=== PATIENT | male | born 1965 | race Caucasian/White ===

== ENCOUNTER 2023-04-11 11:07 | Outpatient (OUT) | payer OTHER, SELFPAY ==
--- NOTE | 2023-04-11 11:24 | XR_ITS ---
The [place] [id number] Patient Name: VANDANA NASCIMENTO MRN: [id number] date: 1965 Sex: M Assigned Patient Location: [facility] Current Patient Location: [facility] Accession/Order Number: [id number] Exam Date: 04/11/2023 11:24 Report Date: 04/11/2023 13:48 At the request of: MELONIE RAZO Procedure: XR ankle GABE min 3V EXAMINATION: XR ankle GABE min 3V HISTORY: Bilateral ankle and foot pain M25.571, M25.572 COMPARISON: No relevant comparison available. FINDINGS: RIGHT FINDINGS: BONES: Prior plate and screw repair of the distal tibia involving the medial margin, lateral margin, and anterior margin of the tibial plafond. Fracture of one of the screws along the anterior tibial plafond. SOFT TISSUES: Prominent calcifications anterior to the tibial plafond; sequela of remote fractures versus heterotopic bone formation secondary to prior trauma. OTHER: Moderate soft tissue swelling surrounding the ankle and distal lower extremity. LEFT FINDINGS: BONES: No fracture, dislocation, bone lesion, or significant joint space narrowing. SOFT TISSUES: Soft tissue calcifications medial to the mid tibial diaphysis, likely sequela of remote injury. OTHER: Negative. IMPRESSION: RIGHT CONCLUSION: Prior surgical repair of the distal tibia with fracture of a single screw along the anterior margin of the tibial plafond. No appreciable acute bone abnormality. LEFT CONCLUSION: No acute bone abnormality or significant degenerative joint disease. Soft tissue calcifications are likely sequela of remote injury. Electronically authenticated by: ALVIN BELTRÁN Date: 04/11/2023 13:48
== END 2023-04-11 11:08 | disposition home or self-care (01) ==
LOC: RAD 11:11
PROVIDERS: PCP Family Medicine; Visit Provider Family Medicine
DX: M25.571 Pain in right ankle and joints of right foot (principal); M25.572 Pain in left ankle and joints of left foot; Z98.890 Other specified postprocedural states; Z96.7 Presence of other bone and tendon implants; T84.116A Breakdown (mechanical) of internal fixation device of bone of right lower leg, initial encounter; M79.89 Other specified soft tissue disorders
CPT/HCPCS: 73610

== ENCOUNTER 2023-05-21 16:54 | Inpatient (IN) | payer OTHER, SELFPAY ==
[2023-05-21 16:56] VITALS: BP 159/99; PULSE 76; RESP 18; TEMP 37.1; O2SAT 97; BMI 25.8
--- NOTE | 2023-05-21 17:45 | ED_ITS ---
HPI - Abdominal Pain General Chief Complaint: Abdominal Pain Stated Complaint: ABDOMINAL PAIN Time Seen by Provider: 05/21/23 17:10 Source: patient Mode of arrival: walk-in Limitations: no limitations History of Present Illness HPI narrative: lower abdominal pain started suddenly yesterday and was quickly associated with nausea without vomiting. Patient denied any diarrhea. He has abdominal bloating and only been passing small amounts of stool for the past 3 days. No flank pain or urinary symptoms. Related Data Home Medications Medication Instructions Recorded Confirmed apixaban 5 mg tablet (Eliquis) 5 mg PO Q12H 05/21/23 05/21/23 atorvastatin 10 mg tablet 10 mg PO DAILY 05/21/23 05/21/23 lacosamide 100 mg tablet 200 mg PO Q12H 05/21/23 05/21/23 lamotrigine 100 mg tablet 300 mg PO Q12H 05/21/23 05/21/23 levothyroxine 125 mcg tablet 125 mcg PO DAILY 05/21/23 05/21/23 (Synthroid) melatonin 5 mg capsule 5 mg PO BEDTIME 05/21/23 05/21/23 metoprolol tartrate 25 mg tablet 12.5 mg PO Q12H 05/21/23 05/21/23 mycophenolate mofetil 250 mg 750 mg PO DAILY 05/21/23 05/21/23 capsule paliperidone 1.5 mg 3 mg PO Q24H 05/21/23 05/21/23 tablet,extended release 24 hr prednisone 5 mg tablet 5 mg PO DAILY 05/21/23 05/21/23 tacrolimus 0.75 mg tablet,extended 3 mg PO DAILY 05/21/23 05/21/23 release 24 hr (Envarsus XR) Allergies Allergy/AdvReac Type Severity Reaction Status Date / Time phenytoin [From Dilantin] Allergy Severe Verified 05/21/23 17:00 Exam Narrative Exam Narrative: Nurses notes and vital signs reviewed and patient is not hypoxic. afebrile General: Well-appearing and in no apparent distress. Skin: Warm, dry, no pallor noted. Eye: Pupils are equal, round and EOMI. No scleral icterus. Ears, Nose, Mouth, and Throat: Oral mucosa is slightly dry Cardiovascular: Regular Rate and Rhythm without murmur, gallop or rub. Respiratory: No accessory muscle use or respiratory distress. Lungs are clear to auscultation, no wheezing, rales or rhonchi Back: No midline thoracic or lumbar vertebral tenderness. No CVA tenderness Musculoskeletal: normal ROM GI: Abdomen is soft, mildly distended. decreased bowel sounds. No masses appreciated. Diffuse lower abdominal tenderness to palpation. No rebound, guarding, or rigidity noted. Neurological: A&O x4. No cranial nerve dysfunction observed. No truncal ataxia. Moves all extremities. Sensation intact. Psychiatric: Cooperative and interactive. Normal mood and affect. Constitutional Vital Signs, click to edit/add: Last Vital Signs Temp 98.8 F 05/21/23 16:56 Pulse 76 05/21/23 16:56 Resp 18 05/21/23 16:56 BP 159/99 H 05/21/23 16:56 Pulse Ox 97 05/21/23 16:56 O2 Del Method Room Air 05/21/23 16:56 Course Vital Signs Vital signs: Vital Signs Temperature 98.8 F 05/21/23 16:56 Pulse Rate 76 05/21/23 16:56 Respiratory Rate 18 05/21/23 16:56 Blood Pressure 159/99 H 05/21/23 16:56 Pulse Oximetry 97 05/21/23 16:56 Oxygen Delivery Method Room Air 05/21/23 16:56 Temperature 98.8 F 05/21/23 16:56 Pulse Rate 76 05/21/23 16:56 Respiratory Rate 18 05/21/23 16:56 Blood Pressure 159/99 H 05/21/23 16:56 Pulse Oximetry 97 05/21/23 16:56 Oxygen Delivery Method Room Air 05/21/23 16:56 MDM - Abdominal Pain MDM Narrative Medical decision making narrative: peripheral IV established and blood drawn and sent for testing. Patient was ordered to undergo CT scanning of the abdomen and pelvis with both oral and IV contrast. He was ordered to receive Zofran and Toradol for his symptoms. the radiologist notified me the CT reveals a high-grade bowel obstruction. I spoke with Dr. Mcghee, the general surgeon on-call, regarding this patient's case. This patient previously underwent appendectomy, umbilical hernia repair and kidney transplantation, for which she continues to take medications for rejection. The patient's surgical and transplant care is through the [facility]. Case discussed with Dr Kerr and he agreed to admit on behalf of the hospitalist, Dr Beck - obs, med/surg. A consult was ordered for Dr Mcghee. Patient is agreeable to admission as results and diagnosis were discussed with the patient and his . Dr Lucero and I discussed the case and she will review the KUB once NG tube is placed Lab Data Attestation: I reviewed the patient's lab results. Labs: Lab Results 05/21/23 Range/Units 17:04 WBC 8.8 (4.0-11.0) 10^3/uL RBC 4.90 (4.70-6.10) 10^6/uL Hgb 14.8 (14.0-18.0) g/dL Hct 44.0 (42.0-54.0) % MCV 89.8 (80.0-94.0) fL MCH 30.2 (25.9-34.0) pg MCHC 33.6 (29.9-35.2) g/dL RDW 13.2 (11.0-15.0) % Plt Count 301 (150-450) 10^3/uL MPV 9.9 (9.5-13.5) fL Neut % (Auto) 68.0 (43.0-75.0) % Lymph % (Auto) 22.1 (20.5-60.0) % [place] % (Auto) 9.1 (1.7-12.0) % Eos % (Auto) 0.3 L (0.9-7.0) % Baso % (Auto) 0.2 (0.2-2.0) % Neut # (Auto) 6.0 (1.4-6.5) 10^3/uL Lymph # (Auto) 2.0 (1.2-3.8) 10^3/uL [place] # (Auto) 0.8 (0.3-0.8) 10^3/uL Eos # (Auto) 0.0 (0.0-0.7) 10^3/uL Baso # (Auto) 0.0 (0.0-0.1) 10^3/uL Abs Immat Gran (auto) 0.03 (0.00-0.03) 10^3/uL Imm/Tot Granulo (auto) 0.3 (0.0-0.5) % Sodium 139 (136-145) mmol/L Potassium 4.9 (3.5-5.1) mmol/L Chloride 102 (98-107) mmol/L Carbon Dioxide 29.4 (21.0-32.0) mmol/L Anion Gap 12.5 BUN 12.0 (7.0-18.0) mg/dL Creatinine 1.43 H (0.70-1.30) mg/dL Est GFR ( Amer) >60 (>=60) Est GFR (Non-Af Amer) 51 L (>=60) BUN/Creatinine Ratio 8.4 Glucose 125 H (74-106) mg/dL Calcium 9.9 (8.5-10.1) mg/dL Total Bilirubin 0.9 (0.2-1.0) mg/dL AST 39 H (15-37) U/L ALT 14 L (16-63) U/L Alkaline Phosphatase 98 (46-116) U/L Total Protein 7.5 (6.4-8.2) g/dL Albumin 3.8 (3.4-5.0) g/dL Globulin 3.7 g/dL Albumin/Globulin Ratio 1.0 Lipase 107.0 (73.0-393.0) U/L Imaging Data CT scan - abdomen: Radiologist's impression: Patient Name: VANDANA NASCIMENTO MRN: [id number] date: 1965 Sex: M Assigned Patient Location: Current Patient Location: Accession/Order Number: [id number] Exam Date: 05/21/2023 18:05 Report Date: 05/21/2023 18:51 At the request of: CARRIE BURT Procedure: CT abdomen pelvis w con EXAM: CT abdomen pelvis w con HISTORY: lower abdominal pain COMPARISON: None. TECHNIQUE: Axial CT imaging was performed through the abdomen and pelvis with intravenous contrast. Multiplanar reformats were performed. Dose reduction techniques were achieved by using automated exposure control and/or adjustment of mA and/or kV according to patient size and/or use of iterative reconstruction technique. FINDINGS: Lung bases: Trace bilateral pleural effusion with bibasilar atelectasis. Mild cardiomegaly. GI upper: Unremarkable. Liver: Normal size and contour. Gallbladder: No significant abnormality. No cholelithiasis. Biliary system: No intra or extrahepatic biliary ductal dilatation. Spleen: Normal size. Pancreas: Unremarkable. Adrenal glands: Normal adrenal glands. Kidneys/ureters: Atrophic kidneys, representing chronic renal failure. Transplant kidney seen in the right iliac fossa. No hydronephrosis. No nephrolithiasis or ureterolithiasis. Vessels: No aneurysm. Infrarenal IVC filter is in place. Status post left common iliac vein stent placement. Lymph Nodes: No lymphadenopathy. Small bowel: There is a transitional point in the mid abdomen (series 3, image 68) with upstream dilatation of the small bowel loops and twisting of the vessels especially superior mesenteric artery and vein (series 3, image [id number]), representing high-grade small bowel obstruction. Bowel wall enhancement is seen.. Colon: No wall thickening or dilatation. There are sigmoid diverticulosis without evidence of acute diverticulitis. Appendix: No findings of appendicitis. Peritoneal cavity: Small to moderate ascites. No pneumoperitoneum. Lower : Unremarkable. Bones: No acute bony abnormality. Soft tissues: No acute finding. Additional findings: None. IMPRESSION: CT evidence of high-grade small bowel obstruction with transitional point and twisted vessels in the mid abdomen. Small to moderate ascites Electronically authenticated by: J LUIS GUEVARA Date: 05/21/2023 18:51 Discharge Plan Discharge Chief Complaint: Abdominal Pain Clinical Impression: Small bowel obstruction Patient Disposition: Admitted as Observation Time of Disposition Decision: 17:00
[2023-05-21 17:59] LABS: Basophils Percent Auto 0.2 % (0.2-2.0); Eosinophils Percent Auto 0.3 % (0.9-7.0); Hemoglobin 14.8 g/dL (14.0-18.0); Immature Granulocytes Abs Auto 0.03 10^3/uL (0.00-0.03); Immature Granulocytes Pct Auto 0.3 % (0.0-0.5); Lymphocytes Percent Auto 22.1 % (20.5-60.0); Mean Corpuscular HGB Conc 33.6 g/dL (29.9-35.2); Mean Corpuscular Hemoglobin 30.2 pg (25.9-34.0); Mean Corpuscular Volume 89.8 fL (80.0-94.0); Mean Platelet Volume 9.9 fL (9.5-13.5); Monocytes Absolute Auto 0.8 10^3/uL (0.3-0.8); Monocytes Percent Auto 9.1 % (1.7-12.0); Platelet Count 301 10^3/uL (150-450); Red Cell Distribution Width 13.2 % (11.0-15.0); White Blood Count 8.8 10^3/uL (4.0-11.0)
[2023-05-21] MEDS: KETOROLAC TROMETHAMINE 30 MG/ML VIAL IVP (17:59)
[2023-05-21] MEDS: 0.9 % SODIUM CHLORIDE 1,000 ML 999 ML IV (17:59)
[2023-05-21] MEDS: ONDANSETRON PF 4 MG/2 ML VIAL IV (17:59)
[2023-05-21 18:10] LABS: Alanine Aminotransferase 14 U/L (16-63); Albumin Level 3.8 g/dL (3.4-5.0); Alkaline Phosphatase 98 U/L (46-116); Anion Gap 12.5; Aspartate Amino Transferase 39 U/L (15-37); BUN Creatinine Ratio 8.4; Bilirubin Total 0.9 mg/dL (0.2-1.0); Calcium 9.9 mg/dL (8.5-10.1); Carbon Dioxide 29.4 mmol/L (21.0-32.0); Chloride 102 mmol/L (98-107); Estimated GFR (African America >60 (>=60); Estimated GFR (Non-African Ame 51 (>=60); Globulin 3.7 g/dL; Glucose 125 mg/dL (74-106); Potassium 4.9 mmol/L (3.5-5.1); Sodium 139 mmol/L (136-145); Total Protein 7.5 g/dL (6.4-8.2)
--- NOTE | 2023-05-21 19:18 | XR_ITS ---
The [address] [address] Patient Name: VANDANA NASCIMENTO MRN: [id number] date: 1965 Sex: M Assigned Patient Location: ER Current Patient Location: ED.MAIN Accession/Order Number: [id number] Exam Date: 05/21/2023 19:30 Report Date: 05/21/2023 20:08 At the request of: CARRIE BURT Procedure: XR abdomen 1V EXAM: XR abdomen 1V HISTORY: ng tube placement COMPARISON: None. TECHNIQUE: AP portable study FINDINGS: The nasogastric tube tip is within the stomach. The sidehole is right at the diaphragmatic hiatus. XR/XR abdomen 1V IMPRESSION: The nasogastric tube tip is within the stomach. Advancing the tube approximately [address] the sidehole well into the stomach. Electronically authenticated by: Kiki MOY Date: 05/21/2023 20:08
[2023-05-21] MEDS: BENZOCAINE 20% SPRAY 57 GM SPRAY CAN MM (19:42)
[2023-05-21 19:56] VITALS: BP 133/83; PULSE 72; RESP 16; O2SAT 96
--- NOTE | 2023-05-21 20:38 | XR_ITS ---
The [address] [address] Patient Name: VANDANA NASCIMENTO MRN: [id number] date: 1965 Sex: M Assigned Patient Location: ER Current Patient Location: ER Accession/Order Number: [id number] Exam Date: 05/21/2023 20:40 Report Date: 05/21/2023 21:05 At the request of: LIA HUERTAS Procedure: XR abdomen 1V EXAM: XR abdomen 1V HISTORY: ng placement COMPARISON: None. TECHNIQUE: Single view FINDINGS: IMPRESSION: Enteric tube has been advanced further. The sidehole is now below the diaphragm. Distended air-filled loops of small bowel. Electronically authenticated by: AIXA HENRY Date: 05/21/2023 21:05
--- NOTE | 2023-05-21 20:43 | PC.NURSE ---
NG tube moved down 5cm at this time, NG tube now at 65 at right nare. Radiology at bedside for xray to check placement of NG since replacement.
[2023-05-21 21:57] VITALS: BP 142/82; PULSE 68; RESP 16; O2SAT 94; BMI 26.2
[2023-05-22] MEDS: ENOXAPARIN SODIUM 80 MG/0.8 ML SYRINGE SUBQ (01:29)
[2023-05-22] MEDS: LACTATED RINGER'S SOLUTION 1,000 ML 100 ML IV ×3 (01:30→23:40)
[2023-05-22 02:32] VITALS: BP 150/78; PULSE 80; RESP 16; TEMP 37.1; O2SAT 94
--- NOTE | 2023-05-22 03:22 | W.PM.TELEPN ---
Progress Note: Subjective Subjective Interval history: CC: Abdominal pain HPI: 58 year old male with history of Kidney transplant on immunosuppressants, appendectomy for ruptured appendix complicated by SBO NG tube decompression, Hernia repair, hypothyroidism, DVT s/p IVC filter L iliac stent on Pradaxa, Seizure disorder who presents with intractable mid abdominal pain, started yesterday 3 pm, severe, radiating throughout abdomen, worse with food intake, no alleviating factors associated with nausea and vomiting. felt feverish with chills this morning, denies aspiration, cough, dysuria had lose stool. denies chest pain, dyspnea. in the ER, temp 100.6 HR 68, BP 142/82, RR 16, Sp02 95% room air. labs near baseline, CT A/P suggest SBO. Patient was given Toradol, Zofran, IV fluids. Surgery consulted recommended NG tube decompression for now. ROS: all ROS negative except for HPI Allergies: Dilantin Home Meds: reviewed and reconciled in chart PMHx: Seizure, Hypothyroid, Kidney transplant, CKD, DVT PSHx: hernia repair, appendectomy, Kidney transplan, Collapsed lung R ear plate, R wrist and ankle fracture repair SHx: denies tobacco, etoh or drug use. Lives with Exam Narrative Exam Narrative: General: sitting up in bed, in mild distress, AO x3 HEENT: NC/AT, wearing eyeglasses, NG tube in place CVS: RRR, no edema Lungs: bilateral air entry, normal respiratory effort GI: abdomen distended, tender, no rebound Neuro: no focal deficits Psych: normal mood good affect Constitutional Vital Signs, click to edit/add: Last Vital Signs Temp 98.7 F 05/22/23 02:32 Pulse 80 05/22/23 02:32 Resp 16 05/22/23 02:32 BP 150/78 H 05/22/23 02:32 Pulse Ox 94 L 05/22/23 02:32 O2 Del Method Room Air 05/22/23 02:32 Progress Note: Objective Labs Labs: Short CBC 05/21/23 Range/Units 17:04 WBC 8.8 (4.0-11.0) 10^3/uL Hgb 14.8 (14.0-18.0) g/dL Hct 44.0 (42.0-54.0) % Plt Count 301 (150-450) 10^3/uL BMP 05/21/23 17:04 Sodium 139 Potassium 4.9 Chloride 102 Carbon Dioxide 29.4 BUN 12.0 Creatinine 1.43 H Glucose 125 H Calcium 9.9 Liver Function 05/21/23 Range/Units 17:04 Total Bilirubin 0.9 (0.2-1.0) mg/dL AST 39 H (15-37) U/L ALT 14 L (16-63) U/L Alkaline Phosphatase 98 (46-116) U/L Albumin 3.8 (3.4-5.0) g/dL Progress Note: A&P Assessment and Plan (1) Small bowel obstruction: Plan # Small bowel obstruction, suspect due to adhesions - Admit to med surg bed - NG tube decompression, encourage ambulation - 1,000 cc out in ED, and since midnight another 1L for total 2L output - IV fluid hydration - analgesics and antiemetics as needed - serial abdominal exams - KUB in am - Surgery notified by ED, on board #Renal transplant/CKD # Immunosuppressed status - fluid hydration, resume home antirejection medications, consider IV steroids if unable to give home antirejection's - reported subjective fevers. check blood cultures, low threshold for antibiotics for any fevers #Hx of DVT s/p iliac stent, IVC filter on Pradaxa - Lovenox for now as patient NPO # Seizure disorder - Transition Vimpat oral to IV route - Ativan prn - seizure precautions - avoid medications that lower seizure threshold # Hypothyroidism- resume home synthroid # hypercholesterolemia- home statin when on diet # hypertension- monitor vitals closely, holding lopressor 12.5 BID for now FULL CODE DVT PPX Lovenox Communications: Discussed with ER physician, bedside nurse. patient updated with plan of care, all questions answered to their satisfaction disposition: home when medically st ADDENDUM: Nurse reports gastric content now with green maroon color - Rule out GI bleed. hold lovenox, anticoagulants, check H/H start IV Protonix Telemedicine Attestation Telemedicine Attestation I conducted this encounter from [[place]] via secure live, [id number] video conference with the patient, located at [facility] with [Patient and treatment team]. Prior to the interview, the risks and benefits of telemedicine were discussed with the patient and verbal consent was obtained.
[2023-05-22] MEDS: PANTOPRAZOLE SODIUM 40 MG VIAL IV ×2 (04:18→14:35)
[2023-05-22 04:34] LABS: Basophils Percent Auto 0.4 % (0.2-2.0); Eosinophils Absolute Auto 0.1 10^3/uL (0.0-0.7); Eosinophils Percent Auto 1.8 % (0.9-7.0); Hematocrit 38.8 % (42.0-54.0); Immature Granulocytes Abs Auto 0.02 10^3/uL (0.00-0.03); Immature Granulocytes Pct Auto 0.3 % (0.0-0.5); Lymphocytes Absolute Auto 2.9 10^3/uL (1.2-3.8); Lymphocytes Percent Auto 36.5 % (20.5-60.0); Mean Corpuscular HGB Conc 33.5 g/dL (29.9-35.2); Mean Corpuscular Hemoglobin 30.2 pg (25.9-34.0); Mean Platelet Volume 9.4 fL (9.5-13.5); Monocytes Absolute Auto 0.9 10^3/uL (0.3-0.8); Monocytes Percent Auto 11.3 % (1.7-12.0); Neutrophils Absolute Auto 3.9 10^3/uL (1.4-6.5); Neutrophils Percent Auto 49.7 % (43.0-75.0); Platelet Count 248 10^3/uL (150-450); Red Blood Count 4.31 10^6/uL (4.70-6.10); Red Cell Distribution Width 13.1 % (11.0-15.0); White Blood Count 7.8 10^3/uL (4.0-11.0)
[2023-05-22 05:03] LABS: Albumin Globulin Ratio 1.1; Albumin Level 3.2 g/dL (3.4-5.0); Alkaline Phosphatase 86 U/L (46-116); Anion Gap 9.5; Aspartate Amino Transferase 12 U/L (15-37); BUN Creatinine Ratio 9.8; Bilirubin Total 0.8 mg/dL (0.2-1.0); Calcium 9.4 mg/dL (8.5-10.1); Chloride 105 mmol/L (98-107); Estimated GFR (African America 53 (>=60); Estimated GFR (Non-African Ame 44 (>=60); Glucose 91 mg/dL (74-106); Potassium 3.5 mmol/L (3.5-5.1); Sodium 142 mmol/L (136-145); Total Protein 6.2 g/dL (6.4-8.2)
[2023-05-22 05:17] LABS: Alanine Aminotransferase 15 U/L (16-63)
[2023-05-22] MEDS: NON-FORMULARY 1 EACH (Mycophenolate Mofetil 250 mg capsule) 750 EACH PO ×2 (10:14→22:19)
[2023-05-22] MEDS: PREDNISONE 5 MG TABLET PO (10:15)
[2023-05-22] MEDS: TACROLIMUS 1 MG PO (10:16)
[2023-05-22] MEDS: FAMOTIDINE/PF 20 MG/2 ML VIAL IV ×2 (10:25→22:19)
--- NOTE | 2023-05-22 11:54 | PM.HP ---
H&P: HPI History of Present Illness Chief complaint: Abdominal pain Narrative: 58 y/o male to ER with abdominal pain. History of kidney transplant and follows with specialists. Sudden onset of pain yesterday. Pain and cramping across lower abdomen. Severe nausea and later developed emesis. Abdomen felt bloated and distended. Reports only small BM past few days. Afebrile. Increased pain and to ER. Afebrile and normal WBC. CT showed SBO and NG placed. Admitted for treatment. Symptoms improved this am. Mild pain and no further nausea. Given PO medication this am and NG clamped for past 2 hours. Review of Systems ROS Constitutional Denies: fever, chills or night sweats Cardiovascular Denies: chest pain, palpitations or edema Respiratory Denies: shortness of breath, cough or wheezing Gastrointestinal Reports: abdominal pain, nausea and vomiting; Denies: diarrhea Genitourinary Denies: painful urination [facility] Medical History (Updated 05/22/23 @ 10:11 by Wenceslao Beck MD) Surgical History (Updated 05/22/23 @ 10:11 by Wenceslao Beck MD) Family History (Updated 05/21/23 @ 22:43 by Maryana King) Father Family history of cancer Family history of hypertension Mother Family history of COPD (chronic obstructive pulmonary disease) Social History (Updated 05/21/23 @ 22:45 by Maryana King) Within the past year, how often did you have a drink containing alcohol: never Within the past year, how often did you have six or more drinks on one occasion: never Score interpretation: A score less than 4 is consistent with normal alcohol consumption. 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 [employer] Known occupational exposures/hazards: No Highest level of school completed/degree received: Bachelor's degree Do you want help with school or training: No Are you now , , , , never or living with a partner: In a typical week, how many times do you talk on the telephone with family, friends, or neighbors: 3 or more times per week How often do you get together with friends or relatives: 3 or more times per week How often do you attend episcopalian or mormonism services: 4 or more times per year Do you belong to any clubs or organizations such as episcopalian groups unions, fraternal or athletic groups, or school groups: no Total score: 3 Score interpretation: A score of greater than or equal to 2 indicates the lowest level of social isolation. Little interest or pleasure in doing things: not at all Feeling down, depressed, or hopeless: not at all Feel stressed/tense/nervous/anxious/difficulty sleeping: not at all Due to disability, difficulty making decisions: No Do you think of yourself as: straight/heterosexual Gender Identity: male Meds Home Medications and Allergies Home Medications Medication Instructions Recorded Confirmed Type apixaban 5 mg tablet (Eliquis) 5 mg PO Q12H 05/21/23 05/21/23 History atorvastatin 10 mg tablet 10 mg PO DAILY 05/21/23 05/21/23 History lacosamide 100 mg tablet 200 mg PO Q12H 05/21/23 05/21/23 History lamotrigine 100 mg tablet 300 mg PO Q12H 05/21/23 05/21/23 History levothyroxine 125 mcg tablet 125 mcg PO DAILY 05/21/23 05/21/23 History (Synthroid) melatonin 5 mg capsule 5 mg PO BEDTIME 05/21/23 05/21/23 History metoprolol tartrate 25 mg tablet 12.5 mg PO Q12H 05/21/23 05/21/23 History mycophenolate mofetil 250 mg 750 mg PO Q12H 05/21/23 05/22/23 History capsule prednisone 5 mg tablet 5 mg PO DAILY 05/21/23 05/21/23 History tacrolimus 0.75 mg tablet,extended 1.5 mg PO DAILY 05/21/23 05/22/23 History release 24 hr (Envarsus XR) paliperidone 3 mg tablet,extended 3 mg PO DAILY 05/22/23 05/22/23 History release 24 hr tacrolimus 1 mg tablet,extended 1 mg PO DAILY 05/22/23 05/22/23 History release 24 hr (Envarsus XR) Allergies Allergy/AdvReac Type Severity Reaction Status Date / Time phenytoin [From Dilantin] Allergy Severe Verified 05/21/23 17:00 Exam Constitutional Vital Signs, click to edit/add: Last Vital Signs Temp 98.7 F 05/22/23 02:32 Pulse 80 05/22/23 02:32 Resp 16 05/22/23 02:32 BP 150/78 H 05/22/23 02:32 Pulse Ox 94 L 05/22/23 02:32 O2 Del Method Room Air 05/22/23 02:32 Documenting provider has reviewed patient's vital signs: yes Common normals: no apparent distress, oriented x3 and alert HENMT Common normals: normocephalic Eye Common normals: PERRL and EOMs intact bilaterally Respiratory Common normals: normal respiratory effort and clear to auscultation bilaterally Cardio Common normals: regular rate, regular rhythm, no gallops, no murmurs and no rub GI Auscultation: normoactive bowel sounds Palpation: soft and tender (Mild TTP across lower abdomen); no guarding Extremity Common normals: no pedal edema Results Labs Labs: Short CBC 05/21/23 05/22/23 Range/Units 17:04 03:30 WBC 8.8 7.8 (4.0-11.0) 10^3/uL Hgb 14.8 13.0 L (14.0-18.0) g/dL Hct 44.0 38.8 L (42.0-54.0) % Plt Count 301 248 (150-450) 10^3/uL BMP 05/21/23 05/22/23 17:04 03:30 Sodium 139 142 Potassium 4.9 3.5 Chloride 102 105 Carbon Dioxide 29.4 31.0 BUN 12.0 16.0 Creatinine 1.43 H 1.63 H Glucose 125 H 91 Calcium 9.9 9.4 Liver Function 05/21/23 05/22/23 Range/Units 17:04 03:30 Total Bilirubin 0.9 0.8 (0.2-1.0) mg/dL AST 39 H 12 L (15-37) U/L ALT 14 L 15 L (16-63) U/L Alkaline Phosphatase 98 86 (46-116) U/L Albumin 3.8 3.2 L (3.4-5.0) g/dL Imaging CT scan - abdomen: Attestation: I have reviewed the pertinent imaging results. Assessment and Plan Assessment and Plan (1) Small bowel obstruction: (2) HTN (hypertension): (3) Kidney transplanted: (4) Seizure disorder: (5) History of DVT (deep vein thrombosis): Plan Consult general surgery. Symptoms improved after NG placement and currently clamped. Check x-ray small bowel. Resumed some oral medication and if appears SBO resolved can resume all home medication. Further plan per surgery. May be able to try clear liquids if contrast goes to colon. Will need 2 midnights in the hospital.
--- NOTE | 2023-05-22 12:29 | PM.GSCN ---
History of Present Illness Consult details Consult date: 05/22/23 Narrative: Patient is a 58-year-old male who presented to the emergency department yesterday with complaints of abdominal pain nausea and vomiting. Past surgical history significant for kidney transplant as well as hernia repair and aortoiliac stenting. He denies any similar prior episodes. Through the Emergency Department CT of the abdomen and pelvis revealed findings consistent with a high-grade small bowel obstruction. NG tube was placed with initial significant output. This has diminished and currently the patient denies any pain. NG tube is currently clamped and small bowel follow-through has been ordered. Review of Systems ROS Status of ROS 10 or more systems reviewed and unremarkable except as noted in history and below [facility] Medical History (Updated 05/22/23 @ 10:11 by Wenceslao Beck MD) Surgical History (Updated 05/22/23 @ 10:11 by Wenceslao Beck MD) Family History (Updated 05/21/23 @ 22:43 by Maryana King) Father Family history of cancer Family history of hypertension Mother Family history of COPD (chronic obstructive pulmonary disease) Social History (Updated 05/21/23 @ 22:45 by Maryana King) Within the past year, how often did you have a drink containing alcohol: never Within the past year, how often did you have six or more drinks on one occasion: never Score interpretation: A score less than 4 is consistent with normal alcohol consumption. Smoking status: Never smoker Second hand tobacco smoke exposure: No Non-prescribed substance use: denies use Previous occupational history: [employer] Known occupational exposures/hazards: No Highest level of school completed/degree received: Bachelor's degree Do you want help with school or training: No Are you now , , , , never or living with a partner: In a typical week, how many times do you talk on the telephone with family, friends, or neighbors: 3 or more times per week How often do you get together with friends or relatives: 3 or more times per week How often do you attend advent or hoahaoism services: 4 or more times per year Do you belong to any clubs or organizations such as advent groups unions, fraternal or athletic groups, or school groups: no Total score: 3 Score interpretation: A score of greater than or equal to 2 indicates the lowest level of social isolation. Little interest or pleasure in doing things: not at all Feeling down, depressed, or hopeless: not at all Feel stressed/tense/nervous/anxious/difficulty sleeping: not at all Due to disability, difficulty making decisions: No Do you think of yourself as: straight/heterosexual Gender Identity: male Meds Home Medications and Allergies Home Medications Medication Instructions Recorded Confirmed Type apixaban 5 mg tablet (Eliquis) 5 mg PO Q12H 05/21/23 05/21/23 History atorvastatin 10 mg tablet 10 mg PO DAILY 05/21/23 05/21/23 History lacosamide 100 mg tablet 200 mg PO Q12H 05/21/23 05/21/23 History lamotrigine 100 mg tablet 300 mg PO Q12H 05/21/23 05/21/23 History levothyroxine 125 mcg tablet 125 mcg PO DAILY 05/21/23 05/21/23 History (Synthroid) melatonin 5 mg capsule 5 mg PO BEDTIME 05/21/23 05/21/23 History metoprolol tartrate 25 mg tablet 12.5 mg PO Q12H 05/21/23 05/21/23 History mycophenolate mofetil 250 mg 750 mg PO Q12H 05/21/23 05/22/23 History capsule prednisone 5 mg tablet 5 mg PO DAILY 05/21/23 05/21/23 History tacrolimus 0.75 mg tablet,extended 1.5 mg PO DAILY 05/21/23 05/22/23 History release 24 hr (Envarsus XR) paliperidone 3 mg tablet,extended 3 mg PO DAILY 05/22/23 05/22/23 History release 24 hr tacrolimus 1 mg tablet,extended 1 mg PO DAILY 05/22/23 05/22/23 History release 24 hr (Envarsus XR) Allergies Allergy/AdvReac Type Severity Reaction Status Date / Time phenytoin [From Dilantin] Allergy Severe Verified 05/21/23 17:00 Exam Constitutional Vital Signs, click to edit/add: Last Vital Signs Temp 98.7 F 05/22/23 02:32 Pulse 80 05/22/23 02:32 Resp 16 05/22/23 02:32 BP 150/78 H 05/22/23 02:32 Pulse Ox 94 L 05/22/23 02:32 O2 Del Method Room Air 05/22/23 02:32 Common normals: no apparent distress General appearance: cooperative [facility] Common normals: normocephalic Neck & C-Spine Common normals: supple Lymph Lymphatic: no lymphadenopathy noted GI Common normals: Normal to inspection, nondistended, normoactive bowel sounds present, soft to palpation and non-tender Extremity Common normals: normal to inspection Neuro Common normals: oriented x3 Psych Common normals: mental status grossly normal Results Labs Labs: Abnormal lab results 05/21/23 05/22/23 Range/Units 17:04 03:30 RBC 4.31 L (4.70-6.10) 10^6/uL Hgb 13.0 L (14.0-18.0) g/dL Hct 38.8 L (42.0-54.0) % MPV 9.4 L (9.5-13.5) fL Eos % (Auto) 0.3 L (0.9-7.0) % [place] # (Auto) 0.9 H (0.3-0.8) 10^3/uL Creatinine 1.43 H 1.63 H (0.70-1.30) mg/dL Est GFR ( Amer) 53 L (>=60) Est GFR (Non-Af Amer) 51 L 44 L (>=60) Glucose 125 H (74-106) mg/dL AST 39 H 12 L (15-37) U/L ALT 14 L 15 L (16-63) U/L Total Protein 6.2 L (6.4-8.2) g/dL Albumin 3.2 L (3.4-5.0) g/dL Diabetes panel 05/21/23 05/22/23 Range/Units 17:04 03:30 Sodium 139 142 (136-145) mmol/L Potassium 4.9 3.5 (3.5-5.1) mmol/L Chloride 102 105 (98-107) mmol/L Carbon Dioxide 29.4 31.0 (21.0-32.0) mmol/L BUN 12.0 16.0 (7.0-18.0) mg/dL Creatinine 1.43 H 1.63 H (0.70-1.30) mg/dL Glucose 125 H 91 (74-106) mg/dL Calcium 9.9 9.4 (8.5-10.1) mg/dL AST 39 H 12 L (15-37) U/L ALT 14 L 15 L (16-63) U/L Alkaline Phosphatase 98 86 (46-116) U/L Total Protein 7.5 6.2 L (6.4-8.2) g/dL Albumin 3.8 3.2 L (3.4-5.0) g/dL Calcium panel 05/21/23 05/22/23 Range/Units 17:04 03:30 Calcium 9.9 9.4 (8.5-10.1) mg/dL Albumin 3.8 3.2 L (3.4-5.0) g/dL Pituitary panel 05/21/23 05/22/23 Range/Units 17:04 03:30 Sodium 139 142 (136-145) mmol/L Potassium 4.9 3.5 (3.5-5.1) mmol/L Chloride 102 105 (98-107) mmol/L Carbon Dioxide 29.4 31.0 (21.0-32.0) mmol/L BUN 12.0 16.0 (7.0-18.0) mg/dL Creatinine 1.43 H 1.63 H (0.70-1.30) mg/dL Glucose 125 H 91 (74-106) mg/dL Calcium 9.9 9.4 (8.5-10.1) mg/dL Adrenal panel 05/21/23 05/22/23 Range/Units 17:04 03:30 Sodium 139 142 (136-145) mmol/L Potassium 4.9 3.5 (3.5-5.1) mmol/L Chloride 102 105 (98-107) mmol/L Carbon Dioxide 29.4 31.0 (21.0-32.0) mmol/L BUN 12.0 16.0 (7.0-18.0) mg/dL Creatinine 1.43 H 1.63 H (0.70-1.30) mg/dL Glucose 125 H 91 (74-106) mg/dL Calcium 9.9 9.4 (8.5-10.1) mg/dL Total Bilirubin 0.9 0.8 (0.2-1.0) mg/dL AST 39 H 12 L (15-37) U/L ALT 14 L 15 L (16-63) U/L Alkaline Phosphatase 98 86 (46-116) U/L Total Protein 7.5 6.2 L (6.4-8.2) g/dL Albumin 3.8 3.2 L (3.4-5.0) g/dL All other labs normal. Imaging Abdomen CT scan report/results: image reviewed Assessment and Plan Assessment and Plan (1) Small bowel obstruction: Assessment and Plan: With the above findings we will leave the NG tube clamped. We will await the results of the small bowel follow through although clinically the patient appears significantly improved and possibly resolved the small bowel obstruction. If imaging is unremarkable may discontinue NG tube and initiate clear liquids. (2) HTN (hypertension): (3) Kidney transplanted: (4) Seizure disorder: (5) History of DVT (deep vein thrombosis):
--- NOTE | 2023-05-22 12:45 | FL_ITS ---
The [address] [address] Patient Name: VANDANA NASCIMENTO MRN: [id number] date: 1965 Sex: M Assigned Patient Location: ICU Current Patient Location: ICU Accession/Order Number: [id number] Exam Date: 05/22/2023 13:00 Report Date: 05/22/2023 16:46 At the request of: GENIE WALDRON Procedure: FL small bowel EXAM: FL small bowel HISTORY: SBO COMPARISON: 05/21/2023 TECHNIQUE: Abdominal X-ray, 1 view FINDINGS: Support devices: IVC filter is seen at L2-L3 level. Status post left common iliac vein stent placement. Bowel: Oral contrast is seen throughout the small bowel loops. No significant interval change in the small bowel loop distention. Additional findings: None. FL/FL small bowel IMPRESSION: Oral contrast is seen throughout the small bowel loops. No significant interval change in the small bowel loop distention. Follow-up is recommended. Electronically authenticated by: J LUIS GUEVARA Date: 05/22/2023 16:46
[2023-05-22 14:40] VITALS: BP 129/83; PULSE 62; RESP 16; TEMP 36.4; O2SAT 97
[2023-05-22 22:00] VITALS: BP 148/85; PULSE 73; TEMP 36.9; O2SAT 95
[2023-05-22] MEDS: ENOXAPARIN SODIUM 40 MG/0.4 ML SYRINGE SUBQ (22:19)
[2023-05-23] MEDS: PANTOPRAZOLE SODIUM 40 MG VIAL IV (03:00)
--- NOTE | 2023-05-23 04:00 | XR_ITS ---
The [place] [id number] Patient Name: VANDANA NASCIMENTO MRN: [id number] date: 1965 Sex: M Assigned Patient Location: MS Current Patient Location: MS Accession/Order Number: [id number] Exam Date: 05/23/2023 05:40 Report Date: 05/23/2023 06:28 At the request of: GENIE WALDRON Procedure: XR abdomen min 2V EXAMINATION: XR abdomen min 2V HISTORY: SBO COMPARISON: Fluoroscopy small bowel series 05/22/2023 FINDINGS: BOWEL GAS PATTERN: Oral contrast is passed through the entire small bowel and is present within the colon extending to level of rectum. Several diverticula involving the sigmoid colon. No abnormal bowel dilation, obstruction, or extravasation. CALCIFICATIONS: None significant. OTHER: Nasogastric tube within fundus of stomach. Endovascular stent within the left common and external iliac vein. XR/XR abdomen min 2V IMPRESSION: 1. No bowel obstruction. 2. Mild diverticulosis. Electronically authenticated by: ALVIN BELTRÁN Date: 05/23/2023 06:28
[2023-05-23 04:57] LABS: Basophils Percent Auto 0.5 % (0.2-2.0); Eosinophils Absolute Auto 0.2 10^3/uL (0.0-0.7); Eosinophils Percent Auto 3.6 % (0.9-7.0); Hematocrit 38.7 % (42.0-54.0); Hemoglobin 12.5 g/dL (14.0-18.0); Immature Granulocytes Abs Auto 0.02 10^3/uL (0.00-0.03); Immature Granulocytes Pct Auto 0.3 % (0.0-0.5); Lymphocytes Absolute Auto 2.8 10^3/uL (1.2-3.8); Lymphocytes Percent Auto 41.3 % (20.5-60.0); Mean Corpuscular HGB Conc 32.3 g/dL (29.9-35.2); Mean Corpuscular Hemoglobin 30.1 pg (25.9-34.0); Mean Corpuscular Volume 93.3 fL (80.0-94.0); Mean Platelet Volume 10.7 fL (9.5-13.5); Monocytes Absolute Auto 0.7 10^3/uL (0.3-0.8); Monocytes Percent Auto 10.1 % (1.7-12.0); Neutrophils Percent Auto 44.2 % (43.0-75.0); Platelet Count 132 10^3/uL (150-450); Red Blood Count 4.15 10^6/uL (4.70-6.10); Red Cell Distribution Width 12.9 % (11.0-15.0); White Blood Count 6.7 10^3/uL (4.0-11.0)
[2023-05-23 05:13] LABS: Alanine Aminotransferase 12 U/L (16-63); Albumin Globulin Ratio 0.9; Albumin Level 2.8 g/dL (3.4-5.0); Alkaline Phosphatase 82 U/L (46-116); Anion Gap 11.1; Aspartate Amino Transferase 20 U/L (15-37); Calcium 8.8 mg/dL (8.5-10.1); Carbon Dioxide 26.8 mmol/L (21.0-32.0); Chloride 105 mmol/L (98-107); Estimated GFR (African America >60 (>=60); Estimated GFR (Non-African Ame 50 (>=60); Globulin 3.2 g/dL; Glucose 78 mg/dL (74-106); Potassium 3.9 mmol/L (3.5-5.1); Sodium 139 mmol/L (136-145)
[2023-05-23] MEDS: LEVOTHYROXINE SODIUM 125 MCG TABLET PO (05:32)
[2023-05-23 05:36] VITALS: BP 144/80; PULSE 64; TEMP 37.1; O2SAT 92
[2023-05-23 08:00] VITALS: RESP 16
[2023-05-23] MEDS: FAMOTIDINE/PF 20 MG/2 ML VIAL IV (08:30)
[2023-05-23] MEDS: APIXABAN 5 MG TABLET PO (09:30)
[2023-05-23] MEDS: METOPROLOL TARTRATE 25 MG TABLET 12.5 MG PO (09:31)
[2023-05-23] MEDS: LAMOTRIGINE 100 MG TABLET 300 MG PO (09:31)
[2023-05-23] MEDS: NON-FORMULARY 1 EACH (Mycophenolate Mofetil 250 mg capsule) 750 EACH PO (09:32)
[2023-05-23] MEDS: PREDNISONE 5 MG TABLET PO (09:33)
[2023-05-23] MEDS: TACROLIMUS 1 MG PO (09:34)
[2023-05-23] MEDS: LACOSAMIDE 50 MG TABLET 200 MG PO (10:33)
--- NOTE | 2023-05-23 10:49 | P.DS_ITS ---
DS: Providers Provider Date of admission: 05/21/23 21:37 Primary care physician: Saima Walsh MD Consults: 05/21/23 19:17 Consult to General Surgeon Routine Consulting Provider: Rogerio Mcghee Attending physician on discharge: Shaikh Magaly Discharging clinician: Shaikh Magaly DS: Diagnosis Discharge Diagnosis (1) Small bowel obstruction: Assessment and plan: Resolved with conservative measures. XR Small bowel showed resolution of SBO. Tolerating liquid diet. Denies nausea/vomiting. No BM yet but passing gas. Stable for discharge. (2) HTN (hypertension): Assessment and plan: At goal. C/w home medications (3) Kidney transplanted: Assessment and plan: s/p renal transplant. C/w immunosuppresion as before. (4) Seizure disorder: Assessment and plan: Poorly controlled. Being scheduled for outpatient Frontal lobectomy at [facility]. (5) History of DVT (deep vein thrombosis): Assessment and plan: On Eliquis for AC. c/w same (6) CKD (chronic kidney disease) stage 3, GFR 30-59 ml/min: Assessment and plan: CKD 3 after renal transplant. Cr at baseline. Monitor. (7) Hyperlipemia: Assessment and plan: C/w statin (8) Hypothyroid: Assessment and plan: C/w levothyroxine DS: Summary Hospital Course Hospital Course: Patient admitted for SBO. Started on NGT with intermittent suction. Symptoms managed conservatively. Received anti emetics, IV fluids. XR abdominal series from this morning - showed resolution of SBO. Passing gas and has no GI symptoms to offer today. Patient tolerated liquid diet and doing well. Remove NGT. Patient educated on signs and symptoms that should prompt him to seek medical care. Stable for discharge. Status at Discharge Functional status at discharge: independent ambulation Overall status at discharge: patient is back to baseline Time Spent with Patient Time attestation: Total time spent providing and/or coordinating discharge services: Time spent: greater than 30 minutes Exam Constitutional Vital Signs, click to edit/add: Last Vital Signs Temp 98.7 F 05/23/23 05:36 Pulse 64 05/23/23 05:36 Resp 16 05/23/23 08:00 BP 144/80 H 05/23/23 05:36 Pulse Ox 92 L 05/23/23 05:36 O2 Del Method Room Air 05/23/23 05:36 Documenting provider has reviewed patient's vital signs: yes Common normals: no apparent distress and oriented x3 HENMT Common normals: normocephalic and head/scalp atraumatic Head and scalp: normocephalic and atraumatic Eye Common normals: conjunctivae normal and no scleral icterus Conjunctiva: conjunctiva(e) normal Respiratory Common normals: normal respiratory effort and clear to auscultation bilaterally Auscultation: clear to auscultation bilaterally Cardio Common normals: regular rate, regular rhythm, S1 normal heart sound and S2 normal heart sound Rate: regular rate Rhythm: regular rhythm Heart sounds: S1 normal and S2 normal GI Common normals: Normal to inspection, nondistended, normoactive bowel sounds present, soft to palpation, non-tender and no hepatosplenomegaly Palpation: soft and no hepatosplenomegaly Extremity Common normals: no clubbing, cyanosis or edema Neuro Common normals: oriented x3, moves all extremities, no focal motor deficits and no sensory deficits noted Psych Psychiatry clinicians, please identify where your Mental Status Exam is documented: Mental Status Exam documented in the separate MSE Common normals: mental status grossly normal, thought process normal, denies hallucinations, denies homicidal ideation and denies suicidal ideation Thought process: normal thought process DS: Data Data Completed and Pending Labs on day of discharge: Labs from last 24 hours 05/23/23 04:29 WBC 6.7 RBC 4.15 L Hgb 12.5 L Hct 38.7 L MCV 93.3 MCH 30.1 MCHC 32.3 RDW 12.9 Plt Count 132 L MPV 10.7 Neut % (Auto) 44.2 Lymph % (Auto) 41.3 [place] % (Auto) 10.1 Eos % (Auto) 3.6 Baso % (Auto) 0.5 Neut # (Auto) 3.0 Lymph # (Auto) 2.8 [place] # (Auto) 0.7 Eos # (Auto) 0.2 Baso # (Auto) 0.0 Abs Immat Gran (auto) 0.02 Imm/Tot Granulo (auto) 0.3 Sodium 139 Potassium 3.9 Chloride 105 Carbon Dioxide 26.8 Anion Gap 11.1 BUN 19.0 H Creatinine 1.46 H Est GFR ( Amer) >60 Est GFR (Non-Af Amer) 50 L BUN/Creatinine Ratio 13.0 Glucose 78 Calcium 8.8 Total Bilirubin 1.0 AST 20 ALT 12 L Alkaline Phosphatase 82 Total Protein 6.0 L Albumin 2.8 L Globulin 3.2 Albumin/Globulin Ratio 0.9 Discharge Plan Discharge Disposition: Home, Self-Care Discharge Medications: Continued Eliquis 5 mg tablet 5 mg PO Q12H atorvastatin 10 mg tablet 10 mg PO DAILY lacosamide 100 mg tablet 200 mg PO Q12H lamotrigine 100 mg tablet 300 mg PO Q12H levothyroxine [Synthroid] 125 mcg tablet 125 mcg PO DAILY metoprolol tartrate 25 mg tablet 12.5 mg PO Q12H mycophenolate mofetil 250 mg capsule 750 mg PO Q12H Rx Instructions: Q12HRS PER RETAIL FILL HX - LAST FILLED 04/06/23 #180 FOR A 30 DAY SUPPLY prednisone 5 mg tablet 5 mg PO DAILY Envarsus XR 0.75 mg tablet extended release 24 hr 1.5 mg PO DAILY Patient Comments: BROUGHT IN PATIENTS MEDICATIONS - PER RX BOTTLE 2 TABS PO Q24HRS melatonin 5 mg capsule 5 mg PO BEDTIME Envarsus XR 1 mg tablet extended release 24 hr 1 mg PO DAILY Patient Comments: BROUGTH IN PATIENT MEDS - PER BOTTLE 1 TAB PO Q24HRS Rx Instructions: must be taken on empty stomach paliperidone 3 mg tablet extended release 24hr 3 mg PO DAILY Patient Comments: BROUGHT IN PATIENT MEDS - PER BOTTLE 3MG (1TAB) PO QD Forms: Portal Instructions
--- NOTE | 2023-05-23 11:32 | CM.NOTE ---
Rounds made with , pt ok for discharge to home today. Script written for walker and pt in agreement for HH. Pt also will go to daughter's house at discharge for more assistance.
--- NOTE | 2023-05-23 11:36 | CM.NOTE ---
Rounds made with Dr. Mckenzie, increase diet today and if pt tolerates diet may discharge to home. No discharge needs identified.
[2023-05-23 11:37] VITALS: BMI 26.1
--- NOTE | 2023-05-23 11:48 | DIETREC ---
Tolerated clear liquid diet today. Advance diet as tolerated.
--- NOTE | 2023-05-26 14:39 | CM.DCFOLLOWU ---
Pt having brain surgery for seizures.
== END 2023-05-23 14:18 | disposition home or self-care (01) | DRG 389 ==
LOC: ER 19:17 → MS 05-22 00:32 → ICU 05-22 20:51 → MS 05-23 10:56 → ICU 05-25 15:21 → MS 05-25 15:21
PROVIDERS: Internal Medicine; Admitting Provider Family Medicine; Emergency Provider Emergency Medicine; PCP Family Medicine; Visit Provider Internal Medicine
DX: K56.609 Unspecified intestinal obstruction, unspecified as to partial versus complete obstruction (principal); Z94.0 Kidney transplant status; G40.909 Epilepsy, unspecified, not intractable, without status epilepticus; I12.9 Hypertensive chronic kidney disease with stage 1 through stage 4 chronic kidney disease, or unspecified chronic kidney disease; N18.30 Chronic kidney disease, stage 3 unspecified; E03.9 Hypothyroidism, unspecified; E78.5 Hyperlipidemia, unspecified; Z86.718 Personal history of other venous thrombosis and embolism; Z79.01 Long term (current) use of anticoagulants; Z79.890 Hormone replacement therapy; Z79.899 Other long term (current) drug therapy
CPT/HCPCS: 36415; 74018; 74019; 74177; 74250; 80053; 83690; 83735; 85014; 85018; 85025; 96365; 96366; 96372; 96375; 96376; 99285; G0378; Q3014; Q9967

== ENCOUNTER 2023-09-16 07:19 | Outpatient (RCR) | payer OTHER, MEDICARE, SELFPAY ==
[2023-09-15] MEDS: REMDESIVIR 200 MG in 0.9 % SODIUM CHLORIDE 250 ML 250 MG IV (14:32)
[2023-09-15 14:38] VITALS: BP 132/74; PULSE 72; RESP 18; TEMP 36.6; O2SAT 98
[2023-09-15 15:33] VITALS: BP 116/72; PULSE 66; RESP 18; TEMP 36.3; O2SAT 95
--- NOTE | 2023-09-15 15:46 | PC.NURSE ---
1540 Remdesivir infused flushed tubing with 30 ml of ns. patient tolerated well without any s/s of reaction. IV saline locked, secured with coban.
--- NOTE | 2023-09-15 15:49 | PC.NURSE ---
patient released ambulatory to private auto.
--- NOTE | 2023-09-15 16:06 | PC.NURSE ---
Released ambulatory to private auto with spouse.
[2023-09-16 12:35] VITALS: BP 118/79; PULSE 98; RESP 18; TEMP 35.5; O2SAT 99
[2023-09-16] MEDS: REMDESIVIR 100 MG in 0.9 % SODIUM CHLORIDE 100 ML 200 MG IV (12:38)
--- NOTE | 2023-09-16 12:46 | PC.NURSE ---
1230 met patient at main entrance, escorted to room 206. patient wearing mask, patient states he feels much better today. IV site left inner forearm intact. flushes easily. site clear. IV remdesivir initiated. sitting in recliner.
[2023-09-17] MEDS: REMDESIVIR 100 MG in 0.9 % SODIUM CHLORIDE 100 ML 200 MG IV (12:55)
== END 2023-09-17 15:00 | disposition home or self-care (01) ==
LOC: INF 07:19
PROVIDERS: PCP Family Medicine; Visit Provider Family Medicine
DX: U07.1 COVID-19 (principal)
CPT/HCPCS: 51702; 96365; J0248

== ENCOUNTER 2024-03-17 19:54 | Inpatient (IN) | payer OTHER, MEDICARE, SELFPAY ==
[2024-03-17] VITALS (8 sets, daily range): BP systolic 147–164; BP diastolic 83–101; PULSE 71–84; TEMP 36.6; O2SAT 73–99; BMI 27.3
--- NOTE | 2024-03-17 22:14 | ECG_ITS ---
The [facility] Test Date: 2024-03-17 Pat Name: VANDANA NASCIMENTO Department: Room: - Gender: Male Punch Hand: : 1965 Requested By: MELONIE RAZO Order Number: [id number] Reading MD: OSCAR CHAMBERS Measurements Intervals [place] Rate: 69 P: 56 UT: 162 QRS: 19 QRSD: 84 T: 21 QT: 346 QTc: 365 Interpretive Statements 1100 Sinus rhythm 9110 normal ECG Compared to ECG 11/10/2022 09:15:07 No significant changes Electronically Signed On 03-18-2024 6:38:49 EDT by OSCAR CHAMBERS
--- NOTE | 2024-03-17 22:14 | CT_ITS ---
[address] [address] Patient Name: VANDANA NASCIMENTO MRN: [id number] date: 1965 Sex: M Assigned Patient Location: ER Current Patient Location: ER Accession/Order Number: [id number] Exam Date: 03/17/2024 23:12 Report Date: 03/18/2024 00:41 At the request of: YAW RENEE Procedure: CT abdomen pelvis wo con EXAM: CT abdomen pelvis wo con HISTORY: Vomiting, rule out sbo, hx renal transplant COMPARISON: CT abdomen and pelvis examination dated 05/21/2023. TECHNIQUE: Noncontrast axial CT images through the abdomen and pelvis were obtained with coronal and sagittal reformats. Dose reduction techniques were achieved by using automated exposure control and/or adjustment of mA and/or kV according to patient size and/or use of iterative reconstruction technique. FINDINGS: There is bibasilar atelectasis. Pleural calcifications are seen in the lung bases. There is coronary artery disease. There is mild cardiomegaly. There is a small hiatal hernia. Abdomen: Please note that the sensitivity for detection of focal lesions or vascular disease is markedly reduced without intravenous contrast. The liver and spleen are unremarkable. There is no intra or extrahepatic biliary duct dilatation. The gallbladder is unremarkable. There is marked atrophy of the [place] kidneys. The pancreas and adrenal glands are unremarkable. There is no mesenteric or retroperitoneal lymphadenopathy. There is colonic diverticulosis without evidence of diverticulitis. The appendix is not seen. There are multiple air and fluid-filled dilated loops of small bowel measuring up to 4.9 cm with a transition point in the mid abdomen where there is swirling of the mesentery and vessels. The stomach is distended with air and fluid. There is soft tissue edema about the umbilicus. Pelvis: The bladder and rectum are unremarkable. There is no iliac or inguinal lymphadenopathy. A right hemipelvis transplant kidney is in place. An IVC filter is noted. A stent is seen within the left common iliac and left external iliac veins. Atherosclerotic calcifications are noted. Bone windows show no aggressive osseous lesions. CT/CT abdomen pelvis wo con IMPRESSION: 1. Multiple air and fluid-filled dilated loops of small bowel with a transition point in the mid abdomen where there is swirling of the vessels and mesentery. This likely represents a high-grade bowel obstruction, due to an internal hernia. 2. Colonic diverticulosis without evidence of diverticulitis. 3. Mild cardiomegaly with coronary artery disease. 4. Marked atrophy of [place] kidneys with a right hemipelvis transplant kidney. 5. The appendix is not seen. 6. Nonspecific soft tissue edema about the umbilicus. Electronically authenticated by: Virginia WADSWORTH Date: 03/18/2024 00:41
--- NOTE | 2024-03-17 22:15 | ED.NAVMDI1 ---
HPI - Nausea/Vomiting/Diarrhea General Chief complaint: Nausea/Vomiting/Diarrhea Stated complaint: Nausea/Vomiting/Diarrhea Time Seen by Provider: 03/17/24 20:01 Source: patient Mode of arrival: walk-in Limitations: no limitations History of Present Illness HPI Narrative: 59-year-old male presents to the emergency department for nausea vomiting and diarrhea. The vomiting began yesterday and then he had some diarrhea today. No hematemesis or melena or hematochezia. He has not had a fever. He states his stomach feels hard and his is concerned about a bowel obstruction, he had 1 last year which did not require surgery. He has a history of kidney transplant. Related Data Home Medications ?Medication ?Instructions ?Recorded ?Confirmed apixaban 5 mg tablet (Eliquis) 5 mg PO Q12H 05/21/23 09/15/23 atorvastatin 10 mg tablet 10 mg PO DAILY 05/21/23 09/15/23 lacosamide 100 mg tablet 200 mg PO Q12H 05/21/23 09/15/23 lamotrigine 100 mg tablet 300 mg PO Q12H 05/21/23 09/15/23 levothyroxine 125 mcg tablet 125 mcg PO DAILY 05/21/23 09/15/23 (Synthroid) melatonin 5 mg capsule 5 mg PO BEDTIME 05/21/23 09/15/23 metoprolol tartrate 25 mg tablet 12.5 mg PO Q12H 05/21/23 09/15/23 mycophenolate mofetil 250 mg 750 mg PO Q12H 05/21/23 09/15/23 capsule prednisone 5 mg tablet 5 mg PO DAILY 05/21/23 09/15/23 tacrolimus 0.75 mg tablet,extended 1.5 mg PO DAILY 05/21/23 09/15/23 release 24 hr (Envarsus XR) paliperidone 3 mg tablet,extended 3 mg PO DAILY 05/22/23 09/15/23 release 24 hr tacrolimus 1 mg tablet,extended 1 mg PO DAILY 05/22/23 09/15/23 release 24 hr (Envarsus XR) Allergies Allergy/AdvReac Type Severity Reaction Status Date / Time phenytoin [From Dilantin] Allergy Severe Verified 03/17/24 20:43 kepra AdvReac Intermediate Agitated Uncoded 03/17/24 20:43 Review of Systems ROS Narrative A ten point review of systems is negative except as noted above. [facility] Medical History (Updated 03/18/24 @ 01:11 by Anibal Jacobs MD) CKD (chronic kidney disease) stage 3, GFR 30-59 ml/min ?N18.30 - Chronic kidney disease, stage 3 unspecified (ICD-10) Seizure disorder ?G40.909 - Epilepsy, unspecified, not intractable, without status epilepticus (ICD-10) History of DVT (deep vein thrombosis) ?Z86.718 - Personal history of other venous thrombosis and embolism (ICD-10) Collapse of left lung ?J98.11 - Atelectasis (ICD-10) Hyperlipemia ?E78.5 - Hyperlipidemia, unspecified (ICD-10) HTN (hypertension) ?I10 - Essential (primary) hypertension (ICD-10) Hypothyroid ?E03.9 - Hypothyroidism, unspecified (ICD-10) DVT (deep venous thrombosis) ?I82.409 - Acute embolism and thrombosis of unspecified deep veins of unspecified lower extremity (ICD-10) 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-10) Seizures ?R56.9 - Unspecified convulsions (ICD-10) Surgical History (Updated 05/27/23 @ 00:00 by ) H/O craniotomy ?Z98.890 - Other specified postprocedural states (ICD-10) History of appendectomy ?Z90.49 - Acquired absence of other specified parts of digestive tract (ICD-10) History of hernia repair ?Z98.890 - Other specified postprocedural states (ICD-10) ?Z87.19 - Personal history of other diseases of the digestive system (ICD-10) Kidney transplanted ?Z94.0 - Kidney transplant status (ICD-10) Family History (Updated 05/21/23 @ 22:43 by Maryana King) Father Family history of cancer Family history of hypertension Mother Family history of COPD (chronic obstructive pulmonary disease) Social History (Updated 05/21/23 @ 22:45 by Maryana King) Within the past year, how often did you have a drink containing alcohol: never Within the past year, how often did you have six or more drinks on one occasion: never Score interpretation: A score less than 4 is consistent with normal alcohol consumption. 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 Known occupational exposures/hazards: No Highest level of school completed/degree received: Bachelor's degree Do you want help with school or training: No Are you now , , , , never or living with a partner: In a typical week, how many times do you talk on the telephone with family, friends, or neighbors: 3 or more times per week How often do you get together with friends or relatives: 3 or more times per week How often do you attend muslim or jewish services: 4 or more times per year Do you belong to any clubs or organizations such as muslim groups unions, fraternal or athletic groups, or school groups: no Total score: 3 Score interpretation: A score of greater than or equal to 2 indicates the lowest level of social isolation. Little interest or pleasure in doing things: not at all Feeling down, depressed, or hopeless: not at all Feel stressed/tense/nervous/anxious/difficulty sleeping: not at all Due to disability, difficulty making decisions: No Do you think of yourself as: straight/heterosexual Gender Identity: male Exam Narrative Exam Narrative: Nurses note and vital signs reviewed and patient is not hypoxic. General: The patient appears well and in no apparent distress. Patient is resting comfortably on cart. Skin: Warm, dry, no pallor noted. There is no rash noted. Head: Normocephalic, atraumatic Eye: Normal conjunctiva, no drainage Ears, Nose, Mouth, and Throat: oral mucosa is moist. Nares patent. Cardiovascular: Regular Rate and Rhythm Respiratory: Patient is in no distress, no accessory muscle use, lungs are clear to auscultation, no wheezing, rales or rhonchi Back: non-tender GI: Hypoactive bowel sounds. Diffuse tenderness present Musculoskeletal: The patient has no evidence of calf tenderness, no pitting edema, symmetrical pulses noted bilaterally Neurological: A&O, normal speech Psychiatric: Cooperative Constitutional Vital Signs, click to edit/add: Last Vital Signs Temp 97.9 F 03/17/24 20:39 Pulse 72 03/17/24 23:30 Resp 12 03/17/24 23:30 BP 152/83 H 03/17/24 23:30 Pulse Ox 96 03/17/24 23:30 O2 Del Method Room Air 03/17/24 20:39 Course Vital Signs Vital signs: Vital Signs Temperature 97.9 F 03/17/24 20:39 Pulse Rate 74 03/17/24 20:39 Respiratory Rate 18 03/17/24 20:39 Blood Pressure 147/101 H 03/17/24 20:39 Pulse Oximetry 99 03/17/24 20:39 Oxygen Delivery Method Room Air 03/17/24 20:39 Temperature 97.9 F 03/17/24 20:39 Pulse Rate 72 03/17/24 23:30 Respiratory Rate 12 03/17/24 23:30 Blood Pressure 152/83 H 03/17/24 23:30 Pulse Oximetry 96 03/17/24 23:30 Oxygen Delivery Method Room Air 03/17/24 20:39 MDM - Nausea/Vomiting/Diarrhea MDM Narrative Medical decision making narrative: Small bowel obstruction is identified. The case was discussed with Dr. Roberts and an NG tube was ordered. The patient is being admitted to the hospitalist service. Treatment diagnosis and disposition were discussed with the patient and his . Differential Diagnosis Differential diagnosis: Likely food poisoning, gastroenteritis, dehydration and other (Small bowel obstruction) Lab Data Attestation: I reviewed the patient's lab results. Labs: Lab Results 03/17/24 03/18/24 Range/Units 22:23 00:00 WBC 9.8 (4.0-11.0) 10^3/uL RBC 4.88 (4.70-6.10) 10^6/uL Hgb 15.1 (14.0-18.0) g/dL Hct 45.0 (42.0-54.0) % MCV 92.2 (80.0-94.0) fL MCH 30.9 (25.9-34.0) pg MCHC 33.6 (29.9-35.2) g/dL RDW 12.3 (11.0-15.0) % Plt Count 224 (150-450) 10^3/uL MPV 9.3 L (9.5-13.5) fL Neut % (Auto) 64.7 (43.0-75.0) % Lymph % (Auto) 24.9 (20.5-60.0) % [place] % (Auto) 9.6 (1.7-12.0) % Eos % (Auto) 0.3 L (0.9-7.0) % Baso % (Auto) 0.3 (0.2-2.0) % Neut # (Auto) 6.3 (1.4-6.5) 10^3/uL Lymph # (Auto) 2.4 (1.2-3.8) 10^3/uL [place] # (Auto) 0.9 H (0.3-0.8) 10^3/uL Eos # (Auto) 0.0 (0.0-0.7) 10^3/uL Baso # (Auto) 0.0 (0.0-0.1) 10^3/uL Abs Immat Gran (auto) 0.02 (0.00-0.03) 10^3/uL Imm/Tot Granulo (auto) 0.2 (0.0-0.5) % Sodium 137 (136-145) mmol/L Potassium 4.2 (3.5-5.1) mmol/L Chloride 100 (98-107) mmol/L Carbon Dioxide 27.2 (21.0-32.0) mmol/L Anion Gap 14.0 BUN 23.0 H (7.0-18.0) mg/dL Creatinine 1.75 H (0.70-1.30) mg/dL Est GFR ( Amer) 49 L (>=60) Est GFR (Non-Af Amer) 40 L (>=60) BUN/Creatinine Ratio 13.1 Glucose 120 H (74-106) mg/dL Calcium 10.2 H (8.5-10.1) mg/dL Urine Color Yellow (YELLOW) Urine Clarity Clear (CLEAR) Urine pH 7.5 (5.0-9.0) Ur Specific [place] 1.020 (1.005-1.025) Urine Protein 30 A (NEG/TRACE) mg/dL Urine Glucose (UA) Negative (NEGATIVE) mg/dL Urine Ketones Negative (NEGATIVE) mg/dL Urine Occult Blood Negative (NEGATIVE) Urine Nitrite Negative (NEGATIVE) Urine Bilirubin Negative (NEGATIVE) Urine Urobilinogen 1.0 (0.2-1.0) EU/dL Ur Leukocyte Esterase Negative (NEGATIVE) Urine RBC None seen (0-2) #/HPF Urine WBC None seen (NONE SEEN) #/HPF Ur Squamous Epith Cells None seen (NONE/RARE) #/LPF Urine Crystals None seen (None Seen) #/HPF Amorphous Sediment Rare Urine Bacteria None seen (NONE SEEN) #/HPF Urine Casts None seen (NONE SEEN) #/LPF Urine Mucus Trace A (NONE SEEN) Ur Culture Indicated? No Imaging Data CT scan - abdomen: Radiologist's impression: ITS Impressions Abdomen/Pelvis CT 03/17/24 22:14 IMPRESSION: 1. Multiple air and fluid-filled dilated loops of small bowel with a transition point in the mid abdomen where there is swirling of the vessels and mesentery. This likely represents a high-grade bowel obstruction, due to an internal hernia. 2. Colonic diverticulosis without evidence of diverticulitis. 3. Mild cardiomegaly with coronary artery disease. 4. Marked atrophy of [place] kidneys with a right hemipelvis transplant kidney. 5. The appendix is not seen. 6. Nonspecific soft tissue edema about the umbilicus. Electronically authenticated by: Virginia WADSWORTH Date: 03/18/2024 00:41 ECG Data Attestation: I personally reviewed and interpreted this ECG as follows: (EKG on my interpretation shows sinus rhythm with a rate of 69.) Discharge Plan Discharge Chief Complaint: Nausea/Vomiting/Diarrhea Clinical Impression: Small bowel obstruction Patient Disposition: Admitted As Inpatient Time of Disposition Decision: 01:11 Condition: Fair
[2024-03-17 22:30] LABS: Basophils Percent Auto 0.3 % (0.2-2.0); Eosinophils Percent Auto 0.3 % (0.9-7.0); Hemoglobin 15.1 g/dL (14.0-18.0); Immature Granulocytes Abs Auto 0.02 10^3/uL (0.00-0.03); Immature Granulocytes Pct Auto 0.2 % (0.0-0.5); Lymphocytes Absolute Auto 2.4 10^3/uL (1.2-3.8); Lymphocytes Percent Auto 24.9 % (20.5-60.0); Mean Corpuscular HGB Conc 33.6 g/dL (29.9-35.2); Mean Corpuscular Hemoglobin 30.9 pg (25.9-34.0); Mean Corpuscular Volume 92.2 fL (80.0-94.0); Mean Platelet Volume 9.3 fL (9.5-13.5); Monocytes Absolute Auto 0.9 10^3/uL (0.3-0.8); Monocytes Percent Auto 9.6 % (1.7-12.0); Neutrophils Absolute Auto 6.3 10^3/uL (1.4-6.5); Neutrophils Percent Auto 64.7 % (43.0-75.0); Platelet Count 224 10^3/uL (150-450); Red Blood Count 4.88 10^6/uL (4.70-6.10); Red Cell Distribution Width 12.3 % (11.0-15.0); White Blood Count 9.8 10^3/uL (4.0-11.0)
[2024-03-17] MEDS: 0.9 % SODIUM CHLORIDE 500 ML IV (22:33)
[2024-03-17 22:38] LABS: BUN Creatinine Ratio 13.1; Calcium 10.2 mg/dL (8.5-10.1); Carbon Dioxide 27.2 mmol/L (21.0-32.0); Chloride 100 mmol/L (98-107); Estimated GFR (African America 49 (>=60); Estimated GFR (Non-African Ame 40 (>=60); Glucose 120 mg/dL (74-106); Potassium 4.2 mmol/L (3.5-5.1); Sodium 137 mmol/L (136-145)
[2024-03-17] MEDS: ONDANSETRON PF 4 MG/2 ML VIAL IV (22:38)
[2024-03-18] VITALS (29 sets, daily range): BP systolic 146–188; BP diastolic 92–101; PULSE 68–100; TEMP 36.8–36.9; O2SAT 91–95; BMI 26.9
[2024-03-18 00:08] LABS: Bilirubin Urine NEGATIVE (NEGATIVE); Blood Urine NEGATIVE (NEGATIVE); Clarity Urine CLEAR (CLEAR); Color Urine YELLOW (YELLOW); Glucose Urine UA NEGATIVE (NEGATIVE); Ketones Urine NEGATIVE (NEGATIVE); Leukocyte Esterase Urine NEGATIVE (NEGATIVE); Nitrite Urine NEGATIVE (NEGATIVE); Protein Urine 30 mg/dL (NEG/TRACE); pH Urine 7.5 (5.0-9.0)
[2024-03-18 00:14] LABS: Bacteria Urine NONE SEEN #/HPF (NONE SEEN); Crystals Seen? None Seen #/HPF (None Seen); Mucus Urine TRACE (NONE SEEN); RBC Urine NONE SEEN #/HPF (0-2); Squamous Epithelial Cell Urine NONE SEEN #/LPF (NONE/RARE); WBC Urine NONE SEEN #/HPF (NONE SEEN)
[2024-03-18 00:15] LABS: Amorphous Sediment Urine RARE; Cast Seen? NONE SEEN #/LPF (NONE SEEN); Urine Culture Indicated NO
--- NOTE | 2024-03-18 02:50 | XR_ITS ---
The [address] [address] Patient Name: VANDANA NASCIMENTO MRN: [id number] date: 1965 Sex: M Assigned Patient Location: ER Current Patient Location: ER Accession/Order Number: [id number] Exam Date: 03/18/2024 03:05 Report Date: 03/18/2024 04:06 At the request of: YAW RENEE Procedure: XR chest 1V EXAM: XR chest 1V HISTORY: NG tube placement COMPARISON: Chest x-ray 11/10/2022 TECHNIQUE: Single frontal view chest x-ray FINDINGS: Enteric tube distal tip and sidehole are at the left gastric fundus/upper body region. Mild streaky opacities at the bilateral lower lungs. Cardiomegaly. No large pleural effusion, pneumothorax, or acute bony abnormality. XR/XR chest 1V IMPRESSION: Enteric tube distal tip and sidehole are at the left gastric fundus/upper body region. Mild streaky opacities at the bilateral lower lungs reflect atelectasis, less likely lung infiltrates. Cardiomegaly. Electronically authenticated by: ABIMAEL RIOS Date: 03/18/2024 04:06
[2024-03-18] MEDS: LIDOCAINE 2% JELLY 10 ML UR (03:05)
--- OUTSIDE RECORDS SUMMARY | 2024-03-18 04:31 | XMS_ITS | CCD ---
Author Organization [facility] Care Team Providers Care Real Estate Director Name Role Phone MARCYLARON ALVIN Partida Unavailable Unavailable DAVID NEAL Unavailable Unavailable MARKO JONES Unavailable Unavailable David Neal Primary Care Provider Unavailramakrishna e David Neal Primary Care Provider NealDavid galarza Primary Care Provider [phone] David Neal Primary Care Provider David Neal Primary Care Provider JALEEL STEPHEN Admitting Unavail able JALEEL STEPHEN Attending Unavail able DAVID NEAL Primary Care Unavailable MARINA, AHYLEY T Consulting Unavailable NUPUR TABOR Consulting Unavailable SUGAR JOE Consulting Unavailable MAG SANCHEZH A Consulting Unavailable LISANDRO LAMB Consulting Unavailable PEDRO CALVILLO Consulting Unavailable David Neal MD Primary Care Provider JALEEL STEPHEN Admitting Unavail able JALEEL STEPHEN Attending Unavail able DAVID NEAL Primary Care Unavailable AOUAWatson, HAYLEY T Consulting Unavailable NUPUR TABOR Consulting Unavailable SUGAR JOE Consulting Unavailable LAURA CARLY A Consulting Unavailable LISANDRO LAMB Consulting Unavailable PEDRO CALVILLO Consulting Unavailable GAIL CHAHAL Referring Unavailable DAVID NEAL Primary Care Unavailable GAIL CHAHAL Referring Unavailable DAVID NEAL Primary Care Unavailable David Neal MD Primary Care Provider Melonie Walsh Unavailable Unavailable Unavailable Melonie Walsh MD Primary Care Provider Ángel PHILLIPS, David Staley Primary Care Provider Aixa Aly Unavailable Jillian PHILLIPS, Melonie Primary Care Provider Jillian PHILLIPS, Melonie Primary Care Provider Alvaro Tabor MD Referring Unavailable DAVID NEAL Primary Care Unavailable JILLIAN, MELONIE Primary Care Unavailable MD Melonie Walsh Primary Care Provider [phone] Boyd, PhD Dg Attending Provider MD Prem Tejada Admit Provider MD Prem Tejada Attending Provider [phone] Unavailable Unavailable Unavailable Primary Care Provider UnavailMelonie Mendez MD Primary Care Provider [phone] Melnoie Wlash Unavailable HELADIO, DR PABLO Cruz Attending Unavailabl e HELADIO, DR PABLO Cruz Admitting Unavailabl e HELADIO, DR PABLO Cruz Consulting Unavailramakrishna e JILLIAN, DR MELONIE Partida Primary Care Unavailable LEIGH ANN, DR ALVIN Win Consulting Unavailable JAVED Barney, DR BUTLER Consulting Unavailable ERICK, DR VICTOR HUGO Win Consulting Unavailable ERICK, DR VICTOR HUGO Win Attending Unavailable ERICK, DR VICTOR HUGO Win Admitting Unavailable JILLIAN, DR MELONIE Partida Primary Care Unavailable TOMÁS MACE Consulting Unavailable NIOBRARA, DR AIXA Krishna Consulting Unavailable DALIA QUEZADA Attending Unavailable DALIA QUEZADA Admitting Unavailable JILLIAN, DR MELONIE Partida Primary Care Unavailable DALIA QUEZADA Consulting Unavailable MISC, DR PASTOR Admitting Unavailable JILLIAN, DR MELONIE Partida Primary Care Unavailable MISC, DR PASTOR Consulting Unavailable KAT, DR PASTOR Attending Unavailable SACHI PRICE Attending Unavailable SACHI PRICE Admitting Unavailable JILLIAN, DR MELONIE Partida Primary Care Unavailable KAT, DR PASTOR Consulting Unavailable Melonie Walsh MD Primary Care Provider [phone] MD Melonie Walsh Primary Care Provider MD Gregory House Admit Provider MD Gregory House Attending Provider [phone] KRIS Blanco Other Provider Unavailable KRIS Henriquez Other Provider Unavailable John RN Hannah Other Provider Unavailable Monika RN Jami Other Provider Unavailable KRIS Messina Other Provider Unavailable KRIS Marcos Other Provider Unavailable MD Anisha Harrison Other Provider MD Bala Medrano Other Provider DAYSI Ortiza M Other Provider DO Roz Alex Other Provider MD Tez Faustin Other Provider DO Frederick Sequeira Other Provider MD Abel Sanchez Other Provider MD Teresita Terrell Other Provider Laura, ANP-BC Eli Other Provider MD Merline Cox Other Provider MD Den Lira Other Provider MD Kirk Gonzalez Other Provider MD Lara Rutherford Other Provider DO Danny Hector Other Provider MD Tre Mantilla Other Provider MD Carlos Brito Other Provider DERRICK Burgos-Carlos See Other Provider MD Ho Grover Other Provider MD Lucas Lucio Other Provider MD Cornelio Walker Other Provider DO Georgia Smith Other Provider DO Raffy Talavera Other Provider DO Nick Valiente Other Provider DAYSI Jaquez Other Provider DO Petey White Other Provider MD Lilibeth French Other Provider [phone] DAYSI Suarez Other Provider DAYSI Garnica Other Provider MD Yasmeen Olmstead Other Provider Janna, KRIS Pro Other Provider Unavailable MD Teresita Terrell Admit Provider [phone] MD Raheel Dolan Other Provider MD Prem Tejada Other Provider DAYSI Saeed Other Provider MD Kay Lau Other Provider MD Johann Cueva Other Provider MD Danika Escobar Other Provider [phone] DO Marcin Rosas Other Provider MD Trudi German M Other Provider [phone] MD David Combs Other Provider MD Gonzalo Sheikh Other Provider DO Dayron Knight Other Provider MD Cornelio Walker Attending Provider DO Oswaldo Andrea Attending Provider MD Melonie Walsh Primary Care Provider MD Buster Tejada Attending Provider Melonie Walsh MD Primary Care Provider HUBERT GRAF Referring UnavailMELONIE Mendez Primary Care Unavailable JABIER SHELLEY Admitting Unavailable JABIER SHELLEY Attending Unavailable MELONIE WALSH Primary Care Unavailable JABIER SHELLEY Admitting Unavailable JABIER SHELLEY Attending Unavailable MELONIE WALSH Primary Care Unavailable ANUJA OLIVA Referring Unavailable WALSH, MELONIE E Primary Care Unavailable MOUNIKA TOMAS Attending Unavailable WALSH, MELONIE E Primary Care Unavailable SADIQ MARTINEZ Referring Unavailable WALSH, MELONIE E Primary Care Unavailable SERA VILLANUEVA Referring Unavailable WALSH, MELONIE E Primary Care Unavailable FARRAH VICKERS Admitting Unavailable FARRAH VICKERS Attending Unavailable WALSH, MELONIE E Primary Care Unavailable EL ELIZABETH, WASISIAH A Consulting Unavailable HUBERT GRAF Referring Unavailabl e WALSH, MELONIE E Primary Care Unavailable ANUJA OLIVA Attending Unavailable HUBERT GRAF Referring Unavailabl e WALSH, MELONIE E Primary Care Unavailable JABIER SHELLEY Referring Unavailable WALSH, MELONIE E Primary Care Unavailable JABIER SHELLEY Attending Unavailable JABIER SHELLEY Referring Unavailable WALSH, MELONIE E Primary Care Unavailable ROSIE TIM Attending Unavailable ROSIE TIM Referring Unavailable WALSH, MELONIE E Primary Care Unavailable JABIER SHELLEY Referring Unavailable WALSH, MELONIE E Primary Care Unavailable MONY HODGES Referring Unavailable WALSH, MELONIE E Primary Care Unavailable ANUJA OLIVA Attending Unavailable WALSH, MELONIE E Primary Care Unavailable ANTONIA KENDALL Attending Unavailable WALSH, MELONIE E Primary Care Unavailable JABIER SHELLEY Admitting Unavailable JABIER SHELLEY Attending Unavailable SADIQ MARTINEZ Referring Unavailable WALSH, MELONIE E Primary Care Unavailable JABIER SHELLEY Admitting Unavailable JABIER SHELLEY Attending Unavailable IRAIDA SHAY Referring Unavailable WALSH, MELONIE E Primary Care Unavailable SHELBY TOBIAS Referring Unavailable WALSH, MELONIE E Primary Care Unavailable OMAR TURPIN Attending Unavailable ANUJA OLIVA Referring Unavailable WALSH, MELONIE E Primary Care Unavailable JABIER SHELLEY Attending Unavailable JABIER SHELLEY Referring Unavailable WALSH, MELONIE E Primary Care Unavailable DAVID RUBY Attending Unavailable MONY HODGES Referring Unavailable WALSH, MELONIE E Primary Care Unavailable ANUJA OLIVA Attending Unavailable ANUJA OLIVA Referring Unavailable WALSH, MELONIE E Primary Care Unavailable MONY HODGES Attending Unavailable WALSH, MELONIE E Primary Care Unavailable JABIER SHELLEY Attending Unavailable MONY HODGES Referring Unavailable WALSH, MELONIE E Primary Care Unavailable MONY HODGES Referring Unavailable WALSH, MELONIE E Primary Care Unavailable MONY HODGES Referring Unavailable WALSH, MELONIE E Primary Care Unavailable MONY HODGES Referring Unavailable WALSH, MELONIE E Primary Care Unavailable JAN MONY Referring Unavailable WALSH, MELONIE E Primary Care Unavailable HODGES, MONY Referring Unavailable WALSH, MELONIE E Primary Care Unavailable WALSH, MELONIE E Primary Care Unavailable MONY HODGES Referring Unavailable GEORGES DAVID R Referring Unavailable WALSH, MELONIE E Primary Care Unavailable HODGES, MONY Referring Unavailable WALSH, MELONIE E Primary Care Unavailable MONY HODGES Referring Unavailable WALSH, MELONIE E Primary Care Unavailable JAN, MONY Referring Unavailable WALSH, MELONIE E Primary Care Unavailable JABIER SHELLEY Attending Unavailable WALSH, MELONIE E Primary Care Unavailable MONY HODGES Referring Unavailable WALSH, MELONIE E Primary Care Unavailable DAPHNEYJABIER RODRIGES Referring Unavailable WALSH, MELONIE E Primary Care Unavailable GEORGES, DAVID R Referring Unavailable WALSH, MELONIE E Primary Care Unavailable GEORGES, DAVID R Referring Unavailable WALSH, MELONIE E Primary Care Unavailable SARAH WARREN Referring Unavailable WALSH, MELONIE E Primary Care Unavailable SARAH WARREN Attending Unavailable SARAH WARREN Referring Unavailable WALSH, MELONIE E Primary Care Unavailable MONY HODGES Referring Unavailable WALSH, MELONIE E Primary Care Unavailable ANUJA OLIVA Attending Unavailable WALSH, MELONIE E Primary Care Unavailable SARAH WARREN Referring Unavailable WALSH, MELONIE E Primary Care Unavailable MONY HODGES Referring Unavailable WALSH, MELONIE E Primary Care Unavailable ANTONIA KENDALL Attending Unavailable DHARMESHBEL, SARAH Referring Unavailable WALSH, MELONIE E Primary Care Unavailable JABIER SHELLEY Attending Unavailable WALSH, MELONIE E Primary Care Unavailable Walsh, Melonie E [facility] Admitting Unavailable Buster Tejada Admitting Unavailab le Buster Tejada Attending Unavailab le Walsh, Melonie E Primary Care Unavailable Cornelio Walker Attending Unavailable Darlin, Magdalene Consulting Unavailable Walsh, Melonie E Primary Care Unavailable Teresita Terrell Admitting Unavailable Kay Lau Consulting Unavailable Johann Cueva Consulting Unavaila Danika Malik Consulting Unavailable Marcin Rosas Consulting UnavailTrudi Jimneez Consulting Unavailable David Combs Consulting Unavailable Gonzalo Sheikh Consulting Unavailable Dayron Knight Consulting Unavailable Raheel Dolan Consulting Unavailable Buster Tejada Consulting Unavailab le Harsh, Gregory Admitting Unavailable Gregory House Attending Unavailable Melonie Walsh Primary Care Unavailable Belen Blanco Consulting Unavailable Hubert Henriquez Consulting Unavailable Hannah Lopez Consulting Unavailable Jami Frank Consulting Unavailable Lluvia Messina Consulting Unavailable Emilie Marcos Consulting Unavailable Anisha Harrison Consulting Unavailable Bala Medrano Consulting Unavailable Trudi Ortiz Consulting Unavailable Roz Alex Consulting Unavailable Tez Faustin Consulting Unavailable Frederick Sequeira Consulting UnavailAbel Alba Consulting Unavailable Teresita Terrell Consulting Unavailable Eli Gtz Consulting UnavailMerline Thompson Consulting Unavailable Den Lira Consulting Unavailable Kirk Gonzalez Consulting Unavailable Lara Rutherford Consulting Unavailable Danny Hector Consulting Unavailable Tre Mantilla Consulting Unavailable Carlos Brito Consulting Unavailable Leslee Burgos Consulting Unavailable DoHo ross Consulting Unavailab shane Lucio Lucas Consulting Unavailable Cornelio Walker Consulting Unavailable Georgia Smith Consulting Unavailable Raffy Talavera Consulting Unavailable Nick Valiente Consulting Unavailable Luna Jaquez Consulting Unavailable Petey White Consulting Unavailable DaromarLilibeth Consulting Unavailable Sara Suarez Consulting Unavailable Rukhsana Garnica Consulting Unavailable Alajacobad Alaa Consulting Unavailable Inocencia Saldivar Consulting Unavailable MELONIE WALSH Primary Care Unavailable ALEJANDRO LEE Attending Unavailable VALENTINE JETER Referring Unavailabl e WALSH, MELONIE Primary Care Unavailable WALSH, MELONIE Primary Care Unavailable DOYLE JULIA E Referring Unavailable DOYLE, JULIA E Referring Unavailable WALSH, MELONIE Primary Care Unavailable WALSHMELONIE Referring Unavailable WALSH, MELONIE Primary Care Unavailable JAWBENJI VALENTINEANNABELLE LEVINE Referring Unavailabl e WALSH, MELONIE Primary Care Unavailable WALSH, MELONIE Primary Care Unavailable ALEJANDRO LEE Attending Unavailable Allergies Allergy Classification Reported Allergen(s) Allergy Type Date of Onset Reaction(s) Facility Anti-Epileptic Agents (20 sources) Phenytoin Drug Allergy 3 Seizure, Mood changes [employer] Phone: (1 source) No Known Medication Allergies; Translations: [No Known Medication Allergies] Propensity to adverse reactions to drug (disorder) [facility] (20 sources) Phenytoin Drug Allergy 3 [place] Phenytoin; Translations: [Dilantin] Drug Allergy 2 Other: See Comments [employer] Phone: (7 sources) levETIRAcetam; Translations: [levetiracetam] Drug Allergy 2 Mood changes [facility] (1 source) Phenytoin Drug Allergy [facility] Repository (1 source) Allergies Reconciled Propensity to adverse reactions Unknown [facility] Other (1 source) Phenytoin Drug Allergy 4 [facility] Repository Medications Current Medications Medication Drug Class(es) Dates Sig (Normalized) Sig (Original) acetaminophen 500 mg oral tablet (20 sources) Start: 12-01-2023 take 1 tablet by mouth every six hours as needed Acetaminophen Active 1 TAB PO Every 6 hours December 01, 2023 1:00am [employer] tablet as needed Orally every 6 hrs; Note: Source Status: Taking; Provider: Jillian Landaverde ( ) Start: 07-18-2023 take 2 tablets enter al route every four hours as needed acetaminophen (TYLENOL) 325 mg tablet 2 tablets by ORAL/FEEDING TUBE route every 4 hours as needed for pain or fever (specify). 0 07/18/2023 Active Start: 03-04-2023 take 2 tablets by mo uth every four hours as needed acetaminophen (TYLENOL) 325 mg tablet Take 2 tablets by mouth every 4 hours as needed for pain or fever. 60 tablet 0 03/04/2023 Active Start: 02-01-2021 End: 02-06-2021 acetaminophen (TYLENOL) tabl et 650 mg Start: 01-14-2021 End: 11-12-2022 take 500 mg by mouth every six hours Acetaminophen Discontinued 500 MG PO Q6H 120 January 14, 2021 12:00am November 12, 2022 1:32am Start: 01-09-2021 End: 01-31-2021 take 2 tablets by mouth every eight hours acetaminophen (TYLENOL) 500 MG tablet Take 2 tablets by mouth every 8 hours for 7 days 42 tablet 0 01/09/2021 01/31/2021 Discontinued (Therapy completed) Start: 12-20-2020 End: 01-05-2021 take 1 dose by mouth three times daily 1,000 mg, Oral, EVERY 8 HOURS SCHEDULED (3 times per day), First dose on Tue01/05/21 at 1400 Maximum dose of acetaminophen is 4000 mg from all sources in 24 hours. Post-op Start: 09-25-2019 End: 09-27-2019 take 1 dose by mouth three times daily 1,000 mg, Oral, EVERY 8 HOURS SCHEDULED (3 times per day), First dose on Tue09/25/19 at 2345 Maximum dose of acetaminophen is 4000 mg from all sources in 24 hours. Comment on above: Take 2 tablets by mo uth every 4 hours as needed for pain or fever. 2 tablets by ORAL/FE EDING TUBE route every 4 hours as needed for pain or fever (specify). albuterol 0.83 mg/ml inhalant solution (1 source) beta2-Adrenergic Agonist Start: albuterol (PROVENTIL) nebulizer solution 2.5 mg ascorbic acid 60 mg / beta carotene 5000 unt / copper sulfate 40 mg / dl-alpha tocopheryl acetate 30 unt / sodium selenite 0.04 mg / zinc oxide 40 mg oral tablet (9 sources) Vitamin C take 1 tablet by mouth once daily Multiple Vitamins-Minerals (THERAPEUTIC MULTIVITAMIN-MINERALS ) tablet Take 1 tablet by mouth daily 0 Active atorvastatin 10 mg oral tablet (20 sources) HMG-CoA Reductase Inhibitor Start: Atorvastatin Active 0 .ROUTE .COMPLEX 90 January 23, 2024 1:02pm TAKE 1 TABLET DAILY Start: 01-14-2021 End: 01-23-2024 take 10 mg by mouth once daily in the evening Atorvastatin Discontinued 10 MG PO Every evening 30 30 January 14, 2021 12:00am January 23, 2024 1:05pm Start: 01-09-2000 End: 01-05-2021 atorvastatin (LIPITOR) 10 mg tablet Take 10 mg by mouth. 0 01/09/2000 Active End: 01-31-2021 take 10 mg by mouth once daily atorvastatin (LIPITOR) 40 MG tablet Take 10 mg by mouth nightly 0 01/31/2021 Discontinued (Therapy completed) Comment on above: Take 10 mg by mouth. bacitracin 0.5 unt/mg topical ointment (2 sources) Start: 07-18-2023 End: 07-24-2023 bacitracin 500 unit/gram ointment Apply to affected area two times a day for 12 doses. 0 07/18/2023 07/24/2023 Active Start: 12-20-2020 End: 12-27-2020 apply 1 dose topically three times daily Topical, 3 TIMES DAILY, First dose on 12/20/20 at 2230 Apply to bacitracin To be used for areas below the clavicle region. Comment on above: Apply to affected ar ea two times a day for 12 doses. bisacodyl 5 mg delayed release oral tablet (1 source) Stimulant Laxative Start: take 5 mg by mouth once daily as needed for constipation 5 mg, Oral, DAILY PRN, Constipation, Starting 01/05/21 at 1205 First line therapy for constipation. Post-op cephalexin 500 mg oral capsule (7 sources) Cephalosporin Antibacterial take 1 capsule by mouth every eight hours Cephalexin 500 MG 1 capsule Orally every 8 hrs for 7 days Active clindamycin 150 mg oral capsule (7 sources) Lincosamide Antibacterial Start: End: take 1 capsule by mouth four times daily clindamycin (CLEOCIN) 150 mg capsule Take 1 capsule by mouth four times daily for 10 days. 40 capsule 0 05/24/2023 06/03/2023 Active Comment on above: Take 1 capsule by mo [facility] four times daily for 10 days. clonazePAM 1 mg oral tablet (20 sources) Benzodiazepine take 0.5 mg by mouth once daily as needed clonazePAM (KLONOPIN) 1 MG tablet Take 0.5 mg by mouth nightly as needed. 0 Active [facility] as needed clonazePAM (KLONOPIN) 1 MG tablet Take 1 mg by mouth daily as needed 0 Active clopidogrel 75 mg oral tablet (12 sources) [id number] Platelet Inhibitor Start: 06-03-2021 take 1 tablet by mouth once daily clopidogrel (PLAVIX) 75 MG tablet TAKE ONE TABLET BY MOUTH DAILY 30 tablet 3 06/03/2021 Active Start: 02-07-2021 take 1 tablet by mark th once daily clopidogrel (PLAVIX) 75 MG tablet Take 1 tablet by mouth daily 30 tablet 3 02/08/2021 Active Start: 02-06-2021 clopidogrel (P LAVIX) tablet 600 mg docusate sodium 50 mg / sennosides, shelter 8.6 mg oral tablet (6 sources) Start: 06-23-2023 End: 07-23-2023 take 1 tablet by mouth twice daily senna-docusate (SENNA-S) 8.6-50 mg per tablet 1 tablet by ORAL/FEEDING TUBE route twice daily. 60 tablet 0 06/23/2023 07/23/2023 Active Start: 03-04-2023 End: 04-03-2023 take 1 tablet by mouth twice daily senna-docusate (SENNA-S) 8.6-50 mg per tablet Take 1 tablet by mouth twice daily. 60 tablet 0 03/04/2023 04/03/2023 Active Start: 12-20-2020 End: 01-05-2021 take 1 tablet by mouth twice daily 1 tablet, Oral, 2 TIMES DAILY, First dose on 12/20/20 at 2230 Comment on above: Take 1 tablet by mark th twice daily. 1 tablet by ORAL/FEE DING TUBE route twice daily. gabapentin 100 mg oral capsule (20 sources) Anti-epileptic Agent Start: 12-21-2020 End: 01-31-2021 gabapentin (NEURONTIN) capsule 100 mg Start: 09-25-2019 End: 09-27-2019 gabapentin (NEURONTIN) capsu le 100 mg hypromellose 25 mg/ml ophthalmic solution (1 source) Start: 12-23-2020 hydroxypropyl methylcellulose (GONIOSOL) 2.5 % ophthalmic solution 1 drop iv contrast (will be provided with radiology test) (2 sources) Start: 01-28-2023 End: 01-29-2023 inject 1 dose intravenously once iv contrast (will be provided with radiology test) Indications: Encounter for other preprocedural examination CTA Head W IVCON No IV access, insert saline lock prior to the sedation, infusion, injection for imaging exam. Discontinue saline lock post exam. If Pt. has a central line or IVAD, may access for administration according to line specific nursing protocol. Once exam is complete flush line and de-access according to line specific nursing protocol in the CT contrast administration guidelines link. 1 Each 0 01/28/2023 01/29/2023 Active Start: 01-28-2023 End: 01-29-2023 inject 1 dose intravenously once iv contrast (will be provided with radiology test) Indications: Encounter for other preprocedural examination MRI Brain Localization Inject, intravenously, once for 1 dose.No IV access, insert saline lock prior to beginning of sedation, infusion, injection of imaging exam.Discontinue saline lock post exam. If Pt. has a central line or IVAD, may access for administration according to line specific nursing protocol.Once exam is complete flush line and de-access according to line specific nursing protocol in the MR contrast administration guidelines link 1 Each 0 01/28/2023 01/29/2023 Active Comment on above: CTA Head W IVCON No IV access, insert saline lock prior to the sedation, infusion, injection for imaging exam. Discontinue saline lock post exam. If Pt. has a central line or IVAD, may access for administration according to line specific nursing protocol. Once exam is complete flush line and de-access according to line specific nursing protocol in the CT contrast administration guidelines link. MRI Brain Localizati on Inject, intravenously, once for 1 dose.No IV access, insert saline lock prior to beginning of sedation, infusion, injection of imaging exam.Discontinue saline lock post exam. If Pt. 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 900 tablet 1 09/21/2023 12/21/2023 Discontinued Start: 11-12-2022 take 150 mg by mouth twice daily Lacosamide Active 150 MG PO Twice daily November 12, 2022 12:00am Start: 11-12-2022 End: 11-12-2022 take 1 tablet by mouth once daily Lacosamide (Vimpat) 50 mg tablet Discontinued 100 MG PO Daily November 12, 2022 1:35am November 12, 2022 11:23am Start: 11-12-2022 End: 07-25-2029 take 200 mg by mouth twice daily Lacosamide Discontinued 200 MG PO Twice daily 2 March 17, 2023 10:28am December 02, 2023 11:19am Start: 09-30-2022 lacosamide ( MPAT) 100 mg tab Start: 01-31-2021 lacosamide ( MPAT) injection 50 mg Start: 01-14-2021 End: 11-12-2022 take 1 tablet by mouth twice daily Lacosamide (Vimpat) 50 mg Tablet Discontinued 50 MG PO Twice daily 60 January 14, 2021 12:00am November 12, 2022 1:36am take 4 tablets by mo uth twice daily lacosamide (VIMPAT) 50 MG TABS tablet Take 4 tablets by mouth 2 times daily. 0 Active take 2 tablets by mo uth twice daily lacosamide (VIMPAT) 50 MG TABS tablet Take 100 mg by mouth 2 times daily. 0 Active Comment on above: Take 1 tablet by mark th twice daily. 5 tablets by ORAL/FE EDING TUBE route two times a day for 180 days. Take 1 tablet by mark th two times a day. Take 2 tablets by mo uth two times a day for 180 days. Take 2 tablets by mo uth two times a day for 30 days. Take 1 tablet by amrk th two times a day for 90 days. lamoTRIgine 100 mg oral tablet (20 sources) Mood Stabilizer, Anti-epileptic Agent Start: 03-07-2024 take 300 mg by mouth twice daily Lamotrigine Active 300 MG PO Twice daily March 07, 2024 9:27am Start: 12-12-2022 End: 12-20-2024 take 3 tablets by mouth twice daily lamoTRIgine (LAMICTAL) 100 mg tablet Take 3 tablets by mouth two times a day. 540 tablet 3 12/21/2023 12/20/2024 Active Start: 12-12-2022 lamoTRIgine (L AMICTAL) 100 mg tablet Take 150 mg by mouth twice daily. 0 12/12/2022 Active Start: 11-12-2022 End: 03-07-2024 take 100 mg by mouth twice daily Lamotrigine Discontinued 100 MG PO Twice daily November 12, 2022 1:00am November 12, 2022 1:36am Start: 11-12-2022 End: 12-02-2023 take 200 mg by mouth twice daily Lamotrigine Discontinued 200 MG PO Twice daily November 12, 2022 1:00am December 02, 2023 11:12am Start: 02-01-2021 lamoTRIgine (L AMICTAL) tablet 250 mg Start: 01-31-2021 lamoTRIgine (L AMICTAL) tablet 225 mg Start: 01-14-2021 End: 11-12-2022 take 250 mg by mouth twice daily Lamotrigine Discontinued 250 MG PO Twice daily 150 30 January 14, 2021 12:00am November 12, 2022 1:29am Start: 12-21-2020 lamoTRIgine (L AMICTAL) tablet 250 mg Start: 12-21-2020 lamoTRIgine (L AMICTAL) tablet 225 mg Start: 09-27-2019 take 1 tablet by mark th twice daily, then take 1 tablet by mouth twice daily lamoTRIgine (LAMICTAL) 25 MG tablet Take 1 tablet by mouth 2 times daily *To take in addition to home dose Lamictal 200mg BID for a TOTAL DOSE 225MG BID 30 tablet 3 09/27/2019 Active Start: 09-27-2019 End: 01-31-2021 take 2 tablets by mouth twice daily lamoTRIgine (LAMICTAL) 100 MG tablet Take 2 tablets by mouth 2 times daily Be seen by your primary provider to get refills on this med 120 tablet 0 09/27/2019 01/31/2021 Discontinued (Therapy completed) Start: 09-27-2019 End: 09-27-2019 take 2.5 tablets by mouth twice daily lamoTRIgine (LAMICTAL) 100 MG tablet Take 2.5 tablets by mouth 2 times daily for 14 days Be seen by your primary provider to get refills on this med 70 tablet 0 09/27/2019 09/27/2019 Discontinued (REORDER) Start: 09-26-2019 lamoTRIgine (L AMICTAL) tablet 225 mg Start: 07-27-2019 End: 09-25-2019 take 1 tablet by mouth twice daily lamoTRIgine (LAMICTAL) 200 MG tablet Take 1 tablet by mouth 2 times daily 60 tablet 0 07/27/2019 09/25/2019 Discontinued (Therapy completed) take 1.5 tablets by mouth twice daily lamoTRIgine (LAMICTAL) 200 MG tablet Take 1.5 tablets by mouth 2 times daily 0 Active take 1 tablet by mark th every twenty-four hours lamoTRIgine 100 MG 1 tablet Orally Once a day Active lamoTRIgine (ERAZO ICTAL) 200 MG tablet Take 275 mg by mouth 2 times daily 0 Active take 3 tablets by mo uth every twenty-four hours lamoTRIgine 25 MG 3 TABLETS Orally Once a day Active lamoTRIgine (ERAZO ICTAL) 200 MG tablet Take 250 mg by mouth 2 times daily 0 Active lamoTRIgine TABS TAKE ONE TABLET 275MG TWICE DAILY Quantity: 0 Refills: 0 Ordered: 09-Dec-2021 DO Active lamoTRIgine (ERAZO ICTAL) 200 MG tablet Take 225-250 mg by mouth 2 times daily 225 mg At 0600 250 mg at 1800 0 Active End: 09-27-2019 take 2 tablets by mouth once daily lamoTRIgine (LAMICTAL) 100 MG tablet Take 200 mg by mouth daily 0 09/27/2019 Discontinued (REORDER) lamoTRIgine (ERAZO ICTAL) 100 MG tablet Take 175 mg by mouth 2 times daily 0 Active lamoTRIgine (ERAZO ICTAL) 100 MG tablet Take 125 mg by mouth 2 times daily 0 Active Comment on above: Take 150 mg by mouth twice daily. Take 300 mg by mouth twice daily. Take 3 tablets by mo ut twice daily. Take 3 tablets by mo [facility] two times a day. levothyroxine sodium 0.125 mg oral tablet (20 sources) l-Thyroxine Start: take 1 tablet by mouth once daily Levothyroxine (Synthroid) 125 mcg tablet Active 125 MCG PO DAILY@0630 1 March 17, 2023 10:28am Takes 1/2 tab (62.5 mcg) on saturdays. 125 mcg tuesday thru tuesday. Start: 11-12-2022 End: 03-17-2023 Levothyroxine (Synthroid) 12 5 mcg tablet Discontinued 125 MCG PO DAILY@0630 November 12, 2022 1:00am March 17, 2023 10:32am Takes 75 mcg on saturdays. 125 mcg tuesday thru tuesday. Start: 01-13-2010 End: 11-12-2022 take 125 ug by mouth once daily Levothyroxine Disconti nued 125 MCG PO Daily at 0630 30 January 14, 2021 12:00am November 12, 2022 1:31am Levothyroxine So dium 125 MCG TAKE 1 TABLET DAILY Active End: 01-31-2021 levothyroxine (SYNTHROID) 75 MCG tablet Take 125 mcg by mouth Daily Patient unsure of exact dose. 0 01/31/2021 Discontinued (Therapy completed) take 2 tablets by mo [facility] once daily levothyroxine (SYNTHROID) 75 MCG tablet Take 150 mcg by mouth Daily Patient unsure of exact dose. 0 Active Comment on above: Take 125 mcg by mout h. Take 1 tablet by mark th DAILY (6 AM). Take 1 tablet by mark th DAILY (6 AM). Takes 1/2 tablet on Saturdays. lisinopril 5 mg oral tablet (20 sources) Angiotensin Converting Enzyme Inhibitor Start: 09-25-2019 End: 01-31-2021 take 5 mg by mouth once daily 5 mg, Oral, NIGHTLY, First dose on Tue09/25/19 at 2345 lutein 20 mg oral tablet (20 sources) Start: 11-12-2022 take 20 mg by mouth once daily Lutein Active 20 MG PO Daily November 12, 2022 1:00am give with meal/snack take 1 capsule by mouth once jordana ly lutein 20 mg cap Take 20 mg by mouth once daily. 0 Active Comment on above: Take 20 mg by mouth once daily. magnesium hydroxide 80 mg/ml oral suspension (1 source) Start: 09-25-2019 take 30 mL by mouth once daily as needed for constipation 30 mL, Oral, DAILY PRN, Constipation, Starting 09/25/19 at 2323 First line therapy for constipation. melatonin 3 mg oral tablet (20 sources) Start: 02-01-2021 melatonin tablet 3 mg Start: 02-01-2021 4.5 mg (rounde d from 5 mg), Oral, NIGHTLY, First dose on 02/01/21 at 0200 Start: 01-13-2021 End: 12-02-2023 take 5 mg by mouth once daily at bedtime Melatonin Discontinued 5 MG PO Daily at bedtime January 14, 2021 12:00am December 02, 2023 11:13am Start: 01-09-2021 take 5 tablets by mo uth once daily melatonin 1 MG tablet Take 5 tablets by mouth nightly 30 tablet 0 01/09/2021 Active Start: 12-27-2020 melatonin tabl et 5 mg take 1 tablet by mark th at bedtime Melatonin 5 MG Oral Tablet Chewable TAKE 1 TABLET Bedtime Quantity: 0 Refills: 0 Ordered: 09-Dec-2021 DO Active Comment on above: Take 5 mg by mouth d aily at bedtime. Misc Natural Products (LUTEIN 20 PO) (20 sources) take 20 mg by mouth once daily Misc Natural Products (LUTEIN 20 PO) Take 20 mg by mouth daily 0 Active Misc Natural Pro ducts (LUTEIN 20 PO) Take by mouth 0 Active Multiple Vitamins-Minerals (THERAPEUTIC MULTIVITAMIN-MINERALS) tablet (20 sources) take 1 tablet by mouth once daily Multiple Vitamins-Minerals (THERAPEUTIC MULTIVITAMIN-MINERALS) tablet Take 1 tablet by mouth daily 0 Active mupirocin 0.02 mg/mg topical ointment (7 sources) RNA Synthetase Inhibitor Antibacterial Star t: 11-11 Mupirocin Active 1 APPLIC TOPICAL Twice daily December 01, 2023 1:00am FreeTextSi application Externally Twice a day; Note: Source Status: Taking; Refills: 0; Qty: 22 Gram; Provider: Jillian Partida Start: 01-05-2021 End: 01-05-2021 mupirocin (BACTROBAN) 2 % oi ntment Mupirocin 2 % 1 application Externally Twice a day for 5 days Active 2 ml ondansetron 2 mg/ml injection (1 source) Serotonin-3 Receptor Antagonist Start: 01-05-2021 take 4 mg by mouth every six hours as needed for nausea 4 mg, Intravenous, EVERY 6 HOURS PRN, Nausea, Vomiting, Starting Tue01/05/21 at 1205 Administer if oral route cannot be used. Post-op polyethylene glycol 3350 99708 mg powder for oral solution (8 sources) Osmotic Laxative Start: 01-07-2021 End: 02-09-2021 polyethylene glycol (GLYCOLAX) packet 17 g Start: 12-21-2020 End: 12-30-2020 polyethylene glycol (GLYCOLA X) packet 17 g Start: 09-27-2019 polyethylene g lycol (GLYCOLAX) packet 17 g sodium chloride 1000 mg oral tablet (17 sources) Start: 03-04-2023 End: 03-18-2023 take 2 tablets by mouth three times daily sodium chloride 1 gram tab Take 2 tablets by mouth three times daily for 14 days. 84 tablet 0 03/04/2023 03/18/2023 Active Start: 01-31-2021 End: 02-06-2021 sodium chloride flush 0.9 % injection 5-40 mL Start: 01-31-2021 End: 02-06-2021 0.9 % sodium chloride infusi on Start: 01-05-2021 take 10 mL intravenous route o nce 10 mL, Intravenous, PRN, Line Care, Starting Tue01/05/21 at 1205 After every IV line use Post-op Start: 12-27-2020 End: 12-27-2020 sodium chloride flush 0.9 % injection 10 mL Start: 12-20-2020 End: 01-05-2021 10 mL, Intravenous, EVERY 12 HOURS SCHEDULED (2 times per day), First dose on Tue01/05/21 at 2100, Post-op Start: 09-27-2019 sodium chlorid e flush 0.9 % injection 10 mL Start: 09-25-2019 10 mL, Intrave nous, EVERY 12 HOURS SCHEDULED (2 times per day), First dose on Tue09/25/19 at 2345 Start: 09-25-2019 take 10 mL intraveno usly once as needed 10 mL, Intravenous, PRN, Line Care, After every IV line use, Starting Tue09/25/19 at 2323 Comment on above: Take 2 tablets by mo [facility] three times daily for 14 days. sulfamethoxazole 400 mg / trimethoprim 80 mg oral tablet (20 sources) Dihydrofolate Reductase Inhibitor Antibacterial, Sulfonamide Antimicrobial Start: End: take 1 tablet by mouth once daily 1 tablet, Oral, DAILY, First dose on Tue09/26/19 at 0900 take 1 tablet by mouth every twe lve hours Bactrim DS 800-160 MG 1 tablet Orally Twice a day for 10 days Active 24 hr tacrolimus 1 mg extended release oral tablet (20 sources) Calcineurin Inhibitor Immunosuppressant Start: 12-02-2023 take 1 tablet by mouth once daily, then take 1 mg by mouth every twenty-four hours Tacrolimus (Envarsus Xr) 1 mg tablet extended release 24 hr Active 3 MG PO Daily December 02, 2023 11:18am Start: 12-01-2023 End: 12-02-2023 take 2 tablets by mouth once daily Tacrolimus Discontinued 0.75 MG PO Daily December 01, 2023 1:00am December 02, 2023 11:18am FreeTextSi TABLETS Orally DAILY; Note: Source Status: Taking; Provider: Jillian Landaverde ( ) Start: 03-04-2023 End: 04-03-2023 take 2 tablets by mouth once daily, then take 6 tablets by mouth in the morning tacrolimus ER (ENVARSUS XR) 1 mg tablet Take 2 tablets by mouth DAILY (6 AM). 60 tablet 0 03/04/2023 Active Start: 11-30-2022 take 2.5 mg by mouth once shania y ENVARSUS XR 1 mg tablet Take 2.5 mg by mouth once daily. 0 11/30/2022 Suspended Start: 11-30-2022 take 1 tablet by mark once daily ENVARSUS XR 1 mg tablet Take 1 mg by mouth once daily. 0 11/30/2022 Active Start: 11-12-2022 End: 03-10-2023 take 1 tablet by mouth once daily, then take 0.75 mg by mouth every twenty-four hours Tacrolimus (Envarsus Xr) 0.75 mg tablet extended release 24 hr Discontinued 1.5 MG PO Daily November 12, 2022 1:00am March 10, 2023 7:09pm Start: 11-12-2022 End: 11-12-2022 take 1 tablet by mouth once daily, then take 1 tablet by mouth every twenty-four hours Tacrolimus (Envarsus Xr) 1 mg tablet extended release 24 hr Discontinued 1 MG PO Daily November 12, 2022 1:00am November 12, 2022 11:18am Start: 01-14-2021 End: 11-12-2022 take 2 mg by mouth once daily Envarsus Discontinued 2 MG PO Daily 0 January 14, 2021 12:00am November 12, 2022 1:27am Start: 01-14-2021 End: 11-12-2022 take 2 mg by mouth once daily Envarsus Discontinued 2 MG PO Daily 0 January 13, 2021 11:00pm November 12, 2022 12:27am Start: 01-14-2021 take 2 mg by mouth once daily Envarsus Active 2 MG PO Daily 0 January 13, 2021 11:00pm Start: 12-26-2020 End: 12-29-2020 tacrolimus (PROGRAF) capsule 1 mg Start: 12-21-2020 End: 12-23-2020 tacrolimus (PROGRAF) capsule 2 mg Start: 09-26-2019 End: 12-02-2023 take 1 tablet by mouth once daily, then take 1 mg by mouth every twenty-four hours Tacrolimus (Envarsus Xr) 1 mg tablet extended release 24 hr Discontinued 2 MG PO Daily November 12, 2022 1:00am December 02, 2023 11:19am take 2 tablets by mo uth every twenty-four hours Envarsus XR 0.75 MG 2 TABLETS Orally DAILY Active take 2 tablets by mo uth every twenty-four hours take 2.5 mg by mouth once daily Tacrolimus 1 MG TB24 Take 2.5 mg by mouth daily 0 Active take 2 tablets by mo uth once daily, then take 1 tablet by mouth once daily Envarsus XR 1 MG Oral Tablet Extended Release 24 Hour TAKE TWO 1MG TABLETS DAILY AND THEN TAKE ONE 0.75 DAILY. Quantity: 0 Refills: 0 Ordered: 09-Dec-2021 DO Active Tacrolimus (ENVA RSUS XR) 1 MG TB24 Take 2.75 mg by mouth daily 0 Active End: 01-31-2021 take 2 mg by mouth once daily Tacrolimus (ENVARSUS XR PO) Take 2 mg by mouth daily 0 01/31/2021 Discontinued (Therapy completed) take 2 mg by mouth once daily Ta crolimus (ENVARSUS XR PO) Take 2 mg by mouth daily 0 Active End: 09-27-2019 tacrolimus (PROGRAF) 1 MG ca psule Take 4 mg by mouth 2 times daily 0 09/27/2019 Discontinued (Stop Taking at Discharge) Comment on above: Take 1 mg by mouth o nce daily. Take 2.5 mg by mouth once daily. Take 2 tablets by mo uth DAILY (6 AM). valGANciclovir 450 mg oral tablet (20 sources) Start: 09-26-2019 take 900 mg by mouth once daily 900 mg, Oral, DAILY, First dose on Tue09/26/19 at 0900 Do not crush or break. End: 01-31-2021 take 2 tablets by mouth once daily valGANciclovir (VALCYTE) 450 MG tablet Take 900 mg by mouth daily 0 01/31/2021 Discontinued (Therapy completed) vancomycin 25 mg/ml oral solution (2 sources) Glycopeptide Antibacterial Start: 07-20-2023 End: 07-28-2023 take 5 mL by mouth four times daily vancomycin (VANCOCIN) 25 mg/mL liqd oral liquid Take 5 mL by mouth four times daily for 32 doses. 160 mL 0 07/20/2023 07/28/2023 Active Start: 01-05-2021 End: 01-05-2021 1,000 mg, Intravenous, ONCE, 1 dose, 01/05/21 at 2200, Post-op Comment on above: Take 5 mL by mouth f our times daily for 32 doses. Completed/Discontinued Medications Medication Drug Class(es) Dates Sig (Normalized) Sig (Original) acac/inulin/c-lose/mv-mn /folic (FIBER PLUS MULITVITAMIN ORAL) (20 sources) acac/inulin/c-lo se/mv-m n/folic (FIBER PLUS MULITVITAMIN ORAL) Take by mouth once daily. 0 Active acac/inulin/c-lo se/mv-mn/folic (FIBER PLUS MULITVITAMIN ORAL) Take by mouth once daily. 0 Suspended Comment on above: Take by mouth once d aily. albuterol 0.833 mg/ml / ipratropium bromide 0.167 mg/ml inhalation solution (19 sources) Anticholinergic, beta2-Adrenergic Agonist Start: 3 take 3 mL by inhalation every four hours as needed ipratropium-albuter ol (DUONEB) 0.5 mg-3 mg(2.5 mg base)/3 mL nebu Inhale 3 mL as instructed every 4 hours as needed for wheezing/shortness of breath. 0 07/18/2023 Active Start: 01-05-2021 End: 01-08-2021 1 ampule, Inhalation, EVERY 4 HOURS WHILE AWAKE, First dose on Tue01/05/21 at 1600 Comment on above: Inhale 3 mL as instr ucted every 4 hours as needed for wheezing/shortness of breath. apixaban 5 mg oral tablet (20 sources) Factor Xa Inhibitor Start: 3 take 1 tablet by mouth twice daily apixaban (ELIQUIS) 5 mg tab(s) Take 1 tablet by mouth two times a day. 180 tablet 3 08/30/2023 Active Start: 03-19-2023 take 1 tablet by mark th twice daily ELIQUIS 5 mg tab(s) Take 1 tablet by mouth twice daily. 0 03/19/2023 Active Start: 03-19-2023 take 1 tablet by mark th twice daily ELIQUIS 5 mg tab(s) Take 1 tablet by mouth twice daily. 0 03/19/2023 Active Start: 03-19-2023 take 1 tablet by mark th twice daily ELIQUIS 5 mg tab(s) Take 1 tablet by mouth twice daily. 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 Take 1 tablet by mouth 2 times daily 180 tablet 1 03/02/2021 03/03/2021 Discontinued (Alternate therapy) Start: 02-15-2021 End: 02-06-2021 take 1 tablet by mouth twice daily apixaban (ELIQUIS) 5 MG TABS tablet Take 1 tablet by mouth 2 times daily 60 tablet 0 02/15/2021 02/06/2021 Discontinued (Stop Taking at Discharge) Start: 02-07-2021 End: 02-06-2021 take 2 tablets by mouth twice daily apixaban (ELIQUIS) 5 MG TABS tablet Take 2 tablets by mouth 2 times daily for 7 days 28 tablet 0 02/07/2021 02/06/2021 Discontinued (Stop Taking at Discharge) Eliquis 5 MG as directed Orally BID for 90 days Active take 1 tablet by mark th once daily Eliquis 5 MG Oral Tablet Take 1 tablet daily Quantity: 0 Refills: 0 Ordered: 09-Dec-2021 DO Active Comment on above: Take 5 mg by mouth t wice daily. Take 1 tablet by mark th twice daily. Take 1 tablet by mark th two times a day. aspirin 81 mg chewable tablet (20 sources) Platelet Aggregation Inhibitor, Nonsteroidal Anti-inflammatory Drug Start: End: take 1 tablet by mouth once daily Aspirin Discontinued 81 MG PO Daily December 01, 2023 1:00am December 02, 2023 11:11am FreeTextSi tablet Orally Once a day; Note: Source Status: Not-Taking\PRN; Provider: Jillian Landaverde ( ) Start: 03-19-2023 take 1 tablet by mark th once daily aspirin, enteric coated (ASPIRIN, ENTERIC COATED) 81 mg EC tablet Take 1 tablet by mouth once daily. 0 03/19/2023 Active Start: 03-19-2023 take 1 tablet by mark th once daily aspirin, enteric coated (ASPIRIN, ENTERIC COATED) 81 mg EC tablet Take 1 tablet by mouth once daily. 0 03/19/2023 Active Start: 03-19-2023 take 1 tablet by mark th once daily aspirin, enteric coated (ASPIRIN, ENTERIC COATED) 81 mg EC tablet Take 1 tablet by mouth once daily. 0 03/19/2023 Active Start: 02-01-2021 End: 01-31-2021 take 81 mg by mouth once daily 81 mg, Oral, DAILY, Fir st dose on 02/01/21 at 0900 Start: 01-14-2021 End: 03-10-2023 take 1 tablet by mouth once daily Aspirin (Children's Aspirin) 81 mg Tablet,Chewable Discontinued 81 MG PO Daily January 14, 2021 12:00am March 10, 2023 7:09pm take 1 tablet by mark th once daily aspirin 81 MG EC tablet Take 81 mg by mouth daily 0 Active take 1 tablet by mark th once daily aspirin 81 MG tablet Take 81 mg by mouth daily 0 Active Comment on above: Take 81 mg by mouth once daily. Take 1 tablet by mark th once daily. Azithromycin (2 sources) Macrolide Antimicrobial Start: 12-02-2023 End: 03-07-2024 Azithromycin Discontinued 0 PO .COMPLEX December 02, 2023 1:00am March 07, 2024 9:27am For 250 mg dose pack: take 500 mg today (day 1), then 250 mg for 4 days (days 2-5) PO Start: 12-02-2023 Azithromycin A ctive 0 PO .COMPLEX December 02, 2023 12:00am For 250 mg dose pack: take 500 mg today (day 1), then 250 mg for 4 days (days 2-5) PO 30 ml bupivacaine hydrochloride 5 mg/ml injection (1 source) Amide Local Anesthetic Start: 12-26-2020 End: 12-26-2020 bupivacaine (PF) (MARCAINE) 0.5 % injection 200 mg Start: 12-26-2020 End: 12-26-2020 bupivacaine (PF) (MARCAINE) 0.5 % injection 200 mg calcium chloride 0.0014 meq/ ml / potassium chloride 0.004 meq/ml / sodium chloride 0.103 meq/ml / sodium lactate 0.028 meq/ml injectable solution (5 sources) Start: 12-26-2020 End: 12-29-2020 lactated ringers infusion Start: 12-23-2020 End: 12-23-2020 lactated ringers infusion Start: 12-20-2020 End: 12-23-2020 Intravenous, at 125 mL/hr, C ONTINUOUS, Starting 12/20/20 at 2230 Total IVF including tube feeds at 125cc/h Start: 09-25-2019 End: 09-27-2019 Intravenous, at 50 mL/hr, CO NTINUOUS, Starting 09/25/19 at 2345 Start: 06-22-2019 End: 06-22-2019 lactated ringers infusion 1, 000 mL ceFAZolin (ANCEF) 2000 mg in dextrose 5 % 50 mL IVPB (4 sources) Start: 01-05-2021 End: 01-06-2021 2,000 mg, Intravenous, EVERY 8 HOURS, 2 doses, First dose on Tue01/05/21 at 1800, Last dose on Tue01/06/21 at 0200, Post-op Start: 12-26-2020 End: 12-27-2020 ceFAZolin (ANCEF) 2000 mg in dextrose 5 % 50 mL IVPB Start: 12-21-2020 End: 12-22-2020 ceFAZolin (ANCEF) 2000 mg in dextrose 5 % 50 mL IVPB Start: 12-20-2020 End: 12-21-2020 ceFAZolin (ANCEF) 2000 mg in dextrose 5 % 50 mL IVPB ceftaroline fosamil (TEFLARO ) 600 mg in dextrose 5 % 50 mL IVPB (1 source) Start: 12-23-2020 End: 12-30-2020 ceftaroline fosamil (TEFLARO ) 600 mg in dextrose 5 % 50 mL IVPB chlorhexidine gluconate 1.2 mg/ml mouthwash (1 source) Start: 01-05-2021 End: 01-05-2021 chlorhexidine (PERIDEX) 0.12 % solution 15 mL Start: 01-05-2021 End: 01-05-2021 chlorhexidine (PERIDEX) 0.12 % solution 15 mL cyclobenzaprine hydrochloride 10 mg oral tablet (8 sources) Muscle Relaxant Start: 01-14-2021 End: 01-19-2022 take 10 mg by mouth every eight hours Cyclobenzaprine Discontinued 10 MG PO Every 8 hours 90 30 January 14, 2021 12:00am January 19, 2022 9:48am Start: 09-25-2019 End: 10-04-2019 take 1 tablet by mouth every eight hours cyclobenzaprine (FLEXERIL) 10 MG tablet Take 1 tablet by mouth every 8 hours for 7 days 21 tablet 0 09/27/2019 10/04/2019 Active 100 ml dexmedetomidine 0.004 mg/ml injection (1 source) Central alpha-2 Adrenergic Agonist Start: 12-21-2020 End: 12-23-2020 dexmedetomidine (PRECEDEX) 400 mcg in sodium chloride 0.9 % 100 mL infusion docusate sodium 100 mg oral capsule (6 sources) Start: 01-07-2021 End: 01-31-2021 take 1 capsule by mouth once daily docusate sodium (COLACE, DULCOLAX) 100 MG CAPS Take 100 mg by mouth daily 30 capsule 0 01/10/2021 01/31/2021 Discontinued (Therapy completed) Start: 09-27-2019 docusate sodiu m (COLACE) capsule 100 mg 0.8 ml enoxaparin sodium 100 mg/ml prefilled syringe (14 sources) Low Molecular Weight Heparin Start: 07-20-2023 inject 85 mg by subcutaneous injection every twelve hours enoxaparin (LOVENOX) 80 mg/0.8 mL Inject 0.85 mL subcutaneously every 12 hours. 0 07/20/2023 Active Start: 02-18-2021 End: 03-03-2021 enoxaparin (LOVENOX) 80 MG/0 .8ML injection Inject 0.8 mLs into the skin every 12 hours 14 Syringe 0 02/18/2021 03/03/2021 Discontinued (REORDER) Start: 02-06-2021 End: 02-06-2021 enoxaparin (LOVENOX) injecti on 80 mg Start: 02-06-2021 End: 03-08-2021 enoxaparin (LOVENOX) 150 MG/ ML injection Inject 0.54 mLs into the skin every 12 hours 32.4 mL 0 02/06/2021 03/08/2021 Active Start: 01-07-2021 enoxaparin (LO VENOX) injection 30 mg Start: 12-22-2020 End: 01-05-2021 enoxaparin (LOVENOX) injecti on 30 mg Comment on above: Inject 0.85 mL subcu taneously every 12 hours. Epoetin Livia (8 sources) Erythropoiesis-stimulating Agent End: 12-15-2023 epoetin livia (PROCRIT INJECTION) by INJECTION(UNSPECIFIED PARENTERAL ROUTES) route three times a week. 4950 units m-w-f 0 12/15/2023 Discontinued (Course of therapy completed) epoetin livia (ME OCRIT INJECTION) by INJECTION(UNSPECIFIED PARENTERAL ROUTES) route three times a week. 4950 units m-w-f 0 Active Comment on above: by INJECTION(UNSPECI FIED PARENTERAL ROUTES) route three times a week. 4950 units m-w-f famotidine 20 mg oral tablet (3 sources) Histamine-2 Receptor Antagonist Start: End: take 20 mg by mouth twice daily 20 mg, Oral, 2 TIMES DAILY, First dose on Tue01/05/21 at 2100, Post-op Start: 12-21-2020 End: 12-23-2020 famotidine (PEPCID) injectio n 20 mg Start: 09-26-2019 take 20 mg by mouth once daily 20 mg, Oral, DAILY, First dose on Tue09/26/19 at 0900 Substituted for Ranitidine (ZANTAC). 2 ml fentaNYL 0.05 mg/ml injection (9 sources) Opioid Agonist Start: 02-06-2021 End: 02-06-2021 fentaNYL (SUBLIMAZE) injection 50 mcg Start: 02-06-2021 End: 02-06-2021 fentaNYL (SUBLIMAZE) injecti on 50 mcg Start: 02-06-2021 End: 02-06-2021 fentaNYL (SUBLIMAZE) injecti on 50 mcg Start: 02-06-2021 End: 02-06-2021 fentaNYL (SUBLIMAZE) injecti on 50 mcg Start: 02-06-2021 End: 02-06-2021 fentaNYL (SUBLIMAZE) injecti on 50 mcg Start: 02-06-2021 End: 02-06-2021 fentaNYL (SUBLIMAZE) injecti on 50 mcg Start: 02-06-2021 End: 02-06-2021 fentaNYL (SUBLIMAZE) injecti on 50 mcg Start: 01-04-2021 End: 01-04-2021 fentaNYL (SUBLIMAZE) injecti on 50 mcg Start: 12-20-2020 End: 12-20-2020 fentaNYL (SUBLIMAZE) 100 MCG /2ML injection fentaNYL 20 mcg/mL Infusion (1 source) Start: 12-21-2020 End: 12-22-2020 fentaNYL 20 mcg/mL Infusion fentaNYL 20 mcg/mL SEED CLEANER (1 source) Start: 09-25-2019 End: 09-26-2019 fentaNYL 20 mcg/mL SEED CLEANER FLUoxetine 10 mg oral capsule (20 sources) Serotonin Reuptake Inhibitor Start: 12-01-2023 End: 12-02-2023 take 1 capsule by mouth once daily Fluoxetine Discontinued 10 MG PO Daily December 01, 2023 1:00am December 02, 2023 11:12am FreeText[employer] capsule Orally Once a day; Note: Source Status: Taking; Refills: 1; Provider: Jillian Partida Start: 07-19-2023 take 1 capsule by mo uth once daily FLUoxetine (PROZAC) 10 mg capsule 1 capsule by ORAL/FEEDING TUBE route once daily. 0 07/19/2023 Active take 1 capsule by mo uth every twenty-four hours FLUoxetine HCl 10 MG 1 capsule Orally Once a day for 30 days Active Comment on above: 1 capsule by ORAL/FE EDING TUBE route once daily. furosemide 20 mg oral tablet (8 sources) Loop Diuretic End: 4 take 1 tablet by mouth twice daily furosemide (LASIX) 20 mg tablet Take 20 mg by mouth two times a day. 0 12/15/2023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 Intestinal infection (18 sources) Clostridium difficile diarrhea; Translations: [Enterocolitis due to Clostridium difficile, not specified as recurrent] Onset: 07-18-2023 07-18-2023 Episodic Intestinal obstruction without hernia (20 sources) Intestinal obstruction; Translations: [Unspecified intestinal obstruction, unspecified as to partial versus complete obstruction] Onset: 05-24-2023 05-24-2023 Episodic Nutritional deficiencies (20 sources) Malnutrition (calorie); Translations: [Moderate protein-calorie malnutrition] Onset: 01-08-2021 Resolved: 01-08-2021 01-08-2021 Chronic Open wounds of head; neck; and trunk (4 sources) Laceration without foreign body of scalp, initial encounter; Translations: [LACERATION W/O FB SCALP INITIAL ENC] Onset: 01-02-2022 Episodic Other aftercare (2 sources) Other usp (current) drug therapy; Translations: [OTH RESIN FILTERER CURRENT DRUG THERAPY] Onset: 11-17-2022 Episodic Other aftercare (20 sources) Long-term current use of systemic steroid; Translations: [detention (current) use of systemic steroids] Onset: 05-24-2023 05-24-2023 Episodic Other aftercare (18 sources) Transplant follow-up; Translations: [Other usp (current) drug therapy] Onset: 07-05-2023 07-18-2023 Episodic Other aftercare (1 source) detention (current) use of systemic steroids; Translations: [supervisor intermediates (current) use of systemic steroids] Onset: 05-24-2023 Episodic Other circulatory disease (1 source) Other hypotension; Translations: [Hypotension due to hypovolemia] Onset: 07-18-2023 Episodic Other diseases of veins and lymphatics (18 sources) Iliac vein compression syndrome; 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] Onset: 07-27-2023 Episodic Other diseases of veins and lymphatics (3 sources) Compression of vein; 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] Onset: 08-12-2022 Episodic Other fractures (20 sources) Fracture of transverse process of cervical vertebra; Translations: [Fracture of neck, unspecified, initial encounter] Onset: 09-26-2019 09-27-2019 Episodic Other fractures (20 sources) Fracture of thoracic spine; Translations: [Unspecified fracture of unspecified thoracic vertebra, initial encounter for closed fracture] Onset: 09-26-2019 09-27-2019 Episodic Other fractures (20 sources) Fracture of transverse process of lumbar vertebra; Translations: [Unspecified fracture of unspecified lumbar vertebra, initial encounter for closed fracture] Onset: 09-26-2019 09-27-2019 Episodic Other fractures (1 source) Closed fracture lumbar vertebra, posterior arch Episodic Other fractures (20 sources) Fracture of manubrium sterni; Translations: [Fracture of manubrium, initial encounter for closed fracture] Onset: 09-26-2019 09-27-2019 Episodic Other fractures (1 source) Closed fracture of seventh cervical vertebra Episodic Other fractures (1 source) Closed fracture lumbar vertebra, transverse process Episodic Other gastrointestinal disorders (1 source) Diarrhea; Translations: [Diarrhea, unspecified type] Episodic Other gastrointestinal disorders (18 sources) Oropharyngeal dysphagia; Translations: [Dysphagia, oropharyngeal phase] Onset: 06-24-2023 07-18-2023 Episodic Other gastrointestinal disorders (18 sources) Dysphagia; Translations: [Dysphagia, unspecified] Onset: 07-04-2023 07-05-2023 Episodic Other gastrointestinal disorders (1 source) Dysphagia, oropharyngeal phase; Translations: [Dysphagia, oropharyngeal] Onset: 07-18-2023 Episodic Other injuries and conditions due to external causes (20 sources) Systemic inflammatory response syndrome; Translations: [Systemic inflammatory response syndrome (SIRS) of non-infectious origin without acute organ dysfunction] Onset: 01-25-2018 2018 Episodic Other injuries and conditions due to external causes (1 source) Other specified injuries of head, initial encounter; Translations: [OTH SPEC INJURIES HEAD INITIAL ENC] Onset: 01-04-2022 Episodic Other nervous system disorders (18 sources) Abnormal gait; Translations: [Other abnormalities of gait and mobility] Onset: 06-24-2023 07-18-2023 Episodic Other non-traumatic joint disorders (4 sources) Pain in right shoulder; Translations: [PAIN IN RIGHT SHOULDER] Onset: 06-21-2022 Episodic Pneumonia (except that caused by tuberculosis or sexually transmitted disease) (20 sources) Community acquired pneumonia; Translations: [Unspecified bacterial pneumonia] Onset: 2018 2018 Episodic Pulmonary heart disease (20 sources) Pulmonary embolism; Translations: [Other pulmonary embolism without acute cor pulmonale] Onset: 01-31-2021 Episodic Residual codes; unclassified (20 sources) Pain; Translations: [Pain, unspecified] Resolved: 03-24-2021 Episodic Residual codes; unclassified (4 sources) Localized edema; Translations: [Edema] Onset: 03-13-2023 03-13-2023 Episodic Residual codes; unclassified (18 sources) Finding of activity of daily living; Translations: [Other general symptoms and signs] Onset: 06-24-2023 07-18-2023 Episodic Residual codes; unclassified (1 source) Other specified postprocedural states; Translations: [S/P brain surgery] Onset: 06-26-2023 Episodic Residual codes; unclassified (1 source) Other general symptoms and signs; Translations: [Alteration in self-care ability] Onset: 07-18-2023 Episodic Schizophrenia and other psychotic disorders (12 sources) Brief psychotic disorder; Translations: [Unspecified psychosis] Onset: 11-10-2022 11-11-2022 Episodic Septicemia (except in labor) (20 sources) Sepsis; Translations: [Sepsis, unspecified organism] Onset: 01-22-2018 Resolved: 2018 2018 Episodic Skull and face fractures (20 sources) Fractured nasal bones; Translations: [Closed fracture of nasal bones] Onset: 09-26-2019 09-27-2019 Episodic Unclassified (3 sources) Never smoked tobacco; Translations: [Never a smoker] Urinary tract infections (18 sources) Acute cystitis; Translations: [Acute cystitis without hematuria] Onset: 06-25-2023 07-01-2023 Episodic Viral infection (1 source) COVID-19 Results Test Name Value Interpretation Reference Range Facility Acetaminophenon 03-01-2024 Acetaminophen [Mass/Vol] ug/mL Low 10-30 [facility] Comment on above: Performed By: #### R ENLuiza IPF, CDP #### [facility] [address] [place] [address] [place] [address] Registered Dietetic Technician: Aixa Gu MD Basic Metabolic Profon 03-01 Anion gap [Moles/Vol] 12 mmol/L Normal - [facility] Comment on above: Performed By: #### R LINDA IPF, CDP #### [address] [place] [address] Registered Dietetic Technician: Aixa Gu MD BUN/CRE Ratio 14 Normal - [facility] Comment on above: Performed By: #### R ENLuiza, IPF, CDP #### [facility] [address] [place] [address] Registered Dietetic Technician: Aixa Gu MD Calcium [Mass/Vol] 9.7 mg/dL Normal 8.6-10.4 [facility] Comment on above: Performed By: #### R ENP, IPF, CDP #### [address] [place], [place] [id number] Registered Dietetic Technician: Aixa Gu MD Chloride [Moles/Vol] 100 mmol/L Normal 98-107 [facility] Comment on above: Performed By: #### R TERRY MCKEON, CDP #### [facility] [address] [place], [place] [id number] Registered Dietetic Technician: Aixa Gu MD CO2 [Moles/Vol] 21 mmol/L Normal 20-31 [facility] Comment on above: Performed By: #### R TERRY MCKEON, CDP #### [facility] [address] [place] [address] Registered Dietetic Technician: Aixa Gu MD Creatinine [Mass/Vol] 1.9 mg/dL High 0.7-1.2 [facility] Comment on above: Performed By: #### R TERRY MCKEON, CDP #### [address] [place], [facility]83 Registered Dietetic Technician: Aixa Gu MD GFR/1.73 sq M.predicted among non-blacks MDRD (S/P/Bld) [Vol rate/Area] 40 mL/min/{1.73_m2} Low >60 [facility] Comment on above: Result Comment: These results are not intended for use in patients <18 years of age. eGFR results are calculated without a race factor using the 2020 CKD-EPI equation. Careful clinical correlation is recommended, particularly when comparing to results calculated using previous equations. The CKD-EPI equation is less accurate in patients with extremes of muscle mass, extra-renal metabolism of creatine, excessive creatine ingestion, or following therapy that affects renal tubular secretion. Performed By: #### R TERRY MCKEON, CDP #### [facility] [address] [place] [address] Registered Dietetic Technician: Aixa Gu MD Glucose [Mass/Vol] 127 mg/dL High 70-99 [facility] Comment on above: Performed By: #### R TERRY MCKEON, CDP #### [facility] [address] [place], [place] [id number] Registered Dietetic Technician: Aixa Gu MD Potassium [Moles/Vol] 4.4 mmol/L Normal 3.7-5.3 [facility] Comment on above: Performed By: #### R ENP IPF, CDP #### [facility] [address] [place], [place] [id number] Registered Dietetic Technician: Aixa Gu MD Sodium [Moles/Vol] 133 mmol/L Low 135-144 [facility] Comment on above: Performed By: #### R LINDA IPF, CDP #### [facility] [address] [place], [place] [address] Registered Dietetic Technician: Aixa Gu MD Urea nitrogen [Mass/Vol] 26 mg/dL High 6-20 [facility] Comment on above: Performed By: #### R TERRY MCKEON, CDP #### [facility] [address] [place], [place] [id number] Registered Dietetic Technician: Aixa Gu MD Salicylateon 03-01-2024 Salicylate <1.0 Low 3-10 [facility] Comment on above: Performed By: #### R LINDA IPF, CDP #### [facility] [address] [place], [place] [id number] Registered Dietetic Technician: Aixa Gu MD Acetaminophen Levelon 2023 Acetaminophen [Mass/Vol] ug/mL Low 10 - 30 ug/mL [facility] Interpretation and review of laboratory results Abnormal [facility] Basic Metabolic Panelon 02-08 Anion gap [Moles/Vol] 12 mmol/L 9 - 17 mmol/L [facility] Calcium [Mass/Vol] 9.7 mg/dL 8.6 - 10. 4 mg/dL [facility] Chloride [Moles/Vol] 100 mmol/L 98 - 10 7 mmol/L [facility] CO2 [Moles/Vol] 21 mmol/L 20 - 31 mmol/L [facility] Creatinine [Mass/Vol] 1.9 mg/dL High 0.7 - 1.2 mg/dL [facility] Est, Glom Filt Rate 40 Low - [facility] Comment on above: These results are not intended for use in patients <18 years of age. eGFR results are calculated without a race factor using the 2020 CKD-EPI equation. Careful clinical correlation is recommended, particularly when comparing to results calculated using previous equations. The CKD-EPI equation is less accurate in patients with extremes of muscle mass, extra-renal metabolism of creatine, excessive creatine ingestion, or following therapy that affects renal tubular secretion. Glucose [Mass/Vol] 127 mg/dL High 70 - 99 mg/dL [facility] Potassium [Moles/Vol] 4.4 mmol/L 3.7 - 5.3 mmol/L [facility] Sodium [Moles/Vol] 133 mmol/L Low 135 - 144 mmol/L [facility] Urea nitrogen [Mass/Vol] 26 mg/dL High 6 - 20 mg/dL [facility] Urea nitrogen/Creatinine [Mass ratio] 14 mg/mg 9 - 20 [facility] CBC with Auto Differentialon 02-29-2024 Basophils (Bld) [#/Vol] 0.03 10*3/uL [facility] Basophils/100 WBC (Bld) 0 % 0 - 2 % [facility] Eosinophils (Bld) [#/Vol] 0.05 10*3/uL [facility] Eosinophils/100 WBC (Bld) 1 % 1 - 4 % [facility] Erythrocyte distribution width (RBC) [Ratio] 12.3 % 11.8 - 14.4 % [facility] Hematocrit (Bld) [Volume fraction] 43.0 % 40.7 - 50.3 % [facility] Hemoglobin (Bld) [Mass/Vol] 14.4 g/dL 13.0 - 17.0 g/dL [facility] Immature granulocytes (Bld) [#/Vol] [facility] Immature granulocytes/100 WBC (Bld) 0 % 0 [facility] Lymphocytes/100 WBC (Bld) 40 % 24 - 43 % [facility] Lymphocytes/100 WBC (Bld) 3.41 % [facility] MCH (RBC) [Entitic mass] 31.1 pg 25.2 - 33.5 pg [facility] MCHC (RBC) [Mass/Vol] 33.5 g/dL 28.4 - 34.8 g/dL [facility] MCV (RBC) [Entitic vol] 92.9 fL 82.6 - 102.9 fL [facility] Monocytes/100 WBC (Bld) 9 % 3 - 12 % [facility] Monocytes/100 WBC (Bld) 0.81 % [facility] Neutrophils/100 WBC (Bld) 50 % 36 - 65 % [facility] Nucleated RBC/100 WBC (Bld) [Ratio] 0.0 % 0.0 per 100 WBC [facility] Platelet mean volume (Bld) [Entitic vol] 9.3 fL 8.1 - 13.5 fL [facility] Platelets (Bld) [#/Vol] 255 10*3/uL [facility] RBC (Bld) [#/Vol] 4.63 10*6/uL 4.21 - 5.7 7 m/uL [facility] Segmented neutrophils/100 WBC (Bld) 4.31 % [facility] WBC other (Bld) [#/Vol] 8.6 [facility] CBC with Diffon 02-29-2024 Abs. Basophil 0.03 k/uL Normal 0.00-0.20 [facility] Comment on above: Performed By: #### R ENLuiza, IPF, CDP #### [facility] [address] [place] [address] Registered Dietetic Technician: Aixa Gu MD Abs.Imm.Granulocyte <0.03 Normal 0.00-0.30 [facility] Comment on above: Performed By: #### R ENP, IPF, CDP #### [facility] [address] [place] [address] Registered Dietetic Technician: Aixa Gu MD Abs.Neutrophil (Seg) 4.31 k/uL Normal 1.50-8.10 [facility] Comment on above: Performed By: #### R LINDA IPF, CDP #### [address] [place], [place] [id number] Registered Dietetic Technician: Aixa Gu MD Basophils/100 WBC (Bld) 0 % Normal 0-2 [facility] Comment on above: Performed By: #### R LINDA IPF, CDP #### [address] [place], [facility]83 Registered Dietetic Technician: Aixa Gu MD Eosinophils (Bld) [#/Vol] 0.05 10*3/uL Normal 0.00-0.44 [facility] Comment on above: Performed By: #### R LINDA IPF, CDP #### [address] [place], [facility]83 Registered Dietetic Technician: Aixa Gu MD Eosinophils/100 WBC (Bld) 1 % Normal 1-4 [facility] Comment on above: Performed By: #### R TERRY MCKEON, CDP #### [address] [place], [facility]83 Registered Dietetic Technician: Aixa Gu MD Erythrocyte distribution width (RBC) [Ratio] 12.3 % Normal 11.8-14.4 [facility] Comment on above: Performed By: #### R LINDA IPF, CDP #### [address] [place], [facility]83 Registered Dietetic Technician: Aixa Gu MD Hematocrit (Bld) [Volume fraction] 43.0 % Normal 40.7-50.3 [facility] Comment on above: Performed By: #### R ENP IPF, CDP #### [address] [place], [place] [id number] Registered Dietetic Technician: Aixa Gu MD Hemoglobin (Bld) [Mass/Vol] 14.4 g/dL Normal 13.0-17.0 [facility] Comment on above: Performed By: #### R TERRY MCKEON, CDP #### [facility] [address] [place], [place] [id number] Registered Dietetic Technician: Aixa Gu MD Immature granulocytes/100 WBC (Bld) 0 % Normal 0 [facility] Comment on above: Performed By: #### R LINDA IPF, CDP #### [facility] [address] [place] [address] Registered Dietetic Technician: Aixa Gu MD Lymphocytes (Bld) [#/Vol] 3.41 10*3/uL Normal 1.10-3.70 [facility] Comment on above: Performed By: #### Yonathan MCKEON IPF, CDP #### [address] [place], [place] [address] Registered Dietetic Technician: Aixa Gu MD Lymphocytes/100 WBC (Bld) 40 % Normal 24-43 [facility] Comment on above: Performed By: #### TERRY Win ENP, CDP #### [address] [place], [place] [address]83 Registered Dietetic Technician: Aixa Gu MD MCH (RBC) [Entitic mass] 31.1 pg Normal 25.2-33.5 [facility] Comment on above: Performed By: #### R TERRY MCKEON, CDP #### [address] [place], [place] [id number] Registered Dietetic Technician: Aixa Gu MD MCHC (RBC) [Mass/Vol] 33.5 g/dL Normal 28.4-34.8 [facility] Comment on above: Performed By: #### R LINDA IPF, CDP #### [facility] [address] [place] [address] Registered Dietetic Technician: Aixa Gu MD MCV (RBC) [Entitic vol] 92.9 fL Normal 82.6-102.9 [facility] Comment on above: Performed By: #### R ENP, IPF, CDP #### [facility] [address] [place], [place] [id number] Registered Dietetic Technician: Aixa Gu MD Monocytes (Bld) [#/Vol] 0.81 10*3/uL Normal 0.10-1.20 [facility] Comment on above: Performed By: #### R ENP, IPF, CDP #### [facility] [address] [place], [place] [address] Registered Dietetic Technician: Aixa Gu MD Monocytes/100 WBC (Bld) 9 % Normal 3-12 [facility] Comment on above: Performed By: #### R ENLuiza, IPF, CDP #### [facility] [address] [place], [facility]83 Registered Dietetic Technician: Aixa Gu MD Neutrophil (Seg) 50 % Normal 36-65 [facility] Comment on above: Performed By: #### R ENLuiza, IPF, CDP #### [facility] [address] [place], [place] [address] Registered Dietetic Technician: Aixa Gu MD NRBC Automated 0.0 per 100 WBC Normal 0.0 [facility] Comment on above: Performed By: #### R ENLuiza, IPF, CDP #### [facility] [address] [place], [facility]83 Registered Dietetic Technician: Aixa Gu MD Platelet mean volume (Bld) [Entitic vol] 9.3 fL Normal 8.1-13.5 [facility] Comment on above: Performed By: #### R ENP, IPF, CDP #### [facility] [address] [place] [address] Registered Dietetic Technician: Aixa Gu MD Platelets (Bld) [#/Vol] 255 10*3/uL Normal 138-453 [facility] Comment on above: Performed By: #### R ENP, IPF, CDP #### [facility] [address] [place] [address] Registered Dietetic Technician: Aixa Gu MD RBC (Bld) [#/Vol] 4.63 10*6/uL Normal 4.21-5.77 [facility] Comment on above: Performed By: #### R TERRY MCKEON, CDP #### [facility] [address] [place], [place] [address] Registered Dietetic Technician: Aixa Gu MD WBC (Bld) [#/Vol] 8.6 10*3/uL Normal 3.5-11.3 [facility] Comment on above: Performed By: #### R TERRY MCKEON, CDP #### [facility] [address] [place] [address] Registered Dietetic Technician: Aixa Gu MD No Panel Informationon 02-28 Interpretation and review of laboratory results Abnormal [facility] Salicylateon 02-29-2024 Salicylates [Mass/Vol] mg/dL Low 3 - 10 mg/dL [facility] CBC with Auto Differentialon 01-02-2024 Basophils (Bld) [#/Vol] 0.05 10*3/uL [facility] Basophils/100 WBC (Bld) 1 % 0 - 2 % [facility] Eosinophils (Bld) [#/Vol] 0.32 10*3/uL [facility] Eosinophils/100 WBC (Bld) 5 % High 1 - 4 % [facility] Erythrocyte distribution width (RBC) [Ratio] 14.6 % High 11.8 - 14.4 % [facility] Hematocrit (Bld) [Volume fraction] 42.8 % 40.7 - 50.3 % [facility] Hemoglobin (Bld) [Mass/Vol] 13.9 g/dL 13.0 - 17.0 g/dL [facility] Immature granulocytes (Bld) [#/Vol] [facility] Immature granulocytes/100 WBC (Bld) 0 % 0 [facility] Interpretation and review of laboratory results Abnormal [facility] Lymphocytes/100 WBC (Bld) 46 % High 24 - 43 % [facility] Lymphocytes/100 WBC (Bld) 3.08 % [facility] MCH (RBC) [Entitic mass] 30.5 pg 25.2 - 33.5 pg [facility] MCHC (RBC) [Mass/Vol] 32.5 g/dL 28.4 - 34.8 g/dL [facility] MCV (RBC) [Entitic vol] 93.9 fL 82.6 - 102.9 fL [facility] Monocytes/100 WBC (Bld) 10 % 3 - 12 % [facility] Monocytes/100 WBC (Bld) 0.63 % [facility] Neutrophils/100 WBC (Bld) 38 % 36 - 65 % [facility] Nucleated RBC/100 WBC (Bld) [Ratio] 0.0 % 0.0 per 100 WBC [facility] Platelet mean volume (Bld) [Entitic vol] 9.6 fL 8.1 - 13.5 fL [facility] Platelets (Bld) [#/Vol] 261 10*3/uL [facility] RBC (Bld) [#/Vol] 4.56 10*6/uL 4.21 - 5.7 7 m/uL [facility] Segmented neutrophils/100 WBC (Bld) 2.52 % [facility] WBC other (Bld) [#/Vol] 6.6 [facility] CBC with Diffon 01-02-2024 Abs. Basophil 0.05 k/uL Normal 0.00-0.20 [facility] Comment on above: Performed By: #### R TERRY MCKEON, CDP #### [facility] [address] [place] [address] Registered Dietetic Technician: Aixa Gu MD Abs.Imm.Granulocyte <0.03 Normal 0.00-0.30 [facility] Comment on above: Performed By: #### R TERRY MCKEON, CDP #### [facility] [address] [place], [facility]83 Registered Dietetic Technician: Aixa Gu MD Abs.Neutrophil (Seg) 2.52 k/uL Normal 1.50-8.10 [facility] Comment on above: Performed By: #### R ENP, IPF, CDP #### [address] [place], [place] [address] Registered Dietetic Technician: Aixa Gu MD Basophils/100 WBC (Bld) 1 % Normal 0-2 [facility] Comment on above: Performed By: #### R ENLuiza, IPF, CDP #### [address] [place], [place] [address] Registered Dietetic Technician: Aixa Gu MD Eosinophils (Bld) [#/Vol] 0.32 10*3/uL Normal 0.00-0.44 [facility] Comment on above: Performed By: #### R ENLuiza IPF, CDP #### [address] [place], [facility]83 Registered Dietetic Technician: Aixa Gu MD Eosinophils/100 WBC (Bld) 5 % High 1-4 [facility] Comment on above: Performed By: #### R ENP IPF, CDP #### [address] [place], [facility]83 Registered Dietetic Technician: Aixa Gu MD Erythrocyte distribution width (RBC) [Ratio] 14.6 % High 11.8-14.4 [facility] Comment on above: Performed By: #### R ENP, IPF, CDP #### [address] [place], [place] [id number] Registered Dietetic Technician: Aixa Gu MD Hematocrit (Bld) [Volume fraction] 42.8 % Normal 40.7-50.3 [facility] Comment on above: Performed By: #### R ENP, IPF, CDP #### [address] [place], [facility]83 Registered Dietetic Technician: Aixa Gu MD Hemoglobin (Bld) [Mass/Vol] 13.9 g/dL Normal 13.0-17.0 [facility] Comment on above: Performed By: #### R ENP, IPF, CDP #### [facility] [address] [place], [place] [id number] Registered Dietetic Technician: Aixa Gu MD Immature granulocytes/100 WBC (Bld) 0 % Normal 0 [facility] Comment on above: Performed By: #### R ENP, IPF, CDP #### [facility] [address] [place], [place] [address] Registered Dietetic Technician: Aixa Gu MD Lymphocytes (Bld) [#/Vol] 3.08 10*3/uL Normal 1.10-3.70 [facility] Comment on above: Performed By: #### R ENLuiza IPF, CDP #### [facility] [address] [place], [facility]83 Registered Dietetic Technician: Aixa Gu MD Lymphocytes/100 WBC (Bld) 46 % High 24-43 [facility] Comment on above: Performed By: #### R ENLuiza, IPF, CDP #### [facility] [address] [place], [place] [id number] Registered Dietetic Technician: Aixa Gu MD MCH (RBC) [Entitic mass] 30.5 pg Normal 25.2-33.5 [facility] Comment on above: Performed By: #### R ENP, IPF, CDP #### [facility] [address] [place], [place] [id number] Registered Dietetic Technician: Aixa Gu MD MCHC (RBC) [Mass/Vol] 32.5 g/dL Normal 28.4-34.8 [facility] Comment on above: Performed By: #### R ENP, IPF, CDP #### [facility] [address] [place], [place] [address] Registered Dietetic Technician: Aixa Gu MD MCV (RBC) [Entitic vol] 93.9 fL Normal 82.6-102.9 [facility] Comment on above: Performed By: #### R LINDA IPF, CDP #### [facility] [address] [place], [place] [id number] Registered Dietetic Technician: Aixa Gu MD Monocytes (Bld) [#/Vol] 0.63 10*3/uL Normal 0.10-1.20 [facility] Comment on above: Performed By: #### R LINDA IPF, CDP #### [facility] [address] [place], [place] [id number] Registered Dietetic Technician: Aixa Gu MD Monocytes/100 WBC (Bld) 10 % Normal 3-12 [facility] Comment on above: Performed By: #### TERRY Win ENP, CDP #### [address] [place], [place] [id number] Registered Dietetic Technician: Aixa Gu MD Neutrophil (Seg) 38 % Normal 36-65 [facility] Comment on above: Performed By: #### R TERRY MCKEON, CDP #### [address] [place], [place] 9963583 Registered Dietetic Technician: Aixa Gu MD NRBC Automated 0.0 per 100 WBC Normal 0.0 [facility] Comment on above: Performed By: #### R LINDA IPF, CDP #### [address] [place], [place] [id number] Registered Dietetic Technician: Aixa Gu MD Platelet mean volume (Bld) [Entitic vol] 9.6 fL Normal 8.1-13.5 [facility] Comment on above: Performed By: #### R ENLuiza IPF, CDP #### [address] [place], [place] 3295083 Registered Dietetic Technician: Aixa Gu MD Platelets (Bld) [#/Vol] 261 10*3/uL Normal 138-453 [facility] Comment on above: Performed By: #### R ENP, IPF, CDP #### [facility] [address] [place], [place] 3089683 Registered Dietetic Technician: Aixa Gu MD RBC (Bld) [#/Vol] 4.56 10*6/uL Normal 4.21-5.77 [facility] Comment on above: Performed By: #### R ENP, IPF, CDP #### [facility] [address] [place], [place] [id number] Registered Dietetic Technician: Aixa Gu MD WBC (Bld) [#/Vol] 6.6 10*3/uL Normal 3.5-11.3 [facility] Comment on above: Performed By: #### R ENP, IPF, CDP #### [address] [place], [place] [id number] Registered Dietetic Technician: Aixa Gu MD Renal Function Panelon 01-01 Albumin [Mass/Vol] 4.2 g/dL Normal 3.5-5.2 [facility] Comment on above: Performed By: #### R ENP, IPF, CDP #### [address] [place], [place] 2308783 Registered Dietetic Technician: Aixa Gu MD Anion gap [Moles/Vol] 10 mmol/L Normal 9-17 [facility] Comment on above: Performed By: #### R ENP, IPF, CDP #### [facility] [address] [place] [address] [address] [place], [place] [id number] Registered Dietetic Technician: Aixa Gu MD BUN/CRE Ratio 11 Normal 9-20 [facility] Comment on above: Performed By: #### R ENP, IPF, CDP #### [facility] [address] [place], [place] 2004183 Registered Dietetic Technician: Aixa Gu MD Calcium [Mass/Vol] 10.0 mg/dL Normal 8.6-10.4 [facility] Comment on above: Performed By: #### R TERRY MCKEON, CDP #### [facility] [address] [place] [address] Registered Dietetic Technician: Aixa Gu MD Chloride [Moles/Vol] 106 mmol/L Normal 98-107 [facility] Comment on above: Performed By: #### R ENTERRY Jarrett, CDP #### [facility] [address] [place], [place] [id number] Registered Dietetic Technician: Aixa Gu MD CO2 [Moles/Vol] 25 mmol/L Normal 20-31 [facility] Comment on above: Performed By: #### R TERRY MCKEON, CDP #### [facility] [address] [place], [place] 7273783 Registered Dietetic Technician: Aixa Gu MD Creatinine [Mass/Vol] 1.7 mg/dL High 0.7-1.2 [facility] Comment on above: Performed By: #### R TERRY MCKEON, CDP #### [facility] [address] [place] [address] Registered Dietetic Technician: Aixa Gu MD GFR/1.73 sq M.predicted among non-blacks MDRD (S/P/Bld) [Vol rate/Area] 46 mL/min/{1.73_m2} Low >60 [facility] Comment on above: Result Comment: These results are not intended for use in patients <18 years of age. eGFR results are calculated without a race factor using the 2020 CKD-EPI equation. Careful clinical correlation is recommended, particularly when comparing to results calculated using previous equations. The CKD-EPI equation is less accurate in patients with extremes of muscle mass, extra-renal metabolism of creatine, excessive creatine ingestion, or following therapy that affects renal tubular secretion. Performed By: #### R ENP, IPF, CDP #### [facility] [address] [place] [address] Registered Dietetic Technician: Aixa Gu MD Glucose [Mass/Vol] 92 mg/dL Normal 70-99 [facility] Comment on above: Performed By: #### R LINDA IPF, CDP #### [facility] [address] [place], [place] 3944183 Registered Dietetic Technician: Aixa Gu MD Phosphorus, Inorg. 3.2 mg/dL Normal 2.5-4.5 [facility] Comment on above: Performed By: #### R LINDA IPF, CDP #### [facility] [address] [place], [place] 3256083 Registered Dietetic Technician: Aixa Gu MD Potassium [Moles/Vol] 4.1 mmol/L Normal 3.7-5.3 [facility] Comment on above: Performed By: #### R LINDA IPF, CDP #### [facility] [address] [place], [place] 9663283 Registered Dietetic Technician: Aixa Gu MD Sodium [Moles/Vol] 141 mmol/L Normal 135-144 [facility] Comment on above: Performed By: #### R TERRY MCKEON, CDP #### [facility] [address] [place], [place] [phone] Registered Dietetic Technician: Aixa Gu MD Urea nitrogen [Mass/Vol] 19 mg/dL Normal 6-20 [facility] Comment on above: Performed By: #### R LINDA IPF, CDP #### [facility] [address] [place], [place] 2188383 Registered Dietetic Technician: Aixa Gu MD Albumin [Mass/Vol] 4.2 g/dL 3.5 - 5.2 g/dL [facility] Anion gap [Moles/Vol] 10 mmol/L 9 - 17 mmol/L [facility] Calcium [Mass/Vol] 10.0 mg/dL 8.6 - 10. 4 mg/dL [facility] Chloride [Moles/Vol] 106 mmol/L 98 - 10 7 mmol/L [facility] CO2 [Moles/Vol] 25 mmol/L 20 - 31 mmol/L [facility] Creatinine [Mass/Vol] 1.7 mg/dL High 0.7 - 1.2 mg/dL [facility] GFR/1.73 sq M.predicted MDRD (S/P/Bld) [Vol rate/Area] 46 mL/min/{1.73_m2} Low - PINF [facility] Comment on above: These results are not intended for use in patients <18 years of age. eGFR results are calculated without a race factor using the 2020 CKD-EPI equation. Careful clinical correlation is recommended, particularly when comparing to results calculated using previous equations. The CKD-EPI equation is less accurate in patients with extremes of muscle mass, extra-renal metabolism of creatine, excessive creatine ingestion, or following therapy that affects renal tubular secretion. Glucose [Mass/Vol] 92 mg/dL 70 - 99 mg/dL [facility] Interpretation and review of laboratory results Abnormal [facility] Phosphate [Mass/Vol] 3.2 mg/dL 2.5 - 4 .5 mg/dL [facility] Potassium [Moles/Vol] 4.1 mmol/L 3.7 - 5.3 mmol/L [facility] Sodium [Moles/Vol] 141 mmol/L 135 - 144 mmol/L [facility] Urea nitrogen [Mass/Vol] 19 mg/dL 6 - 20 mg/dL [facility] Urea nitrogen/Creatinine [Mass ratio] 11 mg/mg 9 - 20 [facility] CNPNon 12-28-2023 CNPN Normal [facility] CNOVon 12-21-2023 CNOV Normal [facility] MR Brain WO contraston 12-20 [facility] MRI BRAIN WO IVCONon 024 MRI BRAIN WO IVCON Normal [facility] CNPNon 12-08-2023 CNPN Normal [facility] CBC with Diffon 12-06-2023 Abs. Basophil 0.05 k/uL Normal 0.00-0.20 [facility] Comment on above: Performed By: #### R ENP, CDP #### [facility] [address] [place], [place] [address] Registered Dietetic Technician: Aixa Gu MD Abs.Imm.Granulocyte <0.03 Normal 0.00-0.30 [facility] Comment on above: Performed By: #### R ENP, CDP #### [address] [place] [address] Registered Dietetic Technician: Aixa Gu MD Abs.Neutrophil (Seg) 4.59 k/uL Normal 1.50-8.10 [facility] Comment on above: Performed By: #### R ENP, CDP #### [address] [place] [address] Registered Dietetic Technician: Aixa Gu MD Basophils/100 WBC (Bld) 1 % Normal 0-2 [facility] Comment on above: Performed By: #### R ENLuiza, CDP #### [address] [place], [place] [address] Registered Dietetic Technician: Aixa Gu MD Eosinophils (Bld) [#/Vol] 0.23 10*3/uL Normal 0.00-0.44 [facility] Comment on above: Performed By: #### R ENP, CDP #### [address] [place], [place] [address] Registered Dietetic Technician: Aixa Gu MD Eosinophils/100 WBC (Bld) 3 % Normal 1-4 [facility] Comment on above: Performed By: #### R ENP, CDP #### [address] [place], [place] [address] Registered Dietetic Technician: Aixa Gu MD Erythrocyte distribution width (RBC) [Ratio] 18.7 % High 11.8-14.4 [facility] Comment on above: Performed By: #### R ENP, CDP #### [address] [place], [facility]83 Registered Dietetic Technician: Aixa Gu MD Hematocrit (Bld) [Volume fraction] 41.1 % Normal 40.7-50.3 [facility] Comment on above: Performed By: #### R LINDA, CDP #### [facility] [address] [place], [place] 9400783 Registered Dietetic Technician: Aixa Gu MD Hemoglobin (Bld) [Mass/Vol] 13.0 g/dL Normal 13.0-17.0 [facility] Comment on above: Performed By: #### R LINDA, CDP #### [facility] [address] [place] [address] Registered Dietetic Technician: Aixa Gu MD Immature granulocytes/100 WBC (Bld) 0 % Normal 0 [facility] Comment on above: Performed By: #### R LINDA, CDP #### [address] [place], [facility]83 Registered Dietetic Technician: Aixa Gu MD Lymphocytes (Bld) [#/Vol] 1.73 10*3/uL Normal 1.10-3.70 [facility] Comment on above: Performed By: #### R LINDA, CDP #### [address] [place], [place] 2779383 Registered Dietetic Technician: Aixa Gu MD Lymphocytes/100 WBC (Bld) 24 % Normal 24-43 [facility] Comment on above: Performed By: #### R LINDA, CDP #### [address] [place], [place] 3186983 Registered Dietetic Technician: Aixa Gu MD MCH (RBC) [Entitic mass] 28.7 pg Normal 25.2-33.5 [facility] Comment on above: Performed By: #### R LINDA, CDP #### [address] [place], [place] 0277983 Registered Dietetic Technician: Aixa Gu MD MCHC (RBC) [Mass/Vol] 31.6 g/dL Normal 28.4-34.8 [facility] Comment on above: Performed By: #### R ENP, CDP #### [facility] [address] [place], [place] [address] Registered Dietetic Technician: Aixa Gu MD MCV (RBC) [Entitic vol] 90.7 fL Normal 82.6-102.9 [facility] Comment on above: Performed By: #### R ENP, CDP #### [facility] [address] [place], [facility]83 Registered Dietetic Technician: Aixa Gu MD Monocytes (Bld) [#/Vol] 0.53 10*3/uL Normal 0.10-1.20 [facility] Comment on above: Performed By: #### R ENP, CDP #### [address] [place], [facility]83 Registered Dietetic Technician: Aixa Gu MD Monocytes/100 WBC (Bld) 7 % Normal 3-12 [facility] Comment on above: Performed By: #### R ENP, CDP #### [address] [place], [place] 0227583 Registered Dietetic Technician: Aixa Gu MD Neutrophil (Seg) 65 % Normal 36-65 [facility] Comment on above: Performed By: #### R ENP, CDP #### [address] [place], [place] [address] Registered Dietetic Technician: Aixa Gu MD NRBC Automated 0.0 per 100 WBC Normal 0.0 [facility] Comment on above: Performed By: #### R ENP, CDP #### [address] [place], [facility]83 Registered Dietetic Technician: Aixa Gu MD Platelet mean volume (Bld) [Entitic vol] 10.2 fL Normal 8.1-13.5 [facility] Comment on above: Performed By: #### R ENP, CDP #### [facility] [address] [place], [place] 1113683 Registered Dietetic Technician: Aixa Gu MD Platelets (Bld) [#/Vol] 281 10*3/uL Normal 138-453 [facility] Comment on above: Performed By: #### R ENP, CDP #### [facility] [address] [place], [place] 6168783 Registered Dietetic Technician: Aixa Gu MD RBC (Bld) [#/Vol] 4.53 10*6/uL Normal 4.21-5.77 [facility] Comment on above: Performed By: #### R ENP, CDP #### [address] [place], [place] 2087583 Registered Dietetic Technician: Aixa Gu MD WBC (Bld) [#/Vol] 7.2 10*3/uL Normal 3.5-11.3 [facility] Comment on above: Performed By: #### R ENP, CDP #### [address] [place], [place] 3843583 Registered Dietetic Technician: Aixa Gu MD Renal Function Panelon 12-06 Albumin [Mass/Vol] 4.0 g/dL Normal 3.5-5.2 [facility] Comment on above: Performed By: #### R ENP, CDP #### [address] [place], [place] 8863183 Registered Dietetic Technician: Aixa Gu MD Anion gap [Moles/Vol] 11 mmol/L Normal 9-17 [facility] Comment on above: Performed By: #### R ENP, CDP #### [address] [place], [place] 8617783 Registered Dietetic Technician: Aixa Gu MD BUN/CRE Ratio 12 Normal 9-20 [facility] Comment on above: Performed By: #### R ENP, CDP #### [facility] [address] [place], [place] 8450383 Registered Dietetic Technician: Aixa Gu MD Calcium [Mass/Vol] 9.6 mg/dL Normal 8.6-10.4 [facility] Comment on above: Performed By: #### R ENP, CDP #### [facility] [address] [place] [address] Registered Dietetic Technician: Aixa Gu MD Chloride [Moles/Vol] 105 mmol/L Normal 98-107 [facility] Comment on above: Performed By: #### R ENP, CDP #### [facility] [address] [place] 3952783 Registered Dietetic Technician: Aixa Gu MD CO2 [Moles/Vol] 23 mmol/L Normal 20-31 [facility] Comment on above: Performed By: #### R ENP, CDP #### [facility] [address] [place], [place] 4008783 Registered Dietetic Technician: Aixa Gu MD Creatinine [Mass/Vol] 1.8 mg/dL High 0.7-1.2 [facility] Comment on above: Performed By: #### R ENP, CDP #### [facility] [address] [place], [place] 6353783 Registered Dietetic Technician: Aixa Gu MD GFR/1.73 sq M.predicted among non-blacks MDRD (S/P/Bld) [Vol rate/Area] 43 mL/min/{1.73_m2} Low >60 [facility] Comment on above: Result Comment: These results are not intended for use in patients <18 years of age. eGFR results are calculated without a race factor using the 2020 CKD-EPI equation. Careful clinical correlation is recommended, particularly when comparing to results calculated using previous equations. The CKD-EPI equation is less accurate in patients with extremes of muscle mass, extra-renal metabolism of creatine, excessive creatine ingestion, or following therapy that affects renal tubular secretion. Performed By: #### R ENP, CDP #### [facility] [address] [place], [place] 3652283 Registered Dietetic Technician: Aixa Gu MD Glucose [Mass/Vol] 93 mg/dL Normal 70-99 [facility] Comment on above: Performed By: #### R ENP, CDP #### [facility] [address] [place], [place] 3608083 Registered Dietetic Technician: Aixa Gu MD Phosphorus, Inorg. 3.2 mg/dL Normal 2.5-4.5 [facility] Comment on above: Performed By: #### R ENP, CDP #### [facility] [address] [place], [place] 0255483 Registered Dietetic Technician: Aixa Gu MD Potassium [Moles/Vol] 4.2 mmol/L Normal 3.7-5.3 [facility] Comment on above: Performed By: #### R ENP, CDP #### [facility] [address] [place] [address] [place], [place] 7873383 Registered Dietetic Technician: Aixa Gu MD Sodium [Moles/Vol] 139 mmol/L Normal 135-144 [facility] Comment on above: Performed By: #### R ENP, CDP #### [address] [place], [place] 9574683 Registered Dietetic Technician: Aixa Gu MD Urea nitrogen [Mass/Vol] 22 mg/dL High 6-20 [facility] Comment on above: Performed By: #### R ENP, CDP #### [facility] [address] [place], [place] 2250683 Registered Dietetic Technician: Aixa Gu MD Thyroid Stim. Horm.on 2023 Thyroid Stim. Horm. 3.65 uIU/mL Normal 0.30-5.00 [facility] Comment on above: Performed By: #### R ENP, CDP #### [facility] [address] [place], [place] 7431183 Registered Dietetic Technician: Aixa Gu MD Thyroxine, Freeon 12-06-2023 Thyroxine, Free 1.4 ng/dL Normal 0.9-1.7 [facility] Comment on above: Performed By: #### R ENP, CDP #### [facility] [address] [place] [address] Registered Dietetic Technician: Aixa Gu MD [facility]-2023 CNPN Normal [facility] CNPNon 08-30-2023 CNPN Normal [facility] Thyroxine, Freeon 08-25-2023 Thyroxine, Free 1.5 ng/dL Normal 0.9-1.7 [facility] Comment on above: Performed By: #### R ENP, CDP #### [facility] [address] [place], [place] [phone] Registered Dietetic Technician: Aixa Gu MD CBC with Diffon 08-24-2023 Abs. Basophil 0.03 k/uL Normal 0.00-0.20 [facility] Comment on above: Performed By: #### R ENLuiza, CDP #### [facility] [address] [place] [address] Registered Dietetic Technician: Aixa Gu MD Abs.Imm.Granulocyte <0.03 Normal 0.00-0.30 [facility] Comment on above: Performed By: #### R ENLuiza, CDP #### [facility] [address] [place], [place] 0771783 Registered Dietetic Technician: Aixa Gu MD Abs.Neutrophil (Seg) 1.42 k/uL Low 1.50-8.10 [facility] Comment on above: Performed By: #### R ENP, CDP #### [facility] [address] [place], [place] 2404683 Registered Dietetic Technician: Aixa Gu MD Basophils/100 WBC (Bld) 1 % Normal 0-2 [facility] Comment on above: Performed By: #### R ENLuiza, CDP #### [facility] [address] [place], [place] [address] Registered Dietetic Technician: Aixa Gu MD Eosinophils (Bld) [#/Vol] 0.22 10*3/uL Normal 0.00-0.44 [facility] Comment on above: Performed By: #### R ENP, CDP #### [facility] [address] [place], [place] [address] Registered Dietetic Technician: Aixa Gu MD Eosinophils/100 WBC (Bld) 4 % Normal 1-4 [facility] Comment on above: Performed By: #### R ENP, CDP #### [facility] [address] [place] [address] Registered Dietetic Technician: Aixa Gu MD Erythrocyte distribution width (RBC) [Ratio] 15.2 % High 11.8-14.4 [facility] Comment on above: Performed By: #### R ENP, CDP #### [address] [place] [address] Registered Dietetic Technician: Aixa Gu MD Hematocrit (Bld) [Volume fraction] 35.5 % Low 40.7-50.3 [facility] Comment on above: Performed By: #### R ENP, CDP #### [address] [place], [facility]83 Registered Dietetic Technician: Aixa Gu MD Hemoglobin (Bld) [Mass/Vol] 10.7 g/dL Low 13.0-17.0 [facility] Comment on above: Performed By: #### R ENP, CDP #### [facility] [address] [place], [facility]83 Registered Dietetic Technician: Aixa Gu MD Immature granulocytes/100 WBC (Bld) 0 % Normal 0 [facility] Comment on above: Performed By: #### R ENP, CDP #### [facility] [address] [place], [facility]83 Registered Dietetic Technician: Aixa Gu MD Lymphocytes (Bld) [#/Vol] 4.03 10*3/uL High 1.10-3.70 [facility] Comment on above: Performed By: #### R LINDA, CDP #### [facility] [address] [place] [address] Dr[place], [place] 4360483 Registered Dietetic Technician: Aixa Gu MD Lymphocytes/100 WBC (Bld) 65 % High 24-43 [facility] Comment on above: Performed By: #### R LINDA, CDP #### [address] [place] [address] Registered Dietetic Technician: Aixa Gu MD MCH (RBC) [Entitic mass] 27.8 pg Normal 25.2-33.5 [facility] Comment on above: Performed By: #### R LINDA, CDP #### [address] [place], [place] 1269483 Registered Dietetic Technician: Aixa Gu MD MCHC (RBC) [Mass/Vol] 30.1 g/dL Normal 28.4-34.8 [facility] Comment on above: Performed By: #### R LINDA, CDP #### [address] [place], [place] 6457583 Registered Dietetic Technician: Aixa Gu MD MCV (RBC) [Entitic vol] 92.2 fL Normal 82.6-102.9 [facility] Comment on above: Performed By: #### R LINDA, CDP #### [address] [place] [address] Registered Dietetic Technician: Aixa Gu MD Monocytes (Bld) [#/Vol] 0.52 10*3/uL Normal 0.10-1.20 [facility] Comment on above: Performed By: #### R LINDA, CDP #### [address] [place] [address] Registered Dietetic Technician: Aixa Gu MD Monocytes/100 WBC (Bld) 8 % Normal 3-12 [facility] Comment on above: Performed By: #### R ENP, CDP #### [facility] [address] [place] [address] Registered Dietetic Technician: Aixa Gu MD Neutrophil (Seg) 23 % Low 36-65 [facility] Comment on above: Performed By: #### R ENP, CDP #### [facility] [address] [place], [place] 6772883 Registered Dietetic Technician: Aixa Gu MD NRBC Automated 0.0 per 100 WBC Normal 0.0 [facility] Comment on above: Performed By: #### R ENP, CDP #### [address] [place] [address] Registered Dietetic Technician: Aixa Gu MD Platelet mean volume (Bld) [Entitic vol] 9.9 fL Normal 8.1-13.5 [facility] Comment on above: Performed By: #### R ENP, CDP #### [address] [place] [address] Registered Dietetic Technician: Aixa Gu MD Platelets (Bld) [#/Vol] 277 10*3/uL Normal 138-453 [facility] Comment on above: Performed By: #### R ENP, CDP #### [address] [place] [address] Registered Dietetic Technician: Aixa Gu MD RBC (Bld) [#/Vol] 3.85 10*6/uL Low 4.21-5.77 [facility] Comment on above: Performed By: #### R ENP, CDP #### [address] [place], [place] 9458883 Registered Dietetic Technician: Aixa Gu MD WBC (Bld) [#/Vol] 6.2 10*3/uL Normal 3.5-11.3 [facility] Comment on above: Performed By: #### R ENP, CDP #### [facility] [address] [place], [place] 6403683 Registered Dietetic Technician: Aixa Gu MD Renal Function Panelon 08-24 Albumin [Mass/Vol] 3.5 g/dL Normal 3.5-5.2 [facility] Comment on above: Performed By: #### R ENP, CDP #### [facility] [address] [place], [place] 7289983 Registered Dietetic Technician: Aixa Gu MD Anion gap [Moles/Vol] 7 mmol/L Low 9-17 [facility] Comment on above: Performed By: #### R ENP, CDP #### [address] [place], [place] 5708183 Registered Dietetic Technician: Aixa Gu MD BUN/CRE Ratio 8 Low 9-20 [facility] Comment on above: Performed By: #### R ENP, CDP #### [facility] [address] [place] [address] [place] [place], [place] 6996983 Registered Dietetic Technician: Aixa Gu MD Calcium [Mass/Vol] 9.6 mg/dL Normal 8.6-10.4 [facility] Comment on above: Performed By: #### R ENP, CDP #### [address] [place], [place] 9074083 Registered Dietetic Technician: Aixa Gu MD Chloride [Moles/Vol] 108 mmol/L High 98-107 [facility] Comment on above: Performed By: #### R ENP, CDP #### [facility] [address] [place], [place] 7519283 Registered Dietetic Technician: Aixa Gu MD CO2 [Moles/Vol] 27 mmol/L Normal 20-31 [facility] Comment on above: Performed By: #### R ENP, CDP #### [facility] [address] [place] [address] [place] [address] Registered Dietetic Technician: Aixa Gu MD Creatinine [Mass/Vol] 1.5 mg/dL High 0.7-1.2 [facility] Comment on above: Performed By: #### R ENP, CDP #### [facility] [address] [place] [address] Registered Dietetic Technician: Aixa Gu MD GFR/1.73 sq M.predicted among non-blacks MDRD (S/P/Bld) [Vol rate/Area] 54 mL/min/{1.73_m2} Low >60 [facility] Comment on above: Result Comment: These results are not intended for use in patients <18 years of age. eGFR results are calculated without a race factor using the 2020 CKD-EPI equation. Careful clinical correlation is recommended, particularly when comparing to results calculated using previous equations. The CKD-EPI equation is less accurate in patients with extremes of muscle mass, extra-renal metabolism of creatine, excessive creatine ingestion, or following therapy that affects renal tubular secretion. Performed By: #### R ENP, CDP #### [facility] [address] [place] [address] Registered Dietetic Technician: Aixa Gu MD Glucose [Mass/Vol] 91 mg/dL Normal 70-99 [facility] Comment on above: Performed By: #### R ENLuiza, CDP #### [facility] [address] [place] [address] Registered Dietetic Technician: Aixa Gu MD Phosphorus, Inorg. 3.4 mg/dL Normal 2.5-4.5 [facility] Comment on above: Performed By: #### R ENP, CDP #### [facility] [address] [place] [address] Registered Dietetic Technician: Aixa Gu MD Potassium [Moles/Vol] 4.2 mmol/L Normal 3.7-5.3 [facility] Comment on above: Performed By: #### R ENP, CDP #### [facility] [address] [place], [place] [address] Registered Dietetic Technician: Aixa Gu MD Sodium [Moles/Vol] 142 mmol/L Normal 135-144 [facility] Comment on above: Performed By: #### R LINDA, CDP #### [facility] [address] [place] [address] Registered Dietetic Technician: Aixa Gu MD Urea nitrogen [Mass/Vol] 12 mg/dL Normal 6-20 [facility] Comment on above: Performed By: #### R LINDA, CDP #### [facility] [address] [place], [place] [address] Registered Dietetic Technician: Aixa Gu MD Thyroid Stim. Horm.on 2022 Thyroid Stim. Horm. 0.18 uIU/mL Low 0.30-5.00 [facility] Comment on above: Performed By: #### R LINDA, CDP #### [facility] [address] [place] [address] Registered Dietetic Technician: Aixa Gu MD CNPNon 08-22-2023 CNPN Normal [facility] CNOVon 08-11-2023 CNOV Normal [facility] CNOVon 08-10-2023 CNOV Normal [facility] CYTOMEGALOVIRUS (CMV) DNA, Q UANTITATIVE PCR, PLASMAon 08-09-2023 CMV DNA ARINA+probe Qn (P) Not detected Not Detected [facility] C-REACTIVE PROTEIN (CRP)on 1 CRP [Mass/Vol] <0.9 mg/dL [facility] CBC W Auto Differential pane l (Bld)on 08-08-2023 Basophils (Bld) [#/Vol] 0.06 10*3/uL Normal <0.11 [facility] Comment on above: Order Comment: Speci men Type: BLOOD SPECIMENOrdering Facility: [facility] Address: [address] [place] [address] Performed By: #### 5 7021-8 ####[facility]ORATORYCLIA [id number] [place] [address] [place] Basophils/100 WBC (Bld) 0.9 % Normal [facility] Comment on above: Order Comment: Speci men Type: BLOOD SPECIMENOrdering Facility: [facility] Address: [address] [place] [address] Performed By: #### 5 7021-8 ####[facility]ORATORYCLIA [id number] [place] [address] [place] Differential cell count method Nom (Bld) Auto Normal [facility] Comment on above: Order Comment: Speci men Type: BLOOD SPECIMENOrdering Facility: [facility] Address: [address] [place] [address] Performed By: #### 5 7021-8 ####[facility] LABORATORYCLIA [id number] [place] [address] [place] Eosinophils (Bld) [#/Vol] 0.20 10*3/uL Normal <0.46 [facility] Comment on above: Order Comment: Speci men Type: BLOOD SPECIMENOrdering Facility: [facility] Address: [address] [place] [address] Performed By: #### 5 7021-8 ####[facility] LABORATORYCLIA [id number] [place] [address] [place] Eosinophils/100 WBC (Bld) 3.0 % Normal [facility] Comment on above: Order Comment: Speci men Type: BLOOD SPECIMENOrdering Facility: [facility] Address: [address] [place] [address] Performed By: #### 5 7021-8 ####[facility] LABORATORYCLIA [id number] [place] [address] [place] Erythrocyte distribution width (RBC) [Ratio] 14.4 % Normal 11.5-15.0 [facility] Comment on above: Order Comment: Speci men Type: BLOOD SPECIMENOrdering Facility: [facility] Address: [address] [place] [address] Performed By: #### 5 7021-8 ####[facility] LABORATORYCLIA [id number] [place] [address] [place] Hematocrit (Bld) [Volume fraction] 34.9 % Low 39.0-51.0 [facility] Comment on above: Order Comment: Speci men Type: BLOOD SPECIMENOrdering Facility: [facility] Address: [address] [place] [address] Performed By: #### 5 7021-8 ####[facility] LABORATORYCLIA [id number] [place] [address] [place] Hemoglobin (Bld) [Mass/Vol] 10.6 g/dL Low 13.0-17.0 [facility] Comment on above: Order Comment: Speci men Type: BLOOD SPECIMENOrdering Facility: [facility] Address: [address] [place] [address] Performed By: #### 5 7021-8 ####[facility] LABORATORYCLIA [id number] [place] [address] [place] Immature granulocytes (Bld) [#/Vol] <0.10 k/uL [facility] Immature granulocytes/100 WBC (Bld) 0.2 % Normal [facility] Comment on above: Order Comment: Speci men Type: BLOOD SPECIMENOrdering Facility: [facility] Address: [address] [place] [address] Performed By: #### 5 7021-8 ####[facility] LABORATORYCLIA [id number] [place] [address] [place] Lymphocytes (Bld) [#/Vol] 4.22 10*3/uL High 1.00-4.00 [facility] Comment on above: Order Comment: Speci men Type: BLOOD SPECIMENOrdering Facility: [facility] Address: [address] [place] [address] Performed By: #### 5 7021-8 ####[facility] LABORATORYCLIA [id number] [place] [address] [place] Lymphocytes/100 WBC (Bld) 63.4 % Normal [facility] Comment on above: Order Comment: Speci men Type: BLOOD SPECIMENOrdering Facility: [facility] Address: [address] [place] [address] Performed By: #### 5 7021-8 ####[facility] LABORATORYCLIA [id number] [place] [address] [place] MCH (RBC) [Entitic mass] 28.3 pg Normal 26.0-34.0 [facility] Comment on above: Order Comment: Speci men Type: BLOOD SPECIMENOrdering Facility: [facility] Address: [address] [place] [address] Performed By: #### 5 7021-8 ####[facility] LABORATORYCLIA [id number] [place] [address] [place] MCHC (RBC) [Mass/Vol] 30.4 g/dL Low 30.5-36.0 [facility] Comment on above: Order Comment: Speci men Type: BLOOD SPECIMENOrdering Facility: [facility] Address: [address] [place] [address] Performed By: #### 5 7021-8 ####[facility] LABORATORYCLIA [id number] [place] [address] [place] MCV (RBC) [Entitic vol] 93.1 fL Normal 80.0-100.0 [facility] Comment on above: Order Comment: Speci men Type: BLOOD SPECIMENOrdering Facility: [facility] Address: [address] [place] [address] Performed By: #### 5 7021-8 ####[facility] LABORATORYCLIA [id number] [place] [address] [place] Monocytes (Bld) [#/Vol] 0.71 10*3/uL Normal <0.87 [facility] Comment on above: Order Comment: Speci men Type: BLOOD SPECIMENOrdering Facility: [facility] Address: [address] [place] [address] Performed By: #### 5 7021-8 ####[facility] LABORATORYCLIA [id number] [address] [place] Monocytes/100 WBC (Bld) 10.7 % Normal [facility] Comment on above: Order Comment: Speci men Type: BLOOD SPECIMENOrdering Facility: [facility] Address: [address] [place] [address] Performed By: #### 5 7021-8 ####[facility] LABORATORYCLIA [id number] [place] [address] [place] Neutrophils (Bld) [#/Vol] 1.46 10*3/uL Normal 1.45-7.50 [facility] Comment on above: Order Comment: Speci men Type: BLOOD SPECIMENOrdering Facility: [facility] Address: [address] [place] [address] Performed By: #### 5 7021-8 ####[facility] LABORATORYCLIA [id number] [place] [address] [place] Neutrophils/100 WBC (Bld) 21.8 % Normal [facility] Comment on above: Order Comment: Speci men Type: BLOOD SPECIMENOrdering Facility: [facility] Address: [address] [place] [address] Performed By: #### 5 7021-8 ####[facility] LABORATORYCLIA [id number] [place] [address] [place] Nucleated RBC (Bld) [#/Vol] <0.01 k/uL [facility] Nucleated RBC/100 WBC (Bld) [Ratio] 0.0 /100 WBC Normal [facility] Comment on above: Order Comment: Speci men Type: BLOOD SPECIMENOrdering Facility: [facility] Address: [address] [place] [address] Performed By: #### 5 7021-8 ####[facility] LABORATORYCLIA [id number] [place] [address] [place] Platelet mean volume (Bld) [Entitic vol] 10.5 fL Normal 9.0-12.7 [facility] Comment on above: Order Comment: Speci men Type: BLOOD SPECIMENOrdering Facility: [facility] Address: [address] [place] [address] Performed By: #### 5 7021-8 ####[facility] LABORATORYCLIA [id number] [place] [address] [place] Platelets (Bld) [#/Vol] 364 10*3/uL Normal 150-400 [facility] Comment on above: Order Comment: Speci men Type: BLOOD SPECIMENOrdering Facility: [facility] Address: [address] [place] [address] Performed By: #### 5 7021-8 ####[facility] LABORATORYCLIA [id number] [place] [address] [place] RBC (Bld) [#/Vol] 3.75 10*6/uL Low 4.20-6.00 [facility] Comment on above: Order Comment: Speci men Type: BLOOD SPECIMENOrdering Facility: [facility] Address: [address] [place] [address] Performed By: #### 5 7021-8 ####[facility] LABORATORYCLIA [id number] [place] [address] [place] WBC (Bld) [#/Vol] 6.66 10*3/uL Normal 3.70-11.00 [facility] Comment on above: Order Comment: Speci men Type: BLOOD SPECIMENOrdering Facility: [facility] Address: [address] [place] [address] Performed By: #### 5 7021-8 ####[facility] LABORATORYCLIA [id number] [place] [address] [place] Immature granulocytes (Bld) [#/Vol] 10*3/uL Normal <0.10 [facility] Comment on above: Order Comment: Speci men Type: BLOOD SPECIMENOrdering Facility: [facility] Address: [address] [place] [address] Performed By: #### 5 7021-8 ####[facility] LABORATORYCLIA [id number] [place] [id number] [place] Nucleated RBC (Bld) [#/Vol] 10*3/uL Normal <0.01 [facility] Comment on above: Order Comment: Speci men Type: BLOOD SPECIMENOrdering Facility: [facility] Address: [address] [place] [address] Performed By: #### 5 7021-8 ####[facility] LABORATORYCLIA [id number] [place] [address] [place] CRP SerPl-mCncon 08-08-2023 CRP [Mass/Vol] mg/L Normal <0.9 [facility] Comment on above: Order Comment: Speci men Type: BLOOD SPECIMENOrdering Facility: [facility] Address: [address] [place] [address] Performed By: #### 1 988-5 ####[facility] LABORATORYCLIA [id number] [place] [address] [place] CYTOMEGALOVIRUS (CMV) DNA, Q UANTITATIVE PCR, PLASMAon 08-08-2023 CMV DNA ARINA+probe Qn (P) Not detected Normal Not Detected [facility] Comment on above: Order Comment: Speci men Type: BLOOD SPECIMENOrdering Facility: [facility] Address: [address] [place] [address] Performed By: #### C MVQNT ####[facility] LABCLIA [id number] [place] [address] [place] Comprehensive metabolic 2000 panelon 08-08-2023 Albumin [Mass/Vol] 3.4 g/dL Low 3.9-4.9 [facility] Comment on above: Order Comment: Speci men Type: BLOOD SPECIMENOrdering Facility: [facility] Address: [address] [place] [address] Performed By: #### 2 4323-8 ####[facility] LABORATORYCLIA [id number] [place] [address] [place] ALP [Catalytic activity/Vol] 119 U/L High 38-113 [facility] Comment on above: Order Comment: Speci men Type: BLOOD SPECIMENOrdering Facility: [facility] Address: [address] [place] [address] Performed By: #### 2 4323-8 ####[facility] LABORATORYCLIA [id number] [place] [address] [place] ALT [Catalytic activity/Vol] 32 U/L Normal 10-54 [facility] Comment on above: Order Comment: Speci men Type: BLOOD SPECIMENOrdering Facility: [facility] Address: [address] [place] [address] Performed By: #### 2 4323-8 ####[facility] LABORATORYCLIA [id number] [place] [address] [place] Anion gap [Moles/Vol] 16 mmol/L Normal 9-18 [facility] Comment on above: Order Comment: Speci men Type: BLOOD SPECIMENOrdering Facility: [facility] Address: [address] [place] [address] Performed By: #### 2 4323-8 ####[facility] LABORATORYCLIA [id number] [place] [address] [place] AST [Catalytic activity/Vol] 20 U/L Normal 14-40 [facility] Comment on above: Order Comment: Speci men Type: BLOOD SPECIMENOrdering Facility: [facility] Address: [address] [place] [address] Performed By: #### 2 4323-8 ####[facility] LABORATORYCLIA [id number] [place] [address] [place] Bilirubin [Mass/Vol] 0.2 mg/dL Normal 0.2-1.3 [facility] Comment on above: Order Comment: Speci men Type: BLOOD SPECIMENOrdering Facility: [facility] Address: [address] [place] [address] Performed By: #### 2 4323-8 ####[facility] LABORATORYCLIA [id number] [place] [address] [place] Calcium [Mass/Vol] 9.8 mg/dL Normal 8.5-10.2 [facility] Comment on above: Order Comment: Speci men Type: BLOOD SPECIMENOrdering Facility: [facility] Address: [address] [place] [address] Performed By: #### 2 4323-8 ####[facility] LABORATORYCLIA [id number] [place] [address] [place] Chloride [Moles/Vol] 106 mmol/L High 97-105 [facility] Comment on above: Order Comment: Speci men Type: BLOOD SPECIMENOrdering Facility: [facility] Address: [address] [place] [address] Performed By: #### 2 4323-8 ####[facility] LABORATORYCLIA [id number] [place] [address] [place] CO2 [Moles/Vol] 22 mmol/L Normal 22-30 [facility] Comment on above: Order Comment: Speci men Type: BLOOD SPECIMENOrdering Facility: [facility] Address: [address] [place] [address] Performed By: #### 2 4323-8 ####[facility] LABORATORYCLIA [id number] [place] [id number] [place] Creatinine [Mass/Vol] 1.51 mg/dL High 0.73-1.22 [facility] Comment on above: Order Comment: Speci men Type: BLOOD SPECIMENOrdering Facility: [facility] Address: [address] [place] [address] Performed By: #### 2 4323-8 ####[facility]ORATORYCLIA [id number] [place] [id number] [place] Estimated Glomerular Filtration Rate 54 mL/min/1.73m Low >=60 mL/min/1.73m [facility] Glucose [Mass/Vol] 61 mg/dL Low 74-99 [facility] Comment on above: Order Comment: Speci men Type: BLOOD SPECIMENOrdering Facility: [facility] Address: [address] [place] [address] Result Comment: The [place] [employer] Association (ADA) provides guidance for cutoff values for fasting glucose and random glucose. The ADA defines fasting as no caloric intake for at least 8 hours. Fasting plasma glucose results between 100 to 125 mg/dL indicate increased risk for diabetes (prediabetes).Fasting plasma glucose results greater than or equal to 126 mg/dL meet the criteria for diagnosis of diabetes. In the absence of unequivocal hyperglycemia, results should be confirmed by repeat testing. In a patient with classic symptoms of hyperglycemia or hyperglycemic crisis, random plasma glucose results greater than or equal to 200 mg/dL meet the criteria for diagnosis of diabetes.Reference: Standards of Medical Care in Diabetes 2016, [place] [employer]. Diabetes Care. 2016.39(Suppl 1). Performed By: #### 2 4323-8 ####[facility] LABORATORYCLIA [id number] [place] [id number] [place] Potassium [Moles/Vol] 4.3 mmol/L Normal 3.7-5.1 [facility] Comment on above: Order Comment: Speci men Type: BLOOD SPECIMENOrdering Facility: [facility] Address: [address] [place] [address] Performed By: #### 2 4323-8 ####[facility] LABORATORYCLIA [id number] [place] [id number] [place] Protein [Mass/Vol] 6.3 g/dL Normal 6.3-8.0 [facility] Comment on above: Order Comment: Speci men Type: BLOOD SPECIMENOrdering Facility: [facility] Address: [address] [place] [address] Performed By: #### 2 4323-8 ####[facility] LABORATORYCLIA [id number] [place] [id number] [place] Sodium [Moles/Vol] 144 mmol/L Normal 136-144 [facility] Comment on above: Order Comment: Speci men Type: BLOOD SPECIMENOrdering Facility: [facility] Address: [address] [place] [address] Performed By: #### 2 4323-8 ####[facility] LABORATORYCLIA [id number] [place] [id number] [place] Urea nitrogen [Mass/Vol] 16 mg/dL Normal 9-24 [facility] Comment on above: Order Comment: Speci men Type: BLOOD SPECIMENOrdering Facility: [facility] Address: [address] [place] [address] Performed By: #### 2 4323-8 ####[facility] LABORATORYCLIA [id number] [place] [id number] [place] Creatinine and Glomerular filtration rate.predicted panel (S/P/Bld) 54 mL/min/1.73m??? Low >=60 [facility] Comment on above: Order Comment: Iesha marin Type: BLOOD SPECIMENOrdering Facility: [facility] Address: [address] [place] [address] Result Comment: Dayan mated Glomerular Filtration Rate (eGFR) is calculated using the 2020 CKD-EPI creatinine equation. This equation utilizes serum creatinine, sex, and age as parameters. The creatinine assay has traceable calibration to isotope dilution-mass spectrometry. Refer to KDIGO guidelines for clinical interpretation. In patients with unstable renal function, e.g. those with acute kidney injury, the eGFR may not accurately reflect actual GFR. Performed By: #### 2 4323-8 ####[facility] LABORATORYCLIA [id number] [place] [id number] [place] Laboratory - Chemistry and C hemistry - challengeon 08-08-2023 Magnesium [Mass/Vol] 2.0 mg/dL Normal 1.7-2.3 [facility] Comment on above: Order Comment: Iesha marin Type: BLOOD SPECIMENOrdering Facility: [facility] Address: [address] [place] [address] Performed By: #### 1 9123-9 ####[facility] LABORATORYCLIA [id number] [place] [id number] [place] Phosphate [Mass/Vol] 4.2 mg/dL Normal 2.7-4.8 [facility] Comment on above: Order Comment: Iesha marin Type: BLOOD SPECIMENOrdering Facility: [facility] Address: [address] [place] [address] Performed By: #### 2 777-1 ####[facility] LABORATORYCLIA [id number] [place] [id number] [place] Laboratory - Drug toxicology on 08-08-2023 Tacrolimus (Bld) [Mass/Vol] 4.2 ng/mL Low 5.0-20.0 [facility] Comment on above: Order Comment: Iesha marin Type: BLOOD SPECIMENOrdering Facility: [facility] Address: [address] [place] [address] Result Comment: Nayely vidualized target levels for a given patient will depend on many factors (including the type of organ transplant, time since transplantation, concurrent medications, and other clinical factors), and should be assessed by those health care providers experienced in the management of immunosuppression. Reference ranges and high/low indicator flags are provided as general guidelines only. The treating physician must determine appropriate target levels/dosing based on the specific clinical situation. Test performed by chemiluminescent immunoassay using Cumulux Alinity i. Performed By: #### 1 1253-2 ####[facility] LABCLIA [id number] [place] [address] [place] NT PRO BNPon 08-08-2023 Natriuretic peptide.B prohormone N-Terminal [Mass/Vol] <125 pg/mL [facility] NT-proBNP SerPl-mCncon 08-08 Natriuretic peptide.B prohormone N-Terminal [Mass/Vol] <36 Normal <125 [facility] Comment on above: Order Comment: Speci men Type: BLOOD SPECIMENOrdering Facility: [facility] Address: [address] [place] [address] Performed By: #### 3 3762-6 ####[facility] LABORATORYCLIA [id number] [place] [address] [place] C-REACTIVE PROTEIN (CRP)on CRP [Mass/Vol] <0.9 mg/dL [facility] CBC W Auto Differential pane l (Bld)on 08-04-2023 Basophils (Bld) [#/Vol] 0.05 10*3/uL Normal <0.11 [facility] Comment on above: Order Comment: Speci men Type: BLOOD SPECIMENOrdering Facility: [facility] Address: [address] [place] [address] Performed By: #### 5 7021-8 ####[facility] LABORATORYCLIA [id number] [place] [address] [place] Basophils/100 WBC (Bld) 0.6 % Normal [facility] Comment on above: Order Comment: Speci men Type: BLOOD SPECIMENOrdering Facility: [facility] Address: [address] [place] [address] Performed By: #### 5 7021-8 ####[facility] LABORATORYCLIA [id number] [place] [address] [place] Differential cell count method Nom (Bld) Auto Normal [facility] Comment on above: Order Comment: Speci men Type: BLOOD SPECIMENOrdering Facility: [facility] Address: [address] [place] [address] Performed By: #### 5 7021-8 ####[facility] LABORATORYCLIA [id number] [place] [address] [place] Eosinophils (Bld) [#/Vol] 0.22 10*3/uL Normal <0.46 [facility] Comment on above: Order Comment: Speci men Type: BLOOD SPECIMENOrdering Facility: [facility] Address: [address] [place] [address] Performed By: #### 5 7021-8 ####[facility] LABORATORYCLIA [id number] [place] [address] [place] Eosinophils/100 WBC (Bld) 2.6 % Normal [facility] Comment on above: Order Comment: Speci men Type: BLOOD SPECIMENOrdering Facility: [facility] Address: [address] [place] [address] Performed By: #### 5 7021-8 ####[facility] LABORATORYCLIA [id number] [place] [address] [place] Erythrocyte distribution width (RBC) [Ratio] 14.7 % Normal 11.5-15.0 [facility] Comment on above: Order Comment: Speci men Type: BLOOD SPECIMENOrdering Facility: [facility] Address: [address] [place] [address] Performed By: #### 5 7021-8 ####[facility] LABORATORYCLIA [id number] [place] [address] [place] Hematocrit (Bld) [Volume fraction] 34.0 % Low 39.0-51.0 [facility] Comment on above: Order Comment: Speci men Type: BLOOD SPECIMENOrdering Facility: [facility] Address: [address] [place] [address] Performed By: #### 5 7021-8 ####[facility] LABORATORYCLIA [id number] [place] [id number] [place] Hemoglobin (Bld) [Mass/Vol] 10.4 g/dL Low 13.0-17.0 [facility] Comment on above: Order Comment: Speci men Type: BLOOD SPECIMENOrdering Facility: [facility] Address: [address] [place] [address] Performed By: #### 5 7021-8 ####[facility] LABORATORYCLIA [id number] [place] [address] [place] Immature granulocytes (Bld) [#/Vol] <0.10 k/uL [facility] Immature granulocytes/100 WBC (Bld) 0.2 % Normal [facility] Comment on above: Order Comment: Speci men Type: BLOOD SPECIMENOrdering Facility: [facility] Address: [address] [place] [address] Performed By: #### 5 7021-8 ####[facility] LABORATORYCLIA [id number] [place] [address] [place] Lymphocytes (Bld) [#/Vol] 4.90 10*3/uL High 1.00-4.00 [facility] Comment on above: Order Comment: Speci men Type: BLOOD SPECIMENOrdering Facility: [facility] Address: [address] [place] [address] Performed By: #### 5 7021-8 ####[facility] LABORATORYCLIA [id number] [place] [address] [place] Lymphocytes/100 WBC (Bld) 58.6 % Normal [facility] Comment on above: Order Comment: Speci men Type: BLOOD SPECIMENOrdering Facility: [facility] Address: [address] [place], [place] [address] Performed By: #### 5 7021-8 ####ADEN LABORATORYCLIA [id number] [place] [address] [place] MCH (RBC) [Entitic mass] 29.0 pg Normal 26.0-34.0 [facility] Comment on above: Order Comment: Speci men Type: BLOOD SPECIMENOrdering Facility: [facility] Address: [address] [place] [address] Performed By: #### 5 7021-8 ####ADEN LABORATORYCLIA [id number] [place] [address] [place] MCHC (RBC) [Mass/Vol] 30.6 g/dL Normal 30.5-36.0 [facility] Comment on above: Order Comment: Speci men Type: BLOOD SPECIMENOrdering Facility: [facility] Address: [address] [place] [address] Performed By: #### 5 7021-8 ####ADEN LABORATORYCLIA [id number] [place] [address] [place] MCV (RBC) [Entitic vol] 94.7 fL Normal 80.0-100.0 [facility] Comment on above: Order Comment: Speci men Type: BLOOD SPECIMENOrdering Facility: [facility] Address: [address] [place] [address] Performed By: #### 5 7021-8 ####ADEN LABORATORYCLIA [id number] [place] [address] [place] Monocytes (Bld) [#/Vol] 0.81 10*3/uL Normal <0.87 [facility] Comment on above: Order Comment: Speci men Type: BLOOD SPECIMENOrdering Facility: [facility] Address: [address] [place] [address] Performed By: #### 5 7021-8 ####ADEN LABORATORYCLIA [id number] [place] [address] [place] Monocytes/100 WBC (Bld) 9.7 % Normal [facility] Comment on above: Order Comment: Speci men Type: BLOOD SPECIMENOrdering Facility: [facility] Address: [address] [place] [address] Performed By: #### 5 7021-8 ####ADEN LABORATORYCLIA [id number] [place] [address] [place] Neutrophils (Bld) [#/Vol] 2.36 10*3/uL Normal 1.45-7.50 [facility] Comment on above: Order Comment: Speci men Type: BLOOD SPECIMENOrdering Facility: [facility] Address: [address] [place] [address] Performed By: #### 5 7021-8 ####ADEN LABORATORYCLIA [id number] [place] [address] [place] Neutrophils/100 WBC (Bld) 28.3 % Normal [facility] Comment on above: Order Comment: Speci men Type: BLOOD SPECIMENOrdering Facility: [facility] Address: [address] [place] [address] Performed By: #### 5 7021-8 ####ADEN LABORATORYCLIA [id number] [place] [address] [place] Nucleated RBC (Bld) [#/Vol] <0.01 k/uL [facility] Nucleated RBC/100 WBC (Bld) [Ratio] 0.0 /100 WBC Normal [facility] Comment on above: Order Comment: Speci men Type: BLOOD SPECIMENOrdering Facility: [facility] Address: [address] [place] [address] Performed By: #### 5 7021-8 ####ADEN LABORATORYCLIA [id number] [place] [address] [place] Platelet mean volume (Bld) [Entitic vol] 10.3 fL Normal 9.0-12.7 [facility] Comment on above: Order Comment: Speci men Type: BLOOD SPECIMENOrdering Facility: [facility] Address: [address] [place] [address] Performed By: #### 5 7021-8 ####ADEN LABORATORYCLIA [id number] [place] [address] [place] Platelets (Bld) [#/Vol] 389 10*3/uL Normal 150-400 [facility] Comment on above: Order Comment: Speci men Type: BLOOD SPECIMENOrdering Facility: [facility] Address: [address] [place] [address] Performed By: #### 5 7021-8 ####ADEN LABORATORYCLIA [id number] [place] [address] [place] RBC (Bld) [#/Vol] 3.59 10*6/uL Low 4.20-6.00 [facility] Comment on above: Order Comment: Speci men Type: BLOOD SPECIMENOrdering Facility: [facility] Address: [address] [place] [address] Performed By: #### 5 7021-8 ####ADEN LABORATORYCLIA [id number] [place] [address] [place] WBC (Bld) [#/Vol] 8.36 10*3/uL Normal 3.70-11.00 [facility] Comment on above: Order Comment: Speci men Type: BLOOD SPECIMENOrdering Facility: [facility] Address: [address] [place] [address] Performed By: #### 5 7021-8 ####ADEN LABORATORYCLIA [id number] [place] [address] [place] Immature granulocytes (Bld) [#/Vol] 10*3/uL Normal <0.10 [facility] Comment on above: Order Comment: Speci men Type: BLOOD SPECIMENOrdering Facility: [facility] Address: [address] [place] [address] Performed By: #### 5 7021-8 ####ADEN LABORATORYCLIA [id number] [place] [address] [place] Nucleated RBC (Bld) [#/Vol] 10*3/uL Normal <0.01 [facility] Comment on above: Order Comment: Speci men Type: BLOOD SPECIMENOrdering Facility: [facility] Address: [address] [place] [address] Performed By: #### 5 7021-8 ####ADEN LABORATORYCLIA [id number] [place] [address] [place] CRP SerPl-mCncon 08-04-2023 CRP [Mass/Vol] mg/L Normal <0.9 [facility] Comment on above: Order Comment: Speci men Type: BLOOD SPECIMENOrdering Facility: [facility] Address: [address] [place] [address] Performed By: #### 1 988-5 ####ADEN LABORATORYCLIA [id number] [place] [address] [place] Comprehensive metabolic 2000 panelon 08-04-2023 Albumin [Mass/Vol] 3.5 g/dL Low 3.9-4.9 [facility] Comment on above: Order Comment: Speci men Type: BLOOD SPECIMENOrdering Facility: [facility] Address: [address] [place] [address] Performed By: #### 2 4323-8 ####ADEN LABORATORYCLIA [id number] [place] [id number] [place] ALP [Catalytic activity/Vol] 125 U/L High 38-113 [facility] Comment on above: Order Comment: Speci men Type: BLOOD SPECIMENOrdering Facility: [facility] Address: [address] [place] [address] Performed By: #### 2 4323-8 ####ADEN LABORATORYCLIA [id number] [place] [address] [place] ALT [Catalytic activity/Vol] 41 U/L Normal 10-54 [facility] Comment on above: Order Comment: Speci men Type: BLOOD SPECIMENOrdering Facility: [facility] Address: [address] [place] [address] Performed By: #### 2 4323-8 ####ADEN LABORATORYCLIA [id number] [place] [id number] [place] Anion gap [Moles/Vol] 9 mmol/L Normal 9-18 [facility] Comment on above: Order Comment: Speci men Type: BLOOD SPECIMENOrdering Facility: [facility] Address: [address] [place] [address] Performed By: #### 2 4323-8 ####ADEN LABORATORYCLIA [id number] [place] [address] [place] AST [Catalytic activity/Vol] 25 U/L Normal 14-40 [facility] Comment on above: Order Comment: Speci men Type: BLOOD SPECIMENOrdering Facility: [facility] Address: [address] [place] [address] Performed By: #### 2 4323-8 ####ADEN LABORATORYCLIA [id number] [place] [address] [place] Bilirubin [Mass/Vol] 0.2 mg/dL Normal 0.2-1.3 [facility] Comment on above: Order Comment: Speci men Type: BLOOD SPECIMENOrdering Facility: [facility] Address: [address] [place] [address] Performed By: #### 2 4323-8 ####ADEN LABORATORYCLIA [id number] [place] [address] [place] Calcium [Mass/Vol] 9.7 mg/dL Normal 8.5-10.[address] Comment on above: Order Comment: Speci men Type: BLOOD SPECIMENOrdering Facility: [facility] Address: [address] [place] [address] Performed By: #### 2 4323-8 ####ADEN LABORATORYCLIA [id number] [place] [address] [place] Chloride [Moles/Vol] 104 mmol/L Normal 97-105 [facility] Comment on above: Order Comment: Speci men Type: BLOOD SPECIMENOrdering Facility: [facility] Address: [address] [place] [address] Performed By: #### 2 4323-8 ####ADEN LABORATORYCLIA [id number] [place] [id number] [place] CO2 [Moles/Vol] 28 mmol/L Normal 22-30 [facility] Comment on above: Order Comment: Speci men Type: BLOOD SPECIMENOrdering Facility: [facility] Address: [address] [place] [address] Performed By: #### 2 4323-8 ####ADEN LABORATORYCLIA [id number] [place] [id number] [place] Creatinine [Mass/Vol] 1.50 mg/dL High 0.73-1.22 [facility] Comment on above: Order Comment: Speci men Type: BLOOD SPECIMENOrdering Facility: [facility] Address: [address] [place] [address] Performed By: #### 2 4323-8 ####ADEN LABORATORYCLIA [id number] [place] [address] [place] Estimated Glomerular Filtration Rate 54 mL/min/1.73m Low >=60 mL/min/1.73m [facility] Glucose [Mass/Vol] 78 mg/dL Normal 74-99 [facility] Comment on above: Order Comment: Speci men Type: BLOOD SPECIMENOrdering Facility: [facility] Address: [address] [place] [address] Result Comment: The [place] [employer] Association (ADA) provides guidance for cutoff values for fasting glucose and random glucose. The ADA defines fasting as no caloric intake for at least 8 hours. Fasting plasma glucose results between 100 to 125 mg/dL indicate increased risk for diabetes (prediabetes).Fasting plasma glucose results greater than or equal to 126 mg/dL meet the criteria for diagnosis of diabetes. In the absence of unequivocal hyperglycemia, results should be confirmed by repeat testing. In a patient with classic symptoms of hyperglycemia or hyperglycemic crisis, random plasma glucose results greater than or equal to 200 mg/dL meet the criteria for diagnosis of diabetes.Reference: Standards of Medical Care in Diabetes 2016, [place] [employer]. Diabetes Care. 2016.39(Suppl 1). Performed By: #### 2 4323-8 ####ADEN LABORATORYCLIA [id number] [place] [id number] [place] Potassium [Moles/Vol] 4.7 mmol/L Normal 3.7-5.1 [facility] Comment on above: Order Comment: Speci men Type: BLOOD SPECIMENOrdering Facility: [facility] Address: [address] [place] [address] Performed By: #### 2 4323-8 ####ADEN LABORATORYCLIA [id number] [place] [address] [place] Protein [Mass/Vol] 6.5 g/dL Normal 6.3-8.0 [facility] Comment on above: Order Comment: Speci men Type: BLOOD SPECIMENOrdering Facility: [facility] Address: [address] [place] [address] Performed By: #### 2 4323-8 ####FORTINOC[facility] LABORATORYCLIA [id number] [place] [id number] [place] Sodium [Moles/Vol] 141 mmol/L Normal 136-144 [facility] Comment on above: Order Comment: Speci men Type: BLOOD SPECIMENOrdering Facility: [facility] Address: [address] [place] [address] Performed By: #### 2 4323-8 ####[facility] LABORATORYCLIA [id number] [address] STATES OF [facility] Urea nitrogen [Mass/Vol] 17 mg/dL Normal 9-24 [facility] Comment on above: Order Comment: Speci men Type: BLOOD SPECIMENOrdering Facility: [facility] Address: [address] [place] [address] Performed By: #### 2 4323-8 ####ADEN LABORATORYCLIA [id number] [address] STATES [place] [facility] Creatinine and Glomerular filtration rate.predicted panel (S/P/Bld) 54 mL/min/1.73m??? Low >=60 [facility] Comment on above: Order Comment: Speci men Type: BLOOD SPECIMENOrdering Facility: [facility] Address: [address] [place] [address] Result Comment: Dayan mated Glomerular Filtration Rate (eGFR) is calculated using the 2020 CKD-EPI creatinine equation. This equation utilizes serum creatinine, sex, and age as parameters. The creatinine assay has traceable calibration to isotope dilution-mass spectrometry. Refer to KDIGO guidelines for clinical interpretation. In patients with unstable renal function, e.g. those with acute kidney injury, the eGFR may not accurately reflect actual GFR. Performed By: #### 2 4323-8 ####ADEN LABORATORYCLIA [id number] [place] [address] [place] Laboratory - Chemistry and C hemistry - challengeon 08-04-2023 Magnesium [Mass/Vol] 2.0 mg/dL Normal 1.7-2.3 [facility] Comment on above: Order Comment: Speci men Type: BLOOD SPECIMENOrdering Facility: [facility] Address: [address] [place] [address] Performed By: #### 1 9123-9 ####ADEN LABORATORYCLIA [id number] [place] [address] [place] Phosphate [Mass/Vol] 3.6 mg/dL Normal 2.7-4.8 [facility] Comment on above: Order Comment: Speci men Type: BLOOD SPECIMENOrdering Facility: [facility] Address: [address] [place] [address] Performed By: #### 2 777-1 ####[facility] LABORATORYCLIA [id number] [address] [place] Laboratory - Drug toxicology on 08-04-2023 Tacrolimus (Bld) [Mass/Vol] 4.9 ng/mL Low 5.0-20.0 [facility] Comment on above: Order Comment: Speci men Type: BLOOD SPECIMENOrdering Facility: [facility] Address: [address] [place] [address] Result Comment: Nayely vidualized target levels for a given patient will depend on many factors (including the type of organ transplant, time since transplantation, concurrent medications, and other clinical factors), and should be assessed by those health care providers experienced in the management of immunosuppression. Reference ranges and high/low indicator flags are provided as general guidelines only. The treating physician must determine appropriate target levels/dosing based on the specific clinical situation. Test performed by chemiluminescent immunoassay using Cumulux Alinity i. Performed By: #### 1 1253-2 ####[facility] LABCLIA [id number] [facility] [place] [address] [place] NT PRO BNPon 08-04-2023 Natriuretic peptide.B prohormone N-Terminal [Mass/Vol] <125 pg/mL [facility] NT-proBNP SerPl-mCncon 08-04 Natriuretic peptide.B prohormone N-Terminal [Mass/Vol] <36 Normal <125 [facility] Comment on above: Order Comment: Speci men Type: BLOOD SPECIMENOrdering Facility: [facility] Address: [address] [place] [address] Performed By: #### 3 3762-6 ####ADEN LABORATORYCLIA [id number] [place] [address] [place] C-REACTIVE PROTEIN (CRP)on 1 CRP [Mass/Vol] <0.9 mg/dL [facility] CBC W Auto Differential pane l (Bld)on 08-01-2023 Basophils (Bld) [#/Vol] 0.05 10*3/uL <0.11 k/uL [facility] Basophils/100 WBC (Bld) 0.6 % [facility] Differential cell count method Nom (Bld) Auto [facility] Eosinophils (Bld) [#/Vol] 0.22 10*3/uL <0.46 k/uL [facility] Eosinophils/100 WBC (Bld) 2.5 % [facility] Erythrocyte distribution width (RBC) [Ratio] 14.9 % 11.5 - 15.0 % [facility] Hematocrit (Bld) [Volume fraction] 32.1 % Low 39.0 - 51.0 % [facility] Hemoglobin (Bld) [Mass/Vol] 9.8 g/dL Low 13.0 - 17.0 g/dL [facility] Immature granulocytes (Bld) [#/Vol] <0.10 k/uL [facility] Immature granulocytes/100 WBC (Bld) 0.1 % [facility] Lymphocytes (Bld) [#/Vol] 4.88 10*3/uL High 1.00 - 4.00 k/uL [facility] Lymphocytes/100 WBC (Bld) 56.2 % [facility] MCH (RBC) [Entitic mass] 29.3 pg 26.0 - 34.0 pg [facility] MCHC (RBC) [Mass/Vol] 30.5 g/dL 30.5 - 36.0 g/dL [facility] MCV (RBC) [Entitic vol] 96.1 fL 80.0 - 100.0 fL [facility] Monocytes (Bld) [#/Vol] 0.77 10*3/uL <0.87 k/uL [facility] Monocytes/100 WBC (Bld) 8.9 % [facility] Neutrophils (Bld) [#/Vol] 2.76 10*3/uL 1.45 - 7.50 k/uL [facility] Neutrophils/100 WBC (Bld) 31.7 % [facility] Nucleated RBC (Bld) [#/Vol] <0.01 k/uL [facility] Nucleated RBC/100 WBC (Bld) [Ratio] 0.0 /100 WBC [facility] Platelet mean volume (Bld) [Entitic vol] 9.9 fL 9.0 - 12.7 fL [facility] Platelets (Bld) [#/Vol] 424 10*3/uL High 150 - 400 k/uL [facility] RBC (Bld) [#/Vol] 3.34 10*6/uL Low 4.20 - 6.0 0 m/uL [facility] WBC (Bld) [#/Vol] 8.69 10*3/uL 3.70 - 11. 00 k/uL [facility] Basophils (Bld) [#/Vol] 0.05 10*3/uL Normal <0.11 [facility] Comment on above: Order Comment: Speci men Type: BLOOD SPECIMENOrdering Facility: [facility] Address: [address] [place] [address] Performed By: #### 5 7021-8 ####ADEN LABORATORYCLIA [id number] [place] [address] [place] Basophils/100 WBC (Bld) 0.6 % Normal [facility] Comment on above: Order Comment: Speci men Type: BLOOD SPECIMENOrdering Facility: [facility] Address: [address] [place] [address] Performed By: #### 5 7021-8 ####ADEN LABORATORYCLIA [id number] [place] [address] [place] Differential cell count method Nom (Bld) Auto Normal [facility] Comment on above: Order Comment: Speci men Type: BLOOD SPECIMENOrdering Facility: [facility] Address: [address] [place] [address] Performed By: #### 5 7021-8 ####ADEN LABORATORYCLIA [id number] [place] [address] [place] Eosinophils (Bld) [#/Vol] 0.22 10*3/uL Normal <0.46 [facility] Comment on above: Order Comment: Speci men Type: BLOOD SPECIMENOrdering Facility: [facility] Address: [address] [place] [address] Performed By: #### 5 7021-8 ####ADEN LABORATORYCLIA [id number] [place] [address] [place] Eosinophils/100 WBC (Bld) 2.5 % Normal [facility] Comment on above: Order Comment: Speci men Type: BLOOD SPECIMENOrdering Facility: [facility] Address: [address] [place] [address] Performed By: #### 5 7021-8 ####ADEN LABORATORYCLIA [id number] [place] [address] [place] Erythrocyte distribution width (RBC) [Ratio] 14.9 % Normal 11.5-15.0 [facility] Comment on above: Order Comment: Speci men Type: BLOOD SPECIMENOrdering Facility: [facility] Address: [address] [place] [address] Performed By: #### 5 7021-8 ####ADEN LABORATORYCLIA [id number] [place] [address] [place] Hematocrit (Bld) [Volume fraction] 32.1 % Low 39.0-51.0 [facility] Comment on above: Order Comment: Speci men Type: BLOOD SPECIMENOrdering Facility: [facility] Address: [address] [place] [address] Performed By: #### 5 7021-8 ####ADEN LABORATORYCLIA [id number] [place] [address] [place] Hemoglobin (Bld) [Mass/Vol] 9.8 g/dL Low 13.0-17.0 [facility] Comment on above: Order Comment: Speci men Type: BLOOD SPECIMENOrdering Facility: [facility] Address: [address] [place] [address] Performed By: #### 5 7021-8 ####ADEN LABORATORYCLIA [id number] [place] [id number] [place] Immature granulocytes (Bld) [#/Vol] 10*3/uL Normal <0.10 [facility] Comment on above: Order Comment: Speci men Type: BLOOD SPECIMENOrdering Facility: [facility] Address: [address] [place] [address] Performed By: #### 5 7021-8 ####ADEN LABORATORYCLIA [id number] [place] [address] [place] Immature granulocytes/100 WBC (Bld) 0.1 % Normal [facility] Comment on above: Order Comment: Speci men Type: BLOOD SPECIMENOrdering Facility: [facility] Address: [address] [place] [address] Performed By: #### 5 7021-8 ####ADEN LABORATORYCLIA [id number] [place] [address] [place] Lymphocytes (Bld) [#/Vol] 4.88 10*3/uL High 1.00-4.00 [facility] Comment on above: Order Comment: Speci men Type: BLOOD SPECIMENOrdering Facility: [facility] Address: [address] [place] [address] Performed By: #### 5 7021-8 ####ADEN LABORATORYCLIA [id number] [place] [address] [place] Lymphocytes/100 WBC (Bld) 56.2 % Normal [facility] Comment on above: Order Comment: Speci men Type: BLOOD SPECIMENOrdering Facility: [facility] Address: [address] [place] [address] Performed By: #### 5 7021-8 ####ADEN LABORATORYCLIA [id number] [place] [address] [place] MCH (RBC) [Entitic mass] 29.3 pg Normal 26.0-34.0 [facility] Comment on above: Order Comment: Speci men Type: BLOOD SPECIMENOrdering Facility: [facility] Address: [address] [place] [address] Performed By: #### 5 7021-8 ####ADEN LABORATORYCLIA [id number] [place] [address] [place] MCHC (RBC) [Mass/Vol] 30.5 g/dL Normal 30.5-36.0 [facility] Comment on above: Order Comment: Speci men Type: BLOOD SPECIMENOrdering Facility: [facility] Address: [address] [place] [address] Performed By: #### 5 7021-8 ####ADEN LABORATORYCLIA [id number] [place] [address] [place] MCV (RBC) [Entitic vol] 96.1 fL Normal 80.0-100.0 [facility] Comment on above: Order Comment: Speci men Type: BLOOD SPECIMENOrdering Facility: [facility] Address: [address] [place] [address] Performed By: #### 5 7021-8 ####ADEN LABORATORYCLIA [id number] [place] [address] [place] Monocytes (Bld) [#/Vol] 0.77 10*3/uL Normal <0.87 [facility] Comment on above: Order Comment: Speci men Type: BLOOD SPECIMENOrdering Facility: [facility] Address: [address] [place] [address] Performed By: #### 5 7021-8 ####ADEN LABORATORYCLIA [id number] [place] [address] [place] Monocytes/100 WBC (Bld) 8.9 % Normal [facility] Comment on above: Order Comment: Speci men Type: BLOOD SPECIMENOrdering Facility: [facility] Address: [address] [place] [address] Performed By: #### 5 7021-8 ####ADEN LABORATORYCLIA [id number] [place] [address] [place] Neutrophils (Bld) [#/Vol] 2.76 10*3/uL Normal 1.45-7.50 [facility] Comment on above: Order Comment: Speci men Type: BLOOD SPECIMENOrdering Facility: [facility] Address: [address] [place] [address] Performed By: #### 5 7021-8 ####ADEN LABORATORYCLIA [id number] [place] [address] [place] Neutrophils/100 WBC (Bld) 31.7 % Normal [facility] Comment on above: Order Comment: Speci men Type: BLOOD SPECIMENOrdering Facility: [facility] Address: [address] [place] [address] Performed By: #### 5 7021-8 ####ADEN LABORATORYCLIA [id number] [place] [address] [place] Nucleated RBC (Bld) [#/Vol] 10*3/uL Normal <0.01 [facility] Comment on above: Order Comment: Speci men Type: BLOOD SPECIMENOrdering Facility: [facility] Address: [address] [place] [address] Performed By: #### 5 7021-8 ####ADEN LABORATORYCLIA [id number] [place] [address] [place] Nucleated RBC/100 WBC (Bld) [Ratio] 0.0 /100 WBC Normal [facility] Comment on above: Order Comment: Speci men Type: BLOOD SPECIMENOrdering Facility: [facility] Address: [address] [place] [address] Performed By: #### 5 7021-8 ####ADEN LABORATORYCLIA [id number] [place] [address] [place] Platelet mean volume (Bld) [Entitic vol] 9.9 fL Normal 9.0-12.7 [facility] Comment on above: Order Comment: Speci men Type: BLOOD SPECIMENOrdering Facility: [facility] Address: [address] [place] [address] Performed By: #### 5 7021-8 ####ADEN LABORATORYCLIA [id number] [place] [address] [place] Platelets (Bld) [#/Vol] 424 10*3/uL High 150-400 [facility] Comment on above: Order Comment: Speci men Type: BLOOD SPECIMENOrdering Facility: [facility] Address: [address] [place] [address] Performed By: #### 5 7021-8 ####ADEN LABORATORYCLIA [id number] [place] [address] [place] RBC (Bld) [#/Vol] 3.34 10*6/uL Low 4.20-6.00 [facility] [facility] Comment on above: Order Comment: Speci men Type: BLOOD SPECIMENOrdering Facility: [facility] Address: [address] [place] [address] Performed By: #### 5 7021-8 ####ADEN LABORATORYCLIA [id number] [place] [address] [place] WBC (Bld) [#/Vol] 8.69 10*3/uL Normal 3.70-11.00 [facility] Comment on above: Order Comment: Speci men Type: BLOOD SPECIMENOrdering Facility: [facility] Address: [address] [place] [address] Performed By: #### 5 7021-8 ####ADEN LABORATORYCLIA [id number] [place] [address] [place] CRP [facility] 08-01-2023 CRP [Mass/Vol] mg/L Normal <0.9 [facility] Comment on above: Order Comment: Speci men Type: BLOOD SPECIMENOrdering Facility: [facility] Address: [address] [place] [address] Performed By: #### 1 988-5 ####ADEN LABORATORYCLIA [id number] [place] [address] [place] CYTOMEGALOVIRUS (CMV) DNA, Q UANTITATIVE PCR, [facility] 08-01-2023 CMV DNA ARINA+probe Qn (P) Not detected Not Detected [facility] CMV DNA ARINA+probe Qn (P) Not detected Normal Not Detected [facility] Comment on above: Order Comment: Speci men Type: BLOOD SPECIMENOrdering Facility: [facility] Address: [address] [place] [address] Performed By: #### C MVQNT ####[facility] LABCLIA [id number] EUCD [address] [facility] Comprehensive metabolic 2000 panelon 08-01-2023 Albumin [Mass/Vol] 3.4 g/dL Low 3.9 - 4.9 g/dL [facility] ALP [Catalytic activity/Vol] 127 U/L High 38 - 113 U/L [facility] ALT [Catalytic activity/Vol] 56 U/L High 10 - 54 U/L [facility] Anion gap [Moles/Vol] 7 mmol/L Low 9 - 18 mmol/L [facility] AST [Catalytic activity/Vol] 36 U/L 14 - 40 U/L [facility] Bilirubin [Mass/Vol] 0.3 mg/dL 0.2 - 1 .3 mg/dL [facility] Calcium [Mass/Vol] 9.6 mg/dL 8.5 - 10. 2 mg/dL [facility] Chloride [Moles/Vol] 107 mmol/L High 97 - 10 5 mmol/L [facility] CO2 [Moles/Vol] 26 mmol/L 22 - 30 mmol/L [facility] Creatinine [Mass/Vol] 1.48 mg/dL High 0.73 - 1.22 mg/dL [facility] Estimated Glomerular Filtration Rate 55 mL/min/1.73m Low >=60 mL/min/1.73m [facility] Glucose [Mass/Vol] 85 mg/dL 74 - 99 mg/dL [facility] Potassium [Moles/Vol] 4.9 mmol/L 3.7 - 5.1 mmol/L [facility] Protein [Mass/Vol] 6.2 g/dL Low 6.3 - 8.0 g/dL [facility] Sodium [Moles/Vol] 140 mmol/L 136 - 144 mmol/L [facility] Urea nitrogen [Mass/Vol] 16 mg/dL 9 - 24 mg/dL [facility] Albumin [Mass/Vol] 3.4 g/dL Low 3.9-4.9 [facility] Comment on above: Order Comment: Speci men Type: BLOOD SPECIMENOrdering Facility: [facility] Address: [address] [place] [address] Performed By: #### 2 4323-8 ####ADEN LABORATORYCLIA [id number] [place] [address] [place] ALP [Catalytic activity/Vol] 127 U/L High 38-113 [facility] Comment on above: Order Comment: Speci men Type: BLOOD SPECIMENOrdering Facility: [facility] Address: [address] [place] [address] Performed By: #### 2 4323-8 ####ADEN LABORATORYCLIA [id number] [place] [address] [place] ALT [Catalytic activity/Vol] 56 U/L High 10-54 [facility] Comment on above: Order Comment: Speci men Type: BLOOD SPECIMENOrdering Facility: [facility] Address: [address] [place] [address] Performed By: #### 2 4323-8 ####ADEN LABORATORYCLIA [id number] [place] [address] [place] Anion gap [Moles/Vol] 7 mmol/L Low 9-18 [facility] Comment on above: Order Comment: Speci men Type: BLOOD SPECIMENOrdering Facility: [facility] Address: [address] [place] [address] Performed By: #### 2 4323-8 ####ADEN LABORATORYCLIA [id number] [place] [address] [place] AST [Catalytic activity/Vol] 36 U/L Normal 14-40 [facility] Comment on above: Order Comment: Speci men Type: BLOOD SPECIMENOrdering Facility: [facility] Address: [address] [place] [address] Performed By: #### 2 4323-8 ####ADEN LABORATORYCLIA [id number] [place] [id number] [place] Bilirubin [Mass/Vol] 0.3 mg/dL Normal 0.2-1.3 [facility] Comment on above: Order Comment: Speci men Type: BLOOD SPECIMENOrdering Facility: [facility] Address: [address] [place] [address] Performed By: #### 2 4323-8 ####ADEN LABORATORYCLIA [id number] [place] [address] [place] Calcium [Mass/Vol] 9.6 mg/dL Normal 8.5-10.2 [facility] Comment on above: Order Comment: Speci men Type: BLOOD SPECIMENOrdering Facility: [facility] Address: [address] [place] [address] Performed By: #### 2 4323-8 ####ADEN LABORATORYCLIA [id number] [place] [address] [place] Chloride [Moles/Vol] 107 mmol/L High 97-105 [facility] Comment on above: Order Comment: Speci men Type: BLOOD SPECIMENOrdering Facility: [facility] Address: [address] [place] [address] Performed By: #### 2 4323-8 ####ADEN LABORATORYCLIA [id number] [place] [id number] [place] CO2 [Moles/Vol] 26 mmol/L Normal 22-30 [facility] Comment on above: Order Comment: Speci men Type: BLOOD SPECIMENOrdering Facility: [facility] Address: [address] [place] [address] Performed By: #### 2 4323-8 ####ADEN LABORATORYCLIA [id number] [place] [id number] [place] Creatinine [Mass/Vol] 1.48 mg/dL High 0.73-1.22 [facility] Comment on above: Order Comment: Speci men Type: BLOOD SPECIMENOrdering Facility: [facility] Address: [address] [place] [address] Performed By: #### 2 4323-8 ####ADEN LABORATORYCLIA [id number] [place] [id number] [place] Creatinine and Glomerular filtration rate.predicted panel (S/P/Bld) 55 mL/min/1.73m??? Low >=60 [facility] Comment on above: Order Comment: Iesha marin Type: BLOOD SPECIMENOrdering Facility: [facility] Address: [address] [place] [address] Result Comment: Dayan mated Glomerular Filtration Rate (eGFR) is calculated using the 2020 CKD-EPI creatinine equation. This equation utilizes serum creatinine, sex, and age as parameters. The creatinine assay has traceable calibration to isotope dilution-mass spectrometry. Refer to KDIGO guidelines for clinical interpretation. In patients with unstable renal function, e.g. those with acute kidney injury, the eGFR may not accurately reflect actual GFR. Performed By: #### 2 4323-8 ####ADEN LABORATORYCLIA [id number] [place] [address] [place] Glucose [Mass/Vol] 85 mg/dL Normal 74-99 [facility] Comment on above: Order Comment: Iesha marin Type: BLOOD SPECIMENOrdering Facility: [facility] Address: [address] [place] [address] Result Comment: The [place] Diabetes Association (ADA) provides guidance for cutoff values for fasting glucose and random glucose. The ADA defines fasting as no caloric intake for at least 8 hours. Fasting plasma glucose results between 100 to 125 mg/dL indicate increased risk for diabetes (prediabetes).Fasting plasma glucose results greater than or equal to 126 mg/dL meet the criteria for diagnosis of diabetes. In the absence of unequivocal hyperglycemia, results should be confirmed by repeat testing. In a patient with classic symptoms of hyperglycemia or hyperglycemic crisis, random plasma glucose results greater than or equal to 200 mg/dL meet the criteria for diagnosis of diabetes.Reference: Standards of Medical Care in Diabetes 2016, [place] [employer] Association. Diabetes Care. 2016.39(Suppl 1). Performed By: #### 2 4323-8 ####ADEN LABORATORYCLIA [id number] [place] [address] [place] Potassium [Moles/Vol] 4.9 mmol/L Normal 3.7-5.1 [facility] Comment on above: Order Comment: Speci men Type: BLOOD SPECIMENOrdering Facility: [facility] Address: [address] [place] [address] Performed By: #### 2 4323-8 ####ADEN LABORATORYCLIA [id number] [place] [id number] [place] Protein [Mass/Vol] 6.2 g/dL Low 6.3-8.0 [facility] Comment on above: Order Comment: Speci men Type: BLOOD SPECIMENOrdering Facility: [facility] Address: [address] [place] [address] Performed By: #### 2 4323-8 ####ADEN LABORATORYCLIA [id number] [place] [id number] [place] Sodium [Moles/Vol] 140 mmol/L Normal 136-144 [facility] Comment on above: Order Comment: Speci men Type: BLOOD SPECIMENOrdering Facility: [facility] Address: [address] [place] [address] Performed By: #### 2 4323-8 ####ADEN LABORATORYCLIA [id number] [place] [id number] [place] Urea nitrogen [Mass/Vol] 16 mg/dL Normal 9-24 [facility] Comment on above: Order Comment: Speci men Type: BLOOD SPECIMENOrdering Facility: [facility] Address: [address] [place] [address] Performed By: #### 2 4323-8 ####ADEN LABORATORYCLIA [id number] [place] [id number] [place] MAGNESIUM BLDon 08-01-2023 Magnesium [Mass/Vol] 1.8 mg/dL 1.7 - 2 .3 mg/dL [facility] Magnesium SerPl-mCncon 08-01 Magnesium [Mass/Vol] 1.8 mg/dL Normal 1.7-2.3 [facility] Comment on above: Order Comment: Speci men Type: BLOOD SPECIMENOrdering Facility: [facility] Address: [address] [place] [address] Performed By: #### 1 9123-9 ####ADEN LABORATORYCLIA [id number] [place] [address] [place] NT PRO BNPon 08-01-2023 Natriuretic peptide.B prohormone N-Terminal [Mass/Vol] 41 pg/mL <125 pg/mL [facility] NT-proBNP SerPl-mCncon 08-01 Natriuretic peptide.B prohormone N-Terminal [Mass/Vol] 41 pg/mL Normal <125 [facility] Comment on above: Order Comment: Speci men Type: BLOOD SPECIMENOrdering Facility: [facility] Address: [address] [place] [address] Performed By: #### 3 3762-6 ####ADEN LABORATORYCLIA [id number] [place] [address] [place] PHOSPHORUS INORGANICon 08-01 Phosphate [Mass/Vol] 3.7 mg/dL 2.7 - 4 .8 mg/dL [facility] Phosphate SerPl-ncon 08-01 Phosphate [Mass/Vol] 3.7 mg/dL Normal 2.7-4.8 [facility] Comment on above: Order Comment: Speci men Type: BLOOD SPECIMENOrdering Facility: [facility] Address: [address] [place] [address] Performed By: #### 2 777-1 ####ADEN LABORATORYCLIA [id number] [place] [address] [place] TACROLIMUS/FK-506 BLon 08-01 Tacrolimus (Bld) [Mass/Vol] 3.9 ng/mL Low 5.0 - 20.0 ng/mL [facility] Tacrolimus Bld-mCncon 2022 Tacrolimus (Bld) [Mass/Vol] 3.9 ng/mL Low 5.0-20.0 [facility] Comment on above: Order Comment: Speci men Type: BLOOD SPECIMENOrdering Facility: [facility] Address: [address] [place] [address] Result Comment: Nayely vidualized target levels for a given patient will depend on many factors (including the type of organ transplant, time since transplantation, concurrent medications, and other clinical factors), and should be assessed by those health care providers experienced in the management of immunosuppression. Reference ranges and high/low indicator flags are provided as general guidelines only. The treating physician must determine appropriate target levels/dosing based on the specific clinical situation. Test performed by chemiluminescent immunoassay using Cumulux Alinity i. Performed By: #### 1 1253-2 ####[facility] LABCLIA [id number] [place] [id number] [place] C-REACTIVE PROTEIN (CRP)on CRP [Mass/Vol] 0.4 mg/dL <0.9 mg/dL [facility] CBC W Auto Differential pane l (Bld)on 07-28-2023 Basophils (Bld) [#/Vol] 0.06 10*3/uL <0.11 k/uL [facility] Basophils/100 WBC (Bld) 0.9 % [facility] Differential cell count method Nom (Bld) Auto [facility] Eosinophils (Bld) [#/Vol] 0.16 10*3/uL <0.46 k/uL [facility] Eosinophils/100 WBC (Bld) 2.3 % [facility] Erythrocyte distribution width (RBC) [Ratio] 15.7 % High 11.5 - 15.0 % [facility] Hematocrit (Bld) [Volume fraction] 30.8 % Low 39.0 - 51.0 % [facility] Hemoglobin (Bld) [Mass/Vol] 9.3 g/dL Low 13.0 - 17.0 g/dL [facility] Immature granulocytes (Bld) [#/Vol] 0.03 10*3/uL <0.10 k/uL [facility] Immature granulocytes/100 WBC (Bld) 0.4 % [facility] Lymphocytes (Bld) [#/Vol] 4.31 10*3/uL High 1.00 - 4.00 k/uL [facility] Lymphocytes/100 WBC (Bld) 61.7 % [facility] MCH (RBC) [Entitic mass] 29.5 pg 26.0 - 34.0 pg [facility] MCHC (RBC) [Mass/Vol] 30.2 g/dL Low 30.5 - 36.0 g/dL [facility] MCV (RBC) [Entitic vol] 97.8 fL 80.0 - 100.0 fL [facility] Monocytes (Bld) [#/Vol] 0.64 10*3/uL <0.87 k/uL [facility] Monocytes/100 WBC (Bld) 9.2 % [facility] Neutrophils (Bld) [#/Vol] 1.79 10*3/uL 1.45 - 7.50 k/uL [facility] Neutrophils/100 WBC (Bld) 25.5 % [facility] Nucleated RBC (Bld) [#/Vol] <0.01 k/uL [facility] Nucleated RBC/100 WBC (Bld) [Ratio] 0.0 /100 WBC [facility] Platelet mean volume (Bld) [Entitic vol] 10.2 fL 9.0 - 12.7 fL [facility] Platelets (Bld) [#/Vol] 388 10*3/uL 150 - 400 k/uL [facility] RBC (Bld) [#/Vol] 3.15 10*6/uL Low 4.20 - 6.0 0 m/uL [facility] WBC (Bld) [#/Vol] 6.99 10*3/uL 3.70 - 11. 00 k/uL [facility] Basophils (Bld) [#/Vol] 0.06 10*3/uL Normal <0.11 [facility] Comment on above: Order Comment: Speci men Type: BLOOD SPECIMENOrdering Facility: [facility] Address: [address] [place] [address] Performed By: #### 5 7021-8 ####ADEN LABORATORYCLIA [id number] [place] [address] [place] Basophils/100 WBC (Bld) 0.9 % Normal [facility] Comment on above: Order Comment: Speci men Type: BLOOD SPECIMENOrdering Facility: [facility] Address: [address] [place] [address] Performed By: #### 5 7021-8 ####ADEN LABORATORYCLIA [id number] [place] [address] [place] Differential cell count method Nom (Bld) Auto Normal [facility] Comment on above: Order Comment: Speci men Type: BLOOD SPECIMENOrdering Facility: [facility] Address: [address] [place] [address] Performed By: #### 5 7021-8 ####ADEN LABORATORYCLIA [id number] [place] [address] [place] Eosinophils (Bld) [#/Vol] 0.16 10*3/uL Normal <0.46 [facility] Comment on above: Order Comment: Speci men Type: BLOOD SPECIMENOrdering Facility: [facility] Address: [address] [place] [address] Performed By: #### 5 7021-8 ####ADEN LABORATORYCLIA [id number] [place] [address] [place] Eosinophils/100 WBC (Bld) 2.3 % Normal [facility] Comment on above: Order Comment: Speci men Type: BLOOD SPECIMENOrdering Facility: [facility] Address: [address] [place] [address] Performed By: #### 5 7021-8 ####ADEN LABORATORYCLIA [id number] [place] [address] [place] Erythrocyte distribution width (RBC) [Ratio] 15.7 % High 11.5-15.0 [facility] Comment on above: Order Comment: Speci men Type: BLOOD SPECIMENOrdering Facility: [facility] Address: [address] [place] [address] Performed By: #### 5 7021-8 ####ADEN LABORATORYCLIA [id number] [place] [address] [place] Hematocrit (Bld) [Volume fraction] 30.8 % Low 39.0-51.0 [facility] Comment on above: Order Comment: Speci men Type: BLOOD SPECIMENOrdering Facility: [facility] Address: [address] [place] [address] Performed By: #### 5 7021-8 ####ADEN LABORATORYCLIA [id number] [place] [address] [place] Hemoglobin (Bld) [Mass/Vol] 9.3 g/dL Low 13.0-17.0 [facility] Comment on above: Order Comment: Speci men Type: BLOOD SPECIMENOrdering Facility: [facility] Address: [address] [place] [address] Performed By: #### 5 7021-8 ####ADEN LABORATORYCLIA [id number] [place] [address] [place] Immature granulocytes (Bld) [#/Vol] 0.03 10*3/uL Normal <0.10 [facility] Comment on above: Order Comment: Speci men Type: BLOOD SPECIMENOrdering Facility: [facility] Address: [address] [place] [address] Performed By: #### 5 7021-8 ####ADEN LABORATORYCLIA [id number] [place] [address] [place] Immature granulocytes/100 WBC (Bld) 0.4 % Normal [facility] Comment on above: Order Comment: Speci men Type: BLOOD SPECIMENOrdering Facility: [facility] Address: [address] [place] [address] Performed By: #### 5 7021-8 ####ADEN LABORATORYCLIA [id number] [place] [address] [place] Lymphocytes (Bld) [#/Vol] 4.31 10*3/uL High 1.00-4.00 [facility] Comment on above: Order Comment: Speci men Type: BLOOD SPECIMENOrdering Facility: [facility] Address: [address] [place] [address] Performed By: #### 5 7021-8 ####ADNE LABORATORYCLIA [id number] [place] [id number] [place] Lymphocytes/100 WBC (Bld) 61.7 % Normal [facility] Comment on above: Order Comment: Speci men Type: BLOOD SPECIMENOrdering Facility: [facility] Address: [address] [place] [address] Performed By: #### 5 7021-8 ####ADEN LABORATORYCLIA [id number] [place] [address] [place] MCH (RBC) [Entitic mass] 29.5 pg Normal 26.0-34.0 [facility] Comment on above: Order Comment: Speci men Type: BLOOD SPECIMENOrdering Facility: [facility] Address: [address] [place] [address] Performed By: #### 5 7021-8 ####ADEN LABORATORYCLIA [id number] [place] [address] [place] MCHC (RBC) [Mass/Vol] 30.2 g/dL Low 30.5-36.0 [facility] Comment on above: Order Comment: Speci men Type: BLOOD SPECIMENOrdering Facility: [facility] Address: [address] [place] [address] Performed By: #### 5 7021-8 ####ADEN LABORATORYCLIA [id number] [place] [address] [place] MCV (RBC) [Entitic vol] 97.8 fL Normal 80.0-100.0 [facility] Comment on above: Order Comment: Speci men Type: BLOOD SPECIMENOrdering Facility: [facility] Address: [address] [place] [address] Performed By: #### 5 7021-8 ####ADEN LABORATORYCLIA [id number] [place] [address] [place] Monocytes (Bld) [#/Vol] 0.64 10*3/uL Normal <0.87 [facility] Comment on above: Order Comment: Speci men Type: BLOOD SPECIMENOrdering Facility: [facility] Address: [address] [place] [address] Performed By: #### 5 7021-8 ####ADEN LABORATORYCLIA [id number] [place] [address] [place] Monocytes/100 WBC (Bld) 9.2 % Normal [facility] Comment on above: Order Comment: Speci men Type: BLOOD SPECIMENOrdering Facility: [facility] Address: [address] [place] [address] Performed By: #### 5 7021-8 ####ADEN LABORATORYCLIA [id number] [place] [id number] [place] Neutrophils (Bld) [#/Vol] 1.79 10*3/uL Normal 1.45-7.50 [facility] Comment on above: Order Comment: Speci men Type: BLOOD SPECIMENOrdering Facility: [facility] Address: [address] [place] [address] Performed By: #### 5 7021-8 ####ADEN LABORATORYCLIA [id number] [place] [address] [place] Neutrophils/100 WBC (Bld) 25.5 % Normal [facility] Comment on above: Order Comment: Speci men Type: BLOOD SPECIMENOrdering Facility: [facility] Address: [address] [place] [address] Performed By: #### 5 7021-8 ####ADEN LABORATORYCLIA [id number] [place] [address] [place] Nucleated RBC (Bld) [#/Vol] 10*3/uL Normal <0.01 [facility] Comment on above: Order Comment: Speci men Type: BLOOD SPECIMENOrdering Facility: [facility] Address: [address] [place] [address] Performed By: #### 5 7021-8 ####ADEN LABORATORYCLIA [id number] [place] [address] [place] Nucleated RBC/100 WBC (Bld) [Ratio] 0.0 /100 WBC Normal [facility] Comment on above: Order Comment: Speci men Type: BLOOD SPECIMENOrdering Facility: [facility] Address: [address] [place] [address] Performed By: #### 5 7021-8 ####ADEN LABORATORYCLIA [id number] [place] [address] [place] Platelet mean volume (Bld) [Entitic vol] 10.2 fL Normal 9.0-12.7 [facility] Comment on above: Order Comment: Speci men Type: BLOOD SPECIMENOrdering Facility: [facility] Address: [address] [place] [address] Performed By: #### 5 7021-8 ####ADEN LABORATORYCLIA [id number] [place] [address] [place] Platelets (Bld) [#/Vol] 388 10*3/uL Normal 150-400 [facility] Comment on above: Order Comment: Speci men Type: BLOOD SPECIMENOrdering Facility: [facility] Address: [address] [place] [address] Performed By: #### 5 7021-8 ####ADEN LABORATORYCLIA [id number] [place] [address] [place] RBC (Bld) [#/Vol] 3.15 10*6/uL Low 4.20-6.00 [facility] Comment on above: Order Comment: Speci men Type: BLOOD SPECIMENOrdering Facility: [facility] Address: [address] [place] [address] Performed By: #### 5 7021-8 ####ADEN LABORATORYCLIA [id number] [place] [id number] [place] WBC (Bld) [#/Vol] 6.99 10*3/uL Normal 3.70-11.00 [facility] Comment on above: Order Comment: Speci men Type: BLOOD SPECIMENOrdering Facility: [facility] Address: [address] [place] [address] Performed By: #### 5 7021-8 ####ADEN LABORATORYCLIA [id number] [place] [id number] [place] CRP SerPl-ncon 07-28-2023 CRP [Mass/Vol] 0.4 mg/dL Normal <0.9 [facility] Comment on above: Order Comment: Speci men Type: BLOOD SPECIMENOrdering Facility: [facility] Address: [address] [place] [address] Performed By: #### 1 988-5 ####ADEN LABORATORYCLIA [id number] [place] [address] [place] Comprehensive metabolic 2000 panelon 07-28-2023 Albumin [Mass/Vol] 3.4 g/dL Low 3.9 - 4.9 g/dL [facility] ALP [Catalytic activity/Vol] 131 U/L High 38 - 113 U/L [facility] ALT [Catalytic activity/Vol] 38 U/L 10 - 54 U/L [facility] Anion gap [Moles/Vol] 10 mmol/L 9 - 18 mmol/L [facility] AST [Catalytic activity/Vol] 34 U/L 14 - 40 U/L [facility] Bilirubin [Mass/Vol] 0.2 mg/dL 0.2 - 1 .3 mg/dL [facility] Calcium [Mass/Vol] 9.6 mg/dL 8.5 - 10. 2 mg/dL [facility] Chloride [Moles/Vol] 106 mmol/L High 97 - 10 5 mmol/L [facility] CO2 [Moles/Vol] 26 mmol/L 22 - 30 mmol/L [facility] Creatinine [Mass/Vol] 1.49 mg/dL High 0.73 - 1.22 mg/dL [facility] Estimated Glomerular Filtration Rate 54 mL/min/1.73m Low >=60 mL/min/1.73m [facility] Glucose [Mass/Vol] 77 mg/dL 74 - 99 mg/dL [facility] Potassium [Moles/Vol] 4.5 mmol/L 3.7 - 5.1 mmol/L [facility] Protein [Mass/Vol] 6.2 g/dL Low 6.3 - 8.0 g/dL [facility] Sodium [Moles/Vol] 142 mmol/L 136 - 144 mmol/L [facility] [facility] Urea nitrogen [Mass/Vol] 17 mg/dL 9 - 24 mg/dL [facility] Albumin [Mass/Vol] 3.4 g/dL Low 3.9-4.9 [facility] Comment on above: Order Comment: Speci men Type: BLOOD SPECIMENOrdering Facility: [facility] Address: [address] [place] [address] Performed By: #### 2 4323-8 ####ADEN LABORATORYCLIA [id number] [place] [address] [place] ALP [Catalytic activity/Vol] 131 U/L High 38-113 [facility] Comment on above: Order Comment: Speci men Type: BLOOD SPECIMENOrdering Facility: [facility] Address: [address] [place] [address] Performed By: #### 2 4323-8 ####ADEN LABORATORYCLIA [id number] [place] [id number] [place] ALT [Catalytic activity/Vol] 38 U/L Normal 10-54 [facility] Comment on above: Order Comment: Speci men Type: BLOOD SPECIMENOrdering Facility: [facility] Address: [address] [place] [address] Performed By: #### 2 4323-8 ####ADEN LABORATORYCLIA [id number] [place] [address] [place] Anion gap [Moles/Vol] 10 mmol/L Normal 9-18 [facility] Comment on above: Order Comment: Speci men Type: BLOOD SPECIMENOrdering Facility: [facility] Address: [address] [place] [address] Performed By: #### 2 4323-8 ####ADEN LABORATORYCLIA [id number] [place] [address] [place] AST [Catalytic activity/Vol] 34 U/L Normal 14-40 [facility] Comment on above: Order Comment: Speci men Type: BLOOD SPECIMENOrdering Facility: [facility] Address: [address] [place] [address] Performed By: #### 2 4323-8 ####ADEN LABORATORYCLIA [id number] [place] [id number] [place] Bilirubin [Mass/Vol] 0.2 mg/dL Normal 0.2-1.3 [facility] Comment on above: Order Comment: Speci men Type: BLOOD SPECIMENOrdering Facility: [facility] Address: [address] [place] [address] Performed By: #### 2 4323-8 ####ADEN LABORATORYCLIA [id number] [place] [address] [place] Calcium [Mass/Vol] 9.6 mg/dL Normal 8.5-10.2 [facility] Comment on above: Order Comment: Speci men Type: BLOOD SPECIMENOrdering Facility: [facility] Address: [address] [place] [address] Performed By: #### 2 4323-8 ####ADEN LABORATORYCLIA [id number] [place] [address] [place] Chloride [Moles/Vol] 106 mmol/L High 97-105 [facility] Comment on above: Order Comment: Speci men Type: BLOOD SPECIMENOrdering Facility: [facility] Address: [address] [place] [address] Performed By: #### 2 4323-8 ####ADEN LABORATORYCLIA [id number] [place] [address] [place] CO2 [Moles/Vol] 26 mmol/L Normal 22-30 [facility] Comment on above: Order Comment: Speci men Type: BLOOD SPECIMENOrdering Facility: [facility] Address: [address] [place] [address] Performed By: #### 2 4323-8 ####ADEN LABORATORYCLIA [id number] [place] [address] [place] Creatinine [Mass/Vol] 1.49 mg/dL High 0.73-1.22 [facility] Comment on above: Order Comment: Speci men Type: BLOOD SPECIMENOrdering Facility: [facility] Address: [address] [place] [address] Performed By: #### 2 4323-8 ####ADEN LABORATORYCLIA [id number] [place] [address] [place] Creatinine and Glomerular filtration rate.predicted panel (S/P/Bld) 54 mL/min/1.73m??? Low >=60 [facility] Comment on above: Order Comment: Speci men Type: BLOOD SPECIMENOrdering Facility: [facility] Address: [address] [place] [address] Result Comment: Dayan mated Glomerular Filtration Rate (eGFR) is calculated using the 2020 CKD-EPI creatinine equation. This equation utilizes serum creatinine, sex, and age as parameters. The creatinine assay has traceable calibration to isotope dilution-mass spectrometry. Refer to KDIGO guidelines for clinical interpretation. In patients with unstable renal function, e.g. those with acute kidney injury, the eGFR may not accurately reflect actual GFR. Performed By: #### 2 4323-8 ####ADEN LABORATORYCLIA [id number] [place] [address] [place] Glucose [Mass/Vol] 77 mg/dL Normal 74-99 [facility] Comment on above: Order Comment: Speci men Type: BLOOD SPECIMENOrdering Facility: [facility] Address: [address] [place] [address] Result Comment: The [place] Diabetes Association (ADA) provides guidance for cutoff values for fasting glucose and random glucose. The ADA defines fasting as no caloric intake for at least 8 hours. Fasting plasma glucose results between 100 to 125 mg/dL indicate increased risk for diabetes (prediabetes).Fasting plasma glucose results greater than or equal to 126 mg/dL meet the criteria for diagnosis of diabetes. In the absence of unequivocal hyperglycemia, results should be confirmed by repeat testing. In a patient with classic symptoms of hyperglycemia or hyperglycemic crisis, random plasma glucose results greater than or equal to 200 mg/dL meet the criteria for diagnosis of diabetes.Reference: Standards of Medical Care in Diabetes 2016, [place] [employer] Association. Diabetes Care. 2016.39(Suppl 1). Performed By: #### 2 4323-8 ####ADEN LABORATORYCLIA [id number] [place] [id number] [place] Potassium [Moles/Vol] 4.5 mmol/L Normal 3.7-5.1 [facility] Comment on above: Order Comment: Speci men Type: BLOOD SPECIMENOrdering Facility: [facility] Address: [address] [place] [address] Performed By: #### 2 4323-8 ####ADEN LABORATORYCLIA [id number] [place] [address] [place] Protein [Mass/Vol] 6.2 g/dL Low 6.3-8.0 [facility] Comment on above: Order Comment: Speci men Type: BLOOD SPECIMENOrdering Facility: [facility] Address: [address] [place] [address] Performed By: #### 2 4323-8 ####ADEN LABORATORYCLIA [id number] [place] [address] [place] Sodium [Moles/Vol] 142 mmol/L Normal 136-144 [facility] Comment on above: Order Comment: Speci men Type: BLOOD SPECIMENOrdering Facility: [facility] Address: [address] [place] [address] Performed By: #### 2 4323-8 ####ADEN LABORATORYCLIA [id number] [place] [address] [place] Urea nitrogen [Mass/Vol] 17 mg/dL Normal 9-24 [facility] Comment on above: Order Comment: Speci men Type: BLOOD SPECIMENOrdering Facility: [facility] Address: [address] [place] [address] Performed By: #### 2 4323-8 ####ADEN LABORATORYCLIA [id number] [place] [address] [place] MAGNESIUM BLDon 07-28-2023 Magnesium [Mass/Vol] 2.0 mg/dL 1.7 - 2 .3 mg/dL [facility] Magnesium [facility] Homel-ncon 07-28 Magnesium [Mass/Vol] 2.0 mg/dL Normal 1.7-2.3 [facility] Comment on above: Order Comment: Speci men Type: BLOOD SPECIMENOrdering Facility: [facility] Address: [address] [place] [address] Performed By: #### 1 9123-9 ####ADEN LABORATORYCLIA [id number] [place] [address] [place] NT PRO BNPon 07-28-2023 Natriuretic peptide.B prohormone N-Terminal [Mass/Vol] <125 pg/mL [facility] NT-proBNP SerPl-mCncon 07-28 Natriuretic peptide.B prohormone N-Terminal [Mass/Vol] <36 Normal <125 [facility] Comment on above: Order Comment: Speci men Type: BLOOD SPECIMENOrdering Facility: [facility] Address: [address] [place] [address] Performed By: #### 3 3762-6 ####ADEN LABORATORYCLIA [id number] [place] [address] [place] PHOSPHORUS INORGANICon 07-28 Phosphate [Mass/Vol] 3.5 mg/dL 2.7 - 4 .8 mg/dL [facility] Phosphate SerPl-[facility] 07-28 Phosphate [Mass/Vol] 3.5 mg/dL Normal 2.7-4.8 [facility] Comment on above: Order Comment: Speci men Type: BLOOD SPECIMENOrdering Facility: [facility] Address: [address] [place] [address] Performed By: #### 2 777-1 ####ADEN LABORATORYCLIA [id number] [place] [address] [place] TACROLIMUS/FK-506 BLon 07-28 Tacrolimus (Bld) [Mass/Vol] 3.8 ng/mL Low 5.0 - 20.0 ng/mL [facility] Tacrolimus Bld-[facility] 2022 Tacrolimus (Bld) [Mass/Vol] 3.8 ng/mL Low 5.0-20.0 [facility] Comment on above: Order Comment: Speci men Type: BLOOD SPECIMENOrdering Facility: [facility] Address: [address] [place] [address] Result Comment: Nayely vidualized target levels for a given patient will depend on many factors (including the type of organ transplant, time since transplantation, concurrent medications, and other clinical factors), and should be assessed by those health care providers experienced in the management of immunosuppression. Reference ranges and high/low indicator flags are provided as general guidelines only. The treating physician must determine appropriate target levels/dosing based on the specific clinical situation. Test performed by chemiluminescent immunoassay using Cumulux Alinity i. Performed By: #### 1 1253-2 ####[facility] LABCLIA [id number] [place] [address] [place] CNOVon 07-27-2023 CNOV Normal [facility] TACROLIMUS/FK-506 BLon 07-27 Tacrolimus (Bld) [Mass/Vol] 4.8 ng/mL Low 5.0 - 20.0 ng/mL [facility] Tacrolimus Bld-mCncon 2022 Tacrolimus (Bld) [Mass/Vol] 4.8 ng/mL Low 5.0-20.0 [facility] Comment on above: Order Comment: Speci men Type: BLOOD SPECIMENOrdering Facility: [facility] Address: [address] [place] [address] Result Comment: Nayely vidualized target levels for a given patient will depend on many factors (including the type of organ transplant, time since transplantation, concurrent medications, and other clinical factors), and should be assessed by those health care providers experienced in the management of immunosuppression. Reference ranges and high/low indicator flags are provided as general guidelines only. The treating physician must determine appropriate target levels/dosing based on the specific clinical situation. Test performed by chemiluminescent immunoassay using Cumulux Alinity i. Performed By: #### 1 1253-2 ####[facility] LABIA [id number] [place] [address] [place] US VISCERAL VEIN COMPLETE VA S LABon 07-27-2023 US VISCERAL VEIN COMPLETE VAS LAB Normal [facility] CYTOMEGALOVIRUS (CMV) DNA, Q UANTITATIVE PCR, PLASMAon 07-26-2023 CMV DNA (IU/mL) 67 IU/mL High IU/mL [facility] CMV DNA ARINA+probe (P) [Log units/Vol] 1.83 log IU/mL log IU/mL [facility] CMV DNA ARINA+probe Qn (P) Detected Abnormal Not Detected [facility] C-REACTIVE PROTEIN (CRP)on 1 CRP [Mass/Vol] 0.9 mg/dL High <0.9 mg/dL [facility] CBC W Auto Differential pane l (Bld)on 07-25-2023 Basophils (Bld) [#/Vol] 0.06 10*3/uL <0.11 k/uL [facility] Basophils/100 WBC (Bld) 1.1 % [facility] Differential cell count method Nom (Bld) Auto [facility] Eosinophils (Bld) [#/Vol] 0.17 10*3/uL <0.46 k/uL [facility] Eosinophils/100 WBC (Bld) 3.2 % [facility] Erythrocyte distribution width (RBC) [Ratio] 15.8 % High 11.5 - 15.0 % [facility] Hematocrit (Bld) [Volume fraction] 30.0 % Low 39.0 - 51.0 % [facility] Hemoglobin (Bld) [Mass/Vol] 8.8 g/dL Low 13.0 - 17.0 g/dL [facility] Immature granulocytes (Bld) [#/Vol] 0.04 10*3/uL <0.10 k/uL [facility] Immature granulocytes/100 WBC (Bld) 0.7 % [facility] Lymphocytes (Bld) [#/Vol] 2.96 10*3/uL 1.00 - 4.00 k/uL [facility] Lymphocytes/100 WBC (Bld) 55.1 % [facility] MCH (RBC) [Entitic mass] 29.4 pg 26.0 - 34.0 pg [facility] MCHC (RBC) [Mass/Vol] 29.3 g/dL Low 30.5 - 36.0 g/dL [facility] MCV (RBC) [Entitic vol] 100.3 fL High 80.0 - 100.0 fL [facility] Monocytes (Bld) [#/Vol] 0.53 10*3/uL <0.87 k/uL [facility] Monocytes/100 WBC (Bld) 9.9 % [facility] Neutrophils (Bld) [#/Vol] 1.61 10*3/uL 1.45 - 7.50 k/uL [facility] Neutrophils/100 WBC (Bld) 30.0 % [facility] Nucleated RBC (Bld) [#/Vol] <0.01 k/uL [facility] Nucleated RBC/100 WBC (Bld) [Ratio] 0.0 /100 WBC [facility] Platelet mean volume (Bld) [Entitic vol] 10.1 fL 9.0 - 12.7 fL [facility] Platelets (Bld) [#/Vol] 408 10*3/uL High 150 - 400 k/uL [facility] RBC (Bld) [#/Vol] 2.99 10*6/uL Low 4.20 - 6.0 0 m/uL [facility] WBC (Bld) [#/Vol] 5.37 10*3/uL 3.70 - 11. 00 k/uL [facility] Basophils (Bld) [#/Vol] 0.06 10*3/uL Normal <0.11 [facility] Comment on above: Order Comment: Speci men Type: BLOOD SPECIMENOrdering Facility: [facility] Address: [address] [place] [address] Performed By: #### 5 7021-8 ####ADEN LABORATORYCLIA [id number] [place] [address] [place] Basophils/100 WBC (Bld) 1.1 % Normal [facility] Comment on above: Order Comment: Speci men Type: BLOOD SPECIMENOrdering Facility: [facility] Address: [address] [place] [address] Performed By: #### 5 7021-8 ####ADEN LABORATORYCLIA [id number] [place] [address] [place] Differential cell count method Nom (Bld) Auto Normal [facility] Comment on above: Order Comment: Speci men Type: BLOOD SPECIMENOrdering Facility: [facility] Address: [address] [place] [address] Performed By: #### 5 7021-8 ####ADEN LABORATORYCLIA [id number] [place] [address] [place] Eosinophils (Bld) [#/Vol] 0.17 10*3/uL Normal <0.46 [facility] Comment on above: Order Comment: Speci men Type: BLOOD SPECIMENOrdering Facility: [facility] Address: [address] [place] [address] Performed By: #### 5 7021-8 ####ADEN LABORATORYCLIA [id number] [place] [address] [place] Eosinophils/100 WBC (Bld) 3.2 % Normal [facility] Comment on above: Order Comment: Speci men Type: BLOOD SPECIMENOrdering Facility: [facility] Address: [address] [place] [address] Performed By: #### 5 7021-8 ####ADEN LABORATORYCLIA [id number] [place] [address] [place] Erythrocyte distribution width (RBC) [Ratio] 15.8 % High 11.5-15.0 [facility] Comment on above: Order Comment: Speci men Type: BLOOD SPECIMENOrdering Facility: [facility] Address: [address] [place] [address] Performed By: #### 5 7021-8 ####ADEN LABORATORYCLIA [id number] [place] [address] [place] Hematocrit (Bld) [Volume fraction] 30.0 % Low 39.0-51.0 [facility] Comment on above: Order Comment: Speci men Type: BLOOD SPECIMENOrdering Facility: [facility] Address: [address] [place] [address] Performed By: #### 5 7021-8 ####ADEN LABORATORYCLIA [id number] [place] [address] [place] Hemoglobin (Bld) [Mass/Vol] 8.8 g/dL Low 13.0-17.0 [facility] Comment on above: Order Comment: Speci men Type: BLOOD SPECIMENOrdering Facility: [facility] Address: [address] [place] [address] Performed By: #### 5 7021-8 ####ADEN LABORATORYCLIA [id number] [place] [address] [place] Immature granulocytes (Bld) [#/Vol] 0.04 10*3/uL Normal <0.10 [facility] Comment on above: Order Comment: Speci men Type: BLOOD SPECIMENOrdering Facility: [facility] Address: [address] [place] [address] Performed By: #### 5 7021-8 ####ADEN LABORATORYCLIA [id number] [place] [address] [place] Immature granulocytes/100 WBC (Bld) 0.7 % Normal [facility] Comment on above: Order Comment: Speci men Type: BLOOD SPECIMENOrdering Facility: [facility] Address: [address] [place] [address] Performed By: #### 5 7021-8 ####ADEN LABORATORYCLIA [id number] [place] [address] [place] Lymphocytes (Bld) [#/Vol] 2.96 10*3/uL Normal 1.00-4.00 [facility] Comment on above: Order Comment: Speci men Type: BLOOD SPECIMENOrdering Facility: [facility] Address: [address] [place] [address] Performed By: #### 5 7021-8 ####ADEN LABORATORYCLIA [id number] [place] [address] [place] Lymphocytes/100 WBC (Bld) 55.1 % Normal [facility] Comment on above: Order Comment: Speci men Type: BLOOD SPECIMENOrdering Facility: [facility] Address: [address] [place] [address] Performed By: #### 5 7021-8 ####ADEN LABORATORYCLIA [id number] [place] [address] [place] MCH (RBC) [Entitic mass] 29.4 pg Normal 26.0-34.0 [facility] Comment on above: Order Comment: Speci men Type: BLOOD SPECIMENOrdering Facility: [facility] Address: [address] [place] [address] Performed By: #### 5 7021-8 ####ADEN LABORATORYCLIA [id number] [place] [address] [place] MCHC (RBC) [Mass/Vol] 29.3 g/dL Low 30.5-36.0 [facility] Comment on above: Order Comment: Speci men Type: BLOOD SPECIMENOrdering Facility: [facility] Address: [address] [place] [address] Performed By: #### 5 7021-8 ####ADEN LABORATORYCLIA [id number] [place] [id number] [place] MCV (RBC) [Entitic vol] 100.3 fL High 80.0-100.0 [facility] Comment on above: Order Comment: Speci men Type: BLOOD SPECIMENOrdering Facility: [facility] Address: [address] [place] [address] Performed By: #### 5 7021-8 ####ADEN LABORATORYCLIA [id number] [place] [address] [place] Monocytes (Bld) [#/Vol] 0.53 10*3/uL Normal <0.87 [facility] Comment on above: Order Comment: Speci men Type: BLOOD SPECIMENOrdering Facility: [facility] Address: [address] [place] [address] Performed By: #### 5 7021-8 ####ADEN LABORATORYCLIA [id number] [place] [address] [place] Monocytes/100 WBC (Bld) 9.9 % Normal [facility] Comment on above: Order Comment: Speci men Type: BLOOD SPECIMENOrdering Facility: [facility] Address: [address] [place] [address] Performed By: #### 5 7021-8 ####ADEN LABORATORYCLIA [id number] [place] [address] [place] Neutrophils (Bld) [#/Vol] 1.61 10*3/uL Normal 1.45-7.50 [facility] Comment on above: Order Comment: Speci men Type: BLOOD SPECIMENOrdering Facility: [facility] Address: [address] [place] [address] Performed By: #### 5 7021-8 ####DAEN LABORATORYCLIA [id number] [place] [address] [place] Neutrophils/100 WBC (Bld) 30.0 % Normal [facility] Comment on above: Order Comment: Speci men Type: BLOOD SPECIMENOrdering Facility: [facility] Address: [address] [place] [address] Performed By: #### 5 7021-8 ####ADEN LABORATORYCLIA [id number] [place] [address] [place] Nucleated RBC (Bld) [#/Vol] 10*3/uL Normal <0.01 [facility] Comment on above: Order Comment: Speci men Type: BLOOD SPECIMENOrdering Facility: [facility] Address: [address] [place] [address] Performed By: #### 5 7021-8 ####ADEN LABORATORYCLIA [id number] [place] [address] [place] Nucleated RBC/100 WBC (Bld) [Ratio] 0.0 /100 WBC Normal [facility] Comment on above: Order Comment: Speci men Type: BLOOD SPECIMENOrdering Facility: [facility] Address: [address] [place] [address] Performed By: #### 5 7021-8 ####ADEN LABORATORYCLIA [id number] [place] [address] [place] Platelet mean volume (Bld) [Entitic vol] 10.1 fL Normal 9.0-12.7 [facility] Comment on above: Order Comment: Speci men Type: BLOOD SPECIMENOrdering Facility: [facility] Address: [address] [place] [address] Performed By: #### 5 7021-8 ####ADEN LABORATORYCLIA [id number] [place] [address] [place] Platelets (Bld) [#/Vol] 408 10*3/uL High 150-400 [facility] Comment on above: Order Comment: Speci men Type: BLOOD SPECIMENOrdering Facility: [facility] Address: [address] [place] [address] Performed By: #### 5 7021-8 ####ADEN LABORATORYCLIA [id number] [place] [address] [place] RBC (Bld) [#/Vol] 2.99 10*6/uL Low 4.20-6.00 [facility] Comment on above: Order Comment: Speci men Type: BLOOD SPECIMENOrdering Facility: [facility] Address: [address] [place] [address] Performed By: #### 5 7021-8 ####ADEN LABORATORYCLIA [id number] [place] [address] [place] WBC (Bld) [#/Vol] 5.37 10*3/uL Normal 3.70-11.00 [facility] Comment on above: Order Comment: Speci men Type: BLOOD SPECIMENOrdering Facility: [facility] Address: [address] [place] [address] Performed By: #### 5 7021-8 ####ADEN LABORATORYCLIA [id number] [place] [address] [place] CRP [facility] 07-25-2023 CRP [Mass/Vol] 0.9 mg/dL High <0.9 [facility] Comment on above: Order Comment: Speci men Type: BLOOD SPECIMENOrdering Facility: [facility] Address: [address] [place] [address] Performed By: #### 1 988-5 ####AD[facility] LABORATORYCLIA [id number] [place] [address] [place] CYTOMEGALOVIRUS (CMV) DNA, Q UANTITATIVE PCR, [facility] 07-25-2023 CMV DNA ARINA+probe (P) [Log units/Vol] 1.83 log IU/mL Normal [facility] Comment on above: Order Comment: Speci men Type: BLOOD SPECIMENOrdering Facility: [facility] Address: [address] [place] [address] Performed By: #### C MVQNT ####[facility] LABCLIA [id number] [place] [address] [place] CMV DNA ARINA+probe Qn (P) Detected Abnormal Not Detected [facility] Comment on above: Order Comment: Speci men Type: BLOOD SPECIMENOrdering Facility: [facility] Address: [address] [place] [address] Performed By: #### C MVQNT ####[facility] LABCLIA [id number] [place] [id number] [place] CMV DNA NUMERIC 67 IU/mL High [facility] Comment on above: Order Comment: Speci men Type: BLOOD SPECIMENOrdering Facility: [facility] Address: [address] [place] [address] Performed By: #### C MVQNT ####[facility] LABCLIA [id number] [address] [place] Comprehensive metabolic 2000 panelon 07-25-2023 Albumin [Mass/Vol] 3.1 g/dL Low 3.9 - 4.9 g/dL [facility] ALP [Catalytic activity/Vol] 128 U/L High 38 - 113 U/L [facility] ALT [Catalytic activity/Vol] 28 U/L 10 - 54 U/L [facility] Anion gap [Moles/Vol] 12 mmol/L 9 - 18 mmol/L [facility] AST [Catalytic activity/Vol] 33 U/L 14 - 40 U/L [facility] Bilirubin [Mass/Vol] 0.3 mg/dL 0.2 - 1 .3 mg/dL [facility] Calcium [Mass/Vol] 9.4 mg/dL 8.5 - 10. 2 mg/dL [facility] Chloride [Moles/Vol] 105 mmol/L 97 - 10 5 mmol/L [facility] CO2 [Moles/Vol] 26 mmol/L 22 - 30 mmol/L [facility] Creatinine [Mass/Vol] 1.51 mg/dL High 0.73 - 1.22 mg/dL [facility] Estimated Glomerular Filtration Rate 54 mL/min/1.73m Low >=60 [facility] Glucose [Mass/Vol] 80 mg/dL 74 - 99 mg/dL [facility] Potassium [Moles/Vol] 4.3 mmol/L 3.7 - 5.1 mmol/L [facility] Protein [Mass/Vol] 5.9 g/dL Low 6.3 - 8.0 g/dL [facility] Sodium [Moles/Vol] 143 mmol/L 136 - 144 mmol/L [facility] Urea nitrogen [Mass/Vol] 13 mg/dL 9 - 24 mg/dL [facility] Albumin [Mass/Vol] 3.1 g/dL Low 3.9-4.9 [facility] Comment on above: Order Comment: Speci men Type: BLOOD SPECIMENOrdering Facility: [facility] Address: [address] [place] [address] Performed By: #### 2 4323-8 ####ADEN LABORATORYCLIA [id number] [place] [id number] [place] ALP [Catalytic activity/Vol] 128 U/L High 38-113 [facility] Comment on above: Order Comment: Speci men Type: BLOOD SPECIMENOrdering Facility: [facility] Address: [address] [place] [address] Performed By: #### 2 4323-8 ####ADEN LABORATORYCLIA [id number] [place] [id number] [place] ALT [Catalytic activity/Vol] 28 U/L Normal 10-54 [facility] Comment on above: Order Comment: Speci men Type: BLOOD SPECIMENOrdering Facility: [facility] Address: [address] [place] [address] Performed By: #### 2 4323-8 ####ADEN LABORATORYCLIA [id number] [place] [id number] [place] Anion gap [Moles/Vol] 12 mmol/L Normal 9-18 [facility] Comment on above: Order Comment: Speci men Type: BLOOD SPECIMENOrdering Facility: [facility] Address: [address] [place] [address] Performed By: #### 2 4323-8 ####ADEN LABORATORYCLIA [id number] [place] [id number] [place] AST [Catalytic activity/Vol] 33 U/L Normal 14-40 [facility] Comment on above: Order Comment: Speci men Type: BLOOD SPECIMENOrdering Facility: [facility] Address: [address] [place] [address] Performed By: #### 2 4323-8 ####ADEN LABORATORYCLIA [id number] [place] [address] [place] Bilirubin [Mass/Vol] 0.3 mg/dL Normal 0.2-1.3 [facility] Comment on above: Order Comment: Speci men Type: BLOOD SPECIMENOrdering Facility: [facility] Address: [address] [place] [address] Performed By: #### 2 4323-8 ####ADEN LABORATORYCLIA [id number] [place] [address] [place] Calcium [Mass/Vol] 9.4 mg/dL Normal 8.5-10.2 [facility] Comment on above: Order Comment: Speci men Type: BLOOD SPECIMENOrdering Facility: [facility] Address: [address] [place] [address] Performed By: #### 2 4323-8 ####ADEN LABORATORYCLIA [id number] [place] [address] [place] Chloride [Moles/Vol] 105 mmol/L Normal 97-105 [facility] Comment on above: Order Comment: Speci men Type: BLOOD SPECIMENOrdering Facility: [facility] Address: [address] [place] [address] Performed By: #### 2 4323-8 ####ADEN LABORATORYCLIA [id number] [place] [id number] [place] CO2 [Moles/Vol] 26 mmol/L Normal 22-30 [facility] Comment on above: Order Comment: Speci men Type: BLOOD SPECIMENOrdering Facility: [facility] Address: [address] [place] [address] Performed By: #### 2 4323-8 ####ADEN LABORATORYCLIA [id number] [place] [id number] [place] Creatinine [Mass/Vol] 1.51 mg/dL High 0.73-1.22 [facility] Comment on above: Order Comment: Speci men Type: BLOOD SPECIMENOrdering Facility: [facility] Address: [address] [place] [address] Performed By: #### 2 4323-8 ####FORTINOCYNTHIA LABORATORYCLIA [id number] [place] [id number] [place] Creatinine and Glomerular filtration rate.predicted panel (S/P/Bld) 54 mL/min/1.73m??? Low >=60 [facility] Comment on above: Order Comment: Speci men Type: BLOOD SPECIMENOrdering Facility: [facility] Address: [address] [place] [address] Result Comment: Dayan mated Glomerular Filtration Rate (eGFR) is calculated using the 2020 CKD-EPI creatinine equation. This equation utilizes serum creatinine, sex, and age as parameters. The creatinine assay has traceable calibration to isotope dilution-mass spectrometry. Refer to KDIGO guidelines for clinical interpretation. In patients with unstable renal function, e.g. those with acute kidney injury, the eGFR may not accurately reflect actual GFR. Performed By: #### 2 4323-8 ####ADEN LABORATORYCLIA [id number] [place] [address] [place] Glucose [Mass/Vol] 80 mg/dL Normal 74-99 [facility] Comment on above: Order Comment: Speci men Type: BLOOD SPECIMENOrdering Facility: [facility] Address: [address] [place] [address] Result Comment: The [place] Diabetes Association (ADA) provides guidance for cutoff values for fasting glucose and random glucose. The ADA defines fasting as no caloric intake for at least 8 hours. Fasting plasma glucose results between 100 to 125 mg/dL indicate increased risk for diabetes (prediabetes).Fasting plasma glucose results greater than or equal to 126 mg/dL meet the criteria for diagnosis of diabetes. In the absence of unequivocal hyperglycemia, results should be confirmed by repeat testing. In a patient with classic symptoms of hyperglycemia or hyperglycemic crisis, random plasma glucose results greater than or equal to 200 mg/dL meet the criteria for diagnosis of diabetes.Reference: Standards of Medical Care in Diabetes 2016, [place] [employer]. Diabetes Care. 2016.39(Suppl 1). Performed By: #### 2 4323-8 ####ADEN LABORATORYCLIA [id number] [place] [address] [place] Potassium [Moles/Vol] 4.3 mmol/L Normal 3.7-5.1 [facility] Comment on above: Order Comment: Speci men Type: BLOOD SPECIMENOrdering Facility: [facility] Address: [address] [place] [address] Performed By: #### 2 4323-8 ####ADEN LABORATORYCLIA [id number] [place] [address] [place] Protein [Mass/Vol] 5.9 g/dL Low 6.3-8.0 [facility] Comment on above: Order Comment: Speci men Type: BLOOD SPECIMENOrdering Facility: [facility] Address: [address] [place] [address] Performed By: #### 2 4323-8 ####ADEN LABORATORYCLIA [id number] [place] [address] [place] Sodium [Moles/Vol] 143 mmol/L Normal 136-144 [facility] Comment on above: Order Comment: Speci men Type: BLOOD SPECIMENOrdering Facility: [facility] Address: [address] [place] [address]35 Performed By: #### 2 4323-8 ####ADEN LABORATORYCLIA [id number] [place] [id number] [place] Urea nitrogen [Mass/Vol] 13 mg/dL Normal 9-24 [facility] Comment on above: Order Comment: Speci men Type: BLOOD SPECIMENOrdering Facility: [facility] Address: [address] [place] [address]35 Performed By: #### 2 4323-8 ####ADEN LABORATORYCLIA [id number] [place] [address] [place] MAGNESIUM BLDon 07-25-2023 Magnesium [Mass/Vol] 1.8 mg/dL 1.7 - 2 .3 mg/dL [facility] Magnesium SerPl-mCncon 07-25 Magnesium [Mass/Vol] 1.8 mg/dL Normal 1.7-2.3 [facility] Comment on above: Order Comment: Speci men Type: BLOOD SPECIMENOrdering Facility: [facility] Address: [address] [place] [address] Performed By: #### 1 9123-9 ####ADEN LABORATORYCLIA [id number] [place] [address] [place] NT PRO BNPon 07-25-2023 Natriuretic peptide.B prohormone N-Terminal [Mass/Vol] 64 pg/mL <125 pg/mL [facility] NT-proBNP SerPl-mCncon 07-25 Natriuretic peptide.B prohormone N-Terminal [Mass/Vol] 64 pg/mL Normal <125 [facility] Comment on above: Order Comment: Speci men Type: BLOOD SPECIMENOrdering Facility: [facility] Address: [address] [place] [address] Performed By: #### 3 3762-6 ####ADEN LABORATORYCLIA [id number] [place] [address] [place] PHOSPHORUS INORGANICon 07-25 Phosphate [Mass/Vol] 3.4 mg/dL 2.7 - 4 .8 mg/dL [facility] Phosphate SerPl-mCncon 07-25 Phosphate [Mass/Vol] 3.4 mg/dL Normal 2.7-4.8 [facility] Comment on above: Order Comment: Speci men Type: BLOOD SPECIMENOrdering Facility: [facility] Address: [address] [place] [address] Performed By: #### 2 777-1 ####ADEN LABORATORYCLIA [id number] [place] [address] [place] C-REACTIVE PROTEIN (CRP)on 1 CRP [Mass/Vol] 1.4 mg/dL High <0.9 mg/dL [facility] CBC W Auto Differential pane l (Bld)on 07-21-2023 Basophils (Bld) [#/Vol] 0.04 10*3/uL <0.11 k/uL [facility] Basophils/100 WBC (Bld) 0.6 % [facility] Differential cell count method Nom (Bld) Auto [facility] Eosinophils (Bld) [#/Vol] 0.25 10*3/uL <0.46 k/uL [facility] Eosinophils/100 WBC (Bld) 3.6 % [facility] Erythrocyte distribution width (RBC) [Ratio] 16.4 % High 11.5 - 15.0 % [facility] Hematocrit (Bld) [Volume fraction] 27.3 % Low 39.0 - 51.0 % [facility] Hemoglobin (Bld) [Mass/Vol] 8.3 g/dL Low 13.0 - 17.0 g/dL [facility] Immature granulocytes (Bld) [#/Vol] 0.06 10*3/uL <0.10 k/uL [facility] Immature granulocytes/100 WBC (Bld) 0.9 % [facility] Lymphocytes (Bld) [#/Vol] 3.24 10*3/uL 1.00 - 4.00 k/uL [facility] Lymphocytes/100 WBC (Bld) 46.8 % [facility] MCH (RBC) [Entitic mass] 30.2 pg 26.0 - 34.0 pg [facility] MCHC (RBC) [Mass/Vol] 30.4 g/dL Low 30.5 - 36.0 g/dL [facility] MCV (RBC) [Entitic vol] 99.3 fL 80.0 - 100.0 fL [facility] Monocytes (Bld) [#/Vol] 0.59 10*3/uL <0.87 k/uL [facility] Monocytes/100 WBC (Bld) 8.5 % [facility] Neutrophils (Bld) [#/Vol] 2.75 10*3/uL 1.45 - 7.50 k/uL [facility] Neutrophils/100 WBC (Bld) 39.6 % [facility] Nucleated RBC (Bld) [#/Vol] <0.01 k/uL [facility] Nucleated RBC/100 WBC (Bld) [Ratio] 0.0 /100 WBC [facility] Platelet mean volume (Bld) [Entitic vol] 10.4 fL 9.0 - 12.7 fL [facility] Platelets (Bld) [#/Vol] 374 10*3/uL 150 - 400 k/uL [facility] RBC (Bld) [#/Vol] 2.75 10*6/uL Low 4.20 - 6.0 0 m/uL [facility] WBC (Bld) [#/Vol] 6.93 10*3/uL 3.70 - 11. 00 k/uL [facility] Basophils (Bld) [#/Vol] 0.04 10*3/uL Normal <0.11 [facility] Comment on above: Order Comment: Speci men Type: BLOOD SPECIMENOrdering Facility: [facility] Address: [address] [place] [address] Performed By: #### 5 7021-8 ####[facility] LABORATORYCLIA [id number] [place] [address] [place] Basophils/100 WBC (Bld) 0.6 % Normal [facility] Comment on above: Order Comment: Speci men Type: BLOOD SPECIMENOrdering Facility: [facility] Address: [address] [place] [address] Performed By: #### 5 7021-8 ####ADEN LABORATORYCLIA [id number] [place] [address] [place] Differential cell count method Nom (Bld) Auto Normal [facility] Comment on above: Order Comment: Speci men Type: BLOOD SPECIMENOrdering Facility: [facility] Address: [address] [place] [address] Performed By: #### 5 7021-8 ####ADEN LABORATORYCLIA [id number] [place] [address] [place] Eosinophils (Bld) [#/Vol] 0.25 10*3/uL Normal <0.46 [facility] Comment on above: Order Comment: Speci men Type: BLOOD SPECIMENOrdering Facility: [facility] Address: [address] [place] [address] Performed By: #### 5 7021-8 ####ADEN LABORATORYCLIA [id number] [place] [address] [place] Eosinophils/100 WBC (Bld) 3.6 % Normal [facility] Comment on above: Order Comment: Speci men Type: BLOOD SPECIMENOrdering Facility: [facility] Address: [address] [place] [address] Performed By: #### 5 7021-8 ####ADEN LABORATORYCLIA [id number] [place] [address] [place] Erythrocyte distribution width (RBC) [Ratio] 16.4 % High 11.5-15.0 [facility] Comment on above: Order Comment: Speci men Type: BLOOD SPECIMENOrdering Facility: [facility] Address: [address] [place] [address] Performed By: #### 5 7021-8 ####ADEN LABORATORYCLIA [id number] [place] [address] [place] Hematocrit (Bld) [Volume fraction] 27.3 % Low 39.0-51.0 [facility] Comment on above: Order Comment: Speci men Type: BLOOD SPECIMENOrdering Facility: [facility] Address: [address] [place] [address] Performed By: #### 5 7021-8 ####ADEN LABORATORYCLIA [id number] [place] [address] [place] Hemoglobin (Bld) [Mass/Vol] 8.3 g/dL Low 13.0-17.0 [facility] Comment on above: Order Comment: Speci men Type: BLOOD SPECIMENOrdering Facility: [facility] Address: [address] [place] [address] Performed By: #### 5 7021-8 ####ADEN LABORATORYCLIA [id number] [place] [address] [place] Immature granulocytes (Bld) [#/Vol] 0.06 10*3/uL Normal <0.10 [facility] Comment on above: Order Comment: Speci men Type: BLOOD SPECIMENOrdering Facility: [facility] Address: [address] [place] [address] Performed By: #### 5 7021-8 ####ADEN LABORATORYCLIA [id number] [place] [address] [place] Immature granulocytes/100 WBC (Bld) 0.9 % Normal [facility] Comment on above: Order Comment: Speci men Type: BLOOD SPECIMENOrdering Facility: [facility] Address: [address] [place] [address] Performed By: #### 5 7021-8 ####ADEN LABORATORYCLIA [id number] [place] [address] [place] Lymphocytes (Bld) [#/Vol] 3.24 10*3/uL Normal 1.00-4.00 [facility] Comment on above: Order Comment: Speci men Type: BLOOD SPECIMENOrdering Facility: [facility] Address: [address] [place] [address] Performed By: #### 5 7021-8 ####ADEN LABORATORYCLIA [id number] [place] [address] [place] Lymphocytes/100 WBC (Bld) 46.8 % Normal [facility] Comment on above: Order Comment: Speci men Type: BLOOD SPECIMENOrdering Facility: [facility] Address: [address] [place] [address] Performed By: #### 5 7021-8 ####ADEN LABORATORYCLIA [id number] [place] [address] [place] MCH (RBC) [Entitic mass] 30.2 pg Normal 26.0-34.0 [facility] Comment on above: Order Comment: Speci men Type: BLOOD SPECIMENOrdering Facility: [facility] Address: [address] [place] [address] Performed By: #### 5 7021-8 ####ADEN LABORATORYCLIA [id number] [place] [id number] [place] MCHC (RBC) [Mass/Vol] 30.4 g/dL Low 30.5-36.0 [facility] Comment on above: Order Comment: Speci men Type: BLOOD SPECIMENOrdering Facility: [facility] Address: [address] [place] [address] Performed By: #### 5 7021-8 ####ADEN LABORATORYCLIA [id number] [place] [address] [place] MCV (RBC) [Entitic vol] 99.3 fL Normal 80.0-100.0 [facility] Comment on above: Order Comment: Speci men Type: BLOOD SPECIMENOrdering Facility: [facility] Address: [address] [place] [address] Performed By: #### 5 7021-8 ####ADEN LABORATORYCLIA [id number] [place] [address] [place] Monocytes (Bld) [#/Vol] 0.59 10*3/uL Normal <0.87 [facility] Comment on above: Order Comment: Speci men Type: BLOOD SPECIMENOrdering Facility: [facility] Address: [address] [place] [address] Performed By: #### 5 7021-8 ####ADEN LABORATORYCLIA [id number] [place] [address] [place] Monocytes/100 WBC (Bld) 8.5 % Normal [facility] Comment on above: Order Comment: Speci men Type: BLOOD SPECIMENOrdering Facility: [facility] Address: [address] [place] [address] Performed By: #### 5 7021-8 ####ADEN LABORATORYCLIA [id number] [place] [address] [place] Neutrophils (Bld) [#/Vol] 2.75 10*3/uL Normal 1.45-7.50 [facility] Comment on above: Order Comment: Speci men Type: BLOOD SPECIMENOrdering Facility: [facility] Address: [address] [place] [address] Performed By: #### 5 7021-8 ####ADEN LABORATORYCLIA [id number] [place] [address] [place] Neutrophils/100 WBC (Bld) 39.6 % Normal [facility] Comment on above: Order Comment: Speci men Type: BLOOD SPECIMENOrdering Facility: [facility] Address: [address] [place] [address] Performed By: #### 5 7021-8 ####ADEN LABORATORYCLIA [id number] [place] [address] [place] Nucleated RBC (Bld) [#/Vol] 10*3/uL Normal <0.01 [facility] Comment on above: Order Comment: Speci men Type: BLOOD SPECIMENOrdering Facility: [facility] Address: [address] [place] [address] Performed By: #### 5 7021-8 ####ADEN LABORATORYCLIA [id number] [place] [id number] [place] Nucleated RBC/100 WBC (Bld) [Ratio] 0.0 /100 WBC Normal [facility] Comment on above: Order Comment: Speci men Type: BLOOD SPECIMENOrdering Facility: [facility] Address: [address] [place] [address] Performed By: #### 5 7021-8 ####ADEN LABORATORYCLIA [id number] [place] [address] [place] Platelet mean volume (Bld) [Entitic vol] 10.4 fL Normal 9.0-12.7 [facility] Comment on above: Order Comment: Speci men Type: BLOOD SPECIMENOrdering Facility: [facility] Address: [address] [place] [address] Performed By: #### 5 7021-8 ####ADEN LABORATORYCLIA [id number] [place] [id number] [place] Platelets (Bld) [#/Vol] 374 10*3/uL Normal 150-400 [facility] Comment on above: Order Comment: Speci men Type: BLOOD SPECIMENOrdering Facility: [facility] Address: [address] [place] [address] Performed By: #### 5 7021-8 ####ADEN LABORATORYCLIA [id number] [place] [id number] [place] RBC (Bld) [#/Vol] 2.75 10*6/uL Low 4.20-6.00 [facility] Comment on above: Order Comment: Speci men Type: BLOOD SPECIMENOrdering Facility: [facility] Address: [address] [place] [address] Performed By: #### 5 7021-8 ####ADEN LABORATORYCLIA [id number] [place] [id number] [place] WBC (Bld) [#/Vol] 6.93 10*3/uL Normal 3.70-11.00 [facility] Comment on above: Order Comment: Speci men Type: BLOOD SPECIMENOrdering Facility: [facility] Address: [address] [place] [address] Performed By: #### 5 7021-8 ####ADEN LABORATORYCLIA [id number] [place] [address] [place] CRP SerPl-mCncon 07-21-2023 CRP [Mass/Vol] 1.4 mg/dL High <0.9 [facility] Comment on above: Order Comment: Speci men Type: BLOOD SPECIMENOrdering Facility: [facility] Address: [address] [place] [address] Performed By: #### 1 988-5 ####ADEN LABORATORYCLIA [id number] [place] [address] [place] [facility] Comprehensive metabolic 2000 panelon 07-21-2023 Albumin [Mass/Vol] 2.8 g/dL Low 3.9 - 4.9 g/dL [facility] ALP [Catalytic activity/Vol] 118 U/L High 38 - 113 U/L [facility] ALT [Catalytic activity/Vol] 28 U/L 10 - 54 U/L [facility] Anion gap [Moles/Vol] 9 mmol/L 9 - 18 mmol/L [facility] AST [Catalytic activity/Vol] 20 U/L 14 - 40 U/L [facility] Bilirubin [Mass/Vol] 0.3 mg/dL 0.2 - 1 .3 mg/dL [facility] Calcium [Mass/Vol] 9.5 mg/dL 8.5 - 10. 2 mg/dL [facility] Chloride [Moles/Vol] 107 mmol/L High 97 - 10 5 mmol/L [facility] CO2 [Moles/Vol] 25 mmol/L 22 - 30 mmol/L [facility] Creatinine [Mass/Vol] 1.29 mg/dL High 0.73 - 1.22 mg/dL [facility] Estimated Glomerular Filtration Rate 65 mL/min/1.73m >=60 mL/min/1.73m [facility] Glucose [Mass/Vol] 84 mg/dL 74 - 99 mg/dL [facility] Potassium [Moles/Vol] 4.5 mmol/L 3.7 - 5.1 mmol/L [facility] Protein [Mass/Vol] 5.3 g/dL Low 6.3 - 8.0 g/dL [facility] Sodium [Moles/Vol] 141 mmol/L 136 - 144 mmol/L [facility] Urea nitrogen [Mass/Vol] 17 mg/dL 9 - 24 mg/dL [facility] Albumin [Mass/Vol] 2.8 g/dL Low 3.9-4.9 [facility] Comment on above: Order Comment: Speci men Type: BLOOD SPECIMENOrdering Facility: [facility] Address: [address] [place] [address] Performed By: #### 2 4323-8 ####ADEN LABORATORYCLIA [id number] [place] [address] [place] ALP [Catalytic activity/Vol] 118 U/L High 38-113 [facility] Comment on above: Order Comment: Speci men Type: BLOOD SPECIMENOrdering Facility: [facility] Address: [address] [place] [address] Performed By: #### 2 4323-8 ####ADEN LABORATORYCLIA [id number] [place] [id number] [place] ALT [Catalytic activity/Vol] 28 U/L Normal 10-54 [facility] Comment on above: Order Comment: Speci men Type: BLOOD SPECIMENOrdering Facility: [facility] Address: [address] [place] [address] Performed By: #### 2 4323-8 ####ADEN LABORATORYCLIA [id number] [place] [id number] [place] Anion gap [Moles/Vol] 9 mmol/L Normal 9-18 [facility] Comment on above: Order Comment: Speci men Type: BLOOD SPECIMENOrdering Facility: [facility] Address: [address] [place] [address] Performed By: #### 2 4323-8 ####ADEN LABORATORYCLIA [id number] [place] [address] [place] AST [Catalytic activity/Vol] 20 U/L Normal 14-40 [facility] Comment on above: Order Comment: Speci men Type: BLOOD SPECIMENOrdering Facility: [facility] Address: [address] [place] [address] Performed By: #### 2 4323-8 ####ADEN LABORATORYCLIA [id number] [place] [address] [place] Bilirubin [Mass/Vol] 0.3 mg/dL Normal 0.2-1.3 [facility] Comment on above: Order Comment: Speci men Type: BLOOD SPECIMENOrdering Facility: [facility] Address: [address] [place] [address] Performed By: #### 2 4323-8 ####ADEN LABORATORYCLIA [id number] [place] [address] [place] Calcium [Mass/Vol] 9.5 mg/dL Normal 8.5-10.2 [facility] Comment on above: Order Comment: Speci men Type: BLOOD SPECIMENOrdering Facility: [facility] Address: [address] [place] [address] Performed By: #### 2 4323-8 ####ADEN LABORATORYCLIA [id number] [place] [address] [place] Chloride [Moles/Vol] 107 mmol/L High 97-105 [facility] Comment on above: Order Comment: Speci men Type: BLOOD SPECIMENOrdering Facility: [facility] Address: [address] [place] [address] Performed By: #### 2 4323-8 ####ADEN LABORATORYCLIA [id number] [place] [address] [place] CO2 [Moles/Vol] 25 mmol/L Normal 22-30 [facility] Comment on above: Order Comment: Speci men Type: BLOOD SPECIMENOrdering Facility: [facility] Address: [address] [place] [address] Performed By: #### 2 4323-8 ####[facility] LABORATORYCLIA [id number] [place] [address] [place] Creatinine [Mass/Vol] 1.29 mg/dL High 0.73-1.22 [facility] Comment on above: Order Comment: Speci men Type: BLOOD SPECIMENOrdering Facility: [facility] Address: [address] [place] [address] Performed By: #### 2 4323-8 ####[facility] LABORATORYCLIA [id number] [place] [address] [place] Creatinine and Glomerular filtration rate.predicted panel (S/P/Bld) 65 mL/min/1.73m??? Normal >=60 [facility] Comment on above: Order Comment: Speci men Type: BLOOD SPECIMENOrdering Facility: [facility] Address: [address] [place] [address] Result Comment: Dayan mated Glomerular Filtration Rate (eGFR) is calculated using the 2020 CKD-EPI creatinine equation. This equation utilizes serum creatinine, sex, and age as parameters. The creatinine assay has traceable calibration to isotope dilution-mass spectrometry. Refer to KDIGO guidelines for clinical interpretation. In patients with unstable renal function, e.g. those with acute kidney injury, the eGFR may not accurately reflect actual GFR. Performed By: #### 2 4323-8 ####[facility] LABORATORYCLIA [id number] [place] [id number] [place] Glucose [Mass/Vol] 84 mg/dL Normal 74-99 [facility] Comment on above: Order Comment: Speci men Type: BLOOD SPECIMENOrdering Facility: [facility] Address: [address] [place] [address] Result Comment: The [place] Diabetes Association (ADA) provides guidance for cutoff values for fasting glucose and random glucose. The ADA defines fasting as no caloric intake for at least 8 hours. Fasting plasma glucose results between 100 to 125 mg/dL indicate increased risk for diabetes (prediabetes).Fasting plasma glucose results greater than or equal to 126 mg/dL meet the criteria for diagnosis of diabetes. In the absence of unequivocal hyperglycemia, results should be confirmed by repeat testing. In a patient with classic symptoms of hyperglycemia or hyperglycemic crisis, random plasma glucose results greater than or equal to 200 mg/dL meet the criteria for diagnosis of diabetes.Reference: Standards of Medical Care in Diabetes 2016, [place] [employer]. Diabetes Care. 2016.39(Suppl 1). Performed By: #### 2 4323-8 ####[facility] LABORATORYCLIA [id number] [place] [address] [place] Potassium [Moles/Vol] 4.5 mmol/L Normal 3.7-5.1 [facility] Comment on above: Order Comment: Speci men Type: BLOOD SPECIMENOrdering Facility: [facility] Address: [address] [place] [address] Performed By: #### 2 4323-8 ####[facility] LABORATORYCLIA [id number] [place] [address] [place] Protein [Mass/Vol] 5.3 g/dL Low 6.3-8.0 [facility] Comment on above: Order Comment: Speci men Type: BLOOD SPECIMENOrdering Facility: [facility] Address: [address] [place] [address] Performed By: #### 2 4323-8 ####[facility] LABORATORYCLIA [id number] [place] [id number] [place] Sodium [Moles/Vol] 141 mmol/L Normal 136-144 [facility] Comment on above: Order Comment: Speci men Type: BLOOD SPECIMENOrdering Facility: [facility] Address: [address] [place] [address] Performed By: #### 2 4323-8 ####[facility] LABORATORYCLIA [id number] [place] [address] [place] Urea nitrogen [Mass/Vol] 17 mg/dL Normal 9-24 [facility] Comment on above: Order Comment: Speci men Type: BLOOD SPECIMENOrdering Facility: [facility] Address: [address] [place] [address] Performed By: #### 2 4323-8 ####AD[facility] LABORATORYCLIA [id number] [place] [address] [place] MAGNESIUM BLDon 07-21-2023 Magnesium [Mass/Vol] 1.8 mg/dL 1.7 - 2 .3 mg/dL [facility] Magnesium SerPl-mCncon 07-21 Magnesium [Mass/Vol] 1.8 mg/dL Normal 1.7-2.3 [facility] Comment on above: Order Comment: Speci men Type: BLOOD SPECIMENOrdering Facility: [facility] Address: [address] [place] [address] Performed By: #### 1 9123-9 ####AD[facility] LABORATORYCLIA [id number] [place] [address] [place] NT PRO BNPon 07-21-2023 Natriuretic peptide.B prohormone N-Terminal [Mass/Vol] 57 pg/mL <125 pg/mL [facility] NT-proBNP SerPl-ncon 07-21 Natriuretic peptide.B prohormone N-Terminal [Mass/Vol] 57 pg/mL Normal <125 [facility] Comment on above: Order Comment: Speci men Type: BLOOD SPECIMENOrdering Facility: [facility] Address: [address] [place] [address] Performed By: #### 3 3762-6 ####[facility] LABORATORYCLIA [id number] [place] [address] [place] PHOSPHORUS INORGANICon 07-21 Phosphate [Mass/Vol] 3.5 mg/dL 2.7 - 4 .8 mg/dL [facility] Phosphate SerPl-mCncon 07-21 Phosphate [Mass/Vol] 3.5 mg/dL Normal 2.7-4.8 [facility] Comment on above: Order Comment: Speci men Type: BLOOD SPECIMENOrdering Facility: [facility] Address: [address] [place] [address] Performed By: #### 2 777-1 ####AD[facility] LABORATORYCLIA [id number] [place] [address] [place] TACROLIMUS/FK-506 BLon 07-21 Tacrolimus (Bld) [Mass/Vol] 2.6 ng/mL Low 5.0 - 20.0 ng/mL [facility] Tacrolimus Bld-mCncon 2022 Tacrolimus (Bld) [Mass/Vol] 2.6 ng/mL Low 5.0-20.0 [facility] Comment on above: Order Comment: Speci men Type: BLOOD SPECIMENOrdering Facility: [facility] Address: [address] [place] [address] Result Comment: Nayely vidualized target levels for a given patient will depend on many factors (including the type of organ transplant, time since transplantation, concurrent medications, and other clinical factors), and should be assessed by those health care providers experienced in the management of immunosuppression. Reference ranges and high/low indicator flags are provided as general guidelines only. The treating physician must determine appropriate target levels/dosing based on the specific clinical situation. Test performed by chemiluminescent immunoassay using Cumulux Alinity i. Performed By: #### 1 1253-2 ####[facility] LABCLIA [id number] [place] [address] [place] CASE MANAGEMon 07-20-2023 CASE MANAGEM Normal [facility] CBC W Auto Differential pane l (Bld)on 07-20-2023 Basophils (Bld) [#/Vol] 0.06 10*3/uL Normal <0.11 [facility] Comment on above: Order Comment: Speci men Type: BLOOD SPECIMENOrdering Facility: [facility] Address: [address] [place] [address] Performed By: #### 5 7021-8 ####[facility] LABCLIA [id number] [place] [address] [place] Basophils/100 WBC (Bld) 0.8 % Normal [facility] Comment on above: Order Comment: Speci men Type: BLOOD SPECIMENOrdering Facility: [facility] Address: [address] [place] [address] Performed By: #### 5 7021-8 ####[facility] LABCLIA [id number] [place] [address] [place] Differential cell count method Nom (Bld) Auto Normal [facility] Comment on above: Order Comment: Speci men Type: BLOOD SPECIMENOrdering Facility: [facility] Address: [address] [place] [address] Performed By: #### 5 7021-8 ####[facility] LABCLIA [id number] [place] [address] [place] Eosinophils (Bld) [#/Vol] 0.30 10*3/uL Normal <0.46 [facility] Comment on above: Order Comment: Speci men Type: BLOOD SPECIMENOrdering Facility: [facility] Address: [address] [place] [address] Performed By: #### 5 7021-8 ####[facility] LABCLIA [id number] [place] [address] [place] Eosinophils/100 WBC (Bld) 3.8 % Normal [facility] Comment on above: Order Comment: Speci men Type: BLOOD SPECIMENOrdering Facility: [facility] Address: [address] [place] [address] Performed By: #### 5 7021-8 ####[facility] LABCLIA [id number] [place] [address] [place] Erythrocyte distribution width (RBC) [Ratio] 16.7 % High 11.5-15.0 [facility] Comment on above: Order Comment: Speci men Type: BLOOD SPECIMENOrdering Facility: [facility] Address: [address] [place] [address] Performed By: #### 5 7021-8 ####[facility] LABCLIA [id number] [place] [address] [place] Hematocrit (Bld) [Volume fraction] 27.3 % Low 39.0-51.0 [facility] Comment on above: Order Comment: Speci men Type: BLOOD SPECIMENOrdering Facility: [facility] Address: [address] [place] [address] Performed By: #### 5 7021-8 ####[facility] LABCLIA [id number] [place] [address] [place] Hemoglobin (Bld) [Mass/Vol] 8.7 g/dL Low 13.0-17.0 [facility] Comment on above: Order Comment: Speci men Type: BLOOD SPECIMENOrdering Facility: [facility] Address: [address] [place] [address] Performed By: #### 5 7021-8 ####[facility] LABCLIA [id number] [place] [address] [place] Immature granulocytes (Bld) [#/Vol] 0.03 10*3/uL Normal <0.10 [facility] Comment on above: Order Comment: Speci men Type: BLOOD SPECIMENOrdering Facility: [facility] Address: [address] [place] [address] Performed By: #### 5 7021-8 ####[facility] LABCLIA [id number] [place] [address] [place] Immature granulocytes/100 WBC (Bld) 0.4 % Normal [facility] Comment on above: Order Comment: Speci men Type: BLOOD SPECIMENOrdering Facility: [facility] Address: [address] [place] [address] Performed By: #### 5 7021-8 ####[facility] LABCLIA [id number] [place] [address] [place] Lymphocytes (Bld) [#/Vol] 3.71 10*3/uL Normal 1.00-4.00 [facility] Comment on above: Order Comment: Speci men Type: BLOOD SPECIMENOrdering Facility: [facility] Address: [address] [place] [address] Performed By: #### 5 7021-8 ####[facility] LABIA [id number] [place] [address] [place] Lymphocytes/100 WBC (Bld) 47.1 % Normal [facility] Comment on above: Order Comment: Speci men Type: BLOOD SPECIMENOrdering Facility: [facility] Address: [address] [place] [address] Performed By: #### 5 7021-8 ####[facility] LABIA [id number] [place] [address] [place] MCH (RBC) [Entitic mass] 31.2 pg Normal 26.0-34.0 [facility] Comment on above: Order Comment: Speci men Type: BLOOD SPECIMENOrdering Facility: [facility] Address: [address] [place] [address] Performed By: #### 5 7021-8 ####[facility] LABIA [id number] [place] [address] [place] MCHC (RBC) [Mass/Vol] 31.9 g/dL Normal 30.5-36.0 [facility] Comment on above: Order Comment: Speci men Type: BLOOD SPECIMENOrdering Facility: [facility] Address: [address] [place] [address] Performed By: #### 5 7021-8 ####[facility] LABIA [id number] [place] [address] [place] MCV (RBC) [Entitic vol] 97.8 fL Normal 80.0-100.0 [facility] Comment on above: Order Comment: Speci men Type: BLOOD SPECIMENOrdering Facility: [facility] Address: [address] [place] [address] Performed By: #### 5 7021-8 ####[facility] LABCLIA [id number] [place] [address] [place] Monocytes (Bld) [#/Vol] 0.68 10*3/uL Normal <0.87 [facility] Comment on above: Order Comment: Speci men Type: BLOOD SPECIMENOrdering Facility: [facility] Address: [address] [place] [address] Performed By: #### 5 7021-8 ####[facility] LABCLIA [id number] [place] [address] [place] Monocytes/100 WBC (Bld) 8.6 % Normal [facility] Comment on above: Order Comment: Speci men Type: BLOOD SPECIMENOrdering Facility: [facility] Address: [address] [place] [address] Performed By: #### 5 7021-8 ####[facility] LABCLIA [id number] [place] [address] [place] Neutrophils (Bld) [#/Vol] 3.09 10*3/uL Normal 1.45-7.50 [facility] Comment on above: Order Comment: Speci men Type: BLOOD SPECIMENOrdering Facility: [facility] Address: [address] [place] [address] Performed By: #### 5 7021-8 ####[facility] LABCLIA [id number] [place] [address] [place] Neutrophils/100 WBC (Bld) 39.3 % Normal [facility] Comment on above: Order Comment: Speci men Type: BLOOD SPECIMENOrdering Facility: [facility] Address: [address] [place] [address] Performed By: #### 5 7021-8 ####[facility]CLIA [id number] [place] [address] [place] Nucleated RBC (Bld) [#/Vol] 10*3/uL Normal <0.01 [facility] Comment on above: Order Comment: Speci men Type: BLOOD SPECIMENOrdering Facility: [facility] Address: [address] [place] [address] Performed By: #### 5 7021-8 ####[facility] LABIA [id number] [place] [address] [place] Nucleated RBC/100 WBC (Bld) [Ratio] 0.0 /100 WBC Normal [facility] Comment on above: Order Comment: Speci men Type: BLOOD SPECIMENOrdering Facility: [facility] Address: [address] [place] [address] Performed By: #### 5 7021-8 ####[facility] LABIA [id number] [place] [address] [place] Platelet mean volume (Bld) [Entitic vol] 9.5 fL Normal 9.0-12.7 [facility] Comment on above: Order Comment: Speci men Type: BLOOD SPECIMENOrdering Facility: [facility] Address: [address] [place] [address] Performed By: #### 5 7021-8 ####[facility] LABIA [id number] [place] [address] [place] Platelets (Bld) [#/Vol] 316 10*3/uL Normal 150-400 [facility] Comment on above: Order Comment: Speci men Type: BLOOD SPECIMENOrdering Facility: [facility] Address: [address] [place] [address] Performed By: #### 5 7021-8 ####[facility] LABCLIA [id number] [place] [address] [place] RBC (Bld) [#/Vol] 2.79 10*6/uL Low 4.20-6.00 [facility] Comment on above: Order Comment: Speci men Type: BLOOD SPECIMENOrdering Facility: [facility] Address: [address] [place] [address] Performed By: #### 5 7021-8 ####[facility] LABCLIA [id number] [place] [address] [place] WBC (Bld) [#/Vol] 7.87 10*3/uL Normal 3.70-11.00 [facility] Comment on above: Order Comment: Speci men Type: BLOOD SPECIMENOrdering Facility: [facility] Address: [address] [place] [address] Performed By: #### 5 7021-8 ####[facility] LABCLIA [id number] [place] [address] [place] CNPNon 07-20-2023 CNPN Normal [facility] CONSULT PROGon 07-20-2023 CONSULT PROG Normal [facility] CONSULT PROG Normal [facility] Comprehensive metabolic 2000 panelon 07-20-2023 Albumin [Mass/Vol] 2.7 g/dL Low 3.9-4.9 [facility] Comment on above: Order Comment: Speci men Type: BLOOD SPECIMENOrdering Facility: [facility] Address: [address] [place] [address] Performed By: #### 2 4323-8, , 2776- ####[facility] LABIA [id number] [place] [address] [place] ALP [Catalytic activity/Vol] 121 U/L High 38-113 [facility] Comment on above: Order Comment: Speci men Type: BLOOD SPECIMENOrdering Facility: [facility] Address: [address] [place] [address] Performed By: #### 2 4323-8, , 2776-1 ####[facility] LABCLIA [id number] [place] [address] [place] ALT [Catalytic activity/Vol] 33 U/L Normal 10-54 [facility] Comment on above: Order Comment: Speci men Type: BLOOD SPECIMENOrdering Facility: [facility] Address: [address] [place] [address] Performed By: #### 2 4323-8, , 2776-10 ####[facility] LABCLIA [id number] [address] [address] [place] Anion gap [Moles/Vol] 12 mmol/L Normal 9-18 [facility] Comment on above: Order Comment: Speci men Type: BLOOD SPECIMENOrdering Facility: [facility] Address: [address] [place] [address] Performed By: #### 2 4323-8, , 2776-10 ####[facility] LABCLIA [id number] [place] [address] [place] AST [Catalytic activity/Vol] 21 U/L Normal 14-40 [facility] Comment on above: Order Comment: Speci men Type: BLOOD SPECIMENOrdering Facility: [facility] Address: [address] [place] [address] Performed By: #### 2 4323-8, , 2776-10 ####[facility] LABCLIA [id number] [place] [address] [place] Bilirubin [Mass/Vol] 0.2 mg/dL Normal 0.2-1.3 [facility] Comment on above: Order Comment: Speci men Type: BLOOD SPECIMENOrdering Facility: [facility] Address: [address] [place] [address] Performed By: #### 2 4323-8, , 2776-10 ####[facility] LABCLIA [id number] [address] [address] [place] Calcium [Mass/Vol] 9.4 mg/dL Normal 8.5-10.2 [facility] Comment on above: Order Comment: Speci men Type: BLOOD SPECIMENOrdering Facility: [facility] Address: [address] [place] [address] Performed By: #### 2 4323-8, , 2776-10 ####[facility] LABCLIA [id number] [place] [address] [place] Chloride [Moles/Vol] 109 mmol/L High 97-105 [facility] Comment on above: Order Comment: Speci men Type: BLOOD SPECIMENOrdering Facility: [facility] Address: [address] [place] [address] Performed By: #### 2 4323-8, 15926-3, 2777 ####[facility] [id number] [place] [address] [place] CO2 [Moles/Vol] 21 mmol/L Low 22-30 [facility] Comment on above: Order Comment: Speci men Type: BLOOD SPECIMENOrdering Facility: [facility] Address: [address] [place] [address] Performed By: #### 2 4323-8, 77829-0, 2776-10 ####[facility] [id number] [place] [address] [place] Creatinine [Mass/Vol] 1.36 mg/dL High 0.73-1.22 [facility] Comment on above: Order Comment: Speci men Type: BLOOD SPECIMENOrdering Facility: [facility] Address: [address] [place] [address] Performed By: #### 2 4323-8, 18675-6, 27771 ####[facility] [id number] [place] [address] [place] Creatinine and Glomerular filtration rate.predicted panel (S/P/Bld) 61 mL/min/1.73m??? Normal >=60 [facility] Comment on above: Order Comment: Speci men Type: BLOOD SPECIMENOrdering Facility: [facility] Address: [address] [place] [address] Result Comment: Dayan mated Glomerular Filtration Rate (eGFR) is calculated using the 2020 CKD-EPI creatinine equation. This equation utilizes serum creatinine, sex, and age as parameters. The creatinine assay has traceable calibration to isotope dilution-mass spectrometry. Refer to KDIGO guidelines for clinical interpretation. In patients with unstable renal function, e.g. those with acute kidney injury, the eGFR may not accurately reflect actual GFR. Performed By: #### 2 4322-8, , 2776-10 ####[facility] LABCLIA [id number] [address] [address] [place] Glucose [Mass/Vol] 109 mg/dL High 74-99 [facility] Comment on above: Order Comment: Specjose luis marin Type: BLOOD SPECIMENOrdering Facility: [facility] Address: [address] [place] [address] Result Comment: The [place] Diabetes Association (ADA) provides guidance for cutoff values for fasting glucose and random glucose. The ADA defines fasting as no caloric intake for at least 8 hours. Fasting plasma glucose results between 100 to 125 mg/dL indicate increased risk for diabetes (prediabetes).Fasting plasma glucose results greater than or equal to 126 mg/dL meet the criteria for diagnosis of diabetes. In the absence of unequivocal hyperglycemia, results should be confirmed by repeat testing. In a patient with classic symptoms of hyperglycemia or hyperglycemic crisis, random plasma glucose results greater than or equal to 200 mg/dL meet the criteria for diagnosis of diabetes.Reference: Standards of Medical Care in Diabetes 2016, [place] [employer]. Diabetes Care. 2016.39(Suppl 1). Performed By: #### 2 432-8, , 2776-10 ####[facility] LABCLIA [id number] [facility] [address] [address] [place] Potassium [Moles/Vol] 4.6 mmol/L Normal 3.7-5.1 [facility] Comment on above: Order Comment: Iesha marin Type: BLOOD SPECIMENOrdering Facility: [facility] Address: [address] [place] [address] Performed By: #### 2 432-8, , 2776-10 ####[facility]CLIA [id number] [address] [address] [place] Protein [Mass/Vol] 5.6 g/dL Low 6.3-8.0 [facility] Comment on above: Order Comment: Speci men Type: BLOOD SPECIMENOrdering Facility: [facility] Address: [place] [address] Performed By: #### 2 4323-8, , 2776-10 ####[facility] LABCLIA [id number] [place] [address] [place] Sodium [Moles/Vol] 142 mmol/L Normal 136-144 [facility] Comment on above: Order Comment: Speci men Type: BLOOD SPECIMENOrdering Facility: [facility] Address: [place] [address] Performed By: #### 2 4323-8, , 2776-10 ####[facility]CLIA [id number] [place] [address] [place] Urea nitrogen [Mass/Vol] 16 mg/dL Normal 9-24 [facility] Comment on above: Order Comment: Speci men Type: BLOOD SPECIMENOrdering Facility: [facility] Address: [place] [address] Performed By: #### 2 4323-8, , 2776-10 ####[facility]CLIA [id number] [place] [address] [place] Magnesium SerPl-mCncon 07-20 Magnesium [Mass/Vol] 1.8 mg/dL Normal 1.7-2.3 [facility] Comment on above: Order Comment: Speci men Type: BLOOD SPECIMENOrdering Facility: [facility] Address: [place] [address] Performed By: #### 2 4323-8, , 2776-10 ####[facility] LABCLIA [id number] [place] [id number] [place] PT panel Coag (PPP)on 10-11- 2023 INR Coag (PPP) [Relative time] 1.0 {INR} Normal 0.9-1.3 [facility] Comment on above: Order Comment: Iesha marin Type: BLOOD SPECIMENOrdering Facility: [facility] Address: [address] [place] [address] Result Comment: Ella min K Antagonist (VKA) Therapeutic Range: INR 2 to 3 (Target INR of 2.5)Note: For patients treated with VKA drugs, such as warfarin, the [place] [employer] 2012 Guideline recommends a therapeutic INR range of 2 to 3 (target INR of 2.5). This recommendation includes high-risk patients with antiphospholipid syndrome with previous arterial or venous thromboembolism, current-generation mechanical or bioprosthetic aortic heart valve replacement.Note: Patients with mechanical aortic valve replacement and additional risk factors for thromboembolic events (atrial fibrillation, previous thromboembolism, LV dysfunction, hypercoagulable conditions) or an older generation mechanical AVR (i.e., ball in-Cage) or any mechanical MVR should have a INR therapeutic range of 2.5 to 3.5 (target INR of 3).Cee GH, et al. Chest 2012, 141:7S-47SNishimesequiel RA, et al. [facility] 2017, 70: 252-289 Performed By: #### 3 4528-0, 32799-0 ####[facility] LABIA [id number] [place] [address] [place] PT Coag (PPP) [Time] 10.3 s Normal 9.7-13.0 [facility] Comment on above: Order Comment: Iesha marin Type: BLOOD SPECIMENOrdering Facility: [facility] Address: [address] [place] [address] Performed By: #### 3 4528-0, 46756-9 ####[facility] LABIA [id number] [place] [address] [place] PTT, ANTICOAGULANT THERAPYon 07-20-2023 aPTT Coag (PPP) [Time] 42.4 s High 23.0-32.4 [facility] Comment on above: Order Comment: Iesha marin Type: BLOOD SPECIMENOrdering Facility: [facility] Address: [address] [place] [address] Performed By: #### P TTAC ####[facility]IA [id number] [place] [address] [place] Phosphate SerPl-nc 07-20 Phosphate [Mass/Vol] 3.4 mg/dL Normal 2.7-4.8 [facility] [facility] Comment on above: Order Comment: Speci men Type: BLOOD SPECIMENOrdering Facility: [facility] Address: [address] [place] [address] Performed By: #### 2 4323-8, 75250-8, 2777-1 ####[facility] [id number] [place] [address] [place] Tacrolimus Bld-[facility] 2022 Tacrolimus (Bld) [Mass/Vol] 4.8 ng/mL Low 5.0-20.0 [facility] Comment on above: Order Comment: Speci tania Type: BLOOD SPECIMENOrdering Facility: [facility] Address: [address] [place] [address] Result Comment: Nayely vidualized target levels for a given patient will depend on many factors (including the type of organ transplant, time since transplantation, concurrent medications, and other clinical factors), and should be assessed by those health care providers experienced in the management of immunosuppression. Reference ranges and high/low indicator flags are provided as general guidelines only. The treating physician must determine appropriate target levels/dosing based on the specific clinical situation. Test performed by chemiluminescent immunoassay using [employer] Alinity i. Performed By: #### 1 1253-2 ####[facility] [id number] [place] [address] [place] aPTT PPPon 07-20-2023 aPTT Coag (PPP) [Time] 69.0 s High 23.0-32.4 [facility] Comment on above: Order Comment: Speci men Type: BLOOD SPECIMENOrdering Facility: [facility] Address: [address] [place], [place] [address] Performed By: #### 3 4528-0, 51103-6 ####[facility]CLIA [id number] [place] [address] [place] ALLIED HEALTHon 07-19-2023 ALLIED HEALTH Normal [facility] CASE MANAGEMon 07-19-2023 CASE MANAGEM Normal [facility] CASE MANAGEM Normal [facility] CBC W Auto Differential pane l (Bld)on 07-19-2023 Basophils (Bld) [#/Vol] 0.04 10*3/uL Normal <0.11 [facility] Comment on above: Order Comment: Speci men Type: BLOOD SPECIMENOrdering Facility: [facility] Address: [address] [place] [address] Performed By: #### 5 7021-8 ####[facility]CLIA [id number] [place] [address] [place] Basophils/100 WBC (Bld) 0.6 % Normal [facility] Comment on above: Order Comment: Speci men Type: BLOOD SPECIMENOrdering Facility: [facility] Address: [address] [place] [address] Performed By: #### 5 7021-8 ####[facility]CLIA [id number] [place] [address] [place] Differential cell count method Nom (Bld) Auto Normal [facility] Comment on above: Order Comment: Speci men Type: BLOOD SPECIMENOrdering Facility: [facility] Address: [address] [place] [address] Performed By: #### 5 7021-8 ####[facility]IA [id number] [place] [address] [place] Eosinophils (Bld) [#/Vol] 0.28 10*3/uL Normal <0.46 [facility] Comment on above: Order Comment: Speci men Type: BLOOD SPECIMENOrdering Facility: [facility] Address: [address] [place] [address] Performed By: #### 5 7021-8 ####[facility]IA [id number] [place] [address] [place] Eosinophils/100 WBC (Bld) 3.9 % Normal [facility] Comment on above: Order Comment: Speci men Type: BLOOD SPECIMENOrdering Facility: [facility] Address: [address] [place] [address] Performed By: #### 5 7021-8 ####[facility]CLIA [id number] [place] [address] [place] Erythrocyte distribution width (RBC) [Ratio] 16.8 % High 11.5-15.0 [facility] Comment on above: Order Comment: Speci men Type: BLOOD SPECIMENOrdering Facility: [facility] Address: [address] [place] [address] Performed By: #### 5 7021-8 ####[facility] LABIA [id number] [place] [address] [place] Hematocrit (Bld) [Volume fraction] 27.2 % Low 39.0-51.0 [facility] Comment on above: Order Comment: Speci men Type: BLOOD SPECIMENOrdering Facility: [facility] Address: [address] [place] [address] Performed By: #### 5 7021-8 ####[facility] [id number] [place] [address] [place] Hemoglobin (Bld) [Mass/Vol] 8.4 g/dL Low 13.0-17.0 [facility] Comment on above: Order Comment: Speci men Type: BLOOD SPECIMENOrdering Facility: [facility] Address: [address] [place] [address] Performed By: #### 5 7021-8 ####[facility]IA [id number] [place] [address] [place] Immature granulocytes (Bld) [#/Vol] 0.04 10*3/uL Normal <0.10 [facility] Comment on above: Order Comment: Speci men Type: BLOOD SPECIMENOrdering Facility: [facility] Address: [address] [place] [address] Performed By: #### 5 7021-8 ####[facility]IA [id number] [place] [address] [place] Immature granulocytes/100 WBC (Bld) 0.6 % Normal [facility] Comment on above: Order Comment: Speci men Type: BLOOD SPECIMENOrdering Facility: [facility] Address: [address] [place] [address] Performed By: #### 5 7021-8 ####[facility]IA [id number] [place] [address] [place] Lymphocytes (Bld) [#/Vol] 3.21 10*3/uL Normal 1.00-4.00 [facility] Comment on above: Order Comment: Speci men Type: BLOOD SPECIMENOrdering Facility: [facility] Address: [address] [place] [address] Performed By: #### 5 7021-8 ####[facility]IA [id number] [place] [address] [place] Lymphocytes/100 WBC (Bld) 44.5 % Normal [facility] Comment on above: Order Comment: Speci men Type: BLOOD SPECIMENOrdering Facility: [facility] Address: [address] [place] [address] Performed By: #### 5 7021-8 ####[facility] [id number] [place] [address] [place] MCH (RBC) [Entitic mass] 30.3 pg Normal 26.0-34.0 [facility] Comment on above: Order Comment: Speci men Type: BLOOD SPECIMENOrdering Facility: [facility] Address: [address] [place] [address] Performed By: #### 5 7021-8 ####[facility]IA [id number] [place] [address] [place] MCHC (RBC) [Mass/Vol] 30.9 g/dL Normal 30.5-36.0 [facility] Comment on above: Order Comment: Speci men Type: BLOOD SPECIMENOrdering Facility: [facility] Address: [address] [place] [address] Performed By: #### 5 7021-8 ####[facility] LABIA [id number] [place] [address] [place] MCV (RBC) [Entitic vol] 98.2 fL Normal 80.0-100.0 [facility] Comment on above: Order Comment: Speci men Type: BLOOD SPECIMENOrdering Facility: [facility] Address: [address] [place] [address] Performed By: #### 5 7021-8 ####[facility] LABIA [id number] [place] [address] [place] Monocytes (Bld) [#/Vol] 0.70 10*3/uL Normal <0.87 [facility] Comment on above: Order Comment: Speci men Type: BLOOD SPECIMENOrdering Facility: [facility] Address: [address] [place] [address] Performed By: #### 5 7021-8 ####[facility]IA [id number] [place] [address] [place] Monocytes/100 WBC (Bld) 9.7 % Normal [facility] Comment on above: Order Comment: Speci men Type: BLOOD SPECIMENOrdering Facility: [facility] Address: [address] [place] [address] Performed By: #### 5 7021-8 ####[facility] LABIA [id number] [place] [address] [place] Neutrophils (Bld) [#/Vol] 2.95 10*3/uL Normal 1.45-7.50 [facility] Comment on above: Order Comment: Speci men Type: BLOOD SPECIMENOrdering Facility: [facility] Address: [address] [place] [address] Performed By: #### 5 7021-8 ####[facility]CLIA [id number] [place] [address] [place] Neutrophils/100 WBC (Bld) 40.7 % Normal [facility] Comment on above: Order Comment: Speci men Type: BLOOD SPECIMENOrdering Facility: [facility] Address: [address] [place] [address] Performed By: #### 5 7021-8 ####[facility]CLIA [id number] [place] [address] [place] Nucleated RBC (Bld) [#/Vol] 10*3/uL Normal <0.01 [facility] Comment on above: Order Comment: Speci men Type: BLOOD SPECIMENOrdering Facility: [facility] Address: [address] [place] [address] Performed By: #### 5 7021-8 ####[facility]IA [id number] [place] [address] [place] Nucleated RBC/100 WBC (Bld) [Ratio] 0.0 /100 WBC Normal [facility] Comment on above: Order Comment: Speci men Type: BLOOD SPECIMENOrdering Facility: [facility] Address: [address] [place] [address] Performed By: #### 5 7021-8 ####[facility]CLIA [id number] [place] [address] [place] Platelet mean volume (Bld) [Entitic vol] 9.6 fL Normal 9.0-12.7 [facility] Comment on above: Order Comment: Speci men Type: BLOOD SPECIMENOrdering Facility: [facility] Address: [address] [place] [address] Performed By: #### 5 7021-8 ####[facility]CLIA [id number] [place] [address] [place] Platelets (Bld) [#/Vol] 300 10*3/uL Normal 150-400 [facility] Comment on above: Order Comment: Speci men Type: BLOOD SPECIMENOrdering Facility: [facility] Address: [address] [place] [address] Performed By: #### 5 7021-8 ####[facility]IA [id number] [place] [address] [place] RBC (Bld) [#/Vol] 2.77 10*6/uL Low 4.20-6.00 [facility] Comment on above: Order Comment: Speci men Type: BLOOD SPECIMENOrdering Facility: [facility] Address: [address] [place] [address] Performed By: #### 5 7021-8 ####[facility]CLIA [id number] [place] [address] [place] WBC (Bld) [#/Vol] 7.22 10*3/uL Normal 3.70-11.00 [facility] Comment on above: Order Comment: Speci men Type: BLOOD SPECIMENOrdering Facility: [facility] Address: [address] [place] [address] Performed By: #### 5 7021-8 ####[facility]CLIA [id number] [place] [id number] [place] CBC panel Auto (Bld)on 07-19 Erythrocyte distribution width (RBC) [Ratio] 16.9 % High 11.5-15.0 [facility] Comment on above: Order Comment: Speci men Type: BLOOD SPECIMENOrdering Facility: [facility] Address: [address] [place] [address] Performed By: #### 5 8410-2 ####[facility]IA [id number] [place] [address] [place] Hematocrit (Bld) [Volume fraction] 29.3 % Low 39.0-51.0 [facility] Comment on above: Order Comment: Speci men Type: BLOOD SPECIMENOrdering Facility: [facility] Address: [address] [place] [address] Performed By: #### 5 8410-2 ####[facility] [id number] [place] [address] [place] Hemoglobin (Bld) [Mass/Vol] 9.2 g/dL Low 13.0-17.0 [facility] Comment on above: Order Comment: Speci men Type: BLOOD SPECIMENOrdering Facility: [facility] Address: [address] [place] [address] Performed By: #### 5 8410-2 ####[facility]IA [id number] [place] [address] [place] MCH (RBC) [Entitic mass] 31.1 pg Normal 26.0-34.0 [facility] Comment on above: Order Comment: Speci men Type: BLOOD SPECIMENOrdering Facility: [facility] Address: [address] [place] [address] Performed By: #### 5 8410-2 ####[facility]IA [id number] [place] [address] [place] MCHC (RBC) [Mass/Vol] 31.4 g/dL Normal 30.5-36.0 [facility] Comment on above: Order Comment: Speci men Type: BLOOD SPECIMENOrdering Facility: [facility] Address: [address] [place] [address] Performed By: #### 5 8410-2 ####[facility]CLIA [id number] [place] [address] [place] MCV (RBC) [Entitic vol] 99.0 fL Normal 80.0-100.0 [facility] Comment on above: Order Comment: Speci men Type: BLOOD SPECIMENOrdering Facility: [facility] Address: [address] [place] [address] Performed By: #### 5 8410-2 ####[facility] LABIA [id number] [place] [address] [place] Nucleated RBC (Bld) [#/Vol] 10*3/uL Normal <0.01 [facility] Comment on above: Order Comment: Speci men Type: BLOOD SPECIMENOrdering Facility: [facility] Address: [address] [place] [address] Performed By: #### 5 8410-2 ####[facility]IA [id number] [place] [address] [place] Platelet mean volume (Bld) [Entitic vol] 9.4 fL Normal 9.0-12.7 [facility] Comment on above: Order Comment: Speci men Type: BLOOD SPECIMENOrdering Facility: [facility] Address: [address] [place] [address] Performed By: #### 5 8410-2 ####[facility]IA [id number] [place] [address] [place] Platelets (Bld) [#/Vol] 308 10*3/uL Normal 150-400 [facility] Comment on above: Order Comment: Speci men Type: BLOOD SPECIMENOrdering Facility: [facility] Address: [address] [place] [address] Performed By: #### 5 8410-2 ####[facility] LABIA [id number] [place] [address] [place] RBC (Bld) [#/Vol] 2.96 10*6/uL Low 4.20-6.00 [facility] Comment on above: Order Comment: Speci men Type: BLOOD SPECIMENOrdering Facility: [facility] Address: [address] [place] [address] Performed By: #### 5 8410-2 ####[facility]CLIA [id number] [place] [address] [place] WBC (Bld) [#/Vol] 7.25 10*3/uL Normal 3.70-11.00 [facility] Comment on above: Order Comment: Speci men Type: BLOOD SPECIMENOrdering Facility: [facility] Address: [address] [place] [address] Performed By: #### 5 8410-2 ####[facility] LABIA [id number] [place] [address] [place] CONSULT PROGon 07-19-2023 CONSULT PROG Normal [facility] CONSULT PROG Normal [facility] Comprehensive metabolic 2000 panelon 07-19-2023 Albumin [Mass/Vol] 2.6 g/dL Low 3.9-4.9 [facility] Comment on above: Order Comment: Speci men Type: BLOOD SPECIMENOrdering Facility: [facility] Address: [address] [place] [id number] Performed By: #### 2 4323-8, 27771, ####[facility] LABIA [id number] [place] [address] [place] ALP [Catalytic activity/Vol] 121 U/L High 38-113 [facility] Comment on above: Order Comment: Speci men Type: BLOOD SPECIMENOrdering Facility: [facility] Address: [address] [place] [id number] Performed By: #### 2 4323-8, 2777-1, ####[facility] LABIA [id number] [place] [address] [place] ALT [Catalytic activity/Vol] 43 U/L Normal 10-54 [facility] Comment on above: Order Comment: Speci men Type: BLOOD SPECIMENOrdering Facility: [facility] Address: [address] [place] [address] Performed By: #### 2 4323-8, 27704-09, ####[facility] LABCLIA [id number] [place] [id number] [place] Anion gap [Moles/Vol] 7 mmol/L Low 9-18 [facility] Comment on above: Order Comment: Speci men Type: BLOOD SPECIMENOrdering Facility: [facility] Address: [address] [place] [address] Performed By: #### 2 4323-8, 27704-09, ####[facility]CLIA [id number] [place] [address] [place] AST [Catalytic activity/Vol] 32 U/L Normal 14-40 [facility] Comment on above: Order Comment: Speci men Type: BLOOD SPECIMENOrdering Facility: [facility] Address: [address] [place] [id number] Performed By: #### 2 4323-8, 2776-10, ####[facility] LABIA [id number] [place] [address] [place] Bilirubin [Mass/Vol] 0.3 mg/dL Normal 0.2-1.3 [facility] Comment on above: Order Comment: Speci men Type: BLOOD SPECIMENOrdering Facility: [facility] Address: [address] [place] [id number] Performed By: #### 2 4323-8, 2776-10, ####[facility] LABIA [id number] [place] [id number] [place] Calcium [Mass/Vol] 9.4 mg/dL Normal 8.5-10.2 [facility] Comment on above: Order Comment: Speci men Type: BLOOD SPECIMENOrdering Facility: [facility] Address: [address] [place] [id number] Performed By: #### 2 4323-8, 2776-10, ####[facility] LABIA [id number] [address] [address] [place] Chloride [Moles/Vol] 106 mmol/L High 97-105 [facility] Comment on above: Order Comment: Speci men Type: BLOOD SPECIMENOrdering Facility: [facility] Address: [address] [place] [address] Performed By: #### 2 4323-8, 27704-09, ####[facility] LABIA [id number] [place] [id number] [place] CO2 [Moles/Vol] 25 mmol/L Normal 22-30 [facility] Comment on above: Order Comment: Speci men Type: BLOOD SPECIMENOrdering Facility: [facility] Address: [address] [place] [address] Performed By: #### 2 4323-8, 2776-10, ####[facility] LABIA [id number] [place] [id number] [place] Creatinine [Mass/Vol] 1.34 mg/dL High 0.73-1.22 [facility] Comment on above: Order Comment: Speci men Type: BLOOD SPECIMENOrdering Facility: [facility] Address: [address] [place] [address] Performed By: #### 2 4323-8, 27704-09, ####[facility] [id number] [place] [id number] [place] Creatinine and Glomerular filtration rate.predicted panel (S/P/Bld) 62 mL/min/1.73m??? Normal >=60 [facility] Comment on above: Order Comment: Speci men Type: BLOOD SPECIMENOrdering Facility: [facility] Address: [address] [place] [address] Result Comment: Dayan mated Glomerular Filtration Rate (eGFR) is calculated using the 2020 CKD-EPI creatinine equation. This equation utilizes serum creatinine, sex, and age as parameters. The creatinine assay has traceable calibration to isotope dilution-mass spectrometry. Refer to KDIGO guidelines for clinical interpretation. In patients with unstable renal function, e.g. those with acute kidney injury, the eGFR may not accurately reflect actual GFR. Performed By: #### 2 4323-8, 277-, ####[facility]CLIA [id number] [address] [address] [place] Glucose [Mass/Vol] 94 mg/dL Normal 74-99 [facility] Comment on above: Order Comment: Iesha marin Type: BLOOD SPECIMENOrdering Facility: [facility] Address: [address] [place] [address] Result Comment: The [place] [employer] (ADA) provides guidance for cutoff values for fasting glucose and random glucose. The ADA defines fasting as no caloric intake for at least 8 hours. Fasting plasma glucose results between 100 to 125 mg/dL indicate increased risk for diabetes (prediabetes).Fasting plasma glucose results greater than or equal to 126 mg/dL meet the criteria for diagnosis of diabetes. In the absence of unequivocal hyperglycemia, results should be confirmed by repeat testing. In a patient with classic symptoms of hyperglycemia or hyperglycemic crisis, random plasma glucose results greater than or equal to 200 mg/dL meet the criteria for diagnosis of diabetes.Reference: Standards of Medical Care in Diabetes 2016, [place] [employer]. Diabetes Care. 2016.39(Suppl 1). Performed By: #### 2 4323-8, 2776-10, ####[facility]CLIA [id number] [address] [address] [place] Potassium [Moles/Vol] 4.6 mmol/L Normal 3.7-5.1 [facility] Comment on above: Order Comment: Iesha marin Type: BLOOD SPECIMENOrdering Facility: [facility] Address: [address] [place] [address] Performed By: #### 2 4323-8, 27704-09, ####[facility]CLIA [id number] [address] [address] [place] Protein [Mass/Vol] 5.6 g/dL Low 6.3-8.0 [facility] Comment on above: Order Comment: Speci men Type: BLOOD SPECIMENOrdering Facility: [facility] Address: [address] [place] [address] Performed By: #### 2 4323-8, 2777-1, ####[facility]CLIA [id number] [place] [address] [place] Sodium [Moles/Vol] 138 mmol/L Normal 136-144 [facility] Comment on above: Order Comment: Speci men Type: BLOOD SPECIMENOrdering Facility: [facility] Address: [address] [place] [address] Performed By: #### 2 4323-8, 27704-09, ####[facility]CLIA [id number] [place] [address] [place] Urea nitrogen [Mass/Vol] 15 mg/dL Normal 9-24 [facility] Comment on above: Order Comment: Speci men Type: BLOOD SPECIMENOrdering Facility: [facility] Address: [address] [place] [address] Performed By: #### 2 4323-8, 2771, ####[facility] LABCLIA [id number] [place] [id number] [place] Magnesium SerPl-mCncon 07-19 Magnesium [Mass/Vol] 1.8 mg/dL Normal 1.7-2.3 [facility] Comment on above: Order Comment: Speci men Type: BLOOD SPECIMENOrdering Facility: [facility] Address: [address] [place] [address] Performed By: #### 2 4323-8, 277-1, ####[facility] LABCLIA [id number] [place] [id number] [place] PT panel Coag (PPP)on 2022 INR Coag (PPP) [Relative time] 1.0 {INR} Normal 0.9-1.3 [facility] Comment on above: Order Comment: Iesha marin Type: BLOOD SPECIMENOrdering Facility: [facility] Address: [address] [place] [address] Result Comment: Ella min K Antagonist (VKA) Therapeutic Range: INR 2 to 3 (Target INR of 2.5)Note: For patients treated with VKA drugs, such as warfarin, the [place] [employer] 2012 Guideline recommends a therapeutic INR range of 2 to 3 (target INR of 2.5). This recommendation includes high-risk patients with antiphospholipid syndrome with previous arterial or venous thromboembolism, current-generation mechanical or bioprosthetic aortic heart valve replacement.Note: Patients with mechanical aortic valve replacement and additional risk factors for thromboembolic events (atrial fibrillation, previous thromboembolism, LV dysfunction, hypercoagulable conditions) or an older generation mechanical AVR (i.e., ball in-Cage) or any mechanical MVR should have a INR therapeutic range of 2.5 to 3.5 (target INR of 3).Cee GH, et al. Chest 2012, 141:7S-47SNishimesequiel RA, et al. JAC 2017, 70: 252-289 Performed By: #### 3 4528-0, 90513-9 ####[facility] LABIA [id number] [place] [address] [place] PT Coag (PPP) [Time] 10.1 s Normal 9.7-13.0 [facility] Comment on above: Order Comment: Iesha marin Type: BLOOD SPECIMENOrdering Facility: [facility] Address: [address] [place] [address] Performed By: #### 3 4528-0, 63437-1 ####[facility] LABIA [id number] [place] [address] [place] PTT, ANTICOAGULANT THERAPYon 07-19-2023 aPTT Coag (PPP) [Time] 28.7 s Normal 23.0-32.4 [facility] Comment on above: Order Comment: Speci men Type: BLOOD SPECIMENOrdering Facility: [facility] Address: [address] [place] [address] Performed By: #### P TTA ####[facility] LABCLIA [id number] [address] [address] [place] Phosphate SerPl-mCncon 07-19 Phosphate [Mass/Vol] 3.3 mg/dL Normal 2.7-4.8 [facility] Comment on above: Order Comment: Speci men Type: BLOOD SPECIMENOrdering Facility: [facility] Address: [address] [place] [address] Performed By: #### 2 4323-8, 2777-1, 29986-3 ####[facility] LABCLIA [id number] [place] [address] [place] THERAPY NTon 07-19-2023 THERAPY NT Normal [facility] THERAPY NT Normal [facility] TYPE + SCREENon 07-19-2023 ABO B Normal [facility] Comment on above: Order Comment: Speci men Type: BLOOD SPECIMENOrdering Facility: [facility] Address: [address] [place] [address] Performed By: #### T SCR ####[facility] BLOOD BANKIA [id number] [place] [address] [place] HISTORICAL AB SCR STATUS Negative Normal [facility] Comment on above: Order Comment: Speci men Type: BLOOD SPECIMENOrdering Facility: [facility] Address: [address] [place] [address] Performed By: #### T SCR ####[facility] BLOOD BANKIA [id number] [place] [address] [place] Rh Nom (Bld) Positive Normal [facility] Comment on above: Order Comment: Speci men Type: BLOOD SPECIMENOrdering Facility: [facility] Address: [address] [place] [address] Performed By: #### T SCR ####[facility] BLOOD BANKCLIA [id number] [place] [id number] [place] TYPE AND SCREEN EXPIRATION 07/22/2023 23:59 Normal [facility] Comment on above: Order Comment: Speci men Type: BLOOD SPECIMENOrdering Facility: [facility] Address: [address] [place] [address] Performed By: #### T SCR ####[facility] BLOOD BANKIA [id number] [place] [address] [place] Tacrolimus Bld-mCncon 2022 Tacrolimus (Bld) [Mass/Vol] 6.8 ng/mL Normal 5.0-20.0 [facility] Comment on above: Order Comment: Speci men Type: BLOOD SPECIMENOrdering Facility: [facility] Address: [address] [place] [address] Result Comment: Nayely vidualized target levels for a given patient will depend on many factors (including the type of organ transplant, time since transplantation, concurrent medications, and other clinical factors), and should be assessed by those health care providers experienced in the management of immunosuppression. Reference ranges and high/low indicator flags are provided as general guidelines only. The treating physician must determine appropriate target levels/dosing based on the specific clinical situation. Test performed by chemiluminescent immunoassay using [employer] Alinity i. Performed By: #### 1 1253-2 ####[facility] LABCLIA [id number] [place] [address] [place] aPTT PPPon 07-19-2023 aPTT Coag (PPP) [Time] 24.7 s Normal 23.0-32.4 [facility] Comment on above: Order Comment: Speci men Type: BLOOD SPECIMENOrdering Facility: [facility] Address: [address] [place] [address] Performed By: #### 3 4528-0, 48557-1 ####[facility] LABCLIA [id number] [place] [address] [place] BRIEF OP NOTon 07-18-2023 BRIEF OP NOT Normal [facility] C diff Tox gens Stl Ql ARINA+p robeon 07-18-2023 C. difficile toxin genes ARINA+probe Ql (Stl) Positive Abnormal Negative for C. difficile toxin by PCR [facility] Comment on above: Order Comment: Speci men Type: STOOL SPECIMENOrdering Facility: [facility] Address: [address] [place] [address] Result Comment: A po sitive PCR result may indicate C.difficile infection or colonization. The positive predictive value of this test for C.difficile infection is highest for patients with clinically significant diarrhea (>=3 unformed stools in 24h) who do not have an alternative explanation (e.g., recent receipt of laxatives).Toxin EIA testing will also be performed as recommended by IDSA clinical practice guidelines for institutions without pre-agreed criteria for specimen submission. Performed By: #### 5 4067-4, CDEIA ####[facility] LABCLIA [id number] [place] [address] [place] C. DIFFICILE TOXIN BY EIAon 07-18-2023 C. difficile toxin A+B IA Ql (Stl) Detected Abnormal Negative for C. difficile toxin [facility] Comment on above: Order Comment: Speci men Type: STOOL SPECIMENOrdering Facility: [facility] Address: [address] [place] [address] Performed By: #### 5 4067-4, CDEIA ####[facility] LABCLIA [id number] [place] [address] [place] CASE MANAGEMon 07-18-2023 CASE MANAGEM Normal [facility] CBC W Auto Differential pane l (Bld)on 07-18-2023 Basophils (Bld) [#/Vol] 0.05 10*3/uL Normal <0.11 [facility] Comment on above: Order Comment: Speci men Type: BLOOD SPECIMENOrdering Facility: [facility] Address: [address] [place] [address] Performed By: #### 5 7021-8 ####[facility] LABCLIA [id number] [place] [address] [place] Basophils/100 WBC (Bld) 0.8 % Normal [facility] Comment on above: Order Comment: Speci men Type: BLOOD SPECIMENOrdering Facility: [facility] Address: [address] [place] [address] Performed By: #### 5 7021-8 ####[facility] LABCLIA [id number] [place] [address] [place] Differential cell count method Nom (Bld) Auto Normal [facility] Comment on above: Order Comment: Speci men Type: BLOOD SPECIMENOrdering Facility: [facility] Address: [address] [place] [address] Performed By: #### 5 7021-8 ####[facility] LABCLIA [id number] [place] [address] [place] Eosinophils (Bld) [#/Vol] 0.22 10*3/uL Normal <0.46 [facility] Comment on above: Order Comment: Speci men Type: BLOOD SPECIMENOrdering Facility: [facility] Address: [address] [place] [address] Performed By: #### 5 7021-8 ####[facility] LABCLIA [id number] [place] [address] [place] Eosinophils/100 WBC (Bld) 3.4 % Normal [facility] Comment on above: Order Comment: Speci men Type: BLOOD SPECIMENOrdering Facility: [facility] Address: [address] [place] [address] Performed By: #### 5 7021-8 ####[facility] LABCLIA [id number] [place] [address] [place] Erythrocyte distribution width (RBC) [Ratio] 17.0 % High 11.5-15.0 [facility] Comment on above: Order Comment: Speci men Type: BLOOD SPECIMENOrdering Facility: [facility] Address: [address] [place] [address] Performed By: #### 5 7021-8 ####[facility] LABIA [id number] [place] [address] [place] Hematocrit (Bld) [Volume fraction] 26.2 % Low 39.0-51.0 [facility] Comment on above: Order Comment: Speci men Type: BLOOD SPECIMENOrdering Facility: [facility] Address: [address] [place] [address] Performed By: #### 5 7021-8 ####[facility] LABIA [id number] [place] [address] [place] Hemoglobin (Bld) [Mass/Vol] 8.0 g/dL Low 13.0-17.0 [facility] Comment on above: Order Comment: Speci men Type: BLOOD SPECIMENOrdering Facility: [facility] Address: [address] [place] [address] Performed By: #### 5 7021-8 ####[facility] LABIA [id number] [place] [address] [place] Immature granulocytes (Bld) [#/Vol] 0.03 10*3/uL Normal <0.10 [facility] Comment on above: Order Comment: Speci men Type: BLOOD SPECIMENOrdering Facility: [facility] Address: [address] [place] [address] Performed By: #### 5 7021-8 ####[facility] LABCLIA [id number] [place] [address] [place] Immature granulocytes/100 WBC (Bld) 0.5 % Normal [facility] Comment on above: Order Comment: Speci men Type: BLOOD SPECIMENOrdering Facility: [facility] Address: [address] [place] [address] Performed By: #### 5 7021-8 ####[facility] LABIA [id number] [place] [address] [place] Lymphocytes (Bld) [#/Vol] 2.86 10*3/uL Normal 1.00-4.00 [facility] Comment on above: Order Comment: Speci men Type: BLOOD SPECIMENOrdering Facility: [facility] Address: [address] [place] [address] Performed By: #### 5 7021-8 ####[facility] LABCLIA [id number] [place] [address] [place] Lymphocytes/100 WBC (Bld) 43.7 % Normal [facility] Comment on above: Order Comment: Speci men Type: BLOOD SPECIMENOrdering Facility: [facility] Address: [address] [place] [address] Performed By: #### 5 7021-8 ####[facility] LABCLIA [id number] [place] [address] [place] MCH (RBC) [Entitic mass] 30.3 pg Normal 26.0-34.0 [facility] Comment on above: Order Comment: Speci men Type: BLOOD SPECIMENOrdering Facility: [facility] Address: [address] [place] [address] Performed By: #### 5 7021-8 ####[facility] LABCLIA [id number] [place] [address] [place] MCHC (RBC) [Mass/Vol] 30.5 g/dL Normal 30.5-36.0 [facility] Comment on above: Order Comment: Speci men Type: BLOOD SPECIMENOrdering Facility: [facility] Address: [address] [place] [address] Performed By: #### 5 7021-8 ####[facility] LABCLIA [id number] [place] [address] [place] MCV (RBC) [Entitic vol] 99.2 fL Normal 80.0-100.0 [facility] Comment on above: Order Comment: Speci men Type: BLOOD SPECIMENOrdering Facility: [facility] Address: [address] [place] [address] Performed By: #### 5 7021-8 ####[facility] LABCLIA [id number] [place] [address] [place] Monocytes (Bld) [#/Vol] 0.68 10*3/uL Normal <0.87 [facility] Comment on above: Order Comment: Speci men Type: BLOOD SPECIMENOrdering Facility: [facility] Address: [address] [place] [address] Performed By: #### 5 7021-8 ####[facility] LABCLIA [id number] [place] [address] [place] Monocytes/100 WBC (Bld) 10.4 % Normal [facility] Comment on above: Order Comment: Speci men Type: BLOOD SPECIMENOrdering Facility: [facility] Address: [address] [place] [address] Performed By: #### 5 7021-8 ####[facility] LABCLIA [id number] [place] [address] [place] Neutrophils (Bld) [#/Vol] 2.71 10*3/uL Normal 1.45-7.50 [facility] Comment on above: Order Comment: Speci men Type: BLOOD SPECIMENOrdering Facility: [facility] Address: [address] [place] [address] Performed By: #### 5 7021-8 ####[facility] LABCLIA [id number] [place] [address] [place] Neutrophils/100 WBC (Bld) 41.2 % Normal [facility] Comment on above: Order Comment: Speci men Type: BLOOD SPECIMENOrdering Facility: [facility] Address: [address] [place] [address] Performed By: #### 5 7021-8 ####[facility] LABCLIA [id number] [place] [address] [place] Nucleated RBC (Bld) [#/Vol] 10*3/uL Normal <0.01 [facility] Comment on above: Order Comment: Speci men Type: BLOOD SPECIMENOrdering Facility: [facility] Address: [address] [place] [address] Performed By: #### 5 7021-8 ####[facility] LABCLIA [id number] [place] [address] [place] Nucleated RBC/100 WBC (Bld) [Ratio] 0.0 /100 WBC Normal [facility] Comment on above: Order Comment: Speci men Type: BLOOD SPECIMENOrdering Facility: [facility] Address: [address] [place] [address] Performed By: #### 5 7021-8 ####[facility] LABCLIA [id number] [place] [address] [place] Platelet mean volume (Bld) [Entitic vol] 9.5 fL Normal 9.0-12.7 [facility] Comment on above: Order Comment: Speci men Type: BLOOD SPECIMENOrdering Facility: [facility] Address: [address] [place] [address] Performed By: #### 5 7021-8 ####[facility] LABCLIA [id number] [place] [address] [place] Platelets (Bld) [#/Vol] 312 10*3/uL Normal 150-400 [facility] Comment on above: Order Comment: Speci men Type: BLOOD SPECIMENOrdering Facility: [facility] Address: [address] [place] [address] Performed By: #### 5 7021-8 ####[facility] LABCLIA [id number] [place] [address] [place] RBC (Bld) [#/Vol] 2.64 10*6/uL Low 4.20-6.00 [facility] Comment on above: Order Comment: Speci men Type: BLOOD SPECIMENOrdering Facility: [facility] Address: [address] [place] [address] Performed By: #### 5 7021-8 ####[facility] LABCLIA [id number] [place] [address] [place] WBC (Bld) [#/Vol] 6.55 10*3/uL Normal 3.70-11.00 [facility] Comment on above: Order Comment: Speci men Type: BLOOD SPECIMENOrdering Facility: [facility] Address: [address] [place] [address] Performed By: #### 5 7021-8 ####[facility] LABCLIA [id number] [place] [address] [place] CONSULTon 07-18-2023 CONSULT Normal [facility] Comprehensive metabolic 2000 panelon 07-18-2023 Albumin [Mass/Vol] 2.6 g/dL Low 3.9-4.9 [facility] Comment on above: Order Comment: Speci men Type: BLOOD SPECIMENOrdering Facility: [facility] Address: [address] [place] [address] Performed By: #### 2 4323-8, 05362-0 ####[facility] LABCLIA [id number] [place] [address] [place] ALP [Catalytic activity/Vol] 118 U/L High 38-113 [facility] Comment on above: Order Comment: Speci men Type: BLOOD SPECIMENOrdering Facility: [facility] Address: [address] [place] [address] Performed By: #### 2 4323-8, ####[facility] LABCLIA [id number] [place] [address] [place] ALT [Catalytic activity/Vol] 41 U/L Normal 10-54 [facility] Comment on above: Order Comment: Speci men Type: BLOOD SPECIMENOrdering Facility: [facility] Address: [address] [place] [address] Performed By: #### 2 432-8, ####[facility] LABCLIA [id number] [place] [address] [place] Anion gap [Moles/Vol] 8 mmol/L Low 9-18 [facility] Comment on above: Order Comment: Speci men Type: BLOOD SPECIMENOrdering Facility: [facility] Address: [address] [place] [address] Performed By: #### 2 4328, ####[facility] LABCLIA [id number] [place] [address] [place] AST [Catalytic activity/Vol] 42 U/L High 14-40 [facility] Comment on above: Order Comment: Speci men Type: BLOOD SPECIMENOrdering Facility: [facility] Address: [address] [place] [address] Performed By: #### 2 4323-05, ####[facility] LABCLIA [id number] [place] [address] [place] Bilirubin [Mass/Vol] 0.3 mg/dL Normal 0.2-1.3 [facility] Comment on above: Order Comment: Speci men Type: BLOOD SPECIMENOrdering Facility: [facility] Address: [address] [place] [address] Performed By: #### 2 4323-05, ####[facility] LABCLIA [id number] [place] [address] [place] Calcium [Mass/Vol] 9.1 mg/dL Normal 8.5-10.2 [facility] Comment on above: Order Comment: Speci men Type: BLOOD SPECIMENOrdering Facility: [facility] Address: [address] [place] [address] Performed By: #### 2 432-, ####[facility] LABCLIA [id number] [place] [address] [place] Chloride [Moles/Vol] 106 mmol/L High 97-105 [facility] Comment on above: Order Comment: Speci men Type: BLOOD SPECIMENOrdering Facility: [facility] Address: [address] [place] [address] Performed By: #### 2 4323-8, ####[facility] LABCLIA [id number] [place] [address] [place] CO2 [Moles/Vol] 25 mmol/L Normal 22-30 [facility] Comment on above: Order Comment: Speci men Type: BLOOD SPECIMENOrdering Facility: [facility] Address: [address] [place] [address] Performed By: #### 2 4323-8, ####[facility] LABCLIA [id number] [place] [address] [place] Creatinine [Mass/Vol] 1.33 mg/dL High 0.73-1.22 [facility] Comment on above: Order Comment: Speci men Type: BLOOD SPECIMENOrdering Facility: [facility] Address: [address] [place] [address] Performed By: #### 2 4323-8, ####[facility] LABCLIA [id number] [place] [address] [place] Creatinine and Glomerular filtration rate.predicted panel (S/P/Bld) 62 mL/min/1.73m??? Normal >=60 [facility] Comment on above: Order Comment: Speci men Type: BLOOD SPECIMENOrdering Facility: [facility] Address: [address] [place] [address] Result Comment: Dayan mated Glomerular Filtration Rate (eGFR) is calculated using the 2020 CKD-EPI creatinine equation. This equation utilizes serum creatinine, sex, and age as parameters. The creatinine assay has traceable calibration to isotope dilution-mass spectrometry. Refer to KDIGO guidelines for clinical interpretation. In patients with unstable renal function, e.g. those with acute kidney injury, the eGFR may not accurately reflect actual GFR. Performed By: #### 2 4323-8, ####[facility] LABCLIA [id number] [place] [address] [place] Glucose [Mass/Vol] 105 mg/dL High 74-99 [facility] Comment on above: Order Comment: Iesha marin Type: BLOOD SPECIMENOrdering Facility: [facility] Address: [address] [place] [address] Result Comment: The [place] Diabetes Association (ADA) provides guidance for cutoff values for fasting glucose and random glucose. The ADA defines fasting as no caloric intake for at least 8 hours. Fasting plasma glucose results between 100 to 125 mg/dL indicate increased risk for diabetes (prediabetes).Fasting plasma glucose results greater than or equal to 126 mg/dL meet the criteria for diagnosis of diabetes. In the absence of unequivocal hyperglycemia, results should be confirmed by repeat testing. In a patient with classic symptoms of hyperglycemia or hyperglycemic crisis, random plasma glucose results greater than or equal to 200 mg/dL meet the criteria for diagnosis of diabetes.Reference: Standards of Medical Care in Diabetes 2016, [place] [employer]. Diabetes Care. 2016.39(Suppl 1). Performed By: #### 2 43212-15, ####[facility] LABCLIA [id number] [place] [id number] [place] Potassium [Moles/Vol] 4.6 mmol/L Normal 3.7-5.1 [facility] Comment on above: Order Comment: Iesha marin Type: BLOOD SPECIMENOrdering Facility: [facility] Address: [address] [place] [address] Performed By: #### 2 4323-8, ####[facility] LABIA [id number] [place] [address] [place] Protein [Mass/Vol] 5.2 g/dL Low 6.3-8.0 [facility] Comment on above: Order Comment: Iesha marin Type: BLOOD SPECIMENOrdering Facility: [facility] Address: [address] [place] [id number] Performed By: #### 2 4323-8, ####[facility] LABCLIA [id number] [place] [id number] [place] Sodium [Moles/Vol] 139 mmol/L Normal 136-144 [facility] Comment on above: Order Comment: Speci men Type: BLOOD SPECIMENOrdering Facility: [facility] Address: [address] [place] [id number] Performed By: #### 2 4323-8, ####[facility] LABCLIA [id number] [place] [address] [place] Urea nitrogen [Mass/Vol] 15 mg/dL Normal 9-24 [facility] Comment on above: Order Comment: Speci men Type: BLOOD SPECIMENOrdering Facility: [facility] Address: [address] [place] [address] Performed By: #### 2 4323-8, ####[facility] LABCLIA [id number] [place] [address] [place] IR CENTRAL LINE REMOVALon IR CENTRAL LINE REMOVAL Normal [facility] Magnesium SerPl-mCncon 07-18 Magnesium [Mass/Vol] 1.8 mg/dL Normal 1.7-2.3 [facility] Comment on above: Order Comment: Speci men Type: BLOOD SPECIMENOrdering Facility: [facility] Address: [address] [place] [id number] Performed By: #### 2 4323-8, ####[facility] LABCLIA [id number] [place] [id number] [place] NUTRITIONon 07-18-2023 NUTRITION Normal [facility] NUTRITION Normal [facility] PT panel Coag (PPP)on 2022 INR Coag (PPP) [Relative time] 1.0 {INR} Normal 0.9-1.3 [facility] Comment on above: Order Comment: Iesha marin Type: BLOOD SPECIMENOrdering Facility: [facility] Address: [address] [place] [address] Result Comment: Ella min K Antagonist (VKA) Therapeutic Range: INR 2 to 3 (Target INR of 2.5)Note: For patients treated with VKA drugs, such as warfarin, the [place] [employer] 2012 Guideline recommends a therapeutic INR range of 2 to 3 (target INR of 2.5). This recommendation includes high-risk patients with antiphospholipid syndrome with previous arterial or venous thromboembolism, current-generation mechanical or bioprosthetic aortic heart valve replacement.Note: Patients with mechanical aortic valve replacement and additional risk factors for thromboembolic events (atrial fibrillation, previous thromboembolism, LV dysfunction, hypercoagulable conditions) or an older generation mechanical AVR (i.e., ball in-Cage) or any mechanical MVR should have a INR therapeutic range of 2.5 to 3.5 (target INR of 3).Cee GH, et al. Chest 2012, 141:7S-47SNishimura RA, et al. [facility] 2017, 70: 252-289 Performed By: #### 3 4528-0, 62412-5 ####[facility] [id number] [place] [address] [place] PT Coag (PPP) [Time] 10.3 s Normal 9.7-13.0 [facility] Comment on above: Order Comment: Iesha marin Type: BLOOD SPECIMENOrdering Facility: [facility] Address: [address] [place] [address] Performed By: #### 3 4528-0, 89473-2 ####[facility] [id number] [place] [address] [place] Phosphate SerPl-mCncon 07-18 Phosphate [Mass/Vol] 3.4 mg/dL Normal 2.7-4.8 [facility] Comment on above: Order Comment: Iesha marin Type: BLOOD SPECIMENOrdering Facility: [facility] Address: [address] [place] [address] Performed By: #### 2 777-1 ####[facility] [id number] [place] [address] [place] Tacrolimus Bld-mCncon 2022 Tacrolimus (Bld) [Mass/Vol] 4.3 ng/mL Low 5.0-20.0 [facility] Comment on above: Order Comment: Speci men Type: BLOOD SPECIMENOrdering Facility: [facility] Address: [address] [place] [address] Result Comment: Nayely vidualized target levels for a given patient will depend on many factors (including the type of organ transplant, time since transplantation, concurrent medications, and other clinical factors), and should be assessed by those health care providers experienced in the management of immunosuppression. Reference ranges and high/low indicator flags are provided as general guidelines only. The treating physician must determine appropriate target levels/dosing based on the specific clinical situation. Test performed by chemiluminescent immunoassay using [employer] Al[employer] i. Performed By: #### 1 1253-2 ####[facility] [id number] [place] [address] [place] aPTT PPPon 07-18-2023 aPTT Coag (PPP) [Time] 26.0 s Normal 23.0-32.4 [facility] Comment on above: Order Comment: Speci men Type: BLOOD SPECIMENOrdering Facility: [facility] Address: [address] [place] [address] Performed By: #### 3 4528-0, 35998-7 ####[facility] [id number] [place] [address] [place] CBC W Auto Differential pane l (Bld)on 07-17-2023 Basophils (Bld) [#/Vol] 0.03 10*3/uL Normal <0.11 [facility] Comment on above: Order Comment: Speci men Type: BLOOD SPECIMENOrdering Facility: [facility] Address: [address] [place] [address] Performed By: #### 5 7021-8 ####[facility] LABCLIA [id number] [place] [address] [place] Basophils/100 WBC (Bld) 0.5 % Normal [facility] Comment on above: Order Comment: Speci men Type: BLOOD SPECIMENOrdering Facility: [facility] Address: [address] [place] [address] Performed By: #### 5 7021-8 ####[facility] LABCLIA [id number] [place] [address] [place] Differential cell count method Nom (Bld) Auto Normal [facility] Comment on above: Order Comment: Speci men Type: BLOOD SPECIMENOrdering Facility: [facility] Address: [address] [place] [address] Performed By: #### 5 7021-8 ####[facility] LABCLIA [id number] [place] [address] [place] Eosinophils (Bld) [#/Vol] 0.20 10*3/uL Normal <0.46 [facility] Comment on above: Order Comment: Speci men Type: BLOOD SPECIMENOrdering Facility: [facility] Address: [address] [place] [address] Performed By: #### 5 7021-8 ####[facility] LABCLIA [id number] [place] [address] [place] Eosinophils/100 WBC (Bld) 3.4 % Normal [facility] Comment on above: Order Comment: Speci men Type: BLOOD SPECIMENOrdering Facility: [facility] Address: [address] [place] [address] Performed By: #### 5 7021-8 ####[facility] LABCLIA [id number] [place] [address] [place] Erythrocyte distribution width (RBC) [Ratio] 16.9 % High 11.5-15.0 [facility] Comment on above: Order Comment: Speci men Type: BLOOD SPECIMENOrdering Facility: [facility] Address: [address] [place] [address] Performed By: #### 5 7021-8 ####[facility] LABCLIA [id number] [place] [address] [place] Hematocrit (Bld) [Volume fraction] 25.2 % Low 39.0-51.0 [facility] Comment on above: Order Comment: Speci men Type: BLOOD SPECIMENOrdering Facility: [facility] Address: [address] [place] [address] Performed By: #### 5 7021-8 ####[facility] LABCLIA [id number] [place] [address] [place] Hemoglobin (Bld) [Mass/Vol] 7.8 g/dL Low 13.0-17.0 [facility] Comment on above: Order Comment: Speci men Type: BLOOD SPECIMENOrdering Facility: [facility] Address: [address] [place] [address] Performed By: #### 5 7021-8 ####[facility]CLIA [id number] [place] [address] [place] Immature granulocytes (Bld) [#/Vol] 0.03 10*3/uL Normal <0.10 [facility] Comment on above: Order Comment: Speci men Type: BLOOD SPECIMENOrdering Facility: [facility] Address: [address] [place] [address] Performed By: #### 5 7021-8 ####[facility]CLIA [id number] [place] [address] [place] Immature granulocytes/100 WBC (Bld) 0.5 % Normal [facility] Comment on above: Order Comment: Speci men Type: BLOOD SPECIMENOrdering Facility: [facility] Address: [address] [place] [address] Performed By: #### 5 7021-8 ####[facility]CLIA [id number] [place] [address] [place] Lymphocytes (Bld) [#/Vol] 2.55 10*3/uL Normal 1.00-4.00 [facility] Comment on above: Order Comment: Speci men Type: BLOOD SPECIMENOrdering Facility: [facility] Address: [address] [place] [address] Performed By: #### 5 7021-8 ####[facility]CLIA [id number] [place] [address] [place] Lymphocytes/100 WBC (Bld) 42.9 % Normal [facility] Comment on above: Order Comment: Speci men Type: BLOOD SPECIMENOrdering Facility: [facility] Address: [address] [place] [address] Performed By: #### 5 7021-8 ####[facility]CLIA [id number] [place] [address] [place] MCH (RBC) [Entitic mass] 30.4 pg Normal 26.0-34.0 [facility] Comment on above: Order Comment: Speci men Type: BLOOD SPECIMENOrdering Facility: [facility] Address: [address] [place] [address] Performed By: #### 5 7021-8 ####[facility]CLIA [id number] [place] [address] [place] MCHC (RBC) [Mass/Vol] 31.0 g/dL Normal 30.5-36.0 [facility] Comment on above: Order Comment: Speci men Type: BLOOD SPECIMENOrdering Facility: [facility] Address: [address] [place] [address] Performed By: #### 5 7021-8 ####[facility] LABCLIA [id number] [place] [address] [place] MCV (RBC) [Entitic vol] 98.1 fL Normal 80.0-100.0 [facility] Comment on above: Order Comment: Speci men Type: BLOOD SPECIMENOrdering Facility: [facility] Address: [address] [place] [address] Performed By: #### 5 7021-8 ####[facility]CLIA [id number] [place] [address] [place] Monocytes (Bld) [#/Vol] 0.64 10*3/uL Normal <0.87 [facility] Comment on above: Order Comment: Speci men Type: BLOOD SPECIMENOrdering Facility: [facility] Address: [address] [place] [address] Performed By: #### 5 7021-8 ####[facility] LABCLIA [id number] [place] [address] [place] Monocytes/100 WBC (Bld) 10.8 % Normal [facility] Comment on above: Order Comment: Speci men Type: BLOOD SPECIMENOrdering Facility: [facility] Address: [address] [place] [address] Performed By: #### 5 7021-8 ####[facility] LABCLIA [id number] [place] [address] [place] Neutrophils (Bld) [#/Vol] 2.49 10*3/uL Normal 1.45-7.50 [facility] Comment on above: Order Comment: Speci men Type: BLOOD SPECIMENOrdering Facility: [facility] Address: [address] [place] [address] Performed By: #### 5 7021-8 ####[facility] LABCLIA [id number] [place] [address] [place] Neutrophils/100 WBC (Bld) 41.9 % Normal [facility] Comment on above: Order Comment: Speci men Type: BLOOD SPECIMENOrdering Facility: [facility] Address: [address] [place] [address] Performed By: #### 5 7021-8 ####[facility] LABCLIA [id number] [place] [address] [place] Nucleated RBC (Bld) [#/Vol] 10*3/uL Normal <0.01 [facility] Comment on above: Order Comment: Speci men Type: BLOOD SPECIMENOrdering Facility: [facility] Address: [address] [place] [address] Performed By: #### 5 7021-8 ####[facility] LABCLIA [id number] [place] [address] [place] Nucleated RBC/100 WBC (Bld) [Ratio] 0.0 /100 WBC Normal [facility] Comment on above: Order Comment: Speci men Type: BLOOD SPECIMENOrdering Facility: [facility] Address: [address] [place] [address] Performed By: #### 5 7021-8 ####[facility] LABIA [id number] [place] [address] [place] Platelet mean volume (Bld) [Entitic vol] 9.3 fL Normal 9.0-12.7 [facility] Comment on above: Order Comment: Speci men Type: BLOOD SPECIMENOrdering Facility: [facility] Address: [address] [place] [address] Performed By: #### 5 7021-8 ####[facility] LABIA [id number] [place] [address] [place] Platelets (Bld) [#/Vol] 275 10*3/uL Normal 150-400 [facility] Comment on above: Order Comment: Speci men Type: BLOOD SPECIMENOrdering Facility: [facility] Address: [address] [place] [address] Performed By: #### 5 7021-8 ####[facility] LABCLIA [id number] [place] [address] [place] RBC (Bld) [#/Vol] 2.57 10*6/uL Low 4.20-6.00 [facility] Comment on above: Order Comment: Speci men Type: BLOOD SPECIMENOrdering Facility: [facility] Address: [address] [place] [address] Performed By: #### 5 7021-8 ####[facility] LABCLIA [id number] [address] [address] [place] WBC (Bld) [#/Vol] 5.94 10*3/uL Normal 3.70-11.00 [facility] Comment on above: Order Comment: Speci men Type: BLOOD SPECIMENOrdering Facility: [facility] Address: [address] [place] [address] Performed By: #### 5 7021-8 ####[facility] LABCLIA [id number] [place] [address] [place] Comprehensive metabolic 2000 panelon 07-17-2023 Albumin [Mass/Vol] 2.5 g/dL Low 3.9-4.9 [facility] Comment on above: Order Comment: Speci men Type: BLOOD SPECIMENOrdering Facility: [facility] Address: [address] [place] [address] Performed By: #### 2 4323-8, ####[facility] LABCLIA [id number] [place] [address] [place] ALP [Catalytic activity/Vol] 118 U/L High 38-113 [facility] Comment on above: Order Comment: Speci men Type: BLOOD SPECIMENOrdering Facility: [facility] Address: [address] [place] [address] Performed By: #### 2 4323-8, ####[facility] LABCLIA [id number] [place] [id number] [place] ALT [Catalytic activity/Vol] 24 U/L Normal 10-54 [facility] Comment on above: Order Comment: Speci men Type: BLOOD SPECIMENOrdering Facility: [facility] Address: [address] [place] [address] Performed By: #### 2 432-8, ####[facility] LABCLIA [id number] [place] [address] [place] Anion gap [Moles/Vol] 7 mmol/L Low 9-18 [facility] Comment on above: Order Comment: Speci men Type: BLOOD SPECIMENOrdering Facility: [facility] Address: [address] [place] [address] Performed By: #### 2 4328, ####[facility] LABCLIA [id number] [place] [address] [place] AST [Catalytic activity/Vol] 23 U/L Normal 14-40 [facility] Comment on above: Order Comment: Speci men Type: BLOOD SPECIMENOrdering Facility: [facility] Address: [address] [place] [address] Performed By: #### 2 4323-05, ####[facility] LABCLIA [id number] [place] [address] [place] Bilirubin [Mass/Vol] 0.2 mg/dL Normal 0.2-1.3 [facility] Comment on above: Order Comment: Speci men Type: BLOOD SPECIMENOrdering Facility: [facility] Address: [address] [place] [address] Performed By: #### 2 4323-05, ####[facility] LABCLIA [id number] [place] [address] [place] Calcium [Mass/Vol] 9.1 mg/dL Normal 8.5-10.2 [facility] Comment on above: Order Comment: Speci men Type: BLOOD SPECIMENOrdering Facility: [facility] Address: [address] [place] [address] Performed By: #### 2 432-8, ####[facility] LABCLIA [id number] [place] [address] [place] Chloride [Moles/Vol] 107 mmol/L High 97-105 [facility] Comment on above: Order Comment: Speci men Type: BLOOD SPECIMENOrdering Facility: [facility] Address: [address] [place] [address] Performed By: #### 2 4323-8, 27166-7 ####[facility] LABIA [id number] [place] [address] [place] CO2 [Moles/Vol] 26 mmol/L Normal 22-30 [facility] Comment on above: Order Comment: Speci men Type: BLOOD SPECIMENOrdering Facility: [facility] Address: [address] [place] [address] Performed By: #### 2 4323-8, ####[facility] [id number] [place] [address] [place] Creatinine [Mass/Vol] 1.32 mg/dL High 0.73-1.22 [facility] Comment on above: Order Comment: Speci men Type: BLOOD SPECIMENOrdering Facility: [facility] Address: [address] [place] [address] Performed By: #### 2 4323-8, ####[facility] [id number] [place] [address] [place] Creatinine and Glomerular filtration rate.predicted panel (S/P/Bld) 63 mL/min/1.73m??? Normal >=60 [facility] Comment on above: Order Comment: Speci men Type: BLOOD SPECIMENOrdering Facility: [facility] Address: [address] [place] [address] Result Comment: Dayan mated Glomerular Filtration Rate (eGFR) is calculated using the 2020 CKD-EPI creatinine equation. This equation utilizes serum creatinine, sex, and age as parameters. The creatinine assay has traceable calibration to isotope dilution-mass spectrometry. Refer to KDIGO guidelines for clinical interpretation. In patients with unstable renal function, e.g. those with acute kidney injury, the eGFR may not accurately reflect actual GFR. Performed By: #### 2 4323-8, ####[facility] LABCLIA [id number] [address] [address] [place] Glucose [Mass/Vol] 110 mg/dL High 74-99 [facility] Comment on above: Order Comment: Speci men Type: BLOOD SPECIMENOrdering Facility: [facility] Address: [address] [place] [address] Result Comment: The [place] [employer] (ADA) provides guidance for cutoff values for fasting glucose and random glucose. The ADA defines fasting as no caloric intake for at least 8 hours. Fasting plasma glucose results between 100 to 125 mg/dL indicate increased risk for diabetes (prediabetes).Fasting plasma glucose results greater than or equal to 126 mg/dL meet the criteria for diagnosis of diabetes. In the absence of unequivocal hyperglycemia, results should be confirmed by repeat testing. In a patient with classic symptoms of hyperglycemia or hyperglycemic crisis, random plasma glucose results greater than or equal to 200 mg/dL meet the criteria for diagnosis of diabetes.Reference: Standards of Medical Care in Diabetes 2016, [place] [employer]. Diabetes Care. 2016.39(Suppl 1). Performed By: #### 2 43212-15, ####[facility] LABCLIA [id number] [address] [address] [place] Potassium [Moles/Vol] 4.4 mmol/L Normal 3.7-5.1 [facility] Comment on above: Order Comment: Makaylai men Type: BLOOD SPECIMENOrdering Facility: [facility] Address: [address] [place] [address] Performed By: #### 2 432-, ####[facility] LABCLIA [id number] [address] [address] [place] Protein [Mass/Vol] 5.1 g/dL Low 6.3-8.0 [facility] Comment on above: Order Comment: Speci men Type: BLOOD SPECIMENOrdering Facility: [facility] Address: [address] [place] [address] Performed By: #### 2 4323-8, ####[facility] LABCLIA [id number] [place] [id number] [place] Sodium [Moles/Vol] 140 mmol/L Normal 136-144 [facility] Comment on above: Order Comment: Speci men Type: BLOOD SPECIMENOrdering Facility: [facility] Address: [address] [place] [address] Performed By: #### 2 4323-8, ####[facility] LABIA [id number] [place] [address] [place] Urea nitrogen [Mass/Vol] 20 mg/dL Normal 9-24 [facility] Comment on above: Order Comment: Speci men Type: BLOOD SPECIMENOrdering Facility: [facility] Address: [address] [place] [address] Performed By: #### 2 4323-8, ####[facility] LABIA [id number] [place] [address] [place] Magnesium SerPl-mCncon 07-17 Magnesium [Mass/Vol] 1.9 mg/dL Normal 1.7-2.3 [facility] Comment on above: Order Comment: Speci men Type: BLOOD SPECIMENOrdering Facility: [facility] Address: [address] [place] [address] Performed By: #### 2 4323-8, ####[facility] LABIA [id number] [place] [id number] [place] PT panel Coag (PPP)on 2022 INR Coag (PPP) [Relative time] 1.0 {INR} Normal 0.9-1.3 [facility] Comment on above: Order Comment: Speci men Type: BLOOD SPECIMENOrdering Facility: [facility] Address: [address] [place] [address] Result Comment: Ella min K Antagonist (VKA) Therapeutic Range: INR 2 to 3 (Target INR of 2.5)Note: For patients treated with VKA drugs, such as warfarin, the [place] [employer] 2012 Guideline recommends a therapeutic INR range of 2 to 3 (target INR of 2.5). This recommendation includes high-risk patients with antiphospholipid syndrome with previous arterial or venous thromboembolism, current-generation mechanical or bioprosthetic aortic heart valve replacement.Note: Patients with mechanical aortic valve replacement and additional risk factors for thromboembolic events (atrial fibrillation, previous thromboembolism, LV dysfunction, hypercoagulable conditions) or an older generation mechanical AVR (i.e., ball in-Cage) or any mechanical MVR should have a INR therapeutic range of 2.5 to 3.5 (target INR of 3).Cee GERARD, et al. Chest 2012, 141:7S-47SNisharamis RA, et al. [facility] 2017, 70: 252-289 Performed By: #### 3 4528-0, 99814-1 ####[facility] LABIA [id number] [place] [address] [place] PT Coag (PPP) [Time] 10.2 s Normal 9.7-13.0 [facility] Comment on above: Order Comment: Speci men Type: BLOOD SPECIMENOrdering Facility: [facility] Address: [address] [place] [address] Performed By: #### 3 4528-0, 28108-1 ####[facility] LABIA [id number] [place] [address] [place] Phosphate SerPl-mCncon 07-17 Phosphate [Mass/Vol] 3.2 mg/dL Normal 2.7-4.8 [facility] Comment on above: Order Comment: Speci men Type: BLOOD SPECIMENOrdering Facility: [facility] Address: [address] [place] [address] Performed By: #### 2 777-1 ####[facility] LABCLIA [id number] [place] [address] [place] Tacrolimus Bld-mCncon 2022 Tacrolimus (Bld) [Mass/Vol] 5.3 ng/mL Normal 5.0-20.0 [facility] Comment on above: Order Comment: Iesha marin Type: BLOOD SPECIMENOrdering Facility: [facility] Address: [address] [place] [address] Result Comment: Nayely vidualized target levels for a given patient will depend on many factors (including the type of organ transplant, time since transplantation, concurrent medications, and other clinical factors), and should be assessed by those health care providers experienced in the management of immunosuppression. Reference ranges and high/low indicator flags are provided as general guidelines only. The treating physician must determine appropriate target levels/dosing based on the specific clinical situation. Test performed by chemiluminescent immunoassay using Cumul[employer] Alinity i. Performed By: #### 1 1253-2 ####[facility] LABIA [id number] [place] [address] [place] aPTT PPPon 07-17-2023 aPTT Coag (PPP) [Time] 26.2 s Normal 23.0-32.4 [facility] Comment on above: Order Comment: Iesha marin Type: BLOOD SPECIMENOrdering Facility: [facility] Address: [address] [place] [address] Performed By: #### 3 4528-0, 90236-0 ####[facility] LABIA [id number] [place] [address] [place] CBC W Auto Differential pane l (Bld)on 07-16-2023 Basophils (Bld) [#/Vol] 0.03 10*3/uL Normal <0.11 [facility] Comment on above: Order Comment: Iesha marin Type: BLOOD SPECIMENOrdering Facility: [facility] Address: [address] [place] [address] Performed By: #### 5 7021-8 ####[facility] LABIA [id number] [place] [address] [place] Basophils/100 WBC (Bld) 0.5 % Normal [facility] Comment on above: Order Comment: Speci men Type: BLOOD SPECIMENOrdering Facility: [facility] Address: [address] [place] [address] Performed By: #### 5 7021-8 ####[facility] LABCLIA [id number] [place] [address] [place] Differential cell count method Nom (Bld) Auto Normal [facility] Comment on above: Order Comment: Speci men Type: BLOOD SPECIMENOrdering Facility: [facility] Address: [address] [place] [address] Performed By: #### 5 7021-8 ####[facility] LABCLIA [id number] [place] [address] [place] Eosinophils (Bld) [#/Vol] 0.24 10*3/uL Normal <0.46 [facility] Comment on above: Order Comment: Speci men Type: BLOOD SPECIMENOrdering Facility: [facility] Address: [address] [place] [address] Performed By: #### 5 7021-8 ####[facility] LABCLIA [id number] [place] [address] [place] Eosinophils/100 WBC (Bld) 4.0 % Normal [facility] Comment on above: Order Comment: Speci men Type: BLOOD SPECIMENOrdering Facility: [facility] Address: [address] [place] [address] Performed By: #### 5 7021-8 ####[facility] LABCLIA [id number] [place] [address] [place] Erythrocyte distribution width (RBC) [Ratio] 16.6 % High 11.5-15.0 [facility] Comment on above: Order Comment: Speci men Type: BLOOD SPECIMENOrdering Facility: [facility] Address: [address] [place] [address] Performed By: #### 5 7021-8 ####[facility] LABCLIA [id number] [place] [address] [place] Hematocrit (Bld) [Volume fraction] 25.1 % Low 39.0-51.0 [facility] Comment on above: Order Comment: Speci men Type: BLOOD SPECIMENOrdering Facility: [facility] Address: [address] [place] [address] Performed By: #### 5 7021-8 ####[facility] LABCLIA [id number] [place] [address] [place] Hemoglobin (Bld) [Mass/Vol] 7.9 g/dL Low 13.0-17.0 [facility] Comment on above: Order Comment: Speci men Type: BLOOD SPECIMENOrdering Facility: [facility] Address: [address] [place] [address] Performed By: #### 5 7021-8 ####[facility] LABCLIA [id number] [place] [address] [place] Immature granulocytes (Bld) [#/Vol] 10*3/uL Normal <0.10 [facility] Comment on above: Order Comment: Speci men Type: BLOOD SPECIMENOrdering Facility: [facility] Address: [address] [place] [address] Performed By: #### 5 7021-8 ####[facility] LABCLIA [id number] [place] [address] [place] Immature granulocytes/100 WBC (Bld) 0.3 % Normal [facility] Comment on above: Order Comment: Speci men Type: BLOOD SPECIMENOrdering Facility: [facility] Address: [address] [place] [address] Performed By: #### 5 7021-8 ####[facility] LABCLIA [id number] [place] [address] [place] Lymphocytes (Bld) [#/Vol] 2.52 10*3/uL Normal 1.00-4.00 [facility] Comment on above: Order Comment: Speci men Type: BLOOD SPECIMENOrdering Facility: [facility] Address: [address] [place] [address] Performed By: #### 5 7021-8 ####[facility] LABCLIA [id number] [place] [address] [place] Lymphocytes/100 WBC (Bld) 42.3 % Normal [facility] Comment on above: Order Comment: Speci men Type: BLOOD SPECIMENOrdering Facility: [facility] Address: [address] [place] [address] Performed By: #### 5 7021-8 ####[facility] LABIA [id number] [place] [address] [place] MCH (RBC) [Entitic mass] 30.4 pg Normal 26.0-34.0 [facility] Comment on above: Order Comment: Speci men Type: BLOOD SPECIMENOrdering Facility: [facility] Address: [address] [place] [address] Performed By: #### 5 7021-8 ####[facility] LABIA [id number] [place] [address] [place] MCHC (RBC) [Mass/Vol] 31.5 g/dL Normal 30.5-36.0 [facility] Comment on above: Order Comment: Speci men Type: BLOOD SPECIMENOrdering Facility: [facility] Address: [address] [place] [address] Performed By: #### 5 7021-8 ####[facility] LABIA [id number] [place] [address] [place] MCV (RBC) [Entitic vol] 96.5 fL Normal 80.0-100.0 [facility] Comment on above: Order Comment: Speci men Type: BLOOD SPECIMENOrdering Facility: [facility] Address: [address] [place] [address] Performed By: #### 5 7021-8 ####[facility] LABCLIA [id number] [place] [address] [place] Monocytes (Bld) [#/Vol] 0.57 10*3/uL Normal <0.87 [facility] Comment on above: Order Comment: Speci men Type: BLOOD SPECIMENOrdering Facility: [facility] Address: [address] [place] [address] Performed By: #### 5 7021-8 ####[facility] LABCLIA [id number] [place] [address] [place] Monocytes/100 WBC (Bld) 9.6 % Normal [facility] Comment on above: Order Comment: Speci men Type: BLOOD SPECIMENOrdering Facility: [facility] Address: [address] [place] [address] Performed By: #### 5 7021-8 ####[facility] LABCLIA [id number] [place] [address] [place] Neutrophils (Bld) [#/Vol] 2.58 10*3/uL Normal 1.45-7.50 [facility] Comment on above: Order Comment: Speci men Type: BLOOD SPECIMENOrdering Facility: [facility] Address: [address] [place] [address] Performed By: #### 5 7021-8 ####[facility] LABCLIA [id number] [place] [address] [place] Neutrophils/100 WBC (Bld) 43.3 % Normal [facility] Comment on above: Order Comment: Speci men Type: BLOOD SPECIMENOrdering Facility: [facility] Address: [address] [place] [address] Performed By: #### 5 7021-8 ####[facility] LABCLIA [id number] [place] [address] [place] Nucleated RBC (Bld) [#/Vol] 10*3/uL Normal <0.01 [facility] Comment on above: Order Comment: Speci men Type: BLOOD SPECIMENOrdering Facility: [facility] Address: [address] [place] [address] Performed By: #### 5 7021-8 ####[facility] LABCLIA [id number] [place] [address] [place] Nucleated RBC/100 WBC (Bld) [Ratio] 0.0 /100 WBC Normal [facility] Comment on above: Order Comment: Speci men Type: BLOOD SPECIMENOrdering Facility: [facility] Address: [address] [place] [address] Performed By: #### 5 7021-8 ####[facility] LABIA [id number] [place] [address] [place] Platelet mean volume (Bld) [Entitic vol] 9.3 fL Normal 9.0-12.7 [facility] Comment on above: Order Comment: Speci men Type: BLOOD SPECIMENOrdering Facility: [facility] Address: [address] [place] [address] Performed By: #### 5 7021-8 ####[facility]IA [id number] [place] [address] [place] Platelets (Bld) [#/Vol] 263 10*3/uL Normal 150-400 [facility] Comment on above: Order Comment: Speci men Type: BLOOD SPECIMENOrdering Facility: [facility] Address: [address] [place] [address] Performed By: #### 5 7021-8 ####[facility] LABIA [id number] [place] [address] [place] RBC (Bld) [#/Vol] 2.60 10*6/uL Low 4.20-6.00 [facility] Comment on above: Order Comment: Speci men Type: BLOOD SPECIMENOrdering Facility: [facility] Address: [address] [place] [address] Performed By: #### 5 7021-8 ####[facility] LABCLIA [id number] [place] [address] [place] WBC (Bld) [#/Vol] 5.96 10*3/uL Normal 3.70-11.00 [facility] Comment on above: Order Comment: Speci men Type: BLOOD SPECIMENOrdering Facility: [facility] Address: [address] [place] [address] Performed By: #### 5 7021-8 ####[facility] LABCLIA [id number] [place] [address] [place] CBC panel Auto (Bld)on 07-16 Erythrocyte distribution width (RBC) [Ratio] 16.6 % High 11.5-15.0 [facility] Comment on above: Order Comment: Speci men Type: BLOOD SPECIMENOrdering Facility: [facility] Address: [address] [place] [address] Performed By: #### 5 8410-2 ####[facility] LABCLIA [id number] [place] [address] [place] Hematocrit (Bld) [Volume fraction] 26.1 % Low 39.0-51.0 [facility] Comment on above: Order Comment: Speci men Type: BLOOD SPECIMENOrdering Facility: [facility] Address: [address] [place] [address] Performed By: #### 5 8410-2 ####[facility] LABCLIA [id number] [place] [id number] [place] Hemoglobin (Bld) [Mass/Vol] 8.2 g/dL Low 13.0-17.0 [facility] Comment on above: Order Comment: Speci men Type: BLOOD SPECIMENOrdering Facility: [facility] Address: [address] [place] [address] Performed By: #### 5 8410-2 ####[facility] LABCLIA [id number] [place] [address] [place] MCH (RBC) [Entitic mass] 30.5 pg Normal 26.0-34.0 [facility] Comment on above: Order Comment: Speci men Type: BLOOD SPECIMENOrdering Facility: [facility] Address: [address] [place] [address] Performed By: #### 5 8410-2 ####[facility] LABIA [id number] [place] [address] [place] MCHC (RBC) [Mass/Vol] 31.4 g/dL Normal 30.5-36.0 [facility] Comment on above: Order Comment: Speci men Type: BLOOD SPECIMENOrdering Facility: [facility] Address: [address] [place] [address] Performed By: #### 5 8410-2 ####[facility]IA [id number] [place] [address] [place] MCV (RBC) [Entitic vol] 97.0 fL Normal 80.0-100.0 [facility] Comment on above: Order Comment: Speci men Type: BLOOD SPECIMENOrdering Facility: [facility] Address: [address] [place] [address] Performed By: #### 5 8410-2 ####[facility] [id number] [place] [address] [place] Nucleated RBC (Bld) [#/Vol] 10*3/uL Normal <0.01 [facility] Comment on above: Order Comment: Speci men Type: BLOOD SPECIMENOrdering Facility: [facility] Address: [address] [place] [address] Performed By: #### 5 8410-2 ####[facility] LABIA [id number] [place] [address] [place] Platelet mean volume (Bld) [Entitic vol] 9.4 fL Normal 9.0-12.7 [facility] Comment on above: Order Comment: Speci men Type: BLOOD SPECIMENOrdering Facility: [facility] Address: [address] [place] [address] Performed By: #### 5 8410-2 ####[facility] LABCLIA [id number] [place] [address] [place] Platelets (Bld) [#/Vol] 288 10*3/uL Normal 150-400 [facility] Comment on above: Order Comment: Speci men Type: BLOOD SPECIMENOrdering Facility: [facility] Address: [address] [place] [address] Performed By: #### 5 8410-2 ####[facility] LABIA [id number] [place] [address] [place] RBC (Bld) [#/Vol] 2.69 10*6/uL Low 4.20-6.00 [facility] Comment on above: Order Comment: Speci men Type: BLOOD SPECIMENOrdering Facility: [facility] Address: [address] [place] [address] Performed By: #### 5 8410-2 ####[facility] LABIA [id number] [place] [address] [place] WBC (Bld) [#/Vol] 6.71 10*3/uL Normal 3.70-11.00 [facility] Comment on above: Order Comment: Speci men Type: BLOOD SPECIMENOrdering Facility: [facility] Address: [address] [place] [address] Performed By: #### 5 8410-2 ####[facility] LABIA [id number] [place] [address] [place] Comprehensive metabolic 2000 panelon 07-16-2023 Albumin [Mass/Vol] 2.6 g/dL Low 3.9-4.9 [facility] Comment on above: Order Comment: Speci men Type: BLOOD SPECIMENOrdering Facility: [facility] Address: [address] [place] [address] Performed By: #### 2 777-1, , ####[facility] LABCLIA [id number] [place] [address] [place] ALP [Catalytic activity/Vol] 119 U/L High 38-113 [facility] Comment on above: Order Comment: Speci men Type: BLOOD SPECIMENOrdering Facility: [facility] Address: [address] [place] [address] Performed By: #### 2 777-1, , ####[facility] LABCLIA [id number] [place] [address] [place] ALT [Catalytic activity/Vol] 18 U/L Normal 10-54 [facility] Comment on above: Order Comment: Speci men Type: BLOOD SPECIMENOrdering Facility: [facility] Address: [address] [place] [address] Performed By: #### 2 777-1, , ####[facility] LABIA [id number] [place] [address] [place] Anion gap [Moles/Vol] 7 mmol/L Low 9-18 [facility] Comment on above: Order Comment: Speci men Type: BLOOD SPECIMENOrdering Facility: [facility] Address: [address] [place] [address] Performed By: #### 2 777-1, , ####[facility] LABIA [id number] [place] [address] [place] AST [Catalytic activity/Vol] 17 U/L Normal 14-40 [facility] Comment on above: Order Comment: Speci men Type: BLOOD SPECIMENOrdering Facility: [facility] Address: [address] [place] [address] Performed By: #### 2 777-1, , ####[facility] LABCLIA [id number] [address] [address] [place] Bilirubin [Mass/Vol] 0.2 mg/dL Normal 0.2-1.3 [facility] Comment on above: Order Comment: Speci men Type: BLOOD SPECIMENOrdering Facility: [facility] Address: [address] [place] [address] Performed By: #### 2 777-1, , ####[facility] LABCLIA [id number] [address] [address] [place] Calcium [Mass/Vol] 8.8 mg/dL Normal 8.5-10.2 [facility] Comment on above: Order Comment: Speci men Type: BLOOD SPECIMENOrdering Facility: [facility] Address: [address] [place] [address] Performed By: #### 2 777-1, , ####[facility] LABCLIA [id number] [place] [id number] [place] Chloride [Moles/Vol] 108 mmol/L High 97-105 [facility] Comment on above: Order Comment: Speci men Type: BLOOD SPECIMENOrdering Facility: [facility] Address: [address] [place] [address] Performed By: #### 2 777-1, , ####[facility] LABCLIA [id number] [address] [address] [place] CO2 [Moles/Vol] 26 mmol/L Normal 22-30 [facility] Comment on above: Order Comment: Speci men Type: BLOOD SPECIMENOrdering Facility: [facility] Address: [address] [place] [id number] Performed By: #### 2 777-1, , ####[facility] LABCLIA [id number] [place] [id number] [place] Creatinine [Mass/Vol] 1.32 mg/dL High 0.73-1.22 [facility] Comment on above: Order Comment: Iesha marin Type: BLOOD SPECIMENOrdering Facility: [facility] Address: [address] [place] [address] Performed By: #### 2 777-1, 07808-5, ####[facility] LABIA [id number] [place] [address] [place] Creatinine and Glomerular filtration rate.predicted panel (S/P/Bld) 63 mL/min/1.73m??? Normal >=60 [facility] Comment on above: Order Comment: Iesha marin Type: BLOOD SPECIMENOrdering Facility: [facility] Address: [address] [place] [address] Result Comment: Dayan mated Glomerular Filtration Rate (eGFR) is calculated using the 2020 CKD-EPI creatinine equation. This equation utilizes serum creatinine, sex, and age as parameters. The creatinine assay has traceable calibration to isotope dilution-mass spectrometry. Refer to KDIGO guidelines for clinical interpretation. In patients with unstable renal function, e.g. those with acute kidney injury, the eGFR may not accurately reflect actual GFR. Performed By: #### 2 777-1, , ####[facility] LABIA [id number] [place] [id number] [place] Glucose [Mass/Vol] 120 mg/dL High 74-99 [facility] Comment on above: Order Comment: Iesha marin Type: BLOOD SPECIMENOrdering Facility: [facility] Address: [address] [place] [address] Result Comment: The [place] Diabetes Association (ADA) provides guidance for cutoff values for fasting glucose and random glucose. The ADA defines fasting as no caloric intake for at least 8 hours. Fasting plasma glucose results between 100 to 125 mg/dL indicate increased risk for diabetes (prediabetes).Fasting plasma glucose results greater than or equal to 126 mg/dL meet the criteria for diagnosis of diabetes. In the absence of unequivocal hyperglycemia, results should be confirmed by repeat testing. In a patient with classic symptoms of hyperglycemia or hyperglycemic crisis, random plasma glucose results greater than or equal to 200 mg/dL meet the criteria for diagnosis of diabetes.Reference: Standards of Medical Care in Diabetes 2016, [place] [employer]. Diabetes Care. 2016.39(Suppl 1). Performed By: #### 2 777-1, , ####[facility] LABCLIA [id number] [place] [address] [place] Potassium [Moles/Vol] 4.7 mmol/L Normal 3.7-5.1 [facility] Comment on above: Order Comment: Speci men Type: BLOOD SPECIMENOrdering Facility: [facility] Address: [address] [place] [address] Performed By: #### 2 777-1, , ####[facility] LABCLIA [id number] [place] [address] [place] Protein [Mass/Vol] 5.0 g/dL Low 6.3-8.0 [facility] Comment on above: Order Comment: Speci men Type: BLOOD SPECIMENOrdering Facility: [facility] Address: [address] [place] [address] Performed By: #### 2 777-1, , ####[facility] LABCLIA [id number] [place] [address] [place] Sodium [Moles/Vol] 141 mmol/L Normal 136-144 [facility] Comment on above: Order Comment: Speci men Type: BLOOD SPECIMENOrdering Facility: [facility] Address: [address] [place] [address] Performed By: #### 2 777-1, , ####[facility] LABCLIA [id number] [place] [id number] [place] Urea nitrogen [Mass/Vol] 19 mg/dL Normal 9-24 [facility] Comment on above: Order Comment: Iesha marin Type: BLOOD SPECIMENOrdering Facility: [facility] Address: [address] [place] [address] Performed By: #### 2 777-1, 44186-7, ####[facility] LABCLIA [id number] [address] [place] Magnesium SerPl-mCncon 07-16 Magnesium [Mass/Vol] 1.9 mg/dL Normal 1.7-2.3 [facility] Comment on above: Order Comment: Iesha marin Type: BLOOD SPECIMENOrdering Facility: [facility] Address: [address] [place] [address] Performed By: #### 2 777-1, 16625-5, ####[facility] LABCLIA [id number] [address] [place] PT panel Coag (PPP)on 2022 INR Coag (PPP) [Relative time] 1.0 {INR} Normal 0.9-1.3 [facility] Comment on above: Order Comment: Iesha marin Type: BLOOD SPECIMENOrdering Facility: [facility] Address: [address] [place] [address] Result Comment: Ella min K Antagonist (VKA) Therapeutic Range: INR 2 to 3 (Target INR of 2.5)Note: For patients treated with VKA drugs, such as warfarin, the [place] [employer] 2012 Guideline recommends a therapeutic INR range of 2 to 3 (target INR of 2.5). This recommendation includes high-risk patients with antiphospholipid syndrome with previous arterial or venous thromboembolism, current-generation mechanical or bioprosthetic aortic heart valve replacement.Note: Patients with mechanical aortic valve replacement and additional risk factors for thromboembolic events (atrial fibrillation, previous thromboembolism, LV dysfunction, hypercoagulable conditions) or an older generation mechanical AVR (i.e., ball in-Cage) or any mechanical MVR should have a INR therapeutic range of 2.5 to 3.5 (target INR of 3).Guyatt GH, et al. Chest 2012, 141:7S-47SLiberty RA, et al. [facility] 2017, 70: 252-289 Performed By: #### 1 4979-9, 61041-4 ####[facility] LABCLIA [id number] [place] [id number] [place] PT Coag (PPP) [Time] 10.3 s Normal 9.7-13.0 [facility] Comment on above: Order Comment: Speci men Type: BLOOD SPECIMENOrdering Facility: [facility] Address: [address] [place] [address] Performed By: #### 1 4979-9, 54696-5 ####[facility] LABIA [id number] [place] [id number] [place] Phosphate [facility] Phosphate [Mass/Vol] 2.9 mg/dL Normal 2.7-4.8 [facility] Comment on above: Order Comment: Makaylai tania Type: BLOOD SPECIMENOrdering Facility: [facility] Address: [address] [place] [address] Performed By: #### 2 777-1, 57484-1, 72221-8 ####[facility] [id number] [place] [address] [place] Tacrolimus Bld-mCncon 2022 Tacrolimus (Bld) [Mass/Vol] 5.8 ng/mL Normal 5.0-20.0 [facility] Comment on above: Order Comment: Iesha marin Type: BLOOD SPECIMENOrdering Facility: [facility] Address: [address] [place] [address] Result Comment: Nayely vidualized target levels for a given patient will depend on many factors (including the type of organ transplant, time since transplantation, concurrent medications, and other clinical factors), and should be assessed by those health care providers experienced in the management of immunosuppression. Reference ranges and high/low indicator flags are provided as general guidelines only. The treating physician must determine appropriate target levels/dosing based on the specific clinical situation. Test performed by chemiluminescent immunoassay using Cumulux Alinity i. Performed By: #### 1 1253-2 ####[facility] LABCLIA [id number] [place] [address] [place] aPTT PPPon 07-16-2023 aPTT Coag (PPP) [Time] 24.9 s Normal 23.0-32.4 [facility] Comment on above: Order Comment: Speci men Type: BLOOD SPECIMENOrdering Facility: [facility] Address: [address] [place] [address] Performed By: #### 1 4979-9, 05364-3 ####[facility]IA [id number] [place] [address] [place] CASE MANAGEMon 07-15-2023 CASE MANAGEM Normal [facility] CBC W Auto Differential pane l (Bld)on 07-15-2023 Basophils (Bld) [#/Vol] 0.03 10*3/uL Normal <0.11 [facility] Comment on above: Order Comment: Speci men Type: BLOOD SPECIMENOrdering Facility: [facility] Address: [address] [place] [address] Performed By: #### 5 7021-8 ####[facility] LABCLIA [id number] [place] [address] [place] Basophils/100 WBC (Bld) 0.6 % Normal [facility] Comment on above: Order Comment: Speci men Type: BLOOD SPECIMENOrdering Facility: [facility] Address: [address] [place] [address] Performed By: #### 5 7021-8 ####[facility] [id number] [place] [address] [place] Differential cell count method Nom (Bld) Auto Normal [facility] Comment on above: Order Comment: Speci men Type: BLOOD SPECIMENOrdering Facility: [facility] Address: [address] [place] [address] Performed By: #### 5 7021-8 ####[facility]CLIA [id number] [place] [address] [place] Eosinophils (Bld) [#/Vol] 0.21 10*3/uL Normal <0.46 [facility] Comment on above: Order Comment: Speci men Type: BLOOD SPECIMENOrdering Facility: [facility] Address: [address] [place] [address] Performed By: #### 5 7021-8 ####[facility] LABCLIA [id number] [place] [address] [place] Eosinophils/100 WBC (Bld) 4.3 % Normal [facility] Comment on above: Order Comment: Speci men Type: BLOOD SPECIMENOrdering Facility: [facility] Address: [address] [place] [address] Performed By: #### 5 7021-8 ####[facility] LABCLIA [id number] [place] [address] [place] Erythrocyte distribution width (RBC) [Ratio] 16.4 % High 11.5-15.0 [facility] Comment on above: Order Comment: Speci men Type: BLOOD SPECIMENOrdering Facility: [facility] Address: [address] [place] [address] Performed By: #### 5 7021-8 ####[facility]CLIA [id number] [place] [address] [place] Hematocrit (Bld) [Volume fraction] 23.6 % Low 39.0-51.0 [facility] Comment on above: Order Comment: Speci men Type: BLOOD SPECIMENOrdering Facility: [facility] Address: [address] [place] [address] Performed By: #### 5 7021-8 ####[facility]CLIA [id number] [place] [address] [place] Hemoglobin (Bld) [Mass/Vol] 7.4 g/dL Low 13.0-17.0 [facility] Comment on above: Order Comment: Speci men Type: BLOOD SPECIMENOrdering Facility: [facility] Address: [address] [place] [address] Performed By: #### 5 7021-8 ####[facility]CLIA [id number] [facility] [place] [address] [place] Immature granulocytes (Bld) [#/Vol] 10*3/uL Normal <0.10 [facility] Comment on above: Order Comment: Speci men Type: BLOOD SPECIMENOrdering Facility: [facility] Address: [address] [place] [address] Performed By: #### 5 7021-8 ####[facility]CLIA [id number] [place] [address] [place] Immature granulocytes/100 WBC (Bld) 0.4 % Normal [facility] Comment on above: Order Comment: Speci men Type: BLOOD SPECIMENOrdering Facility: [facility] Address: [address] [place] [address] Performed By: #### 5 7021-8 ####[facility]CLIA [id number] [place] [address] [place] Lymphocytes (Bld) [#/Vol] 2.22 10*3/uL Normal 1.00-4.00 [facility] Comment on above: Order Comment: Speci men Type: BLOOD SPECIMENOrdering Facility: [facility] Address: [address] [place] [address] Performed By: #### 5 7021-8 ####[facility]CLIA [id number] [place] [address] [place] Lymphocytes/100 WBC (Bld) 46.0 % Normal [facility] Comment on above: Order Comment: Speci men Type: BLOOD SPECIMENOrdering Facility: [facility] Address: [address] [place] [address] Performed By: #### 5 7021-8 ####[facility]IA [id number] [place] [address] [place] MCH (RBC) [Entitic mass] 30.6 pg Normal 26.0-34.0 [facility] Comment on above: Order Comment: Speci men Type: BLOOD SPECIMENOrdering Facility: [facility] Address: [address] [place] [address] Performed By: #### 5 7021-8 ####[facility] [id number] [place] [address] [place] MCHC (RBC) [Mass/Vol] 31.4 g/dL Normal 30.5-36.0 [facility] Comment on above: Order Comment: Speci men Type: BLOOD SPECIMENOrdering Facility: [facility] Address: [address] [place] [address] Performed By: #### 5 7021-8 ####[facility] [id number] [place] [address] [place] MCV (RBC) [Entitic vol] 97.5 fL Normal 80.0-100.0 [facility] Comment on above: Order Comment: Speci men Type: BLOOD SPECIMENOrdering Facility: [facility] Address: [address] [place] [address] Performed By: #### 5 7021-8 ####[facility] [id number] [place] [address] [place] Monocytes (Bld) [#/Vol] 0.46 10*3/uL Normal <0.87 [facility] Comment on above: Order Comment: Speci men Type: BLOOD SPECIMENOrdering Facility: [facility] Address: [address] [place] [address] Performed By: #### 5 7021-8 ####[facility] LABIA [id number] [place] [address] [place] Monocytes/100 WBC (Bld) 9.5 % Normal [facility] Comment on above: Order Comment: Speci men Type: BLOOD SPECIMENOrdering Facility: [facility] Address: [address] [place] [address] Performed By: #### 5 7021-8 ####[facility] LABCLIA [id number] [place] [address] [place] Neutrophils (Bld) [#/Vol] 1.89 10*3/uL Normal 1.45-7.50 [facility] Comment on above: Order Comment: Speci men Type: BLOOD SPECIMENOrdering Facility: [facility] Address: [address] [place] [address] Performed By: #### 5 7021-8 ####[facility] LABCLIA [id number] [place] [address] [place] Neutrophils/100 WBC (Bld) 39.2 % Normal [facility] Comment on above: Order Comment: Speci men Type: BLOOD SPECIMENOrdering Facility: [facility] Address: [address] [place] [address] Performed By: #### 5 7021-8 ####[facility] LABCLIA [id number] [place] [address] [place] Nucleated RBC (Bld) [#/Vol] 10*3/uL Normal <0.01 [facility] Comment on above: Order Comment: Speci men Type: BLOOD SPECIMENOrdering Facility: [facility] Address: [address] [place] [address] Performed By: #### 5 7021-8 ####[facility] LABCLIA [id number] [place] [address] [place] Nucleated RBC/100 WBC (Bld) [Ratio] 0.0 /100 WBC Normal [facility] Comment on above: Order Comment: Speci men Type: BLOOD SPECIMENOrdering Facility: [facility] Address: [address] [place] [address] Performed By: #### 5 7021-8 ####[facility] LABCLIA [id number] [place] [address] [place] Platelet mean volume (Bld) [Entitic vol] 9.1 fL Normal 9.0-12.7 [facility] Comment on above: Order Comment: Speci men Type: BLOOD SPECIMENOrdering Facility: [facility] Address: [address] [place] [address] Performed By: #### 5 7021-8 ####[facility] LABCLIA [id number] [place] [address] [place] Platelets (Bld) [#/Vol] 249 10*3/uL Normal 150-400 [facility] Comment on above: Order Comment: Speci men Type: BLOOD SPECIMENOrdering Facility: [facility] Address: [address] [place] [address] Performed By: #### 5 7021-8 ####[facility] LABIA [id number] [place] [address] [place] RBC (Bld) [#/Vol] 2.42 10*6/uL Low 4.20-6.00 [facility] Comment on above: Order Comment: Speci men Type: BLOOD SPECIMENOrdering Facility: [facility] Address: [address] [place] [address] Performed By: #### 5 7021-8 ####[facility] LABCLIA [id number] [place] [id number] [place] WBC (Bld) [#/Vol] 4.83 10*3/uL Normal 3.70-11.00 [facility] Comment on above: Order Comment: Speci men Type: BLOOD SPECIMENOrdering Facility: [facility] Address: [address] [place] [address] Performed By: #### 5 7021-8 ####[facility] LABCLIA [id number] [address] [address] [place] CONSULT PROGon 07-15-2023 CONSULT PROG Normal [facility] Comprehensive metabolic 2000 panelon 07-15-2023 Albumin [Mass/Vol] 2.5 g/dL Low 3.9-4.9 [facility] Comment on above: Order Comment: Speci men Type: BLOOD SPECIMENOrdering Facility: [facility] Address: [address] [place] [address] Performed By: #### 2 777-1, , ####[facility] LABCLIA [id number] [place] [address] [place] ALP [Catalytic activity/Vol] 111 U/L Normal 38-113 [facility] Comment on above: Order Comment: Speci men Type: BLOOD SPECIMENOrdering Facility: [facility] Address: [address] [place] [address] Performed By: #### 2 777-1, , ####[facility] LABCLIA [id number] [place] [id number] [place] ALT [Catalytic activity/Vol] 16 U/L Normal 10-54 [facility] Comment on above: Order Comment: Speci men Type: BLOOD SPECIMENOrdering Facility: [facility] Address: [address] [place] [address] Performed By: #### 2 777-1, , ####[facility] LABCLIA [id number] [place] [id number] [place] Anion gap [Moles/Vol] 4 mmol/L Low 9-18 [facility] Comment on above: Order Comment: Speci men Type: BLOOD SPECIMENOrdering Facility: [facility] Address: [address] [place] [address] Performed By: #### 2 777-1, , ####[facility] LABCLIA [id number] [place] [address] [place] AST [Catalytic activity/Vol] 15 U/L Normal 14-40 [facility] Comment on above: Order Comment: Speci men Type: BLOOD SPECIMENOrdering Facility: [facility] Address: [address] [place] [address] Performed By: #### 2 777-1, , ####[facility] LABCLIA [id number] [place] [address] [place] Bilirubin [Mass/Vol] 0.2 mg/dL Normal 0.2-1.3 [facility] Comment on above: Order Comment: Speci men Type: BLOOD SPECIMENOrdering Facility: [facility] Address: [address] [place] [address] Performed By: #### 2 777-1, , ####[facility] LABCLIA [id number] [place] [address] [place] Calcium [Mass/Vol] 8.7 mg/dL Normal 8.5-10.2 [facility] Comment on above: Order Comment: Speci men Type: BLOOD SPECIMENOrdering Facility: [facility] Address: [address] [place] [address] Performed By: #### 2 777-1, , ####[facility] LABCLIA [id number] [place] [address] [place] Chloride [Moles/Vol] 109 mmol/L High 97-105 [facility] Comment on above: Order Comment: Speci men Type: BLOOD SPECIMENOrdering Facility: [facility] Address: [address] [place] [address] Performed By: #### 2 777-1, , ####[facility] LABCLIA [id number] [place] [address] [place] CO2 [Moles/Vol] 28 mmol/L Normal 22-30 [facility] Comment on above: Order Comment: Speci men Type: BLOOD SPECIMENOrdering Facility: [facility] Address: [address] [place] [address] Performed By: #### 2 777-1, , ####[facility] LABCLIA [id number] [place] [address] [place] Creatinine [Mass/Vol] 1.34 mg/dL High 0.73-1.22 [facility] Comment on above: Order Comment: Speci men Type: BLOOD SPECIMENOrdering Facility: [facility] Address: [address] [place] [address] Performed By: #### 2 777-1, , ####[facility] LABCLIA [id number] [place] [address] [place] Creatinine and Glomerular filtration rate.predicted panel (S/P/Bld) 62 mL/min/1.73m??? Normal >=60 [facility] Comment on above: Order Comment: Speci men Type: BLOOD SPECIMENOrdering Facility: [facility] Address: [address] [place] [address] Result Comment: Dayan mated Glomerular Filtration Rate (eGFR) is calculated using the 2020 CKD-EPI creatinine equation. This equation utilizes serum creatinine, sex, and age as parameters. The creatinine assay has traceable calibration to isotope dilution-mass spectrometry. Refer to KDIGO guidelines for clinical interpretation. In patients with unstable renal function, e.g. those with acute kidney injury, the eGFR may not accurately reflect actual GFR. Performed By: #### 2 777-1, , ####[facility] LABCLIA [id number] [place] [address] [place] Glucose [Mass/Vol] 111 mg/dL High 74-99 [facility] Comment on above: Order Comment: Speci men Type: BLOOD SPECIMENOrdering Facility: [facility] Address: [address] [place] [id number] Result Comment: The [place] Diabetes Association (ADA) provides guidance for cutoff values for fasting glucose and random glucose. The ADA defines fasting as no caloric intake for at least 8 hours. Fasting plasma glucose results between 100 to 125 mg/dL indicate increased risk for diabetes (prediabetes).Fasting plasma glucose results greater than or equal to 126 mg/dL meet the criteria for diagnosis of diabetes. In the absence of unequivocal hyperglycemia, results should be confirmed by repeat testing. In a patient with classic symptoms of hyperglycemia or hyperglycemic crisis, random plasma glucose results greater than or equal to 200 mg/dL meet the criteria for diagnosis of diabetes.Reference: Standards of Medical Care in Diabetes 2016, [place] [employer]. Diabetes Care. 2016.39(Suppl 1). Performed By: #### 2 777-1, , ####[facility] LABCLIA [id number] [place] [address] [place] Potassium [Moles/Vol] 4.2 mmol/L Normal 3.7-5.1 [facility] Comment on above: Order Comment: Speci men Type: BLOOD SPECIMENOrdering Facility: [facility] Address: [address] [place] [address] Performed By: #### 2 777-1, , ####[facility] LABCLIA [id number] [place] [id number] [place] Protein [Mass/Vol] 4.7 g/dL Low 6.3-8.0 [facility] Comment on above: Order Comment: Speci men Type: BLOOD SPECIMENOrdering Facility: [facility] Address: [address] [place] [address] Performed By: #### 2 777-1, , ####[facility] LABCLIA [id number] [address] [address] [place] Sodium [Moles/Vol] 141 mmol/L Normal 136-144 [facility] Comment on above: Order Comment: Speci men Type: BLOOD SPECIMENOrdering Facility: [facility] Address: [address] [place] [address] Performed By: #### 2 777-1, , ####[facility] LABIA [id number] [place] [address] [place] Urea nitrogen [Mass/Vol] 13 mg/dL Normal 9-24 [facility] Comment on above: Order Comment: Speci men Type: BLOOD SPECIMENOrdering Facility: [facility] Address: [address] [place] [address] Performed By: #### 2 777-1, , ####[facility] [id number] [place] [address] [place] Magnesium SerPl-mCncon 07-15 Magnesium [Mass/Vol] 1.9 mg/dL Normal 1.7-2.3 [facility] Comment on above: Order Comment: Speci men Type: BLOOD SPECIMENOrdering Facility: [facility] Address: [address] [place] [address] Performed By: #### 2 777-1, , ####[facility] [id number] [place] [address] [place] PT panel Coag (PPP)on 2022 INR Coag (PPP) [Relative time] 1.0 {INR} Normal 0.9-1.3 [facility] Comment on above: Order Comment: Speci men Type: BLOOD SPECIMENOrdering Facility: [facility] Address: [address] [place] [address] Result Comment: Ella min K Antagonist (VKA) Therapeutic Range: INR 2 to 3 (Target INR of 2.5)Note: For patients treated with VKA drugs, such as warfarin, the [place] [employer] 2012 Guideline recommends a therapeutic INR range of 2 to 3 (target INR of 2.5). This recommendation includes high-risk patients with antiphospholipid syndrome with previous arterial or venous thromboembolism, current-generation mechanical or bioprosthetic aortic heart valve replacement.Note: Patients with mechanical aortic valve replacement and additional risk factors for thromboembolic events (atrial fibrillation, previous thromboembolism, LV dysfunction, hypercoagulable conditions) or an older generation mechanical AVR (i.e., ball in-Cage) or any mechanical MVR should have a INR therapeutic range of 2.5 to 3.5 (target INR of 3).Cee GH, et al. Chest 2012, 141:7S-47SLiberty RA, et al. [facility] 2017, 70: 252-289 Performed By: #### 1 4979-9, 50260-4 ####[facility] LABCLIA [id number] [place] [address] [place] PT Coag (PPP) [Time] 10.4 s Normal 9.7-13.0 [facility] Comment on above: Order Comment: Speci men Type: BLOOD SPECIMENOrdering Facility: [facility] Address: [address] [place] [address] Performed By: #### 1 4979-9, 97871-9 ####[facility] LABCLIA [id number] [place] [address] [place] Phosphate [facility] Phosphate [Mass/Vol] 2.9 mg/dL Normal 2.7-4.8 [facility] Comment on above: Order Comment: Iesha marin Type: BLOOD SPECIMENOrdering Facility: [facility] Address: [address] [place] [address] Performed By: #### 2 777-1, 68665-5, 94388-8 ####[facility] LABCLIA [id number] [place] [address] [place] THERAPY NTon 07-15-2023 THERAPY NT Normal [facility] Tacrolimus Bld-mCncon 2022 Tacrolimus (Bld) [Mass/Vol] 3.8 ng/mL Low 5.0-20.0 [facility] Comment on above: Order Comment: Speci men Type: BLOOD SPECIMENOrdering Facility: [facility] Address: [address] [place] [address] Result Comment: Nayely vidualized target levels for a given patient will depend on many factors (including the type of organ transplant, time since transplantation, concurrent medications, and other clinical factors), and should be assessed by those health care providers experienced in the management of immunosuppression. Reference ranges and high/low indicator flags are provided as general guidelines only. The treating physician must determine appropriate target levels/dosing based on the specific clinical situation. Test performed by chemiluminescent immunoassay using [employer]. Performed By: #### 1 1253-2 ####[facility] LABCLIA [id number] [place] [address] [place] US LEG VEIN DVT GABE VAS LABo n 07-15-2023 US LEG VEIN DVT GABE VAS LAB Normal [facility] aPTT PPPon 07-15-2023 aPTT Coag (PPP) [Time] 23.9 s Normal 23.0-32.4 [facility] Comment on above: Order Comment: Makaylai tania Type: BLOOD SPECIMENOrdering Facility: [facility] Address: [address] [place] [address] Performed By: #### 1 4979-9, 45868-0 ####[facility] LABIA [id number] [place] [address] [place] CBC W Auto Differential pane l (Bld)on 07-14-2023 Basophils (Bld) [#/Vol] 0.05 10*3/uL Normal <0.11 [facility] Comment on above: Order Comment: Makaylai tania Type: BLOOD SPECIMENOrdering Facility: [facility] Address: [address] [place] [address] Performed By: #### 5 7021-8 ####[facility] LABCLIA [id number] [place] [address] [place] Basophils/100 WBC (Bld) 1.2 % Normal [facility] Comment on above: Order Comment: Speci men Type: BLOOD SPECIMENOrdering Facility: [facility] Address: [address] [place] [address] Performed By: #### 5 7021-8 ####[facility] LABCLIA [id number] [place] [address] [place] Differential cell count method Nom (Bld) Auto Normal [facility] Comment on above: Order Comment: Speci men Type: BLOOD SPECIMENOrdering Facility: [facility] Address: [address] [place] [address] Performed By: #### 5 7021-8 ####[facility] LABCLIA [id number] [place] [address] [place] Eosinophils (Bld) [#/Vol] 0.17 10*3/uL Normal <0.46 [facility] Comment on above: Order Comment: Speci men Type: BLOOD SPECIMENOrdering Facility: [facility] Address: [address] [place] [address] Performed By: #### 5 7021-8 ####[facility] LABCLIA [id number] [place] [address] [place] Eosinophils/100 WBC (Bld) 3.9 % Normal [facility] Comment on above: Order Comment: Speci men Type: BLOOD SPECIMENOrdering Facility: [facility] Address: [address] [place] [address] Performed By: #### 5 7021-8 ####[facility] LABCLIA [id number] [place] [address] [place] Erythrocyte distribution width (RBC) [Ratio] 16.6 % High 11.5-15.0 [facility] Comment on above: Order Comment: Speci men Type: BLOOD SPECIMENOrdering Facility: [facility] Address: [address] [place] [address] Performed By: #### 5 7021-8 ####[facility] LABCLIA [id number] [place] [address] [place] Hematocrit (Bld) [Volume fraction] 23.3 % Low 39.0-51.0 [facility] Comment on above: Order Comment: Speci men Type: BLOOD SPECIMENOrdering Facility: [facility] Address: [address] [place] [address] Performed By: #### 5 7021-8 ####[facility] LABCLIA [id number] [place] [address] [place] Hemoglobin (Bld) [Mass/Vol] 7.3 g/dL Low 13.0-17.0 [facility] Comment on above: Order Comment: Speci men Type: BLOOD SPECIMENOrdering Facility: [facility] Address: [address] [place] [address] Performed By: #### 5 7021-8 ####[facility] LABCLIA [id number] [place] [address] [place] Immature granulocytes (Bld) [#/Vol] 0.03 10*3/uL Normal <0.10 [facility] Comment on above: Order Comment: Speci men Type: BLOOD SPECIMENOrdering Facility: [facility] Address: [address] [place] [address] Performed By: #### 5 7021-8 ####[facility] LABCLIA [id number] [place] [address] [place] Immature granulocytes/100 WBC (Bld) 0.7 % Normal [facility] Comment on above: Order Comment: Speci men Type: BLOOD SPECIMENOrdering Facility: [facility] Address: [address] [place] [address] Performed By: #### 5 7021-8 ####[facility] LABCLIA [id number] [place] [address] [place] Lymphocytes (Bld) [#/Vol] 1.53 10*3/uL Normal 1.00-4.00 [facility] Comment on above: Order Comment: Speci men Type: BLOOD SPECIMENOrdering Facility: [facility] Address: [address] [place] [address] Performed By: #### 5 7021-8 ####[facility] LABIA [id number] [place] [address] [place] Lymphocytes/100 WBC (Bld) 35.4 % Normal [facility] Comment on above: Order Comment: Speci men Type: BLOOD SPECIMENOrdering Facility: [facility] Address: [address] [place] [address] Performed By: #### 5 7021-8 ####[facility] LABIA [id number] [place] [address] [place] MCH (RBC) [Entitic mass] 30.5 pg Normal 26.0-34.0 [facility] Comment on above: Order Comment: Speci men Type: BLOOD SPECIMENOrdering Facility: [facility] Address: [address] [place] [address] Performed By: #### 5 7021-8 ####[facility] LABIA [id number] [place] [address] [place] MCHC (RBC) [Mass/Vol] 31.3 g/dL Normal 30.5-36.0 [facility] Comment on above: Order Comment: Speci men Type: BLOOD SPECIMENOrdering Facility: [facility] Address: [address] [place] [address] Performed By: #### 5 7021-8 ####[facility] LABIA [id number] [place] [address] [place] MCV (RBC) [Entitic vol] 97.5 fL Normal 80.0-100.0 [facility] Comment on above: Order Comment: Speci men Type: BLOOD SPECIMENOrdering Facility: [facility] Address: [address] [place] [address] Performed By: #### 5 7021-8 ####[facility] LABIA [id number] [place] [address] [place] Monocytes (Bld) [#/Vol] 0.47 10*3/uL Normal <0.87 [facility] Comment on above: Order Comment: Speci men Type: BLOOD SPECIMENOrdering Facility: [facility] Address: [address] [place] [address] Performed By: #### 5 7021-8 ####[facility] LABCLIA [id number] [place] [address] [place] Monocytes/100 WBC (Bld) 10.9 % Normal [facility] Comment on above: Order Comment: Speci men Type: BLOOD SPECIMENOrdering Facility: [facility] Address: [address] [place] [address] Performed By: #### 5 7021-8 ####[facility] LABCLIA [id number] [place] [address] [place] Neutrophils (Bld) [#/Vol] 2.07 10*3/uL Normal 1.45-7.50 [facility] Comment on above: Order Comment: Speci men Type: BLOOD SPECIMENOrdering Facility: [facility] Address: [address] [place] [address] Performed By: #### 5 7021-8 ####[facility] LABCLIA [id number] [place] [address] [place] Neutrophils/100 WBC (Bld) 47.9 % Normal [facility] Comment on above: Order Comment: Speci men Type: BLOOD SPECIMENOrdering Facility: [facility] Address: [address] [place] [address] Performed By: #### 5 7021-8 ####[facility] LABCLIA [id number] [place] [address] [place] Nucleated RBC (Bld) [#/Vol] 10*3/uL Normal <0.01 [facility] Comment on above: Order Comment: Speci men Type: BLOOD SPECIMENOrdering Facility: [facility] Address: [address] [place] [address] Performed By: #### 5 7021-8 ####[facility] LABIA [id number] [place] [address] [place] Nucleated RBC/100 WBC (Bld) [Ratio] 0.0 /100 WBC Normal [facility] Comment on above: Order Comment: Speci men Type: BLOOD SPECIMENOrdering Facility: [facility] Address: [address] [place] [address] Performed By: #### 5 7021-8 ####[facility] LABIA [id number] [place] [address] [place] Platelet mean volume (Bld) [Entitic vol] 9.1 fL Normal 9.0-12.7 [facility] Comment on above: Order Comment: Speci men Type: BLOOD SPECIMENOrdering Facility: [facility] Address: [address] [place] [address] Performed By: #### 5 7021-8 ####[facility] LABIA [id number] [place] [address] [place] Platelets (Bld) [#/Vol] 259 10*3/uL Normal 150-400 [facility] Comment on above: Order Comment: Speci men Type: BLOOD SPECIMENOrdering Facility: [facility] Address: [address] [place] [address] Performed By: #### 5 7021-8 ####[facility] LABIA [id number] [place] [address] [place] RBC (Bld) [#/Vol] 2.39 10*6/uL Low 4.20-6.00 [facility] Comment on above: Order Comment: Speci men Type: BLOOD SPECIMENOrdering Facility: [facility] Address: [address] [place] [address] Performed By: #### 5 7021-8 ####[facility] LABCLIA [id number] [place] [id number] [place] WBC (Bld) [#/Vol] 4.32 10*3/uL Normal 3.70-11.00 [facility] Comment on above: Order Comment: Speci men Type: BLOOD SPECIMENOrdering Facility: [facility] Address: [address] [place] [address] Performed By: #### 5 7021-8 ####[facility] LABCLIA [id number] [place] [address] [place] CONSULTon 07-14-2023 CONSULT Normal [facility] metabolic 2000 panelon 07-14-2023 Albumin [Mass/Vol] 2.6 g/dL Low 3.9-4.9 [facility] Comment on above: Order Comment: Speci men Type: BLOOD SPECIMENOrdering Facility: [facility] Address: [address] [place] [address] Performed By: #### 2 777-1, , ####[facility] LABCLIA [id number] [place] [address] [place] ALP [Catalytic activity/Vol] 101 U/L Normal 38-113 [facility] Comment on above: Order Comment: Speci men Type: BLOOD SPECIMENOrdering Facility: [facility] Address: [address] [place] [address] Performed By: #### 2 777-1, , ####[facility] LABCLIA [id number] [place] [id number] [place] ALT [Catalytic activity/Vol] 15 U/L Normal 10-54 [facility] Comment on above: Order Comment: Speci men Type: BLOOD SPECIMENOrdering Facility: [facility] Address: [address] [place] [address] Performed By: #### 2 777-1, , ####[facility] LABCLIA [id number] [place] [address] [place] Anion gap [Moles/Vol] 7 mmol/L Low 9-18 [facility] Comment on above: Order Comment: Speci men Type: BLOOD SPECIMENOrdering Facility: [facility] Address: [address] [place] [address] Performed By: #### 2 777-1, , ####[facility] LABCLIA [id number] [place] [address] [place] AST [Catalytic activity/Vol] 19 U/L Normal 14-40 [facility] Comment on above: Order Comment: Speci men Type: BLOOD SPECIMENOrdering Facility: [facility] Address: [address] [place] [address] Performed By: #### 2 777-1, , ####[facility] LABCLIA [id number] [place] [address] [place] Bilirubin [Mass/Vol] 0.3 mg/dL Normal 0.2-1.3 [facility] Comment on above: Order Comment: Speci men Type: BLOOD SPECIMENOrdering Facility: [facility] Address: [address] [place] [address] Performed By: #### 2 777-1, , ####[facility] LABCLIA [id number] [place] [address] [place] Calcium [Mass/Vol] 8.7 mg/dL Normal 8.5-10.2 [facility] Comment on above: Order Comment: Speci men Type: BLOOD SPECIMENOrdering Facility: [facility] Address: [address] [place] [address] Performed By: #### 2 777-1, , ####[facility] LABCLIA [id number] [place] [address] [place] Chloride [Moles/Vol] 109 mmol/L High 97-105 [facility] Comment on above: Order Comment: Speci men Type: BLOOD SPECIMENOrdering Facility: [facility] Address: [address] [place] [address] Performed By: #### 2 777-1, , ####[facility] LABCLIA [id number] [place] [address] [place] CO2 [Moles/Vol] 25 mmol/L Normal 22-30 [facility] Comment on above: Order Comment: Speci men Type: BLOOD SPECIMENOrdering Facility: [facility] Address: [address] [place] [address] Performed By: #### 2 777-1, , ####[facility]CLIA [id number] [place] [address] [place] Creatinine [Mass/Vol] 1.45 mg/dL High 0.73-1.22 [facility] Comment on above: Order Comment: Speci men Type: BLOOD SPECIMENOrdering Facility: [facility] Address: [address] [place] [address] Performed By: #### 2 777-1, , ####[facility] LABCLIA [id number] [place] [address] [place] Creatinine and Glomerular filtration rate.predicted panel (S/P/Bld) 56 mL/min/1.73m??? Low >=60 [facility] Comment on above: Order Comment: Speci men Type: BLOOD SPECIMENOrdering Facility: [facility] Address: [address] [place] [address] Result Comment: Dayan mated Glomerular Filtration Rate (eGFR) is calculated using the 2020 CKD-EPI creatinine equation. This equation utilizes serum creatinine, sex, and age as parameters. The creatinine assay has traceable calibration to isotope dilution-mass spectrometry. Refer to KDIGO guidelines for clinical interpretation. In patients with unstable renal function, e.g. those with acute kidney injury, the eGFR may not accurately reflect actual GFR. Performed By: #### 2 777-1, , ####[facility] LABCLIA [id number] [place] [id number] [place] Glucose [Mass/Vol] 121 mg/dL High 74-99 [facility] Comment on above: Order Comment: Speci men Type: BLOOD SPECIMENOrdering Facility: [facility] Address: [address] [place] [address] Result Comment: The [place] Diabetes Association (ADA) provides guidance for cutoff values for fasting glucose and random glucose. The ADA defines fasting as no caloric intake for at least 8 hours. Fasting plasma glucose results between 100 to 125 mg/dL indicate increased risk for diabetes (prediabetes).Fasting plasma glucose results greater than or equal to 126 mg/dL meet the criteria for diagnosis of diabetes. In the absence of unequivocal hyperglycemia, results should be confirmed by repeat testing. In a patient with classic symptoms of hyperglycemia or hyperglycemic crisis, random plasma glucose results greater than or equal to 200 mg/dL meet the criteria for diagnosis of diabetes.Reference: Standards of Medical Care in Diabetes 2016, [place] [employer]. Diabetes Care. 2016.39(Suppl 1). Performed By: #### 2 777-1, , ####[facility] LABCLIA [id number] [place] [id number] [place] Potassium [Moles/Vol] 3.7 mmol/L Normal 3.7-5.1 [facility] Comment on above: Order Comment: Speci men Type: BLOOD SPECIMENOrdering Facility: [facility] Address: [address] [place] [address] Performed By: #### 2 777-1, , ####[facility] LABIA [id number] [place] [id number] [place] Protein [Mass/Vol] 5.0 g/dL Low 6.3-8.0 [facility] Comment on above: Order Comment: Speci men Type: BLOOD SPECIMENOrdering Facility: [facility] Address: [address] [place] [id number] Performed By: #### 2 777-1, , ####[facility] LABCLIA [id number] [address] [address] [place] Sodium [Moles/Vol] 141 mmol/L Normal 136-144 [facility] Comment on above: Order Comment: Speci men Type: BLOOD SPECIMENOrdering Facility: [facility] Address: [address] [place] [id number] Performed By: #### 2 777-1, , ####[facility] LABIA [id number] [place] [id number] [place] Urea nitrogen [Mass/Vol] 14 mg/dL Normal 9-24 [facility] Comment on above: Order Comment: Speci men Type: BLOOD SPECIMENOrdering Facility: [facility] Address: [address] [place] [id number] Performed By: #### 2 777-1, , ####[facility] LABIA [id number] [place] [id number] [place] Magnesium SerPl-mCncon 07-14 Magnesium [Mass/Vol] 1.9 mg/dL Normal 1.7-2.3 [facility] Comment on above: Order Comment: Speci men Type: BLOOD SPECIMENOrdering Facility: [facility] Address: [address] [place] [id number] Performed By: #### 2 777-1, , ####[facility] LABIA [id number] [place] [id number] [place] NUTRITIONon 07-14-2023 NUTRITION Normal [facility] PT panel Coag (PPP)on 2022 INR Coag (PPP) [Relative time] 1.0 {INR} Normal 0.9-1.3 [facility] Comment on above: Order Comment: Iesha marin Type: BLOOD SPECIMENOrdering Facility: [facility] Address: [address] [place] [address] Result Comment: Ella min K Antagonist (VKA) Therapeutic Range: INR 2 to 3 (Target INR of 2.5)Note: For patients treated with VKA drugs, such as warfarin, the [place] [employer] 2012 Guideline recommends a therapeutic INR range of 2 to 3 (target INR of 2.5). This recommendation includes high-risk patients with antiphospholipid syndrome with previous arterial or venous thromboembolism, current-generation mechanical or bioprosthetic aortic heart valve replacement.Note: Patients with mechanical aortic valve replacement and additional risk factors for thromboembolic events (atrial fibrillation, previous thromboembolism, LV dysfunction, hypercoagulable conditions) or an older generation mechanical AVR (i.e., ball in-Cage) or any mechanical MVR should have a INR therapeutic range of 2.5 to 3.5 (target INR of 3).Cee GH, et al. Chest 2012, 141:7S-47SNishimura RA, et al. [facility] 2017, 70: 252-289 Performed By: #### 1 4979-9, 45090-4 ####[facility] [id number] [place] [address] [place] PT Coag (PPP) [Time] 10.3 s Normal 9.7-13.0 [facility] Comment on above: Order Comment: Iesha marin Type: BLOOD SPECIMENOrdering Facility: [facility] Address: [address] [place] [address] Performed By: #### 1 4979-9, 66638-6 ####[facility] [id number] [place] [address] [place] Phosphate SerPl-mCncon 07-14 Phosphate [Mass/Vol] 2.3 mg/dL Low 2.7-4.8 [facility] Comment on above: Order Comment: Iesha marin Type: BLOOD SPECIMENOrdering Facility: [facility] Address: [address] [place], [place] [address] Performed By: #### 2 777-1, 73117-4, 14169-0 ####[facility] [id number] [place] [address] [place] THERAPY NTon 07-14-2023 THERAPY NT Normal [facility] THERAPY NT Normal [facility] Tacrolimus Bld-mCncon 2022 Tacrolimus (Bld) [Mass/Vol] 4.6 ng/mL Low 5.0-20.0 [facility] Comment on above: Order Comment: Speci men Type: BLOOD SPECIMENOrdering Facility: [facility] Address: [address] [place] [address] Result Comment: Nayely vidualized target levels for a given patient will depend on many factors (including the type of organ transplant, time since transplantation, concurrent medications, and other clinical factors), and should be assessed by those health care providers experienced in the management of immunosuppression. Reference ranges and high/low indicator flags are provided as general guidelines only. The treating physician must determine appropriate target levels/dosing based on the specific clinical situation. Test performed by chemiluminescent immunoassay using [employer] i. Performed By: #### 1 1253-2 ####[facility] [id number] [place] [address] [place] aPTT PPPon 07-14-2023 aPTT Coag (PPP) [Time] 24.8 s Normal 23.0-32.4 [facility] Comment on above: Order Comment: Speci men Type: BLOOD SPECIMENOrdering Facility: [facility] Address: [address] [place] [address] Performed By: #### 1 4979-9, 15561-1 ####[facility] [id number] [place] [address] [place] CBC W Auto Differential pane l (Bld)on 07-13-2023 Basophils (Bld) [#/Vol] 0.04 10*3/uL Normal <0.11 [facility] Comment on above: Order Comment: Speci men Type: BLOOD SPECIMENOrdering Facility: [facility] Address: [address] Performed By: #### 5 7021-8 ####[facility] LABCLIA [id number] [address] [place] Basophils/100 WBC (Bld) 0.7 % Normal [facility] Comment on above: Order Comment: Speci men Type: BLOOD SPECIMENOrdering Facility: [facility] Address: [address] [place] [address] Performed By: #### 5 7021-8 ####[facility] LABCLIA [id number] [place] [address] [place] Differential cell count method Nom (Bld) Auto Normal [facility] Comment on above: Order Comment: Speci men Type: BLOOD SPECIMENOrdering Facility: [facility] Address: [address] [place], [place] [address] Performed By: #### 5 7021-8 ####[facility] LABCLIA [id number] [place] [address] [place] Eosinophils (Bld) [#/Vol] 0.14 10*3/uL Normal <0.46 [facility] Comment on above: Order Comment: Speci men Type: BLOOD SPECIMENOrdering Facility: [facility] Address: [address] Performed By: #### 5 7021-8 ####[facility] LABCLIA [id number] [address] [place] Eosinophils/100 WBC (Bld) 2.5 % Normal [facility] Comment on above: Order Comment: Speci men Type: BLOOD SPECIMENOrdering Facility: [facility] Address: [address] Performed By: #### 5 7021-8 ####[facility] LABCLIA [id number] [address] [place] Erythrocyte distribution width (RBC) [Ratio] 16.8 % High 11.5-15.0 [facility] Comment on above: Order Comment: Speci men Type: BLOOD SPECIMENOrdering Facility: [facility] Address: [address] [place] [address] Performed By: #### 5 7021-8 ####[facility] LABIA [id number] [place] [address] [place] Hematocrit (Bld) [Volume fraction] 24.6 % Low 39.0-51.0 [facility] Comment on above: Order Comment: Speci men Type: BLOOD SPECIMENOrdering Facility: [facility] Address: [address] [place] [address] Performed By: #### 5 7021-8 ####[facility] LABIA [id number] [place] [address] [place] Hemoglobin (Bld) [Mass/Vol] 7.7 g/dL Low 13.0-17.0 [facility] Comment on above: Order Comment: Speci men Type: BLOOD SPECIMENOrdering Facility: [facility] Address: [address] [place] [address] Performed By: #### 5 7021-8 ####[facility] LABIA [id number] [place] [address] [place] Immature granulocytes (Bld) [#/Vol] 0.07 10*3/uL Normal <0.10 [facility] Comment on above: Order Comment: Speci men Type: BLOOD SPECIMENOrdering Facility: [facility] Address: [address] [place], [place] [address] Performed By: #### 5 7021-8 ####[facility] LABCLIA [id number] [address] [place] Immature granulocytes/100 WBC (Bld) 1.3 % Normal [facility] Comment on above: Order Comment: Speci men Type: BLOOD SPECIMENOrdering Facility: [facility] Address: [address] Performed By: #### 5 7021-8 ####[facility] LABCLIA [id number] [place] [address] [place] Lymphocytes (Bld) [#/Vol] 2.35 10*3/uL Normal 1.00-4.00 [facility] Comment on above: Order Comment: Speci men Type: BLOOD SPECIMENOrdering Facility: [facility] Address: [address] [place] [address] Performed By: #### 5 7021-8 ####[facility]CLIA [id number] [address] [place] Lymphocytes/100 WBC (Bld) 42.4 % Normal [facility] Comment on above: Order Comment: Speci men Type: BLOOD SPECIMENOrdering Facility: [facility] Address: [address] [place], [place] [address] Performed By: #### 5 7021-8 ####[facility]CLIA [id number] [place] [address] [place] MCH (RBC) [Entitic mass] 30.6 pg Normal 26.0-34.0 [facility] Comment on above: Order Comment: Speci men Type: BLOOD SPECIMENOrdering Facility: [facility] Address: [address] [place], [place] [address] Performed By: #### 5 7021-8 ####[facility] LABIA [id number] [place] [address] [place] MCHC (RBC) [Mass/Vol] 31.3 g/dL Normal 30.5-36.0 [facility] Comment on above: Order Comment: Speci men Type: BLOOD SPECIMENOrdering Facility: [facility] Address: [address] [place], [place] [address] Performed By: #### 5 7021-8 ####[facility] LABIA [id number] [place] [address] [place] MCV (RBC) [Entitic vol] 97.6 fL Normal 80.0-100.0 [facility] Comment on above: Order Comment: Speci men Type: BLOOD SPECIMENOrdering Facility: [facility] Address: [address] [place] [address] Performed By: #### 5 7021-8 ####[facility] LABIA [id number] [place] [address] [place] Monocytes (Bld) [#/Vol] 0.59 10*3/uL Normal <0.87 [facility] Comment on above: Order Comment: Speci men Type: BLOOD SPECIMENOrdering Facility: [facility] Address: [address] [place] [address] Performed By: #### 5 7021-8 ####[facility] LABIA [id number] [address] [place] Monocytes/100 WBC (Bld) 10.6 % Normal [facility] Comment on above: Order Comment: Speci men Type: BLOOD SPECIMENOrdering Facility: [facility] Address: [address] [place] [address] Performed By: #### 5 7021-8 ####[facility] LABIA [id number] [place] [address] [place] Neutrophils (Bld) [#/Vol] 2.35 10*3/uL Normal 1.45-7.50 [facility] Comment on above: Order Comment: Speci men Type: BLOOD SPECIMENOrdering Facility: [facility] Address: [address] [place] [address] Performed By: #### 5 7021-8 ####[facility] LABIA [id number] [place] [address] [place] Neutrophils/100 WBC (Bld) 42.5 % Normal [facility] Comment on above: Order Comment: Speci men Type: BLOOD SPECIMENOrdering Facility: [facility] Address: [address] [place] [address] Performed By: #### 5 7021-8 ####[facility] LABIA [id number] [place] [address] [place] Nucleated RBC (Bld) [#/Vol] 10*3/uL Normal <0.01 [facility] Comment on above: Order Comment: Speci men Type: BLOOD SPECIMENOrdering Facility: [facility] Address: [address] Performed By: #### 5 7021-8 ####[facility] LABIA [id number] [place] [address] [place] Nucleated RBC/100 WBC (Bld) [Ratio] 0.0 /100 WBC Normal [facility] Comment on above: Order Comment: Speci men Type: BLOOD SPECIMENOrdering Facility: [facility] Address: [address] [place], [place] [address] Performed By: #### 5 7021-8 ####[facility] LABIA [id number] [place] [address] [place] Platelet mean volume (Bld) [Entitic vol] 10.4 fL Normal 9.0-12.7 [facility] Comment on above: Order Comment: Speci men Type: BLOOD SPECIMENOrdering Facility: [facility] Address: [address] [place] [address] Performed By: #### 5 7021-8 ####[facility] LABIA [id number] [place] [address] [place] Platelets (Bld) [#/Vol] 250 10*3/uL Normal 150-400 [facility] Comment on above: Order Comment: Speci men Type: BLOOD SPECIMENOrdering Facility: [facility] Address: [address] [place], [place] [address] Performed By: #### 5 7021-8 ####[facility] LABCLIA [id number] [place] [address] [place] RBC (Bld) [#/Vol] 2.52 10*6/uL Low 4.20-6.00 [facility] Comment on above: Order Comment: Speci men Type: BLOOD SPECIMENOrdering Facility: [facility] Address: [address] Performed By: #### 5 7021-8 ####[facility]CLIA [id number] [place] [address] [place] WBC (Bld) [#/Vol] 5.54 10*3/uL Normal 3.70-11.00 [facility] Comment on above: Order Comment: Speci men Type: BLOOD SPECIMENOrdering Facility: [facility] Address: [address] Performed By: #### 5 7021-8 ####[facility]CLIA [id number] [place] [address] [place] Comprehensive metabolic 2000 panelon 07-13-2023 Albumin [Mass/Vol] 2.7 g/dL Low 3.9-4.9 [facility] Comment on above: Order Comment: Speci men Type: BLOOD SPECIMENOrdering Facility: [facility] Address: [address] Performed By: #### 2 4323-8, 45132-9, 2777-1 ####[facility] LABCLIA [id number] [place] [address] [place] ALP [Catalytic activity/Vol] 101 U/L Normal 38-113 [facility] Comment on above: Order Comment: Speci men Type: BLOOD SPECIMENOrdering Facility: [facility] Address: [address] Performed By: #### 2 4323-8, 10634-1, 2776-10 ####[facility]CLIA [id number] [place] [address] [place] ALT [Catalytic activity/Vol] 14 U/L Normal 10-54 [facility] Comment on above: Order Comment: Speci men Type: BLOOD SPECIMENOrdering Facility: [facility] Address: [address] [place] [address] Performed By: #### 2 4323-8, , 2776-10 ####[facility]CLIA [id number] [place] [address] [place] Anion gap [Moles/Vol] 9 mmol/L Normal 9-18 [facility] Comment on above: Order Comment: Speci men Type: BLOOD SPECIMENOrdering Facility: [facility] Address: [address] [place] [address] Performed By: #### 2 432-8, , 2776-10 ####[facility]CLIA [id number] [place] [address] [place] AST [Catalytic activity/Vol] 15 U/L Normal 14-40 [facility] Comment on above: Order Comment: Speci men Type: BLOOD SPECIMENOrdering Facility: [facility] Address: [address] [place] [address] Performed By: #### 2 4323-8, , 2776-10 ####[facility]CLIA [id number] [place] [address] [place] Bilirubin [Mass/Vol] 0.4 mg/dL Normal 0.2-1.3 [facility] Comment on above: Order Comment: Speci men Type: BLOOD SPECIMENOrdering Facility: [facility] Address: [address] [place] [address] Performed By: #### 2 4323-8, , 2776-10 ####[facility]CLIA [id number] [place] [address] [place] Calcium [Mass/Vol] 9.2 mg/dL Normal 8.5-10.2 [facility] Comment on above: Order Comment: Speci men Type: BLOOD SPECIMENOrdering Facility: [facility] Address: [address] [place] [address] Performed By: #### 2 4323-8, , 2776-10 ####[facility]CLIA [id number] [place] [address] [place] Chloride [Moles/Vol] 110 mmol/L High 97-105 [facility] Comment on above: Order Comment: Speci men Type: BLOOD SPECIMENOrdering Facility: [facility] Address: [address] [place] [address] Performed By: #### 2 4323-8, , 2776-10 ####[facility]CLIA [id number] [place] [address] [place] CO2 [Moles/Vol] 23 mmol/L Normal 22-30 [facility] Comment on above: Order Comment: Speci men Type: BLOOD SPECIMENOrdering Facility: [facility] Address: [address] [place] [address] Performed By: #### 2 4323-8, , 2776-10 ####[facility]CLIA [id number] [place] [address] [place] Creatinine [Mass/Vol] 1.48 mg/dL High 0.73-1.22 [facility] Comment on above: Order Comment: Speci men Type: BLOOD SPECIMENOrdering Facility: [facility] Address: [address] [place] [address] Performed By: #### 2 4323-8, , 2776-10 ####[facility]CLIA [id number] [address] [facility] Creatinine and Glomerular filtration rate.predicted panel (S/P/Bld) 55 mL/min/1.73m??? Low >=60 [facility] Comment on above: Order Comment: Iesha marin Type: BLOOD SPECIMENOrdering Facility: [facility] Address: [address] [place] [address] Result Comment: Dayan mated Glomerular Filtration Rate (eGFR) is calculated using the 2020 CKD-EPI creatinine equation. This equation utilizes serum creatinine, sex, and age as parameters. The creatinine assay has traceable calibration to isotope dilution-mass spectrometry. Refer to KDIGO guidelines for clinical interpretation. In patients with unstable renal function, e.g. those with acute kidney injury, the eGFR may not accurately reflect actual GFR. Performed By: #### 2 4323-8, 90052-3, 2776- ####[facility]CLIA [id number] [address] [place] [facility] Glucose [Mass/Vol] 99 mg/dL Normal 74-99 [facility] Comment on above: Order Comment: Iesha marin Type: BLOOD SPECIMENOrdering Facility: [facility] Address: [address] [place] [address] Result Comment: The [place] Diabetes [employer] (ADA) provides guidance for cutoff values for fasting glucose and random glucose. The ADA defines fasting as no caloric intake for at least 8 hours. Fasting plasma glucose results between 100 to 125 mg/dL indicate increased risk for diabetes (prediabetes).Fasting plasma glucose results greater than or equal to 126 mg/dL meet the criteria for diagnosis of diabetes. In the absence of unequivocal hyperglycemia, results should be confirmed by repeat testing. In a patient with classic symptoms of hyperglycemia or hyperglycemic crisis, random plasma glucose results greater than or equal to 200 mg/dL meet the criteria for diagnosis of diabetes.Reference: Standards of Medical Care in Diabetes 2016, [place] [employer]. Diabetes Care. 2016.39(Suppl 1). Performed By: #### 2 4323-8, 63988-5, 2777-1 ####[facility] LABCLIA [id number] [place] [id number] [place] Potassium [Moles/Vol] 3.7 mmol/L Normal 3.7-5.1 [facility] Comment on above: Order Comment: Speci men Type: BLOOD SPECIMENOrdering Facility: [facility] Address: [address] [place] [address] Performed By: #### 2 4323-8, , 2776-10 ####[facility] LABCLIA [id number] [place] [address] [place] Protein [Mass/Vol] 5.1 g/dL Low 6.3-8.0 [facility] Comment on above: Order Comment: Speci men Type: BLOOD SPECIMENOrdering Facility: [facility] Address: [address] [place] [address] Performed By: #### 2 4328, , 2776-10 ####[facility]CLIA [id number] [place] [address] [place] Sodium [Moles/Vol] 142 mmol/L Normal 136-144 [facility] Comment on above: Order Comment: Speci men Type: BLOOD SPECIMENOrdering Facility: [facility] Address: [address] [place] [address] Performed By: #### 2 432-8, , 2776-10 ####[facility]CLIA [id number] [place] [address] [place] Urea nitrogen [Mass/Vol] 18 mg/dL Normal 9-24 [facility] Comment on above: Order Comment: Speci men Type: BLOOD SPECIMENOrdering Facility: [facility] Address: [address] [place], [place] [address] Performed By: #### 2 432-8, , 2776-10 ####[facility] LABCLIA [id number] [place] [id number] [place] Magnesium SerPl-mCncon 07-13 Magnesium [Mass/Vol] 2.0 mg/dL Normal 1.7-2.3 [facility] Comment on above: Order Comment: Speci tania Type: BLOOD SPECIMENOrdering Facility: [facility] Address: [address] [place] [address] Performed By: #### 2 4323-8, 46822-3, 2777-1 ####[facility]CLIA [id number] [place] [address] [place] PT panel Coag (PPP)on 2022 INR Coag (PPP) [Relative time] 1.0 {INR} Normal 0.9-1.3 [facility] Comment on above: Order Comment: Specjose luis marin Type: BLOOD SPECIMENOrdering Facility: [facility] Address: [address] [place] [address] Result Comment: Elal min K Antagonist (VKA) Therapeutic Range: INR 2 to 3 (Target INR of 2.5)Note: For patients treated with VKA drugs, such as warfarin, the [place] [employer] 2012 Guideline recommends a therapeutic INR range of 2 to 3 (target INR of 2.5). This recommendation includes high-risk patients with antiphospholipid syndrome with previous arterial or venous thromboembolism, current-generation mechanical or bioprosthetic aortic heart valve replacement.Note: Patients with mechanical aortic valve replacement and additional risk factors for thromboembolic events (atrial fibrillation, previous thromboembolism, LV dysfunction, hypercoagulable conditions) or an older generation mechanical AVR (i.e., ball in-Cage) or any mechanical MVR should have a INR therapeutic range of 2.5 to 3.5 (target INR of 3).Cee GH, et al. Chest 2012, 141:7S-47SNishimura RA, et al. [facility] 2017, 70: 252-289 Performed By: #### 3 4528-0, 92859-4 ####[facility]CLIA [id number] [place] [address] [place] PT Coag (PPP) [Time] 10.2 s Normal 9.7-13.0 [facility] Comment on above: Order Comment: Iesha marin Type: BLOOD SPECIMENOrdering Facility: [facility] Address: [address] [place] [address] Performed By: #### 3 4528-0, 98005-3 ####[facility]CLIA [id number] [place] [address] [place] Phosphate SerPl-ncon 07-13 Phosphate [Mass/Vol] 2.4 mg/dL Low 2.7-4.8 [facility] Comment on above: Order Comment: Iesha marin Type: BLOOD SPECIMENOrdering Facility: [facility] Address: [address] [place] [address] Performed By: #### 2 4323-8, 88534-0, 2777-1 ####[facility]CLIA [id number] [address] [place] THERAPY NTon 07-13-2023 THERAPY NT Normal [facility] Tacrolimus Bld-ncon 2022 Tacrolimus (Bld) [Mass/Vol] 4.0 ng/mL Low 5.0-20.0 [facility] Comment on above: Order Comment: Iesha marin Type: BLOOD SPECIMENOrdering Facility: [facility] Address: [address] [place] [address] Result Comment: Nayely vidualized target levels for a given patient will depend on many factors (including the type of organ transplant, time since transplantation, concurrent medications, and other clinical factors), and should be assessed by those health care providers experienced in the management of immunosuppression. Reference ranges and high/low indicator flags are provided as general guidelines only. The treating physician must determine appropriate target levels/dosing based on the specific clinical situation. Test performed by chemiluminescent immunoassay using Cumulux Alinity i. Performed By: #### 1 1253-2 ####[facility]CLIA [id number] [place] [address] [place] aPTT PPPon 10-04-2023 aPTT Coag (PPP) [Time] 25.9 s Normal 23.0-32.4 [facility] Comment on above: Order Comment: Speci men Type: BLOOD SPECIMENOrdering Facility: [facility] Address: [address] [place] [address] Performed By: #### 3 4528-0, 52383-3 ####[facility]CLIA [id number] [place] [address] [place] CBC W Auto Differential pane l (Bld)on 07-12-2023 Basophils (Bld) [#/Vol] 0.04 10*3/uL Normal <0.11 [facility] Comment on above: Order Comment: Speci men Type: BLOOD SPECIMENOrdering Facility: [facility] Address: [address] [place] [address] Performed By: #### 5 7021-8 ####[facility] LABCLIA [id number] [place] [address] [place] Basophils/100 WBC (Bld) 0.7 % Normal [facility] Comment on above: Order Comment: Speci men Type: BLOOD SPECIMENOrdering Facility: [facility] Address: [address] [place] [address] Performed By: #### 5 7021-8 ####[facility]CLIA [id number] [place] [address] [place] Differential cell count method Nom (Bld) Auto Normal [facility] Comment on above: Order Comment: Speci men Type: BLOOD SPECIMENOrdering Facility: [facility] Address: [address] [place] [address] Performed By: #### 5 7021-8 ####[facility]CLIA [id number] [place] [address] [place] Eosinophils (Bld) [#/Vol] 0.13 10*3/uL Normal <0.46 [facility] Comment on above: Order Comment: Speci men Type: BLOOD SPECIMENOrdering Facility: [facility] Address: [address] Performed By: #### 5 7021-8 ####[facility]CLIA [id number] [place] [address] [place] Eosinophils/100 WBC (Bld) 2.3 % Normal [facility] Comment on above: Order Comment: Speci men Type: BLOOD SPECIMENOrdering Facility: [facility] Address: [address] [place] [address] Performed By: #### 5 7021-8 ####[facility]CLIA [id number] [place] [address] [place] Erythrocyte distribution width (RBC) [Ratio] 17.3 % High 11.5-15.0 [facility] Comment on above: Order Comment: Speci men Type: BLOOD SPECIMENOrdering Facility: [facility] Address: [address] [place], [place] [address] Performed By: #### 5 7021-8 ####[facility] LABCLIA [id number] [place] [address] [place] Hematocrit (Bld) [Volume fraction] 22.9 % Low 39.0-51.0 [facility] Comment on above: Order Comment: Speci men Type: BLOOD SPECIMENOrdering Facility: [facility] Address: [address] [place], [place] [address] Performed By: #### 5 7021-8 ####[facility]CLIA [id number] [place] [address] [place] Hemoglobin (Bld) [Mass/Vol] 7.1 g/dL Low 13.0-17.0 [facility] Comment on above: Order Comment: Speci men Type: BLOOD SPECIMENOrdering Facility: [facility] Address: [address] [place], [place] [address] Performed By: #### 5 7021-8 ####[facility]CLIA [id number] [place] [address] [place] Immature granulocytes (Bld) [#/Vol] 0.04 10*3/uL Normal <0.10 [facility] Comment on above: Order Comment: Speci men Type: BLOOD SPECIMENOrdering Facility: [facility] Address: [address] [place] [address] Performed By: #### 5 7021-8 ####[facility] LABCLIA [id number] [address] [place] Immature granulocytes/100 WBC (Bld) 0.7 % Normal [facility] Comment on above: Order Comment: Speci men Type: BLOOD SPECIMENOrdering Facility: [facility] Address: [address] [place] [address] Performed By: #### 5 7021-8 ####[facility] LABCLIA [id number] [place] [address] [place] Lymphocytes (Bld) [#/Vol] 2.03 10*3/uL Normal 1.00-4.00 [facility] Comment on above: Order Comment: Speci men Type: BLOOD SPECIMENOrdering Facility: [facility] Address: [address] [place], [place] [address] Performed By: #### 5 7021-8 ####[facility] LABCLIA [id number] [place] [address] [place] Lymphocytes/100 WBC (Bld) 35.9 % Normal [facility] Comment on above: Order Comment: Speci men Type: BLOOD SPECIMENOrdering Facility: [facility] Address: [address] [place], [place] [address] Performed By: #### 5 7021-8 ####[facility] LABCLIA [id number] [place] [address] [place] MCH (RBC) [Entitic mass] 30.6 pg Normal 26.0-34.0 [facility] Comment on above: Order Comment: Speci men Type: BLOOD SPECIMENOrdering Facility: [facility] Address: [address] Performed By: #### 5 7021-8 ####[facility] LABIA [id number] [place] [address] [place] MCHC (RBC) [Mass/Vol] 31.0 g/dL Normal 30.5-36.0 [facility] Comment on above: Order Comment: Speci men Type: BLOOD SPECIMENOrdering Facility: [facility] Address: [address] Performed By: #### 5 7021-8 ####[facility] LABIA [id number] [place] [address] [place] MCV (RBC) [Entitic vol] 98.7 fL Normal 80.0-100.0 [facility] Comment on above: Order Comment: Speci men Type: BLOOD SPECIMENOrdering Facility: [facility] Address: [address] Performed By: #### 5 7021-8 ####[facility] LABIA [id number] [place] [address] [place] Monocytes (Bld) [#/Vol] 0.49 10*3/uL Normal <0.87 [facility] Comment on above: Order Comment: Speci men Type: BLOOD SPECIMENOrdering Facility: [facility] Address: [address] Performed By: #### 5 7021-8 ####[facility] LABIA [id number] [address] [place] Monocytes/100 WBC (Bld) 8.7 % Normal [facility] Comment on above: Order Comment: Speci men Type: BLOOD SPECIMENOrdering Facility: [facility] Address: [address] Performed By: #### 5 7021-8 ####[facility]CLIA [id number] [place] [address] [place] Neutrophils (Bld) [#/Vol] 2.92 10*3/uL Normal 1.45-7.50 [facility] Comment on above: Order Comment: Speci men Type: BLOOD SPECIMENOrdering Facility: [facility] Address: [address] [place] [address] Performed By: #### 5 7021-8 ####[facility] LABCLIA [id number] [place] [address] [place] Neutrophils/100 WBC (Bld) 51.7 % Normal [facility] Comment on above: Order Comment: Speci men Type: BLOOD SPECIMENOrdering Facility: [facility] Address: [address] [place] [address] Performed By: #### 5 7021-8 ####[facility] LABCLIA [id number] [place] [address] [place] Nucleated RBC (Bld) [#/Vol] 10*3/uL Normal <0.01 [facility] Comment on above: Order Comment: Speci men Type: BLOOD SPECIMENOrdering Facility: [facility] Address: [address] [place], [place] [address] Performed By: #### 5 7021-8 ####[facility] LABCLIA [id number] [place] [address] [place] Nucleated RBC/100 WBC (Bld) [Ratio] 0.0 /100 WBC Normal [facility] Comment on above: Order Comment: Speci men Type: BLOOD SPECIMENOrdering Facility: [facility] Address: [address] [place], [place] [address] Performed By: #### 5 7021-8 ####[facility] LABCLIA [id number] [place] [address] [place] Platelet mean volume (Bld) [Entitic vol] 9.6 fL Normal 9.0-12.7 [facility] Comment on above: Order Comment: Speci men Type: BLOOD SPECIMENOrdering Facility: [facility] Address: [address] [place], [place] [address] Performed By: #### 5 7021-8 ####[facility] LABCLIA [id number] [place] [address] [place] Platelets (Bld) [#/Vol] 218 10*3/uL Normal 150-400 [facility] Comment on above: Order Comment: Speci men Type: BLOOD SPECIMENOrdering Facility: [facility] Address: [address] [place], [place] [address] Performed By: #### 5 7021-8 ####[facility] LABIA [id number] [place] [address] [place] RBC (Bld) [#/Vol] 2.32 10*6/uL Low 4.20-6.00 [facility] Comment on above: Order Comment: Speci men Type: BLOOD SPECIMENOrdering Facility: [facility] Address: [address] [place], [place] [address] Performed By: #### 5 7021-8 ####[facility] LABIA [id number] [place] [address] [place] WBC (Bld) [#/Vol] 5.65 10*3/uL Normal 3.70-11.00 [facility] Comment on above: Order Comment: Speci men Type: BLOOD SPECIMENOrdering Facility: [facility] Address: [address] [place], [place] [address] Performed By: #### 5 7021-8 ####[facility] LABIA [id number] [place] [address] [place] CBC panel Auto (Bld)on 07-12 Erythrocyte distribution width (RBC) [Ratio] 17.0 % High 11.5-15.0 [facility] Comment on above: Order Comment: Speci men Type: BLOOD SPECIMENOrdering Facility: [facility] Address: [address] Performed By: #### 5 8410-2 ####[facility] LABCLIA [id number] [address] [place] Hematocrit (Bld) [Volume fraction] 24.9 % Low 39.0-51.0 [facility] Comment on above: Order Comment: Speci men Type: BLOOD SPECIMENOrdering Facility: [facility] Address: [address] [place] [address] Performed By: #### 5 8410-2 ####[facility] LABIA [id number] [address] [place] Hemoglobin (Bld) [Mass/Vol] 7.9 g/dL Low 13.0-17.0 [facility] Comment on above: Order Comment: Speci men Type: BLOOD SPECIMENOrdering Facility: [facility] Address: [address] [place] [address] Performed By: #### 5 8410-2 ####[facility] LABIA [id number] [address] [place] MCH (RBC) [Entitic mass] 30.9 pg Normal 26.0-34.0 [facility] Comment on above: Order Comment: Speci men Type: BLOOD SPECIMENOrdering Facility: [facility] Address: [address] Performed By: #### 5 8410-2 ####[facility] LABIA [id number] [address] [place] MCHC (RBC) [Mass/Vol] 31.7 g/dL Normal 30.5-36.0 [facility] Comment on above: Order Comment: Speci men Type: BLOOD SPECIMENOrdering Facility: [facility] Address: [address] [place] [address] Performed By: #### 5 8410-2 ####[facility]CLIA [id number] [place] [address] [place] MCV (RBC) [Entitic vol] 97.3 fL Normal 80.0-100.0 [facility] Comment on above: Order Comment: Speci men Type: BLOOD SPECIMENOrdering Facility: [facility] Address: [address] Performed By: #### 5 8410-2 ####[facility] LABIA [id number] [place] [address] [place] Nucleated RBC (Bld) [#/Vol] 10*3/uL Normal <0.01 [facility] Comment on above: Order Comment: Speci men Type: BLOOD SPECIMENOrdering Facility: [facility] Address: [address] Performed By: #### 5 8410-2 ####[facility] LABIA [id number] [place] [address] [place] Platelet mean volume (Bld) [Entitic vol] 9.2 fL Normal 9.0-12.7 [facility] Comment on above: Order Comment: Speci men Type: BLOOD SPECIMENOrdering Facility: [facility] Address: [address] [place] [address] Performed By: #### 5 8410-2 ####[facility] LABIA [id number] [place] [address] [place] Platelets (Bld) [#/Vol] 239 10*3/uL Normal 150-400 [facility] Comment on above: Order Comment: Speci men Type: BLOOD SPECIMENOrdering Facility: [facility] Address: [address] [place] [address] Performed By: #### 5 8410-2 ####[facility] LABCLIA [id number] [place] [address] [place] RBC (Bld) [#/Vol] 2.56 10*6/uL Low 4.20-6.00 [facility] Comment on above: Order Comment: Speci men Type: BLOOD SPECIMENOrdering Facility: [facility] Address: [address] [place] [address] Performed By: #### 5 8410-2 ####[facility] LABCLIA [id number] [address] [place] WBC (Bld) [#/Vol] 5.45 10*3/uL Normal 3.70-11.00 [facility] Comment on above: Order Comment: Speci men Type: BLOOD SPECIMENOrdering Facility: [facility] Address: [address] [place] [address] Performed By: #### 5 8410-2 ####[facility]CLIA [id number] [place] [address] [place] [facility] [place] Comprehensive metabolic 2000 panelon 07-12-2023 Albumin [Mass/Vol] 2.5 g/dL Low 3.9-4.9 [facility] Comment on above: Order Comment: Speci men Type: BLOOD SPECIMENOrdering Facility: [facility] Address: [address] [place] [address] Performed By: #### 1 9123-9, 2777-1, 17147-7 ####[facility] LABCLIA [id number] [place] [address] [place] ALP [Catalytic activity/Vol] 93 U/L Normal 38-113 [facility] Comment on above: Order Comment: Speci men Type: BLOOD SPECIMENOrdering Facility: [facility] Address: [address] [place] [address] Performed By: #### 1 9123-9, 2777-1, 12614-1 ####[facility] LABCLIA [id number] [address] [place] ALT [Catalytic activity/Vol] 17 U/L Normal 10-54 [facility] Comment on above: Order Comment: Speci men Type: BLOOD SPECIMENOrdering Facility: [facility] Address: [address] [place] [address] Performed By: #### 1 9123-9, 277-1, 98040-6 ####[facility] LABCLIA [id number] [place] [address] [place] Anion gap [Moles/Vol] 8 mmol/L Low 9-18 [facility] Comment on above: Order Comment: Speci men Type: BLOOD SPECIMENOrdering Facility: [facility] Address: [address] [place] [address] Performed By: #### 1 9123-9, 27704-09, 56298-6 ####[facility] LABCLIA [id number] [address] [place] AST [Catalytic activity/Vol] 13 U/L Low 14-40 [facility] Comment on above: Order Comment: Speci men Type: BLOOD SPECIMENOrdering Facility: [facility] Address: [address] [place] [address] Performed By: #### 1 9123-9, 27704-09, 87335-1 ####[facility] LABCLIA [id number] [place] [address] [place] Bilirubin [Mass/Vol] 0.3 mg/dL Normal 0.2-1.3 [facility] Comment on above: Order Comment: Speci men Type: BLOOD SPECIMENOrdering Facility: [facility] Address: [address] [place] [address] Performed By: #### 1 9123-9, 27704-09, 41674-8 ####[facility] LABCLIA [id number] [place] [address] [place] Calcium [Mass/Vol] 8.9 mg/dL Normal 8.5-10.2 [facility] Comment on above: Order Comment: Speci men Type: BLOOD SPECIMENOrdering Facility: [facility] Address: [address] [place], [place] [address] Performed By: #### 1 9123-9, 2776-10, ####[facility] LABCLIA [id number] [place] [address] [place] Chloride [Moles/Vol] 110 mmol/L High 97-105 [facility] Comment on above: Order Comment: Speci men Type: BLOOD SPECIMENOrdering Facility: [facility] Address: [address] [place], [place] [address] Performed By: #### 1 9123-9, 2776-10, ####[facility] LABCLIA [id number] [place] [address] [place] CO2 [Moles/Vol] 22 mmol/L Normal 22-30 [facility] Comment on above: Order Comment: Speci men Type: BLOOD SPECIMENOrdering Facility: [facility] Address: [address] [place], [place] [address] Performed By: #### 1 9123-9, 2776-10, ####[facility]CLIA [id number] [place] [address] [place] Creatinine [Mass/Vol] 1.53 mg/dL High 0.73-1.22 [facility] Comment on above: Order Comment: Speci men Type: BLOOD SPECIMENOrdering Facility: [facility] Address: [address] [place], [place] [address] Performed By: #### 1 9123-9, 2776-10, ####[facility] LABCLIA [id number] [place] [address] [place] Creatinine and Glomerular filtration rate.predicted panel (S/P/Bld) 53 mL/min/1.73m??? Low >=60 [facility] Comment on above: Order Comment: Iesha marin Type: BLOOD SPECIMENOrdering Facility: [facility] Address: [place] [address] Result Comment: Dayan mated Glomerular Filtration Rate (eGFR) is calculated using the 2020 CKD-EPI creatinine equation. This equation utilizes serum creatinine, sex, and age as parameters. The creatinine assay has traceable calibration to isotope dilution-mass spectrometry. Refer to KDIGO guidelines for clinical interpretation. In patients with unstable renal function, e.g. those with acute kidney injury, the eGFR may not accurately reflect actual GFR. Performed By: #### 1 9123-9, 2777-, 25421-6 ####[facility] LABIA [id number] [place] [address] [place] Glucose [Mass/Vol] 128 mg/dL High 74-99 [facility] Comment on above: Order Comment: Iesha marin Type: BLOOD SPECIMENOrdering Facility: [facility] Address: [facility] [address]Watson [address] Result Comment: The [place] [employer] (ADA) provides guidance for cutoff values for fasting glucose and random glucose. The ADA defines fasting as no caloric intake for at least 8 hours. Fasting plasma glucose results between 100 to 125 mg/dL indicate increased risk for diabetes (prediabetes).Fasting plasma glucose results greater than or equal to 126 mg/dL meet the criteria for diagnosis of diabetes. In the absence of unequivocal hyperglycemia, results should be confirmed by repeat testing. In a patient with classic symptoms of hyperglycemia or hyperglycemic crisis, random plasma glucose results greater than or equal to 200 mg/dL meet the criteria for diagnosis of diabetes.Reference: Standards of Medical Care in Diabetes 2016, [place] [employer]. Diabetes Care. 2016.39(Suppl 1). Performed By: #### 1 9123-9, 2777-, 74115-3 ####[facility] LABIA [id number] [place] [address] [place] Potassium [Moles/Vol] 3.9 mmol/L Normal 3.7-5.1 [facility] Comment on above: Order Comment: Speci men Type: BLOOD SPECIMENOrdering Facility: [facility] Address: [address] [place] [address] Performed By: #### 1 9123-9, 27704-09, ####[facility]CLIA [id number] [place] [address] [place] Protein [Mass/Vol] 5.0 g/dL Low 6.3-8.0 [facility] Comment on above: Order Comment: Speci men Type: BLOOD SPECIMENOrdering Facility: [facility] Address: [address] [place] [address] Performed By: #### 1 9123-9, 27704-09, ####[facility]CLIA [id number] [place] [place] [address] [place] Sodium [Moles/Vol] 140 mmol/L Normal 136-144 [facility] Comment on above: Order Comment: Speci men Type: BLOOD SPECIMENOrdering Facility: [facility] Address: [address] [place] [address] Performed By: #### 1 9123-9, 2776-10, ####[facility] LABCLIA [id number] [place] [address] [place] Urea nitrogen [Mass/Vol] 21 mg/dL Normal 9-24 [facility] Comment on above: Order Comment: Speci men Type: BLOOD SPECIMENOrdering Facility: [facility] Address: [address] Performed By: #### 1 9123-9, 27704-09, 18603-0 ####[facility] LABCLIA [id number] [place] [address] [place] Magnesium SerPl-mCncon 07-12 Magnesium [Mass/Vol] 1.8 mg/dL Normal 1.7-2.3 [facility] Comment on above: Order Comment: Speci men Type: BLOOD SPECIMENOrdering Facility: [facility] Address: [address] [place], [place] [address] Performed By: #### 1 9123-9, 2777-1, 10666-7 ####[facility] LABCLIA [id number] [place] [address] [place] NUTRITIONon 07-12-2023 NUTRITION Normal [facility] PT panel Coag (PPP)on 2022 INR Coag (PPP) [Relative time] 1.0 {INR} Normal 0.9-1.3 [facility] Comment on above: Order Comment: Iesha marin Type: BLOOD SPECIMENOrdering Facility: [facility] Address: [address] [place] [address] Result Comment: Ella min K Antagonist (VKA) Therapeutic Range: INR 2 to 3 (Target INR of 2.5)Note: For patients treated with VKA drugs, such as warfarin, the [place] [employer] 2012 Guideline recommends a therapeutic INR range of 2 to 3 (target INR of 2.5). This recommendation includes high-risk patients with antiphospholipid syndrome with previous arterial or venous thromboembolism, current-generation mechanical or bioprosthetic aortic heart valve replacement.Note: Patients with mechanical aortic valve replacement and additional risk factors for thromboembolic events (atrial fibrillation, previous thromboembolism, LV dysfunction, hypercoagulable conditions) or an older generation mechanical AVR (i.e., ball in-Cage) or any mechanical MVR should have a INR therapeutic range of 2.5 to 3.5 (target INR of 3).Cee GH, et al. Chest 2012, 141:7S-47SNishimesequiel RA, et al. [facility] 2017, 70: 252-289 Performed By: #### 3 4528-0, 18820-3 ####[facility] LABCLIA [id number] [place] [address] [place] PT Coag (PPP) [Time] 9.9 s Normal 9.7-13.0 [facility] Comment on above: Order Comment: Iesha marin Type: BLOOD SPECIMENOrdering Facility: [facility] Address: [address] [place] [place] [address] Performed By: #### 3 4528-0, 58028-4 ####[facility] LABIA [id number] [place] [address] [place] Phosphate SerPl-ncon 07-12 Phosphate [Mass/Vol] 2.6 mg/dL Low 2.7-4.8 [facility] Comment on above: Order Comment: Speci men Type: BLOOD SPECIMENOrdering Facility: [facility] Address: [address] [place] [address] Performed By: #### 1 9123-9, 2777-1, 04635-4 ####[facility] LABIA [id number] [address] [place] THERAPY NTon 07-12-2023 THERAPY NT Normal [facility] Tacrolimus Bld-ncon 2022 Tacrolimus (Bld) [Mass/Vol] 4.7 ng/mL Low 5.0-20.0 [facility] Comment on above: Order Comment: Iesha marin Type: BLOOD SPECIMENOrdering Facility: [facility] Address: [address] [place] [address] Result Comment: Nayely vidualized target levels for a given patient will depend on many factors (including the type of organ transplant, time since transplantation, concurrent medications, and other clinical factors), and should be assessed by those health care providers experienced in the management of immunosuppression. Reference ranges and high/low indicator flags are provided as general guidelines only. The treating physician must determine appropriate target levels/dosing based on the specific clinical situation. Test performed by chemiluminescent immunoassay using Cumulux Alinity i. Performed By: #### 1 1253-2 ####[facility] LABIA [id number] [place] [address] [place] XR ABDOMEN 1V SUPINEon 07-12 XR ABDOMEN 1V SUPINE Normal [facility] aPTT PPPon 07-12-2023 aPTT Coag (PPP) [Time] 26.8 s Normal 23.0-32.4 [facility] Comment on above: Order Comment: Speci men Type: BLOOD SPECIMENOrdering Facility: [facility] Address: [address] [place] [address] Performed By: #### 3 4528-0, 77894-3 ####[facility] LABCLIA [id number] [place] [address] [place] ALLIED HEALTHon 07-11-2023 ALLIED HEALTH Normal [facility] CASE MANAGEMon 07-11-2023 CASE MANAGEM Normal [facility] CBC W Auto Differential pane l (Bld)on 07-11-2023 Basophils (Bld) [#/Vol] 0.05 10*3/uL Normal <0.11 [facility] Comment on above: Order Comment: Speci men Type: BLOOD SPECIMENOrdering Facility: [facility] Address: [address] [place] [address] Performed By: #### 5 7021-8 ####[facility] LABCLIA [id number] [place] [address] [place] Basophils/100 WBC (Bld) 0.7 % Normal [facility] Comment on above: Order Comment: Speci men Type: BLOOD SPECIMENOrdering Facility: [facility] Address: [address] [place] [address] Performed By: #### 5 7021-8 ####[facility] LABCLIA [id number] [place] [address] [place] Differential cell count method Nom (Bld) Auto Normal [facility] Comment on above: Order Comment: Speci men Type: BLOOD SPECIMENOrdering Facility: [facility] Address: [address] [place] [address] Performed By: #### 5 7021-8 ####[facility] LABCLIA [id number] [place] [address] [place] Eosinophils (Bld) [#/Vol] 0.17 10*3/uL Normal <0.46 [facility] Comment on above: Order Comment: Speci men Type: BLOOD SPECIMENOrdering Facility: [facility] Address: [address] Performed By: #### 5 7021-8 ####[facility] LABCLIA [id number] [place] [address] [place] [facility] Eosinophils/100 WBC (Bld) 2.4 % Normal [facility] Comment on above: Order Comment: Speci men Type: BLOOD SPECIMENOrdering Facility: [facility] Address: [address] [place] [address] Performed By: #### 5 7021-8 ####[facility] LABIA [id number] [place] [address] [place] Erythrocyte distribution width (RBC) [Ratio] 18.0 % High 11.5-15.0 [facility] Comment on above: Order Comment: Speci men Type: BLOOD SPECIMENOrdering Facility: [facility] Address: [address] [place], [place] [address] Performed By: #### 5 7021-8 ####[facility] LABIA [id number] [address] [place] Hematocrit (Bld) [Volume fraction] 24.3 % Low 39.0-51.0 [facility] Comment on above: Order Comment: Speci men Type: BLOOD SPECIMENOrdering Facility: [facility] Address: [address] [place], [place] [address] Performed By: #### 5 7021-8 ####[facility] LABIA [id number] [place] [address] [place] Hemoglobin (Bld) [Mass/Vol] 7.6 g/dL Low 13.0-17.0 [facility] Comment on above: Order Comment: Speci men Type: BLOOD SPECIMENOrdering Facility: [facility] Address: [address] [place] [address] Performed By: #### 5 7021-8 ####[facility] LABCLIA [id number] [place] [address] [place] Immature granulocytes (Bld) [#/Vol] 0.08 10*3/uL Normal <0.10 [facility] Comment on above: Order Comment: Speci men Type: BLOOD SPECIMENOrdering Facility: [facility] Address: [address] Performed By: #### 5 7021-8 ####[facility] LABCLIA [id number] [address] [place] Immature granulocytes/100 WBC (Bld) 1.1 % Normal [facility] Comment on above: Order Comment: Speci men Type: BLOOD SPECIMENOrdering Facility: [facility] Address: [address] Performed By: #### 5 7021-8 ####[facility] LABCLIA [id number] [place] [address] [place] Lymphocytes (Bld) [#/Vol] 2.31 10*3/uL Normal 1.00-4.00 [facility] Comment on above: Order Comment: Speci men Type: BLOOD SPECIMENOrdering Facility: [facility] Address: [address] [place] [address] Performed By: #### 5 7021-8 ####[facility] LABCLIA [id number] [place] [address] [place] Lymphocytes/100 WBC (Bld) 32.5 % Normal [facility] Comment on above: Order Comment: Speci men Type: BLOOD SPECIMENOrdering Facility: [facility] Address: [address] [place] [address] Performed By: #### 5 7021-8 ####[facility] LABCLIA [id number] [address] MCH (RBC) [Entitic mass] 30.9 pg Normal 26.0-34.0 [facility] Comment on above: Order Comment: Speci men Type: BLOOD SPECIMENOrdering Facility: [facility] Address: [address] [place] [address] Performed By: #### 5 7021-8 ####[facility] LABCLIA [id number] [address] [place] [facility] MCHC (RBC) [Mass/Vol] 31.3 g/dL Normal 30.5-36.0 [facility] Comment on above: Order Comment: Speci men Type: BLOOD SPECIMENOrdering Facility: [facility] Address: [address] [place] [address] Performed By: #### 5 7021-8 ####[facility] LABCLIA [id number] [address] [place] OF [facility] MCV (RBC) [Entitic vol] 98.8 fL Normal 80.0-100.0 [facility] Comment on above: Order Comment: Speci men Type: BLOOD SPECIMENOrdering Facility: [facility] Address: [address] [place], [place] [address] Performed By: #### 5 7021-8 ####[facility] LABIA [id number] [address] [place] Monocytes (Bld) [#/Vol] 0.59 10*3/uL Normal <0.87 [facility] Comment on above: Order Comment: Speci men Type: BLOOD SPECIMENOrdering Facility: [facility] Address: [address] [place], [place] [address] Performed By: #### 5 7021-8 ####[facility] LABCLIA [id number] [address] [place] Monocytes/100 WBC (Bld) 8.3 % Normal [facility] Comment on above: Order Comment: Speci men Type: BLOOD SPECIMENOrdering Facility: [facility] Address: [address] Performed By: #### 5 7021-8 ####[facility] LABCLIA [id number] [place] [address] [place] Neutrophils (Bld) [#/Vol] 3.90 10*3/uL Normal 1.45-7.50 [facility] Comment on above: Order Comment: Speci men Type: BLOOD SPECIMENOrdering Facility: [facility] Address: [address] Performed By: #### 5 7021-8 ####[facility] LABCLIA [id number] [place] [address] [place] Neutrophils/100 WBC (Bld) 55.0 % Normal [facility] Comment on above: Order Comment: Speci men Type: BLOOD SPECIMENOrdering Facility: [facility] Address: [address] Performed By: #### 5 7021-8 ####[facility] LABCLIA [id number] [place] [address] [place] Nucleated RBC (Bld) [#/Vol] 10*3/uL Normal <0.01 [facility] Comment on above: Order Comment: Speci men Type: BLOOD SPECIMENOrdering Facility: [facility] Address: [address] Performed By: #### 5 7021-8 ####[facility] LABCLIA [id number] [place] [address] [place] Nucleated RBC/100 WBC (Bld) [Ratio] 0.0 /100 WBC Normal [facility] Comment on above: Order Comment: Speci men Type: BLOOD SPECIMENOrdering Facility: [facility] Address: [address] Performed By: #### 5 7021-8 ####[facility] LABCLIA [id number] [place] [address] [place] Platelet mean volume (Bld) [Entitic vol] 9.5 fL Normal 9.0-12.7 [facility] Comment on above: Order Comment: Speci men Type: BLOOD SPECIMENOrdering Facility: [facility] Address: [address] [place] [address] Performed By: #### 5 7021-8 ####[facility] LABIA [id number] [place] [address] [place] Platelets (Bld) [#/Vol] 209 10*3/uL Normal 150-400 [facility] Comment on above: Order Comment: Speci men Type: BLOOD SPECIMENOrdering Facility: [facility] Address: [address] [place] [address] Performed By: #### 5 7021-8 ####[facility] LABIA [id number] [place] [address] [place] RBC (Bld) [#/Vol] 2.46 10*6/uL Low 4.20-6.00 [facility] Comment on above: Order Comment: Speci men Type: BLOOD SPECIMENOrdering Facility: [facility] Address: [address] [place], [place] [address] Performed By: #### 5 7021-8 ####[facility] LABIA [id number] [place] [address] [place] WBC (Bld) [#/Vol] 7.10 10*3/uL Normal 3.70-11.00 [facility] Comment on above: Order Comment: Speci men Type: BLOOD SPECIMENOrdering Facility: [facility] Address: [address] [place], [place] [address] Performed By: #### 5 7021-8 ####[facility] LABIA [id number] [place] [address] [place] BRAIN WO IVCONon 10-02-[address] BRAIN WO IVCON Normal [facility] Comprehensive metabolic 2000 panelon 07-11-2023 Albumin [Mass/Vol] 2.6 g/dL Low 3.9-4.9 [facility] Comment on above: Order Comment: Speci men Type: BLOOD SPECIMENOrdering Facility: [facility] Address: [address] [address] Performed By: #### 2 4323-8, , 2776-10 ####[facility] LABCLIA [id number] [place] [address] [place] ALP [Catalytic activity/Vol] 87 U/L Normal 38-113 [facility] Comment on above: Order Comment: Speci men Type: BLOOD SPECIMENOrdering Facility: [facility] Address: [address] [place] [address] Performed By: #### 2 4323-8, , 2776-10 ####[facility] LABCLIA [id number] [place] [address] [place] ALT [Catalytic activity/Vol] 17 U/L Normal 10-54 [facility] Comment on above: Order Comment: Speci men Type: BLOOD SPECIMENOrdering Facility: [facility] Address: [address] [place] [address] Performed By: #### 2 4323-8, , 2776-10 ####[facility] LABCLIA [id number] [place] [address] [place] Anion gap [Moles/Vol] 8 mmol/L Low 9-18 [facility] Comment on above: Order Comment: Speci men Type: BLOOD SPECIMENOrdering Facility: [facility] Address: [address] [place] [address] Performed By: #### 2 4323-8, , 2776- ####[facility] LABCLIA [id number] [place] [address] [place] AST [Catalytic activity/Vol] 19 U/L Normal 14-40 [facility] Comment on above: Order Comment: Speci men Type: BLOOD SPECIMENOrdering Facility: [facility] Address: [address] [place] [address] Performed By: #### 2 4323-8, 55500-2, 2776- ####[facility] LABCLIA [id number] [place] [address] [place] Bilirubin [Mass/Vol] 0.3 mg/dL Normal 0.2-1.3 [facility] Comment on above: Order Comment: Speci men Type: BLOOD SPECIMENOrdering Facility: [facility] Address: [address] [place] [address] Performed By: #### 2 4323-8, , 2776-10 ####[facility] LABCLIA [id number] [place] [address] [place] Calcium [Mass/Vol] 8.8 mg/dL Normal 8.5-10.2 [facility] Comment on above: Order Comment: Speci men Type: BLOOD SPECIMENOrdering Facility: [facility] Address: [address] [place], [place] [address] Performed By: #### 2 4323-8, , 2776-10 ####[facility] LABCLIA [id number] [place] [address] [place] Chloride [Moles/Vol] 110 mmol/L High 97-105 [facility] Comment on above: Order Comment: Speci men Type: BLOOD SPECIMENOrdering Facility: [facility] Address: [address] [place], [place] [address] Performed By: #### 2 4323-8, , 2776-10 ####[facility] LABCLIA [id number] [address] [address] [place] CO2 [Moles/Vol] 21 mmol/L Low 22-30 [facility] Comment on above: Order Comment: Speci men Type: BLOOD SPECIMENOrdering Facility: [facility] Address: [address] [place] [address] Performed By: #### 2 4323-8, , 2776-10 ####[facility] LABCLIA [id number] [place] [address] [place] Creatinine [Mass/Vol] 1.55 mg/dL High 0.73-1.22 [facility] Comment on above: Order Comment: Speci men Type: BLOOD SPECIMENOrdering Facility: [facility] Address: [address] [place] [address] Performed By: #### 2 4323-8, , 2776-10 ####[facility] LABCLIA [id number] [address] Creatinine and Glomerular filtration rate.predicted panel (S/P/Bld) 52 mL/min/1.73m??? Low >=60 [facility] Comment on above: Order Comment: Iesha marin Type: BLOOD SPECIMENOrdering Facility: [facility] Address: [address] [place] [address] Result Comment: Dayan mated Glomerular Filtration Rate (eGFR) is calculated using the 2020 CKD-EPI creatinine equation. This equation utilizes serum creatinine, sex, and age as parameters. The creatinine assay has traceable calibration to isotope dilution-mass spectrometry. Refer to KDIGO guidelines for clinical interpretation. In patients with unstable renal function, e.g. those with acute kidney injury, the eGFR may not accurately reflect actual GFR. Performed By: #### 2 4323-8, , 2776-10 ####[facility] LABCLIA [id number] [place] [address] [place] Glucose [Mass/Vol] 112 mg/dL High 74-99 [facility] Comment on above: Order Comment: Speci men Type: BLOOD SPECIMENOrdering Facility: [facility] Address: [place] [address] Result Comment: The [place] Diabetes Association (ADA) provides guidance for cutoff values for fasting glucose and random glucose. The ADA defines fasting as no caloric intake for at least 8 hours. Fasting plasma glucose results between 100 to 125 mg/dL indicate increased risk for diabetes (prediabetes).Fasting plasma glucose results greater than or equal to 126 mg/dL meet the criteria for diagnosis of diabetes. In the absence of unequivocal hyperglycemia, results should be confirmed by repeat testing. In a patient with classic symptoms of hyperglycemia or hyperglycemic crisis, random plasma glucose results greater than or equal to 200 mg/dL meet the criteria for diagnosis of diabetes.Reference: Standards of Medical Care in Diabetes 2016, [place] [employer]. Diabetes Care. 2016.39(Suppl 1). Performed By: #### 2 4323-8, , 2776-10 ####[facility] LABCLIA [id number] [place] [address] [place] Potassium [Moles/Vol] 3.9 mmol/L Normal 3.7-5.1 [facility] Comment on above: Order Comment: Speci men Type: BLOOD SPECIMENOrdering Facility: [facility] Address: [address] [place] [id number] Performed By: #### 2 4323-8, , 2776-10 ####[facility] LABCLIA [id number] [place] [address] [place] Protein [Mass/Vol] 5.1 g/dL Low 6.3-8.0 [facility] Comment on above: Order Comment: Speci men Type: BLOOD SPECIMENOrdering Facility: [facility] Address: [address] [place] [id number] Performed By: #### 2 4323-8, , 2776-10 ####[facility] LABCLIA [id number] [facility] [place] [id number] [place] Sodium [Moles/Vol] 139 mmol/L Normal 136-144 [facility] Comment on above: Order Comment: Speci men Type: BLOOD SPECIMENOrdering Facility: [facility] Address: [address] [place] [address] Performed By: #### 2 4323-8, , 2776-10 ####[facility] LABCLIA [id number] [place] [address] [place] Urea nitrogen [Mass/Vol] 21 mg/dL Normal 9-24 [facility] Comment on above: Order Comment: Speci men Type: BLOOD SPECIMENOrdering Facility: [facility] Address: [address] [place] [address] Performed By: #### 2 4323-8, , 2776-10 ####[facility] LABCLIA [id number] [place] [address] [place] Magnesium SerPl-mCncon 07-11 Magnesium [Mass/Vol] 2.0 mg/dL Normal 1.7-2.3 [facility] Comment on above: Order Comment: Speci men Type: BLOOD SPECIMENOrdering Facility: [facility] Address: [address] [place] [address] Performed By: #### 2 4323-8, , 2776-10 ####[facility] LABCLIA [id number] [place] [address] [place] PT panel Coag (PPP)on 2022 INR Coag (PPP) [Relative time] 1.0 {INR} Normal 0.9-1.3 [facility] Comment on above: Order Comment: Speci men Type: BLOOD SPECIMENOrdering Facility: [facility] Address: [address] [place] [address] Result Comment: Ella min K Antagonist (VKA) Therapeutic Range: INR 2 to 3 (Target INR of 2.5)Note: For patients treated with VKA drugs, such as warfarin, the [place] [employer] 2012 Guideline recommends a therapeutic INR range of 2 to 3 (target INR of 2.5). This recommendation includes high-risk patients with antiphospholipid syndrome with previous arterial or venous thromboembolism, current-generation mechanical or bioprosthetic aortic heart valve replacement.Note: Patients with mechanical aortic valve replacement and additional risk factors for thromboembolic events (atrial fibrillation, previous thromboembolism, LV dysfunction, hypercoagulable conditions) or an older generation mechanical AVR (i.e., ball in-Cage) or any mechanical MVR should have a INR therapeutic range of 2.5 to 3.5 (target INR of 3).Cee GH, et al. Chest 2012, 141:7S-47SNisharamis RA, et al. [facility] 2017, 70: 252-289 Performed By: #### 3 4528-0, 76565-1 ####[facility] LABCLIA [id number] [place] [address] [place] PT Coag (PPP) [Time] 9.9 s Normal 9.7-13.0 [facility] Comment on above: Order Comment: Speci men Type: BLOOD SPECIMENOrdering Facility: [facility] Address: [address] [place] [address] Performed By: #### 3 4528-0, 89822-3 ####[facility] LABCLIA [id number] [place] [address] [place] Phosphate SerPl-ncon 07-11 Phosphate [Mass/Vol] 2.7 mg/dL Normal 2.7-4.8 [facility] Comment on above: Order Comment: Speci men Type: BLOOD SPECIMENOrdering Facility: [facility] Address: [address] [place] [address] Performed By: #### 2 4323-8, 39040-0, 2777-1 ####[facility] LABCLIA [id number] [address] [address] [place] THERAPY NTon 07-11-2023 THERAPY NT Normal [facility] Tacrolimus Bld-mCncon 2022 Tacrolimus (Bld) [Mass/Vol] 6.7 ng/mL Normal 5.0-20.0 [facility] Comment on above: Order Comment: Iesha marin Type: BLOOD SPECIMENOrdering Facility: [facility] Address: [address] [place] [address] Result Comment: Nayely vidualized target levels for a given patient will depend on many factors (including the type of organ transplant, time since transplantation, concurrent medications, and other clinical factors), and should be assessed by those health care providers experienced in the management of immunosuppression. Reference ranges and high/low indicator flags are provided as general guidelines only. The treating physician must determine appropriate target levels/dosing based on the specific clinical situation. Test performed by chemiluminescent immunoassay using Cumulux Alinity i. Performed By: #### 1 1253-2 ####[facility] LABCLIA [id number] [place] [address] [place] XR CHEST 1V FRONTAL PORTon 1 XR CHEST 1V FRONTAL PORT Normal [facility] aPTT PPPon 07-11-2023 aPTT Coag (PPP) [Time] 28.4 s Normal 23.0-32.4 [facility] Comment on above: Order Comment: Iesha marin Type: BLOOD SPECIMENOrdering Facility: [facility] Address: [address] [place] [address] Performed By: #### 3 4528-0, 46691-0 ####[facility] LABCLIA [id number] [place] [address] [place] CBC W Auto Differential pane l (Bld)on 07-10-2023 Basophils (Bld) [#/Vol] 0.03 10*3/uL Normal <0.11 [facility] Comment on above: Order Comment: Iesha marin Type: BLOOD SPECIMENOrdering Facility: [facility] Address: [address] [place] [address] Performed By: #### 5 7021-8 ####[facility] LABCLIA [id number] [place] [address] [place] Basophils/100 WBC (Bld) 0.5 % Normal [facility] Comment on above: Order Comment: Speci men Type: BLOOD SPECIMENOrdering Facility: [facility] Address: [address] Performed By: #### 5 7021-8 ####[facility] LABCLIA [id number] [place] [address] [place] Differential cell count method Nom (Bld) Auto Normal [facility] Comment on above: Order Comment: Speci men Type: BLOOD SPECIMENOrdering Facility: [facility] Address: [address] [place], [place] [address] Performed By: #### 5 7021-8 ####[facility] LABCLIA [id number] [place] [address] [place] Eosinophils (Bld) [#/Vol] 0.11 10*3/uL Normal <0.46 [facility] Comment on above: Order Comment: Speci men Type: BLOOD SPECIMENOrdering Facility: [facility] Address: [address] [place], [place] [address] Performed By: #### 5 7021-8 ####[facility] LABCLIA [id number] [address] [place] Eosinophils/100 WBC (Bld) 1.8 % Normal [facility] Comment on above: Order Comment: Speci men Type: BLOOD SPECIMENOrdering Facility: [facility] Address: [address] [place], [place] [address] Performed By: #### 5 7021-8 ####[facility] LABCLIA [id number] [place] [address] [place] Erythrocyte distribution width (RBC) [Ratio] 18.1 % High 11.5-15.0 [facility] Comment on above: Order Comment: Speci men Type: BLOOD SPECIMENOrdering Facility: [facility] Address: [address] [place], [place] [address] Performed By: #### 5 7021-8 ####[facility] LABIA [id number] [place] [address] [place] Hematocrit (Bld) [Volume fraction] 23.0 % Low 39.0-51.0 [facility] Comment on above: Order Comment: Speci men Type: BLOOD SPECIMENOrdering Facility: [facility] Address: [address] [place], [place] [address] Performed By: #### 5 7021-8 ####[facility] LABIA [id number] [place] [address] [place] Hemoglobin (Bld) [Mass/Vol] 7.5 g/dL Low 13.0-17.0 [facility] Comment on above: Order Comment: Speci men Type: BLOOD SPECIMENOrdering Facility: [facility] Address: [address] [place], [place] [address] Performed By: #### 5 7021-8 ####[facility] LABIA [id number] [place] [address] [place] Immature granulocytes (Bld) [#/Vol] 0.05 10*3/uL Normal <0.10 [facility] Comment on above: Order Comment: Speci men Type: BLOOD SPECIMENOrdering Facility: [facility] Address: [address] [place], [place] [address] Performed By: #### 5 7021-8 ####[facility] LABIA [id number] [address] [place] Immature granulocytes/100 WBC (Bld) 0.8 % Normal [facility] Comment on above: Order Comment: Speci men Type: BLOOD SPECIMENOrdering Facility: [facility] Address: [address] [place] [address] Performed By: #### 5 7021-8 ####[facility] LABIA [id number] [place] [address] [place] Lymphocytes (Bld) [#/Vol] 1.97 10*3/uL Normal 1.00-4.00 [facility] Comment on above: Order Comment: Speci men Type: BLOOD SPECIMENOrdering Facility: [facility] Address: [address] [place] [address] Performed By: #### 5 7021-8 ####[facility] LABCLIA [id number] [address] [place] Lymphocytes/100 WBC (Bld) 32.2 % Normal [facility] Comment on above: Order Comment: Speci men Type: BLOOD SPECIMENOrdering Facility: [facility] Address: [address] [place], [place] [address] Performed By: #### 5 7021-8 ####[facility] LABCLIA [id number] [address] [place] MCH (RBC) [Entitic mass] 32.2 pg Normal 26.0-34.0 [facility] Comment on above: Order Comment: Speci men Type: BLOOD SPECIMENOrdering Facility: [facility] Address: [address] [place], [place] [address] Performed By: #### 5 7021-8 ####[facility] LABIA [id number] [address] [place] MCHC (RBC) [Mass/Vol] 32.6 g/dL Normal 30.5-36.0 [facility] Comment on above: Order Comment: Speci men Type: BLOOD SPECIMENOrdering Facility: [facility] Address: [address] [place], [place] [address] Performed By: #### 5 7021-8 ####[facility]CLIA [id number] [address] [place] MCV (RBC) [Entitic vol] 98.7 fL Normal 80.0-100.0 [facility] Comment on above: Order Comment: Speci men Type: BLOOD SPECIMENOrdering Facility: [facility] Address: [address] Performed By: #### 5 7021-8 ####[facility] LABCLIA [id number] [place] [address] [place] Monocytes (Bld) [#/Vol] 0.49 10*3/uL Normal <0.87 [facility] Comment on above: Order Comment: Speci men Type: BLOOD SPECIMENOrdering Facility: [facility] Address: [address] Performed By: #### 5 7021-8 ####[facility] LABCLIA [id number] [place] [address] [place] Monocytes/100 WBC (Bld) 8.0 % Normal [facility] Comment on above: Order Comment: Speci men Type: BLOOD SPECIMENOrdering Facility: [facility] Address: [address] Performed By: #### 5 7021-8 ####[facility] LABCLIA [id number] [place] [address] [place] Neutrophils (Bld) [#/Vol] 3.47 10*3/uL Normal 1.45-7.50 [facility] Comment on above: Order Comment: Speci men Type: BLOOD SPECIMENOrdering Facility: [facility] Address: [address] Performed By: #### 5 7021-8 ####[facility] LABCLIA [id number] [place] [address] [place] Neutrophils/100 WBC (Bld) 56.7 % Normal [facility] Comment on above: Order Comment: Speci men Type: BLOOD SPECIMENOrdering Facility: [facility] Address: [address] [place], [place] [address] Performed By: #### 5 7021-8 ####[facility] LABCLIA [id number] [place] [address] [place] Nucleated RBC (Bld) [#/Vol] 10*3/uL Normal <0.01 [facility] Comment on above: Order Comment: Speci men Type: BLOOD SPECIMENOrdering Facility: [facility] Address: [address] [place] [address] Performed By: #### 5 7021-8 ####[facility] LABCLIA [id number] [place] [address] [place] Nucleated RBC/100 WBC (Bld) [Ratio] 0.0 /100 WBC Normal [facility] Comment on above: Order Comment: Speci men Type: BLOOD SPECIMENOrdering Facility: [facility] Address: [address] [place] [address] Performed By: #### 5 7021-8 ####[facility] LABIA [id number] [place] [address] [place] Platelet mean volume (Bld) [Entitic vol] 9.5 fL Normal 9.0-12.7 [facility] Comment on above: Order Comment: Speci men Type: BLOOD SPECIMENOrdering Facility: [facility] Address: [address] [place], [place] [address] Performed By: #### 5 7021-8 ####[facility] LABIA [id number] [place] [address] [place] Platelets (Bld) [#/Vol] 201 10*3/uL Normal 150-400 [facility] Comment on above: Order Comment: Speci men Type: BLOOD SPECIMENOrdering Facility: [facility] Address: [address] [place], [place] [address] Performed By: #### 5 7021-8 ####[facility] LABCLIA [id number] [place] [address] [place] RBC (Bld) [#/Vol] 2.33 10*6/uL Low 4.20-6.00 [facility] Comment on above: Order Comment: Speci men Type: BLOOD SPECIMENOrdering Facility: [facility] Address: [address] Performed By: #### 5 7021-8 ####[facility] LABCLIA [id number] [place] [address] [place] WBC (Bld) [#/Vol] 6.12 10*3/uL Normal 3.70-11.00 [facility] Comment on above: Order Comment: Speci men Type: BLOOD SPECIMENOrdering Facility: [facility] Address: [address] Performed By: #### 5 7021-8 ####[facility] LABCLIA [id number] [place] [address] [place] Basophils (Bld) [#/Vol] 10*3/uL Normal <0.11 [facility] Comment on above: Order Comment: Speci men Type: BLOOD SPECIMENOrdering Facility: [facility] Address: [address] [place], [place] [address] Performed By: #### 5 7021-8 ####[facility] LABCLIA [id number] [place] [address] [place] Basophils/100 WBC (Bld) 0.3 % Normal [facility] Comment on above: Order Comment: Speci men Type: BLOOD SPECIMENOrdering Facility: [facility] Address: [address] Performed By: #### 5 7021-8 ####[facility] LABCLIA [id number] [place] [address] [place] Differential cell count method Nom (Bld) Auto Normal [facility] Comment on above: Order Comment: Speci men Type: BLOOD SPECIMENOrdering Facility: [facility] Address: [address] Performed By: #### 5 7021-8 ####[facility] LABCLIA [id number] [place] [address] [place] Eosinophils (Bld) [#/Vol] 0.16 10*3/uL Normal <0.46 [facility] Comment on above: Order Comment: Speci men Type: BLOOD SPECIMENOrdering Facility: [facility] Address: [address] [place] [address] Performed By: #### 5 7021-8 ####[facility] LABCLIA [id number] [place] [address] [place] Eosinophils/100 WBC (Bld) 2.4 % Normal [facility] Comment on above: Order Comment: Speci men Type: BLOOD SPECIMENOrdering Facility: [facility] Address: [address] [place] [address] Performed By: #### 5 7021-8 ####[facility] LABCLIA [id number] [place] [address] [place] Erythrocyte distribution width (RBC) [Ratio] 17.6 % High 11.5-15.0 [facility] Comment on above: Order Comment: Speci men Type: BLOOD SPECIMENOrdering Facility: [facility] Address: [address] [place] [address] Performed By: #### 5 7021-8 ####[facility] LABIA [id number] [place] [address] [place] Hematocrit (Bld) [Volume fraction] 22.2 % Low 39.0-51.0 [facility] Comment on above: Order Comment: Speci men Type: BLOOD SPECIMENOrdering Facility: [facility] Address: [address] [place], [place] [address] Performed By: #### 5 7021-8 ####[facility] LABCLIA [id number] [place] [address] [place] Hemoglobin (Bld) [Mass/Vol] 7.0 g/dL Low 13.0-17.0 [facility] Comment on above: Order Comment: Speci men Type: BLOOD SPECIMENOrdering Facility: [facility] Address: [address] [place] [address] Performed By: #### 5 7021-8 ####[facility] LABCLIA [id number] [place] [address] [place] Immature granulocytes (Bld) [#/Vol] 0.07 10*3/uL Normal <0.10 [facility] Comment on above: Order Comment: Speci men Type: BLOOD SPECIMENOrdering Facility: [facility] Address: [address] [place] [address] Performed By: #### 5 7021-8 ####[facility] LABCLIA [id number] [place] [address] [place] Immature granulocytes/100 WBC (Bld) 1.1 % Normal [facility] Comment on above: Order Comment: Speci men Type: BLOOD SPECIMENOrdering Facility: [facility] Address: [address] [place] [address] Performed By: #### 5 7021-8 ####[facility] LABCLIA [id number] [place] [address] [place] Lymphocytes (Bld) [#/Vol] 2.20 10*3/uL Normal 1.00-4.00 [facility] Comment on above: Order Comment: Speci men Type: BLOOD SPECIMENOrdering Facility: [facility] Address: [address] [place], [place] [address] Performed By: #### 5 7021-8 ####[facility] LABCLIA [id number] [place] [address] [place] Lymphocytes/100 WBC (Bld) 33.0 % Normal [facility] Comment on above: Order Comment: Speci men Type: BLOOD SPECIMENOrdering Facility: [facility] Address: [address] [place], [place] [address] Performed By: #### 5 7021-8 ####[facility] LABIA [id number] [address] MCH (RBC) [Entitic mass] 31.0 pg Normal 26.0-34.0 [facility] Comment on above: Order Comment: Speci men Type: BLOOD SPECIMENOrdering Facility: [facility] Address: [address] Performed By: #### 5 7021-8 ####[facility] [id number] [address] [place] MCHC (RBC) [Mass/Vol] 31.5 g/dL Normal 30.5-36.0 [facility] Comment on above: Order Comment: Speci men Type: BLOOD SPECIMENOrdering Facility: [facility] Address: [address] [place], [place] [address] Performed By: #### 5 7021-8 ####[facility] [id number] [address] [place] MCV (RBC) [Entitic vol] 98.2 fL Normal 80.0-100.0 [facility] Comment on above: Order Comment: Speci men Type: BLOOD SPECIMENOrdering Facility: [facility] Address: [address] Performed By: #### 5 7021-8 ####[facility] LABIA [id number] [address] [place] Monocytes (Bld) [#/Vol] 0.59 10*3/uL Normal <0.87 [facility] Comment on above: Order Comment: Speci men Type: BLOOD SPECIMENOrdering Facility: [facility] Address: [address] [place], [place] [address] Performed By: #### 5 7021-8 ####[facility] LABIA [id number] [place] [address] [place] Monocytes/100 WBC (Bld) 8.9 % Normal [facility] Comment on above: Order Comment: Speci men Type: BLOOD SPECIMENOrdering Facility: [facility] Address: [address] [place] [address] Performed By: #### 5 7021-8 ####[facility] LABCLIA [id number] [place] [address] [place] Neutrophils (Bld) [#/Vol] 3.62 10*3/uL Normal 1.45-7.50 [facility] Comment on above: Order Comment: Speci men Type: BLOOD SPECIMENOrdering Facility: [facility] Address: [address] [place] [address] Performed By: #### 5 7021-8 ####[facility] LABCLIA [id number] [place] [address] [place] Neutrophils/100 WBC (Bld) 54.3 % Normal [facility] Comment on above: Order Comment: Speci men Type: BLOOD SPECIMENOrdering Facility: [facility] Address: [address] [place], [place] [address] Performed By: #### 5 7021-8 ####[facility] LABCLIA [id number] [place] [address] [place] Nucleated RBC (Bld) [#/Vol] 0.02 10*3/uL High <0.01 [facility] Comment on above: Order Comment: Speci men Type: BLOOD SPECIMENOrdering Facility: [facility] Address: [address] [place], [place] [address] Performed By: #### 5 7021-8 ####[facility] LABCLIA [id number] [place] [address] [place] Nucleated RBC/100 WBC (Bld) [Ratio] 0.3 /100 WBC Normal [facility] Comment on above: Order Comment: Speci men Type: BLOOD SPECIMENOrdering Facility: [facility] Address: [address] [place], [place] [address] Performed By: #### 5 7021-8 ####[facility] LABIA [id number] [place] [address] [place] Platelet mean volume (Bld) [Entitic vol] 9.3 fL Normal 9.0-12.7 [facility] Comment on above: Order Comment: Speci men Type: BLOOD SPECIMENOrdering Facility: [facility] Address: [address] [place], [place] [address] Performed By: #### 5 7021-8 ####[facility] LABIA [id number] [place] [address] [place] Platelets (Bld) [#/Vol] 175 10*3/uL Normal 150-400 [facility] Comment on above: Order Comment: Speci men Type: BLOOD SPECIMENOrdering Facility: [facility] Address: [address] [place], [place] [address] Performed By: #### 5 7021-8 ####[facility] LABIA [id number] [place] [address] [place] RBC (Bld) [#/Vol] 2.26 10*6/uL Low 4.20-6.00 [facility] Comment on above: Order Comment: Speci men Type: BLOOD SPECIMENOrdering Facility: [facility] Address: [address] [place], [place] [address] Performed By: #### 5 7021-8 ####[facility] LABIA [id number] [place] [address] [place] WBC (Bld) [#/Vol] 6.66 10*3/uL Normal 3.70-11.00 [facility] Comment on above: Order Comment: Speci men Type: BLOOD SPECIMENOrdering Facility: [facility] Address: [address] [place], [place] [address] Performed By: #### 5 7021-8 ####[facility] LABCLIA [id number] [place] [address] [place] CONSULT PROGon 07-10-2023 CONSULT PROG Normal [facility] CONSULT PROG Normal [facility] metabolic 2000 panelon 07-10-2023 Albumin [Mass/Vol] 2.7 g/dL Low 3.9-4.9 [facility] Comment on above: Order Comment: Speci men Type: BLOOD SPECIMENOrdering Facility: [facility] Address: [address] Performed By: #### 2 777-1, 10852-1, ####[facility] LABCLIA [id number] [place] [address] [place] ALP [Catalytic activity/Vol] 77 U/L Normal 38-113 [facility] Comment on above: Order Comment: Speci men Type: BLOOD SPECIMENOrdering Facility: [facility] Address: [address] Performed By: #### 2 777-1, , ####[facility] LABIA [id number] [place] [address] [place] ALT [Catalytic activity/Vol] 16 U/L Normal 10-54 [facility] Comment on above: Order Comment: Speci men Type: BLOOD SPECIMENOrdering Facility: [facility] Address: [address] [place] [address] Performed By: #### 2 777-1, , ####[facility] LABIA [id number] [place] [address] [place] Anion gap [Moles/Vol] 9 mmol/L Normal 9-18 [facility] Comment on above: Order Comment: Speci men Type: BLOOD SPECIMENOrdering Facility: [facility] Address: [address] [place] [address] Performed By: #### 2 777-1, 98340-5, ####[facility] LABIA [id number] [place] [address] [place] AST [Catalytic activity/Vol] 13 U/L Low 14-40 [facility] Comment on above: Order Comment: Speci men Type: BLOOD SPECIMENOrdering Facility: [facility] Address: [address] [place], [place] [address] Performed By: #### 2 777-1, 45670-1, ####[facility] LABIA [id number] [place] [address] [place] Bilirubin [Mass/Vol] 0.4 mg/dL Normal 0.2-1.3 [facility] Comment on above: Order Comment: Speci men Type: BLOOD SPECIMENOrdering Facility: [facility] Address: [address] [place], [place] [address] Performed By: #### 2 777-1, 02860-4, ####[facility] LABIA [id number] [place] [address] [place] Calcium [Mass/Vol] 9.2 mg/dL Normal 8.5-10.2 [facility] Comment on above: Order Comment: Speci men Type: BLOOD SPECIMENOrdering Facility: [facility] Address: [address] [place], [place] [address] Performed By: #### 2 777-1, 91827-5, ####[facility] LABIA [id number] [place] [id number] [place] Chloride [Moles/Vol] 109 mmol/L High 97-105 [facility] Comment on above: Order Comment: Speci men Type: BLOOD SPECIMENOrdering Facility: [facility] Address: [address] Performed By: #### 2 777-1, , ####[facility] LABCLIA [id number] [facility] [place] [address] [place] CO2 [Moles/Vol] 22 mmol/L Normal 22-30 [facility] Comment on above: Order Comment: Speci men Type: BLOOD SPECIMENOrdering Facility: [facility] Address: [address] [place] [address] Performed By: #### 2 777-1, , ####[facility]CLIA [id number] [place] [address] [place] Creatinine [Mass/Vol] 1.68 mg/dL High 0.73-1.22 [facility] Comment on above: Order Comment: Speci men Type: BLOOD SPECIMENOrdering Facility: [facility] Address: [address] [place] [address] Performed By: #### 2 777-1, , ####[facility] LABIA [id number] [address] [place] Creatinine and Glomerular filtration rate.predicted panel (S/P/Bld) 47 mL/min/1.73m??? Low >=60 [facility] Comment on above: Order Comment: Speci men Type: BLOOD SPECIMENOrdering Facility: [facility] Address: [address] [place] [address] Result Comment: Adyan mated Glomerular Filtration Rate (eGFR) is calculated using the 2020 CKD-EPI creatinine equation. This equation utilizes serum creatinine, sex, and age as parameters. The creatinine assay has traceable calibration to isotope dilution-mass spectrometry. Refer to KDIGO guidelines for clinical interpretation. In patients with unstable renal function, e.g. those with acute kidney injury, the eGFR may not accurately reflect actual GFR. Performed By: #### 2 777-1, 09625-3, ####[facility] LABCLIA [id number] [place] [address] [place] Glucose [Mass/Vol] 90 mg/dL Normal 74-99 [facility] Comment on above: Order Comment: Speci men Type: BLOOD SPECIMENOrdering Facility: [facility] Address: [address] [place] [address] Result Comment: The [place] [employer] (ADA) provides guidance for cutoff values for fasting glucose and random glucose. The ADA defines fasting as no caloric intake for at least 8 hours. Fasting plasma glucose results between 100 to 125 mg/dL indicate increased risk for diabetes (prediabetes).Fasting plasma glucose results greater than or equal to 126 mg/dL meet the criteria for diagnosis of diabetes. In the absence of unequivocal hyperglycemia, results should be confirmed by repeat testing. In a patient with classic symptoms of hyperglycemia or hyperglycemic crisis, random plasma glucose results greater than or equal to 200 mg/dL meet the criteria for diagnosis of diabetes.Reference: Standards of Medical Care in Diabetes 2016, [place] [employer]. Diabetes Care. 2016.39(Suppl 1). Performed By: #### 2 777-1, 10566-0, ####[facility] LABIA [id number] [place] [address] [place] Potassium [Moles/Vol] 4.1 mmol/L Normal 3.7-5.1 [facility] Comment on above: Order Comment: Speci men Type: BLOOD SPECIMENOrdering Facility: [facility] Address: [address] [place], [place] [address] Performed By: #### 2 777-1, , ####[facility] LABIA [id number] [place] [id number] [place] Protein [Mass/Vol] 5.0 g/dL Low 6.3-8.0 [facility] Comment on above: Order Comment: Speci men Type: BLOOD SPECIMENOrdering Facility: [facility] Address: [address] [place], [place] [address] Performed By: #### 2 777-1, , ####[facility] LABIA [id number] [place] [address] [place] Sodium [Moles/Vol] 140 mmol/L Normal 136-144 [facility] Comment on above: Order Comment: Speci men Type: BLOOD SPECIMENOrdering Facility: [facility] Address: [address] [place] [address] Performed By: #### 2 777-1, , ####[facility] [id number] [place] [address] [place] Urea nitrogen [Mass/Vol] 25 mg/dL High 9-24 [facility] Comment on above: Order Comment: Speci men Type: BLOOD SPECIMENOrdering Facility: [facility] Address: [address] [place] [address] Performed By: #### 2 777-1, , ####[facility] [id number] [place] [id number] [place] Magnesium SerPl-mCncon 07-10 Magnesium [Mass/Vol] 2.1 mg/dL Normal 1.7-2.3 [facility] Comment on above: Order Comment: Speci men Type: BLOOD SPECIMENOrdering Facility: [facility] Address: [address] [place], [place] [address] Performed By: #### 2 777-1, , ####[facility] [id number] [place] [address] [place] PT panel Coag (PPP)on 2022 INR Coag (PPP) [Relative time] 1.0 {INR} Normal 0.9-1.3 [facility] Comment on above: Order Comment: Speci men Type: BLOOD SPECIMENOrdering Facility: [facility] Address: [address] [place], [place] [address] Result Comment: Ella min K Antagonist (VKA) Therapeutic Range: INR 2 to 3 (Target INR of 2.5)Note: For patients treated with VKA drugs, such as warfarin, the [place] [employer] 2012 Guideline recommends a therapeutic INR range of 2 to 3 (target INR of 2.5). This recommendation includes high-risk patients with antiphospholipid syndrome with previous arterial or venous thromboembolism, current-generation mechanical or bioprosthetic aortic heart valve replacement.Note: Patients with mechanical aortic valve replacement and additional risk factors for thromboembolic events (atrial fibrillation, previous thromboembolism, LV dysfunction, hypercoagulable conditions) or an older generation mechanical AVR (i.e., ball in-Cage) or any mechanical MVR should have a INR therapeutic range of 2.5 to 3.5 (target INR of 3).Cee GH, et al. Chest 2012, 141:7S-47SNishimesequiel RA, et al. [facility] 2017, 70: 252-289 Performed By: #### 3 4528-0, 52880-9 ####[facility] LABCLIA [id number] [place] [address] [place] PT Coag (PPP) [Time] 10.2 s Normal 9.7-13.0 [facility] Comment on above: Order Comment: Speci men Type: BLOOD SPECIMENOrdering Facility: [facility] Address: [address] [place] [address] Performed By: #### 3 4528-0, 65200-8 ####[facility] [id number] [place] [address] [place] Phosphate SerPl-mCncon 07-10 Phosphate [Mass/Vol] 2.7 mg/dL Normal 2.7-4.8 [facility] Comment on above: Order Comment: Speci men Type: BLOOD SPECIMENOrdering Facility: [facility] Address: [address] [place] [address] Performed By: #### 2 777-1, 94158-9, 94806-3 ####[facility] LABCLIA [id number] [address] [place] Tacrolimus Bld-mCncon 2022 Tacrolimus (Bld) [Mass/Vol] 7.7 ng/mL Normal 5.0-20.0 [facility] Comment on above: Order Comment: Specjose luis marin Type: BLOOD SPECIMENOrdering Facility: [facility] Address: [address] [place] [address] Result Comment: Nayely vidualized target levels for a given patient will depend on many factors (including the type of organ transplant, time since transplantation, concurrent medications, and other clinical factors), and should be assessed by those health care providers experienced in the management of immunosuppression. Reference ranges and high/low indicator flags are provided as general guidelines only. The treating physician must determine appropriate target levels/dosing based on the specific clinical situation. Test performed by chemiluminescent immunoassay using Cumulux Alinity i. Performed By: #### 1 1253-2 ####[facility] LABCLIA [id number] [address] [facility] aPTT PPPon 07-10-2023 aPTT Coag (PPP) [Time] 26.5 s Normal 23.0-32.4 [facility] Comment on above: Order Comment: Iesha marin Type: BLOOD SPECIMENOrdering Facility: [facility] Address: [address] [place] [address] Performed By: #### 3 4528-0, 90168-2 ####[facility] LABCLIA [id number] [address] [place] BRIEF OP NOTon 07-09-2023 BRIEF OP NOT Normal [facility] CBC Pnl Bld Autoon 3 Hemoglobin (Bld) [Mass/Vol] 7.1 g/dL Low 13.0-17.0 [facility] Comment on above: Order Comment: Iesha marin Type: BLOOD SPECIMENOrdering Facility: [facility] Address: [address] [place] [address] Performed By: #### 5 8410-2 ####[facility] LABCLIA [id number] [place] [address] [place] Order Comment: Speci men Type: VENOUS BLOOD SPECIMENOrdering Facility: [facility] Address: [address] [place] [address] Performed By: #### 2 4344-4 ####[facility] LABCLIA [id number] [place] [address] [place] CBC W Auto Differential pane l (Bld)on 07-09-2023 Basophils (Bld) [#/Vol] 10*3/uL Normal <0.11 [facility] Comment on above: Order Comment: Speci men Type: BLOOD SPECIMENOrdering Facility: [facility] Address: [address] [place] [address] Performed By: #### 5 7021-8 ####[facility] LABCLIA [id number] [place] [address] [place] Basophils/100 WBC (Bld) 0.3 % Normal [facility] Comment on above: Order Comment: Speci men Type: BLOOD SPECIMENOrdering Facility: [facility] Address: [address] [place] [address] Performed By: #### 5 7021-8 ####[facility] LABCLIA [id number] [address] [place] Differential cell count method Nom (Bld) Auto Normal [facility] Comment on above: Order Comment: Speci men Type: BLOOD SPECIMENOrdering Facility: [facility] Address: [address] [place] [address] Performed By: #### 5 7021-8 ####[facility] LABCLIA [id number] [place] [address] [place] Eosinophils (Bld) [#/Vol] 0.11 10*3/uL Normal <0.46 [facility] Comment on above: Order Comment: Speci men Type: BLOOD SPECIMENOrdering Facility: [facility] Address: [address] Performed By: #### 5 7021-8 ####[facility] LABCLIA [id number] [place] [address] [place] Eosinophils/100 WBC (Bld) 1.5 % Normal [facility] Comment on above: Order Comment: Speci men Type: BLOOD SPECIMENOrdering Facility: [facility] Address: [address] Performed By: #### 5 7021-8 ####[facility] LABCLIA [id number] [place] [address] [place] Erythrocyte distribution width (RBC) [Ratio] 17.9 % High 11.5-15.0 [facility] Comment on above: Order Comment: Speci men Type: BLOOD SPECIMENOrdering Facility: [facility] Address: [address] [place], [place] [address] Performed By: #### 5 7021-8 ####[facility] [id number] [place] [address] [place] Hematocrit (Bld) [Volume fraction] 21.9 % Low 39.0-51.0 [facility] Comment on above: Order Comment: Speci men Type: BLOOD SPECIMENOrdering Facility: [facility] Address: [address] [place], [place] [address] Performed By: #### 5 7021-8 ####[facility] LABCLIA [id number] [place] [address] [place] Hemoglobin (Bld) [Mass/Vol] 6.9 g/dL Low 13.0-17.0 [facility] Comment on above: Order Comment: Speci men Type: BLOOD SPECIMENOrdering Facility: [facility] Address: [address] [place], [place] [address] Performed By: #### 5 7021-8 ####[facility] LABCLIA [id number] [place] [address] [place] Immature granulocytes (Bld) [#/Vol] 0.07 10*3/uL Normal <0.10 [facility] Comment on above: Order Comment: Speci men Type: BLOOD SPECIMENOrdering Facility: [facility] Address: [address] [place] [address] Performed By: #### 5 7021-8 ####[facility] LABCLIA [id number] [address] [place] Immature granulocytes/100 WBC (Bld) 0.9 % Normal [facility] Comment on above: Order Comment: Speci men Type: BLOOD SPECIMENOrdering Facility: [facility] Address: [address] [place] [address] Performed By: #### 5 7021-8 ####[facility] LABCLIA [id number] [place] [address] [place] Lymphocytes (Bld) [#/Vol] 1.95 10*3/uL Normal 1.00-4.00 [facility] Comment on above: Order Comment: Speci men Type: BLOOD SPECIMENOrdering Facility: [facility] Address: [address] [place] [address] Performed By: #### 5 7021-8 ####[facility] LABCLIA [id number] [place] [address] [place] Lymphocytes/100 WBC (Bld) 26.4 % Normal [facility] Comment on above: Order Comment: Speci men Type: BLOOD SPECIMENOrdering Facility: [facility] Address: [address] [place], [place] [address] Performed By: #### 5 7021-8 ####[facility] LABCLIA [id number] [place] [address] [place] MCH (RBC) [Entitic mass] 30.8 pg Normal 26.0-34.0 [facility] Comment on above: Order Comment: Speci men Type: BLOOD SPECIMENOrdering Facility: [facility] Address: [address] Performed By: #### 5 7021-8 ####[facility] [id number] [place] [address] [place] MCHC (RBC) [Mass/Vol] 31.5 g/dL Normal 30.5-36.0 [facility] Comment on above: Order Comment: Speci men Type: BLOOD SPECIMENOrdering Facility: [facility] Address: [address] [place] [address] Performed By: #### 5 7021-8 ####[facility] [id number] [place] [address] [place] MCV (RBC) [Entitic vol] 97.8 fL Normal 80.0-100.0 [facility] Comment on above: Order Comment: Speci men Type: BLOOD SPECIMENOrdering Facility: [facility] Address: [address] Performed By: #### 5 7021-8 ####[facility] [id number] [address] [place] Monocytes (Bld) [#/Vol] 0.54 10*3/uL Normal <0.87 [facility] Comment on above: Order Comment: Speci men Type: BLOOD SPECIMENOrdering Facility: [facility] Address: [address] Performed By: #### 5 7021-8 ####[facility] [id number] [address] [place] Monocytes/100 WBC (Bld) 7.3 % Normal [facility] Comment on above: Order Comment: Speci men Type: BLOOD SPECIMENOrdering Facility: [facility] Address: [address] Performed By: #### 5 7021-8 ####[facility] LABCLIA [id number] [place] [address] [place] Neutrophils (Bld) [#/Vol] 4.71 10*3/uL Normal 1.45-7.50 [facility] Comment on above: Order Comment: Speci men Type: BLOOD SPECIMENOrdering Facility: [facility] Address: [address] [place] [address] Performed By: #### 5 7021-8 ####[facility] LABCLIA [id number] [place] [address] [place] Neutrophils/100 WBC (Bld) 63.6 % Normal [facility] Comment on above: Order Comment: Speci men Type: BLOOD SPECIMENOrdering Facility: [facility] Address: [address] [place] [address] Performed By: #### 5 7021-8 ####[facility] [id number] [place] [address] [place] Nucleated RBC (Bld) [#/Vol] 0.02 10*3/uL High <0.01 [facility] Comment on above: Order Comment: Speci men Type: BLOOD SPECIMENOrdering Facility: [facility] Address: [address] [place] [address] Performed By: #### 5 7021-8 ####[facility] [id number] [place] [address] [place] Nucleated RBC/100 WBC (Bld) [Ratio] 0.3 /100 WBC Normal [facility] Comment on above: Order Comment: Speci men Type: BLOOD SPECIMENOrdering Facility: [facility] Address: [address] [place], [place] [address] Performed By: #### 5 7021-8 ####[facility] LABCLIA [id number] [place] [address] [place] Platelet mean volume (Bld) [Entitic vol] 9.7 fL Normal 9.0-12.7 [facility] Comment on above: Order Comment: Speci men Type: BLOOD SPECIMENOrdering Facility: [facility] Address: [address] [place], [place] [address] Performed By: #### 5 7021-8 ####[facility] LABCLIA [id number] [place] [address] [place] Platelets (Bld) [#/Vol] 164 10*3/uL Normal 150-400 [facility] Comment on above: Order Comment: Speci men Type: BLOOD SPECIMENOrdering Facility: [facility] Address: [address] [place], [place] [address] Performed By: #### 5 7021-8 ####[facility] LABCLIA [id number] [place] [address] [place] RBC (Bld) [#/Vol] 2.24 10*6/uL Low 4.20-6.00 [facility] Comment on above: Order Comment: Speci men Type: BLOOD SPECIMENOrdering Facility: [facility] Address: [address] [place], [place] [address] Performed By: #### 5 7021-8 ####[facility] LABCLIA [id number] [place] [address] [place] WBC (Bld) [#/Vol] 7.40 10*3/uL Normal 3.70-11.00 [facility] Comment on above: Order Comment: Speci men Type: BLOOD SPECIMENOrdering Facility: [facility] Address: [address] [place], [place] [address] Performed By: #### 5 7021-8 ####[facility] LABCLIA [id number] [place] [address] [place] Basophils (Bld) [#/Vol] 0.03 10*3/uL Normal <0.11 [facility] Comment on above: Order Comment: Speci men Type: BLOOD SPECIMENOrdering Facility: [facility] Address: [address] Performed By: #### 5 7021-8 ####[facility] LABCLIA [id number] [address] [place] [facility] Basophils/100 WBC (Bld) 0.4 % Normal [facility] Comment on above: Order Comment: Speci men Type: BLOOD SPECIMENOrdering Facility: [facility] Address: [address] Performed By: #### 5 7021-8 ####[facility] LABCLIA [id number] [address] [place] Differential cell count method Nom (Bld) Auto Normal [facility] Comment on above: Order Comment: Speci men Type: BLOOD SPECIMENOrdering Facility: [facility] Address: [address] [place], [place] [address] Performed By: #### 5 7021-8 ####[facility]CLIA [id number] [place] [address] [place] Eosinophils (Bld) [#/Vol] 0.14 10*3/uL Normal <0.46 [facility] Comment on above: Order Comment: Speci men Type: BLOOD SPECIMENOrdering Facility: [facility] Address: [address] Performed By: #### 5 7021-8 ####[facility]CLIA [id number] [address] [place] Eosinophils/100 WBC (Bld) 1.7 % Normal [facility] Comment on above: Order Comment: Speci men Type: BLOOD SPECIMENOrdering Facility: [facility] Address: [address] Performed By: #### 5 7021-8 ####[facility] LABCLIA [id number] [address] STATES OF [facility] Erythrocyte distribution width (RBC) [Ratio] 17.7 % High 11.5-15.0 [facility] Comment on above: Order Comment: Speci men Type: BLOOD SPECIMENOrdering Facility: [facility] Address: [address] [place] [address] Performed By: #### 5 7021-8 ####[facility] [id number] [place] [address] [place] Hematocrit (Bld) [Volume fraction] 22.0 % Low 39.0-51.0 [facility] Comment on above: Order Comment: Speci men Type: BLOOD SPECIMENOrdering Facility: [facility] Address: [address] [place] [address] Performed By: #### 5 7021-8 ####[facility] [id number] [address] [place] Hemoglobin (Bld) [Mass/Vol] 7.1 g/dL Low 13.0-17.0 [facility] Comment on above: Order Comment: Speci men Type: BLOOD SPECIMENOrdering Facility: [facility] Address: [address] [place] [address] Performed By: #### 5 7021-8 ####[facility] [id number] [address] [place] Immature granulocytes (Bld) [#/Vol] 0.06 10*3/uL Normal <0.10 [facility] Comment on above: Order Comment: Speci men Type: BLOOD SPECIMENOrdering Facility: [facility] Address: [address] [place], [place] [address] Performed By: #### 5 7021-8 ####[facility] [id number] [address] [place] Immature granulocytes/100 WBC (Bld) 0.7 % Normal [facility] Comment on above: Order Comment: Speci men Type: BLOOD SPECIMENOrdering Facility: [facility] Address: [address] Performed By: #### 5 7021-8 ####[facility]CLIA [id number] [place] [address] [place] Lymphocytes (Bld) [#/Vol] 2.00 10*3/uL Normal 1.00-4.00 [facility] Comment on above: Order Comment: Speci men Type: BLOOD SPECIMENOrdering Facility: [facility] Address: [address] [place] [address] Performed By: #### 5 7021-8 ####[facility] [id number] [address] [place] Lymphocytes/100 WBC (Bld) 24.9 % Normal [facility] Comment on above: Order Comment: Speci men Type: BLOOD SPECIMENOrdering Facility: [facility] Address: [address] [place], [place] [address] Performed By: #### 5 7021-8 ####[facility] [id number] [place] [address] [place] MCH (RBC) [Entitic mass] 31.6 pg Normal 26.0-34.0 [facility] Comment on above: Order Comment: Speci men Type: BLOOD SPECIMENOrdering Facility: [facility] Address: [address] Performed By: #### 5 7021-8 ####[facility]CLIA [id number] [place] [address] [place] MCHC (RBC) [Mass/Vol] 32.3 g/dL Normal 30.5-36.0 [facility] Comment on above: Order Comment: Speci men Type: BLOOD SPECIMENOrdering Facility: [facility] Address: [address] Performed By: #### 5 7021-8 ####[facility]CLIA [id number] [place] [address] [place] MCV (RBC) [Entitic vol] 97.8 fL Normal 80.0-100.0 [facility] Comment on above: Order Comment: Speci men Type: BLOOD SPECIMENOrdering Facility: [facility] Address: [address] [place] [address] Performed By: #### 5 7021-8 ####[facility] [id number] [place] [address] [place] Monocytes (Bld) [#/Vol] 0.64 10*3/uL Normal <0.87 [facility] Comment on above: Order Comment: Speci men Type: BLOOD SPECIMENOrdering Facility: [facility] Address: [address] [place] [address] Performed By: #### 5 7021-8 ####[facility] [id number] [place] [address] [place] Monocytes/100 WBC (Bld) 8.0 % Normal [facility] Comment on above: Order Comment: Speci men Type: BLOOD SPECIMENOrdering Facility: [facility] Address: [address] [place], [place] [address] Performed By: #### 5 7021-8 ####[facility] [id number] [place] [address] [place] Neutrophils (Bld) [#/Vol] 5.16 10*3/uL Normal 1.45-7.50 [facility] Comment on above: Order Comment: Speci men Type: BLOOD SPECIMENOrdering Facility: [facility] Address: [address] [place], [place] [address] Performed By: #### 5 7021-8 ####[facility] [id number] [place] [address] [place] Neutrophils/100 WBC (Bld) 64.3 % Normal [facility] Comment on above: Order Comment: Speci men Type: BLOOD SPECIMENOrdering Facility: [facility] Address: [address] [place], [place] [address] Performed By: #### 5 7021-8 ####[facility] [id number] [place] [address] [place] Nucleated RBC (Bld) [#/Vol] 0.02 10*3/uL High <0.01 [facility] Comment on above: Order Comment: Speci men Type: BLOOD SPECIMENOrdering Facility: [facility] Address: [address] [place], [place] [address] Performed By: #### 5 7021-8 ####[facility] [id number] [place] [address] [place] Nucleated RBC/100 WBC (Bld) [Ratio] 0.2 /100 WBC Normal [facility] Comment on above: Order Comment: Speci men Type: BLOOD SPECIMENOrdering Facility: [facility] Address: [address] [place], [place] [address] Performed By: #### 5 7021-8 ####[facility] [id number] [place] [address] [place] Platelet mean volume (Bld) [Entitic vol] 9.9 fL Normal 9.0-12.7 [facility] Comment on above: Order Comment: Speci men Type: BLOOD SPECIMENOrdering Facility: [facility] Address: [address] Performed By: #### 5 7021-8 ####[facility] [id number] [place] [address] [place] Platelets (Bld) [#/Vol] 169 10*3/uL Normal 150-400 [facility] Comment on above: Order Comment: Speci men Type: BLOOD SPECIMENOrdering Facility: [facility] Address: [address] [place] [address] Performed By: #### 5 7021-8 ####[facility]CL[facility] [id number] [place] [address] [place] RBC (Bld) [#/Vol] 2.25 10*6/uL Low 4.20-6.00 [facility] Comment on above: Order Comment: Speci men Type: BLOOD SPECIMENOrdering Facility: [facility] Address: [address] [place] [address] Performed By: #### 5 7021-8 ####[facility] [id number] [place] [address] [place] WBC (Bld) [#/Vol] 8.03 10*3/uL Normal 3.70-11.00 [facility] Comment on above: Order Comment: Speci men Type: BLOOD SPECIMENOrdering Facility: [facility] Address: [address] [place], [place] [address] Performed By: #### 5 7021-8 ####[facility] [id number] [place] [address] [place] Basophils (Bld) [#/Vol] 0.03 10*3/uL Normal <0.11 [facility] Comment on above: Order Comment: Speci men Type: BLOOD SPECIMENOrdering Facility: [facility] Address: [address] [place] [address] Performed By: #### 5 7021-8 ####[facility] [id number] [place] [address] [place] Basophils/100 WBC (Bld) 0.3 % Normal [facility] Comment on above: Order Comment: Speci men Type: BLOOD SPECIMENOrdering Facility: [facility] Address: [address] [place], [place] [address] Performed By: #### 5 7021-8 ####[facility] [id number] [place] [address] [place] Differential cell count method Nom (Bld) Auto Normal [facility] Comment on above: Order Comment: Speci men Type: BLOOD SPECIMENOrdering Facility: [facility] Address: [address] [place] [address] Performed By: #### 5 7021-8 ####[facility] LABCLIA [id number] [place] [address] [place] Eosinophils (Bld) [#/Vol] 0.07 10*3/uL Normal <0.46 [facility] Comment on above: Order Comment: Speci men Type: BLOOD SPECIMENOrdering Facility: [facility] Address: [address] [place] [address] Performed By: #### 5 7021-8 ####[facility] LABCLIA [id number] [place] [address] [place] Eosinophils/100 WBC (Bld) 0.7 % Normal [facility] Comment on above: Order Comment: Speci men Type: BLOOD SPECIMENOrdering Facility: [facility] Address: [address] [place], [place] [address] Performed By: #### 5 7021-8 ####[facility] LABCLIA [id number] [place] [address] [place] Erythrocyte distribution width (RBC) [Ratio] 17.0 % High 11.5-15.0 [facility] Comment on above: Order Comment: Speci men Type: BLOOD SPECIMENOrdering Facility: [facility] Address: [address] [place], [place] [address] Performed By: #### 5 7021-8 ####[facility] LABCLIA [id number] [place] [address] [place] Hematocrit (Bld) [Volume fraction] 21.9 % Low 39.0-51.0 [facility] Comment on above: Order Comment: Speci men Type: BLOOD SPECIMENOrdering Facility: [facility] Address: [address] Performed By: #### 5 7021-8 ####[facility] LABCLIA [id number] [place] [address] [place] Hemoglobin (Bld) [Mass/Vol] 7.1 g/dL Low 13.0-17.0 [facility] Comment on above: Order Comment: Speci men Type: BLOOD SPECIMENOrdering Facility: [facility] Address: [address] Performed By: #### 5 7021-8 ####[facility] LABCLIA [id number] [place] [address] [place] Immature granulocytes (Bld) [#/Vol] 0.08 10*3/uL Normal <0.10 [facility] Comment on above: Order Comment: Speci men Type: BLOOD SPECIMENOrdering Facility: [facility] Address: [address] Performed By: #### 5 7021-8 ####[facility] LABCLIA [id number] [place] [address] [place] Immature granulocytes/100 WBC (Bld) 0.8 % Normal [facility] Comment on above: Order Comment: Speci men Type: BLOOD SPECIMENOrdering Facility: [facility] Address: [address] Performed By: #### 5 7021-8 ####[facility]CLIA [id number] [place] [address] [place] Lymphocytes (Bld) [#/Vol] 1.89 10*3/uL Normal 1.00-4.00 [facility] Comment on above: Order Comment: Speci men Type: BLOOD SPECIMENOrdering Facility: [facility] Address: [address] [place], [place] [address] Performed By: #### 5 7021-8 ####[facility] LABCLIA [id number] [address] [place] Lymphocytes/100 WBC (Bld) 19.2 % Normal [facility] Comment on above: Order Comment: Speci men Type: BLOOD SPECIMENOrdering Facility: [facility] Address: [address] [place] [address] Performed By: #### 5 7021-8 ####[facility] LABIA [id number] [address] MCH (RBC) [Entitic mass] 31.3 pg Normal 26.0-34.0 [facility] Comment on above: Order Comment: Speci men Type: BLOOD SPECIMENOrdering Facility: [facility] Address: [address] [place] [address] Performed By: #### 5 7021-8 ####[facility] LABIA [id number] [address] [place] [facility] MCHC (RBC) [Mass/Vol] 32.4 g/dL Normal 30.5-36.0 [facility] Comment on above: Order Comment: Speci men Type: BLOOD SPECIMENOrdering Facility: [facility] Address: [address] [place], [place] [address] Performed By: #### 5 7021-8 ####[facility] LABIA [id number] [place] [address] [place] MCV (RBC) [Entitic vol] 96.5 fL Normal 80.0-100.0 [facility] Comment on above: Order Comment: Speci men Type: BLOOD SPECIMENOrdering Facility: [facility] Address: [address] [place], [place] [address] Performed By: #### 5 7021-8 ####[facility] LABIA [id number] [address] [place] Monocytes (Bld) [#/Vol] 0.76 10*3/uL Normal <0.87 [facility] Comment on above: Order Comment: Speci men Type: BLOOD SPECIMENOrdering Facility: [facility] Address: [address] Performed By: #### 5 7021-8 ####[facility]CLIA [id number] [place] [address] [place] Monocytes/100 WBC (Bld) 7.7 % Normal [facility] Comment on above: Order Comment: Speci men Type: BLOOD SPECIMENOrdering Facility: [facility] Address: [address] Performed By: #### 5 7021-8 ####[facility] LABIA [id number] [place] [address] [place] Neutrophils (Bld) [#/Vol] 7.02 10*3/uL Normal 1.45-7.50 [facility] Comment on above: Order Comment: Speci men Type: BLOOD SPECIMENOrdering Facility: [facility] Address: [address] Performed By: #### 5 7021-8 ####[facility] LABCLIA [id number] [place] [address] [place] Neutrophils/100 WBC (Bld) 71.3 % Normal [facility] Comment on above: Order Comment: Speci men Type: BLOOD SPECIMENOrdering Facility: [facility] Address: [address] Performed By: #### 5 7021-8 ####[facility] LABCLIA [id number] [place] [address] [place] Nucleated RBC (Bld) [#/Vol] 0.04 10*3/uL High <0.01 [facility] Comment on above: Order Comment: Speci men Type: BLOOD SPECIMENOrdering Facility: [facility] Address: [address] Performed By: #### 5 7021-8 ####[facility] LABCLIA [id number] [place] [address] [place] Nucleated RBC/100 WBC (Bld) [Ratio] 0.4 /100 WBC Normal [facility] Comment on above: Order Comment: Speci men Type: BLOOD SPECIMENOrdering Facility: [facility] Address: [address] [place], [place] [address] Performed By: #### 5 7021-8 ####[facility] LABIA [id number] [place] [address] [place] Platelet mean volume (Bld) [Entitic vol] 10.0 fL Normal 9.0-12.7 [facility] Comment on above: Order Comment: Speci men Type: BLOOD SPECIMENOrdering Facility: [facility] Address: [address] [place], [place] [address] Performed By: #### 5 7021-8 ####[facility] LABIA [id number] [place] [address] [place] Platelets (Bld) [#/Vol] 163 10*3/uL Normal 150-400 [facility] Comment on above: Order Comment: Speci men Type: BLOOD SPECIMENOrdering Facility: [facility] Address: [address] [place] [address] Performed By: #### 5 7021-8 ####[facility] LABIA [id number] [place] [address] [place] RBC (Bld) [#/Vol] 2.27 10*6/uL Low 4.20-6.00 [facility] Comment on above: Order Comment: Speci men Type: BLOOD SPECIMENOrdering Facility: [facility] Address: [address] [place] [address] Performed By: #### 5 7021-8 ####[facility] LABIA [id number] [address] [id number] [address] [place] WBC (Bld) [#/Vol] 9.85 10*3/uL Normal 3.70-11.00 [facility] Comment on above: Order Comment: Speci men Type: BLOOD SPECIMENOrdering Facility: [facility] Address: [address] [place] [address] Performed By: #### 5 7021-8 ####[facility] LABCLIA [id number] [place] [address] [place] Basophils (Bld) [#/Vol] 10*3/uL Normal <0.11 [facility] Comment on above: Order Comment: Speci men Type: BLOOD SPECIMENOrdering Facility: [facility] Address: [address] [place] [address] Performed By: #### 5 7021-8 ####[facility] LABCLIA [id number] [address] [place] Basophils/100 WBC (Bld) 0.2 % Normal [facility] Comment on above: Order Comment: Speci men Type: BLOOD SPECIMENOrdering Facility: [facility] Address: [address] [place] [address] Performed By: #### 5 7021-8 ####[facility] LABCLIA [id number] [place] [address] [place] Differential cell count method Nom (Bld) Auto Normal [facility] Comment on above: Order Comment: Speci men Type: BLOOD SPECIMENOrdering Facility: [facility] Address: [address] [place], [place] [address] Performed By: #### 5 7021-8 ####[facility] LABCLIA [id number] [place] [address] [place] Eosinophils (Bld) [#/Vol] 0.07 10*3/uL Normal <0.46 [facility] Comment on above: Order Comment: Speci men Type: BLOOD SPECIMENOrdering Facility: [facility] Address: [address] Performed By: #### 5 7021-8 ####[facility] LABCLIA [id number] [address] [place] Eosinophils/100 WBC (Bld) 0.7 % Normal [facility] Comment on above: Order Comment: Speci men Type: BLOOD SPECIMENOrdering Facility: [facility] Address: [address] [place] [address] Performed By: #### 5 7021-8 ####[facility] LABCLIA [id number] [place] [address] [place] Erythrocyte distribution width (RBC) [Ratio] 17.2 % High 11.5-15.0 [facility] Comment on above: Order Comment: Speci men Type: BLOOD SPECIMENOrdering Facility: [facility] Address: [address] [place], [place] [address] Performed By: #### 5 7021-8 ####[facility] LABIA [id number] [place] [address] [place] Hematocrit (Bld) [Volume fraction] 21.9 % Low 39.0-51.0 [facility] Comment on above: Order Comment: Speci men Type: BLOOD SPECIMENOrdering Facility: [facility] Address: [address] Performed By: #### 5 7021-8 ####[facility] LABCLIA [id number] [place] [address] [place] Hemoglobin (Bld) [Mass/Vol] 7.0 g/dL Low 13.0-17.0 [facility] Comment on above: Order Comment: Speci men Type: BLOOD SPECIMENOrdering Facility: [facility] Address: [address] [place], [place] [address] Performed By: #### 5 7021-8 ####[facility] LABCLIA [id number] [place] [address] [place] Immature granulocytes (Bld) [#/Vol] 0.08 10*3/uL Normal <0.10 [facility] Comment on above: Order Comment: Speci men Type: BLOOD SPECIMENOrdering Facility: [facility] Address: [address] [place] [address] Performed By: #### 5 7021-8 ####[facility] LABCLIA [id number] [address] [place] Immature granulocytes/100 WBC (Bld) 0.8 % Normal [facility] Comment on above: Order Comment: Speci men Type: BLOOD SPECIMENOrdering Facility: [facility] Address: [address] [place] [address] Performed By: #### 5 7021-8 ####[facility] LABCLIA [id number] [place] [address] [place] Lymphocytes (Bld) [#/Vol] 1.82 10*3/uL Normal 1.00-4.00 [facility] Comment on above: Order Comment: Speci men Type: BLOOD SPECIMENOrdering Facility: [facility] Address: [address] [place] [address] Performed By: #### 5 7021-8 ####[facility] LABCLIA [id number] [place] [address] [place] Lymphocytes/100 WBC (Bld) 18.4 % Normal [facility] Comment on above: Order Comment: Speci men Type: BLOOD SPECIMENOrdering Facility: [facility] Address: [address] [place], [place] [address] Performed By: #### 5 7021-8 ####[facility] LABCLIA [id number] [place] [address] [place] MCH (RBC) [Entitic mass] 31.0 pg Normal 26.0-34.0 [facility] Comment on above: Order Comment: Speci men Type: BLOOD SPECIMENOrdering Facility: [facility] Address: [address] Performed By: #### 5 7021-8 ####[facility] LABIA [id number] [place] [address] [place] MCHC (RBC) [Mass/Vol] 32.0 g/dL Normal 30.5-36.0 [facility] Comment on above: Order Comment: Speci men Type: BLOOD SPECIMENOrdering Facility: [facility] Address: [address] [place] [address] Performed By: #### 5 7021-8 ####[facility] LABIA [id number] [place] [address] [place] MCV (RBC) [Entitic vol] 96.9 fL Normal 80.0-100.0 [facility] Comment on above: Order Comment: Speci men Type: BLOOD SPECIMENOrdering Facility: [facility] Address: [address] Performed By: #### 5 7021-8 ####[facility] LABIA [id number] [address] [place] Monocytes (Bld) [#/Vol] 0.86 10*3/uL Normal <0.87 [facility] Comment on above: Order Comment: Speci men Type: BLOOD SPECIMENOrdering Facility: [facility] Address: [address] Performed By: #### 5 7021-8 ####[facility] LABIA [id number] [address] [place] Monocytes/100 WBC (Bld) 8.7 % Normal [facility] Comment on above: Order Comment: Speci men Type: BLOOD SPECIMENOrdering Facility: [facility] Address: [address] [place], [place] [address] Performed By: #### 5 7021-8 ####[facility] LABCLIA [id number] [place] [address] [place] Neutrophils (Bld) [#/Vol] 7.05 10*3/uL Normal 1.45-7.50 [facility] Comment on above: Order Comment: Speci men Type: BLOOD SPECIMENOrdering Facility: [facility] Address: [address] [place] [address] Performed By: #### 5 7021-8 ####[facility] LABIA [id number] [place] [address] [place] Neutrophils/100 WBC (Bld) 71.2 % Normal [facility] Comment on above: Order Comment: Speci men Type: BLOOD SPECIMENOrdering Facility: [facility] Address: [address] [place] [address] Performed By: #### 5 7021-8 ####[facility] LABIA [id number] [place] [address] [place] Nucleated RBC (Bld) [#/Vol] 0.03 10*3/uL High <0.01 [facility] Comment on above: Order Comment: Speci men Type: BLOOD SPECIMENOrdering Facility: [facility] Address: [address] [place], [place] [address] Performed By: #### 5 7021-8 ####[facility] LABIA [id number] [place] [address] [place] Nucleated RBC/100 WBC (Bld) [Ratio] 0.3 /100 WBC Normal [facility] Comment on above: Order Comment: Speci men Type: BLOOD SPECIMENOrdering Facility: [facility] Address: [address] [place], [place] [address] Performed By: #### 5 7021-8 ####[facility] LABIA [id number] [place] [address] [place] Platelet mean volume (Bld) [Entitic vol] 10.3 fL Normal 9.0-12.7 [facility] Comment on above: Order Comment: Speci men Type: BLOOD SPECIMENOrdering Facility: [facility] Address: [address] [place], [place] [address] Performed By: #### 5 7021-8 ####[facility] LABCLIA [id number] [place] [address] [place] Platelets (Bld) [#/Vol] 169 10*3/uL Normal 150-400 [facility] Comment on above: Order Comment: Speci men Type: BLOOD SPECIMENOrdering Facility: [facility] Address: [address] [place], [place] [address] Performed By: #### 5 7021-8 ####[facility] LABIA [id number] [place] [address] [place] RBC (Bld) [#/Vol] 2.26 10*6/uL Low 4.20-6.00 [facility] Comment on above: Order Comment: Speci men Type: BLOOD SPECIMENOrdering Facility: [facility] Address: [address] [place], [place] [address] Performed By: #### 5 7021-8 ####[facility] LABCLIA [id number] [place] [address] [place] WBC (Bld) [#/Vol] 9.90 10*3/uL Normal 3.70-11.00 [facility] Comment on above: Order Comment: Speci men Type: BLOOD SPECIMENOrdering Facility: [facility] Address: [address] [place], [place] [address] Performed By: #### 5 7021-8 ####[facility] LABCLIA [id number] [place] [address] [place] CBC panel Auto (Bld)on 07-09 Erythrocyte distribution width (RBC) [Ratio] 17.8 % High 11.5-15.0 [facility] Comment on above: Order Comment: Speci men Type: BLOOD SPECIMENOrdering Facility: [facility] Address: [address] [address] Performed By: #### 5 8410-2 ####[facility] LABIA [id number] [address] [place] [facility] Hematocrit (Bld) [Volume fraction] 21.8 % Low 39.0-51.0 [facility] Comment on above: Order Comment: Speci men Type: BLOOD SPECIMENOrdering Facility: [facility] Address: [address] [address] Performed By: #### 5 8410-2 ####[facility] LABIA [id number] [address] [place] MCH (RBC) [Entitic mass] 31.6 pg Normal 26.0-34.0 [facility] Comment on above: Order Comment: Speci men Type: BLOOD SPECIMENOrdering Facility: [facility] Address: [address] [place] [address] Performed By: #### 5 8410-2 ####[facility] [id number] [address] [place] MCHC (RBC) [Mass/Vol] 32.6 g/dL Normal 30.5-36.0 [facility] Comment on above: Order Comment: Speci men Type: BLOOD SPECIMENOrdering Facility: [facility] Address: [address] Performed By: #### 5 8410-2 ####[facility] LABIA [id number] [address] [place] MCV (RBC) [Entitic vol] 96.9 fL Normal 80.0-100.0 [facility] Comment on above: Order Comment: Speci men Type: BLOOD SPECIMENOrdering Facility: [facility] Address: [address] [place], [place] [address] Performed By: #### 5 8410-2 ####[facility] LABCLIA [id number] [place] [address] [place] Nucleated RBC (Bld) [#/Vol] 0.02 10*3/uL High <0.01 [facility] Comment on above: Order Comment: Speci men Type: BLOOD SPECIMENOrdering Facility: [facility] Address: [address] [place], [place] [address] Performed By: #### 5 8410-2 ####[facility] LABCLIA [id number] [place] [address] [place] Platelet mean volume (Bld) [Entitic vol] 9.6 fL Normal 9.0-12.7 [facility] Comment on above: Order Comment: Speci men Type: BLOOD SPECIMENOrdering Facility: [facility] Address: [address] [place], [place] [address] Performed By: #### 5 8410-2 ####[facility] LABIA [id number] [place] [address] [place] Platelets (Bld) [#/Vol] 171 10*3/uL Normal 150-400 [facility] Comment on above: Order Comment: Speci men Type: BLOOD SPECIMENOrdering Facility: [facility] Address: [address] [place] [address] Performed By: #### 5 8410-2 ####[facility] LABCLIA [id number] [place] [address] [place] RBC (Bld) [#/Vol] 2.25 10*6/uL Low 4.20-6.00 [facility] Comment on above: Order Comment: Speci men Type: BLOOD SPECIMENOrdering Facility: [facility] Address: [address] [place] [address] Performed By: #### 5 8410-2 ####[facility] LABCLIA [id number] [place] [address] [place] WBC (Bld) [#/Vol] 7.50 10*3/uL Normal 3.70-11.00 [facility] Comment on above: Order Comment: Speci men Type: BLOOD SPECIMENOrdering Facility: [facility] Address: [address] [address] Performed By: #### 5 8410-2 ####[facility] LABCLIA [id number] [place] [address] [place] CONSULT PROGon 07-09-2023 CONSULT PROG Normal [facility] CT BRAIN WO IVCONon 07-09-20 CT BRAIN WO IVCON Normal [facility] CT BRAIN WO IVCON Normal [facility] Comprehensive metabolic 2000 panelon 07-09-2023 Albumin [Mass/Vol] 2.8 g/dL Low 3.9-4.9 [facility] Comment on above: Order Comment: Speci men Type: BLOOD SPECIMENOrdering Facility: [facility] Address: [address] Performed By: #### 2 4323-8 ####[facility] LABCLIA [id number] [address] [place] ALP [Catalytic activity/Vol] 78 U/L Normal 38-113 [facility] Comment on above: Order Comment: Speci men Type: BLOOD SPECIMENOrdering Facility: [facility] Address: [address] [place] [address] Performed By: #### 2 4323-8 ####[facility] LABCLIA [id number] [place] [address] [place] ALT [Catalytic activity/Vol] 16 U/L Normal 10-54 [facility] Comment on above: Order Comment: Speci men Type: BLOOD SPECIMENOrdering Facility: [facility] Address: [address] Performed By: #### 2 4323-8 ####[facility] LABCLIA [id number] [place] [address] [place] Anion gap [Moles/Vol] 8 mmol/L Low 9-18 [facility] Comment on above: Order Comment: Speci men Type: BLOOD SPECIMENOrdering Facility: [facility] Address: [address] [place] [address] Performed By: #### 2 4323-8 ####[facility] LABCLIA [id number] [place] [address] [place] AST [Catalytic activity/Vol] 15 U/L Normal 14-40 [facility] Comment on above: Order Comment: Speci men Type: BLOOD SPECIMENOrdering Facility: [facility] Address: [address] [place] [address] Performed By: #### 2 4323-8 ####[facility] LABCLIA [id number] [place] [address] [place] Bilirubin [Mass/Vol] 0.5 mg/dL Normal 0.2-1.3 [facility] Comment on above: Order Comment: Speci men Type: BLOOD SPECIMENOrdering Facility: [facility] Address: [address] [place] [address] Performed By: #### 2 4323-8 ####[facility] LABCLIA [id number] [place] [address] [place] Calcium [Mass/Vol] 9.1 mg/dL Normal 8.5-10.2 [facility] Comment on above: Order Comment: Speci men Type: BLOOD SPECIMENOrdering Facility: [facility] Address: [address] [place], [place] [address] Performed By: #### 2 4323-8 ####[facility] LABCLIA [id number] [place] [address] [place] Chloride [Moles/Vol] 109 mmol/L High 97-105 [facility] Comment on above: Order Comment: Speci men Type: BLOOD SPECIMENOrdering Facility: [facility] Address: [address] [address] Performed By: #### 2 4323-8 ####[facility] LABCLIA [id number] [address] [place] [facility] CO2 [Moles/Vol] 22 mmol/L Normal 22-30 [facility] Comment on above: Order Comment: Speci men Type: BLOOD SPECIMENOrdering Facility: [facility] Address: [address] [address] Performed By: #### 2 4323-8 ####[facility] LABIA [id number] [address] Creatinine [Mass/Vol] 1.71 mg/dL High 0.73-1.22 [facility] Comment on above: Order Comment: Speci men Type: BLOOD SPECIMENOrdering Facility: [facility] Address: [address] [address] Performed By: #### 2 4323-8 ####[facility] LABIA [id number] [address] Creatinine and Glomerular filtration rate.predicted panel (S/P/Bld) 46 mL/min/1.73m??? Low >=60 [facility] Comment on above: Order Comment: Speci men Type: BLOOD SPECIMENOrdering Facility: [facility] Address: [address] [place] [address] Result Comment: Dayan mated Glomerular Filtration Rate (eGFR) is calculated using the 2020 CKD-EPI creatinine equation. This equation utilizes serum creatinine, sex, and age as parameters. The creatinine assay has traceable calibration to isotope dilution-mass spectrometry. Refer to KDIGO guidelines for clinical interpretation. In patients with unstable renal function, e.g. those with acute kidney injury, the eGFR may not accurately reflect actual GFR. Performed By: #### 2 4323-8 ####[facility] LABCLIA [id number] [place] [address] [place] Glucose [Mass/Vol] 117 mg/dL High 74-99 [facility] Comment on above: Order Comment: Speci men Type: BLOOD SPECIMENOrdering Facility: [facility] Address: [address] [address] Result Comment: The [place] Diabetes Association (ADA) provides guidance for cutoff values for fasting glucose and random glucose. The ADA defines fasting as no caloric intake for at least 8 hours. Fasting plasma glucose results between 100 to 125 mg/dL indicate increased risk for diabetes (prediabetes).Fasting plasma glucose results greater than or equal to 126 mg/dL meet the criteria for diagnosis of diabetes. In the absence of unequivocal hyperglycemia, results should be confirmed by repeat testing. In a patient with classic symptoms of hyperglycemia or hyperglycemic crisis, random plasma glucose results greater than or equal to 200 mg/dL meet the criteria for diagnosis of diabetes.Reference: Standards of Medical Care in Diabetes 2016, [place] [employer] Association. Diabetes Care. 2016.39(Suppl 1). Performed By: #### 2 4323-8 ####[facility] LABIA [id number] [place] [address] [place] Potassium [Moles/Vol] 3.8 mmol/L Normal 3.7-5.1 [facility] Comment on above: Order Comment: Speci men Type: BLOOD SPECIMENOrdering Facility: [facility] Address: [address] [address] Performed By: #### 2 4323-8 ####[facility] LABIA [id number] [place] [address] [place] Protein [Mass/Vol] 5.0 g/dL Low 6.3-8.0 [facility] Comment on above: Order Comment: Speci men Type: BLOOD SPECIMENOrdering Facility: [facility] Address: [address] [address] Performed By: #### 2 4323-8 ####[facility] LABIA [id number] [place] [address] [place] Sodium [Moles/Vol] 139 mmol/L Normal 136-144 [facility] Comment on above: Order Comment: Speci men Type: BLOOD SPECIMENOrdering Facility: [facility] Address: [address] [place] [address] Performed By: #### 2 4323-8 ####[facility]CLIA [id number] [place] [address] [place] Urea nitrogen [Mass/Vol] 25 mg/dL High 9-24 [facility] Comment on above: Order Comment: Speci men Type: BLOOD SPECIMENOrdering Facility: [facility] Address: [address] [place] [address] Performed By: #### 2 4323-8 ####[facility]CLIA [id number] [place] [address] [place] Albumin [Mass/Vol] 2.5 g/dL Low 3.9-4.9 [facility] Comment on above: Order Comment: Speci men Type: BLOOD SPECIMENOrdering Facility: [facility] Address: [address] [place], [place] [address] Performed By: #### 2 777-1, , ####[facility]CLIA [id number] [place] [address] [place] ALP [Catalytic activity/Vol] 68 U/L Normal 38-113 [facility] Comment on above: Order Comment: Speci men Type: BLOOD SPECIMENOrdering Facility: [facility] Address: [address] [place], [place] [address] Performed By: #### 2 777-1, , ####[facility]CLIA [id number] [place] [address] [place] ALT [Catalytic activity/Vol] 19 U/L Normal 10-54 [facility] Comment on above: Order Comment: Speci men Type: BLOOD SPECIMENOrdering Facility: [facility] Address: [address] [place] [address] Performed By: #### 2 777-1, , ####[facility]CLIA [id number] [place] [address] [place] Anion gap [Moles/Vol] 8 mmol/L Low 9-18 [facility] Comment on above: Order Comment: Speci men Type: BLOOD SPECIMENOrdering Facility: [facility] Address: [address] [place] [address] Performed By: #### 2 777-1, , ####[facility]CLIA [id number] [place] [address] [place] AST [Catalytic activity/Vol] 17 U/L Normal 14-40 [facility] Comment on above: Order Comment: Speci men Type: BLOOD SPECIMENOrdering Facility: [facility] Address: [address] [place] [address] Performed By: #### 2 777-1, , ####[facility]CLIA [id number] [place] [address] [place] Bilirubin [Mass/Vol] 0.5 mg/dL Normal 0.2-1.3 [facility] Comment on above: Order Comment: Speci men Type: BLOOD SPECIMENOrdering Facility: [facility] Address: [address] [place] [address] Performed By: #### 2 777-1, , ####[facility]CLIA [id number] [place] [address] [place] Calcium [Mass/Vol] 8.8 mg/dL Normal 8.5-10.2 [facility] Comment on above: Order Comment: Speci men Type: BLOOD SPECIMENOrdering Facility: [facility] Address: [address] [place], [place] [address] Performed By: #### 2 777-1, , ####[facility]CLIA [id number] [place] [address] [place] Chloride [Moles/Vol] 108 mmol/L High 97-105 [facility] Comment on above: Order Comment: Speci men Type: BLOOD SPECIMENOrdering Facility: [facility] Address: [address] [place] [address] Performed By: #### 2 777-1, , ####[facility] LABIA [id number] [place] [address] [place] CO2 [Moles/Vol] 21 mmol/L Low 22-30 [facility] Comment on above: Order Comment: Speci men Type: BLOOD SPECIMENOrdering Facility: [facility] Address: [address] [place] [address] Performed By: #### 2 777-1, , ####[facility]IA [id number] [place] [address] [place] Creatinine [Mass/Vol] 1.75 mg/dL High 0.73-1.22 [facility] Comment on above: Order Comment: Speci men Type: BLOOD SPECIMENOrdering Facility: [facility] Address: [address] [place], [place] [address] Performed By: #### 2 777-1, , ####[facility] LABIA [id number] [place] [address] [place] Creatinine and Glomerular filtration rate.predicted panel (S/P/Bld) 45 mL/min/1.73m??? Low >=60 [facility] Comment on above: Order Comment: Speci men Type: BLOOD SPECIMENOrdering Facility: [facility] Address: [address] [place] [address] Result Comment: Dayan mated Glomerular Filtration Rate (eGFR) is calculated using the 2020 CKD-EPI creatinine equation. This equation utilizes serum creatinine, sex, and age as parameters. The creatinine assay has traceable calibration to isotope dilution-mass spectrometry. Refer to KDIGO guidelines for clinical interpretation. In patients with unstable renal function, e.g. those with acute kidney injury, the eGFR may not accurately reflect actual GFR. Performed By: #### 2 777-1, , ####[facility] LABIA [id number] [address] [address] [place] Glucose [Mass/Vol] 123 mg/dL High 74-99 [facility] Comment on above: Order Comment: Speci men Type: BLOOD SPECIMENOrdering Facility: [facility] Address: [address] [id number] Result Comment: The [place] Diabetes Association (ADA) provides guidance for cutoff values for fasting glucose and random glucose. The ADA defines fasting as no caloric intake for at least 8 hours. Fasting plasma glucose results between 100 to 125 mg/dL indicate increased risk for diabetes (prediabetes).Fasting plasma glucose results greater than or equal to 126 mg/dL meet the criteria for diagnosis of diabetes. In the absence of unequivocal hyperglycemia, results should be confirmed by repeat testing. In a patient with classic symptoms of hyperglycemia or hyperglycemic crisis, random plasma glucose results greater than or equal to 200 mg/dL meet the criteria for diagnosis of diabetes.Reference: Standards of Medical Care in Diabetes 2016, [place] [employer]. Diabetes Care. 2016.39(Suppl 1). Performed By: #### 2 777-1, , ####[facility] LABIA [id number] [address] [address] [place] Potassium [Moles/Vol] 4.2 mmol/L Normal 3.7-5.1 [facility] Comment on above: Order Comment: Speci men Type: BLOOD SPECIMENOrdering Facility: [facility] Address: [address] [phone] Performed By: #### 2 777-1, , ####[facility]CLIA [id number] [address] [address] [place] Protein [Mass/Vol] 4.8 g/dL Low 6.3-8.0 [facility] Comment on above: Order Comment: Speci men Type: BLOOD SPECIMENOrdering Facility: [facility] Address: [address] [place] [address] Performed By: #### 2 777-1, , ####[facility] LABCLIA [id number] [address] [place] [id number] [place] Sodium [Moles/Vol] 137 mmol/L Normal 136-144 [facility] Comment on above: Order Comment: Speci men Type: BLOOD SPECIMENOrdering Facility: [facility] Address: [address] [place] [address] Performed By: #### 2 777-1, , ####[facility] LABCLIA [id number] [address] [place] [id number] [place] Urea nitrogen [Mass/Vol] 29 mg/dL High 9-24 [facility] Comment on above: Order Comment: Speci men Type: BLOOD SPECIMENOrdering Facility: [facility] Address: [address] [place] [address] Performed By: #### 2 777-1, , ####[facility]CLIA [id number] [address] [address] [place] Gas and Carbon monoxide pane l (BldV)on 07-09-2023 BASE DEFICIT, VENOUS -1 mmol/L Normal -2-0 [facility] Comment on above: Order Comment: Speci men Type: VENOUS BLOOD SPECIMENOrdering Facility: [facility] Address: [address] [place] [address] Performed By: #### 2 4344-4 ####[facility] LABIA [id number] [place] [address] [place] Body temperature 98.6 [degF] Normal [facility] Comment on above: Order Comment: Speci men Type: VENOUS BLOOD SPECIMENOrdering Facility: [facility] Address: [address] [address] Performed By: #### 2 4344-4 ####[facility] LABIA [id number] [place] [address] [place] Calcium.ionized (Bld) [Mass/Vol] 1.34 mmol/L High 1.08-1.30 [facility] Comment on above: Order Comment: Speci men Type: VENOUS BLOOD SPECIMENOrdering Facility: [facility] Address: [address] [address] Performed By: #### 2 4344-4 ####[facility] [id number] [address] [place] Calcium.ionized adjusted to pH 7.4 (BldA) [Moles/Vol] 1.31 mmol/L High 1.08-1.30 [facility] Comment on above: Order Comment: Speci men Type: VENOUS BLOOD SPECIMENOrdering Facility: [facility] Address: [address] [address] Performed By: #### 2 4344-4 ####[facility] [id number] [address] [place] Carboxyhemoglobin (BldV) [Mass fraction] 2.0 % Normal 0.0-2.0 [facility] Comment on above: Order Comment: Speci men Type: VENOUS BLOOD SPECIMENOrdering Facility: [facility] Address: [address] Result Comment: Carb oxyhemoglobin Reference Range for Smokers: 2.0-8.0% Performed By: #### 2 4344-4 ####[facility]CLIA [id number] [place] [address] [place] CO2 (BldV) [Partial pressure] 42 mm[Hg] Normal 42-55 [facility] Comment on above: Order Comment: Speci men Type: VENOUS BLOOD SPECIMENOrdering Facility: [facility] Address: [address] [place] [address] Performed By: #### 2 4344-4 ####[facility] LABCLIA [id number] [place] [address] [place] Glucose [Mass/Vol] 115 mg/dL High 60-105 [facility] Comment on above: Order Comment: Speci men Type: VENOUS BLOOD SPECIMENOrdering Facility: [facility] Address: [address] [place] [address] Performed By: #### 2 4344-4 ####[facility]CLIA [id number] [place] [address] [place] HCO3 (Bld) [Moles/Vol] 24 mmol/L Normal 24-28 [facility] Comment on above: Order Comment: Speci men Type: VENOUS BLOOD SPECIMENOrdering Facility: [facility] Address: [address] [place] [address] Performed By: #### 2 4344-4 ####[facility]CLIA [id number] [place] [address] [place] Hematocrit (Bld) [Volume fraction] 22.3 % Low 39.0-51.0 [facility] Comment on above: Order Comment: Speci men Type: VENOUS BLOOD SPECIMENOrdering Facility: [facility] Address: [address] [place], [place] [address] Performed By: #### 2 4344-4 ####[facility]CLIA [id number] [place] [address] [place] Lactate [Moles/Vol] 0.8 mmol/L Normal 0.5-2.2 [facility] Comment on above: Order Comment: Speci men Type: VENOUS BLOOD SPECIMENOrdering Facility: [facility] Address: [address] Performed By: #### 2 4344-4 ####[facility]CLIA [id number] [place] [address] [place] Methemoglobin (Bld) [Mass fraction] 0.6 % Normal 0.0-1.5 [facility] Comment on above: Order Comment: Speci men Type: VENOUS BLOOD SPECIMENOrdering Facility: [facility] Address: [address] Performed By: #### 2 4344-4 ####[facility]CLIA [id number] [place] [address] [place] O2 THERAPY Ventilator Normal [facility] Comment on above: Order Comment: Speci men Type: VENOUS BLOOD SPECIMENOrdering Facility: [facility] Address: [address] Performed By: #### 2 4344-4 ####[facility]CLIA [id number] [place] [address] [place] Oxygen (BldV) [Partial pressure] 63 mm[Hg] High 35-45 [facility] Comment on above: Order Comment: Speci men Type: VENOUS BLOOD SPECIMENOrdering Facility: [facility] Address: [address] Performed By: #### 2 4344-4 ####[facility]CLIA [id number] [address] [place] Oxygen saturation in Venous blood 90 % High 60-85 [facility] Comment on above: Order Comment: Speci men Type: VENOUS BLOOD SPECIMENOrdering Facility: [facility] Address: [address] Performed By: #### 2 4344-4 ####[facility]CLIA [id number] [place] [address] [place] Oxyhemoglobin (BldV) [Mass fraction] 88 % High 60-85 [facility] Comment on above: Order Comment: Speci men Type: VENOUS BLOOD SPECIMENOrdering Facility: [facility] Address: [address] [place] [address] Performed By: #### 2 4344-4 ####[facility] LABIA [id number] [place] [address] [place] pH (BldV) 7.37 [pH] Normal 7.32-7.42 [facility] Comment on above: Order Comment: Speci men Type: VENOUS BLOOD SPECIMENOrdering Facility: [facility] Address: [address] [place] [address] Performed By: #### 2 4344-4 ####[facility]IA [id number] [place] [address] [place] Potassium [Moles/Vol] 3.6 mmol/L Normal 3.5-5.0 [facility] Comment on above: Order Comment: Speci men Type: VENOUS BLOOD SPECIMENOrdering Facility: [facility] Address: [address] [place], [place] [address] Performed By: #### 2 4344-4 ####[facility] LABIA [id number] [place] [address] [place] Sodium [Moles/Vol] 138 mmol/L Normal 136-144 [facility] Comment on above: Order Comment: Speci men Type: VENOUS BLOOD SPECIMENOrdering Facility: [facility] Address: [address] [place], [place] [address] Performed By: #### 2 4344-4 ####[facility] LABIA [id number] [place] [address] [place] IR MIQUEL CATHETERon 3 IR MIQUEL CATHETER Normal [facility] Magnesium SerPl-mCncon 07-09 Magnesium [Mass/Vol] 2.1 mg/dL Normal 1.7-2.3 [facility] Comment on above: Order Comment: Speci tania Type: BLOOD SPECIMENOrdering Facility: [facility] Address: [address] [id number] Performed By: #### 2 777-1, 12438-0, 05808-7 ####[facility]CLIA [id number] [address] [facility] NURSING PROGon 07-09-2023 NURSING PROG Normal [facility] PT panel Coag (PPP)on 2022 INR Coag (PPP) [Relative time] 1.0 {INR} Normal 0.9-1.3 [facility] Comment on above: Order Comment: Speci tania Type: BLOOD SPECIMENOrdering Facility: [facility] Address: [address] [place] [address] Result Comment: Ella min K Antagonist (VKA) Therapeutic Range: INR 2 to 3 (Target INR of 2.5)Note: For patients treated with VKA drugs, such as warfarin, the [place] [employer] 2012 Guideline recommends a therapeutic INR range of 2 to 3 (target INR of 2.5). This recommendation includes high-risk patients with antiphospholipid syndrome with previous arterial or venous thromboembolism, current-generation mechanical or bioprosthetic aortic heart valve replacement.Note: Patients with mechanical aortic valve replacement and additional risk factors for thromboembolic events (atrial fibrillation, previous thromboembolism, LV dysfunction, hypercoagulable conditions) or an older generation mechanical AVR (i.e., ball in-Cage) or any mechanical MVR should have a INR therapeutic range of 2.5 to 3.5 (target INR of 3).Cee GH, et al. Chest 2012, 141:7S-47SNisharamis RA, et al. [facility] 2017, 70: 252-289 Performed By: #### 3 4528-0, 02318-5 ####[facility]CLIA [id number] [address] [id number] [facility] [place] PT Coag (PPP) [Time] 10.6 s Normal 9.7-13.0 [facility] Comment on above: Order Comment: Iesha marin Type: BLOOD SPECIMENOrdering Facility: [facility] Address: [address] [place] [address] Performed By: #### 3 4528-0, 88542-3 ####[facility]CLIA [id number] [address] [place] Phosphate [facility]Pl[facility] Phosphate [Mass/Vol] 2.7 mg/dL Normal 2.7-4.8 [facility] Comment on above: Order Comment: Iesha marin Type: BLOOD SPECIMENOrdering Facility: [facility] Address: [address] [place] [address] Performed By: #### 2 777-1, 57371-9, 82555-7 ####[facility] LABIA [id number] [address] [place] OF [facility] Tacrolimus Bld-ncon 2022 Tacrolimus (Bld) [Mass/Vol] 7.6 ng/mL Normal 5.0-20.0 [facility] Comment on above: Order Comment: Iesha marin Type: BLOOD SPECIMENOrdering Facility: [facility] Address: [address] [place] [address] Result Comment: Nayely vidualized target levels for a given patient will depend on many factors (including the type of organ transplant, time since transplantation, concurrent medications, and other clinical factors), and should be assessed by those health care providers experienced in the management of immunosuppression. Reference ranges and high/low indicator flags are provided as general guidelines only. The treating physician must determine appropriate target levels/dosing based on the specific clinical situation. Test performed by chemiluminescent immunoassay using Cumul[employer] Alinity i. Performed By: #### 1 1253-2 ####[facility]IA [id number] [place] [address] [place] URINALYSIS, REFLEX MICROSCOP ICon 07-09-2023 Bilirubin Ql (U) Negative Normal Negative [facility] Comment on above: Order Comment: Speci men Type: URINE SPECIMENOrdering Facility: [facility] Address: [address] [address] Performed By: #### L [id number] ####[facility]CL[facility] [id number] [place] [address] [place] Clarity (Unsp spec) Clear Normal Clear [facility] Comment on above: Order Comment: Speci men Type: URINE SPECIMENOrdering Facility: [facility] Address: [address] [place] [address] Performed By: #### L [id number] ####[facility]CLIA [id number] [address] [place] Color (U) Colorless Normal Yellow [facility] Comment on above: Order Comment: Speci men Type: URINE SPECIMENOrdering Facility: [facility] Address: [address] [address] Performed By: #### L [id number] ####[facility]CLIA [id number] [place] [address] [place] Glucose Test strip (U) [Mass/Vol] Negative Normal Trace, Negative [facility] Comment on above: Order Comment: Speci men Type: URINE SPECIMENOrdering Facility: [facility] Address: [address] [address] Performed By: #### L [id number] ####[facility] [id number] [place] [address] [place] Hemoglobin Ql (U) Negative Normal Negative, Trace [facility] Comment on above: Order Comment: Speci men Type: URINE SPECIMENOrdering Facility: [facility] Address: [address] [address] Performed By: #### L [id number] ####[facility] [id number] [place] [address] [place] Ketones Ql (U) Negative Normal Trace, Negative [facility] Comment on above: Order Comment: Speci men Type: URINE SPECIMENOrdering Facility: [facility] Address: [address] [place] [address] Performed By: #### L [id number] ####[facility]IA [id number] [place] [address] [place] Leukocyte esterase Test strip Ql (U) Negative Normal Negative, 25 Edward/uL [facility] Comment on above: Order Comment: Speci men Type: URINE SPECIMENOrdering Facility: [facility] Address: [address] [place] [address] Performed By: #### L [id number] ####[facility]IA [id number] [place] [address] [place] Nitrite Ql (U) Negative Normal Negative [facility] Comment on above: Order Comment: Speci men Type: URINE SPECIMENOrdering Facility: [facility] Address: [address] [place] [address] Performed By: #### L [id number] ####[facility] [id number] [place] [address] [place] pH (U) 6.0 [pH] Normal 5.0-8.0 [facility] Comment on above: Order Comment: Speci men Type: URINE SPECIMENOrdering Facility: [facility] Address: [address] [place] [address] Performed By: #### L [id number] ####[facility]IA [id number] [place] [address] [place] Protein (U) [Mass/Vol] Negative Normal Trace, Negative [facility] Comment on above: Order Comment: Speci men Type: URINE SPECIMENOrdering Facility: [facility] Address: [address] [place] [address] Performed By: #### L [id number] ####[facility] [id number] [place] [address] [place] Specific gravity (U) [Rel density] 1.011 Normal 1.005-1.030 [facility] Comment on above: Order Comment: Speci men Type: URINE SPECIMENOrdering Facility: [facility] Address: [address] [place] [address] Performed By: #### L [id number] ####[facility]IA [id number] [place] [address] [place] Urobilinogen Ql (U) Negative Normal Negative [facility] Comment on above: Order Comment: Speci men Type: URINE SPECIMENOrdering Facility: [facility] Address: [address] [place] [address] Performed By: #### L [id number] ####[facility] [id number] [address] [place] XR ABDOMEN 1V SUPINEon 07-09 XR ABDOMEN 1V SUPINE Normal [facility] XR CHEST 1V FRONTAL PORTon 0 07-09-2023 XR CHEST 1V FRONTAL PORT Normal [facility] aPTT PPPon 07-09-2023 aPTT Coag (PPP) [Time] 27.4 s Normal 23.0-32.4 [facility] Comment on above: Order Comment: Speci men Type: BLOOD SPECIMENOrdering Facility: [facility] Address: [address] [address] Performed By: #### 3 4528-0, 49363-4 ####[facility] LABIA [id number] [address] [place] CASE MANAGEMon 07-08-2023 CASE MANAGEM Normal [facility] CBC W Auto Differential pane l (Bld)on 07-08-2023 Basophils (Bld) [#/Vol] 10*3/uL Normal <0.11 [facility] Comment on above: Order Comment: Speci men Type: BLOOD SPECIMENOrdering Facility: [facility] Address: [address] [place], [place] [address] Performed By: #### 5 7021-8 ####[facility] LABCLIA [id number] [address] [place] Basophils/100 WBC (Bld) 0.2 % Normal [facility] Comment on above: Order Comment: Speci men Type: BLOOD SPECIMENOrdering Facility: [facility] Address: [address] [place], [place] [address] Performed By: #### 5 7021-8 ####[facility] LABCLIA [id number] [place] [address] [place] Differential cell count method Nom (Bld) Auto Normal [facility] Comment on above: Order Comment: Speci men Type: BLOOD SPECIMENOrdering Facility: [facility] Address: [address] [place], [place] [address] Performed By: #### 5 7021-8 ####[facility] LABCLIA [id number] [place] [address] [place] Eosinophils (Bld) [#/Vol] 0.07 10*3/uL Normal <0.46 [facility] Comment on above: Order Comment: Speci men Type: BLOOD SPECIMENOrdering Facility: [facility] Address: [address] [place], [place] [address] Performed By: #### 5 7021-8 ####[facility] LABCLIA [id number] [place] [address] [place] Eosinophils/100 WBC (Bld) 0.8 % Normal [facility] Comment on above: Order Comment: Speci men Type: BLOOD SPECIMENOrdering Facility: [facility] Address: [address] [place], [place] [address] Performed By: #### 5 7021-8 ####[facility] LABCLIA [id number] [place] [address] [place] Erythrocyte distribution width (RBC) [Ratio] 16.0 % High 11.5-15.0 [facility] Comment on above: Order Comment: Speci men Type: BLOOD SPECIMENOrdering Facility: [facility] Address: [address] [place] [address] Performed By: #### 5 7021-8 ####[facility] [id number] [place] [address] [place] Hematocrit (Bld) [Volume fraction] 23.1 % Low 39.0-51.0 [facility] Comment on above: Order Comment: Speci men Type: BLOOD SPECIMENOrdering Facility: [facility] Address: [address] [place] [address] Performed By: #### 5 7021-8 ####[facility] [id number] [place] [address] [place] Hemoglobin (Bld) [Mass/Vol] 7.3 g/dL Low 13.0-17.0 [facility] Comment on above: Order Comment: Speci men Type: BLOOD SPECIMENOrdering Facility: [facility] Address: [address] [place] [address] Performed By: #### 5 7021-8 ####[facility] [id number] [place] [address] [place] Immature granulocytes (Bld) [#/Vol] 0.09 10*3/uL Normal <0.10 [facility] Comment on above: Order Comment: Speci men Type: BLOOD SPECIMENOrdering Facility: [facility] Address: [address] [place], [place] [address] Performed By: #### 5 7021-8 ####[facility]IA [id number] [place] [address] [place] Immature granulocytes/100 WBC (Bld) 1.0 % Normal [facility] Comment on above: Order Comment: Speci men Type: BLOOD SPECIMENOrdering Facility: [facility] Address: [address] [place], [place] [address] Performed By: #### 5 7021-8 ####[facility] LABCLIA [id number] [place] [address] [place] Lymphocytes (Bld) [#/Vol] 2.06 10*3/uL Normal 1.00-4.00 [facility] Comment on above: Order Comment: Speci men Type: BLOOD SPECIMENOrdering Facility: [facility] Address: [address] [place], [place] [address] Performed By: #### 5 7021-8 ####[facility] LABCLIA [id number] [place] [address] [place] Lymphocytes/100 WBC (Bld) 22.4 % Normal [facility] Comment on above: Order Comment: Speci men Type: BLOOD SPECIMENOrdering Facility: [facility] Address: [address] [place] [address] Performed By: #### 5 7021-8 ####[facility]IA [id number] [place] [address] [place] MCH (RBC) [Entitic mass] 30.2 pg Normal 26.0-34.0 [facility] Comment on above: Order Comment: Speci men Type: BLOOD SPECIMENOrdering Facility: [facility] Address: [address] [place], [place] [address] Performed By: #### 5 7021-8 ####[facility] LABCLIA [id number] [place] [address] [place] MCHC (RBC) [Mass/Vol] 31.6 g/dL Normal 30.5-36.0 [facility] Comment on above: Order Comment: Speci men Type: BLOOD SPECIMENOrdering Facility: [facility] Address: [address] [place] [address] Performed By: #### 5 7021-8 ####[facility] LABCLIA [id number] [place] [address] [place] MCV (RBC) [Entitic vol] 95.5 fL Normal 80.0-100.0 [facility] Comment on above: Order Comment: Speci men Type: BLOOD SPECIMENOrdering Facility: [facility] Address: [address] [place] [address] Performed By: #### 5 7021-8 ####[facility] LABIA [id number] [place] [address] [place] Monocytes (Bld) [#/Vol] 0.65 10*3/uL Normal <0.87 [facility] Comment on above: Order Comment: Speci men Type: BLOOD SPECIMENOrdering Facility: [facility] Address: [address] Performed By: #### 5 7021-8 ####[facility] LABIA [id number] [place] [address] [place] Monocytes/100 WBC (Bld) 7.1 % Normal [facility] Comment on above: Order Comment: Speci men Type: BLOOD SPECIMENOrdering Facility: [facility] Address: [address] [place] [address] Performed By: #### 5 7021-8 ####[facility]IA [id number] [place] [address] [place] Neutrophils (Bld) [#/Vol] 6.32 10*3/uL Normal 1.45-7.50 [facility] Comment on above: Order Comment: Speci men Type: BLOOD SPECIMENOrdering Facility: [facility] Address: [address] [place] [address] Performed By: #### 5 7021-8 ####[facility] LABIA [id number] [place] [id number] [place] Neutrophils/100 WBC (Bld) 68.5 % Normal [facility] Comment on above: Order Comment: Speci men Type: BLOOD SPECIMENOrdering Facility: [facility] Address: [address] [place], [place] [address] Performed By: #### 5 7021-8 ####[facility] LABCLIA [id number] [place] [address] [place] Nucleated RBC (Bld) [#/Vol] 0.03 10*3/uL High <0.01 [facility] Comment on above: Order Comment: Speci men Type: BLOOD SPECIMENOrdering Facility: [facility] Address: [address] [place], [place] [address] Performed By: #### 5 7021-8 ####[facility] LABCLIA [id number] [place] [address] [place] Nucleated RBC/100 WBC (Bld) [Ratio] 0.3 /100 WBC Normal [facility] Comment on above: Order Comment: Speci men Type: BLOOD SPECIMENOrdering Facility: [facility] Address: [address] [place], [place] [address] Performed By: #### 5 7021-8 ####[facility] LABCLIA [id number] [place] [address] [place] Platelet mean volume (Bld) [Entitic vol] 9.8 fL Normal 9.0-12.7 [facility] Comment on above: Order Comment: Speci men Type: BLOOD SPECIMENOrdering Facility: [facility] Address: [address] [place], [place] [address] Performed By: #### 5 7021-8 ####[facility] LABCLIA [id number] [place] [address] [place] Platelets (Bld) [#/Vol] 166 10*3/uL Normal 150-400 [facility] Comment on above: Order Comment: Speci men Type: BLOOD SPECIMENOrdering Facility: [facility] Address: [address] Performed By: #### 5 7021-8 ####[facility]IA [id number] [place] [address] [place] RBC (Bld) [#/Vol] 2.42 10*6/uL Low 4.20-6.00 [facility] Comment on above: Order Comment: Speci men Type: BLOOD SPECIMENOrdering Facility: [facility] Address: [address] Performed By: #### 5 7021-8 ####[facility]IA [id number] [place] [address] [place] WBC (Bld) [#/Vol] 9.21 10*3/uL Normal 3.70-11.00 [facility] Comment on above: Order Comment: Speci men Type: BLOOD SPECIMENOrdering Facility: [facility] Address: [address] [place], [place] [address] Performed By: #### 5 7021-8 ####[facility]IA [id number] [place] [address] [place] Basophils (Bld) [#/Vol] 0.03 10*3/uL Normal <0.11 [facility] Comment on above: Order Comment: Speci men Type: BLOOD SPECIMENOrdering Facility: [facility] Address: [address] [place], [place] [address] Performed By: #### 5 7021-8 ####[facility]IA [id number] [place] [address] [place] Basophils/100 WBC (Bld) 0.3 % Normal [facility] Comment on above: Order Comment: Speci men Type: BLOOD SPECIMENOrdering Facility: [facility] Address: [address] Performed By: #### 5 7021-8 ####[facility] LABCLIA [id number] [place] [address] [place] Differential cell count method Nom (Bld) Auto Normal [facility] Comment on above: Order Comment: Speci men Type: BLOOD SPECIMENOrdering Facility: [facility] Address: [address] [place] [address] Performed By: #### 5 7021-8 ####[facility] LABCLIA [id number] [place] [address] [place] Eosinophils (Bld) [#/Vol] 0.14 10*3/uL Normal <0.46 [facility] Comment on above: Order Comment: Speci men Type: BLOOD SPECIMENOrdering Facility: [facility] Address: [address] [place] [address] Performed By: #### 5 7021-8 ####[facility] LABCLIA [id number] [place] [address] [place] Eosinophils/100 WBC (Bld) 1.4 % Normal [facility] Comment on above: Order Comment: Speci men Type: BLOOD SPECIMENOrdering Facility: [facility] Address: [address] [place] [address] Performed By: #### 5 7021-8 ####[facility] LABCLIA [id number] [place] [address] [place] Erythrocyte distribution width (RBC) [Ratio] 16.0 % High 11.5-15.0 [facility] Comment on above: Order Comment: Speci men Type: BLOOD SPECIMENOrdering Facility: [facility] Address: [address] [place], [place] [address] Performed By: #### 5 7021-8 ####[facility] LABCLIA [id number] [place] [address] [place] Hematocrit (Bld) [Volume fraction] 22.7 % Low 39.0-51.0 [facility] Comment on above: Order Comment: Speci men Type: BLOOD SPECIMENOrdering Facility: [facility] Address: [address] Performed By: #### 5 7021-8 ####[facility] LABCLIA [id number] [place] [address] [place] Hemoglobin (Bld) [Mass/Vol] 7.4 g/dL Low 13.0-17.0 [facility] Comment on above: Order Comment: Speci men Type: BLOOD SPECIMENOrdering Facility: [facility] Address: [address] Performed By: #### 5 7021-8 ####[facility] LABCLIA [id number] [place] [address] [place] Immature granulocytes (Bld) [#/Vol] 0.10 10*3/uL High <0.10 [facility] Comment on above: Order Comment: Speci men Type: BLOOD SPECIMENOrdering Facility: [facility] Address: [address] [place], [place] [address] Performed By: #### 5 7021-8 ####[facility] LABIA [id number] [place] [address] [place] Immature granulocytes/100 WBC (Bld) 1.0 % Normal [facility] Comment on above: Order Comment: Speci men Type: BLOOD SPECIMENOrdering Facility: [facility] Address: [address] Performed By: #### 5 7021-8 ####[facility] LABCLIA [id number] [place] [address] [place] Lymphocytes (Bld) [#/Vol] 2.74 10*3/uL Normal 1.00-4.00 [facility] Comment on above: Order Comment: Speci men Type: BLOOD SPECIMENOrdering Facility: [facility] Address: [address] Performed By: #### 5 7021-8 ####[facility] LABIA [id number] [address] [place] [facility] Lymphocytes/100 WBC (Bld) 28.4 % Normal [facility] Comment on above: Order Comment: Speci men Type: BLOOD SPECIMENOrdering Facility: [facility] Address: [address] [place], [place] [address] Performed By: #### 5 7021-8 ####[facility]IA [id number] [place] [address] [place] MCH (RBC) [Entitic mass] 31.0 pg Normal 26.0-34.0 [facility] Comment on above: Order Comment: Speci men Type: BLOOD SPECIMENOrdering Facility: [facility] Address: [address] [place], [place] [address] Performed By: #### 5 7021-8 ####[facility] [id number] [address] [place] MCHC (RBC) [Mass/Vol] 32.6 g/dL Normal 30.5-36.0 [facility] Comment on above: Order Comment: Speci men Type: BLOOD SPECIMENOrdering Facility: [facility] Address: [address] [place], [place] [address] Performed By: #### 5 7021-8 ####[facility] [id number] [place] [address] [place] MCV (RBC) [Entitic vol] 95.0 fL Normal 80.0-100.0 [facility] Comment on above: Order Comment: Speci men Type: BLOOD SPECIMENOrdering Facility: [facility] Address: [address] [place], [place] [address] Performed By: #### 5 7021-8 ####[facility] [id number] [place] [address] [place] Monocytes (Bld) [#/Vol] 0.79 10*3/uL Normal <0.87 [facility] Comment on above: Order Comment: Speci men Type: BLOOD SPECIMENOrdering Facility: [facility] Address: [address] Performed By: #### 5 7021-8 ####[facility] LABCLIA [id number] [place] [address] [place] Monocytes/100 WBC (Bld) 8.2 % Normal [facility] Comment on above: Order Comment: Speci men Type: BLOOD SPECIMENOrdering Facility: [facility] Address: [address] [place], [place] [address] Performed By: #### 5 7021-8 ####[facility] LABCLIA [id number] [place] [address] [place] Neutrophils (Bld) [#/Vol] 5.86 10*3/uL Normal 1.45-7.50 [facility] Comment on above: Order Comment: Speci men Type: BLOOD SPECIMENOrdering Facility: [facility] Address: [address] [place], [place] [address] Performed By: #### 5 7021-8 ####[facility]CLIA [id number] [place] [address] [place] Neutrophils/100 WBC (Bld) 60.7 % Normal [facility] Comment on above: Order Comment: Speci men Type: BLOOD SPECIMENOrdering Facility: [facility] Address: [address] Performed By: #### 5 7021-8 ####[facility] LABCLIA [id number] [place] [address] [place] Nucleated RBC (Bld) [#/Vol] 0.05 10*3/uL High <0.01 [facility] Comment on above: Order Comment: Speci men Type: BLOOD SPECIMENOrdering Facility: [facility] Address: [address] Performed By: #### 5 7021-8 ####[facility]CLIA [id number] [place] [address] [place] Nucleated RBC/100 WBC (Bld) [Ratio] 0.5 /100 WBC Normal [facility] Comment on above: Order Comment: Speci men Type: BLOOD SPECIMENOrdering Facility: [facility] Address: [address] Performed By: #### 5 7021-8 ####[facility]CLIA [id number] [place] [address] [place] Platelet mean volume (Bld) [Entitic vol] 9.7 fL Normal 9.0-12.7 [facility] Comment on above: Order Comment: Speci men Type: BLOOD SPECIMENOrdering Facility: [facility] Address: [address] Performed By: #### 5 7021-8 ####[facility]CLIA [id number] [place] [address] [place] Platelets (Bld) [#/Vol] 166 10*3/uL Normal 150-400 [facility] Comment on above: Order Comment: Speci men Type: BLOOD SPECIMENOrdering Facility: [facility] Address: [address] Performed By: #### 5 7021-8 ####[facility]CLIA [id number] [place] [address] [place] RBC (Bld) [#/Vol] 2.39 10*6/uL Low 4.20-6.00 [facility] Comment on above: Order Comment: Speci men Type: BLOOD SPECIMENOrdering Facility: [facility] Address: [address] Performed By: #### 5 7021-8 ####[facility]CLIA [id number] [place] [address] [place] WBC (Bld) [#/Vol] 9.66 10*3/uL Normal 3.70-11.00 [facility] Comment on above: Order Comment: Speci men Type: BLOOD SPECIMENOrdering Facility: [facility] Address: [address] [place] [address] Performed By: #### 5 7021-8 ####[facility]CLIA [id number] [place] [address] [place] Basophils (Bld) [#/Vol] 0.03 10*3/uL Normal <0.11 [facility] Comment on above: Order Comment: Speci men Type: BLOOD SPECIMENOrdering Facility: [facility] Address: [address] [place] [address] Performed By: #### 5 7021-8 ####[facility]CLIA [id number] [place] [address] [place] Basophils/100 WBC (Bld) 0.3 % Normal [facility] Comment on above: Order Comment: Speci men Type: BLOOD SPECIMENOrdering Facility: [facility] Address: [address] [place], [place] [address] Performed By: #### 5 7021-8 ####[facility] [id number] [place] [address] [place] Differential cell count method Nom (Bld) Auto Normal [facility] Comment on above: Order Comment: Speci men Type: BLOOD SPECIMENOrdering Facility: [facility] Address: [address] [place], [place] [address] Performed By: #### 5 7021-8 ####[facility]CL[facility] [id number] [place] [address] [place] Eosinophils (Bld) [#/Vol] 0.12 10*3/uL Normal <0.46 [facility] Comment on above: Order Comment: Speci men Type: BLOOD SPECIMENOrdering Facility: [facility] Address: [address] Performed By: #### 5 7021-8 ####[facility] [id number] [place] [address] [place] Eosinophils/100 WBC (Bld) 1.1 % Normal [facility] Comment on above: Order Comment: Speci men Type: BLOOD SPECIMENOrdering Facility: [facility] Address: [address] Performed By: #### 5 7021-8 ####[facility] [id number] [place] [address] [place] Erythrocyte distribution width (RBC) [Ratio] 15.8 % High 11.5-15.0 [facility] Comment on above: Order Comment: Speci men Type: BLOOD SPECIMENOrdering Facility: [facility] Address: [address] Performed By: #### 5 7021-8 ####[facility] [id number] [place] [address] [place] Hematocrit (Bld) [Volume fraction] 20.7 % Low 39.0-51.0 [facility] Comment on above: Order Comment: Speci men Type: BLOOD SPECIMENOrdering Facility: [facility] Address: [address] Performed By: #### 5 7021-8 ####[facility] [id number] [place] [address] [place] Hemoglobin (Bld) [Mass/Vol] 6.8 g/dL Low 13.0-17.0 [facility] Comment on above: Order Comment: Speci men Type: BLOOD SPECIMENOrdering Facility: [facility] Address: [address] Performed By: #### 5 7021-8 ####[facility] [id number] [place] [address] [place] Immature granulocytes (Bld) [#/Vol] 0.09 10*3/uL Normal <0.10 [facility] Comment on above: Order Comment: Speci men Type: BLOOD SPECIMENOrdering Facility: [facility] Address: [address] [place] [address] Performed By: #### 5 7021-8 ####[facility] [id number] [address] [place] Immature granulocytes/100 WBC (Bld) 0.8 % Normal [facility] Comment on above: Order Comment: Speci men Type: BLOOD SPECIMENOrdering Facility: [facility] Address: [address] [place] [address] Performed By: #### 5 7021-8 ####[facility] [id number] [place] [address] [place] Lymphocytes (Bld) [#/Vol] 2.20 10*3/uL Normal 1.00-4.00 [facility] Comment on above: Order Comment: Speci men Type: BLOOD SPECIMENOrdering Facility: [facility] Address: [address] [place] [address] Performed By: #### 5 7021-8 ####[facility] [id number] [address] [place] Lymphocytes/100 WBC (Bld) 20.4 % Normal [facility] Comment on above: Order Comment: Speci men Type: BLOOD SPECIMENOrdering Facility: [facility] Address: [address] [place] [address] Performed By: #### 5 7021-8 ####[facility] [id number] [place] [address] [place] MCH (RBC) [Entitic mass] 31.6 pg Normal 26.0-34.0 [facility] Comment on above: Order Comment: Speci men Type: BLOOD SPECIMENOrdering Facility: [facility] Address: [address] [place] [address] Performed By: #### 5 7021-8 ####[facility] [id number] [place] [address] [place] MCHC (RBC) [Mass/Vol] 32.9 g/dL Normal 30.5-36.0 [facility] Comment on above: Order Comment: Speci men Type: BLOOD SPECIMENOrdering Facility: [facility] Address: [address] [place] [address] Performed By: #### 5 7021-8 ####[facility] [id number] [place] [address] [place] MCV (RBC) [Entitic vol] 96.3 fL Normal 80.0-100.0 [facility] Comment on above: Order Comment: Speci men Type: BLOOD SPECIMENOrdering Facility: [facility] Address: [address] [place] [address] Performed By: #### 5 7021-8 ####[facility] [id number] [place] [address] [place] Monocytes (Bld) [#/Vol] 0.84 10*3/uL Normal <0.87 [facility] Comment on above: Order Comment: Speci men Type: BLOOD SPECIMENOrdering Facility: [facility] Address: [address] [place], [place] [address] Performed By: #### 5 7021-8 ####[facility] [id number] [place] [address] [place] Monocytes/100 WBC (Bld) 7.8 % Normal [facility] Comment on above: Order Comment: Speci men Type: BLOOD SPECIMENOrdering Facility: [facility] Address: [address] [place] [address] [place] [address] Performed By: #### 5 7021-8 ####[facility] LABCLIA [id number] [place] [address] [place] Neutrophils (Bld) [#/Vol] 7.51 10*3/uL High 1.45-7.50 [facility] Comment on above: Order Comment: Speci men Type: BLOOD SPECIMENOrdering Facility: [facility] Address: [address] Performed By: #### 5 7021-8 ####[facility] LABCLIA [id number] [place] [address] [place] Neutrophils/100 WBC (Bld) 69.6 % Normal [facility] Comment on above: Order Comment: Speci men Type: BLOOD SPECIMENOrdering Facility: [facility] Address: [address] Performed By: #### 5 7021-8 ####[facility] LABCLIA [id number] [place] [address] [place] Nucleated RBC (Bld) [#/Vol] 0.09 10*3/uL High <0.01 [facility] Comment on above: Order Comment: Speci men Type: BLOOD SPECIMENOrdering Facility: [facility] Address: [address] [place] [address] Performed By: #### 5 7021-8 ####[facility] LABCLIA [id number] [place] [address] [place] Nucleated RBC/100 WBC (Bld) [Ratio] 0.8 /100 WBC Normal [facility] Comment on above: Order Comment: Speci men Type: BLOOD SPECIMENOrdering Facility: [facility] Address: [address] [place] [address] Performed By: #### 5 7021-8 ####[facility] LABCLIA [id number] [place] [address] [place] Platelet mean volume (Bld) [Entitic vol] 10.1 fL Normal 9.0-12.7 [facility] Comment on above: Order Comment: Speci men Type: BLOOD SPECIMENOrdering Facility: [facility] Address: [address] [place], [place] [address] Performed By: #### 5 7021-8 ####[facility]CLIA [id number] [place] [address] [place] Platelets (Bld) [#/Vol] 186 10*3/uL Normal 150-400 [facility] Comment on above: Order Comment: Speci men Type: BLOOD SPECIMENOrdering Facility: [facility] Address: [address] [place], [place] [address] Performed By: #### 5 7021-8 ####[facility]CLIA [id number] [place] [address] [place] RBC (Bld) [#/Vol] 2.15 10*6/uL Low 4.20-6.00 [facility] Comment on above: Order Comment: Speci men Type: BLOOD SPECIMENOrdering Facility: [facility] Address: [address] [place], [place] [address] Performed By: #### 5 7021-8 ####[facility] LABCLIA [id number] [place] [address] [place] WBC (Bld) [#/Vol] 10.79 10*3/uL Normal 3.70-11.00 [facility] Comment on above: Order Comment: Speci men Type: BLOOD SPECIMENOrdering Facility: [facility] Address: [address] [place], [place] [address] Performed By: #### 5 7021-8 ####[facility]CLIA [id number] [place] [address] [place] CONSULT PROGon 07-08-2023 CONSULT PROG Normal [facility] CONSULT PROG Normal [facility] CONSULT PROG Normal [facility] Comprehensive metabolic 2000 panelon 07-08-2023 Albumin [Mass/Vol] 2.6 g/dL Low 3.9-4.9 [facility] Comment on above: Order Comment: Speci men Type: BLOOD SPECIMENOrdering Facility: [facility] Address: [address] [place] [address] Performed By: #### 1 9123-9, 2777-, 27317-4 ####[facility]CLIA [id number] [place] [address] [place] ALP [Catalytic activity/Vol] 66 U/L Normal 38-113 [facility] Comment on above: Order Comment: Speci men Type: BLOOD SPECIMENOrdering Facility: [facility] Address: [address] [place] [address] Performed By: #### 1 9123-9, 2777, 50307-0 ####[facility]CLIA [id number] [place] [address] [place] ALT [Catalytic activity/Vol] 24 U/L Normal 10-54 [facility] Comment on above: Order Comment: Speci men Type: BLOOD SPECIMENOrdering Facility: [facility] Address: [address] [place] [address] Performed By: #### 1 9123-9, 2777, 00384-1 ####[facility]CLIA [id number] [place] [address] [place] Anion gap [Moles/Vol] 6 mmol/L Low 9-18 [facility] Comment on above: Order Comment: Speci men Type: BLOOD SPECIMENOrdering Facility: [facility] Address: [address] [place] [address] Performed By: #### 1 9123-9, 2777-, 44143-6 ####[facility] LABCLIA [id number] [place] [address] [place] AST [Catalytic activity/Vol] 16 U/L Normal 14-40 [facility] Comment on above: Order Comment: Speci men Type: BLOOD SPECIMENOrdering Facility: [facility] Address: [address] [place] [address] Performed By: #### 1 9123-9, 2777-, 01989-6 ####[facility]CLIA [id number] [place] [address] [place] Bilirubin [Mass/Vol] 0.3 mg/dL Normal 0.2-1.3 [facility] Comment on above: Order Comment: Speci men Type: BLOOD SPECIMENOrdering Facility: [facility] Address: [address] [place] [address] Performed By: #### 1 9123-9, 27704-09, 45921-8 ####[facility]CLIA [id number] [place] [address] [place] Calcium [Mass/Vol] 8.9 mg/dL Normal 8.5-10.2 [facility] Comment on above: Order Comment: Speci men Type: BLOOD SPECIMENOrdering Facility: [facility] Address: [address] [place], [place] [address] Performed By: #### 1 9123-9, 27704-09, 71169-4 ####[facility] LABCLIA [id number] [place] [address] [place] Chloride [Moles/Vol] 109 mmol/L High 97-105 [facility] Comment on above: Order Comment: Speci men Type: BLOOD SPECIMENOrdering Facility: [facility] Address: [address] [place], [place] [address] Performed By: #### 1 9123-9, 27704-09, 00034-2 ####[facility]CLIA [id number] [place] [address] [place] CO2 [Moles/Vol] 24 mmol/L Normal 22-30 [facility] Comment on above: Order Comment: Speci tania Type: BLOOD SPECIMENOrdering Facility: [facility] Address: [address] [place] [address] Performed By: #### 1 9123-9, 27704-09, ####[facility]CLIA [id number] [place] [address] [place] Creatinine [Mass/Vol] 1.77 mg/dL High 0.73-1.22 [facility] Comment on above: Order Comment: Speci men Type: BLOOD SPECIMENOrdering Facility: [facility] Address: [address] [place] [address] Performed By: #### 1 9123-9, 2776-10, ####[facility]CLIA [id number] [place] [address] [place] Creatinine and Glomerular filtration rate.predicted panel (S/P/Bld) 44 mL/min/1.73m??? Low >=60 [facility] Comment on above: Order Comment: Iesha marin Type: BLOOD SPECIMENOrdering Facility: [facility] Address: [address] [place] [address] Result Comment: Dayan mated Glomerular Filtration Rate (eGFR) is calculated using the 2020 CKD-EPI creatinine equation. This equation utilizes serum creatinine, sex, and age as parameters. The creatinine assay has traceable calibration to isotope dilution-mass spectrometry. Refer to KDIGO guidelines for clinical interpretation. In patients with unstable renal function, e.g. those with acute kidney injury, the eGFR may not accurately reflect actual GFR. Performed By: #### 1 9123-9, 2776-10, ####[facility] LABCLIA [id number] [place] [address] [place] Glucose [Mass/Vol] 109 mg/dL High 74-99 [facility] Comment on above: Order Comment: Speci men Type: BLOOD SPECIMENOrdering Facility: [facility] Address: [place] [address] Result Comment: The [place] Diabetes Association (ADA) provides guidance for cutoff values for fasting glucose and random glucose. The ADA defines fasting as no caloric intake for at least 8 hours. Fasting plasma glucose results between 100 to 125 mg/dL indicate increased risk for diabetes (prediabetes).Fasting plasma glucose results greater than or equal to 126 mg/dL meet the criteria for diagnosis of diabetes. In the absence of unequivocal hyperglycemia, results should be confirmed by repeat testing. In a patient with classic symptoms of hyperglycemia or hyperglycemic crisis, random plasma glucose results greater than or equal to 200 mg/dL meet the criteria for diagnosis of diabetes.Reference: Standards of Medical Care in Diabetes 2016, [place] [employer]. Diabetes Care. 2016.39(Suppl 1). Performed By: #### 1 9123-9, 2777, ####[facility]CLIA [id number] [place] [address] [place] Potassium [Moles/Vol] 4.0 mmol/L Normal 3.7-5.1 [facility] Comment on above: Order Comment: Speci men Type: BLOOD SPECIMENOrdering Facility: [facility] Address: [address] [place] [id number] Performed By: #### 1 9123-9, 2776-10, ####[facility] LABCLIA [id number] [place] [address] [place] Protein [Mass/Vol] 4.7 g/dL Low 6.3-8.0 [facility] Comment on above: Order Comment: Speci men Type: BLOOD SPECIMENOrdering Facility: [facility] Address: [place] [address] Performed By: #### 1 9123-9, 27704-09, ####[facility] LABCLIA [id number] [place] [address] [place] Sodium [Moles/Vol] 139 mmol/L Normal 136-144 [facility] Comment on above: Order Comment: Speci men Type: BLOOD SPECIMENOrdering Facility: [facility] Address: [address] [place] [id number] Performed By: #### 1 9123-9, 2777-, 49554-0 ####[facility] LABCLIA [id number] [place] [address] [place] Urea nitrogen [Mass/Vol] 40 mg/dL High 9-24 [facility] Comment on above: Order Comment: Speci men Type: BLOOD SPECIMENOrdering Facility: [facility] Address: [address] [place], [place] [address] Performed By: #### 1 9123-9, 2777, 46685-1 ####[facility]CLIA [id number] [place] [address] [place] Magnesium SerPl-mCncon 07-08 Magnesium [Mass/Vol] 2.2 mg/dL Normal 1.7-2.3 [facility] Comment on above: Order Comment: Speci men Type: BLOOD SPECIMENOrdering Facility: [facility] Address: [address] [place], [place] [address] Performed By: #### 1 9123-9, 2777, 10346-5 ####[facility] LABIA [id number] [place] [address] [place] PT panel Coag (PPP)on 2022 INR Coag (PPP) [Relative time] 1.0 {INR} Normal 0.9-1.3 [facility] Comment on above: Order Comment: Speci men Type: BLOOD SPECIMENOrdering Facility: [facility] Address: [address] [place], [place] [address] Result Comment: Ella min K Antagonist (VKA) Therapeutic Range: INR 2 to 3 (Target INR of 2.5)Note: For patients treated with VKA drugs, such as warfarin, the [place] [employer] 2012 Guideline recommends a therapeutic INR range of 2 to 3 (target INR of 2.5). This recommendation includes high-risk patients with antiphospholipid syndrome with previous arterial or venous thromboembolism, current-generation mechanical or bioprosthetic aortic heart valve replacement.Note: Patients with mechanical aortic valve replacement and additional risk factors for thromboembolic events (atrial fibrillation, previous thromboembolism, LV dysfunction, hypercoagulable conditions) or an older generation mechanical AVR (i.e., ball in-Cage) or any mechanical MVR should have a INR therapeutic range of 2.5 to 3.5 (target INR of 3).Cee GH, et al. Chest 2012, 141:7S-47SNisharamis RA, et al. [facility] 2017, 70: 252-289 Performed By: #### 1 4979-9, 84808-9 ####[facility]CLIA [id number] [place] [address] [place] PT Coag (PPP) [Time] 10.6 s Normal 9.7-13.0 [facility] Comment on above: Order Comment: Speci men Type: BLOOD SPECIMENOrdering Facility: [facility] Address: [address] [place], [place] [address] Performed By: #### 1 4979-9, 01386-7 ####[facility] LABCLIA [id number] [place] [address] [place] Phosphate SerPl-mCncon 07-08 Phosphate [Mass/Vol] 2.8 mg/dL Normal 2.7-4.8 [facility] Comment on above: Order Comment: Speci men Type: BLOOD SPECIMENOrdering Facility: [facility] Address: [address] [place] [address] Performed By: #### 1 9123-9, 2777-1, 53547-8 ####[facility] LABCLIA [id number] [address] [address] [place] THERAPY NTon 07-08-2023 THERAPY NT Normal [facility] THERAPY NT Normal [facility] XR CHEST 1V FRONTAL PORTon 0 07-08-2023 XR CHEST 1V FRONTAL PORT Normal [facility] XR CHEST 1V FRONTAL PORT Normal [facility] aPTT PPPon 07-08-2023 aPTT Coag (PPP) [Time] 25.2 s Normal 23.0-32.4 [facility] Comment on above: Order Comment: Speci men Type: BLOOD SPECIMENOrdering Facility: [facility] Address: [address] [place] [address] Performed By: #### 1 4979-9, 02611-3 ####[facility] LABCLIA [id number] [place] [address] [place] ALLIED HEALTHon 07-07-2023 ALLIED HEALTH Normal [facility] ALLIED HEALTH Normal [facility] CBC W Auto Differential pane l (Bld)on 07-07-2023 Anisocytosis Ql (Bld) Present Normal [facility] Comment on above: Order Comment: Speci men Type: BLOOD SPECIMENOrdering Facility: [facility] Address: [address] [place], [place] [address] Performed By: #### 5 7021-8 ####[facility] LABCLIA [id number] [place] [address] [place] Basophils (Bld) [#/Vol] 0.16 10*3/uL High <0.11 [facility] Comment on above: Order Comment: Speci men Type: BLOOD SPECIMENOrdering Facility: [facility] Address: [address] [place], [place] [address] Performed By: #### 5 7021-8 ####[facility] LABCLIA [id number] [place] [address] [place] Basophils/100 WBC (Bld) 1.0 % Normal [facility] Comment on above: Order Comment: Speci men Type: BLOOD SPECIMENOrdering Facility: [facility] Address: [address] [place], [place] [address] Performed By: #### 5 7021-8 ####[facility] LABCLIA [id number] [place] [address] [place] Differential cell count method Nom (Bld) Manual Normal [facility] Comment on above: Order Comment: Speci men Type: BLOOD SPECIMENOrdering Facility: [facility] Address: [address] [place] [address] Performed By: #### 5 7021-8 ####[facility]CLIA [id number] [place] [address] [place] Eosinophils (Bld) [#/Vol] 0.00 10*3/uL Normal <0.46 [facility] Comment on above: Order Comment: Speci men Type: BLOOD SPECIMENOrdering Facility: [facility] Address: [address] [place] [address] Performed By: #### 5 7021-8 ####[facility]CLIA [id number] [place] [address] [place] Eosinophils/100 WBC (Bld) 0.0 % Normal [facility] Comment on above: Order Comment: Speci men Type: BLOOD SPECIMENOrdering Facility: [facility] Address: [address] [place] [address] Performed By: #### 5 7021-8 ####[facility]CLIA [id number] [place] [address] [place] Erythrocyte distribution width (RBC) [Ratio] 15.6 % High 11.5-15.0 [facility] Comment on above: Order Comment: Speci men Type: BLOOD SPECIMENOrdering Facility: [facility] Address: [address] [place], [place] [address] Performed By: #### 5 7021-8 ####[facility]CLIA [id number] [place] [address] [place] Hematocrit (Bld) [Volume fraction] 23.9 % Low 39.0-51.0 [facility] Comment on above: Order Comment: Speci men Type: BLOOD SPECIMENOrdering Facility: [facility] Address: [address] Performed By: #### 5 7021-8 ####[facility]CLIA [id number] [place] [address] [place] Hemoglobin (Bld) [Mass/Vol] 7.6 g/dL Low 13.0-17.0 [facility] Comment on above: Order Comment: Speci men Type: BLOOD SPECIMENOrdering Facility: [facility] Address: [address] Performed By: #### 5 7021-8 ####[facility]CLIA [id number] [place] [address] [place] Lymphocytes (Bld) [#/Vol] 4.21 10*3/uL High 1.00-4.00 [facility] Comment on above: Order Comment: Speci men Type: BLOOD SPECIMENOrdering Facility: [facility] Address: [address] [place], [place] [address] Performed By: #### 5 7021-8 ####[facility]CLIA [id number] [place] [address] [place] Lymphocytes/100 WBC (Bld) 26.0 % Normal [facility] Comment on above: Order Comment: Speci men Type: BLOOD SPECIMENOrdering Facility: [facility] Address: [address] [place] [address] Performed By: #### 5 7021-8 ####[facility] LABIA [id number] [place] [address] [place] MCH (RBC) [Entitic mass] 31.4 pg Normal 26.0-34.0 [facility] Comment on above: Order Comment: Speci men Type: BLOOD SPECIMENOrdering Facility: [facility] Address: [address] Performed By: #### 5 7021-8 ####[facility] LABCLIA [id number] [place] [address] [place] MCHC (RBC) [Mass/Vol] 31.8 g/dL Normal 30.5-36.0 [facility] Comment on above: Order Comment: Speci men Type: BLOOD SPECIMENOrdering Facility: [facility] Address: [address] [place] [address] Performed By: #### 5 7021-8 ####[facility] LABIA [id number] [place] [address] [place] MCV (RBC) [Entitic vol] 98.8 fL Normal 80.0-100.0 [facility] Comment on above: Order Comment: Speci men Type: BLOOD SPECIMENOrdering Facility: [facility] Address: [address] [place] [address] Performed By: #### 5 7021-8 ####[facility] LABIA [id number] [place] [address] [place] Monocytes (Bld) [#/Vol] 0.97 10*3/uL High <0.87 [facility] Comment on above: Order Comment: Speci men Type: BLOOD SPECIMENOrdering Facility: [facility] Address: [address] [place], [place] [address] Performed By: #### 5 7021-8 ####[facility] LABIA [id number] [address] [place] Monocytes/100 WBC (Bld) 6.0 % Normal [facility] Comment on above: Order Comment: Speci men Type: BLOOD SPECIMENOrdering Facility: [facility] Address: [address] [place], [place] [address] Performed By: #### 5 7021-8 ####[facility] LABIA [id number] [place] [address] [place] Neutrophils (Bld) [#/Vol] 10.86 10*3/uL High 1.45-7.50 [facility] Comment on above: Order Comment: Speci men Type: BLOOD SPECIMENOrdering Facility: [facility] Address: [address] Performed By: #### 5 7021-8 ####[facility]CLIA [id number] [place] [address] [place] Neutrophils/100 WBC (Bld) 67.0 % Normal [facility] Comment on above: Order Comment: Speci men Type: BLOOD SPECIMENOrdering Facility: [facility] Address: [address] Performed By: #### 5 7021-8 ####[facility]CLIA [id number] [place] [address] [place] Nucleated RBC (Bld) [#/Vol] 10*3/uL Normal <0.01 [facility] Comment on above: Order Comment: Speci men Type: BLOOD SPECIMENOrdering Facility: [facility] Address: [address] Performed By: #### 5 7021-8 ####[facility]CLIA [id number] [place] [address] [place] Nucleated RBC/100 WBC (Bld) [Ratio] 0.0 /100 WBC Normal [facility] Comment on above: Order Comment: Speci men Type: BLOOD SPECIMENOrdering Facility: [facility] Address: [address] [place] [address] Performed By: #### 5 7021-8 ####[facility]CLIA [id number] [place] [address] [place] Ovalocytes LM Ql (Bld) Few Normal [facility] Comment on above: Order Comment: Speci men Type: BLOOD SPECIMENOrdering Facility: [facility] Address: [address] Performed By: #### 5 7021-8 ####[facility]CLIA [id number] [place] [address] [place] Platelet mean volume (Bld) [Entitic vol] 9.9 fL Normal 9.0-12.7 [facility] Comment on above: Order Comment: Speci men Type: BLOOD SPECIMENOrdering Facility: [facility] Address: [address] [place], [place] [address] Performed By: #### 5 7021-8 ####[facility] LABIA [id number] [place] [address] [place] Platelets (Bld) [#/Vol] 216 10*3/uL Normal 150-400 [facility] Comment on above: Order Comment: Speci men Type: BLOOD SPECIMENOrdering Facility: [facility] Address: [address] [place], [place] [address] Performed By: #### 5 7021-8 ####[facility] LABIA [id number] [place] [address] [place] Platelets Estimate (Bld) [#/Vol] Adequate Normal [facility] Comment on above: Order Comment: Speci men Type: BLOOD SPECIMENOrdering Facility: [facility] Address: [address] [place], [place] [address] Performed By: #### 5 7021-8 ####[facility] LABIA [id number] [place] [address] [place] Polychromasia LM Ql (Bld) Slight Normal [facility] Comment on above: Order Comment: Speci men Type: BLOOD SPECIMENOrdering Facility: [facility] Address: [address] [place] [address] Performed By: #### 5 7021-8 ####[facility] LABIA [id number] [place] [address] [place] RBC (Bld) [#/Vol] 2.42 10*6/uL Low 4.20-6.00 [facility] Comment on above: Order Comment: Speci men Type: BLOOD SPECIMENOrdering Facility: [facility] Address: [address] [place], [place] [address] Performed By: #### 5 7021-8 ####[facility] LABCLIA [id number] [place] [address] [place] [facility] RBC FRAGMENTS Few Abnormal None Seen [facility] Comment on above: Order Comment: Speci men Type: BLOOD SPECIMENOrdering Facility: [facility] Address: [address] [place], [place] [address] Performed By: #### 5 7021-8 ####[facility] LABCLIA [id number] [place] [address] [place] RED CELL MORPH Reviewed: see result s of individual morphologies Normal [facility] Comment on above: Order Comment: Speci men Type: BLOOD SPECIMENOrdering Facility: [facility] Address: [address] [place], [place] [address] Performed By: #### 5 7021-8 ####[facility]CLIA [id number] [place] [address] [place] WBC (Bld) [#/Vol] 16.21 10*3/uL High 3.70-11.00 [facility] Comment on above: Order Comment: Speci men Type: BLOOD SPECIMENOrdering Facility: [facility] Address: [address] [place] [address] Performed By: #### 5 7021-8 ####[facility] LABCLIA [id number] [place] [address] [place] Basophils (Bld) [#/Vol] 0.05 10*3/uL Normal <0.11 [facility] Comment on above: Order Comment: Speci men Type: BLOOD SPECIMENOrdering Facility: [facility] Address: [address] [place], [place] [address] Performed By: #### 5 7021-8 ####[facility]CLIA [id number] [place] [address] [place] Basophils/100 WBC (Bld) 0.4 % Normal [facility] Comment on above: Order Comment: Speci men Type: BLOOD SPECIMENOrdering Facility: [facility] Address: [address] [place] [address] Performed By: #### 5 7021-8 ####[facility]CLIA [id number] [place] [address] [place] Differential cell count method Nom (Bld) Auto Normal [facility] Comment on above: Order Comment: Speci men Type: BLOOD SPECIMENOrdering Facility: [facility] Address: [address] [place] [address] Performed By: #### 5 7021-8 ####[facility] LABCLIA [id number] [place] [address] [place] Eosinophils (Bld) [#/Vol] 0.12 10*3/uL Normal <0.46 [facility] Comment on above: Order Comment: Speci men Type: BLOOD SPECIMENOrdering Facility: [facility] Address: [address] [place] [address] Performed By: #### 5 7021-8 ####[facility] LABCLIA [id number] [address] [place] Eosinophils/100 WBC (Bld) 1.0 % Normal [facility] Comment on above: Order Comment: Speci men Type: BLOOD SPECIMENOrdering Facility: [facility] Address: [address] [place], [place] [address] Performed By: #### 5 7021-8 ####[facility] LABCLIA [id number] [place] [address] [place] Erythrocyte distribution width (RBC) [Ratio] 15.9 % High 11.5-15.0 [facility] Comment on above: Order Comment: Speci men Type: BLOOD SPECIMENOrdering Facility: [facility] Address: [address] Performed By: #### 5 7021-8 ####[facility] LABIA [id number] [place] [address] [place] Hematocrit (Bld) [Volume fraction] 23.6 % Low 39.0-51.0 [facility] Comment on above: Order Comment: Speci men Type: BLOOD SPECIMENOrdering Facility: [facility] Address: [address] Performed By: #### 5 7021-8 ####[facility] LABIA [id number] [place] [address] [place] Hemoglobin (Bld) [Mass/Vol] 7.4 g/dL Low 13.0-17.0 [facility] Comment on above: Order Comment: Speci men Type: BLOOD SPECIMENOrdering Facility: [facility] Address: [address] Performed By: #### 5 7021-8 ####[facility] LABIA [id number] [place] [address] [place] Immature granulocytes (Bld) [#/Vol] 0.15 10*3/uL High <0.10 [facility] Comment on above: Order Comment: Speci men Type: BLOOD SPECIMENOrdering Facility: [facility] Address: [address] Performed By: #### 5 7021-8 ####[facility] LABIA [id number] [place] [address] [place] Immature granulocytes/100 WBC (Bld) 1.2 % Normal [facility] Comment on above: Order Comment: Speci men Type: BLOOD SPECIMENOrdering Facility: [facility] Address: [address] Performed By: #### 5 7021-8 ####[facility] LABCLIA [id number] [place] [address] [place] Lymphocytes (Bld) [#/Vol] 2.15 10*3/uL Normal 1.00-4.00 [facility] Comment on above: Order Comment: Speci men Type: BLOOD SPECIMENOrdering Facility: [facility] Address: [address] [place] [address] Performed By: #### 5 7021-8 ####[facility] LABIA [id number] [address] [place] Lymphocytes/100 WBC (Bld) 17.0 % Normal [facility] Comment on above: Order Comment: Speci men Type: BLOOD SPECIMENOrdering Facility: [facility] Address: [address] [place] [address] Performed By: #### 5 7021-8 ####[facility] LABIA [id number] [address] [place] MCH (RBC) [Entitic mass] 30.3 pg Normal 26.0-34.0 [facility] Comment on above: Order Comment: Speci men Type: BLOOD SPECIMENOrdering Facility: [facility] Address: [address] [place] [address] Performed By: #### 5 7021-8 ####[facility] LABIA [id number] [address] [place] MCHC (RBC) [Mass/Vol] 31.4 g/dL Normal 30.5-36.0 [facility] Comment on above: Order Comment: Speci men Type: BLOOD SPECIMENOrdering Facility: [facility] Address: [address] [place] [address] Performed By: #### 5 7021-8 ####[facility] LABIA [id number] [place] [address] [place] MCV (RBC) [Entitic vol] 96.7 fL Normal 80.0-100.0 [facility] Comment on above: Order Comment: Speci men Type: BLOOD SPECIMENOrdering Facility: [facility] Address: [address] [place] [address] Performed By: #### 5 7021-8 ####[facility] LABCLIA [id number] [place] [address] [place] Monocytes (Bld) [#/Vol] 0.83 10*3/uL Normal <0.87 [facility] Comment on above: Order Comment: Speci men Type: BLOOD SPECIMENOrdering Facility: [facility] Address: [address] [place] [address] Performed By: #### 5 7021-8 ####[facility] LABCLIA [id number] [place] [address] [place] Monocytes/100 WBC (Bld) 6.6 % Normal [facility] Comment on above: Order Comment: Speci men Type: BLOOD SPECIMENOrdering Facility: [facility] Address: [address] [place], [place] [address] Performed By: #### 5 7021-8 ####[facility] LABCLIA [id number] [place] [address] [place] Neutrophils (Bld) [#/Vol] 9.31 10*3/uL High 1.45-7.50 [facility] Comment on above: Order Comment: Speci men Type: BLOOD SPECIMENOrdering Facility: [facility] Address: [address] [place], [place] [address] Performed By: #### 5 7021-8 ####[facility] LABCLIA [id number] [place] [address] [place] Neutrophils/100 WBC (Bld) 73.8 % Normal [facility] Comment on above: Order Comment: Speci men Type: BLOOD SPECIMENOrdering Facility: [facility] Address: [address] [place] [address], [place] Performed By: #### 5 7021-8 ####[facility] LABCLIA [id number] [place] [address] [place] Nucleated RBC (Bld) [#/Vol] 0.09 10*3/uL High <0.01 [facility] Comment on above: Order Comment: Speci men Type: BLOOD SPECIMENOrdering Facility: [facility] Address: [address] [place] [address] Performed By: #### 5 7021-8 ####[facility] LABCLIA [id number] [place] [address] [place] Nucleated RBC/100 WBC (Bld) [Ratio] 0.7 /100 WBC Normal [facility] Comment on above: Order Comment: Speci men Type: BLOOD SPECIMENOrdering Facility: [facility] Address: [address] [place] [address] Performed By: #### 5 7021-8 ####[facility] LABIA [id number] [place] [address] [place] Platelet mean volume (Bld) [Entitic vol] 10.1 fL Normal 9.0-12.7 [facility] Comment on above: Order Comment: Speci men Type: BLOOD SPECIMENOrdering Facility: [facility] Address: [address] [place] [address] Performed By: #### 5 7021-8 ####[facility] LABCLIA [id number] [place] [address] [place] Platelets (Bld) [#/Vol] 212 10*3/uL Normal 150-400 [facility] Comment on above: Order Comment: Speci men Type: BLOOD SPECIMENOrdering Facility: [facility] Address: [address] [place] [address] Performed By: #### 5 7021-8 ####[facility] LABCLIA [id number] [place] [address] [place] RBC (Bld) [#/Vol] 2.44 10*6/uL Low 4.20-6.00 [facility] Comment on above: Order Comment: Speci men Type: BLOOD SPECIMENOrdering Facility: [facility] Address: [address] [place] [address] Performed By: #### 5 7021-8 ####[facility] LABCLIA [id number] [place] [address] [place] WBC (Bld) [#/Vol] 12.61 10*3/uL High 3.70-11.00 [facility] Comment on above: Order Comment: Speci men Type: BLOOD SPECIMENOrdering Facility: [facility] Address: [address] [place] [address] Performed By: #### 5 7021-8 ####[facility] LABCLIA [id number] [place] [address] [place] Basophils (Bld) [#/Vol] 0.07 10*3/uL Normal <0.11 [facility] Comment on above: Order Comment: Speci men Type: BLOOD SPECIMENOrdering Facility: [facility] Address: [address] [place] [address] Performed By: #### 5 7021-8 ####[facility] LABCLIA [id number] [place] [address] [place] Basophils/100 WBC (Bld) 0.5 % Normal [facility] Comment on above: Order Comment: Speci men Type: BLOOD SPECIMENOrdering Facility: [facility] Address: [address] [place], [place] [address] Performed By: #### 5 7021-8 ####[facility] LABCLIA [id number] [place] [address] [place] Differential cell count method Nom (Bld) Auto Normal [facility] Comment on above: Order Comment: Speci men Type: BLOOD SPECIMENOrdering Facility: [facility] Address: [address] Performed By: #### 5 7021-8 ####[facility] LABCLIA [id number] [place] [address] [place] Eosinophils (Bld) [#/Vol] 0.15 10*3/uL Normal <0.46 [facility] Comment on above: Order Comment: Speci men Type: BLOOD SPECIMENOrdering Facility: [facility] Address: [address] [place] [address] Performed By: #### 5 7021-8 ####[facility] LABCLIA [id number] [address] [place] Eosinophils/100 WBC (Bld) 1.2 % Normal [facility] Comment on above: Order Comment: Speci men Type: BLOOD SPECIMENOrdering Facility: [facility] Address: [address] Performed By: #### 5 7021-8 ####[facility] LABIA [id number] [place] [address] [place] Erythrocyte distribution width (RBC) [Ratio] 15.6 % High 11.5-15.0 [facility] Comment on above: Order Comment: Speci men Type: BLOOD SPECIMENOrdering Facility: [facility] Address: [address] Performed By: #### 5 7021-8 ####[facility] LABIA [id number] [address] [place] Hematocrit (Bld) [Volume fraction] 24.0 % Low 39.0-51.0 [facility] Comment on above: Order Comment: Speci men Type: BLOOD SPECIMENOrdering Facility: [facility] Address: [address] Performed By: #### 5 7021-8 ####[facility] LABCLIA [id number] [place] [address] [place] Hemoglobin (Bld) [Mass/Vol] 7.6 g/dL Low 13.0-17.0 [facility] Comment on above: Order Comment: Speci men Type: BLOOD SPECIMENOrdering Facility: [facility] Address: [address] [place] [address] Performed By: #### 5 7021-8 ####[facility] LABCLIA [id number] [place] [address] [place] Immature granulocytes (Bld) [#/Vol] 0.16 10*3/uL High <0.10 [facility] Comment on above: Order Comment: Speci men Type: BLOOD SPECIMENOrdering Facility: [facility] Address: [address] [place] [address] Performed By: #### 5 7021-8 ####[facility] LABIA [id number] [place] [address] [place] Immature granulocytes/100 WBC (Bld) 1.2 % Normal [facility] Comment on above: Order Comment: Speci men Type: BLOOD SPECIMENOrdering Facility: [facility] Address: [address] [place] [address] Performed By: #### 5 7021-8 ####[facility] LABIA [id number] [place] [address] [place] Lymphocytes (Bld) [#/Vol] 2.73 10*3/uL Normal 1.00-4.00 [facility] Comment on above: Order Comment: Speci men Type: BLOOD SPECIMENOrdering Facility: [facility] Address: [address] [place] [address] Performed By: #### 5 7021-8 ####[facility] LABIA [id number] [place] [address] [place] Lymphocytes/100 WBC (Bld) 21.2 % Normal [facility] Comment on above: Order Comment: Speci men Type: BLOOD SPECIMENOrdering Facility: [facility] Address: [address] [place], [place] [address] Performed By: #### 5 7021-8 ####[facility] LABIA [id number] [place] [address] [place] MCH (RBC) [Entitic mass] 30.2 pg Normal 26.0-34.0 [facility] Comment on above: Order Comment: Speci men Type: BLOOD SPECIMENOrdering Facility: [facility] Address: [address] [place], [place] [address] Performed By: #### 5 7021-8 ####[facility] LABIA [id number] [place] [address] [place] MCHC (RBC) [Mass/Vol] 31.7 g/dL Normal 30.5-36.0 [facility] Comment on above: Order Comment: Speci men Type: BLOOD SPECIMENOrdering Facility: [facility] Address: [address] [place], [place] [address] Performed By: #### 5 7021-8 ####[facility] LABIA [id number] [place] [address] [place] MCV (RBC) [Entitic vol] 95.2 fL Normal 80.0-100.0 [facility] Comment on above: Order Comment: Speci men Type: BLOOD SPECIMENOrdering Facility: [facility] Address: [address] [place], [place] [address] Performed By: #### 5 7021-8 ####[facility] LABIA [id number] [place] [address] [place] Monocytes (Bld) [#/Vol] 0.94 10*3/uL High <0.87 [facility] Comment on above: Order Comment: Speci men Type: BLOOD SPECIMENOrdering Facility: [facility] Address: [address] [place] [address] Performed By: #### 5 7021-8 ####[facility] LABCLIA [id number] [place] [address] [place] Monocytes/100 WBC (Bld) 7.3 % Normal [facility] Comment on above: Order Comment: Speci men Type: BLOOD SPECIMENOrdering Facility: [facility] Address: [address] Performed By: #### 5 7021-8 ####[facility] LABCLIA [id number] [place] [address] [place] Neutrophils (Bld) [#/Vol] 8.83 10*3/uL High 1.45-7.50 [facility] Comment on above: Order Comment: Speci men Type: BLOOD SPECIMENOrdering Facility: [facility] Address: [address] Performed By: #### 5 7021-8 ####[facility] LABIA [id number] [place] [address] [place] Neutrophils/100 WBC (Bld) 68.6 % Normal [facility] Comment on above: Order Comment: Speci men Type: BLOOD SPECIMENOrdering Facility: [facility] Address: [address] [place] [address] Performed By: #### 5 7021-8 ####[facility] LABIA [id number] [place] [address] [place] Nucleated RBC (Bld) [#/Vol] 0.10 10*3/uL High <0.01 [facility] Comment on above: Order Comment: Speci men Type: BLOOD SPECIMENOrdering Facility: [facility] Address: [address] Performed By: #### 5 7021-8 ####[facility] LABIA [id number] [place] [address] [place] Nucleated RBC/100 WBC (Bld) [Ratio] 0.8 /100 WBC Normal [facility] Comment on above: Order Comment: Speci men Type: BLOOD SPECIMENOrdering Facility: [facility] Address: [address] [place] [address] Performed By: #### 5 7021-8 ####[facility] LABCLIA [id number] [place] [address] [place] Platelet mean volume (Bld) [Entitic vol] 9.8 fL Normal 9.0-12.7 [facility] Comment on above: Order Comment: Speci men Type: BLOOD SPECIMENOrdering Facility: [facility] Address: [address] [place] [address] Performed By: #### 5 7021-8 ####[facility] LABCLIA [id number] [place] [address] [place] Platelets (Bld) [#/Vol] 223 10*3/uL Normal 150-400 [facility] Comment on above: Order Comment: Speci men Type: BLOOD SPECIMENOrdering Facility: [facility] Address: [address] [place], [place] [address] Performed By: #### 5 7021-8 ####[facility] LABIA [id number] [place] [address] [place] RBC (Bld) [#/Vol] 2.52 10*6/uL Low 4.20-6.00 [facility] Comment on above: Order Comment: Speci men Type: BLOOD SPECIMENOrdering Facility: [facility] Address: [address] [place], [place] [address] Performed By: #### 5 7021-8 ####[facility] LABCLIA [id number] [place] [address] [place] WBC (Bld) [#/Vol] 12.88 10*3/uL High 3.70-11.00 [facility] Comment on above: Order Comment: Speci men Type: BLOOD SPECIMENOrdering Facility: [facility] Address: [address] Performed By: #### 5 7021-8 ####[facility] LABCLIA [id number] [place] [address] [place] Basophils (Bld) [#/Vol] 0.08 10*3/uL Normal <0.11 [facility] Comment on above: Order Comment: Speci men Type: BLOOD SPECIMENOrdering Facility: [facility] Address: [address] [place] [address] Performed By: #### 5 7021-8 ####[facility] LABCLIA [id number] [place] [address] [place] Basophils/100 WBC (Bld) 0.5 % Normal [facility] Comment on above: Order Comment: Speci men Type: BLOOD SPECIMENOrdering Facility: [facility] Address: [address] Performed By: #### 5 7021-8 ####[facility] LABCLIA [id number] [place] [address] [place] Differential cell count method Nom (Bld) Auto Normal [facility] Comment on above: Order Comment: Speci men Type: BLOOD SPECIMENOrdering Facility: [facility] Address: [address] Performed By: #### 5 7021-8 ####[facility] LABCLIA [id number] [place] [address] [place] Eosinophils (Bld) [#/Vol] 0.10 10*3/uL Normal <0.46 [facility] Comment on above: Order Comment: Speci men Type: BLOOD SPECIMENOrdering Facility: [facility] Address: [address] Performed By: #### 5 7021-8 ####[facility] LABCLIA [id number] [place] [address] [place] Eosinophils/100 WBC (Bld) 0.7 % Normal [facility] Comment on above: Order Comment: Speci men Type: BLOOD SPECIMENOrdering Facility: [facility] Address: [address] [place] [address] Performed By: #### 5 7021-8 ####[facility] LABIA [id number] [place] [address] [place] Erythrocyte distribution width (RBC) [Ratio] 15.5 % High 11.5-15.0 [facility] Comment on above: Order Comment: Speci men Type: BLOOD SPECIMENOrdering Facility: [facility] Address: [address] [place] [address] Performed By: #### 5 7021-8 ####[facility] LABIA [id number] [place] [address] [place] Hematocrit (Bld) [Volume fraction] 25.6 % Low 39.0-51.0 [facility] Comment on above: Order Comment: Speci men Type: BLOOD SPECIMENOrdering Facility: [facility] Address: [address] [place], [place] [address] Performed By: #### 5 7021-8 ####[facility] LABIA [id number] [place] [address] [place] Hemoglobin (Bld) [Mass/Vol] 8.3 g/dL Low 13.0-17.0 [facility] Comment on above: Order Comment: Speci men Type: BLOOD SPECIMENOrdering Facility: [facility] Address: [address] [place], [place] [address] Performed By: #### 5 7021-8 ####[facility] LABIA [id number] [place] [address] [place] Immature granulocytes (Bld) [#/Vol] 0.26 10*3/uL High <0.10 [facility] Comment on above: Order Comment: Speci men Type: BLOOD SPECIMENOrdering Facility: [facility] Address: [address] Performed By: #### 5 7021-8 ####[facility] LABCLIA [id number] [address] [place] Immature granulocytes/100 WBC (Bld) 1.7 % Normal [facility] Comment on above: Order Comment: Speci men Type: BLOOD SPECIMENOrdering Facility: [facility] Address: [address] Performed By: #### 5 7021-8 ####[facility] LABCLIA [id number] [place] [address] [place] Lymphocytes (Bld) [#/Vol] 3.52 10*3/uL Normal 1.00-4.00 [facility] Comment on above: Order Comment: Speci men Type: BLOOD SPECIMENOrdering Facility: [facility] Address: [address] [place], [place] [address] Performed By: #### 5 7021-8 ####[facility] LABCLIA [id number] [address] [place] Lymphocytes/100 WBC (Bld) 23.2 % Normal [facility] Comment on above: Order Comment: Speci men Type: BLOOD SPECIMENOrdering Facility: [facility] Address: [address] [place] [address] Performed By: #### 5 7021-8 ####[facility] LABCLIA [id number] [place] [address] [place] MCH (RBC) [Entitic mass] 30.9 pg Normal 26.0-34.0 [facility] Comment on above: Order Comment: Speci men Type: BLOOD SPECIMENOrdering Facility: [facility] Address: [address] Performed By: #### 5 7021-8 ####[facility]CLIA [id number] [address] [place] MCHC (RBC) [Mass/Vol] 32.4 g/dL Normal 30.5-36.0 [facility] Comment on above: Order Comment: Speci men Type: BLOOD SPECIMENOrdering Facility: [facility] Address: [address] [place] [address] Performed By: #### 5 7021-8 ####[facility] LABIA [id number] [place] [address] [place] MCV (RBC) [Entitic vol] 95.2 fL Normal 80.0-100.0 [facility] Comment on above: Order Comment: Speci men Type: BLOOD SPECIMENOrdering Facility: [facility] Address: [address] [place], [place] [address] Performed By: #### 5 7021-8 ####[facility]IA [id number] [place] [address] [place] Monocytes (Bld) [#/Vol] 1.06 10*3/uL High <0.87 [facility] Comment on above: Order Comment: Speci men Type: BLOOD SPECIMENOrdering Facility: [facility] Address: [address] [place] [address] Performed By: #### 5 7021-8 ####[facility] LABIA [id number] [address] [place] Monocytes/100 WBC (Bld) 7.0 % Normal [facility] Comment on above: Order Comment: Speci men Type: BLOOD SPECIMENOrdering Facility: [facility] Address: [address] [place] [address] Performed By: #### 5 7021-8 ####[facility] LABIA [id number] [place] [address] [place] Neutrophils (Bld) [#/Vol] 10.18 10*3/uL High 1.45-7.50 [facility] Comment on above: Order Comment: Speci men Type: BLOOD SPECIMENOrdering Facility: [facility] Address: [address] [place] [address] Performed By: #### 5 7021-8 ####[facility]CLIA [id number] [place] [address] [place] Neutrophils/100 WBC (Bld) 66.9 % Normal [facility] Comment on above: Order Comment: Speci men Type: BLOOD SPECIMENOrdering Facility: [facility] Address: [address] [place] [address] Performed By: #### 5 7021-8 ####[facility]CLIA [id number] [place] [address] [place] Nucleated RBC (Bld) [#/Vol] 0.14 10*3/uL High <0.01 [facility] Comment on above: Order Comment: Speci men Type: BLOOD SPECIMENOrdering Facility: [facility] Address: [address] [place], [place] [address] Performed By: #### 5 7021-8 ####[facility]CLIA [id number] [place] [address] [place] Nucleated RBC/100 WBC (Bld) [Ratio] 0.9 /100 WBC Normal [facility] Comment on above: Order Comment: Speci men Type: BLOOD SPECIMENOrdering Facility: [facility] Address: [address] [place], [place] [id number] Performed By: #### 5 7021-8 ####[facility] LABIA [id number] [place] [address] [place] Platelet mean volume (Bld) [Entitic vol] 10.4 fL Normal 9.0-12.7 [facility] Comment on above: Order Comment: Speci men Type: BLOOD SPECIMENOrdering Facility: [facility] Address: [address] Performed By: #### 5 7021-8 ####[facility] LABIA [id number] [place] [address] [place] Platelets (Bld) [#/Vol] 257 10*3/uL Normal 150-400 [facility] Comment on above: Order Comment: Speci men Type: BLOOD SPECIMENOrdering Facility: [facility] Address: [address] [place], [place] [address] Performed By: #### 5 7021-8 ####[facility] [id number] [place] [address] [place] RBC (Bld) [#/Vol] 2.69 10*6/uL Low 4.20-6.00 [facility] Comment on above: Order Comment: Speci men Type: BLOOD SPECIMENOrdering Facility: [facility] Address: [address] [place], [place] [address] Performed By: #### 5 7021-8 ####[facility] [id number] [place] [address] [place] WBC (Bld) [#/Vol] 15.20 10*3/uL High 3.70-11.00 [facility] Comment on above: Order Comment: Speci men Type: BLOOD SPECIMENOrdering Facility: [facility] Address: [address] [place], [place] [address] Performed By: #### 5 7021-8 ####[facility] [id number] [place] [address] [place] CONSULT PROGon 07-07-2023 CONSULT PROG Normal [facility] Comprehensive metabolic 2000 panelon 07-07-2023 Albumin [Mass/Vol] 2.8 g/dL Low 3.9-4.9 [facility] Comment on above: Order Comment: Speci men Type: BLOOD SPECIMENOrdering Facility: [facility] Address: [address] Performed By: #### 1 9123-9, 2776-10, 81603-0 ####[facility] LABCLIA [id number] [place] [address] [place] ALP [Catalytic activity/Vol] 66 U/L Normal 38-113 [facility] Comment on above: Order Comment: Speci men Type: BLOOD SPECIMENOrdering Facility: [facility] Address: [address] [place] [address] Performed By: #### 1 9123-9, 27704-09, 78405-9 ####[facility] LABCLIA [id number] [place] [address] [place] ALT [Catalytic activity/Vol] 31 U/L Normal 10-54 [facility] Comment on above: Order Comment: Speci men Type: BLOOD SPECIMENOrdering Facility: [facility] Address: [address] [address] Performed By: #### 1 9123-9, 27704-09, 22915-7 ####[facility] [id number] [place] [address] [place] Anion gap [Moles/Vol] 10 mmol/L Normal 9-18 [facility] Comment on above: Order Comment: Speci men Type: BLOOD SPECIMENOrdering Facility: [facility] Address: [address] Performed By: #### 1 9123-9, 27704-09, 91414-6 ####[facility] [id number] [place] [address] [place] AST [Catalytic activity/Vol] 15 U/L Normal 14-40 [facility] Comment on above: Order Comment: Speci men Type: BLOOD SPECIMENOrdering Facility: [facility] Address: [address] Performed By: #### 1 9123-9, 2776-10, 83033-2 ####[facility] LABCLIA [id number] [place] [address] [place] Bilirubin [Mass/Vol] 0.4 mg/dL Normal 0.2-1.3 [facility] Comment on above: Order Comment: Speci men Type: BLOOD SPECIMENOrdering Facility: [facility] Address: [address] [place] [address] Performed By: #### 1 9123-9, 2776-10, 67062-4 ####[facility] LABCLIA [id number] [place] [address] [place] Calcium [Mass/Vol] 9.2 mg/dL Normal 8.5-10.2 [facility] Comment on above: Order Comment: Speci men Type: BLOOD SPECIMENOrdering Facility: [facility] Address: [address] [place], [place] [address] Performed By: #### 1 9123-9, 2776-10, ####[facility] [id number] [place] [address] [place] Chloride [Moles/Vol] 111 mmol/L High 97-105 [facility] Comment on above: Order Comment: Speci men Type: BLOOD SPECIMENOrdering Facility: [facility] Address: [address] [place] [address] Performed By: #### 1 9123-9, 2776-10, 92942-4 ####[facility] LABIA [id number] [place] [id number] [place] CO2 [Moles/Vol] 20 mmol/L Low 22-30 [facility] Comment on above: Order Comment: Speci men Type: BLOOD SPECIMENOrdering Facility: [facility] Address: [address] [place] [address] Performed By: #### 1 9123-9, 27704-09, ####[facility] [id number] [place] [address] [place] Creatinine [Mass/Vol] 1.82 mg/dL High 0.73-1.22 [facility] Comment on above: Order Comment: Specjose luis marin Type: BLOOD SPECIMENOrdering Facility: [facility] Address: [address] [place] [address] Performed By: #### 1 9123-9, 2776-10, ####[facility] [id number] [address] [place] Creatinine and Glomerular filtration rate.predicted panel (S/P/Bld) 43 mL/min/1.73m??? Low >=60 [facility] Comment on above: Order Comment: Iesha marin Type: BLOOD SPECIMENOrdering Facility: [facility] Address: [address] [place] [address] Result Comment: Dayan mated Glomerular Filtration Rate (eGFR) is calculated using the 2020 CKD-EPI creatinine equation. This equation utilizes serum creatinine, sex, and age as parameters. The creatinine assay has traceable calibration to isotope dilution-mass spectrometry. Refer to KDIGO guidelines for clinical interpretation. In patients with unstable renal function, e.g. those with acute kidney injury, the eGFR may not accurately reflect actual GFR. Performed By: #### 1 9123-9, 2776-10, ####[facility] [id number] [place] [address] [place] Glucose [Mass/Vol] 105 mg/dL High 74-99 [facility] Comment on above: Order Comment: Iesha marin Type: BLOOD SPECIMENOrdering Facility: [facility] Address: [address] [place] [address] Result Comment: The [place] Diabetes Association (ADA) provides guidance for cutoff values for fasting glucose and random glucose. The ADA defines fasting as no caloric intake for at least 8 hours. Fasting plasma glucose results between 100 to 125 mg/dL indicate increased risk for diabetes (prediabetes).Fasting plasma glucose results greater than or equal to 126 mg/dL meet the criteria for diagnosis of diabetes. In the absence of unequivocal hyperglycemia, results should be confirmed by repeat testing. In a patient with classic symptoms of hyperglycemia or hyperglycemic crisis, random plasma glucose results greater than or equal to 200 mg/dL meet the criteria for diagnosis of diabetes.Reference: Standards of Medical Care in Diabetes 2016, [place] [employer] Association. Diabetes Care. 2016.39(Suppl 1). Performed By: #### 1 9123-9, 2776-10, ####[facility] LABCLIA [id number] [place] [address] [place] Potassium [Moles/Vol] 4.5 mmol/L Normal 3.7-5.1 [facility] Comment on above: Order Comment: Speci men Type: BLOOD SPECIMENOrdering Facility: [facility] Address: [address] [place] [address] Performed By: #### 1 9123-9, 2776-10, ####[facility] LABCLIA [id number] [place] [address] [place] Protein [Mass/Vol] 5.0 g/dL Low 6.3-8.0 [facility] Comment on above: Order Comment: Speci men Type: BLOOD SPECIMENOrdering Facility: [facility] Address: [address] [place] [address] Performed By: #### 1 9123-9, 2776-10, ####[facility] LABCLIA [id number] [place] [address] [place] Sodium [Moles/Vol] 141 mmol/L Normal 136-144 [facility] Comment on above: Order Comment: Speci men Type: BLOOD SPECIMENOrdering Facility: [facility] Address: [address] [place] [address] Performed By: #### 1 9123-9, 2776-10, 37314-0 ####[facility] LABCLIA [id number] [place] [id number] [place] Urea nitrogen [Mass/Vol] 48 mg/dL High 9-24 [facility] Comment on above: Order Comment: Iesha marin Type: BLOOD SPECIMENOrdering Facility: [facility] Address: [address] [place], [place] [address] Performed By: #### 1 9123-9, 2777-1, 99081-6 ####[facility] LABCLIA [id number] [place] [id number] [place] Magnesium SerPl-mCncon 07-07 Magnesium [Mass/Vol] 2.4 mg/dL High 1.7-2.3 [facility] Comment on above: Order Comment: Iesha marin Type: BLOOD SPECIMENOrdering Facility: [facility] Address: [address] [place] [address] Performed By: #### 1 9123-9, 2777-1, 11040-9 ####[facility] [id number] [place] [id number] [place] NUTRITIONon 07-07-2023 NUTRITION Normal [facility] PT panel Coag (PPP)on 2022 INR Coag (PPP) [Relative time] 1.1 {INR} Normal 0.9-1.3 [facility] Comment on above: Order Comment: Iesha marin Type: BLOOD SPECIMENOrdering Facility: [facility] Address: [address] [place] [address] Result Comment: Ella min K Antagonist (VKA) Therapeutic Range: INR 2 to 3 (Target INR of 2.5)Note: For patients treated with VKA drugs, such as warfarin, the [place] [employer] 2012 Guideline recommends a therapeutic INR range of 2 to 3 (target INR of 2.5). This recommendation includes high-risk patients with antiphospholipid syndrome with previous arterial or venous thromboembolism, current-generation mechanical or bioprosthetic aortic heart valve replacement.Note: Patients with mechanical aortic valve replacement and additional risk factors for thromboembolic events (atrial fibrillation, previous thromboembolism, LV dysfunction, hypercoagulable conditions) or an older generation mechanical AVR (i.e., ball in-Cage) or any mechanical MVR should have a INR therapeutic range of 2.5 to 3.5 (target INR of 3).Cee GREARD, et al. Chest 2012, 141:7S-47SLiberty RA, et al. [facility] 2017, 70: 252-289 Performed By: #### 3 4528-0, 80173-8 ####[facility] [id number] [place] [address] [place] PT Coag (PPP) [Time] 10.9 s Normal 9.7-13.0 [facility] Comment on above: Order Comment: Speci men Type: BLOOD SPECIMENOrdering Facility: [facility] Address: [address] [place] [address] Performed By: #### 3 4528-0, 67840-7 ####[facility] [id number] [place] [address] [place] Phosphate SerPl-ncon 07-07 Phosphate [Mass/Vol] 3.4 mg/dL Normal 2.7-4.8 [facility] Comment on above: Order Comment: Iesha marin Type: BLOOD SPECIMENOrdering Facility: [facility] Address: [address] [place] [address] Performed By: #### 1 9123-9, 2777-1, 94220-1 ####[facility] [id number] [place] [address] [place] THERAPY NTon 07-07-2023 THERAPY NT Normal [facility] Tacrolimus Bld-mCncon 2022 Tacrolimus (Bld) [Mass/Vol] 3.2 ng/mL Low 5.0-20.0 [facility] Comment on above: Order Comment: Makaylai men Type: BLOOD SPECIMENOrdering Facility: [facility] Address: [address] [place] [address] Result Comment: Nayely vidualized target levels for a given patient will depend on many factors (including the type of organ transplant, time since transplantation, concurrent medications, and other clinical factors), and should be assessed by those health care providers experienced in the management of immunosuppression. Reference ranges and high/low indicator flags are provided as general guidelines only. The treating physician must determine appropriate target levels/dosing based on the specific clinical situation. Test performed by chemiluminescent immunoassay using Cumulux Alinity i. Performed By: #### 1 1253-2 ####[facility] LABCLIA [id number] [place] [address] [place] aPTT PPPon 07-07-2023 aPTT Coag (PPP) [Time] 23.4 s Normal 23.0-32.4 [facility] Comment on above: Order Comment: Speci men Type: BLOOD SPECIMENOrdering Facility: [facility] Address: [address] Performed By: #### 3 4528-0, 35651-3 ####[facility] [id number] [place] [address] [place] Basic metabolic 2000 panelon 07-06-2023 Anion gap [Moles/Vol] 9 mmol/L Normal 9-18 [facility] Comment on above: Order Comment: Speci men Type: BLOOD SPECIMENOrdering Facility: [facility] Address: [address] Performed By: #### 2 4321-2 ####[facility] [id number] [place] [address] [place] Calcium [Mass/Vol] 9.1 mg/dL Normal 8.5-10.2 [facility] Comment on above: Order Comment: Speci men Type: BLOOD SPECIMENOrdering Facility: [facility] Address: [address] Performed By: #### 2 4321-2 ####[facility]CLIA [id number] [place] [address] [place] Chloride [Moles/Vol] 114 mmol/L High 97-105 [facility] Comment on above: Order Comment: Speci men Type: BLOOD SPECIMENOrdering Facility: [facility] Address: [address] [place] [address] Performed By: #### 2 4321-2 ####[facility]CLIA [id number] [place] [address] [place] CO2 [Moles/Vol] 23 mmol/L Normal 22-30 [facility] Comment on above: Order Comment: Speci men Type: BLOOD SPECIMENOrdering Facility: [facility] Address: [address] [place] [address] Performed By: #### 2 4321-2 ####[facility]CLIA [id number] [place] [address] [place] Creatinine [Mass/Vol] 2.03 mg/dL High 0.73-1.22 [facility] Comment on above: Order Comment: Speci men Type: BLOOD SPECIMENOrdering Facility: [facility] Address: [address] [place] [address] Performed By: #### 2 4321-2 ####[facility]CLIA [id number] [address] [facility] Creatinine and Glomerular filtration rate.predicted panel (S/P/Bld) 38 mL/min/1.73m??? Low >=60 [facility] Comment on above: Order Comment: Speci men Type: BLOOD SPECIMENOrdering Facility: [facility] Address: [address] [place] [address] Result Comment: Dayan mated Glomerular Filtration Rate (eGFR) is calculated using the 2020 CKD-EPI creatinine equation. This equation utilizes serum creatinine, sex, and age as parameters. The creatinine assay has traceable calibration to isotope dilution-mass spectrometry. Refer to KDIGO guidelines for clinical interpretation. In patients with unstable renal function, e.g. those with acute kidney injury, the eGFR may not accurately reflect actual GFR. Performed By: #### 2 4321-2 ####[facility] [id number] [place] [address] [place] Glucose [Mass/Vol] 132 mg/dL High 74-99 [facility] Comment on above: Order Comment: Speci men Type: BLOOD SPECIMENOrdering Facility: [facility] Address: [address] [address] Result Comment: The [place] Diabetes Association (ADA) provides guidance for cutoff values for fasting glucose and random glucose. The ADA defines fasting as no caloric intake for at least 8 hours. Fasting plasma glucose results between 100 to 125 mg/dL indicate increased risk for diabetes (prediabetes).Fasting plasma glucose results greater than or equal to 126 mg/dL meet the criteria for diagnosis of diabetes. In the absence of unequivocal hyperglycemia, results should be confirmed by repeat testing. In a patient with classic symptoms of hyperglycemia or hyperglycemic crisis, random plasma glucose results greater than or equal to 200 mg/dL meet the criteria for diagnosis of diabetes.Reference: Standards of Medical Care in Diabetes 2016, [place] [employer]. Diabetes Care. 2016.39(Suppl 1). Performed By: #### 2 4321-2 ####[facility] [id number] [place] [address] [place] Potassium [Moles/Vol] 5.0 mmol/L Normal 3.7-5.1 [facility] Comment on above: Order Comment: Speci men Type: BLOOD SPECIMENOrdering Facility: [facility] Address: [address] [address] Performed By: #### 2 4321-2 ####[facility] [id number] [place] [address] [place] Sodium [Moles/Vol] 146 mmol/L High 136-144 [facility] Comment on above: Order Comment: Makaylai men Type: BLOOD SPECIMENOrdering Facility: [facility] Address: [address] [address] Performed By: #### 2 4321-2 ####[facility]CLIA [id number] [place] [address] [place] Urea nitrogen [Mass/Vol] 54 mg/dL High 9- [facility] Comment on above: Order Comment: Speci men Type: BLOOD SPECIMENOrdering Facility: [facility] Address: [address] [place] [address] Performed By: #### 2 4321-2 ####[facility]CLIA [id number] [place] [address] [place] CBC W Auto Differential pane l (Bld)on 07-06-2023 Basophils (Bld) [#/Vol] 0.07 10*3/uL Normal <0.11 [facility] Comment on above: Order Comment: Speci men Type: BLOOD SPECIMENOrdering Facility: [facility] Address: [address] [place], [place] [address] Performed By: #### 5 7021-8 ####[facility] [id number] [place] [address] [place] Basophils/100 WBC (Bld) 0.5 % Normal [facility] Comment on above: Order Comment: Speci men Type: BLOOD SPECIMENOrdering Facility: [facility] Address: [address] [place], [place] [address] Performed By: #### 5 7021-8 ####[facility]CL[facility] [id number] [place] [address] [place] Differential cell count method Nom (Bld) Auto Normal [facility] Comment on above: Order Comment: Speci men Type: BLOOD SPECIMENOrdering Facility: [facility] Address: [address] [place], [place] [address] Performed By: #### 5 7021-8 ####[facility]CL[facility] [id number] [place] [address] [place] Eosinophils (Bld) [#/Vol] 0.07 10*3/uL Normal <0.46 [facility] Comment on above: Order Comment: Speci men Type: BLOOD SPECIMENOrdering Facility: [facility] Address: [address] [place] [address] Performed By: #### 5 7021-8 ####[facility] [id number] [place] [address] [place] Eosinophils/100 WBC (Bld) 0.5 % Normal [facility] Comment on above: Order Comment: Speci men Type: BLOOD SPECIMENOrdering Facility: [facility] Address: [address] [place] [address] Performed By: #### 5 7021-8 ####[facility] [id number] [place] [address] [place] Erythrocyte distribution width (RBC) [Ratio] 16.0 % High 11.5-15.0 [facility] Comment on above: Order Comment: Speci men Type: BLOOD SPECIMENOrdering Facility: [facility] Address: [address] [place], [place] [address] Performed By: #### 5 7021-8 ####[facility] [id number] [place] [address] [place] Hematocrit (Bld) [Volume fraction] 20.8 % Low 39.0-51.0 [facility] Comment on above: Order Comment: Speci men Type: BLOOD SPECIMENOrdering Facility: [facility] Address: [address] [place], [place] [address] Performed By: #### 5 7021-8 ####[facility] [id number] [place] [address] [place] Hemoglobin (Bld) [Mass/Vol] 6.8 g/dL Low 13.0-17.0 [facility] Comment on above: Order Comment: Speci men Type: BLOOD SPECIMENOrdering Facility: [facility] Address: [address] Performed By: #### 5 7021-8 ####[facility] [id number] [place] [address] [place] Immature granulocytes (Bld) [#/Vol] 0.23 10*3/uL High <0.10 [facility] Comment on above: Order Comment: Speci men Type: BLOOD SPECIMENOrdering Facility: [facility] Address: [address] [place], [place] [address] Performed By: #### 5 7021-8 ####[facility]CL[facility] [id number] [place] [address] [place] Immature granulocytes/100 WBC (Bld) 1.6 % Normal [facility] Comment on above: Order Comment: Speci men Type: BLOOD SPECIMENOrdering Facility: [facility] Address: [address] [place], [place] [address] Performed By: #### 5 7021-8 ####[facility] [id number] [place] [address] [place] Lymphocytes (Bld) [#/Vol] 1.93 10*3/uL Normal 1.00-4.00 [facility] Comment on above: Order Comment: Speci men Type: BLOOD SPECIMENOrdering Facility: [facility] Address: [address] [place], [place] [address] Performed By: #### 5 7021-8 ####[facility] [id number] [place] [address] [place] Lymphocytes/100 WBC (Bld) 13.6 % Normal [facility] Comment on above: Order Comment: Speci men Type: BLOOD SPECIMENOrdering Facility: [facility] Address: [address] [place], [place] [address] Performed By: #### 5 7021-8 ####[facility]CLIA [id number] [address] [place] [facility] MCH (RBC) [Entitic mass] 30.8 pg Normal 26.0-34.0 [facility] Comment on above: Order Comment: Speci men Type: BLOOD SPECIMENOrdering Facility: [facility] Address: [address] [place] [address] Performed By: #### 5 7021-8 ####[facility] [id number] [place] [address] [place] MCHC (RBC) [Mass/Vol] 32.7 g/dL Normal 30.5-36.0 [facility] Comment on above: Order Comment: Speci men Type: BLOOD SPECIMENOrdering Facility: [facility] Address: [address] [place] [address] Performed By: #### 5 7021-8 ####[facility] [id number] [place] [address] [place] MCV (RBC) [Entitic vol] 94.1 fL Normal 80.0-100.0 [facility] Comment on above: Order Comment: Speci men Type: BLOOD SPECIMENOrdering Facility: [facility] Address: [address] [place], [place] [address] Performed By: #### 5 7021-8 ####[facility] [id number] [place] [address] [place] Monocytes (Bld) [#/Vol] 1.02 10*3/uL High <0.87 [facility] Comment on above: Order Comment: Speci men Type: BLOOD SPECIMENOrdering Facility: [facility] Address: [address] [place], [place] [address] Performed By: #### 5 7021-8 ####[facility] [id number] [address] [place] Monocytes/100 WBC (Bld) 7.2 % Normal [facility] Comment on above: Order Comment: Speci men Type: BLOOD SPECIMENOrdering Facility: [facility] Address: [address] Performed By: #### 5 7021-8 ####[facility] [id number] [place] [address] [place] Neutrophils (Bld) [#/Vol] 10.91 10*3/uL High 1.45-7.50 [facility] Comment on above: Order Comment: Speci men Type: BLOOD SPECIMENOrdering Facility: [facility] Address: [address] Performed By: #### 5 7021-8 ####[facility] [id number] [place] [address] [place] Neutrophils/100 WBC (Bld) 76.6 % Normal [facility] Comment on above: Order Comment: Speci men Type: BLOOD SPECIMENOrdering Facility: [facility] Address: [address] Performed By: #### 5 7021-8 ####[facility] [id number] [place] [address] [place] Nucleated RBC (Bld) [#/Vol] 0.08 10*3/uL High <0.01 [facility] Comment on above: Order Comment: Speci men Type: BLOOD SPECIMENOrdering Facility: [facility] Address: [address] Performed By: #### 5 7021-8 ####[facility] [id number] [place] [address] [place] Nucleated RBC/100 WBC (Bld) [Ratio] 0.6 /100 WBC Normal [facility] [facility] Comment on above: Order Comment: Speci men Type: BLOOD SPECIMENOrdering Facility: [facility] Address: [address] Performed By: #### 5 7021-8 ####[facility] LABCLIA [id number] [place] [address] [place] Platelet mean volume (Bld) [Entitic vol] 10.0 fL Normal 9.0-12.7 [facility] Comment on above: Order Comment: Speci men Type: BLOOD SPECIMENOrdering Facility: [facility] Address: [address] [place], [place] [address] Performed By: #### 5 7021-8 ####[facility] LABCLIA [id number] [place] [address] [place] Platelets (Bld) [#/Vol] 264 10*3/uL Normal 150-400 [facility] Comment on above: Order Comment: Speci men Type: BLOOD SPECIMENOrdering Facility: [facility] Address: [address] [place], [place] [address] Performed By: #### 5 7021-8 ####[facility] LABIA [id number] [place] [address] [place] RBC (Bld) [#/Vol] 2.21 10*6/uL Low 4.20-6.00 [facility] Comment on above: Order Comment: Speci men Type: BLOOD SPECIMENOrdering Facility: [facility] Address: [address] [place], [place] [address] Performed By: #### 5 7021-8 ####[facility] LABIA [id number] [place] [address] [place] WBC (Bld) [#/Vol] 14.23 10*3/uL High 3.70-11.00 [facility] Comment on above: Order Comment: Speci men Type: BLOOD SPECIMENOrdering Facility: [facility] Address: [address] [place], [place] [address] Performed By: #### 5 7021-8 ####[facility] LABCLIA [id number] [place] [address] [place] [facility] [place] Basophils (Bld) [#/Vol] 0.09 10*3/uL Normal <0.11 [facility] Comment on above: Order Comment: Speci men Type: BLOOD SPECIMENOrdering Facility: [facility] Address: [address] [place] [address] Performed By: #### 5 7021-8 ####[facility] LABCLIA [id number] [facility] [address] [place] Basophils/100 WBC (Bld) 0.6 % Normal [facility] Comment on above: Order Comment: Speci men Type: BLOOD SPECIMENOrdering Facility: [facility] Address: [address] [place] [address] Performed By: #### 5 7021-8 ####[facility]CLIA [id number] [address] [place] Differential cell count method Nom (Bld) Auto Normal [facility] Comment on above: Order Comment: Speci men Type: BLOOD SPECIMENOrdering Facility: [facility] Address: [address] [place] [address] Performed By: #### 5 7021-8 ####[facility] LABCLIA [id number] [place] [address] [place] Eosinophils (Bld) [#/Vol] 0.09 10*3/uL Normal <0.46 [facility] Comment on above: Order Comment: Speci men Type: BLOOD SPECIMENOrdering Facility: [facility] Address: [address] Performed By: #### 5 7021-8 ####[facility] LABCLIA [id number] [address] OF [facility] Eosinophils/100 WBC (Bld) 0.6 % Normal [facility] Comment on above: Order Comment: Speci men Type: BLOOD SPECIMENOrdering Facility: [facility] Address: [address] [place], [place] [address] Performed By: #### 5 7021-8 ####[facility] LABCLIA [id number] [place] [address] [place] Erythrocyte distribution width (RBC) [Ratio] 16.1 % High 11.5-15.0 [facility] Comment on above: Order Comment: Speci men Type: BLOOD SPECIMENOrdering Facility: [facility] Address: [address] Performed By: #### 5 7021-8 ####[facility] LABIA [id number] [place] [address] [place] Hematocrit (Bld) [Volume fraction] 22.7 % Low 39.0-51.0 [facility] Comment on above: Order Comment: Speci men Type: BLOOD SPECIMENOrdering Facility: [facility] Address: [address] [place], [place] [address] Performed By: #### 5 7021-8 ####[facility] LABIA [id number] [place] [address] [place] Hemoglobin (Bld) [Mass/Vol] 7.5 g/dL Low 13.0-17.0 [facility] Comment on above: Order Comment: Speci men Type: BLOOD SPECIMENOrdering Facility: [facility] Address: [address] [place], [place] [address] Performed By: #### 5 7021-8 ####[facility] LABIA [id number] [place] [address] [place] Immature granulocytes (Bld) [#/Vol] 0.19 10*3/uL High <0.10 [facility] Comment on above: Order Comment: Speci men Type: BLOOD SPECIMENOrdering Facility: [facility] Address: [address] [place], [place] [address] Performed By: #### 5 7021-8 ####[facility] LABCLIA [id number] [place] [address] [place] Immature granulocytes/100 WBC (Bld) 1.4 % Normal [facility] Comment on above: Order Comment: Speci men Type: BLOOD SPECIMENOrdering Facility: [facility] Address: [address] [place] [address] Performed By: #### 5 7021-8 ####[facility]CLIA [id number] [place] [address] [place] Lymphocytes (Bld) [#/Vol] 1.60 10*3/uL Normal 1.00-4.00 [facility] Comment on above: Order Comment: Speci men Type: BLOOD SPECIMENOrdering Facility: [facility] Address: [address] [place] [address] Performed By: #### 5 7021-8 ####[facility]CLIA [id number] [place] [address] [place] Lymphocytes/100 WBC (Bld) 11.5 % Normal [facility] Comment on above: Order Comment: Speci men Type: BLOOD SPECIMENOrdering Facility: [facility] Address: [address] [place] [address] Performed By: #### 5 7021-8 ####[facility]CLIA [id number] [place] [address] [place] MCH (RBC) [Entitic mass] 30.7 pg Normal 26.0-34.0 [facility] Comment on above: Order Comment: Speci men Type: BLOOD SPECIMENOrdering Facility: [facility] Address: [address] [place], [place] [address] Performed By: #### 5 7021-8 ####[facility] LABCLIA [id number] [place] [address] [place] MCHC (RBC) [Mass/Vol] 33.0 g/dL Normal 30.5-36.0 [facility] Comment on above: Order Comment: Speci men Type: BLOOD SPECIMENOrdering Facility: [facility] Address: [address] Performed By: #### 5 7021-8 ####[facility] LABIA [id number] [place] [address] [place] MCV (RBC) [Entitic vol] 93.0 fL Normal 80.0-100.0 [facility] Comment on above: Order Comment: Speci men Type: BLOOD SPECIMENOrdering Facility: [facility] Address: [address] Performed By: #### 5 7021-8 ####[facility] LABIA [id number] [place] [address] [place] Monocytes (Bld) [#/Vol] 0.89 10*3/uL High <0.87 [facility] Comment on above: Order Comment: Speci men Type: BLOOD SPECIMENOrdering Facility: [facility] Address: [address] Performed By: #### 5 7021-8 ####[facility] LABIA [id number] [place] [address] [place] Monocytes/100 WBC (Bld) 6.4 % Normal [facility] Comment on above: Order Comment: Speci men Type: BLOOD SPECIMENOrdering Facility: [facility] Address: [address] Performed By: #### 5 7021-8 ####[facility] LABIA [id number] [place] [address] [place] Neutrophils (Bld) [#/Vol] 11.00 10*3/uL High 1.45-7.50 [facility] Comment on above: Order Comment: Speci men Type: BLOOD SPECIMENOrdering Facility: [facility] Address: [address] Performed By: #### 5 7021-8 ####[facility] LABCLIA [id number] [place] [address] [place] Neutrophils/100 WBC (Bld) 79.5 % Normal [facility] Comment on above: Order Comment: Speci men Type: BLOOD SPECIMENOrdering Facility: [facility] Address: [address] [place] [address] Performed By: #### 5 7021-8 ####[facility] LABIA [id number] [place] [address] [place] Nucleated RBC (Bld) [#/Vol] 0.08 10*3/uL High <0.01 [facility] Comment on above: Order Comment: Speci men Type: BLOOD SPECIMENOrdering Facility: [facility] Address: [address] [place] [address] Performed By: #### 5 7021-8 ####[facility] LABIA [id number] [place] [address] [place] Nucleated RBC/100 WBC (Bld) [Ratio] 0.6 /100 WBC Normal [facility] Comment on above: Order Comment: Speci men Type: BLOOD SPECIMENOrdering Facility: [facility] Address: [address] [place], [place] [address] Performed By: #### 5 7021-8 ####[facility] LABIA [id number] [place] [address] [place] Platelet mean volume (Bld) [Entitic vol] 10.1 fL Normal 9.0-12.7 [facility] Comment on above: Order Comment: Speci men Type: BLOOD SPECIMENOrdering Facility: [facility] Address: [address] [place], [place] [address] Performed By: #### 5 7021-8 ####[facility] LABIA [id number] [place] [address] [place] Platelets (Bld) [#/Vol] 284 10*3/uL Normal 150-400 [facility] Comment on above: Order Comment: Speci men Type: BLOOD SPECIMENOrdering Facility: [facility] Address: [address] [place], [place] [address] Performed By: #### 5 7021-8 ####[facility] LABCLIA [id number] [place] [address] [place] RBC (Bld) [#/Vol] 2.44 10*6/uL Low 4.20-6.00 [facility] Comment on above: Order Comment: Speci men Type: BLOOD SPECIMENOrdering Facility: [facility] Address: [address] [place], [place] [address] Performed By: #### 5 7021-8 ####[facility] LABCLIA [id number] [place] [address] [place] WBC (Bld) [#/Vol] 13.86 10*3/uL High 3.70-11.00 [facility] Comment on above: Order Comment: Speci men Type: BLOOD SPECIMENOrdering Facility: [facility] Address: [address] [place], [place] [address] Performed By: #### 5 7021-8 ####[facility] LABCLIA [id number] [place] [address] [place] Basophils (Bld) [#/Vol] 0.12 10*3/uL High <0.11 [facility] Comment on above: Order Comment: Speci men Type: BLOOD SPECIMENOrdering Facility: [facility] Address: [address] [place], [place] [address] Performed By: #### 5 7021-8 ####[facility] LABCLIA [id number] [place] [address] [place] Basophils/100 WBC (Bld) 0.8 % Normal [facility] Comment on above: Order Comment: Speci men Type: BLOOD SPECIMENOrdering Facility: [facility] Address: [address] Performed By: #### 5 7021-8 ####[facility] LABCLIA [id number] [place] [address] [place] Differential cell count method Nom (Bld) Auto Normal [facility] Comment on above: Order Comment: Speci men Type: BLOOD SPECIMENOrdering Facility: [facility] Address: [address] [place], [place] [address] Performed By: #### 5 7021-8 ####[facility] LABCLIA [id number] [place] [address] [place] Eosinophils (Bld) [#/Vol] 0.08 10*3/uL Normal <0.46 [facility] Comment on above: Order Comment: Speci men Type: BLOOD SPECIMENOrdering Facility: [facility] Address: [address] [place], [place] [address] Performed By: #### 5 7021-8 ####[facility] LABIA [id number] [place] [address] [place] Eosinophils/100 WBC (Bld) 0.5 % Normal [facility] Comment on above: Order Comment: Speci men Type: BLOOD SPECIMENOrdering Facility: [facility] Address: [address] [place], [place] [address] Performed By: #### 5 7021-8 ####[facility] LABIA [id number] [place] [address] [place] Erythrocyte distribution width (RBC) [Ratio] 16.1 % High 11.5-15.0 [facility] Comment on above: Order Comment: Speci men Type: BLOOD SPECIMENOrdering Facility: [facility] Address: [address] [place], [place] [address] Performed By: #### 5 7021-8 ####[facility] LABCLIA [id number] [place] [address] [place] Hematocrit (Bld) [Volume fraction] 23.8 % Low 39.0-51.0 [facility] Comment on above: Order Comment: Speci men Type: BLOOD SPECIMENOrdering Facility: [facility] Address: [address] [place] [address] Performed By: #### 5 7021-8 ####[facility] LABCLIA [id number] [place] [address] [place] Hemoglobin (Bld) [Mass/Vol] 7.7 g/dL Low 13.0-17.0 [facility] Comment on above: Order Comment: Speci men Type: BLOOD SPECIMENOrdering Facility: [facility] Address: [address] [place] [address] Performed By: #### 5 7021-8 ####[facility] LABCLIA [id number] [address] [place] Immature granulocytes (Bld) [#/Vol] 0.28 10*3/uL High <0.10 [facility] Comment on above: Order Comment: Speci men Type: BLOOD SPECIMENOrdering Facility: [facility] Address: [address] [place] [address] Performed By: #### 5 7021-8 ####[facility] LABCLIA [id number] [place] [address] [place] Immature granulocytes/100 WBC (Bld) 1.8 % Normal [facility] Comment on above: Order Comment: Speci men Type: BLOOD SPECIMENOrdering Facility: [facility] Address: [address] [place], [place] [address] Performed By: #### 5 7021-8 ####[facility] LABCLIA [id number] [place] [address] [place] Lymphocytes (Bld) [#/Vol] 3.71 10*3/uL Normal 1.00-4.00 [facility] Comment on above: Order Comment: Speci men Type: BLOOD SPECIMENOrdering Facility: [facility] Address: [address] Performed By: #### 5 7021-8 ####[facility] LABCLIA [id number] [address] [place] [facility] Lymphocytes/100 WBC (Bld) 23.4 % Normal [facility] Comment on above: Order Comment: Speci men Type: BLOOD SPECIMENOrdering Facility: [facility] Address: [address] [place], [place] [address] Performed By: #### 5 7021-8 ####[facility] LABCLIA [id number] [place] [address] [place] MCH (RBC) [Entitic mass] 30.1 pg Normal 26.0-34.0 [facility] Comment on above: Order Comment: Speci men Type: BLOOD SPECIMENOrdering Facility: [facility] Address: [address] [place], [place] [address] Performed By: #### 5 7021-8 ####[facility] LABCLIA [id number] [address] [place] MCHC (RBC) [Mass/Vol] 32.4 g/dL Normal 30.5-36.0 [facility] Comment on above: Order Comment: Speci men Type: BLOOD SPECIMENOrdering Facility: [facility] Address: [address] [place] [address] Performed By: #### 5 7021-8 ####[facility] LABCLIA [id number] [place] [address] [place] MCV (RBC) [Entitic vol] 93.0 fL Normal 80.0-100.0 [facility] Comment on above: Order Comment: Speci men Type: BLOOD SPECIMENOrdering Facility: [facility] Address: [address] [place], [place] [address] Performed By: #### 5 7021-8 ####[facility] LABCLIA [id number] [place] [address] [place] Monocytes (Bld) [#/Vol] 1.06 10*3/uL High <0.87 [facility] Comment on above: Order Comment: Speci men Type: BLOOD SPECIMENOrdering Facility: [facility] Address: [address] [place] [address] Performed By: #### 5 7021-8 ####[facility]CLIA [id number] [place] [address] [place] Monocytes/100 WBC (Bld) 6.7 % Normal [facility] Comment on above: Order Comment: Speci men Type: BLOOD SPECIMENOrdering Facility: [facility] Address: [address] [place], [place] [address] Performed By: #### 5 7021-8 ####[facility]CLIA [id number] [place] [address] [place] Neutrophils (Bld) [#/Vol] 10.62 10*3/uL High 1.45-7.50 [facility] Comment on above: Order Comment: Speci men Type: BLOOD SPECIMENOrdering Facility: [facility] Address: [address] [place], [place] [address] Performed By: #### 5 7021-8 ####[facility]CLIA [id number] [place] [address] [place] Neutrophils/100 WBC (Bld) 66.8 % Normal [facility] Comment on above: Order Comment: Speci men Type: BLOOD SPECIMENOrdering Facility: [facility] Address: [address] [place], [place] [address] Performed By: #### 5 7021-8 ####[facility]CLIA [id number] [place] [address] [place] Nucleated RBC (Bld) [#/Vol] 0.09 10*3/uL High <0.01 [facility] Comment on above: Order Comment: Speci men Type: BLOOD SPECIMENOrdering Facility: [facility] Address: [address] [place], [place] [address] Performed By: #### 5 7021-8 ####[facility] LABIA [id number] [place] [address] [place] Nucleated RBC/100 WBC (Bld) [Ratio] 0.6 /100 WBC Normal [facility] Comment on above: Order Comment: Speci men Type: BLOOD SPECIMENOrdering Facility: [facility] Address: [address] [place], [place] [address] Performed By: #### 5 7021-8 ####[facility] LABIA [id number] [place] [address] [place] Platelet mean volume (Bld) [Entitic vol] 10.6 fL Normal 9.0-12.7 [facility] Comment on above: Order Comment: Speci men Type: BLOOD SPECIMENOrdering Facility: [facility] Address: [address] [place], [place] [address] Performed By: #### 5 7021-8 ####[facility] LABIA [id number] [place] [address] [place] Platelets (Bld) [#/Vol] 309 10*3/uL Normal 150-400 [facility] Comment on above: Order Comment: Speci men Type: BLOOD SPECIMENOrdering Facility: [facility] Address: [address] [place], [place] [address] Performed By: #### 5 7021-8 ####[facility] LABIA [id number] [place] [address] [place] RBC (Bld) [#/Vol] 2.56 10*6/uL Low 4.20-6.00 [facility] Comment on above: Order Comment: Speci men Type: BLOOD SPECIMENOrdering Facility: [facility] Address: [address] [place] [address] Performed By: #### 5 7021-8 ####[facility] LABCLIA [id number] [place] [address] [place] WBC (Bld) [#/Vol] 15.87 10*3/uL High 3.70-11.00 [facility] Comment on above: Order Comment: Speci men Type: BLOOD SPECIMENOrdering Facility: [facility] Address: [address] Performed By: #### 5 7021-8 ####[facility] LABCLIA [id number] [place] [address] [place] Anisocytosis Ql (Bld) Present Normal [facility] Comment on above: Order Comment: Speci men Type: BLOOD SPECIMENOrdering Facility: [facility] Address: [address] [place], [place] [address] Performed By: #### 5 7021-8 ####[facility]CLIA [id number] [place] [address] [place] Basophils (Bld) [#/Vol] 0.38 10*3/uL High <0.11 [facility] Comment on above: Order Comment: Speci men Type: BLOOD SPECIMENOrdering Facility: [facility] Address: [address] [place], [place] [address] Performed By: #### 5 7021-8 ####[facility]CLIA [id number] [place] [address] [place] Basophils/100 WBC (Bld) 2.0 % Normal [facility] Comment on above: Order Comment: Speci men Type: BLOOD SPECIMENOrdering Facility: [facility] Address: [address] [place], [place] [address] Performed By: #### 5 7021-8 ####[facility]CLIA [id number] [place] [address] [place] Differential cell count method Nom (Bld) Manual Normal [facility] Comment on above: Order Comment: Speci men Type: BLOOD SPECIMENOrdering Facility: [facility] Address: [address] [place], [place] [address] Performed By: #### 5 7021-8 ####[facility]CLIA [id number] [place] [address] [place] Eosinophils (Bld) [#/Vol] 0.00 10*3/uL Normal <0.46 [facility] Comment on above: Order Comment: Speci men Type: BLOOD SPECIMENOrdering Facility: [facility] Address: [address] [place], [place] [address] Performed By: #### 5 7021-8 ####[facility] LABIA [id number] [address] [place] Eosinophils/100 WBC (Bld) 0.0 % Normal [facility] Comment on above: Order Comment: Speci men Type: BLOOD SPECIMENOrdering Facility: [facility] Address: [address] [place], [place] [address] Performed By: #### 5 7021-8 ####[facility]IA [id number] [place] [address] [place] Erythrocyte distribution width (RBC) [Ratio] 15.9 % High 11.5-15.0 [facility] Comment on above: Order Comment: Speci men Type: BLOOD SPECIMENOrdering Facility: [facility] Address: [address] [place], [place] [address] Performed By: #### 5 7021-8 ####[facility] LABIA [id number] [place] [address] [place] Hematocrit (Bld) [Volume fraction] 26.2 % Low 39.0-51.0 [facility] Comment on above: Order Comment: Speci men Type: BLOOD SPECIMENOrdering Facility: [facility] Address: [address] [place] [address] Performed By: #### 5 7021-8 ####[facility]CLIA [id number] [place] [address] [place] Hemoglobin (Bld) [Mass/Vol] 8.5 g/dL Low 13.0-17.0 [facility] Comment on above: Order Comment: Speci men Type: BLOOD SPECIMENOrdering Facility: [facility] Address: [address] Performed By: #### 5 7021-8 ####[facility] LABIA [id number] [place] [address] [place] Lymphocytes (Bld) [#/Vol] 3.19 10*3/uL Normal 1.00-4.00 [facility] Comment on above: Order Comment: Speci men Type: BLOOD SPECIMENOrdering Facility: [facility] Address: [address] Performed By: #### 5 7021-8 ####[facility] LABIA [id number] [address] [place] [facility] Lymphocytes/100 WBC (Bld) 17.0 % Normal [facility] Comment on above: Order Comment: Speci men Type: BLOOD SPECIMENOrdering Facility: [facility] Address: [address] [place], [place] [address] Performed By: #### 5 7021-8 ####[facility]IA [id number] [place] [address] [place] MCH (RBC) [Entitic mass] 30.4 pg Normal 26.0-34.0 [facility] Comment on above: Order Comment: Speci men Type: BLOOD SPECIMENOrdering Facility: [facility] Address: [address] Performed By: #### 5 7021-8 ####[facility]IA [id number] [place] MCHC (RBC) [Mass/Vol] 32.4 g/dL Normal 30.5-36.0 [facility] Comment on above: Order Comment: Speci men Type: BLOOD SPECIMENOrdering Facility: [facility] Address: [address] [place] [address] Performed By: #### 5 7021-8 ####[facility] LABCLIA [id number] [place] [address] [place] MCV (RBC) [Entitic vol] 93.6 fL Normal 80.0-100.0 [facility] Comment on above: Order Comment: Speci men Type: BLOOD SPECIMENOrdering Facility: [facility] Address: [address] [place] [address] Performed By: #### 5 7021-8 ####[facility] LABCLIA [id number] [place] [address] [place] Monocytes (Bld) [#/Vol] 0.38 10*3/uL Normal <0.87 [facility] Comment on above: Order Comment: Speci men Type: BLOOD SPECIMENOrdering Facility: [facility] Address: [address] [place], [place] [address] Performed By: #### 5 7021-8 ####[facility] LABCLIA [id number] [address] [place] Monocytes/100 WBC (Bld) 2.0 % Normal [facility] Comment on above: Order Comment: Speci men Type: BLOOD SPECIMENOrdering Facility: [facility] Address: [address] [place], [place] [address] Performed By: #### 5 7021-8 ####[facility] LABCLIA [id number] [address] [place] MYELO% 2.0 % Normal [facility] Comment on above: Order Comment: Speci men Type: BLOOD SPECIMENOrdering Facility: [facility] Address: [address] Performed By: #### 5 7021-8 ####[facility] LABCLIA [id number] [place] [address] [place] Neutrophils (Bld) [#/Vol] 14.45 10*3/uL High 1.45-7.50 [facility] Comment on above: Order Comment: Speci men Type: BLOOD SPECIMENOrdering Facility: [facility] Address: [address] Performed By: #### 5 7021-8 ####[facility]CLIA [id number] [place] [address] [place] Neutrophils/100 WBC (Bld) 77.0 % Normal [facility] Comment on above: Order Comment: Speci men Type: BLOOD SPECIMENOrdering Facility: [facility] Address: [address] Performed By: #### 5 7021-8 ####[facility] LABIA [id number] [place] [address] [place] Nucleated RBC (Bld) [#/Vol] 0.19 10*3/uL High <0.01 [facility] Comment on above: Order Comment: Speci men Type: BLOOD SPECIMENOrdering Facility: [facility] Address: [address] Performed By: #### 5 7021-8 ####[facility] LABCLIA [id number] [place] [address] [place] Nucleated RBC/100 WBC (Bld) [Ratio] 1.0 /100 WBC Normal [facility] Comment on above: Order Comment: Speci men Type: BLOOD SPECIMENOrdering Facility: [facility] Address: [address] Performed By: #### 5 7021-8 ####[facility]CLIA [id number] [place] [address] [place] Ovalocytes LM Ql (Bld) Few Normal [facility] Comment on above: Order Comment: Speci men Type: BLOOD SPECIMENOrdering Facility: [facility] Address: [address] [place] [address] Performed By: #### 5 7021-8 ####[facility] LABIA [id number] [place] [address] [place] Platelet mean volume (Bld) [Entitic vol] 11.2 fL Normal 9.0-12.7 [facility] Comment on above: Order Comment: Speci men Type: BLOOD SPECIMENOrdering Facility: [facility] Address: [address] [place] [address] Performed By: #### 5 7021-8 ####[facility] LABIA [id number] [place] [address] [place] Platelets (Bld) [#/Vol] 380 10*3/uL Normal 150-400 [facility] Comment on above: Order Comment: Speci men Type: BLOOD SPECIMENOrdering Facility: [facility] Address: [address] [place] [address] Performed By: #### 5 7021-8 ####[facility] LABIA [id number] [place] [address] [place] Platelets Estimate (Bld) [#/Vol] Adequate Normal [facility] Comment on above: Order Comment: Speci men Type: BLOOD SPECIMENOrdering Facility: [facility] Address: [address] [place] [address] Performed By: #### 5 7021-8 ####[facility] LABCLIA [id number] [place] [address] [place] Polychromasia LM Ql (Bld) Slight Normal [facility] Comment on above: Order Comment: Speci men Type: BLOOD SPECIMENOrdering Facility: [facility] Address: [address] Performed By: #### 5 7021-8 ####[facility] LABIA [id number] [place] [address] [place] RBC (Bld) [#/Vol] 2.80 10*6/uL Low 4.20-6.00 [facility] Comment on above: Order Comment: Speci men Type: BLOOD SPECIMENOrdering Facility: [facility] Address: [address] [place], [place] [address] Performed By: #### 5 7021-8 ####[facility] LABIA [id number] [place] [address] [place] RED CELL MORPH Reviewed: see result s of individual morphologies Normal [facility] Comment on above: Order Comment: Speci men Type: BLOOD SPECIMENOrdering Facility: [facility] Address: [address] [place], [place] [address] Performed By: #### 5 7021-8 ####[facility] LABIA [id number] [place] [address] [place] WBC (Bld) [#/Vol] 18.76 10*3/uL High 3.70-11.00 [facility] Comment on above: Order Comment: Speci men Type: BLOOD SPECIMENOrdering Facility: [facility] Address: [address] [place], [place] [address] Performed By: #### 5 7021-8 ####[facility] LABCLIA [id number] [place] [address] [place] WBC Left Shift Ql (Bld) Present Normal [facility] Comment on above: Order Comment: Speci men Type: BLOOD SPECIMENOrdering Facility: [facility] Address: [address] [place], [place] [address] Performed By: #### 5 7021-8 ####[facility] LABIA [id number] [place] [address] [place] CONSULT PROGon 07-06-2023 CONSULT PROG Normal [facility] Comprehensive metabolic 2000 panelon 07-06-2023 Albumin [Mass/Vol] 2.7 g/dL Low 3.9-4.9 [facility] Comment on above: Order Comment: Speci men Type: BLOOD SPECIMENOrdering Facility: [facility] Address: [address] [place] [address] Performed By: #### 1 9123-9, 2777-, 93398-8, HSTNT ####[facility] LABCLIA [id number] [place] [address] [place] ALP [Catalytic activity/Vol] 70 U/L Normal 38-113 [facility] Comment on above: Order Comment: Speci men Type: BLOOD SPECIMENOrdering Facility: [facility] Address: [address] [place] [address] Performed By: #### 1 9123-9, 277-, 56144-1, HSTNT ####[facility] LABIA [id number] [place] [address] [place] ALT [Catalytic activity/Vol] 47 U/L Normal 10-54 [facility] Comment on above: Order Comment: Speci men Type: BLOOD SPECIMENOrdering Facility: [facility] Address: [address] [place], [place] [address] Performed By: #### 1 9123-9, 277-, 43830-0, HSTNT ####[facility] LABCLIA [id number] [place] [address] [place] Anion gap [Moles/Vol] 13 mmol/L Normal 9-18 [facility] Comment on above: Order Comment: Speci men Type: BLOOD SPECIMENOrdering Facility: [facility] Address: [address] [place] [address] Performed By: #### 1 9123-9, 277-, 93511-1, HSTNT ####[facility] LABCLIA [id number] [place] [address] [place] AST [Catalytic activity/Vol] 29 U/L Normal 14-40 [facility] Comment on above: Order Comment: Speci men Type: BLOOD SPECIMENOrdering Facility: [facility] Address: [address] [place] [address] Performed By: #### 1 9123-9, 27704-09, , HSTNT ####[facility] LABIA [id number] [place] [address] [place] Bilirubin [Mass/Vol] 0.4 mg/dL Normal 0.2-1.3 [facility] Comment on above: Order Comment: Speci men Type: BLOOD SPECIMENOrdering Facility: [facility] Address: [address] [place] [address] Performed By: #### 1 9123-9, 27704-09, , HSTNT ####[facility] [id number] [place] [address] [place] Calcium [Mass/Vol] 9.3 mg/dL Normal 8.5-10.2 [facility] Comment on above: Order Comment: Speci men Type: BLOOD SPECIMENOrdering Facility: [facility] Address: [address] [place], [place] [address] Performed By: #### 1 9123-9, 27704-09, , HSTNT ####[facility] LABIA [id number] [place] [address] [place] Chloride [Moles/Vol] 114 mmol/L High 97-105 [facility] Comment on above: Order Comment: Speci men Type: BLOOD SPECIMENOrdering Facility: [facility] Address: [address] [place], [place] [address] Performed By: #### 1 9123-9, 27704-09, 28670-1, HSTNT ####[facility] LABCLIA [id number] [facility] [place] [address] [place] CO2 [Moles/Vol] 21 mmol/L Low 22-30 [facility] Comment on above: Order Comment: Speci men Type: BLOOD SPECIMENOrdering Facility: [facility] Address: [address] [place] [address] Performed By: #### 1 9123-9, 277-, 54145-3, HSTNT ####[facility] LABCLIA [id number] [place] [address] [place] Creatinine [Mass/Vol] 2.02 mg/dL High 0.73-1.22 [facility] Comment on above: Order Comment: Speci men Type: BLOOD SPECIMENOrdering Facility: [facility] Address: [address] [place] [address] Performed By: #### 1 9123-9, 27704-09, , HSTNT ####[facility] LABIA [id number] [place] [address] [place] Creatinine and Glomerular filtration rate.predicted panel (S/P/Bld) 38 mL/min/1.73m??? Low >=60 [facility] Comment on above: Order Comment: Speci men Type: BLOOD SPECIMENOrdering Facility: [facility] Address: [address] [place] [address] Result Comment: Dayan mated Glomerular Filtration Rate (eGFR) is calculated using the 2020 CKD-EPI creatinine equation. This equation utilizes serum creatinine, sex, and age as parameters. The creatinine assay has traceable calibration to isotope dilution-mass spectrometry. Refer to KDIGO guidelines for clinical interpretation. In patients with unstable renal function, e.g. those with acute kidney injury, the eGFR may not accurately reflect actual GFR. Performed By: #### 1 9123-9, 277-, 75749-3, HSTNT ####[facility] LABCLIA [id number] [place] [address] [place] Glucose [Mass/Vol] 147 mg/dL High 74-99 [facility] Comment on above: Order Comment: Speci men Type: BLOOD SPECIMENOrdering Facility: [facility] Address: [address] [place], [place] [address] Result Comment: The [place] Diabetes Association (ADA) provides guidance for cutoff values for fasting glucose and random glucose. The ADA defines fasting as no caloric intake for at least 8 hours. Fasting plasma glucose results between 100 to 125 mg/dL indicate increased risk for diabetes (prediabetes).Fasting plasma glucose results greater than or equal to 126 mg/dL meet the criteria for diagnosis of diabetes. In the absence of unequivocal hyperglycemia, results should be confirmed by repeat testing. In a patient with classic symptoms of hyperglycemia or hyperglycemic crisis, random plasma glucose results greater than or equal to 200 mg/dL meet the criteria for diagnosis of diabetes.Reference: Standards of Medical Care in Diabetes 2016, [place] [employer] Association. Diabetes Care. 2016.39(Suppl 1). Performed By: #### 1 9123-9, 2777-, 58629-1, HSTNT ####[facility] LABCLIA [id number] [place] [address] [place] Potassium [Moles/Vol] 5.2 mmol/L High 3.7-5.1 [facility] Comment on above: Order Comment: Speci men Type: BLOOD SPECIMENOrdering Facility: [facility] Address: [address] [place], [place] [address] Performed By: #### 1 9123-9, 2777-, 07893-7, HSTNT ####[facility] LABIA [id number] [place] [address] [place] Protein [Mass/Vol] 5.0 g/dL Low 6.3-8.0 [facility] Comment on above: Order Comment: Speci men Type: BLOOD SPECIMENOrdering Facility: [facility] Address: [address] [place], [place] [address] Performed By: #### 1 9123-9, 7-, 26036-8, HSTNT ####[facility] LABCLIA [id number] [place] [address] [place] Sodium [Moles/Vol] 148 mmol/L High 136-144 [facility] Comment on above: Order Comment: Speci men Type: BLOOD SPECIMENOrdering Facility: [facility] Address: [address] [place] [address] Performed By: #### 1 9123-9, 2776-, 31151-0, HSTNT ####[facility] LABCLIA [id number] [place] [address] [place] Urea nitrogen [Mass/Vol] 63 mg/dL High 9-24 [facility] Comment on above: Order Comment: Speci men Type: BLOOD SPECIMENOrdering Facility: [facility] Address: [address] [place] [address] Performed By: #### 1 9123-9, 2776-, 18582-3, HSTNT ####[facility] LABIA [id number] [place] [address] [place] HIGH SENSITIVITY TROPONIN To n 07-06-2023 Troponin T.cardiac High sensitivity method [Mass/Vol] 23 ng/L High <12 [facility] Comment on above: Order Comment: Speci men Type: BLOOD SPECIMENOrdering Facility: [facility] Address: [address] [place] [address] Result Comment: When assessing risk for acute coronary syndromes: In patients undergoing blood draw greater than or equal to 2 hours from symptom onset, with history of very low to moderate risk and non-ischemic ECG, an initial hs-Troponin T less than 12 ng/L AND a 1 hour delta hs-Troponin T less than 3 ng/L should be considered very low risk for 30 day MACE. Performed By: #### 1 9123-9, 2777-1, 44926-4, HSTNT ####[facility] LABCLIA [id number] [place] [id number] [place] Magnesium SerPl-mCncon 07-06 Magnesium [Mass/Vol] 2.0 mg/dL Normal 1.7-2.3 [facility] Comment on above: Order Comment: Speci tania Type: BLOOD SPECIMENOrdering Facility: [facility] Address: [address] [place] [address] Performed By: #### 1 9123-9, 2777-1, 51416-8, HSTNT ####[facility] LABCLIA [id number] [place] [address] [place] PT panel Coag (PPP)on 2022 INR Coag (PPP) [Relative time] 1.0 {INR} Normal 0.9-1.3 [facility] Comment on above: Order Comment: Speci tania Type: BLOOD SPECIMENOrdering Facility: [facility] Address: [address] [place] [address] Result Comment: Ella min K Antagonist (VKA) Therapeutic Range: INR 2 to 3 (Target INR of 2.5)Note: For patients treated with VKA drugs, such as warfarin, the [place] [employer] 2012 Guideline recommends a therapeutic INR range of 2 to 3 (target INR of 2.5). This recommendation includes high-risk patients with antiphospholipid syndrome with previous arterial or venous thromboembolism, current-generation mechanical or bioprosthetic aortic heart valve replacement.Note: Patients with mechanical aortic valve replacement and additional risk factors for thromboembolic events (atrial fibrillation, previous thromboembolism, LV dysfunction, hypercoagulable conditions) or an older generation mechanical AVR (i.e., ball in-Cage) or any mechanical MVR should have a INR therapeutic range of 2.5 to 3.5 (target INR of 3).Cee GH, et al. Chest 2012, 141:7S-47SNishimura RA, et al. JAC 2017, 70: 252-289 Performed By: #### 1 4979-9, 04692-6 ####[facility] LABCLIA [id number] [address] [place] PT Coag (PPP) [Time] 10.6 s Normal 9.7-13.0 [facility] Comment on above: Order Comment: Speci men Type: BLOOD SPECIMENOrdering Facility: [facility] Address: [address] [place] [address] Performed By: #### 1 4979-9, 36194-0 ####[facility] LABCLIA [id number] [place] [address] [place] Phosphate SerPl-mCncon 07-06 Phosphate [Mass/Vol] 3.9 mg/dL Normal 2.7-4.8 [facility] Comment on above: Order Comment: Speci men Type: BLOOD SPECIMENOrdering Facility: [facility] Address: [address] [place] [address] Performed By: #### 1 9123-9, 2777-1, 83891-6, HSTNT ####[facility] LABCLIA [id number] [place] [address] [place] STAPH AUREUS PCRon S. aureus and MRSA panel ARINA+probe (Nose) Normal Negative [facility] Comment on above: Order Comment: Speci men Type: SWAB OF INTERNAL NOSEOrdering Facility: [facility] Address: [address] [place] [address] Result Comment: Nega tive for Staphylococcus aureus by PCR.Negative for MRSA by PCR Performed By: #### S APCR ####[facility] LABCLIA [id number] [place] [address] [place] THERAPY NTon 07-06-2023 THERAPY NT Normal [facility] THERAPY NT Normal [facility] Tacrolimus Bld-mCncon 2022 Tacrolimus (Bld) [Mass/Vol] ng/mL Low 5.0-20.0 [facility] Comment on above: Order Comment: Speci men Type: BLOOD SPECIMENOrdering Facility: [facility] Address: [address] [place] [address] Result Comment: Drug concentration below assay detection limit. Please confirm drug regimen and cancel any standing orders for this drug level if the drug has been discontinued. Reference ranges and high/low indicator flags are provided as general guidelines only. The treating physician must determine appropriate target levels/dosing based on the specific clinical situation. Test performed by chemiluminescent immunoassay using Cumulux Alinity i. Performed By: #### 1 1253-2 ####[facility] [id number] [address] [place] aPTT PPPon 07-06-2023 aPTT Coag (PPP) [Time] 24.0 s Normal 23.0-32.4 [facility] Comment on above: Order Comment: Speci men Type: BLOOD SPECIMENOrdering Facility: [facility] Address: [address] [place] [address] Performed By: #### 1 4979-9, 34015-4 ####[facility] [id number] [address] [place] ALLIED HEALTHon 07-05-2023 ALLIED HEALTH Normal [facility] ARTERIAL BLOOD GASESon 07-05 Base excess Calc (Bld) [Moles/Vol] 0 mmol/L Normal 0-2 [facility] Comment on above: Order Comment: Speci men Type: ARTERIAL BLOOD SPECIMENOrdering Facility: [facility] Address: [address] [place], [place] [address] Performed By: #### A LLBG ####[facility] LABIA [id number] [address] [place] Body temperature 98.06 [degF] Normal [facility] Comment on above: Order Comment: Speci men Type: ARTERIAL BLOOD SPECIMENOrdering Facility: [facility] Address: [address] [place], [place] [address] Performed By: #### A LLBG ####[facility] LABIA [id number] [address] [place] Calcium.ionized (Bld) [Mass/Vol] 1.24 mmol/L Normal 1.08-1.30 [facility] Comment on above: Order Comment: Speci men Type: ARTERIAL BLOOD SPECIMENOrdering Facility: [facility] Address: [address] [place] [address] Performed By: #### A LLBG ####[facility] LABCLIA [id number] [place] [address] [place] [facility] [place] Calcium.ionized adjusted to pH 7.4 (BldA) [Moles/Vol] 1.23 mmol/L Normal 1.08-1.30 [facility] Comment on above: Order Comment: Speci men Type: ARTERIAL BLOOD SPECIMENOrdering Facility: [facility] Address: [address] [place] [address] Performed By: #### A LLBG ####[facility] LABCLIA [id number] [address] [place] Carboxyhemoglobin (BldA) [Mass fraction] 1.4 % Normal 0.0-2.0 [facility] Comment on above: Order Comment: Speci men Type: ARTERIAL BLOOD SPECIMENOrdering Facility: [facility] Address: [address] [place] [address] Result Comment: Carb oxyhemoglobin Reference Range for Smokers: 2.0-8.0% Performed By: #### A LLBG ####[facility] LABCLIA [id number] [place] [address] [place] CO2 (Bld) [Partial pressure] 41 mm Hg Normal 36-46 [facility] Comment on above: Order Comment: Speci men Type: ARTERIAL BLOOD SPECIMENOrdering Facility: [facility] Address: [address] [place] [address] Performed By: #### A LLBG ####[facility] LABCLIA [id number] [place] [address] [place] CO2 adjusted to patient's actual temperature (Bld) [Partial pressure] 40 mmHg Normal 36-46 [facility] Comment on above: Order Comment: Speci men Type: ARTERIAL BLOOD SPECIMENOrdering Facility: [facility] Address: [address] [place], [place] [address] Performed By: #### A LLBG ####[facility]CLIA [id number] [place] [address] [place] FIO2 40 % Normal [facility] Comment on above: Order Comment: Speci men Type: ARTERIAL BLOOD SPECIMENOrdering Facility: [facility] Address: [address] Performed By: #### A LLBG ####[facility] LABCLIA [id number] [place] [address] [place] Glucose [Mass/Vol] 152 mg/dL High 60-105 [facility] Comment on above: Order Comment: Speci men Type: ARTERIAL BLOOD SPECIMENOrdering Facility: [facility] Address: [address] Performed By: #### A LLBG ####[facility] LABCLIA [id number] [place] [address] [place] HCO3 (Bld) [Moles/Vol] 24 mmol/L Normal 22-26 [facility] Comment on above: Order Comment: Speci men Type: ARTERIAL BLOOD SPECIMENOrdering Facility: [facility] Address: [address] Performed By: #### A LLBG ####[facility]CLIA [id number] [place] [address] [place] Hematocrit (Bld) [Volume fraction] 28.0 % Low 39.0-51.0 [facility] Comment on above: Order Comment: Speci men Type: ARTERIAL BLOOD SPECIMENOrdering Facility: [facility] Address: [address] Performed By: #### A LLBG ####[facility]CLIA [id number] [place] [address] [place] Hemoglobin (Bld) [Mass/Vol] 9.0 g/dL Low 13.0-17.0 [facility] Comment on above: Order Comment: Speci men Type: ARTERIAL BLOOD SPECIMENOrdering Facility: [facility] Address: [address] [place] [address] Performed By: #### A LLBG ####[facility] [id number] [place] [address] [place] Lactate [Moles/Vol] 1.2 mmol/L Normal 0.5-2.2 [facility] Comment on above: Order Comment: Speci men Type: ARTERIAL BLOOD SPECIMENOrdering Facility: [facility] Address: [address] [place] [address] Performed By: #### A LLBG ####[facility] [id number] [address] [place] Methemoglobin (Bld) [Mass fraction] 0.3 % Normal 0.0-1.5 [facility] Comment on above: Order Comment: Speci men Type: ARTERIAL BLOOD SPECIMENOrdering Facility: [facility] Address: [address] [place], [place] [address] Performed By: #### A LLBG ####[facility] [id number] [place] [address] [place] O2 THERAPY Ventilator Normal [facility] Comment on above: Order Comment: Speci men Type: ARTERIAL BLOOD SPECIMENOrdering Facility: [facility] Address: [address] [place], [place] [address] Performed By: #### A LLBG ####[facility] [id number] [place] [address] [place] Oxygen (Bld) [Partial pressure] 115 mm Hg High 85-95 [facility] Comment on above: Order Comment: Speci men Type: ARTERIAL BLOOD SPECIMENOrdering Facility: [facility] Address: [address] Performed By: #### A LLBG ####[facility] LABCLIA [id number] [place] [address] [place] Oxygen adjusted to patient's actual temperature (Bld) [Partial pressure] 113 mmHg High 85-95 [facility] Comment on above: Order Comment: Speci men Type: ARTERIAL BLOOD SPECIMENOrdering Facility: [facility] Address: [address] Performed By: #### A LLBG ####[facility] LABCLIA [id number] [place] [address] [place] Oxyhemoglobin (BldA) [Mass fraction] 97 % Normal 95-98 [facility] Comment on above: Order Comment: Speci men Type: ARTERIAL BLOOD SPECIMENOrdering Facility: [facility] Address: [address] [place], [place] [address] Performed By: #### A LLBG ####[facility] LABCLIA [id number] [place] [address] [place] pH (Bld) 7.39 [pH] Normal 7.35-7.45 [facility] Comment on above: Order Comment: Speci men Type: ARTERIAL BLOOD SPECIMENOrdering Facility: [facility] Address: [address] Performed By: #### A LLBG ####[facility] LABCLIA [id number] [place] [address] [place] pH adjusted to patient's actual temperature (Bld) 7.39 Normal 7.35-7.45 [facility] Comment on above: Order Comment: Speci men Type: ARTERIAL BLOOD SPECIMENOrdering Facility: [facility] Address: [address] [place], [place] [address] Performed By: #### A LLBG ####[facility] LABCLIA [id number] [place] [address] [place] PO2 / FIO2 RATIO 288 mmHg Low >300 [facility] Comment on above: Order Comment: Speci men Type: ARTERIAL BLOOD SPECIMENOrdering Facility: [facility] Address: [address] [place] [address] Performed By: #### A LLBG ####[facility] LABCLIA [id number] [place] [address] [place] Potassium [Moles/Vol] 4.5 mmol/L Normal 3.5-5.0 [facility] Comment on above: Order Comment: Speci men Type: ARTERIAL BLOOD SPECIMENOrdering Facility: [facility] Address: [address] [place] [address] Performed By: #### A LLBG ####[facility] LABCLIA [id number] [place] [address] [place] Sodium [Moles/Vol] 144 mmol/L Normal 136-144 [facility] Comment on above: Order Comment: Speci men Type: ARTERIAL BLOOD SPECIMENOrdering Facility: [facility] Address: [address] [place] [address] Performed By: #### A LLBG ####[facility] LABCLIA [id number] [place] [address] [place] Bacteria Bld Culton 07-05-20 23 Bacteria identified Cx Nom (Bld) CULTURE, BLOOD: No growth 5 days Normal [facility] Comment on above: Performed By: #### 6 00-7 ####[facility] LABCLIA [id number] [place] [address] [place] Bacteria identified Cx Nom (Bld) ORGANISM ID: 1 Staphylococcus epidermidis Probable contaminant. Susceptibility testing will not be performed. Call lab within 72 hours to initiate workup if clinically indicated. GRAM STAIN: Gram positive cocci in clusters Abnormal [facility] Comment on above: Performed By: #### 6 00-7 ####[facility] LABCLIA [id number] [place] [id number] [place] Basic metabolic 2000 panelon 07-05-2023 Anion gap [Moles/Vol] 12 mmol/L Normal 9-18 [facility] Comment on above: Order Comment: Speci men Type: BLOOD SPECIMENOrdering Facility: [facility] Address: [address] [place], [place] [address] Performed By: #### 2 432-2, ####[facility] LABCLIA [id number] [place] [address] [place] Calcium [Mass/Vol] 9.1 mg/dL Normal 8.5-10.2 [facility] Comment on above: Order Comment: Speci men Type: BLOOD SPECIMENOrdering Facility: [facility] Address: [address] Performed By: #### 2 2, ####[facility] LABCLIA [id number] [place] [address] [place] Chloride [Moles/Vol] 109 mmol/L High 97-105 [facility] Comment on above: Order Comment: Speci men Type: BLOOD SPECIMENOrdering Facility: [facility] Address: [address] [place], [place] [address] Performed By: #### 2 2, ####[facility] LABCLIA [id number] [place] [id number] [place] CO2 [Moles/Vol] 21 mmol/L Low 22-30 [facility] Comment on above: Order Comment: Speci men Type: BLOOD SPECIMENOrdering Facility: [facility] Address: [address] Performed By: #### 2 2, ####[facility] LABCLIA [id number] [place] [id number] [place] Creatinine [Mass/Vol] 1.56 mg/dL High 0.73-1.22 [facility] Comment on above: Order Comment: Iesha marin Type: BLOOD SPECIMENOrdering Facility: [facility] Address: [address] [place] [address] Performed By: #### 2 4321-2, ####[facility] LABCLIA [id number] [address] [facility] Creatinine and Glomerular filtration rate.predicted panel (S/P/Bld) 51 mL/min/1.73m??? Low >=60 [facility] Comment on above: Order Comment: Iesha marin Type: BLOOD SPECIMENOrdering Facility: [facility] Address: [address] [place] [address] Result Comment: Dayan mated Glomerular Filtration Rate (eGFR) is calculated using the 2020 CKD-EPI creatinine equation. This equation utilizes serum creatinine, sex, and age as parameters. The creatinine assay has traceable calibration to isotope dilution-mass spectrometry. Refer to KDIGO guidelines for clinical interpretation. In patients with unstable renal function, e.g. those with acute kidney injury, the eGFR may not accurately reflect actual GFR. Performed By: #### 2 4321-, ####[facility] LABCLIA [id number] [place] [address] [place] Glucose [Mass/Vol] 139 mg/dL High 74-99 [facility] Comment on above: Order Comment: Iesha marin Type: BLOOD SPECIMENOrdering Facility: [facility] Address: [address] [place], [place] [address] Result Comment: The [place] Diabetes Association (ADA) provides guidance for cutoff values for fasting glucose and random glucose. The ADA defines fasting as no caloric intake for at least 8 hours. Fasting plasma glucose results between 100 to 125 mg/dL indicate increased risk for diabetes (prediabetes).Fasting plasma glucose results greater than or equal to 126 mg/dL meet the criteria for diagnosis of diabetes. In the absence of unequivocal hyperglycemia, results should be confirmed by repeat testing. In a patient with classic symptoms of hyperglycemia or hyperglycemic crisis, random plasma glucose results greater than or equal to 200 mg/dL meet the criteria for diagnosis of diabetes.Reference: Standards of Medical Care in Diabetes 2016, [place] [employer] Association. Diabetes Care. 2016.39(Suppl 1). Performed By: #### 2 2, ####[facility] LABCLIA [id number] [place] [address] [place] Potassium [Moles/Vol] Normal [facility] Comment on above: Order Comment: Speci men Type: BLOOD SPECIMENOrdering Facility: [facility] Address: [address] [place] [address] Result Comment: Unab le to assay due to interference from hemolysis. Suggest reorder as clinically indicated. Performed By: #### 2 4320-11, ####[facility] LABIA [id number] [place] [address] [place] Sodium [Moles/Vol] 142 mmol/L Normal 136-144 [facility] Comment on above: Order Comment: aMkaylai tania Type: BLOOD SPECIMENOrdering Facility: [facility] Address: [address] Performed By: #### 2 4320-11, ####[facility] LABIA [id number] [place] [address] [place] Urea nitrogen [Mass/Vol] 44 mg/dL High 9-24 [facility] Comment on above: Order Comment: Speci men Type: BLOOD SPECIMENOrdering Facility: [facility] Address: [address] Performed By: #### 2 4320-11, ####[facility] LABCLIA [id number] [place] [id number] [place] CBC W Auto Differential pane l (Bld)on 07-05-2023 Basophils (Bld) [#/Vol] 0.21 10*3/uL High <0.11 [facility] Comment on above: Order Comment: Speci men Type: BLOOD SPECIMENOrdering Facility: [facility] Address: [address] Performed By: #### 5 7021-8 ####[facility] LABCLIA [id number] [address] [place] Basophils/100 WBC (Bld) 1.7 % Normal [facility] Comment on above: Order Comment: Speci men Type: BLOOD SPECIMENOrdering Facility: [facility] Address: [address] [place], [place] [address] Performed By: #### 5 7021-8 ####[facility] LABCLIA [id number] [place] [address] [place] Differential cell count method Nom (Bld) Manual Normal [facility] Comment on above: Order Comment: Speci men Type: BLOOD SPECIMENOrdering Facility: [facility] Address: [address] [place], [place] [address] Performed By: #### 5 7021-8 ####[facility] LABCLIA [id number] [place] [address] [place] Eosinophils (Bld) [#/Vol] 0.00 10*3/uL Normal <0.46 [facility] Comment on above: Order Comment: Speci men Type: BLOOD SPECIMENOrdering Facility: [facility] Address: [address] [place], [place] [address] Performed By: #### 5 7021-8 ####[facility] LABCLIA [id number] [address] [place] Eosinophils/100 WBC (Bld) 0.0 % Normal [facility] Comment on above: Order Comment: Speci men Type: BLOOD SPECIMENOrdering Facility: [facility] Address: [address] [place], [place] [address] Performed By: #### 5 7021-8 ####[facility] LABCLIA [id number] [place] [address] [place] Erythrocyte distribution width (RBC) [Ratio] 14.9 % Normal 11.5-15.0 [facility] Comment on above: Order Comment: Speci men Type: BLOOD SPECIMENOrdering Facility: [facility] Address: [address] [place] [address] Performed By: #### 5 7021-8 ####[facility] LABIA [id number] [place] [address] [place] Hematocrit (Bld) [Volume fraction] 26.3 % Low 39.0-51.0 [facility] Comment on above: Order Comment: Speci men Type: BLOOD SPECIMENOrdering Facility: [facility] Address: [address] [place] [address] Performed By: #### 5 7021-8 ####[facility] [id number] [place] [address] [place] Hemoglobin (Bld) [Mass/Vol] 8.8 g/dL Low 13.0-17.0 [facility] Comment on above: Order Comment: Speci men Type: BLOOD SPECIMENOrdering Facility: [facility] Address: [address] [place] [address] Performed By: #### 5 7021-8 ####[facility] LABIA [id number] [place] [address] [place] Lymphocytes (Bld) [#/Vol] 0.83 10*3/uL Low 1.00-4.00 [facility] Comment on above: Order Comment: Speci men Type: BLOOD SPECIMENOrdering Facility: [facility] Address: [address] [place] [address] Performed By: #### 5 7021-8 ####[facility] LABIA [id number] [place] [address] [place] Lymphocytes/100 WBC (Bld) 6.8 % Normal [facility] Comment on above: Order Comment: Speci men Type: BLOOD SPECIMENOrdering Facility: [facility] Address: [address] [place], [place] [address] Performed By: #### 5 7021-8 ####[facility] LABIA [id number] [address] MCH (RBC) [Entitic mass] 30.7 pg Normal 26.0-34.0 [facility] Comment on above: Order Comment: Speci men Type: BLOOD SPECIMENOrdering Facility: [facility] Address: [address] [place], [place] [address] Performed By: #### 5 7021-8 ####[facility] LABIA [id number] [address] [place] MCHC (RBC) [Mass/Vol] 33.5 g/dL Normal 30.5-36.0 [facility] Comment on above: Order Comment: Speci men Type: BLOOD SPECIMENOrdering Facility: [facility] Address: [address] [place], [place] [address] Performed By: #### 5 7021-8 ####[facility] LABIA [id number] [address] [place] MCV (RBC) [Entitic vol] 91.6 fL Normal 80.0-100.0 [facility] Comment on above: Order Comment: Speci men Type: BLOOD SPECIMENOrdering Facility: [facility] Address: [address] [place], [place] [address] Performed By: #### 5 7021-8 ####[facility] LABIA [id number] [address] STATES OF [facility] Metamyelocytes/100 WBC (Bld) 0.9 % Normal [facility] Comment on above: Order Comment: Speci men Type: BLOOD SPECIMENOrdering Facility: [facility] Address: [address] [place], [place] [address] Performed By: #### 5 7021-8 ####[facility] LABCLIA [id number] [place] [address] [place] Monocytes (Bld) [#/Vol] 0.21 10*3/uL Normal <0.87 [facility] Comment on above: Order Comment: Speci men Type: BLOOD SPECIMENOrdering Facility: [facility] Address: [address] Performed By: #### 5 7021-8 ####[facility] LABCLIA [id number] [place] [address] [place] Monocytes/100 WBC (Bld) 1.7 % Normal [facility] Comment on above: Order Comment: Speci men Type: BLOOD SPECIMENOrdering Facility: [facility] Address: [address] [place], [place] [address] Performed By: #### 5 7021-8 ####[facility] LABCLIA [id number] [place] [address] [place] MYELO% 1.7 % Normal [facility] Comment on above: Order Comment: Speci men Type: BLOOD SPECIMENOrdering Facility: [facility] Address: [address] [place], [place] [address] Performed By: #### 5 7021-8 ####[facility] LABCLIA [id number] [place] [address] [place] Neutrophils (Bld) [#/Vol] 10.64 10*3/uL High 1.45-7.50 [facility] Comment on above: Order Comment: Speci men Type: BLOOD SPECIMENOrdering Facility: [facility] Address: [address] Performed By: #### 5 7021-8 ####[facility] LABCLIA [id number] [place] [address] [place] Neutrophils/100 WBC (Bld) 87.2 % Normal [facility] Comment on above: Order Comment: Speci men Type: BLOOD SPECIMENOrdering Facility: [facility] Address: [address] Performed By: #### 5 7021-8 ####[facility] LABCLIA [id number] [place] [address] [place] Nucleated RBC (Bld) [#/Vol] 10*3/uL Normal <0.01 [facility] Comment on above: Order Comment: Speci men Type: BLOOD SPECIMENOrdering Facility: [facility] Address: [address] [place], [place] [address] Performed By: #### 5 7021-8 ####[facility] LABCLIA [id number] [place] [address] [place] Nucleated RBC/100 WBC (Bld) [Ratio] 0.0 /100 WBC Normal [facility] Comment on above: Order Comment: Speci men Type: BLOOD SPECIMENOrdering Facility: [facility] Address: [address] [place], [place] [address] Performed By: #### 5 7021-8 ####[facility] LABCLIA [id number] [place] [address] [place] Ovalocytes LM Ql (Bld) Few Normal [facility] Comment on above: Order Comment: Speci men Type: BLOOD SPECIMENOrdering Facility: [facility] Address: [address] Performed By: #### 5 7021-8 ####[facility] LABCLIA [id number] [place] [address] [place] Platelet mean volume (Bld) [Entitic vol] 9.9 fL Normal 9.0-12.7 [facility] Comment on above: Order Comment: Speci men Type: BLOOD SPECIMENOrdering Facility: [facility] Address: [address] [place], [place] [address] Performed By: #### 5 7021-8 ####[facility] LABCLIA [id number] [place] [address] [place] Platelets (Bld) [#/Vol] 363 10*3/uL Normal 150-400 [facility] Comment on above: Order Comment: Speci men Type: BLOOD SPECIMENOrdering Facility: [facility] Address: [address] [place], [place] [address] Performed By: #### 5 7021-8 ####[facility] LABCLIA [id number] [place] [address] [place] Platelets Estimate (Bld) [#/Vol] Adequate Normal [facility] Comment on above: Order Comment: Speci men Type: BLOOD SPECIMENOrdering Facility: [facility] Address: [address] [place], [place] [address] Performed By: #### 5 7021-8 ####[facility] LABIA [id number] [place] [address] [place] Polychromasia LM Ql (Bld) Slight Normal [facility] Comment on above: Order Comment: Speci men Type: BLOOD SPECIMENOrdering Facility: [facility] Address: [address] [place] [address] Performed By: #### 5 7021-8 ####[facility] LABIA [id number] [place] [address] [place] RBC (Bld) [#/Vol] 2.87 10*6/uL Low 4.20-6.00 [facility] Comment on above: Order Comment: Speci men Type: BLOOD SPECIMENOrdering Facility: [facility] Address: [address] [place] [address] Performed By: #### 5 7021-8 ####[facility] LABIA [id number] [place] [address] [place] RED CELL MORPH Reviewed: see result s of individual morphologies Normal [facility] Comment on above: Order Comment: Speci men Type: BLOOD SPECIMENOrdering Facility: [facility] Address: [address] Performed By: #### 5 7021-8 ####[facility] LABCLIA [id number] [place] [address] [place] WBC (Bld) [#/Vol] 12.20 10*3/uL High 3.70-11.00 [facility] Comment on above: Order Comment: Speci men Type: BLOOD SPECIMENOrdering Facility: [facility] Address: [address] Performed By: #### 5 7021-8 ####[facility] LABCLIA [id number] [place] [address] [place] WBC Left Shift Ql (Bld) Present Normal [facility] Comment on above: Order Comment: Speci men Type: BLOOD SPECIMENOrdering Facility: [facility] Address: [address] Performed By: #### 5 7021-8 ####[facility] LABCLIA [id number] [place] [address] [place] Basophils (Bld) [#/Vol] 0.37 10*3/uL High <0.11 [facility] Comment on above: Order Comment: Speci men Type: BLOOD SPECIMENOrdering Facility: [facility] Address: [address] Performed By: #### 5 7021-8 ####[facility] LABCLIA [id number] [place] [address] [place] Basophils/100 WBC (Bld) 2.7 % Normal [facility] Comment on above: Order Comment: Speci men Type: BLOOD SPECIMENOrdering Facility: [facility] Address: [address] Performed By: #### 5 7021-8 ####[facility] LABCLIA [id number] [place] [address] [place] Differential cell count method Nom (Bld) Manual Normal [facility] Comment on above: Order Comment: Speci men Type: BLOOD SPECIMENOrdering Facility: [facility] Address: [address] [place] [address] Performed By: #### 5 7021-8 ####[facility] LABCLIA [id number] [place] [address] [place] Eosinophils (Bld) [#/Vol] 0.00 10*3/uL Normal <0.46 [facility] Comment on above: Order Comment: Speci men Type: BLOOD SPECIMENOrdering Facility: [facility] Address: [address] [place] [address] Performed By: #### 5 7021-8 ####[facility] LABCLIA [id number] [place] [address] [place] Eosinophils/100 WBC (Bld) 0.0 % Normal [facility] Comment on above: Order Comment: Speci men Type: BLOOD SPECIMENOrdering Facility: [facility] Address: [address] [place] [address] Performed By: #### 5 7021-8 ####[facility] LABIA [id number] [place] [address] [place] Erythrocyte distribution width (RBC) [Ratio] 14.0 % Normal 11.5-15.0 [facility] Comment on above: Order Comment: Speci men Type: BLOOD SPECIMENOrdering Facility: [facility] Address: [address] [place], [place] [address] Performed By: #### 5 7021-8 ####[facility] LABCLIA [id number] [place] [address] [place] Hematocrit (Bld) [Volume fraction] 20.3 % Low 39.0-51.0 [facility] Comment on above: Order Comment: Speci men Type: BLOOD SPECIMENOrdering Facility: [facility] Address: [address] Performed By: #### 5 7021-8 ####[facility] LABIA [id number] [place] [address] [place] Hemoglobin (Bld) [Mass/Vol] 6.4 g/dL Low 13.0-17.0 [facility] Comment on above: Order Comment: Speci men Type: BLOOD SPECIMENOrdering Facility: [facility] Address: [address] Performed By: #### 5 7021-8 ####[facility] LABIA [id number] [place] [address] [place] Lymphocytes (Bld) [#/Vol] 2.07 10*3/uL Normal 1.00-4.00 [facility] Comment on above: Order Comment: Speci men Type: BLOOD SPECIMENOrdering Facility: [facility] Address: [address] [place], [place] [address] Performed By: #### 5 7021-8 ####[facility] LABIA [id number] [address] [place] Lymphocytes/100 WBC (Bld) 15.0 % Normal [facility] Comment on above: Order Comment: Speci men Type: BLOOD SPECIMENOrdering Facility: [facility] Address: [address] Performed By: #### 5 7021-8 ####[facility] LABIA [id number] [place] [address] [place] MCH (RBC) [Entitic mass] 30.3 pg Normal 26.0-34.0 [facility] Comment on above: Order Comment: Speci men Type: BLOOD SPECIMENOrdering Facility: [facility] Address: [address] Performed By: #### 5 7021-8 ####[facility] LABCLIA [id number] [address] [place] MCHC (RBC) [Mass/Vol] 31.5 g/dL Normal 30.5-36.0 [facility] Comment on above: Order Comment: Speci men Type: BLOOD SPECIMENOrdering Facility: [facility] Address: [address] [place] [address] Performed By: #### 5 7021-8 ####[facility] LABIA [id number] [place] [address] [place] MCV (RBC) [Entitic vol] 96.2 fL Normal 80.0-100.0 [facility] Comment on above: Order Comment: Speci men Type: BLOOD SPECIMENOrdering Facility: [facility] Address: [address] [place], [place] [address] Performed By: #### 5 7021-8 ####[facility] LABIA [id number] [place] [address] [place] Monocytes (Bld) [#/Vol] 0.48 10*3/uL Normal <0.87 [facility] Comment on above: Order Comment: Speci men Type: BLOOD SPECIMENOrdering Facility: [facility] Address: [address] [place] [address] Performed By: #### 5 7021-8 ####[facility] LABIA [id number] [address] [place] Monocytes/100 WBC (Bld) 3.5 % Normal [facility] Comment on above: Order Comment: Speci men Type: BLOOD SPECIMENOrdering Facility: [facility] Address: [address] [place] [address] Performed By: #### 5 7021-8 ####[facility] LABIA [id number] [place] [id number] [address] [place] Neutrophils (Bld) [#/Vol] 10.87 10*3/uL High 1.45-7.50 [facility] Comment on above: Order Comment: Speci men Type: BLOOD SPECIMENOrdering Facility: [facility] Address: [address] [place] [address] Performed By: #### 5 7021-8 ####[facility] LABCLIA [id number] [place] [address] [place] Neutrophils/100 WBC (Bld) 78.8 % Normal [facility] Comment on above: Order Comment: Speci men Type: BLOOD SPECIMENOrdering Facility: [facility] Address: [address] [place] [address] Performed By: #### 5 7021-8 ####[facility] LABCLIA [id number] [place] [address] [place] Nucleated RBC (Bld) [#/Vol] 10*3/uL Normal <0.01 [facility] Comment on above: Order Comment: Speci men Type: BLOOD SPECIMENOrdering Facility: [facility] Address: [address] [place], [place] [address] Performed By: #### 5 7021-8 ####[facility] LABCLIA [id number] [place] [address] [place] Nucleated RBC/100 WBC (Bld) [Ratio] 0.0 /100 WBC Normal [facility] Comment on above: Order Comment: Speci men Type: BLOOD SPECIMENOrdering Facility: [facility] Address: [address] [place], [place] [address] Performed By: #### 5 7021-8 ####[facility] LABCLIA [id number] [place] [address] [place] Ovalocytes LM Ql (Bld) Few Normal [facility] Comment on above: Order Comment: Speci men Type: BLOOD SPECIMENOrdering Facility: [facility] Address: [address] [place] [address], [place] [address] Performed By: #### 5 7021-8 ####[facility] LABCLIA [id number] [place] [address] [place] Platelet mean volume (Bld) [Entitic vol] 10.4 fL Normal 9.0-12.7 [facility] Comment on above: Order Comment: Speci men Type: BLOOD SPECIMENOrdering Facility: [facility] Address: [address] [place] [address] Performed By: #### 5 7021-8 ####[facility] LABIA [id number] [place] [address] [place] Platelets (Bld) [#/Vol] 393 10*3/uL Normal 150-400 [facility] Comment on above: Order Comment: Speci men Type: BLOOD SPECIMENOrdering Facility: [facility] Address: [address] [place], [place] Performed By: #### 5 7021-8 ####[facility] LABIA [id number] [place] [address] [place] Platelets Estimate (Bld) [#/Vol] Adequate Normal [facility] Comment on above: Order Comment: Speci men Type: BLOOD SPECIMENOrdering Facility: [facility] Address: [address] [place] [address] Performed By: #### 5 7021-8 ####[facility] LABCLIA [id number] [place] [address] [place] Polychromasia LM Ql (Bld) Slight Normal [facility] Comment on above: Order Comment: Speci men Type: BLOOD SPECIMENOrdering Facility: [facility] Address: [address] [place] [address] Performed By: #### 5 7021-8 ####[facility] LABCLIA [id number] [address] [id number] [address] [place] RBC (Bld) [#/Vol] 2.11 10*6/uL Low 4.20-6.00 [facility] Comment on above: Order Comment: Speci men Type: BLOOD SPECIMENOrdering Facility: [facility] Address: [address] [place] [address] Performed By: #### 5 7021-8 ####[facility] LABIA [id number] [place] [address] [place] RED CELL MORPH Reviewed: see result s of individual morphologies Normal [facility] Comment on above: Order Comment: Speci men Type: BLOOD SPECIMENOrdering Facility: [facility] Address: [address] [place] [address] Performed By: #### 5 7021-8 ####[facility] LABCLIA [id number] [place] [address] [place] WBC (Bld) [#/Vol] 13.80 10*3/uL High 3.70-11.00 [facility] Comment on above: Order Comment: Speci men Type: BLOOD SPECIMENOrdering Facility: [facility] Address: [address] [place], [place] [address] Performed By: #### 5 7021-8 ####[facility] LABCLIA [id number] [place] [address] [place] Basophils (Bld) [#/Vol] 0.00 10*3/uL Normal <0.11 [facility] Comment on above: Order Comment: Speci men Type: BLOOD SPECIMENOrdering Facility: [facility] Address: [address] [place], [place] [address] Performed By: #### 5 7021-8 ####[facility] LABCLIA [id number] [place] [address] [place] Basophils/100 WBC (Bld) 0.0 % Normal [facility] Comment on above: Order Comment: Speci men Type: BLOOD SPECIMENOrdering Facility: [facility] Address: [address] Performed By: #### 5 7021-8 ####[facility] LABCLIA [id number] [place] [address] [place] Differential cell count method Nom (Bld) Manual Normal [facility] Comment on above: Order Comment: Speci men Type: BLOOD SPECIMENOrdering Facility: [facility] Address: [address] Performed By: #### 5 7021-8 ####[facility] LABCLIA [id number] [place] [address] [place] Eosinophils (Bld) [#/Vol] 0.59 10*3/uL High <0.46 [facility] Comment on above: Order Comment: Speci men Type: BLOOD SPECIMENOrdering Facility: [facility] Address: [address] [place], [place] [address] Performed By: #### 5 7021-8 ####[facility] LABIA [id number] [address] [place] Eosinophils/100 WBC (Bld) 3.4 % Normal [facility] Comment on above: Order Comment: Speci men Type: BLOOD SPECIMENOrdering Facility: [facility] Address: [address] [place], [place] [address] Performed By: #### 5 7021-8 ####[facility] LABIA [id number] [place] [address] [place] Erythrocyte distribution width (RBC) [Ratio] 13.9 % Normal 11.5-15.0 [facility] Comment on above: Order Comment: Speci men Type: BLOOD SPECIMENOrdering Facility: [facility] Address: [address] [place], [place] [address] Performed By: #### 5 7021-8 ####[facility] LABCLIA [id number] [address] [place] Hematocrit (Bld) [Volume fraction] 26.0 % Low 39.0-51.0 [facility] Comment on above: Order Comment: Speci men Type: BLOOD SPECIMENOrdering Facility: [facility] Address: [address] [place] [address] Performed By: #### 5 7021-8 ####[facility] LABCLIA [id number] [place] [address] [place] Hemoglobin (Bld) [Mass/Vol] 8.6 g/dL Low 13.0-17.0 [facility] Comment on above: Order Comment: Speci men Type: BLOOD SPECIMENOrdering Facility: [facility] Address: [address] [place] [address] Performed By: #### 5 7021-8 ####[facility] LABCLIA [id number] [place] [address] [place] Lymphocytes (Bld) [#/Vol] 6.33 10*3/uL High 1.00-4.00 [facility] Comment on above: Order Comment: Speci men Type: BLOOD SPECIMENOrdering Facility: [facility] Address: [address] [place] [address] Performed By: #### 5 7021-8 ####[facility] LABIA [id number] [address] [place] Lymphocytes/100 WBC (Bld) 36.2 % Normal [facility] Comment on above: Order Comment: Speci men Type: BLOOD SPECIMENOrdering Facility: [facility] Address: [address] [place], [place] [address] Performed By: #### 5 7021-8 ####[facility] LABCLIA [id number] [place] [address] [place] MCH (RBC) [Entitic mass] 30.7 pg Normal 26.0-34.0 [facility] Comment on above: Order Comment: Speci men Type: BLOOD SPECIMENOrdering Facility: [facility] Address: [address] Performed By: #### 5 7021-8 ####[facility] LABIA [id number] [place] [address] [place] MCHC (RBC) [Mass/Vol] 33.1 g/dL Normal 30.5-36.0 [facility] Comment on above: Order Comment: Speci men Type: BLOOD SPECIMENOrdering Facility: [facility] Address: [address] Performed By: #### 5 7021-8 ####[facility] LABIA [id number] [place] [address] [place] MCV (RBC) [Entitic vol] 92.9 fL Normal 80.0-100.0 [facility] Comment on above: Order Comment: Speci men Type: BLOOD SPECIMENOrdering Facility: [facility] Address: [address] Performed By: #### 5 7021-8 ####[facility] LABIA [id number] [place] [address] [place] Metamyelocytes/100 WBC (Bld) 0.9 % Normal [facility] Comment on above: Order Comment: Speci men Type: BLOOD SPECIMENOrdering Facility: [facility] Address: [address] [place] [address] Performed By: #### 5 7021-8 ####[facility] LABIA [id number] [place] [address] [place] Monocytes (Bld) [#/Vol] 1.05 10*3/uL High <0.87 [facility] Comment on above: Order Comment: Speci men Type: BLOOD SPECIMENOrdering Facility: [facility] Address: [address] [place] [address] Performed By: #### 5 7021-8 ####[facility] LABCLIA [id number] [place] [address] [place] Monocytes/100 WBC (Bld) 6.0 % Normal [facility] Comment on above: Order Comment: Speci men Type: BLOOD SPECIMENOrdering Facility: [facility] Address: [address] [place] [address] Performed By: #### 5 7021-8 ####[facility] LABCLIA [id number] [place] [address] [place] MYELO% 2.6 % Normal [facility] Comment on above: Order Comment: Speci men Type: BLOOD SPECIMENOrdering Facility: [facility] Address: [address] [place] [address] Performed By: #### 5 7021-8 ####[facility] LABCLIA [id number] [place] [address] [place] Neutrophils (Bld) [#/Vol] 8.90 10*3/uL High 1.45-7.50 [facility] Comment on above: Order Comment: Speci men Type: BLOOD SPECIMENOrdering Facility: [facility] Address: [address] [place], [place] [address] Performed By: #### 5 7021-8 ####[facility] LABCLIA [id number] [place] [address] [place] Neutrophils/100 WBC (Bld) 50.9 % Normal [facility] Comment on above: Order Comment: Speci men Type: BLOOD SPECIMENOrdering Facility: [facility] Address: [address] [place], [place] [address] Performed By: #### 5 7021-8 ####[facility] LABCLIA [id number] [place] [address] [place] Nucleated RBC (Bld) [#/Vol] 10*3/uL Normal <0.01 [facility] Comment on above: Order Comment: Speci men Type: BLOOD SPECIMENOrdering Facility: [facility] Address: [address] [place] [address] Performed By: #### 5 7021-8 ####[facility] LABCLIA [id number] [address] [place] Nucleated RBC/100 WBC (Bld) [Ratio] 0.0 /100 WBC Normal [facility] Comment on above: Order Comment: Speci men Type: BLOOD SPECIMENOrdering Facility: [facility] Address: [address] Performed By: #### 5 7021-8 ####[facility] LABIA [id number] [place] [address] [place] Ovalocytes LM Ql (Bld) Few Normal [facility] Comment on above: Order Comment: Speci men Type: BLOOD SPECIMENOrdering Facility: [facility] Address: [address] Performed By: #### 5 7021-8 ####[facility] LABCLIA [id number] [place] [address] [place] Platelet mean volume (Bld) [Entitic vol] 10.1 fL Normal 9.0-12.7 [facility] Comment on above: Order Comment: Speci men Type: BLOOD SPECIMENOrdering Facility: [facility] Address: [address] Performed By: #### 5 7021-8 ####[facility] LABCLIA [id number] [place] [address] [place] Platelets (Bld) [#/Vol] 371 10*3/uL Normal 150-400 [facility] Comment on above: Order Comment: Speci men Type: BLOOD SPECIMENOrdering Facility: [facility] Address: [address] [place], [place] [address] Performed By: #### 5 7021-8 ####[facility] LABCLIA [id number] [place] [address] [place] Platelets Estimate (Bld) [#/Vol] Adequate Normal [facility] Comment on above: Order Comment: Speci men Type: BLOOD SPECIMENOrdering Facility: [facility] Address: [address] [place] [address] Performed By: #### 5 7021-8 ####[facility] LABCLIA [id number] [place] [address] [place] Polychromasia LM Ql (Bld) Slight Normal [facility] Comment on above: Order Comment: Speci men Type: BLOOD SPECIMENOrdering Facility: [facility] Address: [address] [place] [address] Performed By: #### 5 7021-8 ####[facility] LABIA [id number] [place] [address] [place] RBC (Bld) [#/Vol] 2.80 10*6/uL Low 4.20-6.00 [facility] Comment on above: Order Comment: Speci men Type: BLOOD SPECIMENOrdering Facility: [facility] Address: [address] [place], [place] [address] Performed By: #### 5 7021-8 ####[facility] LABIA [id number] [place] [address] [place] RED CELL MORPH Reviewed: see result s of individual morphologies Normal [facility] Comment on above: Order Comment: Speci men Type: BLOOD SPECIMENOrdering Facility: [facility] Address: [address] [place], [place] [address] Performed By: #### 5 7021-8 ####[facility] LABIA [id number] [place] [address] [place] WBC (Bld) [#/Vol] 17.49 10*3/uL High 3.70-11.00 [facility] Comment on above: Order Comment: Speci men Type: BLOOD SPECIMENOrdering Facility: [facility] Address: [address] [place] [address] Performed By: #### 5 7021-8 ####[facility] LABIA [id number] [place] [address] [place] WBC Left Shift Ql (Bld) Present Normal [facility] Comment on above: Order Comment: Speci men Type: BLOOD SPECIMENOrdering Facility: [facility] Address: [address] [place] [address] Performed By: #### 5 7021-8 ####[facility] LABIA [id number] [place] [address] [place] CBC panel Auto (Bld)on 07-05 Erythrocyte distribution width (RBC) [Ratio] 15.8 % High 11.5-15.0 [facility] Comment on above: Order Comment: Speci men Type: BLOOD SPECIMENOrdering Facility: [facility] Address: [address] [place] [address] Performed By: #### 5 8410-2 ####[facility] LABIA [id number] [place] [address] [place] Hematocrit (Bld) [Volume fraction] 27.1 % Low 39.0-51.0 [facility] Comment on above: Order Comment: Speci men Type: BLOOD SPECIMENOrdering Facility: [facility] Address: [address] [place], [place] [address] Performed By: #### 5 8410-2 ####[facility] LABIA [id number] [place] [address] [place] Hemoglobin (Bld) [Mass/Vol] 8.7 g/dL Low 13.0-17.0 [facility] Comment on above: Order Comment: Speci men Type: BLOOD SPECIMENOrdering Facility: [facility] Address: [address] [place], [place] [address] Performed By: #### 5 8410-2 ####[facility] [id number] [address] [place] [facility] MCH (RBC) [Entitic mass] 29.8 pg Normal 26.0-34.0 [facility] Comment on above: Order Comment: Speci men Type: BLOOD SPECIMENOrdering Facility: [facility] Address: [address] [place] [address] Performed By: #### 5 8410-2 ####[facility] [id number] [address] [place] MCHC (RBC) [Mass/Vol] 32.1 g/dL Normal 30.5-36.0 [facility] Comment on above: Order Comment: Speci men Type: BLOOD SPECIMENOrdering Facility: [facility] Address: [address] [place] [address] Performed By: #### 5 8410-2 ####[facility] [id number] [address] [place] [facility] MCV (RBC) [Entitic vol] 92.8 fL Normal 80.0-100.0 [facility] Comment on above: Order Comment: Speci men Type: BLOOD SPECIMENOrdering Facility: [facility] Address: [address] [place] [address] Performed By: #### 5 8410-2 ####[facility] [id number] [address] [place] Nucleated RBC (Bld) [#/Vol] 0.13 10*3/uL High <0.01 [facility] Comment on above: Order Comment: Speci men Type: BLOOD SPECIMENOrdering Facility: [facility] Address: [address] [place] [address] Performed By: #### 5 8410-2 ####[facility] [id number] [address] [id number], [place] [address] [place] Platelet mean volume (Bld) [Entitic vol] 10.1 fL Normal 9.0-12.7 [facility] Comment on above: Order Comment: Speci men Type: BLOOD SPECIMENOrdering Facility: [facility] Address: [address] [place] [address] Performed By: #### 5 8410-2 ####[facility] LABCLIA [id number] [place] [address] [place] Platelets (Bld) [#/Vol] 387 10*3/uL Normal 150-400 [facility] Comment on above: Order Comment: Speci men Type: BLOOD SPECIMENOrdering Facility: [facility] Address: [address] [place] [address] Performed By: #### 5 8410-2 ####[facility] LABIA [id number] [place] [address] [place] RBC (Bld) [#/Vol] 2.92 10*6/uL Low 4.20-6.00 [facility] Comment on above: Order Comment: Speci men Type: BLOOD SPECIMENOrdering Facility: [facility] Address: [address] [place], [place] [address] Performed By: #### 5 8410-2 ####[facility] LABIA [id number] [place] [address] [place] WBC (Bld) [#/Vol] 18.51 10*3/uL High 3.70-11.00 [facility] Comment on above: Order Comment: Speci men Type: BLOOD SPECIMENOrdering Facility: [facility] Address: [address] [place], [place] [address] Performed By: #### 5 8410-2 ####[facility] LABCLIA [id number] [place] [address] [place] Erythrocyte distribution width (RBC) [Ratio] 15.3 % High 11.5-15.0 [facility] Comment on above: Order Comment: Speci men Type: BLOOD SPECIMENOrdering Facility: [facility] Address: [address] [place] [address] Performed By: #### 5 8410-2 ####[facility] LABCLIA [id number] [place] [address] [place] Hematocrit (Bld) [Volume fraction] 26.6 % Low 39.0-51.0 [facility] Comment on above: Order Comment: Speci men Type: BLOOD SPECIMENOrdering Facility: [facility] Address: [address] [place] [address] Performed By: #### 5 8410-2 ####[facility] LABIA [id number] [address] [place] Hemoglobin (Bld) [Mass/Vol] 8.9 g/dL Low 13.0-17.0 [facility] Comment on above: Order Comment: Speci men Type: BLOOD SPECIMENOrdering Facility: [facility] Address: [address] [place] [address] Performed By: #### 5 8410-2 ####[facility] LABIA [id number] [address] [place] MCH (RBC) [Entitic mass] 30.5 pg Normal 26.0-34.0 [facility] Comment on above: Order Comment: Speci men Type: BLOOD SPECIMENOrdering Facility: [facility] Address: [address] Performed By: #### 5 8410-2 ####[facility] LABIA [id number] [place] [address] [place] MCHC (RBC) [Mass/Vol] 33.5 g/dL Normal 30.5-36.0 [facility] Comment on above: Order Comment: Speci men Type: BLOOD SPECIMENOrdering Facility: [facility] Address: [address] [place] [address] Performed By: #### 5 8410-2 ####[facility] LABIA [id number] [address] [place] MCV (RBC) [Entitic vol] 91.1 fL Normal 80.0-100.0 [facility] Comment on above: Order Comment: Speci men Type: BLOOD SPECIMENOrdering Facility: [facility] Address: [address] [place] [address] Performed By: #### 5 8410-2 ####[facility] LABIA [id number] [place] [address] [place] Nucleated RBC (Bld) [#/Vol] 0.05 10*3/uL High <0.01 [facility] Comment on above: Order Comment: Speci men Type: BLOOD SPECIMENOrdering Facility: [facility] Address: [address] [place], [place] [address] Performed By: #### 5 8410-2 ####[facility] LABIA [id number] [place] [address] [place] Platelet mean volume (Bld) [Entitic vol] 10.1 fL Normal 9.0-12.7 [facility] Comment on above: Order Comment: Speci men Type: BLOOD SPECIMENOrdering Facility: [facility] Address: [address] [place] [address] Performed By: #### 5 8410-2 ####[facility] LABIA [id number] [place] [address] [place] Platelets (Bld) [#/Vol] 411 10*3/uL High 150-400 [facility] Comment on above: Order Comment: Speci men Type: BLOOD SPECIMENOrdering Facility: [facility] Address: [address] [place] [address] Performed By: #### 5 8410-2 ####[facility] LABIA [id number] [place] [address] [place] RBC (Bld) [#/Vol] 2.92 10*6/uL Low 4.20-6.00 [facility] Comment on above: Order Comment: Speci men Type: BLOOD SPECIMENOrdering Facility: [facility] Address: [address] [place] [address] Performed By: #### 5 8410-2 ####[facility] LABCLIA [id number] [place] [address] [place] WBC (Bld) [#/Vol] 17.39 10*3/uL High 3.70-11.00 [facility] Comment on above: Order Comment: Speci men Type: BLOOD SPECIMENOrdering Facility: [facility] Address: [address] [place] [address] Performed By: #### 5 8410-2 ####[facility] LABCLIA [id number] [place] [address] [place] CONSULTon 07-05-2023 CONSULT Normal [facility] CONSULT PROGon 07-05-2023 CONSULT PROG Normal [facility] CONSULT PROG Normal [facility] CT BRAIN WO IVCONon 07-05-20 CT BRAIN WO IVCON Normal [facility] Calcium.ionized [Moles/Vol]o n 07-05-2023 Calcium.ionized (Bld) [Mass/Vol] 1.32 mmol/L High 1.08-1.30 [facility] Comment on above: Order Comment: Speci men Type: BLOOD SPECIMENOrdering Facility: [facility] Address: [address] [place] [address] Performed By: #### 1 995-0 ####[facility] LABCLIA [id number] [place] [address] [place] Calcium.ionized adjusted to pH 7.4 (Bld) [Moles/Vol] 1.27 mmol/L Normal 1.08-1.30 [facility] Comment on above: Order Comment: Speci men Type: BLOOD SPECIMENOrdering Facility: [facility] Address: [address] [place] [address] Performed By: #### 1 995-0 ####[facility] LABCLIA [id number] [place] [id number] [place] Comprehensive metabolic 2000 panelon 07-05-2023 Albumin [Mass/Vol] 2.2 g/dL Low 3.9-4.9 [facility] Comment on above: Order Comment: Speci men Type: BLOOD SPECIMENOrdering Facility: [facility] Address: [address] [place] [address] Performed By: #### 2 4323-8, 2777-1, HSTNT, ####[facility] LABIA [id number] [place] [address] [place] ALP [Catalytic activity/Vol] 65 U/L Normal 38-113 [facility] Comment on above: Order Comment: Speci men Type: BLOOD SPECIMENOrdering Facility: [facility] Address: [address] [place] [address] Performed By: #### 2 4323-8, 2777-1, HSTNT, ####[facility] LABIA [id number] [place] [address] [place] ALT [Catalytic activity/Vol] 55 U/L High 10-54 [facility] Comment on above: Order Comment: Speci men Type: BLOOD SPECIMENOrdering Facility: [facility] Address: [address] Performed By: #### 2 4323-8, 2777-1, HSTNT, ####[facility] LABCLIA [id number] [place] [id number] [place] Anion gap [Moles/Vol] 7 mmol/L Low 9-18 [facility] Comment on above: Order Comment: Speci men Type: BLOOD SPECIMENOrdering Facility: [facility] Address: [address] [place] [address] Performed By: #### 2 4323-8, 2777-1, HSTNT, ####[facility] LABCLIA [id number] [place] [address] [place] AST [Catalytic activity/Vol] 47 U/L High 14-40 [facility] Comment on above: Order Comment: Speci men Type: BLOOD SPECIMENOrdering Facility: [facility] Address: [address] [place] [address] Performed By: #### 2 4323-8, 277-1, HSTNT, ####[facility] LABCLIA [id number] [place] [address] [place] Bilirubin [Mass/Vol] 0.5 mg/dL Normal 0.2-1.3 [facility] Comment on above: Order Comment: Speci men Type: BLOOD SPECIMENOrdering Facility: [facility] Address: [address] [place] [address] Performed By: #### 2 4323-8, 2776-10, HSTNT, ####[facility] LABCLIA [id number] [place] [address] [place] Calcium [Mass/Vol] 8.4 mg/dL Low 8.5-10.2 [facility] Comment on above: Order Comment: Speci men Type: BLOOD SPECIMENOrdering Facility: [facility] Address: [address] Performed By: #### 2 4323-8, 277-1, HSTNT, ####[facility] LABCLIA [id number] [place] [address] [place] Chloride [Moles/Vol] 118 mmol/L High 97-105 [facility] Comment on above: Order Comment: Speci men Type: BLOOD SPECIMENOrdering Facility: [facility] Address: [address] [address] Performed By: #### 2 4323-8, 2777-1, HSTNT, ####[facility] LABIA [id number] [place] [address] [place] CO2 [Moles/Vol] 24 mmol/L Normal 22-30 [facility] Comment on above: Order Comment: Speci men Type: BLOOD SPECIMENOrdering Facility: [facility] Address: [address] [address] Performed By: #### 2 4323-8, 2777-1, HSTNT, ####[facility] LABIA [id number] [place] [address] [place] Creatinine [Mass/Vol] 1.75 mg/dL High 0.73-1.22 [facility] Comment on above: Order Comment: Speci men Type: BLOOD SPECIMENOrdering Facility: [facility] Address: [address] [place] [address] Performed By: #### 2 4323-8, 2777-1, HSTNT, ####[facility] LABIA [id number] [place] [address] [place] Creatinine and Glomerular filtration rate.predicted panel (S/P/Bld) 45 mL/min/1.73m??? Low >=60 [facility] Comment on above: Order Comment: Speci men Type: BLOOD SPECIMENOrdering Facility: [facility] Address: [address] [place] [address] Result Comment: Dayan mated Glomerular Filtration Rate (eGFR) is calculated using the 2020 CKD-EPI creatinine equation. This equation utilizes serum creatinine, sex, and age as parameters. The creatinine assay has traceable calibration to isotope dilution-mass spectrometry. Refer to KDIGO guidelines for clinical interpretation. In patients with unstable renal function, e.g. those with acute kidney injury, the eGFR may not accurately reflect actual GFR. Performed By: #### 2 4323-8, 2777-1, HSTNT, ####[facility] LABCLIA [id number] [place] [id number] [place] Glucose [Mass/Vol] 163 mg/dL High 74-99 [facility] Comment on above: Order Comment: Iesha marin Type: BLOOD SPECIMENOrdering Facility: [facility] Address: [address] [id number] Result Comment: The [place] Diabetes Association (ADA) provides guidance for cutoff values for fasting glucose and random glucose. The ADA defines fasting as no caloric intake for at least 8 hours. Fasting plasma glucose results between 100 to 125 mg/dL indicate increased risk for diabetes (prediabetes).Fasting plasma glucose results greater than or equal to 126 mg/dL meet the criteria for diagnosis of diabetes. In the absence of unequivocal hyperglycemia, results should be confirmed by repeat testing. In a patient with classic symptoms of hyperglycemia or hyperglycemic crisis, random plasma glucose results greater than or equal to 200 mg/dL meet the criteria for diagnosis of diabetes.Reference: Standards of Medical Care in Diabetes 2016, [place] [employer]. Diabetes Care. 2016.39(Suppl 1). Performed By: #### 2 4323-8, 2777-, HSTNT, ####[facility] LABCLIA [id number] [place] [address] [place] Potassium [Moles/Vol] 4.7 mmol/L Normal 3.7-5.1 [facility] Comment on above: Order Comment: Iesha marin Type: BLOOD SPECIMENOrdering Facility: [facility] Address: [address] [place] [address] Performed By: #### 2 4323-8, 2777-1, HSTNT, ####[facility] LABCLIA [id number] [address] [address] [place] Protein [Mass/Vol] 4.4 g/dL Low 6.3-8.0 [facility] Comment on above: Order Comment: Speci men Type: BLOOD SPECIMENOrdering Facility: [facility] Address: [address] Performed By: #### 2 4323-8, 2777-1, HSTNT, ####[facility] LABCLIA [id number] [place] [address] [place] Sodium [Moles/Vol] 149 mmol/L High 136-144 [facility] Comment on above: Order Comment: Speci men Type: BLOOD SPECIMENOrdering Facility: [facility] Address: [address] [address] Performed By: #### 2 4323-8, 277-1, HSTNT, ####[facility] LABCLIA [id number] [place] [address] [place] Urea nitrogen [Mass/Vol] 57 mg/dL High 9-24 [facility] Comment on above: Order Comment: Speci men Type: BLOOD SPECIMENOrdering Facility: [facility] Address: [address] [address] Performed By: #### 2 4323-8, 2776-, HSTNT, ####[facility] LABCLIA [id number] [place] [address] [place] ECG COMPLETEon 07-05-2023 ECG COMPLETE Normal [facility] Gas and Carbon monoxide pane l (BldV)on 07-05-2023 Base excess Calc (BldV) [Moles/Vol] 0 mmol/L Normal 0-2 [facility] Comment on above: Order Comment: Speci men Type: VENOUS BLOOD SPECIMENOrdering Facility: [facility] Address: [address] [address] Performed By: #### 2 4344-4 ####[facility] LABCLIA [id number] [place] [address] [place] Body temperature 98.6 [degF] Normal [facility] Comment on above: Order Comment: Speci men Type: VENOUS BLOOD SPECIMENOrdering Facility: [facility] Address: [address] [place], [place] [address] Performed By: #### 2 4344-4 ####[facility] LABCLIA [id number] [place] [address] [place] Calcium.ionized (Bld) [Mass/Vol] 1.30 mmol/L Normal 1.08-1.30 [facility] Comment on above: Order Comment: Speci men Type: VENOUS BLOOD SPECIMENOrdering Facility: [facility] Address: [address] [address] Performed By: #### 2 4344-4 ####[facility] LABIA [id number] [place] [address] [place] Calcium.ionized adjusted to pH 7.4 (BldA) [Moles/Vol] 1.28 mmol/L Normal 1.08-1.30 [facility] Comment on above: Order Comment: Speci men Type: VENOUS BLOOD SPECIMENOrdering Facility: [facility] Address: [address] [address] Performed By: #### 2 4344-4 ####[facility] LABIA [id number] [place] [address] [place] Carboxyhemoglobin (BldV) [Mass fraction] 1.4 % Normal 0.0-2.0 [facility] Comment on above: Order Comment: Speci men Type: VENOUS BLOOD SPECIMENOrdering Facility: [facility] Address: [address] Result Comment: Carb oxyhemoglobin Reference Range for Smokers: 2.0-8.0% Performed By: #### 2 4344-4 ####[facility] LABIA [id number] [place] [address] [place] CO2 (BldV) [Partial pressure] 44 mm[Hg] Normal 42-55 [facility] Comment on above: Order Comment: Speci men Type: VENOUS BLOOD SPECIMENOrdering Facility: [facility] Address: [address] Performed By: #### 2 4344-4 ####[facility] LABCLIA [id number] [place] [address] [place] FIO2 30 % Normal [facility] Comment on above: Order Comment: Speci men Type: VENOUS BLOOD SPECIMENOrdering Facility: [facility] Address: [address] Performed By: #### 2 4344-4 ####[facility] LABCLIA [id number] [place] [address] [place] Glucose [Mass/Vol] 150 mg/dL High 60-105 [facility] Comment on above: Order Comment: Speci men Type: VENOUS BLOOD SPECIMENOrdering Facility: [facility] Address: [address] Performed By: #### 2 4344-4 ####[facility] LABCLIA [id number] [place] [address] [place] HCO3 (Bld) [Moles/Vol] 25 mmol/L Normal 24-28 [facility] Comment on above: Order Comment: Speci men Type: VENOUS BLOOD SPECIMENOrdering Facility: [facility] Address: [address] Performed By: #### 2 4344-4 ####[facility] LABCLIA [id number] [place] [address] [place] Hematocrit (Bld) [Volume fraction] 27.6 % Low 39.0-51.0 [facility] Comment on above: Order Comment: Speci men Type: VENOUS BLOOD SPECIMENOrdering Facility: [facility] Address: [address] Performed By: #### 2 4344-4 ####[facility] LABCLIA [id number] [place] [address] [place] Hemoglobin (Bld) [Mass/Vol] 8.9 g/dL Low 13.0-17.0 [facility] Comment on above: Order Comment: Speci men Type: VENOUS BLOOD SPECIMENOrdering Facility: [facility] Address: [address] [address] Performed By: #### 2 4344-4 ####[facility] LABIA [id number] [place] [address] [place] Lactate [Moles/Vol] 1.3 mmol/L Normal 0.5-2.2 [facility] Comment on above: Order Comment: Speci men Type: VENOUS BLOOD SPECIMENOrdering Facility: [facility] Address: [address] [address] Performed By: #### 2 4344-4 ####[facility] LABIA [id number] [place] [address] [place] Methemoglobin (Bld) [Mass fraction] 1.5 % Normal 0.0-1.5 [facility] Comment on above: Order Comment: Speci men Type: VENOUS BLOOD SPECIMENOrdering Facility: [facility] Address: [address] Performed By: #### 2 4344-4 ####[facility] LABIA [id number] [place] [address] [place] O2 THERAPY Ventilator Normal [facility] Comment on above: Order Comment: Speci men Type: VENOUS BLOOD SPECIMENOrdering Facility: [facility] Address: [address] Performed By: #### 2 4344-4 ####[facility] LABIA [id number] [place] [address] [place] Oxygen (BldV) [Partial pressure] 40 mm[Hg] Normal 35-45 [facility] Comment on above: Order Comment: Speci men Type: VENOUS BLOOD SPECIMENOrdering Facility: [facility] Address: [address] Performed By: #### 2 4344-4 ####[facility] LABIA [id number] [place] [address] [place] Oxygen saturation in Venous blood 72 % Normal 60-85 [facility] Comment on above: Order Comment: Speci men Type: VENOUS BLOOD SPECIMENOrdering Facility: [facility] Address: [address] Performed By: #### 2 4344-4 ####[facility] LABIA [id number] [place] [address] [place] Oxyhemoglobin (BldV) [Mass fraction] 70 % Normal 60-85 [facility] Comment on above: Order Comment: Speci men Type: VENOUS BLOOD SPECIMENOrdering Facility: [facility] Address: [address] Performed By: #### 2 4344-4 ####[facility] LABIA [id number] [place] [address] [place] pH (BldV) 7.37 [pH] Normal 7.32-7.42 [facility] Comment on above: Order Comment: Speci men Type: VENOUS BLOOD SPECIMENOrdering Facility: [facility] Address: [address] Performed By: #### 2 4344-4 ####[facility] LABIA [id number] [place] [address] [place] Potassium [Moles/Vol] 4.6 mmol/L Normal 3.5-5.0 [facility] Comment on above: Order Comment: Speci men Type: VENOUS BLOOD SPECIMENOrdering Facility: [facility] Address: [address] Performed By: #### 2 4344-4 ####[facility] LABCLIA [id number] [place] [address] [place] Sodium [Moles/Vol] 145 mmol/L High 136-144 [facility] Comment on above: Order Comment: Speci men Type: VENOUS BLOOD SPECIMENOrdering Facility: [facility] Address: [address] [place] [address] Performed By: #### 2 4344-4 ####[facility] LABIA [id number] [place] [address] [place] HIGH SENSITIVITY TROPONIN To n 07-05-2023 Troponin T.cardiac High sensitivity method [Mass/Vol] 21 ng/L High <12 [facility] Comment on above: Order Comment: Speci men Type: BLOOD SPECIMENOrdering Facility: [facility] Address: [address] [place] [address] Result Comment: When assessing risk for acute coronary syndromes: In patients undergoing blood draw greater than or equal to 2 hours from symptom onset, with history of very low to moderate risk and non-ischemic ECG, an initial hs-Troponin T less than 12 ng/L AND a 1 hour delta hs-Troponin T less than 3 ng/L should be considered very low risk for 30 day MACE. Performed By: #### H STNT ####[facility] LABIA [id number] [place] [address] [place] Troponin T.cardiac High sensitivity method [Mass/Vol] 22 ng/L High <12 [facility] Comment on above: Order Comment: Speci men Type: BLOOD SPECIMENOrdering Facility: [facility] Address: [address] [address] Result Comment: When assessing risk for acute coronary syndromes: In patients undergoing blood draw greater than or equal to 2 hours from symptom onset, with history of very low to moderate risk and non-ischemic ECG, an initial hs-Troponin T less than 12 ng/L AND a 1 hour delta hs-Troponin T less than 3 ng/L should be considered very low risk for 30 day MACE. Performed By: #### 2 4323-8, 2777-1, HSTNT, ####[facility] LABCLIA [id number] [place] [id number] [place] HISTORY PHYSICALon 3 HISTORY PHYSICAL Normal [facility] MEDICAL EMERon 07-05-2023 MEDICAL [place] Normal [facility] Normal [facility] Normal [facility] Magnesium SerPl-mCncon 07-05 Magnesium [Mass/Vol] 1.8 mg/dL Normal 1.7-2.3 [facility] Comment on above: Order Comment: Speci men Type: BLOOD SPECIMENOrdering Facility: [facility] Address: [address] [place] [address] Performed By: #### 2 4323-8, 2777-1, HSTNT, ####[facility] LABCLIA [id number] [address] [place] [facility] Magnesium [Mass/Vol] 2.0 mg/dL Normal 1.7-2.3 [facility] Comment on above: Order Comment: Speci men Type: BLOOD SPECIMENOrdering Facility: [facility] Address: [address] [place] [address] Performed By: #### 2 4321-2, ####[facility] LABCLIA [id number] [place] [address] [place] NURSING PROGon 07-05-2023 NURSING PROG Normal [facility] NURSING PROG Normal [facility] NURSING PROG Normal [facility] NURSING PROG Normal [facility] Osmolality SerPlon 3 Osmolality [Osmolality] 324 mosm/kg High 275-300 [facility] Comment on above: Order Comment: Speci men Type: BLOOD SPECIMENOrdering Facility: [facility] Address: [address] [place], [place] [address] Performed By: #### 2 692-2 ####[facility] LABCLIA [id number] [place] [address] [place] PT panel Coag (PPP)on 2022 INR Coag (PPP) [Relative time] 1.1 {INR} Normal 0.9-1.3 [facility] Comment on above: Order Comment: Speci men Type: BLOOD SPECIMENOrdering Facility: [facility] Address: [address] Result Comment: Ella min K Antagonist (VKA) Therapeutic Range: INR 2 to 3 (Target INR of 2.5)Note: For patients treated with VKA drugs, such as warfarin, the [place] [employer] 2012 Guideline recommends a therapeutic INR range of 2 to 3 (target INR of 2.5). This recommendation includes high-risk patients with antiphospholipid syndrome with previous arterial or venous thromboembolism, current-generation mechanical or bioprosthetic aortic heart valve replacement.Note: Patients with mechanical aortic valve replacement and additional risk factors for thromboembolic events (atrial fibrillation, previous thromboembolism, LV dysfunction, hypercoagulable conditions) or an older generation mechanical AVR (i.e., ball in-Cage) or any mechanical MVR should have a INR therapeutic range of 2.5 to 3.5 (target INR of 3).Cee GH, et al. Chest 2012, 141:7S-47SNishimura RA, et al. [facility] 2017, 70: 252-289 Performed By: #### 3 4528-0, 88878-9 ####[facility] LABIA [id number] [place] [id number] [place] PT Coag (PPP) [Time] 11.3 s Normal 9.7-13.0 [facility] Comment on above: Order Comment: Speci men Type: BLOOD SPECIMENOrdering Facility: [facility] Address: [address] [place] [id number] Performed By: #### 3 4528-0, 55702-8 ####[facility] LABIA [id number] [place] [address] [place] PTT, ANTICOAGULANT THERAPYon 07-05-2023 aPTT Coag (PPP) [Time] s High 23.0-32.4 [facility] Comment on above: Order Comment: Speci men Type: BLOOD SPECIMENOrdering Facility: [facility] Address: [address] [place] [address] Result Comment: Samp le checked for clot. Result rechecked. Performed By: #### P TTAC ####[facility] LABCLIA [id number] [place] [address] [place] Phosphate SerPl-mCncon 07-05 Phosphate [Mass/Vol] 3.5 mg/dL Normal 2.7-4.8 [facility] Comment on above: Order Comment: Speci men Type: BLOOD SPECIMENOrdering Facility: [facility] Address: [address] [place] [address] Performed By: #### 2 4323-8, 2777-1, HSTNT, 29337-1 ####[facility] LABCLIA [id number] [place] [address] [place] Phosphate [Mass/Vol] 2.8 mg/dL Normal 2.7-4.8 [facility] Comment on above: Order Comment: Speci men Type: BLOOD SPECIMENOrdering Facility: [facility] Address: [address] [place] [address] Performed By: #### 2 777-1 ####[facility] LABIA [id number] [place] [address] [place] STAPH AUREUS PCRon 3 STAPH AUREUS PCR STAPH AUREUS PCR: Indeterminate for Staphylococcus aureus by PCR. Submit repeat specimen if clinically indicated. Indeterminate for Staphylococcus aureus by PCR. Submit repeat specimen if clinically indicated. Negative for Staphylococcus aureus Abnormal [facility] Comment on above: Order Comment: Speci men Type: SWAB OF INTERNAL NOSEOrdering Facility: [facility] Address: [address] [place] [address] Performed By: #### S APCR ####[facility] LABCLIA [id number] [place] [address] [place] THERAPY NTon 07-05-2023 THERAPY NT Normal [facility] TYPE + SCREENon 07-05-2023 ABO B Normal [facility] Comment on above: Order Comment: Speci men Type: BLOOD SPECIMENOrdering Facility: [facility] Address: [address] [place] [address] Performed By: #### T SCR ####[facility] B[facility] BANKCLIA [id number] [address] [place] HISTORICAL AB SCR STATUS Negative Normal [facility] Comment on above: Order Comment: Speci men Type: BLOOD SPECIMENOrdering Facility: [facility] Address: [address] [place] [address] Performed By: #### T SCR ####[facility] BLOOD BANKCLIA [id number] [place] [address] [place] Rh Nom (Bld) Positive Normal [facility] Comment on above: Order Comment: Speci men Type: BLOOD SPECIMENOrdering Facility: [facility] Address: [address] [place] [address] Performed By: #### T SCR ####[facility] BLOOD BANKCLIA [id number] [place] [address] [place] TYPE AND SCREEN EXPIRATION 07/08/2023 23:59 Normal [facility] Comment on above: Order Comment: Speci men Type: BLOOD SPECIMENOrdering Facility: [facility] Address: [address] [place] [address] Performed By: #### T SCR ####[facility] BLOOD BANKCLIA [id number] [place] [address] [place] Tacrolimus Bld-mCncon 2022 Tacrolimus (Bld) [Mass/Vol] 2.1 ng/mL Low 5.0-20.0 [facility] Comment on above: Order Comment: Speci men Type: BLOOD SPECIMENOrdering Facility: [facility] Address: [address] [place] [address] Result Comment: Nayely vidualized target levels for a given patient will depend on many factors (including the type of organ transplant, time since transplantation, concurrent medications, and other clinical factors), and should be assessed by those health care providers experienced in the management of immunosuppression. Reference ranges and high/low indicator flags are provided as general guidelines only. The treating physician must determine appropriate target levels/dosing based on the specific clinical situation. Test performed by chemiluminescent immunoassay using [employer] Alinity i. Performed By: #### 1 1253-2 ####[facility] LABIA [id number] [address] [place] URINALYSIS, REFLEX MICROSCOP ICon 07-05-2023 Bilirubin Ql (U) Negative Normal Negative [facility] Comment on above: Order Comment: Speci men Type: URINE SPECIMENOrdering Facility: [facility] Address: [address] [place] [address] Performed By: #### L [id number] ####[facility] LABIA [id number] [address] [place] Clarity (Unsp spec) Clear Normal Clear [facility] Comment on above: Order Comment: Speci men Type: URINE SPECIMENOrdering Facility: [facility] Address: [address] [place] [address] Performed By: #### L [id number] ####[facility] LABCLIA [id number] [address] [place] [facility] Color (U) Light Yellow Normal Yellow [facility] Comment on above: Order Comment: Speci men Type: URINE SPECIMENOrdering Facility: [facility] Address: [address] [address] Performed By: #### L [id number] ####[facility] LABCLIA [id number] [address] [place] Glucose Test strip (U) [Mass/Vol] Negative Normal Trace, Negative [facility] Comment on above: Order Comment: Speci men Type: URINE SPECIMENOrdering Facility: [facility] Address: [address] [address] Performed By: #### L [id number] ####[facility] LABCLIA [id number] [place] [address] [place] Hemoglobin Ql (U) Negative Normal Negative, Trace [facility] Comment on above: Order Comment: Speci men Type: URINE SPECIMENOrdering Facility: [facility] Address: [address] Performed By: #### L [id number] ####[facility] LABCLIA [id number] [address] [place] Hyaline casts (Urine sed) [#/Area] 1-3 /LPF Abnormal 0 /LPF [facility] Comment on above: Order Comment: Speci men Type: URINE SPECIMENOrdering Facility: [facility] Address: [address] Performed By: #### L [id number] ####[facility] LABCLIA [id number] [address] [place] Ketones Ql (U) Negative Normal Trace, Negative [facility] Comment on above: Order Comment: Speci men Type: URINE SPECIMENOrdering Facility: [facility] Address: [address] Performed By: #### L [id number] ####[facility] LABCLIA [id number] [place] [address] [place] Leukocyte esterase Test strip Ql (U) Negative Normal Negative, 25 Edward/uL [facility] Comment on above: Order Comment: Speci men Type: URINE SPECIMENOrdering Facility: [facility] Address: [address] Performed By: #### L [id number] ####[facility] LABCLIA [id number] [place] [address] [place] Nitrite Ql (U) Negative Normal Negative [facility] Comment on above: Order Comment: Speci men Type: URINE SPECIMENOrdering Facility: [facility] Address: [address] [place] [address] Performed By: #### L [id number] ####[facility] LABIA [id number] [place] [address] [place] pH (U) 6.0 [pH] Normal 5.0-8.0 [facility] Comment on above: Order Comment: Speci men Type: URINE SPECIMENOrdering Facility: [facility] Address: [address] [place] [address] Performed By: #### L [id number] ####[facility] LABIA [id number] [address] Protein (U) [Mass/Vol] 1+ Abnormal Trace, Negative [facility] Comment on above: Order Comment: Speci men Type: URINE SPECIMENOrdering Facility: [facility] Address: [address] [place] [address] Performed By: #### L [id number] ####[facility] LABIA [id number] [place] [address] [place] RBC LM.HPF (Urine sed) [#/Area] 0-3 /HPF Normal 0-3 /HPF [facility] Comment on above: Order Comment: Speci men Type: URINE SPECIMENOrdering Facility: [facility] Address: [address] [place] [address] Performed By: #### L [id number] ####[facility] LABIA [id number] [place] [address] [place] Specific gravity (U) [Rel density] 1.030 Normal 1.005-1.030 [facility] Comment on above: Order Comment: Speci men Type: URINE SPECIMENOrdering Facility: [facility] Address: [address] Performed By: #### L [id number] ####[facility] LABCLIA [id number] [place] [address] [place] Urobilinogen Ql (U) Negative Normal Negative [facility] Comment on above: Order Comment: Speci men Type: URINE SPECIMENOrdering Facility: [facility] Address: [address] Performed By: #### L [id number] ####[facility] LABCLIA [id number] [place] [address] [place] WBC LM.HPF (Urine sed) [#/Area] 11-25 /HPF Abnormal 0-5 /HPF [facility] Comment on above: Order Comment: Speci men Type: URINE SPECIMENOrdering Facility: [facility] Address: [address] [place] [address] Performed By: #### L [id number] ####[facility] LABCLIA [id number] [place] [address] [place] Upper GI endoscopyon 023 Upper GI endoscopy Normal [facility] XR ABDOMEN 1V SUPINEon 07-05 XR ABDOMEN 1V SUPINE Normal [facility] XR CHEST 1V FRONTAL PORTon 0 07-05-2023 XR CHEST 1V FRONTAL PORT Normal [facility] aPTT PPPon 07-05-2023 aPTT Coag (PPP) [Time] 32.7 s High 23.0-32.4 [facility] Comment on above: Order Comment: Speci men Type: BLOOD SPECIMENOrdering Facility: [facility] Address: [address] [place], [place] [address] Performed By: #### 3 4528-0, 90764-0 ####[facility] LABCLIA [id number] [place] [address] [place] Basic metabolic 2000 panelon 07-04-2023 Anion gap [Moles/Vol] 11 mmol/L Normal 9-18 [facility] Comment on above: Order Comment: Speci men Type: BLOOD SPECIMENOrdering Facility: [facility] Address: [address] [place], [place] [address] Performed By: #### 2 4321-2 ####[facility] LABCLIA [id number] [place] [address] [place] Calcium [Mass/Vol] 9.4 mg/dL Normal 8.5-10.2 [facility] Comment on above: Order Comment: Speci men Type: BLOOD SPECIMENOrdering Facility: [facility] Address: [address] [place] [address] Performed By: #### 2 4321-2 ####[facility] LABCLIA [id number] [place] [address] [place] Chloride [Moles/Vol] 108 mmol/L High 97-105 [facility] Comment on above: Order Comment: Speci men Type: BLOOD SPECIMENOrdering Facility: [facility] Address: [address] [place], [place] [address] Performed By: #### 2 4321-2 ####[facility] LABCLIA [id number] [place] [address] [place] CO2 [Moles/Vol] 25 mmol/L Normal 22-30 [facility] Comment on above: Order Comment: Speci men Type: BLOOD SPECIMENOrdering Facility: [facility] Address: [address] [place], [place] [address] Performed By: #### 2 4321-2 ####[facility] LABCLIA [id number] [place] [address] [place] Creatinine [Mass/Vol] 1.56 mg/dL High 0.73-1.22 [facility] Comment on above: Order Comment: Speci men Type: BLOOD SPECIMENOrdering Facility: [facility] Address: [address] [address] Performed By: #### 2 4321-2 ####[facility] LABIA [id number] [address] [place] Creatinine and Glomerular filtration rate.predicted panel (S/P/Bld) 51 mL/min/1.73m??? Low >=60 [facility] Comment on above: Order Comment: Iesha men Type: BLOOD SPECIMENOrdering Facility: [facility] Address: [address] [address] Result Comment: Dayan mated Glomerular Filtration Rate (eGFR) is calculated using the 2020 CKD-EPI creatinine equation. This equation utilizes serum creatinine, sex, and age as parameters. The creatinine assay has traceable calibration to isotope dilution-mass spectrometry. Refer to KDIGO guidelines for clinical interpretation. In patients with unstable renal function, e.g. those with acute kidney injury, the eGFR may not accurately reflect actual GFR. Performed By: #### 2 4321-2 ####[facility] LABCLIA [id number] [place] [address] [place] Glucose [Mass/Vol] 133 mg/dL High 74-99 [facility] Comment on above: Order Comment: Iesha marin Type: BLOOD SPECIMENOrdering Facility: [facility] Address: [address] [place] [address] Result Comment: The [place] Diabetes Association (ADA) provides guidance for cutoff values for fasting glucose and random glucose. The ADA defines fasting as no caloric intake for at least 8 hours. Fasting plasma glucose results between 100 to 125 mg/dL indicate increased risk for diabetes (prediabetes).Fasting plasma glucose results greater than or equal to 126 mg/dL meet the criteria for diagnosis of diabetes. In the absence of unequivocal hyperglycemia, results should be confirmed by repeat testing. In a patient with classic symptoms of hyperglycemia or hyperglycemic crisis, random plasma glucose results greater than or equal to 200 mg/dL meet the criteria for diagnosis of diabetes.Reference: Standards of Medical Care in Diabetes 2016, [place] [employer] Association. Diabetes Care. 2016.39(Suppl 1). Performed By: #### 2 4321-2 ####[facility] LABCLIA [id number] [place] [address] [place] Potassium [Moles/Vol] 3.8 mmol/L Normal 3.7-5.1 [facility] Comment on above: Order Comment: Speci men Type: BLOOD SPECIMENOrdering Facility: [facility] Address: [address] [place] [address] Performed By: #### 2 4321-2 ####[facility] LABCLIA [id number] [place] [address] [place] Sodium [Moles/Vol] 144 mmol/L Normal 136-144 [facility] Comment on above: Order Comment: Speci men Type: BLOOD SPECIMENOrdering Facility: [facility] Address: [address] [place] [address] Performed By: #### 2 4321-2 ####[facility] LABCLIA [id number] [place] [address] [place] Urea nitrogen [Mass/Vol] 30 mg/dL High 9-24 [facility] Comment on above: Order Comment: Speci men Type: BLOOD SPECIMENOrdering Facility: [facility] Address: [address] [place] [address] Performed By: #### 2 4321-2 ####[facility] LABCLIA [id number] [place] [address] [place] CASE MANAGEMon 07-04-2023 CASE MANAGEM Normal [facility] CBC W Auto Differential pane l (Bld)on 07-04-2023 Basophils (Bld) [#/Vol] 0.00 10*3/uL Normal <0.11 [facility] Comment on above: Order Comment: Speci men Type: BLOOD SPECIMENOrdering Facility: [facility] Address: [address] [place] [address] Performed By: #### 5 7021-8 ####[facility] LABCLIA [id number] [place] [address] [place] Basophils/100 WBC (Bld) 0.0 % Normal [facility] Comment on above: Order Comment: Speci men Type: BLOOD SPECIMENOrdering Facility: [facility] Address: [address] [place] [address] Performed By: #### 5 7021-8 ####[facility] LABCLIA [id number] [place] [address] [place] Differential cell count method Nom (Bld) Manual Normal [facility] Comment on above: Order Comment: Speci men Type: BLOOD SPECIMENOrdering Facility: [facility] Address: [address] [place] [address] Performed By: #### 5 7021-8 ####[facility] LABCLIA [id number] [place] [address] [place] Eosinophils (Bld) [#/Vol] 0.09 10*3/uL Normal <0.46 [facility] Comment on above: Order Comment: Speci men Type: BLOOD SPECIMENOrdering Facility: [facility] Address: [address] [place] [address] Performed By: #### 5 7021-8 ####[facility] LABCLIA [id number] [address] [place] Eosinophils/100 WBC (Bld) 1.0 % Normal [facility] Comment on above: Order Comment: Speci men Type: BLOOD SPECIMENOrdering Facility: [facility] Address: [address] [place], [place] [address] Performed By: #### 5 7021-8 ####[facility] LABCLIA [id number] [place] [address] [place] Erythrocyte distribution width (RBC) [Ratio] 13.7 % Normal 11.5-15.0 [facility] Comment on above: Order Comment: Speci men Type: BLOOD SPECIMENOrdering Facility: [facility] Address: [address] Performed By: #### 5 7021-8 ####[facility] LABCLIA [id number] [place] [address] [place] Hematocrit (Bld) [Volume fraction] 33.5 % Low 39.0-51.0 [facility] Comment on above: Order Comment: Speci men Type: BLOOD SPECIMENOrdering Facility: [facility] Address: [address] Performed By: #### 5 7021-8 ####[facility] LABCLIA [id number] [place] [address] [place] Hemoglobin (Bld) [Mass/Vol] 10.6 g/dL Low 13.0-17.0 [facility] Comment on above: Order Comment: Speci men Type: BLOOD SPECIMENOrdering Facility: [facility] Address: [address] [place], [place] [address] Performed By: #### 5 7021-8 ####[facility] LABCLIA [id number] [place] [address] [place] Lymphocytes (Bld) [#/Vol] 2.31 10*3/uL Normal 1.00-4.00 [facility] Comment on above: Order Comment: Speci men Type: BLOOD SPECIMENOrdering Facility: [facility] Address: [address] [place], [place] [address] Performed By: #### 5 7021-8 ####[facility] LABCLIA [id number] [place] [address] [place] Lymphocytes/100 WBC (Bld) 25.0 % Normal [facility] Comment on above: Order Comment: Speci men Type: BLOOD SPECIMENOrdering Facility: [facility] Address: [address] Performed By: #### 5 7021-8 ####[facility] LABIA [id number] [place] [address] [place] MCH (RBC) [Entitic mass] 30.0 pg Normal 26.0-34.0 [facility] Comment on above: Order Comment: Speci men Type: BLOOD SPECIMENOrdering Facility: [facility] Address: [address] [place] [address] Performed By: #### 5 7021-8 ####[facility] [id number] [place] [address] [place] MCHC (RBC) [Mass/Vol] 31.6 g/dL Normal 30.5-36.0 [facility] Comment on above: Order Comment: Speci men Type: BLOOD SPECIMENOrdering Facility: [facility] Address: [address] [place] [address] Performed By: #### 5 7021-8 ####[facility] [id number] [place] [address] [place] MCV (RBC) [Entitic vol] 94.9 fL Normal 80.0-100.0 [facility] Comment on above: Order Comment: Speci men Type: BLOOD SPECIMENOrdering Facility: [facility] Address: [address] [place] [address] Performed By: #### 5 7021-8 ####[facility] [id number] [address] [place] Monocytes (Bld) [#/Vol] 0.28 10*3/uL Normal <0.87 [facility] Comment on above: Order Comment: Speci men Type: BLOOD SPECIMENOrdering Facility: [facility] Address: [address] [place] [address] Performed By: #### 5 7021-8 ####[facility] [id number] [address] Monocytes/100 WBC (Bld) 3.0 % Normal [facility] Comment on above: Order Comment: Speci men Type: BLOOD SPECIMENOrdering Facility: [facility] Address: [address] Performed By: #### 5 7021-8 ####[facility] LABCLIA [id number] [place] [address] [place] Neutrophils (Bld) [#/Vol] 6.57 10*3/uL Normal 1.45-7.50 [facility] Comment on above: Order Comment: Speci men Type: BLOOD SPECIMENOrdering Facility: [facility] Address: [address] [place], [place] [address] Performed By: #### 5 7021-8 ####[facility] LABCLIA [id number] [place] [address] [place] Neutrophils/100 WBC (Bld) 71.0 % Normal [facility] Comment on above: Order Comment: Speci men Type: BLOOD SPECIMENOrdering Facility: [facility] Address: [address] [place], [place] [address] Performed By: #### 5 7021-8 ####[facility] LABCLIA [id number] [place] [address] [place] Nucleated RBC (Bld) [#/Vol] 10*3/uL Normal <0.01 [facility] Comment on above: Order Comment: Speci men Type: BLOOD SPECIMENOrdering Facility: [facility] Address: [address] Performed By: #### 5 7021-8 ####[facility] LABCLIA [id number] [place] [address] [place] Nucleated RBC/100 WBC (Bld) [Ratio] 0.0 /100 WBC Normal [facility] Comment on above: Order Comment: Speci men Type: BLOOD SPECIMENOrdering Facility: [facility] Address: [address] [place], [place] [address] Performed By: #### 5 7021-8 ####[facility] LABCLIA [id number] [place] [address] [place] Ovalocytes LM Ql (Bld) Few Normal [facility] Comment on above: Order Comment: Speci men Type: BLOOD SPECIMENOrdering Facility: [facility] Address: [address] [place] [address] Performed By: #### 5 7021-8 ####[facility] LABCLIA [id number] [place] [address] [place] Platelet mean volume (Bld) [Entitic vol] 9.5 fL Normal 9.0-12.7 [facility] Comment on above: Order Comment: Speci men Type: BLOOD SPECIMENOrdering Facility: [facility] Address: [address] Performed By: #### 5 7021-8 ####[facility] LABIA [id number] [place] [address] [place] Platelets (Bld) [#/Vol] 423 10*3/uL High 150-400 [facility] Comment on above: Order Comment: Speci men Type: BLOOD SPECIMENOrdering Facility: [facility] Address: [address] [place] [address] Performed By: #### 5 7021-8 ####[facility] LABCLIA [id number] [place] [address] [place] Platelets Estimate (Bld) [#/Vol] Increased Normal [facility] Comment on above: Order Comment: Speci men Type: BLOOD SPECIMENOrdering Facility: [facility] Address: [address] [place] Performed By: #### 5 7021-8 ####[facility] LABCLIA [id number] [place] [address] [place] RBC (Bld) [#/Vol] 3.53 10*6/uL Low 4.20-6.00 [facility] Comment on above: Order Comment: Speci men Type: BLOOD SPECIMENOrdering Facility: [facility] Address: [address] [place] [address] Performed By: #### 5 7021-8 ####[facility] LABIA [id number] [place] [address] [place] RED CELL MORPH Reviewed: see result s of individual morphologies Normal [facility] Comment on above: Order Comment: Speci men Type: BLOOD SPECIMENOrdering Facility: [facility] Address: [address] [place] [address] Performed By: #### 5 7021-8 ####[facility] [id number] [place] [address] [place] WBC (Bld) [#/Vol] 9.25 10*3/uL Normal 3.70-11.00 [facility] Comment on above: Order Comment: Speci men Type: BLOOD SPECIMENOrdering Facility: [facility] Address: [address] [place] [address] Performed By: #### 5 7021-8 ####[facility] [id number] [place] [address] [place] Fact Xa PPP-aCncon 3 Coagulation factor X activated act Coag Qn (PPP) 1.18 IU/mL High <0.10 [facility] Comment on above: Order Comment: Speci men Type: BLOOD SPECIMENOrdering Facility: [facility] Address: [address] [place], [place] [address] Result Comment: The recommended therapeutic range for treatment of venous and arterial thrombosis with intravenous unfractionated heparin is an anti Xa activity level of 0.3 to 0.7 IU/mL. In patients with concomitant therapy with thrombolytic agents and/or platelet glycoprotein IIb/IIIa antagonists, the recommended therapeutic range is an anti Xa activity level of 0.2 to 0.5 IU/mL. Performed By: #### 3 217-7, PTTAC ####[facility]CLIA [id number] [place] [address] [place] Magnesium SerPl-mCncon 07-04 Magnesium [Mass/Vol] 2.0 mg/dL Normal 1.7-2.3 [facility] Comment on above: Order Comment: Speci men Type: BLOOD SPECIMENOrdering Facility: [facility] Address: [address] [place] [address] Performed By: #### 1 9123-9, 2777-1 ####[facility] LABIA [id number] [place] [address] [place] NUTRITIONon 07-04-2023 NUTRITION Normal [facility] PTT, ANTICOAGULANT THERAPYon 07-04-2023 aPTT Coag (PPP) [Time] 125.9 s High 23.0-32.4 [facility] Comment on above: Order Comment: Speci men Type: BLOOD SPECIMENOrdering Facility: [facility] Address: [address] [place] [address] Result Comment: Samp le checked for clot.Result rechecked. Performed By: #### 3 217-7, PTTAC ####[facility] LABIA [id number] [place] [address] [place] aPTT Coag (PPP) [Time] s High 23.0-32.4 [facility] Comment on above: Order Comment: Speci men Type: BLOOD SPECIMENOrdering Facility: [facility] Address: [address] [place] [address] Result Comment: Resu lt rechecked.Sample checked for clot. Performed By: #### P TTAC ####[facility]CLIA [id number] [address] aPTT Coag (PPP) [Time] s High 23.0-32.4 [facility] Comment on above: Order Comment: Speci men Type: BLOOD SPECIMENOrdering Facility: [facility] Address: [address] [address] Result Comment: Resu lt rechecked.Sample checked for clot. Performed By: #### P TTAC ####[facility]CLIA [id number] [address] [place] aPTT Coag (PPP) [Time] 28.4 s Normal 23.0-32.4 [facility] Comment on above: Order Comment: Iesha marin Type: BLOOD SPECIMENOrdering Facility: [facility] Address: [address] [address] Performed By: #### P TTAC ####[facility] LABIA [id number] [address] [place] Phosphate [facility]Pl[facility] Phosphate [Mass/Vol] 3.1 mg/dL Normal 2.7-4.8 [facility] Comment on above: Order Comment: Iesha marin Type: BLOOD SPECIMENOrdering Facility: [facility] Address: [address] [place] [address] Performed By: #### 1 9123-9, 2777-1 ####[facility] [id number] [address] [place] THERAPY NTon 07-04-2023 THERAPY NT Normal [facility] THERAPY NT Normal [facility] THERAPY NT Normal [facility] Tacrolimus Bld-mCncon 2022 Tacrolimus (Bld) [Mass/Vol] 2.4 ng/mL Low 5.0-20.0 [facility] Comment on above: Order Comment: Iesha marin Type: BLOOD SPECIMENOrdering Facility: [facility] Address: [address] [place] [address] Result Comment: Nayely vidualized target levels for a given patient will depend on many factors (including the type of organ transplant, time since transplantation, concurrent medications, and other clinical factors), and should be assessed by those health care providers experienced in the management of immunosuppression. Reference ranges and high/low indicator flags are provided as general guidelines only. The treating physician must determine appropriate target levels/dosing based on the specific clinical situation. Test performed by chemiluminescent immunoassay using Cumul[employer] Alinity i. Performed By: #### 1 1253-2 ####[facility]CLIA [id number] [place] [address] [place] XR MOD BARIUM SWALLOW W SPEE Trevor 07-04-2023 XR MOD BARIUM SWALLOW W SPEECH Normal [facility] aPTT PPPon 07-04-2023 aPTT Coag (PPP) [Time] 59.8 s High 23.0-32.4 [facility] Comment on above: Order Comment: Speci men Type: BLOOD SPECIMENOrdering Facility: [facility] Address: [address] [place] [address] Performed By: #### 1 4979-9 ####[facility] LABIA [id number] [address] [place] [facility] CBC W Auto Differential pane l (Bld)on 07-03-2023 Basophils (Bld) [#/Vol] 0.00 10*3/uL Normal <0.11 [facility] Comment on above: Order Comment: Speci men Type: BLOOD SPECIMENOrdering Facility: [facility] Address: [address] [place] [address] Performed By: #### 5 7021-8 ####[facility]CLIA [id number] [address] [place] Basophils/100 WBC (Bld) 0.0 % Normal [facility] Comment on above: Order Comment: Speci men Type: BLOOD SPECIMENOrdering Facility: [facility] Address: [address] [place] [address] Performed By: #### 5 7021-8 ####[facility]CLIA [id number] [address] [place] Differential cell count method Nom (Bld) Manual Normal [facility] Comment on above: Order Comment: Speci men Type: BLOOD SPECIMENOrdering Facility: [facility] Address: [address] [place], [place] [address] Performed By: #### 5 7021-8 ####[facility]CLIA [id number] [place] [address] [place] Eosinophils (Bld) [#/Vol] 0.16 10*3/uL Normal <0.46 [facility] Comment on above: Order Comment: Speci men Type: BLOOD SPECIMENOrdering Facility: [facility] Address: [address] Performed By: #### 5 7021-8 ####[facility]CLIA [id number] [address] [place] Eosinophils/100 WBC (Bld) 1.7 % Normal [facility] Comment on above: Order Comment: Speci men Type: BLOOD SPECIMENOrdering Facility: [facility] Address: [address] [place], [place] [address] Performed By: #### 5 7021-8 ####[facility]CL[facility] [id number] [place] [address] [place] Erythrocyte distribution width (RBC) [Ratio] 13.5 % Normal 11.5-15.0 [facility] Comment on above: Order Comment: Speci men Type: BLOOD SPECIMENOrdering Facility: [facility] Address: [address] Performed By: #### 5 7021-8 ####[facility]CLIA [id number] [address] [place] Hematocrit (Bld) [Volume fraction] 32.8 % Low 39.0-51.0 [facility] Comment on above: Order Comment: Speci men Type: BLOOD SPECIMENOrdering Facility: [facility] Address: [address] [place], [place] [address] Performed By: #### 5 7021-8 ####[facility] LABCLIA [id number] [place] [address] [place] Hemoglobin (Bld) [Mass/Vol] 10.7 g/dL Low 13.0-17.0 [facility] Comment on above: Order Comment: Speci men Type: BLOOD SPECIMENOrdering Facility: [facility] Address: [address] [place], [place] [address] Performed By: #### 5 7021-8 ####[facility] LABCLIA [id number] [place] [address] [place] Lymphocytes (Bld) [#/Vol] 1.83 10*3/uL Normal 1.00-4.00 [facility] Comment on above: Order Comment: Speci men Type: BLOOD SPECIMENOrdering Facility: [facility] Address: [address] [place] [address] Performed By: #### 5 7021-8 ####[facility] LABIA [id number] [place] [address] [place] Lymphocytes/100 WBC (Bld) 19.0 % Normal [facility] Comment on above: Order Comment: Speci men Type: BLOOD SPECIMENOrdering Facility: [facility] Address: [address] [place], [place] [address] Performed By: #### 5 7021-8 ####[facility] LABIA [id number] [place] [address] [place] MCH (RBC) [Entitic mass] 30.7 pg Normal 26.0-34.0 [facility] Comment on above: Order Comment: Speci men Type: BLOOD SPECIMENOrdering Facility: [facility] Address: [address] [place], [place] [address] Performed By: #### 5 7021-8 ####[facility] LABIA [id number] [place] [address] [place] MCHC (RBC) [Mass/Vol] 32.6 g/dL Normal 30.5-36.0 [facility] Comment on above: Order Comment: Speci men Type: BLOOD SPECIMENOrdering Facility: [facility] Address: [address] [place] [address] Performed By: #### 5 7021-8 ####[facility] LABCLIA [id number] [place] [address] [place] MCV (RBC) [Entitic vol] 94.0 fL Normal 80.0-100.0 [facility] Comment on above: Order Comment: Speci men Type: BLOOD SPECIMENOrdering Facility: [facility] Address: [address] [place] [address] Performed By: #### 5 7021-8 ####[facility] LABCLIA [id number] [address] [place] Metamyelocytes/100 WBC (Bld) 0.9 % Normal [facility] Comment on above: Order Comment: Speci men Type: BLOOD SPECIMENOrdering Facility: [facility] Address: [address] [place], [place] [address] Performed By: #### 5 7021-8 ####[facility] LABCLIA [id number] [place] [address] [place] Monocytes (Bld) [#/Vol] 0.41 10*3/uL Normal <0.87 [facility] Comment on above: Order Comment: Speci men Type: BLOOD SPECIMENOrdering Facility: [facility] Address: [address] [place], [place] [address] Performed By: #### 5 7021-8 ####[facility] LABCLIA [id number] [address] [place] Monocytes/100 WBC (Bld) 4.3 % Normal [facility] Comment on above: Order Comment: Speci men Type: BLOOD SPECIMENOrdering Facility: [facility] Address: [address] [place], [place] [address] Performed By: #### 5 7021-8 ####[facility] LABCLIA [id number] [place] [address] [place] MYELO% 3.4 % Normal [facility] Comment on above: Order Comment: Speci men Type: BLOOD SPECIMENOrdering Facility: [facility] Address: [address] [place], [place] [address] Performed By: #### 5 7021-8 ####[facility] LABCLIA [id number] [place] [address] [place] Neutrophils (Bld) [#/Vol] 6.80 10*3/uL Normal 1.45-7.50 [facility] Comment on above: Order Comment: Speci men Type: BLOOD SPECIMENOrdering Facility: [facility] Address: [address] [place], [place] [address] Performed By: #### 5 7021-8 ####[facility] LABCLIA [id number] [place] [address] [place] Neutrophils/100 WBC (Bld) 70.7 % Normal [facility] Comment on above: Order Comment: Speci men Type: BLOOD SPECIMENOrdering Facility: [facility] Address: [address] [place], [place] [address] Performed By: #### 5 7021-8 ####[facility] LABCLIA [id number] [place] [address] [place] Nucleated RBC (Bld) [#/Vol] 10*3/uL Normal <0.01 [facility] Comment on above: Order Comment: Speci men Type: BLOOD SPECIMENOrdering Facility: [facility] Address: [address] [place], [place] [address] Performed By: #### 5 7021-8 ####[facility] LABCLIA [id number] [place] [address] [place] Nucleated RBC/100 WBC (Bld) [Ratio] 0.0 /100 WBC Normal [facility] Comment on above: Order Comment: Speci men Type: BLOOD SPECIMENOrdering Facility: [facility] Address: [address] [place] [address] Performed By: #### 5 7021-8 ####[facility] LABCLIA [id number] [place] [address] [place] Platelet mean volume (Bld) [Entitic vol] 9.9 fL Normal 9.0-12.7 [facility] Comment on above: Order Comment: Speci men Type: BLOOD SPECIMENOrdering Facility: [facility] Address: [address] [place], [place] [address] Performed By: #### 5 7021-8 ####[facility] LABCLIA [id number] [place] [address] [place] Platelets (Bld) [#/Vol] 402 10*3/uL High 150-400 [facility] Comment on above: Order Comment: Speci men Type: BLOOD SPECIMENOrdering Facility: [facility] Address: [address] [place], [place] [address] Performed By: #### 5 7021-8 ####[facility] LABCLIA [id number] [place] [address] [place] Platelets Estimate (Bld) [#/Vol] Increased Normal [facility] Comment on above: Order Comment: Speci men Type: BLOOD SPECIMENOrdering Facility: [facility] Address: [address] [place], [place] [address] Performed By: #### 5 7021-8 ####[facility] LABCLIA [id number] [place] [address] [place] RBC (Bld) [#/Vol] 3.49 10*6/uL Low 4.20-6.00 [facility] Comment on above: Order Comment: Speci men Type: BLOOD SPECIMENOrdering Facility: [facility] Address: [address] [address] Performed By: #### 5 7021-8 ####[facility] LABCLIA [id number] [place] [address] [place] RED CELL MORPH Reviewed: unremarkable Normal [facility] Comment on above: Order Comment: Speci men Type: BLOOD SPECIMENOrdering Facility: [facility] Address: [address] [place] [address] Performed By: #### 5 7021-8 ####[facility] LABCLIA [id number] [place] [address] [place] WBC (Bld) [#/Vol] 9.62 10*3/uL Normal 3.70-11.00 [facility] Comment on above: Order Comment: Speci men Type: BLOOD SPECIMENOrdering Facility: [facility] Address: [address] [place] [address] Performed By: #### 5 7021-8 ####[facility] LABCLIA [id number] [place] [address] [place] WBC Left Shift Ql (Bld) Present Normal [facility] Comment on above: Order Comment: Speci men Type: BLOOD SPECIMENOrdering Facility: [facility] Address: [address] [place] [address] Performed By: #### 5 7021-8 ####[facility] LABCLIA [id number] [place] [address] [place] Magnesium SerPl-mCncon 07-03 Magnesium [Mass/Vol] 2.0 mg/dL Normal 1.7-2.3 [facility] Comment on above: Order Comment: Speci men Type: BLOOD SPECIMENOrdering Facility: [facility] Address: [address] [place] [address] Performed By: #### 1 9123-9, 2777-1 ####[facility] LABCLIA [id number] [place] [address] [place] PTT, ANTICOAGULANT THERAPYon 07-03-2023 aPTT Coag (PPP) [Time] 36.7 s High 23.0-32.4 [facility] Comment on above: Order Comment: Speci men Type: BLOOD SPECIMENOrdering Facility: [facility] Address: [address] [place] [address] Performed By: #### P TTAC ####[facility] [id number] [address] [place] aPTT Coag (PPP) [Time] 33.0 s High 23.0-32.4 [facility] Comment on above: Order Comment: Speci men Type: BLOOD SPECIMENOrdering Facility: [facility] Address: [address] [place] [address] Performed By: #### P TTAC ####[facility] [id number] [address] [place] OF [facility] aPTT Coag (PPP) [Time] 104.2 s High 23.0-32.4 [facility] Comment on above: Order Comment: Speci men Type: BLOOD SPECIMENOrdering Facility: [facility] Address: [address] [place] [address] Result Comment: Resu lt rechecked.Sample checked for clot. Performed By: #### P TTAC ####[facility] [id number] [address] OF [facility] aPTT Coag (PPP) [Time] 107.5 s High 23.0-32.4 [facility] Comment on above: Order Comment: Speci men Type: BLOOD SPECIMENOrdering Facility: [facility] Address: [address] [place] [address] Result Comment: Resu lt rechecked.Sample checked for clot. Performed By: #### P TTAC ####[facility] [id number] [place] [address] [place] Phosphate SerPl-ncon 07-03 Phosphate [Mass/Vol] 2.2 mg/dL Low 2.7-4.8 [facility] Comment on above: Order Comment: Specjose luis marin Type: BLOOD SPECIMENOrdering Facility: [facility] Address: [address] [place] [address] Performed By: #### 1 9123-9, 2777-1 ####[facility] LABCLIA [id number] [place] [address] [place] Tacrolimus Bld-[facility] 2022 Tacrolimus (Bld) [Mass/Vol] 2.9 ng/mL Low 5.0-20.0 [facility] Comment on above: Order Comment: Iesha marin Type: BLOOD SPECIMENOrdering Facility: [facility] Address: [address] [place] [address] Result Comment: Nayely vidualized target levels for a given patient will depend on many factors (including the type of organ transplant, time since transplantation, concurrent medications, and other clinical factors), and should be assessed by those health care providers experienced in the management of immunosuppression. Reference ranges and high/low indicator flags are provided as general guidelines only. The treating physician must determine appropriate target levels/dosing based on the specific clinical situation. Test performed by chemiluminescent immunoassay using Cumulux Alinity i. Performed By: #### 1 1253-2 ####[facility] LABIA [id number] [place] [address] [place] CBC W Auto Differential pane l (Bld)on 07-02-2023 Basophils (Bld) [#/Vol] 0.00 10*3/uL Normal <0.11 [facility] Comment on above: Order Comment: Iesha marin Type: BLOOD SPECIMENOrdering Facility: [facility] Address: [address] [place] [address] Performed By: #### 5 7021-8 ####[facility] LABCLIA [id number] [address] [place] Basophils/100 WBC (Bld) 0.0 % Normal [facility] Comment on above: Order Comment: Speci men Type: BLOOD SPECIMENOrdering Facility: [facility] Address: [address] [place] [address] Performed By: #### 5 7021-8 ####[facility] LABCLIA [id number] [place] [address] [place] Differential cell count method Nom (Bld) Manual Normal [facility] Comment on above: Order Comment: Speci men Type: BLOOD SPECIMENOrdering Facility: [facility] Address: [address] [place] [address] Performed By: #### 5 7021-8 ####[facility] LABCLIA [id number] [place] [address] [place] Eosinophils (Bld) [#/Vol] 0.24 10*3/uL Normal <0.46 [facility] Comment on above: Order Comment: Speci men Type: BLOOD SPECIMENOrdering Facility: [facility] Address: [address] [place], [place] [address] Performed By: #### 5 7021-8 ####[facility] LABCLIA [id number] [address] [place] Eosinophils/100 WBC (Bld) 2.7 % Normal [facility] Comment on above: Order Comment: Speci men Type: BLOOD SPECIMENOrdering Facility: [facility] Address: [address] [place], [place] [address] Performed By: #### 5 7021-8 ####[facility] LABCLIA [id number] [place] [address] [place] Erythrocyte distribution width (RBC) [Ratio] 13.3 % Normal 11.5-15.0 [facility] Comment on above: Order Comment: Speci men Type: BLOOD SPECIMENOrdering Facility: [facility] Address: [address] Performed By: #### 5 7021-8 ####[facility] LABCLIA [id number] [place] [address] [place] Hematocrit (Bld) [Volume fraction] 33.7 % Low 39.0-51.0 [facility] Comment on above: Order Comment: Speci men Type: BLOOD SPECIMENOrdering Facility: [facility] Address: [address] Performed By: #### 5 7021-8 ####[facility] LABIA [id number] [place] [address] [place] Hemoglobin (Bld) [Mass/Vol] 11.1 g/dL Low 13.0-17.0 [facility] Comment on above: Order Comment: Speci men Type: BLOOD SPECIMENOrdering Facility: [facility] Address: [address] [place], [place] [address] Performed By: #### 5 7021-8 ####[facility] LABIA [id number] [place] [address] [place] Lymphocytes (Bld) [#/Vol] 2.79 10*3/uL Normal 1.00-4.00 [facility] Comment on above: Order Comment: Speci men Type: BLOOD SPECIMENOrdering Facility: [facility] Address: [address] [place], [place] [address] Performed By: #### 5 7021-8 ####[facility] LABCLIA [id number] [place] [address] [place] Lymphocytes/100 WBC (Bld) 31.0 % Normal [facility] Comment on above: Order Comment: Speci men Type: BLOOD SPECIMENOrdering Facility: [facility] Address: [address] [place], [place] [address] Performed By: #### 5 7021-8 ####[facility] LABCLIA [id number] [address] [place] [facility] MCH (RBC) [Entitic mass] 30.9 pg Normal 26.0-34.0 [facility] Comment on above: Order Comment: Speci men Type: BLOOD SPECIMENOrdering Facility: [facility] Address: [address] [place] [address] Performed By: #### 5 7021-8 ####[facility] LABCLIA [id number] [address] MCHC (RBC) [Mass/Vol] 32.9 g/dL Normal 30.5-36.0 [facility] Comment on above: Order Comment: Speci men Type: BLOOD SPECIMENOrdering Facility: [facility] Address: [address] [place] [address] Performed By: #### 5 7021-8 ####[facility] LABCLIA [id number] [address] OF [facility] MCV (RBC) [Entitic vol] 93.9 fL Normal 80.0-100.0 [facility] Comment on above: Order Comment: Speci men Type: BLOOD SPECIMENOrdering Facility: [facility] Address: [address] [place] [address] Performed By: #### 5 7021-8 ####[facility] LABCLIA [id number] [place] [address] [place] Monocytes (Bld) [#/Vol] 0.32 10*3/uL Normal <0.87 [facility] Comment on above: Order Comment: Speci men Type: BLOOD SPECIMENOrdering Facility: [facility] Address: [address] [place], [place] [address] Performed By: #### 5 7021-8 ####[facility] LABCLIA [id number] [address] [place] Monocytes/100 WBC (Bld) 3.5 % Normal [facility] Comment on above: Order Comment: Speci men Type: BLOOD SPECIMENOrdering Facility: [facility] Address: [address] Performed By: #### 5 7021-8 ####[facility] LABCLIA [id number] [place] [address] [place] MYELO% 1.8 % Normal [facility] Comment on above: Order Comment: Speci men Type: BLOOD SPECIMENOrdering Facility: [facility] Address: [address] Performed By: #### 5 7021-8 ####[facility] LABCLIA [id number] [place] [address] [place] Neutrophils (Bld) [#/Vol] 5.49 10*3/uL Normal 1.45-7.50 [facility] Comment on above: Order Comment: Speci men Type: BLOOD SPECIMENOrdering Facility: [facility] Address: [address] Performed By: #### 5 7021-8 ####[facility] LABCLIA [id number] [place] [address] [place] Neutrophils/100 WBC (Bld) 61.0 % Normal [facility] Comment on above: Order Comment: Speci men Type: BLOOD SPECIMENOrdering Facility: [facility] Address: [address] [place] [address] Performed By: #### 5 7021-8 ####[facility] LABCLIA [id number] [place] [address] [place] Nucleated RBC (Bld) [#/Vol] 10*3/uL Normal <0.01 [facility] Comment on above: Order Comment: Speci men Type: BLOOD SPECIMENOrdering Facility: [facility] Address: [address] [place] [address] Performed By: #### 5 7021-8 ####[facility] LABCLIA [id number] [place] [address] [place] Nucleated RBC/100 WBC (Bld) [Ratio] 0.0 /100 WBC Normal [facility] Comment on above: Order Comment: Speci men Type: BLOOD SPECIMENOrdering Facility: [facility] Address: [address] [place] [address] Performed By: #### 5 7021-8 ####[facility] LABCLIA [id number] [place] [address] [place] Ovalocytes LM Ql (Bld) Few Normal [facility] Comment on above: Order Comment: Speci men Type: BLOOD SPECIMENOrdering Facility: [facility] Address: [address] [place] [address] Performed By: #### 5 7021-8 ####[facility] LABIA [id number] [place] [address] [place] Platelet mean volume (Bld) [Entitic vol] 9.6 fL Normal 9.0-12.7 [facility] Comment on above: Order Comment: Speci men Type: BLOOD SPECIMENOrdering Facility: [facility] Address: [address] [place] [address] Performed By: #### 5 7021-8 ####[facility] LABIA [id number] [place] [address] [place] Platelets (Bld) [#/Vol] 406 10*3/uL High 150-400 [facility] Comment on above: Order Comment: Speci men Type: BLOOD SPECIMENOrdering Facility: [facility] Address: [address] [place] [address] Performed By: #### 5 7021-8 ####[facility] LABCLIA [id number] [place] [address] [place] Platelets Estimate (Bld) [#/Vol] Increased Normal [facility] Comment on above: Order Comment: Speci men Type: BLOOD SPECIMENOrdering Facility: [facility] Address: [address] [place], [place] [address] Performed By: #### 5 7021-8 ####[facility] LABCLIA [id number] [place] [address] [place] Polychromasia LM Ql (Bld) Slight Normal [facility] Comment on above: Order Comment: Speci men Type: BLOOD SPECIMENOrdering Facility: [facility] Address: [address] [place], [place] [address] Performed By: #### 5 7021-8 ####[facility] LABCLIA [id number] [place] [address] [place] RBC (Bld) [#/Vol] 3.59 10*6/uL Low 4.20-6.00 [facility] Comment on above: Order Comment: Speci men Type: BLOOD SPECIMENOrdering Facility: [facility] Address: [address] [place], [place] [address] Performed By: #### 5 7021-8 ####[facility] LABCLIA [id number] [place] [address] [place] RED CELL MORPH Reviewed: see result s of individual morphologies Normal [facility] Comment on above: Order Comment: Speci men Type: BLOOD SPECIMENOrdering Facility: [facility] Address: [address] [place], [place] [address] Performed By: #### 5 7021-8 ####[facility] LABCLIA [id number] [place] [address] [place] WBC (Bld) [#/Vol] 9.00 10*3/uL Normal 3.70-11.00 [facility] Comment on above: Order Comment: Speci men Type: BLOOD SPECIMENOrdering Facility: [facility] Address: [address] [place], [place] [address] Performed By: #### 5 7021-8 ####[facility]CLIA [id number] [place] [address] [place] WBC Left Shift Ql (Bld) Present Normal [facility] Comment on above: Order Comment: Speci men Type: BLOOD SPECIMENOrdering Facility: [facility] Address: [address] [place] [address] Performed By: #### 5 7021-8 ####[facility]CLIA [id number] [place] [address] [place] CONSULT PROGon 07-02-2023 CONSULT PROG Normal [facility] CONSULT PROG Normal [facility] Comprehensive metabolic 2000 panelon 07-02-2023 Albumin [Mass/Vol] 3.4 g/dL Low 3.9-4.9 [facility] Comment on above: Order Comment: Speci men Type: BLOOD SPECIMENOrdering Facility: [facility] Address: [address] [place], [place] [address] Performed By: #### 2 4323-8, , 2776- ####[facility] LABCLIA [id number] [place] [address] [place] ALP [Catalytic activity/Vol] 90 U/L Normal 38-113 [facility] Comment on above: Order Comment: Speci men Type: BLOOD SPECIMENOrdering Facility: [facility] Address: [address] [place], [place] [address] Performed By: #### 2 4323-8, , 2776- ####[facility]CLIA [id number] [place] [address] [place] ALT [Catalytic activity/Vol] 29 U/L Normal 10-54 [facility] Comment on above: Order Comment: Speci men Type: BLOOD SPECIMENOrdering Facility: [facility] Address: [address] [place], [place] [address] Performed By: #### 2 4323-8, , 7- ####[facility]CLIA [id number] [place] [address] [place] Anion gap [Moles/Vol] 9 mmol/L Normal 9-18 [facility] Comment on above: Order Comment: Speci men Type: BLOOD SPECIMENOrdering Facility: [facility] Address: [address] [place] [address] Performed By: #### 2 4323-8, , 2776-10 ####[facility] LABCLIA [id number] [place] [address] [place] AST [Catalytic activity/Vol] 29 U/L Normal 14-40 [facility] Comment on above: Order Comment: Speci men Type: BLOOD SPECIMENOrdering Facility: [facility] Address: [address] [place] [address] Performed By: #### 2 4323-8, , 2776-10 ####[facility]CLIA [id number] [place] [address] [place] Bilirubin [Mass/Vol] 0.5 mg/dL Normal 0.2-1.3 [facility] Comment on above: Order Comment: Speci men Type: BLOOD SPECIMENOrdering Facility: [facility] Address: [address] [place] [address] Performed By: #### 2 4323-8, , 2776-10 ####[facility]CLIA [id number] [place] [address] [place] Calcium [Mass/Vol] 9.6 mg/dL Normal 8.5-10.2 [facility] Comment on above: Order Comment: Speci men Type: BLOOD SPECIMENOrdering Facility: [facility] Address: [address] [place] [address] Performed By: #### 2 4323-8, 99192-9, 2776-10 ####[facility]CLIA [id number] [place] [address] [place] Chloride [Moles/Vol] 107 mmol/L High 97-105 [facility] Comment on above: Order Comment: Speci men Type: BLOOD SPECIMENOrdering Facility: [facility] Address: [address] [place] [address] Performed By: #### 2 4323-8, 83890-7, 2777-1 ####[facility] LABCLIA [id number] [place] [address] [place] CO2 [Moles/Vol] 27 mmol/L Normal 22-30 [facility] Comment on above: Order Comment: Speci men Type: BLOOD SPECIMENOrdering Facility: [facility] Address: [address] [place] [address] Performed By: #### 2 4323-8, 70401-5, 2777-1 ####[facility] LABCLIA [id number] [address] [place] Creatinine [Mass/Vol] 1.79 mg/dL High 0.73-1.22 [facility] Comment on above: Order Comment: Speci men Type: BLOOD SPECIMENOrdering Facility: [facility] Address: [address] [place] [address] Performed By: #### 2 4323-8, 39043-9, 2777-1 ####[facility] LABCLIA [id number] [place] [address] [place] [facility] Creatinine and Glomerular filtration rate.predicted panel (S/P/Bld) 44 mL/min/1.73m??? Low >=60 [facility] Comment on above: Order Comment: Speci men Type: BLOOD SPECIMENOrdering Facility: [facility] Address: [address] [place] [address] Result Comment: Dayan mated Glomerular Filtration Rate (eGFR) is calculated using the 2020 CKD-EPI creatinine equation. This equation utilizes serum creatinine, sex, and age as parameters. The creatinine assay has traceable calibration to isotope dilution-mass spectrometry. Refer to KDIGO guidelines for clinical interpretation. In patients with unstable renal function, e.g. those with acute kidney injury, the eGFR may not accurately reflect actual GFR. Performed By: #### 2 4322-, , 2776-10 ####[facility] LABCLIA [id number] [address] [address] [place] Glucose [Mass/Vol] 127 mg/dL High 74-99 [facility] Comment on above: Order Comment: Speci men Type: BLOOD SPECIMENOrdering Facility: [facility] Address: [address] [place] [address] Result Comment: The [place] Diabetes Association (ADA) provides guidance for cutoff values for fasting glucose and random glucose. The ADA defines fasting as no caloric intake for at least 8 hours. Fasting plasma glucose results between 100 to 125 mg/dL indicate increased risk for diabetes (prediabetes).Fasting plasma glucose results greater than or equal to 126 mg/dL meet the criteria for diagnosis of diabetes. In the absence of unequivocal hyperglycemia, results should be confirmed by repeat testing. In a patient with classic symptoms of hyperglycemia or hyperglycemic crisis, random plasma glucose results greater than or equal to 200 mg/dL meet the criteria for diagnosis of diabetes.Reference: Standards of Medical Care in Diabetes 2016, [place] [employer] Association. Diabetes Care. 2016.39(Suppl 1). Performed By: #### 2 4322-8, , 2776-10 ####[facility]CLIA [id number] [address] [address] [place] Potassium [Moles/Vol] 3.5 mmol/L Low 3.7-5.1 [facility] Comment on above: Order Comment: Speci men Type: BLOOD SPECIMENOrdering Facility: [facility] Address: [address] [place] [address] Performed By: #### 2 432-8, , 2776-10 ####[facility]CLIA [id number] [address] [address] [place] Protein [Mass/Vol] 6.4 g/dL Normal 6.3-8.0 [facility] Comment on above: Order Comment: Speci men Type: BLOOD SPECIMENOrdering Facility: [facility] Address: [address] [facility] [place] [id number] Performed By: #### 2 4323-8, , 2776-10 ####[facility] LABCLIA [id number] [place] [address] [place] Sodium [Moles/Vol] 143 mmol/L Normal 136-144 [facility] Comment on above: Order Comment: Speci men Type: BLOOD SPECIMENOrdering Facility: [facility] Address: [place] [place] [address] Performed By: #### 2 4323-8, , 2776-10 ####[facility] LABCLIA [id number] [place] [address] [place] Urea nitrogen [Mass/Vol] 38 mg/dL High 9-24 [facility] Comment on above: Order Comment: Speci men Type: BLOOD SPECIMENOrdering Facility: [facility] Address: [address] [place] [address] Performed By: #### 2 4323-8, , 2776-10 ####[facility] LABIA [id number] [place] [address] [place] Magnesium SerPl-mCncon 07-02 Magnesium [Mass/Vol] 2.1 mg/dL Normal 1.7-2.3 [facility] Comment on above: Order Comment: Speci men Type: BLOOD SPECIMENOrdering Facility: [facility] Address: [place] [place] [address] Performed By: #### 2 4323-8, , 2776-10 ####[facility]CLIA [id number] [place] [address] [place] PTT, ANTICOAGULANT THERAPYon 07-02-2023 aPTT Coag (PPP) [Time] 59.3 s High 23.0-32.4 [facility] Comment on above: Order Comment: Speci men Type: BLOOD SPECIMENOrdering Facility: [facility] Address: [address] [place] [address] Performed By: #### P TTAC ####[facility]CLIA [id number] [place] [address] [place] [facility] aPTT Coag (PPP) [Time] 30.2 s Normal 23.0-32.4 [facility] Comment on above: Order Comment: Speci men Type: BLOOD SPECIMENOrdering Facility: [facility] Address: [address] [place] [address] Performed By: #### P TTAC ####[facility] LABIA [id number] [address] [place] [facility] aPTT Coag (PPP) [Time] 39.2 s High 23.0-32.4 [facility] Comment on above: Order Comment: Speci men Type: BLOOD SPECIMENOrdering Facility: [facility] Address: [address] [place] [address] Performed By: #### P TTAC ####[facility] LABIA [id number] [place] [address] [place] Phosphate SerPl-mCncon 07-02 Phosphate [Mass/Vol] 2.0 mg/dL Low 2.7-4.8 [facility] Comment on above: Order Comment: Speci men Type: BLOOD SPECIMENOrdering Facility: [facility] Address: [address] [place] [address] Performed By: #### 2 4323-8, 24717-9, 2777-1 ####[facility] LABCLIA [id number] [place] [address] [place] Tacrolimus Bld-mCncon 2022 Tacrolimus (Bld) [Mass/Vol] 4.1 ng/mL Low 5.0-20.0 [facility] Comment on above: Order Comment: Speci tania Type: BLOOD SPECIMENOrdering Facility: [facility] Address: [address] [place] [address] Result Comment: Nayely vidualized target levels for a given patient will depend on many factors (including the type of organ transplant, time since transplantation, concurrent medications, and other clinical factors), and should be assessed by those health care providers experienced in the management of immunosuppression. Reference ranges and high/low indicator flags are provided as general guidelines only. The treating physician must determine appropriate target levels/dosing based on the specific clinical situation. Test performed by chemiluminescent immunoassay using Cumulux Alinity i. Performed By: #### 1 1253-2 ####[facility]CLIA [id number] [place] [address] [place] CBC W Auto Differential pane l (Bld)on 07-01-2023 Basophils (Bld) [#/Vol] 0.00 10*3/uL Normal <0.11 [facility] Comment on above: Order Comment: Speci tania Type: BLOOD SPECIMENOrdering Facility: [facility] Address: [address] [place] [address] Performed By: #### 5 7021-8 ####[facility] LABCLIA [id number] [place] [address] [place] Basophils/100 WBC (Bld) 0.0 % Normal [facility] Comment on above: Order Comment: Speci men Type: BLOOD SPECIMENOrdering Facility: [facility] Address: [address] [place] [address] Performed By: #### 5 7021-8 ####[facility] LABCLIA [id number] [place] [address] [place] Differential cell count method Nom (Bld) Manual Normal [facility] Comment on above: Order Comment: Speci men Type: BLOOD SPECIMENOrdering Facility: [facility] Address: [address] Performed By: #### 5 7021-8 ####[facility] LABCLIA [id number] [place] [address] [place] Eosinophils (Bld) [#/Vol] 0.00 10*3/uL Normal <0.46 [facility] Comment on above: Order Comment: Speci men Type: BLOOD SPECIMENOrdering Facility: [facility] Address: [address] Performed By: #### 5 7021-8 ####[facility] LABCLIA [id number] [address] [place] Eosinophils/100 WBC (Bld) 0.0 % Normal [facility] Comment on above: Order Comment: Speci men Type: BLOOD SPECIMENOrdering Facility: [facility] Address: [address] Performed By: #### 5 7021-8 ####[facility] LABIA [id number] [address] [place] Erythrocyte distribution width (RBC) [Ratio] 13.1 % Normal 11.5-15.0 [facility] Comment on above: Order Comment: Speci men Type: BLOOD SPECIMENOrdering Facility: [facility] Address: [address] Performed By: #### 5 7021-8 ####[facility] LABCLIA [id number] [address] [place] Hematocrit (Bld) [Volume fraction] 34.1 % Low 39.0-51.0 [facility] Comment on above: Order Comment: Speci men Type: BLOOD SPECIMENOrdering Facility: [facility] Address: [address] Performed By: #### 5 7021-8 ####[facility] LABCLIA [id number] [address] [place] [address] [place] Hemoglobin (Bld) [Mass/Vol] 11.1 g/dL Low 13.0-17.0 [facility] Comment on above: Order Comment: Speci men Type: BLOOD SPECIMENOrdering Facility: [facility] Address: [address] [place] [address] Performed By: #### 5 7021-8 ####[facility] LABCLIA [id number] [place] [address] [place] Lymphocytes (Bld) [#/Vol] 2.72 10*3/uL Normal 1.00-4.00 [facility] Comment on above: Order Comment: Speci men Type: BLOOD SPECIMENOrdering Facility: [facility] Address: [address] [place] [address] Performed By: #### 5 7021-8 ####[facility] LABCLIA [id number] [place] [address] [place] Lymphocytes/100 WBC (Bld) 28.9 % Normal [facility] Comment on above: Order Comment: Speci men Type: BLOOD SPECIMENOrdering Facility: [facility] Address: [address] [place], [place] [address] Performed By: #### 5 7021-8 ####[facility] LABCLIA [id number] [place] [address] [place] MCH (RBC) [Entitic mass] 30.4 pg Normal 26.0-34.0 [facility] Comment on above: Order Comment: Speci men Type: BLOOD SPECIMENOrdering Facility: [facility] Address: [address] [place], [place] [address] Performed By: #### 5 7021-8 ####[facility] LABCLIA [id number] [place] [address] [place] MCHC (RBC) [Mass/Vol] 32.6 g/dL Normal 30.5-36.0 [facility] Comment on above: Order Comment: Speci men Type: BLOOD SPECIMENOrdering Facility: [facility] Address: [address] [place] [address] Performed By: #### 5 7021-8 ####[facility] LABCLIA [id number] [place] [address] [place] MCV (RBC) [Entitic vol] 93.4 fL Normal 80.0-100.0 [facility] Comment on above: Order Comment: Speci men Type: BLOOD SPECIMENOrdering Facility: [facility] Address: [address] Performed By: #### 5 7021-8 ####[facility] LABCLIA [id number] [address] [place] Metamyelocytes/100 WBC (Bld) 0.9 % Normal [facility] Comment on above: Order Comment: Speci men Type: BLOOD SPECIMENOrdering Facility: [facility] Address: [address] Performed By: #### 5 7021-8 ####[facility] LABCLIA [id number] [place] [address] [place] Monocytes (Bld) [#/Vol] 0.57 10*3/uL Normal <0.87 [facility] Comment on above: Order Comment: Speci men Type: BLOOD SPECIMENOrdering Facility: [facility] Address: [address] Performed By: #### 5 7021-8 ####[facility] LABCLIA [id number] [address] [place] Monocytes/100 WBC (Bld) 6.1 % Normal [facility] Comment on above: Order Comment: Speci men Type: BLOOD SPECIMENOrdering Facility: [facility] Address: [address] Performed By: #### 5 7021-8 ####[facility] LABCLIA [id number] [place] [address] [place] MYELO% 0.9 % Normal [facility] Comment on above: Order Comment: Speci men Type: BLOOD SPECIMENOrdering Facility: [facility] Address: [address] [place] [address] Performed By: #### 5 7021-8 ####[facility] LABCLIA [id number] [place] [address] [place] Neutrophils (Bld) [#/Vol] 5.95 10*3/uL Normal 1.45-7.50 [facility] Comment on above: Order Comment: Speci men Type: BLOOD SPECIMENOrdering Facility: [facility] Address: [address] [place] [address] Performed By: #### 5 7021-8 ####[facility] LABCLIA [id number] [place] [address] [place] Neutrophils/100 WBC (Bld) 63.2 % Normal [facility] Comment on above: Order Comment: Speci men Type: BLOOD SPECIMENOrdering Facility: [facility] Address: [address] [place], [place] [address] Performed By: #### 5 7021-8 ####[facility] LABCLIA [id number] [place] [address] [place] Nucleated RBC (Bld) [#/Vol] 10*3/uL Normal <0.01 [facility] Comment on above: Order Comment: Speci men Type: BLOOD SPECIMENOrdering Facility: [facility] Address: [address] [place], [place] [address] Performed By: #### 5 7021-8 ####[facility] LABCLIA [id number] [place] [address] [place] Nucleated RBC/100 WBC (Bld) [Ratio] 0.0 /100 WBC Normal [facility] Comment on above: Order Comment: Speci men Type: BLOOD SPECIMENOrdering Facility: [facility] Address: [address] Performed By: #### 5 7021-8 ####[facility] LABCLIA [id number] [place] [address] [place] Ovalocytes LM Ql (Bld) Few Normal [facility] Comment on above: Order Comment: Speci men Type: BLOOD SPECIMENOrdering Facility: [facility] Address: [address] Performed By: #### 5 7021-8 ####[facility] LABCLIA [id number] [place] [address] [place] Platelet mean volume (Bld) [Entitic vol] 9.3 fL Normal 9.0-12.7 [facility] Comment on above: Order Comment: Speci men Type: BLOOD SPECIMENOrdering Facility: [facility] Address: [address] [place] [address] Performed By: #### 5 7021-8 ####[facility] LABCLIA [id number] [place] [address] [place] Platelets (Bld) [#/Vol] 377 10*3/uL Normal 150-400 [facility] Comment on above: Order Comment: Speci men Type: BLOOD SPECIMENOrdering Facility: [facility] Address: [address] [place] [address] Performed By: #### 5 7021-8 ####[facility] LABCLIA [id number] [place] [address] [place] Platelets Estimate (Bld) [#/Vol] Adequate Normal [facility] Comment on above: Order Comment: Speci men Type: BLOOD SPECIMENOrdering Facility: [facility] Address: [address] [place] [address] Performed By: #### 5 7021-8 ####[facility] LABCLIA [id number] [place] [address] [place] Polychromasia LM Ql (Bld) Slight Normal [facility] Comment on above: Order Comment: Speci men Type: BLOOD SPECIMENOrdering Facility: [facility] Address: [address] [place] [address] Performed By: #### 5 7021-8 ####[facility] LABCLIA [id number] [place] [address] [place] RBC (Bld) [#/Vol] 3.65 10*6/uL Low 4.20-6.00 [facility] Comment on above: Order Comment: Speci men Type: BLOOD SPECIMENOrdering Facility: [facility] Address: [address] [place] [address] Performed By: #### 5 7021-8 ####[facility] LABCLIA [id number] [place] [address] [place] RED CELL MORPH Reviewed: see result s of individual morphologies Normal [facility] Comment on above: Order Comment: Speci men Type: BLOOD SPECIMENOrdering Facility: [facility] Address: [address] [place], [place] [address] Performed By: #### 5 7021-8 ####[facility] LABCLIA [id number] [place] [address] [place] WBC (Bld) [#/Vol] 9.42 10*3/uL Normal 3.70-11.00 [facility] Comment on above: Order Comment: Speci men Type: BLOOD SPECIMENOrdering Facility: [facility] Address: [address] [place], [place] [address] Performed By: #### 5 7021-8 ####[facility] LABCLIA [id number] [place] [address] [place] WBC Left Shift Ql (Bld) Present Normal [facility] Comment on above: Order Comment: Speci men Type: BLOOD SPECIMENOrdering Facility: [facility] Address: [address] [place] [address] Performed By: #### 5 7021-8 ####[facility] LABCLIA [id number] [place] [address] [place] Comprehensive metabolic 2000 panelon 07-01-2023 Albumin [Mass/Vol] 3.4 g/dL Low 3.9-4.9 [facility] Comment on above: Order Comment: Speci men Type: BLOOD SPECIMENOrdering Facility: [facility] Address: [address] [place] [address] Performed By: #### 1 9123-9, 2777-1, 19597-6 ####[facility] LABIA [id number] [place] [address] [place] ALP [Catalytic activity/Vol] 88 U/L Normal 38-113 [facility] Comment on above: Order Comment: Speci men Type: BLOOD SPECIMENOrdering Facility: [facility] Address: [address] [place], [place] [address] Performed By: #### 1 9123-9, 2777-1, 06030-3 ####[facility] LABIA [id number] [address] [place] ALT [Catalytic activity/Vol] 23 U/L Normal 10-54 [facility] Comment on above: Order Comment: Speci men Type: BLOOD SPECIMENOrdering Facility: [facility] Address: [address] Performed By: #### 1 9123-9, 2777-1, 31714-1 ####[facility] LABIA [id number] [place] [address] [place] Anion gap [Moles/Vol] 10 mmol/L Normal 9-18 [facility] Comment on above: Order Comment: Speci men Type: BLOOD SPECIMENOrdering Facility: [facility] Address: [address] Performed By: #### 1 9123-9, 27704-09, 67548-5 ####[facility] LABCLIA [id number] [place] [address] [place] AST [Catalytic activity/Vol] 23 U/L Normal 14-40 [facility] Comment on above: Order Comment: Speci men Type: BLOOD SPECIMENOrdering Facility: [facility] Address: [address] [place] [address] Performed By: #### 1 9123-9, 27704-09, 49453-7 ####[facility] LABCLIA [id number] [place] [address] [place] Bilirubin [Mass/Vol] 0.4 mg/dL Normal 0.2-1.3 [facility] Comment on above: Order Comment: Speci men Type: BLOOD SPECIMENOrdering Facility: [facility] Address: [address] [place] [address] Performed By: #### 1 9123-9, 27704-09, 23705-7 ####[facility] LABIA [id number] [place] [address] [place] Calcium [Mass/Vol] 9.6 mg/dL Normal 8.5-10.2 [facility] Comment on above: Order Comment: Speci men Type: BLOOD SPECIMENOrdering Facility: [facility] Address: [address] [place] Performed By: #### 1 9123-9, 27704-09, 09753-0 ####[facility] LABIA [id number] [place] [id number] [place] Chloride [Moles/Vol] 104 mmol/L Normal 97-105 [facility] Comment on above: Order Comment: Speci men Type: BLOOD SPECIMENOrdering Facility: [facility] Address: [address] [place] [address] Performed By: #### 1 9123-9, 2776-10, ####[facility] LABCLIA [id number] [place] [address] [place] CO2 [Moles/Vol] 29 mmol/L Normal 22-30 [facility] Comment on above: Order Comment: Speci men Type: BLOOD SPECIMENOrdering Facility: [facility] Address: [address] [place] [address] Performed By: #### 1 9123-9, 2776-10, ####[facility] LABCLIA [id number] [place] [address] [place] Creatinine [Mass/Vol] 2.12 mg/dL High 0.73-1.22 [facility] Comment on above: Order Comment: Speci men Type: BLOOD SPECIMENOrdering Facility: [facility] Address: [address] [place] [address] Performed By: #### 1 91239, 2776-10, ####[facility] LABIA [id number] [place] [address] [place] Creatinine and Glomerular filtration rate.predicted panel (S/P/Bld) 36 mL/min/1.73m??? Low >=60 [facility] Comment on above: Order Comment: Speci men Type: BLOOD SPECIMENOrdering Facility: [facility] Address: [address] [place] [address] Result Comment: Dayan mated Glomerular Filtration Rate (eGFR) is calculated using the 2020 CKD-EPI creatinine equation. This equation utilizes serum creatinine, sex, and age as parameters. The creatinine assay has traceable calibration to isotope dilution-mass spectrometry. Refer to KDIGO guidelines for clinical interpretation. In patients with unstable renal function, e.g. those with acute kidney injury, the eGFR may not accurately reflect actual GFR. Performed By: #### 1 9123-9, 27704-09, 27050-1 ####[facility] LABCLIA [id number] [place] [id number] [place] Glucose [Mass/Vol] 130 mg/dL High 74-99 [facility] Comment on above: Order Comment: Speci men Type: BLOOD SPECIMENOrdering Facility: [facility] Address: [address] [place] [address] Result Comment: The [place] Diabetes Association (ADA) provides guidance for cutoff values for fasting glucose and random glucose. The ADA defines fasting as no caloric intake for at least 8 hours. Fasting plasma glucose results between 100 to 125 mg/dL indicate increased risk for diabetes (prediabetes).Fasting plasma glucose results greater than or equal to 126 mg/dL meet the criteria for diagnosis of diabetes. In the absence of unequivocal hyperglycemia, results should be confirmed by repeat testing. In a patient with classic symptoms of hyperglycemia or hyperglycemic crisis, random plasma glucose results greater than or equal to 200 mg/dL meet the criteria for diagnosis of diabetes.Reference: Standards of Medical Care in Diabetes 2016, [place] [employer]. Diabetes Care. 2016.39(Suppl 1). Performed By: #### 1 9123-9, 2777-, 45040-4 ####[facility] LABCLIA [id number] [place] [address] [place] Potassium [Moles/Vol] 3.5 mmol/L Low 3.7-5.1 [facility] Comment on above: Order Comment: Speci men Type: BLOOD SPECIMENOrdering Facility: [facility] Address: [address] [place], [place] [address] Performed By: #### 1 9123-9, 2777, 27009-3 ####[facility] LABCLIA [id number] [place] [address] [place] Protein [Mass/Vol] 6.3 g/dL Normal 6.3-8.0 [facility] Comment on above: Order Comment: Speci men Type: BLOOD SPECIMENOrdering Facility: [facility] Address: [address] [place] [address] Performed By: #### 1 9123-9, 2777-, 15440-9 ####[facility] LABCLIA [id number] [place] [address] [place] Sodium [Moles/Vol] 143 mmol/L Normal 136-144 [facility] Comment on above: Order Comment: Speci men Type: BLOOD SPECIMENOrdering Facility: [facility] Address: [address] [place] [address] Performed By: #### 1 9123-9, 2777-1, 13197-4 ####[facility] LABCLIA [id number] [place] [address] [place] Urea nitrogen [Mass/Vol] 44 mg/dL High 9-24 [facility] Comment on above: Order Comment: Speci men Type: BLOOD SPECIMENOrdering Facility: [facility] Address: [address] [place] [address] Performed By: #### 1 9123-9, 2777-, 79715-7 ####[facility] LABIA [id number] [place] [address] [place] Magnesium SerPl-mCncon 07-01 Magnesium [Mass/Vol] 2.1 mg/dL Normal 1.7-2.3 [facility] Comment on above: Order Comment: Speci men Type: BLOOD SPECIMENOrdering Facility: [facility] Address: [address] [place] [address] Performed By: #### 1 9123-9, 2777-, 56878-0 ####[facility] LABIA [id number] [place] [id number] [place] PTT, ANTICOAGULANT THERAPYon 07-01-2023 aPTT Coag (PPP) [Time] 60.6 s High 23.0-32.4 [facility] Comment on above: Order Comment: Speci men Type: BLOOD SPECIMENOrdering Facility: [facility] Address: [address] [place] [address] Performed By: #### P TTAC ####[facility] LABCLIA [id number] [place] [address] [place] aPTT Coag (PPP) [Time] 34.5 s High 23.0-32.4 [facility] Comment on above: Order Comment: Speci men Type: BLOOD SPECIMENOrdering Facility: [facility] Address: [address] [place] [address] Performed By: #### P TTAC ####[facility] LABIA [id number] [place] [address] [place] [facility] aPTT Coag (PPP) [Time] 51.2 s High 23.0-32.4 [facility] Comment on above: Order Comment: Speci men Type: BLOOD SPECIMENOrdering Facility: [facility] Address: [address] [place] [address] Performed By: #### P TTAC ####[facility] [id number] [place] [address] [place] Phosphate SerPl-ncon 07-01 Phosphate [Mass/Vol] 1.9 mg/dL Low 2.7-4.8 [facility] Comment on above: Order Comment: Speci men Type: BLOOD SPECIMENOrdering Facility: [facility] Address: [address] [place] [address] Performed By: #### 1 9123-9, 2777-1, 74886-2 ####[facility] LABIA [id number] [place] [address] [place] THERAPY NTon 07-01-2023 THERAPY NT Normal [facility] THERAPY NT Normal [facility] Tacrolimus Bld-mCncon 2022 Tacrolimus (Bld) [Mass/Vol] 4.3 ng/mL Low 5.0-20.0 [facility] Comment on above: Order Comment: Speci men Type: BLOOD SPECIMENOrdering Facility: [facility] Address: [address] [place] [address] Result Comment: Nayely vidualized target levels for a given patient will depend on many factors (including the type of organ transplant, time since transplantation, concurrent medications, and other clinical factors), and should be assessed by those health care providers experienced in the management of immunosuppression. Reference ranges and high/low indicator flags are provided as general guidelines only. The treating physician must determine appropriate target levels/dosing based on the specific clinical situation. Test performed by chemiluminescent immunoassay using [employer]ux Alinity i. Performed By: #### 1 1253-2 ####[facility] LABCLIA [id number] [place] [address] [place] CASE MANAGEMon 06-30-2023 CASE MANAGEM Normal [facility] CBC W Auto Differential pane l (Bld)on 06-30-2023 Basophils (Bld) [#/Vol] 0.00 10*3/uL Normal <0.11 [facility] Comment on above: Order Comment: Speci men Type: BLOOD SPECIMENOrdering Facility: [facility] Address: [address] [place] [place] [address] Performed By: #### 5 7021-8 ####[facility] LABIA [id number] [address] [place] Basophils/100 WBC (Bld) 0.0 % Normal [facility] Comment on above: Order Comment: Speci men Type: BLOOD SPECIMENOrdering Facility: [facility] Address: [address] Performed By: #### 5 7021-8 ####[facility] LABCLIA [id number] [address] [place] Differential cell count method Nom (Bld) Manual Normal [facility] Comment on above: Order Comment: Speci men Type: BLOOD SPECIMENOrdering Facility: [facility] Address: [address] Performed By: #### 5 7021-8 ####[facility] LABCLIA [id number] [place] Eosinophils (Bld) [#/Vol] 0.00 10*3/uL Normal <0.46 [facility] Comment on above: Order Comment: Speci men Type: BLOOD SPECIMENOrdering Facility: [facility] Address: [address] [place] [address] Performed By: #### 5 7021-8 ####[facility] LABCLIA [id number] [place] [address] [place] Eosinophils/100 WBC (Bld) 0.0 % Normal [facility] Comment on above: Order Comment: Speci men Type: BLOOD SPECIMENOrdering Facility: [facility] Address: [address] [place] [address] Performed By: #### 5 7021-8 ####[facility] LABCLIA [id number] [address] [place] Erythrocyte distribution width (RBC) [Ratio] 13.0 % Normal 11.5-15.0 [facility] Comment on above: Order Comment: Speci men Type: BLOOD SPECIMENOrdering Facility: [facility] Address: [address] [place], [place] [address] Performed By: #### 5 7021-8 ####[facility] LABCLIA [id number] [place] [address] [place] Hematocrit (Bld) [Volume fraction] 31.9 % Low 39.0-51.0 [facility] Comment on above: Order Comment: Speci men Type: BLOOD SPECIMENOrdering Facility: [facility] Address: [address] [place], [place] [address] Performed By: #### 5 7021-8 ####[facility] LABCLIA [id number] [place] [address] [place] Hemoglobin (Bld) [Mass/Vol] 10.5 g/dL Low 13.0-17.0 [facility] Comment on above: Order Comment: Speci men Type: BLOOD SPECIMENOrdering Facility: [facility] Address: [address] [place] [address] Performed By: #### 5 7021-8 ####[facility] LABCLIA [id number] [place] [address] [place] Lymphocytes (Bld) [#/Vol] 2.40 10*3/uL Normal 1.00-4.00 [facility] Comment on above: Order Comment: Speci men Type: BLOOD SPECIMENOrdering Facility: [facility] Address: [address] [place] [address] Performed By: #### 5 7021-8 ####[facility] LABCLIA [id number] [place] [address] [place] Lymphocytes/100 WBC (Bld) 24.3 % Normal [facility] Comment on above: Order Comment: Speci men Type: BLOOD SPECIMENOrdering Facility: [facility] Address: [address] Performed By: #### 5 7021-8 ####[facility] LABCLIA [id number] [place] [address] [place] MCH (RBC) [Entitic mass] 30.3 pg Normal 26.0-34.0 [facility] Comment on above: Order Comment: Speci men Type: BLOOD SPECIMENOrdering Facility: [facility] Address: [address] Performed By: #### 5 7021-8 ####[facility] LABCLIA [id number] [place] [address] [place] MCHC (RBC) [Mass/Vol] 32.9 g/dL Normal 30.5-36.0 [facility] Comment on above: Order Comment: Speci men Type: BLOOD SPECIMENOrdering Facility: [facility] Address: [address] Performed By: #### 5 7021-8 ####[facility] LABCLIA [id number] [place] [address] [place] MCV (RBC) [Entitic vol] 91.9 fL Normal 80.0-100.0 [facility] Comment on above: Order Comment: Speci men Type: BLOOD SPECIMENOrdering Facility: [facility] Address: [address] [place] [address] Performed By: #### 5 7021-8 ####[facility] LABIA [id number] [place] [address] [place] Monocytes (Bld) [#/Vol] 0.86 10*3/uL Normal <0.87 [facility] Comment on above: Order Comment: Speci men Type: BLOOD SPECIMENOrdering Facility: [facility] Address: [address] [place] [address] Performed By: #### 5 7021-8 ####[facility] LABIA [id number] [place] [address] [place] Monocytes/100 WBC (Bld) 8.7 % Normal [facility] Comment on above: Order Comment: Speci men Type: BLOOD SPECIMENOrdering Facility: [facility] Address: [address] [place], [place] [address] Performed By: #### 5 7021-8 ####[facility] LABIA [id number] [place] [address] [place] Neutrophils (Bld) [#/Vol] 6.61 10*3/uL Normal 1.45-7.50 [facility] Comment on above: Order Comment: Speci men Type: BLOOD SPECIMENOrdering Facility: [facility] Address: [address] [place], [place] [address] Performed By: #### 5 7021-8 ####[facility] LABIA [id number] [place] [address] [place] Neutrophils/100 WBC (Bld) 67.0 % Normal [facility] Comment on above: Order Comment: Speci men Type: BLOOD SPECIMENOrdering Facility: [facility] Address: [address] Performed By: #### 5 7021-8 ####[facility] LABCLIA [id number] [place] [address] [place] Nucleated RBC (Bld) [#/Vol] 10*3/uL Normal <0.01 [facility] Comment on above: Order Comment: Speci men Type: BLOOD SPECIMENOrdering Facility: [facility] Address: [address] Performed By: #### 5 7021-8 ####[facility] LABIA [id number] [place] [address] [place] Nucleated RBC/100 WBC (Bld) [Ratio] 0.0 /100 WBC Normal [facility] Comment on above: Order Comment: Speci men Type: BLOOD SPECIMENOrdering Facility: [facility] Address: [address] [place], [place] [address] Performed By: #### 5 7021-8 ####[facility] LABIA [id number] [place] [address] [place] Ovalocytes LM Ql (Bld) Few Normal [facility] Comment on above: Order Comment: Speci men Type: BLOOD SPECIMENOrdering Facility: [facility] Address: [address] Performed By: #### 5 7021-8 ####[facility] LABIA [id number] [place] [address] [place] Platelet mean volume (Bld) [Entitic vol] 9.7 fL Normal 9.0-12.7 [facility] Comment on above: Order Comment: Speci men Type: BLOOD SPECIMENOrdering Facility: [facility] Address: [address] Performed By: #### 5 7021-8 ####[facility] LABCLIA [id number] [place] [address] [place] Platelets (Bld) [#/Vol] 283 10*3/uL Normal 150-400 [facility] Comment on above: Order Comment: Speci men Type: BLOOD SPECIMENOrdering Facility: [facility] Address: [address] [place] [address] Performed By: #### 5 7021-8 ####[facility] LABCLIA [id number] [place] [address] [place] Platelets Estimate (Bld) [#/Vol] Adequate Normal [facility] Comment on above: Order Comment: Speci men Type: BLOOD SPECIMENOrdering Facility: [facility] Address: [address] [place] [address] Performed By: #### 5 7021-8 ####[facility] LABCLIA [id number] [place] [address] [place] Polychromasia LM Ql (Bld) Slight Normal [facility] Comment on above: Order Comment: Speci men Type: BLOOD SPECIMENOrdering Facility: [facility] Address: [address] [place], [place] [address] Performed By: #### 5 7021-8 ####[facility] LABCLIA [id number] [place] [address] [place] RBC (Bld) [#/Vol] 3.47 10*6/uL Low 4.20-6.00 [facility] Comment on above: Order Comment: Speci men Type: BLOOD SPECIMENOrdering Facility: [facility] Address: [address] [place] [address] Performed By: #### 5 7021-8 ####[facility] LABCLIA [id number] [place] [address] [place] RED CELL MORPH Reviewed: see result s of individual morphologies Normal [facility] Comment on above: Order Comment: Speci men Type: BLOOD SPECIMENOrdering Facility: [facility] Address: [address] [place], [place] [address] Performed By: #### 5 7021-8 ####[facility] LABCLIA [id number] [place] [address] [place] WBC (Bld) [#/Vol] 9.86 10*3/uL Normal 3.70-11.00 [facility] Comment on above: Order Comment: Speci men Type: BLOOD SPECIMENOrdering Facility: [facility] Address: [address] [place], [place] [address] Performed By: #### 5 7021-8 ####[facility] LABCLIA [id number] [place] [address] [place] Comprehensive metabolic 2000 panelon 06-30-2023 Albumin [Mass/Vol] 3.3 g/dL Low 3.9-4.9 [facility] Comment on above: Order Comment: Speci men Type: BLOOD SPECIMENOrdering Facility: [facility] Address: [address] [place], [place] [address] Performed By: #### 1 9123-9, 2777-, 73097-4 ####[facility] LABCLIA [id number] [place] [address] [place] ALP [Catalytic activity/Vol] 82 U/L Normal 38-113 [facility] Comment on above: Order Comment: Speci men Type: BLOOD SPECIMENOrdering Facility: [facility] Address: [address] [place], [place] [address] Performed By: #### 1 9123-9, 2777-1, 85981-8 ####[facility] LABCLIA [id number] [address] [place] ALT [Catalytic activity/Vol] 22 U/L Normal 10-54 [facility] Comment on above: Order Comment: Speci men Type: BLOOD SPECIMENOrdering Facility: [facility] Address: [address] Performed By: #### 1 9123-9, 2777, 75409-2 ####[facility] LABCLIA [id number] [place] [address] [place] Anion gap [Moles/Vol] 12 mmol/L Normal 9-18 [facility] Comment on above: Order Comment: Speci men Type: BLOOD SPECIMENOrdering Facility: [facility] Address: [address] [place], [place] [address] Performed By: #### 1 9123-9, 2777, 63923-1 ####[facility] LABIA [id number] [place] [address] [place] AST [Catalytic activity/Vol] 19 U/L Normal 14-40 [facility] Comment on above: Order Comment: Speci men Type: BLOOD SPECIMENOrdering Facility: [facility] Address: [address] [place], [place] [address] Performed By: #### 1 9123-9, 27704-09, 65815-1 ####[facility] LABIA [id number] [place] [address] [place] Bilirubin [Mass/Vol] 0.5 mg/dL Normal 0.2-1.3 [facility] Comment on above: Order Comment: Speci men Type: BLOOD SPECIMENOrdering Facility: [facility] Address: [address] [place], [place] [address] Performed By: #### 1 9123-9, 27704-09, 55400-7 ####[facility] LABIA [id number] [place] [address] [place] Calcium [Mass/Vol] 9.5 mg/dL Normal 8.5-10.2 [facility] Comment on above: Order Comment: Speci men Type: BLOOD SPECIMENOrdering Facility: [facility] Address: [address] [place] [address] Performed By: #### 1 9123-9, 2777-1, 02580-2 ####[facility] LABIA [id number] [place] [address] [place] Chloride [Moles/Vol] 105 mmol/L Normal 97-105 [facility] Comment on above: Order Comment: Speci men Type: BLOOD SPECIMENOrdering Facility: [facility] Address: [address] [place] [address] Performed By: #### 1 9123-9, 2777-, 34812-6 ####[facility] LABIA [id number] [place] [address] [place] CO2 [Moles/Vol] 24 mmol/L Normal 22-30 [facility] Comment on above: Order Comment: Speci men Type: BLOOD SPECIMENOrdering Facility: [facility] Address: [address] [place] [address] Performed By: #### 1 9123-9, 2777-, 04148-9 ####[facility] LABIA [id number] [place] [address] [place] Creatinine [Mass/Vol] 2.46 mg/dL High 0.73-1.22 [facility] Comment on above: Order Comment: Speci men Type: BLOOD SPECIMENOrdering Facility: [facility] Address: [address] [place] [address] Performed By: #### 1 9123-9, 2777-, 87464-4 ####[facility] LABIA [id number] [place] [address] [place] Creatinine and Glomerular filtration rate.predicted panel (S/P/Bld) 30 mL/min/1.73m??? Low >=60 [facility] Comment on above: Order Comment: Speci men Type: BLOOD SPECIMENOrdering Facility: [facility] Address: [address] [place] [address] Result Comment: Dayan mated Glomerular Filtration Rate (eGFR) is calculated using the 2020 CKD-EPI creatinine equation. This equation utilizes serum creatinine, sex, and age as parameters. The creatinine assay has traceable calibration to isotope dilution-mass spectrometry. Refer to KDIGO guidelines for clinical interpretation. In patients with unstable renal function, e.g. those with acute kidney injury, the eGFR may not accurately reflect actual GFR. Performed By: #### 1 9123-9, 2777, ####[facility] LABIA [id number] [place] [id number] [place] Glucose [Mass/Vol] 114 mg/dL High 74-99 [facility] Comment on above: Order Comment: Iesha marin Type: BLOOD SPECIMENOrdering Facility: [facility] Address: [address] [id number] Result Comment: The [place] Diabetes Association (ADA) provides guidance for cutoff values for fasting glucose and random glucose. The ADA defines fasting as no caloric intake for at least 8 hours. Fasting plasma glucose results between 100 to 125 mg/dL indicate increased risk for diabetes (prediabetes).Fasting plasma glucose results greater than or equal to 126 mg/dL meet the criteria for diagnosis of diabetes. In the absence of unequivocal hyperglycemia, results should be confirmed by repeat testing. In a patient with classic symptoms of hyperglycemia or hyperglycemic crisis, random plasma glucose results greater than or equal to 200 mg/dL meet the criteria for diagnosis of diabetes.Reference: Standards of Medical Care in Diabetes 2016, [place] [employer] Association. Diabetes Care. 2016.39(Suppl 1). Performed By: #### 1 9123-9, 2777, 83725-8 ####[facility] LABIA [id number] [place] [id number] [place] Potassium [Moles/Vol] 3.9 mmol/L Normal 3.7-5.1 [facility] Comment on above: Order Comment: Iesha marin Type: BLOOD SPECIMENOrdering Facility: [facility] Address: [address] [id number] Performed By: #### 1 9123-9, 2777-1, 93984-8 ####[facility] LABCLIA [id number] [place] [address] [place] Protein [Mass/Vol] 6.1 g/dL Low 6.3-8.0 [facility] Comment on above: Order Comment: Speci men Type: BLOOD SPECIMENOrdering Facility: [facility] Address: [address] [place] [address] Performed By: #### 1 9123-9, 2777-, ####[facility] LABCLIA [id number] [place] [address] [place] Sodium [Moles/Vol] 141 mmol/L Normal 136-144 [facility] Comment on above: Order Comment: Speci men Type: BLOOD SPECIMENOrdering Facility: [facility] Address: [address] [place] [address] Performed By: #### 1 9123-9, 2777, ####[facility] LABIA [id number] [place] [address] [place] Urea nitrogen [Mass/Vol] 52 mg/dL High 9-24 [facility] Comment on above: Order Comment: Speci men Type: BLOOD SPECIMENOrdering Facility: [facility] Address: [address] [place] [address] Performed By: #### 1 9123-9, 2777, 72164-3 ####[facility] LABCLIA [id number] [place] [id number] [place] Magnesium SerPl-mCncon 06-30 Magnesium [Mass/Vol] 2.4 mg/dL High 1.7-2.3 [facility] Comment on above: Order Comment: Speci men Type: BLOOD SPECIMENOrdering Facility: [facility] Address: [address] [place] [address] Performed By: #### 1 9123-9, 2777-, 85513-8 ####[facility] LABCLIA [id number] [place] [address] [place] PTT, ANTICOAGULANT THERAPYon 06-30-2023 aPTT Coag (PPP) [Time] 40.2 s High 23.0-32.4 [facility] Comment on above: Order Comment: Speci men Type: BLOOD SPECIMENOrdering Facility: [facility] Address: [address] [place] [address] Performed By: #### P TTAC ####[facility] LABIA [id number] [address] [place] aPTT Coag (PPP) [Time] 60.4 s High 23.0-32.4 [facility] Comment on above: Order Comment: Speci men Type: BLOOD SPECIMENOrdering Facility: [facility] Address: [address] [place] [address] Performed By: #### P TTAC ####[facility] LABIA [id number] [address] [place] aPTT Coag (PPP) [Time] 90.8 s High 23.0-32.4 [facility] Comment on above: Order Comment: Speci men Type: BLOOD SPECIMENOrdering Facility: [facility] Address: [address] [place], [place] [address] Performed By: #### P TTAC ####[facility] LABIA [id number] [address] [place] aPTT Coag (PPP) [Time] 48.9 s High 23.0-32.4 [facility] Comment on above: Order Comment: Speci men Type: BLOOD SPECIMENOrdering Facility: [facility] Address: [address] [place], [place] [address] Performed By: #### P TTAC ####[facility] LABIA [id number] [place] [id number] [place] Phosphate SerPl-[facility] 06-30 Phosphate [Mass/Vol] 3.1 mg/dL Normal 2.7-4.8 [facility] Comment on above: Order Comment: Speci tania Type: BLOOD SPECIMENOrdering Facility: [facility] Address: [address] [address] Performed By: #### 1 9123-9, 2777-1, 44686-4 ####[facility] LABCLIA [id number] [address] [place] THERAPY NTon 06-30-2023 THERAPY NT Normal [facility] Tacrolimus Bld-ncon 2022 Tacrolimus (Bld) [Mass/Vol] 7.8 ng/mL Normal 5.0-20.0 [facility] Comment on above: Order Comment: Iesha marin Type: BLOOD SPECIMENOrdering Facility: [facility] Address: [address] [place] [address] Result Comment: Nayely vidualized target levels for a given patient will depend on many factors (including the type of organ transplant, time since transplantation, concurrent medications, and other clinical factors), and should be assessed by those health care providers experienced in the management of immunosuppression. Reference ranges and high/low indicator flags are provided as general guidelines only. The treating physician must determine appropriate target levels/dosing based on the specific clinical situation. Test performed by chemiluminescent immunoassay using [employer] Alinity i. Performed By: #### 1 1253-2 ####[facility] LABCLIA [id number] [place] [address] [place] ALLIED HEALTHon 06-29-2023 ALLIED HEALTH Normal [facility] Basic metabolic 2000 panelon 06-29-2023 Anion gap [Moles/Vol] 15 mmol/L Normal 9-18 [facility] Comment on above: Order Comment: Iesha marin Type: BLOOD SPECIMENOrdering Facility: [facility] Address: [address] [place] [address] Performed By: #### 2 4321-2, , 2776-10 ####[facility] LABCLIA [id number] [place] [address] [place] Calcium [Mass/Vol] 9.2 mg/dL Normal 8.5-10.2 [facility] Comment on above: Order Comment: Speci men Type: BLOOD SPECIMENOrdering Facility: [facility] Address: [address] [place], [place] [address] Performed By: #### 2 4321-2, , 2776-10 ####[facility] LABCLIA [id number] [place] [address] [place] Chloride [Moles/Vol] 105 mmol/L Normal 97-105 [facility] Comment on above: Order Comment: Speci men Type: BLOOD SPECIMENOrdering Facility: [facility] Address: [address] [place] [address] Performed By: #### 2 4320-2, , 2776-10 ####[facility] LABCLIA [id number] [place] [address] [place] CO2 [Moles/Vol] 20 mmol/L Low 22-30 [facility] Comment on above: Order Comment: Speci men Type: BLOOD SPECIMENOrdering Facility: [facility] Address: [address] [place], [place] [address] Performed By: #### 2 4320-2, , 2776-10 ####[facility] LABCLIA [id number] [place] [address] [place] Creatinine [Mass/Vol] 2.64 mg/dL High 0.73-1.22 [facility] Comment on above: Order Comment: Speci men Type: BLOOD SPECIMENOrdering Facility: [facility] Address: [address] [place], [place] [address] Performed By: #### 2 4321-2, , 2776-10 ####[facility] LABCLIA [id number] [address] [place] Creatinine and Glomerular filtration rate.predicted panel (S/P/Bld) 27 mL/min/1.73m??? Low >=60 [facility] Comment on above: Order Comment: Iesha marin Type: BLOOD SPECIMENOrdering Facility: [facility] Address: [address] [place] [address] Result Comment: Dayan mated Glomerular Filtration Rate (eGFR) is calculated using the 2020 CKD-EPI creatinine equation. This equation utilizes serum creatinine, sex, and age as parameters. The creatinine assay has traceable calibration to isotope dilution-mass spectrometry. Refer to KDIGO guidelines for clinical interpretation. In patients with unstable renal function, e.g. those with acute kidney injury, the eGFR may not accurately reflect actual GFR. Performed By: #### 2 4321-2, 86721-9, 2777- ####[facility] LABIA [id number] [address] STATES OF [facility] Glucose [Mass/Vol] 103 mg/dL High 74-99 [facility] Comment on above: Order Comment: Iesha marin Type: BLOOD SPECIMENOrdering Facility: [facility] Address: [address] [place] [address] Result Comment: The [place] Diabetes Association (ADA) provides guidance for cutoff values for fasting glucose and random glucose. The ADA defines fasting as no caloric intake for at least 8 hours. Fasting plasma glucose results between 100 to 125 mg/dL indicate increased risk for diabetes (prediabetes).Fasting plasma glucose results greater than or equal to 126 mg/dL meet the criteria for diagnosis of diabetes. In the absence of unequivocal hyperglycemia, results should be confirmed by repeat testing. In a patient with classic symptoms of hyperglycemia or hyperglycemic crisis, random plasma glucose results greater than or equal to 200 mg/dL meet the criteria for diagnosis of diabetes.Reference: Standards of Medical Care in Diabetes 2016, [place] [employer] Association. Diabetes Care. 2016.39(Suppl 1). Performed By: #### 2 4321-2, 93813-7, 2777-1 ####[facility] LABCLIA [id number] [place] [address] [place] Potassium [Moles/Vol] 4.3 mmol/L Normal 3.7-5.1 [facility] Comment on above: Order Comment: Speci men Type: BLOOD SPECIMENOrdering Facility: [facility] Address: [address] [place] [address] Performed By: #### 2 4321-2, , 2776-10 ####[facility] LABCLIA [id number] [place] [address] [place] Sodium [Moles/Vol] 140 mmol/L Normal 136-144 [facility] Comment on above: Order Comment: Speci men Type: BLOOD SPECIMENOrdering Facility: [facility] Address: [address] [place] [address] Performed By: #### 2 4321-2, , 2776-10 ####[facility] LABIA [id number] [place] [address] [place] Urea nitrogen [Mass/Vol] 51 mg/dL High 9-24 [facility] Comment on above: Order Comment: Speci men Type: BLOOD SPECIMENOrdering Facility: [facility] Address: [address] [place] [address] Performed By: #### 2 4321-2, , 2776-10 ####[facility] LABCLIA [id number] [place] [address] [place] CBC W Auto Differential pane l (Bld)on 06-29-2023 Basophils (Bld) [#/Vol] 0.00 10*3/uL Normal <0.11 [facility] Comment on above: Order Comment: Speci men Type: BLOOD SPECIMENOrdering Facility: [facility] Address: [address] [place] [address] Performed By: #### 5 7021-8 ####[facility] LABCLIA [id number] [address] [place] Basophils/100 WBC (Bld) 0.0 % Normal [facility] Comment on above: Order Comment: Speci men Type: BLOOD SPECIMENOrdering Facility: [facility] Address: [address] [place] [address] Performed By: #### 5 7021-8 ####[facility] LABCLIA [id number] [place] [address] [place] Differential cell count method Nom (Bld) Manual Normal [facility] Comment on above: Order Comment: Speci men Type: BLOOD SPECIMENOrdering Facility: [facility] Address: [address] [place] [address] Performed By: #### 5 7021-8 ####[facility] LABCLIA [id number] [place] [address] [place] Eosinophils (Bld) [#/Vol] 0.21 10*3/uL Normal <0.46 [facility] Comment on above: Order Comment: Speci men Type: BLOOD SPECIMENOrdering Facility: [facility] Address: [address] [place], [place] [address] Performed By: #### 5 7021-8 ####[facility] LABCLIA [id number] [address] [place] Eosinophils/100 WBC (Bld) 2.6 % Normal [facility] Comment on above: Order Comment: Speci men Type: BLOOD SPECIMENOrdering Facility: [facility] Address: [address] [place], [place] [address] Performed By: #### 5 7021-8 ####[facility] LABCLIA [id number] [place] [address] [place] Erythrocyte distribution width (RBC) [Ratio] 13.2 % Normal 11.5-15.0 [facility] Comment on above: Order Comment: Speci men Type: BLOOD SPECIMENOrdering Facility: [facility] Address: [address] Performed By: #### 5 7021-8 ####[facility] LABCLIA [id number] [place] [address] [place] Hematocrit (Bld) [Volume fraction] 31.4 % Low 39.0-51.0 [facility] Comment on above: Order Comment: Speci men Type: BLOOD SPECIMENOrdering Facility: [facility] Address: [address] Performed By: #### 5 7021-8 ####[facility] LABCLIA [id number] [place] [address] [place] Hemoglobin (Bld) [Mass/Vol] 10.4 g/dL Low 13.0-17.0 [facility] Comment on above: Order Comment: Speci men Type: BLOOD SPECIMENOrdering Facility: [facility] Address: [address] [place], [place] [address] Performed By: #### 5 7021-8 ####[facility] LABIA [id number] [place] [address] [place] Lymphocytes (Bld) [#/Vol] 1.33 10*3/uL Normal 1.00-4.00 [facility] Comment on above: Order Comment: Speci men Type: BLOOD SPECIMENOrdering Facility: [facility] Address: [address] [place], [place] [address] Performed By: #### 5 7021-8 ####[facility] LABCLIA [id number] [place] [address] [place] Lymphocytes/100 WBC (Bld) 16.4 % Normal [facility] Comment on above: Order Comment: Speci men Type: BLOOD SPECIMENOrdering Facility: [facility] Address: [address] [place], [place] [address] Performed By: #### 5 7021-8 ####[facility] LABCLIA [id number] [address] [place] MCH (RBC) [Entitic mass] 30.2 pg Normal 26.0-34.0 [facility] Comment on above: Order Comment: Speci men Type: BLOOD SPECIMENOrdering Facility: [facility] Address: [address] [place] [address] Performed By: #### 5 7021-8 ####[facility] LABIA [id number] [address] OF [facility] MCHC (RBC) [Mass/Vol] 33.1 g/dL Normal 30.5-36.0 [facility] Comment on above: Order Comment: Speci men Type: BLOOD SPECIMENOrdering Facility: [facility] Address: [address] [place] [address] Performed By: #### 5 7021-8 ####[facility] LABIA [id number] [address] [place] MCV (RBC) [Entitic vol] 91.3 fL Normal 80.0-100.0 [facility] Comment on above: Order Comment: Speci men Type: BLOOD SPECIMENOrdering Facility: [facility] Address: [address] [place] [address] Performed By: #### 5 7021-8 ####[facility] LABIA [id number] [place] [address] [place] Monocytes (Bld) [#/Vol] 0.98 10*3/uL High <0.87 [facility] Comment on above: Order Comment: Speci men Type: BLOOD SPECIMENOrdering Facility: [facility] Address: [address] [place], [place] [address] Performed By: #### 5 7021-8 ####[facility] LABCLIA [id number] [address] [place] Monocytes/100 WBC (Bld) 12.1 % Normal [facility] Comment on above: Order Comment: Speci men Type: BLOOD SPECIMENOrdering Facility: [facility] Address: [address] Performed By: #### 5 7021-8 ####[facility] LABCLIA [id number] [place] [address] [place] MYELO% 4.3 % Normal [facility] Comment on above: Order Comment: Speci men Type: BLOOD SPECIMENOrdering Facility: [facility] Address: [address] Performed By: #### 5 7021-8 ####[facility] LABCLIA [id number] [place] [address] [place] Neutrophils (Bld) [#/Vol] 5.25 10*3/uL Normal 1.45-7.50 [facility] Comment on above: Order Comment: Speci men Type: BLOOD SPECIMENOrdering Facility: [facility] Address: [address] Performed By: #### 5 7021-8 ####[facility] LABCLIA [id number] [place] [address] [place] Neutrophils/100 WBC (Bld) 64.6 % Normal [facility] Comment on above: Order Comment: Speci men Type: BLOOD SPECIMENOrdering Facility: [facility] Address: [address] [place] [address] Performed By: #### 5 7021-8 ####[facility] LABCLIA [id number] [place] [address] [place] Nucleated RBC (Bld) [#/Vol] 10*3/uL Normal <0.01 [facility] Comment on above: Order Comment: Speci men Type: BLOOD SPECIMENOrdering Facility: [facility] Address: [address] [place] [address] Performed By: #### 5 7021-8 ####[facility] LABCLIA [id number] [place] [address] [place] Nucleated RBC/100 WBC (Bld) [Ratio] 0.0 /100 WBC Normal [facility] Comment on above: Order Comment: Speci men Type: BLOOD SPECIMENOrdering Facility: [facility] Address: [address] [place] [address] Performed By: #### 5 7021-8 ####[facility] LABCLIA [id number] [place] [address] [place] Ovalocytes LM Ql (Bld) Few Normal [facility] Comment on above: Order Comment: Speci men Type: BLOOD SPECIMENOrdering Facility: [facility] Address: [address] [place] [address] Performed By: #### 5 7021-8 ####[facility] LABCLIA [id number] [place] [address] [place] Platelet mean volume (Bld) [Entitic vol] 9.9 fL Normal 9.0-12.7 [facility] Comment on above: Order Comment: Speci men Type: BLOOD SPECIMENOrdering Facility: [facility] Address: [address] [place] [address] Performed By: #### 5 7021-8 ####[facility] LABIA [id number] [place] [address] [place] Platelets (Bld) [#/Vol] 219 10*3/uL Normal 150-400 [facility] Comment on above: Order Comment: Speci men Type: BLOOD SPECIMENOrdering Facility: [facility] Address: [address] [place] [address] Performed By: #### 5 7021-8 ####[facility] LABCLIA [id number] [place] [address] [place] Platelets Estimate (Bld) [#/Vol] Adequate Normal [facility] Comment on above: Order Comment: Speci men Type: BLOOD SPECIMENOrdering Facility: [facility] Address: [address] [place], [place] [address] Performed By: #### 5 7021-8 ####[facility] LABCLIA [id number] [place] [address] [place] RBC (Bld) [#/Vol] 3.44 10*6/uL Low 4.20-6.00 [facility] Comment on above: Order Comment: Speci men Type: BLOOD SPECIMENOrdering Facility: [facility] Address: [address] [place] [address] Performed By: #### 5 7021-8 ####[facility] LABIA [id number] [place] [address] [place] RED CELL MORPH Reviewed: see result s of individual morphologies Normal [facility] Comment on above: Order Comment: Speci men Type: BLOOD SPECIMENOrdering Facility: [facility] Address: [address] [place], [place] [address] Performed By: #### 5 7021-8 ####[facility] LABCLIA [id number] [place] [address] [place] WBC (Bld) [#/Vol] 8.12 10*3/uL Normal 3.70-11.00 [facility] Comment on above: Order Comment: Speci men Type: BLOOD SPECIMENOrdering Facility: [facility] Address: [address] [place], [place] [address] Performed By: #### 5 7021-8 ####[facility] LABCLIA [id number] [place] [address] [place] WBC Left Shift Ql (Bld) Present Normal [facility] Comment on above: Order Comment: Speci men Type: BLOOD SPECIMENOrdering Facility: [facility] Address: [address] [place], [place] [address] Performed By: #### 5 7021-8 ####[facility] LABCLIA [id number] [place] [address] [place] CONSULT PROGon 06-29-2023 CONSULT PROG Normal [facility] CONSULT PROG Normal [facility] Magnesium SerPl-mCncon 06-29 Magnesium [Mass/Vol] 2.5 mg/dL High 1.7-2.3 [facility] Comment on above: Order Comment: Speci men Type: BLOOD SPECIMENOrdering Facility: [facility] Address: [address] [place] [address] Performed By: #### 2 4321-2, 68098-3, 2777-1 ####[facility] [id number] [place] [address] [place] PTT, ANTICOAGULANT THERAPYon 06-29-2023 aPTT Coag (PPP) [Time] 55.2 s High 23.0-32.4 [facility] Comment on above: Order Comment: Speci men Type: BLOOD SPECIMENOrdering Facility: [facility] Address: [address] [place] [address] Performed By: #### P TTAC ####[facility] [id number] [place] [address] [place] aPTT Coag (PPP) [Time] 51.0 s High 23.0-32.4 [facility] Comment on above: Order Comment: Speci men Type: BLOOD SPECIMENOrdering Facility: [facility] Address: [address] [place] [address] Result Comment: Samp le checked for clot. Performed By: #### P TTAC ####[facility] [id number] [place] [address] [place] Phosphate SerPl-mCncon 06-29 Phosphate [Mass/Vol] 3.5 mg/dL Normal 2.7-4.8 [facility] Comment on above: Order Comment: Speci men Type: BLOOD SPECIMENOrdering Facility: [facility] Address: [address] [id number] Performed By: #### 2 4321-2, 06769-0, 2777-1 ####[facility] LABCLIA [id number] [place] [address] [place] THERAPY NTon 06-29-2023 THERAPY NT Normal [facility] Tacrolimus Bld-mCncon 2022 Tacrolimus (Bld) [Mass/Vol] 8.7 ng/mL Normal 5.0-20.0 [facility] Comment on above: Order Comment: Speci men Type: BLOOD SPECIMENOrdering Facility: [facility] Address: [address] [address] Result Comment: Nayely vidualized target levels for a given patient will depend on many factors (including the type of organ transplant, time since transplantation, concurrent medications, and other clinical factors), and should be assessed by those health care providers experienced in the management of immunosuppression. Reference ranges and high/low indicator flags are provided as general guidelines only. The treating physician must determine appropriate target levels/dosing based on the specific clinical situation. Test performed by chemiluminescent immunoassay using Cumul[employer] Alinity i. Performed By: #### 1 1253-2 ####[facility] LABIA [id number] [place] [address] [place] ARTERIAL BLOOD GASESon 06-28 Base deficit (BldA) [Moles/Vol] -1 mmol/L Normal -2-0 [facility] Comment on above: Order Comment: Speci men Type: ARTERIAL BLOOD SPECIMENOrdering Facility: [facility] Address: [address] [address] Performed By: #### A LLBG ####[facility] LABIA [id number] [place] [address] [place] Body temperature 98.6 [degF] Normal [facility] Comment on above: Order Comment: Speci men Type: ARTERIAL BLOOD SPECIMENOrdering Facility: [facility] Address: [address] Performed By: #### A LLBG ####[facility] LABIA [id number] [place] [address] [place] Calcium.ionized (Bld) [Mass/Vol] 1.32 mmol/L High 1.08-1.30 [facility] Comment on above: Order Comment: Speci men Type: ARTERIAL BLOOD SPECIMENOrdering Facility: [facility] Address: [address] [place], [place] [address] Performed By: #### A LLBG ####[facility] LABIA [id number] [place] [address] [place] Calcium.ionized adjusted to pH 7.4 (BldA) [Moles/Vol] 1.31 mmol/L High 1.08-1.30 [facility] Comment on above: Order Comment: Speci men Type: ARTERIAL BLOOD SPECIMENOrdering Facility: [facility] Address: [address] [place], [place] [address] Performed By: #### A LLBG ####[facility] LABIA [id number] [place] [address] [place] Carboxyhemoglobin (BldA) [Mass fraction] 0.9 % Normal 0.0-2.0 [facility] Comment on above: Order Comment: Speci men Type: ARTERIAL BLOOD SPECIMENOrdering Facility: [facility] Address: [address] [place] [address] Result Comment: Carb oxyhemoglobin Reference Range for Smokers: 2.0-8.0% Performed By: #### A LLBG ####[facility] [id number] [place] [address] [place] CO2 (Bld) [Partial pressure] 39 mm Hg Normal 36-46 [facility] Comment on above: Order Comment: Speci men Type: ARTERIAL BLOOD SPECIMENOrdering Facility: [facility] Address: [address] [place], [place] [address] Performed By: #### A LLBG ####[facility] LABCLIA [id number] [place] [address] [place] FIO2 30 % Normal [facility] Comment on above: Order Comment: Speci men Type: ARTERIAL BLOOD SPECIMENOrdering Facility: [facility] Address: [address] [address] Performed By: #### A LLBG ####[facility] LABCLIA [id number] [place] [address] [place] Glucose [Mass/Vol] 123 mg/dL High 60-105 [facility] Comment on above: Order Comment: Speci men Type: ARTERIAL BLOOD SPECIMENOrdering Facility: [facility] Address: [address] [place] [address] Performed By: #### A LLBG ####[facility] LABCLIA [id number] [place] [address] [place] HCO3 (Bld) [Moles/Vol] 23 mmol/L Normal 22-26 [facility] Comment on above: Order Comment: Speci men Type: ARTERIAL BLOOD SPECIMENOrdering Facility: [facility] Address: [address] [place] [address] Performed By: #### A LLBG ####[facility]CLIA [id number] [place] [address] [place] Hematocrit (Bld) [Volume fraction] 32.9 % Low 39.0-51.0 [facility] Comment on above: Order Comment: Speci men Type: ARTERIAL BLOOD SPECIMENOrdering Facility: [facility] Address: [address] [place], [place] [address] Performed By: #### A LLBG ####[facility]CLIA [id number] [place] [address] [place] Hemoglobin (Bld) [Mass/Vol] 10.7 g/dL Low 13.0-17.0 [facility] Comment on above: Order Comment: Speci men Type: ARTERIAL BLOOD SPECIMENOrdering Facility: [facility] Address: [address] Performed By: #### A LLBG ####[facility]CLIA [id number] [place] [address] [place] Lactate [Moles/Vol] 0.7 mmol/L Normal 0.5-2.2 [facility] Comment on above: Order Comment: Speci men Type: ARTERIAL BLOOD SPECIMENOrdering Facility: [facility] Address: [address] Performed By: #### A LLBG ####[facility]CLIA [id number] [place] [address] [place] Methemoglobin (Bld) [Mass fraction] 0.9 % Normal 0.0-1.5 [facility] Comment on above: Order Comment: Speci men Type: ARTERIAL BLOOD SPECIMENOrdering Facility: [facility] Address: [address] Performed By: #### A LLBG ####[facility]CLIA [id number] [place] [address] [place] O2 THERAPY Ventilator Normal [facility] Comment on above: Order Comment: Speci men Type: ARTERIAL BLOOD SPECIMENOrdering Facility: [facility] Address: [address] Performed By: #### A LLBG ####[facility]CLIA [id number] [place] [address] [place] Oxygen (Bld) [Partial pressure] 119 mm Hg High 85-95 [facility] Comment on above: Order Comment: Speci men Type: ARTERIAL BLOOD SPECIMENOrdering Facility: [facility] Address: [address] Performed By: #### A LLBG ####[facility]CLIA [id number] [address] [place] Oxyhemoglobin (BldA) [Mass fraction] 97 % Normal 95-98 [facility] Comment on above: Order Comment: Speci men Type: ARTERIAL BLOOD SPECIMENOrdering Facility: [facility] Address: [address] [address] Performed By: #### A LLBG ####[facility]CLIA [id number] [place] [address] [place] PEEP/CPAP 5 cmH2O Normal [facility] Comment on above: Order Comment: Speci men Type: ARTERIAL BLOOD SPECIMENOrdering Facility: [facility] Address: [address] [place] [address] Performed By: #### A LLBG ####[facility]CL[facility] [id number] [place] [address] [place] pH (Bld) 7.39 [pH] Normal 7.35-7.45 [facility] Comment on above: Order Comment: Speci men Type: ARTERIAL BLOOD SPECIMENOrdering Facility: [facility] Address: [address] [place], [place] [address] Performed By: #### A LLBG ####[facility]CLIA [id number] [place] [address] [place] PO2 / FIO2 RATIO 397 mmHg Normal >300 [facility] Comment on above: Order Comment: Speci men Type: ARTERIAL BLOOD SPECIMENOrdering Facility: [facility] Address: [address] Performed By: #### A LLBG ####[facility]CLIA [id number] [place] [address] [place] Potassium [Moles/Vol] 4.1 mmol/L Normal 3.5-5.0 [facility] Comment on above: Order Comment: Speci men Type: ARTERIAL BLOOD SPECIMENOrdering Facility: [facility] Address: [address] [place] [address] Performed By: #### A LLBG ####[facility]CLIA [id number] [place] [address] [place] Sodium [Moles/Vol] 137 mmol/L Normal 136-144 [facility] Comment on above: Order Comment: Speci men Type: ARTERIAL BLOOD SPECIMENOrdering Facility: [facility] Address: [address] Performed By: #### A LLBG ####[facility]CL[facility] [id number] [place] [address] [place] Basic metabolic 2000 panelon 06-28-2023 Anion gap [Moles/Vol] 10 mmol/L Normal 9-18 [facility] Comment on above: Order Comment: Speci men Type: BLOOD SPECIMENOrdering Facility: [facility] Address: [address] Performed By: #### 2 4321-2, 2776-10, ####[facility]IA [id number] [place] [address] [place] Calcium [Mass/Vol] 9.5 mg/dL Normal 8.5-10.2 [facility] Comment on above: Order Comment: Speci men Type: BLOOD SPECIMENOrdering Facility: [facility] Address: [address] [place] [address] Performed By: #### 2 4321-2, 2776-10, ####[facility] [id number] [place] [id number] [place] Chloride [Moles/Vol] 105 mmol/L Normal 97-105 [facility] Comment on above: Order Comment: Speci men Type: BLOOD SPECIMENOrdering Facility: [facility] Address: [address] [place] [address] Performed By: #### 2 4321-2, 2776-10 ####[facility] LABCLIA [id number] [place] [address] [place] CO2 [Moles/Vol] 25 mmol/L Normal 22-30 [facility] Comment on above: Order Comment: Speci men Type: BLOOD SPECIMENOrdering Facility: [facility] Address: [address] [place] [address] Performed By: #### 2 4321-2, 2776-10, ####[facility] LABCLIA [id number] [place] [address] [place] Creatinine [Mass/Vol] 2.80 mg/dL High 0.73-1.22 [facility] Comment on above: Order Comment: Speci men Type: BLOOD SPECIMENOrdering Facility: [facility] Address: [address] [place] [address] Performed By: #### 2 4321-2, 2776-10, ####[facility] [id number] [place] [address] [place] Creatinine and Glomerular filtration rate.predicted panel (S/P/Bld) 26 mL/min/1.73m??? Low >=60 [facility] Comment on above: Order Comment: Speci men Type: BLOOD SPECIMENOrdering Facility: [facility] Address: [address] [place] [address] Result Comment: Dayan mated Glomerular Filtration Rate (eGFR) is calculated using the 2020 CKD-EPI creatinine equation. This equation utilizes serum creatinine, sex, and age as parameters. The creatinine assay has traceable calibration to isotope dilution-mass spectrometry. Refer to KDIGO guidelines for clinical interpretation. In patients with unstable renal function, e.g. those with acute kidney injury, the eGFR may not accurately reflect actual GFR. Performed By: #### 2 4321-2, 2776-10, ####[facility] [id number] [place] [id number] [place] Glucose [Mass/Vol] 114 mg/dL High 74-99 [facility] Comment on above: Order Comment: Speci men Type: BLOOD SPECIMENOrdering Facility: [facility] Address: [address] [place], [place] [address] Result Comment: The [place] Diabetes Association (ADA) provides guidance for cutoff values for fasting glucose and random glucose. The ADA defines fasting as no caloric intake for at least 8 hours. Fasting plasma glucose results between 100 to 125 mg/dL indicate increased risk for diabetes (prediabetes).Fasting plasma glucose results greater than or equal to 126 mg/dL meet the criteria for diagnosis of diabetes. In the absence of unequivocal hyperglycemia, results should be confirmed by repeat testing. In a patient with classic symptoms of hyperglycemia or hyperglycemic crisis, random plasma glucose results greater than or equal to 200 mg/dL meet the criteria for diagnosis of diabetes.Reference: Standards of Medical Care in Diabetes 2016, [place] [employer] Association. Diabetes Care. 2016.39(Suppl 1). Performed By: #### 2 4321-2, 2777-, ####[facility]CLIA [id number] [place] [address] [place] Potassium [Moles/Vol] 4.2 mmol/L Normal 3.7-5.1 [facility] Comment on above: Order Comment: Speci men Type: BLOOD SPECIMENOrdering Facility: [facility] Address: [address] [place] [id number] Performed By: #### 2 4321-2, 2777, ####[facility]CLIA [id number] [place] [address] [place] Sodium [Moles/Vol] 140 mmol/L Normal 136-144 [facility] Comment on above: Order Comment: Speci men Type: BLOOD SPECIMENOrdering Facility: [facility] Address: [address] [place], [place] [address] Performed By: #### 2 4321-2, 2777-, ####[facility] LABCLIA [id number] [place] [address] [place] Urea nitrogen [Mass/Vol] 56 mg/dL High 9-24 [facility] Comment on above: Order Comment: Speci men Type: BLOOD SPECIMENOrdering Facility: [facility] Address: [address] [place] [address] Performed By: #### 2 4321-2, 2777-1, 59241-9 ####[facility] LABCLIA [id number] [place] [address] [place] CBC W Auto Differential pane l (Bld)on 06-28-2023 Basophils (Bld) [#/Vol] 10*3/uL Normal <0.11 [facility] Comment on above: Order Comment: Speci men Type: BLOOD SPECIMENOrdering Facility: [facility] Address: [address] [place] [address] Performed By: #### 5 7021-8 ####[facility]CLIA [id number] [place] [address] [place] Basophils/100 WBC (Bld) 0.2 % Normal [facility] Comment on above: Order Comment: Speci men Type: BLOOD SPECIMENOrdering Facility: [facility] Address: [address] [place] [address] Performed By: #### 5 7021-8 ####[facility]CLIA [id number] [place] [address] [place] Differential cell count method Nom (Bld) Auto Normal [facility] Comment on above: Order Comment: Speci men Type: BLOOD SPECIMENOrdering Facility: [facility] Address: [address] [place], [place] [address] Performed By: #### 5 7021-8 ####[facility]CLIA [id number] [place] [address] [place] Eosinophils (Bld) [#/Vol] 0.11 10*3/uL Normal <0.46 [facility] Comment on above: Order Comment: Speci men Type: BLOOD SPECIMENOrdering Facility: [facility] Address: [address] [place] [address] Performed By: #### 5 7021-8 ####[facility]CLIA [id number] [place] [address] [place] Eosinophils/100 WBC (Bld) 1.3 % Normal [facility] Comment on above: Order Comment: Speci men Type: BLOOD SPECIMENOrdering Facility: [facility] Address: [address] [place] [address] Performed By: #### 5 7021-8 ####[facility] [id number] [place] [address] [place] Erythrocyte distribution width (RBC) [Ratio] 13.4 % Normal 11.5-15.0 [facility] Comment on above: Order Comment: Speci men Type: BLOOD SPECIMENOrdering Facility: [facility] Address: [address] Performed By: #### 5 7021-8 ####[facility] [id number] [place] [address] [place] Hematocrit (Bld) [Volume fraction] 31.8 % Low 39.0-51.0 [facility] Comment on above: Order Comment: Speci men Type: BLOOD SPECIMENOrdering Facility: [facility] Address: [address] Performed By: #### 5 7021-8 ####[facility] [id number] [place] [address] [place] Hemoglobin (Bld) [Mass/Vol] 10.5 g/dL Low 13.0-17.0 [facility] Comment on above: Order Comment: Speci men Type: BLOOD SPECIMENOrdering Facility: [facility] Address: [address] Performed By: #### 5 7021-8 ####[facility] LABCLIA [id number] [place] [address] [place] Immature granulocytes (Bld) [#/Vol] 0.04 10*3/uL Normal <0.10 [facility] Comment on above: Order Comment: Speci men Type: BLOOD SPECIMENOrdering Facility: [facility] Address: [address] [place] [address] Performed By: #### 5 7021-8 ####[facility] LABCLIA [id number] [address] [place] Immature granulocytes/100 WBC (Bld) 0.5 % Normal [facility] Comment on above: Order Comment: Speci men Type: BLOOD SPECIMENOrdering Facility: [facility] Address: [address] [place] [address] Performed By: #### 5 7021-8 ####[facility]CLIA [id number] [place] [address] [place] Lymphocytes (Bld) [#/Vol] 2.63 10*3/uL Normal 1.00-4.00 [facility] Comment on above: Order Comment: Speci men Type: BLOOD SPECIMENOrdering Facility: [facility] Address: [address] [place] [address] Performed By: #### 5 7021-8 ####[facility] LABCLIA [id number] [address] [place] Lymphocytes/100 WBC (Bld) 31.5 % Normal [facility] Comment on above: Order Comment: Speci men Type: BLOOD SPECIMENOrdering Facility: [facility] Address: [address] [place] [address] Performed By: #### 5 7021-8 ####[facility]CLIA [id number] [place] [address] [place] MCH (RBC) [Entitic mass] 30.3 pg Normal 26.0-34.0 [facility] Comment on above: Order Comment: Speci men Type: BLOOD SPECIMENOrdering Facility: [facility] Address: [address] [place] [address] Performed By: #### 5 7021-8 ####[facility]CLIA [id number] [place] [address] [place] MCHC (RBC) [Mass/Vol] 33.0 g/dL Normal 30.5-36.0 [facility] Comment on above: Order Comment: Speci men Type: BLOOD SPECIMENOrdering Facility: [facility] Address: [address] [place] [address] Performed By: #### 5 7021-8 ####[facility] LABCLIA [id number] [place] [address] [place] MCV (RBC) [Entitic vol] 91.6 fL Normal 80.0-100.0 [facility] Comment on above: Order Comment: Speci men Type: BLOOD SPECIMENOrdering Facility: [facility] Address: [address] [place], [place] [address] Performed By: #### 5 7021-8 ####[facility] [id number] [place] [address] [place] Monocytes (Bld) [#/Vol] 0.90 10*3/uL High <0.87 [facility] Comment on above: Order Comment: Speci men Type: BLOOD SPECIMENOrdering Facility: [facility] Address: [address] [place], [place] [address] Performed By: #### 5 7021-8 ####[facility]CLIA [id number] [address] [place] Monocytes/100 WBC (Bld) 10.8 % Normal [facility] Comment on above: Order Comment: Speci men Type: BLOOD SPECIMENOrdering Facility: [facility] Address: [address] [place] [address] Performed By: #### 5 7021-8 ####[facility]CLIA [id number] [place] [address] [place] Neutrophils (Bld) [#/Vol] 4.66 10*3/uL Normal 1.45-7.50 [facility] Comment on above: Order Comment: Speci men Type: BLOOD SPECIMENOrdering Facility: [facility] Address: [address] Performed By: #### 5 7021-8 ####[facility]CLIA [id number] [place] [address] [place] Neutrophils/100 WBC (Bld) 55.7 % Normal [facility] Comment on above: Order Comment: Speci men Type: BLOOD SPECIMENOrdering Facility: [facility] Address: [address] Performed By: #### 5 7021-8 ####[facility] LABCLIA [id number] [place] [address] [place] Nucleated RBC (Bld) [#/Vol] 10*3/uL Normal <0.01 [facility] Comment on above: Order Comment: Speci men Type: BLOOD SPECIMENOrdering Facility: [facility] Address: [address] Performed By: #### 5 7021-8 ####[facility]CLIA [id number] [place] [address] [place] Nucleated RBC/100 WBC (Bld) [Ratio] 0.0 /100 WBC Normal [facility] Comment on above: Order Comment: Speci men Type: BLOOD SPECIMENOrdering Facility: [facility] Address: [address] Performed By: #### 5 7021-8 ####[facility]CLIA [id number] [place] [address] [place] Platelet mean volume (Bld) [Entitic vol] 10.6 fL Normal 9.0-12.7 [facility] Comment on above: Order Comment: Speci men Type: BLOOD SPECIMENOrdering Facility: [facility] Address: [address] [place], [place] [address] Performed By: #### 5 7021-8 ####[facility]CLIA [id number] [place] [address] [place] Platelets (Bld) [#/Vol] 163 10*3/uL Normal 150-400 [facility] Comment on above: Order Comment: Speci men Type: BLOOD SPECIMENOrdering Facility: [facility] Address: [address] [place], [place] [address] Performed By: #### 5 7021-8 ####[facility]CLIA [id number] [place] [address] [place] RBC (Bld) [#/Vol] 3.47 10*6/uL Low 4.20-6.00 [facility] Comment on above: Order Comment: Speci men Type: BLOOD SPECIMENOrdering Facility: [facility] Address: [address] [place], [place] [address] Performed By: #### 5 7021-8 ####[facility] [id number] [place] [address] [place] WBC (Bld) [#/Vol] 8.36 10*3/uL Normal 3.70-11.00 [facility] Comment on above: Order Comment: Speci men Type: BLOOD SPECIMENOrdering Facility: [facility] Address: [address] [place], [place] [address] Performed By: #### 5 7021-8 ####[facility]CLIA [id number] [place] [address] [place] CONSULT PROGon 06-28-2023 CONSULT PROG Normal [facility] CONSULT PROG Normal [facility] CT BRAIN WO IVCONon 06-28-20 CT BRAIN WO IVCON Normal [facility] Magnesium SerPl-mCncon 06-28 Magnesium [Mass/Vol] 2.8 mg/dL High 1.7-2.3 [facility] Comment on above: Order Comment: Speci men Type: BLOOD SPECIMENOrdering Facility: [facility] Address: [address] [place] [address] Performed By: #### 2 4321-2, 2777-1, 57057-0 ####[facility] [id number] [place] [address] [place] NUTRITIONon 06-28-2023 NUTRITION Normal [facility] PTT, ANTICOAGULANT THERAPYon 06-28-2023 aPTT Coag (PPP) [Time] 72.3 s High 23.0-32.4 [facility] Comment on above: Order Comment: Speci men Type: BLOOD SPECIMENOrdering Facility: [facility] Address: [address] [place] [address] Performed By: #### P TTAC ####[facility] [id number] [place] [address] [place] aPTT Coag (PPP) [Time] 60.4 s High 23.0-32.4 [facility] Comment on above: Order Comment: Speci men Type: BLOOD SPECIMENOrdering Facility: [facility] Address: [address] [place] [address] Performed By: #### P TTAC ####[facility] [id number] [place] [address] [place] Phosphate SerPl-mCncon 06-28 Phosphate [Mass/Vol] 3.3 mg/dL Normal 2.7-4.8 [facility] Comment on above: Order Comment: Speci men Type: BLOOD SPECIMENOrdering Facility: [facility] Address: [address] [place] [address] Performed By: #### 2 4321-2, 2777-1, 84750-0 ####[facility] [id number] [address] [place] THERAPY NTon 06-28-2023 THERAPY NT Normal [facility] THERAPY NT Normal [facility] Tacrolimus Bld-mCncon 2022 Tacrolimus (Bld) [Mass/Vol] 12.2 ng/mL Normal 5.0-20.0 [facility] Comment on above: Order Comment: Speci men Type: BLOOD SPECIMENOrdering Facility: [facility] Address: [address] [place] [address] Result Comment: Nayely vidualized target levels for a given patient will depend on many factors (including the type of organ transplant, time since transplantation, concurrent medications, and other clinical factors), and should be assessed by those health care providers experienced in the management of immunosuppression. Reference ranges and high/low indicator flags are provided as general guidelines only. The treating physician must determine appropriate target levels/dosing based on the specific clinical situation. Test performed by chemiluminescent immunoassay using [employer] i. Performed By: #### 1 1253-2 ####[facility] [id number] [address] [place] aPTT PPPon 06-28-2023 aPTT Coag (PPP) [Time] 47.5 s High 23.0-32.4 [facility] Comment on above: Order Comment: Speci men Type: BLOOD SPECIMENOrdering Facility: [facility] Address: [address] [place] [id number] Performed By: #### 1 4979-9 ####[facility] [id number] [address] [place] [facility] aPTT Coag (PPP) [Time] 68.0 s High 23.0-32.4 [facility] Comment on above: Order Comment: Speci men Type: BLOOD SPECIMENOrdering Facility: [facility] Address: [address] [place] [address] Performed By: #### 1 4979-9 ####[facility] [id number] [address] APIXABAN ASSAYon 06-27-2023 APIXABAN <23 Normal [facility] Comment on above: Order Comment: Speci men Type: BLOOD SPECIMENOrdering Facility: [facility] Address: [address] [place] [address] Result Comment: APIX ABAN PEAK AND TROUGH PLASMA CONCENTRATION RANGESIndication: Prevention of venous thromboembolism (VTE)Dose: 2.5 mg twice daily (BID)Peak: 41 to 146 ng/mLTrough: 23 to 109 ng/mLIndication: Prevention of Stroke and Systemic Embolism in non-valvular atrial fibrillationDose: 2.5 mg BIDPeak: 69 to 221 ng/mLTrough: 34 to 162 ng/mLDose: 5 mg BIDPeak: 91 to 321 ng/mLTrough: 41 to 230 ng/mLIndication: Treatment of VTE and Prevention of Recurrent VTEDose: 2.5 mg BIDPeak: 30 to 153 ng/mLTrough: 11 to 90 ng/mLDose: 5 mg BIDPeak: 59 to 302 ng/mLTrough: 22 to 177 ng/mLDose: 10 mg BIDPeak: 111 to 572 ng/mLTrough: 41 to 335 ng/mLReference: Tessy. CPT Pharmacocetrics Syst Pharmacol. 2017;6(5):340-349. Performed By: #### 1 4979-9, APIXBN ####[facility] [id number] [address] [place] ARTERIAL BLOOD GASESon 06-27 Base excess Calc (Bld) [Moles/Vol] 0 mmol/L Normal 0-2 [facility] Comment on above: Order Comment: Speci men Type: ARTERIAL BLOOD SPECIMENOrdering Facility: [facility] Address: [address] [place] [address] Performed By: #### A LLBG ####[facility] [id number] [address] [place] Body temperature 98.6 [degF] Normal [facility] Comment on above: Order Comment: Speci men Type: ARTERIAL BLOOD SPECIMENOrdering Facility: [facility] Address: [address] [place] [address] Performed By: #### A LLBG ####[facility]CL[facility] [id number] [place] [address] [place] Calcium.ionized (Bld) [Mass/Vol] 1.32 mmol/L High 1.08-1.30 [facility] Comment on above: Order Comment: Speci men Type: ARTERIAL BLOOD SPECIMENOrdering Facility: [facility] Address: [address] [place] [address] Performed By: #### A LLBG ####[facility]CL[facility] [id number] [address] Calcium.ionized adjusted to pH 7.4 (BldA) [Moles/Vol] 1.33 mmol/L High 1.08-1.30 [facility] Comment on above: Order Comment: Speci men Type: ARTERIAL BLOOD SPECIMENOrdering Facility: [facility] Address: [address] [place] [address] Performed By: #### A LLBG ####[facility]CL[facility] [id number] [place] [address] [place] Carboxyhemoglobin (BldA) [Mass fraction] 0.5 % Normal 0.0-2.0 [facility] Comment on above: Order Comment: Speci men Type: ARTERIAL BLOOD SPECIMENOrdering Facility: [facility] Address: [address] [place], [place] [address] Result Comment: Carb oxyhemoglobin Reference Range for Smokers: 2.0-8.0% Performed By: #### A LLBG ####[facility]CL[facility] [id number] [place] [address] [place] CO2 (Bld) [Partial pressure] 39 mm Hg Normal 36-46 [facility] Comment on above: Order Comment: Speci men Type: ARTERIAL BLOOD SPECIMENOrdering Facility: [facility] Address: [address] Performed By: #### A LLBG ####[facility] [id number] [place] [address] [place] FIO2 30 % Normal [facility] Comment on above: Order Comment: Speci men Type: ARTERIAL BLOOD SPECIMENOrdering Facility: [facility] Address: [address] Performed By: #### A LLBG ####[facility] [id number] [place] [address] [place] Glucose [Mass/Vol] 127 mg/dL High 60-105 [facility] Comment on above: Order Comment: Speci men Type: ARTERIAL BLOOD SPECIMENOrdering Facility: [facility] Address: [address] Performed By: #### A LLBG ####[facility] [id number] [address] [place] HCO3 (Bld) [Moles/Vol] 24 mmol/L Normal 22-26 [facility] Comment on above: Order Comment: Speci men Type: ARTERIAL BLOOD SPECIMENOrdering Facility: [facility] Address: [address] Performed By: #### A LLBG ####[facility]CL[facility] [id number] [place] [address] [place] Hematocrit (Bld) [Volume fraction] 33.9 % Low 39.0-51.0 [facility] Comment on above: Order Comment: Speci men Type: ARTERIAL BLOOD SPECIMENOrdering Facility: [facility] Address: [address] Performed By: #### A LLBG ####[facility] [id number] [place] [address] [place] Hemoglobin (Bld) [Mass/Vol] 11.0 g/dL Low 13.0-17.0 [facility] Comment on above: Order Comment: Speci men Type: ARTERIAL BLOOD SPECIMENOrdering Facility: [facility] Address: [address] [place], [place] [address] Performed By: #### A LLBG ####[facility] [id number] [place] [address] [place] Lactate [Moles/Vol] 0.6 mmol/L Normal 0.5-2.2 [facility] Comment on above: Order Comment: Speci men Type: ARTERIAL BLOOD SPECIMENOrdering Facility: [facility] Address: [address] [place], [place] [address] Performed By: #### A LLBG ####[facility] [id number] [address] [place] Methemoglobin (Bld) [Mass fraction] 0.6 % Normal 0.0-1.5 [facility] Comment on above: Order Comment: Speci men Type: ARTERIAL BLOOD SPECIMENOrdering Facility: [facility] Address: [address] [place], [place] [address] Performed By: #### A LLBG ####[facility] [id number] [place] [address] [place] O2 THERAPY Ventilator Normal [facility] Comment on above: Order Comment: Speci men Type: ARTERIAL BLOOD SPECIMENOrdering Facility: [facility] Address: [address] [place], [place] [address] Performed By: #### A LLBG ####[facility] [id number] [place] [address] [place] Oxygen (Bld) [Partial pressure] 123 mm Hg High 85-95 [facility] Comment on above: Order Comment: Speci men Type: ARTERIAL BLOOD SPECIMENOrdering Facility: [facility] Address: [address] Performed By: #### A LLBG ####[facility] [id number] [place] [address] [place] Oxyhemoglobin (BldA) [Mass fraction] 97 % Normal 95-98 [facility] Comment on above: Order Comment: Speci men Type: ARTERIAL BLOOD SPECIMENOrdering Facility: [facility] Address: [address] Performed By: #### A LLBG ####[facility] [id number] [place] [address] [place] pH (Bld) 7.41 [pH] Normal 7.35-7.45 [facility] Comment on above: Order Comment: Speci men Type: ARTERIAL BLOOD SPECIMENOrdering Facility: [facility] Address: [address] Performed By: #### A LLBG ####[facility] [id number] [place] [address] [place] [place] PO2 / FIO2 RATIO 410 mmHg Normal >300 [facility] Comment on above: Order Comment: Speci men Type: ARTERIAL BLOOD SPECIMENOrdering Facility: [facility] Address: [address] Performed By: #### A LLBG ####[facility] LABCLIA [id number] [place] [address] [place] Potassium [Moles/Vol] 4.0 mmol/L Normal 3.5-5.0 [facility] Comment on above: Order Comment: Speci men Type: ARTERIAL BLOOD SPECIMENOrdering Facility: [facility] Address: [address] Performed By: #### A LLBG ####[facility] LABCLIA [id number] [place] [address] [place] Sodium [Moles/Vol] 137 mmol/L Normal 136-144 [facility] Comment on above: Order Comment: Speci men Type: ARTERIAL BLOOD SPECIMENOrdering Facility: [facility] Address: [address] [address] Performed By: #### A LLBG ####[facility] LABCLIA [id number] [place] [address] [place] Basic metabolic 2000 panelon 06-27-2023 Anion gap [Moles/Vol] 13 mmol/L Normal -18 [facility] Comment on above: Order Comment: Speci men Type: BLOOD SPECIMENOrdering Facility: [facility] Address: [address] [place], [place] [address] Performed By: #### 1 9123-9, 2777-1, 42440-1 ####[facility] LABCLIA [id number] [place] [address] [place] Calcium [Mass/Vol] 9.6 mg/dL Normal 8.5-10.2 [facility] Comment on above: Order Comment: Speci men Type: BLOOD SPECIMENOrdering Facility: [facility] Address: [address] [place], [place] [address] Performed By: #### 1 9123-9, 2777-1, 06986-6 ####[facility] LABCLIA [id number] [place] [address] [place] Chloride [Moles/Vol] 104 mmol/L Normal 97-105 [facility] Comment on above: Order Comment: Speci men Type: BLOOD SPECIMENOrdering Facility: [facility] Address: [address] [place], [place] [address] Performed By: #### 1 9123-9, 2777-1, 52532-9 ####[facility] LABCLIA [id number] [place] [address] [place] CO2 [Moles/Vol] 23 mmol/L Normal 22-30 [facility] Comment on above: Order Comment: Speci men Type: BLOOD SPECIMENOrdering Facility: [facility] Address: [address] [place] [address] Performed By: #### 1 9123-9, 2777-1, 95901-3 ####[facility] LABCLIA [id number] [place] [address] [place] Creatinine [Mass/Vol] 2.80 mg/dL High 0.73-1.22 [facility] Comment on above: Order Comment: Speci men Type: BLOOD SPECIMENOrdering Facility: [facility] Address: [address] [place] [address] Performed By: #### 1 9123-9, 2777, 31396-7 ####[facility] LABCLIA [id number] [address] [facility] Creatinine and Glomerular filtration rate.predicted panel (S/P/Bld) 26 mL/min/1.73m??? Low >=60 [facility] Comment on above: Order Comment: Iesha marin Type: BLOOD SPECIMENOrdering Facility: [facility] Address: [address] [place] [address] Result Comment: Dayan mated Glomerular Filtration Rate (eGFR) is calculated using the 2020 CKD-EPI creatinine equation. This equation utilizes serum creatinine, sex, and age as parameters. The creatinine assay has traceable calibration to isotope dilution-mass spectrometry. Refer to KDIGO guidelines for clinical interpretation. In patients with unstable renal function, e.g. those with acute kidney injury, the eGFR may not accurately reflect actual GFR. Performed By: #### 1 9123-9, 2777-, 02472-5 ####[facility] LABCLIA [id number] [place] [address] [place] Glucose [Mass/Vol] 112 mg/dL High 74-99 [facility] Comment on above: Order Comment: Speci men Type: BLOOD SPECIMENOrdering Facility: [facility] Address: [place] [address] Result Comment: The [place] Diabetes Association (ADA) provides guidance for cutoff values for fasting glucose and random glucose. The ADA defines fasting as no caloric intake for at least 8 hours. Fasting plasma glucose results between 100 to 125 mg/dL indicate increased risk for diabetes (prediabetes).Fasting plasma glucose results greater than or equal to 126 mg/dL meet the criteria for diagnosis of diabetes. In the absence of unequivocal hyperglycemia, results should be confirmed by repeat testing. In a patient with classic symptoms of hyperglycemia or hyperglycemic crisis, random plasma glucose results greater than or equal to 200 mg/dL meet the criteria for diagnosis of diabetes.Reference: Standards of Medical Care in Diabetes 2016, [place] Diabetes Association. Diabetes Care. 2016.39(Suppl 1). Performed By: #### 1 9123-9, 2777-, 31245-5 ####[facility] LABCLIA [id number] [place] [address] [place] Potassium [Moles/Vol] 4.1 mmol/L Normal 3.7-5.1 [facility] Comment on above: Order Comment: Iesha marin Type: BLOOD SPECIMENOrdering Facility: [facility] Address: [place] [address] Performed By: #### 1 9123-9, 2777, 13524-2 ####[facility] LABCLIA [id number] [place] [address] [place] Sodium [Moles/Vol] 140 mmol/L Normal 136-144 [facility] Comment on above: Order Comment: Iesha marin Type: BLOOD SPECIMENOrdering Facility: [facility] Address: [address] [place] [address] Performed By: #### 1 9123-9, 2777, 50633-2 ####[facility] LABCLIA [id number] [address] [address] [place] Urea nitrogen [Mass/Vol] 54 mg/dL High 9-24 [facility] Comment on above: Order Comment: Speci men Type: BLOOD SPECIMENOrdering Facility: [facility] Address: [address] [place] [address] Performed By: #### 1 9123-9, 2777-1, 92545-8 ####[facility] LABCLIA [id number] [place] [address] [place] CASE MANAGEMon 06-27-2023 CASE MANAGEM Normal [facility] CBC W Auto Differential pane l (Bld)on 06-27-2023 Basophils (Bld) [#/Vol] 10*3/uL Normal <0.11 [facility] Comment on above: Order Comment: Speci men Type: BLOOD SPECIMENOrdering Facility: [facility] Address: [address] [place] [address] Performed By: #### 5 7021-8 ####[facility] LABCLIA [id number] [place] [address] [place] Basophils/100 WBC (Bld) 0.1 % Normal [facility] Comment on above: Order Comment: Speci men Type: BLOOD SPECIMENOrdering Facility: [facility] Address: [address] [place] [address] Performed By: #### 5 7021-8 ####[facility] LABCLIA [id number] [place] [address] [place] Differential cell count method Nom (Bld) Auto Normal [facility] Comment on above: Order Comment: Speci men Type: BLOOD SPECIMENOrdering Facility: [facility] Address: [address] [place] [address] Performed By: #### 5 7021-8 ####[facility] LABCLIA [id number] [place] [address] [place] Eosinophils (Bld) [#/Vol] 0.04 10*3/uL Normal <0.46 [facility] Comment on above: Order Comment: Speci men Type: BLOOD SPECIMENOrdering Facility: [facility] Address: [address] [address] Performed By: #### 5 7021-8 ####[facility] LABCLIA [id number] [place] [address] [place] Eosinophils/100 WBC (Bld) 0.5 % Normal [facility] Comment on above: Order Comment: Speci men Type: BLOOD SPECIMENOrdering Facility: [facility] Address: [address] Performed By: #### 5 7021-8 ####[facility] LABCLIA [id number] [place] [address] [place] Erythrocyte distribution width (RBC) [Ratio] 13.0 % Normal 11.5-15.0 [facility] Comment on above: Order Comment: Speci men Type: BLOOD SPECIMENOrdering Facility: [facility] Address: [address] [place], [place] [address] Performed By: #### 5 7021-8 ####[facility] LABCLIA [id number] [place] [address] [place] Hematocrit (Bld) [Volume fraction] 32.8 % Low 39.0-51.0 [facility] Comment on above: Order Comment: Speci men Type: BLOOD SPECIMENOrdering Facility: [facility] Address: [address] [place], [place] [address] Performed By: #### 5 7021-8 ####[facility] LABCLIA [id number] [place] [address] [place] Hemoglobin (Bld) [Mass/Vol] 10.9 g/dL Low 13.0-17.0 [facility] Comment on above: Order Comment: Speci men Type: BLOOD SPECIMENOrdering Facility: [facility] Address: [address] Performed By: #### 5 7021-8 ####[facility] LABCLIA [id number] [place] [address] [place] Immature granulocytes (Bld) [#/Vol] 0.05 10*3/uL Normal <0.10 [facility] Comment on above: Order Comment: Speci men Type: BLOOD SPECIMENOrdering Facility: [facility] Address: [address] [place] [address] Performed By: #### 5 7021-8 ####[facility] LABCLIA [id number] [place] [address] [place] Immature granulocytes/100 WBC (Bld) 0.6 % Normal [facility] Comment on above: Order Comment: Speci men Type: BLOOD SPECIMENOrdering Facility: [facility] Address: [address] [place] [address] Performed By: #### 5 7021-8 ####[facility] LABCLIA [id number] [place] [address] [place] Lymphocytes (Bld) [#/Vol] 1.91 10*3/uL Normal 1.00-4.00 [facility] Comment on above: Order Comment: Speci men Type: BLOOD SPECIMENOrdering Facility: [facility] Address: [address] [place], [place] [address] Performed By: #### 5 7021-8 ####[facility] LABCLIA [id number] [place] [address] [place] Lymphocytes/100 WBC (Bld) 22.1 % Normal [facility] Comment on above: Order Comment: Speci men Type: BLOOD SPECIMENOrdering Facility: [facility] Address: [address] [place], [place] [address] Performed By: #### 5 7021-8 ####[facility] LABCLIA [id number] [place] [address] [place] MCH (RBC) [Entitic mass] 30.5 pg Normal 26.0-34.0 [facility] Comment on above: Order Comment: Speci men Type: BLOOD SPECIMENOrdering Facility: [facility] Address: [address] Performed By: #### 5 7021-8 ####[facility] LABIA [id number] [place] [address] [place] MCHC (RBC) [Mass/Vol] 33.2 g/dL Normal 30.5-36.0 [facility] Comment on above: Order Comment: Speci men Type: BLOOD SPECIMENOrdering Facility: [facility] Address: [address] [place], [place] [address] Performed By: #### 5 7021-8 ####[facility] LABIA [id number] [place] [address] [place] MCV (RBC) [Entitic vol] 91.9 fL Normal 80.0-100.0 [facility] Comment on above: Order Comment: Speci men Type: BLOOD SPECIMENOrdering Facility: [facility] Address: [address] Performed By: #### 5 7021-8 ####[facility] LABIA [id number] [place] [address] [place] Monocytes (Bld) [#/Vol] 0.95 10*3/uL High <0.87 [facility] Comment on above: Order Comment: Speci men Type: BLOOD SPECIMENOrdering Facility: [facility] Address: [address] Performed By: #### 5 7021-8 ####[facility] LABIA [id number] [place] [address] [place] Monocytes/100 WBC (Bld) 11.0 % Normal [facility] Comment on above: Order Comment: Speci men Type: BLOOD SPECIMENOrdering Facility: [facility] Address: [address] [place], [place] [address] Performed By: #### 5 7021-8 ####[facility] LABCLIA [id number] [place] [address] [place] Neutrophils (Bld) [#/Vol] 5.69 10*3/uL Normal 1.45-7.50 [facility] Comment on above: Order Comment: Speci men Type: BLOOD SPECIMENOrdering Facility: [facility] Address: [address] [place], [place] [address] Performed By: #### 5 7021-8 ####[facility] LABCLIA [id number] [place] [address] [place] Neutrophils/100 WBC (Bld) 65.7 % Normal [facility] Comment on above: Order Comment: Speci men Type: BLOOD SPECIMENOrdering Facility: [facility] Address: [address] [place], [place] [address] Performed By: #### 5 7021-8 ####[facility] LABCLIA [id number] [place] [address] [place] Nucleated RBC (Bld) [#/Vol] 10*3/uL Normal <0.01 [facility] Comment on above: Order Comment: Speci men Type: BLOOD SPECIMENOrdering Facility: [facility] Address: [address] [place], [place] [address] Performed By: #### 5 7021-8 ####[facility] LABCLIA [id number] [place] [address] [place] Nucleated RBC/100 WBC (Bld) [Ratio] 0.0 /100 WBC Normal [facility] Comment on above: Order Comment: Speci men Type: BLOOD SPECIMENOrdering Facility: [facility] Address: [address] [place] [address] Performed By: #### 5 7021-8 ####[facility] LABCLIA [id number] [place] [address] [place] Platelet mean volume (Bld) [Entitic vol] 9.8 fL Normal 9.0-12.7 [facility] Comment on above: Order Comment: Speci men Type: BLOOD SPECIMENOrdering Facility: [facility] Address: [address] [place] [address] Performed By: #### 5 7021-8 ####[facility] LABCLIA [id number] [place] [address] [place] Platelets (Bld) [#/Vol] 158 10*3/uL Normal 150-400 [facility] Comment on above: Order Comment: Speci men Type: BLOOD SPECIMENOrdering Facility: [facility] Address: [address] [place] [address] Result Comment: Resu lts checked and verified.No clot detected. Performed By: #### 5 7021-8 ####[facility] LABCLIA [id number] [place] [address] [place] RBC (Bld) [#/Vol] 3.57 10*6/uL Low 4.20-6.00 [facility] Comment on above: Order Comment: Speci men Type: BLOOD SPECIMENOrdering Facility: [facility] Address: [address] [place] [address] Performed By: #### 5 7021-8 ####[facility] LABCLIA [id number] [place] [address] [place] WBC (Bld) [#/Vol] 8.65 10*3/uL Normal 3.70-11.00 [facility] Comment on above: Order Comment: Speci men Type: BLOOD SPECIMENOrdering Facility: [facility] Address: [address] [place], [place] [address] Performed By: #### 5 7021-8 ####[facility] LABCLIA [id number] [place] [address] [place] CONSULTon 06-27-2023 CONSULT Normal [facility] CONSULT PROGon 06-27-2023 CONSULT PROG Normal [facility] CONSULT PROG Normal [facility] Creatinine Unsp time (U) [Ma ss/Vol]on 06-27-2023 Creatinine (U) [Mass/Vol] 190.5 mg/dL Normal 20.0-300.0 [facility] Comment on above: Order Comment: Speci men Type: URINE SPECIMENOrdering Facility: [facility] Address: [address] [place] [address] Performed By: #### 3 5674-1, 19556-0 ####[facility] LABCLIA [id number] [place] [address] [place] Fact Xa PPP-aCncon Coagulation factor X activated act Coag Qn (PPP) 0.52 IU/mL High <0.10 [facility] Comment on above: Order Comment: Speci men Type: BLOOD SPECIMENOrdering Facility: [facility] Address: [address] [place] [address] Result Comment: The recommended therapeutic range for treatment of venous and arterial thrombosis with intravenous unfractionated heparin is an anti Xa activity level of 0.3 to 0.7 IU/mL. In patients with concomitant therapy with thrombolytic agents and/or platelet glycoprotein IIb/IIIa antagonists, the recommended therapeutic range is an anti Xa activity level of 0.2 to 0.5 IU/mL. Performed By: #### 3 217-7, PTTAC ####[facility] LABIA [id number] [place] [address] [place] Magnesium SerPl-mCncon 06-27 Magnesium [Mass/Vol] 2.7 mg/dL High 1.7-2.3 [facility] Comment on above: Order Comment: Speci men Type: BLOOD SPECIMENOrdering Facility: [facility] Address: [address] [place] [address] Performed By: #### 1 9123-9, 2777-1, 23268-3 ####[facility] LABCLIA [id number] [place] [address] [place] Osmolality Uron 06-27-2023 Osmolality (U) [Osmolality] 723 mosm/kg Normal 50-1200 [facility] Comment on above: Order Comment: Speci men Type: URINE SPECIMENOrdering Facility: [facility] Address: [address] [place] [address] Performed By: #### 2 695-5 ####[facility] LABIA [id number] [place] [address] [place] PTT, ANTICOAGULANT THERAPYon 06-27-2023 aPTT Coag (PPP) [Time] 60.9 s High 23.0-32.4 [facility] Comment on above: Order Comment: Speci men Type: BLOOD SPECIMENOrdering Facility: [facility] Address: [address] [place] [address] Result Comment: Samp le checked for clot.Result rechecked. Performed By: #### 3 217-7, PTTAC ####[facility] LABIA [id number] [place] [address] [place] Phosphate SerPl-mCncon 06-27 Phosphate [Mass/Vol] 3.2 mg/dL Normal 2.7-4.8 [facility] Comment on above: Order Comment: Speci men Type: BLOOD SPECIMENOrdering Facility: [facility] Address: [address] [place] [address] Performed By: #### 1 9123-9, 2777-1, 91881-1 ####[facility] LABIA [id number] [place] [address] [place] STAPH AUREUS PCRon 3 S. aureus and MRSA panel ARINA+probe (Nose) Normal Negative [facility] Comment on above: Order Comment: Speci men Type: SWAB OF INTERNAL NOSEOrdering Facility: [facility] Address: [address] [place] [address] Result Comment: Nega tive for Staphylococcus aureus by PCR.Negative for MRSA by PCR Performed By: #### S APCR ####[facility] LABIA [id number] [place] [address] [place] Sodium ?Tm Ur-sCncon 023 Sodium Unsp time (U) [Moles/Vol] 38 mmol/L Normal 14-216 [facility] Comment on above: Order Comment: Speci men Type: URINE SPECIMENOrdering Facility: [facility] Address: [address] [place] [address] Performed By: #### 3 5674-1, 59788-6 ####[facility] LABIA [id number] [address] [facility] THERAPY NTon 06-27-2023 THERAPY NT Normal [facility] THERAPY NT Normal [facility] Tacrolimus Bld-mCncon 2022 Tacrolimus (Bld) [Mass/Vol] 11.2 ng/mL Normal 5.0-20.0 [facility] Comment on above: Order Comment: Speci men Type: BLOOD SPECIMENOrdering Facility: [facility] Address: [address] [place] [address] Result Comment: Nayely vidualized target levels for a given patient will depend on many factors (including the type of organ transplant, time since transplantation, concurrent medications, and other clinical factors), and should be assessed by those health care providers experienced in the management of immunosuppression. Reference ranges and high/low indicator flags are provided as general guidelines only. The treating physician must determine appropriate target levels/dosing based on the specific clinical situation. Test performed by chemiluminescent immunoassay using [employer] i. Performed By: #### 1 1253-2 ####[facility] [id number] [address] [place] aPTT PPPon 06-27-2023 aPTT Coag (PPP) [Time] 42.3 s High 23.0-32.4 [facility] Comment on above: Order Comment: Speci men Type: BLOOD SPECIMENOrdering Facility: [facility] Address: [address] [address] Performed By: #### 1 4979-9, APIXBN ####[facility] LABIA [id number] [place] [address] [place] aPTT Coag (PPP) [Time] 39.9 s High 23.0-32.4 [facility] Comment on above: Order Comment: Speci men Type: BLOOD SPECIMENOrdering Facility: [facility] Address: [address] [address] Performed By: #### 1 4979-9 ####[facility] [id number] [place] [address] [place] ARTERIAL BLOOD GASESon 06-26 Base excess Calc (Bld) [Moles/Vol] 0 mmol/L Normal 0-2 [facility] Comment on above: Order Comment: Speci men Type: ARTERIAL BLOOD SPECIMENOrdering Facility: [facility] Address: [address] [place] [address] Performed By: #### A LLBG ####[facility] LABIA [id number] [place] [address] [place] Body temperature 97.34 [degF] Normal [facility] Comment on above: Order Comment: Speci men Type: ARTERIAL BLOOD SPECIMENOrdering Facility: [facility] Address: [address] [place], [place] [address] Performed By: #### A LLBG ####[facility] LABIA [id number] [place] [address] [place] Calcium.ionized (Bld) [Mass/Vol] 1.34 mmol/L High 1.08-1.30 [facility] Comment on above: Order Comment: Speci men Type: ARTERIAL BLOOD SPECIMENOrdering Facility: [facility] Address: [address] [address] Performed By: #### A LLBG ####[facility] LABIA [id number] [place] [address] [place] Calcium.ionized adjusted to pH 7.4 (BldA) [Moles/Vol] 1.36 mmol/L High 1.08-1.30 [facility] Comment on above: Order Comment: Speci men Type: ARTERIAL BLOOD SPECIMENOrdering Facility: [facility] Address: [address] [place] [address] Performed By: #### A LLBG ####[facility] LABIA [id number] [place] [address] [place] Carboxyhemoglobin (BldA) [Mass fraction] 0.6 % Normal 0.0-2.0 [facility] Comment on above: Order Comment: Speci men Type: ARTERIAL BLOOD SPECIMENOrdering Facility: [facility] Address: [address] [place] [address] Result Comment: Carb oxyhemoglobin Reference Range for Smokers: 2.0-8.0% Performed By: #### A LLBG ####[facility] LABIA [id number] [place] [address] [place] CO2 (Bld) [Partial pressure] 37 mm Hg Normal 36-46 [facility] Comment on above: Order Comment: Speci men Type: ARTERIAL BLOOD SPECIMENOrdering Facility: [facility] Address: [address] Performed By: #### A LLBG ####[facility] LABIA [id number] [place] [address] [place] CO2 adjusted to patient's actual temperature (Bld) [Partial pressure] 36 mmHg Normal 36-46 [facility] Comment on above: Order Comment: Speci men Type: ARTERIAL BLOOD SPECIMENOrdering Facility: [facility] Address: [address] [place], [place] [address] Performed By: #### A LLBG ####[facility] LABIA [id number] [address] [place] FIO2 30 % Normal [facility] Comment on above: Order Comment: Speci men Type: ARTERIAL BLOOD SPECIMENOrdering Facility: [facility] Address: [address] Performed By: #### A LLBG ####[facility] LABCLIA [id number] [place] [address] [place] Glucose [Mass/Vol] 129 mg/dL High 60-105 [facility] Comment on above: Order Comment: Speci men Type: ARTERIAL BLOOD SPECIMENOrdering Facility: [facility] Address: [address] Performed By: #### A LLBG ####[facility] LABCLIA [id number] [place] [address] [place] HCO3 (Bld) [Moles/Vol] 24 mmol/L Normal 22-26 [facility] Comment on above: Order Comment: Speci men Type: ARTERIAL BLOOD SPECIMENOrdering Facility: [facility] Address: [address] Performed By: #### A LLBG ####[facility] LABCLIA [id number] [address] [place] Hematocrit (Bld) [Volume fraction] 37.0 % Low 39.0-51.0 [facility] Comment on above: Order Comment: Speci men Type: ARTERIAL BLOOD SPECIMENOrdering Facility: [facility] Address: [address] Performed By: #### A LLBG ####[facility] LABCLIA [id number] [place] [address] [place] Hemoglobin (Bld) [Mass/Vol] 12.0 g/dL Low 13.0-17.0 [facility] Comment on above: Order Comment: Speci men Type: ARTERIAL BLOOD SPECIMENOrdering Facility: [facility] Address: [address] Performed By: #### A LLBG ####[facility] LABCLIA [id number] [place] [address] [place] Lactate [Moles/Vol] 1.2 mmol/L Normal 0.5-2.2 [facility] Comment on above: Order Comment: Speci men Type: ARTERIAL BLOOD SPECIMENOrdering Facility: [facility] Address: [address] [place], [place] [address] Performed By: #### A LLBG ####[facility] LABCLIA [id number] [place] [address] [place] Methemoglobin (Bld) [Mass fraction] 1.0 % Normal 0.0-1.5 [facility] Comment on above: Order Comment: Speci men Type: ARTERIAL BLOOD SPECIMENOrdering Facility: [facility] Address: [address] [place], [place] [address] Performed By: #### A LLBG ####[facility] LABCLIA [id number] [address] [place] O2 THERAPY Ventilator Normal [facility] Comment on above: Order Comment: Speci men Type: ARTERIAL BLOOD SPECIMENOrdering Facility: [facility] Address: [address] [place] [address] Performed By: #### A LLBG ####[facility] LABCLIA [id number] [place] [address] [place] Oxygen (Bld) [Partial pressure] 370 mm Hg High 85-95 [facility] Comment on above: Order Comment: Speci men Type: ARTERIAL BLOOD SPECIMENOrdering Facility: [facility] Address: [address] [place] [address] Performed By: #### A LLBG ####[facility] LABCLIA [id number] [place] [address] [place] Oxygen adjusted to patient's actual temperature (Bld) [Partial pressure] 367 mmHg High 85-95 [facility] Comment on above: Order Comment: Speci men Type: ARTERIAL BLOOD SPECIMENOrdering Facility: [facility] Address: [address] Performed By: #### A LLBG ####[facility] LABCLIA [id number] [place] [address] [place] Oxyhemoglobin (BldA) [Mass fraction] 98 % Normal 95-98 [facility] Comment on above: Order Comment: Speci men Type: ARTERIAL BLOOD SPECIMENOrdering Facility: [facility] Address: [address] Performed By: #### A LLBG ####[facility] LABCLIA [id number] [place] [address] [place] pH (Bld) 7.42 [pH] Normal 7.35-7.45 [facility] Comment on above: Order Comment: Speci men Type: ARTERIAL BLOOD SPECIMENOrdering Facility: [facility] Address: [address] Performed By: #### A LLBG ####[facility] LABCLIA [id number] [place] [address] [place] pH adjusted to patient's actual temperature (Bld) 7.43 Normal 7.35-7.45 [facility] Comment on above: Order Comment: Speci men Type: ARTERIAL BLOOD SPECIMENOrdering Facility: [facility] Address: [address] [place] [address] Performed By: #### A LLBG ####[facility] LABCLIA [id number] [place] [address] [place] PO2 / FIO2 RATIO 1233 mmHg Normal >300 [facility] Comment on above: Order Comment: Speci men Type: ARTERIAL BLOOD SPECIMENOrdering Facility: [facility] Address: [address] Performed By: #### A LLBG ####[facility] LABCLIA [id number] [place] [address] [place] Potassium [Moles/Vol] 4.3 mmol/L Normal 3.5-5.0 [facility] Comment on above: Order Comment: Speci men Type: ARTERIAL BLOOD SPECIMENOrdering Facility: [facility] Address: [address] [place] [address] Performed By: #### A LLBG ####[facility] LABCLIA [id number] [place] [address] [place] Sodium [Moles/Vol] 139 mmol/L Normal 136-144 [facility] Comment on above: Order Comment: Speci men Type: ARTERIAL BLOOD SPECIMENOrdering Facility: [facility] Address: [address] [place] [address] Performed By: #### A LLBG ####[facility] LABCLIA [id number] [place] [address] [place] Bacteria Bld Culton 06-26-20 Bacteria identified Cx Nom (Bld) CULTURE, BLOOD: No growth 5 days Normal [facility] Comment on above: Performed By: #### 6 00-7 ####[facility] LABCLIA [id number] [place] [address] [place] Bacteria identified Cx Nom (Bld) CULTURE, BLOOD: No growth 5 days Normal [facility] Comment on above: Performed By: #### 6 00-7 ####[facility] LABCLIA [id number] [place] [address] [place] Bacteria Spec Resp Culton Bacteria identified Respiratory culture Nom (Unsp spec) ORGANISM ID: 1 Few normal respiratory elise GRAM STAIN: Rare Mixed oral elise No Polymorphonuclear Leukocytes Abnormal [facility] Comment on above: Performed By: #### 3 2355-0 ####[facility] LABCLIA [id number] [place] [address] [place] CBC W Auto Differential pane l (Bld)on 06-26-2023 Basophils (Bld) [#/Vol] 0.03 10*3/uL Normal <0.11 [facility] Comment on above: Order Comment: Speci men Type: BLOOD SPECIMENOrdering Facility: [facility] Address: [address] [place] [address] Performed By: #### 5 7021-8 ####[facility] LABCLIA [id number] [place] [address] [place] Basophils/100 WBC (Bld) 0.2 % Normal [facility] Comment on above: Order Comment: Speci men Type: BLOOD SPECIMENOrdering Facility: [facility] Address: [address] [place] [address] Performed By: #### 5 7021-8 ####[facility] LABCLIA [id number] [address] [place] Differential cell count method Nom (Bld) Auto Normal [facility] Comment on above: Order Comment: Speci men Type: BLOOD SPECIMENOrdering Facility: [facility] Address: [address] [place] [address] Performed By: #### 5 7021-8 ####[facility] LABCLIA [id number] [place] [address] [place] Eosinophils (Bld) [#/Vol] 0.03 10*3/uL Normal <0.46 [facility] Comment on above: Order Comment: Speci men Type: BLOOD SPECIMENOrdering Facility: [facility] Address: [address] [place], [place] [address] Performed By: #### 5 7021-8 ####[facility] LABCLIA [id number] [address] [place] Eosinophils/100 WBC (Bld) 0.2 % Normal [facility] Comment on above: Order Comment: Speci men Type: BLOOD SPECIMENOrdering Facility: [facility] Address: [address] [place] [address] Performed By: #### 5 7021-8 ####[facility] LABIA [id number] [place] [address] [place] Erythrocyte distribution width (RBC) [Ratio] 12.9 % Normal 11.5-15.0 [facility] Comment on above: Order Comment: Speci men Type: BLOOD SPECIMENOrdering Facility: [facility] Address: [address] [place] [address] Performed By: #### 5 7021-8 ####[facility] LABIA [id number] [place] [address] [place] Hematocrit (Bld) [Volume fraction] 35.6 % Low 39.0-51.0 [facility] Comment on above: Order Comment: Speci men Type: BLOOD SPECIMENOrdering Facility: [facility] Address: [address] Performed By: #### 5 7021-8 ####[facility] LABIA [id number] [place] [address] [place] Hemoglobin (Bld) [Mass/Vol] 11.8 g/dL Low 13.0-17.0 [facility] Comment on above: Order Comment: Speci men Type: BLOOD SPECIMENOrdering Facility: [facility] Address: [address] [place], [place] [address] Performed By: #### 5 7021-8 ####[facility] LABIA [id number] [place] [address] [place] Immature granulocytes (Bld) [#/Vol] 0.09 10*3/uL Normal <0.10 [facility] Comment on above: Order Comment: Speci men Type: BLOOD SPECIMENOrdering Facility: [facility] Address: [address] [place], [place] [address] Performed By: #### 5 7021-8 ####[facility] LABCLIA [id number] [address] [place] [facility] Immature granulocytes/100 WBC (Bld) 0.7 % Normal [facility] Comment on above: Order Comment: Speci men Type: BLOOD SPECIMENOrdering Facility: [facility] Address: [address] [place] [address] Performed By: #### 5 7021-8 ####[facility] LABIA [id number] [place] [address] [place] Lymphocytes (Bld) [#/Vol] 1.82 10*3/uL Normal 1.00-4.00 [facility] Comment on above: Order Comment: Speci men Type: BLOOD SPECIMENOrdering Facility: [facility] Address: [address] [place] [address] Performed By: #### 5 7021-8 ####[facility] LABIA [id number] [address] [place] [facility] Lymphocytes/100 WBC (Bld) 13.6 % Normal [facility] Comment on above: Order Comment: Speci men Type: BLOOD SPECIMENOrdering Facility: [facility] Address: [address] [place], [place] [address] Performed By: #### 5 7021-8 ####[facility] LABIA [id number] [place] [address] [place] MCH (RBC) [Entitic mass] 30.5 pg Normal 26.0-34.0 [facility] Comment on above: Order Comment: Speci men Type: BLOOD SPECIMENOrdering Facility: [facility] Address: [address] [place], [place] [address] Performed By: #### 5 7021-8 ####[facility] LABIA [id number] [place] [address] [place] MCHC (RBC) [Mass/Vol] 33.1 g/dL Normal 30.5-36.0 [facility] Comment on above: Order Comment: Speci men Type: BLOOD SPECIMENOrdering Facility: [facility] Address: [address] [place], [place] [address] Performed By: #### 5 7021-8 ####[facility] LABIA [id number] [place] [address] [place] MCV (RBC) [Entitic vol] 92.0 fL Normal 80.0-100.0 [facility] Comment on above: Order Comment: Speci men Type: BLOOD SPECIMENOrdering Facility: [facility] Address: [address] [place], [place] [address] Performed By: #### 5 7021-8 ####[facility] LABIA [id number] [place] [address] [place] Monocytes (Bld) [#/Vol] 1.17 10*3/uL High <0.87 [facility] Comment on above: Order Comment: Speci men Type: BLOOD SPECIMENOrdering Facility: [facility] Address: [address] [place], [place] [address] Performed By: #### 5 7021-8 ####[facility] LABIA [id number] [place] [address] [place] Monocytes/100 WBC (Bld) 8.7 % Normal [facility] Comment on above: Order Comment: Speci men Type: BLOOD SPECIMENOrdering Facility: [facility] Address: [address] [place], [place] [address] Performed By: #### 5 7021-8 ####[facility] LABIA [id number] [place] [address] [place] Neutrophils (Bld) [#/Vol] 10.27 10*3/uL High 1.45-7.50 [facility] Comment on above: Order Comment: Speci men Type: BLOOD SPECIMENOrdering Facility: [facility] Address: [address] Performed By: #### 5 7021-8 ####[facility] LABCLIA [id number] [address] [place] Neutrophils/100 WBC (Bld) 76.6 % Normal [facility] Comment on above: Order Comment: Speci men Type: BLOOD SPECIMENOrdering Facility: [facility] Address: [address] Performed By: #### 5 7021-8 ####[facility] LABCLIA [id number] [place] [address] [place] Nucleated RBC (Bld) [#/Vol] 10*3/uL Normal <0.01 [facility] Comment on above: Order Comment: Speci men Type: BLOOD SPECIMENOrdering Facility: [facility] Address: [address] [place], [place] [address] Performed By: #### 5 7021-8 ####[facility] LABIA [id number] [place] [address] [place] Nucleated RBC/100 WBC (Bld) [Ratio] 0.0 /100 WBC Normal [facility] Comment on above: Order Comment: Speci men Type: BLOOD SPECIMENOrdering Facility: [facility] Address: [address] [place], [place] [address] Performed By: #### 5 7021-8 ####[facility] LABCLIA [id number] [place] [address] [place] Platelet mean volume (Bld) [Entitic vol] 9.4 fL Normal 9.0-12.7 [facility] Comment on above: Order Comment: Speci men Type: BLOOD SPECIMENOrdering Facility: [facility] Address: [address] [place], [place] [address] Performed By: #### 5 7021-8 ####[facility] LABIA [id number] [place] [address] [place] Platelets (Bld) [#/Vol] 164 10*3/uL Normal 150-400 [facility] Comment on above: Order Comment: Speci men Type: BLOOD SPECIMENOrdering Facility: [facility] Address: [address] [place] [address] Result Comment: No c lot detected. Performed By: #### 5 7021-8 ####[facility] LABCLIA [id number] [place] [address] [place] RBC (Bld) [#/Vol] 3.87 10*6/uL Low 4.20-6.00 [facility] Comment on above: Order Comment: Speci men Type: BLOOD SPECIMENOrdering Facility: [facility] Address: [address] [place] [address] Performed By: #### 5 7021-8 ####[facility] LABCLIA [id number] [place] [address] [place] WBC (Bld) [#/Vol] 13.41 10*3/uL High 3.70-11.00 [facility] Comment on above: Order Comment: Speci men Type: BLOOD SPECIMENOrdering Facility: [facility] Address: [address] [place] [address] Performed By: #### 5 7021-8 ####[facility] LABIA [id number] [place] [address] [place] CONSULTon 06-26-2023 CONSULT HNO ID: [id number] Author: Gregory Carrasquillo DO Service: Vascular Medicine Author Type: Physician Type: Consults Filed: 06/26/2023 1:48 PM Note Text: Please see note by Dr. Chaudhary and co-signed by Dr. Carrasquillo from today at 09:08. Normal [facility] CONSULT Normal [facility] CONSULT PROGon 06-26-2023 CONSULT PROG Normal [facility] CT BRAIN WO IVCONon 09-17-[address] BRAIN WO IVCON Normal [facility] Comprehensive metabolic 2000 panelon 06-26-2023 Albumin [Mass/Vol] 3.3 g/dL Low 3.9-4.9 [facility] Comment on above: Order Comment: Speci men Type: BLOOD SPECIMENOrdering Facility: [facility] Address: [address] [place], [place] [address] Performed By: #### 2 777-1, 41476-3, ####[facility] LABCLIA [id number] [place] [address] [place] ALP [Catalytic activity/Vol] 96 U/L Normal 38-113 [facility] Comment on above: Order Comment: Speci men Type: BLOOD SPECIMENOrdering Facility: [facility] Address: [address] [place] [address] Performed By: #### 2 777-1, 60068-3, ####[facility] LABCLIA [id number] [place] [address] [place] ALT [Catalytic activity/Vol] 14 U/L Normal 10-54 [facility] Comment on above: Order Comment: Speci men Type: BLOOD SPECIMENOrdering Facility: [facility] Address: [address] [place], [place] [address] Performed By: #### 2 777-1, 77375-1, ####[facility] LABCLIA [id number] [place] [address] [place] Anion gap [Moles/Vol] 12 mmol/L Normal 9-18 [facility] Comment on above: Order Comment: Speci men Type: BLOOD SPECIMENOrdering Facility: [facility] Address: [address] [place], [place] [address] Performed By: #### 2 777-1, 36347-9, ####[facility] LABCLIA [id number] [place] [id number] [place] AST [Catalytic activity/Vol] 11 U/L Low 14-40 [facility] Comment on above: Order Comment: Speci men Type: BLOOD SPECIMENOrdering Facility: [facility] Address: [address] [place] [address] Performed By: #### 2 777-1, 60823-2, ####[facility] LABCLIA [id number] [place] [address] [place] Bilirubin [Mass/Vol] 0.4 mg/dL Normal 0.2-1.3 [facility] Comment on above: Order Comment: Speci men Type: BLOOD SPECIMENOrdering Facility: [facility] Address: [address] [place] [address] Performed By: #### 2 777-1, 75312-3, ####[facility] LABCLIA [id number] [place] [address] [place] Calcium [Mass/Vol] 9.9 mg/dL Normal 8.5-10.2 [facility] Comment on above: Order Comment: Speci men Type: BLOOD SPECIMENOrdering Facility: [facility] Address: [address] [place] [address] Performed By: #### 2 777-1, 16953-7, ####[facility] LABCLIA [id number] [place] [address] [place] Chloride [Moles/Vol] 105 mmol/L Normal 97-105 [facility] Comment on above: Order Comment: Speci men Type: BLOOD SPECIMENOrdering Facility: [facility] Address: [address] [place] [address] Performed By: #### 2 777-1, 55877-4, ####[facility] LABCLIA [id number] [address] [address] [place] CO2 [Moles/Vol] 23 mmol/L Normal 22-30 [facility] Comment on above: Order Comment: Speci men Type: BLOOD SPECIMENOrdering Facility: [facility] Address: [address] [address] Performed By: #### 2 777-1, , ####[facility] LABCLIA [id number] [facility] [place] [address] [place] Creatinine [Mass/Vol] 2.27 mg/dL High 0.73-1.22 [facility] Comment on above: Order Comment: Speci men Type: BLOOD SPECIMENOrdering Facility: [facility] Address: [address] [address] Performed By: #### 2 777-1, , ####[facility] LABCLIA [id number] [place] [address] [place] Creatinine and Glomerular filtration rate.predicted panel (S/P/Bld) 33 mL/min/1.73m??? Low >=60 [facility] Comment on above: Order Comment: Iesha marin Type: BLOOD SPECIMENOrdering Facility: [facility] Address: [address] [place] [address] Result Comment: Dayan mated Glomerular Filtration Rate (eGFR) is calculated using the 2020 CKD-EPI creatinine equation. This equation utilizes serum creatinine, sex, and age as parameters. The creatinine assay has traceable calibration to isotope dilution-mass spectrometry. Refer to KDIGO guidelines for clinical interpretation. In patients with unstable renal function, e.g. those with acute kidney injury, the eGFR may not accurately reflect actual GFR. Performed By: #### 2 777-1, , ####[facility] LABCLIA [id number] [place] [address] [place] Glucose [Mass/Vol] 132 mg/dL High 74-99 [facility] Comment on above: Order Comment: Speci men Type: BLOOD SPECIMENOrdering Facility: [facility] Address: [address] [place] [address] [place] [address] Result Comment: The [place] Diabetes Association (ADA) provides guidance for cutoff values for fasting glucose and random glucose. The ADA defines fasting as no caloric intake for at least 8 hours. Fasting plasma glucose results between 100 to 125 mg/dL indicate increased risk for diabetes (prediabetes).Fasting plasma glucose results greater than or equal to 126 mg/dL meet the criteria for diagnosis of diabetes. In the absence of unequivocal hyperglycemia, results should be confirmed by repeat testing. In a patient with classic symptoms of hyperglycemia or hyperglycemic crisis, random plasma glucose results greater than or equal to 200 mg/dL meet the criteria for diagnosis of diabetes.Reference: Standards of Medical Care in Diabetes 2016, [place] [employer] Association. Diabetes Care. 2016.39(Suppl 1). Performed By: #### 2 777-1, , ####[facility] LABCLIA [id number] [place] [address] [place] Potassium [Moles/Vol] 4.2 mmol/L Normal 3.7-5.1 [facility] Comment on above: Order Comment: Speci men Type: BLOOD SPECIMENOrdering Facility: [facility] Address: [address] [place] [id number] Performed By: #### 2 777-1, , ####[facility] LABCLIA [id number] [place] [address] [place] Protein [Mass/Vol] 6.6 g/dL Normal 6.3-8.0 [facility] Comment on above: Order Comment: Speci men Type: BLOOD SPECIMENOrdering Facility: [facility] Address: [address] [place] [address] Performed By: #### 2 777-1, , ####[facility] LABCLIA [id number] [facility] [place] [id number] [place] Sodium [Moles/Vol] 140 mmol/L Normal 136-144 [facility] Comment on above: Order Comment: Speci men Type: BLOOD SPECIMENOrdering Facility: [facility] Address: [address] [place], [place] [address] Performed By: #### 2 777-1, 35719-6, ####[facility] LABCLIA [id number] [place] [address] [place] Urea nitrogen [Mass/Vol] 43 mg/dL High 9-24 [facility] Comment on above: Order Comment: Speci men Type: BLOOD SPECIMENOrdering Facility: [facility] Address: [address] [place] [address] Performed By: #### 2 777-1, 34809-3, ####[facility] LABCLIA [id number] [place] [address] [place] [id number] 06-26-2023 ECG01 Normal [facility] Gas and Carbon monoxide pane l (BldV)on 06-26-2023 Base excess Calc (BldV) [Moles/Vol] 0 mmol/L Normal 0-2 [facility] Comment on above: Order Comment: Speci men Type: VENOUS BLOOD SPECIMENOrdering Facility: [facility] Address: [address] [place] [address] Performed By: #### 2 4344-4 ####[facility] LABIA [id number] [place] [address] [place] Body temperature 98.6 [degF] Normal [facility] Comment on above: Order Comment: Speci men Type: VENOUS BLOOD SPECIMENOrdering Facility: [facility] Address: [address] Performed By: #### 2 4344-4 ####[facility] LABCLIA [id number] [place] [address] [place] Calcium.ionized (Bld) [Mass/Vol] 1.36 mmol/L High 1.08-1.30 [facility] Comment on above: Order Comment: Speci men Type: VENOUS BLOOD SPECIMENOrdering Facility: [facility] Address: [address] Performed By: #### 2 4344-4 ####[facility] LABCLIA [id number] [place] [address] [place] Calcium.ionized adjusted to pH 7.4 (BldA) [Moles/Vol] 1.36 mmol/L High 1.08-1.30 [facility] Comment on above: Order Comment: Speci men Type: VENOUS BLOOD SPECIMENOrdering Facility: [facility] Address: [address] Performed By: #### 2 4344-4 ####[facility] LABIA [id number] [place] [address] [place] Carboxyhemoglobin (BldV) [Mass fraction] 1.3 % Normal 0.0-2.0 [facility] Comment on above: Order Comment: Speci men Type: VENOUS BLOOD SPECIMENOrdering Facility: [facility] Address: [address] [place] [address] Result Comment: Carb oxyhemoglobin Reference Range for Smokers: 2.0-8.0% Performed By: #### 2 4344-4 ####[facility] LABIA [id number] [place] [address] [place] CO2 (BldV) [Partial pressure] 41 mm[Hg] Low 42-55 [facility] Comment on above: Order Comment: Speci men Type: VENOUS BLOOD SPECIMENOrdering Facility: [facility] Address: [address] [place] [address] Performed By: #### 2 4344-4 ####[facility] LABIA [id number] [place] [address] [place] FIO2 30 % Normal [facility] Comment on above: Order Comment: Speci men Type: VENOUS BLOOD SPECIMENOrdering Facility: [facility] Address: [address] [place] [address] Performed By: #### 2 4344-4 ####[facility] LABCLIA [id number] [place] [address] [place] Glucose [Mass/Vol] 139 mg/dL High 60-105 [facility] Comment on above: Order Comment: Speci men Type: VENOUS BLOOD SPECIMENOrdering Facility: [facility] Address: [address] Performed By: #### 2 4344-4 ####[facility] LABCLIA [id number] [place] [address] [place] HCO3 (Bld) [Moles/Vol] 24 mmol/L Normal 24-28 [facility] Comment on above: Order Comment: Speci men Type: VENOUS BLOOD SPECIMENOrdering Facility: [facility] Address: [address] Performed By: #### 2 4344-4 ####[facility] LABCLIA [id number] [place] [address] [place] Hematocrit (Bld) [Volume fraction] 36.2 % Low 39.0-51.0 [facility] Comment on above: Order Comment: Speci men Type: VENOUS BLOOD SPECIMENOrdering Facility: [facility] Address: [address] Performed By: #### 2 4344-4 ####[facility] LABCLIA [id number] [place] [address] [place] Hemoglobin (Bld) [Mass/Vol] 11.7 g/dL Low 13.0-17.0 [facility] Comment on above: Order Comment: Speci men Type: VENOUS BLOOD SPECIMENOrdering Facility: [facility] Address: [address] Performed By: #### 2 4344-4 ####[facility] LABCLIA [id number] [address] [place] Lactate [Moles/Vol] 1.1 mmol/L Normal 0.5-2.2 [facility] Comment on above: Order Comment: Speci men Type: VENOUS BLOOD SPECIMENOrdering Facility: [facility] Address: [address] [place] [address] Performed By: #### 2 4344-4 ####[facility] LABCLIA [id number] [place] [address] [place] Methemoglobin (Bld) [Mass fraction] 0.7 % Normal 0.0-1.5 [facility] Comment on above: Order Comment: Speci men Type: VENOUS BLOOD SPECIMENOrdering Facility: [facility] Address: [address] [place] [address] Performed By: #### 2 4344-4 ####[facility] LABCLIA [id number] [place] [address] [place] O2 THERAPY Ventilator Normal [facility] Comment on above: Order Comment: Speci men Type: VENOUS BLOOD SPECIMENOrdering Facility: [facility] Address: [address] [place], [place] [address] Performed By: #### 2 4344-4 ####[facility] LABCLIA [id number] [address] [place] Oxygen (BldV) [Partial pressure] 46 mm[Hg] High 35-45 [facility] Comment on above: Order Comment: Speci men Type: VENOUS BLOOD SPECIMENOrdering Facility: [facility] Address: [address] Performed By: #### 2 4344-4 ####[facility] LABCLIA [id number] [address] [place] Oxygen saturation in Venous blood 77 % Normal 60-85 [facility] Comment on above: Order Comment: Speci men Type: VENOUS BLOOD SPECIMENOrdering Facility: [facility] Address: [address] Performed By: #### 2 4344-4 ####[facility] [id number] [place] [address] [place] Oxyhemoglobin (BldV) [Mass fraction] 75 % Normal 60-85 [facility] Comment on above: Order Comment: Speci men Type: VENOUS BLOOD SPECIMENOrdering Facility: [facility] Address: [address] Performed By: #### 2 4344-4 ####[facility] [id number] [place] [address] [place] pH (BldV) 7.39 [pH] Normal 7.32-7.42 [facility] Comment on above: Order Comment: Speci men Type: VENOUS BLOOD SPECIMENOrdering Facility: [facility] Address: [address] Performed By: #### 2 4344-4 ####[facility]IA [id number] [place] [address] [place] Potassium [Moles/Vol] 4.1 mmol/L Normal 3.5-5.0 [facility] Comment on above: Order Comment: Speci men Type: VENOUS BLOOD SPECIMENOrdering Facility: [facility] Address: [address] Performed By: #### 2 4344-4 ####[facility]IA [id number] [place] [address] [place] Sodium [Moles/Vol] 140 mmol/L Normal 136-144 [facility] Comment on above: Order Comment: Speci men Type: VENOUS BLOOD SPECIMENOrdering Facility: [facility] Address: [address] Performed By: #### 2 4344-4 ####[facility]IA [id number] [place] [address] [place] HISTORY PHYSICALon HISTORY PHYSICAL Normal [facility] MEDICAL EMERon 06-26-2023 MEDICAL ANGELIA Normal [facility] Magnesium SerPl-mCncon 06-26 Magnesium [Mass/Vol] 2.9 mg/dL High 1.7-2.3 [facility] Comment on above: Order Comment: Speci men Type: BLOOD SPECIMENOrdering Facility: [facility] Address: [address] [place] [address] Performed By: #### 2 777-1, 70629-5, ####[facility] LABCLIA [id number] [place] [address] [place] NURSING PROGon 06-26-2023 NURSING PROG Normal [facility] NURSING PROG Normal [facility] Phosphate SerPl-mCncon 06-26 Phosphate [Mass/Vol] 2.6 mg/dL Low 2.7-4.8 [facility] Comment on above: Order Comment: Speci men Type: BLOOD SPECIMENOrdering Facility: [facility] Address: [address] [place] [address] Performed By: #### 2 777-1, 12364-8, ####[facility] LABCLIA [id number] [place] [address] [place] SARS-CoV-2 RNA Resp Ql ARINA+p robeon 06-26-2023 SARS-CoV-2 (COVID-19) RNA ARINA+probe Ql (Resp) COVID 19 RESULT: Not detected The method used is RT-PCR or an equivalent NAAT method. Reference Range (the expected result in uninfected individuals): Not detected Normal [facility] Comment on above: Performed By: #### 9 4500-6 ####[facility] LABCLIA [id number] [place] [address] [place] THERAPY NTon 06-26-2023 THERAPY NT Normal [facility] Tacrolimus Bld-mCncon 2022 Tacrolimus (Bld) [Mass/Vol] 16.5 ng/mL Normal 5.0-20.0 [facility] Comment on above: Order Comment: Iesha marin Type: BLOOD SPECIMENOrdering Facility: [facility] Address: [address] [place] [address] Result Comment: Nayely vidualized target levels for a given patient will depend on many factors (including the type of organ transplant, time since transplantation, concurrent medications, and other clinical factors), and should be assessed by those health care providers experienced in the management of immunosuppression. Reference ranges and high/low indicator flags are provided as general guidelines only. The treating physician must determine appropriate target levels/dosing based on the specific clinical situation. Test performed by chemiluminescent immunoassay using Cumulux Alinity i. Performed By: #### 1 1253-2 ####[facility] LABCLIA [id number] [place] [address] [place] XR CHEST 1V FRONTALon 2022 XR CHEST 1V FRONTAL Normal [facility] XR CHEST 1V FRONTAL PORTon 0 06-26-2023 XR CHEST 1V FRONTAL PORT Normal [facility] XR CHEST 1V FRONTAL PORT Normal [facility] aPTT PPPon 06-26-2023 aPTT Coag (PPP) [Time] 28.5 s Normal 23.0-32.4 [facility] Comment on above: Order Comment: Iesha marin Type: BLOOD SPECIMENOrdering Facility: [facility] Address: [address] [place] [address] Performed By: #### 1 4979-9 ####[facility] LABIA [id number] [address] [place] ARTERIAL BLOOD GASESon 06-25 Base excess Calc (Bld) [Moles/Vol] 0 mmol/L Normal 0-2 [facility] Comment on above: Order Comment: Iesha marin Type: ARTERIAL BLOOD SPECIMENOrdering Facility: [facility] Address: [address] [place] [address] Performed By: #### A LLBG ####[facility] LABCLIA [id number] [place] [address] [place] Body temperature 98.96 [degF] Normal [facility] Comment on above: Order Comment: Speci men Type: ARTERIAL BLOOD SPECIMENOrdering Facility: [facility] Address: [address] [place] [address] Performed By: #### A LLBG ####[facility] LABCLIA [id number] [place] [address] [place] Calcium.ionized (Bld) [Mass/Vol] 1.27 mmol/L Normal 1.08-1.30 [facility] Comment on above: Order Comment: Speci men Type: ARTERIAL BLOOD SPECIMENOrdering Facility: [facility] Address: [address] [place] [address] Performed By: #### A LLBG ####[facility] LABCLIA [id number] [place] [address] [place] Calcium.ionized adjusted to pH 7.4 (BldA) [Moles/Vol] 1.29 mmol/L Normal 1.08-1.30 [facility] Comment on above: Order Comment: Speci men Type: ARTERIAL BLOOD SPECIMENOrdering Facility: [facility] Address: [address] [place] [address] Performed By: #### A LLBG ####[facility]IA [id number] [place] [address] [place] Carboxyhemoglobin (BldA) [Mass fraction] 1.1 % Normal 0.0-2.0 [facility] Comment on above: Order Comment: Speci men Type: ARTERIAL BLOOD SPECIMENOrdering Facility: [facility] Address: [address] [place] [address] Result Comment: Carb oxyhemoglobin Reference Range for Smokers: 2.0-8.0% Performed By: #### A LLBG ####[facility] LABCLIA [id number] [place] [address] [place] CO2 (Bld) [Partial pressure] 38 mm Hg Normal 36-46 [facility] Comment on above: Order Comment: Speci men Type: ARTERIAL BLOOD SPECIMENOrdering Facility: [facility] Address: [address] [place] [address] Performed By: #### A LLBG ####[facility] LABCLIA [id number] [place] [address] [place] CO2 adjusted to patient's actual temperature (Bld) [Partial pressure] 38 mmHg Normal 36-46 [facility] Comment on above: Order Comment: Speci men Type: ARTERIAL BLOOD SPECIMENOrdering Facility: [facility] Address: [address] [place] [address] Performed By: #### A LLBG ####[facility] LABCLIA [id number] [place] [address] [place] Glucose [Mass/Vol] 140 mg/dL High 60-105 [facility] Comment on above: Order Comment: Speci men Type: ARTERIAL BLOOD SPECIMENOrdering Facility: [facility] Address: [address] [place] [address] Performed By: #### A LLBG ####[facility] LABCLIA [id number] [place] [address] [place] HCO3 (Bld) [Moles/Vol] 24 mmol/L Normal 22-26 [facility] Comment on above: Order Comment: Speci men Type: ARTERIAL BLOOD SPECIMENOrdering Facility: [facility] Address: [address] [place], [place] [address] Performed By: #### A LLBG ####[facility] LABCLIA [id number] [place] [address] [place] Hematocrit (Bld) [Volume fraction] 37.2 % Low 39.0-51.0 [facility] Comment on above: Order Comment: Speci men Type: ARTERIAL BLOOD SPECIMENOrdering Facility: [facility] Address: [address] Performed By: #### A LLBG ####[facility] LABCLIA [id number] [place] [address] [place] Hemoglobin (Bld) [Mass/Vol] 12.1 g/dL Low 13.0-17.0 [facility] Comment on above: Order Comment: Speci men Type: ARTERIAL BLOOD SPECIMENOrdering Facility: [facility] Address: [address] [place], [place] [address] Performed By: #### A LLBG ####[facility] LABCLIA [id number] [place] [address] [place] Lactate [Moles/Vol] 1.3 mmol/L Normal 0.5-2.2 [facility] Comment on above: Order Comment: Speci men Type: ARTERIAL BLOOD SPECIMENOrdering Facility: [facility] Address: [address] [place], [place] [address] Performed By: #### A LLBG ####[facility] LABCLIA [id number] [place] [address] [place] LITERS 2 Liters/min Normal [facility] Comment on above: Order Comment: Speci men Type: ARTERIAL BLOOD SPECIMENOrdering Facility: [facility] Address: [address] [place], [place] [address] Performed By: #### A LLBG ####[facility] LABCLIA [id number] [place] [address] [place] Methemoglobin (Bld) [Mass fraction] 0.5 % Normal 0.0-1.5 [facility] Comment on above: Order Comment: Speci men Type: ARTERIAL BLOOD SPECIMENOrdering Facility: [facility] Address: [address] Performed By: #### A LLBG ####[facility] LABCLIA [id number] [address] [place] O2 THERAPY NC = Nasal Cannula Normal [facility] Comment on above: Order Comment: Speci men Type: ARTERIAL BLOOD SPECIMENOrdering Facility: [facility] Address: [address] [place] [address] Performed By: #### A LLBG ####[facility] LABCLIA [id number] [place] [address] [place] Oxygen (Bld) [Partial pressure] 104 mm Hg High 85-95 [facility] Comment on above: Order Comment: Speci men Type: ARTERIAL BLOOD SPECIMENOrdering Facility: [facility] Address: [address] [place], [place] [address] Performed By: #### A LLBG ####[facility]IA [id number] [address] [place] Oxygen adjusted to patient's actual temperature (Bld) [Partial pressure] 105 mmHg High 85-95 [facility] Comment on above: Order Comment: Speci men Type: ARTERIAL BLOOD SPECIMENOrdering Facility: [facility] Address: [address] [place], [place] [address] Performed By: #### A LLBG ####[facility] LABCLIA [id number] [place] [address] [place] Oxyhemoglobin (BldA) [Mass fraction] 97 % Normal 95-98 [facility] Comment on above: Order Comment: Speci men Type: ARTERIAL BLOOD SPECIMENOrdering Facility: [facility] Address: [address] [place], [place] [address] Performed By: #### A LLBG ####[facility]CLIA [id number] [place] [address] [place] pH (Bld) 7.42 [pH] Normal 7.35-7.45 [facility] Comment on above: Order Comment: Speci men Type: ARTERIAL BLOOD SPECIMENOrdering Facility: [facility] Address: [address] [place] [place] [address] Performed By: #### A LLBG ####[facility]IA [id number] [place] [address] [place] pH adjusted to patient's actual temperature (Bld) 7.42 Normal 7.35-7.45 [facility] Comment on above: Order Comment: Speci men Type: ARTERIAL BLOOD SPECIMENOrdering Facility: [facility] Address: [address] [place] [address] Performed By: #### A LLBG ####[facility]IA [id number] [place] [address] [place] Potassium [Moles/Vol] 4.1 mmol/L Normal 3.5-5.0 [facility] Comment on above: Order Comment: Speci men Type: ARTERIAL BLOOD SPECIMENOrdering Facility: [facility] Address: [address] [place] [address] Performed By: #### A LLBG ####[facility]IA [id number] [place] [address] [place] Sodium [Moles/Vol] 138 mmol/L Normal 136-144 [facility] Comment on above: Order Comment: Speci men Type: ARTERIAL BLOOD SPECIMENOrdering Facility: [facility] Address: [address] [place] [address] Performed By: #### A LLBG ####[facility]IA [id number] [place] [address] [place] Bacteria Ur Culton 3 Bacteria identified Cx Nom (U) Abnormal [facility] Comment on above: Performed By: #### 6 30-4 ####[facility] [id number] [place] [address] [place] CBC W Auto Differential pane l (Bld)on 06-25-2023 Basophils (Bld) [#/Vol] 0.05 10*3/uL Normal <0.11 [facility] Comment on above: Order Comment: Speci men Type: BLOOD SPECIMENOrdering Facility: [facility] Address: [address] Performed By: #### 5 7021-8 ####[facility] LABCLIA [id number] [place] [address] [place] Basophils/100 WBC (Bld) 0.4 % Normal [facility] Comment on above: Order Comment: Speci men Type: BLOOD SPECIMENOrdering Facility: [facility] Address: [address] [place] [address] Performed By: #### 5 7021-8 ####[facility] LABCLIA [id number] [place] [address] [place] Differential cell count method Nom (Bld) Auto Normal [facility] Comment on above: Order Comment: Speci men Type: BLOOD SPECIMENOrdering Facility: [facility] Address: [address] Performed By: #### 5 7021-8 ####[facility]CLIA [id number] [place] [address] [place] Eosinophils (Bld) [#/Vol] 10*3/uL Normal <0.46 [facility] Comment on above: Order Comment: Speci men Type: BLOOD SPECIMENOrdering Facility: [facility] Address: [address] Performed By: #### 5 7021-8 ####[facility]CLIA [id number] [address] [place] Eosinophils/100 WBC (Bld) 0.1 % Normal [facility] Comment on above: Order Comment: Speci men Type: BLOOD SPECIMENOrdering Facility: [facility] Address: [address] [place], [place] [address] Performed By: #### 5 7021-8 ####[facility]CLIA [id number] [place] [address] [place] Erythrocyte distribution width (RBC) [Ratio] 12.8 % Normal 11.5-15.0 [facility] Comment on above: Order Comment: Speci men Type: BLOOD SPECIMENOrdering Facility: [facility] Address: [address] [place] [address] Performed By: #### 5 7021-8 ####[facility] [id number] [place] [address] [place] Hematocrit (Bld) [Volume fraction] 33.8 % Low 39.0-51.0 [facility] Comment on above: Order Comment: Speci men Type: BLOOD SPECIMENOrdering Facility: [facility] Address: [address] [place] [address] Performed By: #### 5 7021-8 ####[facility] [id number] [place] [address] [place] Hemoglobin (Bld) [Mass/Vol] 11.2 g/dL Low 13.0-17.0 [facility] Comment on above: Order Comment: Speci men Type: BLOOD SPECIMENOrdering Facility: [facility] Address: [address] [place] [address] Performed By: #### 5 7021-8 ####[facility]IA [id number] [place] [address] [place] Immature granulocytes (Bld) [#/Vol] 0.07 10*3/uL Normal <0.10 [facility] Comment on above: Order Comment: Speci men Type: BLOOD SPECIMENOrdering Facility: [facility] Address: [address] [place] [address] Performed By: #### 5 7021-8 ####[facility]IA [id number] [place] [id number] [address] [place] Immature granulocytes/100 WBC (Bld) 0.5 % Normal [facility] Comment on above: Order Comment: Speci men Type: BLOOD SPECIMENOrdering Facility: [facility] Address: [address] [place] [address] Performed By: #### 5 7021-8 ####[facility]CLIA [id number] [place] [address] [place] Lymphocytes (Bld) [#/Vol] 1.09 10*3/uL Normal 1.00-4.00 [facility] Comment on above: Order Comment: Speci men Type: BLOOD SPECIMENOrdering Facility: [facility] Address: [address] [place] [address] Performed By: #### 5 7021-8 ####[facility]CLIA [id number] [address] [place] Lymphocytes/100 WBC (Bld) 8.1 % Normal [facility] Comment on above: Order Comment: Speci men Type: BLOOD SPECIMENOrdering Facility: [facility] Address: [address] [place] [address] Performed By: #### 5 7021-8 ####[facility]CLIA [id number] [place] [address] [place] MCH (RBC) [Entitic mass] 30.6 pg Normal 26.0-34.0 [facility] Comment on above: Order Comment: Speci men Type: BLOOD SPECIMENOrdering Facility: [facility] Address: [address] [place], [place] [address] Performed By: #### 5 7021-8 ####[facility]CLIA [id number] [place] [address] [place] MCHC (RBC) [Mass/Vol] 33.1 g/dL Normal 30.5-36.0 [facility] Comment on above: Order Comment: Speci men Type: BLOOD SPECIMENOrdering Facility: [facility] Address: [address] Performed By: #### 5 7021-8 ####[facility]CLIA [id number] [place] [address] [place] MCV (RBC) [Entitic vol] 92.3 fL Normal 80.0-100.0 [facility] Comment on above: Order Comment: Speci men Type: BLOOD SPECIMENOrdering Facility: [facility] Address: [address] Performed By: #### 5 7021-8 ####[facility] [id number] [place] [address] [place] Monocytes (Bld) [#/Vol] 1.17 10*3/uL High <0.87 [facility] Comment on above: Order Comment: Speci men Type: BLOOD SPECIMENOrdering Facility: [facility] Address: [address] Performed By: #### 5 7021-8 ####[facility] [id number] [place] [address] [place] Monocytes/100 WBC (Bld) 8.7 % Normal [facility] Comment on above: Order Comment: Speci men Type: BLOOD SPECIMENOrdering Facility: [facility] Address: [address] [place] [address] Performed By: #### 5 7021-8 ####[facility]CLIA [id number] [place] [address] [place] Neutrophils (Bld) [#/Vol] 11.10 10*3/uL High 1.45-7.50 [facility] Comment on above: Order Comment: Speci men Type: BLOOD SPECIMENOrdering Facility: [facility] Address: [address] Performed By: #### 5 7021-8 ####[facility]CLIA [id number] [place] [address] [place] Neutrophils/100 WBC (Bld) 82.2 % Normal [facility] Comment on above: Order Comment: Speci men Type: BLOOD SPECIMENOrdering Facility: [facility] Address: [address] [place] [address] Performed By: #### 5 7021-8 ####[facility]CLIA [id number] [place] [address] [place] Nucleated RBC (Bld) [#/Vol] 10*3/uL Normal <0.01 [facility] Comment on above: Order Comment: Speci men Type: BLOOD SPECIMENOrdering Facility: [facility] Address: [address] [place], [place] [address] Performed By: #### 5 7021-8 ####[facility]CLIA [id number] [place] [address] [place] Nucleated RBC/100 WBC (Bld) [Ratio] 0.0 /100 WBC Normal [facility] Comment on above: Order Comment: Speci men Type: BLOOD SPECIMENOrdering Facility: [facility] Address: [address] [place], [place] [address] Performed By: #### 5 7021-8 ####[facility] [id number] [place] [address] [place] Platelet mean volume (Bld) [Entitic vol] 9.3 fL Normal 9.0-12.7 [facility] Comment on above: Order Comment: Speci men Type: BLOOD SPECIMENOrdering Facility: [facility] Address: [address] [place], [place] [address] Performed By: #### 5 7021-8 ####[facility] [id number] [place] [address] [place] Platelets (Bld) [#/Vol] 133 10*3/uL Low 150-400 [facility] [facility] Comment on above: Order Comment: Speci men Type: BLOOD SPECIMENOrdering Facility: [facility] Address: [address] [address] Result Comment: No c lot detected.Results checked and verified. Performed By: #### 5 7021-8 ####[facility] LABCLIA [id number] [place] [address] [place] RBC (Bld) [#/Vol] 3.66 10*6/uL Low 4.20-6.00 [facility] Comment on above: Order Comment: Speci men Type: BLOOD SPECIMENOrdering Facility: [facility] Address: [address] [address] Performed By: #### 5 7021-8 ####[facility] LABCLIA [id number] [place] [address] [place] WBC (Bld) [#/Vol] 13.49 10*3/uL High 3.70-11.00 [facility] Comment on above: Order Comment: Speci men Type: BLOOD SPECIMENOrdering Facility: [facility] Address: [address] [place] [address] Performed By: #### 5 7021-8 ####[facility] LABCLIA [id number] [place] [address] [place] Comprehensive metabolic 2000 panelon 06-25-2023 Albumin [Mass/Vol] 3.2 g/dL Low 3.9-4.9 [facility] Comment on above: Order Comment: Speci men Type: BLOOD SPECIMENOrdering Facility: [facility] Address: [address] [place] [address] Performed By: #### 2 777-1, 06504-2, 25906-6 ####[facility]CLIA [id number] [place] [address] [place] ALP [Catalytic activity/Vol] 77 U/L Normal 38-113 [facility] Comment on above: Order Comment: Speci men Type: BLOOD SPECIMENOrdering Facility: [facility] Address: [address] [address] Performed By: #### 2 777-1, , ####[facility] LABCLIA [id number] [place] [address] [place] ALT [Catalytic activity/Vol] 14 U/L Normal 10-54 [facility] Comment on above: Order Comment: Speci men Type: BLOOD SPECIMENOrdering Facility: [facility] Address: [address] [place] [address] Performed By: #### 2 777-1, , ####[facility] LABCLIA [id number] [place] [address] [place] Anion gap [Moles/Vol] 12 mmol/L Normal 9-18 [facility] Comment on above: Order Comment: Speci men Type: BLOOD SPECIMENOrdering Facility: [facility] Address: [address] [place] [address] Performed By: #### 2 777-1, , ####[facility] LABCLIA [id number] [address] [place] AST [Catalytic activity/Vol] 11 U/L Low 14-40 [facility] Comment on above: Order Comment: Speci men Type: BLOOD SPECIMENOrdering Facility: [facility] Address: [address] [place] [address] Performed By: #### 2 777-1, 83441-3, ####[facility] LABIA [id number] [place] [address] [place] Bilirubin [Mass/Vol] 0.6 mg/dL Normal 0.2-1.3 [facility] Comment on above: Order Comment: Speci men Type: BLOOD SPECIMENOrdering Facility: [facility] Address: [address] Performed By: #### 2 777-1, 23559-2, ####[facility]CLIA [id number] [place] [address] [place] Calcium [Mass/Vol] 9.3 mg/dL Normal 8.5-10.2 [facility] Comment on above: Order Comment: Speci men Type: BLOOD SPECIMENOrdering Facility: [facility] Address: [address] [address] Performed By: #### 2 777-1, 51068-1, ####[facility] LABCLIA [id number] [place] [address] [place] Chloride [Moles/Vol] 103 mmol/L Normal 97-105 [facility] Comment on above: Order Comment: Speci men Type: BLOOD SPECIMENOrdering Facility: [facility] Address: [address] [address] Performed By: #### 2 777-1, 81027-3, ####[facility] LABCLIA [id number] [place] [address] [place] CO2 [Moles/Vol] 24 mmol/L Normal 22-30 [facility] Comment on above: Order Comment: Speci men Type: BLOOD SPECIMENOrdering Facility: [facility] Address: [address] Performed By: #### 2 777-1, 53410-9, ####[facility] LABCLIA [id number] [place] [address] [place] Creatinine [Mass/Vol] 1.47 mg/dL High 0.73-1.22 [facility] Comment on above: Order Comment: Speci men Type: BLOOD SPECIMENOrdering Facility: [facility] Address: [address] Performed By: #### 2 777-1, 86381-6, ####[facility] LABIA [id number] [address] [place] Creatinine and Glomerular filtration rate.predicted panel (S/P/Bld) 55 mL/min/1.73m??? Low >=60 [facility] Comment on above: Order Comment: Iesha marin Type: BLOOD SPECIMENOrdering Facility: [facility] Address: [address] [place] [address] Result Comment: Dayan mated Glomerular Filtration Rate (eGFR) is calculated using the 2020 CKD-EPI creatinine equation. This equation utilizes serum creatinine, sex, and age as parameters. The creatinine assay has traceable calibration to isotope dilution-mass spectrometry. Refer to KDIGO guidelines for clinical interpretation. In patients with unstable renal function, e.g. those with acute kidney injury, the eGFR may not accurately reflect actual GFR. Performed By: #### 2 777-1, 24687-9, ####[facility] LABIA [id number] [place] [address] [place] Glucose [Mass/Vol] 125 mg/dL High 74-99 [facility] Comment on above: Order Comment: Iesha marin Type: BLOOD SPECIMENOrdering Facility: [facility] Address: [address] [place] [address] Result Comment: The [place] Diabetes Association (ADA) provides guidance for cutoff values for fasting glucose and random glucose. The ADA defines fasting as no caloric intake for at least 8 hours. Fasting plasma glucose results between 100 to 125 mg/dL indicate increased risk for diabetes (prediabetes).Fasting plasma glucose results greater than or equal to 126 mg/dL meet the criteria for diagnosis of diabetes. In the absence of unequivocal hyperglycemia, results should be confirmed by repeat testing. In a patient with classic symptoms of hyperglycemia or hyperglycemic crisis, random plasma glucose results greater than or equal to 200 mg/dL meet the criteria for diagnosis of diabetes.Reference: Standards of Medical Care in Diabetes 2016, [place] [employer] Association. Diabetes Care. 2016.39(Suppl 1). Performed By: #### 2 777-1, , ####[facility] LABCLIA [id number] [place] [address] [place] Potassium [Moles/Vol] 4.2 mmol/L Normal 3.7-5.1 [facility] Comment on above: Order Comment: Speci men Type: BLOOD SPECIMENOrdering Facility: [facility] Address: [address] [place], [place] [address] Performed By: #### 2 777-1, , ####[facility] LABCLIA [id number] [place] [address] [place] Protein [Mass/Vol] 5.8 g/dL Low 6.3-8.0 [facility] Comment on above: Order Comment: Speci men Type: BLOOD SPECIMENOrdering Facility: [facility] Address: [address] [place], [place] [address] Performed By: #### 2 777-1, , ####[facility] LABIA [id number] [place] [address] [place] Sodium [Moles/Vol] 139 mmol/L Normal 136-144 [facility] Comment on above: Order Comment: Speci men Type: BLOOD SPECIMENOrdering Facility: [facility] Address: [address] [place] [address] Performed By: #### 2 777-1, , ####[facility] LABCLIA [id number] [address] [address] [place] Urea nitrogen [Mass/Vol] 22 mg/dL Normal 9-24 [facility] Comment on above: Order Comment: Speci men Type: BLOOD SPECIMENOrdering Facility: [facility] Address: [address] [place], [place] [address] Performed By: #### 2 777-1, , ####[facility] LABCLIA [id number] [address] [place] LACOSAMIDEon 06-25-2023 DESMETHYLLACOSAMIDE 1.6 ug/mL Normal <2.6 [facility] Comment on above: Order Comment: Speci men Type: BLOOD SPECIMENOrdering Facility: [facility] Address: [address] [place] [address] Result Comment: Expe cted concentration of patients receiving 200-400 mg/day is up to 2.5 ug/mL for Desmethyllacosamide.This test was developed and its performance characteristics determined by [facility] [place] ([facility]). It has not been cleared or approved by the FDA. [facility] is regulated under CLIA as qualified to perform high-complexity testing. This test is used for clinical purposes. It should not be regarded as investigational or for research. Performed By: #### L ACOS ####[facility] LABCLIA [id number] [place] [address] [place] Lacosamide [Mass/Vol] 15.1 ug/mL Normal 2.2-19.8 [facility] Comment on above: Order Comment: Speci men Type: BLOOD SPECIMENOrdering Facility: [facility] Address: [address] [place] [address] Result Comment: Expe cted concentration of patients receiving 200-400 mg/day is 2.2-19.8 ug/mL for Lacosamide.This test was developed and its performance characteristics determined by [facility] [place] ([facility]). It has not been cleared or approved by the FDA. [facility] is regulated under CLIA as qualified to perform high-complexity testing. This test is used for clinical purposes. It should not be regarded as investigational or for research. Performed By: #### L ACOS ####[facility] LABCLIA [id number] [address] [id number] [address] [place] MEDICAL EMERon 06-25-2023 MEDICAL ANGELIA Normal [facility] Magnesium SerPl-mCncon 06-25 Magnesium [Mass/Vol] 2.4 mg/dL High 1.7-2.3 [facility] Comment on above: Order Comment: Speci men Type: BLOOD SPECIMENOrdering Facility: [facility] Address: [address] [place], [place] [address] Performed By: #### 2 777-1, 91965-2, 70698-1 ####[facility] LABCLIA [id number] [address] [id number] [place] NUTRITIONon 06-25-2023 NUTRITION Normal [facility] Phosphate SerPl-mCncon 06-25 Phosphate [Mass/Vol] 4.0 mg/dL Normal 2.7-4.8 [facility] Comment on above: Order Comment: Speci men Type: BLOOD SPECIMENOrdering Facility: [facility] Address: [address] [place], [place] [address] Performed By: #### 2 777-1, 41885-8, 05242-7 ####[facility] LABCLIA [id number] [place] [address] [place] THERAPY NTon 06-25-2023 THERAPY NT Normal [facility] US LEG VEIN DVT GABE VAS LABo n 06-25-2023 US LEG VEIN DVT GABE VAS LAB Normal [facility] lamoTRIgine SerPl-mCncon lamoTRIgine [Mass/Vol] 8.0 ug/mL Normal 1.0-13.0 [facility] Comment on above: Order Comment: Speci men Type: BLOOD SPECIMENOrdering Facility: [facility] Address: [address] [place] [address] Result Comment: This test was developed and its performance characteristics determined by [facility] José Miguel Swanson [facility] [place] ([facility]). It has not been cleared or approved by the FDA. [facility] is regulated under CLIA as qualified to perform high-complexity testing. This test is used for clinical purposes. It should not be regarded as investigational or for research. Performed By: #### 6 948-4 ####[facility] LABIA [id number] [address] [place] ARTERIAL BLOOD GASESon 06-24 Base excess Calc (Bld) [Moles/Vol] 3 mmol/L High 0-2 [facility] Comment on above: Order Comment: Speci men Type: ARTERIAL BLOOD SPECIMENOrdering Facility: [facility] Address: [address] [place] [address] Performed By: #### A LLBG ####[facility] LABIA [id number] [address] [place] Body temperature 98.6 [degF] Normal [facility] Comment on above: Order Comment: Speci men Type: ARTERIAL BLOOD SPECIMENOrdering Facility: [facility] Address: [address] [place] [address] Performed By: #### A LLBG ####[facility] LABIA [id number] [address] Calcium.ionized (Bld) [Mass/Vol] 1.28 mmol/L Normal 1.08-1.30 [facility] Comment on above: Order Comment: Speci men Type: ARTERIAL BLOOD SPECIMENOrdering Facility: [facility] Address: [address] [place] [address] Performed By: #### A LLBG ####[facility] LABIA [id number] [address] [place] Calcium.ionized adjusted to pH 7.4 (BldA) [Moles/Vol] 1.32 mmol/L High 1.08-1.30 [facility] Comment on above: Order Comment: Speci men Type: ARTERIAL BLOOD SPECIMENOrdering Facility: [facility] Address: [address] [place] [address] Performed By: #### A LLBG ####[facility] LABCLIA [id number] [place] [address] [place] Carboxyhemoglobin (BldA) [Mass fraction] 1.9 % Normal 0.0-2.0 [facility] Comment on above: Order Comment: Speci men Type: ARTERIAL BLOOD SPECIMENOrdering Facility: [facility] Address: [address] [place] [address] Result Comment: Carb oxyhemoglobin Reference Range for Smokers: 2.0-8.0% Performed By: #### A LLBG ####[facility] LABCLIA [id number] [place] [address] [place] CO2 (Bld) [Partial pressure] 37 mm Hg Normal 36-46 [facility] Comment on above: Order Comment: Speci men Type: ARTERIAL BLOOD SPECIMENOrdering Facility: [facility] Address: [address] [place], [place] [address] Performed By: #### A LLBG ####[facility] LABCLIA [id number] [place] [address] [place] Glucose [Mass/Vol] 138 mg/dL High 60-105 [facility] Comment on above: Order Comment: Speci men Type: ARTERIAL BLOOD SPECIMENOrdering Facility: [facility] Address: [address] [place], [place] [address] Performed By: #### A LLBG ####[facility] LABCLIA [id number] [place] [address] [place] HCO3 (Bld) [Moles/Vol] 26 mmol/L Normal 22-26 [facility] Comment on above: Order Comment: Speci men Type: ARTERIAL BLOOD SPECIMENOrdering Facility: [facility] Address: [address] [place], [place] [address] Performed By: #### A LLBG ####[facility] LABCLIA [id number] [address] [id number] [address] [place] Hematocrit (Bld) [Volume fraction] 36.3 % Low 39.0-51.0 [facility] Comment on above: Order Comment: Speci men Type: ARTERIAL BLOOD SPECIMENOrdering Facility: [facility] Address: [address] [place] [address] Performed By: #### A LLBG ####[facility] LABIA [id number] [place] [address] [place] Hemoglobin (Bld) [Mass/Vol] 11.8 g/dL Low 13.0-17.0 [facility] Comment on above: Order Comment: Speci men Type: ARTERIAL BLOOD SPECIMENOrdering Facility: [facility] Address: [address] [place] [address] Performed By: #### A LLBG ####[facility] LABIA [id number] [address] [place] Lactate [Moles/Vol] 0.8 mmol/L Normal 0.5-2.2 [facility] Comment on above: Order Comment: Speci men Type: ARTERIAL BLOOD SPECIMENOrdering Facility: [facility] Address: [address] [place], [place] [address] Performed By: #### A LLBG ####[facility] LABIA [id number] [place] [address] [place] Methemoglobin (Bld) [Mass fraction] 0.9 % Normal 0.0-1.5 [facility] Comment on above: Order Comment: Speci men Type: ARTERIAL BLOOD SPECIMENOrdering Facility: [facility] Address: [address] [place], [place] [address] Performed By: #### A LLBG ####[facility] LABIA [id number] [place] [address] [place] O2 THERAPY RA=Room Air Normal [facility] Comment on above: Order Comment: Speci men Type: ARTERIAL BLOOD SPECIMENOrdering Facility: [facility] Address: [address] [place] [address] Performed By: #### A LLBG ####[facility] LABCLIA [id number] [place] [address] [place] Oxygen (Bld) [Partial pressure] 71 mm Hg Low 85-95 [facility] Comment on above: Order Comment: Speci men Type: ARTERIAL BLOOD SPECIMENOrdering Facility: [facility] Address: [address] Performed By: #### A LLBG ####[facility] LABIA [id number] [place] [address] [place] Oxyhemoglobin (BldA) [Mass fraction] 93 % Low 95-98 [facility] Comment on above: Order Comment: Speci men Type: ARTERIAL BLOOD SPECIMENOrdering Facility: [facility] Address: [address] Performed By: #### A LLBG ####[facility] LABIA [id number] [place] [address] [place] pH (Bld) 7.46 [pH] High 7.35-7.45 [facility] Comment on above: Order Comment: Speci men Type: ARTERIAL BLOOD SPECIMENOrdering Facility: [facility] Address: [address] Performed By: #### A LLBG ####[facility] LABIA [id number] [place] [address] [place] PO2 / FIO2 RATIO 338 mmHg Normal >300 [facility] Comment on above: Order Comment: Speci men Type: ARTERIAL BLOOD SPECIMENOrdering Facility: [facility] Address: [address] [place] [address] Performed By: #### A LLBG ####[facility] LABIA [id number] [place] [address] [place] Potassium [Moles/Vol] 4.0 mmol/L Normal 3.5-5.0 [facility] Comment on above: Order Comment: Speci men Type: ARTERIAL BLOOD SPECIMENOrdering Facility: [facility] Address: [address] [address] Performed By: #### A LLBG ####[facility] LABCLIA [id number] [place] [address] [place] Sodium [Moles/Vol] 139 mmol/L Normal 136-144 [facility] Comment on above: Order Comment: Speci men Type: ARTERIAL BLOOD SPECIMENOrdering Facility: [facility] Address: [address] [address] Performed By: #### A LLBG ####[facility] LABCLIA [id number] [place] [address] [place] Bacteria Bld Culton 06-24-20 Bacteria identified Cx Nom (Bld) ORGANISM ID: 1 Pseudomonas aeruginosa Refer to specimen collected on 06/24/2023 at 1444 [[id number]] GRAM STAIN: Gram negative bacilli Abnormal [facility] Comment on above: Performed By: #### 6 00-7 ####[facility] LABCLIA [id number] [place] [address] [place] Bacteria identified Cx Nom (Bld) Abnormal [facility] Comment on above: Performed By: #### 6 00-7 ####[facility] LABCLIA [id number] [place] [address] [place] CASE MANAGEMon 06-24-2023 CASE MANAGEM Normal [facility] CBC W Auto Differential pane l (Bld)on 06-24-2023 Basophils (Bld) [#/Vol] 0.00 10*3/uL Normal <0.11 [facility] Comment on above: Order Comment: Speci men Type: BLOOD SPECIMENOrdering Facility: [facility] Address: [address] Performed By: #### 5 7021-8 ####[facility] LABCLIA [id number] [place] [address] [place] Basophils/100 WBC (Bld) 0.0 % Normal [facility] Comment on above: Order Comment: Speci men Type: BLOOD SPECIMENOrdering Facility: [facility] Address: [address] [place] [address] Performed By: #### 5 7021-8 ####[facility] LABCLIA [id number] [place] [address] [place] [facility] Differential cell count method Nom (Bld) Manual Normal [facility] Comment on above: Order Comment: Speci men Type: BLOOD SPECIMENOrdering Facility: [facility] Address: [address] [place] [address] Performed By: #### 5 7021-8 ####[facility] LABCLIA [id number] [place] [address] [place] Eosinophils (Bld) [#/Vol] 0.00 10*3/uL Normal <0.46 [facility] Comment on above: Order Comment: Speci men Type: BLOOD SPECIMENOrdering Facility: [facility] Address: [address] [place] [address] Performed By: #### 5 7021-8 ####[facility] LABCLIA [id number] [address] STATES OF [facility] Eosinophils/100 WBC (Bld) 0.0 % Normal [facility] Comment on above: Order Comment: Speci men Type: BLOOD SPECIMENOrdering Facility: [facility] Address: [address] [place], [place] [address] Performed By: #### 5 7021-8 ####[facility] LABCLIA [id number] [place] [address] [place] Erythrocyte distribution width (RBC) [Ratio] 12.5 % Normal 11.5-15.0 [facility] Comment on above: Order Comment: Speci men Type: BLOOD SPECIMENOrdering Facility: [facility] Address: [address] Performed By: #### 5 7021-8 ####[facility] LABCLIA [id number] [place] [address] [place] Hematocrit (Bld) [Volume fraction] 34.8 % Low 39.0-51.0 [facility] Comment on above: Order Comment: Speci men Type: BLOOD SPECIMENOrdering Facility: [facility] Address: [address] Performed By: #### 5 7021-8 ####[facility] LABIA [id number] [place] [address] [place] Hemoglobin (Bld) [Mass/Vol] 11.6 g/dL Low 13.0-17.0 [facility] Comment on above: Order Comment: Speci men Type: BLOOD SPECIMENOrdering Facility: [facility] Address: [address] Performed By: #### 5 7021-8 ####[facility] LABIA [id number] [place] [address] [place] Lymphocytes (Bld) [#/Vol] 1.14 10*3/uL Normal 1.00-4.00 [facility] Comment on above: Order Comment: Speci men Type: BLOOD SPECIMENOrdering Facility: [facility] Address: [address] Performed By: #### 5 7021-8 ####[facility] LABIA [id number] [place] [address] [place] Lymphocytes/100 WBC (Bld) 7.7 % Normal [facility] Comment on above: Order Comment: Speci men Type: BLOOD SPECIMENOrdering Facility: [facility] Address: [address] Performed By: #### 5 7021-8 ####[facility] [id number] [place] [address] [place] MCH (RBC) [Entitic mass] 30.4 pg Normal 26.0-34.0 [facility] Comment on above: Order Comment: Speci men Type: BLOOD SPECIMENOrdering Facility: [facility] Address: [address] [place] [address] Performed By: #### 5 7021-8 ####[facility] [id number] [place] [address] [place] MCHC (RBC) [Mass/Vol] 33.3 g/dL Normal 30.5-36.0 [facility] Comment on above: Order Comment: Speci men Type: BLOOD SPECIMENOrdering Facility: [facility] Address: [address] [place] [address] Performed By: #### 5 7021-8 ####[facility] [id number] [place] [address] [place] MCV (RBC) [Entitic vol] 91.3 fL Normal 80.0-100.0 [facility] Comment on above: Order Comment: Speci men Type: BLOOD SPECIMENOrdering Facility: [facility] Address: [address] [place] [address] Performed By: #### 5 7021-8 ####[facility] [id number] [place] [address] [place] Monocytes (Bld) [#/Vol] 1.26 10*3/uL High <0.87 [facility] Comment on above: Order Comment: Speci men Type: BLOOD SPECIMENOrdering Facility: [facility] Address: [address] [place] [address] Performed By: #### 5 7021-8 ####[facility] [id number] [place] [address] [place] Monocytes/100 WBC (Bld) 8.5 % Normal [facility] Comment on above: Order Comment: Speci men Type: BLOOD SPECIMENOrdering Facility: [facility] Address: [address] [place], [place] [address] Performed By: #### 5 7021-8 ####[facility] LABCLIA [id number] [place] [address] [place] Neutrophils (Bld) [#/Vol] 12.46 10*3/uL High 1.45-7.50 [facility] Comment on above: Order Comment: Speci men Type: BLOOD SPECIMENOrdering Facility: [facility] Address: [address] [place] [address] Performed By: #### 5 7021-8 ####[facility] LABCLIA [id number] [place] [address] [place] Neutrophils/100 WBC (Bld) 83.8 % Normal [facility] Comment on above: Order Comment: Speci men Type: BLOOD SPECIMENOrdering Facility: [facility] Address: [address] [place], [place] [address] Performed By: #### 5 7021-8 ####[facility] LABCLIA [id number] [place] [address] [place] Nucleated RBC (Bld) [#/Vol] 10*3/uL Normal <0.01 [facility] Comment on above: Order Comment: Speci men Type: BLOOD SPECIMENOrdering Facility: [facility] Address: [address] [place], [place] [address] Performed By: #### 5 7021-8 ####[facility]CLIA [id number] [place] [address] [place] Nucleated RBC/100 WBC (Bld) [Ratio] 0.0 /100 WBC Normal [facility] Comment on above: Order Comment: Speci men Type: BLOOD SPECIMENOrdering Facility: [facility] Address: [address] [place] [address] Performed By: #### 5 7021-8 ####[facility]CLIA [id number] [place] [address] [place] Platelet mean volume (Bld) [Entitic vol] 9.5 fL Normal 9.0-12.7 [facility] Comment on above: Order Comment: Speci men Type: BLOOD SPECIMENOrdering Facility: [facility] Address: [address] [place] [address] Performed By: #### 5 7021-8 ####[facility] LABCLIA [id number] [place] [address] [place] Platelets (Bld) [#/Vol] 137 10*3/uL Low 150-400 [facility] Comment on above: Order Comment: Speci men Type: BLOOD SPECIMENOrdering Facility: [facility] Address: [address] [place] [address] Result Comment: Resu lts checked and verified.No clot detected. Performed By: #### 5 7021-8 ####[facility]CLIA [id number] [place] [address] [place] Platelets Estimate (Bld) [#/Vol] Adequate Normal [facility] Comment on above: Order Comment: Speci men Type: BLOOD SPECIMENOrdering Facility: [facility] Address: [address] [place] [address] Performed By: #### 5 7021-8 ####[facility]CLIA [id number] [place] [address] [place] Polychromasia LM Ql (Bld) Slight Normal [facility] Comment on above: Order Comment: Speci men Type: BLOOD SPECIMENOrdering Facility: [facility] Address: [address] [place] [address] Performed By: #### 5 7021-8 ####[facility]CLIA [id number] [place] [address] [place] RBC (Bld) [#/Vol] 3.81 10*6/uL Low 4.20-6.00 [facility] Comment on above: Order Comment: Speci men Type: BLOOD SPECIMENOrdering Facility: [facility] Address: [address] [place] [address] Performed By: #### 5 7021-8 ####[facility]CLIA [id number] [place] [address] [place] RED CELL MORPH Reviewed: unremarkable Normal [facility] Comment on above: Order Comment: Speci men Type: BLOOD SPECIMENOrdering Facility: [facility] Address: [address] [place] [address] Performed By: #### 5 7021-8 ####[facility]CLIA [id number] [place] [address] [place] WBC (Bld) [#/Vol] 14.87 10*3/uL High 3.70-11.00 [facility] Comment on above: Order Comment: Speci men Type: BLOOD SPECIMENOrdering Facility: [facility] Address: [address] [place] [address] Performed By: #### 5 7021-8 ####[facility]CLIA [id number] [place] [address] [place] CONSULTon 06-24-2023 CONSULT Normal [facility] CT BRAIN WO IVCONon 06-24-[address] BRAIN WO IVCON Normal [facility] CT CHEST W IVCON PEon 2022 CT CHEST W IVCON PE Normal [facility] Comprehensive metabolic 2000 panelon 06-24-2023 Albumin [Mass/Vol] 3.4 g/dL Low 3.9-4.9 [facility] Comment on above: Order Comment: Speci men Type: BLOOD SPECIMENOrdering Facility: [facility] Address: [address] [place] [address] Performed By: #### 2 777-1, 89802-3, ####[facility]CLIA [id number] [place] [address] [place] ALP [Catalytic activity/Vol] 76 U/L Normal 38-113 [facility] Comment on above: Order Comment: Speci men Type: BLOOD SPECIMENOrdering Facility: [facility] Address: [address] Performed By: #### 2 777-1, 36982-4, ####[facility]CLIA [id number] [place] [address] [place] ALT [Catalytic activity/Vol] 11 U/L Normal 10-54 [facility] Comment on above: Order Comment: Speci men Type: BLOOD SPECIMENOrdering Facility: [facility] Address: [address] [place], [place] [address] Performed By: #### 2 777-1, , ####[facility] LABCLIA [id number] [place] [address] [place] Anion gap [Moles/Vol] 12 mmol/L Normal 9-18 [facility] Comment on above: Order Comment: Speci men Type: BLOOD SPECIMENOrdering Facility: [facility] Address: [address] [place] [address] Performed By: #### 2 777-1, 73460-3, ####[facility] LABCLIA [id number] [place] [id number] [place] AST [Catalytic activity/Vol] 14 U/L Normal 14-40 [facility] Comment on above: Order Comment: Speci men Type: BLOOD SPECIMENOrdering Facility: [facility] Address: [address] [place] [address] Performed By: #### 2 777-1, 49434-8, ####[facility]CLIA [id number] [place] [address] [place] Bilirubin [Mass/Vol] 0.8 mg/dL Normal 0.2-1.3 [facility] Comment on above: Order Comment: Speci men Type: BLOOD SPECIMENOrdering Facility: [facility] Address: [address] Performed By: #### 2 777-1, , ####[facility] LABCLIA [id number] [place] [address] [place] Calcium [Mass/Vol] 9.3 mg/dL Normal 8.5-10.2 [facility] Comment on above: Order Comment: Speci men Type: BLOOD SPECIMENOrdering Facility: [facility] Address: [address] Performed By: #### 2 777-1, , ####[facility]CLIA [id number] [place] [address] [place] Chloride [Moles/Vol] 103 mmol/L Normal 97-105 [facility] Comment on above: Order Comment: Speci men Type: BLOOD SPECIMENOrdering Facility: [facility] Address: [address] Performed By: #### 2 777-1, , ####[facility] LABCLIA [id number] [place] [address] [place] CO2 [Moles/Vol] 23 mmol/L Normal 22-30 [facility] Comment on above: Order Comment: Speci men Type: BLOOD SPECIMENOrdering Facility: [facility] Address: [address] [place] [address] Performed By: #### 2 777-1, , ####[facility] LABCLIA [id number] [place] [address] [place] Creatinine [Mass/Vol] 1.45 mg/dL High 0.73-1.22 [facility] Comment on above: Order Comment: Iesha marin Type: BLOOD SPECIMENOrdering Facility: [facility] Address: [address] [place] [id number] Performed By: #### 2 777-1, , ####[facility] LABIA [id number] [address] [facility] Creatinine and Glomerular filtration rate.predicted panel (S/P/Bld) 56 mL/min/1.73m??? Low >=60 [facility] Comment on above: Order Comment: Iesha marin Type: BLOOD SPECIMENOrdering Facility: [facility] Address: [address] [place] [address] Result Comment: Dayan mated Glomerular Filtration Rate (eGFR) is calculated using the 2020 CKD-EPI creatinine equation. This equation utilizes serum creatinine, sex, and age as parameters. The creatinine assay has traceable calibration to isotope dilution-mass spectrometry. Refer to KDIGO guidelines for clinical interpretation. In patients with unstable renal function, e.g. those with acute kidney injury, the eGFR may not accurately reflect actual GFR. Performed By: #### 2 777-1, , ####[facility] LABIA [id number] [place] [address] [place] Glucose [Mass/Vol] 125 mg/dL High 74-99 [facility] Comment on above: Order Comment: Iesha marin Type: BLOOD SPECIMENOrdering Facility: [facility] Address: [address] [place] [address] Result Comment: The [place] Diabetes Association (ADA) provides guidance for cutoff values for fasting glucose and random glucose. The ADA defines fasting as no caloric intake for at least 8 hours. Fasting plasma glucose results between 100 to 125 mg/dL indicate increased risk for diabetes (prediabetes).Fasting plasma glucose results greater than or equal to 126 mg/dL meet the criteria for diagnosis of diabetes. In the absence of unequivocal hyperglycemia, results should be confirmed by repeat testing. In a patient with classic symptoms of hyperglycemia or hyperglycemic crisis, random plasma glucose results greater than or equal to 200 mg/dL meet the criteria for diagnosis of diabetes.Reference: Standards of Medical Care in Diabetes 2016, [place] [employer] Association. Diabetes Care. 2016.39(Suppl 1). Performed By: #### 2 777-1, , ####[facility] LABCLIA [id number] [address] [address] [place] Potassium [Moles/Vol] 3.9 mmol/L Normal 3.7-5.1 [facility] Comment on above: Order Comment: Speci men Type: BLOOD SPECIMENOrdering Facility: [facility] Address: [address] [place], [place] [address] Performed By: #### 2 777-1, , ####[facility] LABCLIA [id number] [place] [address] [place] Protein [Mass/Vol] 6.1 g/dL Low 6.3-8.0 [facility] Comment on above: Order Comment: Speci men Type: BLOOD SPECIMENOrdering Facility: [facility] Address: [address] [place], [place] [address] Performed By: #### 2 777-1, , ####[facility] LABCLIA [id number] [place] [id number] [place] Sodium [Moles/Vol] 138 mmol/L Normal 136-144 [facility] Comment on above: Order Comment: Speci men Type: BLOOD SPECIMENOrdering Facility: [facility] Address: [address] [place] [id number] Performed By: #### 2 777-1, , ####[facility] LABCLIA [id number] [address] [address] [place] Urea nitrogen [Mass/Vol] 20 mg/dL Normal 9-24 [facility] Comment on above: Order Comment: Speci men Type: BLOOD SPECIMENOrdering Facility: [facility] Address: [address] [place], [place] [address] Performed By: #### 2 777-1, , ####[facility] LABIA [id number] [place] [address] [place] MEDICAL EMERon 06-24-2023 MEDICAL ANGELIA Normal [facility] Magnesium SerPl-mCncon 06-24 Magnesium [Mass/Vol] 1.6 mg/dL Low 1.7-2.3 [facility] Comment on above: Order Comment: Speci men Type: BLOOD SPECIMENOrdering Facility: [facility] Address: [address] [place] [address] Performed By: #### 2 777-1, , ####[facility] LABIA [id number] [place] [id number] [place] Phosphate SerPl-mCncon 06-24 Phosphate [Mass/Vol] 3.1 mg/dL Normal 2.7-4.8 [facility] Comment on above: Order Comment: Speci men Type: BLOOD SPECIMENOrdering Facility: [facility] Address: [address] [place], [place] [address] Performed By: #### 2 777-1, , ####[facility] LABIA [id number] [place] [id number] [place] Procalcitonin SerPl-mCncon 0 06-24-2023 Procalcitonin [Mass/Vol] 2.97 ng/mL High <0.09 [facility] Comment on above: Order Comment: Speci men Type: BLOOD SPECIMENOrdering Facility: [facility] Address: [address] [place], [place] [address] Result Comment: For a guided interpretation of test results, please visit the Change in Procalcitonin Calculator, [email or web address]. Performed By: #### 3 3959-8 ####[facility] LABCLIA [id number] [place] [address] [place] SEPSIS LACTATEon 06-24-2023 Lactate [Moles/Vol] 1.4 mmol/L Normal <=2.0 [facility] Comment on above: Order Comment: Speci tania Type: BLOOD SPECIMENOrdering Facility: [facility] Address: [address] [place] [address] Performed By: #### S LACT ####[facility] LABIA [id number] [address] [place] THERAPY NTon 06-24-2023 THERAPY NT Normal [facility] THERAPY NT Normal [facility] Tacrolimus Bld-mCncon 2022 Tacrolimus (Bld) [Mass/Vol] 4.3 ng/mL Low 5.0-20.0 [facility] Comment on above: Order Comment: Iesha marin Type: BLOOD SPECIMENOrdering Facility: [facility] Address: [address] [place] [address] Result Comment: Nayely vidualized target levels for a given patient will depend on many factors (including the type of organ transplant, time since transplantation, concurrent medications, and other clinical factors), and should be assessed by those health care providers experienced in the management of immunosuppression. Reference ranges and high/low indicator flags are provided as general guidelines only. The treating physician must determine appropriate target levels/dosing based on the specific clinical situation. Test performed by chemiluminescent immunoassay using [employer] Al[employer] i. Performed By: #### 1 1253-2 ####[facility] LABCLIA [id number] [place] [address] [place] Tacrolimus (Bld) [Mass/Vol] 2.5 ng/mL Low 5.0-20.0 [facility] Comment on above: Order Comment: Makaylai men Type: BLOOD SPECIMENOrdering Facility: [facility] Address: [address] [place] [address] Result Comment: Nayely vidualized target levels for a given patient will depend on many factors (including the type of organ transplant, time since transplantation, concurrent medications, and other clinical factors), and should be assessed by those health care providers experienced in the management of immunosuppression. Reference ranges and high/low indicator flags are provided as general guidelines only. The treating physician must determine appropriate target levels/dosing based on the specific clinical situation. Test performed by chemiluminescent immunoassay using [employer] Alinity i. Performed By: #### 1 1253-2 ####[facility] LABCLIA [id number] [place] [address] [place] URINALYSIS, REFLEX MICROSCOP ICon 06-24-2023 Bacteria LM.HPF (Urine sed) [#/Area] Few Abnormal None Seen [facility] Comment on above: Order Comment: Speci men Type: URINE SPECIMENOrdering Facility: [facility] Address: [address] [place] [address] Performed By: #### L [id number] ####[facility] LABCLIA [id number] [place] [address] [place] Bilirubin Ql (U) Negative Normal Negative [facility] Comment on above: Order Comment: Speci men Type: URINE SPECIMENOrdering Facility: [facility] Address: [address] [place] [address] Performed By: #### L [id number] ####[facility] LABCLIA [id number] [address] [place] Clarity (Unsp spec) Clear Normal Clear [facility] Comment on above: Order Comment: Speci men Type: URINE SPECIMENOrdering Facility: [facility] Address: [address] [place] [address] Performed By: #### L [id number] ####[facility] LABCLIA [id number] [place] [address] [place] Color (U) Yellow Normal Yellow [facility] Comment on above: Order Comment: Speci men Type: URINE SPECIMENOrdering Facility: [facility] Address: [address] Performed By: #### L [id number] ####[facility] LABCLIA [id number] [place] [address] [place] Epithelial cells LM.HPF (Urine sed) [#/Area] Few Normal [facility] Comment on above: Order Comment: Speci men Type: URINE SPECIMENOrdering Facility: [facility] Address: [address] Performed By: #### L [id number] ####[facility] LABCLIA [id number] [place] [address] [place] Glucose Test strip (U) [Mass/Vol] Negative Normal Trace, Negative [facility] Comment on above: Order Comment: Speci men Type: URINE SPECIMENOrdering Facility: [facility] Address: [address] Performed By: #### L [id number] ####[facility] LABCLIA [id number] [place] [address] [place] Hemoglobin Ql (U) 1+ Abnormal Negative, Trace [facility] Comment on above: Order Comment: Speci men Type: URINE SPECIMENOrdering Facility: [facility] Address: [address] Performed By: #### L [id number] ####[facility] LABCLIA [id number] [place] [address] [place] Ketones Ql (U) Negative Normal Trace, Negative [facility] Comment on above: Order Comment: Speci men Type: URINE SPECIMENOrdering Facility: [facility] Address: [address] Performed By: #### L [id number] ####[facility] LABCLIA [id number] [place] [address] [place] Leukocyte esterase Test strip Ql (U) 75 Edward/uL Abnormal Negative, 25 Edward/uL [facility] Comment on above: Order Comment: Speci men Type: URINE SPECIMENOrdering Facility: [facility] Address: [address] [place] [address] Performed By: #### L [id number] ####[facility]CLIA [id number] [place] [address] [place] Nitrite Ql (U) Negative Normal Negative [facility] Comment on above: Order Comment: Speci men Type: URINE SPECIMENOrdering Facility: [facility] Address: [address] [place] [address] Performed By: #### L [id number] ####[facility] LABCLIA [id number] [place] [address] [place] pH (U) 6.0 [pH] Normal 5.0-8.0 [facility] Comment on above: Order Comment: Speci men Type: URINE SPECIMENOrdering Facility: [facility] Address: [address] [place] [address] Performed By: #### L [id number] ####[facility] LABCLIA [id number] [place] [address] [place] Protein (U) [Mass/Vol] 2+ Abnormal Trace, Negative [facility] Comment on above: Order Comment: Speci men Type: URINE SPECIMENOrdering Facility: [facility] Address: [address] [place] [address] Performed By: #### L [id number] ####[facility] LABCLIA [id number] [place] [address] [place] RBC LM.HPF (Urine sed) [#/Area] 3-5 /HPF Abnormal 0-3 /HPF [facility] Comment on above: Order Comment: Speci men Type: URINE SPECIMENOrdering Facility: [facility] Address: [address] [place] [address] Performed By: #### L [id number] ####[facility] LABIA [id number] [address] Specific gravity (U) [Rel density] 1.027 Normal 1.005-1.030 [facility] Comment on above: Order Comment: Speci men Type: URINE SPECIMENOrdering Facility: [facility] Address: [address] [place] [address] Performed By: #### L [id number] ####[facility] LABIA [id number] [place] [address] [place] Urobilinogen Ql (U) Negative Normal Negative [facility] Comment on above: Order Comment: Speci men Type: URINE SPECIMENOrdering Facility: [facility] Address: [address] [place] [address] Performed By: #### L [id number] ####[facility] LABIA [id number] [place] [address] [place] WBC LM.HPF (Urine sed) [#/Area] 11-25 /HPF Abnormal 0-5 /HPF [facility] Comment on above: Order Comment: Speci men Type: URINE SPECIMENOrdering Facility: [facility] Address: [address] [place] [address] Performed By: #### L [id number] ####[facility] LABIA [id number] [place] [address] [place] XR ABDOMEN 1V SUPINEon 06-24 XR ABDOMEN 1V SUPINE Normal [facility] XR CHEST 1V FRONTAL PORTon 0 06-24-2023 XR CHEST 1V FRONTAL PORT Normal [facility] CASE MANAGEMon 06-23-2023 CASE MANAGEM Normal [facility] CBC W Auto Differential pane l (Bld)on 06-23-2023 Basophils (Bld) [#/Vol] 10*3/uL Normal <0.11 [facility] Comment on above: Order Comment: Speci men Type: BLOOD SPECIMENOrdering Facility: [facility] Address: [address] Performed By: #### 5 7021-8 ####[facility] LABCLIA [id number] [place] [address] [place] Basophils/100 WBC (Bld) 0.1 % Normal [facility] Comment on above: Order Comment: Speci men Type: BLOOD SPECIMENOrdering Facility: [facility] Address: [address] [place], [place] [address] Performed By: #### 5 7021-8 ####[facility] LABCLIA [id number] [place] [address] [place] Differential cell count method Nom (Bld) Auto Normal [facility] Comment on above: Order Comment: Speci men Type: BLOOD SPECIMENOrdering Facility: [facility] Address: [address] Performed By: #### 5 7021-8 ####[facility] LABCLIA [id number] [place] [address] [place] Eosinophils (Bld) [#/Vol] 10*3/uL Normal <0.46 [facility] Comment on above: Order Comment: Speci men Type: BLOOD SPECIMENOrdering Facility: [facility] Address: [address] [place], [place] [address] Performed By: #### 5 7021-8 ####[facility] LABCLIA [id number] [place] [address] [place] Eosinophils/100 WBC (Bld) 0.0 % Normal [facility] Comment on above: Order Comment: Speci men Type: BLOOD SPECIMENOrdering Facility: [facility] Address: [address] Performed By: #### 5 7021-8 ####[facility] LABCLIA [id number] [place] [address] [place] Erythrocyte distribution width (RBC) [Ratio] 13.0 % Normal 11.5-15.0 [facility] Comment on above: Order Comment: Speci men Type: BLOOD SPECIMENOrdering Facility: [facility] Address: [address] [place] [address] Performed By: #### 5 7021-8 ####[facility] LABIA [id number] [place] [address] [place] Hematocrit (Bld) [Volume fraction] 35.5 % Low 39.0-51.0 [facility] Comment on above: Order Comment: Speci men Type: BLOOD SPECIMENOrdering Facility: [facility] Address: [address] [place] [address] Performed By: #### 5 7021-8 ####[facility] [id number] [place] [address] [place] Hemoglobin (Bld) [Mass/Vol] 11.8 g/dL Low 13.0-17.0 [facility] Comment on above: Order Comment: Speci men Type: BLOOD SPECIMENOrdering Facility: [facility] Address: [address] [place], [place] [address] Performed By: #### 5 7021-8 ####[facility] [id number] [place] [address] [place] Immature granulocytes (Bld) [#/Vol] 0.06 10*3/uL Normal <0.10 [facility] Comment on above: Order Comment: Speci men Type: BLOOD SPECIMENOrdering Facility: [facility] [facility] Address: [address] [place], [place] [address] Performed By: #### 5 7021-8 ####[facility] LABIA [id number] [place] [address] [place] Immature granulocytes/100 WBC (Bld) 0.6 % Normal [facility] Comment on above: Order Comment: Speci men Type: BLOOD SPECIMENOrdering Facility: [facility] Address: [address] [place], [place] [address] Performed By: #### 5 7021-8 ####[facility] LABCLIA [id number] [place] [address] [place] Lymphocytes (Bld) [#/Vol] 3.30 10*3/uL Normal 1.00-4.00 [facility] Comment on above: Order Comment: Speci men Type: BLOOD SPECIMENOrdering Facility: [facility] Address: [address] [place] [address] Performed By: #### 5 7021-8 ####[facility] LABCLIA [id number] [address] [place] Lymphocytes/100 WBC (Bld) 32.2 % Normal [facility] Comment on above: Order Comment: Speci men Type: BLOOD SPECIMENOrdering Facility: [facility] Address: [address] [place], [place] [address] Performed By: #### 5 7021-8 ####[facility] LABCLIA [id number] [place] [address] [place] MCH (RBC) [Entitic mass] 30.4 pg Normal 26.0-34.0 [facility] Comment on above: Order Comment: Speci men Type: BLOOD SPECIMENOrdering Facility: [facility] Address: [address] [place], [place] [address] Performed By: #### 5 7021-8 ####[facility] LABCLIA [id number] [place] [address] [place] MCHC (RBC) [Mass/Vol] 33.2 g/dL Normal 30.5-36.0 [facility] Comment on above: Order Comment: Speci men Type: BLOOD SPECIMENOrdering Facility: [facility] Address: [address] [place], [place] [address] Performed By: #### 5 7021-8 ####[facility] LABCLIA [id number] [place] [address] [place] MCV (RBC) [Entitic vol] 91.5 fL Normal 80.0-100.0 [facility] Comment on above: Order Comment: Speci men Type: BLOOD SPECIMENOrdering Facility: [facility] Address: [address] [place] [address] Performed By: #### 5 7021-8 ####[facility]IA [id number] [place] [address] [place] Monocytes (Bld) [#/Vol] 1.02 10*3/uL High <0.87 [facility] Comment on above: Order Comment: Speci men Type: BLOOD SPECIMENOrdering Facility: [facility] Address: [address] [place], [place] [address] Performed By: #### 5 7021-8 ####[facility] [id number] [place] [address] [place] Monocytes/100 WBC (Bld) 9.9 % Normal [facility] Comment on above: Order Comment: Speci men Type: BLOOD SPECIMENOrdering Facility: [facility] Address: [address] [place] [address] Performed By: #### 5 7021-8 ####[facility] [id number] [place] [address] [place] Neutrophils (Bld) [#/Vol] 5.87 10*3/uL Normal 1.45-7.50 [facility] Comment on above: Order Comment: Speci men Type: BLOOD SPECIMENOrdering Facility: [facility] Address: [address] Performed By: #### 5 7021-8 ####[facility]IA [id number] [place] [address] [place] Neutrophils/100 WBC (Bld) 57.2 % Normal [facility] Comment on above: Order Comment: Speci men Type: BLOOD SPECIMENOrdering Facility: [facility] Address: [address] [place], [place] [address] Performed By: #### 5 7021-8 ####[facility] LABCLIA [id number] [place] [address] [place] Nucleated RBC (Bld) [#/Vol] 0.02 10*3/uL High <0.01 [facility] Comment on above: Order Comment: Speci men Type: BLOOD SPECIMENOrdering Facility: [facility] Address: [address] [place], [place] [address] Performed By: #### 5 7021-8 ####[facility] LABCLIA [id number] [place] [address] [place] Nucleated RBC/100 WBC (Bld) [Ratio] 0.2 /100 WBC Normal [facility] Comment on above: Order Comment: Speci men Type: BLOOD SPECIMENOrdering Facility: [facility] Address: [address] [place], [place] [address] Performed By: #### 5 7021-8 ####[facility]IA [id number] [place] [address] [place] Platelet mean volume (Bld) [Entitic vol] 9.4 fL Normal 9.0-12.7 [facility] Comment on above: Order Comment: Speci men Type: BLOOD SPECIMENOrdering Facility: [facility] Address: [address] [place], [place] [address] Performed By: #### 5 7021-8 ####[facility]CLIA [id number] [place] [address] [place] Platelets (Bld) [#/Vol] 131 10*3/uL Low 150-400 [facility] Comment on above: Order Comment: Speci men Type: BLOOD SPECIMENOrdering Facility: [facility] Address: [address] Performed By: #### 5 7021-8 ####[facility]IA [id number] [place] [address] [place] RBC (Bld) [#/Vol] 3.88 10*6/uL Low 4.20-6.00 [facility] Comment on above: Order Comment: Speci men Type: BLOOD SPECIMENOrdering Facility: [facility] Address: [address] Performed By: #### 5 7021-8 ####[facility] [id number] [place] [address] [place] WBC (Bld) [#/Vol] 10.26 10*3/uL Normal 3.70-11.00 [facility] Comment on above: Order Comment: Speci men Type: BLOOD SPECIMENOrdering Facility: [facility] Address: [address] [place], [place] [address] Performed By: #### 5 7021-8 ####[facility] [id number] [place] [address] [place] CONSULTon 06-23-2023 CONSULT Normal [facility] Calcium.ionized [Moles/Vol]o n 06-23-2023 Calcium.ionized (Bld) [Mass/Vol] 1.34 mmol/L High 1.08-1.30 [facility] Comment on above: Order Comment: Speci men Type: BLOOD SPECIMENOrdering Facility: [facility] Address: [address] [place], [place] [address] Performed By: #### 1 995-0 ####[facility] [id number] [place] [address] [place] Calcium.ionized adjusted to pH 7.4 (Bld) [Moles/Vol] 1.36 mmol/L High 1.08-1.30 [facility] Comment on above: Order Comment: Speci men Type: BLOOD SPECIMENOrdering Facility: [facility] Address: [address] [place] [address] Performed By: #### 1 995-0 ####[facility] LABCLIA [id number] [place] [address] [place] Comprehensive metabolic 2000 panelon 06-23-2023 Albumin [Mass/Vol] 3.5 g/dL Low 3.9-4.9 [facility] Comment on above: Order Comment: Speci men Type: BLOOD SPECIMENOrdering Facility: [facility] Address: [address] [place] [place] [address] Performed By: #### 1 9123-9, 94147-9, 2777-1 ####[facility]IA [id number] [place] [address] [place] ALP [Catalytic activity/Vol] 68 U/L Normal 38-113 [facility] Comment on above: Order Comment: Speci men Type: BLOOD SPECIMENOrdering Facility: [facility] Address: [address] [place] [address] Performed By: #### 1 9123-9, 20636-7, 2777- ####[facility] [id number] [place] [address] [place] ALT [Catalytic activity/Vol] 12 U/L Normal 10-54 [facility] Comment on above: Order Comment: Speci men Type: BLOOD SPECIMENOrdering Facility: [facility] Address: [address] [place] [place] [address] Performed By: #### 1 9123-9, 58316-2, 2777- ####[facility] [id number] [place] [address] [place] Anion gap [Moles/Vol] 11 mmol/L Normal 9-18 [facility] Comment on above: Order Comment: Speci men Type: BLOOD SPECIMENOrdering Facility: [facility] Address: [address] [place] [address] Performed By: #### 1 9123-9, 93503-4, 2776- ####[facility] LABCLIA [id number] [place] [address] [place] AST [Catalytic activity/Vol] 10 U/L Low 14-40 [facility] Comment on above: Order Comment: Speci men Type: BLOOD SPECIMENOrdering Facility: [facility] Address: [address] Performed By: #### 1 9123-9, 26561-8, 277- ####[facility] LABCLIA [id number] [place] [address] [place] Bilirubin [Mass/Vol] 0.6 mg/dL Normal 0.2-1.3 [facility] Comment on above: Order Comment: Speci men Type: BLOOD SPECIMENOrdering Facility: [facility] Address: [address] [place], [place] [address] Performed By: #### 1 9123-9, 53396-8, 2776-10 ####[facility] LABCLIA [id number] [place] [address] [place] Calcium [Mass/Vol] 9.6 mg/dL Normal 8.5-10.2 [facility] Comment on above: Order Comment: Speci men Type: BLOOD SPECIMENOrdering Facility: [facility] Address: [address] [place] [address] Performed By: #### 1 9123-9, 71800-2, 277- ####[facility] LABCLIA [id number] [place] [address] [place] Chloride [Moles/Vol] 108 mmol/L High 97-105 [facility] Comment on above: Order Comment: Speci men Type: BLOOD SPECIMENOrdering Facility: [facility] Address: [address] [place] [address] Performed By: #### 1 9123-9, 53072-3, 27704-09 ####[facility] [id number] [place] [address] [place] CO2 [Moles/Vol] 22 mmol/L Normal 22-30 [facility] Comment on above: Order Comment: Speci men Type: BLOOD SPECIMENOrdering Facility: [facility] Address: [address] [address] Performed By: #### 1 9123-9, 55746-5, 2776-10 ####[facility]IA [id number] [place] [address] [place] Creatinine [Mass/Vol] 1.31 mg/dL High 0.73-1.22 [facility] Comment on above: Order Comment: Speci men Type: BLOOD SPECIMENOrdering Facility: [facility] Address: [address] [place] [address] Performed By: #### 1 9123-9, , 2776-10 ####[facility] [id number] [place] [address] [place] Creatinine and Glomerular filtration rate.predicted panel (S/P/Bld) 63 mL/min/1.73m??? Normal >=60 [facility] Comment on above: Order Comment: Speci men Type: BLOOD SPECIMENOrdering Facility: [facility] Address: [address] [place] [address] Result Comment: Dayan mated Glomerular Filtration Rate (eGFR) is calculated using the 2020 CKD-EPI creatinine equation. This equation utilizes serum creatinine, sex, and age as parameters. The creatinine assay has traceable calibration to isotope dilution-mass spectrometry. Refer to KDIGO guidelines for clinical interpretation. In patients with unstable renal function, e.g. those with acute kidney injury, the eGFR may not accurately reflect actual GFR. Performed By: #### 1 9123-9, 17603-9, 2777-1 ####[facility] [id number] [place] [address] [place] Glucose [Mass/Vol] 109 mg/dL High 74-99 [facility] Comment on above: Order Comment: Speci men Type: BLOOD SPECIMENOrdering Facility: [facility] Address: [address] [place] [address] Result Comment: The [place] Diabetes Association (ADA) provides guidance for cutoff values for fasting glucose and random glucose. The ADA defines fasting as no caloric intake for at least 8 hours. Fasting plasma glucose results between 100 to 125 mg/dL indicate increased risk for diabetes (prediabetes).Fasting plasma glucose results greater than or equal to 126 mg/dL meet the criteria for diagnosis of diabetes. In the absence of unequivocal hyperglycemia, results should be confirmed by repeat testing. In a patient with classic symptoms of hyperglycemia or hyperglycemic crisis, random plasma glucose results greater than or equal to 200 mg/dL meet the criteria for diagnosis of diabetes.Reference: Standards of Medical Care in Diabetes 2016, [place] [employer] Association. Diabetes Care. 2016.39(Suppl 1). Performed By: #### 1 9123-9, 81462-5, 2777-1 ####[facility] [id number] [place] [address] [place] Potassium [Moles/Vol] 4.4 mmol/L Normal 3.7-5.1 [facility] Comment on above: Order Comment: Speci men Type: BLOOD SPECIMENOrdering Facility: [facility] Address: [address] [place], [place] [address] Performed By: #### 1 9123-9, 66622-3, 2777-1 ####[facility] LABIA [id number] [place] [id number] [place] Protein [Mass/Vol] 5.9 g/dL Low 6.3-8.0 [facility] Comment on above: Order Comment: Speci men Type: BLOOD SPECIMENOrdering Facility: [facility] Address: [address] [place] [address] Performed By: #### 1 9123-9, 80052-2, 2777-1 ####[facility]CLIA [id number] [place] [address] [place] Sodium [Moles/Vol] 141 mmol/L Normal 136-144 [facility] Comment on above: Order Comment: Speci men Type: BLOOD SPECIMENOrdering Facility: [facility] Address: [address] [place] [address] Performed By: #### 1 9123-9, 62243-3, 2777 ####[facility] [id number] [place] [address] [place] Urea nitrogen [Mass/Vol] 18 mg/dL Normal 9-24 [facility] Comment on above: Order Comment: Speci men Type: BLOOD SPECIMENOrdering Facility: [facility] Address: [address] [place] [address] Performed By: #### 1 9123-9, 22530-0, 2777 ####[facility] [id number] [place] [address] [place] Magnesium SerPl-mCncon 06-23 Magnesium [Mass/Vol] 1.8 mg/dL Normal 1.7-2.3 [facility] Comment on above: Order Comment: Speci men Type: BLOOD SPECIMENOrdering Facility: [facility] Address: [address] [place] [address] Performed By: #### 1 9123-9, 15752-5, 2777 ####[facility] [id number] [place] [address] [place] NURSING PROGon 06-23-2023 NURSING PROG Normal [facility] Phosphate SerPl-mCncon 06-23 Phosphate [Mass/Vol] 2.4 mg/dL Low 2.7-4.8 [facility] Comment on above: Order Comment: Speci men Type: BLOOD SPECIMENOrdering Facility: [facility] Address: [address] [address] Performed By: #### 1 9123-9, 97359-8, 2777-1 ####[facility]CLIA [id number] [place] [address] [place] [facility] [place] THERAPY NTon 06-23-2023 THERAPY NT Normal [facility] THERAPY NT Normal [facility] THERAPY NT Normal [facility] Tacrolimus Bld-mCncon 2022 Tacrolimus (Bld) [Mass/Vol] 4.3 ng/mL Low 5.0-20.0 [facility] Comment on above: Order Comment: Iesha marin Type: BLOOD SPECIMENOrdering Facility: [facility] Address: [address] [address] Result Comment: Nayely vidualized target levels for a given patient will depend on many factors (including the type of organ transplant, time since transplantation, concurrent medications, and other clinical factors), and should be assessed by those health care providers experienced in the management of immunosuppression. Reference ranges and high/low indicator flags are provided as general guidelines only. The treating physician must determine appropriate target levels/dosing based on the specific clinical situation. Test performed by chemiluminescent immunoassay using [employer] i. Performed By: #### 1 1253-2 ####[facility]CLIA [id number] [place] [address] [place] CASE MGT INIT ASSESon 2022 CASE MGT INIT ASSES Normal [facility] CBC W Auto Differential pane l (Bld)on 06-22-2023 Basophils (Bld) [#/Vol] 10*3/uL Normal <0.11 [facility] Comment on above: Order Comment: Iesha marni Type: BLOOD SPECIMENOrdering Facility: [facility] Address: [address] [id number] Performed By: #### 5 7021-8 ####[facility]CLIA [id number] [place] [address] [place] Basophils/100 WBC (Bld) 0.1 % Normal [facility] Comment on above: Order Comment: Speci men Type: BLOOD SPECIMENOrdering Facility: [facility] Address: [address] Performed By: #### 5 7021-8 ####[facility]CLIA [id number] [place] [address] [place] Differential cell count method Nom (Bld) Auto Normal [facility] Comment on above: Order Comment: Speci men Type: BLOOD SPECIMENOrdering Facility: [facility] Address: [address] [place], [place] [address] Performed By: #### 5 7021-8 ####[facility]CLIA [id number] [place] [address] [place] Eosinophils (Bld) [#/Vol] 10*3/uL Normal <0.46 [facility] Comment on above: Order Comment: Speci men Type: BLOOD SPECIMENOrdering Facility: [facility] Address: [address] [place], [place] [address] Performed By: #### 5 7021-8 ####[facility]CL[facility] [id number] [address] [place] Eosinophils/100 WBC (Bld) 0.0 % Normal [facility] Comment on above: Order Comment: Speci men Type: BLOOD SPECIMENOrdering Facility: [facility] Address: [address] [place] [address] Performed By: #### 5 7021-8 ####[facility]CL[facility] [id number] [place] [address] [place] Erythrocyte distribution width (RBC) [Ratio] 13.2 % Normal 11.5-15.0 [facility] Comment on above: Order Comment: Speci men Type: BLOOD SPECIMENOrdering Facility: [facility] Address: [address] Performed By: #### 5 7021-8 ####[facility]CL[facility] [id number] [place] [address] [place] Hematocrit (Bld) [Volume fraction] 37.5 % Low 39.0-51.0 [facility] Comment on above: Order Comment: Speci men Type: BLOOD SPECIMENOrdering Facility: [facility] Address: [address] Performed By: #### 5 7021-8 ####[facility] [id number] [place] [address] [place] Hemoglobin (Bld) [Mass/Vol] 12.4 g/dL Low 13.0-17.0 [facility] Comment on above: Order Comment: Speci men Type: BLOOD SPECIMENOrdering Facility: [facility] Address: [address] [place], [place] [address] Performed By: #### 5 7021-8 ####[facility] [id number] [place] [address] [place] Immature granulocytes (Bld) [#/Vol] 0.08 10*3/uL Normal <0.10 [facility] Comment on above: Order Comment: Speci men Type: BLOOD SPECIMENOrdering Facility: [facility] Address: [address] Performed By: #### 5 7021-8 ####[facility] [id number] [address] [place] Immature granulocytes/100 WBC (Bld) 0.6 % Normal [facility] Comment on above: Order Comment: Speci men Type: BLOOD SPECIMENOrdering Facility: [facility] Address: [address] [place] [address] Performed By: #### 5 7021-8 ####[facility] [id number] [address] [place] Lymphocytes (Bld) [#/Vol] 2.96 10*3/uL Normal 1.00-4.00 [facility] Comment on above: Order Comment: Speci men Type: BLOOD SPECIMENOrdering Facility: [facility] Address: [address] [place] [address] Performed By: #### 5 7021-8 ####[facility] [id number] [address] [place] [facility] Lymphocytes/100 WBC (Bld) 20.6 % Normal [facility] Comment on above: Order Comment: Speci men Type: BLOOD SPECIMENOrdering Facility: [facility] Address: [address] [place] [address] Performed By: #### 5 7021-8 ####[facility] [id number] [address] [place] MCH (RBC) [Entitic mass] 30.2 pg Normal 26.0-34.0 [facility] Comment on above: Order Comment: Speci men Type: BLOOD SPECIMENOrdering Facility: [facility] Address: [address] [place], [place] [address] Performed By: #### 5 7021-8 ####[facility] [id number] [address] [place] MCHC (RBC) [Mass/Vol] 33.1 g/dL Normal 30.5-36.0 [facility] Comment on above: Order Comment: Speci men Type: BLOOD SPECIMENOrdering Facility: [facility] Address: [address] [place], [place] [address] Performed By: #### 5 7021-8 ####[facility] [id number] [address] [place] MCV (RBC) [Entitic vol] 91.2 fL Normal 80.0-100.0 [facility] Comment on above: Order Comment: Speci men Type: BLOOD SPECIMENOrdering Facility: [facility] Address: [address] Performed By: #### 5 7021-8 ####[facility] [id number] [place] [address] [place] Monocytes (Bld) [#/Vol] 1.46 10*3/uL High <0.87 [facility] Comment on above: Order Comment: Speci men Type: BLOOD SPECIMENOrdering Facility: [facility] Address: [address] Performed By: #### 5 7021-8 ####[facility] [id number] [place] [address] [place] Monocytes/100 WBC (Bld) 10.2 % Normal [facility] Comment on above: Order Comment: Speci men Type: BLOOD SPECIMENOrdering Facility: [facility] Address: [address] Performed By: #### 5 7021-8 ####[facility] [id number] [place] [address] [place] Neutrophils (Bld) [#/Vol] 9.86 10*3/uL High 1.45-7.50 [facility] Comment on above: Order Comment: Speci men Type: BLOOD SPECIMENOrdering Facility: [facility] Address: [address] Performed By: #### 5 7021-8 ####[facility] [id number] [place] [address] [place] Neutrophils/100 WBC (Bld) 68.5 % Normal [facility] Comment on above: Order Comment: Speci men Type: BLOOD SPECIMENOrdering Facility: [facility] Address: [address] Performed By: #### 5 7021-8 ####[facility] [id number] [place] [address] [place] Nucleated RBC (Bld) [#/Vol] 10*3/uL Normal <0.01 [facility] Comment on above: Order Comment: Speci men Type: BLOOD SPECIMENOrdering Facility: [facility] Address: [address] [place] [address] Performed By: #### 5 7021-8 ####[facility] [id number] [place] [address] [place] Nucleated RBC/100 WBC (Bld) [Ratio] 0.0 /100 WBC Normal [facility] Comment on above: Order Comment: Speci men Type: BLOOD SPECIMENOrdering Facility: [facility] Address: [address] [place], [place] [address] Performed By: #### 5 7021-8 ####[facility] [id number] [place] [address] [place] Platelet mean volume (Bld) [Entitic vol] 10.1 fL Normal 9.0-12.7 [facility] Comment on above: Order Comment: Speci men Type: BLOOD SPECIMENOrdering Facility: [facility] Address: [address] [place], [place] [address] Performed By: #### 5 7021-8 ####[facility] [id number] [place] [address] [place] Platelets (Bld) [#/Vol] 142 10*3/uL Low 150-400 [facility] Comment on above: Order Comment: Speci men Type: BLOOD SPECIMENOrdering Facility: [facility] Address: [address] [place], [place] [address] Performed By: #### 5 7021-8 ####[facility] [id number] [place] [address] [place] RBC (Bld) [#/Vol] 4.11 10*6/uL Low 4.20-6.00 [facility] Comment on above: Order Comment: Speci men Type: BLOOD SPECIMENOrdering Facility: [facility] Address: [address] [place] [address] Performed By: #### 5 7021-8 ####[facility] [id number] [place] [address] [place] WBC (Bld) [#/Vol] 14.37 10*3/uL High 3.70-11.00 [facility] Comment on above: Order Comment: Speci men Type: BLOOD SPECIMENOrdering Facility: [facility] Address: [address] [place] [address] Performed By: #### 5 7021-8 ####[facility] LABCLIA [id number] [place] [address] [place] CK SerPl-cCncon 06-22-2023 CK [Catalytic activity/Vol] 288 U/L Normal 51-298 [facility] Comment on above: Order Comment: Speci men Type: BLOOD SPECIMENOrdering Facility: [facility] Address: [address] [place] [address] Performed By: #### 2 157-6, 94763-7, 42439-3, 2777-1 ####[facility] LABIA [id number] [place] [address] [place] CONSULTon 06-22-2023 CONSULT Normal [facility] CONSULT PROGon 06-22-2023 CONSULT PROG Normal [facility] CT BRAIN WO IVCONon 06-22-20 CT BRAIN WO IVCON Normal [facility] Calcium.ionized [Moles/Vol]o n 06-22-2023 Calcium.ionized (Bld) [Mass/Vol] 1.31 mmol/L High 1.08-1.30 [facility] Comment on above: Order Comment: Speci men Type: BLOOD SPECIMENOrdering Facility: [facility] Address: [address] [place] [address] Performed By: #### 1 995-0 ####[facility] LABIA [id number] [place] [address] [place] Calcium.ionized adjusted to pH 7.4 (Bld) [Moles/Vol] 1.38 mmol/L High 1.08-1.30 [facility] Comment on above: Order Comment: Speci men Type: BLOOD SPECIMENOrdering Facility: [facility] Address: [address] [place] [address] Performed By: #### 1 995-0 ####[facility] LABIA [id number] [place] [address] [place] [facility] [place] Comprehensive metabolic 2000 panelon 06-22-2023 Albumin [Mass/Vol] 3.9 g/dL Normal 3.9-4.9 [facility] Comment on above: Order Comment: Speci men Type: BLOOD SPECIMENOrdering Facility: [facility] Address: [address] [place] [address] Performed By: #### 2 157-6, 53673-0, 15769-1, 2777-1 ####[facility] LABIA [id number] [address] [place] ALP [Catalytic activity/Vol] 73 U/L Normal 38-113 [facility] Comment on above: Order Comment: Speci men Type: BLOOD SPECIMENOrdering Facility: [facility] Address: [address] [place], [place] [address] Performed By: #### 2 157-6, 85656-0, 02194-8, 2777-1 ####[facility] LABIA [id number] [address] [place] ALT [Catalytic activity/Vol] 12 U/L Normal 10-54 [facility] Comment on above: Order Comment: Speci men Type: BLOOD SPECIMENOrdering Facility: [facility] Address: [address], [place] [address] Performed By: #### 2 157-6, 92126-6, 87962-9, 2777- ####[facility] LABCLIA [id number] [place] [address] [place] Anion gap [Moles/Vol] 8 mmol/L Low 9-18 [facility] Comment on above: Order Comment: Speci men Type: BLOOD SPECIMENOrdering Facility: [facility] Address: [address] [place], [place] [address] Performed By: #### 2 157-6, 63170-6, 14444-7, 2777- ####[facility] LABCLIA [id number] [place] [address] [place] AST [Catalytic activity/Vol] 13 U/L Low 14-40 [facility] Comment on above: Order Comment: Speci men Type: BLOOD SPECIMENOrdering Facility: [facility] Address: [address] [place], [place] [address] Performed By: #### 2 157-6, 18096-5, 26975-7, 2777- ####[facility]CLIA [id number] [place] [address] [place] Bilirubin [Mass/Vol] 0.5 mg/dL Normal 0.2-1.3 [facility] Comment on above: Order Comment: Speci men Type: BLOOD SPECIMENOrdering Facility: [facility] Address: [address] [place], [place] [address] Performed By: #### 2 157-6, 28259-2, 28737-3, 2777- ####[facility] LABCLIA [id number] [place] [address] [place] Calcium [Mass/Vol] 10.0 mg/dL Normal 8.5-10.2 [facility] Comment on above: Order Comment: Speci men Type: BLOOD SPECIMENOrdering Facility: [facility] Address: [address] [place], [place] [address] Performed By: #### 2 157-6, 34023-0, 71619-3, 2777-1 ####[facility] LABCLIA [id number] [place] [address] [place] Chloride [Moles/Vol] 107 mmol/L High 97-105 [facility] Comment on above: Order Comment: Speci men Type: BLOOD SPECIMENOrdering Facility: [facility] Address: [address] [place] [address] Performed By: #### 2 157-6, 42147-7, 49923-9, 2777-1 ####[facility] LABCLIA [id number] [place] [address] [place] CO2 [Moles/Vol] 24 mmol/L Normal 22-30 [facility] Comment on above: Order Comment: Speci men Type: BLOOD SPECIMENOrdering Facility: [facility] Address: [address] [place] [address] Performed By: #### 2 157-6, 72214-8, 78387-9, 2777-1 ####[facility] LABIA [id number] [place] [address] [place] Creatinine [Mass/Vol] 1.40 mg/dL High 0.73-1.22 [facility] Comment on above: Order Comment: Speci men Type: BLOOD SPECIMENOrdering Facility: [facility] Address: [address] [place] [address] Performed By: #### 2 157-6, 17530-6, 79170-3, 2777-1 ####[facility] LABCLIA [id number] [place] [address] [place] Creatinine and Glomerular filtration rate.predicted panel (S/P/Bld) 59 mL/min/1.73m??? Low >=60 [facility] Comment on above: Order Comment: Speci men Type: BLOOD SPECIMENOrdering Facility: [facility] Address: [address] [place] [address] Result Comment: Dayan mated Glomerular Filtration Rate (eGFR) is calculated using the 2020 CKD-EPI creatinine equation. This equation utilizes serum creatinine, sex, and age as parameters. The creatinine assay has traceable calibration to isotope dilution-mass spectrometry. Refer to KDIGO guidelines for clinical interpretation. In patients with unstable renal function, e.g. those with acute kidney injury, the eGFR may not accurately reflect actual GFR. Performed By: #### 2 157-6, 78460-8, 96152-6, 2776- ####[facility] LABCLIA [id number] [address] [address] [place] Glucose [Mass/Vol] 121 mg/dL High 74-99 [facility] Comment on above: Order Comment: Iesha marin Type: BLOOD SPECIMENOrdering Facility: [facility] Address: [address] [place] [address] Result Comment: The [place] Diabetes Association (ADA) provides guidance for cutoff values for fasting glucose and random glucose. The ADA defines fasting as no caloric intake for at least 8 hours. Fasting plasma glucose results between 100 to 125 mg/dL indicate increased risk for diabetes (prediabetes).Fasting plasma glucose results greater than or equal to 126 mg/dL meet the criteria for diagnosis of diabetes. In the absence of unequivocal hyperglycemia, results should be confirmed by repeat testing. In a patient with classic symptoms of hyperglycemia or hyperglycemic crisis, random plasma glucose results greater than or equal to 200 mg/dL meet the criteria for diagnosis of diabetes.Reference: Standards of Medical Care in Diabetes 2016, [place] [employer] Association. Diabetes Care. 2016.39(Suppl 1). Performed By: #### 2 157-6, 70934-6, 05594-7, 2776-10 ####[facility] LABIA [id number] [address] [address] [place] Potassium [Moles/Vol] 4.4 mmol/L Normal 3.7-5.1 [facility] Comment on above: Order Comment: Speci men Type: BLOOD SPECIMENOrdering Facility: [facility] Address: [address] [place] [address] Performed By: #### 2 157-6, 49438-5, 72444-7, 2777-1 ####[facility] LABIA [id number] [place] [address] [place] Protein [Mass/Vol] 6.5 g/dL Normal 6.3-8.0 [facility] Comment on above: Order Comment: Speci men Type: BLOOD SPECIMENOrdering Facility: [facility] Address: [address] [place] [address] Performed By: #### 2 157-6, 07263-2, 33131-0, 2777-1 ####[facility] [id number] [place] [address] [place] Sodium [Moles/Vol] 139 mmol/L Normal 136-144 [facility] Comment on above: Order Comment: Speci men Type: BLOOD SPECIMENOrdering Facility: [facility] Address: [address] [place] [address] Performed By: #### 2 157-6, 56723-5, 66072-0, 2777-1 ####[facility] [id number] [place] [address] [place] Urea nitrogen [Mass/Vol] 16 mg/dL Normal 9-24 [facility] Comment on above: Order Comment: Speci men Type: BLOOD SPECIMENOrdering Facility: [facility] Address: [address] [place] [address] Performed By: #### 2 157-6, 38148-3, 69032-4, 2777-1 ####[facility] [id number] [place] [address] [place] Magnesium SerPl-mCncon 06-22 Magnesium [Mass/Vol] 2.1 mg/dL Normal 1.7-2.3 [facility] Comment on above: Order Comment: Speci men Type: BLOOD SPECIMENOrdering Facility: [facility] Address: [address] [place], [place] [address] [address] Performed By: #### 2 157-6, 28358-3, 67270-2, 2777-1 ####[facility] LABCLIA [id number] [address] [address] [place] NUTRITIONon 06-22-2023 NUTRITION Normal [facility] Phosphate SerPl-ncon 06-22 Phosphate [Mass/Vol] 2.6 mg/dL Low 2.7-4.8 [facility] Comment on above: Order Comment: Speci men Type: BLOOD SPECIMENOrdering Facility: [facility] Address: [address] [place], [place] [address] Performed By: #### 2 157-6, 96154-6, 44439-8, 2777-1 ####[facility] LABCLIA [id number] [place] [address] [place] [facility] Tacrolimus (Bld) [Mass/Vol] 3.8 ng/mL Low 5.0-20.0 [facility] Comment on above: Order Comment: Speci men Type: BLOOD SPECIMENOrdering Facility: [facility] Address: [address] [place], [place] [address] Result Comment: Nayely vidualized target levels for a given patient will depend on many factors (including the type of organ transplant, time since transplantation, concurrent medications, and other clinical factors), and should be assessed by those health care providers experienced in the management of immunosuppression. Reference ranges and high/low indicator flags are provided as general guidelines only. The treating physician must determine appropriate target levels/dosing based on the specific clinical situation. Test performed by chemiluminescent immunoassay using [employer] i. Performed By: #### 1 1253-2 ####[facility] LABCLIA [id number] [place] [id number] [place] ANES POSTPROC EVALon 023 ANES POSTPROC EVAL Normal [facility] Bacteria Spec Resp Culton Bacteria identified Respiratory culture Nom (Unsp spec) ORGANISM ID: 1 Few normal respiratory elise GRAM STAIN: Few Mixed oral elise Many Polymorphonuclear leukocytes Abnormal [facility] Comment on above: Performed By: #### 3 2355-0 ####[facility] LABCLIA [id number] [place] [address] [place] Basic metabolic 2000 panelon 06-21-2023 Anion gap [Moles/Vol] 12 mmol/L Normal 9-18 [facility] Comment on above: Order Comment: Speci men Type: BLOOD SPECIMENOrdering Facility: [facility] Address: [address] [place] [address] Performed By: #### 2 4321-2 ####[facility] LABCLIA [id number] [place] [address] [place] Calcium [Mass/Vol] 9.6 mg/dL Normal 8.5-10.2 [facility] Comment on above: Order Comment: Speci men Type: BLOOD SPECIMENOrdering Facility: [facility] Address: [address] [place] [address] Performed By: #### 2 4321-2 ####[facility] LABCLIA [id number] [place] [address] [place] Chloride [Moles/Vol] 108 mmol/L High 97-105 [facility] Comment on above: Order Comment: Speci men Type: BLOOD SPECIMENOrdering Facility: [facility] Address: [address] Performed By: #### 2 4321-2 ####[facility] LABCLIA [id number] [place] [address] [place] CO2 [Moles/Vol] 19 mmol/L Low 22-30 [facility] Comment on above: Order Comment: Speci men Type: BLOOD SPECIMENOrdering Facility: [facility] Address: [address] Performed By: #### 2 4321-2 ####[facility] LABIA [id number] [address] STATES OF [facility] Creatinine [Mass/Vol] 1.24 mg/dL High 0.73-1.22 [facility] Comment on above: Order Comment: Speci men Type: BLOOD SPECIMENOrdering Facility: [facility] Address: [address] [place] [address] Performed By: #### 2 4321-2 ####[facility] LABIA [id number] [address] OF [facility] Creatinine and Glomerular filtration rate.predicted panel (S/P/Bld) 68 mL/min/1.73m??? Normal >=60 [facility] Comment on above: Order Comment: Speci men Type: BLOOD SPECIMENOrdering Facility: [facility] Address: [address] [place] [address] Result Comment: Dayan mated Glomerular Filtration Rate (eGFR) is calculated using the 2020 CKD-EPI creatinine equation. This equation utilizes serum creatinine, sex, and age as parameters. The creatinine assay has traceable calibration to isotope dilution-mass spectrometry. Refer to KDIGO guidelines for clinical interpretation. In patients with unstable renal function, e.g. those with acute kidney injury, the eGFR may not accurately reflect actual GFR. Performed By: #### 2 4321-2 ####[facility] LABIA [id number] [place] [address] [place] Glucose [Mass/Vol] 139 mg/dL High 74-99 [facility] Comment on above: Order Comment: Speci men Type: BLOOD SPECIMENOrdering Facility: [facility] Address: [address] [place] [address] Result Comment: The [place] Diabetes Association (ADA) provides guidance for cutoff values for fasting glucose and random glucose. The ADA defines fasting as no caloric intake for at least 8 hours. Fasting plasma glucose results between 100 to 125 mg/dL indicate increased risk for diabetes (prediabetes).Fasting plasma glucose results greater than or equal to 126 mg/dL meet the criteria for diagnosis of diabetes. In the absence of unequivocal hyperglycemia, results should be confirmed by repeat testing. In a patient with classic symptoms of hyperglycemia or hyperglycemic crisis, random plasma glucose results greater than or equal to 200 mg/dL meet the criteria for diagnosis of diabetes.Reference: Standards of Medical Care in Diabetes 2016, [place] [employer]. Diabetes Care. 2016.39(Suppl 1). Performed By: #### 2 4321-2 ####[facility] LABCLIA [id number] [place] [address] [place] Potassium [Moles/Vol] Normal [facility] Comment on above: Order Comment: Iesha marin Type: BLOOD SPECIMENOrdering Facility: [facility] Address: [address] [place] [address] Result Comment: Unab le to assay due to interference from hemolysis. Suggest reorder as clinically indicated. Performed By: #### 2 4321-2 ####[facility] LABIA [id number] [place] [address] [place] Sodium [Moles/Vol] 139 mmol/L Normal 136-144 [facility] Comment on above: Order Comment: Iesha marin Type: BLOOD SPECIMENOrdering Facility: [facility] Address: [address] [place] [address] Performed By: #### 2 4321-2 ####[facility] LABIA [id number] [place] [address] [place] Urea nitrogen [Mass/Vol] 14 mg/dL Normal 9-24 [facility] Comment on above: Order Comment: Iesha marin Type: BLOOD SPECIMENOrdering Facility: [facility] Address: [address] [place] [address] Performed By: #### 2 4321-2 ####[facility] LABIA [id number] [place] [address] [place] CBC W Auto Differential pane l (Bld)on 06-21-2023 Basophils (Bld) [#/Vol] 10*3/uL Normal <0.11 [facility] Comment on above: Order Comment: Speci men Type: BLOOD SPECIMENOrdering Facility: [facility] Address: [address] Performed By: #### 5 7021-8 ####[facility] LABCLIA [id number] [place] [address] [place] Basophils/100 WBC (Bld) 0.1 % Normal [facility] Comment on above: Order Comment: Speci men Type: BLOOD SPECIMENOrdering Facility: [facility] Address: [address] Performed By: #### 5 7021-8 ####[facility] LABCLIA [id number] [place] [address] [place] Differential cell count method Nom (Bld) Auto Normal [facility] Comment on above: Order Comment: Speci men Type: BLOOD SPECIMENOrdering Facility: [facility] Address: [address] Performed By: #### 5 7021-8 ####[facility]CLIA [id number] [place] [address] [place] Eosinophils (Bld) [#/Vol] 10*3/uL Normal <0.46 [facility] Comment on above: Order Comment: Speci men Type: BLOOD SPECIMENOrdering Facility: [facility] Address: [address] Performed By: #### 5 7021-8 ####[facility] LABCLIA [id number] [address] [place] Eosinophils/100 WBC (Bld) 0.0 % Normal [facility] Comment on above: Order Comment: Speci men Type: BLOOD SPECIMENOrdering Facility: [facility] Address: [address] Performed By: #### 5 7021-8 ####[facility] LABIA [id number] [place] [address] [place] Erythrocyte distribution width (RBC) [Ratio] 13.0 % Normal 11.5-15.0 [facility] Comment on above: Order Comment: Speci men Type: BLOOD SPECIMENOrdering Facility: [facility] Address: [address] [place] [address] Performed By: #### 5 7021-8 ####[facility] LABIA [id number] [place] [address] [place] Hematocrit (Bld) [Volume fraction] 39.4 % Normal 39.0-51.0 [facility] Comment on above: Order Comment: Speci men Type: BLOOD SPECIMENOrdering Facility: [facility] Address: [address] [place] [address] Performed By: #### 5 7021-8 ####[facility] [id number] [place] [address] [place] Hemoglobin (Bld) [Mass/Vol] 13.1 g/dL Normal 13.0-17.0 [facility] Comment on above: Order Comment: Speci men Type: BLOOD SPECIMENOrdering Facility: [facility] Address: [address] [place] [address] Performed By: #### 5 7021-8 ####[facility] LABIA [id number] [place] [address] [place] Immature granulocytes (Bld) [#/Vol] 0.04 10*3/uL Normal <0.10 [facility] Comment on above: Order Comment: Speci men Type: BLOOD SPECIMENOrdering Facility: [facility] Address: [address] [place], [place] [address] Performed By: #### 5 7021-8 ####[facility] LABIA [id number] [place] [address] [place] Immature granulocytes/100 WBC (Bld) 0.4 % Normal [facility] Comment on above: Order Comment: Speci men Type: BLOOD SPECIMENOrdering Facility: [facility] Address: [address] [place] [address] Performed By: #### 5 7021-8 ####[facility]CLIA [id number] [place] [address] [place] Lymphocytes (Bld) [#/Vol] 0.94 10*3/uL Low 1.00-4.00 [facility] Comment on above: Order Comment: Speci men Type: BLOOD SPECIMENOrdering Facility: [facility] Address: [address] [place] [address] Performed By: #### 5 7021-8 ####[facility]CLIA [id number] [place] [address] [place] Lymphocytes/100 WBC (Bld) 10.3 % Normal [facility] Comment on above: Order Comment: Speci men Type: BLOOD SPECIMENOrdering Facility: [facility] Address: [address] [place] [address] Performed By: #### 5 7021-8 ####[facility]CLIA [id number] [place] [address] [place] MCH (RBC) [Entitic mass] 30.5 pg Normal 26.0-34.0 [facility] Comment on above: Order Comment: Speci men Type: BLOOD SPECIMENOrdering Facility: [facility] Address: [address] [place], [place] [address] Performed By: #### 5 7021-8 ####[facility]CLIA [id number] [place] [address] [place] MCHC (RBC) [Mass/Vol] 33.2 g/dL Normal 30.5-36.0 [facility] Comment on above: Order Comment: Speci men Type: BLOOD SPECIMENOrdering Facility: [facility] Address: [address] [place] [address] Performed By: #### 5 7021-8 ####[facility]IA [id number] [place] [address] [place] MCV (RBC) [Entitic vol] 91.6 fL Normal 80.0-100.0 [facility] Comment on above: Order Comment: Speci men Type: BLOOD SPECIMENOrdering Facility: [facility] Address: [address] Performed By: #### 5 7021-8 ####[facility]IA [id number] [place] [address] [place] Monocytes (Bld) [#/Vol] 0.34 10*3/uL Normal <0.87 [facility] Comment on above: Order Comment: Speci men Type: BLOOD SPECIMENOrdering Facility: [facility] Address: [address] Performed By: #### 5 7021-8 ####[facility] [id number] [place] [address] [place] Monocytes/100 WBC (Bld) 3.7 % Normal [facility] Comment on above: Order Comment: Speci men Type: BLOOD SPECIMENOrdering Facility: [facility] Address: [address] [place] [address] Performed By: #### 5 7021-8 ####[facility]IA [id number] [place] [address] [place] Neutrophils (Bld) [#/Vol] 7.78 10*3/uL High 1.45-7.50 [facility] Comment on above: Order Comment: Speci men Type: BLOOD SPECIMENOrdering Facility: [facility] Address: [address] Performed By: #### 5 7021-8 ####[facility] [id number] [place] [address] [place] Neutrophils/100 WBC (Bld) 85.5 % Normal [facility] Comment on above: Order Comment: Speci men Type: BLOOD SPECIMENOrdering Facility: [facility] Address: [address] [place], [place] [address] Performed By: #### 5 7021-8 ####[facility] [id number] [place] [address] [place] Nucleated RBC (Bld) [#/Vol] 10*3/uL Normal <0.01 [facility] Comment on above: Order Comment: Speci men Type: BLOOD SPECIMENOrdering Facility: [facility] Address: [address] [place], [place] [address] Performed By: #### 5 7021-8 ####[facility] [id number] [place] [address] [place] Nucleated RBC/100 WBC (Bld) [Ratio] 0.0 /100 WBC Normal [facility] Comment on above: Order Comment: Speci men Type: BLOOD SPECIMENOrdering Facility: [facility] Address: [address] [place], [place] [address] Performed By: #### 5 7021-8 ####[facility] [id number] [place] [address] [place] Platelet mean volume (Bld) [Entitic vol] 9.8 fL Normal 9.0-12.7 [facility] Comment on above: Order Comment: Speci men Type: BLOOD SPECIMENOrdering Facility: [facility] Address: [address] [place], [place] [address] Performed By: #### 5 7021-8 ####[facility] [id number] [place] [address] [place] Platelets (Bld) [#/Vol] 142 10*3/uL Low 150-400 [facility] Comment on above: Order Comment: Speci men Type: BLOOD SPECIMENOrdering Facility: [facility] Address: [address] [place], [place] [address] Performed By: #### 5 7021-8 ####[facility] LABIA [id number] [place] [address] [place] RBC (Bld) [#/Vol] 4.30 10*6/uL Normal 4.20-6.00 [facility] Comment on above: Order Comment: Speci men Type: BLOOD SPECIMENOrdering Facility: [facility] Address: [address] [place] [address] Performed By: #### 5 7021-8 ####[facility]IA [id number] [place] [address] [place] WBC (Bld) [#/Vol] 9.11 10*3/uL Normal 3.70-11.00 [facility] Comment on above: Order Comment: Speci men Type: BLOOD SPECIMENOrdering Facility: [facility] Address: [address] [place] [address] Performed By: #### 5 7021-8 ####[facility] [id number] [place] [address] [place] Calcium.ionized [Moles/Vol]o n 06-21-2023 Calcium.ionized (Bld) [Mass/Vol] 1.26 mmol/L Normal 1.08-1.30 [facility] Comment on above: Order Comment: Speci men Type: BLOOD SPECIMENOrdering Facility: [facility] Address: [address] [place], [place] [address] Performed By: #### 1 995-0 ####[facility]IA [id number] [place] [address] [place] Calcium.ionized adjusted to pH 7.4 (Bld) [Moles/Vol] 1.20 mmol/L Normal 1.08-1.30 [facility] Comment on above: Order Comment: Speci men Type: BLOOD SPECIMENOrdering Facility: [facility] Address: [address] [place], [place] [address] Performed By: #### 1 995-0 ####[facility] LABCLIA [id number] [place] [address] [place] Comprehensive metabolic 2000 panelon 06-21-2023 Albumin [Mass/Vol] 3.5 g/dL Low 3.9-4.9 [facility] Comment on above: Order Comment: Speci men Type: BLOOD SPECIMENOrdering Facility: [facility] Address: [address] [place], [place] [address] Result Comment: Resu lt rechecked. Performed By: #### 1 9123-9, 2777-, 68189-9 ####[facility] LABCLIA [id number] [place] [address] [place] ALP [Catalytic activity/Vol] 72 U/L Normal 38-113 [facility] Comment on above: Order Comment: Speci men Type: BLOOD SPECIMENOrdering Facility: [facility] Address: [address] [place], [place] [address] Performed By: #### 1 9123-9, 2777-, 80547-2 ####[facility] LABCLIA [id number] [place] [address] [place] ALT [Catalytic activity/Vol] 14 U/L Normal 10-54 [facility] Comment on above: Order Comment: Speci men Type: BLOOD SPECIMENOrdering Facility: [facility] Address: [address] [place], [place] [address] Performed By: #### 1 9123-9, 2777-, 66284-1 ####[facility] LABCLIA [id number] [place] [address] [place] Anion gap [Moles/Vol] 11 mmol/L Normal 9-18 [facility] Comment on above: Order Comment: Speci men Type: BLOOD SPECIMENOrdering Facility: [facility] Address: [address] [place] [address] Performed By: #### 1 9123-9, 2777-, 05483-9 ####[facility] LABCLIA [id number] [place] [address] [place] AST [Catalytic activity/Vol] 19 U/L Normal 14-40 [facility] Comment on above: Order Comment: Speci men Type: BLOOD SPECIMENOrdering Facility: [facility] Address: [address] [place], [place] [address] Performed By: #### 1 9123-9, 277-, 99844-0 ####[facility] LABCLIA [id number] [place] [address] [place] Bilirubin [Mass/Vol] 0.6 mg/dL Normal 0.2-1.3 [facility] Comment on above: Order Comment: Speci men Type: BLOOD SPECIMENOrdering Facility: [facility] Address: [address] [place], [place] [address] Performed By: #### 1 9123-9, 27704-09, ####[facility] LABCLIA [id number] [place] [address] [place] Calcium [Mass/Vol] 8.9 mg/dL Normal 8.5-10.2 [facility] Comment on above: Order Comment: Speci men Type: BLOOD SPECIMENOrdering Facility: [facility] Address: [address] [place] [address] Result Comment: Resu lt rechecked. Performed By: #### 1 9123-9, 277-, 23255-1 ####[facility] LABCLIA [id number] [place] [address] [place] Chloride [Moles/Vol] 109 mmol/L High 97-105 [facility] Comment on above: Order Comment: Speci men Type: BLOOD SPECIMENOrdering Facility: [facility] Address: [address] [address] Performed By: #### 1 9123-9, 2777, ####[facility]IA [id number] [place] [address] [place] CO2 [Moles/Vol] 20 mmol/L Low 22-30 [facility] Comment on above: Order Comment: Speci men Type: BLOOD SPECIMENOrdering Facility: [facility] Address: [address] [place] [address] Performed By: #### 1 9123-9, 27704-09, ####[facility]IA [id number] [place] [address] [place] Creatinine [Mass/Vol] 1.34 mg/dL High 0.73-1.22 [facility] Comment on above: Order Comment: Speci men Type: BLOOD SPECIMENOrdering Facility: [facility] Address: [address] [place] [address] Performed By: #### 1 9123-9, 2776-10, ####[facility]IA [id number] [address] [place] Creatinine and Glomerular filtration rate.predicted panel (S/P/Bld) 62 mL/min/1.73m??? Normal >=60 [facility] Comment on above: Order Comment: Speci men Type: BLOOD SPECIMENOrdering Facility: [facility] Address: [address] [place] [address] Result Comment: Dayan mated Glomerular Filtration Rate (eGFR) is calculated using the 2020 CKD-EPI creatinine equation. This equation utilizes serum creatinine, sex, and age as parameters. The creatinine assay has traceable calibration to isotope dilution-mass spectrometry. Refer to KDIGO guidelines for clinical interpretation. In patients with unstable renal function, e.g. those with acute kidney injury, the eGFR may not accurately reflect actual GFR. Performed By: #### 1 9123-9, 27704-09, 56266-6 ####[facility] LABCLIA [id number] [place] [address] [place] Glucose [Mass/Vol] 160 mg/dL High 74-99 [facility] Comment on above: Order Comment: Speci men Type: BLOOD SPECIMENOrdering Facility: [facility] Address: [address] [address] Result Comment: The [place] Diabetes Association (ADA) provides guidance for cutoff values for fasting glucose and random glucose. The ADA defines fasting as no caloric intake for at least 8 hours. Fasting plasma glucose results between 100 to 125 mg/dL indicate increased risk for diabetes (prediabetes).Fasting plasma glucose results greater than or equal to 126 mg/dL meet the criteria for diagnosis of diabetes. In the absence of unequivocal hyperglycemia, results should be confirmed by repeat testing. In a patient with classic symptoms of hyperglycemia or hyperglycemic crisis, random plasma glucose results greater than or equal to 200 mg/dL meet the criteria for diagnosis of diabetes.Reference: Standards of Medical Care in Diabetes 2016, [place] [employer]. Diabetes Care. 2016.39(Suppl 1). Performed By: #### 1 9123-9, 2777-1, 08498-4 ####[facility]IA [id number] [place] [address] [place] Potassium [Moles/Vol] 5.4 mmol/L High 3.7-5.1 [facility] Comment on above: Order Comment: Speci men Type: BLOOD SPECIMENOrdering Facility: [facility] Address: [address] [id number] Performed By: #### 1 9123-9, 2777-1, 46275-6 ####[facility] LABIA [id number] [place] [id number] [place] Protein [Mass/Vol] 5.8 g/dL Low 6.3-8.0 [facility] Comment on above: Order Comment: Speci men Type: BLOOD SPECIMENOrdering Facility: [facility] Address: [address] [id number] Result Comment: Resu lt rechecked. Performed By: #### 1 9123-9, 2777-1, 27584-3 ####[facility] LABCLIA [id number] [place] [address] [place] Sodium [Moles/Vol] 140 mmol/L Normal 136-144 [facility] Comment on above: Order Comment: Speci men Type: BLOOD SPECIMENOrdering Facility: [facility] Address: [address] [place] [address] Performed By: #### 1 9123-9, 2777-1, 76569-6 ####[facility]IA [id number] [place] [address] [place] Urea nitrogen [Mass/Vol] 13 mg/dL Normal 9-24 [facility] Comment on above: Order Comment: Speci men Type: BLOOD SPECIMENOrdering Facility: [facility] Address: [address] [place] [address] Performed By: #### 1 9123-9, 2777-1, 82469-6 ####[facility]IA [id number] [place] [address] [place] Lactate (Bld) [Moles/Vol]on 06-21-2023 Lactate [Moles/Vol] 0.9 mmol/L Normal 0.5-2.2 [facility] Comment on above: Order Comment: Speci men Type: BLOOD SPECIMENOrdering Facility: [facility] Address: [address] [place] [address] Performed By: #### 3 2693-4 ####[facility] [id number] [place] [address] [place] Magnesium SerPl-mCncon 06-21 Magnesium [Mass/Vol] 1.4 mg/dL Low 1.7-2.3 [facility] Comment on above: Order Comment: Speci men Type: BLOOD SPECIMENOrdering Facility: [facility] Address: [address] [address] Performed By: #### 1 9123-9, 2777-1, 62413-4 ####[facility]IA [id number] [place] [address] [place] POTASSIUM BLDon 06-21-2023 Potassium [Moles/Vol] 4.8 mmol/L Normal 3.7-5.1 [facility] Comment on above: Order Comment: Speci men Type: BLOOD SPECIMENOrdering Facility: [facility] Address: [address] [place] [address] Performed By: #### K 1 ####[facility] [id number] [place] [address] [place] PT panel Coag (PPP)on 2022 INR Coag (PPP) [Relative time] 1.0 {INR} Normal 0.9-1.3 [facility] Comment on above: Order Comment: Speci tania Type: BLOOD SPECIMENOrdering Facility: [facility] Address: [address] [place] [address] Result Comment: Ella min K Antagonist (VKA) Therapeutic Range: INR 2 to 3 (Target INR of 2.5)Note: For patients treated with VKA drugs, such as warfarin, the [place] [employer] 2012 Guideline recommends a therapeutic INR range of 2 to 3 (target INR of 2.5). This recommendation includes high-risk patients with antiphospholipid syndrome with previous arterial or venous thromboembolism, current-generation mechanical or bioprosthetic aortic heart valve replacement.Note: Patients with mechanical aortic valve replacement and additional risk factors for thromboembolic events (atrial fibrillation, previous thromboembolism, LV dysfunction, hypercoagulable conditions) or an older generation mechanical AVR (i.e., ball in-Cage) or any mechanical MVR should have a INR therapeutic range of 2.5 to 3.5 (target INR of 3).Cee GERARD, et al. Chest 2012, 141:7S-47SNisharamis RA, et al. JACC 2017, 70: 252-289 Performed By: #### 1 4979-9, 67128-0 ####[facility] LABCLIA [id number] [place] [address] [place] PT Coag (PPP) [Time] 10.5 s Normal 9.7-13.0 [facility] Comment on above: Order Comment: Speci men Type: BLOOD SPECIMENOrdering Facility: [facility] Address: [address] [place] [address] Performed By: #### 1 4979-9, 92939-6 ####[facility] LABCLIA [id number] [place] [address] [place] Phosphate SerPl-mCncon 06-21 Phosphate [Mass/Vol] 1.9 mg/dL Low 2.7-4.8 [facility] Comment on above: Order Comment: Speci men Type: BLOOD SPECIMENOrdering Facility: [facility] Address: [address] [place] [place] [phone] Performed By: #### 1 9123-9, 2777-1, 37249-1 ####[facility]IA [id number] [place] [address] [place] XR ABDOMEN 1V SUPINEon 06-21 XR ABDOMEN 1V SUPINE Normal [facility] XR CHEST 1V FRONTAL PORTon 0 06-21-2023 XR CHEST 1V FRONTAL PORT Normal [facility] aPTT PPPon 06-21-2023 aPTT Coag (PPP) [Time] 24.4 s Normal 23.0-32.4 [facility] Comment on above: Order Comment: Speci men Type: BLOOD SPECIMENOrdering Facility: [facility] Address: [address] [place] [place] [id number] Performed By: #### 1 4979-9, 76468-2 ####[facility] LABCLIA [id number] [place] [id number] [place] ANES PRE-OPon 06-20-2023 ANES PRE-OP Normal [facility] ARTERIAL BLOOD GASESon 06-20 Base deficit (BldA) [Moles/Vol] -9 mmol/L Low -2-0 [facility] Comment on above: Order Comment: Speci men Type: ARTERIAL BLOOD SPECIMENOrdering Facility: [facility] Address: [address] [place] [address] Performed By: #### A LLBG ####[facility]IA [id number] [place] [address] [place] Body temperature 97.16 [degF] Normal [facility] Comment on above: Order Comment: Speci men Type: ARTERIAL BLOOD SPECIMENOrdering Facility: [facility] Address: [address] [place] [address] Performed By: #### A LLBG ####[facility]IA [id number] [place] [address] [place] Calcium.ionized (Bld) [Mass/Vol] 1.08 mmol/L Normal 1.08-1.30 [facility] Comment on above: Order Comment: Speci men Type: ARTERIAL BLOOD SPECIMENOrdering Facility: [facility] Address: [address] [place], [place] [address] Performed By: #### A LLBG ####[facility]IA [id number] [place] [address] [place] Calcium.ionized adjusted to pH 7.4 (BldA) [Moles/Vol] 1.04 mmol/L Low 1.08-1.30 [facility] Comment on above: Order Comment: Speci men Type: ARTERIAL BLOOD SPECIMENOrdering Facility: [facility] Address: [address] [place], [place] [address] Performed By: #### A LLBG ####[facility] LABCLIA [id number] [place] [address] [place] Carboxyhemoglobin (BldA) [Mass fraction] 0.2 % Normal 0.0-2.0 [facility] Comment on above: Order Comment: Speci men Type: ARTERIAL BLOOD SPECIMENOrdering Facility: [facility] Address: [address] [address] Result Comment: Carb oxyhemoglobin Reference Range for Smokers: 2.0-8.0% Performed By: #### A LLBG ####[facility]CLIA [id number] [address] [place] CO2 (Bld) [Partial pressure] 30 mm Hg Low 36-46 [facility] Comment on above: Order Comment: Speci men Type: ARTERIAL BLOOD SPECIMENOrdering Facility: [facility] Address: [address] [address] Performed By: #### A LLBG ####[facility] LABCLIA [id number] [place] [address] [place] CO2 adjusted to patient's actual temperature (Bld) [Partial pressure] 29 mmHg Low 36-46 [facility] Comment on above: Order Comment: Speci men Type: ARTERIAL BLOOD SPECIMENOrdering Facility: [facility] Address: [address] [address] Performed By: #### A LLBG ####[facility]CLIA [id number] [place] [address] [place] FIO2 40 % Normal [facility] Comment on above: Order Comment: Speci men Type: ARTERIAL BLOOD SPECIMENOrdering Facility: [facility] Address: [address] [address] Performed By: #### A LLBG ####[facility]CLIA [id number] [place] [address] [place] Glucose [Mass/Vol] 187 mg/dL High 60-105 [facility] Comment on above: Order Comment: Speci men Type: ARTERIAL BLOOD SPECIMENOrdering Facility: [facility] Address: [address] Performed By: #### A LLBG ####[facility] LABCLIA [id number] [place] [address] [place] HCO3 (Bld) [Moles/Vol] 16 mmol/L Low 22-26 [facility] Comment on above: Order Comment: Speci men Type: ARTERIAL BLOOD SPECIMENOrdering Facility: [facility] Address: [address] [place] [address] Performed By: #### A LLBG ####[facility] LABCLIA [id number] [place] [address] [place] Hematocrit (Bld) [Volume fraction] 35.9 % Low 39.0-51.0 [facility] Comment on above: Order Comment: Speci men Type: ARTERIAL BLOOD SPECIMENOrdering Facility: [facility] Address: [address] [place] [address] Performed By: #### A LLBG ####[facility] [id number] [place] [address] [place] Hemoglobin (Bld) [Mass/Vol] 11.6 g/dL Low 13.0-17.0 [facility] Comment on above: Order Comment: Speci men Type: ARTERIAL BLOOD SPECIMENOrdering Facility: [facility] Address: [address] [place], [place] [address] Performed By: #### A LLBG ####[facility] [id number] [place] [address] [place] Lactate [Moles/Vol] 4.7 mmol/L High 0.5-2.2 [facility] Comment on above: Order Comment: Speci men Type: ARTERIAL BLOOD SPECIMENOrdering Facility: [facility] Address: [address] [place], [place] [address] Performed By: #### A LLBG ####[facility] [id number] [place] [address] [place] Methemoglobin (Bld) [Mass fraction] 1.3 % Normal 0.0-1.5 [facility] Comment on above: Order Comment: Speci men Type: ARTERIAL BLOOD SPECIMENOrdering Facility: [facility] Address: [address] Performed By: #### A LLBG ####[facility]CLIA [id number] [place] [address] [place] MINUTE VENTILATION 11 L/min Normal [facility] Comment on above: Order Comment: Speci men Type: ARTERIAL BLOOD SPECIMENOrdering Facility: [facility] Address: [address] Performed By: #### A LLBG ####[facility]CLIA [id number] [place] [address] [place] O2 THERAPY Ventilator Normal [facility] Comment on above: Order Comment: Speci men Type: ARTERIAL BLOOD SPECIMENOrdering Facility: [facility] Address: [address] Performed By: #### A LLBG ####[facility]CLIA [id number] [place] [address] [place] Oxygen (Bld) [Partial pressure] 167 mm Hg High 85-95 [facility] Comment on above: Order Comment: Speci men Type: ARTERIAL BLOOD SPECIMENOrdering Facility: [facility] Address: [address] Performed By: #### A LLBG ####[facility]CLIA [id number] [place] [address] [place] Oxygen adjusted to patient's actual temperature (Bld) [Partial pressure] 163 mmHg High 85-95 [facility] Comment on above: Order Comment: Speci men Type: ARTERIAL BLOOD SPECIMENOrdering Facility: [facility] Address: [address] Performed By: #### A LLBG ####[facility]CLIA [id number] [place] [address] [place] Oxyhemoglobin (BldA) [Mass fraction] 97 % Normal 95-98 [facility] Comment on above: Order Comment: Speci men Type: ARTERIAL BLOOD SPECIMENOrdering Facility: [facility] Address: [address] [place] [address] Performed By: #### A LLBG ####[facility]CLIA [id number] [place] [address] [place] pH (Bld) 7.33 [pH] Low 7.35-7.45 [facility] Comment on above: Order Comment: Speci men Type: ARTERIAL BLOOD SPECIMENOrdering Facility: [facility] Address: [address] [place] [address] Performed By: #### A LLBG ####[facility]CLIA [id number] [address] [place] pH adjusted to patient's actual temperature (Bld) 7.34 Low 7.35-7.45 [facility] Comment on above: Order Comment: Speci men Type: ARTERIAL BLOOD SPECIMENOrdering Facility: [facility] Address: [address] [place], [place] [address] Performed By: #### A LLBG ####[facility]CL[facility] [id number] [place] [address] [place] PO2 / FIO2 RATIO 418 mmHg Normal >300 [facility] Comment on above: Order Comment: Speci men Type: ARTERIAL BLOOD SPECIMENOrdering Facility: [facility] Address: [address] [place], [place] [address] Performed By: #### A LLBG ####[facility]CLIA [id number] [place] [address] [place] Potassium [Moles/Vol] 4.0 mmol/L Normal 3.5-5.0 [facility] Comment on above: Order Comment: Speci men Type: ARTERIAL BLOOD SPECIMENOrdering Facility: [facility] Address: [address] [address] Performed By: #### A LLBG ####[facility]CLIA [id number] [place] [address] [place] Sodium [Moles/Vol] 141 mmol/L Normal 136-144 [facility] Comment on above: Order Comment: Speci men Type: ARTERIAL BLOOD SPECIMENOrdering Facility: [facility] Address: [address] [address] Performed By: #### A LLBG ####[facility] [id number] [place] [address] [place] Base deficit (BldA) [Moles/Vol] -5 mmol/L Low -2-0 [facility] Comment on above: Order Comment: Speci men Type: ARTERIAL BLOOD SPECIMENOrdering Facility: [facility] Address: [address] [address] Performed By: #### A LLBG ####[facility] [id number] [place] [address] [place] Body temperature 97.16 [degF] Normal [facility] Comment on above: Order Comment: Speci men Type: ARTERIAL BLOOD SPECIMENOrdering Facility: [facility] Address: [address] Performed By: #### A LLBG ####[facility]CLIA [id number] [place] [address] [place] Calcium.ionized (Bld) [Mass/Vol] 1.28 mmol/L Normal 1.08-1.30 [facility] Comment on above: Order Comment: Speci men Type: ARTERIAL BLOOD SPECIMENOrdering Facility: [facility] Address: [address] Performed By: #### A LLBG ####[facility]CLIA [id number] [place] [address] [place] Calcium.ionized adjusted to pH 7.4 (BldA) [Moles/Vol] 1.26 mmol/L Normal 1.08-1.30 [facility] Comment on above: Order Comment: Speci men Type: ARTERIAL BLOOD SPECIMENOrdering Facility: [facility] Address: [address] [place] [address] Performed By: #### A LLBG ####[facility]CL[facility] [id number] [place] [address] [place] Carboxyhemoglobin (BldA) [Mass fraction] 1.2 % Normal 0.0-2.0 [facility] Comment on above: Order Comment: Speci men Type: ARTERIAL BLOOD SPECIMENOrdering Facility: [facility] Address: [address] [place] [address] Result Comment: Carb oxyhemoglobin Reference Range for Smokers: 2.0-8.0% Performed By: #### A LLBG ####[facility]CLIA [id number] [place] [address] [place] CO2 (Bld) [Partial pressure] 34 mm Hg Low 36-46 [facility] Comment on above: Order Comment: Speci men Type: ARTERIAL BLOOD SPECIMENOrdering Facility: [facility] Address: [address] [place] [address] Performed By: #### A LLBG ####[facility]IA [id number] [place] [address] [place] CO2 adjusted to patient's actual temperature (Bld) [Partial pressure] 33 mmHg Low 36-46 [facility] Comment on above: Order Comment: Speci men Type: ARTERIAL BLOOD SPECIMENOrdering Facility: [facility] Address: [address] [place] [address] Performed By: #### A LLBG ####[facility]CLIA [id number] [id number] [address] [place] Glucose [Mass/Vol] 263 mg/dL High 60-105 [facility] Comment on above: Order Comment: Speci men Type: ARTERIAL BLOOD SPECIMENOrdering Facility: [facility] Address: [address] [place] [id number] Performed By: #### A LLBG ####[facility] LABCLIA [id number] [place] [address] [place] HCO3 (Bld) [Moles/Vol] 19 mmol/L Low 22-26 [facility] Comment on above: Order Comment: Speci men Type: ARTERIAL BLOOD SPECIMENOrdering Facility: [facility] Address: [address] [place], [place] [address] Performed By: #### A LLBG ####[facility] LABCLIA [id number] [place] [address] [place] Hematocrit (Bld) [Volume fraction] 38.6 % Low 39.0-51.0 [facility] Comment on above: Order Comment: Speci men Type: ARTERIAL BLOOD SPECIMENOrdering Facility: [facility] Address: [address] [place], [place] [address] Performed By: #### A LLBG ####[facility] LABCLIA [id number] [place] [address] [place] Hemoglobin (Bld) [Mass/Vol] 12.6 g/dL Low 13.0-17.0 [facility] Comment on above: Order Comment: Speci men Type: ARTERIAL BLOOD SPECIMENOrdering Facility: [facility] Address: [address] [place], [place] [address] Performed By: #### A LLBG ####[facility] LABCLIA [id number] [place] [address] [place] Lactate [Moles/Vol] 4.2 mmol/L High 0.5-2.2 [facility] Comment on above: Order Comment: Speci men Type: ARTERIAL BLOOD SPECIMENOrdering Facility: [facility] Address: [address] [place] [address] Performed By: #### A LLBG ####[facility] LABCLIA [id number] [place] [address] [place] Methemoglobin (Bld) [Mass fraction] 1.4 % Normal 0.0-1.5 [facility] Comment on above: Order Comment: Speci men Type: ARTERIAL BLOOD SPECIMENOrdering Facility: [facility] Address: [address] Performed By: #### A LLBG ####[facility] LABCLIA [id number] [place] [address] [place] O2 THERAPY RA=Room Air Normal [facility] Comment on above: Order Comment: Speci men Type: ARTERIAL BLOOD SPECIMENOrdering Facility: [facility] Address: [address] Performed By: #### A LLBG ####[facility] LABCLIA [id number] [place] [address] [place] Oxygen (Bld) [Partial pressure] 105 mm Hg High 85-95 [facility] Comment on above: Order Comment: Speci men Type: ARTERIAL BLOOD SPECIMENOrdering Facility: [facility] Address: [address] Performed By: #### A LLBG ####[facility] LABCLIA [id number] [place] [address] [place] Oxygen adjusted to patient's actual temperature (Bld) [Partial pressure] 101 mmHg High 85-95 [facility] Comment on above: Order Comment: Speci men Type: ARTERIAL BLOOD SPECIMENOrdering Facility: [facility] Address: [address] Performed By: #### A LLBG ####[facility] LABCLIA [id number] [place] [address] [place] Oxyhemoglobin (BldA) [Mass fraction] 96 % Normal 95-98 [facility] Comment on above: Order Comment: Speci men Type: ARTERIAL BLOOD SPECIMENOrdering Facility: [facility] Address: [address] Performed By: #### A LLBG ####[facility] LABCLIA [id number] [place] [address] [place] pH (Bld) 7.37 [pH] Normal 7.35-7.45 [facility] Comment on above: Order Comment: Speci men Type: ARTERIAL BLOOD SPECIMENOrdering Facility: [facility] Address: [address] [place], [place] [address] Performed By: #### A LLBG ####[facility] LABCLIA [id number] [place] [address] [place] pH adjusted to patient's actual temperature (Bld) 7.38 Normal 7.35-7.45 [facility] Comment on above: Order Comment: Speci men Type: ARTERIAL BLOOD SPECIMENOrdering Facility: [facility] Address: [address] [place], [place] [address] Performed By: #### A LLBG ####[facility] LABCLIA [id number] [place] [address] [place] PO2 / FIO2 RATIO 500 mmHg Normal >300 [facility] Comment on above: Order Comment: Speci men Type: ARTERIAL BLOOD SPECIMENOrdering Facility: [facility] Address: [address] Performed By: #### A LLBG ####[facility] LABIA [id number] [place] [address] [place] Potassium [Moles/Vol] 4.1 mmol/L Normal 3.5-5.0 [facility] Comment on above: Order Comment: Speci men Type: ARTERIAL BLOOD SPECIMENOrdering Facility: [facility] Address: [address] Performed By: #### A LLBG ####[facility] LABCLIA [id number] [place] [address] [place] Sodium [Moles/Vol] 139 mmol/L Normal 136-144 [facility] Comment on above: Order Comment: Speci men Type: ARTERIAL BLOOD SPECIMENOrdering Facility: [facility] Address: [address] [place] [address] Performed By: #### A LLBG ####[facility] LABCLIA [id number] [place] [address] [place] BRIEF OP NOTon 06-20-2023 BRIEF OP NOT Normal [facility] Basic metabolic 2000 panelon 06-20-2023 Anion gap [Moles/Vol] 13 mmol/L Normal 9-18 [facility] Comment on above: Order Comment: Speci men Type: BLOOD SPECIMENOrdering Facility: [facility] Address: [address] [place] [address] Performed By: #### 2 4321-2 ####[facility] LABCLIA [id number] [place] [address] [place] Calcium [Mass/Vol] 9.4 mg/dL Normal 8.5-10.2 [facility] Comment on above: Order Comment: Speci men Type: BLOOD SPECIMENOrdering Facility: [facility] Address: [address] [place] [address] Performed By: #### 2 4321-2 ####[facility] LABCLIA [id number] [place] [address] [place] Chloride [Moles/Vol] 107 mmol/L High 97-105 [facility] Comment on above: Order Comment: Speci men Type: BLOOD SPECIMENOrdering Facility: [facility] Address: [address] Performed By: #### 2 4321-2 ####[facility] LABCLIA [id number] [place] [address] [place] CO2 [Moles/Vol] 19 mmol/L Low 22-30 [facility] Comment on above: Order Comment: Speci men Type: BLOOD SPECIMENOrdering Facility: [facility] Address: [address] [place] [address] Performed By: #### 2 4321-2 ####[facility] LABIA [id number] [address] [place] Creatinine [Mass/Vol] 1.39 mg/dL High 0.73-1.22 [facility] Comment on above: Order Comment: Speci men Type: BLOOD SPECIMENOrdering Facility: [facility] Address: [address] [place] [address] Performed By: #### 2 4321-2 ####[facility] LABIA [id number] [address] [facility] Creatinine and Glomerular filtration rate.predicted panel (S/P/Bld) 59 mL/min/1.73m??? Low >=60 [facility] Comment on above: Order Comment: Speci men Type: BLOOD SPECIMENOrdering Facility: [facility] Address: [address] [place] [address] Result Comment: Dayan mated Glomerular Filtration Rate (eGFR) is calculated using the 2020 CKD-EPI creatinine equation. This equation utilizes serum creatinine, sex, and age as parameters. The creatinine assay has traceable calibration to isotope dilution-mass spectrometry. Refer to KDIGO guidelines for clinical interpretation. In patients with unstable renal function, e.g. those with acute kidney injury, the eGFR may not accurately reflect actual GFR. Performed By: #### 2 4321-2 ####[facility] LABIA [id number] [address] [place] Glucose [Mass/Vol] 272 mg/dL High 74-99 [facility] Comment on above: Order Comment: Speci men Type: BLOOD SPECIMENOrdering Facility: [facility] Address: [address] [place] [address] Result Comment: The [place] Diabetes Association (ADA) provides guidance for cutoff values for fasting glucose and random glucose. The ADA defines fasting as no caloric intake for at least 8 hours. Fasting plasma glucose results between 100 to 125 mg/dL indicate increased risk for diabetes (prediabetes).Fasting plasma glucose results greater than or equal to 126 mg/dL meet the criteria for diagnosis of diabetes. In the absence of unequivocal hyperglycemia, results should be confirmed by repeat testing. In a patient with classic symptoms of hyperglycemia or hyperglycemic crisis, random plasma glucose results greater than or equal to 200 mg/dL meet the criteria for diagnosis of diabetes.Reference: Standards of Medical Care in Diabetes 2016, [place] [employer]. Diabetes Care. 2016.39(Suppl 1). Performed By: #### 2 4321-2 ####[facility] LABIA [id number] [place] [address] [place] Potassium [Moles/Vol] 4.2 mmol/L Normal 3.7-5.1 [facility] Comment on above: Order Comment: Speci men Type: BLOOD SPECIMENOrdering Facility: [facility] Address: [address] [address] Performed By: #### 2 4321-2 ####[facility] LABIA [id number] [place] [address] [place] Sodium [Moles/Vol] 139 mmol/L Normal 136-144 [facility] Comment on above: Order Comment: Speci men Type: BLOOD SPECIMENOrdering Facility: [facility] Address: [address] [address] Performed By: #### 2 4321-2 ####[facility] LABIA [id number] [place] [address] [place] Urea nitrogen [Mass/Vol] 14 mg/dL Normal 9-24 [facility] Comment on above: Order Comment: Speci men Type: BLOOD SPECIMENOrdering Facility: [facility] Address: [address] [address] Performed By: #### 2 4321-2 ####[facility] LABCLIA [id number] [place] [address] [place] CBC W Auto Differential pane l (Bld)on 06-20-2023 Basophils (Bld) [#/Vol] 0.03 10*3/uL Normal <0.11 [facility] Comment on above: Order Comment: Speci men Type: BLOOD SPECIMENOrdering Facility: [facility] Address: [address] [place], [place] [address] Performed By: #### 5 7021-8 ####[facility] LABCLIA [id number] [place] [address] [place] Basophils/100 WBC (Bld) 0.3 % Normal [facility] Comment on above: Order Comment: Speci men Type: BLOOD SPECIMENOrdering Facility: [facility] Address: [address] [place], [place] [address] Performed By: #### 5 7021-8 ####[facility] LABCLIA [id number] [place] [address] [place] Differential cell count method Nom (Bld) Auto Normal [facility] Comment on above: Order Comment: Speci men Type: BLOOD SPECIMENOrdering Facility: [facility] Address: [address] [place], [place] [address] Performed By: #### 5 7021-8 ####[facility] LABCLIA [id number] [place] [address] [place] Eosinophils (Bld) [#/Vol] 10*3/uL Normal <0.46 [facility] Comment on above: Order Comment: Speci men Type: BLOOD SPECIMENOrdering Facility: [facility] Address: [address] [place], [place] [address] Performed By: #### 5 7021-8 ####[facility] LABCLIA [id number] [place] [address] [place] Eosinophils/100 WBC (Bld) 0.0 % Normal [facility] Comment on above: Order Comment: Speci men Type: BLOOD SPECIMENOrdering Facility: [facility] Address: [address] [place] [address] Performed By: #### 5 7021-8 ####[facility] LABIA [id number] [place] [address] [place] Erythrocyte distribution width (RBC) [Ratio] 13.1 % Normal 11.5-15.0 [facility] Comment on above: Order Comment: Speci men Type: BLOOD SPECIMENOrdering Facility: [facility] Address: [address] [place] [address] Performed By: #### 5 7021-8 ####[facility] LABIA [id number] [place] [address] [place] Hematocrit (Bld) [Volume fraction] 31.5 % Low 39.0-51.0 [facility] Comment on above: Order Comment: Speci men Type: BLOOD SPECIMENOrdering Facility: [facility] Address: [address] [place], [place] [address] Performed By: #### 5 7021-8 ####[facility] LABIA [id number] [place] [address] [place] Hemoglobin (Bld) [Mass/Vol] 10.2 g/dL Low 13.0-17.0 [facility] Comment on above: Order Comment: Speci men Type: BLOOD SPECIMENOrdering Facility: [facility] Address: [address] [place], [place] [address] Performed By: #### 5 7021-8 ####[facility] LABIA [id number] [place] [address] [place] Immature granulocytes (Bld) [#/Vol] 0.12 10*3/uL High <0.10 [facility] Comment on above: Order Comment: Speci men Type: BLOOD SPECIMENOrdering Facility: [facility] Address: [address] [place] [address] Performed By: #### 5 7021-8 ####[facility] LABCLIA [id number] [address] [place] [facility] Immature granulocytes/100 WBC (Bld) 1.2 % Normal [facility] Comment on above: Order Comment: Speci men Type: BLOOD SPECIMENOrdering Facility: [facility] Address: [address] [place] [address] Performed By: #### 5 7021-8 ####[facility] LABIA [id number] [place] [address] [place] Lymphocytes (Bld) [#/Vol] 0.35 10*3/uL Low 1.00-4.00 [facility] Comment on above: Order Comment: Speci men Type: BLOOD SPECIMENOrdering Facility: [facility] Address: [address] [place] [address] Performed By: #### 5 7021-8 ####[facility] LABCLIA [id number] [address] [place] [facility] Lymphocytes/100 WBC (Bld) 3.6 % Normal [facility] Comment on above: Order Comment: Speci men Type: BLOOD SPECIMENOrdering Facility: [facility] Address: [address] [place] [address] Performed By: #### 5 7021-8 ####[facility] LABCLIA [id number] [place] [address] [place] MCH (RBC) [Entitic mass] 30.7 pg Normal 26.0-34.0 [facility] Comment on above: Order Comment: Speci men Type: BLOOD SPECIMENOrdering Facility: [facility] Address: [address] [place] [address] Performed By: #### 5 7021-8 ####[facility] LABCLIA [id number] [place] [address] [place] MCHC (RBC) [Mass/Vol] 32.4 g/dL Normal 30.5-36.0 [facility] Comment on above: Order Comment: Speci men Type: BLOOD SPECIMENOrdering Facility: [facility] Address: [address] [place] [address] Performed By: #### 5 7021-8 ####[facility] LABIA [id number] [place] [address] [place] MCV (RBC) [Entitic vol] 94.9 fL Normal 80.0-100.0 [facility] Comment on above: Order Comment: Speci men Type: BLOOD SPECIMENOrdering Facility: [facility] Address: [address] [place] [address] Performed By: #### 5 7021-8 ####[facility] LABIA [id number] [place] [address] [place] Monocytes (Bld) [#/Vol] 1.03 10*3/uL High <0.87 [facility] Comment on above: Order Comment: Speci men Type: BLOOD SPECIMENOrdering Facility: [facility] Address: [address] [place], [place] [address] Performed By: #### 5 7021-8 ####[facility] LABIA [id number] [place] [address] [place] Monocytes/100 WBC (Bld) 10.5 % Normal [facility] Comment on above: Order Comment: Speci men Type: BLOOD SPECIMENOrdering Facility: [facility] Address: [address] [place], [place] [address] Performed By: #### 5 7021-8 ####[facility] LABCLIA [id number] [place] [address] [place] Neutrophils (Bld) [#/Vol] 8.28 10*3/uL High 1.45-7.50 [facility] Comment on above: Order Comment: Speci men Type: BLOOD SPECIMENOrdering Facility: [facility] Address: [address] Performed By: #### 5 7021-8 ####[facility] LABIA [id number] [address] [place] Neutrophils/100 WBC (Bld) 84.4 % Normal [facility] Comment on above: Order Comment: Speci men Type: BLOOD SPECIMENOrdering Facility: [facility] Address: [address] Performed By: #### 5 7021-8 ####[facility] LABIA [id number] [place] [address] [place] Nucleated RBC (Bld) [#/Vol] 10*3/uL Normal <0.01 [facility] Comment on above: Order Comment: Speci men Type: BLOOD SPECIMENOrdering Facility: [facility] Address: [address] Performed By: #### 5 7021-8 ####[facility] LABIA [id number] [place] [address] [place] Nucleated RBC/100 WBC (Bld) [Ratio] 0.0 /100 WBC Normal [facility] Comment on above: Order Comment: Speci men Type: BLOOD SPECIMENOrdering Facility: [facility] Address: [address] [place], [place] [address] Performed By: #### 5 7021-8 ####[facility] LABIA [id number] [place] [address] [place] Platelet mean volume (Bld) [Entitic vol] 9.2 fL Normal 9.0-12.7 [facility] Comment on above: Order Comment: Speci men Type: BLOOD SPECIMENOrdering Facility: [facility] Address: [address] Performed By: #### 5 7021-8 ####[facility] LABIA [id number] [place] [address] [place] Platelets (Bld) [#/Vol] 125 10*3/uL Low 150-400 [facility] Comment on above: Order Comment: Speci men Type: BLOOD SPECIMENOrdering Facility: [facility] Address: [address] [place] [address] Result Comment: Resu lts checked and verified.No clot detected. Performed By: #### 5 7021-8 ####[facility] LABIA [id number] [place] [address] [place] RBC (Bld) [#/Vol] 3.32 10*6/uL Low 4.20-6.00 [facility] Comment on above: Order Comment: Speci men Type: BLOOD SPECIMENOrdering Facility: [facility] Address: [address] [place] [address] Performed By: #### 5 7021-8 ####[facility] [id number] [place] [address] [place] WBC (Bld) [#/Vol] 9.81 10*3/uL Normal 3.70-11.00 [facility] Comment on above: Order Comment: Speci men Type: BLOOD SPECIMENOrdering Facility: [facility] Address: [address] [place], [place] [address] Performed By: #### 5 7021-8 ####[facility] LABIA [id number] [place] [address] [place] CBC panel Auto (Bld)on 06-20 Erythrocyte distribution width (RBC) [Ratio] 12.9 % Normal 11.5-15.0 [facility] Comment on above: Order Comment: Speci men Type: BLOOD SPECIMENOrdering Facility: [facility] Address: [address] [place] [address] Performed By: #### 5 8410-2 ####[facility] LABIA [id number] [place] [address] [place] Hematocrit (Bld) [Volume fraction] 40.4 % Normal 39.0-51.0 [facility] Comment on above: Order Comment: Speci men Type: BLOOD SPECIMENOrdering Facility: [facility] Address: [address] [place] [address] Performed By: #### 5 8410-2 ####[facility] LABIA [id number] [place] [address] [place] Hemoglobin (Bld) [Mass/Vol] 13.3 g/dL Normal 13.0-17.0 [facility] Comment on above: Order Comment: Speci men Type: BLOOD SPECIMENOrdering Facility: [facility] Address: [address] [place] [address] Performed By: #### 5 8410-2 ####[facility] LABIA [id number] [address] [place] MCH (RBC) [Entitic mass] 30.3 pg Normal 26.0-34.0 [facility] Comment on above: Order Comment: Speci men Type: BLOOD SPECIMENOrdering Facility: [facility] Address: [address] [place] [address] Performed By: #### 5 8410-2 ####[facility] LABIA [id number] [address] [place] MCHC (RBC) [Mass/Vol] 32.9 g/dL Normal 30.5-36.0 [facility] Comment on above: Order Comment: Speci men Type: BLOOD SPECIMENOrdering Facility: [facility] Address: [address] [place] [address] Performed By: #### 5 8410-2 ####[facility] LABIA [id number] [place] [id number] [address] [place] MCV (RBC) [Entitic vol] 92.0 fL Normal 80.0-100.0 [facility] Comment on above: Order Comment: Speci men Type: BLOOD SPECIMENOrdering Facility: [facility] Address: [address] [place], [place] [address] Performed By: #### 5 8410-2 ####[facility] LABCLIA [id number] [place] [address] [place] Nucleated RBC (Bld) [#/Vol] 10*3/uL Normal <0.01 [facility] Comment on above: Order Comment: Speci men Type: BLOOD SPECIMENOrdering Facility: [facility] Address: [address] [place], [place] [address] Performed By: #### 5 8410-2 ####[facility] LABIA [id number] [place] [address] [place] Platelet mean volume (Bld) [Entitic vol] 9.0 fL Normal 9.0-12.7 [facility] Comment on above: Order Comment: Speci men Type: BLOOD SPECIMENOrdering Facility: [facility] Address: [address] [place], [place] [address] Performed By: #### 5 8410-2 ####[facility] LABIA [id number] [place] [address] [place] Platelets (Bld) [#/Vol] 167 10*3/uL Normal 150-400 [facility] Comment on above: Order Comment: Speci men Type: BLOOD SPECIMENOrdering Facility: [facility] Address: [address] [place], [place] [address] Performed By: #### 5 8410-2 ####[facility] LABCLIA [id number] [place] [address] [place] RBC (Bld) [#/Vol] 4.39 10*6/uL Normal 4.20-6.00 [facility] Comment on above: Order Comment: Speci men Type: BLOOD SPECIMENOrdering Facility: [facility] Address: [address] [address] Performed By: #### 5 8410-2 ####[facility] LABCLIA [id number] [place] [address] [place] WBC (Bld) [#/Vol] 12.92 10*3/uL High 3.70-11.00 [facility] Comment on above: Order Comment: Speci men Type: BLOOD SPECIMENOrdering Facility: [facility] Address: [address] [address] Performed By: #### 5 8410-2 ####[facility] LABIA [id number] [place] [address] [place] CNDSon 06-20-2023 CNDS Normal [facility] CONSULTon 06-20-2023 CONSULT Normal [facility] CONSULT Normal [facility] CT BRAIN WO IVCONon 06-20-20 CT BRAIN WO IVCON Normal [facility] Calcium.ionized [Moles/Vol]o n 06-20-2023 Calcium.ionized (Bld) [Mass/Vol] 0.84 mmol/L Low 1.08-1.30 [facility] Comment on above: Order Comment: Speci men Type: BLOOD SPECIMENOrdering Facility: [facility] Address: [address] Performed By: #### 1 995-0 ####[facility] LABCLIA [id number] [place] [address] [place] Calcium.ionized adjusted to pH 7.4 (Bld) [Moles/Vol] 0.78 mmol/L Low 1.08-1.30 [facility] Comment on above: Order Comment: Speci men Type: BLOOD SPECIMENOrdering Facility: [facility] Address: [address] [place] [address] Performed By: #### 1 995-0 ####[facility] LABCLIA [id number] [place] [address] [place] Comprehensive metabolic 2000 panelon 06-20-2023 Albumin [Mass/Vol] 1.9 g/dL Low 3.9-4.9 [facility] Comment on above: Order Comment: Speci men Type: BLOOD SPECIMENOrdering Facility: [facility] Address: [address] [place] [address] Performed By: #### 2 777-1, , ####[facility] LABIA [id number] [place] [address] [place] ALP [Catalytic activity/Vol] 41 U/L Normal 38-113 [facility] Comment on above: Order Comment: Speci men Type: BLOOD SPECIMENOrdering Facility: [facility] Address: [address] [place] [address] Performed By: #### 2 777-1, , ####[facility] LABIA [id number] [place] [address] [place] ALT [Catalytic activity/Vol] 8 U/L Low 10-54 [facility] Comment on above: Order Comment: Speci men Type: BLOOD SPECIMENOrdering Facility: [facility] Address: [address] [place] [address] Performed By: #### 2 777-1, , ####[facility] LABIA [id number] [place] [id number] [place] Anion gap [Moles/Vol] 10 mmol/L Normal 9-18 [facility] Comment on above: Order Comment: Speci men Type: BLOOD SPECIMENOrdering Facility: [facility] Address: [address] [place], [place] [address] Performed By: #### 2 777-1, , ####[facility] LABIA [id number] [place] [address] [place] AST [Catalytic activity/Vol] 11 U/L Low 14-40 [facility] Comment on above: Order Comment: Speci men Type: BLOOD SPECIMENOrdering Facility: [facility] Address: [address] [place] [address] Result Comment: Resu lts may be falsely increased due to interference from hemolysis. Suggest reorder as clinically indicated. Performed By: #### 2 777-1, , ####[facility] LABCLIA [id number] [place] [address] [place] Bilirubin [Mass/Vol] 0.4 mg/dL Normal 0.2-1.3 [facility] Comment on above: Order Comment: Speci men Type: BLOOD SPECIMENOrdering Facility: [facility] Address: [address] [place] [address] Performed By: #### 2 777-1, , ####[facility] LABCLIA [id number] [place] [address] [place] Calcium [Mass/Vol] 4.8 mg/dL Low 8.5-10.2 [facility] Comment on above: Order Comment: Speci men Type: BLOOD SPECIMENOrdering Facility: [facility] Address: [address] [place] [address] Result Comment: Resu lt rechecked. Performed By: #### 2 777-1, , ####[facility] LABCLIA [id number] [place] [address] [place] Chloride [Moles/Vol] 124 mmol/L High 97-105 [facility] Comment on above: Order Comment: Speci men Type: BLOOD SPECIMENOrdering Facility: [facility] Address: [address] [place] [address] Performed By: #### 2 777-1, , ####[facility] LABCLIA [id number] [place] [address] [place] CO2 [Moles/Vol] 10 mmol/L Low 22-30 [facility] Comment on above: Order Comment: Speci men Type: BLOOD SPECIMENOrdering Facility: [facility] Address: [address] [place] [address] Performed By: #### 2 777-1, , ####[facility] LABCLIA [id number] [place] [address] [place] Creatinine [Mass/Vol] 0.71 mg/dL Low 0.73-1.22 [facility] Comment on above: Order Comment: Speci men Type: BLOOD SPECIMENOrdering Facility: [facility] Address: [address] [place] [address] Performed By: #### 2 777-1, , ####[facility] LABIA [id number] [place] [address] [place] Creatinine and Glomerular filtration rate.predicted panel (S/P/Bld) 107 mL/min/1.73m??? Normal >=60 [facility] Comment on above: Order Comment: Speci men Type: BLOOD SPECIMENOrdering Facility: [facility] Address: [address] [place] [address] Result Comment: Dayan mated Glomerular Filtration Rate (eGFR) is calculated using the 2020 CKD-EPI creatinine equation. This equation utilizes serum creatinine, sex, and age as parameters. The creatinine assay has traceable calibration to isotope dilution-mass spectrometry. Refer to KDIGO guidelines for clinical interpretation. In patients with unstable renal function, e.g. those with acute kidney injury, the eGFR may not accurately reflect actual GFR. Performed By: #### 2 777-1, , ####[facility] LABIA [id number] [place] [id number] [place] Glucose [Mass/Vol] 137 mg/dL High 74-99 [facility] Comment on above: Order Comment: Speci men Type: BLOOD SPECIMENOrdering Facility: [facility] Address: [address] [place], [place] [address] Result Comment: The [place] Diabetes Association (ADA) provides guidance for cutoff values for fasting glucose and random glucose. The ADA defines fasting as no caloric intake for at least 8 hours. Fasting plasma glucose results between 100 to 125 mg/dL indicate increased risk for diabetes (prediabetes).Fasting plasma glucose results greater than or equal to 126 mg/dL meet the criteria for diagnosis of diabetes. In the absence of unequivocal hyperglycemia, results should be confirmed by repeat testing. In a patient with classic symptoms of hyperglycemia or hyperglycemic crisis, random plasma glucose results greater than or equal to 200 mg/dL meet the criteria for diagnosis of diabetes.Reference: Standards of Medical Care in Diabetes 2016, [place] [employer] Association. Diabetes Care. 2016.39(Suppl 1). Performed By: #### 2 777-1, , ####[facility] LABCLIA [id number] [place] [address] [place] Potassium [Moles/Vol] 2.8 mmol/L Low 3.7-5.1 [facility] Comment on above: Order Comment: Speci men Type: BLOOD SPECIMENOrdering Facility: [facility] Address: [address] [place], [place] [address] Performed By: #### 2 777-1, , ####[facility] LABCLIA [id number] [place] [id number] [place] Protein [Mass/Vol] 3.3 g/dL Low 6.3-8.0 [facility] Comment on above: Order Comment: Speci men Type: BLOOD SPECIMENOrdering Facility: [facility] Address: [address] [place], [place] [address] Performed By: #### 2 777-1, , ####[facility] LABCLIA [id number] [place] [address] [place] Sodium [Moles/Vol] 144 mmol/L Normal 136-144 [facility] Comment on above: Order Comment: Speci men Type: BLOOD SPECIMENOrdering Facility: [facility] Address: [address] [place] [address] Performed By: #### 2 777-1, , ####[facility] LABCLIA [id number] [place] [address] [place] Urea nitrogen [Mass/Vol] 8 mg/dL Low 9-24 [facility] Comment on above: Order Comment: Speci men Type: BLOOD SPECIMENOrdering Facility: [facility] Address: [address] [place] [address] Performed By: #### 2 777-1, , ####[facility] LABCLIA [id number] [place] [address] [place] ECG COMPLETEon 06-20-2023 ECG COMPLETE Normal [facility] Magnesium SerPl-mCncon 06-20 Magnesium [Mass/Vol] 0.8 mg/dL Low 1.7-2.3 [facility] Comment on above: Order Comment: Speci men Type: BLOOD SPECIMENOrdering Facility: [facility] Address: [address] [place] [address] Result Comment: Resu lt rechecked. Performed By: #### 2 777-1, , ####[facility] LABCLIA [id number] [place] [address] [place] NURSING PROGon 06-20-2023 NURSING PROG Normal [facility] NURSING PROG Normal [facility] NURSING PROG Normal [facility] OPERATIVE NOon 06-20-2023 OPERATIVE NO Normal [facility] Osmolality SerPlon Osmolality [Osmolality] 320 mosm/kg High 275-300 [facility] Comment on above: Order Comment: Speci men Type: BLOOD SPECIMENOrdering Facility: [facility] Address: [address] [place] [address] Performed By: #### 2 692-2 ####[facility] LABCLIA [id number] [place] [address] [place] Phosphate SerPl-mCncon 06-20 Phosphate [Mass/Vol] 1.7 mg/dL Low 2.7-4.8 [facility] Comment on above: Order Comment: Speci men Type: BLOOD SPECIMENOrdering Facility: [facility] Address: [address] [place] [address] Performed By: #### 2 777-1, 79547-3, 25328-8 ####[facility] LABIA [id number] [address] [place] STAPH AUREUS PCRon 3 S. aureus and MRSA panel ARINA+probe (Nose) Normal Negative [facility] Comment on above: Order Comment: Speci men Type: SWAB OF INTERNAL NOSEOrdering Facility: [facility] Address: [address] [place] [address] Result Comment: Nega tive for Staphylococcus aureus by PCR.Negative for MRSA by PCR Performed By: #### S APCR ####[facility] LABIA [id number] [place] [address] [place] SURGICAL PATHOLOGYon 023 CASE REPORT Normal [facility] Comment on above: Order Comment: Speci men Type: TISSUE SPECIMENOrdering Facility: [facility] Address: [address] [place] [address] Result Comment: Surg ical Pathology Report Case: [id number] Provider: Jabier Shelley MD Collected: 06/20/2023 11:35 AMOrdering Location: Admitting Received: 06/20/2023 12:24 PMPathologist: Agustina Duckworth MDSpecimens: A) - BRAIN RESECTION, Right Amygdala B) - BRAIN RESECTION, Right Hippocampus C) - BRAIN RESECTION, Right Temporal Lobe D) - BRAIN RESECTION, Right Orbitofrontal Performed By: #### S ####[facility]IA [id number] [address] CLINICAL HISTORY Normal [facility] Comment on above: Order Comment: Speci tania Type: TISSUE SPECIMENOrdering Facility: [facility] Address: [address] [place] [address] Result Comment: Pre- op diagnosis:Encounter for other preprocedural examination [Z01.818]Partial epilepsy with impairment of consciousness, 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 Performed By: #### S ####[facility] [id number] [address] FINAL DIAGNOSIS Normal [facility] Comment on above: Order Comment: Speci men Type: TISSUE SPECIMENOrdering Facility: [facility] Address: [address] [place] [address] Result Comment: A, B , C, D. Brain, right amygdala/hippocampus/temporal lobe/orbitofrontal, right frontal and temporal lobectomy:- COMFORT ADVISOR parenchyma with mild to moderate architectural distortion, subpial (Chaslin's) gliosis, and perivascular edema;- Focal area of contusion/infarction compatible with prior lead placement;- Hippocampus with retention of pyramidal neurons;- See comment Performed By: #### S ####[facility] LABCLIA [id number] [address] OF [facility] FINAL PERFORMING LAB Normal [facility] Comment on above: Order Comment: Speci men Type: TISSUE SPECIMENOrdering Facility: [facility] Address: [address] [place] [address] Result Comment: Diag nostic interpretation performed at [facility], [address] [place] [address] CLIA# [id number] Director: Brandt Barnard M.D. Performed By: #### S ####[facility] LABCLIA [id number] [address] GROSS DESCRIPTION Normal [facility] Comment on above: Order Comment: Speci men Type: TISSUE SPECIMENOrdering Facility: [facility] Address: [address] [place] [address] Result Comment: A. B RAIN RESECTIONReceived in formalin designated right amygdala is 1 piece of brain tissue measuring 2.6 x 1.4 x 0.9 cm. The specimen is serially sectioned and entirely submitted in 2 cassettes.WE June 20, 2023 1:49 PMGross examination performed at [facility], [address] [place], [place] [address]B. BRAIN RESECTIONReceived fresh is 1 piece of tissue measuring 2 x 1.2 x 0.3 cm and weighing 0.7 g. A shiny white ventricular surface is recognized. Sectioning in the coronal plane reveals the normal architecture of the [facility]. The specimen is entirely submitted in 1 cassette.WE June 20, 2023 12:47 PMGross examination performed at [facility], [address] [place], [place] [address]C. BRAIN RESECTIONReceived fresh designated right temporal lobe is 1 piece of tissue measuring 4.5 x 4 x 1 cm and weighs 11.2 g. The leptomeninges show normal vascular pattern. The specimen is uniformly soft on palpation. Upon sectioning, the specimen shows a cortical ribbon ranging from 0.2 to 0.3 cm in thickness. The underlying white matter is normal in appearance. Ventricular surface is not identified. Shirt Turner sections are submitted in sequential order from posterior to anterior into 5 cassettes.WE June 20, 2023 12:42 PMGross examination performed at [facility], [address] [place], [place] [address]D. BRAIN RESECTIONReceived in formalin designated right orbital frontal is 1 piece of tissue measuring 5 x 4.2 x 0.7 cm and weighing 10 g. The leptomeninges show normal vascular pattern. The specimen is uniformly soft on palpation. On sectioning, the specimen shows a cortical ribbon ranging from 0.2 to 0.4 cm in thickness. The underlying white matter is normal in appearance. A ventricular surface is not identified. Shirt Turner sections are submitted in 5 cassettes.WE June 20, 2023 1:54 PMGross examination performed at [facility], [address] [place] [address] Performed By: #### S ####[facility] [id number] [address] [place] URINALYSIS, DIPSTICK ONLYon 06-20-2023 Bilirubin Ql (U) Negative Normal Negative [facility] Comment on above: Order Comment: Speci men Type: URINE SPECIMENOrdering Facility: [facility] Address: [address] [place] [address] Performed By: #### U A ####[facility] [id number] [place] [address] [place] Clarity (Unsp spec) Clear Normal Clear [facility] Comment on above: Order Comment: Speci men Type: URINE SPECIMENOrdering Facility: [facility] Address: [address] [place] [address] Performed By: #### U A ####[facility]IA [id number] [address] [place] Color (U) Light Yellow Normal Yellow [facility] Comment on above: Order Comment: Speci men Type: URINE SPECIMENOrdering Facility: [facility] Address: [address] [place] [address] Performed By: #### U A ####[facility] LABCLIA [id number] [address] Glucose Test strip (U) [Mass/Vol] 2+ Abnormal Trace, Negative [facility] Comment on above: Order Comment: Speci men Type: URINE SPECIMENOrdering Facility: [facility] Address: [address] [place] [address] Performed By: #### U A ####[facility] LABCLIA [id number] [address] Hemoglobin Ql (U) Trace Normal Negative, Trace [facility] Comment on above: Order Comment: Speci men Type: URINE SPECIMENOrdering Facility: [facility] Address: [address] [place] [address] Performed By: #### U A ####[facility] LABCLIA [id number] [address] [place] Ketones Ql (U) Negative Normal Trace, Negative [facility] Comment on above: Order Comment: Speci men Type: URINE SPECIMENOrdering Facility: [facility] Address: [address] [place] [address] Performed By: #### U A ####[facility] LABCLIA [id number] [address] [place] Leukocyte esterase Test strip Ql (U) 25 Edward/uL Normal Negative, 25 Edward/uL [facility] Comment on above: Order Comment: Speci men Type: URINE SPECIMENOrdering Facility: [facility] Address: [address] [place], [place] [address] Performed By: #### U A ####[facility] LABCLIA [id number] [place] [address] [place] Nitrite Ql (U) Negative Normal Negative [facility] Comment on above: Order Comment: Speci men Type: URINE SPECIMENOrdering Facility: [facility] Address: [address] [place] [address] Performed By: #### U A ####[facility]IA [id number] [address] [place] pH (U) 5.5 [pH] Normal 5.0-8.0 [facility] Comment on above: Order Comment: Speci men Type: URINE SPECIMENOrdering Facility: [facility] Address: [address] [place] [address] Performed By: #### U A ####[facility] [id number] [place] [address] [place] [facility] Protein (U) [Mass/Vol] 1+ Abnormal Trace, Negative [facility] Comment on above: Order Comment: Speci men Type: URINE SPECIMENOrdering Facility: [facility] Address: [address] [place] [address] Performed By: #### U A ####[facility] [id number] [address] Specific gravity (U) [Rel density] 1.026 Normal 1.005-1.030 [facility] Comment on above: Order Comment: Speci men Type: URINE SPECIMENOrdering Facility: [facility] Address: [address] [place], [place] [address] Performed By: #### U A ####[facility] [id number] [address] Urobilinogen Ql (U) Negative Normal Negative [facility] Comment on above: Order Comment: Speci men Type: URINE SPECIMENOrdering Facility: [facility] Address: [address] [place] [address] Performed By: #### U A ####[facility] [id number] [place] [address] [place] CNNURSEon 06-17-2023 CNNURSE Normal [facility] CNOVon 06-17-2023 CNOV Normal [facility] MRI BRAIN LOCAL WO IVCONon 0 06-17-2023 MRI BRAIN LOCAL WO IVCON Normal [facility] MRI BRAIN LOCALIZATION WO IV CONon 06-17-2023 [facility] CNPNon 06-15-2023 CNPN Normal [facility] CNOVon 06-08-2023 CNOV Normal [facility] CNPNon 05-26-2023 CNPN Normal [facility] CBC panel Auto (Bld)on 05-24 Erythrocyte distribution width (RBC) [Ratio] 12.9 % Normal 11.5-15.0 [facility] Comment on above: Order Comment: Speci men Type: BLOOD SPECIMENOrdering Facility: [facility] Address: [address] [place] [address] Performed By: #### 5 8410-2 ####[facility] [id number] [address] [place] Hematocrit (Bld) [Volume fraction] 41.6 % Normal 39.0-51.0 [facility] Comment on above: Order Comment: Speci men Type: BLOOD SPECIMENOrdering Facility: [facility] Address: [address] [place] [address] Performed By: #### 5 8410-2 ####[facility] LABCLIA [id number] [place] [address] [place] Hemoglobin (Bld) [Mass/Vol] 13.3 g/dL Normal 13.0-17.0 [facility] Comment on above: Order Comment: Speci men Type: BLOOD SPECIMENOrdering Facility: [facility] Address: [address] [place] [address] Performed By: #### 5 8410-2 ####[facility]CLIA [id number] [place] [address] [place] MCH (RBC) [Entitic mass] 30.5 pg Normal 26.0-34.0 [facility] Comment on above: Order Comment: Speci men Type: BLOOD SPECIMENOrdering Facility: [facility] Address: [address] [place], [place] [address] Performed By: #### 5 8410-2 ####[facility] LABCLIA [id number] [place] [address] [place] MCHC (RBC) [Mass/Vol] 32.0 g/dL Normal 30.5-36.0 [facility] Comment on above: Order Comment: Speci men Type: BLOOD SPECIMENOrdering Facility: [facility] Address: [address] [place] [address] Performed By: #### 5 8410-2 ####[facility] [id number] [place] [address] [place] MCV (RBC) [Entitic vol] 95.4 fL Normal 80.0-100.0 [facility] Comment on above: Order Comment: Speci men Type: BLOOD SPECIMENOrdering Facility: [facility] Address: [address] [place], [place] [address] Performed By: #### 5 8410-2 ####[facility] [id number] [place] [address] [place] Nucleated RBC (Bld) [#/Vol] 10*3/uL Normal <0.01 [facility] Comment on above: Order Comment: Speci men Type: BLOOD SPECIMENOrdering Facility: [facility] Address: [address] [place], [place] [address] Performed By: #### 5 8410-2 ####[facility] [id number] [place] [address] [place] Platelet mean volume (Bld) [Entitic vol] 9.7 fL Normal 9.0-12.7 [facility] Comment on above: Order Comment: Speci men Type: BLOOD SPECIMENOrdering Facility: [facility] Address: [address] Performed By: #### 5 8410-2 ####[facility] [id number] [place] [address] [place] Platelets (Bld) [#/Vol] 252 10*3/uL Normal 150-400 [facility] Comment on above: Order Comment: Speci men Type: BLOOD SPECIMENOrdering Facility: [facility] Address: [address] [place], [place] [address] Performed By: #### 5 8410-2 ####[facility] [id number] [place] [address] [place] RBC (Bld) [#/Vol] 4.36 10*6/uL Normal 4.20-6.00 [facility] Comment on above: Order Comment: Speci men Type: BLOOD SPECIMENOrdering Facility: [facility] Address: [address] [place], [place] [address] Performed By: #### 5 8410-2 ####[facility] [id number] [place] [address] [place] [facility] [place] WBC (Bld) [#/Vol] 8.81 10*3/uL Normal 3.70-11.00 [facility] Comment on above: Order Comment: Speci men Type: BLOOD SPECIMENOrdering Facility: [facility] Address: [address] [place] [address] Performed By: #### 5 8410-2 ####[facility] [id number] [place] [address] [place] CNOVon 05-24-2023 CNOV Normal [facility] CNPNon 05-24-2023 CNPN Normal [facility] Comprehensive metabolic 2000 panelon 05-24-2023 Albumin [Mass/Vol] 3.7 g/dL Low 3.9-4.9 [facility] Comment on above: Order Comment: Speci men Type: BLOOD SPECIMENOrdering Facility: [facility] Address: [address] Performed By: #### 2 4323-8 ####[facility]CL[facility] [id number] [place] [address] [place] ALP [Catalytic activity/Vol] 85 U/L Normal 38-113 [facility] Comment on above: Order Comment: Speci men Type: BLOOD SPECIMENOrdering Facility: [facility] Address: [address] Performed By: #### 2 4323-8 ####[facility]CLIA [id number] [place] [address] [place] ALT [Catalytic activity/Vol] 8 U/L Low 10-54 [facility] Comment on above: Order Comment: Speci men Type: BLOOD SPECIMENOrdering Facility: [facility] Address: [address] Performed By: #### 2 4323-8 ####[facility]CLIA [id number] [place] [address] [place] Anion gap [Moles/Vol] 10 mmol/L Normal 9-18 [facility] Comment on above: Order Comment: Speci men Type: BLOOD SPECIMENOrdering Facility: [facility] Address: [address] Performed By: #### 2 4323-8 ####[facility]CLIA [id number] [address] [place] AST [Catalytic activity/Vol] 13 U/L Low 14-40 [facility] Comment on above: Order Comment: Speci men Type: BLOOD SPECIMENOrdering Facility: [facility] Address: [address] Performed By: #### 2 4323-8 ####[facility] [id number] [place] [id number] [place] Bilirubin [Mass/Vol] 0.5 mg/dL Normal 0.2-1.3 [facility] Comment on above: Order Comment: Speci men Type: BLOOD SPECIMENOrdering Facility: [facility] Address: [address] [place] [address] Performed By: #### 2 4323-8 ####[facility] LABCLIA [id number] [place] [address] [place] Calcium [Mass/Vol] 9.6 mg/dL Normal 8.5-10.2 [facility] Comment on above: Order Comment: Speci men Type: BLOOD SPECIMENOrdering Facility: [facility] Address: [address] [place] [address] Performed By: #### 2 4323-8 ####[facility] LABCLIA [id number] [place] [address] [place] Chloride [Moles/Vol] 104 mmol/L Normal 97-105 [facility] Comment on above: Order Comment: Speci men Type: BLOOD SPECIMENOrdering Facility: [facility] Address: [address] [place] [address] Performed By: #### 2 4323-8 ####[facility] LABCLIA [id number] [place] [address] [place] CO2 [Moles/Vol] 26 mmol/L Normal 22-30 [facility] Comment on above: Order Comment: Speci men Type: BLOOD SPECIMENOrdering Facility: [facility] Address: [address] [place], [place] [address] Performed By: #### 2 4323-8 ####[facility] LABCLIA [id number] [place] [address] [place] Creatinine [Mass/Vol] 1.56 mg/dL High 0.73-1.22 [facility] Comment on above: Order Comment: Speci men Type: BLOOD SPECIMENOrdering Facility: [facility] Address: [address] [place] [address] Performed By: #### 2 4323-8 ####[facility] LABCLIA [id number] [address] OF [facility] ESTIMATED GLOMERULAR FILTRATION RATE 51 mL/min/1.73m??? Low >=60 [facility] Comment on above: Order Comment: Iesha marin Type: BLOOD SPECIMENOrdering Facility: [facility] Address: [address] [place] [address] Result Comment: Dayan mated Glomerular Filtration Rate (eGFR) is calculated using the 2020 CKD-EPI creatinine equation. This equation utilizes serum creatinine, sex, and age as parameters. The creatinine assay has traceable calibration to isotope dilution-mass spectrometry. Refer to KDIGO guidelines for clinical interpretation. In patients with unstable renal function, e.g. those with acute kidney injury, the eGFR may not accurately reflect actual GFR. Performed By: #### 2 4323-8 ####[facility] LABCLIA [id number] [place] [address] [place] Glucose [Mass/Vol] 102 mg/dL High 74-99 [facility] Comment on above: Order Comment: Iesha marin Type: BLOOD SPECIMENOrdering Facility: [facility] Address: [address] [place] [address] Result Comment: The [place] Diabetes Association (ADA) provides guidance for cutoff values for fasting glucose and random glucose. The ADA defines fasting as no caloric intake for at least 8 hours. Fasting plasma glucose results between 100 to 125 mg/dL indicate increased risk for diabetes (prediabetes).Fasting plasma glucose results greater than or equal to 126 mg/dL meet the criteria for diagnosis of diabetes. In the absence of unequivocal hyperglycemia, results should be confirmed by repeat testing. In a patient with classic symptoms of hyperglycemia or hyperglycemic crisis, random plasma glucose results greater than or equal to 200 mg/dL meet the criteria for diagnosis of diabetes.Reference: Standards of Medical Care in Diabetes 2016, [place] Diabetes Association. Diabetes Care. 2016.39(Suppl 1). Performed By: #### 2 4323-8 ####[facility] LABCLIA [id number] [place] [address] [place] Potassium [Moles/Vol] 4.3 mmol/L Normal 3.7-5.1 [facility] Comment on above: Order Comment: Speci men Type: BLOOD SPECIMENOrdering Facility: [facility] Address: [address] [place] [address] Performed By: #### 2 4323-8 ####[facility] LABCLIA [id number] [place] [address] [place] Protein [Mass/Vol] 6.1 g/dL Low 6.3-8.0 [facility] Comment on above: Order Comment: Speci men Type: BLOOD SPECIMENOrdering Facility: [facility] Address: [address] [place] [address] Performed By: #### 2 4323-8 ####[facility] LABIA [id number] [place] [address] [place] Sodium [Moles/Vol] 140 mmol/L Normal 136-144 [facility] Comment on above: Order Comment: Speci men Type: BLOOD SPECIMENOrdering Facility: [facility] Address: [address] [place], [place] [address] Performed By: #### 2 4323-8 ####[facility] LABIA [id number] [place] [address] [place] Urea nitrogen [Mass/Vol] 21 mg/dL Normal 9-24 [facility] Comment on above: Order Comment: Speci men Type: BLOOD SPECIMENOrdering Facility: [facility] Address: [address] [place], [place] [address] Performed By: #### 2 4323-8 ####[facility] LABCLIA [id number] [place] [address] [place] ECG COMPLETEon 05-24-2023 ECG COMPLETE Normal [facility] HISTORY PHYSICALon 08-15-202 3 HISTORY PHYSICAL Normal [facility] PT panel Coag (PPP)on 2022 INR Coag (PPP) [Relative time] 1.0 {INR} Normal 0.9-1.3 [facility] Comment on above: Order Comment: Iesha marin Type: BLOOD SPECIMENOrdering Facility: [facility] Address: [address] [place], [place] [address] Result Comment: Ella min K Antagonist (VKA) Therapeutic Range: INR 2 to 3 (Target INR of 2.5)Note: For patients treated with VKA drugs, such as warfarin, the [place] [employer] 2012 Guideline recommends a therapeutic INR range of 2 to 3 (target INR of 2.5). This recommendation includes high-risk patients with antiphospholipid syndrome with previous arterial or venous thromboembolism, current-generation mechanical or bioprosthetic aortic heart valve replacement.Note: Patients with mechanical aortic valve replacement and additional risk factors for thromboembolic events (atrial fibrillation, previous thromboembolism, LV dysfunction, hypercoagulable conditions) or an older generation mechanical AVR (i.e., ball in-Cage) or any mechanical MVR should have a INR therapeutic range of 2.5 to 3.5 (target INR of 3).Alectt GH, et al. Chest 2012, 141:7S-47SNishimura RA, et al. [facility] 2017, 70: 252-289 Performed By: #### 3 4528-0, 00257-8 ####[facility] LABIA [id number] [place] [address] [place] PT Coag (PPP) [Time] 10.4 s Normal 9.7-13.0 [facility] Comment on above: Order Comment: Speci tania Type: BLOOD SPECIMENOrdering Facility: [facility] Address: [place] [address] Performed By: #### 3 4528-0, 97423-3 ####[facility] LABCLIA [id number] [place] [id number] [place] STAPH AUREUS PCRon 3 S. aureus and MRSA panel ARINA+probe (Nose) Normal Negative [facility] Comment on above: Order Comment: Speci men Type: SWAB OF INTERNAL NOSEOrdering Facility: [facility] Address: [address] [place] [address] Result Comment: Nega tive for Staphylococcus aureus by PCR.Negative for MRSA by PCR Performed By: #### S APCR ####[facility] LABCLIA [id number] [address] OF [facility] TYPE AND SCREEN,30 DAYon ABO B Normal [facility] Comment on above: Order Comment: Speci men Type: BLOOD SPECIMENOrdering Facility: [facility] Address: [address] [place] [address] Performed By: #### T SCR30 ####[facility] BLOOD BANKCLIA [id number] [address] HISTORICAL AB SCR STATUS Negative Normal [facility] Comment on above: Order Comment: Speci men Type: BLOOD SPECIMENOrdering Facility: [facility] Address: [address] [place] [address] Performed By: #### T SCR30 ####[facility] BLOOD BANKCLIA [id number] [address] [place] Rh Nom (Bld) Positive Normal [facility] Comment on above: Order Comment: Speci men Type: BLOOD SPECIMENOrdering Facility: [facility] Address: [address] [place] [address] Performed By: #### T SCR30 ####[facility] BLOOD BANKCLIA [id number] [address] [place] aPTT PPPon 05-24-2023 aPTT Coag (PPP) [Time] 28.3 s Normal 23.0-32.4 [facility] Comment on above: Order Comment: Speci men Type: BLOOD SPECIMENOrdering Facility: [facility] Address: [address] [place] [address] Performed By: #### 3 4528-0, 45469-4 ####[facility] LABCLIA [id number] [facility] MIRAMAR [id number] [place] [address] [place] CNOVon 05-20-2023 CNOV Normal [facility] CNPNon 05-13-2023 CNPN Normal [facility] CNPNon 05-10-2023 CNPN Normal [facility] Prografon 05-05-2023 Prograf 3.9 ng/mL Normal [facility] Comment on above: Result Comment: (NOT E) Therapeutic Range: Kidney transplant: 0-3 months post-transplant: 7.0-20.0 ng/mL 3 months and older: 5.0-15.0 ng/mL Liver transplant: 1-12 months post-transplant: 5-20 ng/mL Heart transplant: 0-3 months post-transplant: 10.0-20.0 ng/mL 3 months and older: 5.0-15.0 ng/mL Toxic value: Greater than 25 ng/mL Therapeutic range is based on a whole blood specimen drawn 12 hours post-dose or prior to next dose (the trough). The optimal therapeutic range for a given patient may differ from this suggested range based on the indication for therapy, treatment phase (initiation or maintenance), use in combination with other drugs, time of specimen collection relative to prior dose, type of transplanted organ, and/or the therapeutic approach of the transplant center. This test was developed and its performance characteristics determined by [facility]. It has not been cleared or approved by the [place] Food and Drug Administration. This test was performed in a CLIA certified laboratory and is intended for clinical purposes. Performed By: [facility] [address] [place] [address] Bus Person Dishwasher: Cleve Giraldo MD, PhD Performed By: #### Yonathan MCKEON, CDP #### [facility] [address] [place] [address] Registered Dietetic Technician: Aixa Gu MD CBC with Diffon 05-03-2023 Abs. Basophil 0.04 k/uL Normal 0.00-0.20 [facility] Comment on above: Performed By: #### Yonathan MCKEON, CDP #### [facility] [address] [place] [address] Registered Dietetic Technician: Aixa Gu MD Abs.Imm.Granulocyte <0.03 Normal 0.00-0.30 [facility] Comment on above: Performed By: #### R ENP, CDP #### [address] [place] [address] Registered Dietetic Technician: Aixa Gu MD Abs.Neutrophil (Seg) 3.56 k/uL Normal 1.50-8.10 [facility] Comment on above: Performed By: #### R ENP, CDP #### [address] [place] [address] Registered Dietetic Technician: Aixa Gu MD Basophils/100 WBC (Bld) 1 % Normal 0-2 [facility] Comment on above: Performed By: #### R ENP, CDP #### [address] [place], [place] [address] Registered Dietetic Technician: Aixa Gu MD Eosinophils (Bld) [#/Vol] 0.34 10*3/uL Normal 0.00-0.44 [facility] Comment on above: Performed By: #### R ENP, CDP #### [address] [place] [address] Registered Dietetic Technician: Aixa Gu MD Eosinophils/100 WBC (Bld) 5 % High 1-4 [facility] Comment on above: Performed By: #### R ENP, CDP #### [address] [place], [facility]83 Registered Dietetic Technician: Aixa Gu MD Erythrocyte distribution width (RBC) [Ratio] 13.6 % Normal 11.8-14.4 [facility] Comment on above: Performed By: #### R ENP, CDP #### [address] [place] [address] Registered Dietetic Technician: Aixa Gu MD Hematocrit (Bld) [Volume fraction] 42.7 % Normal 40.7-50.3 [facility] Comment on above: Performed By: #### R ENP, CDP #### [facility] [address] [place], [place] [address] Registered Dietetic Technician: Aixa Gu MD Hemoglobin (Bld) [Mass/Vol] 13.3 g/dL Normal 13.0-17.0 [facility] Comment on above: Performed By: #### R ENP, CDP #### [facility] [address] [place], [place] [address] Registered Dietetic Technician: Aixa Gu MD Immature granulocytes/100 WBC (Bld) 0 % Normal 0 [facility] Comment on above: Performed By: #### R LINDA, CDP #### [address] [place], [place] [address] Registered Dietetic Technician: Aixa Gu MD Lymphocytes (Bld) [#/Vol] 2.24 10*3/uL Normal 1.10-3.70 [facility] Comment on above: Performed By: #### R LINDA, CDP #### [address] [place], [place] [address] Registered Dietetic Technician: Aixa Gu MD Lymphocytes/100 WBC (Bld) 33 % Normal 24-43 [facility] Comment on above: Performed By: #### R ENP, CDP #### [facility] [address] [place] [address] [place], [place] [address] Registered Dietetic Technician: Aixa Gu MD MCH (RBC) [Entitic mass] 30.9 pg Normal 25.2-33.5 [facility] Comment on above: Performed By: #### R ENP, CDP #### [facility] [address] [place] [address] [place], [place] [address] Registered Dietetic Technician: Aixa Gu MD MCHC (RBC) [Mass/Vol] 31.1 g/dL Normal 28.4-34.8 [facility] Comment on above: Performed By: #### R ENP, CDP #### [facility] [address] [place], [facility]83 Registered Dietetic Technician: Aixa Gu MD MCV (RBC) [Entitic vol] 99.1 fL Normal 82.6-102.9 [facility] Comment on above: Performed By: #### R ENP, CDP #### [facility] [address] [place], [facility]83 Registered Dietetic Technician: Aixa Gu MD Monocytes (Bld) [#/Vol] 0.64 10*3/uL Normal 0.10-1.20 [facility] Comment on above: Performed By: #### R ENLuiza, CDP #### [address] [place], [facility]83 Registered Dietetic Technician: Aixa Gu MD Monocytes/100 WBC (Bld) 9 % Normal 3-12 [facility] Comment on above: Performed By: #### R ENLuiza, CDP #### [address] [place], [facility]83 Registered Dietetic Technician: Aixa Gu MD Neutrophil (Seg) 52 % Normal 36-65 [facility] Comment on above: Performed By: #### R ENP, CDP #### [address] [place], [facility]83 Registered Dietetic Technician: Aixa Gu MD NRBC Automated 0.0 per 100 WBC Normal 0.0 [facility] Comment on above: Performed By: #### R ENP, CDP #### [facility] [address] [place] [address] Registered Dietetic Technician: Aixa Gu MD Platelet mean volume (Bld) [Entitic vol] 10.5 fL Normal 8.1-13.5 [facility] Comment on above: Performed By: #### R ENP, CDP #### [facility] [address] [place], [place] [address] Registered Dietetic Technician: Aixa Gu MD Platelets (Bld) [#/Vol] 266 10*3/uL Normal 138-453 [facility] Comment on above: Performed By: #### R ENP, CDP #### [facility] [address] [place], [place] [address] Registered Dietetic Technician: Aixa Gu MD RBC (Bld) [#/Vol] 4.31 10*6/uL Normal 4.21-5.77 [facility] Comment on above: Performed By: #### R ENP, CDP #### [facility] [address] [place], [place] [address]183 Registered Dietetic Technician: Aixa Gu MD WBC (Bld) [#/Vol] 6.8 10*3/uL Normal 3.5-11.3 [facility] Comment on above: Performed By: #### R ENP, CDP #### [facility] [address] [place] [address] [place], [place] [address]83 Registered Dietetic Technician: Aixa Gu MD Renal Function Panelon 05-03 Albumin [Mass/Vol] 3.8 g/dL Normal 3.5-5.2 [facility] Comment on above: Performed By: #### R ENP, CDP #### [facility] [address] [place] [address] [place], [place] 1557483 Registered Dietetic Technician: Aixa Gu MD Anion gap [Moles/Vol] 8 mmol/L Low 9-17 [facility] Comment on above: Performed By: #### R ENP, CDP #### [address] [place], [place] [address]83 Registered Dietetic Technician: Aixa Gu MD BUN/CRE Ratio 9 Normal 9-20 [facility] Comment on above: Performed By: #### R ENP, CDP #### [facility] [address] [place], [place] [address] Registered Dietetic Technician: Aixa Gu MD Calcium [Mass/Vol] 9.6 mg/dL Normal 8.6-10.4 [facility] Comment on above: Performed By: #### R ENP, CDP #### [facility] [address] [place], [place] [address] Registered Dietetic Technician: Aixa Gu MD Chloride [Moles/Vol] 108 mmol/L High 98-107 [facility] Comment on above: Performed By: #### R ENP, CDP #### [facility] [address] [place], [place] [address] Registered Dietetic Technician: Aixa Gu MD CO2 [Moles/Vol] 25 mmol/L Normal 20-31 [facility] Comment on above: Performed By: #### R ENP, CDP #### [facility] [address] [place], [place] [address] Registered Dietetic Technician: Aixa Gu MD Creatinine [Mass/Vol] 1.6 mg/dL High 0.7-1.2 [facility] Comment on above: Performed By: #### R ENP, CDP #### [facility] [address] [place], [place] [address] Registered Dietetic Technician: Aixa Gu MD GFR/1.73 sq M.predicted among non-blacks MDRD (S/P/Bld) [Vol rate/Area] 50 mL/min/{1.73_m2} Low >60 [facility] Comment on above: Result Comment: These results are not intended for use in patients <18 years of age. eGFR results are calculated without a race factor using the 2020 CKD-EPI equation. Careful clinical correlation is recommended, particularly when comparing to results calculated using previous equations. The CKD-EPI equation is less accurate in patients with extremes of muscle mass, extra-renal metabolism of creatine, excessive creatine ingestion, or following therapy that affects renal tubular secretion. Performed By: #### R ENP, CDP #### [facility] [address] [place], [place] [address] Registered Dietetic Technician: Aixa Gu MD Glucose [Mass/Vol] 99 mg/dL Normal 70-99 [facility] Comment on above: Performed By: #### R ENP, CDP #### [facility] [address] [place], [place] [address] Registered Dietetic Technician: Aixa Gu MD Phosphorus, Inorg. 3.5 mg/dL Normal 2.5-4.5 [facility] Comment on above: Performed By: #### R ENP, CDP #### [facility] [address] [place], [place] [address] Registered Dietetic Technician: Aixa Gu MD Potassium [Moles/Vol] 4.0 mmol/L Normal 3.7-5.3 [facility] Comment on above: Performed By: #### R ENP, CDP #### [facility] [address] [place] [address] Registered Dietetic Technician: Aixa Gu MD Sodium [Moles/Vol] 141 mmol/L Normal 135-144 [facility] Comment on above: Performed By: #### R ENP, CDP #### [facility] [address] [place], [place] [address] Registered Dietetic Technician: Aixa Gu MD Urea nitrogen [Mass/Vol] 14 mg/dL Normal 6-20 [facility] Comment on above: Performed By: #### R ENP, CDP #### [facility] [address] [place], [place] 937[address]83 Registered Dietetic Technician: Aixa Gu MD CNPItzel 05-02-2023 CNPN [facility] CNPNon 04-14-2023 CNPN [facility] CNOVon 04-06-2023 CNOV [facility] CNPNon 04-06-2023 CNPN [facility] US LEG VEIN DVT GABE VAS LABo n 04-06-2023 US LEG VEIN DVT GABE VAS LAB [facility] US VISCERAL VEIN COMPLETE VA S LABon 04-06-2023 US VISCERAL VEIN COMPLETE VAS LAB Normal [facility] CNPNon 03-30-2023 CNPN Normal [facility] Basic Metabolic Panelon Anion gap [Moles/Vol] 8.4 mmol/L Normal 6.0-15.0 [facility] Comment on above: Performed By: #### C BC #### [facility] [address] Calcium [Mass/Vol] 9.2 mg/dL Normal 8.6-10.3 [facility] Comment on above: Performed By: #### C BC #### [facility] [address] Chloride [Moles/Vol] 107 mmol/L Normal 98-107 [facility] Comment on above: Performed By: #### C BC #### [facility] [address] CO2 [Moles/Vol] 29.1 mmol/L Normal 21.0-31.0 [facility] Comment on above: Performed By: #### C BC #### [address] Creatinine [Mass/Vol] 1.37 mg/dL High 0.70-1.30 [facility] Comment on above: Performed By: #### C BC #### [address] Creatinine Clr Calc Pharmacy 61.43 Normal [facility] Comment on above: Result Comment: PERF ORMED BY: [place] [address] PATHOLOGIST BLACK LEATHER TRIMMER SHAKA CASTILLO M.D. Performed By: #### C BC #### [place] [address] [place] GFR/1.73 sq M.predicted MDRD (S/P/Bld) [Vol rate/Area] mL/min/{1.73_m2} Normal [facility] Comment on above: Performed By: #### C BC #### [address] Glucose [Mass/Vol] 103 mg/dL High 70-100 [facility] Comment on above: Result Comment: [facility] [place][note 2] Glucose Reference Range is dependent on time and content of last meal. Glucose of more than 200 mg/dL in a nonstressed, ambulatory subject supports the diagnosis of Diabetes Mellitus. ADA recommended reference range Performed By: #### C BC #### [address] Potassium [Moles/Vol] 4.5 mmol/L Normal 3.5-5.1 [facility] Comment on above: Performed By: #### C BC #### [address] Sodium [Moles/Vol] 140 mmol/L Normal 136-145 [facility] Comment on above: Performed By: #### C BC #### [address] Urea nitrogen [Mass/Vol] 14 mg/dL Normal 7-25 [facility] Comment on above: Performed By: #### C BC #### [address] Basic Metabolic Panelon 06-0 -2022 Anion gap [Moles/Vol] 8.6 mmol/L Normal 6.0-15.0 [facility] Comment on above: Performed By: #### B EDGER MACHINE OPERATOR #### [address] Calcium [Mass/Vol] 8.4 mg/dL Low 8.6-10.3 [facility] Comment on above: Performed By: #### B EDGER MACHINE OPERATOR #### [place] [address] [place] Chloride [Moles/Vol] 110 mmol/L High 98-107 [facility] Comment on above: Performed By: #### B EDGER MACHINE OPERATOR #### [address] CO2 [Moles/Vol] 26.5 mmol/L Normal 21.0-31.0 [facility] Comment on above: Performed By: #### B EDGER MACHINE OPERATOR #### [address] Creatinine [Mass/Vol] 1.47 mg/dL High 0.70-1.30 [facility] Comment on above: Performed By: #### B EDGER MACHINE OPERATOR #### [place] [address] [place] Creatinine Clr Calc Pharmacy 57.25 Normal [facility] Comment on above: Result Comment: PERF ORMED BY: [place] [address] PATHOLOGIST BLACK LEATHER TRIMMER SHAKA CASTILLO M.D. Performed By: #### B EDGER MACHINE OPERATOR #### [place] [address] [place] GFR/1.73 sq M.predicted MDRD (S/P/Bld) [Vol rate/Area] 55.289 mL/min/{1.73_m2} Normal [facility] Comment on above: Performed By: #### B EDGER MACHINE OPERATOR #### [address] Glucose [Mass/Vol] 101 mg/dL High 70-100 [facility] Comment on above: Result Comment: [place] Glucose Reference Range is dependent on time and content of last meal. Glucose of more than 200 mg/dL in a nonstressed, ambulatory subject supports the diagnosis of Diabetes Mellitus. ADA recommended reference range Performed By: #### B EDGER MACHINE OPERATOR #### [place] [address] [place] Potassium [Moles/Vol] 4.1 mmol/L Normal 3.5-5.1 [facility] Comment on above: Performed By: #### B EDGER MACHINE OPERATOR #### [place] [address] [place] Sodium [Moles/Vol] 141 mmol/L Normal 136-145 [facility] Comment on above: Performed By: #### B EDGER MACHINE OPERATOR #### [address] Urea nitrogen [Mass/Vol] 14 mg/dL Normal 7-25 [facility] Comment on above: Performed By: #### B EDGER MACHINE OPERATOR #### [facility] [address] Basic Metabolic Panelon 06-0 -2022 Anion gap [Moles/Vol] 7.7 mmol/L Normal 6.0-15.0 [facility] Comment on above: Performed By: #### C BC #### [facility] [address] Calcium [Mass/Vol] 8.2 mg/dL Low 8.6-10.3 The [facility] Comment on above: Performed By: #### C BC #### [address] Chloride [Moles/Vol] 110 mmol/L High 98-107 [facility] Comment on above: Performed By: #### C BC #### [address] CO2 [Moles/Vol] 25.3 mmol/L Normal 21.0-31.0 The [facility] Comment on above: Performed By: #### C BC #### [address] Creatinine [Mass/Vol] 1.07 mg/dL Normal 0.70-1.30 [facility] Comment on above: Performed By: #### C BC #### [address] Creatinine Clr Calc Pharmacy 78.65 Normal [facility] Comment on above: Result Comment: PERF ORMED BY: [place] [address] PATHOLOGIST BLACK LEATHER TRIMMER SHAKA CASTILLO M.D. Performed By: #### C BC #### [place] [address] [place] GFR/1.73 sq M.predicted MDRD (S/P/Bld) [Vol rate/Area] mL/min/{1.73_m2} Normal [facility] Comment on above: Performed By: #### C BC #### [address] Glucose [Mass/Vol] 105 mg/dL High 70-100 [facility] Comment on above: Result Comment: [place] Glucose Reference Range is dependent on time and content of last meal. Glucose of more than 200 mg/dL in a nonstressed, ambulatory subject supports the diagnosis of Diabetes Mellitus. ADA recommended reference range Performed By: #### C BC #### [address] Potassium [Moles/Vol] 4.0 mmol/L Normal 3.5-5.1 [facility] Comment on above: Performed By: #### C BC #### [address] Sodium [Moles/Vol] 139 mmol/L Normal 136-145 [facility] Comment on above: Performed By: #### C BC #### [address] Urea nitrogen [Mass/Vol] 14 mg/dL Normal 7-25 [facility] Comment on above: Performed By: #### C BC #### [address] Complete Blood Count Auto Di ffon 03-15-2023 Basophils (Bld) [#/Vol] 0.0 10*3/uL Normal 0.0-0.2 [facility] Comment on above: Result Comment: PERF ORMED BY: [place] [address] PATHOLOGIST BLACK LEATHER TRIMMER SHAKA CASTILLO M.D. Performed By: #### B EDGER MACHINE OPERATOR #### [place] [address] [place] Basophils/100 WBC (Bld) 0.3 % Normal . [facility] Comment on above: Performed By: #### B EDGER MACHINE OPERATOR #### [address] Eosinophils (Bld) [#/Vol] 0.2 10*3/uL Normal 0.0-0.45 [facility] Comment on above: Performed By: #### B EDGER MACHINE OPERATOR #### [address] Eosinophils/100 WBC (Bld) 3.6 % Normal . [facility] Comment on above: Performed By: #### B EDGER MACHINE OPERATOR #### [address] Erythrocyte distribution width (RBC) [Ratio] 13.8 % Normal 12.0-14.8 [facility] Comment on above: Performed By: #### B EDGER MACHINE OPERATOR #### [address] Hematocrit (Bld) [Volume fraction] 29.9 % Low 38.8-50.0 [facility] Comment on above: Performed By: #### B EDGER MACHINE OPERATOR #### [address] Hemoglobin (Bld) [Mass/Vol] 10.2 g/dL Low 13.0-17.0 [facility] Comment on above: Performed By: #### B EDGER MACHINE OPERATOR #### [address] Lymphocytes (Bld) [#/Vol] 2.0 10*3/uL Normal 1.00-4.8 [facility] Comment on above: Performed By: #### B EDGER MACHINE OPERATOR #### [address] Lymphocytes/100 WBC (Bld) 40.2 % Normal . [facility] Comment on above: Performed By: #### B EDGER MACHINE OPERATOR #### [address] MCH (RBC) [Entitic mass] 30.8 pg Normal 27.5-35.2 [facility] Comment on above: Performed By: #### B EDGER MACHINE OPERATOR #### [address] MCV (RBC) [Entitic vol] 90.7 fL Normal 83.5-101 [facility] Comment on above: Performed By: #### B EDGER MACHINE OPERATOR #### [address] Mean Corpuscular HGB Conc 34.0 g/dL Normal 32.5-35.6 [facility] Comment on above: Performed By: #### B EDGER MACHINE OPERATOR #### [place] [address] [place] Monocytes (Bld) [#/Vol] 0.5 10*3/uL Normal 0.0-0.8 [facility] Comment on above: Performed By: #### B EDGER MACHINE OPERATOR #### [place] [address] [place] Monocytes/100 WBC (Bld) 10.4 % Normal . [facility] Comment on above: Performed By: #### B EDGER MACHINE OPERATOR #### [address] Neutrophils (Bld) [#/Vol] 2.3 10*3/uL Normal 1.8-7.7 [facility] Comment on above: Performed By: #### B EDGER MACHINE OPERATOR #### [address] Neutrophils/100 WBC (Bld) 45.5 % Normal . [facility] Comment on above: Performed By: #### B EDGER MACHINE OPERATOR #### [address] NRBC% 0.3 /100{WBC} Normal 0-0.5 [facility] Comment on above: Performed By: #### B EDGER MACHINE OPERATOR #### [address] Platelet mean volume (Bld) [Entitic vol] 6.8 fL Normal 6.6-10.1 [facility] Comment on above: Performed By: #### B EDGER MACHINE OPERATOR #### [place] [address] [place] Platelets (Bld) [#/Vol] 350 10*3/uL Normal 150-450 [facility] Comment on above: Performed By: #### B EDGER MACHINE OPERATOR #### [address] RBC (Bld) [#/Vol] 3.30 10*6/uL Low 3.90-5.60 [facility] Comment on above: Performed By: #### B EDGER MACHINE OPERATOR #### [address] WBC (Bld) [#/Vol] 5.1 10*3/uL Normal 4.1-10.5 [facility] Comment on above: Performed By: #### B EDGER MACHINE OPERATOR #### [address] Basic Metabolic Panelon 060 Anion gap [Moles/Vol] 12.0 mmol/L Normal 6.0-15.0 [facility] Comment on above: Performed By: #### B MP #### [address] Calcium [Mass/Vol] 8.6 mg/dL Normal 8.6-10.3 [facility] Comment on above: Performed By: #### B MP #### [address] Chloride [Moles/Vol] 106 mmol/L Normal 98-107 [facility] Comment on above: Performed By: #### B MP #### [address] CO2 [Moles/Vol] 26.3 mmol/L Normal 21.0-31.0 [facility] Comment on above: Performed By: #### B MP #### [address] Creatinine [Mass/Vol] 1.43 mg/dL High 0.70-1.30 [facility] Comment on above: Performed By: #### B MP #### [address] Creatinine Clr Calc Pharmacy 58.85 Normal [facility] Comment on above: Result Comment: PERF ORMED BY: [place] [address] PATHOLOGIST BLACK LEATHER TRIMMER SHAKA CASTILLO M.D. Performed By: #### B MP #### [address] GFR/1.73 sq M.predicted MDRD (S/P/Bld) [Vol rate/Area] 57.150 mL/min/{1.73_m2} Normal [facility] Comment on above: Performed By: #### B MP #### [address] Glucose [Mass/Vol] 84 mg/dL Normal 70-100 [facility] Comment on above: Result Comment: [facility] [place][note 2] Glucose Reference Range is dependent on time and content of last meal. Glucose of more than 200 mg/dL in a nonstressed, ambulatory subject supports the diagnosis of Diabetes Mellitus. ADA recommended reference range Performed By: #### B MP #### [address] Potassium [Moles/Vol] 4.3 mmol/L Normal 3.5-5.1 [facility] Comment on above: Performed By: #### B MP #### [address] Sodium [Moles/Vol] 140 mmol/L Normal 136-145 [facility] Comment on above: Performed By: #### B MP #### [address] Urea nitrogen [Mass/Vol] 17 mg/dL Normal 7-25 [facility] Comment on above: Performed By: #### B MP #### [address] Basophils Auto (Bld) [#/Vol] Ordered By: Luna Jaquez on 03-14-2023 Basophils (Bld) [#/Vol] 0.1 10*3/uL 0.0-0.2 [facility] Basophils/100 WBC Auto (Bld) Ordered By: Luna Jaquez on 03-14-2023 Basophils/100 WBC (Bld) 1.0 % . [facility] Calcium [Mass/volume] in Ser um or PlasmaOrdered By: Luna Jaquez on 03-14-2023 Calcium [Mass/Vol] 8.6 mg/dL 8.6-10.3 [facility] Carbon dioxide, total [Moles /volume] in Serum or PlasmaOrdered By: Luna Jaquez on 03-14-2023 CO2 [Moles/Vol] 26.3 mmol/L 21.0-31.[address] [facility] Chloride [Moles/volume] in S stacia or PlasmaOrdered By: Luna Jaquez on 03-14-2023 Chloride [Moles/Vol] 106 mmol/L 98-107 [facility] Complete Blood Count Auto Di ffon 03-14-2023 Basophils (Bld) [#/Vol] 0.1 10*3/uL Normal 0.0-0.2 [facility] Comment on above: Result Comment: PERF ORMED BY: [place] [address] PATHOLOGIST BLACK LEATHER TRIMMER SHAKA CASTILLO M.D. Performed By: #### C BC #### [address] Basophils/100 WBC (Bld) 1.0 % Normal . [facility] Comment on above: Performed By: #### C BC #### [address] Eosinophils (Bld) [#/Vol] 0.2 10*3/uL Normal 0.0-0.45 [facility] Comment on above: Performed By: #### C BC #### [address] Eosinophils/100 WBC (Bld) 2.3 % Normal . [facility] Comment on above: Performed By: #### C BC #### [address] Erythrocyte distribution width (RBC) [Ratio] 13.5 % Normal 12.0-14.8 [facility] Comment on above: Performed By: #### C BC #### [address] Hematocrit (Bld) [Volume fraction] 31.6 % Low 38.8-50.0 [facility] Comment on above: Performed By: #### C BC #### [address] Hemoglobin (Bld) [Mass/Vol] 10.6 g/dL Low 13.0-17.0 [facility] Comment on above: Performed By: #### C BC #### [address] Lymphocytes (Bld) [#/Vol] 2.7 10*3/uL Normal 1.00-4.8 [facility] Comment on above: Performed By: #### C BC #### [address] Lymphocytes/100 WBC (Bld) 41.4 % Normal . [facility] Comment on above: Performed By: #### C BC #### [address] MCH (RBC) [Entitic mass] 30.5 pg Normal 27.5-35.2 [facility] Comment on above: Performed By: #### C BC #### [address] MCV (RBC) [Entitic vol] 91.2 fL Normal 83.5-101 [facility] Comment on above: Performed By: #### C BC #### [address] Mean Corpuscular HGB Conc 33.5 g/dL Normal 32.5-35.6 [facility] Comment on above: Performed By: #### C BC #### [address] Monocytes (Bld) [#/Vol] 0.6 10*3/uL Normal 0.0-0.8 [facility] Comment on above: Performed By: #### C BC #### [address] Monocytes/100 WBC (Bld) 8.6 % Normal . [facility] Comment on above: Performed By: #### C BC #### [address] Neutrophils (Bld) [#/Vol] 3.0 10*3/uL Normal 1.8-7.7 [facility] Comment on above: Performed By: #### C BC #### [facility] [address] [place] [address] [place] Neutrophils/100 WBC (Bld) 46.7 % Normal . [facility] Comment on above: Performed By: #### C BC #### [facility] [address] [place] [address] [place] NRBC% 0.1 /100{WBC} Normal 0-0.5 [facility] Comment on above: Performed By: #### C BC #### [facility] [address] Platelet mean volume (Bld) [Entitic vol] 7.1 fL Normal 6.6-10.[address] [facility] Comment on above: Performed By: #### C BC #### [facility] [address] [place] [id number] [place] Platelets (Bld) [#/Vol] 387 10*3/uL Normal 150-450 [facility] Comment on above: Performed By: #### C BC #### [facility] [address] [place] [id number] [place] RBC (Bld) [#/Vol] 3.47 10*6/uL Low 3.90-5.60 [facility] Comment on above: Performed By: #### C BC #### [facility] [address] [place] [id number] [place] WBC (Bld) [#/Vol] 6.5 10*3/uL Normal 4.1-10.5 [facility] Comment on above: Performed By: #### C BC #### [facility] [address] [place] [id number] [facility] Creatinine [Mass/volume] in Serum or PlasmaOrdered By: Luna Jaquez on 03-14-2023 Creatinine [Mass/Vol] 1.43 mg/dL 0.70-1.30 [facility] Creatinine, Urine (Random)on 03-14-2023 Creatinine, Urine (Random) 127.0 mg/dL High 14.0-26.0 [facility] Comment on above: Performed By: #### C BC #### [facility] [address] [place] [address] [place] Eosinophils Auto (Bld) [#/Vo l]Ordered By: Luna Jaquez on 03-14-2023 Eosinophils (Bld) [#/Vol] 0.2 10*3/uL 0.0-0.45 [facility] Eosinophils/100 WBC Auto (Bl d)Ordered By: Luna Jaquez on 03-14-2023 Eosinophils/100 WBC (Bld) 2.3 % . [facility] Erythrocyte distribution wid th Auto (RBC) [Ratio]Ordered By: Luna Jaquez on 03-14-2023 Erythrocyte distribution width (RBC) [Ratio] 13.5 % 12.0-14.8 [facility] Glucose [Mass/volume] in Ser um or PlasmaOrdered By: Luna Jaquez on 03-14-2023 Glucose [Mass/Vol] 84 mg/dL 70-100 [facility] Comment on above: ADA recommended refe rence rangeRandom Glucose Reference Range is dependent on time and content of last meal. Glucose of more than 200 mg/dL in a nonstressed, ambulatory subject supports the diagnosis of Diabetes Mellitus. HIV Screen ([facility])on HIV Screen ([facility]) Non-Reactive Normal Nonreactive [facility] Comment on above: Order Comment: Which is this, the Source or the Person with the Exposure?: SOURCE Source Medical Record: [id number] Exposed Result Comment: PERF ORMED BY: [place] [address] PATHOLOGIST BLACK LEATHER TRIMMER SHAKA CASTILLO M.D. Performed By: #### H BSAG, HBSAB, HCV RX PCR #### [facility] , #### HIV12 #### [facility] [address] [place] [address] HIV Screen ChemBioOrdered By : Oswaldo Andrea on 03-14-2023 HIV 1+2 IgG IA.rapid Ql (Bld) Non-Reactive Nonreactive [facility] Hematocrit Auto (Bld) [Volum e fraction]Ordered By: Luna Leonid on 03-14-2023 Hematocrit (Bld) [Volume fraction] 31.6 % 38.8-50.0 [facility] Hemoglobin [Mass/volume] in BloodOrdered By: Luna Leonid on 03-14-2023 Hemoglobin (Bld) [Mass/Vol] 10.6 g/dL 13.0-17.0 [facility] Hep C Ab wRfx to Qnt PCRon 0 03-14-2023 Hepatitis C Virus Antibody Non-Reactive Normal Non Reactive [facility] Comment on above: Order Comment: Which is this, the Source or the Person with the Exposure?: SOURCE Source Medical Record: [id number] Exposed Performed By: #### H BSAG, HBSAB, HCV RX PCR #### [facility] , #### HIV12 #### [address] Interpretation Hepatitis C Normal . [facility] Comment on above: Order Comment: Which is this, the Source or the Person with the Exposure?: SOURCE Source Medical Record: [id number] Exposed Result Comment: Not infected with HCV unless early or acute infection is suspected (which may be delayed in an immunocompromised individual), or other evidence exists to indicate HCV infection. Performed By: #### H BSAG, HBSAB, HCV RX PCR #### [facility] , #### HIV12 #### [facility] [address] [place] [address] Hepatitis B Surface Antibody on 03-14-2023 Hepatitis B Surface Antibody Non-Reactive Normal . [facility] Comment on above: Order Comment: Which is this, the Source or the Person with the Exposure?: SOURCE Source Medical Record: [id number] Exposed Result Comment: Non Reactive: Inconsistent with immunity, less than 10 mIU/mL Reactive: Consistent with immunity, greater than 9.9 mIU/mL Performed By: #### H BSAG, HBSAB, HCV RX PCR #### [facility] , #### HIV12 #### [facility] [address] Hepatitis B Surface Antigeno n 03-14-2023 HBsAg Screen Negative Normal Negative [facility] Comment on above: Order Comment: Which is this, the Source or the Person with the Exposure?: SOURCE Source Medical Record: [id number] Exposed Result Comment: Perf ormed at: CB - [facility] [address] [id number] Registered Dietetic Technician: Feng Roman PhD, Phone: [phone] PERFORMED BY: [place] [address] PATHOLOGIST BLACK LEATHER TRIMMER SHAKA CASTILLO M.D. Performed By: #### H BSAG, HBSAB, HCV RX PCR #### [facility] , #### HIV12 #### [facility] [address] [place] [address] Leukocytes [#/volume] correc barbara for nucleated erythrocytes in Blood by Automated counOrdered By: Luna Jaquez on 03-14-2023 WBC corrected for nucl RBC Auto (Bld) [#/Vol] 6.5 10*3/uL 4.1-10.5 [facility] Lymphocytes Auto (Bld) [#/Vo l]Ordered By: Luna Jaquez on 03-14-2023 Lymphocytes (Bld) [#/Vol] 2.7 10*3/uL 1.00-4.8 [facility] Lymphocytes/100 WBC Auto (Bl d)Ordered By: Luna Jaquez on 03-14-2023 Lymphocytes/100 WBC (Bld) 41.4 % . [facility] MCH Auto (RBC) [Entitic mass ]Ordered By: Luna Jaquez on 03-14-2023 MCH (RBC) [Entitic mass] 30.5 pg 27.5-35.2 [facility] MCHC Auto (RBC) [Mass/Vol]Or dered By: Luna Jaquez on 03-14-2023 MCHC (RBC) [Mass/Vol] 33.5 g/dL 32.5-35.6 [facility] MCV Auto (RBC) [Entitic vol] Ordered By: Luna Jaquez on 03-14-2023 MCV (RBC) [Entitic vol] 91.2 fL 83.5-101 [facility] Monocytes Auto (Bld) [#/Vol] Ordered By: Luna Jaquez on 03-14-2023 Monocytes (Bld) [#/Vol] 0.6 10*3/uL 0.0-0.8 [facility] Monocytes/100 WBC Auto (Bld) Ordered By: Luna Jaquez on 03-14-2023 Monocytes/100 WBC (Bld) 8.6 % . [facility] Neutrophils Auto (Bld) [#/Vo l]Ordered By: Luna Jaquez on 03-14-2023 Neutrophils (Bld) [#/Vol] 3.0 10*3/uL 1.8-7.7 [facility] Neutrophils/100 WBC Auto (Bl d)Ordered By: Luna Jaquez on 03-14-2023 Neutrophils/100 WBC (Bld) 46.7 % . [facility] No Panel InformationOrdered By: Luna Jaquez on 03-14-2023 Estimated GFR (CKD-EPI) 57.150 mL/Min [facility] Creatinine Clearance (Chem 58.85 [facility] Nucleated erythrocytes [Pres ence] in Blood by Automated countOrdered By: Luna Jaquez on 03-14-2023 Nucleated RBC Auto Ql (Bld) 0.1 /100{WBC} 0-0.5 [facility] Platelet mean volume Auto (B ld) [Entitic vol]Ordered By: Luna Jaquez on 03-14-2023 Platelet mean volume (Bld) [Entitic vol] 7.1 fL 6.6-10.1 [facility] Platelets Auto (Bld) [#/Vol] Ordered By: Luna Jaquez on 03-14-2023 Platelets (Bld) [#/Vol] 387 10*3/uL 150-450 [facility] Potassium [Moles/volume] in Serum or PlasmaOrdered By: Luna Jaquez on 03-14-2023 Potassium [Moles/Vol] 4.3 mmol/L 3.5-5.1 [facility] RBC Auto (Bld) [#/Vol]Ordere d By: Luna Jaquez on 03-14-2023 RBC (Bld) [#/Vol] 3.47 10*6/uL 3.90-5.60 [facility] Serum or plasma anion gap de terminationOrdered By: Luna Jaquez on 03-14-2023 Anion gap [Moles/Vol] 12.0 mmol/L 6.0-15.0 [facility] Sodium [Moles/volume] in Ser um or PlasmaOrdered By: Luna Jaquez on 03-14-2023 Sodium [Moles/Vol] 140 mmol/L 136-145 [facility] Sodium, Urine (Random)on Sodium (U) [Moles/Vol] 78 mmol/L Normal [facility] Comment on above: Result Comment: No r eference range established PERFORMED BY: [place] [address] PATHOLOGIST BLACK LEATHER TRIMMER SHAKA CASTILLO M.D. Performed By: #### C #### [address] US venous duplex LE BIon US venous duplex LE BI [facility] [place] [address] [place] [address] Ultrasound Report Signed Patient: Vandana Stringer MR#: [id number] : 1965 Acct:[id number] Age/Sex: 58 / M ADM Date: 03/13/23 Loc: Room: [address] [place] [address] Type: ADM IN Attending Dr: Cornelio Walker MD Ordering Provider: Luna Jaquez APRN Date of Service: 03/14/23 US/US venous duplex LE BI: BLE EDEMA Copies to: MD Luna Gonsales APRN Bilateral lower extremity venous duplex examination Indication for study: Swollen left leg PROCEDURE: Color-flow duplex scanning is used to interrogate the bilateral lower extremity venous system. In the right leg there is no abnormality. The right common femoral vein, femoral vein, and popliteal veins show good compressibility, color-flow, and augmentation. The calf veins and saphenous vein are compressible. The left leg demonstrates acute deep vein thrombosis extending from the common femoral vein through the calf veins and involving the saphenous vein. US/US venous duplex LE BI IMPRESSION: This examination is positive for acute left leg deep vein thrombosis involving the common femoral vein and extending through the calf veins Impression dictated by: Shmuel Murrell M.D.03/14/2023 2:55 PM Dictation Location: [place] [address] Tech: Tamela Ojeda Transcribed By: SHAYNA 03/14/231454 Dictated By: Shmuel Murrell MD 03/14/231449 Signed By: 03/14/231454 Normal [facility] Urea nitrogen [Mass/volume] in Serum or PlasmaOrdered By: Luna Jaquez on 03-14-2023 Urea nitrogen [Mass/Vol] 17 mg/dL 05-03 [facility] Urinalysison 03-14-2023 Appearance (U) Clear Normal Clear [facility] Comment on above: Order Comment: Name Collection Type:: Voided Performed By: #### C BC #### [place] [address] [place] Bilirubin,Urine Negative Normal Negative [facility] Comment on above: Order Comment: Name Collection Type:: Voided Performed By: #### C BC #### [place] [id number] [place] Color (U) Yellow Normal Yellow [facility] Comment on above: Order Comment: Name Collection Type:: Voided Performed By: #### C BC #### [place] [id number] [place] Glucose Ql (U) Normal Normal Normal [facility] Comment on above: Order Comment: Name Collection Type:: Voided Performed By: #### C BC #### [place] [id number] [place] Ketones Ql (U) 1+ High Negative [facility] Comment on above: Order Comment: Name Collection Type:: Voided Performed By: #### C BC #### [address] Leukocyte esterase Test strip Ql (U) Negative Normal Negative [facility] Comment on above: Order Comment: Name Collection Type:: Voided Performed By: #### C BC #### [address] Nitrite,Urine Negative Normal Negative [facility] Comment on above: Order Comment: Name Collection Type:: Voided Performed By: #### C BC #### [address] Occult Blood,Urine Negative Normal Negative [facility] Comment on above: Order Comment: Name Collection Type:: Voided Result Comment: PERF ORMED BY: [place] [address] PATHOLOGIST BLACK LEATHER TRIMMER SHAKA CASTILLO M.D. Performed By: #### C BC #### [address] pH (U) 7.0 [pH] Normal 5.0-9.0 The [facility] Comment on above: Order Comment: Name Collection Type:: Voided Performed By: #### C BC #### [address] Protein,Urine Negative Normal Negative [facility] Comment on above: Order Comment: Name Collection Type:: Voided Performed By: #### C BC #### [address] Specificy [place],Urine 1.015 Normal 1.001-1.030 [facility] Comment on above: Order Comment: Name Collection Type:: Voided Performed By: #### C BC #### [address] Urobilinogen,Urine Normal Normal Normal [facility] Comment on above: Order Comment: Name Collection Type:: Voided Performed By: #### C BC #### [address] Urine Urea Nitrogenon 2022 Urine Urea Nitrogen 680 mg/dL Normal Not Estab. [facility] Comment on above: Result Comment: Perf ormed at: CB - [facility] [address], [place], [place] [id number] Registered Dietetic Technician: Feng Roman PhD, Phone: [phone] PERFORMED BY: [place] [address] PATHOLOGIST BLACK LEATHER TRIMMER SHAKA CASTILLO M.D. Performed By: #### C BC #### [address] WBC Auto (Bld) [#/Vol]Ordere d By: Luna Jaquez on 03-14-2023 WBC (Bld) [#/Vol] 6.5 10*3/uL 4.1-10.5 [facility] Alanine aminotransferase [En zymatic activity/volume] in Serum or PlasmaOrdered By: Gregory House on 03-13-2023 ALT [Catalytic activity/Vol] 17 U/L 7-52 [facility] Albumin [Mass/volume] in Ser um or Plasma by Bromocresol green (BCG) dye binding methoOrdered By: Gregory House on 03-13-2023 Albumin BCG dye [Mass/Vol] 3.4 g/dL 3.5-5.7 [facility] Alkaline phosphatase [Enzyma tic activity/volume] in Serum or PlasmaOrdered By: Gregory House on 03-13-2023 ALP [Catalytic activity/Vol] 138 U/L 34-104 [facility] Ammoniaon 03-13-2023 Ammonia (P) [Moles/Vol] 32 umol/L Normal 11-35 [facility] Comment on above: Result Comment: PERF ORMED BY: [address] [address] PATHOLOGIST BL[employer] LEATHER TRIMMER SHAKA CASTILLO M.D. Performed By: #### B EDGER MACHINE OPERATOR #### [address] [facility] Ammonia [Moles/volume] in Pl asmaOrdered By: Gregory House on 03-13-2023 Ammonia (P) [Moles/Vol] 32 umol/L 11-35 [facility] Aspartate aminotransferase [ Enzymatic activity/volume] in Serum or PlasmaOrdered By: Gregory House on 03-13-2023 AST [Catalytic activity/Vol] 51 U/L [facility] B-Type Natriuretic Peptideon 03-13-2023 Natriuretic peptide B (Bld) [Mass/Vol] 41.0 pg/mL Normal 5-100 [facility] Comment on above: Result Comment: PERF ORMED BY: [place] [address] PATHOLOGIST BLACK LEATHER TRIMMER SHAKA CASTILLO M.D. Performed By: #### B EDGER MACHINE OPERATOR #### [address] Natriuretic peptide B (Bld) [Mass/Vol] 28.0 pg/mL Normal 5-100 [facility] Comment on above: Order Comment: Comme nt add Result Comment: PERF ORMED BY: [place] [address] PATHOLOGIST BL[employer] LEATHER TRIMMER SHAKA CASTILLO M.D. Performed By: #### B EDGER MACHINE OPERATOR #### [address] Basic Metabolic Panelon Anion gap [Moles/Vol] 13.5 mmol/L Normal 6.0-15.0 [facility] Comment on above: Performed By: #### B EDGER MACHINE OPERATOR #### [place] [address] [place] Calcium [Mass/Vol] 9.4 mg/dL Normal 8.6-10.3 [facility] Comment on above: Performed By: #### B EDGER MACHINE OPERATOR #### [place] [address] [place] Chloride [Moles/Vol] 104 mmol/L Normal 98-107 [facility] Comment on above: Performed By: #### B EDGER MACHINE OPERATOR #### [address] CO2 [Moles/Vol] 26.1 mmol/L Normal 21.0-31.0 [facility] Comment on above: Performed By: #### B EDGER MACHINE OPERATOR #### [address] Creatinine [Mass/Vol] 1.76 mg/dL High 0.70-1.30 [facility] Comment on above: Performed By: #### B EDGER MACHINE OPERATOR #### [address] Creatinine Clr Calc Pharmacy 47.81 Normal [facility] Comment on above: Performed By: #### B EDGER MACHINE OPERATOR #### [place] [address] [place] GFR/1.73 sq M.predicted MDRD (S/P/Bld) [Vol rate/Area] 44.545 mL/min/{1.73_m2} Normal [facility] Comment on above: Performed By: #### B EDGER MACHINE OPERATOR #### [address] Glucose [Mass/Vol] 95 mg/dL Normal 70-100 [facility] Comment on above: Result Comment: [facility] [place][note 2] Glucose Reference Range is dependent on time and content of last meal. Glucose of more than 200 mg/dL in a nonstressed, ambulatory subject supports the diagnosis of Diabetes Mellitus. ADA recommended reference range Performed By: #### B EDGER MACHINE OPERATOR #### [address] Potassium [Moles/Vol] 4.6 mmol/L Normal 3.5-5.1 [facility] Comment on above: Performed By: #### B EDGER MACHINE OPERATOR #### [address] Sodium [Moles/Vol] 139 mmol/L Normal 136-145 [facility] Comment on above: Performed By: #### B EDGER MACHINE OPERATOR #### [address] Urea nitrogen [Mass/Vol] 23 mg/dL Normal 7-25 [facility] Comment on above: Performed By: #### B EDGER MACHINE OPERATOR #### [place] [address] [place] Basophils Auto (Bld) [#/Vol] Ordered By: Gregory House on 03-13-2023 Basophils (Bld) [#/Vol] 0.1 10*3/uL 0.0-0.2 [facility] Basophils/100 WBC Auto (Bld) Ordered By: Gregory House on 03-13-2023 Basophils/100 WBC (Bld) 1.2 % . [facility] Bilirubin Test strip Ql (U)O rdered By: Luna Jaquez on 03-13-2023 Bilirubin Ql (U) Negative Negative [facility] Bilirubin.direct [Mass/volum e] in Serum or PlasmaOrdered By: Gregory House on 03-13-2023 Bilirubin.direct [Mass/Vol] 0.20 mg/dL 0.03-0.18 [facility] Bilirubin.total [Mass/volume ] in Serum or PlasmaOrdered By: Gregory House on 03-13-2023 Bilirubin [Mass/Vol] 0.8 mg/dL 0.3-1.0 [facility] Blood Cultureon 03-13-2023 Bacteria identified Cx Nom (Bld) NO GROWTH 5 DAYS PERFORMED BY: [place] [address] PATHOLOGIST BL[employer] LEATHER TRIMMER SHAKA CASTILLO M.D. Normal [facility] Comment on above: Performed By: #### B EDGER MACHINE OPERATOR #### [facility] [address] [place] [address] Bacteria identified Cx Nom (Bld) NO GROWTH 5 DAYS PERFORMED BY: [facility] [address] [place] [address] PATHOLOGIST BL[employer] LEATH[employer] TRIMMER SHAKA CASTILLO M.D. Normal [facility] Comment on above: Performed By: #### B EDGER MACHINE OPERATOR #### [facility] [address] [place] [address] Calcium [Mass/volume] in Ser um or PlasmaOrdered By: Gregory House on 03-13-2023 Calcium [Mass/Vol] 9.4 mg/dL 8.6-10.3 [facility] Carbon dioxide, total [Moles /volume] in Serum or PlasmaOrdered By: Gregory House on 03-13-2023 CO2 [Moles/Vol] 26.1 mmol/L 21.0-31.[address] [facility] Chloride [Moles/volume] in S stacia or PlasmaOrdered By: Gregory House on 03-13-2023 Chloride [Moles/Vol] 104 mmol/L 98-107 [facility] Color Auto (U)Ordered By: Figueroa xochilt Jaquez on 03-13-2023 Color (U) Yellow Yellow [facility] Complete Blood Count Auto Di ffon 03-13-2023 Basophils (Bld) [#/Vol] 0.1 10*3/uL Normal 0.0-0.2 [facility] Comment on above: Result Comment: PERF ORMED BY: [place] [address] PATHOLOGIST BL[employer] LEATHER TRIMMER SHAKA CASTILLO M.D. Performed By: #### B EDGER MACHINE OPERATOR #### [address] Basophils/100 WBC (Bld) 1.2 % Normal . [facility] Comment on above: Performed By: #### B EDGER MACHINE OPERATOR #### [address] Eosinophils (Bld) [#/Vol] 0.1 10*3/uL Normal 0.0-0.45 [facility] Comment on above: Performed By: #### B EDGER MACHINE OPERATOR #### [address] Eosinophils/100 WBC (Bld) 1.0 % Normal . [facility] Comment on above: Performed By: #### B EDGER MACHINE OPERATOR #### [address] Erythrocyte distribution width (RBC) [Ratio] 13.4 % Normal 12.0-14.8 [facility] Comment on above: Performed By: #### B EDGER MACHINE OPERATOR #### [address] Hematocrit (Bld) [Volume fraction] 34.6 % Low 38.8-50.0 [facility] Comment on above: Performed By: #### B EDGER MACHINE OPERATOR #### [address] Hemoglobin (Bld) [Mass/Vol] 11.7 g/dL Low 13.0-17.0 [facility] Comment on above: Performed By: #### B EDGER MACHINE OPERATOR #### [address] Lymphocytes (Bld) [#/Vol] 1.2 10*3/uL Normal 1.00-4.8 [facility] Comment on above: Performed By: #### B EDGER MACHINE OPERATOR #### [address] Lymphocytes/100 WBC (Bld) 16.4 % Normal . [facility] Comment on above: Performed By: #### B EDGER MACHINE OPERATOR #### [address] MCH (RBC) [Entitic mass] 30.5 pg Normal 27.5-35.2 [facility] Comment on above: Performed By: #### B EDGER MACHINE OPERATOR #### [address] MCV (RBC) [Entitic vol] 90.4 fL Normal 83.5-101 [facility] Comment on above: Performed By: #### B EDGER MACHINE OPERATOR #### [address] Mean Corpuscular HGB Conc 33.7 g/dL Normal 32.5-35.6 [facility] Comment on above: Performed By: #### B EDGER MACHINE OPERATOR #### [address] Monocytes (Bld) [#/Vol] 0.8 10*3/uL Normal 0.0-0.8 [facility] Comment on above: Performed By: #### B EDGER MACHINE OPERATOR #### [address] Monocytes/100 WBC (Bld) 10.2 % Normal . [facility] Comment on above: Performed By: #### B EDGER MACHINE OPERATOR #### [address] Neutrophils (Bld) [#/Vol] 5.3 10*3/uL Normal 1.8-7.7 [facility] Comment on above: Performed By: #### B EDGER MACHINE OPERATOR #### [address] Neutrophils/100 WBC (Bld) 71.2 % Normal . [facility] Comment on above: Performed By: #### B EDGER MACHINE OPERATOR #### [address] NRBC% 0.1 /100{WBC} Normal 0-0.5 [facility] Comment on above: Performed By: #### B EDGER MACHINE OPERATOR #### [address] Platelet mean volume (Bld) [Entitic vol] 6.5 fL Low 6.6-10.[address] [facility] Comment on above: Performed By: #### B EDGER MACHINE OPERATOR #### [address] Platelets (Bld) [#/Vol] 391 10*3/uL Normal 150-450 [facility] Comment on above: Performed By: #### B EDGER MACHINE OPERATOR #### [address] RBC (Bld) [#/Vol] 3.83 10*6/uL Low 3.90-5.60 [facility] Comment on above: Performed By: #### B EDGER MACHINE OPERATOR #### [address] WBC (Bld) [#/Vol] 7.4 10*3/uL Normal 4.1-10.5 [facility] Comment on above: Performed By: #### B EDGER MACHINE OPERATOR #### [address] Creatine Kinaseon 03-13-2023 CK [Catalytic activity/Vol] 1093 U/L High 30-223 [facility] Comment on above: Result Comment: PERF ORMED BY: [place] [address] PATHOLOGIST BL[employer] LEATHER TRIMMER SHAKA CASTILLO M.D. Performed By: #### B EDGER MACHINE OPERATOR #### [facility] [address] [place] [address] Creatine kinase [Enzymatic a ctivity/volume] in Serum or PlasmaOrdered By: Gregory House on 03-13-2023 CK [Catalytic activity/Vol] 1093 U/L 30-223 [facility] Creatinine [Mass/volume] in Serum or PlasmaOrdered By: Gregory House on 03-13-2023 Creatinine [Mass/Vol] 1.76 mg/dL 0.70-1.30 [facility] Creatinine [Mass/volume] in UrineOrdered By: Luna Jaquez on 03-13-2023 Creatinine (U) [Mass/Vol] 127.0 mg/dL 14.0-26.0 [facility] Eosinophils Auto (Bld) [#/Vo l]Ordered By: Gregory House on 03-13-2023 Eosinophils (Bld) [#/Vol] 0.1 10*3/uL 0.0-0.45 [facility] Eosinophils/100 WBC Auto (Bl d)Ordered By: Gregory House on 03-13-2023 Eosinophils/100 WBC (Bld) 1.0 % . [facility] Erythrocyte Sedimentation Ra aile 03-13-2023 ESR (Bld) [Velocity] 22 mm/h High 0-19 [facility] Comment on above: Result Comment: PERF ORMED BY: [place] [address] PATHOLOGIST BL[employer] LEATHER TRIMMER SHAKA CASTILLO M.D. Performed By: #### E SR #### [facility] [address] [place], [place] [id number] [facility] Erythrocyte distribution wid th Auto (RBC) [Ratio]Ordered By: Gregory House on 03-13-2023 Erythrocyte distribution width (RBC) [Ratio] 13.4 % 12.0-14.8 [facility] Erythrocyte sedimentation ra te by Photometric methodOrdered By: Luna Jaquez on 03-13-2023 ESR Photometric method (Bld) [Velocity] 22 mm/hr 0-19 [facility] Globulin Calc (S) [Mass/Vol] Ordered By: Gregory House on 03-13-2023 Globulin (S) [Mass/Vol] 2.8 g/dL [facility] Glucose [Mass/volume] in Ser um or PlasmaOrdered By: Gregory House on 03-13-2023 Glucose [Mass/Vol] 95 mg/dL 70-100 [facility] Comment on above: ADA recommended refe rence rangeRandom Glucose Reference Range is dependent on time and content of last meal. Glucose of more than 200 mg/dL in a nonstressed, ambulatory subject supports the diagnosis of Diabetes Mellitus. Hematocrit Auto (Bld) [Volum e fraction]Ordered By: Gregory House on 03-13-2023 Hematocrit (Bld) [Volume fraction] 34.6 % 38.8-50.0 [facility] Hemoglobin [Mass/volume] in BloodOrdered By: Gregory House on 03-13-2023 Hemoglobin (Bld) [Mass/Vol] 11.7 g/dL 13.0-17.0 [facility] Hepatic Panelon 03-13-2023 Albumin [Mass/Vol] 3.4 g/dL Low 3.5-5.7 [facility] Comment on above: Performed By: #### B EDGER MACHINE OPERATOR #### [address] Albumin/Globulin [Mass ratio] 1.2 {ratio} Normal [facility] Comment on above: Performed By: #### B EDGER MACHINE OPERATOR #### [facility] [address] ALP [Catalytic activity/Vol] 138 U/L High 34-104 [facility] Comment on above: Performed By: #### B EDGER MACHINE OPERATOR #### [facility] [address] ALT [Catalytic activity/Vol] 17 U/L Normal 7-52 [facility] Comment on above: Performed By: #### B EDGER MACHINE OPERATOR #### [facility] [address] [place] [id number] [facility] AST [Catalytic activity/Vol] 51 U/L High 13-39 [facility] Comment on above: Performed By: #### B EDGER MACHINE OPERATOR #### [address] Bilirubin [Mass/Vol] 0.8 mg/dL Normal 0.3-1.0 [facility] Comment on above: Performed By: #### B EDGER MACHINE OPERATOR #### [address] Bilirubin,Indirect 0.6 mg/dL Normal [facility] Comment on above: Performed By: #### B EDGER MACHINE OPERATOR #### [address] Bilirubin.indirect [Mass/Vol] 0.20 mg/dL High 0.03-0.18 [facility] Comment on above: Performed By: #### B EDGER MACHINE OPERATOR #### [address] Globulin (S) [Mass/Vol] 2.8 g/dL Normal [facility] Comment on above: Performed By: #### B EDGER MACHINE OPERATOR #### [address] Protein [Mass/Vol] 6.2 g/dL Low 6.4-8.9 [facility] Comment on above: Performed By: #### B EDGER MACHINE OPERATOR #### [address] Ketones Auto test strip (U) [Mass/Vol]Ordered By: Luna Jaquez on 03-13-2023 Ketones (U) [Mass/Vol] 1+ Negative [facility] LDH Lactate Dehydrogenaseon 03-13-2023 LDH Lactate Dehydrogenase 283 U/L High 140-271 [facility] Comment on above: Result Comment: PERF ORMED BY: [place] [address] PATHOLOGIST BLACK LEATHER TRIMMER SHAKA CASTILLO M.D. Performed By: #### B EDGER MACHINE OPERATOR #### [address] Lactate dehydrogenase [Enzym atic activity/volume] in Serum or Plasma by Lactate to pyOrdered By: Gregory House on 03-13-2023 LDH Lactate to pyruvate reaction [Catalytic activity/Vol] 283 U/L 140-271 [facility] Leukocytes [#/volume] correc barbara for nucleated erythrocytes in Blood by Automated counOrdered By: Gregory House on 03-13-2023 WBC corrected for nucl RBC Auto (Bld) [#/Vol] 7.4 10*3/uL 4.1-10.5 [facility] Lymphocytes Auto (Bld) [#/Vo l]Ordered By: Gregory House on 03-13-2023 Lymphocytes (Bld) [#/Vol] 1.2 10*3/uL 1.00-4.8 [facility] Lymphocytes/100 WBC Auto (Bl d)Ordered By: Gregory House on 03-13-2023 Lymphocytes/100 WBC (Bld) 16.4 % . [facility] MCH Auto (RBC) [Entitic mass ]Ordered By: Gregory House on 03-13-2023 MCH (RBC) [Entitic mass] 30.5 pg 27.5-35.2 [facility] MCHC Auto (RBC) [Mass/Vol]Or dered By: Gregory House on 03-13-2023 MCHC (RBC) [Mass/Vol] 33.7 g/dL 32.5-35.6 [facility] MCV Auto (RBC) [Entitic vol] Ordered By: Gregory House on 03-13-2023 MCV (RBC) [Entitic vol] 90.4 fL 83.5-101 [facility] Monocytes Auto (Bld) [#/Vol] Ordered By: Gregory House on 03-13-2023 Monocytes (Bld) [#/Vol] 0.8 10*3/uL 0.0-0.8 [facility] Monocytes/100 WBC Auto (Bld) Ordered By: Gregory House on 03-13-2023 Monocytes/100 WBC (Bld) 10.2 % . [facility] Natriuretic peptide B [Mass/ Vol]Ordered By: Luna Jaquez on 03-13-2023 Natriuretic peptide B (Bld) [Mass/Vol] 41.0 pg/mL 5-100 [facility] Natriuretic peptide B [Mass/ Vol]Ordered By: Teresita Terrell on 03-13-2023 Natriuretic peptide B (Bld) [Mass/Vol] 28.0 pg/mL 5-100 [facility] Neutrophils Auto (Bld) [#/Vo l]Ordered By: Gregory House on 03-13-2023 Neutrophils (Bld) [#/Vol] 5.3 10*3/uL 1.8-7.7 [facility] Neutrophils/100 WBC Auto (Bl d)Ordered By: Gregory House on 03-13-2023 Neutrophils/100 WBC (Bld) 71.2 % . [facility] Nitrite Test strip Ql (U)Ord ered By: Luna Jaquez on 03-13-2023 Nitrite Ql (U) Negative Negative [facility] No Panel InformationOrdered By: Gregory House on 03-13-2023 Estimated GFR (CKD-EPI) 44.545 mL/Min [facility] Creatinine Clearance (Chem 47.81 [facility] Nucleated erythrocytes [Pres ence] in Blood by Automated countOrdered By: Gregory House on 03-13-2023 Nucleated RBC Auto Ql (Bld) 0.1 /100{WBC} 0-0.5 [facility] Platelet mean volume Auto (B ld) [Entitic vol]Ordered By: Gregory House on 03-13-2023 Platelet mean volume (Bld) [Entitic vol] 6.5 fL 6.6-10.1 [facility] Platelets Auto (Bld) [#/Vol] Ordered By: Gregory House on 03-13-2023 Platelets (Bld) [#/Vol] 391 10*3/uL 150-450 [facility] Potassium [Moles/volume] in Serum or PlasmaOrdered By: Gregory House on 03-13-2023 Potassium [Moles/Vol] 4.6 mmol/L 3.5-5.1 [facility] Protein Auto test strip (U) [Mass/Vol]Ordered By: Luna Jaquez on 03-13-2023 Protein (U) [Mass/Vol] Negative Negative [facility] Protein [Mass/volume] in Ser um or PlasmaOrdered By: Gregory House on 03-13-2023 Protein [Mass/Vol] 6.2 g/dL 6.4-8.9 [facility] RBC Auto (Bld) [#/Vol]Ordere d By: Gregory House on 03-13-2023 RBC (Bld) [#/Vol] 3.83 10*6/uL 3.90-5.60 [facility] Serum or plasma albumin/glob ulin mass ratioOrdered By: Gregory House on 03-13-2023 Albumin/Globulin [Mass ratio] 1.2 {ratio} [facility] Serum or plasma anion gap de terminationOrdered By: Gregory House on 03-13-2023 Anion gap [Moles/Vol] 13.5 mmol/L 6.0-15.0 [facility] Serum or plasma non-glucuron idated bilirubin measurement (mass/volume)Ordered By: Gregory House on 03-13-2023 Bilirubin.indirect [Mass/Vol] 0.6 mg/dL [facility] Sodium [Moles/volume] in Ser um or PlasmaOrdered By: Gregory House on 03-13-2023 Sodium [Moles/Vol] 139 mmol/L 136-145 [facility] Sodium [Moles/volume] in Uri neOrdered By: Luna Jaquez on 03-13-2023 Sodium (U) [Moles/Vol] 78 mmol/L [facility] Comment on above: No reference range e stablished Specific gravity Auto test s trip (U) [Rel density]Ordered By: Luna Jaquez on 03-13-2023 Specific gravity (U) [Rel density] 1.015 1.001-1.030 [facility] Urea nitrogen [Mass/volume] in Serum or PlasmaOrdered By: Gregory House on 03-13-2023 Urea nitrogen [Mass/Vol] 23 mg/dL 7-25 [facility] Urine clarity by refractomet ry automatedOrdered By: Luna Jaquez on 03-13-2023 Clarity Refractometry automated (U) Clear Clear [facility] Urine glucose measurement by automated test strip (mass/volume)Ordered By: Luna Jaquez on 03-13-2023 Glucose Auto test strip (U) [Mass/Vol] Normal mg/dL Normal [facility] Urine hemoglobin detection b y automated test stripOrdered By: Luna Jaquez on 03-13-2023 Hemoglobin Auto test strip Ql (U) Negative Negative [facility] Urine leukocyte esterase det ection by automated test stripOrdered By: Luna Jaquez on 03-13-2023 Leukocyte esterase Auto test strip Ql (U) Negative Negative [facility] Urobilinogen Auto test strip (U) [Mass/Vol]Ordered By: Luna Jaquez on 03-13-2023 Urobilinogen (U) [Mass/Vol] Normal mg/dL Normal [facility] WBC Auto (Bld) [#/Vol]Ordere d By: Gregory House on 03-13-2023 WBC (Bld) [#/Vol] 7.4 10*3/uL 4.1-10.5 [facility] pH Auto test strip (U)Ordere d By: Luna Jaquez on 03-13-2023 pH (U) 7.0 [pH] 5.0-9.0 [facility] Cholesterol [Mass/volume] in Serum or PlasmaOrdered By: Gregory House on 03-12-2023 Cholesterol [Mass/Vol] 106 mg/dL 140-200 [facility] Comment on above: Chol less than 200 m g/dl low riskChol 201-239 mg/dl borderline riskChol 240 mg/dl and greater high risk Cholesterol in LDL Calc [Mas s/Vol]Ordered By: Gregory House on 03-12-2023 Cholesterol in LDL [Mass/Vol] 56 mg/dL 0-100 [facility] Comment on above: LDL ATP III CLASSIFI CATIONLDL less than 100 mg/dL OptimalLDL 100-129 mg/dL Near or above optimalLDL 130-159 mg/dL Borderline highLDL 160-189 mg/dL HighLDL greater than 189 mg/dL Very high Cholesterol in VLDL Calc [Ma ss/Vol]Ordered By: Gregory House on 03-12-2023 Cholesterol in VLDL [Mass/Vol] 14 mg/dL [facility] Creatinineon 03-12-2023 Creatinine [Mass/Vol] 1.43 mg/dL High 0.70-1.30 [facility] Comment on above: Performed By: #### C REAT #### [address] Creatinine Clr Calc Pharmacy 58.85 Normal [facility] Comment on above: Result Comment: PERF ORMED BY: [place] [address] PATHOLOGIST BL[employer]ATH[employer]IMMER SHAKA CASTILLO M.D. Performed By: #### C REAT #### [address] GFR/1.73 sq M.predicted MDRD (S/P/Bld) [Vol rate/Area] 57.150 mL/min/{1.73_m2} Normal [facility] Comment on above: Performed By: #### C REAT #### [address] Lipid Panelon 03-12-2023 Cholesterol [Mass/Vol] 106 mg/dL Low 140-200 [facility] Comment on above: Result Comment: Chol less than 200 mg/dl low risk Chol 201-239 mg/dl borderline risk Chol 240 mg/dl and greater high risk Performed By: #### C BC #### [address] Cholesterol in HDL [Mass/Vol] 35 mg/dL Normal 29-71 [facility] Comment on above: Result Comment: HDL CHOL ATP-III CLASSIFICATION Cardiovascular Risk HDL > or equal to 60 mg/dL LOW HDL < 40 mg/dL HIGH Performed By: #### C BC #### [address] Cholesterol.total/Cho lesterol in HDL [Mass ratio] 3.0 {ratio} Normal <5.0 [facility] Comment on above: Performed By: #### C BC #### [address] LDL Cholesterol,Calculate d 56 mg/dL Normal 0-100 [facility] Comment on above: Result Comment: LDL ATP III CLASSIFICATION LDL less than 100 mg/dL Optimal LDL 100-129 mg/dL Near or above optimal LDL 130-159 mg/dL Borderline high LDL 160-189 mg/dL High LDL greater than 189 mg/dL Very high Performed By: #### C BC #### [facility] [address] Triglyceride w/Reflex 73 mg/dL Normal 0-149 [facility] Comment on above: Result Comment: TRIG ATP III CLASSIFICATION TRIG less than 150 mg/dL Normal TRIG 150-199 mg/dL Borderline high TRIG 200-500 mg/dL High TRIG greater than 500 mg/dL Very high Standard traceable to the Center for Disease Conrtrol and Prevention (CDC) test method. Performed By: #### C BC #### [facility] [address] VLDL CHOLESTEROL 14 mg/dL Normal [facility] Comment on above: Performed By: #### C BC #### [facility] [address] Serum or plasma high density lipoprotein (HDL) cholesterol measurementOrdered By: Gregory House on 03-12-2023 Cholesterol in HDL [Mass/Vol] 35 mg/dL 29-71 [facility] Comment on above: HDL CHOL ATP-III CLA SSIFICATION Cardiovascular RiskHDL > or equal to 60 mg/dL LOWHDL < 40 mg/dL HIGH Serum or plasma total choles terol/high density lipoprotein (HDL) cholesterol mass ratOrdered By: Gregory House on 03-12-2023 Cholesterol.total/Cho lesterol in HDL [Mass ratio] 3.0 {ratio} <5.0 [facility] Thyroid Stim Hormone w/Rflxo n 03-12-2023 Thyroid Stim Hormone w/Rflx 4.93 u[iU]/mL Normal 0.45-5.33 [facility] Comment on above: Performed By: #### C BC #### [facility] [address] Thyrotropin [Units/volume] i n Serum or PlasmaOrdered By: Gregory House on 03-12-2023 TSH Qn 4.93 m[IU]/L 0.45-5.33 [facility] Triglyceride [Mass/volume] i n Serum or PlasmaOrdered By: Gregory House on 03-12-2023 Triglyceride [Mass/Vol] 73 mg/dL 0-149 [facility] Comment on above: TRIG ATP III CLASSIF ICATIONTRIG less than 150 mg/dL NormalTRIG 150-199 mg/dL Borderline highTRIG 200-500 mg/dL High TRIG greater than 500 mg/dL Very highStandard traceable to the Center for Disease Conrtrol and Prevention (CDC) test method. Vitamin D 25 Hydroxy Totalon 03-12-2023 Vitamin D 25 Hydroxy Total 43.8 ng/mL Normal 30-100 [facility] Comment on above: Result Comment: ELLA MIN D STATUS 25(OH)VITAMIN D RANGE (ng/mL) Deficient <20 Insufficient 20 to <30 Sufficient 30 to 100 Reference: Jamaal Hearn, Meño GAUTAM, et al. Evaluation,treatment, and prevention of vitamin D deficiency; an Endocrine Society clinical practice guideline. JCEM. 2010; 96(7):1911-30. PERFORMED BY: [place] [address] PATHOLOGIST [employer]IMMER SHAKA CASTILLO M.D. Performed By: #### C #### [address] Vitamin D+Metabolites [Mass/ volume] in Serum or PlasmaOrdered By: Gregory House on 03-12-2023 Vitamin D+Metabolites [Mass/Vol] 43.8 ng/mL 30-100 [facility] Comment on above: VITAMIN D STATUS 25( [place])VITAMIN D RANGE (ng/mL) Deficient <20 Insufficient 20 to <30Sufficient 30 to 100Reference: Jamaal Hearn, Meño GAUTAM, et al. Evaluation,treatment, and prevention of vitamin D deficiency; an Endocrine Society clinical practice guideline. JCEM. 2010; 96(7):1911-30. ECG 12 lead ECGon 03-11-2023 ECG 12 lead ECG [facility] [place] [address] [place] [address] Electrocardiograph Report Signed Patient: Vandana Stringer MR#: [id number] : 1965 Acct:[id number] Age/Sex: 58 / M ADM Date: 03/10/23 Loc: Room: [address] [place] [address] Type: ADM IN Attending Dr: Gregory House MD Ordering Provider: Gregory House MD Date of Service: 03/11/2312/02/499 ECG/ECG 12 lead ECG: New admit Copies to: Test Reason : Blood Pressure : / mmHG Vent. Rate : 105 BPM Atrial Rate : 105 BPM P-R Int : 158 ms QRS Dur : 092 ms QT Int : 336 ms P-R-T Axes : 058 030 072 degrees QTc Int : 444 ms Sinus tachycardia Otherwise normal ECG When compared with ECG of 12-JAN-2021 15:48, No significant change was found Confirmed by KRYSTINA PHILLIPS [facility] ([id number]) on 03/11/2023 5:34:35 PM Referred By: Electronically Signed By:JULIA FLAHERTY MD, FACC Transcribed By: MUS Signed By Jabier Flaherty MD 03/11/23 1734 Normal [facility] Lamotrigineon 03-11-2023 Lamotrigine 14.2 ug/mL Normal 3.0-15.0 [facility] Comment on above: Result Comment: Neither a therapeutic or toxic range for Lamotrigine have been well established. Some reports suggest a target for steady-state concentrations of 3 - 15 ug/mL. However, there is not a clear relationship between lamotrigine serum concentrations and clinical response. The assay should be used in conjunction with information available from clinical evaluations and other diagnostic procedures. Multiple measurements of lamotrigine may be needed. Performed By: #### L ADÁN #### [facility] [employer] [address] [place] [address] Registered Dietetic Technician: Simeon Abraham MD Acetaminophenon 03-10-2023 Acetaminophen [Mass/Vol] ug/mL Low 10-30 [facility] Comment on above: Performed By: #### A CET, ALCB #### [facility] [address] [place] [address] Registered Dietetic Technician: Aixa Gu MD Acetaminophen Levelon 2022 Acetaminophen [Mass/Vol] ug/mL Low 10 - 30 ug/mL [facility] Interpretation and review of laboratory results Abnormal [facility] CBC with Auto Differentialon 03-10-2023 Basophils (Bld) [#/Vol] 0.07 10*3/uL [facility] Basophils/100 WBC (Bld) 1 % 0 - 2 % [facility] Eosinophils (Bld) [#/Vol] 0.10 10*3/uL [facility] Eosinophils/100 WBC (Bld) 1 % 1 - 4 % [facility] Erythrocyte distribution width (RBC) [Ratio] 12.3 % 11.8 - 14.4 % [facility] Hematocrit (Bld) [Volume fraction] 37.3 % Low 40.7 - 50.3 % [facility] Hemoglobin (Bld) [Mass/Vol] 12.3 g/dL Low 13.0 - 17.0 g/dL [facility] Immature granulocytes (Bld) [#/Vol] 0.15 10*3/uL [facility] Immature granulocytes/100 WBC (Bld) 2 % High 0 [facility] Interpretation and review of laboratory results Abnormal [facility] Lymphocytes/100 WBC (Bld) 9 % Low 24 - 43 % [facility] Lymphocytes/100 WBC (Bld) 0.90 % Low [facility] MCH (RBC) [Entitic mass] 30.4 pg 25.2 - 33.5 pg [facility] MCHC (RBC) [Mass/Vol] 33.0 g/dL 28.4 - 34.8 g/dL [facility] MCV (RBC) [Entitic vol] 92.1 fL 82.6 - 102.9 fL [facility] Monocytes/100 WBC (Bld) 7 % 3 - 12 % [facility] Monocytes/100 WBC (Bld) 0.70 % [facility] Neutrophils/100 WBC (Bld) 80 % High 36 - 65 % [facility] NRBC Automated 0.0 0.0 per 100 WBC [facility] Platelet mean volume (Bld) [Entitic vol] 8.4 fL 8.1 - 13.5 fL [facility] Platelets (Bld) [#/Vol] 425 10*3/uL [facility] RBC (Bld) [#/Vol] 4.05 10*6/uL Low 4.21 - 5.7 7 m/uL [facility] Segmented neutrophils/100 WBC (Bld) 7.72 % [facility] WBC other (Bld) [#/Vol] 9.6 [facility] CBC with Diffon 03-10-2023 Abs. Basophil 0.07 k/uL Normal 0.00-0.20 [facility] Comment on above: Performed By: #### R TERRY MCKEON, CDP #### [facility] [address] [place] [address] [place] [address] Registered Dietetic Technician: Aixa Gu MD Abs.Imm.Granulocyte 0.15 k/uL Normal 0.00-0.30 [facility] Comment on above: Performed By: #### TERRY Win ENP, CDP #### [facility] [address] [place] [address] Registered Dietetic Technician: Aixa Gu MD Abs.Neutrophil (Seg) 7.72 k/uL Normal 1.50-8.10 [facility] Comment on above: Performed By: #### TERRY Win ENP, CDP #### [facility] [address] [place] [address] Registered Dietetic Technician: Aixa Gu MD Basophils/100 WBC (Bld) 1 % Normal 0-2 [facility] Comment on above: Performed By: #### R TERRY MCKEON, CDP #### [facility] [address] [place] [address] Registered Dietetic Technician: Aixa Gu MD Eosinophils (Bld) [#/Vol] 0.10 10*3/uL Normal 0.00-0.44 [facility] Comment on above: Performed By: #### R ENP, IPF, CDP #### [facility] [address] [place], [place] [id number] Registered Dietetic Technician: Aixa Gu MD Eosinophils/100 WBC (Bld) 1 % Normal 1-4 [facility] Comment on above: Performed By: #### R ENP, IPF, CDP #### [facility] [address] [place], [facility] Registered Dietetic Technician: Aixa Gu MD Erythrocyte distribution width (RBC) [Ratio] 12.3 % Normal 11.8-14.4 [facility] Comment on above: Performed By: #### R LINDA IPF, CDP #### [address] [place], [facility] Registered Dietetic Technician: Aixa Gu MD Hematocrit (Bld) [Volume fraction] 37.3 % Low 40.7-50.3 [facility] Comment on above: Performed By: #### R LINDA IPF, CDP #### [address] [place], [facility]83 Registered Dietetic Technician: Aixa Gu MD Hemoglobin (Bld) [Mass/Vol] 12.3 g/dL Low 13.0-17.0 [facility] Comment on above: Performed By: #### R LINDA IPF, CDP #### [address] [place], [place] [address] Registered Dietetic Technician: Aixa Gu MD Immature granulocytes/100 WBC (Bld) 2 % High 0 [facility] Comment on above: Performed By: #### R ENLuiza IPF, CDP #### [address] [place], [facility]83 Registered Dietetic Technician: Aixa Gu MD Lymphocytes (Bld) [#/Vol] 0.90 10*3/uL Low 1.10-3.70 [facility] Comment on above: Performed By: #### R ENP, IPF, CDP #### [facility] [address] [place], [place] [id number] Registered Dietetic Technician: Aixa Gu MD Lymphocytes/100 WBC (Bld) 9 % Low 24-43 [facility] Comment on above: Performed By: #### R ENP, IPF, CDP #### [address] [place], [place] [id number] Registered Dietetic Technician: Aixa Gu MD MCH (RBC) [Entitic mass] 30.4 pg Normal 25.2-33.5 [facility] Comment on above: Performed By: #### R LINDA IPF, CDP #### [address] [place], [facility]83 Registered Dietetic Technician: Aixa Gu MD MCHC (RBC) [Mass/Vol] 33.0 g/dL Normal 28.4-34.8 [facility] Comment on above: Performed By: #### R LINDA IPF, CDP #### [address] [place], [facility]83 Registered Dietetic Technician: Aixa Gu MD MCV (RBC) [Entitic vol] 92.1 fL Normal 82.6-102.9 [facility] Comment on above: Performed By: #### R LINDA IPF, CDP #### [address] [place], [facility]83 Registered Dietetic Technician: Aixa Gu MD Monocytes (Bld) [#/Vol] 0.70 10*3/uL Normal 0.10-1.20 [facility] Comment on above: Performed By: #### R LINDA IPF, CDP #### [address] [place] [address] Registered Dietetic Technician: Aixa Gu MD Monocytes/100 WBC (Bld) 7 % Normal 3-12 [facility] Comment on above: Performed By: #### R ENP IPF, CDP #### [address] [place], [place] [id number] Registered Dietetic Technician: Aixa Gu MD Neutrophil (Seg) 80 % High 36-65 [facility] Comment on above: Performed By: #### R LINDA IPF, CDP #### [facility] [address] [place], [place] [id number] Registered Dietetic Technician: Aixa Gu MD NRBC Automated 0.0 per 100 WBC Normal 0.0 [facility] Comment on above: Performed By: #### R ENLuiza, IPF, CDP #### [facility] [address] [place], [place] [address] Registered Dietetic Technician: Aixa Gu MD Platelet mean volume (Bld) [Entitic vol] 8.4 fL Normal 8.1-13.5 [facility] Comment on above: Performed By: #### R LINDA IPF, CDP #### [address] [place], [place] [address]83 Registered Dietetic Technician: Aixa Gu MD Platelets (Bld) [#/Vol] 425 10*3/uL Normal 138-453 [facility] Comment on above: Performed By: #### R LINDA IPF, CDP #### [address] [place], [place] [id number] Registered Dietetic Technician: Aixa Gu MD RBC (Bld) [#/Vol] 4.05 10*6/uL Low 4.21-5.77 [facility] Comment on above: Performed By: #### R ENLuiza IPF, CDP #### [address] [place], [place] [id number] Registered Dietetic Technician: Aixa Gu MD WBC (Bld) [#/Vol] 9.6 10*3/uL Normal 3.5-11.3 [facility] Comment on above: Performed By: #### R LINDA IPF, CDP #### [address] [place] [address] Registered Dietetic Technician: Aixa Gu MD CT HEAD WO CONTRASTon 2022 CT HEAD WO CONTRAST EXAMINATION: CT OF THE HEAD WITHOUT CONTRAST 03/10/2023 11:18 am TECHNIQUE: CT of the head was performed without the administration of intravenous contrast. Automated exposure control, iterative reconstruction, and/or weight based adjustment of the mA/kV was utilized to reduce the radiation dose to as low as reasonably achievable. COMPARISON: None. HISTORY: ORDERING SYSTEM PROVIDED HISTORY: increased agitation TECHNOLOGIST PROVIDED HISTORY: increased agitation Decision Support Exception - unselect if not a suspected or confirmed emergency medical condition->Emergency Medical Condition (MA) FINDINGS: BRAIN/VENTRICLES: The cerebral and cerebellar parenchyma demonstrate volume loss with chronic microvascular white matter ischemic disease. There are no areas of hemorrhage, mass, or midline shift. The ventricles are enlarged, likely related to involutional change. Linear tracts are noted along the right calvarium, related to prior instrumentation. 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 There are a few calcifications/ossificat ions noted along the right cerebral convexity. Chronic infarcts are noted in the right centrum semiovale. The irizarry-white differentiation is otherwise maintained. ORBITS: The orbits are unremarkable. SINUSES: There is scattered paranasal sinus disease. There are maxillary and right sphenoid mucous retention cysts. The mastoid air cells are clear. SOFT TISSUES/SKULL: No fracture. No appreciable scalp soft tissue swelling. IMPRESSION: *No acute intracranial abnormality. *Postsurgical changes are noted along the right calvarium with a craniectomy defect. Chronic lacunar infarcts are noted in the right cerebral hemisphere as well as dystrophic calcifications/ossificat ions. *Chronic microvascular white matter ischemic disease. Interpreted by: Vikas Hernandez MD Signed by: Vikas Hernandez MD 03/10/23 Final result Normal [facility] *No acute intracrani al abnormality. *Postsurgical changes are noted along the right calvarium with a craniectomy defect. Chronic lacunar infarcts are noted in the right cerebral hemisphere as well as dystrophic calcifications/ossificat ions. *Chronic microvascular white matter ischemic disease. [facility] RIS CONSOLIDATED EXAMINATION: CT OF THE HEAD WITHOUT CONTRAST 03/10/2023 11:18 am TECHNIQUE: CT of the head was performed without the administration of intravenous contrast. Automated exposure control, iterative reconstruction, and/or weight based adjustment of the mA/kV was utilized to reduce the radiation dose to as low as reasonably achievable. COMPARISON: None. HISTORY: ORDERING SYSTEM PROVIDED HISTORY: increased agitation TECHNOLOGIST PROVIDED HISTORY: increased agitation Decision Support Exception - unselect if not a suspected or confirmed emergency medical condition->Emergency Medical Condition (MA) FINDINGS: BRAIN/VENTRICLES: The cerebral and cerebellar parenchyma demonstrate volume loss with chronic microvascular white matter ischemic disease. There are no areas of hemorrhage, mass, or midline shift. The ventricles are enlarged, likely related to involutional change. Linear tracts are noted along the right calvarium, related to prior instrumentation. 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 There are a few calcifications/ossificat ions noted along the right cerebral convexity. Chronic infarcts are noted in the right centrum semiovale. The irizarry-white differentiation is otherwise maintained. ORBITS: The orbits are unremarkable. SINUSES: There is scattered paranasal sinus disease. There are maxillary and right sphenoid mucous retention cysts. The mastoid air cells are clear. SOFT TISSUES/SKULL: No fracture. No appreciable scalp soft tissue swelling. [facility] Vikas Soto MD - 03/10/2023 EXAMINATION: CT OF THE HEAD WITHOUT CONTRAST 03/10/2023 11:18 am TECHNIQUE: CT of the head was performed without the administration of intravenous contrast. Automated exposure control, iterative reconstruction, and/or weight based adjustment of the mA/kV was utilized to reduce the radiation dose to as low as reasonably achievable. COMPARISON: None. HISTORY: ORDERING SYSTEM PROVIDED HISTORY: increased agitation TECHNOLOGIST PROVIDED HISTORY: increased agitation Decision Support Exception - unselect if not a suspected or confirmed emergency medical condition->Emergency Medical Condition (MA) FINDINGS: BRAIN/VENTRICLES: The cerebral and cerebellar parenchyma demonstrate volume loss with chronic microvascular white matter ischemic disease. There are no areas of hemorrhage, mass, or midline shift. The ventricles are enlarged, likely related to involutional change. Linear tracts are noted along the right calvarium, related to prior instrumentation. 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 There are a few calcifications/ossificat ions noted along the right cerebral convexity. Chronic infarcts are noted in the right centrum semiovale. The irizarry-white differentiation is otherwise maintained. ORBITS: The orbits are unremarkable. SINUSES: There is scattered paranasal sinus disease. There are maxillary and right sphenoid mucous retention cysts. The mastoid air cells are clear. SOFT TISSUES/SKULL: No fracture. No appreciable scalp soft tissue swelling. IMPRESSION: *No acute intracranial abnormality. *Postsurgical changes are noted along the right calvarium with a craniectomy defect. Chronic lacunar infarcts are noted in the right cerebral hemisphere as well as dystrophic calcifications/ossificat ions. *Chronic microvascular white matter ischemic disease. [facility] Work Phone: Radiology Study observation (narrative) [facility] [employer] Phone: CT HEAD WO CONTRASTOrdered B y: Vikas Hernandez on 03-10-2023 [facility] Phone: Comp Metabolic Profon 2022 Albumin [Mass/Vol] 2.9 g/dL Low 3.5-5.2 [facility] Comment on above: Performed By: #### R TERRY MCKEON, CDP #### [facility] [address] [place] [address] [place]. [place], [place] [id number] Registered Dietetic Technician: Aixa Gu MD Albumin/Glob Ratio 0.8 Low 1.0-2.5 [facility] Comment on above: Performed By: #### R TERRY MCKEON, CDP #### [facility] [address] [place] [address] [place]. [place], [place] [id number] Registered Dietetic Technician: Aixa Gu MD Alkaline Phos 165 U/L High 40-129 [facility] Comment on above: Performed By: #### R TERRY MCKEON, CDP #### [facility] [address] [place], [place] [id number] Registered Dietetic Technician: Aixa Gu MD ALT [Catalytic activity/Vol] 17 U/L Normal 5-41 [facility] Comment on above: Performed By: #### R TERRY MCKEON, CDP #### [facility] [address] [place] [address] Registered Dietetic Technician: Aixa Gu MD Anion gap [Moles/Vol] 6 mmol/L Low 9-17 [facility] Comment on above: Performed By: #### R ENP, IPF, CDP #### [facility] [address] [place] [address] Registered Dietetic Technician: Aixa Gu MD AST [Catalytic activity/Vol] 23 U/L Normal <40 [facility] Comment on above: Performed By: #### R ENP, IPF, CDP #### [facility] [address] [place], [place] [address] Registered Dietetic Technician: Aixa Gu MD Bilirubin [Mass/Vol] 0.4 mg/dL Normal 0.3-1.2 [facility] Comment on above: Performed By: #### R ENLuiza, IPF, CDP #### [facility] [address] [place], [place] [address] Registered Dietetic Technician: Aixa Gu MD BUN/CRE Ratio 8 Low 9-20 [facility] Comment on above: Performed By: #### R LINDA, IPF, CDP #### [facility] [address] [place] [address] [address] [place], [place] [id number] Registered Dietetic Technician: Aixa Gu MD Calcium [Mass/Vol] 9.7 mg/dL Normal 8.6-10.4 [facility] Comment on above: Performed By: #### R LINDA IPF, CDP #### [facility] [address] [place], [place] [address] Registered Dietetic Technician: Aixa Gu MD Chloride [Moles/Vol] 105 mmol/L Normal 98-107 [facility] Comment on above: Performed By: #### R ENP, IPF, CDP #### [facility] [address] [place], [place] [address] Registered Dietetic Technician: Aixa Gu MD CO2 [Moles/Vol] 26 mmol/L Normal 20-31 [facility] Comment on above: Performed By: #### R ENP, IPF, CDP #### [facility] [address] [place] [address] Registered Dietetic Technician: Aixa Gu MD Creatinine [Mass/Vol] 1.06 mg/dL Normal 0.70-1.20 [facility] Comment on above: Performed By: #### R TERRY MCKEON, CDP #### [facility] [address] [place] [address] Registered Dietetic Technician: Aixa Gu MD GFR/1.73 sq M.predicted among non-blacks MDRD (S/P/Bld) [Vol rate/Area] mL/min/{1.73_m2} Normal >60 [facility] Comment on above: Result Comment: These results are not intended for use in patients <18 years of age. eGFR results are calculated without a race factor using the 2020 CKD-EPI equation. Careful clinical correlation is recommended, particularly when comparing to results calculated using previous equations. The CKD-EPI equation is less accurate in patients with extremes of muscle mass, extra-renal metabolism of creatine, excessive creatine ingestion, or following therapy that affects renal tubular secretion. Performed By: #### R TERRY MCKEON, CDP #### [facility] [address] [place] [address] Registered Dietetic Technician: Aixa Gu MD Glucose [Mass/Vol] 126 mg/dL High 70-99 [facility] Comment on above: Performed By: #### TERRY Win ENP, CDP #### [facility] [address] [place] [address] Registered Dietetic Technician: Aixa Gu MD Potassium [Moles/Vol] 4.4 mmol/L Normal 3.7-5.3 [facility] Comment on above: Performed By: #### TERRY Win ENP, CDP #### [facility] [address] [place] [address] Registered Dietetic Technician: Aixa Gu MD Protein [Mass/Vol] 6.6 g/dL Normal 6.4-8.3 [facility] Comment on above: Performed By: #### R ENP, IPF, CDP #### [facility] [address] [place] [address] Registered Dietetic Technician: Aixa Gu MD Sodium [Moles/Vol] 137 mmol/L Normal 135-144 [facility] Comment on above: Performed By: #### R ENP, IPF, CDP #### [facility] [address] [place] [address] Registered Dietetic Technician: Aixa Gu MD Urea nitrogen [Mass/Vol] 9 mg/dL Normal 6-20 [facility] Comment on above: Performed By: #### R ENLuiza, IPF, CDP #### [facility] [address] [place] [address] Registered Dietetic Technician: Aixa Gu MD Comprehensive Metabolic Pane [facility] 03-10-2023 Albumin [Mass/Vol] 2.9 g/dL Low 3.5 - 5.2 g/dL [facility] Albumin/Globulin [Mass ratio] 0.8 {ratio} Low 1.0 - 2.5 [facility] ALP [Catalytic activity/Vol] 165 U/L High 40 - 129 U/L [facility] ALT [Catalytic activity/Vol] 17 U/L 5 - 41 U/L [facility] Anion gap [Moles/Vol] 6 mmol/L Low 9 - 17 mmol/L [facility] AST [Catalytic activity/Vol] 23 U/L NINF - 40 U/L [facility] Bilirubin [Mass/Vol] 0.4 mg/dL 0.3 - 1 .2 mg/dL [facility] Calcium [Mass/Vol] 9.7 mg/dL 8.6 - 10. 4 mg/dL [facility] Chloride [Moles/Vol] 105 mmol/L 98 - 10 7 mmol/L [facility] CO2 [Moles/Vol] 26 mmol/L 20 - 31 mmol/L [facility] Creatinine [Mass/Vol] 1.06 mg/dL 0.70 - 1.20 mg/dL [facility] GFR/1.73 sq M.predicted MDRD (S/P/Bld) [Vol rate/Area] - PINF [facility] Comment on above: These results are not intended for use in patients <18 years of age. eGFR results are calculated without a race factor using the 2020 CKD-EPI equation. Careful clinical correlation is recommended, particularly when comparing to results calculated using previous equations. The CKD-EPI equation is less accurate in patients with extremes of muscle mass, extra-renal metabolism of creatine, excessive creatine ingestion, or following therapy that affects renal tubular secretion. Glucose [Mass/Vol] 126 mg/dL High 70 - 99 mg/dL [facility] Potassium [Moles/Vol] 4.4 mmol/L 3.7 - 5.3 mmol/L [facility] Protein [Mass/Vol] 6.6 g/dL 6.4 - 8.3 g/dL [facility] Sodium [Moles/Vol] 137 mmol/L 135 - 144 mmol/L [facility] Urea nitrogen [Mass/Vol] 9 mg/dL 6 - 20 mg/dL [facility] Urea nitrogen/Creatinine [Mass ratio] 8 mg/mg Low 9 - 20 [facility] Drug Scr, Abuse, Uron 2022 Amphetamine(s),Ur Negative Normal NEG [facility] Comment on above: Result Comment: (Positive cutoff 1000 ng/mL) Performed By: #### R LINDA, CDP #### [facility] [address] [place] [address] [place] [address] Registered Dietetic Technician: Aixa Gu MD Barbiturate(s),Ur Negative Normal NEG [facility] Comment on above: Result Comment: (Positive cutoff 200 ng/mL) Performed By: #### R MAHOGANYP, CDP #### [address] [place] [address] Registered Dietetic Technician: Aixa Gu MD Benzodiazepine(s) Negative Normal NEG [facility] Comment on above: Result Comment: (Positive cutoff 200 ng/mL) Performed By: #### R ENP, CDP #### [facility] [address] [place], [place] [id number] Registered Dietetic Technician: Aixa Gu MD Buprenorphrine, Ur Negative Normal NEG [facility] Comment on above: Result Comment: (Positive cutoff 5 ng/ml) Performed By: #### R ENP, CDP #### [facility] [address] [place] [address] Dr. [place], [place] [id number] Registered Dietetic Technician: Aixa Gu MD Cannabinoid(s),Ur Negative Normal NEG [facility] Comment on above: Result Comment: (Positive cutoff 50 ng/mL) Performed By: #### R ENP, CDP #### [facility] [address] [place] [address] [place] [place], [place] [id number] Registered Dietetic Technician: Aixa Gu MD Cocaine Metabolite Negative [facility] Comment on above: Result Comment: (Positive cutoff 300 ng/mL) Performed By: #### R ENP, CDP #### [facility] [address] [place] [address] Dr[address] [place], [place] [id number] Registered Dietetic Technician: Aixa Gu MD Fentanyl, Urine Negative Normal [facility] Comment on above: Result Comment: (Positive cutoff 5 ng/ml) Performed By: #### R ENP, CDP #### [address] [place], [place] [id number] Registered Dietetic Technician: Aixa Gu MD Interpretive Info Assay provides medic al screening only. The absence of expected drug(s) and/or Normal [facility] Comment on above: Result Comment: meta bolite(s) may indicate diluted or adulterated urine, limitations of testing or timing of collection. Testing for legal purposes should be confirmed by another method. To request confirmation of test result, please call the lab within 7 days of sample submission. Performed By: #### R ENP, CDP #### [facility] [address] [place] [address] Dr[address] [place], [place] [id number] Registered Dietetic Technician: Aixa Gu MD Methadone Ql (U) Negative Normal NEG [facility] Comment on above: Result Comment: (Positive cutoff 300 ng/mL) Performed By: #### R ENP, CDP #### [facility] [address] [place] [address] Dr[place], [place] [id number] Registered Dietetic Technician: Aixa Gu MD Opiate(s), Ur Negative Normal NEG [facility] Comment on above: Result Comment: (Positive cutoff 300 ng/mL) Performed By: #### R ENP, CDP #### [facility] [address] [place] [address] Dr. [place], [place] [id number] Registered Dietetic Technician: Aixa Gu MD Oxycodone, Urine Negative Normal NEG [facility] Comment on above: Result Comment: (Positive cutoff 100 ng/mL) Performed By: #### R ENP, CDP #### [address] [place], [place] 5902983 Registered Dietetic Technician: Aixa Gu MD Phencyclidine, Ur Negative Normal NEG [facility] Comment on above: Result Comment: (Positive cutoff 25 ng/mL) Performed By: #### R ENP, CDP #### [address] [place], [place] 8046583 Registered Dietetic Technician: Aixa Gu MD Ethanolon 1 Ethanol percent <0.010 NINF - 0.010 % [facility] Ethanolamine [Mass/Vol] mg/dL NINF - 10 mg/dL [facility] Ethanol Alcoholon 568 Ethanol [Mass/Vol] mg/dL Normal <10 [facility] Comment on above: Performed By: #### A CET, ALCB #### [address] [place], [place] [id number] Registered Dietetic Technician: Aixa Gu MD Ethanol percent <0.010 Normal <0.010 [facility] Comment on above: Performed By: #### A CET, ALCB #### [address] [place], [place] 2484483 Registered Dietetic Technician: Aixa Gu MD Microscopic Urinalysison Epithelial cells LM.HPF (Urine sed) [#/Area] None [facility] RBC LM.HPF (Urine sed) [#/Area] None [facility] WBC LM.HPF (Urine sed) [#/Area] None [facility] No Panel Informationon 03-10 Interpretation and review of laboratory results Abnormal [facility] Salicylateon 03-10-2023 Salicylate <1 Low 3-10 [facility] Comment on above: Performed By: #### R ENP, IPF, CDP #### [facility] [address] [place] [address] Registered Dietetic Technician: Aixa Gu MD Salicylates [Mass/Vol] mg/dL Low 3 - 10 mg/dL [facility] UA w/Reflex Cultureon 2022 Bilirubin, SemiQt,Ur Negative Normal NEG [facility] Comment on above: Performed By: #### R ENP, CDP #### [facility] [address] [place], [place] [id number] Registered Dietetic Technician: Aixa Gu MD Blood, Urine Negative Normal NEG [facility] Comment on above: Performed By: #### R ENP, CDP #### [facility] [address] [place], [place] [phone] Registered Dietetic Technician: Aixa Gu MD Clarity (U) Clear Normal CLEAR [facility] Comment on above: Performed By: #### R ENP, CDP #### [facility] [address] [place] [address] Registered Dietetic Technician: Aixa Gu MD Color (U) Yellow Normal YEL [facility] Comment on above: Performed By: #### R ENP, CDP #### [facility] [address] [place] [address] Registered Dietetic Technician: Aixa Gu MD Glucose Ql (U) Negative Normal NEG [facility] Comment on above: Performed By: #### R ENP, CDP #### [facility] [address] [place] [address] [place]. [place], [place] 0459483 Registered Dietetic Technician: Aixa Gu MD Ketones Ql (U) Negative Normal NEG [facility] Comment on above: Performed By: #### R ENP, CDP #### [facility] [address] [place] [address] [place] [address] Registered Dietetic Technician: Aixa Gu MD Leukocyte esterase Test strip Ql (U) Negative Normal NEG [facility] Comment on above: Performed By: #### R ENP, CDP #### [address] [place], [place] 1859883 Registered Dietetic Technician: Aixa Gu MD Nitrite,Ur Negative Normal [facility] Comment on above: Performed By: #### R ENP, CDP #### [facility] [address] [place] [address] [place] [address] Registered Dietetic Technician: Aixa Gu MD PH,Ur 6.5 Normal 5.0-9.0 [facility] Comment on above: Performed By: #### R ENP, CDP #### [address] [place] [address] Registered Dietetic Technician: Aixa Gu MD Protein Ql (U) Negative Normal NEG [facility] Comment on above: Performed By: #### R ENP, CDP #### [facility] [address] [place] [address] [place] [address] Registered Dietetic Technician: Aixa Gu MD Spec. [place],Ur 1.010 Normal 1.010-1.020 [facility] Comment on above: Performed By: #### R ENP, CDP #### [facility] [address] [place] [address] [place]. [place], [place] 9883983 Registered Dietetic Technician: Aixa Gu MD Urobilinogen,Ur Normal Normal NORM [facility] Comment on above: Performed By: #### R ENP, CDP #### [facility] [address] [place] [address] Registered Dietetic Technician: Aixa Gu MD Urinalysis with Reflex to Cu ltureon 03-10-2023 Bilirubin Ql (U) Negative NEGATIVE [facility] Clarity (U) Clear Clear [facility] Color (U) Yellow Yellow [facility] Glucose Test strip (U) [Mass/Vol] Negative NEGATIVE [facility] Hemoglobin Auto test strip Ql (U) Negative NEGATIVE [facility] Ketones (U) [Mass/Vol] Negative NEGATIVE [facility] Leukocyte esterase Test strip Ql (U) Negative NEGATIVE [facility] Nitrite Ql (U) Negative [facility] pH (U) 6.5 [pH] 5.0 - 9.0 [facility] Protein (U) [Mass/Vol] Negative NEGATIVE [facility] Specific gravity (U) [Rel density] 1.010 1.010 - 1.020 [facility] Urobilinogen Qn (U) Normal Normal [facility] Urinalysis,Microon 3 Epithelial cells LM Ql (Urine sed) None Normal 0-5 [facility] Comment on above: Performed By: #### R ENLuiza, CDP #### [facility] [address] [place] [address] Registered Dietetic Technician: Aixa Gu MD Urine RBC's None Normal 0-2 [facility] Comment on above: Performed By: #### R ENLuiza, CDP #### [facility] [address] [place] [address] Registered Dietetic Technician: Aixa Gu MD Urine WBC's None Normal 0-5 [facility] Comment on above: Performed By: #### R ENLuiza, CDP #### [facility] [address] [place] [address] Registered Dietetic Technician: Aixa Gu MD Urine Drug Screenon 03-10-20 23 Amphetamines Ql (U) Negative NEGATIVE [facility] Comment on above: (Positive cutoff 1000 ng/mL) Barbiturates Screen Ql (U) Negative NEGATIVE [facility] Comment on above: (Positive cutoff 200 ng/mL) Benzodiazepines Ql (U) Negative NEGATIVE [facility] Comment on above: (Positive cutoff 200 ng/mL) Buprenorphine Ql (U) Negative NEGATIVE [facility] Comment on above: (Positive cutoff 5 ng/ml) Cannabinoid Scrn, Ur Negative NEGATIVE [facility] Comment on above: (Positive cutoff 50 ng/mL) Cocaine Ql (U) Negative NEGATIVE [facility] Comment on above: (Positive cutoff 300 ng/mL) Fentanyl, Ur Negative NEGATIVE [facility] Comment on above: (Positive cutoff 5 ng/ml) Methadone Screen, Urine Negative NEGATIVE [facility] Comment on above: (Positive cutoff 300 ng/mL) Opiates Screen Ql (U) Negative NEGATIVE [facility] Comment on above: (Positive cutoff 300 ng/mL) Oxycodone Screen, Ur Negative NEGATIVE [facility] Comment on above: (Positive cutoff 100 ng/mL) Phencyclidine Ql (U) Negative NEGATIVE [facility] Comment on above: (Positive cutoff 25 ng/mL) Test Information Assay provides medic al screening only. The absence of expected drug(s) and/or metabolite(s) may indicate diluted or adulterated urine, limitations of testing or timing of collection. [facility] Comment on above: Testing for legal pu rposes should be confirmed by another method. To request confirmation of test result, please call the lab within 7 days of sample submission. [facility] CBC with Auto Differentialon 03-09-2023 Basophils (Bld) [#/Vol] 0.07 10*3/uL [facility] Basophils/100 WBC (Bld) 1 % 0 - 2 % [facility] Eosinophils (Bld) [#/Vol] 0.15 10*3/uL [facility] Eosinophils/100 WBC (Bld) 1 % 1 - 4 % [facility] Erythrocyte distribution width (RBC) [Ratio] 12.3 % 11.8 - 14.4 % [facility] Hematocrit (Bld) [Volume fraction] 39.0 % Low 40.7 - 50.3 % [facility] Hemoglobin (Bld) [Mass/Vol] 12.7 g/dL Low 13.0 - 17.0 g/dL [facility] Immature granulocytes (Bld) [#/Vol] 0.18 10*3/uL [facility] Immature granulocytes/100 WBC (Bld) 2 % High 0 [facility] Interpretation and review of laboratory results Abnormal [facility] Lymphocytes/100 WBC (Bld) 34 % 24 - 43 % [facility] Lymphocytes/100 WBC (Bld) 3.59 % [facility] MCH (RBC) [Entitic mass] 30.0 pg 25.2 - 33.5 pg [facility] MCHC (RBC) [Mass/Vol] 32.6 g/dL 28.4 - 34.8 g/dL [facility] MCV (RBC) [Entitic vol] 92.2 fL 82.6 - 102.9 fL [facility] Monocytes/100 WBC (Bld) 7 % 3 - 12 % [facility] Monocytes/100 WBC (Bld) 0.73 % [facility] Neutrophils/100 WBC (Bld) 56 % 36 - 65 % [facility] NRBC Automated 0.0 0.0 per 100 WBC [facility] Platelets (Bld) [#/Vol] See Reflexed IPF Result [facility] RBC (Bld) [#/Vol] 4.23 10*6/uL 4.21 - 5.7 7 m/uL [facility] Segmented neutrophils/100 WBC (Bld) 5.89 % [facility] WBC other (Bld) [#/Vol] 10.6 [facility] CBC with Diffon 03-09-2023 Abs. Basophil 0.07 k/uL Normal 0.00-0.20 [facility] Comment on above: Performed By: #### R ENP, IPF, CDP #### [facility] [address] [place], [place] [id number] Registered Dietetic Technician: Aixa Gu MD Abs.Imm.Granulocyte 0.18 k/uL Normal 0.00-0.30 [facility] Comment on above: Performed By: #### R ENP, IPF, CDP #### [facility] [address] [place], [facility]83 Registered Dietetic Technician: Aixa Gu MD Abs.Neutrophil (Seg) 5.89 k/uL Normal 1.50-8.10 [facility] Comment on above: Performed By: #### R LINDA, IPF, CDP #### [address] [place], [facility] Registered Dietetic Technician: Aixa Gu MD Basophils/100 WBC (Bld) 1 % Normal 0-2 [facility] Comment on above: Performed By: #### R ENLuiza IPF, CDP #### [address] [place], [facility]83 Registered Dietetic Technician: Aixa Gu MD Eosinophils (Bld) [#/Vol] 0.15 10*3/uL Normal 0.00-0.44 [facility] Comment on above: Performed By: #### R ENP, IPF, CDP #### [address] [place], [facility]83 Registered Dietetic Technician: Aixa Gu MD Eosinophils/100 WBC (Bld) 1 % Normal 1-4 [facility] Comment on above: Performed By: #### R ENP, IPF, CDP #### [address] [place], [place] 6164483 Registered Dietetic Technician: Aixa Gu MD Erythrocyte distribution width (RBC) [Ratio] 12.3 % Normal 11.8-14.4 [facility] Comment on above: Performed By: #### R ENP IPF, CDP #### [address] [place], [facility]83 Registered Dietetic Technician: Aixa Gu MD Hematocrit (Bld) [Volume fraction] 39.0 % Low 40.7-50.3 [facility] Comment on above: Performed By: #### R TERRY MCKEON, CDP #### [facility] [address] [place], [place] 0411283 Registered Dietetic Technician: Aixa Gu MD Hemoglobin (Bld) [Mass/Vol] 12.7 g/dL Low 13.0-17.0 [facility] Comment on above: Performed By: #### R TERRY MCKEON, CDP #### [address] [place] [id number] Registered Dietetic Technician: Aixa Gu MD Immature granulocytes/100 WBC (Bld) 2 % High 0 [facility] Comment on above: Performed By: #### R TERRY MCKEON, CDP #### [facility] [address] [place] [address] Dr. [place], [facility]83 Registered Dietetic Technician: Aixa Gu MD Lymphocytes (Bld) [#/Vol] 3.59 10*3/uL Normal 1.10-3.70 [facility] Comment on above: Performed By: #### R TERRY MCKEON, CDP #### [address] [place] 2330983 Registered Dietetic Technician: Aixa Gu MD Lymphocytes/100 WBC (Bld) 34 % Normal 24-43 [facility] Comment on above: Performed By: #### R TERRY MCKEON, CDP #### [facility] [address] [place], [place] 0954183 Registered Dietetic Technician: Aixa Gu MD MCH (RBC) [Entitic mass] 30.0 pg Normal 25.2-33.5 [facility] Comment on above: Performed By: #### R TERRY MCKEON, CDP #### [facility] [address] [place] [address] [place] [address] Registered Dietetic Technician: Aixa Gu MD MCHC (RBC) [Mass/Vol] 32.6 g/dL Normal 28.4-34.8 [facility] Comment on above: Performed By: #### R ENLuiza IPF, CDP #### [facility] [address] [place], [place] [id number] Registered Dietetic Technician: Aixa Gu MD MCV (RBC) [Entitic vol] 92.2 fL Normal 82.6-102.9 [facility] Comment on above: Performed By: #### R LINDA IPF, CDP #### [facility] [address] [place] [address] Registered Dietetic Technician: Aixa Gu MD Monocytes (Bld) [#/Vol] 0.73 10*3/uL Normal 0.10-1.20 [facility] Comment on above: Performed By: #### R LINDA IPF, CDP #### [facility] [address] [place], [place] 9485683 Registered Dietetic Technician: Aixa Gu MD Monocytes/100 WBC (Bld) 7 % Normal 3-12 [facility] Comment on above: Performed By: #### R LINDA IPF, CDP #### [facility] [address] [place], [place] 1684783 Registered Dietetic Technician: Aixa Gu MD Neutrophil (Seg) 56 % Normal 36-65 [facility] Comment on above: Performed By: #### R ENLuiza IPF, CDP #### [facility] [address] [place], [place] 9467583 Registered Dietetic Technician: Aixa Gu MD NRBC Automated 0.0 per 100 WBC Normal 0.0 [facility] Comment on above: Performed By: #### R ENP IPF, CDP #### [facility] [address] [place] [address] Registered Dietetic Technician: Aixa Gu MD Platelet Count See Reflexed IPF Result Normal 138-453 [facility] Comment on above: Performed By: #### R ENP IPF, CDP #### [facility] [address] [place], [place] 6849883 Registered Dietetic Technician: Aixa Gu MD RBC (Bld) [#/Vol] 4.23 10*6/uL Normal 4.21-5.77 [facility] Comment on above: Performed By: #### R LINDA IPF, CDP #### [facility] [address] [place], [place] 3100783 Registered Dietetic Technician: Aixa Gu MD WBC (Bld) [#/Vol] 10.6 10*3/uL Normal 3.5-11.3 [facility] Comment on above: Performed By: #### R LINDA IPF, CDP #### [address] [place], [place] [address] Registered Dietetic Technician: Aixa Gu MD Immature Platelet Fractionon 03-09-2023 Platelet, Fluorescence 299 [facility] Platelets reticulated/100 platelets Auto (Bld) 3.7 % 1.1 - 10.3 % [facility] PLT, Immature Fract.on 03-09 Platelet, Fluoresc. 299 k/uL Normal 138-453 [facility] Comment on above: Performed By: #### R TERRY MCKEON, CDP #### [facility] [address] [place] [address] Dr. [place], [facility]83 Registered Dietetic Technician: Aixa Gu MD PLT, Immature Fract. 3.7 % Normal 1.1-10.3 [facility] Comment on above: Performed By: #### R LINDA IPF, CDP #### [address] [place] [address] Registered Dietetic Technician: Aixa Gu MD Renal Function Panelon 03-09 Albumin [Mass/Vol] 3.0 g/dL Low 3.5-5.2 [facility] Comment on above: Performed By: #### R ENP, IPF, CDP #### [facility] [address] [place], [place] 1153983 Registered Dietetic Technician: Aixa Gu MD Anion gap [Moles/Vol] 9 mmol/L Normal 9-17 [facility] Comment on above: Performed By: #### R ENP, IPF, CDP #### [facility] [address] [place], [place] 2851983 Registered Dietetic Technician: Aixa Gu MD BUN/CRE Ratio 10 Normal 9-20 [facility] Comment on above: Performed By: #### R ENP, IPF, CDP #### [facility] [address] [place], [place] 5131383 Registered Dietetic Technician: Aixa Gu MD Calcium [Mass/Vol] 9.7 mg/dL Normal 8.6-10.4 [facility] Comment on above: Performed By: #### R ENP, IPF, CDP #### [facility] [address] [place] [address] Dr. [place], [place] 0619583 Registered Dietetic Technician: Aixa Gu MD Chloride [Moles/Vol] 105 mmol/L Normal 98-107 [facility] Comment on above: Performed By: #### R ENP, IPF, CDP #### [facility] [address] [place], [place] 2179383 Registered Dietetic Technician: Aixa Gu MD CO2 [Moles/Vol] 26 mmol/L Normal 20-31 [facility] Comment on above: Performed By: #### R ENP, IPF, CDP #### [facility] [address] [place], [place] 7781883 Registered Dietetic Technician: Aixa Gu MD Creatinine [Mass/Vol] 1.07 mg/dL Normal 0.70-1.20 [facility] Comment on above: Performed By: #### R ENP, IPF, CDP #### [facility] [address] [place] [address] [place] [address] Registered Dietetic Technician: Aixa Gu MD GFR/1.73 sq M.predicted among non-blacks MDRD (S/P/Bld) [Vol rate/Area] mL/min/{1.73_m2} Normal >60 [facility] Comment on above: Result Comment: These results are not intended for use in patients <18 years of age. eGFR results are calculated without a race factor using the 2020 CKD-EPI equation. Careful clinical correlation is recommended, particularly when comparing to results calculated using previous equations. The CKD-EPI equation is less accurate in patients with extremes of muscle mass, extra-renal metabolism of creatine, excessive creatine ingestion, or following therapy that affects renal tubular secretion. Performed By: #### R TERRY MCKEON, CDP #### [facility] [address] [place] [address] [place] [address] Registered Dietetic Technician: Aixa Gu MD Glucose [Mass/Vol] 144 mg/dL High 70-99 [facility] Comment on above: Performed By: #### R TERRY MCKEON, CDP #### [facility] [address] [place] [address] Registered Dietetic Technician: Aixa Gu MD Phosphorus, Inorg. 3.1 mg/dL Normal 2.5-4.5 [facility] Comment on above: Performed By: #### R TERRY MCKEON, CDP #### [facility] [address] [place] [address] Registered Dietetic Technician: Aixa Gu MD Potassium [Moles/Vol] 4.2 mmol/L Normal 3.7-5.3 [facility] Comment on above: Performed By: #### R TERRY MCKEON, CDP #### [facility] [address] [place] [address] Registered Dietetic Technician: Aixa Gu MD Sodium [Moles/Vol] 140 mmol/L Normal 135-144 [facility] Comment on above: Performed By: #### R TERRY MCKEON, CDP #### [facility] [address] [place] [address] Registered Dietetic Technician: Aixa Gu MD Urea nitrogen [Mass/Vol] 11 mg/dL Normal 6-20 [facility] Comment on above: Performed By: #### R ENP, IPF, CDP #### [facility] [address] [place] [address] Registered Dietetic Technician: Aixa Gu MD Albumin [Mass/Vol] 3 g/dL Low 3.5 - 5.2 g/dL [facility] Anion gap [Moles/Vol] 9 mmol/L 9 - 17 mmol/L [facility] Calcium [Mass/Vol] 9.7 mg/dL 8.6 - 10. 4 mg/dL [facility] Chloride [Moles/Vol] 105 mmol/L 98 - 10 7 mmol/L [facility] CO2 [Moles/Vol] 26 mmol/L 20 - 31 mmol/L [facility] Creatinine [Mass/Vol] 1.07 mg/dL 0.70 - 1.20 mg/dL [facility] GFR/1.73 sq M.predicted MDRD (S/P/Bld) [Vol rate/Area] - PINF [facility] Comment on above: These results are not intended for use in patients <18 years of age. eGFR results are calculated without a race factor using the 2020 CKD-EPI equation. Careful clinical correlation is recommended, particularly when comparing to results calculated using previous equations. The CKD-EPI equation is less accurate in patients with extremes of muscle mass, extra-renal metabolism of creatine, excessive creatine ingestion, or following therapy that affects renal tubular secretion. Glucose [Mass/Vol] 144 mg/dL High 70 - 99 mg/dL [facility] Interpretation and review of laboratory results Abnormal [facility] Phosphate [Mass/Vol] 3.1 mg/dL 2.5 - 4 .5 mg/dL [facility] Potassium [Moles/Vol] 4.2 mmol/L 3.7 - 5.3 mmol/L [facility] Sodium [Moles/Vol] 140 mmol/L 135 - 144 mmol/L [facility] Urea nitrogen [Mass/Vol] 11 mg/dL 6 - 20 mg/dL [facility] Urea nitrogen/Creatinine [Mass ratio] 10 mg/mg 9 - 20 [facility] Basic metabolic 2000 panelon 03-05-2023 Anion gap [Moles/Vol] 9 mmol/L Normal 9-18 [facility] Comment on above: Order Comment: Speci men Type: BLOOD SPECIMENOrdering Facility: [facility] Address: [address] [place] [address] Performed By: #### 2 4321-2 ####[facility] LABCLIA [id number] [place] [address] [place] Calcium [Mass/Vol] 9.0 mg/dL Normal 8.5-10.2 [facility] Comment on above: Order Comment: Speci men Type: BLOOD SPECIMENOrdering Facility: [facility] Address: [address] [place], [place] [address] Performed By: #### 2 4321-2 ####[facility] LABCLIA [id number] [place] [address] [place] Chloride [Moles/Vol] 102 mmol/L Normal 97-105 [facility] Comment on above: Order Comment: Speci men Type: BLOOD SPECIMENOrdering Facility: [facility] Address: [address] [place], [place] [address] Performed By: #### 2 4321-2 ####[facility] LABCLIA [id number] [place] [address] [place] CO2 [Moles/Vol] 23 mmol/L Normal 22-30 [facility] Comment on above: Order Comment: Speci men Type: BLOOD SPECIMENOrdering Facility: [facility] Address: [address] [place], [place] [address] Performed By: #### 2 4321-2 ####[facility] LABCLIA [id number] [place] [address] [place] Creatinine [Mass/Vol] 1.47 mg/dL High 0.73-1.22 [facility] Comment on above: Order Comment: Iesha marin Type: BLOOD SPECIMENOrdering Facility: [facility] Address: [address] [address] Performed By: #### 2 4321-2 ####[facility] LABCLIA [id number] [address] [place] ESTIMATED GLOMERULAR FILTRATION RATE 55 mL/min/1.73m??? Low >=60 [facility] Comment on above: Order Comment: Iesha marin Type: BLOOD SPECIMENOrdering Facility: [facility] Address: [address] [address] Result Comment: Dayan mated Glomerular Filtration Rate (eGFR) is calculated using the 2020 CKD-EPI creatinine equation. This equation utilizes serum creatinine, sex, and age as parameters. The creatinine assay has traceable calibration to isotope dilution-mass spectrometry. Refer to KDIGO guidelines for clinical interpretation. In patients with unstable renal function, e.g. those with acute kidney injury, the eGFR may not accurately reflect actual GFR. Performed By: #### 2 4321-2 ####[facility] LABCLIA [id number] [place] [address] [place] Glucose [Mass/Vol] 113 mg/dL High 74-99 [facility] Comment on above: Order Comment: Iesha marin Type: BLOOD SPECIMENOrdering Facility: [facility] Address: [address] [address] Result Comment: The [place] Diabetes Association (ADA) provides guidance for cutoff values for fasting glucose and random glucose. The ADA defines fasting as no caloric intake for at least 8 hours. Fasting plasma glucose results between 100 to 125 mg/dL indicate increased risk for diabetes (prediabetes).Fasting plasma glucose results greater than or equal to 126 mg/dL meet the criteria for diagnosis of diabetes. In the absence of unequivocal hyperglycemia, results should be confirmed by repeat testing. In a patient with classic symptoms of hyperglycemia or hyperglycemic crisis, random plasma glucose results greater than or equal to 200 mg/dL meet the criteria for diagnosis of diabetes.Reference: Standards of Medical Care in Diabetes 2016, [place] [employer] Association. Diabetes Care. 2016.39(Suppl 1). Performed By: #### 2 4321-2 ####[facility] LABCLIA [id number] [place] [address] [place] Potassium [Moles/Vol] 4.5 mmol/L Normal 3.7-5.1 [facility] Comment on above: Order Comment: Speci men Type: BLOOD SPECIMENOrdering Facility: [facility] Address: [address] [address] Performed By: #### 2 4321-2 ####[facility] LABIA [id number] [place] [address] [place] Sodium [Moles/Vol] 134 mmol/L Low 136-144 [facility] Comment on above: Order Comment: Speci men Type: BLOOD SPECIMENOrdering Facility: [facility] Address: [address] [address] Performed By: #### 2 4321-2 ####[facility] LABIA [id number] [place] [address] [place] Urea nitrogen [Mass/Vol] 19 mg/dL Normal 9-24 [facility] Comment on above: Order Comment: Speci men Type: BLOOD SPECIMENOrdering Facility: [facility] Address: [address] [address] Performed By: #### 2 4321-2 ####[facility] [id number] [place] [address] [place] CNDSon 03-05-2023 CNDS Normal [facility] ANES POSTPROC EVALon 023 ANES POSTPROC EVAL Normal [facility] ANES PRE-OPon 03-04-2023 ANES PRE-OP Normal [facility] BRIEF OP NOTon 03-04-2023 BRIEF OP NOT Normal [facility] Basic metabolic 2000 panelon 03-04-2023 Anion gap [Moles/Vol] 9 mmol/L Normal 9-18 [facility] Comment on above: Order Comment: Speci men Type: BLOOD SPECIMENOrdering Facility: [facility] Address: [address] [place] [address] Performed By: #### 2 4321-2 ####[facility] LABCLIA [id number] [place] [address] [place] Calcium [Mass/Vol] 9.3 mg/dL Normal 8.5-10.2 [facility] Comment on above: Order Comment: Speci men Type: BLOOD SPECIMENOrdering Facility: [facility] Address: [address] [place] [address] Performed By: #### 2 4321-2 ####[facility] LABCLIA [id number] [place] [address] [place] Chloride [Moles/Vol] 102 mmol/L Normal 97-105 [facility] Comment on above: Order Comment: Speci men Type: BLOOD SPECIMENOrdering Facility: [facility] Address: [address] [place] [address] Performed By: #### 2 4321-2 ####[facility] LABCLIA [id number] [place] [address] [place] CO2 [Moles/Vol] 22 mmol/L Normal 22-30 [facility] Comment on above: Order Comment: Speci men Type: BLOOD SPECIMENOrdering Facility: [facility] Address: [address] [place], [place] [address] Performed By: #### 2 4321-2 ####[facility] LABCLIA [id number] [place] [address] [place] Creatinine [Mass/Vol] 1.34 mg/dL High 0.73-1.22 [facility] Comment on above: Order Comment: Speci men Type: BLOOD SPECIMENOrdering Facility: [facility] Address: [address] [address] Performed By: #### 2 4321-2 ####[facility] LABCLIA [id number] [place] [address] [place] [facility] ESTIMATED GLOMERULAR FILTRATION RATE 62 mL/min/1.73m??? Normal >=60 [facility] Comment on above: Order Comment: Iesha marin Type: BLOOD SPECIMENOrdering Facility: [facility] Address: [address] [address] Result Comment: Dayan mated Glomerular Filtration Rate (eGFR) is calculated using the 2020 CKD-EPI creatinine equation. This equation utilizes serum creatinine, sex, and age as parameters. The creatinine assay has traceable calibration to isotope dilution-mass spectrometry. Refer to KDIGO guidelines for clinical interpretation. In patients with unstable renal function, e.g. those with acute kidney injury, the eGFR may not accurately reflect actual GFR. Performed By: #### 2 4321-2 ####[facility] LABIA [id number] [place] [address] [place] Glucose [Mass/Vol] 104 mg/dL High 74-99 [facility] Comment on above: Order Comment: Iesha marin Type: BLOOD SPECIMENOrdering Facility: [facility] Address: [address] [place] [address] Result Comment: The [place] Diabetes Association (ADA) provides guidance for cutoff values for fasting glucose and random glucose. The ADA defines fasting as no caloric intake for at least 8 hours. Fasting plasma glucose results between 100 to 125 mg/dL indicate increased risk for diabetes (prediabetes).Fasting plasma glucose results greater than or equal to 126 mg/dL meet the criteria for diagnosis of diabetes. In the absence of unequivocal hyperglycemia, results should be confirmed by repeat testing. In a patient with classic symptoms of hyperglycemia or hyperglycemic crisis, random plasma glucose results greater than or equal to 200 mg/dL meet the criteria for diagnosis of diabetes.Reference: Standards of Medical Care in Diabetes 2016, [place] [employer]. Diabetes Care. 2016.39(Suppl 1). Performed By: #### 2 4321-2 ####[facility] LABCLIA [id number] [place] [address] [place] Potassium [Moles/Vol] 4.7 mmol/L Normal 3.7-5.1 [facility] Comment on above: Order Comment: Speci men Type: BLOOD SPECIMENOrdering Facility: [facility] Address: [address] [place] [address] Performed By: #### 2 4321-2 ####[facility] LABCLIA [id number] [place] [address] [place] Sodium [Moles/Vol] 133 mmol/L Low 136-144 [facility] Comment on above: Order Comment: Speci men Type: BLOOD SPECIMENOrdering Facility: [facility] Address: [address] [place] [address] Performed By: #### 2 4321-2 ####[facility] LABCLIA [id number] [place] [address] [place] Urea nitrogen [Mass/Vol] 20 mg/dL Normal 9-24 [facility] Comment on above: Order Comment: Speci men Type: BLOOD SPECIMENOrdering Facility: [facility] Address: [address] [place] [address] Performed By: #### 2 4321-2 ####[facility] LABCLIA [id number] [place] [address] [place] CONSULT PROGon 03-04-2023 CONSULT PROG Normal [facility] CT BRAIN WO IVCONon 03-04-[address] BRAIN WO IVCON Normal [facility] OPERATIVE NOon 03-04-2023 OPERATIVE NO Normal [facility] SURGICAL PATHOLOGYon 023 CASE REPORT Normal [facility] Comment on above: Order Comment: Speci men Type: DEVICE SPECIMENOrdering Facility: [facility] Address: [address] [place] [address] Result Comment: Surg ical Pathology Report Case: [id number] Provider: Leobardo Cabezas MD Collected: 03/04/2023 02:44 PMOrdering Location: Admitting Received: 03/04/2023 04:33 PMPathologist: PATTI Martinpecimen: DEVICE, explanted SEEG electrodes, bolts & caps (19 each total) Performed By: #### S ####[facility] LABCLIA [id number] [address] CLINICAL HISTORY Normal [facility] Comment on above: Order Comment: Speci men Type: DEVICE SPECIMENOrdering Facility: [facility] Address: [address] [address] Result Comment: Pre- op diagnosis:Epilepsy (HCC) [G40.909] Performed By: #### S ####[facility] LABCLIA [id number] [address] FINAL DIAGNOSIS Normal [facility] Comment on above: Order Comment: Speci men Type: DEVICE SPECIMENOrdering Facility: [facility] Address: [address] [address] Result Comment: A. S ite not specified, hardware:- Unremarkable medical hardware (gross diagnosis only)./CHANDLER/katrina 03/08/2023 Performed By: #### S ####[facility] LABCLIA [id number] [address] FINAL PERFORMING LAB Normal [facility] Comment on above: Order Comment: Speci men Type: DEVICE SPECIMENOrdering Facility: [facility] Address: [address] [address] Result Comment: Diag nostic interpretation performed at [facility], [address] [address] CLIA# [id number] Director: Brandt Barnard M.D. Performed By: #### S ####[facility] LABCLIA [id number] [place] [facility] GROSS DESCRIPTION A. DEVICE Normal [facility] Comment on above: Order Comment: Iesha marin Type: DEVICE SPECIMENOrdering Facility: [facility] Address: [address] [place] [address] Result Comment: Rece ived unfixed labeled as explanted SEEG electrodes, bolts & caps 19 each total , are nineteen electrodes with attached nineteen caps each measuring approximately 8.0 cm in length x 0.2 cm in diameter, and nineteen bolts each averaging approximately 2.8 cm in length x 0.2 cm in diameter. No tissue is present. No sections are submitted. The specimen is shown to Dr. Mcintosh.[place]/katrina 03/08/2023ross examination performed at [facility], [facility] [address] CLIA# [id number] Performed By: #### S ####[facility] LABCLIA [id number] [address] [place] Tacrolimus Bld-mCncon 2022 Tacrolimus (Bld) [Mass/Vol] 10.1 ng/mL Normal 5.0-20.0 [facility] Comment on above: Order Comment: Iesha marin Type: BLOOD SPECIMENOrdering Facility: [facility] Address: [address] [place] [address] Result Comment: Nayely vidualized target levels for a given patient will depend on many factors (including the type of organ transplant, time since transplantation, concurrent medications, and other clinical factors), and should be assessed by those health care providers experienced in the management of immunosuppression. Reference ranges and high/low indicator flags are provided as general guidelines only. The treating physician must determine appropriate target levels/dosing based on the specific clinical situation. Test performed by chemiluminescent immunoassay using [employer] Alinity i. Performed By: #### 1 1253-2 ####[facility] LABCLIA [id number] [place] [address] [place] Basic metabolic 2000 panelon 03-03-2023 Anion gap [Moles/Vol] 11 mmol/L Normal 9-18 [facility] Comment on above: Order Comment: Speci men Type: BLOOD SPECIMENOrdering Facility: [facility] Address: [address] [address] Performed By: #### 2 4321-2 ####[facility] LABCLIA [id number] [place] [address] [place] Calcium [Mass/Vol] 9.8 mg/dL Normal 8.5-10.2 [facility] Comment on above: Order Comment: Speci men Type: BLOOD SPECIMENOrdering Facility: [facility] Address: [address] Performed By: #### 2 4321-2 ####[facility] LABCLIA [id number] [place] [address] [place] Chloride [Moles/Vol] 100 mmol/L Normal 97-105 [facility] Comment on above: Order Comment: Speci men Type: BLOOD SPECIMENOrdering Facility: [facility] Address: [address] Performed By: #### 2 4321-2 ####[facility] LABCLIA [id number] [place] [address] [place] CO2 [Moles/Vol] 21 mmol/L Low 22-30 [facility] Comment on above: Order Comment: Speci men Type: BLOOD SPECIMENOrdering Facility: [facility] Address: [address] Performed By: #### 2 4321-2 ####[facility] LABCLIA [id number] [place] [address] [place] Creatinine [Mass/Vol] 1.23 mg/dL High 0.73-1.22 [facility] Comment on above: Order Comment: Speci men Type: BLOOD SPECIMENOrdering Facility: [facility] Address: [address] Performed By: #### 2 4321-2 ####[facility] LABCLIA [id number] [place] [address] [place] ESTIMATED GLOMERULAR FILTRATION RATE 68 mL/min/1.73m??? Normal >=60 [facility] Comment on above: Order Comment: Iesha marin Type: BLOOD SPECIMENOrdering Facility: [facility] Address: [address] [address] Result Comment: Dayan mated Glomerular Filtration Rate (eGFR) is calculated using the 2020 CKD-EPI creatinine equation. This equation utilizes serum creatinine, sex, and age as parameters. The creatinine assay has traceable calibration to isotope dilution-mass spectrometry. Refer to KDIGO guidelines for clinical interpretation. In patients with unstable renal function, e.g. those with acute kidney injury, the eGFR may not accurately reflect actual GFR. Performed By: #### 2 4321-2 ####[facility] LABIA [id number] [place] [address] [place] Glucose [Mass/Vol] 107 mg/dL High 74-99 [facility] Comment on above: Order Comment: Iesha marin Type: BLOOD SPECIMENOrdering Facility: [facility] Address: [address] [place] [address] Result Comment: The [place] Diabetes Association (ADA) provides guidance for cutoff values for fasting glucose and random glucose. The ADA defines fasting as no caloric intake for at least 8 hours. Fasting plasma glucose results between 100 to 125 mg/dL indicate increased risk for diabetes (prediabetes).Fasting plasma glucose results greater than or equal to 126 mg/dL meet the criteria for diagnosis of diabetes. In the absence of unequivocal hyperglycemia, results should be confirmed by repeat testing. In a patient with classic symptoms of hyperglycemia or hyperglycemic crisis, random plasma glucose results greater than or equal to 200 mg/dL meet the criteria for diagnosis of diabetes.Reference: Standards of Medical Care in Diabetes 2016, [place] [employer]. Diabetes Care. 2016.39(Suppl 1). Performed By: #### 2 4321-2 ####[facility] LABIA [id number] [place] [address] [place] Potassium [Moles/Vol] 5.0 mmol/L Normal 3.7-5.1 [facility] Comment on above: Order Comment: Speci men Type: BLOOD SPECIMENOrdering Facility: [facility] Address: [address] Performed By: #### 2 4321-2 ####[facility] LABCLIA [id number] [place] [address] [place] Sodium [Moles/Vol] 132 mmol/L Low 136-144 [facility] Comment on above: Order Comment: Speci men Type: BLOOD SPECIMENOrdering Facility: [facility] Address: [address] Performed By: #### 2 4321-2 ####[facility] LABCLIA [id number] [place] [address] [place] Urea nitrogen [Mass/Vol] 19 mg/dL Normal 9-24 [facility] Comment on above: Order Comment: Speci men Type: BLOOD SPECIMENOrdering Facility: [facility] Address: [address] Performed By: #### 2 4321-2 ####[facility] LABCLIA [id number] [place] [address] [place] CNPNon 03-03-2023 CNPN Normal [facility] CONFIRM BLOOD TYPEon 023 ABO B Normal [facility] Comment on above: Order Comment: Speci men Type: BLOOD SPECIMENOrdering Facility: [facility] Address: [address] Performed By: #### C ONAB ####[facility] BLOOD BANKIA [id number] [place] [address] [place] Rh Nom (Bld) Positive Normal [facility] Comment on above: Order Comment: Speci men Type: BLOOD SPECIMENOrdering Facility: [facility] Address: [address] Performed By: #### C ONABO ####[facility] BLOOD BANKCLIA [id number] [place] [address] [place] CONSULTon 03-03-2023 CONSULT Normal [facility] CONSULT PROGon 03-03-2023 CONSULT PROG Normal [facility] TYPE + SCREENon 03-03-2023 ABO B Normal [facility] Comment on above: Order Comment: Speci men Type: BLOOD SPECIMENOrdering Facility: [facility] Address: [address] [place] [address] Performed By: #### T SCR ####[facility] BLOOD BANKCLIA [id number] [address] HISTORICAL AB SCR STATUS Negative Normal [facility] Comment on above: Order Comment: Speci men Type: BLOOD SPECIMENOrdering Facility: [facility] Address: [address] [place] [address] Performed By: #### T SCR ####[facility] BLOOD BANKCLIA [id number] [address] [place] Rh Nom (Bld) Positive Normal [facility] Comment on above: Order Comment: Speci men Type: BLOOD SPECIMENOrdering Facility: [facility] Address: [address] [place] [address] Performed By: #### T SCR ####[facility] BLOOD BANKCLIA [id number] [address] [place] TYPE AND SCREEN EXPIRATION 03/06/2023 23:59 Normal [facility] Comment on above: Order Comment: Speci men Type: BLOOD SPECIMENOrdering Facility: [facility] Address: [address] [place] [address] Performed By: #### T SCR ####[facility] BLOOD BANKCLIA [id number] [place] [address] [place] Tacrolimus Bld-mCncon 2022 Tacrolimus (Bld) [Mass/Vol] 9.7 ng/mL Normal 5.0-20.0 [facility] Comment on above: Order Comment: Iesha marin Type: BLOOD SPECIMENOrdering Facility: [facility] Address: [address] [place] [address] Result Comment: Nayely vidualized target levels for a given patient will depend on many factors (including the type of organ transplant, time since transplantation, concurrent medications, and other clinical factors), and should be assessed by those health care providers experienced in the management of immunosuppression. Reference ranges and high/low indicator flags are provided as general guidelines only. The treating physician must determine appropriate target levels/dosing based on the specific clinical situation. Test performed by chemiluminescent immunoassay using [employer] Alinity i. Performed By: #### 1 1253-2 ####[facility] LABCLIA [id number] [place] [address] [place] Basic metabolic 2000 panelon 03-02-2023 Anion gap [Moles/Vol] 12 mmol/L Normal 9-18 [facility] Comment on above: Order Comment: Iesha marin Type: BLOOD SPECIMENOrdering Facility: [facility] Address: [address] Performed By: #### 2 4321-2 ####[facility] LABCLIA [id number] [place] [address] [place] Calcium [Mass/Vol] 9.7 mg/dL Normal 8.5-10.2 [facility] Comment on above: Order Comment: Makaylai men Type: BLOOD SPECIMENOrdering Facility: [facility] Address: [address] [id number] Performed By: #### 2 4321-2 ####[facility] LABCLIA [id number] [place] [address] [place] Chloride [Moles/Vol] 99 mmol/L Normal 97-105 [facility] Comment on above: Order Comment: Makaylai men Type: BLOOD SPECIMENOrdering Facility: [facility] Address: [address] [place] [address] Performed By: #### 2 4321-2 ####[facility] LABCLIA [id number] [place] [address] [place] CO2 [Moles/Vol] 22 mmol/L Normal 22-30 [facility] Comment on above: Order Comment: Speci men Type: BLOOD SPECIMENOrdering Facility: [facility] Address: [address] [place] [address] Performed By: #### 2 4321-2 ####[facility] LABIA [id number] [place] [address] [place] Creatinine [Mass/Vol] 1.25 mg/dL High 0.73-1.22 [facility] Comment on above: Order Comment: Speci men Type: BLOOD SPECIMENOrdering Facility: [facility] Address: [address] [place] [address] Performed By: #### 2 4321-2 ####[facility] LABIA [id number] [place] [address] [place] ESTIMATED GLOMERULAR FILTRATION RATE 67 mL/min/1.73m??? Normal >=60 [facility] Comment on above: Order Comment: Speci men Type: BLOOD SPECIMENOrdering Facility: [facility] Address: [address] [place] [address] Result Comment: Dayan mated Glomerular Filtration Rate (eGFR) is calculated using the 2020 CKD-EPI creatinine equation. This equation utilizes serum creatinine, sex, and age as parameters. The creatinine assay has traceable calibration to isotope dilution-mass spectrometry. Refer to KDIGO guidelines for clinical interpretation. In patients with unstable renal function, e.g. those with acute kidney injury, the eGFR may not accurately reflect actual GFR. Performed By: #### 2 4321-2 ####[facility] LABCLIA [id number] [place] [address] [place] Glucose [Mass/Vol] 99 mg/dL Normal 74-99 [facility] Comment on above: Order Comment: Speci men Type: BLOOD SPECIMENOrdering Facility: [facility] Address: [address] [place] [address] Result Comment: The [place] Diabetes Association (ADA) provides guidance for cutoff values for fasting glucose and random glucose. The ADA defines fasting as no caloric intake for at least 8 hours. Fasting plasma glucose results between 100 to 125 mg/dL indicate increased risk for diabetes (prediabetes).Fasting plasma glucose results greater than or equal to 126 mg/dL meet the criteria for diagnosis of diabetes. In the absence of unequivocal hyperglycemia, results should be confirmed by repeat testing. In a patient with classic symptoms of hyperglycemia or hyperglycemic crisis, random plasma glucose results greater than or equal to 200 mg/dL meet the criteria for diagnosis of diabetes.Reference: Standards of Medical Care in Diabetes 2016, [place] [employer]. Diabetes Care. 2016.39(Suppl 1). Performed By: #### 2 4321-2 ####[facility] LABCLIA [id number] [place] [address] [place] Potassium [Moles/Vol] 4.4 mmol/L Normal 3.7-5.1 [facility] Comment on above: Order Comment: Speci men Type: BLOOD SPECIMENOrdering Facility: [facility] Address: [address] [place] [address] Performed By: #### 2 4321-2 ####[facility] LABCLIA [id number] [place] [address] [place] Sodium [Moles/Vol] 133 mmol/L Low 136-144 [facility] Comment on above: Order Comment: Speci men Type: BLOOD SPECIMENOrdering Facility: [facility] Address: [address] [place] [address] Performed By: #### 2 4321-2 ####[facility] LABCLIA [id number] [place] [address] [place] Urea nitrogen [Mass/Vol] 21 mg/dL Normal 9-24 [facility] Comment on above: Order Comment: Speci men Type: BLOOD SPECIMENOrdering Facility: [facility] Address: [address] [place] [address] Performed By: #### 2 4321-2 ####[facility] LABCLIA [id number] [place] [address] [place] CONSULT PROGon 03-02-2023 CONSULT PROG Normal [facility] NUTRITIONon 03-02-2023 NUTRITION Normal [facility] Basic metabolic 2000 panelon 03-01-2023 Anion gap [Moles/Vol] 10 mmol/L Normal 9-18 [facility] Comment on above: Order Comment: Speci men Type: BLOOD SPECIMENOrdering Facility: [facility] Address: [address] [place] [address] Performed By: #### 2 4321-2 ####[facility] LABCLIA [id number] [place] [address] [place] Calcium [Mass/Vol] 9.8 mg/dL Normal 8.5-10.2 [facility] Comment on above: Order Comment: Speci men Type: BLOOD SPECIMENOrdering Facility: [facility] Address: [address] [place], [place] [address] Performed By: #### 2 4321-2 ####[facility] LABCLIA [id number] [place] [address] [place] Chloride [Moles/Vol] 100 mmol/L Normal 97-105 [facility] Comment on above: Order Comment: Speci men Type: BLOOD SPECIMENOrdering Facility: [facility] Address: [address] [place] [id number] Performed By: #### 2 4321-2 ####[facility] LABCLIA [id number] [place] [address] [place] CO2 [Moles/Vol] 25 mmol/L Normal 22-30 [facility] Comment on above: Order Comment: Speci men Type: BLOOD SPECIMENOrdering Facility: [facility] Address: [address] [place] [address] Performed By: #### 2 4321-2 ####[facility] LABIA [id number] [place] [address] [place] [facility] Creatinine [Mass/Vol] 1.34 mg/dL High 0.73-1.22 [facility] Comment on above: Order Comment: Speci men Type: BLOOD SPECIMENOrdering Facility: [facility] Address: [address] [place] [place] [address] Performed By: #### 2 4321-2 ####[facility] LABIA [id number] [place] [address] [place] ESTIMATED GLOMERULAR FILTRATION RATE 62 mL/min/1.73m??? Normal >=60 [facility] Comment on above: Order Comment: Speci men Type: BLOOD SPECIMENOrdering Facility: [facility] Address: [address] [place] [place] [address] Result Comment: Dayan mated Glomerular Filtration Rate (eGFR) is calculated using the 2020 CKD-EPI creatinine equation. This equation utilizes serum creatinine, sex, and age as parameters. The creatinine assay has traceable calibration to isotope dilution-mass spectrometry. Refer to KDIGO guidelines for clinical interpretation. In patients with unstable renal function, e.g. those with acute kidney injury, the eGFR may not accurately reflect actual GFR. Performed By: #### 2 4321-2 ####[facility] LABIA [id number] [place] [address] [place] Glucose [Mass/Vol] 118 mg/dL High 74-99 [facility] Comment on above: Order Comment: Speci men Type: BLOOD SPECIMENOrdering Facility: [facility] Address: [address] [place] [address] Result Comment: The [place] Diabetes Association (ADA) provides guidance for cutoff values for fasting glucose and random glucose. The ADA defines fasting as no caloric intake for at least 8 hours. Fasting plasma glucose results between 100 to 125 mg/dL indicate increased risk for diabetes (prediabetes).Fasting plasma glucose results greater than or equal to 126 mg/dL meet the criteria for diagnosis of diabetes. In the absence of unequivocal hyperglycemia, results should be confirmed by repeat testing. In a patient with classic symptoms of hyperglycemia or hyperglycemic crisis, random plasma glucose results greater than or equal to 200 mg/dL meet the criteria for diagnosis of diabetes.Reference: Standards of Medical Care in Diabetes 2016, [place] [employer]. Diabetes Care. 2016.39(Suppl 1). Performed By: #### 2 4321-2 ####[facility] LABIA [id number] [place] [address] [place] Potassium [Moles/Vol] 4.7 mmol/L Normal 3.7-5.1 [facility] Comment on above: Order Comment: Speci men Type: BLOOD SPECIMENOrdering Facility: [facility] Address: [address] [place] [address] Performed By: #### 2 4321-2 ####[facility] [id number] [place] [address] [place] Sodium [Moles/Vol] 135 mmol/L Low 136-144 [facility] Comment on above: Order Comment: Makaylai tania Type: BLOOD SPECIMENOrdering Facility: [facility] Address: [address] [place] [address] Performed By: #### 2 4321-2 ####[facility] LABIA [id number] [place] [address] [place] Urea nitrogen [Mass/Vol] 20 mg/dL Normal 9-24 [facility] Comment on above: Order Comment: Speci men Type: BLOOD SPECIMENOrdering Facility: [facility] Address: [address] [place] [address] Performed By: #### 2 4321-2 ####[facility] LABIA [id number] [place] [address] [place] CONSULT PROGon 03-01-2023 CONSULT PROG Normal [facility] CONSULT PROG Normal [facility] Tacrolimus Bld-mCncon 2022 Tacrolimus (Bld) [Mass/Vol] 9.1 ng/mL Normal 5.0-20.0 [facility] Comment on above: Order Comment: Iesha marin Type: BLOOD SPECIMENOrdering Facility: [facility] Address: [address] [place] [address] Result Comment: Nayely vidualized target levels for a given patient will depend on many factors (including the type of organ transplant, time since transplantation, concurrent medications, and other clinical factors), and should be assessed by those health care providers experienced in the management of immunosuppression. Reference ranges and high/low indicator flags are provided as general guidelines only. The treating physician must determine appropriate target levels/dosing based on the specific clinical situation. Test performed by chemiluminescent immunoassay using Cumulux Alinity i. Performed By: #### 1 1253-2 ####[facility] LABCLIA [id number] [place] [address] [place] Basic metabolic 2000 panelon 02-28-2023 Anion gap [Moles/Vol] 9 mmol/L Normal 9-18 [facility] Comment on above: Order Comment: Iesha marin Type: BLOOD SPECIMENOrdering Facility: [facility] Address: [address] [place], [place] [id number] Performed By: #### 2 4321-2 ####[facility] LABCLIA [id number] [place] [address] [place] Calcium [Mass/Vol] 10.0 mg/dL Normal 8.5-10.2 [facility] Comment on above: Order Comment: Makaylai tania Type: BLOOD SPECIMENOrdering Facility: [facility] Address: [address] [place] [address] Performed By: #### 2 4321-2 ####[facility] LABCLIA [id number] [place] [address] [place] Chloride [Moles/Vol] 98 mmol/L Normal 97-105 [facility] Comment on above: Order Comment: Speci men Type: BLOOD SPECIMENOrdering Facility: [facility] Address: [address] [place] [address] Performed By: #### 2 4321-2 ####[facility] LABCLIA [id number] [place] [address] [place] CO2 [Moles/Vol] 24 mmol/L Normal 22-30 [facility] Comment on above: Order Comment: Speci men Type: BLOOD SPECIMENOrdering Facility: [facility] Address: [address] [place] [address] Performed By: #### 2 4321-2 ####[facility] LABIA [id number] [place] [address] [place] Creatinine [Mass/Vol] 1.26 mg/dL High 0.73-1.22 [facility] Comment on above: Order Comment: Speci men Type: BLOOD SPECIMENOrdering Facility: [facility] Address: [address] [place] [address] Performed By: #### 2 4321-2 ####[facility] LABIA [id number] [place] [address] [place] ESTIMATED GLOMERULAR FILTRATION RATE 67 mL/min/1.73m??? Normal >=60 [facility] Comment on above: Order Comment: Speci men Type: BLOOD SPECIMENOrdering Facility: [facility] Address: [address] [place] [address] Result Comment: Dayan mated Glomerular Filtration Rate (eGFR) is calculated using the 2020 CKD-EPI creatinine equation. This equation utilizes serum creatinine, sex, and age as parameters. The creatinine assay has traceable calibration to isotope dilution-mass spectrometry. Refer to KDIGO guidelines for clinical interpretation. In patients with unstable renal function, e.g. those with acute kidney injury, the eGFR may not accurately reflect actual GFR. Performed By: #### 2 4321-2 ####[facility] LABCLIA [id number] [place] [address] [place] Glucose [Mass/Vol] 108 mg/dL High 74-99 [facility] Comment on above: Order Comment: Speci men Type: BLOOD SPECIMENOrdering Facility: [facility] Address: [address] [place] [address] Result Comment: The [place] Diabetes Association (ADA) provides guidance for cutoff values for fasting glucose and random glucose. The ADA defines fasting as no caloric intake for at least 8 hours. Fasting plasma glucose results between 100 to 125 mg/dL indicate increased risk for diabetes (prediabetes).Fasting plasma glucose results greater than or equal to 126 mg/dL meet the criteria for diagnosis of diabetes. In the absence of unequivocal hyperglycemia, results should be confirmed by repeat testing. In a patient with classic symptoms of hyperglycemia or hyperglycemic crisis, random plasma glucose results greater than or equal to 200 mg/dL meet the criteria for diagnosis of diabetes.Reference: Standards of Medical Care in Diabetes 2016, [place] [employer]. Diabetes Care. 2016.39(Suppl 1). Performed By: #### 2 4321-2 ####[facility] LABCLIA [id number] [place] [address] [place] Potassium [Moles/Vol] 4.7 mmol/L Normal 3.7-5.1 [facility] Comment on above: Order Comment: Speci men Type: BLOOD SPECIMENOrdering Facility: [facility] Address: [address] [place] [address] Performed By: #### 2 4321-2 ####[facility] LABCLIA [id number] [place] [address] [place] Sodium [Moles/Vol] 131 mmol/L Low 136-144 [facility] Comment on above: Order Comment: Speci men Type: BLOOD SPECIMENOrdering Facility: [facility] Address: [address] [place] [address] Performed By: #### 2 4321-2 ####[facility] LABCLIA [id number] [place] [address] [place] Urea nitrogen [Mass/Vol] 22 mg/dL Normal 9-24 [facility] Comment on above: Order Comment: Specjose luis marin Type: BLOOD SPECIMENOrdering Facility: [facility] Address: [address] [place] [id number] Performed By: #### 2 4321-2 ####[facility] LABCLIA [id number] [place] [address] [place] CONSULT PROGon 02-28-2023 CONSULT PROG Normal [facility] Sodium SerPl-sCncon 02-29-20 23 Sodium [Moles/Vol] 134 mmol/L Low 136-144 [facility] Comment on above: Order Comment: Speci men Type: BLOOD SPECIMENOrdering Facility: [facility] Address: [address] [place] [address] Performed By: #### 2 951-2 ####[facility] LABIA [id number] [address] [place] Tacrolimus Bld-mCncon 2022 Tacrolimus (Bld) [Mass/Vol] 11.0 ng/mL Normal 5.0-20.0 [facility] Comment on above: Order Comment: Iesha marin Type: BLOOD SPECIMENOrdering Facility: [facility] Address: [address] [place] [address] Result Comment: Nayely vidualized target levels for a given patient will depend on many factors (including the type of organ transplant, time since transplantation, concurrent medications, and other clinical factors), and should be assessed by those health care providers experienced in the management of immunosuppression. Reference ranges and high/low indicator flags are provided as general guidelines only. The treating physician must determine appropriate target levels/dosing based on the specific clinical situation. Test performed by chemiluminescent immunoassay using Cumulux Alinity i. Performed By: #### 1 1253-2 ####[facility] LABIA [id number] [place] [address] [place] BRIEF OP NOTon 02-27-2023 BRIEF OP NOT Normal [facility] Basic metabolic 2000 panelon 02-27-2023 Anion gap [Moles/Vol] 13 mmol/L Normal 9-18 [facility] Comment on above: Order Comment: Speci men Type: BLOOD SPECIMENOrdering Facility: [facility] Address: [address] Performed By: #### 2 4321-2 ####[facility] LABCLIA [id number] [place] [address] [place] Calcium [Mass/Vol] 9.9 mg/dL Normal 8.5-10.2 [facility] Comment on above: Order Comment: Speci men Type: BLOOD SPECIMENOrdering Facility: [facility] Address: [address] Performed By: #### 2 4321-2 ####[facility] LABCLIA [id number] [place] [address] [place] Chloride [Moles/Vol] 95 mmol/L Low 97-105 [facility] Comment on above: Order Comment: Speci men Type: BLOOD SPECIMENOrdering Facility: [facility] Address: [address] Performed By: #### 2 4321-2 ####[facility] LABCLIA [id number] [place] [address] [place] CO2 [Moles/Vol] 22 mmol/L Normal 22-30 [facility] Comment on above: Order Comment: Speci men Type: BLOOD SPECIMENOrdering Facility: [facility] Address: [address] Performed By: #### 2 4321-2 ####[facility] LABCLIA [id number] [place] [address] [place] Creatinine [Mass/Vol] 1.24 mg/dL High 0.73-1.22 [facility] Comment on above: Order Comment: Speci men Type: BLOOD SPECIMENOrdering Facility: [facility] Address: [address] Performed By: #### 2 4321-2 ####[facility] LABCLIA [id number] [address] ESTIMATED GLOMERULAR FILTRATION RATE 68 mL/min/1.73m??? Normal >=60 [facility] Comment on above: Order Comment: Iesha marin Type: BLOOD SPECIMENOrdering Facility: [facility] Address: [address] [place] [address] Result Comment: Dayan mated Glomerular Filtration Rate (eGFR) is calculated using the 2020 CKD-EPI creatinine equation. This equation utilizes serum creatinine, sex, and age as parameters. The creatinine assay has traceable calibration to isotope dilution-mass spectrometry. Refer to KDIGO guidelines for clinical interpretation. In patients with unstable renal function, e.g. those with acute kidney injury, the eGFR may not accurately reflect actual GFR. Performed By: #### 2 4321-2 ####[facility] [id number] [address] Glucose [Mass/Vol] 105 mg/dL High 74-99 [facility] Comment on above: Order Comment: Iesha marin Type: BLOOD SPECIMENOrdering Facility: [facility] Address: [address] [place] [address] Result Comment: The [place] Diabetes Association (ADA) provides guidance for cutoff values for fasting glucose and random glucose. The ADA defines fasting as no caloric intake for at least 8 hours. Fasting plasma glucose results between 100 to 125 mg/dL indicate increased risk for diabetes (prediabetes).Fasting plasma glucose results greater than or equal to 126 mg/dL meet the criteria for diagnosis of diabetes. In the absence of unequivocal hyperglycemia, results should be confirmed by repeat testing. In a patient with classic symptoms of hyperglycemia or hyperglycemic crisis, random plasma glucose results greater than or equal to 200 mg/dL meet the criteria for diagnosis of diabetes.Reference: Standards of Medical Care in Diabetes 2016, [place] [employer]. Diabetes Care. 2016.39(Suppl 1). Performed By: #### 2 4321-2 ####[facility] LABIA [id number] [id number] [address] [place] Potassium [Moles/Vol] 5.1 mmol/L Normal 3.7-5.1 [facility] Comment on above: Order Comment: Speci men Type: BLOOD SPECIMENOrdering Facility: [facility] Address: [address] [place], [place] [address] Performed By: #### 2 4321-2 ####[facility] LABCLIA [id number] [place] [address] [place] Sodium [Moles/Vol] 130 mmol/L Low 136-144 [facility] Comment on above: Order Comment: Speci men Type: BLOOD SPECIMENOrdering Facility: [facility] Address: [address] [place] [address] Performed By: #### 2 4321-2 ####[facility] LABCLIA [id number] [place] [address] [place] Urea nitrogen [Mass/Vol] 23 mg/dL Normal 9-24 [facility] Comment on above: Order Comment: Speci men Type: BLOOD SPECIMENOrdering Facility: [facility] Address: [address] [place] [address] Performed By: #### 2 4321-2 ####[facility] LABCLIA [id number] [place] [address] [place] CONSULT PROGon 02-27-2023 CONSULT PROG Normal [facility] IR FILTER PLACEMENT IVCon IR FILTER PLACEMENT IVC Normal [facility] NURSING PROGon 02-27-2023 NURSING PROG Normal [facility] PT EDon 02-27-2023 PT ED Normal [facility] Sodium SerPl-sCncon 02-28-20 23 Sodium [Moles/Vol] 132 mmol/L Low 136-144 [facility] Comment on above: Order Comment: Speci men Type: BLOOD SPECIMENOrdering Facility: [facility] Address: [address] [place] [address] Performed By: #### 2 951-2 ####[facility] LABCLIA [id number] [place] [address] [place] Sodium [Moles/Vol] 129 mmol/L Low 136-144 [facility] Comment on above: Order Comment: Speci men Type: BLOOD SPECIMENOrdering Facility: [facility] Address: [address] [place] [address] Performed By: #### 2 951-2 ####[facility]IA [id number] [place] [address] [place] [facility] Sodium [Moles/Vol] 128 mmol/L Low 136-144 [facility] Comment on above: Order Comment: Speci men Type: BLOOD SPECIMENOrdering Facility: [facility] Address: [address] [place] [address] Performed By: #### 2 951-2 ####[facility] [id number] [place] [address] [place] Tacrolimus Bld-mCncon 2022 Tacrolimus (Bld) [Mass/Vol] 8.5 ng/mL Normal 5.0-20.0 [facility] Comment on above: Order Comment: Speci men Type: BLOOD SPECIMENOrdering Facility: [facility] Address: [address] [place] [address] Result Comment: Nayely vidualized target levels for a given patient will depend on many factors (including the type of organ transplant, time since transplantation, concurrent medications, and other clinical factors), and should be assessed by those health care providers experienced in the management of immunosuppression. Reference ranges and high/low indicator flags are provided as general guidelines only. The treating physician must determine appropriate target levels/dosing based on the specific clinical situation. Test performed by chemiluminescent immunoassay using Cumulux Alinity i. Performed By: #### 1 1253-2 ####[facility]IA [id number] [place] [address] [place] Basic metabolic 2000 panelon 02-26-2023 Anion gap [Moles/Vol] 10 mmol/L Normal 9-18 [facility] Comment on above: Order Comment: Speci men Type: BLOOD SPECIMENOrdering Facility: [facility] Address: [address] Performed By: #### 2 4321-2 ####[facility]CLIA [id number] [place] [address] [place] Calcium [Mass/Vol] 10.0 mg/dL Normal 8.5-10.2 [facility] Comment on above: Order Comment: Speci men Type: BLOOD SPECIMENOrdering Facility: [facility] Address: [address] Performed By: #### 2 4321-2 ####[facility]CLIA [id number] [place] [address] [place] Chloride [Moles/Vol] 94 mmol/L Low 97-105 [facility] Comment on above: Order Comment: Speci men Type: BLOOD SPECIMENOrdering Facility: [facility] Address: [address] Performed By: #### 2 4321-2 ####[facility]CLIA [id number] [place] [address] [place] CO2 [Moles/Vol] 22 mmol/L Normal 22-30 [facility] Comment on above: Order Comment: Speci men Type: BLOOD SPECIMENOrdering Facility: [facility] Address: [address] [place] [address] Performed By: #### 2 4321-2 ####[facility]CLIA [id number] [place] [address] [place] Creatinine [Mass/Vol] 1.17 mg/dL Normal 0.73-1.22 [facility] Comment on above: Order Comment: Speci men Type: BLOOD SPECIMENOrdering Facility: [facility] Address: [address] Performed By: #### 2 4321-2 ####[facility] LABCLIA [id number] [address] OF [facility] ESTIMATED GLOMERULAR FILTRATION RATE 73 mL/min/1.73m??? Normal >=60 [facility] Comment on above: Order Comment: Specjose luis marin Type: BLOOD SPECIMENOrdering Facility: [facility] Address: [address] [address] Result Comment: Dayan mated Glomerular Filtration Rate (eGFR) is calculated using the 2020 CKD-EPI creatinine equation. This equation utilizes serum creatinine, sex, and age as parameters. The creatinine assay has traceable calibration to isotope dilution-mass spectrometry. Refer to KDIGO guidelines for clinical interpretation. In patients with unstable renal function, e.g. those with acute kidney injury, the eGFR may not accurately reflect actual GFR. Performed By: #### 2 4321-2 ####[facility] [id number] [address] OF [facility] Glucose [Mass/Vol] 113 mg/dL High 74-99 [facility] Comment on above: Order Comment: Iesha mairn Type: BLOOD SPECIMENOrdering Facility: [facility] Address: [address] [place] [address] Result Comment: The [place] Diabetes Association (ADA) provides guidance for cutoff values for fasting glucose and random glucose. The ADA defines fasting as no caloric intake for at least 8 hours. Fasting plasma glucose results between 100 to 125 mg/dL indicate increased risk for diabetes (prediabetes).Fasting plasma glucose results greater than or equal to 126 mg/dL meet the criteria for diagnosis of diabetes. In the absence of unequivocal hyperglycemia, results should be confirmed by repeat testing. In a patient with classic symptoms of hyperglycemia or hyperglycemic crisis, random plasma glucose results greater than or equal to 200 mg/dL meet the criteria for diagnosis of diabetes.Reference: Standards of Medical Care in Diabetes 2016, [place] [employer] Association. Diabetes Care. 2016.39(Suppl 1). Performed By: #### 2 4321-2 ####[facility] LABIA [id number] [place] [address] [place] Potassium [Moles/Vol] 4.5 mmol/L Normal 3.7-5.1 [facility] Comment on above: Order Comment: Speci men Type: BLOOD SPECIMENOrdering Facility: [facility] Address: [address] [place] [address] Performed By: #### 2 4321-2 ####[facility] LABCLIA [id number] [place] [address] [place] Sodium [Moles/Vol] 126 mmol/L Low 136-144 [facility] Comment on above: Order Comment: Speci men Type: BLOOD SPECIMENOrdering Facility: [facility] Address: [address] [place] [address] Performed By: #### 2 4321-2 ####[facility] LABCLIA [id number] [place] [address] [place] Urea nitrogen [Mass/Vol] 22 mg/dL Normal 9-24 [facility] Comment on above: Order Comment: Speci men Type: BLOOD SPECIMENOrdering Facility: [facility] Address: [address] [place] [address] Performed By: #### 2 4321-2 ####[facility] LABCLIA [id number] [place] [address] [place] CONSULT PROGon 02-26-2023 CONSULT PROG Normal [facility] ECG COMPLETEon 02-26-2023 ECG COMPLETE Normal [facility] Osmolality SerPlon 3 Osmolality [Osmolality] 269 mosm/kg Low 275-300 [facility] Comment on above: Order Comment: Speci men Type: BLOOD SPECIMENOrdering Facility: [facility] Address: [address] [place] [address] Performed By: #### 2 692-2 ####[facility] LABCLIA [id number] [place] [address] [place] Osmolality Uron 02-26-2023 Osmolality (U) [Osmolality] 320 mosm/kg Normal 50-1200 [facility] Comment on above: Order Comment: Speci men Type: URINE SPECIMENOrdering Facility: [facility] Address: [address] [place] [address] Performed By: #### 2 695-5 ####[facility] LABIA [id number] [place] [address] [place] Sodium ?Tm Ur-sCncon 023 Sodium Unsp time (U) [Moles/Vol] 21 mmol/L Normal 14-216 [facility] Comment on above: Order Comment: Speci men Type: URINE SPECIMENOrdering Facility: [facility] Address: [address] [place] [address] Performed By: #### 3 5678-2 ####[facility] LABIA [id number] [place] [address] [place] Sodium SerPl-sCncon 02-27-20 23 Sodium [Moles/Vol] 125 mmol/L Low 136-144 [facility] Comment on above: Order Comment: Speci men Type: BLOOD SPECIMENOrdering Facility: [facility] Address: [address] [place] [address] Performed By: #### 2 951-2 ####[facility] LABIA [id number] [place] [address] [place] Tacrolimus Bld-mCncon 2022 Tacrolimus (Bld) [Mass/Vol] 5.9 ng/mL Normal 5.0-20.0 [facility] Comment on above: Order Comment: Speci men Type: BLOOD SPECIMENOrdering Facility: [facility] Address: [address] [place] [address] Result Comment: Nayely vidualized target levels for a given patient will depend on many factors (including the type of organ transplant, time since transplantation, concurrent medications, and other clinical factors), and should be assessed by those health care providers experienced in the management of immunosuppression. Reference ranges and high/low indicator flags are provided as general guidelines only. The treating physician must determine appropriate target levels/dosing based on the specific clinical situation. Test performed by chemiluminescent immunoassay using Cumulux Alinity i. Performed By: #### 1 1253-2 ####[facility] LABCLIA [id number] [place] [address] [place] US LEG VEIN DVT GABE VAS LABo n 02-26-2023 US LEG VEIN DVT GABE VAS LAB Normal [facility] Basic metabolic 2000 panelon 02-25-2023 Anion gap [Moles/Vol] 11 mmol/L Normal 9-18 [facility] Comment on above: Order Comment: Speci men Type: BLOOD SPECIMENOrdering Facility: [facility] Address: [address] [place] [address] Performed By: #### 2 4321-2 ####[facility] LABCLIA [id number] [place] [address] [place] Calcium [Mass/Vol] 10.5 mg/dL High 8.5-10.2 [facility] Comment on above: Order Comment: Speci men Type: BLOOD SPECIMENOrdering Facility: [facility] Address: [address] [place] [address] Performed By: #### 2 4321-2 ####[facility] LABCLIA [id number] [place] [address] [place] Chloride [Moles/Vol] 95 mmol/L Low 97-105 [facility] Comment on above: Order Comment: Speci men Type: BLOOD SPECIMENOrdering Facility: [facility] Address: [address] Performed By: #### 2 4321-2 ####[facility] LABCLIA [id number] [place] [address] [place] CO2 [Moles/Vol] 23 mmol/L Normal 22-30 [facility] Comment on above: Order Comment: Speci men Type: BLOOD SPECIMENOrdering Facility: [facility] Address: [address] [address] Performed By: #### 2 4321-2 ####[facility] [id number] [address] [place] Creatinine [Mass/Vol] 1.28 mg/dL High 0.73-1.22 [facility] Comment on above: Order Comment: Speci men Type: BLOOD SPECIMENOrdering Facility: [facility] Address: [address] [address] Performed By: #### 2 4321-2 ####[facility] LABIA [id number] [place] [address] [place] ESTIMATED GLOMERULAR FILTRATION RATE 65 mL/min/1.73m??? Normal >=60 [facility] Comment on above: Order Comment: Speci men Type: BLOOD SPECIMENOrdering Facility: [facility] Address: [address] [address] Result Comment: Dayan mated Glomerular Filtration Rate (eGFR) is calculated using the 2020 CKD-EPI creatinine equation. This equation utilizes serum creatinine, sex, and age as parameters. The creatinine assay has traceable calibration to isotope dilution-mass spectrometry. Refer to KDIGO guidelines for clinical interpretation. In patients with unstable renal function, e.g. those with acute kidney injury, the eGFR may not accurately reflect actual GFR. Performed By: #### 2 4321-2 ####[facility] LABIA [id number] [place] [address] [place] Glucose [Mass/Vol] 119 mg/dL High 74-99 [facility] Comment on above: Order Comment: Speci men Type: BLOOD SPECIMENOrdering Facility: [facility] Address: [address] [place] [address] Result Comment: The [place] Diabetes Association (ADA) provides guidance for cutoff values for fasting glucose and random glucose. The ADA defines fasting as no caloric intake for at least 8 hours. Fasting plasma glucose results between 100 to 125 mg/dL indicate increased risk for diabetes (prediabetes).Fasting plasma glucose results greater than or equal to 126 mg/dL meet the criteria for diagnosis of diabetes. In the absence of unequivocal hyperglycemia, results should be confirmed by repeat testing. In a patient with classic symptoms of hyperglycemia or hyperglycemic crisis, random plasma glucose results greater than or equal to 200 mg/dL meet the criteria for diagnosis of diabetes.Reference: Standards of Medical Care in Diabetes 2016, [place] [employer]. Diabetes Care. 2016.39(Suppl 1). Performed By: #### 2 4321-2 ####[facility] LABCLIA [id number] [place] [address] [place] Potassium [Moles/Vol] 4.6 mmol/L Normal 3.7-5.1 [facility] Comment on above: Order Comment: Speci men Type: BLOOD SPECIMENOrdering Facility: [facility] Address: [address] [place] [address] Performed By: #### 2 4321-2 ####[facility] [id number] [place] [address] [place] Sodium [Moles/Vol] 129 mmol/L Low 136-144 [facility] Comment on above: Order Comment: Speci men Type: BLOOD SPECIMENOrdering Facility: [facility] Address: [address] [place] [address] Performed By: #### 2 4321-2 ####[facility] LABIA [id number] [place] [address] [place] Urea nitrogen [Mass/Vol] 22 mg/dL Normal 9-24 [facility] Comment on above: Order Comment: Speci men Type: BLOOD SPECIMENOrdering Facility: [facility] Address: [address] [place] [address] Performed By: #### 2 4321-2 ####[facility] LABIA [id number] [place] [address] [place] CONSULT PROGon 02-25-2023 CONSULT PROG Normal [facility] Tacrolimus Bld-mCncon 2022 Tacrolimus (Bld) [Mass/Vol] 5.1 ng/mL Normal 5.0-20.0 [facility] Comment on above: Order Comment: Iesha marin Type: BLOOD SPECIMENOrdering Facility: [facility] Address: [address] [place] [address] Result Comment: Nayely vidualized target levels for a given patient will depend on many factors (including the type of organ transplant, time since transplantation, concurrent medications, and other clinical factors), and should be assessed by those health care providers experienced in the management of immunosuppression. Reference ranges and high/low indicator flags are provided as general guidelines only. The treating physician must determine appropriate target levels/dosing based on the specific clinical situation. Test performed by chemiluminescent immunoassay using Cumulux Alinity i. Performed By: #### 1 1253-2 ####[facility] LABCLIA [id number] [place] [address] [place] Basic metabolic 2000 panelon 02-24-2023 Anion gap [Moles/Vol] 11 mmol/L Normal 9-18 [facility] Comment on above: Order Comment: Makaylai tania Type: BLOOD SPECIMENOrdering Facility: [facility] Address: [address] [id number] Performed By: #### 2 4321-2 ####[facility] LABCLIA [id number] [place] [address] [place] Calcium [Mass/Vol] 10.2 mg/dL Normal 8.5-10.2 [facility] Comment on above: Order Comment: Speci men Type: BLOOD SPECIMENOrdering Facility: [facility] Address: [address] [place] [address] Performed By: #### 2 4321-2 ####[facility] LABCLIA [id number] [place] [address] [place] Chloride [Moles/Vol] 99 mmol/L Normal 97-105 [facility] Comment on above: Order Comment: Speci men Type: BLOOD SPECIMENOrdering Facility: [facility] Address: [address] [address] Performed By: #### 2 4321-2 ####[facility] LABCLIA [id number] [place] [address] [place] CO2 [Moles/Vol] 22 mmol/L Normal 22-30 [facility] Comment on above: Order Comment: Speci men Type: BLOOD SPECIMENOrdering Facility: [facility] Address: [address] [address] Performed By: #### 2 4321-2 ####[facility] LABIA [id number] [place] [address] [place] Creatinine [Mass/Vol] 1.37 mg/dL High 0.73-1.22 [facility] Comment on above: Order Comment: Speci men Type: BLOOD SPECIMENOrdering Facility: [facility] Address: [address] [place] [address] Performed By: #### 2 4321-2 ####[facility] LABIA [id number] [place] [address] [place] ESTIMATED GLOMERULAR FILTRATION RATE 60 mL/min/1.73m??? Normal >=60 [facility] Comment on above: Order Comment: Speci men Type: BLOOD SPECIMENOrdering Facility: [facility] Address: [address] [place] [address] Result Comment: Dayan mated Glomerular Filtration Rate (eGFR) is calculated using the 2020 CKD-EPI creatinine equation. This equation utilizes serum creatinine, sex, and age as parameters. The creatinine assay has traceable calibration to isotope dilution-mass spectrometry. Refer to KDIGO guidelines for clinical interpretation. In patients with unstable renal function, e.g. those with acute kidney injury, the eGFR may not accurately reflect actual GFR. Performed By: #### 2 4321-2 ####[facility] LABCLIA [id number] [place] [address] [place] Glucose [Mass/Vol] 115 mg/dL High 74-99 [facility] Comment on above: Order Comment: Speci men Type: BLOOD SPECIMENOrdering Facility: [facility] Address: [address] [place] [address] Result Comment: The [place] Diabetes Association (ADA) provides guidance for cutoff values for fasting glucose and random glucose. The ADA defines fasting as no caloric intake for at least 8 hours. Fasting plasma glucose results between 100 to 125 mg/dL indicate increased risk for diabetes (prediabetes).Fasting plasma glucose results greater than or equal to 126 mg/dL meet the criteria for diagnosis of diabetes. In the absence of unequivocal hyperglycemia, results should be confirmed by repeat testing. In a patient with classic symptoms of hyperglycemia or hyperglycemic crisis, random plasma glucose results greater than or equal to 200 mg/dL meet the criteria for diagnosis of diabetes.Reference: Standards of Medical Care in Diabetes 2016, [place] Diabetes Association. Diabetes Care. 2016.39(Suppl 1). Performed By: #### 2 4321-2 ####[facility] LABCLIA [id number] [place] [address] [place] Potassium [Moles/Vol] 4.5 mmol/L Normal 3.7-5.1 [facility] Comment on above: Order Comment: Speci men Type: BLOOD SPECIMENOrdering Facility: [facility] Address: [address] [place] [address] Performed By: #### 2 4321-2 ####[facility] LABCLIA [id number] [place] [address] [place] Sodium [Moles/Vol] 132 mmol/L Low 136-144 [facility] Comment on above: Order Comment: Speci men Type: BLOOD SPECIMENOrdering Facility: [facility] Address: [address] [place] [address] Performed By: #### 2 4321-2 ####[facility] LABCLIA [id number] [place] [address] [place] Urea nitrogen [Mass/Vol] 21 mg/dL Normal 9-24 [facility] Comment on above: Order Comment: Speci men Type: BLOOD SPECIMENOrdering Facility: [facility] Address: [place] [address] Performed By: #### 2 4321-2 ####[facility] LABCLIA [id number] [place] [address] [place] CONSULT PROGon 02-24-2023 CONSULT PROG Normal [facility] Tacrolimus Bld-mCncon 2022 Tacrolimus (Bld) [Mass/Vol] 6.6 ng/mL Normal 5.0-20.0 [facility] Comment on above: Order Comment: Speci men Type: BLOOD SPECIMENOrdering Facility: [facility] Address: [address] [facility] [place] [id number] Result Comment: Nayely vidualized target levels for a given patient will depend on many factors (including the type of organ transplant, time since transplantation, concurrent medications, and other clinical factors), and should be assessed by those health care providers experienced in the management of immunosuppression. Reference ranges and high/low indicator flags are provided as general guidelines only. The treating physician must determine appropriate target levels/dosing based on the specific clinical situation. Test performed by chemiluminescent immunoassay using [employer] Alinity i. Performed By: #### 1 1253-2 ####[facility] LABIA [id number] [place] [address] [place] ALLIED HEALTHon 02-23-2023 ALLIED HEALTH Normal [facility] Basic metabolic 2000 panelon 02-23-2023 Anion gap [Moles/Vol] 10 mmol/L Normal 9-18 [facility] Comment on above: Order Comment: Speci men Type: BLOOD SPECIMENOrdering Facility: [facility] Address: [address] [id number] Performed By: #### 2 4321-2 ####[facility] LABIA [id number] [place] [address] [place] Calcium [Mass/Vol] 10.0 mg/dL Normal 8.5-10.2 [facility] Comment on above: Order Comment: Speci men Type: BLOOD SPECIMENOrdering Facility: [facility] Address: [address] [address] Performed By: #### 2 4321-2 ####[facility] LABCLIA [id number] [place] [address] [place] Chloride [Moles/Vol] 98 mmol/L Normal 97-105 [facility] Comment on above: Order Comment: Speci men Type: BLOOD SPECIMENOrdering Facility: [facility] Address: [address] [address] Performed By: #### 2 4321-2 ####[facility] LABCLIA [id number] [place] [address] [place] CO2 [Moles/Vol] 23 mmol/L Normal 22-30 [facility] Comment on above: Order Comment: Speci men Type: BLOOD SPECIMENOrdering Facility: [facility] Address: [address] Performed By: #### 2 4321-2 ####[facility] LABCLIA [id number] [place] [address] [place] Creatinine [Mass/Vol] 1.41 mg/dL High 0.73-1.22 [facility] Comment on above: Order Comment: Speci men Type: BLOOD SPECIMENOrdering Facility: [facility] Address: [address] Performed By: #### 2 4321-2 ####[facility] LABCLIA [id number] [place] [address] [place] ESTIMATED GLOMERULAR FILTRATION RATE 58 mL/min/1.73m??? Low >=60 [facility] Comment on above: Order Comment: Speci men Type: BLOOD SPECIMENOrdering Facility: [facility] Address: [address] Result Comment: Dayan mated Glomerular Filtration Rate (eGFR) is calculated using the 2020 CKD-EPI creatinine equation. This equation utilizes serum creatinine, sex, and age as parameters. The creatinine assay has traceable calibration to isotope dilution-mass spectrometry. Refer to KDIGO guidelines for clinical interpretation. In patients with unstable renal function, e.g. those with acute kidney injury, the eGFR may not accurately reflect actual GFR. Performed By: #### 2 4321-2 ####[facility] LABCLIA [id number] [place] [address] [place] Glucose [Mass/Vol] 120 mg/dL High 74-99 [facility] Comment on above: Order Comment: Iesha marin Type: BLOOD SPECIMENOrdering Facility: [facility] Address: [address] [address] Result Comment: The [place] Diabetes Association (ADA) provides guidance for cutoff values for fasting glucose and random glucose. The ADA defines fasting as no caloric intake for at least 8 hours. Fasting plasma glucose results between 100 to 125 mg/dL indicate increased risk for diabetes (prediabetes).Fasting plasma glucose results greater than or equal to 126 mg/dL meet the criteria for diagnosis of diabetes. In the absence of unequivocal hyperglycemia, results should be confirmed by repeat testing. In a patient with classic symptoms of hyperglycemia or hyperglycemic crisis, random plasma glucose results greater than or equal to 200 mg/dL meet the criteria for diagnosis of diabetes.Reference: Standards of Medical Care in Diabetes 2016, [place] [employer]. Diabetes Care. 2016.39(Suppl 1). Performed By: #### 2 4321-2 ####[facility] LABIA [id number] [place] [address] [place] Potassium [Moles/Vol] 4.2 mmol/L Normal 3.7-5.1 [facility] Comment on above: Order Comment: Iesha marin Type: BLOOD SPECIMENOrdering Facility: [facility] Address: [address] [id number] Performed By: #### 2 4321-2 ####[facility] LABIA [id number] [place] [address] [place] Sodium [Moles/Vol] 131 mmol/L Low 136-144 [facility] Comment on above: Order Comment: Speci men Type: BLOOD SPECIMENOrdering Facility: [facility] Address: [address] [place], [place] [address] Performed By: #### 2 4321-2 ####[facility] LABCLIA [id number] [place] [address] [place] Urea nitrogen [Mass/Vol] 18 mg/dL Normal 9-24 [facility] Comment on above: Order Comment: Speci men Type: BLOOD SPECIMENOrdering Facility: [facility] Address: [address] [place], [place] [address] Performed By: #### 2 4321-2 ####[facility] LABIA [id number] [place] [address] [place] CONSULT PROGon 02-23-2023 CONSULT PROG Normal [facility] NUTRITIONon 02-23-2023 NUTRITION Normal [facility] Osmolality SerPlon Osmolality [Osmolality] 282 mosm/kg Normal 275-300 [facility] Comment on above: Order Comment: Speci men Type: BLOOD SPECIMENOrdering Facility: [facility] Address: [address] [place] [address] Performed By: #### 2 692-2 ####[facility]CLIA [id number] [place] [address] [place] Osmolality Uron 02-23-2023 Osmolality (U) [Osmolality] 404 mosm/kg Normal 50-1200 [facility] Comment on above: Order Comment: Speci men Type: URINE SPECIMENOrdering Facility: [facility] Address: [address] [place], [place] [address] Performed By: #### 2 695-5 ####[facility] LABCLIA [id number] [place] [address] [place] Sodium ?Tm Ur-sCncon 023 Sodium Unsp time (U) [Moles/Vol] 29 mmol/L Normal 14-216 [facility] Comment on above: Order Comment: Speci men Type: URINE SPECIMENOrdering Facility: [facility] Address: [address] [place] [address] Performed By: #### 3 5678-2 ####[facility] LABCLIA [id number] [place] [address] [place] Sodium SerPl-sCncon 02-24-20 23 Sodium [Moles/Vol] 133 mmol/L Low 136-144 [facility] Comment on above: Order Comment: Speci men Type: BLOOD SPECIMENOrdering Facility: [facility] Address: [address] [place] [address] Performed By: #### 2 951-2 ####[facility] LABIA [id number] [place] [address] [place] Tacrolimus Bld-mCncon 2022 Tacrolimus (Bld) [Mass/Vol] 4.3 ng/mL Low 5.0-20.0 [facility] Comment on above: Order Comment: Speci men Type: BLOOD SPECIMENOrdering Facility: [facility] Address: [address] [place] [address] Result Comment: Nayely vidualized target levels for a given patient will depend on many factors (including the type of organ transplant, time since transplantation, concurrent medications, and other clinical factors), and should be assessed by those health care providers experienced in the management of immunosuppression. Reference ranges and high/low indicator flags are provided as general guidelines only. The treating physician must determine appropriate target levels/dosing based on the specific clinical situation. Test performed by chemiluminescent immunoassay using Winchester Alinity i. Performed By: #### 1 1253-2 ####[facility] LABCLIA [id number] [place] [address] [place] Urate SerPl-mCncon 3 Urate [Mass/Vol] 5.2 mg/dL Normal 4.0-8.1 [facility] Comment on above: Order Comment: Speci men Type: BLOOD SPECIMENOrdering Facility: [facility] Address: [address] Performed By: #### 3 084-1 ####[facility] LABCLIA [id number] [place] [address] [place] Basic metabolic 2000 panelon 02-22-2023 Anion gap [Moles/Vol] 9 mmol/L Normal 9-18 [facility] Comment on above: Order Comment: Speci men Type: BLOOD SPECIMENOrdering Facility: [facility] Address: [address] Performed By: #### 2 4321-2 ####[facility] LABCLIA [id number] [place] [address] [place] Calcium [Mass/Vol] 10.1 mg/dL Normal 8.5-10.2 [facility] Comment on above: Order Comment: Speci men Type: BLOOD SPECIMENOrdering Facility: [facility] Address: [address] Performed By: #### 2 4321-2 ####[facility] LABCLIA [id number] [place] [address] [place] Chloride [Moles/Vol] 102 mmol/L Normal 97-105 [facility] Comment on above: Order Comment: Speci men Type: BLOOD SPECIMENOrdering Facility: [facility] Address: [address] Performed By: #### 2 4321-2 ####[facility]CLIA [id number] [place] [address] [place] CO2 [Moles/Vol] 23 mmol/L Normal 22-30 [facility] Comment on above: Order Comment: Speci men Type: BLOOD SPECIMENOrdering Facility: [facility] Address: [address] Performed By: #### 2 4321-2 ####[facility] LABCLIA [id number] [place] [address] [place] Creatinine [Mass/Vol] 1.37 mg/dL High 0.73-1.22 [facility] Comment on above: Order Comment: Iesha marin Type: BLOOD SPECIMENOrdering Facility: [facility] Address: [address] [address] Performed By: #### 2 4321-2 ####[facility] LABIA [id number] [address] [place] ESTIMATED GLOMERULAR FILTRATION RATE 60 mL/min/1.73m??? Normal >=60 [facility] Comment on above: Order Comment: Iesha men Type: BLOOD SPECIMENOrdering Facility: [facility] Address: [address] [place] [address] Result Comment: Dayan mated Glomerular Filtration Rate (eGFR) is calculated using the 2020 CKD-EPI creatinine equation. This equation utilizes serum creatinine, sex, and age as parameters. The creatinine assay has traceable calibration to isotope dilution-mass spectrometry. Refer to KDIGO guidelines for clinical interpretation. In patients with unstable renal function, e.g. those with acute kidney injury, the eGFR may not accurately reflect actual GFR. Performed By: #### 2 4321-2 ####[facility] LABIA [id number] [place] [address] [place] Glucose [Mass/Vol] 112 mg/dL High 74-99 [facility] Comment on above: Order Comment: Speci tania Type: BLOOD SPECIMENOrdering Facility: [facility] Address: [address] [address] Result Comment: The [place] Diabetes Association (ADA) provides guidance for cutoff values for fasting glucose and random glucose. The ADA defines fasting as no caloric intake for at least 8 hours. Fasting plasma glucose results between 100 to 125 mg/dL indicate increased risk for diabetes (prediabetes).Fasting plasma glucose results greater than or equal to 126 mg/dL meet the criteria for diagnosis of diabetes. In the absence of unequivocal hyperglycemia, results should be confirmed by repeat testing. In a patient with classic symptoms of hyperglycemia or hyperglycemic crisis, random plasma glucose results greater than or equal to 200 mg/dL meet the criteria for diagnosis of diabetes.Reference: Standards of Medical Care in Diabetes 2016, [place] [employer]. Diabetes Care. 2016.39(Suppl 1). Performed By: #### 2 4321-2 ####[facility]CLIA [id number] [place] [address] [place] Potassium [Moles/Vol] 4.7 mmol/L Normal 3.7-5.1 [facility] Comment on above: Order Comment: Speci men Type: BLOOD SPECIMENOrdering Facility: [facility] Address: [address] [place] [address] Performed By: #### 2 4321-2 ####[facility] LABIA [id number] [place] [address] [place] Sodium [Moles/Vol] 134 mmol/L Low 136-144 [facility] Comment on above: Order Comment: Speci men Type: BLOOD SPECIMENOrdering Facility: [facility] Address: [address] [place] [address] Performed By: #### 2 4321-2 ####[facility] LABCLIA [id number] [place] [address] [place] Urea nitrogen [Mass/Vol] 16 mg/dL Normal 9-24 [facility] Comment on above: Order Comment: Speci men Type: BLOOD SPECIMENOrdering Facility: [facility] Address: [address] [address] Performed By: #### 2 4321-2 ####[facility]CLIA [id number] [place] [address] [place] CONSULT PROGon 02-22-2023 CONSULT PROG Normal [facility] NURSING PROGon 02-22-2023 NURSING PROG Normal [facility] Tacrolimus Bld-mCncon 2022 Tacrolimus (Bld) [Mass/Vol] 6.5 ng/mL Normal 5.0-20.0 [facility] Comment on above: Order Comment: Iesha marin Type: BLOOD SPECIMENOrdering Facility: [facility] Address: [address] [id number] Result Comment: Nayely vidualized target levels for a given patient will depend on many factors (including the type of organ transplant, time since transplantation, concurrent medications, and other clinical factors), and should be assessed by those health care providers experienced in the management of immunosuppression. Reference ranges and high/low indicator flags are provided as general guidelines only. The treating physician must determine appropriate target levels/dosing based on the specific clinical situation. Test performed by chemiluminescent immunoassay using Cumulux Alinity i. Performed By: #### 1 1253-2 ####[facility]CLIA [id number] [place] [address] [place] Basic metabolic 2000 panelon 02-21-2023 Anion gap [Moles/Vol] 11 mmol/L Normal 9-18 [facility] Comment on above: Order Comment: Iesha marin Type: BLOOD SPECIMENOrdering Facility: [facility] Address: [address] [place], [place] [address] Performed By: #### 2 4321-2 ####[facility]CLIA [id number] [place] [address] [place] Calcium [Mass/Vol] 9.9 mg/dL Normal 8.5-10.2 [facility] Comment on above: Order Comment: Speci men Type: BLOOD SPECIMENOrdering Facility: [facility] Address: [address] [place] [address] Performed By: #### 2 4321-2 ####[facility] LABCLIA [id number] [place] [address] [place] Chloride [Moles/Vol] 100 mmol/L Normal 97-105 [facility] Comment on above: Order Comment: Speci men Type: BLOOD SPECIMENOrdering Facility: [facility] Address: [address] [address] Performed By: #### 2 4321-2 ####[facility] LABCLIA [id number] [place] [address] [place] CO2 [Moles/Vol] 24 mmol/L Normal 22-30 [facility] Comment on above: Order Comment: Speci men Type: BLOOD SPECIMENOrdering Facility: [facility] Address: [address] [address] Performed By: #### 2 4321-2 ####[facility] LABIA [id number] [place] [address] [place] Creatinine [Mass/Vol] 1.44 mg/dL High 0.73-1.22 [facility] Comment on above: Order Comment: Speci men Type: BLOOD SPECIMENOrdering Facility: [facility] Address: [address] [place] [address] Performed By: #### 2 4321-2 ####[facility] LABIA [id number] [place] [address] [place] ESTIMATED GLOMERULAR FILTRATION RATE 57 mL/min/1.73m??? Low >=60 [facility] Comment on above: Order Comment: Speci men Type: BLOOD SPECIMENOrdering Facility: [facility] Address: [address] [place] [address] Result Comment: Dayan mated Glomerular Filtration Rate (eGFR) is calculated using the 2020 CKD-EPI creatinine equation. This equation utilizes serum creatinine, sex, and age as parameters. The creatinine assay has traceable calibration to isotope dilution-mass spectrometry. Refer to KDIGO guidelines for clinical interpretation. In patients with unstable renal function, e.g. those with acute kidney injury, the eGFR may not accurately reflect actual GFR. Performed By: #### 2 4321-2 ####[facility] LABCLIA [id number] [place] [address] [place] Glucose [Mass/Vol] 99 mg/dL Normal 74-99 [facility] Comment on above: Order Comment: Speci men Type: BLOOD SPECIMENOrdering Facility: [facility] Address: [address] [place] [address] Result Comment: The [place] Diabetes Association (ADA) provides guidance for cutoff values for fasting glucose and random glucose. The ADA defines fasting as no caloric intake for at least 8 hours. Fasting plasma glucose results between 100 to 125 mg/dL indicate increased risk for diabetes (prediabetes).Fasting plasma glucose results greater than or equal to 126 mg/dL meet the criteria for diagnosis of diabetes. In the absence of unequivocal hyperglycemia, results should be confirmed by repeat testing. In a patient with classic symptoms of hyperglycemia or hyperglycemic crisis, random plasma glucose results greater than or equal to 200 mg/dL meet the criteria for diagnosis of diabetes.Reference: Standards of Medical Care in Diabetes 2016, [place] [employer]. Diabetes Care. 2016.39(Suppl 1). Performed By: #### 2 4321-2 ####[facility] LABCLIA [id number] [place] [address] [place] Potassium [Moles/Vol] 3.9 mmol/L Normal 3.7-5.1 [facility] Comment on above: Order Comment: Speci men Type: BLOOD SPECIMENOrdering Facility: [facility] Address: [address] [place] [address] Performed By: #### 2 4321-2 ####[facility] LABCLIA [id number] [place] [address] [place] Sodium [Moles/Vol] 135 mmol/L Low 136-144 [facility] Comment on above: Order Comment: Speci men Type: BLOOD SPECIMENOrdering Facility: [facility] Address: [address] [address] Performed By: #### 2 4321-2 ####[facility] LABCLIA [id number] [place] [address] [place] Urea nitrogen [Mass/Vol] 15 mg/dL Normal 9-24 [facility] Comment on above: Order Comment: Speci men Type: BLOOD SPECIMENOrdering Facility: [facility] Address: [address] [place] [address] Performed By: #### 2 4321-2 ####[facility] LABIA [id number] [place] [address] [place] CONSULT PROGon 02-21-2023 CONSULT PROG Normal [facility] CONSULT PROG Normal [facility] Tacrolimus Bld-mCncon 2022 Tacrolimus (Bld) [Mass/Vol] 5.3 ng/mL Normal 5.0-20.0 [facility] Comment on above: Order Comment: Speci men Type: BLOOD SPECIMENOrdering Facility: [facility] Address: [address] [place] [address] Result Comment: Nayely vidualized target levels for a given patient will depend on many factors (including the type of organ transplant, time since transplantation, concurrent medications, and other clinical factors), and should be assessed by those health care providers experienced in the management of immunosuppression. Reference ranges and high/low indicator flags are provided as general guidelines only. The treating physician must determine appropriate target levels/dosing based on the specific clinical situation. Test performed by chemiluminescent immunoassay using Winche[employer] Alinity i. Performed By: #### 1 1253-2 ####[facility] LABIA [id number] [place] [address] [place] Basic metabolic 2000 panelon 02-20-2023 Anion gap [Moles/Vol] 12 mmol/L Normal 9-18 [facility] Comment on above: Order Comment: Speci men Type: BLOOD SPECIMENOrdering Facility: [facility] Address: [address] [place] [address] Performed By: #### 2 4321-2 ####[facility] LABIA [id number] [place] [address] [place] Calcium [Mass/Vol] 9.7 mg/dL Normal 8.5-10.2 [facility] Comment on above: Order Comment: Speci men Type: BLOOD SPECIMENOrdering Facility: [facility] Address: [address] [address] Performed By: #### 2 4321-2 ####[facility] LABCLIA [id number] [place] [address] [place] Chloride [Moles/Vol] 103 mmol/L Normal 97-105 [facility] Comment on above: Order Comment: Speci men Type: BLOOD SPECIMENOrdering Facility: [facility] Address: [address] [address] Performed By: #### 2 4321-2 ####[facility] LABCLIA [id number] [place] [address] [place] CO2 [Moles/Vol] 23 mmol/L Normal 22-30 [facility] Comment on above: Order Comment: Speci men Type: BLOOD SPECIMENOrdering Facility: [facility] Address: [address] [place] [address] Performed By: #### 2 4321-2 ####[facility] LABIA [id number] [place] [address] [place] Creatinine [Mass/Vol] 1.40 mg/dL High 0.73-1.22 [facility] Comment on above: Order Comment: Speci men Type: BLOOD SPECIMENOrdering Facility: [facility] Address: [address] [place] [address] Performed By: #### 2 4321-2 ####[facility] LABCLIA [id number] [place] [address] [place] ESTIMATED GLOMERULAR FILTRATION RATE 59 mL/min/1.73m??? Low >=60 [facility] Comment on above: Order Comment: Speci men Type: BLOOD SPECIMENOrdering Facility: [facility] Address: [address] [place] [address] Result Comment: Dayan mated Glomerular Filtration Rate (eGFR) is calculated using the 2020 CKD-EPI creatinine equation. This equation utilizes serum creatinine, sex, and age as parameters. The creatinine assay has traceable calibration to isotope dilution-mass spectrometry. Refer to KDIGO guidelines for clinical interpretation. In patients with unstable renal function, e.g. those with acute kidney injury, the eGFR may not accurately reflect actual GFR. Performed By: #### 2 4321-2 ####[facility] LABCLIA [id number] [place] [address] [place] Glucose [Mass/Vol] 129 mg/dL High 74-99 [facility] Comment on above: Order Comment: Specjose luis marin Type: BLOOD SPECIMENOrdering Facility: [facility] Address: [address] [id number] Result Comment: The [place] Diabetes Association (ADA) provides guidance for cutoff values for fasting glucose and random glucose. The ADA defines fasting as no caloric intake for at least 8 hours. Fasting plasma glucose results between 100 to 125 mg/dL indicate increased risk for diabetes (prediabetes).Fasting plasma glucose results greater than or equal to 126 mg/dL meet the criteria for diagnosis of diabetes. In the absence of unequivocal hyperglycemia, results should be confirmed by repeat testing. In a patient with classic symptoms of hyperglycemia or hyperglycemic crisis, random plasma glucose results greater than or equal to 200 mg/dL meet the criteria for diagnosis of diabetes.Reference: Standards of Medical Care in Diabetes 2016, [place] [employer]. Diabetes Care. 2016.39(Suppl 1). Performed By: #### 2 4321-2 ####[facility] LABCLIA [id number] [place] [address] [place] Potassium [Moles/Vol] 3.9 mmol/L Normal 3.7-5.1 [facility] Comment on above: Order Comment: Specjose luis marin Type: BLOOD SPECIMENOrdering Facility: [facility] Address: [address] [place] [address] Performed By: #### 2 4321-2 ####[facility] LABCLIA [id number] [place] [id number] [place] Sodium [Moles/Vol] 138 mmol/L Normal 136-144 [facility] Comment on above: Order Comment: Speci men Type: BLOOD SPECIMENOrdering Facility: [facility] Address: [address] [address] Performed By: #### 2 4321-2 ####[facility] LABCLIA [id number] [place] [address] [place] Urea nitrogen [Mass/Vol] 13 mg/dL Normal 9-24 [facility] Comment on above: Order Comment: Speci men Type: BLOOD SPECIMENOrdering Facility: [facility] Address: [address] [address] Performed By: #### 2 4321-2 ####[facility] [id number] [place] [address] [place] CONSULT PROGon 02-20-2023 CONSULT PROG Normal [facility] Tacrolimus Bld-mCncon 2022 Tacrolimus (Bld) [Mass/Vol] 5.6 ng/mL Normal 5.0-20.0 [facility] Comment on above: Order Comment: Speci men Type: BLOOD SPECIMENOrdering Facility: [facility] Address: [address] [place] [address] Result Comment: Nayely vidualized target levels for a given patient will depend on many factors (including the type of organ transplant, time since transplantation, concurrent medications, and other clinical factors), and should be assessed by those health care providers experienced in the management of immunosuppression. Reference ranges and high/low indicator flags are provided as general guidelines only. The treating physician must determine appropriate target levels/dosing based on the specific clinical situation. Test performed by chemiluminescent immunoassay using W[employer] Alinity i. Performed By: #### 1 1253-2 ####[facility] LABIA [id number] [place] [address] [place] Basic metabolic 2000 panelon 02-19-2023 Anion gap [Moles/Vol] 9 mmol/L Normal 9-18 [facility] Comment on above: Order Comment: Speci men Type: BLOOD SPECIMENOrdering Facility: [facility] Address: [address] [address] Performed By: #### 2 4321-2 ####[facility] LABCLIA [id number] [place] [address] [place] Calcium [Mass/Vol] 9.6 mg/dL Normal 8.5-10.2 [facility] Comment on above: Order Comment: Speci men Type: BLOOD SPECIMENOrdering Facility: [facility] Address: [address] [address] Performed By: #### 2 4321-2 ####[facility] LABCLIA [id number] [place] [address] [place] Chloride [Moles/Vol] 104 mmol/L Normal 97-105 [facility] Comment on above: Order Comment: Speci men Type: BLOOD SPECIMENOrdering Facility: [facility] Address: [address] [address] Performed By: #### 2 4321-2 ####[facility] LABCLIA [id number] [place] [address] [place] CO2 [Moles/Vol] 26 mmol/L Normal 22-30 [facility] Comment on above: Order Comment: Speci men Type: BLOOD SPECIMENOrdering Facility: [facility] Address: [address] Performed By: #### 2 4321-2 ####[facility] LABCLIA [id number] [place] [address] [place] Creatinine [Mass/Vol] 1.64 mg/dL High 0.73-1.22 [facility] Comment on above: Order Comment: Speci men Type: BLOOD SPECIMENOrdering Facility: [facility] Address: [address] [address] Performed By: #### 2 4321-2 ####[facility]CLIA [id number] [place] [address] [place] ESTIMATED GLOMERULAR FILTRATION RATE 48 mL/min/1.73m??? Low >=60 [facility] Comment on above: Order Comment: Iesha marin Type: BLOOD SPECIMENOrdering Facility: [facility] Address: [address] [address] Result Comment: Dayan mated Glomerular Filtration Rate (eGFR) is calculated using the 2020 CKD-EPI creatinine equation. This equation utilizes serum creatinine, sex, and age as parameters. The creatinine assay has traceable calibration to isotope dilution-mass spectrometry. Refer to KDIGO guidelines for clinical interpretation. In patients with unstable renal function, e.g. those with acute kidney injury, the eGFR may not accurately reflect actual GFR. Performed By: #### 2 4321-2 ####[facility] LABCLIA [id number] [place] [address] [place] Glucose [Mass/Vol] 137 mg/dL High 74-99 [facility] Comment on above: Order Comment: Iesha marin Type: BLOOD SPECIMENOrdering Facility: [facility] Address: [address] [place] [address] Result Comment: The [place] Diabetes Association (ADA) provides guidance for cutoff values for fasting glucose and random glucose. The ADA defines fasting as no caloric intake for at least 8 hours. Fasting plasma glucose results between 100 to 125 mg/dL indicate increased risk for diabetes (prediabetes).Fasting plasma glucose results greater than or equal to 126 mg/dL meet the criteria for diagnosis of diabetes. In the absence of unequivocal hyperglycemia, results should be confirmed by repeat testing. In a patient with classic symptoms of hyperglycemia or hyperglycemic crisis, random plasma glucose results greater than or equal to 200 mg/dL meet the criteria for diagnosis of diabetes.Reference: Standards of Medical Care in Diabetes 2016, [place] [employer]. Diabetes Care. 2016.39(Suppl 1). Performed By: #### 2 4321-2 ####[facility] LABCLIA [id number] [place] [address] [place] Potassium [Moles/Vol] 3.8 mmol/L Normal 3.7-5.1 [facility] Comment on above: Order Comment: Speci men Type: BLOOD SPECIMENOrdering Facility: [facility] Address: [address] [address] Performed By: #### 2 4321-2 ####[facility] LABCLIA [id number] [place] [address] [place] Sodium [Moles/Vol] 139 mmol/L Normal 136-144 [facility] Comment on above: Order Comment: Speci men Type: BLOOD SPECIMENOrdering Facility: [facility] Address: [address] [address] Performed By: #### 2 4321-2 ####[facility] LABCLIA [id number] [place] [address] [place] Urea nitrogen [Mass/Vol] 14 mg/dL Normal 9-24 [facility] Comment on above: Order Comment: Speci men Type: BLOOD SPECIMENOrdering Facility: [facility] Address: [address] [address] Performed By: #### 2 4321-2 ####[facility] LABIA [id number] [place] [address] [place] CONSULT PROGon 02-19-2023 CONSULT PROG Normal [facility] Tacrolimus Bld-mCncon 2022 Tacrolimus (Bld) [Mass/Vol] 4.0 ng/mL Low 5.0-20.0 [facility] Comment on above: Order Comment: Speci men Type: BLOOD SPECIMENOrdering Facility: [facility] Address: [address] [place] [address] Result Comment: Nayely vidualized target levels for a given patient will depend on many factors (including the type of organ transplant, time since transplantation, concurrent medications, and other clinical factors), and should be assessed by those health care providers experienced in the management of immunosuppression. Reference ranges and high/low indicator flags are provided as general guidelines only. The treating physician must determine appropriate target levels/dosing based on the specific clinical situation. Test performed by chemiluminescent immunoassay using Cumulux Alinity i. Performed By: #### 1 1253-2 ####[facility] LABCLIA [id number] [place] [address] [place] Basic metabolic 2000 panelon 02-18-2023 Anion gap [Moles/Vol] 9 mmol/L Normal 9-18 [facility] Comment on above: Order Comment: Speci men Type: BLOOD SPECIMENOrdering Facility: [facility] Address: [address] Performed By: #### 2 4321-2 ####[facility] LABIA [id number] [place] [address] [place] Calcium [Mass/Vol] 9.3 mg/dL Normal 8.5-10.2 [facility] Comment on above: Order Comment: Speci men Type: BLOOD SPECIMENOrdering Facility: [facility] Address: [address] [address] Performed By: #### 2 4321-2 ####[facility] LABIA [id number] [place] [address] [place] Chloride [Moles/Vol] 108 mmol/L High 97-105 [facility] Comment on above: Order Comment: Speci men Type: BLOOD SPECIMENOrdering Facility: [facility] Address: [address] Performed By: #### 2 4321-2 ####[facility] LABIA [id number] [place] [address] [place] CO2 [Moles/Vol] 23 mmol/L Normal 22-30 [facility] Comment on above: Order Comment: Speci men Type: BLOOD SPECIMENOrdering Facility: [facility] Address: [address] Performed By: #### 2 4321-2 ####[facility] LABIA [id number] [place] OF [facility] Creatinine [Mass/Vol] 1.59 mg/dL High 0.73-1.22 [facility] Comment on above: Order Comment: Iesha marin Type: BLOOD SPECIMENOrdering Facility: [facility] Address: [address] [address] Performed By: #### 2 4321-2 ####[facility] LABCLIA [id number] [address] OF [facility] ESTIMATED GLOMERULAR FILTRATION RATE 50 mL/min/1.73m??? Low >=60 [facility] Comment on above: Order Comment: Iesha marin Type: BLOOD SPECIMENOrdering Facility: [facility] Address: [address] [address] Result Comment: Dayan mated Glomerular Filtration Rate (eGFR) is calculated using the 2020 CKD-EPI creatinine equation. This equation utilizes serum creatinine, sex, and age as parameters. The creatinine assay has traceable calibration to isotope dilution-mass spectrometry. Refer to KDIGO guidelines for clinical interpretation. In patients with unstable renal function, e.g. those with acute kidney injury, the eGFR may not accurately reflect actual GFR. Performed By: #### 2 4321-2 ####[facility] LABCLIA [id number] [place] [address] [place] Glucose [Mass/Vol] 98 mg/dL Normal 74-99 [facility] Comment on above: Order Comment: Iesha marin Type: BLOOD SPECIMENOrdering Facility: [facility] Address: [address] [address] Result Comment: The [place] Diabetes Association (ADA) provides guidance for cutoff values for fasting glucose and random glucose. The ADA defines fasting as no caloric intake for at least 8 hours. Fasting plasma glucose results between 100 to 125 mg/dL indicate increased risk for diabetes (prediabetes).Fasting plasma glucose results greater than or equal to 126 mg/dL meet the criteria for diagnosis of diabetes. In the absence of unequivocal hyperglycemia, results should be confirmed by repeat testing. In a patient with classic symptoms of hyperglycemia or hyperglycemic crisis, random plasma glucose results greater than or equal to 200 mg/dL meet the criteria for diagnosis of diabetes.Reference: Standards of Medical Care in Diabetes 2016, [place] [employer]. Diabetes Care. 2016.39(Suppl 1). Performed By: #### 2 4321-2 ####[facility] LABCLIA [id number] [place] [address] [place] Potassium [Moles/Vol] 4.4 mmol/L Normal 3.7-5.1 [facility] Comment on above: Order Comment: Speci men Type: BLOOD SPECIMENOrdering Facility: [facility] Address: [address] [address] Performed By: #### 2 4321-2 ####[facility] LABIA [id number] [place] [address] [place] Sodium [Moles/Vol] 140 mmol/L Normal 136-144 [facility] Comment on above: Order Comment: Speci men Type: BLOOD SPECIMENOrdering Facility: [facility] Address: [address] [address] Performed By: #### 2 4321-2 ####[facility] LABIA [id number] [place] [address] [place] Urea nitrogen [Mass/Vol] 13 mg/dL Normal 9-24 [facility] Comment on above: Order Comment: Speci men Type: BLOOD SPECIMENOrdering Facility: [facility] Address: [address] Performed By: #### 2 4321-2 ####[facility] LABIA [id number] [place] [address] [place] CASE MGT INIT ASSESon 2022 CASE MGT INIT ASSES Normal [facility] CONSULT PROGon 02-18-2023 CONSULT PROG Normal [facility] LACOSAMIDEon 02-18-2023 DESMETHYLLACOSAMIDE 2.4 ug/mL Normal <2.6 [facility] Comment on above: Order Comment: Speci men Type: BLOOD SPECIMENOrdering Facility: [facility] Address: [address] [place] [address] Result Comment: Expe cted concentration of patients receiving 200-400 mg/day is up to 2.5 ug/mL for Desmethyllacosamide.This test was developed and its performance characteristics determined by [facility] and [facility] [place] ([facility]). It has not been cleared or approved by the FDA. -[facility] is regulated under CLIA as qualified to perform high-complexity testing. This test is used for clinical purposes. It should not be regarded as investigational or for research. Performed By: #### L ACOS ####[facility] LABCLIA [id number] [place] [address] [place] Lacosamide [Mass/Vol] 6.8 ug/mL Normal 2.2-19.8 [facility] Comment on above: Order Comment: Speci men Type: BLOOD SPECIMENOrdering Facility: [facility] Address: [address] [place] [address] Result Comment: Expe cted concentration of patients receiving 200-400 mg/day is 2.2-19.8 ug/mL for Lacosamide.This test was developed and its performance characteristics determined by [facility] and [facility] [place] ([facility]). It has not been cleared or approved by the FDA. [facility] is regulated under CLIA as qualified to perform high-complexity testing. This test is used for clinical purposes. It should not be regarded as investigational or for research. Performed By: #### L ACOS ####[facility] LABCLIA [id number] [place] [address] [place] Tacrolimus Bld-mCncon 2022 Tacrolimus (Bld) [Mass/Vol] 4.8 ng/mL Low 5.0-20.0 [facility] Comment on above: Order Comment: Speci men Type: BLOOD SPECIMENOrdering Facility: [facility] Address: [address] [place] [address] Result Comment: Nayely vidualized target levels for a given patient will depend on many factors (including the type of organ transplant, time since transplantation, concurrent medications, and other clinical factors), and should be assessed by those health care providers experienced in the management of immunosuppression. Reference ranges and high/low indicator flags are provided as general guidelines only. The treating physician must determine appropriate target levels/dosing based on the specific clinical situation. Test performed by chemiluminescent immunoassay using Cumulux Alinity i. Performed By: #### 1 1253-2 ####[facility] LABCLIA [id number] [place] [address] [place] lamoTRIgine SerPl-mCncon lamoTRIgine [Mass/Vol] 6.8 ug/mL Normal 1.0-13.0 [facility] Comment on above: Order Comment: Speci men Type: BLOOD SPECIMENOrdering Facility: [facility] Address: [address] [place] [address] Result Comment: This test was developed and its performance characteristics determined by [facility]'s José Miguel [facility] and [facility] [place] ([facility]). It has not been cleared or approved by the FDA. [facility] is regulated under CLIA as qualified to perform high-complexity testing. This test is used for clinical purposes. It should not be regarded as investigational or for research. Performed By: #### 6 948-4 ####[facility] LABCLIA [id number] [place] [address] [place] ANES POSTPROC EVALon 023 ANES POSTPROC EVAL Normal [facility] ANES PRE-OPon 02-17-2023 ANES PRE-OP Normal [facility] BRIEF OP NOTon 02-17-2023 BRIEF OP NOT Normal [facility] CONSULTon 02-17-2023 CONSULT Normal [facility] CT BRAIN WO IVCONon 02-18-20 CT BRAIN WO IVCON Normal [facility] OPERATIVE NOon 02-17-2023 OPERATIVE NO Normal [facility] Tacrolimus Bld-mCncon 2022 Tacrolimus (Bld) [Mass/Vol] 5.2 ng/mL Normal 5.0-20.0 [facility] Comment on above: Order Comment: Iesha marin Type: BLOOD SPECIMENOrdering Facility: [facility] Address: [address] [place] [address] Result Comment: Nayely vidualized target levels for a given patient will depend on many factors (including the type of organ transplant, time since transplantation, concurrent medications, and other clinical factors), and should be assessed by those health care providers experienced in the management of immunosuppression. Reference ranges and high/low indicator flags are provided as general guidelines only. The treating physician must determine appropriate target levels/dosing based on the specific clinical situation. Test performed by chemiluminescent immunoassay using Cumulux Alinity i. Performed By: #### 1 1253-2 ####[facility] LABIA [id number] [place] [address] [place] XR SKULL 1 VIEWon 02-17-2023 XR SKULL 1 VIEW Normal [facility] CBC panel Auto (Bld)on 02-08 Erythrocyte distribution width (RBC) [Ratio] 12.6 % Normal 11.5-15.0 [facility] Comment on above: Order Comment: Iesha marin Type: BLOOD SPECIMENOrdering Facility: [facility] Address: [address] [place] [address] Performed By: #### 5 8410-2 ####[facility] LABCLIA [id number] [address] [place] Hematocrit (Bld) [Volume fraction] 45.5 % Normal 39.0-51.0 [facility] Comment on above: Order Comment: Iesha marin Type: BLOOD SPECIMENOrdering Facility: [facility] Address: [address] [place] [address] Performed By: #### 5 8410-2 ####[facility] LABCLIA [id number] [address] [address] [place] Hemoglobin (Bld) [Mass/Vol] 14.4 g/dL Normal 13.0-17.0 [facility] Comment on above: Order Comment: Speci men Type: BLOOD SPECIMENOrdering Facility: [facility] Address: [address] [place] [address] Performed By: #### 5 8410-2 ####[facility] LABCLIA [id number] [address] [place] MCH (RBC) [Entitic mass] 30.8 pg Normal 26.0-34.0 [facility] Comment on above: Order Comment: Speci men Type: BLOOD SPECIMENOrdering Facility: [facility] Address: [address] [place] [address] Performed By: #### 5 8410-2 ####[facility] LABCLIA [id number] [address] [place] MCHC (RBC) [Mass/Vol] 31.6 g/dL Normal 30.5-36.0 [facility] Comment on above: Order Comment: Speci men Type: BLOOD SPECIMENOrdering Facility: [facility] Address: [address] [place], [place] [address] Performed By: #### 5 8410-2 ####[facility] LABCLIA [id number] [place] [address] [place] MCV (RBC) [Entitic vol] 97.2 fL Normal 80.0-100.0 [facility] Comment on above: Order Comment: Speci men Type: BLOOD SPECIMENOrdering Facility: [facility] Address: [address] [place], [place] [address] Performed By: #### 5 8410-2 ####[facility] LABCLIA [id number] [address] [place] Nucleated RBC (Bld) [#/Vol] 10*3/uL Normal <0.01 [facility] Comment on above: Order Comment: Speci men Type: BLOOD SPECIMENOrdering Facility: [facility] Address: [address] [place], [place] [address] Performed By: #### 5 8410-2 ####[facility] LABIA [id number] [place] [address] [place] Platelet mean volume (Bld) [Entitic vol] 9.9 fL Normal 9.0-12.7 [facility] Comment on above: Order Comment: Speci men Type: BLOOD SPECIMENOrdering Facility: [facility] Address: [address] [place], [place] [address] Performed By: #### 5 8410-2 ####[facility] LABIA [id number] [place] [address] [place] Platelets (Bld) [#/Vol] 251 10*3/uL Normal 150-400 [facility] Comment on above: Order Comment: Speci men Type: BLOOD SPECIMENOrdering Facility: [facility] Address: [address] [place], [place] [address] Performed By: #### 5 8410-2 ####[facility] LABIA [id number] [place] [address] [place] RBC (Bld) [#/Vol] 4.68 10*6/uL Normal 4.20-6.00 [facility] Comment on above: Order Comment: Speci men Type: BLOOD SPECIMENOrdering Facility: [facility] Address: [address] [place], [place] [address] Performed By: #### 5 8410-2 ####[facility] LABIA [id number] [place] [address] [place] WBC (Bld) [#/Vol] 7.19 10*3/uL Normal 3.70-11.00 [facility] Comment on above: Order Comment: Speci men Type: BLOOD SPECIMENOrdering Facility: [facility] Address: [address] [place], [place] [address] Performed By: #### 5 8410-2 ####[facility] LABCLIA [id number] [place] [address] [place] CNNURSEon 02-08-2023 CNNURSE Normal [facility] CNOVon 02-08-2023 CNOV Normal [facility] CTA HEAD W IVCONon CTA HEAD W IVCON Normal [facility] Comprehensive metabolic 2000 panelon 02-08-2023 Albumin [Mass/Vol] 3.8 g/dL Low 3.9-4.9 [facility] Comment on above: Order Comment: Speci men Type: BLOOD SPECIMENOrdering Facility: [facility] Address: [address] [place] [address] Performed By: #### 2 4323-8 ####[facility] LABCLIA [id number] [place] [address] [place] ALP [Catalytic activity/Vol] 76 U/L Normal 38-113 [facility] Comment on above: Order Comment: Speci men Type: BLOOD SPECIMENOrdering Facility: [facility] Address: [address] [place] [address] Performed By: #### 2 4323-8 ####[facility] LABCLIA [id number] [place] [address] [place] ALT [Catalytic activity/Vol] 14 U/L Normal 10-54 [facility] Comment on above: Order Comment: Speci men Type: BLOOD SPECIMENOrdering Facility: [facility] Address: [address] [place] [address] Performed By: #### 2 4323-8 ####[facility] LABCLIA [id number] [place] [address] [place] Anion gap [Moles/Vol] 10 mmol/L Normal 9-18 [facility] Comment on above: Order Comment: Speci men Type: BLOOD SPECIMENOrdering Facility: [facility] Address: [address] [place] Performed By: #### 2 4323-8 ####[facility] LABCLIA [id number] [place] [address] [place] AST [Catalytic activity/Vol] 17 U/L Normal 14-40 [facility] Comment on above: Order Comment: Speci men Type: BLOOD SPECIMENOrdering Facility: [facility] Address: [address] Performed By: #### 2 4323-8 ####[facility] LABCLIA [id number] [place] [address] [place] Bilirubin [Mass/Vol] 0.4 mg/dL Normal 0.2-1.3 [facility] Comment on above: Order Comment: Speci men Type: BLOOD SPECIMENOrdering Facility: [facility] Address: [address] Performed By: #### 2 4323-8 ####[facility] LABCLIA [id number] [place] [address] [place] Calcium [Mass/Vol] 9.8 mg/dL Normal 8.5-10.2 [facility] Comment on above: Order Comment: Speci men Type: BLOOD SPECIMENOrdering Facility: [facility] Address: [address] Performed By: #### 2 4323-8 ####[facility] LABCLIA [id number] [place] [address] [place] Chloride [Moles/Vol] 108 mmol/L High 97-105 [facility] Comment on above: Order Comment: Speci men Type: BLOOD SPECIMENOrdering Facility: [facility] Address: [address] Performed By: #### 2 4323-8 ####[facility] LABCLIA [id number] [place] [address] [place] CO2 [Moles/Vol] 26 mmol/L Normal 22-30 [facility] Comment on above: Order Comment: Speci men Type: BLOOD SPECIMENOrdering Facility: [facility] Address: [address] [address] Performed By: #### 2 4323-8 ####[facility] LABCLIA [id number] [place] [address] [place] Creatinine [Mass/Vol] 1.79 mg/dL High 0.73-1.22 [facility] Comment on above: Order Comment: Speci men Type: BLOOD SPECIMENOrdering Facility: [facility] Address: [address] [place] [address] Performed By: #### 2 4323-8 ####[facility] LABCLIA [id number] [address] OF [facility] ESTIMATED GLOMERULAR FILTRATION RATE 44 mL/min/1.73m??? Low >=60 [facility] Comment on above: Order Comment: Speci men Type: BLOOD SPECIMENOrdering Facility: [facility] Address: [address] [place] [address] Result Comment: Dayan mated Glomerular Filtration Rate (eGFR) is calculated using the 2020 CKD-EPI creatinine equation. This equation utilizes serum creatinine, sex, and age as parameters. The creatinine assay has traceable calibration to isotope dilution-mass spectrometry. Refer to KDIGO guidelines for clinical interpretation. In patients with unstable renal function, e.g. those with acute kidney injury, the eGFR may not accurately reflect actual GFR. Performed By: #### 2 4323-8 ####[facility] LABCLIA [id number] [place] [address] [place] Glucose [Mass/Vol] 73 mg/dL Low 74-99 [facility] Comment on above: Order Comment: Speci men Type: BLOOD SPECIMENOrdering Facility: [facility] Address: [address] [place] [address] Result Comment: The [place] Diabetes Association (ADA) provides guidance for cutoff values for fasting glucose and random glucose. The ADA defines fasting as no caloric intake for at least 8 hours. Fasting plasma glucose results between 100 to 125 mg/dL indicate increased risk for diabetes (prediabetes).Fasting plasma glucose results greater than or equal to 126 mg/dL meet the criteria for diagnosis of diabetes. In the absence of unequivocal hyperglycemia, results should be confirmed by repeat testing. In a patient with classic symptoms of hyperglycemia or hyperglycemic crisis, random plasma glucose results greater than or equal to 200 mg/dL meet the criteria for diagnosis of diabetes.Reference: Standards of Medical Care in Diabetes 2016, [place] [employer]. Diabetes Care. 2016.39(Suppl 1). Performed By: #### 2 4323-8 ####[facility] LABCLIA [id number] [place] [address] [place] Potassium [Moles/Vol] 4.5 mmol/L Normal 3.7-5.1 [facility] Comment on above: Order Comment: Speci men Type: BLOOD SPECIMENOrdering Facility: [facility] Address: [address] [address] Performed By: #### 2 4323-8 ####[facility] LABCLIA [id number] [place] [address] [place] Protein [Mass/Vol] 6.4 g/dL Normal 6.3-8.0 [facility] Comment on above: Order Comment: Speci men Type: BLOOD SPECIMENOrdering Facility: [facility] Address: [address] Performed By: #### 2 4323-8 ####[facility] LABCLIA [id number] [place] [address] [place] Sodium [Moles/Vol] 144 mmol/L Normal 136-144 [facility] Comment on above: Order Comment: Speci men Type: BLOOD SPECIMENOrdering Facility: [facility] Address: [address] [address] Performed By: #### 2 4323-8 ####[facility] LABCLIA [id number] [place] [address] [place] Urea nitrogen [Mass/Vol] 15 mg/dL Normal 9-24 [facility] Comment on above: Order Comment: Speci men Type: BLOOD SPECIMENOrdering Facility: [facility] Address: [address] [place] [address] Performed By: #### 2 4323-8 ####[facility] LABIA [id number] [place] [address] [place] ECG COMPLETEon 02-08-2023 ECG COMPLETE Normal [facility] HISTORY PHYSICALon HISTORY PHYSICAL Normal [facility] MRI BRAIN LOCAL W IVCONon MRI BRAIN LOCAL W IVCON Normal [facility] PT panel Coag (PPP)on 2022 INR Coag (PPP) [Relative time] 1.0 {INR} Normal 0.9-1.3 [facility] Comment on above: Order Comment: Speci men Type: BLOOD SPECIMENOrdering Facility: [facility] Address: [address] [place] [address] Result Comment: Ella min K Antagonist (VKA) Therapeutic Range: INR 2 to 3 (Target INR of 2.5)Note: For patients treated with VKA drugs, such as warfarin, the [place] [employer] 2012 Guideline recommends a therapeutic INR range of 2 to 3 (target INR of 2.5). This recommendation includes high-risk patients with antiphospholipid syndrome with previous arterial or venous thromboembolism, current-generation mechanical or bioprosthetic aortic heart valve replacement.Note: Patients with mechanical aortic valve replacement and additional risk factors for thromboembolic events (atrial fibrillation, previous thromboembolism, LV dysfunction, hypercoagulable conditions) or an older generation mechanical AVR (i.e., ball in-Cage) or any mechanical MVR should have a INR therapeutic range of 2.5 to 3.5 (target INR of 3).Cee GERARD, et al. Chest 2012, 141:7S-47SLiberty RA, et al. JACC 2017, 70: 252-289 Performed By: #### 1 4979-9, 70249-0 ####[facility]CLIA [id number] [place] [address] [place] PT Coag (PPP) [Time] 10.6 s Normal 9.7-13.0 [facility] Comment on above: Order Comment: Speci men Type: BLOOD SPECIMENOrdering Facility: [facility] Address: [address] [address] Performed By: #### 1 4979-9, 94276-8 ####[facility]CLIA [id number] [place] [address] [place] STAPH AUREUS PCRon S. aureus and MRSA panel ARINA+probe (Nose) Normal Negative [facility] Comment on above: Order Comment: Speci men Type: SWAB OF INTERNAL NOSEOrdering Facility: [facility] Address: [address] [place] [address] Result Comment: Nega tive for Staphylococcus aureus by PCR.Negative for MRSA by PCR Performed By: #### S APCR ####[facility]CL[facility] [id number] [place] [address] [place] US LEG VEIN DVT GABE VAS LABo n 02-08-2023 US LEG VEIN DVT GABE VAS LAB Normal [facility] US VISCERAL VEIN COMPLETE VA S LABon 02-08-2023 US VISCERAL VEIN COMPLETE VAS LAB Normal [facility] aPTT PPPon 02-08-2023 aPTT Coag (PPP) [Time] 26.4 s Normal 23.0-32.4 [facility] Comment on above: Order Comment: Speci men Type: BLOOD SPECIMENOrdering Facility: [facility] Address: [address] [place] [address] Performed By: #### 1 49799, 52435-9 ####[facility] [id number] [place] [id number] [place] CNPNon 04-28-2023 CNPN Normal [facility] CBC with Auto Differentialon 02-02-2023 Absolute Eos # 0.33 [facility] Absolute Immature Granulocyte [facility] Absolute Lymph # 3.35 [facility] Absolute [place] # 0.67 [facility] Basophils (Bld) [#/Vol] 0.05 10*3/uL [facility] Basophils/100 WBC (Bld) 1 % 0 - 2 % [facility] Eosinophils/100 WBC (Bld) 5 % High 1 - 4 % [facility] Hematocrit (Bld) [Volume fraction] 44.4 % 40.7 - 50.3 % [facility] Hemoglobin (Bld) [Mass/Vol] 14.3 g/dL 13.0 - 17.0 g/dL [facility] Immature granulocytes/100 WBC (Bld) 0 % 0 [facility] Interpretation and review of laboratory results Abnormal [facility] Lymphocytes/100 WBC (Bld) 50 % High 24 - 43 % [facility] MCH (RBC) [Entitic mass] 30.8 pg 25.2 - 33.5 pg [facility] MCHC (RBC) [Mass/Vol] 32.2 g/dL 28.4 - 34.8 g/dL [facility] MCV (RBC) [Entitic vol] 95.5 fL 82.6 - 102.9 fL [facility] Monocytes/100 WBC (Bld) 10 % 3 - 12 % [facility] NRBC Automated 0.0 0.0 per 100 WBC [facility] Platelet distribution width (Bld) [Ratio] 12.4 % 11.8 - 14.4 % [facility] Platelet mean volume (Bld) [Entitic vol] 9.4 fL 8.1 - 13.5 fL [facility] Platelets (Bld) [#/Vol] 253 10*3/uL [facility] RBC (Bld) [#/Vol] 4.65 10*6/uL 4.21 - 5.7 7 m/uL [facility] Segmented neutrophils/100 WBC (Bld) 34 % Low 36 - 65 % [facility] Segs Absolute 2.30 [facility] WBC (Bld) [#/Vol] 6.7 10*3/uL [facility] Renal Function Panelon 02-02 Albumin [Mass/Vol] 4.1 g/dL 3.5 - 5.2 g/dL [facility] Anion gap [Moles/Vol] 6 mmol/L Low 9 - 17 mmol/L [facility] Calcium [Mass/Vol] 10.0 mg/dL 8.6 - 10. 4 mg/dL [facility] Chloride [Moles/Vol] 111 mmol/L High 98 - 10 7 mmol/L [facility] CO2 [Moles/Vol] 27 mmol/L 20 - 31 mmol/L [facility] Creatinine [Mass/Vol] 1.55 mg/dL High 0.70 - 1.20 mg/dL [facility] GFR/1.73 sq M.predicted MDRD (S/P/Bld) [Vol rate/Area] 52 mL/min/{1.73_m2} Low - PINF [facility] Comment on above: These results are not intended for use in patients <18 years of age. eGFR results are calculated without a race factor using the 2020 CKD-EPI equation. Careful clinical correlation is recommended, particularly when comparing to results calculated using previous equations. The CKD-EPI equation is less accurate in patients with extremes of muscle mass, extra-renal metabolism of creatine, excessive creatine ingestion, or following therapy that affects renal tubular secretion. Glucose [Mass/Vol] 99 mg/dL 70 - 99 mg/dL [facility] Interpretation and review of laboratory results Abnormal [facility] Phosphate [Mass/Vol] 3.3 mg/dL 2.5 - 4 .5 mg/dL [facility] Potassium [Moles/Vol] 4.2 mmol/L 3.7 - 5.3 mmol/L [facility] Sodium [Moles/Vol] 144 mmol/L 135 - 144 mmol/L [facility] Urea nitrogen [Mass/Vol] 14 mg/dL 6 - 20 mg/dL [facility] Urea nitrogen/Creatinine (Bld) [Mass ratio] 9 9 - 20 [facility] CNPNon 01-27-2023 CNPN Normal [facility] CBC with Auto Differentialon 11-23-2022 Absolute Eos # 0.37 [facility] Absolute Immature Granulocyte [facility] Absolute Lymph # 2.70 [facility] Absolute [place] # 0.61 [facility] Basophils (Bld) [#/Vol] 0.06 10*3/uL [facility] Basophils/100 WBC (Bld) 1 % 0 - 2 % [facility] Eosinophils/100 WBC (Bld) 6 % High 1 - 4 % [facility] Hematocrit (Bld) [Volume fraction] 45.4 % 40.7 - 50.3 % [facility] Hemoglobin (Bld) [Mass/Vol] 14.5 g/dL 13.0 - 17.0 g/dL [facility] Immature granulocytes/100 WBC (Bld) 0 % 0 [facility] Interpretation and review of laboratory results Abnormal [facility] Lymphocytes/100 WBC (Bld) 45 % High 24 - 43 % [facility] MCH (RBC) [Entitic mass] 31.1 pg 25.2 - 33.5 pg [facility] MCHC (RBC) [Mass/Vol] 31.9 g/dL 28.4 - 34.8 g/dL [facility] MCV (RBC) [Entitic vol] 97.4 fL 82.6 - 102.9 fL [facility] Monocytes/100 WBC (Bld) 10 % 3 - 12 % [facility] NRBC Automated 0.0 0.0 per 100 WBC [facility] Platelet distribution width (Bld) [Ratio] 12.7 % 11.8 - 14.4 % [facility] Platelet mean volume (Bld) [Entitic vol] 9.7 fL 8.1 - 13.5 fL [facility] Platelets (Bld) [#/Vol] 247 10*3/uL [facility] RBC (Bld) [#/Vol] 4.66 10*6/uL 4.21 - 5.7 7 m/uL [facility] Segmented neutrophils/100 WBC (Bld) 38 % 36 - 65 % [facility] Segs Absolute 2.32 [facility] WBC (Bld) [#/Vol] 6.1 10*3/uL [facility] Renal Function Panelon 11-23 Albumin [Mass/Vol] 3.8 g/dL 3.5 - 5.2 g/dL [facility] Anion gap [Moles/Vol] 6 mmol/L Low 9 - 17 mmol/L [facility] Calcium [Mass/Vol] 9.9 mg/dL 8.6 - 10. 4 mg/dL [facility] Chloride [Moles/Vol] 107 mmol/L 98 - 10 7 mmol/L [facility] CO2 [Moles/Vol] 28 mmol/L 20 - 31 mmol/L [facility] Creatinine [Mass/Vol] 1.62 mg/dL High 0.70 - 1.20 mg/dL [facility] GFR/1.73 sq M.predicted MDRD (S/P/Bld) [Vol rate/Area] 50 mL/min/{1.73_m2} Low - PINF [facility] Comment on above: These results are not intended for use in patients <18 years of age. eGFR results are calculated without a race factor using the 2020 CKD-EPI equation. Careful clinical correlation is recommended, particularly when comparing to results calculated using previous equations. The CKD-EPI equation is less accurate in patients with extremes of muscle mass, extra-renal metabolism of creatine, excessive creatine ingestion, or following therapy that affects renal tubular secretion. Glucose [Mass/Vol] 99 mg/dL 70 - 99 mg/dL [facility] Interpretation and review of laboratory results Abnormal [facility] Phosphate [Mass/Vol] 3.1 mg/dL 2.5 - 4 .5 mg/dL [facility] Potassium [Moles/Vol] 4.0 mmol/L 3.7 - 5.3 mmol/L [facility] Sodium [Moles/Vol] 141 mmol/L 135 - 144 mmol/L [facility] Urea nitrogen [Mass/Vol] 20 mg/dL 6 - 20 mg/dL [facility] Urea nitrogen/Creatinine (Bld) [Mass ratio] 12 9 - 20 [facility] LACOSAMIDEon 11-13-2022 Lacosamide 2.8 ug/mL Critically low 5.0-10.0 [facility] Comment on above: Result Comment: This test was developed and its performance characteristics determined by [employer]. It has not been cleared or approved by the Food and Drug Administration. Limit of Detection 0.5 . Mean plasma concentrations following maintenance dose 200 mg/day 4.99 +/- 2.51 ug/mL 400 mg/day 9.35 +/- 4.22 ug/mL 600 mg/day 12.46 +/- 5.60 ug/mL Performed By: #### L ACSADIM ####[facility] [address] [place] [address]DrSavita Del Real Cholesterol [Mass/volume] in Serum or PlasmaOrdered By: Buster Tejada on 11-12-2022 Cholesterol [Mass/Vol] 128 mg/dL 140-200 [facility] Comment on above: Chol less than 200 m g/dl low riskChol 201-239 mg/dl borderline riskChol 240 mg/dl and greater high risk Cholesterol in LDL Calc [Mas s/Vol]Ordered By: Buster Tejada on 11-12-2022 Cholesterol in LDL [Mass/Vol] 68 mg/dL 0-100 [facility] Comment on above: LDL ATP III CLASSIFI CATIONLDL less than 100 mg/dL OptimalLDL 100-129 mg/dL Near or above optimalLDL 130-159 mg/dL Borderline highLDL 160-189 mg/dL HighLDL greater than 189 mg/dL Very high Cholesterol in VLDL Calc [Ma ss/Vol]Ordered By: Buster Tejada on 11-12-2022 Cholesterol in VLDL [Mass/Vol] 10 mg/dL [facility] LAMOTRIGINEon 11-12-2022 Lamotrigine, Serum 7.0 ug/mL Normal 2.0-20.0 [facility] Comment on above: Result Comment: Dete ction Limit = 1.0 Performed By: #### L AMOT ####[facility] [address] [place], [place] [address]Yx. Hamzah Del Real No Panel InformationOrdered By: Buster Tejada on 11-12-2022 25-Hydroxy Vitamin D Total 35.8 ng/mL 30-100 [facility] Comment on above: VITAMIN D STATUS 25( [place])VITAMIN D RANGE (ng/mL) Deficient <20 Insufficient 20 to <30Sufficient 30 to 100Reference: Araceli MF,Jamaal MAYA, Meño GAUTAM, et al. Evaluation,treatment, and prevention of vitamin D deficiency; an Endocrine Society clinical practice guideline. JCEM. 2010; 96(7):1911-30. Serum or plasma high density lipoprotein (HDL) cholesterol measurementOrdered By: Buster Tejada on 11-12-2022 Cholesterol in HDL [Mass/Vol] 49 mg/dL 29-71 [facility] Comment on above: HDL CHOL ATP-III CLA SSIFICATION Cardiovascular RiskHDL > or equal to 60 mg/dL LOWHDL < 40 mg/dL HIGH Serum or plasma total choles terol/high density lipoprotein (HDL) cholesterol mass ratOrdered By: Buster Tejada on 11-12-2022 Cholesterol.total/Cho lesterol in HDL [Mass ratio] 2.6 {ratio} <5.0 [facility] TSH DL <= 0.005 mIU/L QnOrde red By: Buster Tejada on 11-12-2022 TSH Qn 1.66 m[IU]/L 0.45-5.33 [facility] Triglyceride [Mass/volume] i n Serum or PlasmaOrdered By: Buster Tejada on 11-12-2022 Triglyceride [Mass/Vol] 53 mg/dL 35-149 [facility] Comment on above: TRIG ATP III CLASSIF ICATIONTRIG less than 150 mg/dL NormalTRIG 150-199 mg/dL Borderline highTRIG 200-500 mg/dL High TRIG greater than 500 mg/dL Very highStandard traceable to the Center for Disease Conrtrol and Prevention (CDC) test method. CBC AUTO DIFFon 11-10-2022 BASO # 0.1 103/ul Normal 0.0-0.1 [facility] Comment on above: Performed By: #### C BC #### [facility] [address] [address] [address] Hamzah Del Real Basophils/100 WBC (Bld) 0.6 % Normal 0.2-2.0 [facility] Comment on above: Performed By: #### C BC #### [facility] [address] [place] [address] Dr. Hamzah Del Real EO # 0.2 103/ul Normal 0.0-0.7 [facility] Comment on above: Performed By: #### C BC #### [facility] [address] [place] [address] Dr. Hamzah Del Real Eosinophils/100 WBC (Bld) 2.0 % Normal 0.9-7.0 [facility] Comment on above: Performed By: #### C BC #### [facility] [address] [place] [address] Dr. Hamzah Del Real Erythrocyte distribution width (RBC) [Ratio] 12.6 % Normal 11.0-15.0 [facility] Comment on above: Performed By: #### C BC #### [facility] [address] [place] [address] Dr. Hamzah Del Real Hematocrit (Bld) [Volume fraction] 46.8 % Normal 42.0-54.0 [facility] Comment on above: Performed By: #### C BC #### [facility] [address] [place] [address] Dr. Hamzah Del Real Hemoglobin (Bld) [Mass/Vol] 15.1 g/dL Normal 14.0-18.0 [facility] Comment on above: Performed By: #### C BC #### [facility] [address] [place] [address] Dr. Hamzah Del Real IG # 0.01 10e3/ul Normal 0.00-0.03 [facility] Comment on above: Performed By: #### C BC #### [facility] [address] [place] [address] Dr. Hamzah Del Real IG % 0.1 % Normal 0.0-0.5 [facility] Comment on above: Performed By: #### C BC #### [facility] [address] [address] [address] Hamzah Del Real LYMPH # 3.5 103/ul Normal 1.2-3.8 [facility] Comment on above: Performed By: #### C BC #### [facility] [address] [place] [address] Dr. Hamzah Del Real Lymphocytes/100 WBC (Bld) 40.5 % Normal 20.5-60.0 [facility] Comment on above: Performed By: #### C BC #### [facility] [address] [place] [address] Dr. Hamzah Del Real MANUAL DIFF REQ NO Normal [facility] Comment on above: Performed By: #### C BC #### [facility] [address] [place] [address] Dr. Hamzah Del Real MCH (RBC) [Entitic mass] 30.7 pg Normal 25.9-34.0 [facility] Comment on above: Performed By: #### C BC #### [facility] [address] [place] [address] Dr. Hamzah Del Real MCHC (RBC) [Mass/Vol] 32.3 g/dL Normal 29.9-35.2 [facility] Comment on above: Performed By: #### C BC #### [facility] [address] [place] [address] Dr. Hamzah Del Real MCV (RBC) [Entitic vol] 95.1 fL Critically high 80.0-94.0 [facility] Comment on above: Performed By: #### C BC #### [facility] [address] [place] [address] Dr. Hamzah Del Real MONO # 0.8 103/ul Normal 0.3-0.8 [facility] Comment on above: Performed By: #### C BC #### [facility] [address] [place] [address] Dr. Hamzah Del Real Monocytes/100 WBC (Bld) 9.8 % Normal 1.7-12.0 [facility] Comment on above: Performed By: #### C BC #### [facility] [address] [place] [address] Dr. Hamzah Del Real NEUT # 4.0 103/ul Normal 1.4-6.5 [facility] Comment on above: Performed By: #### C BC #### [facility] [address] [place] [address] Dr. Hamzah Del Real Neutrophils/100 WBC (Bld) 47.0 % Normal 43.0-75.0 [facility] Comment on above: Performed By: #### C BC #### [facility] [address] [place] [address] Dr. Hamzah Del Real Platelet mean volume (Bld) [Entitic vol] 9.5 fL Normal 9.5-13.5 [facility] Comment on above: Performed By: #### C BC #### [facility] [address] [place] [address] Dr. Hamzah Del Real PLT 282 103/ul Normal 150-450 [facility] Comment on above: Performed By: #### C BC #### [facility] [address] [place] [address] Dr. Hamzah Del Real RBC 4.92 106/ul Normal 4.70-6.10 [facility] Comment on above: Performed By: #### C BC #### [facility] [address] [place] [address] Dr. Hamzah Del Real WBC 8.5 103/ul Normal 4.0-11.0 [facility] Comment on above: Performed By: #### C BC #### [facility] [address] [place] [address] Dr. Hamzah Del Real [facility]on SARS-CoV-2 (COVID-19) RNA ARINA+probe Ql (Unsp spec) Not detected Normal NOT DETECTED [facility] Comment on above: Result Comment: When diagnostic testing is negative, the possibility of a false negative should be considered in the context of a patient's recent exposures and the presence of clinical signs and symptoms consistent with SARS-CoV-2. This test is not yet approved or cleared by the [place] FDA. When there are no FDA-approved or cleared tests available, and other criteria are met, FDA can make tests available under an emergency access mechanism called an Emergency Use Authorization (EUA). The EUA for this test is supported by the [employer] of Health and Human Service's declaration that circumstances exist to justify the emergency use of in vitro diagnostics for the detection and/or diagnosis of the virus that causes COVID-19. This EUA will remain in effect for the duration of the COVID-19 declaration justifying emergency of IVDs, unless it is terminated or revoked by the FDA (after which the test may no longer be used). Performed By: #### C VDTBH ####[facility] [address] [place] [place] [address]Dr. Hamzah Del Real DRUG SCREEN RAPID (URINE)on 11-10-2022 AMP Negative Normal NEGATIVE [facility] Comment on above: Performed By: #### D RUGRPD #### [facility] [address] [place] [address] Dr. Hamzah Del Real BAR Negative Normal NEGATIVE [facility] Comment on above: Performed By: #### D RUGRPD #### [facility] [address] [place] [address] Dr. Hamzah Del Real BUP Negative Normal NEGATIVE [facility] Comment on above: Performed By: #### D RUGRPD #### [facility] [address] [place] [address] Dr. Hamzah Del Real BZO Negative Normal NEGATIVE [facility] Comment on above: Performed By: #### D RUGRPD #### [facility] [address] [place] [address] Dr. Hamzah Del Real LV Negative Normal NEGATIVE [facility] Comment on above: Performed By: #### D RUGRPD #### [facility] [address] [place] [address] Dr. Hamzah Del Real CUT-OFFS SEE BELOW Normal [facility] Comment on above: Result Comment: AMP (Amphetamine): 500ng/mL, BAR (Barbituates): 200 ng/mL, BZO (Benzodiazepines): 150 ng/mL, BUP (Buprenorphine): 10 ng/mL, LV (Cocaine): 150 ng/mL, mAMP (Methamphetamine): 500 ng/mL, MTD (Methadone): 200 ng/mL, OPI (Opiates): 100 ng/mL, OXY (Oxycodone): 100 ng/mL, PCP (Phencyclidine): 25 ng/mL, PPX (Propoxyphene): 300 ng/mL, THC (Cannabinoids): 50 ng/mL, TCA (Trycyclic Antidepressants): 300 ng/mL Performed By: #### D RUGRPD #### [facility] [address] [place] [address] Dr. Hamzah Del Real DRUG CUT HEADER DRUG CLASS TEST SYST EM CUT-OFF CONCENTRATIONS ARE FOLLOWS: Normal [facility] Comment on above: Performed By: #### D RUGRPD #### [facility] [address] [place] [address] Dr. Hamzah Del Real mAMP Negative Normal NEGATIVE [facility] Comment on above: Performed By: #### D RUGRPD #### [facility] [address] [place] [address] Dr. Hamzah Del Real MTD Negative Normal NEGATIVE [facility] Comment on above: Performed By: #### D RUGRPD #### [facility] [address] [place] [address] Dr. Hamzah Del Real OPI Negative Normal NEGATIVE [facility] Comment on above: Performed By: #### D RUGRPD #### [facility] [address] [place] [address] Dr. Hamzah Del Real OXY Negative Normal NEGATIVE [facility] Comment on above: Performed By: #### D RUGRPD #### [facility] [address] [place] [address] Dr. Hamzah Del Real PCP Negative Normal NEGATIVE [facility] Comment on above: Performed By: #### D RUGRPD #### [facility] [address] [place] [address] Dr. Hamzah Del Real PPX Negative Normal NEGATIVE [facility] Comment on above: Performed By: #### D RUGRPD #### [facility] [address] [place] [address] Dr. Hamzah Del Real TCA Negative Normal NEGATIVE [facility] Comment on above: Performed By: #### D RUGRPD #### [facility] [address] [address] [address] Hamzah Del Real THC Negative Normal NEGATIVE [facility] Comment on above: Performed By: #### D RUGRPD #### [facility] [address] [address] [address] Hamzah Del Real ER URINE PROFILEon 3 Bilirubin Ql (U) Negative Normal NEGATIVE [facility] Comment on above: Performed By: #### U MICRO, ERUR #### [facility] [address] [address] [address] Hamzah Del Real Clarity (U) CLEAR Normal CLEAR [facility] Comment on above: Performed By: #### U MICRO, ERUR #### [facility] [address] [place] [address] Dr. Hamzah Del Real Color (U) YELLOW Normal YELLOW [facility] Comment on above: Performed By: #### U MICRO, ERUR #### [facility] [address] [place] [address] Dr. Hamzah Del Real ERUAHWatson A micrscopic examina tion will be performed if indicated. Normal [facility] Comment on above: Performed By: #### U MICRO, ERUR #### [facility] [address] [place] [address] Dr. Hamzah Del Real Glucose Ql (U) Negative Normal NEGATIVE [facility] Comment on above: Performed By: #### U MICRO, ERUR #### [facility] [address] [address] [address] Hamzah Del Real Hemoglobin Ql (U) Negative Normal NEGATIVE [facility] Comment on above: Performed By: #### U MICRO, ERUR #### [facility] [address] [address] [address] Hamzah Del Real Ketones Ql (U) 15 mg/dl Abnormal NEGATIVE [facility] Comment on above: Performed By: #### U MICRO, ERUR #### [facility] [address] [place] [address] Dr. Hamzah Del Real LEUKOCYTES Negative Normal NEGATIVE [facility] Comment on above: Performed By: #### U MICRO, ERUR #### [facility] [address] [address] [address] Hamzah Del Real Nitrite Ql (U) Negative Normal NEGATIVE [facility] Comment on above: Performed By: #### U MICRO, ERUR #### [facility] [address] [place] [address] Dr. Hamzah Del Real pH (U) 7.5 [pH] Normal 5-9 [facility] Comment on above: Performed By: #### U MICRO, ERUR #### [facility] [address] [place] [address] Dr. Hamzah Del Real Protein (U) [Mass/Vol] 30 mg/dL Abnormal NEGATIVE/ TRACE [facility] Comment on above: Performed By: #### U MICRO, ERUR #### [facility] [address] [place] [address] Dr. Hamzah Del Real SPEC GRAVITY 1.015 Normal 1.005-<=1.02 5 [facility] Comment on above: Performed By: #### U MICRO, ERUR #### [facility] [address] [place] [address] Dr. Hamzah Del Real UR MICRO IND INDICATED Normal [facility] Comment on above: Performed By: #### U MICRO, ERUR #### [facility] [address] [place] [address] Dr. Hamzah Del Real Urobilinogen Qn (U) 1.0 {Darion'U}/dL Normal 0.2 - 1. 0 [facility] Comment on above: Performed By: #### U MICRO, ERUR #### [facility] [address] [place] [address] Dr. Hamzah Del Real INFLUENZA A AND B AGon 11-10 INFLUANEGH SEE BELOW Normal [facility] Comment on above: Result Comment: Nega tive for Flu A protein angiten. Infection due to Flu A cannot be ruled out. Flu A angiten in the sample may be below the detection limit of the test. Performed By: #### I NFLUAB #### [facility] [address] [place], [place] [id number] Dr. Hamzah Del Real [facility] SEE BELOW Normal [facility] Comment on above: Result Comment: Nega tive for Flu B protein antigen. Infection due to Flu B cannot be ruled out. Flu B antigen in the sample may be below the detection limit of the test. Performed By: #### I NFLUAB #### [facility] [address] [place] [address] Dr. Hamzah Del Real INFLUENZA A AG Negative Normal NEGATIVE SEE COMMENT [facility] Comment on above: Performed By: #### I NFLUAB #### [facility] [address] [place] [address] Dr. Hamzah Del Real INFLUENZA B AG Negative Normal NEGATIVE SEE COMMENT [facility] Comment on above: Performed By: #### I NFLUAB #### [facility] [address] [place] [address] Dr. Hamzah Del Real LACTATE/LACTIC ACIDon 2022 Lactate [Moles/Vol] 1.6 mmol/L Normal 0.4-1.9 [facility] Comment on above: Performed By: #### L ACT ####[facility] [id number] [address]Dr. Hamzah Del Real POINT OF CARE GLUCOSEon Glucose [Mass/Vol] 115 mg/dL Critically high 74-106 [facility] Comment on above: Performed By: #### P OCGLUC #### [facility] [address] [place] [address] Dr. Hamzah Del Real PROF 14(COMP METB)on 023 Albumin [Mass/Vol] 3.9 g/dL Normal 3.4-5.0 [facility] Comment on above: Performed By: #### C MP #### [facility] [address] [place] [address] Dr. Hamzah Del Real Albumin/Globulin [Mass ratio] 1.1 {ratio} Normal [facility] Comment on above: Performed By: #### C MP #### [facility] [address] [place] [address] Dr. Hamzah Del Real ALP [Catalytic activity/Vol] 86 U/L Normal 46-116 [facility] Comment on above: Performed By: #### C MP #### [facility] [address] [address] [address] Hamzah Del Real ALT [Catalytic activity/Vol] 23 U/L Normal 16-63 [facility] Comment on above: Performed By: #### C MP #### [facility] [address] [address] [address] Hamzah Del Real Anion gap [Moles/Vol] 14.6 mmol/L Normal [facility] Comment on above: Performed By: #### C MP #### [facility] [address] [address] [address] Hamzah Del Real AST [Catalytic activity/Vol] 19 U/L Normal 15-37 [facility] Comment on above: Performed By: #### C MP #### [facility] [address] [address] [address] Hamzah Del Real Bilirubin [Mass/Vol] 1.0 mg/dL Normal 0.2-1.0 [facility] Comment on above: Performed By: #### C MP #### [facility] [address] [address] [address] Hamzah Del Real Calcium [Mass/Vol] 9.8 mg/dL Normal 8.5-10.1 [facility] Comment on above: Performed By: #### C MP #### [facility] [address] [address] [address] Hamzah Del Real Chloride [Moles/Vol] 108 mmol/L Critically high 98-107 [facility] Comment on above: Performed By: #### C MP #### [facility] [address] [address] [address] Hamzah Del Real CO2 [Moles/Vol] 25.5 mmol/L Normal 21.0-32.0 [facility] Comment on above: Performed By: #### C MP #### [facility] [address] [address] [address] Hamzah Del Real Creatinine [Mass/Vol] 1.63 mg/dL Critically high 0.70-1.30 [facility] Comment on above: Performed By: #### C MP #### [facility] [address] [address] [address] Hamzah Del Real EGFR-AF BELIZEAN 53 mL/min/1.73m2 Critically low >=60 [facility] Comment on above: Performed By: #### C MP #### [facility] [address] [address] [address] Hamzah Del Real EGFR-NON AF BELIZEAN 44 mL/min/1.73m2 Critically low >=60 [facility] Comment on above: Performed By: #### C MP #### [facility] [address] [address] [address] Hamzah Del Real Globulin (S) [Mass/Vol] 3.4 g/dL Normal [facility] Comment on above: Performed By: #### C MP #### [facility] [address] [address] [address] Hamzah Del Real Glucose [Mass/Vol] 122 mg/dL Critically high 74-106 [facility] Comment on above: Performed By: #### C MP #### [facility] [address] [address] [address] Hamzah Del Real Potassium [Moles/Vol] 4.1 mmol/L Normal 3.5-5.1 [facility] Comment on above: Performed By: #### C MP #### [facility] [address] [address] [address] Hamzah Del Real Protein [Mass/Vol] 7.3 g/dL Normal 6.4-8.2 [facility] Comment on above: Performed By: #### C MP #### [facility] [address] [address] [address] Hamzah Del Real Sodium [Moles/Vol] 144 mmol/L Normal 136-145 [facility] Comment on above: Performed By: #### C MP #### [facility] [address] [address] [address] Hamzah Del Real Urea nitrogen [Mass/Vol] 16.0 mg/dL Normal 7.0-18.0 [facility] Comment on above: Performed By: #### C MP #### [facility] [address] [address] [address] Hamzah Del Real Urea nitrogen/Creatinine [Mass ratio] 9.8 mg/mg Normal [facility] Comment on above: Performed By: #### C MP #### [facility] [address] [address] [address] Hamzah Del Real URINE MICROSCOPIC ONLYon BACTERIA NONE SEEN Normal NONE SEEN [facility] Comment on above: Performed By: #### U MICRO, ERUR #### [facility] [address] [place] [address] Dr. Hamzah Del Real Bacteria identified Cx Nom (U) NOT INDICATED Normal [facility] Comment on above: Performed By: #### U MICRO, ERUR #### [facility] [address] [place] [address] Dr. Hamzah Del Real CAST NONE SEEN Normal NONE SEEN [facility] Comment on above: Performed By: #### U MICRO, ERUR #### [facility] [address] [place] [address] Dr. Hamzah Del Real Crystals LM Nom (Urine sed) NONE SEEN Normal NONE SEEN [facility] Comment on above: Performed By: #### U MICRO, ERUR #### [facility] [address] [place] [address] Dr. Hamzah Del Real Epithelial cells LM Ql (Urine sed) FEW Abnormal NONE SEEN /RARE [facility] Comment on above: Performed By: #### U MICRO, ERUR #### [facility] [address] [place] [address] Dr. Hamzah Del Real MUCOUS TRACE Abnormal NONE SEEN [facility] Comment on above: Performed By: #### U MICRO, ERUR #### [facility] [address] [place] [address] Dr. Hamzah Del Real RBC NONE SEEN Abnormal 0-2 [facility] Comment on above: Performed By: #### U MICRO, ERUR #### [facility] [address] [place] [address] Dr. Hamzah Del Real WBC NONE SEEN Normal NONE SEEN [facility] Comment on above: Performed By: #### U MICRO, ERUR #### [facility] [address] [address] [address] Hamzah Del Real XR CHEST 1 Von 11-10-2022 XR CHEST 1 V EXAMINATION: XR CHES T 1 V HISTORY: COUGH COMPARISON: No relevant comparison available. FINDINGS: LUNGS: Normal stranding within medial right lung base and lateral left lung base. Slightly elevated left hemidiaphragm. VASCULATURE: No increased pulmonary vasculature. PLEURA: No pneumothorax, effusion, or pleural thickening. CARDIAC: No cardiomegaly or cardiac silhouette abnormality. MEDIASTINUM: No visible mass or adenopathy. BONES: No fracture or visible bone lesion. OTHER: Negative. IMPRESSION: 1. Trace amount of bibasilar atelectasis versus infiltrates. No comparison studies. Electronically authenticated by: ALVIN BELTRÁN Date: 2022-11-10 12:19 Normal [facility] CBC with Auto Differentialon 08-04-2022 Absolute Eos # 0.35 [place] [facility] Absolute Immature Granulocyte [facility] Absolute Lymph # 2.98 [facility] Absolute [place] # 0.85 [facility] Basophils (Bld) [#/Vol] 0.04 10*3/uL [facility] Basophils/100 WBC (Bld) 1 % 0 - 2 % [facility] Eosinophils/100 WBC (Bld) 5 % High 1 - 4 % [facility] Hematocrit (Bld) [Volume fraction] 43.4 % 40.7 - 50.3 % [facility] Hemoglobin (Bld) [Mass/Vol] 13.8 g/dL 13.0 - 17.0 g/dL [facility] Immature granulocytes/100 WBC (Bld) 0 % 0 [facility] Interpretation and review of laboratory results Abnormal [facility] Lymphocytes/100 WBC (Bld) 39 % 24 - 43 % [facility] MCH (RBC) [Entitic mass] 30.9 pg 25.2 - 33.5 pg [facility] MCHC (RBC) [Mass/Vol] 31.8 g/dL 28.4 - 34.8 g/dL [facility] MCV (RBC) [Entitic vol] 97.3 fL 82.6 - 102.9 fL [facility] Monocytes/100 WBC (Bld) 11 % 3 - 12 % [facility] NRBC Automated 0.0 0.0 per 100 WBC [facility] Platelet distribution width (Bld) [Ratio] 12.5 % 11.8 - 14.4 % [facility] Platelet mean volume (Bld) [Entitic vol] 8.7 fL 8.1 - 13.5 fL [facility] Platelets (Bld) [#/Vol] 248 10*3/uL [facility] RBC (Bld) [#/Vol] 4.46 10*6/uL 4.21 - 5.7 7 m/uL [facility] Segmented neutrophils/100 WBC (Bld) 44 % 36 - 65 % [facility] Segs Absolute 3.41 [facility] WBC (Bld) [#/Vol] 7.7 10*3/uL [facility] Renal Function Panelon 08-04 Albumin [Mass/Vol] 4.1 g/dL 3.5 - 5.2 g/dL [facility] Anion gap [Moles/Vol] 9 mmol/L 9 - 17 mmol/L [facility] Calcium [Mass/Vol] 9.9 mg/dL 8.6 - 10. 4 mg/dL [facility] Chloride [Moles/Vol] 107 mmol/L 98 - 10 7 mmol/L [facility] CO2 [Moles/Vol] 28 mmol/L 20 - 31 mmol/L [facility] Creatinine [Mass/Vol] 1.76 mg/dL High 0.70 - 1.20 mg/dL [facility] GFR/1.73 sq M.predicted MDRD (S/P/Bld) [Vol rate/Area] 45 mL/min/{1.73_m2} Low - PINF [facility] Comment on above: Effective Jul 12, 2022 These results are not intended for use in patients <18 years of age. eGFR results are calculated without a race factor using the 2020 CKD-EPI equation. Careful clinical correlation is recommended, particularly when comparing to results calculated using previous equations. The CKD-EPI equation is less accurate in patients with extremes of muscle mass, extra-renal metabolism of creatine, excessive creatine ingestion, or following therapy that affects renal tubular secretion. Glucose [Mass/Vol] 104 mg/dL High 70 - 99 mg/dL [facility] Interpretation and review of laboratory results Abnormal [facility] Phosphate [Mass/Vol] 2.9 mg/dL 2.5 - 4 .5 mg/dL [facility] Potassium [Moles/Vol] 4.1 mmol/L 3.7 - 5.3 mmol/L [facility] Sodium [Moles/Vol] 144 mmol/L 135 - 144 mmol/L [facility] Urea nitrogen (BldV) [Mass/Vol] 17 mg/dL 6 - 20 mg/dL [facility] Urea nitrogen/Creatinine (Bld) [Mass ratio] 10 9 - 20 [facility] XR SHOULDER RT 2V or >on XR SHOULDER RT 2V or > EXAM: XR SHOULDER RT 2V or > HISTORY: Right shoulder Pain COMPARISON: X-ray performed 01/02/2022. TECHNIQUE: AP internal and external rotation views of the right shoulder and scapular Y-view are obtained. FINDINGS: There is no focal soft tissue abnormality. Osseous mineralization is within normal limits. There is no acute fracture or dislocation. The glenohumeral joint is normally maintained. Widening of the acromioclavicular joint at 1.2 cm appears unchanged without degenerative change. The remaining visualized osseous structures appear grossly intact. IMPRESSION: 1. No acute fracture or dislocation. 2. Stable mild widening at the acromioclavicular joint at 1.2 cm, possibly postsurgical. Electronically authenticated by: TOMÁS MACE Date: 2022-06-21 01:23 Normal [facility] CBC with Auto Differentialon 06-03-2022 Absolute Eos # 0.23 [place] [facility] Absolute Immature Granulocyte [facility] Absolute Lymph # 3.18 [place] [facility] Absolute [place] # 0.54 [facility] RS [facility] Basophils (Bld) [#/Vol] 0.05 10*3/uL [facility] Basophils/100 WBC (Bld) 1 % 0 - 2 % [facility] Eosinophils/100 WBC (Bld) 3 % 1 - 4 % [facility] Hematocrit (Bld) [Volume fraction] 44.9 % 40.7 - 50.3 % [facility] Hemoglobin (Bld) [Mass/Vol] 14.3 g/dL 13 - 17 g/dL [facility] Immature granulocytes/100 WBC (Bld) 0 % 0 [facility] Lymphocytes/100 WBC (Bld) 40 % 24 - 43 % [facility] MCH (RBC) [Entitic mass] 31.0 pg 25.2 - 33.5 pg [facility] MCHC (RBC) [Mass/Vol] 31.8 g/dL 28.4 - 34.8 g/dL [facility] MCV (RBC) [Entitic vol] 97.2 fL 82.6 - 102.9 fL [facility] Monocytes/100 WBC (Bld) 7 % 3 - 12 % [facility] NRBC Automated 0.0 0.0 per 100 WBC [facility] Platelet distribution width (Bld) [Ratio] 12.5 % 11.8 - 14.4 % [facility] Platelet mean volume (Bld) [Entitic vol] 9.0 fL 8.1 - 13.5 fL [facility] Platelets (Bld) [#/Vol] 245 10*3/uL [facility] RBC (Bld) [#/Vol] 4.62 10*6/uL 4.21 - 5.7 7 m/uL [facility] Segmented neutrophils/100 WBC (Bld) 49 % 36 - 65 % [facility] Segs Absolute 3.91 [facility] WBC (Bld) [#/Vol] 7.9 10*3/uL [facility] Laboratory - Chemistry and C hemistry - challengeon 06-03-2022 GFR/1.73 sq M.predicted MDRD (S/P/Bld) [Vol rate/Area] [facility] Comment on above: Average GFR for 50-5 9 years old: 93 mL/min/1.73sq m Chronic Kidney Disease: <60 mL/min/1.73sq m Kidney failure: <15 mL/min/1.73sq m eGFR calculated using average adult body mass. Additional eGFR calculator available at: http://www.Habeas/multiple_crcl_2012.htm Stage 1: Some kidney damage normal GFR Stage 2: Mild kidney damage GFR 60-89 Stage 3: Moderate kidney damage GFR 30-59 Stage 4: Severe kidney damage GFR 15-29 Stage 5: Severe kidney damage GFR <15 ESRD - chronic treatment by dialysis or transplant Renal Function Panelon 06-03 Albumin [Mass/Vol] 4.4 g/dL 3.5 - 5.2 g/dL [facility] Anion gap [Moles/Vol] 6 mmol/L Low 9 - 17 mmol/L [facility] Calcium [Mass/Vol] 10.2 mg/dL 8.6 - 10. 4 mg/dL [facility] Chloride [Moles/Vol] 106 mmol/L 98 - 10 7 mmol/L [facility] CO2 [Moles/Vol] 30 mmol/L 20 - 31 mmol/L [facility] Creatinine [Mass/Vol] 1.59 mg/dL High 0.7 - 1.2 mg/dL [facility] GFR 55 mL/min Low 60 - PI NF mL/min [facility] GFR Non- 45 mL/min Low 60 - PINF mL/min [facility] Glucose [Mass/Vol] 103 mg/dL High 70 - 99 mg/dL [facility] Interpretation and review of laboratory results Abnormal [facility] Phosphate [Mass/Vol] 2.7 mg/dL 2.5 - 4 .5 mg/dL [facility] Potassium [Moles/Vol] 4.5 mmol/L 3.7 - 5.3 mmol/L [facility] Sodium [Moles/Vol] 142 mmol/L 135 - 144 mmol/L [facility] Urea nitrogen (BldV) [Mass/Vol] 18 mg/dL 6 - 20 mg/dL [facility] Urea nitrogen/Creatinine (Bld) [Mass ratio] 11 9 - 20 [facility] Vancomycin Level, Troughon 0 06-03-2022 Interpretation and review of laboratory results Abnormal [facility] Vancomycin Tr <1.7 Critically low 10 - 20 ug/mL [facility] Comment on above: Higher trough serum vancomycin concentrations of 15-20 ug/mL are recommended for complicated infections such as bacteremia, endocarditis, osteomyelitis, meningitis, and hospital acquired pneumonia. [facility] CBC with Auto Differentialon 05-04-2022 Absolute Eos # 0.23 [place] [facility] Absolute Immature Granulocyte 0.03 [facility] Absolute Lymph # 4.13 [facility] Absolute [place] # 0.62 [facility] Basophils (Bld) [#/Vol] 0.05 10*3/uL [facility] Basophils/100 WBC (Bld) 1 % 0 - 2 % [facility] Eosinophils/100 WBC (Bld) 3 % 1 - 4 % [facility] Hematocrit (Bld) [Volume fraction] 43.0 % 40.7 - 50.3 % [facility] Hemoglobin (Bld) [Mass/Vol] 13.9 g/dL 13 - 17 g/dL [facility] Immature granulocytes/100 WBC (Bld) 0 % 0 [facility] Interpretation and review of laboratory results Abnormal [facility] Lymphocytes/100 WBC (Bld) 46 % High 24 - 43 % [facility] MCH (RBC) [Entitic mass] 31.0 pg 25.2 - 33.5 pg [facility] MCHC (RBC) [Mass/Vol] 32.3 g/dL 28.4 - 34.8 g/dL [facility] MCV (RBC) [Entitic vol] 96.0 fL 82.6 - 102.9 fL [facility] Monocytes/100 WBC (Bld) 7 % 3 - 12 % [facility] NRBC Automated 0.0 0.0 per 100 WBC [facility] Platelet distribution width (Bld) [Ratio] 12.6 % 11.8 - 14.4 % [facility] Platelet mean volume (Bld) [Entitic vol] 10.0 fL 8.1 - 13.5 fL [facility] Platelets (Bld) [#/Vol] 266 10*3/uL [facility] RBC (Bld) [#/Vol] 4.48 10*6/uL 4.21 - 5.7 7 m/uL [facility] Segmented neutrophils/100 WBC (Bld) 43 % 36 - 65 % [facility] Segs Absolute 3.78 [facility] WBC (Bld) [#/Vol] 8.8 10*3/uL [facility] Laboratory - Chemistry and C hemistry - challengeon 05-04-2022 GFR/1.73 sq M.predicted MDRD (S/P/Bld) [Vol rate/Area] [facility] Comment on above: Average GFR for 50-5 9 years old: 93 mL/min/1.73sq m Chronic Kidney Disease: <60 mL/min/1.73sq m Kidney failure: <15 mL/min/1.73sq m eGFR calculated using average adult body mass. Additional eGFR calculator available at: http://www.Habeas/multiple_crcl_2012.htm Stage 1: Some kidney damage normal GFR Stage 2: Mild kidney damage GFR 60-89 Stage 3: Moderate kidney damage GFR 30-59 Stage 4: Severe kidney damage GFR 15-29 Stage 5: Severe kidney damage GFR <15 ESRD - chronic treatment by dialysis or transplant Renal Function Panelon 05-04 Albumin [Mass/Vol] 4.3 g/dL 3.5 - 5.2 g/dL [facility] Anion gap [Moles/Vol] 11 mmol/L 9 - 17 mmol/L [facility] Calcium [Mass/Vol] 9.7 mg/dL 8.6 - 10. 4 mg/dL [facility] Chloride [Moles/Vol] 103 mmol/L 98 - 10 7 mmol/L [facility] CO2 [Moles/Vol] 26 mmol/L 20 - 31 mmol/L [facility] Creatinine [Mass/Vol] 1.56 mg/dL High 0.7 - 1.2 mg/dL [facility] GFR 56 mL/min Low 60 - PI NF mL/min [facility] GFR Non- 46 mL/min Low 60 - PINF mL/min [facility] Glucose [Mass/Vol] 99 mg/dL 70 - 99 mg/dL [facility] Interpretation and review of laboratory results Abnormal [facility] Phosphate [Mass/Vol] 2.8 mg/dL 2.5 - 4 .5 mg/dL [facility] Potassium [Moles/Vol] 4.9 mmol/L 3.7 - 5.3 mmol/L [facility] Sodium [Moles/Vol] 140 mmol/L 135 - 144 mmol/L [facility] Urea nitrogen (BldV) [Mass/Vol] 18 mg/dL 6 - 20 mg/dL [facility] Urea nitrogen/Creatinine (Bld) [Mass ratio] 12 9 - 20 [facility] Lamotrigine Levelon 03-30-20 22 Lamotrigine Lvl 8.6 ug/mL 3.0 - 15.0 ug/mL [facility] Comment on above: Neither a therapeutic or toxic range for Lamotrigine have been well established. Some reports suggest a target for steady-state concentrations of 3 - 15 ug/mL. However, there is not a clear relationship between lamotrigine serum concentrations and clinical response. The assay should be used in conjunction with information available from clinical evaluations and other diagnostic procedures. Multiple measurements of lamotrigine may be needed. [facility] CBC with Auto Differentialon 02-24-2022 Absolute Eos # 0.14 [facility] Absolute Immature Granulocyte <0.03 [facility] Absolute Lymph # 3.41 [facility] alth Absolute [place] # 0.57 [facility] lt Basophils (Bld) [#/Vol] 0.04 10*3/uL [facility] Basophils/100 WBC (Bld) 1 % 0 - 2 % [facility] Eosinophils/100 WBC (Bld) 2 % 1 - 4 % [facility] Hematocrit (Bld) [Volume fraction] 42.6 % 40.7 - 50.3 % [facility] Hemoglobin.gastrointe stinal spec 1 Ql (Stl) 14.1 g/dL 13.0 - 17.0 g/dL [facility] Immature granulocytes/100 WBC (Bld) 0 % 0 [facility] Lymphocytes/100 WBC (Bld) 42 % 24 - 43 % [facility] MCH (RBC) [Entitic mass] 31.1 pg 25.2 - 33.5 pg [facility] MCHC (RBC) [Mass/Vol] 33.1 g/dL 28.4 - 34.8 g/dL [facility] MCV (RBC) [Entitic vol] 93.8 fL 82.6 - 102.9 fL [facility] Monocytes/100 WBC (Bld) 7 % 3 - 12 % [facility] NRBC Automated 0.0 0.0 per 100 WBC [facility] Platelet distribution width (Bld) [Ratio] 12.5 % 11.8 - 14.4 % [facility] Platelet mean volume (Bld) [Entitic vol] 9.8 fL 8.1 - 13.5 fL [facility] Platelets (Bld) [#/Vol] 248 10*3/uL [facility] RBC (Bld) [#/Vol] 4.54 10*6/uL 4.21 - 5.7 7 m/uL [facility] Segmented neutrophils/100 WBC (Bld) 48 % 36 - 65 % [facility] [#/Vol] 8.2 10*3/uL [facility] Laboratory - Chemistry and C hemistry - challengeon 02-24-2022 GFR/1.73 sq M.predicted MDRD (S/P/Bld) [Vol rate/Area] [facility] Comment on above: Average GFR for 50-5 9 years old: 93 mL/min/1.73sq m Chronic Kidney Disease: <60 mL/min/1.73sq m Kidney failure: <15 mL/min/1.73sq m eGFR calculated using average adult body mass. Additional eGFR calculator available at: http://[email or web address].[email or web address]/multiple_crcl_2012.htm Stage 1: Some kidney damage normal GFR Stage 2: Mild kidney damage GFR 60-89 Stage 3: Moderate kidney damage GFR 30-59 Stage 4: Severe kidney damage GFR 15-29 Stage 5: Severe kidney damage GFR <15 ESRD - chronic treatment by dialysis or transplant Renal Function Panelon 02-24 Albumin [Mass/Vol] 4.3 g/dL 3.5 - 5.2 g/dL [facility] Anion gap [Moles/Vol] 8 mmol/L Low 9 - 17 mmol/L [facility] Calcium [Mass/Vol] 10.1 mg/dL 8.6 - 10. 4 mg/dL [facility] Chloride [Moles/Vol] 104 mmol/L 98 - 10 7 mmol/L [facility] CO2 [Moles/Vol] 26 mmol/L 20 - 31 mmol/L [facility] Creatinine [Mass/Vol] 1.54 mg/dL High 0.70 - 1.20 mg/dL [facility] GFR 57 mL/min Low >60 [facility] GFR Non- 47 mL/min Low >60 [facility] Glucose [Mass/Vol] 95 mg/dL 70 - 99 mg/dL [facility] Interpretation and review of laboratory results Abnormal [facility] Phosphate [Mass/Vol] 2.7 mg/dL 2.5 - 4 .5 mg/dL [facility] Potassium [Moles/Vol] 4.1 mmol/L 3.7 - 5.3 mmol/L [facility] Sodium [Moles/Vol] 138 mmol/L 135 - 144 mmol/L [facility] Urea nitrogen (BldV) [Mass/Vol] 14 mg/dL 6 - 20 mg/dL [facility] Urea nitrogen/Creatinine (Bld) [Mass ratio] 9 [facility] CBC with Auto Differentialon 01-27-2022 Absolute Eos # 0.42 [facility] Absolute Immature Granulocyte <0.03 [facility] Absolute Lymph # 3.31 [facility] Absolute [place] # 0.66 [facility] Basophils (Bld) [#/Vol] 0.04 10*3/uL [facility] Basophils/100 WBC (Bld) 1 % 0 - 2 % [facility] Eosinophils/100 WBC (Bld) 6 % High 1 - 4 % [facility] Hematocrit (Bld) [Volume fraction] 43.8 % 40.7 - 50.3 % [facility] Hemoglobin.gastrointe stinal spec 1 Ql (Stl) 14.0 g/dL 13.0 - 17.0 g/dL [facility] Immature granulocytes/100 WBC (Bld) 0 % 0 [facility] Interpretation and review of laboratory results Abnormal [facility] Lymphocytes/100 WBC (Bld) 44 % High 24 - 43 % [facility] MCH (RBC) [Entitic mass] 31.0 pg 25.2 - 33.5 pg [facility] MCHC (RBC) [Mass/Vol] 32.0 g/dL 28.4 - 34.8 g/dL [facility] MCV (RBC) [Entitic vol] 96.9 fL 82.6 - 102.9 fL [facility] Monocytes/100 WBC (Bld) 9 % 3 - 12 % [facility] NRBC Automated 0.0 0.0 per 100 WBC [facility] Platelet distribution width (Bld) [Ratio] 12.5 % 11.8 - 14.4 % [facility] Platelet mean volume (Bld) [Entitic vol] 9.2 fL 8.1 - 13.5 fL [facility] Platelets (Bld) [#/Vol] 262 10*3/uL [facility] RBC (Bld) [#/Vol] 4.52 10*6/uL 4.21 - 5.7 7 m/uL [facility] Segmented neutrophils/100 WBC (Bld) 40 % 36 - 65 % [facility] [#/Vol] 7.3 10*3/uL [facility] Laboratory - Chemistry and C hemistry - challengeon 01-27-2022 GFR/1.73 sq M.predicted MDRD (S/P/Bld) [Vol rate/Area] [facility] Comment on above: Average GFR for 50-5 9 years old: 93 mL/min/1.73sq m Chronic Kidney Disease: <60 mL/min/1.73sq m Kidney failure: <15 mL/min/1.73sq m eGFR calculated using average adult body mass. Additional eGFR calculator available at: http://www.Sepior.Unsubscribe.com/multiple_crcl_2011.htm Stage 1: Some kidney damage normal GFR Stage 2: Mild kidney damage GFR 60-89 Stage 3: Moderate kidney damage GFR 30-59 Stage 4: Severe kidney damage GFR 15-29 Stage 5: Severe kidney damage GFR <15 ESRD - chronic treatment by dialysis or transplant Renal Function Panelon 01-27 Albumin [Mass/Vol] 3.9 g/dL 3.5 - 5.2 g/dL [facility] Anion gap [Moles/Vol] 7 mmol/L Low 9 - 17 mmol/L [facility] [employer] Calcium [Mass/Vol] 9.9 mg/dL 8.6 - 10. 4 mg/dL [facility] Chloride [Moles/Vol] 105 mmol/L 98 - 10 7 mmol/L [facility] CO2 [Moles/Vol] 28 mmol/L 20 - 31 mmol/L [facility] Creatinine [Mass/Vol] 1.45 mg/dL High 0.70 - 1.20 mg/dL [facility] GFR >60 >60 mL/min [facility] GFR Non- 50 mL/min Low >60 [facility] Glucose [Mass/Vol] 92 mg/dL 70 - 99 mg/dL [facility] Interpretation and review of laboratory results Abnormal [facility] [employer] Phosphate [Mass/Vol] 3.2 mg/dL 2.5 - 4 .5 mg/dL [facility] Potassium [Moles/Vol] 4.0 mmol/L 3.7 - 5.3 mmol/L [facility] Sodium [Moles/Vol] 140 mmol/L 135 - 144 mmol/L [facility] Urea nitrogen (BldV) [Mass/Vol] 17 mg/dL 6 - 20 mg/dL [facility] Urea nitrogen/Creatinine (Bld) [Mass ratio] 12 [facility] No Panel Informationon 01-20 [facility] y 250 DO Work Phone: CT HEAD WO CONon 01-02-2022 CT HEAD WO CON EXAMINATION: CT HEAD WO CON, 01/02/2022 9:29 AM EDT HISTORY: UNSPECIFIED INJURY OF HEAD, INITIAL ENCOUNTER , head trauma, laceration COMPARISON: 08/09/2018 TECHNIQUE: CT scan of the head was performed without IV contrast. CT dose reduction technique was used, including Automated Exposure Control. FINDINGS: BRAIN: No acute mass hemorrhage or infarct. Mild white matter hypoattenuation, chronic small vessel ischemic changes are favored CSF SPACES: No hydrocephalus, subarachnoid hemorrhage, or mass. Appropriate for age. SKULL: Remote right parietal craniotomy with overlying soft tissue attenuation. Soft tissue swelling right occipital scalp SINUSES: No significant mucosal thickening or fluid on the limited views. ORBITS: No appreciable abnormality on the limited views. OTHER: Negative IMPRESSION: Right occipital scalp injury No acute intracranial abnormality Electronically authenticated by: AIXA CARLSON Date: 2022-01-02 10:16 Normal [facility] CBC with Auto Differentialon 12-16-2021 Absolute Eos # 0.40 [facility] th Absolute Immature Granulocyte <0.03 [facility] Absolute Lymph # 4.34 High [facility] Absolute [place] # 0.76 [facility] Basophils (Bld) [#/Vol] 0.04 10*3/uL [facility] [employer] Basophils/100 WBC (Bld) 1 % 0 - 2 % [facility] Eosinophils/100 WBC (Bld) 5 % High 1 - 4 % [facility] Hematocrit (Bld) [Volume fraction] 45.1 % 40.7 - 50.3 % [facility] Hemoglobin.gastrointe stinal spec 1 Ql (Stl) 14.2 g/dL 13.0 - 17.0 g/dL [facility] [employer] Immature granulocytes/100 WBC (Bld) 0 % 0 [facility] [employer] Interpretation and review of laboratory results Abnormal [facility] [employer] Lymphocytes/100 WBC (Bld) 54 % High 24 - 43 % [facility] [employer] MCH (RBC) [Entitic mass] 30.7 pg 25.2 - 33.5 pg [facility] MCHC (RBC) [Mass/Vol] 31.5 g/dL 28.4 - 34.8 g/dL [facility] MCV (RBC) [Entitic vol] 97.6 fL 82.6 - 102.9 fL [facility] [employer] Monocytes/100 WBC (Bld) 10 % 3 - 12 % [facility] [employer] NRBC Automated 0.0 0.0 per 100 WBC [facility] [employer] Platelet distribution width (Bld) [Ratio] 12.7 % 11.8 - 14.4 % [facility] Platelet mean volume (Bld) [Entitic vol] 9.6 fL 8.1 - 13.5 fL [facility] [employer] Platelets (Bld) [#/Vol] 252 10*3/uL [facility] [employer] RBC (Bld) [#/Vol] 4.62 10*6/uL 4.21 - 5.7 7 m/uL [facility] [employer] Segmented neutrophils/100 WBC (Bld) 30 % Low 36 - 65 % [facility] [employer] Segs Absolute 2.40 [facility] h WBC (Bld) [#/Vol] 8.0 10*3/uL [facility] Laboratory - Chemistry and C hemistry - challengeon 12-16-2021 GFR/1.73 sq M.predicted MDRD (S/P/Bld) [Vol rate/Area] [facility] Comment on above: Average GFR for 50-5 9 years old: 93 mL/min/1.73sq m Chronic Kidney Disease: <60 mL/min/1.73sq m Kidney failure: <15 mL/min/1.73sq m eGFR calculated using average adult body mass. Additional eGFR calculator available at: http://www.Habeas/multiple_crcl_2012.htm Stage 1: Some kidney damage normal GFR Stage 2: Mild kidney damage GFR 60-89 Stage 3: Moderate kidney damage GFR 30-59 Stage 4: Severe kidney damage GFR 15-29 Stage 5: Severe kidney damage GFR <15 ESRD - chronic treatment by dialysis or transplant Renal Function Panelon 12-16 Albumin [Mass/Vol] 4 g/dL 3.5 - 5.2 g/dL [facility] Anion gap [Moles/Vol] 9 mmol/L 9 - 17 mmol/L [facility] Calcium [Mass/Vol] 9.8 mg/dL 8.6 - 10. 4 mg/dL [facility] Chloride [Moles/Vol] 107 mmol/L 98 - 10 7 mmol/L [facility] CO2 [Moles/Vol] 26 mmol/L 20 - 31 mmol/L [facility] Creatinine [Mass/Vol] 1.54 mg/dL High 0.70 - 1.20 mg/dL [facility] GFR 57 mL/min Low >60 [facility] GFR Non- 47 mL/min Low >60 [facility] Glucose [Mass/Vol] 95 mg/dL 70 - 99 mg/dL [facility] Interpretation and review of laboratory results Abnormal [facility] Phosphate [Mass/Vol] 3.6 mg/dL 2.5 - 4 .5 mg/dL [facility] Potassium [Moles/Vol] 4.4 mmol/L 3.7 - 5.3 mmol/L [facility] Sodium [Moles/Vol] 142 mmol/L 135 - 144 mmol/L [facility] Urea nitrogen (BldV) [Mass/Vol] 17 mg/dL 6 - 20 mg/dL [facility] Urea nitrogen/Creatinine (Bld) [Mass ratio] 11 [facility] Office Visit (Cardiology)on 12-09-2021 Follow-up visit Diagnoses/Problems Assessed History of Kidney transplantation cadaveric History of Hernia repair No illicit drug use Essential hypertension, benign (401.1) (I10) DVT (deep venous thrombosis) (453.40) (I82.409) Hyperlipidemia (272.4) (E78.5) Renal transplant recipient (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.0) (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) Seizure (780.39) (R56.9) Never a smoker Overweight with body mass index (BMI) of 26 to 26.9 in adult (278.02,V85.22) (E66.3,Z68.26) Orders Essential hypertension, benign, Hyperlipidemia, Seizure IO EKG Electrocardiogram- 12 Lead; Status:Complete; Done: 09Dec2021 Tilt Table; Status:Hold For - Scheduling,Retrospective Authorization; Requested for:09Dec2021; Overweight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 Immature granulocytes/100 WBC (Bld) 0 % 0 [employer] Work Phone: Interpretation and review of laboratory results Abnormal [employer] Phone: Lymphocytes/100 WBC (Bld) 46 % High 24 - 43 % [employer] Work Phone: MCH (RBC) [Entitic mass] 29.3 pg 25.2 - 33.5 pg [employer] Work Phone: MCHC (RBC) [Mass/Vol] 31.1 g/dL 28.4 - 34.8 g/dL [employer] Phone: MCV (RBC) [Entitic vol] 94.2 fL 82.6 - 102.9 fL [employer] Phone: Monocytes/100 WBC (Bld) 8 % 3 - 12 % [employer] Phone: NRBC Automated 0.0 0.0 per 100 WBC [employer] Phone: Platelet distribution width (Bld) [Ratio] 14.6 % High 11.8 - 14.4 % [employer] Phone: Platelet Estimate NOT REPORTED [employer] Phone: Platelet mean volume (Bld) [Entitic vol] 8.5 fL 8.1 - 13.5 fL [employer] Phone: Platelets (Bld) [#/Vol] 506 10*3/uL High [employer] Phone: RBC (Bld) [#/Vol] 4.47 10*6/uL 4.21 - 5.7 7 m/uL [employer] Phone: RBC (Bld) [#/Vol] NOT REPORTED [employer] Phone: Segmented neutrophils/100 WBC (Bld) 41 % 36 - 65 % [employer] Phone: Segs Absolute [employer] Work Phone: WBC (Bld) [#/Vol] 9.5 10*3/uL [employer] Phone: WBC (Bld) [#/Vol] NOT REPORTED [employer] Phone: Laboratory - Chemistry and C hemistry - challengeOrdered By: Julia Kwon on 02-19-2021 GFR/1.73 sq M.predicted MDRD (S/P/Bld) [Vol rate/Area] [employer] Phone: Comment on above: Average GFR for 50-5 9 years old: 93 mL/min/1.73sq m Chronic Kidney Disease: <60 mL/min/1.73sq m Kidney failure: <15 mL/min/1.73sq m eGFR calculated using average adult body mass. Additional eGFR calculator available at: http://www.Habeas/multiple_crcl_2012.htm Stage 1: Some kidney damage normal GFR Stage 2: Mild kidney damage GFR 60-89 Stage 3: Moderate kidney damage GFR 30-59 Stage 4: Severe kidney damage GFR 15-29 Stage 5: Severe kidney damage GFR <15 ESRD - chronic treatment by dialysis or transplant Renal Function PanelOrdered By: Julia Kwon on 02-19-2021 Albumin [Mass/Vol] 3.5 g/dL 3.5 - 5.2 g/dL [employer] Phone: Anion gap [Moles/Vol] 9 mmol/L 9 - 17 mmol/L [employer] Phone: Calcium [Mass/Vol] 11.0 mg/dL High 8.6 - 10. 4 mg/dL [employer] Phone: Chloride [Moles/Vol] 105 mmol/L 98 - 10 7 mmol/L [employer] Phone: CO2 [Moles/Vol] 26 mmol/L 20 - 31 mmol/L [employer] Phone: Creatinine [Mass/Vol] 1.52 mg/dL High 0.70 - 1.20 mg/dL [employer] Phone: GFR 58 mL/min Low >60 [employer] Phone: GFR Non- 48 mL/min Low >60 [employer] Phone: Glucose [Mass/Vol] 114 mg/dL High 70 - 99 mg/dL [employer] Phone: Interpretation and review of laboratory results Abnormal [employer] Phone: Phosphate [Mass/Vol] 3.1 mg/dL 2.5 - 4 .5 mg/dL [employer] Phone: Potassium [Moles/Vol] 4.7 mmol/L 3.7 - 5.3 mmol/L [employer] Phone: Sodium [Moles/Vol] 140 mmol/L 135 - 144 mmol/L [employer] Phone: Urea nitrogen (BldV) [Mass/Vol] 17 mg/dL 6 - 20 mg/dL [employer] Phone: Urea nitrogen/Creatinine (Bld) [Mass ratio] 11 [employer] Phone: Anion GapOrdered By: Cassandra Bangura on 02-07-2021 Anion gap [Moles/Vol] 10.0 mmol/L 8.0 - 16.0 meq/L [employer] Phone: Comment on above: ANION GAP = Sodium - (Chloride + CO2) Performed at [facility] [address] [place] [address] Basic Metabolic PanelOrdered By: Cassandra Bangura on 02-07-2021 Calcium [Mass/Vol] 10.3 mg/dL 8.5 - 10. 5 mg/dL [employer] Phone: Comment on above: Performed at [facility] [address] [place] [address] Chloride [Moles/Vol] 102 mmol/L 98 - 11 1 meq/L [employer] Phone: CO2 [Moles/Vol] 25 mmol/L 23 - 33 meq/L [employer] Phone: Creatinine [Mass/Vol] 1.1 mg/dL 0.4 - 1.2 mg/dL [employer] Phone: Glucose [Mass/Vol] 93 mg/dL 70 - 108 mg/dL [employer] Phone: Potassium [Moles/Vol] 5.2 mmol/L 3.5 - 5.2 meq/L [employer] Phone: Sodium [Moles/Vol] 137 mmol/L 135 - 145 meq/L [employer] Phone: Urea nitrogen (BldV) [Mass/Vol] 15 mg/dL 7 - 22 mg/dL [employer] Work Phone: CBCOrdered By: Cassandra ocampo on 02-07-2021 Erythrocyte distribution width (RBC) [Ratio] 13.7 % 11.5 - 14.5 % [facility] [place] Work Phone: Erythrocyte distribution width (RBC) [Ratio] 46.5 fL High 35.0 - 45.0 fL [employer] Work Phone: Hematocrit (Bld) [Volume fraction] 39.6 % Low 42.0 - 52.0 % [employer] Work Phone: Hemoglobin.gastrointe stinal spec 1 Ql (Stl) 12.3 Low [facility] [employer] Work Phone: MCH (RBC) [Entitic mass] 28.5 pg 26.0 - 33.0 pg [facility] [employer] Work Phone: MCHC (RBC) [Mass/Vol] 31.1 g/dL Low [facility] [employer] Work Phone: MCV (RBC) [Entitic vol] 91.9 fL 80.0 - 94.0 fL [facility] [employer] Work Phone: Platelet mean volume (Bld) [Entitic vol] 8.4 fL Low 9.4 - 12.4 fL [facility] [place] Work Phone: Comment on above: Performed at [facility] [address] [place] [address] Platelets (Bld) [#/Vol] 492 10*3/uL High [employer] Work Phone: RBC (Bld) [#/Vol] 4.31 10*6/uL Low [facility] [employer] Work Phone: WBC (Bld) [#/Vol] 10.0 10*3/uL [facility] [place] Work Phone: Glomerular Filtration Rate, EstimatedOrdered By: Cassandra Bangura on 02-07-2021 GFR/1.73 sq M.predicted MDRD (S/P/Bld) [Vol rate/Area] 69 mL/min/{1.73_m2} Abnormal ml/min/1.73m 2 [employer] Phone: Comment on above: Stage Description GF R, ml/min/1.73 m2 - At increased risk > or = 60 (with chronic kidney disease risk factors) 1 Normal or increased GFR > or = 90 2 Mildly or decreased GFR 60 - 89 3 Moderately decreased GFR 30 - 59 4 Severely decreased GFR 15 - 29 5 Kidney failure <15 (or dialysis) Estimated GFR calculated using abbreviated MDRD formula as recommended by National Kidney Foundation. Calculation based upon serum creatinine and adjusted for age, gender & race. Sarah. Internal Med., Vol. 139 (2) pg 137-147. Performed at [facility] [address] [place] [address] No Panel InformationOrdered By: Cassandra Bangura on 02-07-2021 Interpretation and review of laboratory results Abnormal [employer] Phone: APTTOrdered By: Zacarias alcaraz on 02-06-2021 aPTT Coag (Bld) [Time] 81.[address] [facility] [employer] Phone: Comment on above: Therapeutic Heparin Reference Range= 60-95 seconds (corresponds to 0.3 to 0.7 u/mL Anti-Xa factor activity) Performed at [facility] [address] [place] [address] Interpretation and review of laboratory results Abnormal [employer] Phone: IR VENOGRAM LOWER EXTREMITY BILATERALOrdered By: Cassandra Bangura on 02-06-2021 Radiology exam is complete. No Radiologist dictation. Please follow up with ordering provider. [employer] Phone: POCT activated clotting time Ordered By: Cassandra Bangura on 02-06-2021 Activated Clotting Time 268 High [employer] Phone: Comment on above: Performed at [facility] [address] [place] [address] Interpretation and review of laboratory results Abnormal [employer] Phone: Activated Clotting Time 164 [facility] [employer] Phone: Comment on above: Performed at [facility] [address] [place] [address] Interpretation and review of laboratory results Abnormal [employer] Phone: APTTOrdered By: Cassandra vazquez on 02-05-2021 aPTT Coag (Bld) [Time] 75.[address] [facility] [employer] Phone: Comment on above: Therapeutic Heparin Reference Range= 60-95 seconds (corresponds to 0.3 to 0.7 u/mL Anti-Xa factor activity) Performed at [facility] [address] [place] [address] Interpretation and review of laboratory results Abnormal [employer] Phone: APTTOrdered By: Zacarias alcaraz on 02-05-2021 aPTT Coag (Bld) [Time] 70.[address] [facility] [employer] Phone: Comment on above: Therapeutic Heparin Reference Range= 60-95 seconds (corresponds to 0.3 to 0.7 u/mL Anti-Xa factor activity) Performed at [facility] [address] [place] [address] Interpretation and review of laboratory results [employer] Phone: Anion GapOrdered By: Luiz son on 02-05-2021 Anion gap [Moles/Vol] 11.0 mmol/L 8.0 - 16.0 meq/L [employer] Phone: Comment on above: ANION GAP = Sodium - (Chloride + CO2) Performed at [facility] [address] [place] [address] Basic Metabolic PanelOrdered By: Luiz Guzman on 02-05-2021 Calcium [Mass/Vol] 9.2 mg/dL 8.5 - 10. 5 mg/dL [employer] Phone: Comment on above: Performed at [facility] [address] [place] [address] Chloride [Moles/Vol] 101 mmol/L 98 - 11 1 meq/L [employer] Phone: CO2 [Moles/Vol] 23 mmol/L 23 - 33 meq/L [facility] Phone: Creatinine [Mass/Vol] 1 mg/dL 0.4 - 1.2 mg/dL [employer] Phone: Glucose [Mass/Vol] 107 mg/dL 70 - 108 mg/dL [employer] Phone: Potassium [Moles/Vol] 4.2 mmol/L 3.5 - 5.2 meq/L [employer] Phone: Sodium [Moles/Vol] 135 mmol/L 135 - 145 meq/L [employer] Phone: Urea nitrogen (BldV) [Mass/Vol] 13 mg/dL 7 - 22 mg/dL [employer] Phone: CBCOrdered By: Cassandra ocampo on 02-05-2021 Erythrocyte distribution width (RBC) [Ratio] 13.4 % 11.5 - 14.5 % [employer] Phone: Erythrocyte distribution width (RBC) [Ratio] 45.3 fL High 35.0 - 45.0 fL [employer] Phone: Hematocrit (Bld) [Volume fraction] 38.1 % Low 42.0 - 52.0 % [employer] Phone: Hemoglobin.gastrointe stinal spec 1 Ql (Stl) 11.8 Low [facility] Phone: Interpretation and review of laboratory results Abnormal [facility] Phone: MCH (RBC) [Entitic mass] 28.7 pg 26.0 - 33.0 pg [employer] Phone: MCHC (RBC) [Mass/Vol] 31.0 g/dL Low [facility] [employer] Work Phone: MCV (RBC) [Entitic vol] 92.7 fL 80.0 - 94.0 fL [employer] Phone: Platelet mean volume (Bld) [Entitic vol] 8.8 fL Low 9.4 - 12.4 fL [employer] Phone: Comment on above: Performed at [facility] [address] [place] [address] Platelets (Bld) [#/Vol] 461 10*3/uL High [employer] Phone: RBC (Bld) [#/Vol] 4.11 10*6/uL Low [employer] Phone: WBC (Bld) [#/Vol] 10.8 10*3/uL [employer] Phone: Glomerular Filtration Rate, EstimatedOrdered By: Luiz Guzman on 02-05-2021 GFR/1.73 sq M.predicted MDRD (S/P/Bld) [Vol rate/Area] 78 mL/min/{1.73_m2} Abnormal ml/min/1.73m 2 [employer] Phone: Comment on above: Stage Description GF R, ml/min/1.73 m2 - At increased risk > or = 60 (with chronic kidney disease risk factors) 1 Normal or increased GFR > or = 90 2 Mildly or decreased GFR 60 - 89 3 Moderately decreased GFR 30 - 59 4 Severely decreased GFR 15 - 29 5 Kidney failure <15 (or dialysis) Estimated GFR calculated using abbreviated MDRD formula as recommended by National Kidney Foundation. Calculation based upon serum creatinine and adjusted for age, gender & race. Sarah. Internal Med., Vol. 139 (2) pg 137-147. Performed at [facility] [address] [place] [address] Interpretation and review of laboratory results Abnormal [employer] Phone: APTTOrdered By: Zacarias alcaraz on 02-04-2021 aPTT Coag (Bld) [Time] 56 s High [employer] Phone: Comment on above: Therapeutic Heparin Reference Range= 60-95 seconds (corresponds to 0.3 to 0.7 u/mL Anti-Xa factor activity) Performed at [facility] [address] [place] [address] Interpretation and review of laboratory results Abnormal [employer] Phone: aPTT Coag (Bld) [Time] 61.7 s High [employer] Phone: Comment on above: Therapeutic Heparin Reference Range= 60-95 seconds (corresponds to 0.3 to 0.7 u/mL Anti-Xa factor activity) Performed at [facility] [address] [place] [address] Interpretation and review of laboratory results Abnormal [employer] Phone: Anion GapOrdered By: Luiz son on 02-04-2021 Anion gap [Moles/Vol] 10.0 mmol/L 8.0 - 16.0 meq/L [employer] Phone: Comment on above: ANION GAP = Sodium - (Chloride + CO2) Performed at [facility] [address] [place] [address] Basic Metabolic PanelOrdered By: Luiz Guzman on 02-04-2021 Calcium [Mass/Vol] 9.4 mg/dL 8.5 - 10. 5 mg/dL [employer] Phone: Comment on above: Performed at [facility] [address] [place] [address] Chloride [Moles/Vol] 101 mmol/L 98 - 11 1 meq/L [employer] Phone: CO2 [Moles/Vol] 22 mmol/L Low 23 - 33 meq/L [employer] Phone: Creatinine [Mass/Vol] 1.1 mg/dL 0.4 - 1.2 mg/dL [employer] Phone: Glucose [Mass/Vol] 115 mg/dL High 70 - 108 mg/dL [employer] Phone: Sodium [Moles/Vol] 133 mmol/L Low 135 - 145 meq/L [employer] Phone: Urea nitrogen (BldV) [Mass/Vol] 16 mg/dL 7 - 22 mg/dL [employer] Phone: CBC auto differentialOrdered By: Zacarias Martin on 02-04-2021 Basophils (Bld) [#/Vol] 0.0 10*3/uL [employer] Phone: Basophils/100 WBC (Bld) 0.3 % [facility] Phone: Eosinophils Absolute 0.2 [facility] [facility] Work Phone: Eosinophils/100 WBC (Bld) 1.9 % [facility] Phone: Erythrocyte distribution width (RBC) [Ratio] 13.3 % 11.5 - 14.5 % [facility] Phone: Erythrocyte distribution width (RBC) [Ratio] 45 fL 35.0 - 45.0 fL [facility] Phone: Hematocrit (Bld) [Volume fraction] 37.9 % Low 42.0 - 52.0 % [facility] Phone: Hemoglobin.gastrointe stinal spec 1 Ql (Stl) 11.9 Low [facility] [employer] Phone: Immature Grans (Abs) 0.07 [facility] Phone: Immature granulocytes/100 WBC (Bld) 0.6 % [facility] Phone: Interpretation and review of laboratory results Abnormal [facility] Phone: Lymphocytes Absolute 4.1 [facility] [place] [facility] Work Phone: Lymphocytes/100 WBC (Bld) 36.4 % [facility] [employer] Phone: MCH (RBC) [Entitic mass] 28.7 pg 26.0 - 33.0 pg [facility] [place] Work Phone: MCHC (RBC) [Mass/Vol] 31.4 g/dL Low [facility] [employer] Work Phone: MCV (RBC) [Entitic vol] 91.3 fL 80.0 - 94.0 fL [employer] Phone: Monocytes Absolute 1.1 [employer] Work Phone: Monocytes/100 WBC (Bld) 9.9 % [employer] Work Phone: nRBC 0 /100 wbc [employer] Work Phone: Comment on above: Performed at [facility] [address] [place] [address] Platelet mean volume (Bld) [Entitic vol] 8.7 fL Low 9.4 - 12.4 fL [employer] Phone: Platelets (Bld) [#/Vol] 424 10*3/uL High [employer] Work Phone: RBC (Bld) [#/Vol] 4.15 10*6/uL Low [employer] Work Phone: Segmented neutrophils/100 WBC (Bld) 50.9 % [employer] Work Phone: Segs Absolute 5[employer] Work Phone: WBC (Bld) [#/Vol] 11.3 10*3/uL High [employer] Work Phone: Glomerular Filtration Rate, EstimatedOrdered By: Luiz Guzman on 02-04-2021 GFR/1.73 sq M.predicted MDRD (S/P/Bld) [Vol rate/Area] 69 mL/min/{1.73_m2} Abnormal ml/min/1.73m 2 [employer] Work Phone: Comment on above: Stage Description GF R, ml/min/1.73 m2 - At increased risk > or = 60 (with chronic kidney disease risk factors) 1 Normal or increased GFR > or = 90 2 Mildly or decreased GFR 60 - 89 3 Moderately decreased GFR 30 - 59 4 Severely decreased GFR 15 - 29 5 Kidney failure <15 (or dialysis) Estimated GFR calculated using abbreviated MDRD formula as recommended by National Kidney Foundation. Calculation based upon serum creatinine and adjusted for age, gender & race. Sarah. Internal Med., Vol. 139 (2) pg 137-147. Performed at [facility] [address] [place] [address] Laboratory - Chemistry and C hemistry - challengeOrdered By: Zacarias Martin on 02-04-2021 Potassium [Moles/Vol] 4.3 mmol/L 3.5 - 5.2 meq/L [employer] Phone: Comment on above: Performed at [facility] [address] [place] [address] No Panel InformationOrdered By: Luiz Guzman on 02-04-2021 Interpretation and review of laboratory results Abnormal [employer] Phone: APTTOrdered By: Zacarias alcaraz on 02-03-2021 aPTT Coag (Bld) [Time] 59.[address] [facility] [employer] Phone: Comment on above: Therapeutic Heparin Reference Range= 60-95 seconds (corresponds to 0.3 to 0.7 u/mL Anti-Xa factor activity) Performed at [place] [address] Interpretation and review of laboratory results Abnormal [employer] Phone: APTTOrdered By: Curry Salazar on 02-03-2021 aPTT Coag (Bld) [Time] 61.[address] [facility] [employer] Phone: Comment on above: Therapeutic Heparin Reference Range= 60-95 seconds (corresponds to 0.3 to 0.7 u/mL Anti-Xa factor activity) Performed at [facility] [address] [place] [address] Interpretation and review of laboratory results Abnormal [employer] Phone: Anion GapOrdered By: Luiz son on 02-03-2021 Anion gap [Moles/Vol] 9.0 mmol/L 8.0 - 16.0 meq/L [employer] Phone: Comment on above: ANION GAP = Sodium - (Chloride + CO2) Performed at [facility] [address] [place] [address] Basic Metabolic PanelOrdered By: Luiz Guzman on 02-03-2021 Calcium [Mass/Vol] 9.6 mg/dL 8.5 - 10. 5 mg/dL [employer] Work Phone: Comment on above: Performed at [facility] [address] [place] [address] Chloride [Moles/Vol] 102 mmol/L 98 - 11 1 meq/L [employer] Work Phone: CO2 [Moles/Vol] 23 mmol/L 23 - 33 meq/L [employer] Work Phone: Creatinine [Mass/Vol] 0.9 mg/dL 0.4 - 1.2 mg/dL [employer] Work Phone: Glucose [Mass/Vol] 107 mg/dL 70 - 108 mg/dL [employer] Phone: Potassium [Moles/Vol] 4.4 mmol/L 3.5 - 5.2 meq/L [employer] Work Phone: Sodium [Moles/Vol] 134 mmol/L Low 135 - 145 meq/L [employer] Work Phone: Urea nitrogen (BldV) [Mass/Vol] 17 mg/dL 7 - 22 mg/dL [employer] Phone: Basic Metabolic Panel w/ Ref leola to MGOrdered By: Zacarias Martin on 02-03-2021 Potassium [Moles/Vol] 4.4 mmol/L 3.5 - 5.2 meq/L [employer] Phone: Comment on above: Performed at [facility] [address] [place] [address] CBC auto differentialOrdered By: Zacarias Martin on 02-03-2021 Basophils (Bld) [#/Vol] 0.0 10*3/uL [employer] Work Phone: Basophils/100 WBC (Bld) 0.3 % [employer] Work Phone: Eosinophils Absolute 0.2 [employer] Work Phone: Eosinophils/100 WBC (Bld) 1.3 % [facility] [employer] Work Phone: Erythrocyte distribution width (RBC) [Ratio] 13.4 % 11.5 - 14.5 % [facility] [employer] Work Phone: Erythrocyte distribution width (RBC) [Ratio] 45.5 fL High 35.0 - 45.0 fL [facility] [place] Work Phone: Hematocrit (Bld) [Volume fraction] 38.1 % Low 42.0 - 52.0 % [facility] [place] Work Phone: Hemoglobin.gastrointe stinal spec 1 Ql (Stl) 12.1 Low [facility] [employer] Work Phone: Immature Grans (Abs) 0.07 [facility] [place] Work Phone: Immature granulocytes/100 WBC (Bld) 0.5 % [facility] [place] Work Phone: Interpretation and review of laboratory results Abnormal [employer] Work Phone: Lymphocytes Absolute 4.4 [facility] [place] Work Phone: Lymphocytes/100 WBC (Bld) 34.1 % [facility] [employer] Work Phone: MCH (RBC) [Entitic mass] 29.2 pg 26.0 - 33.0 pg [facility] [employer] Work Phone: MCHC (RBC) [Mass/Vol] 31.8 g/dL Low [facility] [employer] Work Phone: MCV (RBC) [Entitic vol] 92.0 fL 80.0 - 94.0 fL [facility] [employer] Work Phone: Monocytes Absolute 1.4 High [facility] [employer] Work Phone: Monocytes/100 WBC (Bld) 10.5 % [facility] [employer] Work Phone: nRBC 0 /100 wbc [facility] [place] Work Phone: Comment on above: Performed at [facility] [address] [place] [address] Platelet mean volume (Bld) [Entitic vol] 9.0 fL Low 9.4 - 12.4 fL [employer] Phone: Platelets (Bld) [#/Vol] 378 10*3/uL [employer] Work Phone: RBC (Bld) [#/Vol] 4.14 10*6/uL Low [employer] Work Phone: Segmented neutrophils/100 WBC (Bld) 53.3 % [employer] Work Phone: Segs Absolute 6[employer] Work Phone: WBC (Bld) [#/Vol] 12.9 10*3/uL High [employer] Phone: Culture, MRSA, ScreeningOrde red By: Jim Clements on 02-03-2021 MRSA DNA ARINA+probe Ql (Unsp spec) No MRSA isolated [employer] Phone: Source: rectal Site: Current Antibiotics: not stated [employer] Phone: Glomerular Filtration Rate, EstimatedOrdered By: Luiz Guzman on 02-03-2021 GFR/1.73 sq M.predicted MDRD (S/P/Bld) [Vol rate/Area] 88 mL/min/{1.73_m2} Abnormal ml/min/1.73m 2 [employer] Phone: Comment on above: Stage Description GF R, ml/min/1.73 m2 - At increased risk > or = 60 (with chronic kidney disease risk factors) 1 Normal or increased GFR > or = 90 2 Mildly or decreased GFR 60 - 89 3 Moderately decreased GFR 30 - 59 4 Severely decreased GFR 15 - 29 5 Kidney failure <15 (or dialysis) Estimated GFR calculated using abbreviated MDRD formula as recommended by National Kidney Foundation. Calculation based upon serum creatinine and adjusted for age, gender & race. Sarah. Internal Med., Vol. 139 (2) pg 137-147. Performed at [facility] [address] [place] [address] No Panel InformationOrdered By: Luiz Guzman on 02-03-2021 Interpretation and review of laboratory results Abnormal [employer] Phone: APTTOrdered By: Curry Salazar on 02-02-2021 aPTT Coag (Bld) [Time] 74.[address] [facility] [employer] Phone: Comment on above: Therapeutic Heparin Reference Range= 60-95 seconds (corresponds to 0.3 to 0.7 u/mL Anti-Xa factor activity) Performed at [facility] [address] [place] [address] Interpretation and review of laboratory results Abnormal [employer] Phone: aPTT Coag (Bld) [Time] 97.3 s [employer] Phone: Comment on above: Therapeutic Heparin Reference Range= 60-95 seconds (corresponds to 0.3 to 0.7 u/mL Anti-Xa factor activity) Performed at [facility] [address] [place] [address] Interpretation and review of laboratory results Abnormal [employer] Phone: APTTOrdered By: Ernesto Hodges on 02-02-2021 aPTT Coag (Bld) [Time] 90.[address] [facility] [employer] Phone: Comment on above: Therapeutic Heparin Reference Range= 60-95 seconds (corresponds to 0.3 to 0.7 u/mL Anti-Xa factor activity) Performed at [facility] [address] [place] [address] Interpretation and review of laboratory results Abnormal [employer] Phone: aPTT Coag (Bld) [Time] 49.[address] [facility] [employer] Phone: Comment on above: Therapeutic Heparin Reference Range= 60-95 seconds (corresponds to 0.3 to 0.7 u/mL Anti-Xa factor activity) Performed at [facility] [address] [place] [address] Interpretation and review of laboratory results Abnormal [employer] Phone: APTTOrdered By: Zacarias alcaraz on 02-02-2021 aPTT Coag (Bld) [Time] 63.9 s High [employer] Phone: Comment on above: Therapeutic Heparin Reference Range= 60-95 seconds (corresponds to 0.3 to 0.7 u/mL Anti-Xa factor activity) Performed at [facility] [address] [place] [address] Interpretation and review of laboratory results Abnormal [employer] Phone: Anion GapOrdered By: Zacarias rothman on 02-02-2021 Anion gap [Moles/Vol] 10.0 mmol/L 8.0 - 16.0 meq/L [employer] Phone: Comment on above: ANION GAP = Sodium - (Chloride + CO2) Performed at [facility] [address] [place] [address] Basic Metabolic Panel w/ Ref leola to MGOrdered By: Zacarias Martin on 02-02-2021 Calcium [Mass/Vol] 9.8 mg/dL 8.5 - 10. 5 mg/dL [employer] Phone: Comment on above: Performed at [facility] [address] [place] [address] Chloride [Moles/Vol] 100 mmol/L 98 - 11 1 meq/L [employer] Phone: CO2 [Moles/Vol] 25 mmol/L 23 - 33 meq/L [employer] Phone: Creatinine [Mass/Vol] 1.1 mg/dL 0.4 - 1.2 mg/dL [employer] Phone: Glucose [Mass/Vol] 114 mg/dL High 70 - 108 mg/dL [employer] Phone: Interpretation and review of laboratory results Abnormal [employer] Phone: Potassium [Moles/Vol] 4.4 mmol/L 3.5 - 5.2 meq/L [employer] Phone: Sodium [Moles/Vol] 135 mmol/L 135 - 145 meq/L [employer] Phone: Urea nitrogen (BldV) [Mass/Vol] 17 mg/dL 7 - 22 mg/dL [employer] Phone: CBC auto differentialOrdered By: Zacarias Martin on 02-02-2021 Basophils (Bld) [#/Vol] 0.1 10*3/uL [employer] Phone: Basophils/100 WBC (Bld) 0.4 % [employer] Phone: Eosinophils Absolute 0.2 [employer] Work Phone: Eosinophils/100 WBC (Bld) 1.3 % [employer] Phone: Erythrocyte distribution width (RBC) [Ratio] 13.2 % 11.5 - 14.5 % [employer] Phone: Erythrocyte distribution width (RBC) [Ratio] 45 fL 35.0 - 45.0 fL [employer] Phone: Hematocrit (Bld) [Volume fraction] 39.9 % Low 42.0 - 52.0 % [employer] Phone: Hemoglobin.gastrointe stinal spec 1 Ql (Stl) 12.6 Low [employer] Phone: Immature Grans (Abs) 0.05 [facility] [place] Work Phone: Immature granulocytes/100 WBC (Bld) 0.4 % [employer] Phone: Interpretation and review of laboratory results Abnormal [employer] Phone: Lymphocytes Absolute 4.0 [employer] Phone: Lymphocytes/100 WBC (Bld) 30.4 % [employer] Phone: MCH (RBC) [Entitic mass] 29.2 pg 26.0 - 33.0 pg [employer] Phone: MCHC (RBC) [Mass/Vol] 31.6 g/dL Low [facility] Work Phone: MCV (RBC) [Entitic vol] 92.6 fL 80.0 - 94.0 fL [facility] [employer] Work Phone: Monocytes Absolute 1.4 High [facility] [employer] Work Phone: Monocytes/100 WBC (Bld) 10.4 % [employer] Work Phone: nRBC 0 /100 wbc [employer] Work Phone: Comment on above: Performed at [facility] [address] [place] [address] Platelet mean volume (Bld) [Entitic vol] 8.8 fL Low 9.4 - 12.4 fL [employer] Work Phone: Platelets (Bld) [#/Vol] 349 10*3/uL [employer] Work Phone: RBC (Bld) [#/Vol] 4.31 10*6/uL Low [employer] Work Phone: Segmented neutrophils/100 WBC (Bld) 57.1 % [employer] Work Phone: Segs Absolute 7.5 [facility] [employer] Work Phone: WBC (Bld) [#/Vol] 13.2 10*3/uL High [employer] Work Phone: Cult,Funguson 02-02-2021 Cult,Fungus Specimen Description .PLEURAL FLUID LEFT Special Requests NOT REPORTED Culture NO GROWTH 28 DAYS Report Status FINAL 02/02/2021 Normal [facility] Comment on above: Performed By: #### F C ####[employer] [place], [place] [id number] lab Director: Simeon Abraham MD Echo CompleteOrdered By: Tiffanie Chen on 02-02-2021 Transthoracic Echocardiography Report (TTE) Demographics Patient Name SIOMARA ROSS Gender Male G MR # [id number] Race Ethnicity Room Number 0024 Date of Study 02/02/2021 Number Date of 1965 Referring Kenroy Chen MD Physician Age 56 year(s) Office Nurse Practitioner Zain Pratt, RDCS, RDMS, RVT Interpreting Kenroy Chen MD Physician Procedure Type of Study TTE procedure:ECHOCARDIOGRAM COMPLETE 2D W DOPPLER W COLOR. Procedure Date Date: 02/02/2021 Start: 02:01 PM Study Location: Bedside Technical Quality: Limited visualization due to lung interface. Indications:Pulmonary embolus. Additional Medical History:bilateral pulmonary embolism, deep venous thrombosis, fever, hypertension, hyperlipidemia, hypothyroidism, kidney transplant Patient Status: Routine Height: 70 inches Weight: 175 pounds BSA: 1.97 m^2 BMI: 25.11 kg/m^2 BP: 134/82 mmHg Conclusions Summary Ejection fraction is visually estimated at 60%. Overall left ventricular function is normal. Signature Findings Mitral Valve The mitral valve structure was normal with normal leaflet separation. DOPPLER: The transmitral velocity was within the normal range with no evidence for mitral stenosis. There was no evidence of mitral regurgitation. Aortic Valve The aortic valve was trileaflet with normal thickness and cuspal separation. DOPPLER: Transaortic velocity was within the normal range with no evidence of aortic stenosis. There was no evidence of aortic regurgitation. Tricuspid Valve Trivial tricuspid regurgitation visualized. Pulmonic Valve The pulmonic valve was not well visualized . Trivial pulmonic regurgitation visualized. Left Atrium Left atrial size was normal. Left Ventricle Ejection fraction is visually estimated at 60%. Overall left ventricular function is normal. Right Atrium Right atrial size was normal. Right Ventricle The right ventricular size was normal with normal systolic function and wall thickness. Pericardial Effusion The pericardium was normal in appearance with no evidence of a pericardial effusion. Pleural Effusion No evidence of pleural effusion. Aorta / Great Vessels -Aortic root dimension within normal limits. -The Pulmonary artery is within normal limits. -IVC size is within normal limits with normal respiratory phasic changes. M-Mode/2D Measurements & Calculations LV Diastolic LV Systolic Dimension: AV Cusp Separation: 1.7 cmLA Dimension: 4.6 3.3 cm Dimension: 2.2 cmAO Root cm LV Volume Diastolic: 97.3 Dimension: 2.4 cmLA Area: 20.9 LV FS:28.3 % ml cm^2 LV PW LV Volume Systolic: 44.1 Diastolic: 1.1 ml cm LV EDV/LV EDV Index: 97.3 Septum ml/49 m^2LV ESV/LV ESV RV Diastolic Dimension: 2.5 cm Diastolic: 0.8 Index: 44.1 ml/22 m^2 cm EF Calculated: 54.7 % LA/Aorta: 0.92 Ascending Aorta: 3.1 cm LA volume/Index: 59.3 ml /30m^2 Doppler Measurements & Calculations MV Peak E-Wave: 74.6 cm/s MV Peak Gradient: 2.23 mmHg TV Peak E-Wave: 60 cm/s TV Peak A-Wave: 46.3 cm/s MV Deceleration Time: 232 msec TV Peak Gradient: 1.44 mmHg PV Peak Velocity: 70.7 cm/s PV Peak Gradient: 2 mmHg [id number] [employer] Work Phone: Jose, [facility] Incoming Cardiovascular Orders To [facility] - 02/02/2021 3:44 PM EDT Transthoracic Echocardiography Report (TTE) Demographics Patient Name SIOMARA ROSS Gender Male Anthony MR # [id number] Race Ethnicity Room Number 0024 Date of Study 02/02/2021 Number Date of 1965 Referring Kenroy Chen MD Physician Age 56 year(s) Office Nurse Practitioner Zain Pratt, RDCS, RDMS, RVT Interpreting Kenroy Chen MD Physician Procedure Type of Study TTE procedure:ECHOCARDIOGRAM COMPLETE 2D W DOPPLER W COLOR. Procedure Date Date: 02/02/2021 Start: 02:01 PM Study Location: Bedside Technical Quality: Limited visualization due to lung interface. Indications:Pulmonary embolus. Additional Medical History:bilateral pulmonary embolism, deep venous thrombosis, fever, hypertension, hyperlipidemia, hypothyroidism, kidney transplant Patient Status: Routine Height: 70 inches Weight: 175 pounds BSA: 1.97 m^2 BMI: 25.11 kg/m^2 BP: 134/82 mmHg Conclusions Summary Ejection fraction is visually estimated at 60%. Overall left ventricular function is normal. Signature Findings Mitral Valve The mitral valve structure was normal with normal leaflet separation. DOPPLER: The transmitral velocity was within the normal range with no evidence for mitral stenosis. There was no evidence of mitral regurgitation. Aortic Valve The aortic valve was trileaflet with normal thickness and cuspal separation. DOPPLER: Transaortic velocity was within the normal range with no evidence of aortic stenosis. There was no evidence of aortic regurgitation. Tricuspid Valve Trivial tricuspid regurgitation visualized. Pulmonic Valve The pulmonic valve was not well visualized . Trivial pulmonic regurgitation visualized. Left Atrium Left atrial size was normal. Left Ventricle Ejection fraction is visually estimated at 60%. Overall left ventricular function is normal. Right Atrium Right atrial size was normal. Right Ventricle The right ventricular size was normal with normal systolic function and wall thickness. Pericardial Effusion The pericardium was normal in appearance with no evidence of a pericardial effusion. Pleural Effusion No evidence of pleural effusion. Aorta / Great Vessels -Aortic root dimension within normal limits. -The Pulmonary artery is within normal limits. -IVC size is within normal limits with normal respiratory phasic changes. M-Mode/2D Measurements & Calculations LV Diastolic LV Systolic Dimension: AV Cusp Separation: 1.7 cmLA Dimension: 4.6 3.3 cm Dimension: 2.2 cmAO Root cm LV Volume Diastolic: 97.3 Dimension: 2.4 cmLA Area: 20.9 LV FS:28.3 % ml cm^2 LV PW LV Volume Systolic: 44.1 Diastolic: 1.1 ml cm LV EDV/LV EDV Index: 97.3 Septum ml/49 m^2LV ESV/LV ESV RV Diastolic Dimension: 2.5 cm Diastolic: 0.8 Index: 44.1 ml/22 m^2 cm EF Calculated: 54.7 % LA/Aorta: 0.92 Ascending Aorta: 3.1 cm LA volume/Index: 59.3 ml /30m^2 Doppler Measurements & Calculations MV Peak E-Wave: 74.6 cm/s MV Peak Gradient: 2.23 mmHg TV Peak E-Wave: 60 cm/s TV Peak A-Wave: 46.3 cm/s MV Deceleration Time: 232 msec TV Peak Gradient: 1.44 mmHg PV Peak Velocity: 70.7 cm/s PV Peak Gradient: 2 mmHg [id number] [employer] Work Phone: Glomerular Filtration Rate, EstimatedOrdered By: Zacarias Martin on 02-02-2021 GFR/1.73 sq M.predicted MDRD (S/P/Bld) [Vol rate/Area] 69 mL/min/{1.73_m2} Abnormal ml/min/1.73m 2 [employer] Phone: Comment on above: Stage Description GF R, ml/min/1.73 m2 - At increased risk > or = 60 (with chronic kidney disease risk factors) 1 Normal or increased GFR > or = 90 2 Mildly or decreased GFR 60 - 89 3 Moderately decreased GFR 30 - 59 4 Severely decreased GFR 15 - 29 5 Kidney failure <15 (or dialysis) Estimated GFR calculated using abbreviated MDRD formula as recommended by National Kidney Foundation. Calculation based upon serum creatinine and adjusted for age, gender & race. Sarah. Internal Med., Vol. 139 (2) pg 137-147. Performed at [facility] [address] [place] [address] Interpretation and review of laboratory results Abnormal [employer] Phone: APTTOrdered By: Ernesto Hodges on 02-01-2021 aPTT Coag (Bld) [Time] 55.9 s [employer] Phone: Comment on above: Therapeutic Heparin Reference Range= 60-95 seconds (corresponds to 0.3 to 0.7 u/mL Anti-Xa factor activity) Performed at [facility] [address] [place] [address] Interpretation and review of laboratory results Abnormal [employer] Phone: aPTT Coag (Bld) [Time] 55.7 s [employer] Phone: Comment on above: Therapeutic Heparin Reference Range= 60-95 seconds (corresponds to 0.3 to 0.7 u/mL Anti-Xa factor activity) Performed at [facility] [address] [place] [address] Interpretation and review of laboratory results Abnormal [employer] Phone: APTTOrdered By: Zacarias alcaraz on 02-01-2021 aPTT Coag (Bld) [Time] 55.3 s [facility] [employer] Phone: Comment on above: Therapeutic Heparin Reference Range= 60-95 seconds (corresponds to 0.3 to 0.7 u/mL Anti-Xa factor activity) Performed at [place] [address] Interpretation and review of laboratory results Abnormal [employer] Phone: MRSA by PCROrdered By: Jim Clements on 02-01-2021 MRSA SCREEN RT-PCR Negative [employer] Phone: Comment on above: No MRSA detected by Real Time - Polymerase Chain Reaction[place] [address] TroponinOrdered By: Zacarias cho on 02-01-2021 Troponin T < 0.010 ng/ml [employer] Phone: Comment on above: <0.010 ng/ml Normal > or = 0.010 ng/ml Elevated (99%) Consistent with myocardial damage Cardiac troponin values can be elevated by many disease states in addition to acute ischemia. These include, but are not limited to: chronic renal failure, CHF, CVA, pulmonary embolus, COPD, myocardial trauma/surgery, myocarditis, pericarditis, tachycardia, aortic dissection, amyloidosis, sepsis and strenuous exercise. Serial measurement of troponin is strongly recommended as a first step in determining whether a low level elevation represents an acute or chronic condition[place] [address] VRE Screen by PCROrdered By: Jim Clements on 02-01-2021 Vancomycin Resistant Enterococcus Negative [employer] Phone: Comment on above: No VRE (Van A gene) detected by Real Time - Polymerase Chain Reaction[place] [address] APTTOrdered By: Lottie Sanchez on 01-31-2021 aPTT Coag (Bld) [Time] 38.9 s High [employer] Phone: Comment on above: Therapeutic Heparin Reference Range= 60-95 seconds (corresponds to 0.3 to 0.7 u/mL Anti-Xa factor activity) [place] [address] Interpretation and review of laboratory results Abnormal [employer] Phone: APTTOrdered By: Shital dumont on 01-31-2021 aPTT Coag (Bld) [Time] 28.6 s [employer] Work Phone: Comment on above: IV Heparin Therapy Range: 62.0-94.0 aPTT Coag (Bld) [Time] 33.8 s [employer] Phone: Comment on above: IV Heparin Therapy Range: 62.0-94.0 Brain Natriuretic PeptideOrd ered By: Shital Fry on 01-31-2021 BNP Interpretation Pro-BNP Reference Range: [employer] Phone: Comment on above: Rule Out: <300 Hung Zone: Age <50 300-450 Age 50-75 300-900 Age >75 300-1800 Usually represents mild to moderate HF but other cardiopulmonary causes cannot be ruled out. Rule In: Age <50 >450 Age 50-75 >900 Age >75 >1800 Natriuretic peptide B (Bld) [Mass/Vol] 97 pg/mL <300 [employer] Phone: Comment on above: Pro-BNP results myrna ot be compared to BNP results. C-reactive proteinOrdered By : Shital Fry on 01-31-2021 CRP [Mass/Vol] 137.4 mg/L High 0.0 - 5.0 mg/L [employer] Phone: Interpretation and review of laboratory results Abnormal [employer] Phone: CBC Auto DifferentialOrdered By: Shital Fry on 01-31-2021 Absolute Eos # 0.21 Dtime [facility] Work Phone: Absolute Immature Granulocyte 0.04 [employer] Work Phone: Absolute Lymph # 1.37 [facility] Work Phone: Absolute [place] # 1.35 High [employer] [facility] Work Phone: Basophils (Bld) [#/Vol] 0.04 10*3/uL [employer] Work Phone: Basophils/100 WBC (Bld) 0 % 0 - 2 % [employer] Phone: Differential Type NOT REPORTED [employer] Phone: Eosinophils/100 WBC (Bld) 2 % 1 - 4 % [employer] Phone: Hematocrit (Bld) [Volume fraction] 42.4 % 40.7 - 50.3 % [employer] Phone: Hemoglobin.gastrointe stinal spec 1 Ql (Stl) 13.3 g/dL 13.0 - 17.0 g/dL [employer] Phone: Immature granulocytes/100 WBC (Bld) 0 % 0 [employer] Phone: Interpretation and review of laboratory results Abnormal [employer] Phone: Lymphocytes/100 WBC (Bld) 13 % Low 24 - 43 % [employer] Phone: MCH (RBC) [Entitic mass] 29.3 pg 25.2 - 33.5 pg [employer] Phone: MCHC (RBC) [Mass/Vol] 31.4 g/dL 28.4 - 34.8 g/dL [employer] Phone: MCV (RBC) [Entitic vol] 93.4 fL 82.6 - 102.9 fL [employer] Phone: Monocytes/100 WBC (Bld) 13 % High 3 - 12 % [employer] Phone: NRBC Automated 0.0 0.0 per 100 WBC [employer] Phone: Platelet distribution width (Bld) [Ratio] 13.2 % 11.8 - 14.4 % [employer] Phone: Platelet Estimate NOT REPORTED [employer] Phone: Platelet mean volume (Bld) [Entitic vol] 9.0 fL 8.1 - 13.5 fL [employer] Phone: Platelets (Bld) [#/Vol] 284 10*3/uL [employer] Phone: RBC (Bld) [#/Vol] 4.54 10*6/uL 4.21 - 5.7 7 m/uL [employer] Phone: RBC (Bld) [#/Vol] NOT REPORTED [employer] Phone: Segmented neutrophils/100 WBC (Bld) 72 % High 36 - 65 % [employer] Phone: [employer] Work Phone: WBC (Bld) [#/Vol] 10.5 10*3/uL [employer] Phone: WBC (Bld) [#/Vol] NOT REPORTED [employer] Phone: CT CHEST PULMONARY EMBOLISM W CONTRASTOrdered By: Shital Fry on 01-31-2021 Scattered segmental and subsegmental emboli bilaterally. No convincing evidence of pulmonary infarction. Borderline right heart strain within RV to LV ratio of 1.0. Trace left pleural effusion. [employer] Phone: EXAMINATION: CTA OF THE CHEST 01/31/2021 1:01 pm TECHNIQUE: CTA of the chest was performed after the administration of intravenous contrast. Multiplanar reformatted images are provided for review. MIP images are provided for review. Dose modulation, iterative reconstruction, and/or weight based adjustment of the mA/kV was utilized to reduce the radiation dose to as low as reasonably achievable. COMPARISON: None. HISTORY: ORDERING SYSTEM PROVIDED HISTORY: large lower ext dvt, tachycardia TECHNOLOGIST PROVIDED HISTORY: large lower ext dvt, tachycardia Decision Support Exception->Emergency Medical Condition (MA) FINDINGS: Pulmonary Arteries: Pulmonary arteries are adequately opacified for evaluation. Scattered segmental and subsegmental emboli identified within the right middle lobe, right lower lobe, right upper lobe, and lingula. Borderline right heart strain within RV to LV ratio of approximately 1.0.. Mediastinum: Retroesophageal right subclavian artery. No pericardial fluid collection. Lungs/pleura: Trace left pleural effusion and bibasilar atelectasis. No focal airspace consolidation or pneumothorax. Central airways are patent and clear. Upper Abdomen: Limited images of the upper abdomen are unremarkable. Soft Tissues/Bones: No acute bone or soft tissue abnormality. [employer] Phone: Jose, [facility] Incoming Radiant Results From [email or web address] - 01/31/2021 1:36 PM EDT EXAMINATION: CTA OF THE CHEST 01/31/2021 1:01 pm TECHNIQUE: CTA of the chest was performed after the administration of intravenous contrast. Multiplanar reformatted images are provided for review. MIP images are provided for review. Dose modulation, iterative reconstruction, and/or weight based adjustment of the mA/kV was utilized to reduce the radiation dose to as low as reasonably achievable. COMPARISON: None. HISTORY: ORDERING SYSTEM PROVIDED HISTORY: large lower ext dvt, tachycardia TECHNOLOGIST PROVIDED HISTORY: large lower ext dvt, tachycardia Decision Support Exception->Emergency Medical Condition (MA) FINDINGS: Pulmonary Arteries: Pulmonary arteries are adequately opacified for evaluation. Scattered segmental and subsegmental emboli identified within the right middle lobe, right lower lobe, right upper lobe, and lingula. Borderline right heart strain within RV to LV ratio of approximately 1.0.. Mediastinum: Retroesophageal right subclavian artery. No pericardial fluid collection. Lungs/pleura: Trace left pleural effusion and bibasilar atelectasis. No focal airspace consolidation or pneumothorax. Central airways are patent and clear. Upper Abdomen: Limited images of the upper abdomen are unremarkable. Soft Tissues/Bones: No acute bone or soft tissue abnormality. IMPRESSION: Scattered segmental and subsegmental emboli bilaterally. No convincing evidence of pulmonary infarction. Borderline right heart strain within RV to LV ratio of 1.0. Trace left pleural effusion. [employer] Phone: Comprehensive Metabolic Pane lOrdered By: Shital Fry on 01-31-2021 Albumin [Mass/Vol] 3.3 g/dL Low 3.5 - 5.2 g/dL [employer] Phone: Albumin/Globulin [Mass ratio] 0.9 {ratio} Low [employer] Phone: ALP (Bld) [Catalytic activity/Vol] 176 U/L High 40 - 129 U/L [employer] Phone: ALT [Catalytic activity/Vol] 24 U/L 5 - 41 U/L [employer] Phone: Anion gap [Moles/Vol] 10 mmol/L 9 - 17 mmol/L [employer] Phone: AST [Catalytic activity/Vol] 20 U/L <40 [employer] Phone: Bilirubin [Mass/Vol] 0.36 mg/dL 0.3 - 1 .2 mg/dL [employer] Phone: Calcium [Mass/Vol] 10.3 mg/dL 8.6 - 10. 4 mg/dL [employer] Phone: Chloride [Moles/Vol] 103 mmol/L 98 - 10 7 mmol/L [employer] Phone: CO2 [Moles/Vol] 24 mmol/L 20 - 31 mmol/L [employer] Phone: Creatinine [Mass/Vol] 1.23 mg/dL High 0.70 - 1.20 mg/dL [employer] Phone: Free PSA/Total PSA [Mass fraction] 7.0 g/dL 6.4 - 8.3 g/dL [employer] Phone: GFR >60 >60 mL/min [employer] Phone: GFR Non- >60 >60 mL/min [employer] Phone: Glucose [Mass/Vol] 142 mg/dL High 70 - 99 mg/dL [employer] Phone: Interpretation and review of laboratory results Abnormal [employer] Phone: Potassium [Moles/Vol] 4.3 mmol/L 3.7 - 5.3 mmol/L [employer] Phone: Sodium [Moles/Vol] 137 mmol/L 135 - 144 mmol/L [employer] Phone: Urea nitrogen (BldV) [Mass/Vol] 20 mg/dL 6 - 20 mg/dL [employer] Phone: Urea nitrogen/Creatinine (Bld) [Mass ratio] 16 [employer] Phone: Laboratory - Chemistry and C hemistry - challengeOrdered By: Shital Fry on 01-31-2021 GFR/1.73 sq M.predicted MDRD (S/P/Bld) [Vol rate/Area] [employer] Phone: Comment on above: Average GFR for 50-5 9 years old: 93 mL/min/1.73sq m Chronic Kidney Disease: <60 mL/min/1.73sq m Kidney failure: <15 mL/min/1.73sq m eGFR calculated using average adult body mass. Additional eGFR calculator available at: http://www.Habeas/multiple_crcl_2012.htm Stage 1: Some kidney damage normal GFR Stage 2: Mild kidney damage GFR 60-89 Stage 3: Moderate kidney damage GFR 30-59 Stage 4: Severe kidney damage GFR 15-29 Stage 5: Severe kidney damage GFR <15 ESRD - chronic treatment by dialysis or transplant Lactic Acid, PlasmaOrdered B y: Shital Fry on 01-31-2021 Lactate [Moles/Vol] 1.2 mmol/L 0.5 - 2. 2 mmol/L [employer] Phone: Lactic Acid, Whole Blood NOT REPORTED 0.7 - 2.1 mmol/L [employer] Phone: Sedimentation RateOrdered By : Shital Fry on 01-31-2021 Interpretation and review of laboratory results Abnormal [employer] Phone: Sed Rate 58 mm High 0 - 20 mm [employer] Phone: TroponinOrdered By: Shital dior on 01-31-2021 Interpretation and review of laboratory results Abnormal [facility] [place] Work Phone: Troponin Interp NOT REPORTED [facility] Work Phone: Troponin T NOT REPORTED <0.03 ng/mL [facility] Work Phone: Troponin, High Sensitivity 25 ng/L High 0 - 22 ng/L [facility] [employer] Work Phone: Comment on above: High Sensitivity Troponin values cannot be compared with other Troponin methodologies. Patients with high levels of Biotin oral intake (i.e >5mg/day) may have falsely decreased Troponin levels. Samples collected within 8 hours of biotin intake may require additional information for diagnosis. VL DUP LOWER EXTREMITY VENOU S LEFTOrdered By: Shital Fry on 01-31-2021 Jose, [facility] Incoming Cardio Results From [facility] - 01/31/2021 1:18 PM EDT [facility] Vascular Lower Extremities DVT Study Procedure Patient Name SIOMARA Date of Study 01/31/2021 VANDANA Cruz Date of 1965 Gender Male Age 56 year(s) Race Room Number 05 Corporate ID [id number] # Patient Acct [id number] # MR # [id number] Office Nurse Practitioner Jeff Godfrey RVT Interpreting Physician Pedro Harrell DO Referring Referring Physician Shital Fry PA-C Nurse Practitioner Procedure Type of Study: Veins: Lower Extremities DVT Study, Venous Scan Lower Left. Indications for Study:Pain, leg and Leg Swelling. Patient Status:ER. Technical Quality:Adequate visualization. - Critical Result:Shital Fry PA-C 01/31/2021 @ 1238. Conclusions Signature Findings: Right Impression: Left Impression: The common femoral vein Common femoral, femoral, deep femoral, popliteal, is fully compressible tibials, peroneal, and saphenous veins were with normal doppler evaluated. responses. The common femoral, deep femoral, femoral, popliteal, posterior tibial, peroneal, and gastroc veins were non compressible with homogeneous echoes noted throughout, with no flow demonstrated. Findings suggest DVT. The GSV is non compressible at the SFJ and most proximal thigh, with homogeneous echoes throughout. Finding is likely an extension of the patient's DVT. The GSV is compressible from the proximal/mid thigh to the distal calf. The SSV is fully compressible. Findings of this examination was relayed to the ER by the technologist shortly after imaging. Velocities are measured in cm/s ; Diameters are measured in cm Right Lower Extremities DVT Study Measurements Right 2D Measurements + + + +------- --- + !Location !Visualized!Compressibil ity!Thrombosis! + + + +------- --- + !Common Femoral !Yes !Yes !None ! + + + +------- --- + Right Doppler Measurements + ----+------+------+----- --- + !Location !Signal!Reflux!Reflux (msec) ! + ----+------+------+----- --- + !Common Femoral !Phasic! ! ! + ----+------+------+----- --- + !Prox Femoral !Phasic! ! ! + ----+------+------+----- --- + !Popliteal !Phasic! ! ! + ----+------+------+----- --- + Left Lower Extremities DVT Study Measurements Left 2D Measurements + + + +------- --- + !Location !Visualized!Compressibil ity!Thrombosis! + + + +------- --- + !Common Femoral !Yes !No !Acute ! + + + +------- --- + !Prox Femoral !Yes !No !Acute ! + + + +------- --- + !Mid Femoral !Yes !No !Acute ! + + + +------- --- + !Dist Femoral !Yes !No !Acute ! + + + +------- --- + !Deep Femoral !Yes !No !Acute ! + + + +------- --- + !Popliteal !Yes !No !Acute ! + + + +------- --- + !Sapheno Femoral Junction !Yes !No !Acute ! + + + +------- --- + !PTV !Yes !No !Acute ! + + + +------- --- + !Peroneal !Yes !No !Acute ! + + + +------- --- + !Gastroc !Yes !No !Acute ! + + + +------- --- + !GSV Thigh !Yes !No !Acute ! + + + +------- --- + !GSV Knee !Yes !Yes !None ! + + + +------- --- + !GSV Ankle !Yes !Yes !None ! + + + +------- --- (more content not included)... [employer] Work Phone: Consent for COVID Vaccineon 01-29-2021 SARS-CoV-2 (COVID-19) RNA [facility] [id number] :127 Normal [facility] XR CHEST (2 VW)on 01-22-2021 XR CHEST (2 VW) EXAMINATION: TWO XRAY VIEWS OF THE CHEST 01/22/2021 1:36 pm COMPARISON: None available HISTORY: ORDERING SYSTEM PROVIDED HISTORY: Pneumothorax, unspecified type TECHNOLOGIST PROVIDED HISTORY: s/p thoracotomy FINDINGS: Normal cardiopericardial silhouette There is a moderate left basilar opacity. Minimal streaky right basilar density. Otherwise clear lungs. No definite pneumothorax Subacute fractures of the left 2nd 3rd and possibly 1st anterior ribs IMPRESSION: Mild left basilar opacity likely related to small left effusion and streaky basilar atelectasis without definite pneumothorax Interpreted by: Svetlana Bowling MD Signed by: Svetlana Bowling MD 01/22/21 Final result Normal [facility] XR CHEST (2 VW)Ordered By: Raji Chahal on 01-22-2021 Mild left basilar opacity likely related to small left effusion and streaky basilar atelectasis without definite pneumothorax [employer] Phone: EXAMINATION: TWO XRA Y VIEWS OF THE CHEST 01/22/2021 1:36 pm COMPARISON: None available HISTORY: ORDERING SYSTEM PROVIDED HISTORY: Pneumothorax, unspecified type TECHNOLOGIST PROVIDED HISTORY: s/p thoracotomy FINDINGS: Normal cardiopericardial silhouette There is a moderate left basilar opacity. Minimal streaky right basilar density. Otherwise clear lungs. No definite pneumothorax Subacute fractures of the left 2nd 3rd and possibly 1st anterior ribs [facility] Phone: Jose, pn Incoming Radiant Results From [email or web address] - 01/22/2021 2:05 PM EDT EXAMINATION: TWO XRAY VIEWS OF THE CHEST 01/22/2021 1:36 pm COMPARISON: None available HISTORY: ORDERING SYSTEM PROVIDED HISTORY: Pneumothorax, unspecified type TECHNOLOGIST PROVIDED HISTORY: s/p thoracotomy FINDINGS: Normal cardiopericardial silhouette There is a moderate left basilar opacity. Minimal streaky right basilar density. Otherwise clear lungs. 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 Mild cardiomegaly. Mediastinum and pulmonary vascular markings are normal. Right lung is clear. Stable pleuroparenchymal changes in the lower left chest no skeletal finding. IMPRESSION: No recurrent pneumothorax. Pleuroparenchymal changes in the lower left chest are stable. Interpreted by: Vandana Cason IV, MD Signed by: Vandana Cason IV, MD 01/09/21 Final result Normal [facility] EXAMINATION: ONE XRA Y VIEW OF THE CHEST 01/09/2021 5:54 am COMPARISON: 01/08/2021 radiograph HISTORY: ORDERING SYSTEM PROVIDED HISTORY: Recurrent pneumothorax s/p left VATS resection with pleurodesis TECHNOLOGIST PROVIDED HISTORY: Recurrent pneumothorax s/p left VATS resection with pleurodesis Reason for Exam: Upright port, Recurrent pneumo Acuity: Acute Type of Exam: Subsequent/Follow-up FINDINGS: No evidence of pneumothorax. Mild cardiomegaly. Mediastinum and pulmonary vascular markings are normal. Right lung is clear. Stable pleuroparenchymal changes in the lower left chest no skeletal finding. [facility] [employer] Work Phone: Jose, pn Incoming Radiant Results From [facility] - 01/09/2021 8:20 AM EDT EXAMINATION: ONE XRAY VIEW OF THE CHEST 01/09/2021 5:54 am COMPARISON: 01/08/2021 radiograph HISTORY: ORDERING SYSTEM PROVIDED HISTORY: Recurrent pneumothorax s/p left VATS resection with pleurodesis TECHNOLOGIST PROVIDED HISTORY: Recurrent pneumothorax s/p left VATS resection with pleurodesis Reason for Exam: Upright port, Recurrent pneumo Acuity: Acute Type of Exam: Subsequent/Follow-up FINDINGS: No evidence of pneumothorax. Mild cardiomegaly. Mediastinum and pulmonary vascular markings are normal. Right lung is clear. Stable pleuroparenchymal changes in the lower left chest no skeletal finding. IMPRESSION: No recurrent pneumothorax. Pleuroparenchymal changes in the lower left chest are stable. [employer] Phone: No recurrent pneumothorax. Pleuroparenchymal changes in the lower left chest are stable. [employer] Phone: XR CHEST PORTABLEon 01-09-20 XR CHEST PORTABLE EXAMINATION: ONE XRAY VIEW OF THE CHEST 01/08/2021 1:01 pm COMPARISON: Chest 01/08/2021 at 5:16 a.m. HISTORY: ORDERING SYSTEM PROVIDED HISTORY: post chest tube removal TECHNOLOGIST PROVIDED HISTORY: post chest tube removal Reason for Exam: upr FINDINGS: 1. No appreciable left pneumothorax following removal of 2 left pleural catheters. 2. Minimal left basilar subsegmental atelectasis and possible small volume pleural effusion. 3. Right lung appears clear. 4. Cardiomediastinal silhouette and hilar silhouettes appear unremarkable. 5. Wires and cardiac leads overlying the chest could obscure an underlying finding. IMPRESSION: 1. No appreciable left pneumothorax following removal of 2 left pleural catheters. 2. Minimal left basilar subsegmental atelectasis and possible small volume pleural effusion. 3. Right lung appears clear. Interpreted by: Rito Garcia MD Signed by: Rito Garcia MD 01/08/21 Final result Normal [facility] 1. No appreciable le ft pneumothorax following removal of 2 left pleural catheters. 2. Minimal left basilar subsegmental atelectasis and possible small volume pleural effusion. 3. Right lung appears clear. [employer] Phone: EXAMINATION: ONE XRA Y VIEW OF THE CHEST 01/08/2021 1:01 pm COMPARISON: Chest 01/08/2021 at 5:16 a.m. HISTORY: ORDERING SYSTEM PROVIDED HISTORY: post chest tube removal TECHNOLOGIST PROVIDED HISTORY: post chest tube removal Reason for Exam: upr FINDINGS: 1. No appreciable left pneumothorax following removal of 2 left pleural catheters. 2. Minimal left basilar subsegmental atelectasis and possible small volume pleural effusion. 3. Right lung appears clear. 4. Cardiomediastinal silhouette and hilar silhouettes appear unremarkable. 5. Wires and cardiac leads overlying the chest could obscure an underlying finding. [employer] Phone: Jose, [facility] Incoming Radiant Results From [employer] - 01/08/2021 1:57 PM EDT EXAMINATION: ONE XRAY VIEW OF THE CHEST 01/08/2021 1:01 pm COMPARISON: Chest 01/08/2021 at 5:16 a.m. HISTORY: ORDERING SYSTEM PROVIDED HISTORY: post chest tube removal TECHNOLOGIST PROVIDED HISTORY: post chest tube removal Reason for Exam: upr FINDINGS: 1. No appreciable left pneumothorax following removal of 2 left pleural catheters. 2. Minimal left basilar subsegmental atelectasis and possible small volume pleural effusion. 3. Right lung appears clear. 4. Cardiomediastinal silhouette and hilar silhouettes appear unremarkable. 5. Wires and cardiac leads overlying the chest could obscure an underlying finding. IMPRESSION: 1. No appreciable left pneumothorax following removal of 2 left pleural catheters. 2. Minimal left basilar subsegmental atelectasis and possible small volume pleural effusion. 3. Right lung appears clear. [employer] Phone: XR CHEST PORTABLE EXAMINATION: ONE XRAY VIEW OF THE CHEST 01/08/2021 6:03 am COMPARISON: 01/07/2021, 01/06/2021 HISTORY: ORDERING SYSTEM PROVIDED HISTORY: Recurrent pneumothorax s/p left VATS resection with pleurodesis TECHNOLOGIST PROVIDED HISTORY: Recurrent pneumothorax s/p left VATS resection with pleurodesis Reason for Exam: post left VATS upright port FINDINGS: Left chest tubes in place. No pneumothorax identified. Streaky linear opacities in the left lung base again demonstrated. No new airspace disease identified. The cardiac and mediastinal contours appear unchanged. IMPRESSION: Left chest tubes in place. No pneumothorax or new findings in the interval. Interpreted by: Jono Miller MD Signed by: Jono Miller MD 01/08/21 Final result Normal [facility] Left chest tubes in place. No pneumothorax or new findings in the interval. [employer] Phone: Jose, pn Incoming Radiant Results From [employer] - 01/08/2021 7:58 AM EDT EXAMINATION: ONE XRAY VIEW OF THE CHEST 01/08/2021 6:03 am COMPARISON: 01/07/2021, 01/06/2021 HISTORY: ORDERING SYSTEM PROVIDED HISTORY: Recurrent pneumothorax s/p left VATS resection with pleurodesis TECHNOLOGIST PROVIDED HISTORY: Recurrent pneumothorax s/p left VATS resection with pleurodesis Reason for Exam: post left VATS upright port FINDINGS: Left chest tubes in place. No pneumothorax identified. Streaky linear opacities in the left lung base again demonstrated. No new airspace disease identified. The cardiac and mediastinal contours appear unchanged. IMPRESSION: Left chest tubes in place. No pneumothorax or new findings in the interval. [employer] Phone: EXAMINATION: ONE XRA Y VIEW OF THE CHEST 01/08/2021 6:03 am COMPARISON: 01/07/2021, 01/06/2021 HISTORY: ORDERING SYSTEM PROVIDED HISTORY: Recurrent pneumothorax s/p left VATS resection with pleurodesis TECHNOLOGIST PROVIDED HISTORY: Recurrent pneumothorax s/p left VATS resection with pleurodesis Reason for Exam: post left VATS upright port FINDINGS: Left chest tubes in place. No pneumothorax identified. Streaky linear opacities in the left lung base again demonstrated. No new airspace disease identified. The cardiac and mediastinal contours appear unchanged. [employer] Phone: CBC WITH AUTO DIFFERENTIALon 01-07-2021 Basophils (Bld) [#/Vol] 0.09 10*3/uL [employer] Phone: Basophils/100 WBC (Bld) 1 % 0 - 2 % [employer] Phone: Differential Type NOT REPORTED [employer] Phone: Eosinophils (Bld) [#/Vol] 0.61 10*3/uL High [employer] Phone: Eosinophils/100 WBC (Bld) 5 % High 1 - 4 % [employer] Phone: Erythrocyte distribution width (RBC) [Ratio] 14.0 % 11.8 - 14.4 % [employer] Phone: Hematocrit (Bld) [Volume fraction] 38.9 % Low 40.7 - 50.3 % [employer] Phone: Hemoglobin (Bld) [Mass/Vol] 12.2 g/dL Low 13.0 - 17.0 g/dL [employer] Phone: Immature granulocytes (Bld) [#/Vol] 0.06 10*3/uL [employer] Phone: Immature granulocytes (Bld) [#/Vol] 1 % High 0 [employer] Phone: Interpretation and review of laboratory results Abnormal [employer] Phone: Lymphocytes (Bld) [#/Vol] 3.54 10*3/uL [employer] Phone: Lymphocytes/100 WBC (Bld) 31 % 24 - 43 % [employer] Phone: MCH (RBC) [Entitic mass] 30.2 pg 25.2 - 33.5 pg [employer] Phone: MCHC (RBC) [Mass/Vol] 31.4 g/dL 28.4 - 34.8 g/dL [employer] Phone: MCV (RBC) [Entitic vol] 96.3 fL 82.6 - 102.9 fL [employer] Phone: Monocytes (Bld) [#/Vol] 0.97 10*3/uL [employer] Phone: Monocytes/100 WBC (Bld) 8 % 3 - 12 % [employer] Phone: Platelet mean volume (Bld) [Entitic vol] 8.9 fL 8.1 - 13.5 fL [employer] Phone: Platelets (Bld) [#/Vol] NOT REPORTED [employer] Phone: Platelets (Bld) [#/Vol] 421 10*3/uL [employer] Phone: RBC (Bld) [#/Vol] 4.04 10*6/uL Low 4.21 - 5.7 7 m/uL [employer] Work Phone: RBC morphology finding Nom (Bld) NOT REPORTED [employer] Work Phone: Segmented neutrophils/100 WBC (Bld) 54 % 36 - 65 % [employer] Work Phone: [employer] Work Phone: WBC (Bld) [#/Vol] 11.6 10*3/uL High [employer] Work Phone: WBC (Bld) [#/Vol] 0.0 10*3/uL 0.0 per 10 0 WBC [employer] Work Phone: WBC Morphology NOT REPORTED [employer] [facility] Work Phone: CBC with Diffon 01-07-2021 Abs. Basophil 0.09 k/uL Normal 0.00-0.20 [facility] Comment on above: Performed By: #### A ANC #### [email or web address] [address] [place] [address] Registered Dietetic Technician: Simeon Abraham MD Performed By: #### C DP ####[facility] [address] [place] [id number] Lab Director: Simeon Abraham MD Abs.Imm.Granulocyte 0.06 k/uL Normal 0.00-0.30 [facility] Comment on above: Performed By: #### A ANC #### [email or web address] [address] [place] [address] Registered Dietetic Technician: Simeon Abraham MD Performed By: #### C DP ####[facility] [address] [place] [address] Lab Director: Simeon Abraham MD Abs.Neutrophil (Seg) 6.32 k/uL Normal 1.50-8.10 [facility] Comment on above: Performed By: #### A ANC #### [address] [address] Registered Dietetic Technician: Simeon Abraham MD Performed By: #### C DP ####[address] [address] Lab Director: Simeon Abraham MD Basophils/100 WBC (Bld) 1 % Normal 0-2 [facility] Comment on above: Performed By: #### A ANC #### [address] [address] Registered Dietetic Technician: Simeon Abraham MD Performed By: #### C DP ####[address] [address] Lab Director: Simeon Abraham MD Eosinophils (Bld) [#/Vol] 0.61 10*3/uL High 0.00-0.44 [facility] Comment on above: Performed By: #### A ANC #### [address] [address] Registered Dietetic Technician: Simeon Abraham MD Performed By: #### C DP ####[address] [phone] Director: Simeon Abraham MD Eosinophils/100 WBC (Bld) 5 % High 1-4 [facility] Comment on above: Performed By: #### A ANC #### [address] [address] Registered Dietetic Technician: Simeon Abraham MD Performed By: #### C DP ####[address] [address] Lab Director: Simeon Abraham MD Erythrocyte distribution width (RBC) [Ratio] 14.0 % Normal 11.8-14.4 [facility] Comment on above: Performed By: #### A ANC #### [address] [address] Registered Dietetic Technician: Simeon Abraham MD Performed By: #### C DP ####[address] [address] Lab Director: Simeon Abraham MD Hematocrit (Bld) [Volume fraction] 38.9 % Low 40.7-50.3 [facility] Comment on above: Performed By: #### A ANC #### [address] [address] Registered Dietetic Technician: Simeon Abraham MD Performed By: #### C DP ####[place], [place] [address])[phone] Director: Simeon Abraham MD Hemoglobin (Bld) [Mass/Vol] 12.2 g/dL Low 13.0-17.0 [facility] Comment on above: Performed By: #### A ANC #### [address] [address] Registered Dietetic Technician: Simeon Abraham MD Performed By: #### C DP ####[address] [phone] Director: Simeon Abraham MD Immature granulocytes (Bld) [#/Vol] 1 % High 0 [facility] Comment on above: Performed By: #### A ANC #### [address] [address] Registered Dietetic Technician: Simeon Abraham MD Immature granulocytes/100 WBC (Bld) 1 % High 0 [facility] Comment on above: Performed By: #### C DP ####[address] [address] Lab Director: Simeon Abraham MD Lymphocytes (Bld) [#/Vol] 3.54 10*3/uL Normal 1.10-3.70 [facility] Comment on above: Performed By: #### A ANC #### [address] [address] Registered Dietetic Technician: Simeon Abraham MD Performed By: #### C DP ####[address] [address] Lab Director: Simeon Abraham MD Lymphocytes/100 WBC (Bld) 31 % Normal 24-43 [facility] Comment on above: Performed By: #### A ANC #### [address] [address] Registered Dietetic Technician: Simeon Abraham MD Performed By: #### C DP ####[address] [address] Lab Director: Simeon Abraham MD MCH (RBC) [Entitic mass] 30.2 pg Normal 25.2-33.5 [facility] Comment on above: Performed By: #### A ANC #### [address] [address] Registered Dietetic Technician: Simeon Abraham MD Performed By: #### C DP ####[address] [address] Lab Director: Simeon Abraham MD MCHC (RBC) [Mass/Vol] 31.4 g/dL Normal 28.4-34.8 [facility] Comment on above: Performed By: #### A ANC #### [address] [address] Registered Dietetic Technician: Simeon Abraham MD Performed By: #### C DP ####[address] [address] Lab Director: Simeon Abraham MD MCV (RBC) [Entitic vol] 96.3 fL Normal 82.6-102.9 [facility] Comment on above: Performed By: #### A ANC #### [address] [address] Registered Dietetic Technician: Simeon Abrhaam MD Performed By: #### C DP ####[address] [phone] Director: Simeon Abraham MD Monocytes (Bld) [#/Vol] 0.97 10*3/uL Normal 0.10-1.20 [facility] Comment on above: Performed By: #### A ANC #### [address] [address] Registered Dietetic Technician: Simeon Abraham MD Performed By: #### C DP ####[address] [phone] Director: Simeon Abraham MD Monocytes/100 WBC (Bld) 8 % Normal 3-12 [facility] Comment on above: Performed By: #### A ANC #### [address] [address] Registered Dietetic Technician: Simeon Abraham MD Performed By: #### C DP ####[address] [phone] Director: Simeon Abraham MD Neutrophil (Seg) 54 % Normal 36-65 [facility] [place] Comment on above: Performed By: #### A ANC #### [address] [address] Registered Dietetic Technician: Simeon Abraham MD Performed By: #### C DP ####[address] [address] Lab Director: Simeon Abraham MD NRBC Automated 0.0 per 100 WBC Normal 0.0 [facility] Comment on above: Performed By: #### A ANC #### [address] [address] Registered Dietetic Technician: Simeon Abraham MD Performed By: #### C DP ####[address] [place], [place] [phone] Director: Simeon Abraham MD Platelet mean volume (Bld) [Entitic vol] 8.9 fL Normal 8.1-13.5 [facility] Comment on above: Performed By: #### A ANC #### [address] [address] Registered Dietetic Technician: Simeon Abraham MD Performed By: #### C DP ####[address] [phone] Director: Simeon Abraham MD Platelets (Bld) [#/Vol] 421 10*3/uL Normal 138-453 [facility] Comment on above: Performed By: #### A ANC #### [address] [address] Registered Dietetic Technician: Simeon Abraham MD Performed By: #### C DP ####[address] [phone] Director: Simeon Abraham MD RBC (Bld) [#/Vol] 4.04 10*6/uL Low 4.21-5.77 [facility] Comment on above: Performed By: #### A ANC #### [address] [address] Registered Dietetic Technician: Simeon Abraham MD Performed By: #### C DP ####[address] [phone] Director: Simeon Abraham MD WBC (Bld) [#/Vol] 11.6 10*3/uL High 3.5-11.3 [facility] Comment on above: Performed By: #### A ANC #### [address] [address] Registered Dietetic Technician: Simeon Abraham MD Performed By: #### C DP ####[facility] [address] [place] [address] Lab Director: Simeon Abraham MD Auto Diff Performed NOT REPORTED Normal [facility] Comment on above: Performed By: #### A ANC #### [address] [address] Registered Dietetic Technician: Simeon Abraham MD Performed By: #### C DP ####[address] [address] Lab Director: Simeon Abraham MD Platelet Estimate NOT REPORTED Normal [facility] Comment on above: Performed By: #### C DP ####[address] [address] Lab Director: Simeon Abraham MD Platelets (Bld) [#/Vol] NOT REPORTED Normal [facility] Comment on above: Performed By: #### A ANC #### [address] [address] Registered Dietetic Technician: Simeon Abraham MD RBC morphology finding Nom (Bld) NOT REPORTED Normal [facility] Comment on above: Performed By: #### A ANC #### [address] [address] Registered Dietetic Technician: Simeon Abraham MD Performed By: #### C DP ####[address] [address] Lab Director: Simeon Abraham MD WBC Morphology NOT REPORTED Normal [facility] [place] Comment on above: Performed By: #### A ANC #### [address] [address] Registered Dietetic Technician: Simeon Abraham MD Performed By: #### C DP ####[address] [address] Lab Director: Simeon Abraham MD Cult,Fluidon 01-07-2021 Cult,Fluid Specimen Description .PLEURAL FLUID LEFT Special Requests NOT REPORTED Direct Exam MANY NEUTROPHILS NO BACTERIA SEEN Gram stain made from cytocentrifuged specimen. Organisms and cells will be concentrated. Culture POSITIVE Fluid Culture Results called to and read back by: VIJAYA Alegria RN AT 2256 ON 01.05.2021 DIRECT GRAM STAIN FROM BOTTLE: GRAM POSITIVE COCCI IN CLUSTERS STAPHYLOCOCCUS EPIDERMIDIS Report Status FINAL 01/07/2021 SUSCEPTIBILITY Organism STAPHYLOCOCCUS EPIDERMIDIS Method ELLE Penicillin >=0.5 RESISTANT Cefoxitin Screen NOT REPORTED Ciprofloxacin NOT REPORTED Clindamycin >=8 RESISTANT Erythromycin >=8 RESISTANT Gentamicin <=0.5 SUSCEPTIBLE Gentamicin is used only in combination with other active agents that test susceptible. Induced Clind Resist NOT REPORTED Levofloxacin <=0.12 SUSCEPTIBLE Linezolid NOT REPORTED Moxifloxacin NOT REPORTED Nitrofurantoin NOT REPORTED Oxacillin >=4 RESISTANT Synercid NOT REPORTED Rifampin NOT REPORTED Tetracycline >=16 RESISTANT Tigecycline NOT REPORTED Trimethoprim/Sulfa 160 RESISTANT Vancomycin 2 SUSCEPTIBLE Normal [facility] Comment on above: Performed By: #### C DP, BMP, MG, GREY #### [employer] [address] [place], [place] [phone] Registered Dietetic Technician: Simeon Abraham MD Performed By: #### F LCU ####[employer] [place], [place] [phone] Lab Director: Simeon Abraham MD Culture, Body Fluidon 2020 Culture POSITIVE Fluid Cultu re Results called to and read back by: VIJAYA Alegria RN AT 2256 ON 01.05.2021 [employer] Phone: Culture DIRECT GRAM STAIN FR OM BOTTLE: GRAM POSITIVE COCCI IN CLUSTERS [employer] Phone: Culture STAPHYLOCOCCUS EPIDERMIDIS Abnormal [employer] Phone: Direct Exam Gram stain made from cytocentrifuged specimen. Organisms and cells will be concentrated. [employer] Phone: Direct Exam MANY NEUTROPHILS Abnormal [employer] Work Phone: Direct Exam NO BACTERIA SEEN [employer] michael [employer] Phone: Interpretation and review of laboratory results Abnormal [employer] Phone: Special Requests NOT REPORTED [employer] Phone: Specimen Description .PLEURAL FLUID LEFT [employer] Phone: XR CHEST PORTABLEon 01-08-20 XR CHEST PORTABLE EXAMINATION: ONE XRAY VIEW OF THE CHEST 01/07/2021 6:08 am COMPARISON: 01/06/2021, 01/05/2021 HISTORY: ORDERING SYSTEM PROVIDED HISTORY: Recurrent pneumothorax s/p left VATS resection with pleurodesis TECHNOLOGIST PROVIDED HISTORY: Recurrent pneumothorax s/p left VATS resection with pleurodesis Reason for Exam: uprt port Acuity: Acute Type of Exam: Subsequent/Follow-up FINDINGS: Left chest tubes remain in place. The cardiac and mediastinal contours appear unchanged. Basilar opacities and pleural effusions are again demonstrated without appreciable change. No new airspace disease identified in the interval. No evidence for pneumothorax. IMPRESSION: Left chest tubes in place. No pneumothorax identified. Interpreted by: Jono Miller MD Signed by: Jono Miller MD 01/07/21 Final result Normal [facility] Left chest tubes in place. No pneumothorax identified. [employer] Phone: EXAMINATION: ONE XRA Y VIEW OF THE CHEST 01/07/2021 6:08 am COMPARISON: 01/06/2021, 01/05/2021 HISTORY: ORDERING SYSTEM PROVIDED HISTORY: Recurrent pneumothorax s/p left VATS resection with pleurodesis TECHNOLOGIST PROVIDED HISTORY: Recurrent pneumothorax s/p left VATS resection with pleurodesis Reason for Exam: uprt port Acuity: Acute Type of Exam: Subsequent/Follow-up FINDINGS: Left chest tubes remain in place. The cardiac and mediastinal contours appear unchanged. Basilar opacities and pleural effusions are again demonstrated without appreciable change. No new airspace disease identified in the interval. No evidence for pneumothorax. [employer] Phone: Jose, [employer] Incoming Radiant Results From [email or web address] - 01/07/2021 8:18 AM EDT EXAMINATION: ONE XRAY VIEW OF THE CHEST 01/07/2021 6:08 am COMPARISON: 01/06/2021, 01/05/2021 HISTORY: ORDERING SYSTEM PROVIDED HISTORY: Recurrent pneumothorax s/p left VATS resection with pleurodesis TECHNOLOGIST PROVIDED HISTORY: Recurrent pneumothorax s/p left VATS resection with pleurodesis Reason for Exam: uprt port Acuity: Acute Type of Exam: Subsequent/Follow-up FINDINGS: Left chest tubes remain in place. The cardiac and mediastinal contours appear unchanged. Basilar opacities and pleural effusions are again demonstrated without appreciable change. No new airspace disease identified in the interval. No evidence for pneumothorax. IMPRESSION: Left chest tubes in place. No pneumothorax identified. [employer] Phone: CBC auto differentialon 12-10 Basophils (Bld) [#/Vol] 0.04 10*3/uL [employer] Phone: Basophils/100 WBC (Bld) 0 % 0 - 2 % [employer] Phone: Differential Type NOT REPORTED [employer] Phone: Eosinophils (Bld) [#/Vol] 0.03 10*3/uL [employer] Phone: Eosinophils/100 WBC (Bld) 0 % Low 1 - 4 % [employer] Phone: Erythrocyte distribution width (RBC) [Ratio] 13.7 % 11.8 - 14.4 % [employer] Phone: Hematocrit (Bld) [Volume fraction] 34.9 % Low 40.7 - 50.3 % [employer] Phone: Hemoglobin (Bld) [Mass/Vol] 11.3 g/dL Low 13.0 - 17.0 g/dL [employer] Phone: Immature granulocytes (Bld) [#/Vol] 0 % 0 [employer] Phone: Immature granulocytes (Bld) [#/Vol] 0.05 10*3/uL [employer] Phone: Interpretation and review of laboratory results Abnormal [employer] Phone: Lymphocytes (Bld) [#/Vol] 3.73 10*3/uL High [employer] Phone: Lymphocytes/100 WBC (Bld) 29 % 24 - 43 % [employer] Phone: MCH (RBC) [Entitic mass] 30.5 pg 25.2 - 33.5 pg [employer] Phone: MCHC (RBC) [Mass/Vol] 32.4 g/dL 28.4 - 34.8 g/dL [employer] Phone: MCV (RBC) [Entitic vol] 94.3 fL 82.6 - 102.9 fL [employer] Phone: Monocytes (Bld) [#/Vol] 1.35 10*3/uL High [employer] Phone: Monocytes/100 WBC (Bld) 10 % 3 - 12 % [employer] Phone: Platelet mean volume (Bld) [Entitic vol] 8.7 fL 8.1 - 13.5 fL [employer] Phone: Platelets (Bld) [#/Vol] NOT REPORTED [employer] Phone: Platelets (Bld) [#/Vol] 441 10*3/uL [employer] Phone: RBC (Bld) [#/Vol] 3.70 10*6/uL Low 4.21 - 5.7 7 m/uL [employer] Phone: RBC morphology finding Nom (Bld) NOT REPORTED [employer] Phone: Segmented neutrophils/100 WBC (Bld) 60 % 36 - 65 % [employer] Phone: Segs Absolute 7.72 [facility] Work Phone: WBC (Bld) [#/Vol] 0.0 10*3/uL 0.0 per 10 0 WBC [facility] Work Phone: WBC (Bld) [#/Vol] 12.9 10*3/uL High [facility] Work Phone: WBC Morphology NOT REPORTED [facility] Work Phone: CBC with Diffon 01-06-2021 Abs. Basophil 0.04 k/uL Normal 0.00-0.20 [facility] Comment on above: Performed By: #### C DP, BMP, MG, GREY #### [facility] [employer] [address] [place] [address] Registered Dietetic Technician: Simeon Abraham MD Performed By: #### C DP, CP ####[facility] [address] [place] [address] Lab Director: Simeon Abraham MD Abs.Imm.Granulocyte 0.05 k/uL Normal 0.00-0.30 [facility] Comment on above: Performed By: #### C DP, BMP, MG, GREY #### [facility] [employer] [address] [place] [address] Registered Dietetic Technician: Simeon Arbaham MD Performed By: #### C DP, CP ####[facility] [address] [place] [address] Lab Director: Simeon Abraham MD Abs.Neutrophil (Seg) 7.72 k/uL Normal 1.50-8.10 [facility] Comment on above: Performed By: #### C DP, BMP, MG, GREY #### [facility] [employer] [address] [place] [address] Registered Dietetic Technician: Simeon Abraham MD Performed By: #### C DP, CP ####[facility] [address] [place] [address] Lab Director: Simeon Abraham MD Basophils/100 WBC (Bld) 0 % Normal 0-2 [facility] Comment on above: Performed By: #### C DP, BMP, MG, GREY #### [address] [address] Registered Dietetic Technician: Simeon Abraham MD Performed By: #### C DP, CP ####[address] [address] Lab Director: Simeon Abraham MD Eosinophils (Bld) [#/Vol] 0.03 10*3/uL Normal 0.00-0.44 [facility] Comment on above: Performed By: #### C DP, BMP, MG, GREY #### [address] [address] Registered Dietetic Technician: Simeon Abraham MD Performed By: #### C DP, CP ####[address] [address] Lab Director: Simeon Abraham MD Eosinophils/100 WBC (Bld) 0 % Low 1-4 [facility] Comment on above: Performed By: #### C DP, BMP, MG, GREY #### [address] [address] Registered Dietetic Technician: Simeon Abraham MD Performed By: #### C DP, CP ####[address] [address] Lab Director: Simeon Abraham MD Erythrocyte distribution width (RBC) [Ratio] 13.7 % Normal 11.8-14.4 [facility] Comment on above: Performed By: #### C DP, BMP, MG, GREY #### [facility] [employer] [address] [place] [address] Registered Dietetic Technician: Simeon Abraham MD Performed By: #### C DP, CP ####[address] [address] Lab Director: Simeon Abraham MD Hematocrit (Bld) [Volume fraction] 34.9 % Low 40.7-50.3 [facility] Comment on above: Performed By: #### C DP, BMP, MG, GREY #### [address] [address] Registered Dietetic Technician: Simeon Abraham MD Performed By: #### C DP, CP ####[address] [address] Lab Director: Simeon Abraham MD Hemoglobin (Bld) [Mass/Vol] 11.3 g/dL Low 13.0-17.0 [facility] Comment on above: Performed By: #### C DP, BMP, MG, GREY #### [address] [address] Registered Dietetic Technician: Simeon Abraham MD Performed By: #### C DP, CP ####[address] [address] Lab Director: Simeon Abraham MD Immature granulocytes (Bld) [#/Vol] 0 % Normal 0 [facility] Comment on above: Performed By: #### C DP, BMP, MG, GREY #### [facility] [employer] [address] [place] [address] Registered Dietetic Technician: Simeon Abraham MD Immature granulocytes/100 WBC (Bld) 0 % Normal 0 [facility] Comment on above: Performed By: #### C DP, CP ####[address] [address] Lab Director: Simeon Abraham MD Lymphocytes (Bld) [#/Vol] 3.73 10*3/uL High 1.10-3.70 [facility] Comment on above: Performed By: #### C DP, BMP, MG, GREY #### [address] [address] Registered Dietetic Technician: Simeon Abraham MD Performed By: #### C DP, CP ####[address] [address] Lab Director: Simeon Abraham MD Lymphocytes/100 WBC (Bld) 29 % Normal 24-43 [facility] Comment on above: Performed By: #### C DP, BMP, MG, GREY #### [address] [address] Registered Dietetic Technician: Simeon Abraham MD Performed By: #### C DP, CP ####[address] [address] Lab Director: Simeon Abraham MD MCH (RBC) [Entitic mass] 30.5 pg Normal 25.2-33.5 [facility] Comment on above: Performed By: #### C DP, BMP, MG, GREY #### [address] [address] Registered Dietetic Technician: Simeon Abraham MD Performed By: #### C DP, CP ####[address] [phone] Director: Simeon Abraham MD MCHC (RBC) [Mass/Vol] 32.4 g/dL Normal 28.4-34.8 [facility] Comment on above: Performed By: #### C DP, BMP, MG, GREY #### [address] [address] Registered Dietetic Technician: Simeon Abraham MD Performed By: #### C DP, CP ####[address] [phone] Director: Simeon Abraham MD MCV (RBC) [Entitic vol] 94.3 fL Normal 82.6-102.9 [facility] Comment on above: Performed By: #### C DP, BMP, MG, GREY #### [facility] [employer] [address] [place] [address] Registered Dietetic Technician: Simeon Abraham MD Performed By: #### C DP, CP ####[address] [phone] Director: Simeon Abraham MD Monocytes (Bld) [#/Vol] 1.35 10*3/uL High 0.10-1.20 [facility] Comment on above: Performed By: #### C DP, BMP, MG, GREY #### [address] [address] Registered Dietetic Technician: Simeon Abraham MD Performed By: #### C DP, CP ####[address] [phone] Director: Siemon Abraham MD Monocytes/100 WBC (Bld) 10 % Normal 3-12 [facility] Comment on above: Performed By: #### C DP, BMP, MG, GREY #### [address] [address] Registered Dietetic Technician: Simeon Abraham MD Performed By: #### C DP, CP ####[address] [phone] Director: Simeon Abraham MD Neutrophil (Seg) 60 % Normal 36-65 [facility] [place] Comment on above: Performed By: #### C DP, BMP, MG, GREY #### [facility] [employer] [address] [place] [address] Registered Dietetic Technician: Simeon Abraham MD Performed By: #### C DP, CP ####[address] [phone] Director: Simeon Abraham MD NRBC Automated 0.0 per 100 WBC Normal 0.0 [facility] Comment on above: Performed By: #### C DP, BMP, MG, GREY #### [facility] [employer] [address] [place] [address] Registered Dietetic Technician: Simeon Abraham MD Performed By: #### C DP, CP ####[address] [phone] Director: Simeon Abraham MD Platelet mean volume (Bld) [Entitic vol] 8.7 fL Normal 8.1-13.5 [facility] Comment on above: Performed By: #### C DP, BMP, MG, GREY #### [address] [address] Registered Dietetic Technician: Simeon Abraham MD Performed By: #### C DP, CP ####[address] [phone] Director: Simeon Abraham MD Platelets (Bld) [#/Vol] 441 10*3/uL Normal 138-453 [facility] Comment on above: Performed By: #### C DP, BMP, MG, GREY #### [address] [address] Registered Dietetic Technician: Simeon Abraham MD Performed By: #### C DP, CP ####[address] [phone] Director: Simeon Abraham MD RBC (Bld) [#/Vol] 3.70 10*6/uL Low 4.21-5.77 [facility] Comment on above: Performed By: #### C DP, BMP, MG, GREY #### [facility] [employer] [address] [place] [address] Registered Dietetic Technician: Simeon Abraham MD Performed By: #### C DP, CP ####[address] [phone] Director: Simeon Abraham MD WBC (Bld) [#/Vol] 12.9 10*3/uL High 3.5-11.3 [facility] Comment on above: Performed By: #### C DP, BMP, MG, GREY #### [facility] [address] [place] [address] Registered Dietetic Technician: Simeon Abraham MD Performed By: #### C DP, CP ####[facility] [address] [place] [address] Lab Director: Simeon Abraham MD Auto Diff Performed NOT REPORTED Normal [facility] Comment on above: Performed By: #### C DP, BMP, MG, GREY #### [address] [address] Registered Dietetic Technician: Simeon Abraham MD Performed By: #### C DP, CP ####[address] [address] Lab Director: Simeon Abraham MD Platelet Estimate NOT REPORTED Normal [facility] Comment on above: Performed By: #### C DP, CP ####[address] [address] Lab Director: Simeon Abraham MD Platelets (Bld) [#/Vol] NOT REPORTED Normal [facility] Comment on above: Performed By: #### C DP, BMP, MG, GREY #### [facility] [address] [place] [address] Registered Dietetic Technician: Simeon Abraham MD RBC morphology finding Nom (Bld) NOT REPORTED Normal [facility] Comment on above: Performed By: #### C DP, BMP, MG, GREY #### [facility] [address] [place] [address] Registered Dietetic Technician: Simeon Abraham MD Performed By: #### C DP, CP ####[address] [address] Lab Director: Simeon Abraham MD WBC Morphology NOT REPORTED Normal [facility] [place] Comment on above: Performed By: #### C DP, BMP, MG, GREY #### [employer] [facility] [place] [address] Registered Dietetic Technician: Simeon Abraham MD Performed By: #### C DP, CP ####[employer] [address] [place], [place] [phone] Director: Simeon Abraham MD Comp Metabolic Profon 2020 (cont.) Normal [facility] Comment on above: Result Comment: Aver age GFR for 50-59 years old: 93 mL/min/1.73sq m Chronic Kidney Disease: <60 mL/min/1.73sq m Kidney failure: <15 mL/min/1.73sq m eGFR calculated using average adult body mass. Additional eGFR calculator available at: http://[email or web address]/multiple_crcl_2012.htm Performed By: #### C DP, BMP, MG, GREY #### [email or web address] [place] [address] Registered Dietetic Technician: Simeon Abraham MD Performed By: #### C DP, CP ####[facility] [place] [address] [phone] Director: Simeon Abraham MD Albumin [Mass/Vol] 2.8 g/dL Low 3.5-5.2 [facility] Comment on above: Performed By: #### C DP, BMP, MG, GREY #### [facility] [address] [place] [address] Registered Dietetic Technician: Simeon Abraham MD Performed By: #### C DP, CP ####[employer] [address] [place], [place] [phone] Director: Simeon Abraham MD Albumin/Glob Ratio 0.9 Low 1.0-2.5 [facility] Comment on above: Performed By: #### C DP, CP ####[facility] [address] [place] [address] [phone] Director: Simeon Abraham MD Albumin/Globulin [Mass ratio] 0.9 {ratio} Low 1.0-2.5 [facility] Comment on above: Performed By: #### C DP, BMP, MG, GREY #### [facility] [address] [place] [address] Registered Dietetic Technician: Simeon Abraham MD Alkaline Phos 138 U/L High 40-129 [facility] Comment on above: Performed By: #### C DP, BMP, MG, GREY #### [address] [address] Registered Dietetic Technician: Simeon Abraham MD Performed By: #### C DP, CP ####[address] [address])[phone] Director: Simeon Abraham MD ALT [Catalytic activity/Vol] 25 U/L Normal 5-41 [facility] Comment on above: Performed By: #### C DP, BMP, MG, GREY #### [address] [address] Registered Dietetic Technician: Simeon Abraham MD Performed By: #### C DP, CP ####[address] [phone] Director: Simeon Abraham MD Anion gap [Moles/Vol] 10 mmol/L Normal 9-17 [facility] Comment on above: Performed By: #### C DP, BMP, MG, GREY #### [address] [address] Registered Dietetic Technician: Simeon Abraham MD Performed By: #### C DP, CP ####[address] [phone] Director: Simeon Abraham MD AST [Catalytic activity/Vol] 30 U/L Normal <40 [facility] Comment on above: Performed By: #### C DP, BMP, MG, GREY #### [facility] [address] [place] [address] Registered Dietetic Technician: Simeon Abraham MD Performed By: #### C DP, CP ####[facility] [address] [place] [address] [phone] Director: Simeon Abraham MD Bilirubin [Mass/Vol] 0.39 mg/dL Normal 0.3-1.2 [facility] Comment on above: Performed By: #### C DP, CP ####[facility] [address] [place] [address] [phone] Director: Simeon Abraham MD Bilirubin Ql (U) 0.39 mg/dL Normal 0.3-1.2 [facility] [facility] Comment on above: Performed By: #### C DP, BMP, MG, GREY #### [email or web address] [address] [place] [address] 49555 Registered Dietetic Technician: Simeon Abraham MD Calcium [Mass/Vol] 9.4 mg/dL Normal 8.6-10.4 [facility] Comment on above: Performed By: #### C DP, BMP, MG, GREY #### [facility] [address] [place] [address] 86867 Registered Dietetic Technician: Simeon Abraham MD Performed By: #### C DP, CP ####[facility] [address] [place] [address] [phone] Director: Simeon Abraham MD Chloride [Moles/Vol] 101 mmol/L Normal 98-107 [facility] Comment on above: Performed By: #### C DP, BMP, MG, GREY #### [facility] [address] [place] [address] 19963 Registered Dietetic Technician: Simeon Abraham MD Performed By: #### C DP, CP ####[facility] [address] [place] [address] [phone] Director: Simeon Abraham MD CO2 [Moles/Vol] 23 mmol/L Normal 20-31 [facility] Comment on above: Performed By: #### C DP, BMP, MG, GREY #### [facility] [address] [place] [address] 32604 Registered Dietetic Technician: Simeon Abraham MD Performed By: #### C DP, CP ####[facility] [address] [place] [address] [phone] Director: Simeon Abraham MD Creatinine [Mass/Vol] 1.08 mg/dL Normal 0.70-1.20 [facility] Comment on above: Performed By: #### C DP, BMP, MG, GREY #### [facility] [address] [place] [address] 83516 Registered Dietetic Technician: Simeon Abraham MD Performed By: #### C DP, CP ####[facility] [address] [place] [address] [phone] Director: Simeon Abraham MD GFR, Amer >60 Normal >60 [facility] Comment on above: Performed By: #### C DP, BMP, MG, GREY #### [facility] [employer] [address] [place] [address] 99481 Registered Dietetic Technician: Simeon Abraham MD Performed By: #### C DP, CP ####[facility] [address] [place] [address] [phone] Director: Simeon Abraham MD GFR,non Amer >60 Normal >60 [facility] Comment on above: Performed By: #### C DP, BMP, MG, GREY #### [facility] [address] [place] [address] 27358 Registered Dietetic Technician: Simeon Abraham MD Performed By: #### C DP, CP ####[facility] [address] [place] [address] 98684 Lab Director: Simeon Abraham MD Glucose [Mass/Vol] 122 mg/dL High 70-99 [facility] Comment on above: Performed By: #### C DP, BMP, MG, GREY #### [facility] [address] [place] [address] 86555 Registered Dietetic Technician: Simeon Abraham MD Performed By: #### C DP, CP ####[facility] [address] [place] [address] 87559 Lab Director: Simeon Abraham MD Potassium [Moles/Vol] 4.8 mmol/L Normal 3.7-5.3 [facility] Comment on above: Performed By: #### C DP, BMP, MG, GREY #### [facility] [address] [place] [address] 70558 Registered Dietetic Technician: Simeon Abraham MD Performed By: #### C DP, CP ####[facility] [address] [place] [address] 20775 Lab Director: Simeon Abraham MD Protein [Mass/Vol] 5.9 g/dL Low 6.4-8.3 [facility] Comment on above: Performed By: #### C DP, BMP, MG, GREY #### [facility] [address] [place] [address] 98640 Registered Dietetic Technician: Simeon Abraham MD Performed By: #### C DP, CP ####[facility] [address] [place] [address] 87291 Lab Director: Simeon Abraham MD Sodium [Moles/Vol] 134 mmol/L Low 135-144 [facility] Comment on above: Performed By: #### C DP, BMP, MG, GREY #### [facility] [employer] [address] [place] [address] 16306 Registered Dietetic Technician: Simeon Abraham MD Performed By: #### C DP, CP ####[employer] [facility] [address] [place] [address] Lab Director: Simeon Abraham MD Urea nitrogen [Mass/Vol] 19 mg/dL Normal -20 [facility] Comment on above: Performed By: #### C DP, BMP, MG, GREY #### [facility] [address] [place] [address] Registered Dietetic Technician: Simeon Abraham MD Performed By: #### C DP, CP ####[facility] [address] [place], [place] [phone] Director: Simeon Abraham MD BUN/CRE Ratio NOT REPORTED Normal -20 [facility] Comment on above: Performed By: #### C DP, BMP, MG, GREY #### [facility] [address] [place] [address] Registered Dietetic Technician: Simeon Abraham MD Performed By: #### C DP, CP ####[facility] [address] [place] [address] Lab Director: Simeon Abraham MD Staging: NOT REPORTED Normal [facility] Comment on above: Performed By: #### C DP, BMP, MG, GREY #### [facility] [address] [place] [address] Registered Dietetic Technician: Simeon Abraham MD Performed By: #### C DP, CP ####[facility] [address] [place] [address] [phone] Director: Simeon Abraham MD Comprehensive Metabolic Pane [facility] 01-06-2021 Albumin [Mass/Vol] 2.8 g/dL Low 3.5 - 5.2 g/dL [employer] Work Phone: Albumin/Globulin [Mass ratio] 0.9 {ratio} Low [facility] [place] Work Phone: ALP [Catalytic activity/Vol] 138 U/L High 40 - 129 U/L [employer] Work Phone: ALT [Catalytic activity/Vol] 25 U/L 5 - 41 U/L [employer] Phone: Anion gap [Moles/Vol] 10 mmol/L 9 - 17 mmol/L [employer] Phone: AST [Catalytic activity/Vol] 30 U/L <40 [employer] Phone: Bilirubin Ql (U) 0.39 mg/dL 0.3 - 1.2 mg/dL [employer] Phone: Bun/Cre Ratio NOT REPORTED [employer] Work Phone: Calcium [Mass/Vol] 9.4 mg/dL 8.6 - 10. 4 mg/dL [employer] Phone: Chloride [Moles/Vol] 101 mmol/L 98 - 10 7 mmol/L [employer] Phone: CO2 [Moles/Vol] 23 mmol/L 20 - 31 mmol/L [employer] Phone: Creatinine [Mass/Vol] 1.08 mg/dL 0.70 - 1.20 mg/dL [employer] Phone: GFR >60 >60 mL/min [employer] Phone: GFR Non- >60 >60 mL/min [employer] Phone: GFR/1.73 sq M predicted among non-blacks MDRD (S/P/Bld) [Vol rate/Area] [employer] Phone: Comment on above: Average GFR for 50-5 9 years old: 93 mL/min/1.73sq m Chronic Kidney Disease: <60 mL/min/1.73sq m Kidney failure: <15 mL/min/1.73sq m eGFR calculated using average adult body mass. Additional eGFR calculator available at: http://www.Sepior.com/multiple_crcl_2012.htm GFR/1.73 sq M predicted among non-blacks MDRD (S/P/Bld) [Vol rate/Area] NOT REPORTED [employer] Phone: Glucose [Mass/Vol] 122 mg/dL High 70 - 99 mg/dL [employer] Phone: Interpretation and review of laboratory results Abnormal [employer] Phone: Potassium [Moles/Vol] 4.8 mmol/L 3.7 - 5.3 mmol/L [employer] Phone: Protein [Mass/Vol] 5.9 g/dL Low 6.4 - 8.3 g/dL [employer] Phone: Sodium [Moles/Vol] 134 mmol/L Low 135 - 144 mmol/L [employer] Phone: Urea nitrogen [Mass/Vol] 19 mg/dL 6 - 20 mg/dL [employer] Phone: Cult,Urineon 01-06-2021 Cult,Urine Specimen Description .URINE Special Requests NOT REPORTED Culture NO GROWTH Report Status FINAL 01/06/2021 Normal [facility] Comment on above: Performed By: #### C DP, BMP, MG, GREY #### [employer] [address] [place], [place] [phone] Registered Dietetic Technician: Simeon Abraham MD Performed By: #### U RC ####[employer] [place], [place] [id number] Lab Director: Simeon Abraham MD Culture, Urineon 01-06-2021 Culture NO GROWTH [employer] Phone: Special Requests NOT REPORTED [employer] Phone: Specimen Description .URINE [employer] Phone: XR CHEST PORTABLEon 01-07-20 21 XR CHEST PORTABLE EXAMINATION: ONE XRAY VIEW OF THE CHEST 01/06/2021 5:53 am COMPARISON: 01/05/2021, 01/04/2021 HISTORY: ORDERING SYSTEM PROVIDED HISTORY: 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 No pneumothorax identified. The cardiac mediastinal contours appear unchanged. Streaky opacities in the left lung base are again noted without appreciable change. No new airspace disease identified. IMPRESSION: Left chest tubes in place. No pneumothorax identified. Interpreted by: Jono Miller MD Signed by: Jono Miller MD 01/06/21 Final result Normal [facility] Left chest tubes in place. No pneumothorax identified. 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 No pneumothorax identified. The cardiac mediastinal contours appear unchanged. Streaky opacities in the left lung base are again noted without appreciable change. No new airspace disease identified. 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 No pneumothorax identified. The cardiac mediastinal contours appear unchanged. Streaky opacities in the left lung base are again noted without appreciable change. No new airspace disease identified. IMPRESSION: Left chest tubes in place. No pneumothorax identified. [employer] Work Phone: Arterial Blood Gas, POCon Gucci Test NOT REPORTED [employer] Phone: aPTT Coag (Bld) [Time] NOT REPORTED [employer] Work Phone: FIO2 NOT REPORTED [employer] Work Phone: Mode NOT REPORTED [employer] Work Phone: Negative Base Excess, Art NOT REPORTED [employer] Work Phone: O2 Device/Flow/% NOT REPORTED [employer] Phone: Oxygen saturation in Blood 100 % High 94.0 - 98.0 % [employer] Work Phone: POC HCO3 25.6 mmol/L 21.0 - 28.0 mmol/L [employer] Work Phone: POC pCO2 43.0 [employer] Work Phone: POC pCO2 Temp NOT REPORTED mm Hg [facility] Work Phone: POC pH 7.383 [employer] Work Phone: POC pH Temp NOT REPORTED [facility] Work Phone: POC PO2 510.1 High [employer] Work Phone: POC pO2 Temp NOT REPORTED mm Hg [facility] Work Phone: Positive Base Excess, Art 0 [employer] Work Phone: Sample Site NOT REPORTED [facility] Work Phone: TCO2 (calc), Art 27 mmol/L 22.0 - 29.0 mmol/L [employer] Work Phone: BASIC METABOLIC PANELon - Anion gap [Moles/Vol] 8 mmol/L Low 9 - 17 mmol/L [employer] Phone: Bun/Cre Ratio NOT REPORTED [employer] Work Phone: Calcium [Mass/Vol] 9.2 mg/dL 8.6 - 10. 4 mg/dL [employer] Phone: Chloride [Moles/Vol] 105 mmol/L 98 - 10 7 mmol/L [employer] Phone: CO2 [Moles/Vol] 22 mmol/L 20 - 31 mmol/L [employer] Phone: Creatinine [Mass/Vol] 1.03 mg/dL 0.70 - 1.20 mg/dL [employer] Phone: GFR >60 >60 mL/min [employer] Phone: GFR Non- >60 >60 mL/min [employer] Phone: GFR/1.73 sq M predicted among non-blacks MDRD (S/P/Bld) [Vol rate/Area] NOT REPORTED [employer] Phone: GFR/1.73 sq M predicted among non-blacks MDRD (S/P/Bld) [Vol rate/Area] [employer] Phone: Comment on above: Average GFR for 50-5 9 years old: 93 mL/min/1.73sq m Chronic Kidney Disease: <60 mL/min/1.73sq m Kidney failure: <15 mL/min/1.73sq m eGFR calculated using average adult body mass. Additional eGFR calculator available at: http://www.Sepior.Unsubscribe.com/multiple_crcl_2012.htm Glucose [Mass/Vol] 88 mg/dL 70 - 99 mg/dL [employer] Phone: Interpretation and review of laboratory results Abnormal [employer] Phone: Potassium [Moles/Vol] 4.4 mmol/L 3.7 - 5.3 mmol/L [facility] Phone: Sodium [Moles/Vol] 135 mmol/L 135 - 144 mmol/L [facility] Phone: Urea nitrogen [Mass/Vol] 20 mg/dL 6 - 20 mg/dL [employer] Phone: Basic Metabolic Profon 01-05 (cont.) Normal [facility] Comment on above: Result Comment: Aver age GFR for 50-59 years old: 93 mL/min/1.73sq m Chronic Kidney Disease: <60 mL/min/1.73sq m Kidney failure: <15 mL/min/1.73sq m eGFR calculated using average adult body mass. Additional eGFR calculator available at: http://www.Habeas/multiple_crcl_2011.htm Performed By: #### P T, CBC, BMP, MG #### [employer] [address] [place] [address] Registered Dietetic Technician: Simeon Abraham MD Performed By: #### C BC, PT, BMP, MG ####[employer] [place] [address] Lab Director: Simeon Abraham MD Anion gap [Moles/Vol] 8 mmol/L Low 9-17 [facility] Comment on above: Performed By: #### P T, CBC, BMP, MG #### [employer] [address] [place] [address] Registered Dietetic Technician: Simeon Abraham MD Performed By: #### C BC, PT, BMP, MG ####[employer] [place] [address] Lab Director: Simeon Abraham MD Calcium [Mass/Vol] 9.2 mg/dL Normal 8.6-10.4 [facility] Comment on above: Performed By: #### P T, CBC, BMP, MG #### [employer] [address] [place] [address] Registered Dietetic Technician: Simeon Abraham MD Performed By: #### C BC, PT, BMP, MG ####[facility] [address] [place] [address] 35946 Lab Director: Simeon Abraham MD Chloride [Moles/Vol] 105 mmol/L Normal 98-107 [facility] Comment on above: Performed By: #### P T, CBC, BMP, MG #### [facility] [address] [place] [address] 30852 Registered Dietetic Technician: Simeon Abraham MD Performed By: #### C BC, PT, BMP, MG ####[facility] [address] [place] [address] 16225 Lab Director: Simeon Abraham MD CO2 [Moles/Vol] 22 mmol/L Normal 20-31 [facility] Comment on above: Performed By: #### P T, CBC, BMP, MG #### [facility] [employer] [address] [place] [address] 23022 Registered Dietetic Technician: Simeon Abraham MD Performed By: #### C BC, PT, BMP, MG ####[facility] [address] [place] [address] 09609 Lab Director: Simeon Abraham MD Creatinine [Mass/Vol] 1.03 mg/dL Normal 0.70-1.20 [facility] Comment on above: Performed By: #### P T, CBC, BMP, MG #### [facility] [address] [place] [address] 90377 Registered Dietetic Technician: Simeon Abraham MD Performed By: #### C BC, PT, BMP, MG ####[facility] [address] [place] [address] 37113 Lab Director: Simeon Abraham MD GFR, Amer >60 Normal >60 [facility] Comment on above: Performed By: #### P T, CBC, BMP, MG #### [facility] [address] [place] [address] Registered Dietetic Technician: Simeon Abraham MD Performed By: #### C BC, PT, BMP, MG ####[facility] [address] [place] [address] Lab Director: Simeon Abraham MD GFR,non Amer >60 Normal >60 [facility] Comment on above: Performed By: #### P T, CBC, BMP, MG #### [facility] [address] [place] [address] 68607 Registered Dietetic Technician: Simeon Abraham MD Performed By: #### C BC, PT, BMP, MG ####[facility] [address] [place] [address] 59199 Lab Director: Simeon Abraham MD Glucose [Mass/Vol] 88 mg/dL Normal 70-99 [facility] Comment on above: Performed By: #### P T, CBC, BMP, MG #### [facility] [address] [place] [address] 49152 Registered Dietetic Technician: Simeon Abraham MD Performed By: #### C BC, PT, BMP, MG ####[facility] [address] [place] [address] 16636 Lab Director: Simeon Abraham MD Potassium [Moles/Vol] 4.4 mmol/L Normal 3.7-5.3 [facility] Comment on above: Performed By: #### P T, CBC, BMP, MG #### [facility] [place] [address] Registered Dietetic Technician: Simeon Abraham MD Performed By: #### C BC, PT, BMP, MG ####[facility] [address] [place] [address] 52770 Lab Director: Simeon Abraham MD Sodium [Moles/Vol] 135 mmol/L Normal 135-144 [facility] Comment on above: Performed By: #### P T, CBC, BMP, MG #### [facility] [address] [place] [address] Registered Dietetic Technician: Simeon Abraham MD Performed By: #### C BC, PT, BMP, MG ####[facility] [address] [place] [address] Lab Director: Simeon Abraham MD Urea nitrogen [Mass/Vol] 20 mg/dL Normal - [facility] Comment on above: Performed By: #### P T, CBC, BMP, MG #### [facility] [address] [place] [address] Registered Dietetic Technician: Simeon Abraham MD Performed By: #### C BC, PT, BMP, MG ####[facility] [address] [place] [address] 81330 Lab Director: Simeon Abraham MD BUN/CRE Ratio NOT REPORTED Normal - [facility] Comment on above: Performed By: #### P T, CBC, BMP, MG #### [facility] [address] [place] [address] 88619 Registered Dietetic Technician: Simeon Abraham MD Performed By: #### C BC, PT, BMP, MG ####[facility] [address] [place] [address] Lab Director: Simeon Abraham MD Staging: NOT REPORTED Normal [facility] Comment on above: Performed By: #### P T, CBC, BMP, MG #### [facility] [address] [place] [address] Registered Dietetic Technician: Simeon Abraham MD Performed By: #### C BC, PT, BMP, MG ####[facility] [address] [place] [address] Lab Director: Simeon Abraham MD CALCIUM, IONIC (POC)on 01-05 POC Ionized Calcium 1.33 mmol/L 1.15 - 1 .33 mmol/L [facility] [employer] Work Phone: CBCon 01-05-2021 Erythrocyte distribution width (RBC) [Ratio] 13.8 % Normal 11.8-14.4 [facility] Comment on above: Performed By: #### P T, CBC, BMP, MG #### [employer] [address] [place] [address] 89843 Registered Dietetic Technician: Simeon Abraham MD Performed By: #### C BC, PT, BMP, MG ####[facility] [address] [place] [address] 97411 Lab Director: Simeon Abraham MD Hematocrit (Bld) [Volume fraction] 35.4 % Low 40.7-50.3 [facility] Comment on above: Performed By: #### P T, CBC, BMP, MG #### [employer] [address] [place] [address] Registered Dietetic Technician: Simeon Abraham MD Performed By: #### C BC, PT, BMP, MG ####[employer] [place] [address] 57395 Lab Director: Simeon Abraham MD Hemoglobin (Bld) [Mass/Vol] 10.8 g/dL Low 13.0-17.0 [facility] Comment on above: Performed By: #### P T, CBC, BMP, MG #### [employer] [address] [place] [address] 51098 Registered Dietetic Technician: Simeon Abraham MD Performed By: #### C BC, PT, BMP, MG ####[facility] [address] [place] [address] Lab Director: Simeon Abraham MD MCH (RBC) [Entitic mass] 30.8 pg Normal 25.2-33.5 [facility] Comment on above: Performed By: #### P T, CBC, BMP, MG #### [employer] [address] [place] [address] 09909 Registered Dietetic Technician: Simeon Abraham MD Performed By: #### C BC, PT, BMP, MG ####[address] [address] Lab Director: Simeon Abraham MD MCHC (RBC) [Mass/Vol] 30.5 g/dL Normal 28.4-34.8 [facility] Comment on above: Performed By: #### P T, CBC, BMP, MG #### [facility] [address] [place] [address] 27048 Registered Dietetic Technician: Simeon Abraham MD Performed By: #### C BC, PT, BMP, MG ####[facility] [address] [place] [address] 53398 Lab Director: Simeon Abraham MD MCV (RBC) [Entitic vol] 100.9 fL Normal 82.6-102.9 [facility] Comment on above: Performed By: #### P T, CBC, BMP, MG #### [address] [address] Registered Dietetic Technician: Simeon Abraham MD Performed By: #### C BC, PT, BMP, MG ####[address] [address] Lab Director: Simeon Abraham MD NRBC Automated 0.0 per 100 WBC Normal 0.0 [facility] Comment on above: Performed By: #### P T, CBC, BMP, MG #### [facility] [address] [place] [address] 46822 Registered Dietetic Technician: Simeon Abraham MD Performed By: #### C BC, PT, BMP, MG ####[facility] [address] [place] [address] 43316 Lab Director: Simeon Abraham MD Platelet mean volume (Bld) [Entitic vol] 9.0 fL Normal 8.1-13.5 [facility] Comment on above: Performed By: #### P T, CBC, BMP, MG #### [facility] [address] [place] [address] 92797 Registered Dietetic Technician: Simeon Abraham MD Performed By: #### C BC, PT, BMP, MG ####[facility] [address] [place] [address] [phone] Director: Simeon Abraham MD Platelets (Bld) [#/Vol] 427 10*3/uL Normal 138-453 [facility] Comment on above: Performed By: #### P T, CBC, BMP, MG #### [facility] [address] [place] [address] 74569 Registered Dietetic Technician: Simeon Abraham MD Performed By: #### C BC, PT, BMP, MG ####[facility] [address] [place] [address] [phone] Director: Simeon Abraham MD RBC (Bld) [#/Vol] 3.51 10*6/uL Low 4.21-5.77 [facility] Comment on above: Performed By: #### P T, CBC, BMP, MG #### [facility] [address] [place] [address] 16584 Registered Dietetic Technician: Simeon Abraham MD Performed By: #### C BC, PT, BMP, MG ####[facility] [address] [place] [address] [phone] Director: Simeon Abraham MD WBC (Bld) [#/Vol] 8.4 10*3/uL Normal 3.5-11.3 [facility] Comment on above: Performed By: #### P T, CBC, BMP, MG #### [facility] [address] [place] [address] Registered Dietetic Technician: Simeon Abraham MD Performed By: #### C BC, PT, BMP, MG ####[facility] [address] [place] [address] [facility] Director: Simeon Abraham MD Erythrocyte distribution width (RBC) [Ratio] 13.8 % 11.8 - 14.4 % [employer] Phone: Hematocrit (Bld) [Volume fraction] 35.4 % Low 40.7 - 50.3 % [employer] Phone: Hemoglobin (Bld) [Mass/Vol] 10.8 g/dL Low 13.0 - 17.0 g/dL [employer] Phone: Interpretation and review of laboratory results Abnormal [employer] Phone: MCH (RBC) [Entitic mass] 30.8 pg 25.2 - 33.5 pg [employer] Phone: MCHC (RBC) [Mass/Vol] 30.5 g/dL 28.4 - 34.8 g/dL [employer] Phone: MCV (RBC) [Entitic vol] 100.9 fL 82.6 - 102.9 fL [employer] Phone: Platelet mean volume (Bld) [Entitic vol] 9.0 fL 8.1 - 13.5 fL [employer] Phone: Platelets (Bld) [#/Vol] 427 10*3/uL [employer] Phone: RBC (Bld) [#/Vol] 3.51 10*6/uL Low 4.21 - 5.7 7 m/uL [employer] Phone: WBC (Bld) [#/Vol] 0.0 10*3/uL 0.0 per 10 0 WBC [employer] Phone: WBC (Bld) [#/Vol] 8.4 10*3/uL [employer] Phone: Cult,Aerobe/Anaerobeon 01-05 Cult,Aerobe/Anaerobe Specimen Descriptio n .PLEURAL FLUID LEFT Special Requests NOT REPORTED Direct Exam NOT REPORTED Culture DUPLICATE ORDER SEE FLUID CULTURE Report Status FINAL 01/05/2021 Normal [facility] Comment on above: Performed By: #### A ANC #### [facility] [place] [address] Registered Dietetic Technician: Simeon Abraham MD Performed By: #### A ANC ####[employer] [place] [address] [phone] Lab Director: Simeon Abraham MD Culture, Anaerobic and Aerob icon 01-05-2021 Culture DUPLICATE ORDER SEE FLUID CULTURE [employer] Phone: Direct Exam NOT REPORTED [employer] Work Phone: Special Requests NOT REPORTED [employer] Phone: Specimen Description .PLEURAL FLUID LEFT [employer] Phone: Hemoglobin and hematocrit, b loodon 01-05-2021 Hematocrit (Bld) [Volume fraction] 34 % Low 41 - 53 % [employer] Phone: Hemoglobin (Bld) [Mass/Vol] 11.6 g/dL Low 13.5 - 17.5 g/dL [employer] Phone: Magnesiumon 01-05-2021 Magnesium [Mass/Vol] 2.0 mg/dL Normal 1.6-2.6 [facility] Comment on above: Performed By: #### P T, CBC, BMP, MG #### [employer] [facility] [place] [address] Registered Dietetic Technician: Simeon Abraham MD Performed By: #### C BC, PT, BMP, MG ####[employer] [place] [address] Lab Director: Simeon Abraham MD Magnesium [Mass/Vol] 2.0 mg/dL 1.6 - 2 .6 mg/dL [facility] Phone: OPERATIVE REPORTon 1 OPERATIVE REPORT [address] [id number] OPERATIVE REPORT PATIENT NAME: VANDANA STRINGER : 1965 MED REC NO: [id number] ROOM: 1004 ACCOUNT NO: [id number] ADMIT DATE: 12/20/2020 PROVIDER: Lisandro Lamb MD DATE OF PROCEDURE: 01/05/2021 PREOPERATIVE DIAGNOSIS: Left-sided post-traumatic pneumothorax. POSTOPERATIVE DIAGNOSIS: Left-sided post-traumatic pneumothorax. PROCEDURES: 1. Left VATS. 2. Mechanical and talc pleurodesis. 3. Removal of old chest tubes. 4. Platelet-derived products. SURGEON: Lisandro Lamb MD CABLE INSTALLER REPAIRER HELPER: Jordin Perdomo CSA EBL: 100 mL. SPECIMEN: Pleural effusion for culture. DRAINS: Two 32-Guatemalan chest tubes. PROCEDURE: The patient has risks, benefits, intentions fully discussed. Risks include but not limited to bleeding, infection, damage to lungs, anesthesia risks. He understands the risks with anesthesia and is willing to proceed. Taken to the OP, placed in the supine position. General anesthesia was induced. A time-out was performed in the OR. At this time, he was placed in the right lateral decubitus position. All the appropriate padding and precautions were taken. The patient was washed, prepped and draped in a normal sterile fashion. The incision was made below the tip of the scapula after it was anesthetized using Marcaine. The thorax was entered. A second Thoracoport was placed between the 10th and 11th ribs in the midaxillary line. The thorax was entered there and Thoracoport was placed. Adhesions were taken down at this time using the electrocautery and the suction tip. Once all the adhesions had been removed from the chest wall after a Thoracoport was placed through an attempted anterior small incision that was up the chest tube site. This was Betadine on and sterilized. Three Thoracoports were placed. Copious amounts of irrigation was used and there was no air leak noted. The patient has mechanical pleurodesis first performed using a Bovie scratch pad. This was done from top to bottom including the diaphragm. Then, 2 gm of aerosolized talc were instilled for talc pleurodesis. Platelet-derived gel was applied to any surface for further adhesions. At this time, two 32-Guatemalan chest tubes were placed to the posterior most Thoracoport sites. Lung was re-expanded. Chest tube was sutured in place using 0 silk suture. The remaining incisions were then closed using a 2-0 Vicryl mattress suture. The patient then has the chest tube sutured in place using 0 silk sutures. Xeroform, 4x4s and silk tape were used for an occlusive dressing. The patient tolerated the procedure well, was extubated, and taken to the [facility] without complication. This procedure could not have been performed without the assistance of Jordin Perdomo, whose helping knowledge were invaluable. LISANDRO LAMB MD [id number] Doc#: [id number] CC: Normal [facility] Otheron 01-05-2021 Interpretation and review of laboratory results Abnormal [employer] Phone: POCT Glucoseon 01-05-2021 Glucose [Mass/Vol] 108 mg/dL High 74 - 100 mg/dL [employer] Phone: POTASSIUM (POC)on 01-05-2021 Potassium [Moles/Vol] 4.0 mmol/L 3.5 - 4.5 mmol/L [employer] Phone: PROTIME-INRon 01-05-2021 INR Coag (PPP) [Relative time] 1.0 {INR} [employer] Phone: Comment on above: Therapeutic Range: Moderate Anticoagulant Intensity: INR = 2.0-3.0 High Anticoagulant Intensity: INR = 2.5-3.5 PT Coag (PPP) [Time] 10.6 s [employer] Phone: PTon 01-05-2021 INR Coag (PPP) [Relative time] 1.0 {INR} Normal [facility] Comment on above: Result Comment: Therapeutic Range: Moderate Anticoagulant Intensity: INR = 2.0-3.0 High Anticoagulant Intensity: INR = 2.5-3.5 Performed By: #### P T, CBC, BMP, MG #### [facility] [employer] [address] [place] [address] Registered Dietetic Technician: Simeon Abraham MD Performed By: #### C BC, PT, BMP, MG ####[facility] [address] [place] [address] Lab Director: Simeon Abraham MD PT Coag (PPP) [Time] 10.6 s Normal 9.1-12.3 [facility] Comment on above: Performed By: #### P T, CBC, BMP, MG #### [email or web address] [place], [place] [id number] Registered Dietetic Technician: Simeon Abraham MD Performed By: #### C BC, PT, BMP, MG ####[facility] [address] [place] [address] [id number] Lab Director: Simeon Abraham MD XR CHEST PORTABLEon 01-06-20 21 XR CHEST PORTABLE EXAMINATION: ONE XRAY VIEW OF THE CHEST 01/05/2021 12:42 pm COMPARISON: Chest radiograph from earlier the same day. HISTORY: ORDERING SYSTEM PROVIDED HISTORY: post op TECHNOLOGIST PROVIDED HISTORY: post op FINDINGS: A portable upright frontal view chest radiograph was obtained. The heart is enlarged. The mediastinal contour and pleural spaces are otherwise within normal limits. Atelectasis is present at both lung bases. The lungs are otherwise grossly clear. There is no focal consolidation or pneumothorax. The pulmonary vascular pattern is within normal limits. No acute thoracic osseous abnormality. IMPRESSION: Minimal bibasilar atelectasis. Otherwise, clear lungs. Left thoracostomy tubes in place. No pneumothorax. Interpreted by: Rogerio Dos Santos MD Signed by: Rogerio Dos Santos MD 01/05/21 Final result Normal [facility] Minimal bibasilar atelectasis. Otherwise, clear lungs. Left thoracostomy tubes in place. No pneumothorax. [facility] [employer] Work Phone: EXAMINATION: ONE XRA Y VIEW OF THE CHEST 01/05/2021 12:42 pm COMPARISON: Chest radiograph from earlier the same day. HISTORY: ORDERING SYSTEM PROVIDED HISTORY: post op TECHNOLOGIST PROVIDED HISTORY: post op FINDINGS: A portable upright frontal view chest radiograph was obtained. The heart is enlarged. The mediastinal contour and pleural spaces are otherwise within normal limits. Atelectasis is present at both lung bases. The lungs are otherwise grossly clear. There is no focal consolidation or pneumothorax. The pulmonary vascular pattern is within normal limits. No acute thoracic osseous abnormality. [employer] Phone: Jose, pn Incoming Radiant Results From [employer] - 01/05/2021 3:06 PM EDT EXAMINATION: ONE XRAY VIEW OF THE CHEST 01/05/2021 12:42 pm COMPARISON: Chest radiograph from earlier the same day. HISTORY: ORDERING SYSTEM PROVIDED HISTORY: post op TECHNOLOGIST PROVIDED HISTORY: post op FINDINGS: A portable upright frontal view chest radiograph was obtained. The heart is enlarged. The mediastinal contour and pleural spaces are otherwise within normal limits. Atelectasis is present at both lung bases. The lungs are otherwise grossly clear. There is no focal consolidation or pneumothorax. The pulmonary vascular pattern is within normal limits. No acute thoracic osseous abnormality. IMPRESSION: Minimal bibasilar atelectasis. Otherwise, clear lungs. Left thoracostomy tubes in place. No pneumothorax. [employer] Phone: XR CHEST PORTABLE EXAMINATION: ONE XRAY VIEW OF THE CHEST 01/05/2021 7:06 am COMPARISON: January 04, 2021 HISTORY: ORDERING SYSTEM PROVIDED HISTORY: Left pneumothorax FINDINGS: Left chest tube remains in place. Small left pneumothorax not appreciably changed. Cardiomediastinal silhouette appears unchanged. Left basilar airspace disease redemonstrated. Right lung is clear. IMPRESSION: Small left pneumothorax, not significantly changed. Left basilar airspace disease appears slightly worse. Alternatively, a small pleural fluid collection may be developing. Interpreted by: Pete Dunlap MD Signed by: Pete Dunlap MD 01/05/21 Final result Normal [facility] EXAMINATION: ONE XRA Y VIEW OF THE CHEST 01/05/2021 7:06 am COMPARISON: January 04, 2021 HISTORY: ORDERING SYSTEM PROVIDED HISTORY: Left pneumothorax FINDINGS: Left chest tube remains in place. Small left pneumothorax not appreciably changed. Cardiomediastinal silhouette appears unchanged. Left basilar airspace disease redemonstrated. Right lung is clear. [employer] Phone: Jose, [employer] Incoming Radiant Results From [email or web address] - 01/05/2021 8:30 AM EDT EXAMINATION: ONE XRAY VIEW OF THE CHEST 01/05/2021 7:06 am COMPARISON: January 04, 2021 HISTORY: ORDERING SYSTEM PROVIDED HISTORY: Left pneumothorax FINDINGS: Left chest tube remains in place. Small left pneumothorax not appreciably changed. Cardiomediastinal silhouette appears unchanged. Left basilar airspace disease redemonstrated. Right lung is clear. IMPRESSION: Small left pneumothorax, not significantly changed. Left basilar airspace disease appears slightly worse. Alternatively, a small pleural fluid collection may be developing. [employer] Phone: Small left pneumotho rax, not significantly changed. Left basilar airspace disease appears slightly worse. Alternatively, a small pleural fluid collection may be developing. [employer] Phone: XR CHEST PORTABLE EXAMINATION: ONE XRAY VIEW OF THE CHEST 01/04/2021 9:23 pm COMPARISON: 15 hours earlier. HISTORY: ORDERING SYSTEM PROVIDED HISTORY: s/p attempted chest tube insertion TECHNOLOGIST PROVIDED HISTORY: s/p attempted chest tube insertion Reason for Exam: Left side chest tube FINDINGS: Heart size is stable at upper limits of normal. Pulmonary vasculature appears mildly congested increased from prior although inspiratory effort is decreased which may contribute to this appearance. No focal infiltrate is present. There is left basilar atelectasis. There is a tiny left pneumothorax and a left apical chest tube unchanged in position from prior. There is minimal left lateral chest wall emphysema. Multiple mildly displaced left-sided rib fractures are again noted. IMPRESSION: Stable exam compared to 15 hours prior given differences in lung volumes. Interpreted by: Howard Moseley Signed by: Howard Moseley 01/04/21 Final result Normal [facility] CT CHEST WO CONTRASTon 01-04 CT CHEST WO CONTRAST EXAMINATION: CT OF THE CHEST WITHOUT CONTRAST 01/04/2021 11:21 am TECHNIQUE: CT of the chest was performed without the administration of intravenous contrast. Multiplanar reformatted images are provided for review. Dose modulation, iterative reconstruction, and/or weight based adjustment of the mA/kV was utilized to reduce the radiation dose to as low as reasonably achievable. COMPARISON: None HISTORY: ORDERING SYSTEM PROVIDED HISTORY: repeat to assess pneumos for poss VATs surg TECHNOLOGIST PROVIDED HISTORY: repeat to assess pneumos for poss VATs surg Reason for Exam: repeat to assess pneumos for poss VATs surg Assess for thoracoscopy. FINDINGS: Mediastinum: Shotty mediastinal lymph nodes are present. No juanito mediastinal adenopathy, cardiomegaly or acute aortic abnormality. The patient has pericardial effusion maximum depth of 15 mm anteriorly. There is also nodularity abutting the right pericardium with smooth nodules measuring up to 2.2 cm adherent to the right heart border. Lungs/pleura: The patient has approximately 40-45% left pneumothorax. Indwelling left-sided chest tube terminates at the left apex medially. Atelectasis is noted left lung with consolidation left lung base posteriorly. Mild lower lobe bronchiectasis is evident. Tracheobronchial tree is patent. Upper Abdomen: Accessory splenule is noted. Kidneys are present suggesting cortical thinning. Otherwise no acute abnormality in the included upper abdominal structures. Soft Tissues/Bones: Degenerative changes in the dorsal spine. Patient has multiple left-sided rib fractures. On 3D images, there is a subacute fracture left posterior 2nd rib, offset fracture left lateral 3rd rib, fresh fracture left posterior 4th rib, fracture left anterior 6th rib. IMPRESSION: 1. Shotty mediastinal lymph nodes. Sizable left pleural effusion. Indwelling left chest tube with subcutaneous emphysema. Small left effusion with atelectasis left lung base. 2. Patient has pericardial effusion and nodularity on the pericardium right-side. 3. Multiple left-sided rib fractures. Subcutaneous emphysema left chest. Interpreted by: Aliza Aragon MD Signed by: Aliza Aragon MD 01/04/21 Final result Normal [facility] Lymphocytes (Bld) [#/Vol] 1. Shotty mediastinal lymph nodes. Sizable left pleural effusion. Indwelling left chest tube with subcutaneous emphysema. Small left effusion with atelectasis left lung base. 2. Patient has pericardial effusion and nodularity on the pericardium right-side. 3. Multiple left-sided rib fractures. Subcutaneous emphysema left chest. [employer] Work Phone: Jose, Mhpn Incoming Radiant Results From [employer] - 01/04/2021 6:03 PM EDT EXAMINATION: CT OF THE CHEST WITHOUT CONTRAST 01/04/2021 11:21 am TECHNIQUE: CT of the chest was performed without the administration of intravenous contrast. Multiplanar reformatted images are provided for review. Dose modulation, iterative reconstruction, and/or weight based adjustment of the mA/kV was utilized to reduce the radiation dose to as low as reasonably achievable. COMPARISON: None HISTORY: ORDERING SYSTEM PROVIDED HISTORY: repeat to assess pneumos for poss VATs surg TECHNOLOGIST PROVIDED HISTORY: repeat to assess pneumos for poss VATs surg Reason for Exam: repeat to assess pneumos for poss VATs surg Assess for thoracoscopy. FINDINGS: Mediastinum: Shotty mediastinal lymph nodes are present. No juanito mediastinal adenopathy, cardiomegaly or acute aortic abnormality. The patient has pericardial effusion maximum depth of 15 mm anteriorly. There is also nodularity abutting the right pericardium with smooth nodules measuring up to 2.2 cm adherent to the right heart border. Lungs/pleura: The patient has approximately 40-45% left pneumothorax. Indwelling left-sided chest tube terminates at the left apex medially. Atelectasis is noted left lung with consolidation left lung base posteriorly. Mild lower lobe bronchiectasis is evident. Tracheobronchial tree is patent. Upper Abdomen: Accessory splenule is noted. Kidneys are present suggesting cortical thinning. Otherwise no acute abnormality in the included upper abdominal structures. Soft Tissues/Bones: Degenerative changes in the dorsal spine. Patient has multiple left-sided rib fractures. On 3D images, there is a subacute fracture left posterior 2nd rib, offset fracture left lateral 3rd rib, fresh fracture left posterior 4th rib, fracture left anterior 6th rib. IMPRESSION: 1. Shotty mediastinal lymph nodes. Sizable left pleural effusion. Indwelling left chest tube with subcutaneous emphysema. Small left effusion with atelectasis left lung base. 2. Patient has pericardial effusion and nodularity on the pericardium right-side. 3. Multiple left-sided rib fractures. Subcutaneous emphysema left chest. [employer] Phone: EXAMINATION: CT OF T HE CHEST WITHOUT CONTRAST 01/04/2021 11:21 am TECHNIQUE: CT of the chest was performed without the administration of intravenous contrast. Multiplanar reformatted images are provided for review. Dose modulation, iterative reconstruction, and/or weight based adjustment of the mA/kV was utilized to reduce the radiation dose to as low as reasonably achievable. COMPARISON: None HISTORY: ORDERING SYSTEM PROVIDED HISTORY: repeat to assess pneumos for poss VATs surg TECHNOLOGIST PROVIDED HISTORY: repeat to assess pneumos for poss VATs surg Reason for Exam: repeat to assess pneumos for poss VATs surg Assess for thoracoscopy. FINDINGS: Mediastinum: Shotty mediastinal lymph nodes are present. No juanito mediastinal adenopathy, cardiomegaly or acute aortic abnormality. The patient has pericardial effusion maximum depth of 15 mm anteriorly. There is also nodularity abutting the right pericardium with smooth nodules measuring up to 2.2 cm adherent to the right heart border. Lungs/pleura: The patient has approximately 40-45% left pneumothorax. Indwelling left-sided chest tube terminates at the left apex medially. Atelectasis is noted left lung with consolidation left lung base posteriorly. Mild lower lobe bronchiectasis is evident. Tracheobronchial tree is patent. Upper Abdomen: Accessory splenule is noted. Kidneys are present suggesting cortical thinning. Otherwise no acute abnormality in the included upper abdominal structures. Soft Tissues/Bones: Degenerative changes in the dorsal spine. Patient has multiple left-sided rib fractures. On 3D images, there is a subacute fracture left posterior 2nd rib, offset fracture left lateral 3rd rib, fresh fracture left posterior 4th rib, fracture left anterior 6th rib. [employer] Work Phone: XR CHEST PORTABLEon 01-05-20 21 Jose, [facility] Incoming Radiant Results From [email or web address] - 01/04/2021 10:08 PM EDT EXAMINATION: ONE XRAY VIEW OF THE CHEST 01/04/2021 9:23 pm COMPARISON: 15 hours earlier. HISTORY: ORDERING SYSTEM PROVIDED HISTORY: s/p attempted chest tube insertion TECHNOLOGIST PROVIDED HISTORY: s/p attempted chest tube insertion Reason for Exam: Left side chest tube FINDINGS: Heart size is stable at upper limits of normal. Pulmonary vasculature appears mildly congested increased from prior although inspiratory effort is decreased which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 place. Stable cardiomediastinal silhouette. Atelectasis left lung base. Hazy opacification right lung base new. Possible layering effusion. No clear evidence for pneumothorax. Subcutaneous emphysema left lateral chest. Left rib fractures. [employer] Phone: New hazy opacificati on right lung base possible layering effusion. Stable atelectasis left lung base. Left chest tube remains in place. No pneumothorax. [employer] Phone: Basic Metabolic Profon 12-27 (cont.) Normal [facility] Comment on above: Result Comment: Aver age GFR for 50-59 years old: 93 mL/min/1.73sq m Chronic Kidney Disease: <60 mL/min/1.73sq m Kidney failure: <15 mL/min/1.73sq m eGFR calculated using average adult body mass. Additional eGFR calculator available at: http://www.Habeas/multiple_crcl_2011.htm Performed By: #### A ANC #### [employer] [address] [place], [place] [id number] Registered Dietetic Technician: Simeon Abraham MD Performed By: #### V BG, IOCAL, BMP, MG, GREY ####[employer] [place], [place] [id number] Lab Director: Simeon Abraham MD Anion gap [Moles/Vol] 8 mmol/L Low 9-17 [facility] Comment on above: Performed By: #### A ANC #### [address] [address] Registered Dietetic Technician: Simeon Abraham MD Performed By: #### V BG, IOCAL, BMP, MG, GREY ####[address] [phone] Director: Simeon Abraham MD Calcium [Mass/Vol] 9.0 mg/dL Normal 8.6-10.4 [facility] Comment on above: Performed By: #### A ANC #### [address] [address] Registered Dietetic Technician: Simeon Abraham MD Performed By: #### V BG, IOCAL, BMP, MG, GREY ####[address] [address] Lab Director: Simeon Abraham MD Chloride [Moles/Vol] 102 mmol/L Normal 98-107 [facility] Comment on above: Performed By: #### A ANC #### [address] [address] Registered Dietetic Technician: Simeon Abraham MD Performed By: #### V BG, IOCAL, BMP, MG, GREY ####[address] [address] Lab Director: Simeon Abraham MD CO2 [Moles/Vol] 24 mmol/L Normal 20-31 [facility] Comment on above: Performed By: #### A ANC #### [address] [address] Registered Dietetic Technician: Simeon Abraham MD Performed By: #### V BG, IOCAL, BMP, MG, GREY ####[address] [address] Lab Director: Simeon Abraham MD Creatinine [Mass/Vol] 1.20 mg/dL Normal 0.70-1.20 [facility] Comment on above: Performed By: #### A ANC #### [facility] [address] [place] [address] Registered Dietetic Technician: Simeon Abraham MD Performed By: #### V BG, IOCAL, BMP, MG, GREY ####[facility] [address] [place], [place] [phone] Director: Simeon Abraham MD GFR, Amer >60 Normal >60 [facility] Comment on above: Performed By: #### A ANC #### [facility] [address] [place] [address] Registered Dietetic Technician: Simeon Abraham MD Performed By: #### V BG, IOCAL, BMP, MG, GREY ####[facility] [address] [place] [address] Lab Director: Simeon Abraham MD GFR,non Amer >60 Normal >60 [facility] Comment on above: Performed By: #### A ANC #### [facility] [address] [place] [address] Registered Dietetic Technician: Simeon Abraham MD Performed By: #### V BG, IOCAL, BMP, MG, GREY ####[facility] [address] [place] [address] Lab Director: Simeon Abraham MD Glucose [Mass/Vol] 112 mg/dL High 70-99 [facility] Comment on above: Performed By: #### A ANC #### [facility] [address] [place] [address] 15897 Registered Dietetic Technician: Simeon Abraham MD Performed By: #### V BG, IOCAL, BMP, MG, GREY ####[facility] [address] [place] [address] Lab Director: Simeon Abraham MD Potassium [Moles/Vol] 4.8 mmol/L Normal 3.7-5.3 [facility] Comment on above: Performed By: #### A ANC #### [facility] [address] [place] [address] Registered Dietetic Technician: Simeon Abraham MD Performed By: #### V BG, IOCAL, BMP, MG, GRYE ####[facility] [address] [place], [place] [phone] Director: Simeon Abraham MD Sodium [Moles/Vol] 134 mmol/L Low 135-144 [facility] Comment on above: Performed By: #### A ANC #### [facility] [address] [place] [address] Registered Dietetic Technician: Simeon Abraham MD Performed By: #### V BG, IOCAL, BMP, MG, GREY ####[facility] [address] [place], [place] [phone] Director: Simeon Abraham MD Urea nitrogen [Mass/Vol] 21 mg/dL High 6-20 [facility] Comment on above: Performed By: #### A ANC #### [facility] [address] [place] [address] Registered Dietetic Technician: Simeon Abraham MD Performed By: #### V BG, IOCAL, BMP, MG, GREY ####[facility] [address] [place] [address] Lab Director: Simeon Abraham MD BUN/CRE Ratio NOT REPORTED Normal -20 [facility] Comment on above: Performed By: #### A ANC #### [facility] [address] [place] [address] Registered Dietetic Technician: Simeon Abraham MD Performed By: #### V BG, IOCAL, BMP, MG, GREY ####[facility] [address] [place], [place] [phone] Director: Simeon Abraham MD Staging: NOT REPORTED Normal [facility] Comment on above: Performed By: #### A ANC #### [facility] [address] [place] [address] Registered Dietetic Technician: Simeon Abraham MD Performed By: #### V BG, IOCAL, BMP, MG, GREY ####[facility] [address] [place] [address] Lab Director: Simeon Abraham MD Calcium, Ionicon 12-27-2020 Calcium [Mass/Vol] 1.21 mmol/L Normal 1.13-1.33 [facility] Comment on above: Performed By: #### A ANC #### [facility] [address] [place] [address] Registered Dietetic Technician: Simeon Abraham MD Calcium [Moles/Vol] 1.21 mmol/L Normal 1.13-1.33 [facility] Comment on above: Performed By: #### V BG, IOCAL, BMP, MG, GREY ####[facility] [address] [place] [address] lab Director: Simeon Abraham MD EKG 12 Leadon 2 Atrial Rate 94 BPM [employer] Phone: P [place] 49 degrees [employer] Phone: P-R Interval 142 ms [employer] Phone: Q-T Interval 348 ms [employer] Phone: QRS Duration 92 ms [employer] Phone: QTc Calculation (Bazett) 435 ms [employer] Phone: R [place] -4 degrees [employer] Phone: T [place] 44 degrees [employer] Phone: Ventricular Rate 94 BPM [employer] Work Phone: Normal sinus rhythm Normal ECG [employer] Phone: Jose, Mhpn Incoming E kg Results From [facility] - 12/27/2020 12:56 PM EDT Normal sinus rhythm Normal ECG [employer] Phone: Lactate, Sepsison 12-27-2020 Lactic Acid,Sep Wbld 0.7 mmol/L Normal 0.5-1.9 [facility] Comment on above: Performed By: #### A ANC #### [facility] [address] [place] [address] Registered Dietetic Technician: Simeon Abraham MD Performed By: #### L ACDS ####[facility] [address] [place] [address] Lab Director: Simeon Abraham MD Lactic Acid, Sepsis NOT REPORTED Normal 0.5-1.9 [facility] Comment on above: Performed By: #### A ANC #### [facility] [address] [place] [address] Registered Dietetic Technician: Simeon Abraham MD Performed By: #### L ACDS ####[facility] [address] [place] [address] Lab Director: Simeon Abraham MD Lactic Acid, Sepsis NOT REPORTED 0.5 - 1. 9 mmol/L [facility] Phone: Lactic Acid, Sepsis, Whole Blood 0.7 mmol/L 0.5 - 1.9 mmol/L [employer] Phone: Magnesiumon 12-27-2020 Magnesium [Mass/Vol] 1.6 mg/dL Normal 1.6-2.6 [facility] Comment on above: Performed By: #### A ANC #### [facility] [employer] [address] [place] [address] Registered Dietetic Technician: Simeon Abraham MD Performed By: #### V BG, IOCAL, BMP, MG, GREY ####[facility] [address] [place] [address] Lab Director: Simeon Abraham MD OPERATIVE REPORTon OPERATIVE REPORT [address] [address] OPERATIVE REPORT PATIENT NAME: VANDANA STRINGER : 1965 MED REC NO: [id number] ROOM: [facility] ACCOUNT NO: [id number] ADMIT DATE: 12/20/2020 PROVIDER: Carly Sanchze DATE OF PROCEDURE: 12/26/2020 PREOPERATIVE DIAGNOSIS: Right pilon fracture. POSTOPERATIVE DIAGNOSIS: Right pilon fracture. OPERATION PERFORMED: 1. Open reduction and internal fixation of right pilon fracture; CPT 62047. 2. Removal of right ankle-spanning external fixator, CPT 42737. ATTENDING SURGEON: Carly Sanchez DO ASSISTANTS: 1. Nick Lo DO, PGY-4 2. Gerardo Liang DO, PGY-4 ANESTHESIA: General. ESTIMATED BLOOD LOSS: 250 mL. IV FLUIDS: 1800 mL of crystalloid. TOURNIQUET TIME: 130 minutes at 250 mmHg COMPLICATIONS: None. SPECIMENS: None. IMPLANTS: 1. Synthes VA-LCP anterolateral distal tibia plate. 2. Suarez [employer] Nephew EVOS 2.4-mm Straight Aby Plate. 3. Suarez [employer]hew EVOS 2.7 Flex Plate. 4. 15 mL of crushed cancellous allograft. 5. 5 mL of demineralized bone matrix. INDICATIONS: The patient is a 55-year-old male who sustained a closed right pilon fracture with severe articular impaction as a result of a fall from a height at work. He also sustained an ipsilateral distal radius fracture at the time of presentation. He was taken to the emergency department for a right ankle-spanning external fixator application and closed reduction and percutaneous pinning of the right distal radius by the attending surgeon on-call. I was now asked to assume care for definitive fixation of the right pilon fracture. At the time of my evaluation, the patient's pin sites for his external fixator were clean and dry with no signs of infection. He had no neurovascular injury and soft tissue swelling was minimal. We discussed in great detail the severity of his injury as well as the recommendation for open reduction and internal fixation and the associated risks, benefits, and alternatives. We also discussed the possibility of leaving the external fixator on in the acute phase of its healing with an anticipated removal in approximately six to eight weeks depending on the quality of fixation. The patient asked appropriate questions and ultimately agreed to proceed with the treatment plan as listed above. DESCRIPTION OF PROCEDURE: The patient was transported to the operating room. General anesthesia was administered by the anesthesia providers without complication. He was then transferred to a cantilever-type OR table in the supine position. All bony prominences were well padded. He was adequately secured to the bed. The tourniquet was placed on the right thigh. The right lower extremity was then isolated, scrubbed with Hibiclens followed by alcohol, and prepped and draped in the usual sterile fashion. A time-out was performed that included all involved parties in correctly identifying the patient, planned procedure, and operative site. After everyone agreed, we continued. We began by exsanguinating the limb and inflating the tourniquet to 250 mmHg, where it remained for a total time of 130 minutes. We then disconnected the medial and lateral bars from the external fixator. All areas that were covered by the clamps were immediately cleansed with Betadine solution on the field to maintain a sterile field. We then completed in an anterior medial approach to the distal tibia. The skin incision was curvilinear and followed the medial border of the tibialis anterior tendon. Great care was taken to not undermine the subcutaneous tissues and make full-thickness flap as well as preserve all periosteum around the cortical bone. Dissection was carried down in this area which completed in a standard fashion without any complication. The cortical fracture fragments were identified and retracted distally. They mainly remained detached to the capsule. We then reattached the medial and lateral external fixator bars to the transcalcaneal pin and applied axial distraction in order to completely visualize the joint surface. The smaller central articular impaction fragment was very carefully from the intact posterior articular segment using curved osteotomes. Great care was taken to preserve as much metaphyseal bone on this fragment as possible. Once this was mobilized, it was anatomically reduced based on the articular surface freed with direct visualization as well as fluoroscopic imaging and held with several 1.1-mm K-wires. Then the large anterior osteochondral fragment that was significantly impacted into the proximal portion of metaphysis was identified. This was disimpacted and reduced in the same fashion as described previously and held with multiple 1.1-mm K-wires. After several adjustments of the reduction, the direct visualization as well as fluoroscopic imaging in the mortise and lateral radiographs showed anatomic reduction of the joint surface. We were also able to reduce the Chaput fragment and the small piece of articular cartilage that was attached as well as the medial malleolus and the medial metaphyseal fragments. Lastly, the anterior cortical fragments were able to be reduced and also provisionally held with K-wires. Again, direct visualization as well as fluoroscopic imaging at this time confirmed acceptable reduction at all areas of injury. Therefore, we planned to proceed with the definitive fixation. We first started with a Suarez [employer] Nephew EVOS 2.4-mm Straight Aby Plate and contoured it to fit along the anterior aspect of the distal tibia. It was placed laterally so the tines as well as one screw hole would provide fixation to the Chaput fragment. We then proceeded to sequentially fill each hole with the exception of the second hole from the medial end due to location of the fracture line with 2.4 mm-cortical screws inserted using a lag-by technique fashion in order to secure and compress the articular portion. With this completed, we then selected a Synthes VA-LCP anterolateral distal tibia plate and inserted this in a retrograde fashion in a submuscular and extraperiosteal location and the plate was secured with three cortical screws proximally and we placed multiple 2.7-mm variable-angle locking screws into the distal articular block. To augment the fixation, we felt that a medial column plate was necessary. We selected a Suarez [employer]hew EVOS 2.7-mm Flex Plate and contoured it to appropriately buttress the medial fragment. This was secured with three cortical screws proximally including the apex screw. We then placed one lag screw that was transverse to the fracture and parallel to the joint. Care was taken to target the screw just anterior to the fibula so there would not any . The final screw was placed in the distal most hole of the plate in a similar pathway to a traditional medial malleolar screw. All screws had excellent purchase. Final AP mortise and lateral radiographs showed acceptable reduction and appropriate implant placement in all views. We felt that based on the quality of the fixation at all points that it would be appropriate to remove the external fixator. First we copiously irrigated the wound with 1 L of normal saline solution. We then placed 1 gm of vancomycin powder directly over the distal tibia and hardware. We then closed the deep fascial layer with 0 Vicryl suture and using [id number] sutures. We then placed the small with vancomycin power in the subcutaneous layer. We closed the skin using 3-0 nylon in an Allgower-Donati fashion. After all sutures were placed, they were equally tensioned with hemostatic clamps and then sequentially tied in order to minimize the amount of tension across the wound. All percutaneous incisions utilized for screw placement were closed with 3-0 nylon in the vertical mattress pattern. The leg was cleaned and dried. Sterile bandages were applied to all incision sites and the leg was wrapped with a sterile Webril. At this time, the remaining bars and clamps were removed from the external fixator as were all Schanz pins in their entirety without complications. There was no significant bleeding at the pin sites and sterile bandages were applied. The patient was then placed in a well-padded short leg splint at the ankle in a neutral dorsiflexed position. He was then extubated and transferred to the recovery room by the anesthesia providers without complication. POSTOPERATIVE PLAN: We will plan to obtain digital x-rays of the right ankle in the recovery room. He will be non-weightbearing for the right lower extremity for approximately 12 weeks from the date of this procedure. He will receive 23 hours of prophylactic antibiotics and may resume DVT prophylaxis on postoperative day #1 if felt to be appropriate by the Primary Service. He will be evaluated by Physical and Occupational Therapy and likely require a platform walker due to the presence of the ipsilateral distal radius fracture. Following discharge from the hospital, he will be evaluated in the Orthopedic Trauma Clinic in approximately 10-14 days from the date of this procedure. The anesthesia providers did administer a postoperative nerve block. Please refer to their documentation for full details. CARLY SANCHEZ ARNOLD/[place]_[email or web address] Doc#: [id number] CC: Normal [facility] OPERATIVE REPORT [address] [address] OPERATIVE REPORT PATIENT NAME: VANDANA STRINGER : 1965 MED REC NO: [id number] ROOM: 0167 ACCOUNT NO: [id number] ADMIT DATE: 12/20/2020 PROVIDER: Carly Sanchez DATE OF PROCEDURE: 12/26/2020 PREOPERATIVE DIAGNOSIS: Right pilon fracture. POSTOPERATIVE DIAGNOSIS: Right pilon fracture. OPERATION PERFORMED: 1. Open reduction and internal fixation of right pilon fracture; CPT 65220. 2. Removal of right ankle-spanning external fixator, CPT 24547. ATTENDING SURGEON: Carly Sanchez DO ASSISTANTS: 1. Nick Lo DO, PGY-4 2. Gerardo Liang DO, PGY-4 ANESTHESIA: General. ESTIMATED BLOOD LOSS: 250 mL. IV FLUIDS: 1800 mL of crystalloid. TOURNIQUET TIME: 130 minutes at 250 mmHg COMPLICATIONS: None. SPECIMENS: None. IMPLANTS: 1. Synthes VA-LCP anterolateral distal tibia plate. 2. Suarez [employer] Nephew EVOS 2.4-mm Straight Aby Plate. 3. Suarez [employer]hew EVOS 2.7 Flex Plate. 4. 15 mL of crushed cancellous allograft. 5. 5 mL of demineralized bone matrix. INDICATIONS: The patient is a 55-year-old male who sustained a closed right pilon fracture with severe articular impaction as a result of a fall from a height at work. He also sustained an ipsilateral distal radius fracture at the time of presentation. He was taken to the emergency department for a right ankle-spanning external fixator application and closed reduction and percutaneous pinning of the right distal radius by the attending surgeon on-call. I was now asked to assume care for definitive fixation of the right pilon fracture. At the time of my evaluation, the patient's pin sites for his external fixator were clean and dry with no signs of infection. He had no neurovascular injury and soft tissue swelling was minimal. We discussed in great detail the severity of his injury as well as the recommendation for open reduction and internal fixation and the associated risks, benefits, and alternatives. We also discussed the possibility of leaving the external fixator on in the acute phase of its healing with an anticipated removal in approximately six to eight weeks depending on the quality of fixation. The patient asked appropriate questions and ultimately agreed to proceed with the treatment plan as listed above. DESCRIPTION OF PROCEDURE: The patient was transported to the operating room. General anesthesia was administered by the anesthesia providers without complication. He was then transferred to a cantilever-type OR table in the supine position. All bony prominences were well padded. He was adequately secured to the bed. The tourniquet was placed on the right thigh. The right lower extremity was then isolated, scrubbed with Hibiclens followed by alcohol, and prepped and draped in the usual sterile fashion. A time-out was performed that included all involved parties in correctly identifying the patient, planned procedure, and operative site. After everyone agreed, we continued. We began by exsanguinating the limb and inflating the tourniquet to 250 mmHg, where it remained for a total time of 130 minutes. We then disconnected the medial and lateral bars from the external fixator. All areas that were covered by the clamps were immediately cleansed with Betadine solution on the field to maintain a sterile field. We then completed in an anterior medial approach to the distal tibia. The skin incision was curvilinear and followed the medial border of the tibialis anterior tendon. Great care was taken to not undermine the subcutaneous tissues and make full-thickness flap as well as preserve all periosteum around the cortical bone. Dissection was carried down in this area which completed in a standard fashion without any complication. The cortical fracture fragments were identified and retracted distally. They mainly remained detached to the capsule. We then reattached the medial and lateral external fixator bars to the transcalcaneal pin and applied axial distraction in order to completely visualize the joint surface. The smaller central articular impaction fragment was very carefully from the intact posterior articular segment using curved osteotomes. Great care was taken to preserve as much metaphyseal bone on this fragment as possible. Once this was mobilized, it was anatomically reduced based on the articular surface freed with direct visualization as well as fluoroscopic imaging and held with several 1.1-mm K-wires. Then the large anterior osteochondral fragment that was significantly impacted into the proximal portion of metaphysis was identified. This was disimpacted and reduced in the same fashion as described previously and held with multiple 1.1-mm K-wires. After several adjustments of the reduction, the direct visualization as well as fluoroscopic imaging in the mortise and lateral radiographs showed a (more content not included)... Normal [facility] POC Glucose Fingerstickon Glucose [Mass/Vol] 101 mg/dL 75 - 110 mg/dL [employer] Work Phone: Phosphorus, Inorg.on 021 Phosphorus, Inorg. 2.7 mg/dL Normal 2.5-4.5 [facility] Comment on above: Performed By: #### A ANC #### [facility] [address] [place] [address] Registered Dietetic Technician: Simeon Abraham MD Performed By: #### V BG, IOCAL, BMP, MG, GREY ####[facility]com[address] [place] [address] [phone] Director: Simeon Abraham MD Venous Blood Gaseson 021 Body Temp. 37.0 Normal [facility] Comment on above: Performed By: #### A ANC #### [facility] [employer] [address] [place] [address] Registered Dietetic Technician: Simeon Abraham MD Performed By: #### V BG, IOCAL, BMP, MG, GREY ####[facility]th[address]cevbi[address] [place] [address] Lab Director: Simeon Abraham MD Carboxy Hgb 1.2 % Normal 0-5 [facility] Comment on above: Result Comment: Reference Range: Non-Smokers 0-2% Average Smoker 2-4% Heavy Smoker <10% Performed By: #### A ANC #### [facility] [employer] [address] [place] [address] Registered Dietetic Technician: Simeon Abraham MD Performed By: #### V BG, IOCAL, BMP, MG, GREY ####[facility]com[address] [place] [address] Lab Director: Simeon Abraham MD FIO2 INFORMATION NOT PROVIDED Normal [facility] Comment on above: Performed By: #### A ANC #### [facility] [address] [place] [address] Registered Dietetic Technician: Simeon Abraham MD Performed By: #### V BG, IOCAL, BMP, MG, GREY ####[employer] [place] [address] Lab Director: Simeon Abraham MD HCO3 (Bld) [Moles/Vol] 24.7 mmol/L Normal 24-30 [facility] Comment on above: Performed By: #### A ANC #### [address] [address] Registered Dietetic Technician: Simeon Abraham MD Performed By: #### V BG, IOCAL, BMP, MG, GREY ####[facility] [address] [place] [address] Lab Director: Simeon Abraham MD Oxygen (Bld) [Partial pressure] 133.0 mm[Hg] High 30-50 [facility] Comment on above: Performed By: #### A ANC #### [address] [address] Registered Dietetic Technician: Simeon Abraham MD Performed By: #### V BG, IOCAL, BMP, MG, GREY ####[address] [address] Lab Director: Simeon Abraham MD Oxygen saturation in Blood 99.0 % High 60.0-85.0 [facility] Comment on above: Performed By: #### A ANC #### [address] [address] Registered Dietetic Technician: Simeon Abraham MD Performed By: #### V BG, IOCAL, BMP, MG, GREY ####[facility] [address] [place] [address] Lab Director: Simeon Abraham MD pCO2 38.7 Low 39-55 [facility] Comment on above: Performed By: #### A ANC #### [facility] [employer] [address] [place] [address] Registered Dietetic Technician: Simeon Abraham MD Performed By: #### V BG, IOCAL, BMP, MG, GREY ####[facility] [address] [place] [address] Lab Director: Simeon Abraham MD pH (Bld) 7.421 [pH] High 7.320-7.420 [facility] Comment on above: Performed By: #### A ANC #### [address] [address] Registered Dietetic Technician: Simeon Abraham MD Performed By: #### V BG, IOCAL, BMP, MG, GREY ####[address] [address] Lab Director: Simeon Abraham MD Positive Base Excess 0.8 mmol/L Normal 0.0-2.0 [facility] Comment on above: Performed By: #### A ANC #### [address] [address] Registered Dietetic Technician: Simeon Abraham MD Performed By: #### V BG, IOCAL, BMP, MG, GREY ####[address] [address] Lab Director: Simeon Abraham MD Gucci Test NOT REPORTED Normal [facility] Comment on above: Performed By: #### A ANC #### [address] [address] Registered Dietetic Technician: Simeon Abraham MD Performed By: #### V BG, IOCAL, BMP, MG, GREY ####[address] [address] Lab Director: Simeon Abraham MD Methemoglobin NOT REPORTED Normal 0.0-1.5 [facility] Comment on above: Performed By: #### A ANC #### [facility] [employer] [address] [place] [address] Registered Dietetic Technician: Simeon Abraham MD Performed By: #### V BG, IOCAL, BMP, MG, GREY ####[address] [address] Lab Director: Simeon Abraham MD Mode NOT REPORTED Normal [facility] Comment on above: Performed By: #### A ANC #### [address] [address] Registered Dietetic Technician: Simeon Abraham MD Performed By: #### V BG, IOCAL, BMP, MG, GREY ####[address] [address] Lab Director: Simeon Abraham MD Negative Base Excess NOT REPORTED Normal 0.0-2.0 [facility] Comment on above: Performed By: #### A ANC #### [address] [address] Registered Dietetic Technician: Simeon Abraham MD Performed By: #### V BG, IOCAL, BMP, MG, GREY ####[address] [address] Lab Director: Simeon Abraham MD Notification Time NOT REPORTED Normal [facility] Comment on above: Performed By: #### A ANC #### [address] [address] Registered Dietetic Technician: Simeon Abraham MD Performed By: #### V BG, IOCAL, BMP, MG, GREY ####[address] [address] Lab Director: Simeon Abraham MD Notification: NOT REPORTED Normal [facility] Comment on above: Performed By: #### A ANC #### [address] [address] Registered Dietetic Technician: Simeon Abraham MD Performed By: #### V BG, IOCAL, BMP, MG, GREY ####[address] [address] Lab Director: Simeon Abraham MD O2 Device/Flow/% NOT REPORTED Normal [facility] Comment on above: Performed By: #### A ANC #### [address] [address] Registered Dietetic Technician: Simeon Abraham MD Performed By: #### V BG, IOCAL, BMP, MG, GREY ####[address] [phone] Director: Simeon Abraham MD Oxyhemoglobin NOT REPORTED Normal 95.0-98.0 [facility] Comment on above: Performed By: #### A ANC #### [address] [address] Registered Dietetic Technician: Simeon Abraham MD Performed By: #### V BG, IOCAL, BMP, MG, GREY ####[address] [address] Lab Director: Simeon Abraham MD Pco2 Adj'd for Temp. NOT REPORTED Normal 39-55 [facility] Comment on above: Performed By: #### A ANC #### [address] [address] Registered Dietetic Technician: Simeon Abraham MD Performed By: #### V BG, IOCAL, BMP, MG, GREY ####[address] [address] Lab Director: Simeon Abraham MD PEEP/CPAP NOT REPORTED Normal [facility] Comment on above: Performed By: #### A ANC #### [address] [address] Registered Dietetic Technician: Simeon Abraham MD Performed By: #### V BG, IOCAL, BMP, MG, GREY ####[address] [address] Lab Director: Simeon Abraham MD pH Adjst'd for Temp. NOT REPORTED Normal 7.320-7.420 M [facility] Comment on above: Performed By: #### A ANC #### [address] [address] Registered Dietetic Technician: Simeon Abraham MD Performed By: #### V BG, IOCAL, BMP, MG, GREY ####[address] [phone] Director: Simeon Abraham MD pO2 Adj'd for Temp. NOT REPORTED Normal 30-50 [facility] Comment on above: Performed By: #### A ANC #### [address] [address] Registered Dietetic Technician: Simeon Abraham MD Performed By: #### V BG, IOCAL, BMP, MG, GREY ####[address] [address] Lab Director: Simeon Abraham MD PSV NOT REPORTED Normal [facility] Comment on above: Performed By: #### A ANC #### [address] [address] Registered Dietetic Technician: Simeon Abraham MD Performed By: #### V BG, IOCAL, BMP, MG, GREY ####[address] [address] Lab Director: Simeon Abraham MD Pt. Position NOT REPORTED Normal [facility] Comment on above: Performed By: #### A ANC #### [facility] [employer] [address] [place] [address] Registered Dietetic Technician: Simeon Abraham MD Performed By: #### V BG, IOCAL, BMP, MG, GREY ####[address] [phone] Director: Simeon Abraham MD Respiratory Rate NOT REPORTED Normal [facility] Comment on above: Performed By: #### V BG, IOCAL, BMP, MG, GREY ####[facility] [address] [place] [address] Lab Director: Simeon Abraham MD Set Rate NOT REPORTED Normal [facility] Comment on above: Performed By: #### A ANC #### [facility] [employer] [address] [place] [address] Registered Dietetic Technician: Simeon Abraham MD Performed By: #### V BG, IOCAL, BMP, MG, GREY ####[facility] [address] [place] [address] Lab Director: Simeon Abraham MD Site Drawn NOT REPORTED Normal [facility] Comment on above: Performed By: #### A ANC #### [facility] [employer] [address] [place] [address] Registered Dietetic Technician: Simeon Abraham MD Performed By: #### V BG, IOCAL, BMP, MG, GREY ####[facility] [address] [place] [address] Lab Director: Simeon Abraham MD Text for Respiratory NOT REPORTED Normal [facility] Comment on above: Performed By: #### A ANC #### [facility] [employer] [address] [place] [address] Registered Dietetic Technician: Simeon Abraham MD Performed By: #### V BG, IOCAL, BMP, MG, GREY ####[facility] [address] [place] [address] Lab Director: Simeon Abraham MD Total Hb NOT REPORTED Normal 12.0-16.0 [facility] Comment on above: Performed By: #### A ANC #### [facility] [employer] [address] [place] [address] Registered Dietetic Technician: Simeon Abraham MD Performed By: #### V BG, IOCAL, BMP, MG, GREY ####[facility] [address] [place], [place] [phone] Lab Director: Simeon Abraham MD Total Rate NOT REPORTED Normal [facility] Comment on above: Performed By: #### A ANC #### [facility] [address] [place] [address] Registered Dietetic Technician: Simeon Abraham MD Performed By: #### V BG, IOCAL, BMP, MG, GREY ####[facility] [address] [place] [address] Lab Director: Simeon Abraham MD VT NOT REPORTED Normal [facility] Comment on above: Performed By: #### A ANC #### [facility] [address] [place] [address] Registered Dietetic Technician: Simeon Abraham MD Performed By: #### V BG, IOCAL, BMP, MG, GREY ####[facility] [address] [place] [address] Lab Director: Simeon Abraham MD XR ABDOMEN FOR NG/OG/NE TUBE PLACEMENTon 12-27-2020 XR ABDOMEN FOR NG/OG/NE TUBE PLACEMENT EXAMINATION: ONE SUPINE XRAY VIEW(S) OF THE ABDOMEN 12/26/2020 11:03 pm COMPARISON: None. HISTORY: ORDERING SYSTEM PROVIDED HISTORY: Confirmation of course of NG/OG/NE tube and location of tip of tube TECHNOLOGIST PROVIDED HISTORY: Confirmation of course of NG/OG/NE tube and location of tip of tube Portable?->Yes FINDINGS: The NG tube distal tip projects at gastroesophageal junction. Nonobstructive bowel gas pattern. No free intra-abdominal air. Extensive abnormalities of the left chest. For further evaluation please refer to the same-day chest radiograph obtained 5 hours earlier. IMPRESSION: The NG tube distal tip projects at gastroesophageal junction. The findings were sent to the Radiology Results Communication Center at 11:29 pm on 12/26/2020to be communicated to a licensed caregiver. Interpreted by: Toshia Sage MD Signed by: Toshia Sage MD 12/26/20 Final result Normal [facility] XR CHEST PORTABLEon 12-28-19 XR CHEST PORTABLE EXAMINATION: ONE XRAY VIEW OF THE CHEST 12/27/2020 5:36 am COMPARISON: 12/26/2020 HISTORY: ORDERING SYSTEM PROVIDED HISTORY: chest tube TECHNOLOGIST PROVIDED HISTORY: chest tube FINDINGS: The enteric tube terminates at the level of the body of the stomach. Left chest tube in place terminating at the apex. Subcutaneous emphysema in the left lateral chest wall again noted. No clear delineation of pneumothorax. Basilar opacities, left greater than right, are again demonstrated. Suspect trace left effusion. Lateral inferior left rib deformities. IMPRESSION: 1. Left chest tube in place. No pneumothorax demonstrated. 2. Basilar opacities are again demonstrated without significant change, favoring atelectasis. Suspect small left effusion. Interpreted by: Jono Miller MD Signed by: Jono Miller MD 12/27/20 Final result Normal [facility] 1. Left chest tube i n place. No pneumothorax demonstrated. 2. Basilar opacities are again demonstrated without significant change, favoring atelectasis. Suspect small left effusion. [employer] Phone: EXAMINATION: ONE XRA Y VIEW OF THE CHEST 12/27/2020 5:36 am COMPARISON: 12/26/2020 HISTORY: ORDERING SYSTEM PROVIDED HISTORY: chest tube TECHNOLOGIST PROVIDED HISTORY: chest tube FINDINGS: The enteric tube terminates at the level of the body of the stomach. Left chest tube in place terminating at the apex. Subcutaneous emphysema in the left lateral chest wall again noted. No clear delineation of pneumothorax. Basilar opacities, left greater than right, are again demonstrated. Suspect trace left effusion. Lateral inferior left rib deformities. [employer] Phone: Jose, Mhpn Incoming Radiant Results From [email or web address] - 12/27/2020 8:05 AM EDT EXAMINATION: ONE XRAY VIEW OF THE CHEST 12/27/2020 5:36 am COMPARISON: 12/26/2020 HISTORY: ORDERING SYSTEM PROVIDED HISTORY: chest tube TECHNOLOGIST PROVIDED HISTORY: chest tube FINDINGS: The enteric tube terminates at the level of the body of the stomach. Left chest tube in place terminating at the apex. Subcutaneous emphysema in the left lateral chest wall again noted. No clear delineation of pneumothorax. Basilar opacities, left greater than right, are again demonstrated. Suspect trace left effusion. Lateral inferior left rib deformities. IMPRESSION: 1. Left chest tube in place. No pneumothorax demonstrated. 2. Basilar opacities are again demonstrated without significant change, favoring atelectasis. Suspect small left effusion. [employer] Phone: BASIC METABOLIC PANELon 12-08 Anion gap [Moles/Vol] 8 mmol/L Low 9 - 17 mmol/L [employer] Phone: Bun/Cre Ratio NOT REPORTED [employer] Work Phone: Calcium [Mass/Vol] 9.0 mg/dL 8.6 - 10. 4 mg/dL [employer] Phone: Chloride [Moles/Vol] 102 mmol/L 98 - 10 7 mmol/L [employer] Phone: CO2 [Moles/Vol] 24 mmol/L 20 - 31 mmol/L [employer] Phone: Creatinine [Mass/Vol] 1.2 mg/dL 0.70 - 1.20 mg/dL [employer] Phone: GFR >60 >60 mL/min [employer] Phone: GFR Non- >60 >60 mL/min [employer] Phone: GFR/1.73 sq M predicted among non-blacks MDRD (S/P/Bld) [Vol rate/Area] [employer] Phone: Comment on above: Average GFR for 50-5 9 years old: 93 mL/min/1.73sq m Chronic Kidney Disease: <60 mL/min/1.73sq m Kidney failure: <15 mL/min/1.73sq m eGFR calculated using average adult body mass. Additional eGFR calculator available at: http://www.Sepior.Unsubscribe.com/multiple_crcl_2012.htm GFR/1.73 sq M predicted among non-blacks MDRD (S/P/Bld) [Vol rate/Area] NOT REPORTED [employer] Phone: Glucose [Mass/Vol] 112 mg/dL High 70 - 99 mg/dL [employer] Work Phone: Interpretation and review of laboratory results Abnormal [facility] Phone: Potassium [Moles/Vol] 4.8 mmol/L 3.7 - 5.3 mmol/L [employer] Phone: Sodium [Moles/Vol] 134 mmol/L Low 135 - 144 mmol/L [facility] Phone: Urea nitrogen [Mass/Vol] 21 mg/dL High 6 - 20 mg/dL [facility] Phone: Anion gap [Moles/Vol] 9 mmol/L 9 - 17 mmol/L [employer] Phone: Bun/Cre Ratio NOT REPORTED [facility] Work Phone: Calcium [Mass/Vol] 9.0 mg/dL 8.6 - 10. 4 mg/dL [employer] Phone: Chloride [Moles/Vol] 104 mmol/L 98 - 10 7 mmol/L [facility] Phone: CO2 [Moles/Vol] 22 mmol/L 20 - 31 mmol/L [facility] Phone: Creatinine [Mass/Vol] 1.16 mg/dL 0.70 - 1.20 mg/dL [employer] Phone: GFR >60 >60 mL/min [employer] Phone: GFR Non- >60 >60 mL/min [facility] Phone: GFR/1.73 sq M predicted among non-blacks MDRD (S/P/Bld) [Vol rate/Area] NOT REPORTED [employer] Work Phone: GFR/1.73 sq M predicted among non-blacks MDRD (S/P/Bld) [Vol rate/Area] [employer] Phone: Comment on above: Average GFR for 50-5 9 years old: 93 mL/min/1.73sq m Chronic Kidney Disease: <60 mL/min/1.73sq m Kidney failure: <15 mL/min/1.73sq m eGFR calculated using average adult body mass. Additional eGFR calculator available at: http://www.Habeas/CookBrite_crcl_2012.htm Glucose [Mass/Vol] 113 mg/dL High 70 - 99 mg/dL [employer] Phone: Interpretation and review of laboratory results Abnormal [employer] Phone: Potassium [Moles/Vol] 4.2 mmol/L 3.7 - 5.3 mmol/L [employer] Phone: Sodium [Moles/Vol] 135 mmol/L 135 - 144 mmol/L [employer] Phone: Urea nitrogen [Mass/Vol] 21 mg/dL High 6 - 20 mg/dL [employer] Phone: Basic Metabolic Profon 12-26 (cont.) Normal [facility] Comment on above: Result Comment: Aver age GFR for 50-59 years old: 93 mL/min/1.73sq m Chronic Kidney Disease: <60 mL/min/1.73sq m Kidney failure: <15 mL/min/1.73sq m eGFR calculated using average adult body mass. Additional eGFR calculator available at: http://www.Habeas/Videonetics Technologiescrcl_2011.htm Performed By: #### C SISSY, VAUGHN, MG, GREY #### [employer] [address] [place] [address] Registered Dietetic Technician: Simeon Abraham MD Performed By: #### C BC, BMP ####[facility] [address] [place] [address] Lab Director: Simeon Abraham MD Anion gap [Moles/Vol] 9 mmol/L Normal 9-17 [facility] Comment on above: Performed By: #### C DP, BMP, MG, GREY #### [address] [address] Registered Dietetic Technician: Simeon Abraham MD Performed By: #### C BC, BMP ####[facility] [address] [place] [address] Lab Director: Simeon Abraham MD Calcium [Mass/Vol] 9.0 mg/dL Normal 8.6-10.4 [facility] Comment on above: Performed By: #### C DP, BMP, MG, GREY #### [address] [address] Registered Dietetic Technician: Simeon Abraham MD Performed By: #### C BC, BMP ####[address] [address] Lab Director: Simeon Abraham MD Chloride [Moles/Vol] 104 mmol/L Normal 98-107 [facility] Comment on above: Performed By: #### C DP, BMP, MG, GREY #### [address] [address] Registered Dietetic Technician: Simeon Abraham MD Performed By: #### C BC, BMP ####[address] [address] Lab Director: Simeon Abraham MD CO2 [Moles/Vol] 22 mmol/L Normal 20-31 [facility] Comment on above: Performed By: #### C DP, BMP, MG, GREY #### [address] [address] Registered Dietetic Technician: Simeon Abraham MD Performed By: #### C BC, BMP ####[address] [address] Lab Director: Simeon Abraham MD Creatinine [Mass/Vol] 1.16 mg/dL Normal 0.70-1.20 [facility] Comment on above: Performed By: #### C DP, BMP, MG, GREY #### [facility] [place] [address] Registered Dietetic Technician: Simeon Abraham MD Performed By: #### C BC, BMP ####[facility] [address] [place] [address] Lab Director: Simeon Abraham MD GFR, Amer >60 Normal >60 [facility] Comment on above: Performed By: #### C DP, BMP, MG, GREY #### [facility] [address] [place] [address] Registered Dietetic Technician: Simeon Abraham MD Performed By: #### C BC, BMP ####[facility] [address] [place] [address] Lab Director: Simeon Abraham MD GFR,non Amer >60 Normal >60 [facility] Comment on above: Performed By: #### C DP, BMP, MG, GREY #### [facility] [address] [place] [address] Registered Dietetic Technician: Simeon Abraham MD Performed By: #### C BC, BMP ####[facility] [address] [place] [address] Lab Director: Simeon Abraham MD Glucose [Mass/Vol] 113 mg/dL High 70-99 [facility] Comment on above: Performed By: #### C DP, BMP, MG, GREY #### [facility] [address] [place] [address] Registered Dietetic Technician: Simeon Abraham MD Performed By: #### C BC, BMP ####[facility] [address] [place] [address] Lab Director: Simeon Abraham MD Potassium [Moles/Vol] 4.2 mmol/L Normal 3.7-5.3 [facility] Comment on above: Performed By: #### C DP, BMP, MG, GREY #### [facility] [address] [place] [address] Registered Dietetic Technician: Simeon Abraham MD Performed By: #### C BC, BMP ####[facility] [address] [place] [address] Lab Director: Simeon Abraham MD Sodium [Moles/Vol] 135 mmol/L Normal 135-144 [facility] Comment on above: Performed By: #### C DP, BMP, MG, GREY #### [facility] [address] [address] Registered Dietetic Technician: Simeon Abraham MD Performed By: #### C BC, BMP ####[address] [address] Lab Director: Simeon Abraham MD Urea nitrogen [Mass/Vol] 21 mg/dL High -20 [facility] Comment on above: Performed By: #### C DP, BMP, MG, GREY #### [facility] [address] [place] [address] Registered Dietetic Technician: Simeon Abraham MD Performed By: #### C BC, BMP ####[address] [address] Lab Director: Simeon Abraham MD BUN/CRE Ratio NOT REPORTED Normal -20 [facility] Comment on above: Performed By: #### C DP, BMP, MG, GREY #### [facility] [address] [place] [address] Registered Dietetic Technician: Simeon Abraham MD Performed By: #### C BC, BMP ####[facility] [address] [place] [address] Lab Director: Simeon Abraham MD Staging: NOT REPORTED Normal [facility] Comment on above: Performed By: #### C DP, BMP, MG, GREY #### [facility] [address] [place] [address] Registered Dietetic Technician: Simeon Abraham MD Performed By: #### C BC, BMP ####[facility] [address] [place], [place] [phone] Lab Director: Simeon Abraham MD Blood Gas, Venouson 12-27-19 21 [employer] Test NOT REPORTED [employer] Work Phone: aPTT Coag (Bld) [Time] 37.0 s [employer] Work Phone: Carboxyhemoglobin 1.2 % 0 - 5 % [employer] Work Phone: Comment on above: Reference Range: Non-Smokers 0-2% Average Smoker 2-4% Heavy Smoker <10% FIO2 INFORMATION NOT PROVIDED [facility] Work Phone: HCO3, Venous 24.7 mmol/L 24 - 30 mmol/L [facility] Work Phone: Interpretation and review of laboratory results Abnormal [facility] Work Phone: Methemoglobin NOT REPORTED 0.0 - 1.5 % [employer] [facility] Work Phone: Mode NOT REPORTED [facility] Work Phone: Negative Base Excess, Kristian NOT REPORTED 0.0 - 2.0 mmol/L [facility] Work Phone: NOTIFICATION NOT REPORTED [facility] Work Phone: NOTIFICATION TIME NOT REPORTED [facility] Work Phone: O2 Device/Flow/% NOT REPORTED [facility] Work Phone: Oxygen saturation in Blood 99.0 % High 60.0 - 85.0 % [facility] Work Phone: Oxyhemoglobin NOT REPORTED 95.0 - 98.0 % [facility] Work Phone: pCO2, Kristian 38.7 Low [facility] Work Phone: pCO2, Kristian, Temp Adj NOT REPORTED [facility] Work Phone: Peep/Cpap NOT REPORTED [facility] Work Phone: pH, Kristian 7.421 High [facility] Work Phone: pH, Kristian, Temp Adj NOT REPORTED [facility] Work Phone: pO2, Kristian 133.0 High [facility] Work Phone: pO2, Kristian, Temp Adj NOT REPORTED [facility] Work Phone: Positive Base Excess, Kristian 0.8 mmol/L 0.0 - 2.0 mmol/L [facility] Work Phone: PSV NOT REPORTED [facility] Work Phone: Pt. Position NOT REPORTED [facility] Work Phone: Sample Site NOT REPORTED [employer] [facility] Work Phone: Set Rate NOT REPORTED [facility] Work Phone: Text for Respiratory NOT REPORTED [facility] Work Phone: Total Hb NOT REPORTED 12.0 - 16.0 g/dl [facility] Work Phone: Total Rate NOT REPORTED [facility] Work Phone: VT NOT REPORTED [facility] Work Phone: CALCIUM, IONIZEDon 1 Calcium [Mass/Vol] 1.21 mmol/L 1.13 - 1. 33 mmol/L [employer] Work Phone: CBCon 12-26-2020 Erythrocyte distribution width (RBC) [Ratio] 13.0 % Normal 11.8-14.4 [facility] Comment on above: Performed By: #### C DP, BMP, MG, GREY #### [facility] [address] [place] [address] Registered Dietetic Technician: Simeon Abraham MD Performed By: #### C BC, BMP ####[facility] [address] [place], [place] [phone] Director: Simeon Abraham MD Hematocrit (Bld) [Volume fraction] 38.9 % Low 40.7-50.3 [facility] Comment on above: Performed By: #### C DP, BMP, MG, GREY #### [facility] [place] [address] Registered Dietetic Technician: Simeon Abraham MD Performed By: #### C BC, BMP ####[facility] [address] [place] [address] Lab Director: Simeon Abraham MD Hemoglobin (Bld) [Mass/Vol] 12.2 g/dL Low 13.0-17.0 [facility] Comment on above: Performed By: #### C DP, BMP, MG, GREY #### [facility] [address] [place] [address] Registered Dietetic Technician: Simeon Abraham MD Performed By: #### C BC, BMP ####[facility] [address] [place] [address] [phone] Director: Simeon Abraham MD MCH (RBC) [Entitic mass] 29.9 pg Normal 25.2-33.5 [facility] Comment on above: Performed By: #### C DP, BMP, MG, GREY #### [facility] [address] [place] [address] Registered Dietetic Technician: Simeon Abraham MD Performed By: #### C BC, BMP ####[facility] [address] [place], [place] [phone] Director: Simeon Abraham MD MCHC (RBC) [Mass/Vol] 31.4 g/dL Normal 28.4-34.8 [facility] Comment on above: Performed By: #### C DP, BMP, MG, GREY #### [address] [address] Registered Dietetic Technician: Simeon Abraham MD Performed By: #### C BC, BMP ####[address] [address] Lab Director: Simeon Abraham MD MCV (RBC) [Entitic vol] 95.3 fL Normal 82.6-102.9 [facility] Comment on above: Performed By: #### C DP, BMP, MG, GREY #### [address] [address] Registered Dietetic Technician: Simeon Abraham MD Performed By: #### C BC, BMP ####[place] [address] Lab Director: Simeon Abraham MD NRBC Automated 0.0 per 100 WBC Normal 0.0 [facility] Comment on above: Performed By: #### C DP, BMP, MG, GREY #### [address] [address] Registered Dietetic Technician: Simeon Abraham MD Performed By: #### C BC, BMP ####[address] [address] Lab Director: Simeon Abraham MD Platelet mean volume (Bld) [Entitic vol] 8.7 fL Normal 8.1-13.5 [facility] Comment on above: Performed By: #### C DP, BMP, MG, GREY #### [address] [address] Registered Dietetic Technician: Simeon Abraham MD Performed By: #### C BC, BMP ####[address] [address] Lab Director: Simeon Abraham MD Platelets (Bld) [#/Vol] 269 10*3/uL Normal 138-453 [facility] Comment on above: Performed By: #### C DP, BMP, MG, GREY #### [facility] [address] [place] [address] Registered Dietetic Technician: Simeon Abraham MD Performed By: #### C BC, BMP ####[facility] [address] [place] [address] Lab Director: Simeon Abraham MD RBC (Bld) [#/Vol] 4.08 10*6/uL Low 4.21-5.77 [facility] Comment on above: Performed By: #### C DP, BMP, MG, GREY #### [facility] [address] [place] [address] Registered Dietetic Technician: Simeon Abraham MD Performed By: #### C BC, BMP ####[facility] [address] [place] [address] Lab Director: Simeon Abraham MD WBC (Bld) [#/Vol] 8.4 10*3/uL Normal 3.5-11.3 [facility] Comment on above: Performed By: #### C DP, BMP, MG, GREY #### [facility] [address] [place] [address] Registered Dietetic Technician: Simeon Abraham MD Performed By: #### C BC, BMP ####[facility] [address] [place] [address] Lab Director: Simeon Abraham MD Erythrocyte distribution width (RBC) [Ratio] 13.0 % 11.8 - 14.4 % [facility] [employer] Work Phone: Hematocrit (Bld) [Volume fraction] 38.9 % Low 40.7 - 50.3 % [facility] Work Phone: Hemoglobin (Bld) [Mass/Vol] 12.2 g/dL Low 13.0 - 17.0 g/dL [employer] Phone: Interpretation and review of laboratory results Abnormal [employer] Phone: MCH (RBC) [Entitic mass] 29.9 pg 25.2 - 33.5 pg [employer] Phone: MCHC (RBC) [Mass/Vol] 31.4 g/dL 28.4 - 34.8 g/dL [employer] Phone: MCV (RBC) [Entitic vol] 95.3 fL 82.6 - 102.9 fL [employer] Phone: Platelet mean volume (Bld) [Entitic vol] 8.7 fL 8.1 - 13.5 fL [employer] Phone: Platelets (Bld) [#/Vol] 269 10*3/uL [employer] Phone: RBC (Bld) [#/Vol] 4.08 10*6/uL Low 4.21 - 5.7 7 m/uL [employer] Phone: WBC (Bld) [#/Vol] 8.4 10*3/uL [employer] Phone: WBC (Bld) [#/Vol] 0.0 10*3/uL 0.0 per 10 0 WBC [employer] Phone: FLUORO FOR SURGICAL PROCEDUR ESon 12-26-2020 FLUORO FOR SURGICAL PROCEDURES Radiology exam is complete. No Radiologist dictation. Please follow up with ordering provider. Final result Normal [facility] Radiology exam is complete. No Radiologist dictation. Please follow up with ordering provider. [employer] Phone: HEMOGLOBIN AND HEMATOCRIT, B LOODon 12-26-2020 Hematocrit (Bld) [Volume fraction] 35.9 % Low 40.7 - 50.3 % [employer] Phone: Hemoglobin (Bld) [Mass/Vol] 12.2 g/dL Low 13.0 - 17.0 g/dL [employer] Phone: Interpretation and review of laboratory results Abnormal [employer] Phone: Hgb/Hcton 12-26-2020 Hematocrit (Bld) [Volume fraction] 35.9 % Low 40.7-50.3 [facility] Comment on above: Performed By: #### C DP, BMP, MG, GREY #### [employer] [address] [place] [address] Registered Dietetic Technician: Simeon Abraham MD Performed By: #### H H ####[employer] [place] [address] Lab Director: Simeon Abraham MD Hemoglobin (Bld) [Mass/Vol] 12.2 g/dL Low 13.0-17.0 [facility] Comment on above: Performed By: #### C DP, BMP, MG, GREY #### [employer] [address] [place] [address] Registered Dietetic Technician: Simeon Abraham MD Performed By: #### H H ####[employer] [place] [address] Lab Director: Simeon Abraham MD Magnesiumon 12-26-2020 Magnesium [Mass/Vol] 1.6 mg/dL 1.6 - 2 .6 mg/dL [employer] Phone: Phosphoruson 12-26-2020 Phosphate [Mass/Vol] 2.7 mg/dL 2.5 - 4 .5 mg/dL [employer] Phone: XR ABDOMEN FOR NG/OG/NE TUBE PLACEMENTon 12-26-2020 The NG tube distal t ip projects at gastroesophageal junction. The findings were sent to the Radiology Results Communication Center at 11:29 pm on 12/26/2020to be communicated to a licensed caregiver. [employer] Phone: EXAMINATION: ONE SUP INE XRAY VIEW(S) OF THE ABDOMEN 12/26/2020 11:03 pm COMPARISON: None. HISTORY: ORDERING SYSTEM PROVIDED HISTORY: Confirmation of course of NG/OG/NE tube and location of tip of tube TECHNOLOGIST PROVIDED HISTORY: Confirmation of course of NG/OG/NE tube and location of tip of tube Portable?->Yes FINDINGS: The NG tube distal tip projects at gastroesophageal junction. Nonobstructive bowel gas pattern. No free intra-abdominal air. Extensive abnormalities of the left chest. For further evaluation please refer to the same-day chest radiograph obtained 5 hours earlier. [employer] Phone: Jose, pn Incoming Radiant Results From [facility] - 12/26/2020 11:33 PM EDT EXAMINATION: ONE SUPINE XRAY VIEW(S) OF THE ABDOMEN 12/26/2020 11:03 pm COMPARISON: None. HISTORY: ORDERING SYSTEM PROVIDED HISTORY: Confirmation of course of NG/OG/NE tube and location of tip of tube TECHNOLOGIST PROVIDED HISTORY: Confirmation of course of NG/OG/NE tube and location of tip of tube Portable?->Yes FINDINGS: The NG tube distal tip projects at gastroesophageal junction. Nonobstructive bowel gas pattern. No free intra-abdominal air. Extensive abnormalities of the left chest. For further evaluation please refer to the same-day chest radiograph obtained 5 hours earlier. IMPRESSION: The NG tube distal tip projects at gastroesophageal junction. The findings were sent to the Radiology Results Communication Center at 11:29 pm on 12/26/2020to be communicated to a licensed caregiver. [employer] Phone: XR ANKLE RIGHT (MIN 3 VIEWS) on 12-26-2020 XR ANKLE RIGHT (MIN 3 VIEWS) EXAMINATION: THREE XRAY VIEWS OF THE RIGHT ANKLE 12/26/2020 1:19 pm COMPARISON: Right ankle radiographs performed 12/21/2020. HISTORY: ORDERING SYSTEM PROVIDED HISTORY: post op PACU once out of OR TECHNOLOGIST PROVIDED HISTORY: post op PACU once out of OR include all orthopedic hardware Acuity: Acute Type of Exam: Ongoing FINDINGS: There is hardware fixation of the distal right tibia without hardware complication. There is degenerative joint disease. There is soft tissue swelling. IMPRESSION: Hardware fixation of the distal tibia without complication. Interpreted by: Curry Elliott MD Signed by: Curry Elliott MD 12/26/20 Final result Normal [facility] Erythrocyte distribution width (RBC) [Ratio] Hardware fixation of the distal tibia without complication. [employer] Phone: Jose, Mhpn Incoming Radiant Results From [facility] - 12/26/2020 1:58 PM EDT EXAMINATION: THREE XRAY VIEWS OF THE RIGHT ANKLE 12/26/2020 1:19 pm COMPARISON: Right ankle radiographs performed 12/21/2020. HISTORY: ORDERING SYSTEM PROVIDED HISTORY: post op PACU once out of OR TECHNOLOGIST PROVIDED HISTORY: post op PACU once out of OR include all orthopedic hardware Acuity: Acute Type of Exam: Ongoing FINDINGS: There is hardware fixation of the distal right tibia without hardware complication. There is degenerative joint disease. There is soft tissue swelling. IMPRESSION: Hardware fixation of the distal tibia without complication. [employer] Phone: EXAMINATION: THREE X RAY VIEWS OF THE RIGHT ANKLE 12/26/2020 1:19 pm COMPARISON: Right ankle radiographs performed 12/21/2020. HISTORY: ORDERING SYSTEM PROVIDED HISTORY: post op PACU once out of OR TECHNOLOGIST PROVIDED HISTORY: post op PACU once out of OR include all orthopedic hardware Acuity: Acute Type of Exam: Ongoing FINDINGS: There is hardware fixation of the distal right tibia without hardware complication. There is degenerative joint disease. There is soft tissue swelling. [employer] Phone: XR CHEST PORTABLEon 12-27-19 XR CHEST PORTABLE EXAMINATION: ONE XRAY VIEW OF THE CHEST 12/26/2020 6:13 pm COMPARISON: None. HISTORY: ORDERING SYSTEM PROVIDED HISTORY: s/p new L chest tube placement TECHNOLOGIST PROVIDED HISTORY: s/p new L chest tube placement FINDINGS: Chest tube terminates at the left apex. No pneumothorax. Subcutaneous gas along the left lateral chest. Bibasilar interstitial infiltrates. Heart and mediastinum normal. Bony thorax intact except for rib fractures on the left. IMPRESSION: Left rib fractures and subcutaneous gas. Chest tube. No pneumothorax. Bibasilar interstitial infiltrates. Interpreted by: Jim Del Rio MD Signed by: Jim Del Rio MD 12/26/20 Final result Normal [facility] Left rib fractures a nd subcutaneous gas. Chest tube. No pneumothorax. Bibasilar interstitial infiltrates. [employer] Phone: EXAMINATION: ONE XRA Y VIEW OF THE CHEST 12/26/2020 6:13 pm COMPARISON: None. HISTORY: ORDERING SYSTEM PROVIDED HISTORY: s/p new L chest tube placement TECHNOLOGIST PROVIDED HISTORY: s/p new L chest tube placement FINDINGS: Chest tube terminates at the left apex. No pneumothorax. Subcutaneous gas along the left lateral chest. Bibasilar interstitial infiltrates. Heart and mediastinum normal. Bony thorax intact except for rib fractures on the left. [employer] Phone: Jose, pn Incoming Radiant Results From [employer] - 12/26/2020 6:27 PM EDT EXAMINATION: ONE XRAY VIEW OF THE CHEST 12/26/2020 6:13 pm COMPARISON: None. HISTORY: ORDERING SYSTEM PROVIDED HISTORY: s/p new L chest tube placement TECHNOLOGIST PROVIDED HISTORY: s/p new L chest tube placement FINDINGS: Chest tube terminates at the left apex. No pneumothorax. Subcutaneous gas along the left lateral chest. Bibasilar interstitial infiltrates. Heart and mediastinum normal. Bony thorax intact except for rib fractures on the left. IMPRESSION: Left rib fractures and subcutaneous gas. Chest tube. No pneumothorax. Bibasilar interstitial infiltrates. [employer] Phone: XR CHEST PORTABLE EXAMINATION: ONE XRAY VIEW OF THE CHEST 12/26/2020 1:19 pm COMPARISON: Chest radiograph performed 12/25/2020. HISTORY: ORDERING SYSTEM PROVIDED HISTORY: s/p OR, L chest tube with known airleak TECHNOLOGIST PROVIDED HISTORY: s/p OR, L chest tube with known airleak Reason for Exam: upr Acuity: Acute Type of Exam: Ongoing FINDINGS: There are trace effusions with adjacent infiltrates. There is a similar to slightly larger left-sided pneumothorax measuring approximately 5.0 cm at the apex. The mediastinal structures are stable. The upper abdomen unremarkable. There is a left-sided chest tube that has been pulled back and the tip projects over the left midlung. There is subcutaneous emphysema along the left lateral chest wall. IMPRESSION: Trace effusions with adjacent infiltrates. Similar to slightly larger left apical pneumothorax and the left-sided chest tube has been pulled back with the tip projecting over the left mid lung. Subcutaneous emphysema along the left lateral chest wall. Interpreted by: Curry Elliott MD Signed by: Curry Elliott MD 12/26/20 Final result Normal [facility] Jose, Mhpn Incoming Radiant Results From [facility] [facility] - 12/26/2020 2:00 PM EDT EXAMINATION: ONE XRAY VIEW OF THE CHEST 12/26/2020 1:19 pm COMPARISON: Chest radiograph performed 12/25/2020. HISTORY: ORDERING SYSTEM PROVIDED HISTORY: s/p OR, L chest tube with known airleak TECHNOLOGIST PROVIDED HISTORY: s/p OR, L chest tube with known airleak Reason for Exam: upr Acuity: Acute Type of Exam: Ongoing FINDINGS: There are trace effusions with adjacent infiltrates. There is a similar to slightly larger left-sided pneumothorax measuring approximately 5.0 cm at the apex. The mediastinal structures are stable. The upper abdomen unremarkable. There is a left-sided chest tube that has been pulled back and the tip projects over the left midlung. There is subcutaneous emphysema along the left lateral chest wall. IMPRESSION: Trace effusions with adjacent infiltrates. Similar to slightly larger left apical pneumothorax and the left-sided chest tube has been pulled back with the tip projecting over the left mid lung. Subcutaneous emphysema along the left lateral chest wall. [employer] Phone: Trace effusions with adjacent infiltrates. Similar to slightly larger left apical pneumothorax and the left-sided chest tube has been pulled back with the tip projecting over the left mid lung. Subcutaneous emphysema along the left lateral chest wall. [employer] Phone: EXAMINATION: ONE XRA Y VIEW OF THE CHEST 12/26/2020 1:19 pm COMPARISON: Chest radiograph performed 12/25/2020. HISTORY: ORDERING SYSTEM PROVIDED HISTORY: s/p OR, L chest tube with known airleak TECHNOLOGIST PROVIDED HISTORY: s/p OR, L chest tube with known airleak Reason for Exam: upr Acuity: Acute Type of Exam: Ongoing FINDINGS: There are trace effusions with adjacent infiltrates. There is a similar to slightly larger left-sided pneumothorax measuring approximately 5.0 cm at the apex. The mediastinal structures are stable. The upper abdomen unremarkable. There is a left-sided chest tube that has been pulled back and the tip projects over the left midlung. There is subcutaneous emphysema along the left lateral chest wall. [employer] Work Phone: CT ANKLE RIGHT WO CONTRASTon 12-25-2020 CT ANKLE RIGHT WO CONTRAST EXAMINATION: CT OF THE RIGHT ANKLE WITHOUT CONTRAST 12/22/2020 9:52 am TECHNIQUE: CT of the right ankle was performed without the administration of intravenous contrast. Multiplanar reformatted images are provided for review. Dose modulation, iterative reconstruction, and/or weight based adjustment of the mA/kV was utilized to reduce the radiation dose to as low as reasonably achievable. COMPARISON: Right ankle radiograph dated 12/21/2020 HISTORY ORDERING SYSTEM PROVIDED HISTORY: post-op TECHNOLOGIST PROVIDED HISTORY: post-op Reason for Exam: post-op Acuity: Unknown Type of Exam: Subsequent/Follow-up FINDINGS: There is redemonstration of external fixation device, which is partially visualized on this study. The screws enter the mid to distal diaphysis of the tibia and traverse the calcaneus.. As seen on the prior study, there is a severely comminuted moderately displaced intra-articular fracture of the distal tibia. There is an approximately 2.0 X 3.3 cm defect of the tibial plafond with a depth of approximately 1.6 cm. There are foci of ossicle seen along the tip of the medial malleolus and along the medial margin of the talus as well as along the tip of the lateral malleolus, some of which appear well corticated, likely reflecting a combination of acute and chronic avulsion fragments. There is a 6 mm ossicle seen along the lateral body of the talus, which appears more well corticated and favored to reflect sequela of an old trauma. There is an os trigonum. The talar dome appears intact. There are productive degenerative changes seen along the dorsal neck of the talus. The calcaneus appears intact. The cuboid, the navicular, and the cuneiform and visualized portions of the metatarsals appear intact. There is diffuse soft tissue swelling of the ankle. No discrete measurable fluid collection is seen. Vascular calcification changes are seen. IMPRESSION: Redemonstration of changes of external fixation of severely comminuted intra-articular fracture of the distal tibia with marked disruption of the articular surface of the tibial plafond. Small ossicle seen along the tips of the medial and lateral malleoli likely reflecting a combination of acute and chronic avulsion fragments. Interpreted by: Garrett Mauricio Signed by: Garrett Mauricio 12/24/20 Final result Normal [facility] XR CHEST PORTABLEon 12-26-19 XR CHEST PORTABLE EXAMINATION: ONE XRAY VIEW OF THE CHEST 12/25/2020 5:45 am COMPARISON: Chest radiograph performed 12/24/2020. HISTORY: ORDERING SYSTEM PROVIDED HISTORY: intubated TECHNOLOGIST PROVIDED HISTORY: intubated Reason for Exam: portable upright/ not intubated Acuity: Acute Type of Exam: Ongoing FINDINGS: There are bilateral effusions with adjacent infiltrates. There is no pneumothorax. Heart is prominent. The upper abdomen is unremarkable. There is a left-sided chest tube in stable position. There is mild subcutaneous emphysema along the left lateral chest wall. There is redemonstration of multiple left-sided rib fractures. IMPRESSION: Small bilateral effusions with adjacent infiltrates. Stable left-sided chest tube with adjacent subcutaneous emphysema along the left lateral chest wall. Interpreted by: Curry Elliott MD Signed by: Curry Elliott MD 12/25/20 Final result Normal [facility] Jose, Mhpn Incoming Radiant Results From [facility] - 12/25/2020 7:26 AM EDT EXAMINATION: ONE XRAY VIEW OF THE CHEST 12/25/2020 5:45 am COMPARISON: Chest radiograph performed 12/24/2020. HISTORY: ORDERING SYSTEM PROVIDED HISTORY: intubated TECHNOLOGIST PROVIDED HISTORY: intubated Reason for Exam: portable upright/ not intubated Acuity: Acute Type of Exam: Ongoing FINDINGS: There are bilateral effusions with adjacent infiltrates. There is no pneumothorax. Heart is prominent. The upper abdomen is unremarkable. There is a left-sided chest tube in stable position. There is mild subcutaneous emphysema along the left lateral chest wall. There is redemonstration of multiple left-sided rib fractures. IMPRESSION: Small bilateral effusions with adjacent infiltrates. Stable left-sided chest tube with adjacent subcutaneous emphysema along the left lateral chest wall. [employer] Phone: EXAMINATION: ONE XRA Y VIEW OF THE CHEST 12/25/2020 5:45 am COMPARISON: Chest radiograph performed 12/24/2020. HISTORY: ORDERING SYSTEM PROVIDED HISTORY: intubated TECHNOLOGIST PROVIDED HISTORY: intubated Reason for Exam: portable upright/ not intubated Acuity: Acute Type of Exam: Ongoing FINDINGS: There are bilateral effusions with adjacent infiltrates. There is no pneumothorax. Heart is prominent. The upper abdomen is unremarkable. There is a left-sided chest tube in stable position. There is mild subcutaneous emphysema along the left lateral chest wall. There is redemonstration of multiple left-sided rib fractures. [employer] Phone: Small bilateral effusions with adjacent infiltrates. Stable left-sided chest tube with adjacent subcutaneous emphysema along the left lateral chest wall. [employer] Phone: BASIC METABOLIC PANELon 12-08 Anion gap [Moles/Vol] 6 mmol/L Low 9 - 17 mmol/L [employer] Phone: Bun/Cre Ratio NOT REPORTED [employer] Work Phone: Calcium [Mass/Vol] 8.4 mg/dL Low 8.6 - 10. 4 mg/dL [employer] Phone: Chloride [Moles/Vol] 105 mmol/L 98 - 10 7 mmol/L [employer] Phone: CO2 [Moles/Vol] 28 mmol/L 20 - 31 mmol/L [employer] Phone: Creatinine [Mass/Vol] 0.92 mg/dL 0.70 - 1.20 mg/dL [employer] Phone: GFR >60 >60 mL/min [employer] Phone: GFR Non- >60 >60 mL/min [employer] Phone: GFR/1.73 sq M predicted among non-blacks MDRD (S/P/Bld) [Vol rate/Area] NOT REPORTED [facility] Phone: GFR/1.73 sq M predicted among non-blacks MDRD (S/P/Bld) [Vol rate/Area] [facility] Phone: Comment on above: Average GFR for 50-5 9 years old: 93 mL/min/1.73sq m Chronic Kidney Disease: <60 mL/min/1.73sq m Kidney failure: <15 mL/min/1.73sq m eGFR calculated using average adult body mass. Additional eGFR calculator available at: http://www.Habeas/CookBrite_crcl_2012.htm Glucose [Mass/Vol] 102 mg/dL High 70 - 99 mg/dL [facility] Phone: Potassium [Moles/Vol] 4.2 mmol/L 3.7 - 5.3 mmol/L [facility] Phone: Sodium [Moles/Vol] 139 mmol/L 135 - 144 mmol/L [facility] Phone: Urea nitrogen [Mass/Vol] 15 mg/dL 6 - 20 mg/dL [facility] [employer] Phone: BLOOD BANK SPECIMENon 2020 Blood Bank Specimen NOT REPORTED [facility] [employer] Phone: Basic Metabolic Profon 12-24 (cont.) Normal [facility] Comment on above: Result Comment: Aver age GFR for 50-59 years old: 93 mL/min/1.73sq m Chronic Kidney Disease: <60 mL/min/1.73sq m Kidney failure: <15 mL/min/1.73sq m eGFR calculated using average adult body mass. Additional eGFR calculator available at: http://www.Habeas/CookBrite_crcl_2011.htm Performed By: #### C DP, BMP, MG, GREY #### [employer] [address] [place] [address] Registered Dietetic Technician: Simeon Abraham MD Performed By: #### C DP, BMP, MG, GREY ####[facility] [address] [place] [address] Lab Director: Simeon Abraham MD Anion gap [Moles/Vol] 6 mmol/L Low 9-17 [facility] Comment on above: Performed By: #### C DP, BMP, MG, GREY #### [facility] [address] [place] [address] Registered Dietetic Technician: Simeon Abraham MD Performed By: #### C DP, BMP, MG, GREY ####[facility] [address] [place] [address] Lab Director: Simeon Abraham MD Calcium [Mass/Vol] 8.4 mg/dL Low 8.6-10.4 [facility] Comment on above: Performed By: #### C DP, BMP, MG, GREY #### [place] [address] Registered Dietetic Technician: Simeon Abraham MD Performed By: #### C DP, BMP, MG, GREY ####[address] [address] Lab Director: Simeon Abraham MD Chloride [Moles/Vol] 105 mmol/L Normal 98-107 [facility] Comment on above: Performed By: #### C DP, BMP, MG, GREY #### [facility] [employer] [address] [place] [address] Registered Dietetic Technician: Simeon Abraham MD Performed By: #### C DP, BMP, MG, GREY ####[facility] [address] [place] [address] Lab Director: Simeon Abraham MD CO2 [Moles/Vol] 28 mmol/L Normal 20-31 [facility] Comment on above: Performed By: #### C DP, BMP, MG, GREY #### [facility] [employer] [address] [place] [address] Registered Dietetic Technician: Simeon Abraham MD Performed By: #### C DP, BMP, MG, GREY ####[facility] [address] [place] [address] Lab Director: Simeon Abraham MD Creatinine [Mass/Vol] 0.92 mg/dL Normal 0.70-1.20 [facility] Comment on above: Performed By: #### C DP, BMP, MG, GREY #### [facility] [address] [place] [address] Registered Dietetic Technician: Simeon Abraham MD Performed By: #### C DP, BMP, MG, GREY ####[facility] [address] [place] [address] Lab Director: Simeon Abraham MD GFR, Amer >60 Normal >60 [facility] Comment on above: Performed By: #### C DP, BMP, MG, GREY #### [facility] [address] [place] [address] Registered Dietetic Technician: Simeon Abraham MD Performed By: #### C DP, BMP, MG, GREY ####[facility] [address] [place] [address] Lab Director: Simeon Abraham MD GFR,non Amer >60 Normal >60 [facility] Comment on above: Performed By: #### C DP, BMP, MG, GREY #### [facility] [address] [place] [address] Registered Dietetic Technician: Simeon Abraham MD Performed By: #### C DP, BMP, MG, GREY ####[facility] [address] [place] [address] Lab Director: Simeon Abraham MD Glucose [Mass/Vol] 102 mg/dL High 70-99 [facility] Comment on above: Performed By: #### C DP, BMP, MG, GREY #### [facility] [address] [place] [address] Registered Dietetic Technician: Simeon Abraham MD Performed By: #### C DP, BMP, MG, GREY ####[facility] [address] [place], [place] [phone] Director: Simeon Abraham MD Potassium [Moles/Vol] 4.2 mmol/L Normal 3.7-5.3 [facility] Comment on above: Performed By: #### C DP, BMP, MG, GREY #### [facility] [address] [place] [address] Registered Dietetic Technician: Simeon Abraham MD Performed By: #### C DP, BMP, MG, GREY ####[facility] [address] [place] [address] Lab Director: Simeon Abraham MD Sodium [Moles/Vol] 139 mmol/L Normal 135-144 [facility] Comment on above: Performed By: #### C DP, BMP, MG, GREY #### [facility] [address] [place] [address] Registered Dietetic Technician: Simeon Abraham MD Performed By: #### C DP, BMP, MG, GREY ####[facility] [address] [place] [address] Lab Director: Simeon Abraham MD Urea nitrogen [Mass/Vol] 15 mg/dL Normal 6-20 [facility] Comment on above: Performed By: #### C DP, BMP, MG, GREY #### [facility] [address] [place] [address] Registered Dietetic Technician: Simeon Abraham MD Performed By: #### C DP, BMP, MG, GREY ####[facility] [address] [place] [address] Lab Director: Simeon Abraham MD BUN/CRE Ratio NOT REPORTED Normal 9-20 [facility] Comment on above: Performed By: #### C DP, BMP, MG, GREY #### [facility] [address] [place] [address] Registered Dietetic Technician: Simeon Abraham MD Performed By: #### C DP, BMP, MG, GREY ####[facility] [address] [place] [address] Lab Director: Simeon Abraham MD Staging: NOT REPORTED Normal [facility] Comment on above: Performed By: #### C DP, BMP, MG, GREY #### [facility] [address] [place] [address] Registered Dietetic Technician: Simeon Abraham MD Performed By: #### C DP, BMP, MG, GREY ####[facility] [address] [place] [address] Lab Director: Simeon Abraham MD Blood Bank Specimenon 2020 Blood Bank Specimen NOT REPORTED Normal [facility] CBC WITH AUTO DIFFERENTIALon 12-24-2020 Basophils (Bld) [#/Vol] 0.03 10*3/uL [employer] Phone: Basophils/100 WBC (Bld) 0 % 0 - 2 % [employer] Phone: Differential Type NOT REPORTED [employer] Phone: Eosinophils (Bld) [#/Vol] 0.18 10*3/uL [employer] Phone: Eosinophils/100 WBC (Bld) 3 % 1 - 4 % [employer] Phone: Erythrocyte distribution width (RBC) [Ratio] 13.0 % 11.8 - 14.4 % [employer] Phone: Hematocrit (Bld) [Volume fraction] 33.4 % Low 40.7 - 50.3 % [employer] Phone: Hemoglobin (Bld) [Mass/Vol] 10.8 g/dL Low 13.0 - 17.0 g/dL [employer] Phone: Immature granulocytes (Bld) [#/Vol] 0 % 0 [employer] Phone: Immature granulocytes (Bld) [#/Vol] 10*3/uL [employer] Phone: Interpretation and review of laboratory results Abnormal [employer] Phone: Lymphocytes (Bld) [#/Vol] 1.90 10*3/uL [employer] Phone: Lymphocytes/100 WBC (Bld) 28 % 24 - 43 % [employer] Phone: MCH (RBC) [Entitic mass] 30.2 pg 25.2 - 33.5 pg [employer] Phone: MCHC (RBC) [Mass/Vol] 32.3 g/dL 28.4 - 34.8 g/dL [employer] Phone: MCV (RBC) [Entitic vol] 93.3 fL 82.6 - 102.9 fL [employer] Phone: Monocytes (Bld) [#/Vol] 0.66 10*3/uL [employer] Phone: Monocytes/100 WBC (Bld) 10 % 3 - 12 % [employer] Phone: Platelet mean volume (Bld) [Entitic vol] 8.9 fL 8.1 - 13.5 fL [employer] Phone: Platelets (Bld) [#/Vol] NOT REPORTED [employer] Phone: Platelets (Bld) [#/Vol] 214 10*3/uL [employer] Phone: RBC (Bld) [#/Vol] 3.58 10*6/uL Low 4.21 - 5.7 7 m/uL [employer] Phone: RBC morphology finding Nom (Bld) NOT REPORTED [employer] Work Phone: Segmented neutrophils/100 WBC (Bld) 59 % 36 - 65 % [employer] Work Phone: Segs Absolute 3.91 [facility] Work Phone: WBC (Bld) [#/Vol] 0.0 10*3/uL 0.0 per 10 0 WBC [employer] Work Phone: WBC (Bld) [#/Vol] 6.7 10*3/uL [employer] Work Phone: WBC Morphology NOT REPORTED [employer] [facility] Work Phone: CBC with Diffon 12-24-2020 Abs. Basophil 0.03 k/uL Normal 0.00-0.20 [facility] Comment on above: Performed By: #### C DP, BMP, MG, GREY #### [facility] [address] [place] [address] Registered Dietetic Technician: Simeon Abraham MD Performed By: #### C DP, BMP, MG, GREY ####[employer] [place] [address] Lab Director: Simeon Abraham MD Abs.Imm.Granulocyte <0.03 Normal 0.00-0.30 [facility] Comment on above: Performed By: #### C DP, BMP, MG, GREY #### [employer] [address] [place] [address] Registered Dietetic Technician: Simeon Abraham MD Performed By: #### C DP, BMP, MG, GREY ####[employer] [place] [address] Lab Director: Simeon Abraham MD Abs.Neutrophil (Seg) 3.91 k/uL Normal 1.50-8.10 [facility] Comment on above: Performed By: #### C DP, BMP, MG, GREY #### [employer] [address] [place] [address] Registered Dietetic Technician: Simeon Abraham MD Performed By: #### C DP, BMP, MG, GREY ####[facility] [address] [place] [address] Lab Director: Simeon Abraham MD Basophils/100 WBC (Bld) 0 % Normal 0-2 [facility] Comment on above: Performed By: #### C DP, BMP, MG, GREY #### [facility] [address] [place] [address] Registered Dietetic Technician: Simeon Abraham MD Performed By: #### C DP, BMP, MG, GREY ####[facility] [address] [place] [address] Lab Director: Simeon Abraham MD Eosinophils (Bld) [#/Vol] 0.18 10*3/uL Normal 0.00-0.44 [facility] Comment on above: Performed By: #### C DP, BMP, MG, GREY #### [facility] [employer] [address] [place] [address] Registered Dietetic Technician: Simeon Abraham MD Performed By: #### C DP, BMP, MG, GREY ####[facility] [address] [place] [address] Lab Director: Simeon Abraham MD Eosinophils/100 WBC (Bld) 3 % Normal 1-4 [facility] Comment on above: Performed By: #### C DP, BMP, MG, GREY #### [facility] [address] [place] [address] Registered Dietetic Technician: Simeon Abraham MD Performed By: #### C DP, BMP, MG, GREY ####[facility] [address] [place] [address] Lab Director: Simeon Abraham MD Erythrocyte distribution width (RBC) [Ratio] 13.0 % Normal 11.8-14.4 [facility] Comment on above: Performed By: #### C DP, BMP, MG, GREY #### [place] [address] Registered Dietetic Technician: Simeon Abraham MD Performed By: #### C DP, BMP, MG, GREY ####[place] [address] Lab Director: Simeon Abraham MD Hematocrit (Bld) [Volume fraction] 33.4 % Low 40.7-50.3 [facility] Comment on above: Performed By: #### C DP, BMP, MG, GREY #### [place] [address] Registered Dietetic Technician: Simeon Abraham MD Performed By: #### C DP, BMP, MG, GREY ####[place] [address] Lab Director: Simeon Abraham MD Hemoglobin (Bld) [Mass/Vol] 10.8 g/dL Low 13.0-17.0 [facility] Comment on above: Performed By: #### C DP, BMP, MG, GREY #### [place] [address] Registered Dietetic Technician: Simeon Abraham MD Performed By: #### C DP, BMP, MG, GREY ####[place] [address] Lab Director: Simeon Abraham MD Immature granulocytes (Bld) [#/Vol] 0 % Normal 0 [facility] Comment on above: Performed By: #### C DP, BMP, MG, GREY #### [facility] [employer] [address] [place] [address] Registered Dietetic Technician: Simeon Abraham MD Immature granulocytes/100 WBC (Bld) 0 % Normal 0 [facility] Comment on above: Performed By: #### C DP, BMP, MG, GREY ####[address] [address] Lab Director: Simeon Abraham MD Lymphocytes (Bld) [#/Vol] 1.90 10*3/uL Normal 1.10-3.70 [facility] Comment on above: Performed By: #### C DP, BMP, MG, GREY #### [facility] [address] [place] [address] Registered Dietetic Technician: Simeon Abraham MD Performed By: #### C DP, BMP, MG, GREY ####[place] [address] Lab Director: Simeon Abraham MD Lymphocytes/100 WBC (Bld) 28 % Normal 24-43 [facility] Comment on above: Performed By: #### C DP, BMP, MG, GREY #### [place] [address] Registered Dietetic Technician: iSmeon Abraham MD Performed By: #### C DP, BMP, MG, GREY ####[place] [address] Lab Director: Simeon Abraham MD MCH (RBC) [Entitic mass] 30.2 pg Normal 25.2-33.5 [facility] Comment on above: Performed By: #### C DP, BMP, MG, GREY #### [place] [address] Registered Dietetic Technician: Simeon Abraham MD Performed By: #### C DP, BMP, MG, GREY ####[place] [address] Lab Director: Simeon Abraham MD MCHC (RBC) [Mass/Vol] 32.3 g/dL Normal 28.4-34.8 [facility] Comment on above: Performed By: #### C DP, BMP, MG, GREY #### [address] [address] Registered Dietetic Technician: Simeon Abraham MD Performed By: #### C DP, BMP, MG, GREY ####[address] [phone] Director: Simeon Abraham MD MCV (RBC) [Entitic vol] 93.3 fL Normal 82.6-102.9 [facility] Comment on above: Performed By: #### C DP, BMP, MG, GREY #### [address] [address] Registered Dietetic Technician: Simeon Abraham MD Performed By: #### C DP, BMP, MG, GREY ####[address] [phone] Director: Simeon Abraham MD Monocytes (Bld) [#/Vol] 0.66 10*3/uL Normal 0.10-1.20 [facility] Comment on above: Performed By: #### C DP, BMP, MG, GREY #### [address] [address] Registered Dietetic Technician: Simeon Abraham MD Performed By: #### C DP, BMP, MG, GREY ####[address] [phone] Director: Simeon Abraham MD Monocytes/100 WBC (Bld) 10 % Normal 3-12 [facility] Comment on above: Performed By: #### C DP, BMP, MG, GREY #### [facility] [employer] [address] [place] [address] Registered Dietetic Technician: Simeon Abraham MD Performed By: #### C DP, BMP, MG, GREY ####[address] [phone] Director: Simeon Abraham MD Neutrophil (Seg) 59 % Normal 36-65 [facility] Comment on above: Performed By: #### C DP, BMP, MG, GREY #### [facility] [place] [address] Registered Dietetic Technician: Simeon Abraham MD Performed By: #### C DP, BMP, MG, GREY ####[facility] [address] [place] [address] Lab Director: Simeon Abraham MD NRBC Automated 0.0 per 100 WBC Normal 0.0 [facility] Comment on above: Performed By: #### C DP, BMP, MG, GREY #### [address] [address] Registered Dietetic Technician: Simeon Abraham MD Performed By: #### C DP, BMP, MG, GREY ####[address] [address] Lab Director: Simeon Abraham MD Platelet mean volume (Bld) [Entitic vol] 8.9 fL Normal 8.1-13.5 [facility] Comment on above: Performed By: #### C DP, BMP, MG, GREY #### [place] [address] Registered Dietetic Technician: Simeon Abraham MD Performed By: #### C DP, BMP, MG, GREY ####[facility] [address] [place] [address] Lab Director: Simeon Abraham MD Platelets (Bld) [#/Vol] 214 10*3/uL Normal 138-453 [facility] Comment on above: Performed By: #### C DP, BMP, MG, GREY #### [facility] [place] [address] Registered Dietetic Technician: Simeon Abraham MD Performed By: #### C DP, BMP, MG, GREY ####[facility] [address] [place] [address] Lab Director: Simeon Abraham MD RBC (Bld) [#/Vol] 3.58 10*6/uL Low 4.21-5.77 [facility] Comment on above: Performed By: #### C DP, BMP, MG, GREY #### [facility] [place] [address] Registered Dietetic Technician: Simeon Abraham MD Performed By: #### C DP, BMP, MG, GREY ####[facility] [address] [place] [address] Lab Director: Simeon Abraham MD WBC (Bld) [#/Vol] 6.7 10*3/uL Normal 3.5-11.3 [facility] Comment on above: Performed By: #### C DP, BMP, MG, GREY #### [facility] [address] [place] [address] Registered Dietetic Technician: Simeon Abraham MD Performed By: #### C DP, BMP, MG, GREY ####[facility] [address] [place] [address] [phone] Director: Simeon Abraham MD Auto Diff Performed NOT REPORTED Normal [facility] Comment on above: Performed By: #### C DP, BMP, MG, GREY #### [facility] [address] [place] [address] Registered Dietetic Technician: Simeon Abraham MD Performed By: #### C DP, BMP, MG, GREY ####[facility] [address] [place] [address] [phone] Director: Simeon Abraham MD Platelet Estimate NOT REPORTED Normal [facility] Comment on above: Performed By: #### C DP, BMP, MG, GREY ####[facility] [address] [place], [place] [phone] Director: Simeon Abraham MD Platelets (Bld) [#/Vol] NOT REPORTED Normal [facility] Comment on above: Performed By: #### C DP, BMP, MG, GREY #### [facility] [address] [place] [address] Registered Dietetic Technician: Simeon Abraham MD RBC morphology finding Nom (Bld) NOT REPORTED Normal [facility] Comment on above: Performed By: #### C DP, BMP, MG, GREY #### [facility] [address] [place] [address] Registered Dietetic Technician: Simeon Abraham MD Performed By: #### C DP, BMP, MG, GREY ####[employer] [address] [place] [address] Lab Director: Simeon Abraham MD WBC Morphology NOT REPORTED Normal [facility] Comment on above: Performed By: #### C DP, BMP, MG, GREY #### [facility] [address] [place] [address] Registered Dietetic Technician: Simeon Abraham MD Performed By: #### C DP, BMP, MG, GREY ####[employer] [address] [place] [address] Lab Director: Simeon Abraham MD CT ANKLE RIGHT WO CONTRASTon 12-24-2020 Redemonstration of changes of external fixation of severely comminuted intra-articular fracture of the distal tibia with marked disruption of the articular surface of the tibial plafond. Small ossicle seen along the tips of the medial and lateral malleoli likely reflecting a combination of acute and chronic avulsion fragments. [facility] [employer] Work Phone: EXAMINATION: CT OF T HE RIGHT ANKLE WITHOUT CONTRAST 12/22/2020 9:52 am TECHNIQUE: CT of the right ankle was performed without the administration of intravenous contrast. Multiplanar reformatted images are provided for review. Dose modulation, iterative reconstruction, and/or weight based adjustment of the mA/kV was utilized to reduce the radiation dose to as low as reasonably achievable. COMPARISON: Right ankle radiograph dated 12/21/2020 HISTORY ORDERING SYSTEM PROVIDED HISTORY: post-op TECHNOLOGIST PROVIDED HISTORY: post-op Reason for Exam: post-op Acuity: Unknown Type of Exam: Subsequent/Follow-up FINDINGS: There is redemonstration of external fixation device, which is partially visualized on this study. The screws enter the mid to distal diaphysis of the tibia and traverse the calcaneus.. As seen on the prior study, there is a severely comminuted moderately displaced intra-articular fracture of the distal tibia. There is an approximately 2.0 X 3.3 cm defect of the tibial plafond with a depth of approximately 1.6 cm. There are foci of ossicle seen along the tip of the medial malleolus and along the medial margin of the talus as well as along the tip of the lateral malleolus, some of which appear well corticated, likely reflecting a combination of acute and chronic avulsion fragments. There is a 6 mm ossicle seen along the lateral body of the talus, which appears more well corticated and favored to reflect sequela of an old trauma. There is an os trigonum. The talar dome appears intact. There are productive degenerative changes seen along the dorsal neck of the talus. The calcaneus appears intact. The cuboid, the navicular, and the cuneiform and visualized portions of the metatarsals appear intact. There is diffuse soft tissue swelling of the ankle. No discrete measurable fluid collection is seen. Vascular calcification changes are seen. [employer] Work Phone: Jose, [facility] Incoming Radiant Results From [facility] [facility] - 12/24/2020 11:32 PM EDT EXAMINATION: CT OF THE RIGHT ANKLE WITHOUT CONTRAST 12/22/2020 9:52 am TECHNIQUE: CT of the right ankle was performed without the administration of intravenous contrast. Multiplanar reformatted images are provided for review. Dose modulation, iterative reconstruction, and/or weight based adjustment of the mA/kV was utilized to reduce the radiation dose to as low as reasonably achievable. COMPARISON: Right ankle radiograph dated 12/21/2020 HISTORY ORDERING SYSTEM PROVIDED HISTORY: post-op TECHNOLOGIST PROVIDED HISTORY: post-op Reason for Exam: post-op Acuity: Unknown Type of Exam: Subsequent/Follow-up FINDINGS: There is redemonstration of external fixation device, which is partially visualized on this study. The screws enter the mid to distal diaphysis of the tibia and traverse the calcaneus.. As seen on the prior study, there is a severely comminuted moderately displaced intra-articular fracture of the distal tibia. There is an approximately 2.0 X 3.3 cm defect of the tibial plafond with a depth of approximately 1.6 cm. There are foci of ossicle seen along the tip of the medial malleolus and along the medial margin of the talus as well as along the tip of the lateral malleolus, some of which appear well corticated, likely reflecting a combination of acute and chronic avulsion fragments. There is a 6 mm ossicle seen along the lateral body of the talus, which appears more well corticated and favored to reflect sequela of an old trauma. There is an os trigonum. The talar dome appears intact. There are productive degenerative changes seen along the dorsal neck of the talus. The calcaneus appears intact. The cuboid, the navicular, and the cuneiform and visualized portions of the metatarsals appear intact. There is diffuse soft tissue swelling of the ankle. No discrete measurable fluid collection is seen. Vascular calcification changes are seen. IMPRESSION: Redemonstration of changes of external fixation of severely comminuted intra-articular fracture of the distal tibia with marked disruption of the articular surface of the tibial plafond. Small ossicle seen along the tips of the medial and lateral malleoli likely reflecting a combination of acute and chronic avulsion fragments. [facility] Work Phone: MAGNESIUMon 12-24-2020 Magnesium [Mass/Vol] 1.8 mg/dL 1.6 - 2 .6 mg/dL [facility] Work Phone: Magnesiumon 12-24-2020 Magnesium [Mass/Vol] 1.8 mg/dL Normal 1.6-2.6 [facility] Comment on above: Performed By: #### C DP, BMP, MG, GREY #### [employer] [address] [place] [address] Registered Dietetic Technician: Simeon Abraham MD Performed By: #### C DP, BMP, MG, GREY ####[facility] [address] [place] [address] Lab Director: Simeon Abraham MD Otheron 12-24-2020 Interpretation and review of laboratory results Abnormal [employer] Phone: PHOSPHORUSon 12-24-2020 Phosphate [Mass/Vol] 1.5 mg/dL Low 2.5 - 4 .5 mg/dL [facility] Phone: Phosphorus, Inorg.on 021 Phosphorus, Inorg. 1.5 mg/dL Low 2.5-4.5 [facility] Comment on above: Performed By: #### C DP, BMP, MG, GREY #### [employer] [address] [place], [place] [phone] Registered Dietetic Technician: Simeon Abraham MD Performed By: #### C DP, BMP, MG, GREY ####[facility] [address] [place], [place] [phone] Lab Director: Simeon Abraham MD Type + Screenon 12-24-2020 Type + Screen Sample Expiration 12/27/2020,2359 Arm Band Number [id number] ABO/Rh(D) B POSITIVE Antibody Screen NEGATIVE Unit Number [id number] Blood Component Type Leukocyte Reduced Red Cell Unit Division 00 Status of Unit REL FROM ALLOC Transfusion Status OK TO TRANSFUSE Crossmatch Result COMPATIBLE Unit Number [id number] Blood Component Type Leukocyte Reduced Red Cell Unit Division 00 Status of Unit REL FROM ALLOC Transfusion Status OK TO TRANSFUSE Crossmatch Result COMPATIBLE Normal [facility] Comment on above: Performed By: #### C DP, BMP, MG, GREY #### [employer] [address] [place], [place] [phone] Registered Dietetic Technician: Simeon Abraham MD Performed By: #### T YS ####[employer] [address] [place] [address] [phone] lab Director: Simeon Abraham MD XR CHEST PORTABLEon 12-25-19 21 XR CHEST PORTABLE EXAMINATION: ONE XRAY VIEW OF THE CHEST 12/24/2020 6:54 am COMPARISON: 23 December 2020 HISTORY: ORDERING SYSTEM PROVIDED HISTORY: intubated TECHNOLOGIST PROVIDED HISTORY: intubated FINDINGS: AP portable view of the chest time stamped at 622 hours demonstrates overlying cardiac monitoring electrodes. Stable cardiomegaly is noted. A left-sided chest tube terminates in the midline upper chest. Subcutaneous emphysema is present around the entry point of the chest 2 left side. Left effusion and left basilar opacity show minimal change. No appreciable extrapleural air is noted. Continued right basilar opacity and suspected right effusion are noted with Jesus. This may represent atelectasis and/or airspace disease. IMPRESSION: Little change in bilateral pulmonary opacities. Indwelling chest tube left side with subcutaneous emphysema around the entry point. Interpreted by: Aliza Aragon MD Signed by: Aliza Aragon MD 12/24/20 Final result Normal [facility] Little change in bilateral pulmonary opacities. Indwelling chest tube left side with subcutaneous emphysema around the entry point. [employer] Phone: Jose, pn Incoming Radiant Results From [email or web address] - 12/24/2020 8:29 AM EDT EXAMINATION: ONE XRAY VIEW OF THE CHEST 12/24/2020 6:54 am COMPARISON: 23 December 2020 HISTORY: ORDERING SYSTEM PROVIDED HISTORY: intubated TECHNOLOGIST PROVIDED HISTORY: intubated FINDINGS: AP portable view of the chest time stamped at 622 hours demonstrates overlying cardiac monitoring electrodes. Stable cardiomegaly is noted. A left-sided chest tube terminates in the midline upper chest. Subcutaneous emphysema is present around the entry point of the chest 2 left side. Left effusion and left basilar opacity show minimal change. No appreciable extrapleural air is noted. Continued right basilar opacity and suspected right effusion are noted with Jesus. This may represent atelectasis and/or airspace disease. IMPRESSION: Little change in bilateral pulmonary opacities. Indwelling chest tube left side with subcutaneous emphysema around the entry point. [employer] Phone: EXAMINATION: ONE XRA Y VIEW OF THE CHEST 12/24/2020 6:54 am COMPARISON: 23 December 2020 HISTORY: ORDERING SYSTEM PROVIDED HISTORY: intubated TECHNOLOGIST PROVIDED HISTORY: intubated FINDINGS: AP portable view of the chest time stamped at 622 hours demonstrates overlying cardiac monitoring electrodes. Stable cardiomegaly is noted. A left-sided chest tube terminates in the midline upper chest. Subcutaneous emphysema is present around the entry point of the chest 2 left side. Left effusion and left basilar opacity show minimal change. No appreciable extrapleural air is noted. Continued right basilar opacity and suspected right effusion are noted with Jesus. This may represent atelectasis and/or airspace disease. [employer] Work Phone: BASIC METABOLIC PANEL 12-08 Anion gap [Moles/Vol] 7 mmol/L Low 9 - 17 mmol/L [employer] Phone: Bun/Cre Ratio NOT REPORTED [employer] Work Phone: Calcium [Mass/Vol] 8.3 mg/dL Low 8.6 - 10. 4 mg/dL [employer] Phone: Chloride [Moles/Vol] 107 mmol/L 98 - 10 7 mmol/L [employer] Phone: CO2 [Moles/Vol] 27 mmol/L 20 - 31 mmol/L [employer] Phone: Creatinine [Mass/Vol] 0.98 mg/dL 0.70 - 1.20 mg/dL [employer] Phone: GFR >60 >60 mL/min [employer] Phone: GFR Non- >60 >60 mL/min [employer] Phone: GFR/1.73 sq M predicted among non-blacks MDRD (S/P/Bld) [Vol rate/Area] [employer] Phone: Comment on above: Average GFR for 50-5 9 years old: 93 mL/min/1.73sq m Chronic Kidney Disease: <60 mL/min/1.73sq m Kidney failure: <15 mL/min/1.73sq m eGFR calculated using average adult body mass. Additional eGFR calculator available at: http://www.globalrph.com/multiple_crcl_2012.htm GFR/1.73 sq M predicted among non-blacks MDRD (S/P/Bld) [Vol rate/Area] NOT REPORTED [employer] Phone: Glucose [Mass/Vol] 97 mg/dL 70 - 99 mg/dL [facility] Phone: Interpretation and review of laboratory results Abnormal [employer] Phone: Potassium [Moles/Vol] 4.1 mmol/L 3.7 - 5.3 mmol/L [facility] Phone: Sodium [Moles/Vol] 141 mmol/L 135 - 144 mmol/L [facility] Phone: Urea nitrogen [Mass/Vol] 16 mg/dL 6 - 20 mg/dL [employer] Phone: Basic Metabolic Profon 12-23 (cont.) Normal [facility] Comment on above: Result Comment: Aver age GFR for 50-59 years old: 93 mL/min/1.73sq m Chronic Kidney Disease: <60 mL/min/1.73sq m Kidney failure: <15 mL/min/1.73sq m eGFR calculated using average adult body mass. Additional eGFR calculator available at: http://www.Habeas/multiple_crcl_2012.htm Performed By: #### A ANC #### [employer] [address] [place] [address] [phone] Registered Dietetic Technician: Simeon Abraham MD Performed By: #### E RTPF, VD25 #### [employer] [address] [place] [address] [phone] Registered Dietetic Technician: Simeon Abraham MD Anion gap [Moles/Vol] 7 mmol/L Low 9-17 [facility] Comment on above: Performed By: #### A ANC #### [employer] [address] [place] [address] [phone] Registered Dietetic Technician: Simeon Abraham MD Performed By: #### E RTREY25 #### [address] [address] Registered Dietetic Technician: Simeon Abraham MD Calcium [Mass/Vol] 8.3 mg/dL Low 8.6-10.4 [facility] Comment on above: Performed By: #### A ANC #### [address] [address] Registered Dietetic Technician: Simeon Abraham MD Performed By: #### E RODRIGUES25 #### [address] [address] Registered Dietetic Technician: Simeon Abraham MD Chloride [Moles/Vol] 107 mmol/L Normal 98-107 [facility] Comment on above: Performed By: #### A ANC #### [address] [address] Registered Dietetic Technician: Simeon Abraham MD Performed By: #### E RODRIGUES25 #### [address] [address] Registered Dietetic Technician: Simeon Abraham MD CO2 [Moles/Vol] 27 mmol/L Normal 20-31 [facility] Comment on above: Performed By: #### A ANC #### [address] [address] Registered Dietetic Technician: Siemon Abraham MD Performed By: #### E RODRIGUES25 #### [facility] [employer] [address] [place] [address] Registered Dietetic Technician: Simeon Abraham MD Creatinine [Mass/Vol] 0.98 mg/dL Normal 0.70-1.20 [facility] Comment on above: Performed By: #### A ANC #### [address] [address] Registered Dietetic Technician: Simeon Abraham MD Performed By: #### E RTPF, VD25 #### [facility] [employer] [address] [place] [address] Registered Dietetic Technician: Simeon Abraham MD GFR, Amer >60 Normal >60 [facility] Comment on above: Performed By: #### A ANC #### [address] [address] Registered Dietetic Technician: Simeon Abraham MD Performed By: #### E RTPF, VD25 #### [facility] [employer] [address] [place] [address] Registered Dietetic Technician: Simeon Abraham MD GFR,non Amer >60 Normal >60 [facility] Comment on above: Performed By: #### A ANC #### [address] [id number] Registered Dietetic Technician: Simeon Abraham MD Performed By: #### E RTPF, VD25 #### [facility] [employer] [address] [place] [address] Registered Dietetic Technician: Simeon Abraham MD Glucose [Mass/Vol] 97 mg/dL Normal 70-99 [facility] Comment on above: Performed By: #### A ANC #### [address] [address] Registered Dietetic Technician: Simeon Abraham MD Performed By: #### E RTPF, VD25 #### [facility] [employer] [address] [place] [address] Registered Dietetic Technician: Simeon Abraham MD Potassium [Moles/Vol] 4.1 mmol/L Normal 3.7-5.3 [facility] Comment on above: Performed By: #### A ANC #### [facility] [employer] [address] [place] [address] Registered Dietetic Technician: Simeon Abraham MD Performed By: #### E RTPF, VD25 #### [email or web address] [address] [place] [address] Registered Dietetic Technician: Simeon Abraham MD Sodium [Moles/Vol] 141 mmol/L Normal 135-144 [facility] Comment on above: Performed By: #### A ANC #### [facility] [employer] [address] [place] [address]658 Registered Dietetic Technician: Simeon Abraham MD Performed By: #### E RTPF VD25 #### [email or web address] [address] [place] [address] Registered Dietetic Technician: Simeon Abraham MD Urea nitrogen [Mass/Vol] 16 mg/dL Normal 6-20 [facility] Comment on above: Performed By: #### A ANC #### [facility] Tech [employer] [address] [place] [address] Registered Dietetic Technician: Simeon Abraham MD Performed By: #### E RTIDALIA VD25 #### [facility] [employer] [address] [place] [address] Registered Dietetic Technician: Simeon Abraham MD BUN/CRE Ratio NOT REPORTED Normal -20 [facility] Comment on above: Performed By: #### A ANC #### [facility] Tech [employer] [address] [place] [address] Registered Dietetic Technician: Simeon Abraham MD Performed By: #### E RTREY25 #### [facility] Tech [employer] [address] [place] [address] 41250 Registered Dietetic Technician: Simeon Abraham MD Staging: NOT REPORTED Normal [facility] Comment on above: Performed By: #### A ANC #### [facility] [employer] [address] [place] [address] Registered Dietetic Technician: Simeon Abraham MD Performed By: #### E RTPF, VD25 #### [email or web address] [address] [place] [address] [phone] Registered Dietetic Technician: Simeon Abraham MD CBC WITH AUTO DIFFERENTIALon 12-23-2020 Basophils (Bld) [#/Vol] 0.04 10*3/uL [employer] Phone: Basophils/100 WBC (Bld) 1 % 0 - 2 % [employer] Phone: Differential Type NOT REPORTED [employer] Phone: Eosinophils (Bld) [#/Vol] 0.15 10*3/uL [employer] Phone: Eosinophils/100 WBC (Bld) 2 % 1 - 4 % [employer] Phone: Erythrocyte distribution width (RBC) [Ratio] 13.2 % 11.8 - 14.4 % [employer] Phone: Hematocrit (Bld) [Volume fraction] 32.1 % Low 40.7 - 50.3 % [employer] Phone: Hemoglobin (Bld) [Mass/Vol] 10.5 g/dL Low 13.0 - 17.0 g/dL [employer] Phone: Immature granulocytes (Bld) [#/Vol] 0.04 10*3/uL [employer] Phone: Immature granulocytes (Bld) [#/Vol] 1 % High 0 [employer] Phone: Interpretation and review of laboratory results Abnormal [employer] Phone: Lymphocytes (Bld) [#/Vol] 2.07 10*3/uL [employer] Phone: Lymphocytes/100 WBC (Bld) 28 % 24 - 43 % [employer] Phone: MCH (RBC) [Entitic mass] 31.2 pg 25.2 - 33.5 pg [employer] Phone: MCHC (RBC) [Mass/Vol] 32.7 g/dL 28.4 - 34.8 g/dL [employer] Phone: MCV (RBC) [Entitic vol] 95.3 fL 82.6 - 102.9 fL [employer] Phone: Monocytes (Bld) [#/Vol] 0.68 10*3/uL [employer] Phone: Monocytes/100 WBC (Bld) 9 % 3 - 12 % [employer] Work Phone: Platelet mean volume (Bld) [Entitic vol] 8.9 fL 8.1 - 13.5 fL [employer] Phone: Platelets (Bld) [#/Vol] NOT REPORTED [employer] Phone: Platelets (Bld) [#/Vol] 174 10*3/uL [employer] Phone: RBC (Bld) [#/Vol] 3.37 10*6/uL Low 4.21 - 5.7 7 m/uL [employer] Work Phone: RBC morphology finding Nom (Bld) NOT REPORTED [employer] Phone: Segmented neutrophils/100 WBC (Bld) 59 % 36 - 65 % [employer] Phone: Segs Absolute 4.46 [employer] Work Phone: WBC (Bld) [#/Vol] 0.0 10*3/uL 0.0 per 10 0 WBC [employer] Work Phone: WBC (Bld) [#/Vol] 7.4 10*3/uL [employer] Phone: WBC Morphology NOT REPORTED [employer] [facility] Work Phone: CBC with Diffon 12-23-2020 Abs. Basophil 0.04 k/uL Normal 0.00-0.20 [facility] Comment on above: Performed By: #### A ANC #### [address] [address] Registered Dietetic Technician: Simeon Abraham MD Performed By: #### E RODRIGUES25 #### [address] [address] Registered Dietetic Technician: Simeon Abraham MD Abs.Imm.Granulocyte 0.04 k/uL Normal 0.00-0.30 [facility] Comment on above: Performed By: #### A ANC #### [address] [address] Registered Dietetic Technician: Simeon Abraham MD Performed By: #### E RODRIGUES25 #### [place] [address] Registered Dietetic Technician: Simeon Abraahm MD Abs.Neutrophil (Seg) 4.46 k/uL Normal 1.50-8.10 [facility] Comment on above: Performed By: #### A ANC #### [address] [address] Registered Dietetic Technician: Simeon Abraham MD Performed By: #### E RODRIGUES25 #### [address] [address] Registered Dietetic Technician: Simeon Abraham MD Basophils/100 WBC (Bld) 1 % Normal 0-2 [facility] Comment on above: Performed By: #### A ANC #### [place] [address] Registered Dietetic Technician: Simeon Abraham MD Performed By: #### E RODRIGUES25 #### [address] [address] Registered Dietetic Technician: Simeon Abraham MD Eosinophils (Bld) [#/Vol] 0.15 10*3/uL Normal 0.00-0.44 [facility] Comment on above: Performed By: #### A ANC #### [address] [address] Registered Dietetic Technician: Simeon Abraham MD Performed By: #### E RODRIGUES25 #### [address] [address] Registered Dietetic Technician: Simeon Abraham MD Eosinophils/100 WBC (Bld) 2 % Normal 1-4 [facility] Comment on above: Performed By: #### A ANC #### [address] [address] Registered Dietetic Technician: Simeon Abraham MD Performed By: #### E RODRIGUES25 #### [address] [address] Registered Dietetic Technician: Simeon Abraham MD Erythrocyte distribution width (RBC) [Ratio] 13.2 % Normal 11.8-14.4 [facility] Comment on above: Performed By: #### A ANC #### [address] [address] Registered Dietetic Technician: Simeon Abraham MD Performed By: #### E RODRIGUES25 #### [address] [address] Registered Dietetic Technician: Simeon Abraham MD Hematocrit (Bld) [Volume fraction] 32.1 % Low 40.7-50.3 [facility] Comment on above: Performed By: #### A ANC #### [address] [address] Registered Dietetic Technician: Simeon Abraham MD Performed By: #### E RODRIGUES25 #### [address] [address] Registered Dietetic Technician: Simeon Abraham MD Hemoglobin (Bld) [Mass/Vol] 10.5 g/dL Low 13.0-17.0 [facility] Comment on above: Performed By: #### A ANC #### [address] [address] Registered Dietetic Technician: Simeon Abraham MD Performed By: #### E RTLuizaF, VD25 #### [address] [address] Registered Dietetic Technician: Simeon Abraham MD Immature granulocytes (Bld) [#/Vol] 1 % High 0 [facility] Comment on above: Performed By: #### A ANC #### [address] [address] Registered Dietetic Technician: Simeon Abraham MD Immature granulocytes/100 WBC (Bld) 1 % High 0 [facility] Comment on above: Performed By: #### E RTPRebeka, VD25 #### [address] [address] Registered Dietetic Technician: Simeon Abraham MD Lymphocytes (Bld) [#/Vol] 2.07 10*3/uL Normal 1.10-3.70 [facility] Comment on above: Performed By: #### A ANC #### [address] [address] Registered Dietetic Technician: Simeon Abraham MD Performed By: #### E RTIDALIA VD25 #### [address] [address] Registered Dietetic Technician: Simeon Abraham MD Lymphocytes/100 WBC (Bld) 28 % Normal 24-43 [facility] Comment on above: Performed By: #### A ANC #### [facility] Tech [employer] [address] [place] [address] Registered Dietetic Technician: Simeon Abraham MD Performed By: #### E RTPF, VD25 #### [facility] Tech [employer] [address] [place] [address] Registered Dietetic Technician: Simeon Abraham MD MCH (RBC) [Entitic mass] 31.2 pg Normal 25.2-33.5 [facility] Comment on above: Performed By: #### A ANC #### [address] [address] Registered Dietetic Technician: Simeon Abraham MD Performed By: #### E RODRIGUES25 #### [address] [address] Registered Dietetic Technician: Simeon Abraham MD MCHC (RBC) [Mass/Vol] 32.7 g/dL Normal 28.4-34.8 [facility] Comment on above: Performed By: #### A ANC #### [address] [address] Registered Dietetic Technician: Simeon Abraham MD Performed By: #### E RODRIGUES25 #### [address] [address] Registered Dietetic Technician: Simeon Abraham MD MCV (RBC) [Entitic vol] 95.3 fL Normal 82.6-102.9 [facility] Comment on above: Performed By: #### A ANC #### [address] [address] Registered Dietetic Technician: Simeon Abraham MD Performed By: #### E RODRIGUES25 #### [address] [address] Registered Dietetic Technician: Simeon Abraham MD Monocytes (Bld) [#/Vol] 0.68 10*3/uL Normal 0.10-1.20 [facility] Comment on above: Performed By: #### A ANC #### [address] [address] Registered Dietetic Technician: Simeon Abraham MD Performed By: #### E RODRIGUES25 #### [address] [address] Registered Dietetic Technician: Simeon Abraham MD Monocytes/100 WBC (Bld) 9 % Normal 3-12 [facility] Comment on above: Performed By: #### A ANC #### [address] [address] Registered Dietetic Technician: Simeon Abraham MD Performed By: #### E RTIDALIA VD25 #### [address] [address] Registered Dietetic Technician: Simeon Abraham MD Neutrophil (Seg) 59 % Normal 36-65 [facility] [place] Comment on above: Performed By: #### A ANC #### [address] [address] Registered Dietetic Technician: Simeon Abraham MD Performed By: #### E RTERY25 #### [address] [address] Registered Dietetic Technician: Simeon Abraham MD NRBC Automated 0.0 per 100 WBC Normal 0.0 [facility] Comment on above: Performed By: #### A ANC #### [address] [address] Registered Dietetic Technician: Simeon Abraham MD Performed By: #### E RTIDALIA, VD25 #### [address] [address] Registered Dietetic Technician: Simeon Abraham MD Platelet mean volume (Bld) [Entitic vol] 8.9 fL Normal 8.1-13.5 [facility] Comment on above: Performed By: #### A ANC #### [address] [address] Registered Dietetic Technician: Simeon Abraham MD Performed By: #### E RTIDALIA, VD25 #### [address] [address] Registered Dietetic Technician: Simeon Abraham MD Platelets (Bld) [#/Vol] 174 10*3/uL Normal 138-453 [facility] Comment on above: Performed By: #### A ANC #### [address] [address] Registered Dietetic Technician: Simeon Abraham MD Performed By: #### E RTPF, VD25 #### [address] [address] Registered Dietetic Technician: Simeon Abraham MD RBC (Bld) [#/Vol] 3.37 10*6/uL Low 4.21-5.77 [facility] Comment on above: Performed By: #### A ANC #### [address] [address] Registered Dietetic Technician: Simeon Abraham MD Performed By: #### E RTREY25 #### [address] [address] Registered Dietetic Technician: Simeon Abraham MD WBC (Bld) [#/Vol] 7.4 10*3/uL Normal 3.5-11.3 [facility] Comment on above: Performed By: #### A ANC #### [address] [address] Registered Dietetic Technician: Simeon Abraham MD Performed By: #### E RTREY25 #### [address] [address] Registered Dietetic Technician: Simeon Abraham MD Auto Diff Performed NOT REPORTED Normal [facility] Comment on above: Performed By: #### A ANC #### [address] [address] Registered Dietetic Technician: Simeon Abraham MD Performed By: #### E RTLuizaF, VD25 #### [facility] Tech [employer] [address] [place] [address] Registered Dietetic Technician: Simeon Abraham MD Platelet Estimate NOT REPORTED Normal [facility] Comment on above: Performed By: #### E RODRIGUES25 #### [address] [address] Registered Dietetic Technician: Simeon Abraham MD Platelets (Bld) [#/Vol] NOT REPORTED Normal [facility] Comment on above: Performed By: #### A ANC #### [address] [address] Registered Dietetic Technician: Simeon Abraham MD RBC morphology finding Nom (Bld) NOT REPORTED Normal [facility] Comment on above: Performed By: #### A ANC #### [address] [address] Registered Dietetic Technician: Simeon Abraham MD Performed By: #### E RODRIGUES25 #### [address] [address] Registered Dietetic Technician: Simeon Abraham MD WBC Morphology NOT REPORTED Normal [facility] [place] Comment on above: Performed By: #### A ANC #### [address] [address] Registered Dietetic Technician: Simeon Abraham MD Performed By: #### E RODRIGUES25 #### [address] [address] Registered Dietetic Technician: Simeon Abraham MD MAGNESIUMon 12-23-2020 Magnesium [Mass/Vol] 1.8 mg/dL 1.6 - 2 .6 mg/dL [facility] [employer] Work Phone: Magnesiumon 12-23-2020 Magnesium [Mass/Vol] 1.8 mg/dL Normal 1.6-2.6 [facility] Comment on above: Performed By: #### C OVRB #### [address] [address] Registered Dietetic Technician: Simeon Abraham MD Performed By: #### E [facility], VD25 #### [facility] Tech [employer] [facility] [place] [address] Registered Dietetic Technician: Simeon Abraham MD POC Glucose Fingerstickon Glucose [Mass/Vol] 86 mg/dL 75 - 110 mg/dL [employer] Work Phone: XR CHEST PORTABLEon 12-24-19 XR CHEST PORTABLE EXAMINATION: ONE XRAY VIEW OF THE CHEST 12/23/2020 7:32 am COMPARISON: 12/22/2020, 12/21/2020 HISTORY: ORDERING SYSTEM PROVIDED HISTORY: intubated TECHNOLOGIST PROVIDED HISTORY: intubated Reason for Exam: upr FINDINGS: The endotracheal tube is no longer identified. The enteric tube terminates at the level of the body of the stomach. Left chest tube appears unchanged projecting in the medial mid left hemithorax. Increasing left basilar opacity and left effusion. The right basilar opacity and small right effusion appear unchanged. No evidence for pneumothorax. IMPRESSION: 1. Endotracheal tube no longer identified. Enteric tube terminates at the level of the body of the stomach. 2. Left basilar opacity has increased, which may represent atelectasis and increasing effusion. 3. Unchanged appearance of probable right basilar atelectasis with small effusion. 4. Unchanged appearance of left chest tube. Interpreted by: Jono Miller MD Signed by: Jono Miller MD 12/23/20 Final result Normal [facility] Jose, Mhpn Incoming Radiant Results From [email or web address] - 12/23/2020 8:54 AM EDT EXAMINATION: ONE XRAY VIEW OF THE CHEST 12/23/2020 7:32 am COMPARISON: 12/22/2020, 12/21/2020 HISTORY: ORDERING SYSTEM PROVIDED HISTORY: intubated TECHNOLOGIST PROVIDED HISTORY: intubated Reason for Exam: upr FINDINGS: The endotracheal tube is no longer identified. The enteric tube terminates at the level of the body of the stomach. Left chest tube appears unchanged projecting in the medial mid left hemithorax. Increasing left basilar opacity and left effusion. The right basilar opacity and small right effusion appear unchanged. No evidence for pneumothorax. IMPRESSION: 1. Endotracheal tube no longer identified. Enteric tube terminates at the level of the body of the stomach. 2. Left basilar opacity has increased, which may represent atelectasis and increasing effusion. 3. Unchanged appearance of probable right basilar atelectasis with small effusion. 4. Unchanged appearance of left chest tube. [employer] Phone: 1. Endotracheal tube no longer identified. Enteric tube terminates at the level of the body of the stomach. 2. Left basilar opacity has increased, which may represent atelectasis and increasing effusion. 3. Unchanged appearance of probable right basilar atelectasis with small effusion. 4. Unchanged appearance of left chest tube. [employer] Phone: EXAMINATION: ONE XRA Y VIEW OF THE CHEST 12/23/2020 7:32 am COMPARISON: 12/22/2020, 12/21/2020 HISTORY: ORDERING SYSTEM PROVIDED HISTORY: intubated TECHNOLOGIST PROVIDED HISTORY: intubated Reason for Exam: upr FINDINGS: The endotracheal tube is no longer identified. The enteric tube terminates at the level of the body of the stomach. Left chest tube appears unchanged projecting in the medial mid left hemithorax. Increasing left basilar opacity and left effusion. The right basilar opacity and small right effusion appear unchanged. No evidence for pneumothorax. [employer] Phone: Arterial Blood Gas, POCon Gucci Test NOT APPLICABLE [employer] Phone: aPTT Coag (Bld) [Time] NOT REPORTED [facility] Phone: FIO2 30.0 [facility] Phone: Mode CPAP/PS [facility] Phone: Negative Base Excess, Art NOT REPORTED [facility] Phone: O2 Device/Flow/% Adult Ventilator [employer] Phone: Oxygen saturation in Blood 98 % 94.0 - 98.0 % [facility] Phone: POC HCO3 29.3 mmol/L High 21.0 - 28.0 mmol/L [facility] [employer] Work Phone: POC pCO2 54.1 [facility] Work Phone: POC pCO2 Temp NOT REPORTED mm Hg [facility] Work Phone: POC pH 7.341 Low [facility] [employer] Work Phone: POC pH Temp NOT REPORTED [facility] Work Phone: POC PO2 125.7 High [facility] Work Phone: POC pO2 Temp NOT REPORTED mm Hg [facility] Work Phone: Positive Base Excess, Art 3 [facility] [employer] Work Phone: Sample Site Arterial Line [facility] Work Phone: TCO2 (calc), Art 31 mmol/L High 22.0 - 29.0 mmol/L [facility] [employer] Work Phone: Gucci Test NOT APPLICABLE [facility] Work Phone: aPTT Coag (Bld) [Time] NOT REPORTED [facility] [employer] Work Phone: FIO2 40.0 [facility] [employer] Work Phone: Mode PRVC [facility] [employer] Work Phone: Negative Base Excess, Art NOT REPORTED [facility] [employer] Work Phone: O2 Device/Flow/% Adult Ventilator [facility] [employer] Work Phone: Oxygen saturation in Blood 99 % High 94.0 - 98.0 % [facility] [employer] Work Phone: POC HCO3 27.9 mmol/L 21.0 - 28.0 mmol/L [facility] [employer] Work Phone: POC pCO2 52.5 [facility] Work Phone: POC pCO2 Temp NOT REPORTED mm Hg [facility] Work Phone: POC pH 7.333 Low [employer] Work Phone: POC pH Temp NOT REPORTED [employer] Work Phone: POC PO2 174.7 High [employer] Work Phone: POC pO2 Temp NOT REPORTED mm Hg [employer] Work Phone: Positive Base Excess, Art 2 [employer] Work Phone: Sample Site Arterial Line [employer] Work Phone: TCO2 (calc), Art 30 mmol/L High 22.0 - 29.0 mmol/L [employer] Work Phone: BASIC METABOLIC PANELon 12-08 Anion gap [Moles/Vol] 7 mmol/L Low 9 - 17 mmol/L [employer] Work Phone: Bun/Cre Ratio NOT REPORTED [facility] Work Phone: Calcium [Mass/Vol] 8.4 mg/dL Low 8.6 - 10. 4 mg/dL [employer] Phone: Chloride [Moles/Vol] 104 mmol/L 98 - 10 7 mmol/L [employer] Work Phone: CO2 [Moles/Vol] 24 mmol/L 20 - 31 mmol/L [employer] Work Phone: Creatinine [Mass/Vol] 1.06 mg/dL 0.70 - 1.20 mg/dL [employer] Phone: GFR >60 >60 mL/min [employer] Phone: GFR Non- >60 >60 mL/min [employer] Phone: GFR/1.73 sq M predicted among non-blacks MDRD (S/P/Bld) [Vol rate/Area] [employer] Phone: Comment on above: Average GFR for 50-5 9 years old: 93 mL/min/1.73sq m Chronic Kidney Disease: <60 mL/min/1.73sq m Kidney failure: <15 mL/min/1.73sq m eGFR calculated using average adult body mass. Additional eGFR calculator available at: http://www.[employer]/CookBrite_crcl_2012.htm GFR/1.73 sq M predicted among non-blacks MDRD (S/P/Bld) [Vol rate/Area] NOT REPORTED [employer] Phone: Glucose [Mass/Vol] 136 mg/dL High 70 - 99 mg/dL [employer] Phone: Interpretation and review of laboratory results Abnormal [employer] Phone: Potassium [Moles/Vol] 4.6 mmol/L 3.7 - 5.3 mmol/L [employer] Phone: Sodium [Moles/Vol] 135 mmol/L 135 - 144 mmol/L [employer] Phone: Urea nitrogen [Mass/Vol] 17 mg/dL 6 - 20 mg/dL [employer] Phone: Basic Metabolic Profon 12-22 (cont.) Normal [facility] Comment on above: Result Comment: Aver age GFR for 50-59 years old: 93 mL/min/1.73sq m Chronic Kidney Disease: <60 mL/min/1.73sq m Kidney failure: <15 mL/min/1.73sq m eGFR calculated using average adult body mass. Additional eGFR calculator available at: http://www.[employer]/multiple_crcl_2011.htm Performed By: #### C OVRB #### [employer] [address] [place] [address] [phone] Registered Dietetic Technician: Simeon Abraham MD Performed By: #### Helga RTPRebeka, VD25 #### [employer] [address] [place] [address] [phone] Registered Dietetic Technician: Simeon Abraham MD Anion gap [Moles/Vol] 7 mmol/L Low 9-17 [facility] Comment on above: Performed By: #### C OVRB #### [address] [address] Registered Dietetic Technician: Simeon Abraham MD Performed By: #### E RTPF, VD25 #### [address] [address] Registered Dietetic Technician: Simeon Abraham MD Calcium [Mass/Vol] 8.4 mg/dL Low 8.6-10.4 [facility] Comment on above: Performed By: #### C OVRB #### [address] [address] Registered Dietetic Technician: Simeon Abraham MD Performed By: #### E RTIDALIA VD25 #### [address] [address] Registered Dietetic Technician: Simeon Abraham MD Chloride [Moles/Vol] 104 mmol/L Normal 98-107 [facility] Comment on above: Performed By: #### C OVRB #### [address] [address] Registered Dietetic Technician: Simeon Abraham MD Performed By: #### E RTIDALIA, VD25 #### [address] [address] Registered Dietetic Technician: Simeon Abraham MD CO2 [Moles/Vol] 24 mmol/L Normal 20-31 [facility] Comment on above: Performed By: #### C OVRB #### [address] [address] Registered Dietetic Technician: Simeon Abraham MD Performed By: #### E RTREY25 #### [address] [address] Registered Dietetic Technician: Simeon Abraham MD Creatinine [Mass/Vol] 1.06 mg/dL Normal 0.70-1.20 [facility] Comment on above: Performed By: #### C OVRB #### [address] [address] Registered Dietetic Technician: Simeon Abraham MD Performed By: #### E RTPF, VD25 #### [address] [address] Registered Dietetic Technician: Simeon Abraham MD GFR, Amer >60 Normal >60 [facility] [place] Comment on above: Performed By: #### C OVRB #### [address] [address] Registered Dietetic Technician: Simeon Abraham MD Performed By: #### E RTPF, VD25 #### [address] [address] Registered Dietetic Technician: Simeon Abraham MD GFR,non Amer >60 Normal >60 [facility] Comment on above: Performed By: #### C OVRB #### [address] [address] Registered Dietetic Technician: Simeon Abraham MD Performed By: #### E RTPF, VD25 #### [address] [address] Registered Dietetic Technician: Simeon Abraham MD Glucose [Mass/Vol] 136 mg/dL High 70-99 [facility] Comment on above: Performed By: #### C OVRB #### [address] [address] Registered Dietetic Technician: Simeon Abraham MD Performed By: #### E RTPF, VD25 #### [facility] Tech [employer] [address] [place] [address] Registered Dietetic Technician: Simeon Abraham MD Potassium [Moles/Vol] 4.6 mmol/L Normal 3.7-5.3 [facility] Comment on above: Performed By: #### C OVRB #### [address] [address] Registered Dietetic Technician: Simeon Abraham MD Performed By: #### E RTPF, VD25 #### [address] [address] Registered Dietetic Technician: Simeon Abraham MD Sodium [Moles/Vol] 135 mmol/L Normal 135-144 [facility] Comment on above: Performed By: #### C OVRB #### [address] [address] Registered Dietetic Technician: Simeon Abraham MD Performed By: #### E RTIDALIA, VD25 #### [address] [address] Registered Dietetic Technician: Simeon Abraham MD Urea nitrogen [Mass/Vol] 17 mg/dL Normal 6-20 [facility] Comment on above: Performed By: #### C OVRB #### [address] [address] Registered Dietetic Technician: Simeon Abraham MD Performed By: #### E RTIDALIA, VD25 #### [address] [address] Registered Dietetic Technician: Simeon Abraham MD BUN/CRE Ratio NOT REPORTED Normal -20 [facility] Comment on above: Performed By: #### C OVRB #### [address] [address] Registered Dietetic Technician: Simeon Abraham MD Performed By: #### E RTPF, VD25 #### [address] [address] Registered Dietetic Technician: Simeon Abraham MD Staging: NOT REPORTED Normal [facility] Comment on above: Performed By: #### C OVRB #### [employer] [address] [place] [address] Registered Dietetic Technician: Simeon Abraham MD Performed By: #### E RTPF, VD25 #### [employer] [address] [place] [address] Registered Dietetic Technician: Simeon Abraham MD CBC WITH AUTO DIFFERENTIALon 12-22-2020 Basophils (Bld) [#/Vol] 10*3/uL [employer] Phone: Basophils/100 WBC (Bld) 0 % 0 - 2 % [employer] Phone: Differential Type NOT REPORTED [employer] Phone: Eosinophils (Bld) [#/Vol] 0.07 10*3/uL [employer] Phone: Eosinophils/100 WBC (Bld) 1 % 1 - 4 % [employer] Phone: Erythrocyte distribution width (RBC) [Ratio] 13.2 % 11.8 - 14.4 % [employer] Phone: Hematocrit (Bld) [Volume fraction] 32.3 % Low 40.7 - 50.3 % [employer] Phone: Hemoglobin (Bld) [Mass/Vol] 10.3 g/dL Low 13.0 - 17.0 g/dL [employer] Phone: Immature granulocytes (Bld) [#/Vol] 10*3/uL [employer] Phone: Immature granulocytes (Bld) [#/Vol] 0 % 0 [employer] Phone: Interpretation and review of laboratory results Abnormal [employer] Phone: Lymphocytes (Bld) [#/Vol] 1.69 10*3/uL [employer] Phone: Lymphocytes/100 WBC (Bld) 26 % 24 - 43 % [employer] Phone: MCH (RBC) [Entitic mass] 30.4 pg 25.2 - 33.5 pg [employer] Phone: MCHC (RBC) [Mass/Vol] 31.9 g/dL 28.4 - 34.8 g/dL [employer] Phone: MCV (RBC) [Entitic vol] 95.3 fL 82.6 - 102.9 fL [employer] Phone: Monocytes (Bld) [#/Vol] 0.63 10*3/uL [employer] Phone: Monocytes/100 WBC (Bld) 10 % 3 - 12 % [employer] Phone: Platelet mean volume (Bld) [Entitic vol] 9.3 fL 8.1 - 13.5 fL [employer] Phone: Platelets (Bld) [#/Vol] NOT REPORTED [employer] Phone: Platelets (Bld) [#/Vol] 155 10*3/uL [employer] Phone: RBC (Bld) [#/Vol] 3.39 10*6/uL Low 4.21 - 5.7 7 m/uL [employer] Phone: RBC morphology finding Nom (Bld) NOT REPORTED [employer] Phone: Segmented neutrophils/100 WBC (Bld) 63 % 36 - 65 % [employer] Phone: [employer]s [employer] Work Phone: WBC (Bld) [#/Vol] 0.0 10*3/uL 0.0 per 10 0 WBC [employer] Phone: WBC (Bld) [#/Vol] 6.6 10*3/uL [employer] Phone: WBC Morphology NOT REPORTED [employer] Work Phone: CBC with Diffon 12-22-2020 Abs. Basophil <0.03 Normal 0.00-0.20 [facility] Comment on above: Performed By: #### C OVRB #### [address] [address] Registered Dietetic Technician: Simeon Abraham MD Performed By: #### E RODRIGUES25 #### [address] [address] Registered Dietetic Technician: Simeon Abraham MD Abs.Imm.Granulocyte <0.03 Normal 0.00-0.30 [facility] Comment on above: Performed By: #### C OVRB #### [address] [address] Registered Dietetic Technician: Simeon Abraham MD Performed By: #### E SHRUTHI WHITE #### [address] [address] Registered Dietetic Technician: Simeon Abraham MD Abs.Neutrophil (Seg) 4.23 k/uL Normal 1.50-8.10 [facility] Comment on above: Performed By: #### C OVRB #### [address] [address] Registered Dietetic Technician: Simeon Abraham MD Performed By: #### E RODRIGUES25 #### [address] [address] Registered Dietetic Technician: Simeon Abraham MD Basophils/100 WBC (Bld) 0 % Normal 0-2 [facility] Comment on above: Performed By: #### C OVRB #### [address] [address] Registered Dietetic Technician: Simeon Abraham MD Performed By: #### E RODRIGUES25 #### [address] [place] [address] Registered Dietetic Technician: Simeon Abraham MD Eosinophils (Bld) [#/Vol] 0.07 10*3/uL Normal 0.00-0.44 [facility] Comment on above: Performed By: #### C OVRB #### [address] [address] Registered Dietetic Technician: Simeon Abraham MD Performed By: #### E RTPF VD25 #### [address] [address] Registered Dietetic Technician: Simeon Abraham MD Eosinophils/100 WBC (Bld) 1 % Normal 1-4 [facility] Comment on above: Performed By: #### C OVRB #### [address] [address] Registered Dietetic Technician: Simeon Abraham MD Performed By: #### E RTIDALIA VD25 #### [address] [address] Registered Dietetic Technician: Simeon Abraham MD Erythrocyte distribution width (RBC) [Ratio] 13.2 % Normal 11.8-14.4 [facility] Comment on above: Performed By: #### C OVRB #### [address] [address] Registered Dietetic Technician: Simeon Abraham MD Performed By: #### E RTPF VD25 #### [facility] [employer] [address] [place] [address] Registered Dietetic Technician: Simeon Abraham MD Hematocrit (Bld) [Volume fraction] 32.3 % Low 40.7-50.3 [facility] Comment on above: Performed By: #### C OVRB #### [facility] [employer] [address] [place] [address] Registered Dietetic Technician: Simeon Abraham MD Performed By: #### E RTPF VD25 #### [facility] [employer] [address] [place] [address] Registered Dietetic Technician: Simeon Abraham MD Hemoglobin (Bld) [Mass/Vol] 10.3 g/dL Low 13.0-17.0 [facility] Comment on above: Performed By: #### C OVRB #### [address] [address] Registered Dietetic Technician: Simeon Abraham MD Performed By: #### E RTPF, VD25 #### [address] [address] Registered Dietetic Technician: Simeon Abraham MD Immature granulocytes (Bld) [#/Vol] 0 % Normal 0 [facility] Comment on above: Performed By: #### C OVRB #### [address] [address] Registered Dietetic Technician: Simeon Abraham MD Immature granulocytes/100 WBC (Bld) 0 % Normal 0 [facility] Comment on above: Performed By: #### E RTIDALIA VD25 #### [address] [address] Registered Dietetic Technician: Simeon Abraham MD Lymphocytes (Bld) [#/Vol] 1.69 10*3/uL Normal 1.10-3.70 [facility] Comment on above: Performed By: #### C OVRB #### [facility] [employer] [address] [place] [address] Registered Dietetic Technician: Simeon Abraham MD Performed By: #### E RTPSANDOVAL25 #### [facility] [employer] [address] [place] [address] Registered Dietetic Technician: Simeon Abraham MD Lymphocytes/100 WBC (Bld) 26 % Normal 24-43 [facility] Comment on above: Performed By: #### C OVRB #### [facility] [employer] [address] [place] [address] Registered Dietetic Technician: Simeon Abraham MD Performed By: #### Helga WHITE VD25 #### [address] [address] Registered Dietetic Technician: Simeon Abraham MD MCH (RBC) [Entitic mass] 30.4 pg Normal 25.2-33.5 [facility] Comment on above: Performed By: #### C OVRB #### [address] [address] Registered Dietetic Technician: Simeon Abraham MD Performed By: #### E RODRIGUES25 #### [address] [address] Registered Dietetic Technician: Simeon Abraham MD MCHC (RBC) [Mass/Vol] 31.9 g/dL Normal 28.4-34.8 [facility] Comment on above: Performed By: #### C OVRB #### [address] [address] Registered Dietetic Technician: Simeon Abraham MD Performed By: #### Helga WHITE VD25 #### [address] [address] Registered Dietetic Technician: Simeon Abraham MD MCV (RBC) [Entitic vol] 95.3 fL Normal 82.6-102.9 [facility] Comment on above: Performed By: #### C OVRB #### [address] [address] Registered Dietetic Technician: Simeon Abraham MD Performed By: #### Helga WHITE VD25 #### [address] [address] Registered Dietetic Technician: Simeon Abraham MD Monocytes (Bld) [#/Vol] 0.63 10*3/uL Normal 0.10-1.20 [facility] Comment on above: Performed By: #### C OVRB #### [address] [address] Registered Dietetic Technician: Simeon Abraham MD Performed By: #### E RODRIGUES25 #### [address] [address] Registered Dietetic Technician: Simeon Abraham MD Monocytes/100 WBC (Bld) 10 % Normal 3-12 [facility] Comment on above: Performed By: #### C OVRB #### [address] [address] Registered Dietetic Technician: Simeon Abraham MD Performed By: #### E RODRIGUES25 #### [address] [address] Registered Dietetic Technician: Simeon Abraham MD Neutrophil (Seg) 63 % Normal 36-65 [facility] [place] Comment on above: Performed By: #### C OVRB #### [address] [address] Registered Dietetic Technician: Simeon Abraham MD Performed By: #### E RODRIGUES25 #### [address] [address] Registered Dietetic Technician: Simeon Abraham MD NRBC Automated 0.0 per 100 WBC Normal 0.0 [facility] Comment on above: Performed By: #### C OVRB #### [address] [address] Registered Dietetic Technician: Simeon Abraham MD Performed By: #### E RODRIGUES25 #### [address] [address] Registered Dietetic Technician: Simeon Abraham MD Platelet mean volume (Bld) [Entitic vol] 9.3 fL Normal 8.1-13.5 [facility] Comment on above: Performed By: #### C OVRB #### [address] [address] Registered Dietetic Technician: Simeon Abraham MD Performed By: #### E RTPF, VD25 #### [address] [address] Registered Dietetic Technician: Simeon Abraham MD Platelets (Bld) [#/Vol] 155 10*3/uL Normal 138-453 [facility] Comment on above: Performed By: #### C OVRB #### [address] [address] Registered Dietetic Technician: Simeon Abraham MD Performed By: #### E RTPF, VD25 #### [address] [address] Registered Dietetic Technician: Simeon Abraham MD RBC (Bld) [#/Vol] 3.39 10*6/uL Low 4.21-5.77 [facility] Comment on above: Performed By: #### C OVRB #### [address] [address] Registered Dietetic Technician: Simeon Abraham MD Performed By: #### E RTPF, VD25 #### [address] [address] Registered Dietetic Technician: Simeon Abraham MD WBC (Bld) [#/Vol] 6.6 10*3/uL Normal 3.5-11.3 [facility] Comment on above: Performed By: #### C OVRB #### [address] [address] Registered Dietetic Technician: Simeon Abraham MD Performed By: #### E RTPF, VD25 #### [address] [address] Registered Dietetic Technician: Simeon Abraham MD Auto Diff Performed NOT REPORTED Normal [facility] Comment on above: Performed By: #### C OVRB #### [email or web address] [address] [place] [address] Registered Dietetic Technician: Simeon Abraham MD Performed By: #### E RTPF, VD25 #### [email or web address] [address] [place] [address] Registered Dietetic Technician: Simeon Abraham MD Platelet Estimate NOT REPORTED Normal [facility] Comment on above: Performed By: #### E RTPF, VD25 #### [email or web address] [address] [place] [address] Registered Dietetic Technician: Simeon Abraham MD Platelets (Bld) [#/Vol] NOT REPORTED Normal [facility] Comment on above: Performed By: #### C OVRB #### [facility] [employer] [address] [place] [address] Registered Dietetic Technician: Simeon Abraham MD RBC morphology finding Nom (Bld) NOT REPORTED Normal [facility] Comment on above: Performed By: #### C OVRB #### [facility] [employer] [address] [place] [address] Registered Dietetic Technician: Simeon Abraham MD Performed By: #### E RTIDALIA VD25 #### [facility] [employer] [address] [place] [address] Registered Dietetic Technician: Simeon Abraham MD WBC Morphology NOT REPORTED Normal [facility] [place] Comment on above: Performed By: #### C OVRB #### [email or web address] [address] [place] [address] Registered Dietetic Technician: Simeon Abraham MD Performed By: #### E RTIDALIA VD25 #### [email or web address] [address] [place] [address] Registered Dietetic Technician: Simeon Abraham MD Lactic Acid, POCon 1 POC Lactic Acid 0.45 mmol/L Low 0.56 - 1.39 mmol/L [employer] Phone: POC Lactic Acid 0.36 mmol/L Low 0.56 - 1.39 mmol/L [employer] Phone: MAGNESIUMon 12-22-2020 Magnesium [Mass/Vol] 1.7 mg/dL 1.6 - 2 .6 mg/dL [employer] Phone: Magnesiumon 12-22-2020 Magnesium [Mass/Vol] 1.7 mg/dL Normal 1.6-2.6 [facility] Comment on above: Performed By: #### C OVRB #### [email or web address] [address] [place] [address] Registered Dietetic Technician: Simeon Abraham MD Performed By: #### E RODRIGUES25 #### [facility] [employer] [address] [place] [address] Registered Dietetic Technician: Simeon Abraham MD Otheron 12-22-2020 Interpretation and review of laboratory results Abnormal [employer] Phone: Interpretation and review of laboratory results Abnormal [employer] Phone: PHOSPHORUSon 12-22-2020 Phosphate [Mass/Vol] 3.1 mg/dL 2.5 - 4 .5 mg/dL [facility] Phone: Phosphorus, Inorg.on 021 Phosphorus, Inorg. 3.1 mg/dL Normal 2.5-4.5 [facility] Comment on above: Performed By: #### C OVRB #### [email or web address] [address] [place] [address] Registered Dietetic Technician: Simeon Abraham MD Performed By: #### E RODRIGUES25 #### [email or web address] [address] [place] [address] Registered Dietetic Technician: Simeon Abraham MD XR ANKLE RIGHT (MIN 3 VIEWS) on 12-22-2020 XR ANKLE RIGHT (MIN 3 VIEWS) EXAMINATION: THREE XRAY VIEWS OF THE RIGHT ANKLE 12/21/2020 3:39 am COMPARISON: 12/20/2020 HISTORY: ORDERING SYSTEM PROVIDED HISTORY: Post-Splint TECHNOLOGIST PROVIDED HISTORY: Post-Splint Reason for Exam: post splint Acuity: Acute Type of Exam: Ongoing FINDINGS: There has been splinting of the right ankle with fractures redemonstrated along the distal tibia. There is still widening of the ankle mortise suggesting underlying instability. The talar dome is intact. The distal fibula is intact. Overlying soft tissue swelling is noted. IMPRESSION: 1. Comminuted intra-articular fracture involving the distal tibia, status post splinting. Widening of the ankle mortise suggests instability. Interpreted by: Vikas Hernandez MD Signed by: Vikas Hernandez MD 12/21/20 Final result Normal [facility] XR CHEST PORTABLEon 12-23-19 XR CHEST PORTABLE EXAMINATION: ONE X-RAY VIEW OF THE CHEST 12/22/2020 8:25 am COMPARISON: 12/21/2020 HISTORY ORDERING SYSTEM PROVIDED HISTORY: Intubated, ? pneumonia TECHNOLOGIST PROVIDED HISTORY: intubated, ? pneumonia Reason for Exam: Supine port chest FINDINGS: Endotracheal tube is located 8.7 cm above the newton. Nasogastric tube traverses the diaphragm. Left chest tube is stable without evidence of significant pneumothorax. Left rib fracture is noted. Bilateral lower lobe mild opacification is identified likely representing atelectasis and small pleural effusions. Underlying pneumonia is not excluded. IMPRESSION: Stable small bilateral pleural effusions and bibasilar atelectasis. Stable left chest tube without evidence of significant pneumothorax. Acute left rib fracture. Endotracheal tube located 8.7 cm above the newton. Interpreted by: Prosper Krishna MD Signed by: Prosper Krishna MD 12/22/20 Final result Normal [facility], [facility] Incoming Radiant Results From [employer] - 12/22/2020 10:20 AM EDT EXAMINATION: ONE X-RAY VIEW OF THE CHEST 12/22/2020 8:25 am COMPARISON: 12/21/2020 HISTORY ORDERING SYSTEM PROVIDED HISTORY: Intubated, ? pneumonia TECHNOLOGIST PROVIDED HISTORY: intubated, ? pneumonia Reason for Exam: Supine port chest FINDINGS: Endotracheal tube is located 8.7 cm above the newton. Nasogastric tube traverses the diaphragm. Left chest tube is stable without evidence of significant pneumothorax. Left rib fracture is noted. Bilateral lower lobe mild opacification is identified likely representing atelectasis and small pleural effusions. Underlying pneumonia is not excluded. IMPRESSION: Stable small bilateral pleural effusions and bibasilar atelectasis. Stable left chest tube without evidence of significant pneumothorax. Acute left rib fracture. Endotracheal tube located 8.7 cm above the newton. [employer] Phone: EXAMINATION: ONE X-R AY VIEW OF THE CHEST 12/22/2020 8:25 am COMPARISON: 12/21/2020 HISTORY ORDERING SYSTEM PROVIDED HISTORY: Intubated, ? pneumonia TECHNOLOGIST PROVIDED HISTORY: intubated, ? pneumonia Reason for Exam: Supine port chest FINDINGS: Endotracheal tube is located 8.7 cm above the newton. Nasogastric tube traverses the diaphragm. Left chest tube is stable without evidence of significant pneumothorax. Left rib fracture is noted. Bilateral lower lobe mild opacification is identified likely representing atelectasis and small pleural effusions. Underlying pneumonia is not excluded. [employer] Phone: Stable small bilater al pleural effusions and bibasilar atelectasis. Stable left chest tube without evidence of significant pneumothorax. Acute left rib fracture. Endotracheal tube located 8.7 cm above the newton. [employer] Phone: XR CHEST PORTABLE EXAMINATION: ONE XRAY VIEW OF THE CHEST 12/21/2020 3:39 am COMPARISON: 12/20/2020 HISTORY: ORDERING SYSTEM PROVIDED HISTORY: cxr, L chest tube TECHNOLOGIST PROVIDED HISTORY: cxr, L chest tube Reason for Exam: portable upright/ left chest tube Acuity: Acute Type of Exam: Ongoing FINDINGS: The cardiac silhouette and mediastinal contours are stable. Left chest tube is unchanged. Bibasilar atelectasis is noted. There is a left pneumothorax. No right pneumothorax. Mild pulmonary vascular congestion. Multiple left-sided rib fractures are better seen on the previous CT. IMPRESSION: 1. Stable positioning of a left-sided chest tube. There is a left apical pneumothorax. 2. Low lung volumes with bibasilar atelectasis. 3. Pulmonary vascular congestion. 4. Multiple left-sided rib fractures. Interpreted by: Vikas Hernandez MD Signed by: Vikas Hernandez MD 12/21/20 Final result Normal [facility] XR WRIST RIGHT (MIN 3 VIEWS) on 12-22-2020 XR WRIST RIGHT (MIN 3 VIEWS) EXAMINATION: 3 XRAY VIEWS OF THE RIGHT WRIST 12/21/2020 3:39 am COMPARISON: 12/20/2020 HISTORY: ORDERING SYSTEM PROVIDED HISTORY: Post-Splint TECHNOLOGIST PROVIDED HISTORY: Post-Splint Reason for Exam: post splint Acuity: Acute Type of Exam: Ongoing FINDINGS: There is a comminuted intra-articular fracture involving the distal radius status post splinting. Overall alignment is unchanged. No other fractures are identified. Diffuse soft tissue swelling is noted along the right wrist. IMPRESSION: 1. Splinting of the comminuted intra-articular distal radial fracture without complication. Interpreted by: Vikas Hernandez MD Signed by: Vikas Hernandez MD 12/21/20 Final result Normal [facility] Arterial Blood Gas, POCon Gucci Test Positive [facility] [place] Work Phone: aPTT Coag (Bld) [Time] NOT REPORTED [facility] [place] Work Phone: FIO2 40.0 [facility] [place] Work Phone: Mode NOT REPORTED [facility] [place] Work Phone: Negative Base Excess, Art NOT REPORTED [facility] Phone: O2 Device/Flow/% Adult Ventilator Me [facility] [place] Work Phone: Oxygen saturation in Blood 96 % 94.0 - 98.0 % [facility] [place] Work Phone: POC HCO3 26.2 mmol/L 21.0 - 28.0 mmol/L [facility] [place] Work Phone: POC pCO2 49.1 High [facility] [place] Work Phone: POC pCO2 Temp NOT REPORTED mm Hg [facility] Work Phone: POC pH 7.336 Low [employer] Work Phone: POC pH Temp NOT REPORTED [facility] Work Phone: POC PO2 91.1 [facility] [place] Work Phone: POC pO2 Temp NOT REPORTED mm Hg [employer] Work Phone: Positive Base Excess, Art 0 [facility] [place] Work Phone: Sample Site Left Radial Artery [facility] [place] Work Phone: TCO2 (calc), Art 28 mmol/L 22.0 - 29.0 mmol/L [facility] [employer] Work Phone: Basic Metab w/rfx MGon 12-21 (cont.) Normal [facility] Comment on above: Result Comment: Aver age GFR for 50-59 years old: 93 mL/min/1.73sq m Chronic Kidney Disease: <60 mL/min/1.73sq m Kidney failure: <15 mL/min/1.73sq m eGFR calculated using average adult body mass. Additional eGFR calculator available at: http://www.Habeas/multiple_crcl_2011.htm Performed By: #### C DP, BMP, MG, GREY #### [employer] [address] [place] [address] Registered Dietetic Technician: Simeon Abraham MD Performed By: #### C DP, BMPX ####[employer] [place] [id number] Lab Director: Simeon Abraham MD Anion gap [Moles/Vol] 7 mmol/L Low 9-17 [facility] Comment on above: Performed By: #### C DP, BMP, MG, GREY #### [employer] [address] [place] [address] Registered Dietetic Technician: Simeon Abraham MD Performed By: #### C DP, BMPX ####[employer] [place] [address] [id number] Lab Director: Simeon Abraham MD Calcium [Mass/Vol] 8.8 mg/dL Normal 8.6-10.4 [facility] Comment on above: Performed By: #### C DP, BMP, MG, GREY #### [address] [address] Registered Dietetic Technician: Simeon Abraham MD Performed By: #### C DP, BMPX ####[address] [address] Lab Director: Simeon Abraham MD Chloride [Moles/Vol] 107 mmol/L Normal 98-107 [facility] Comment on above: Performed By: #### C DP, BMP, MG, GREY #### [address] [address] Registered Dietetic Technician: Simeon Abraham MD Performed By: #### C DP, BMPX ####[address] [address] Lab Director: Simeon Abraham MD CO2 [Moles/Vol] 22 mmol/L Normal 20-31 [facility] Comment on above: Performed By: #### C DP, BMP, MG, GREY #### [address] [address] Registered Dietetic Technician: Simeon Abraham MD Performed By: #### C DP, BMPX ####[address] [address] Lab Director: Simeon Abraham MD Creatinine [Mass/Vol] 1.16 mg/dL Normal 0.70-1.20 [facility] Comment on above: Performed By: #### C DP, BMP, MG, GREY #### [address] [address] Registered Dietetic Technician: Simeon Abraham MD Performed By: #### C DP, BMPX ####[address] [place] [address] Lab Director: Simeon Abraham MD GFR, Amer >60 Normal >60 [facility] [place] Comment on above: Performed By: #### C DP, BMP, MG, GREY #### [facility] [address] [place] [address] Registered Dietetic Technician: Simeon Abraham MD Performed By: #### C DP, BMPX ####[address] [address] Lab Director: Simeon Abraham MD GFR,non Amer >60 Normal >60 [facility] Comment on above: Performed By: #### C DP, BMP, MG, GREY #### [address] [address] Registered Dietetic Technician: Simeon Abraham MD Performed By: #### C DP, BMPX ####[address] [address] Lab Director: Simeon Abraham MD Glucose [Mass/Vol] 103 mg/dL High 70-99 [facility] Comment on above: Performed By: #### C DP, BMP, MG, GREY #### [address] [address] Registered Dietetic Technician: Simeon Abraham MD Performed By: #### C DP, BMPX ####[address] [address] Lab Director: Simeon Abraham MD Potassium [Moles/Vol] 5.0 mmol/L Normal 3.7-5.3 [facility] Comment on above: Performed By: #### C DP, BMP, MG, GREY #### [place] [id number] [place] [address] Registered Dietetic Technician: Simeon Abraham MD Performed By: #### C DP, BMPX ####[address] [place] [address] Lab Director: Simeon Abraham MD Sodium [Moles/Vol] 136 mmol/L Normal 135-144 [facility] Comment on above: Performed By: #### C DP, BMP, MG, GREY #### [facility] [address] [place] [address] Registered Dietetic Technician: Simeon Abraham MD Performed By: #### C DP, BMPX ####[address] [phone] Director: Simeon Abraham MD Urea nitrogen [Mass/Vol] 15 mg/dL Normal -20 [facility] Comment on above: Performed By: #### C DP, BMP, MG, GREY #### [address] [address] Registered Dietetic Technician: Simeon Abraham MD Performed By: #### C DP, BMPX ####[address] [address] Lab Director: Simeon Abraham MD BUN/CRE Ratio NOT REPORTED Normal -20 [facility] Comment on above: Performed By: #### C DP, BMP, MG, GREY #### [address] [address] Registered Dietetic Technician: Simeon Abraham MD Performed By: #### C DP, BMPX ####[address] [phone] Director: Simeon Abraham MD Staging: NOT REPORTED Normal [facility] Comment on above: Performed By: #### C DP, BMP, MG, GREY #### [facility] [facility] [address] [place] [address] Registered Dietetic Technician: Simeon Abraham MD Performed By: #### C DP, BMPX ####[facility] [address] [place] [address]1974 Lab Director: Simeon Abraham MD Basic Metabolic Panel w/ Ref leola to [facility] 12-21-2020 Anion gap [Moles/Vol] 7 mmol/L Low 9 - 17 mmol/L [employer] Phone: Bun/Cre Ratio NOT REPORTED [facility] Work Phone: Calcium [Mass/Vol] 8.8 mg/dL 8.6 - 10. 4 mg/dL [employer] Work Phone: Chloride [Moles/Vol] 107 mmol/L 98 - 10 7 mmol/L [employer] Phone: CO2 [Moles/Vol] 22 mmol/L 20 - 31 mmol/L [employer] Phone: Creatinine [Mass/Vol] 1.16 mg/dL 0.70 - 1.20 mg/dL [employer] Phone: GFR >60 >60 mL/min [employer] Phone: GFR Non- >60 >60 mL/min [employer] Phone: GFR/1.73 sq M predicted among non-blacks MDRD (S/P/Bld) [Vol rate/Area] [employer] Phone: Comment on above: Average GFR for 50-5 9 years old: 93 mL/min/1.73sq m Chronic Kidney Disease: <60 mL/min/1.73sq m Kidney failure: <15 mL/min/1.73sq m eGFR calculated using average adult body mass. Additional eGFR calculator available at: http://www.Sepior.com/multiple_crcl_2012.htm GFR/1.73 sq M predicted among non-blacks MDRD (S/P/Bld) [Vol rate/Area] NOT REPORTED [employer] Phone: Glucose [Mass/Vol] 103 mg/dL High 70 - 99 mg/dL [employer] Phone: Interpretation and review of laboratory results Abnormal [employer] Phone: Potassium [Moles/Vol] 5.0 mmol/L 3.7 - 5.3 mmol/L [employer] Phone: Sodium [Moles/Vol] 136 mmol/L 135 - 144 mmol/L [employer] Phone: Urea nitrogen [Mass/Vol] 15 mg/dL 6 - 20 mg/dL [employer] Phone: CBC auto differentialon 12-08 Basophils (Bld) [#/Vol] 10*3/uL [employer] Phone: Basophils/100 WBC (Bld) 0 % 0 - 2 % [employer] Phone: Differential Type NOT REPORTED [employer] Phone: Eosinophils (Bld) [#/Vol] 10*3/uL [employer] Phone: Eosinophils/100 WBC (Bld) 0 % Low 1 - 4 % [employer] Phone: Erythrocyte distribution width (RBC) [Ratio] 13.1 % 11.8 - 14.4 % [employer] Phone: Hematocrit (Bld) [Volume fraction] 37.7 % Low 40.7 - 50.3 % [employer] Phone: Hemoglobin (Bld) [Mass/Vol] 11.5 g/dL Low 13.0 - 17.0 g/dL [employer] Phone: Immature granulocytes (Bld) [#/Vol] 0 % 0 [employer] Phone: Immature granulocytes (Bld) [#/Vol] 0.03 10*3/uL [employer] Phone: Interpretation and review of laboratory results Abnormal [employer] Phone: Lymphocytes (Bld) [#/Vol] 2.12 10*3/uL [employer] Work Phone: Lymphocytes/100 WBC (Bld) 27 % 24 - 43 % [employer] Work Phone: MCH (RBC) [Entitic mass] 30.4 pg 25.2 - 33.5 pg [employer] Phone: MCHC (RBC) [Mass/Vol] 30.5 g/dL 28.4 - 34.8 g/dL [employer] Work Phone: MCV (RBC) [Entitic vol] 99.7 fL 82.6 - 102.9 fL [employer] Work Phone: Monocytes (Bld) [#/Vol] 0.90 10*3/uL [employer] Phone: Monocytes/100 WBC (Bld) 12 % 3 - 12 % [employer] Work Phone: Platelet mean volume (Bld) [Entitic vol] 9.2 fL 8.1 - 13.5 fL [employer] Work Phone: Platelets (Bld) [#/Vol] 184 10*3/uL [employer] Work Phone: Platelets (Bld) [#/Vol] NOT REPORTED [employer] Phone: RBC (Bld) [#/Vol] 3.78 10*6/uL Low 4.21 - 5.7 7 m/uL [employer] Work Phone: RBC morphology finding Nom (Bld) NOT REPORTED [employer] Phone: Segmented neutrophils/100 WBC (Bld) 60 % 36 - 65 % [employer] Work Phone: [employer]s [employer] Work Phone: WBC (Bld) [#/Vol] 7.8 10*3/uL [employer] Work Phone: WBC (Bld) [#/Vol] 0.0 10*3/uL 0.0 per 10 0 WBC [employer] Work Phone: WBC Morphology NOT REPORTED [facility] Work Phone: CBC with Diffon 12-21-2020 Abs. Basophil <0.03 Normal 0.00-0.20 [facility] Comment on above: Performed By: #### C DP, BMP, MG, GREY #### [email or web address] [address] [place] [address] Registered Dietetic Technician: Simeon Abraham MD Performed By: #### C DP, BMPX ####[facility] [address] [place], [place] [address])[phone] Director: Simeon Abraham MD Abs. Eosinophil <0.03 Normal 0.00-0.44 [facility] Comment on above: Performed By: #### C DP, BMPX ####[facility] [address] [place], [place] [address])[phone] Director: Siemon Abraham MD Abs.Imm.Granulocyte 0.03 k/uL Normal 0.00-0.30 [facility] Comment on above: Performed By: #### C DP, BMP, MG, GREY #### [facility] [employer] [address] [place] [address] Registered Dietetic Technician: Simeon Abraham MD Performed By: #### C DP, BMPX ####[facility] [address] [place], [place] [address])[phone] Director: Simeon Abraham MD Abs.Neutrophil (Seg) 4.69 k/uL Normal 1.50-8.10 [facility] Comment on above: Performed By: #### C DP, BMP, MG, GREY #### [facility] [employer] [address] [place] [address] Registered Dietetic Technician: Simeon Abraham MD Performed By: #### C DP, BMPX ####[address] [address] Lab Director: Simeon Abraham MD Basophils/100 WBC (Bld) 0 % Normal 0-2 [facility] Comment on above: Performed By: #### C DP, BMP, MG, GREY #### [address] [address] Registered Dietetic Technician: Simeon Abraham MD Performed By: #### C DP, BMPX ####[address] [address] Lab Director: Simeon Abraham MD Eosinophils (Bld) [#/Vol] 10*3/uL Normal 0.00-0.44 [facility] Comment on above: Performed By: #### C DP, BMP, MG, GREY #### [address] [address] Registered Dietetic Technician: Simeon Abraham MD Eosinophils/100 WBC (Bld) 0 % Low 1-4 [facility] Comment on above: Performed By: #### C DP, BMP, MG, GREY #### [address] [address] Registered Dietetic Technician: Simeon Abraham MD Performed By: #### C DP, BMPX ####[address] [address] Lab Director: Simeon Abraham MD Immature granulocytes (Bld) [#/Vol] 0 % Normal 0 [facility] Comment on above: Performed By: #### C DP, BMP, MG, GREY #### [address] [address] Registered Dietetic Technician: Simeon Abraham MD Immature granulocytes/100 WBC (Bld) 0 % Normal 0 [facility] Comment on above: Performed By: #### C DP, BMPX ####[address] [address] Lab Director: Simeon Abraham MD Lymphocytes (Bld) [#/Vol] 2.12 10*3/uL Normal 1.10-3.70 [facility] Comment on above: Performed By: #### C DP, BMP, MG, GREY #### [facility] [employer] [address] [place] [address] Registered Dietetic Technician: Simeon Abraham MD Performed By: #### C DP, BMPX ####[address] [phone] Director: Simeon Abraham MD Lymphocytes/100 WBC (Bld) 27 % Normal 24-43 [facility] Comment on above: Performed By: #### C DP, BMP, MG, GREY #### [address] [address] Registered Dietetic Technician: Simeon Abraham MD Performed By: #### C DP, BMPX ####[address] [phone] Director: Simeon Abraham MD Monocytes (Bld) [#/Vol] 0.90 10*3/uL Normal 0.10-1.20 [facility] Comment on above: Performed By: #### C DP, BMP, MG, GREY #### [facility] [employer] [address] [place] [address] Registered Dietetic Technician: Simeon Abrhaam MD Performed By: #### C DP, BMPX ####[facility] [address] [place] [address] [phone] Director: Simeon Abraham MD Monocytes/100 WBC (Bld) 12 % Normal 3-12 [facility] Comment on above: Performed By: #### C DP, BMP, MG, GREY #### [facility] [employer] [address] [place] [address] Registered Dietetic Technician: Simeon Abraham MD Performed By: #### C DP, BMPX ####[facility] [address] [place] [address] Lab Director: Simeon Abraham MD Neutrophil (Seg) 60 % Normal 36-65 [facility] Comment on above: Performed By: #### C DP, BMP, MG, GREY #### [facility] [address] [place] [address] Registered Dietetic Technician: Simeon Abraham MD Performed By: #### C DP, BMPX ####[facility] [address] [place] [address] Lab Director: Simeon Abraham MD Erythrocyte distribution width (RBC) [Ratio] 13.1 % Normal 11.8-14.4 [facility] Comment on above: Performed By: #### C DP, BMP, MG, GREY #### [facility] [employer] [address] [place] [address] Registered Dietetic Technician: Simeon Abraham MD Performed By: #### C DP, BMPX ####[address] [address] Lab Director: Simeon Abraham MD Hematocrit (Bld) [Volume fraction] 37.7 % Low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 [Entitic vol] 95.0 fL 82.6 - 102.9 fL [place] Monocytes (Bld) [#/Vol] 0.69 10*3/uL [place] Monocytes/100 WBC (Bld) 11 % 3 - 12 % [place] Platelet mean volume (Bld) [Entitic vol] 9.1 fL 8.1 - 13.5 fL [place] Platelets (Bld) [#/Vol] NOT REPORTED [place] Platelets (Bld) [#/Vol] 233 10*3/uL [place] RBC (Bld) [#/Vol] 4.16 10*6/uL Low 4.21 - 5.7 7 m/uL [place] RBC morphology finding Nom (Bld) NOT REPORTED [place] Segmented neutrophils/100 WBC (Bld) 39 % 36 - 65 % [place] Segs Absolute 2.56 [place] WBC (Bld) [#/Vol] 6.6 10*3/uL [place] WBC (Bld) [#/Vol] 0.0 10*3/uL 0.0 per 10 0 WBC [place] WBC Morphology NOT REPORTED [place] Metabolic Panelon 06-03-2020 GFR/1.73 sq M predicted among non-blacks MDRD (S/P/Bld) [Vol rate/Area] [place] Comment on above: Average GFR for 50-5 9 years old: 93 mL/min/1.73sq m Chronic Kidney Disease: <60 mL/min/1.73sq m Kidney failure: <15 mL/min/1.73sq m eGFR calculated using average adult body mass. Additional eGFR calculator available at: http://www.[employer]/multiple_crcl_2012.htm Stage 1: Some kidney damage normal GFR Stage 2: Mild kidney damage GFR 60-89 Stage 3: Moderate kidney damage GFR 30-59 Stage 4: Severe kidney damage GFR 15-29 Stage 5: Severe kidney damage GFR <15 ESRD - chronic treatment by dialysis or transplant Renal Function Panelon 06-03 Albumin [Mass/Vol] 3.9 g/dL 3.5 - 5.2 g/dL [place] Anion gap [Moles/Vol] 7 mmol/L Low 9 - 17 mmol/L [place] Bun/Cre Ratio 10 [place] Calcium [Mass/Vol] 9.7 mg/dL 8.6 - 10. 4 mg/dL [place] Chloride [Moles/Vol] 104 mmol/L 98 - 10 7 mmol/L [place] CO2 [Moles/Vol] 25 mmol/L 20 - 31 mmol/L [place] Creatinine [Mass/Vol] 1.37 mg/dL High 0.7 - 1.2 mg/dL [place] GFR >60 >60 mL/min [place] GFR Non- 54 mL/min Low >60 [place] Glucose [Mass/Vol] 93 mg/dL 70 - 99 mg/dL [place] Interpretation and review of laboratory results Abnormal [place] Phosphate [Mass/Vol] 3.1 mg/dL 2.5 - 4 .5 mg/dL [place] Potassium [Moles/Vol] 3.9 mmol/L 3.7 - 5.3 mmol/L [place] Sodium [Moles/Vol] 136 mmol/L 135 - 144 mmol/L [place] Urea nitrogen [Mass/Vol] 14 mg/dL 6 - 20 mg/dL [place] Vitamin D 25 Hydroxyon 04-01 Vit D, 25-Hydroxy 40.5 ng/mL 30 - 100 ng/mL [place] Comment on above: Reference Range: Vitamin D status Range Deficiency <20 ng/mL Mild Deficiency 20-30 ng/mL Sufficiency 30-100 ng/mL Toxicity >100 ng/mL CBC Auto Differentialon 03-11 Basophils (Bld) [#/Vol] 0.03 10*3/uL [place] Basophils/100 WBC (Bld) 1 % 0 - 2 % [place] Differential Type NOT REPORTED [place] Eosinophils (Bld) [#/Vol] 0.21 10*3/uL [place] Eosinophils/100 WBC (Bld) 3 % 1 - 4 % [place] Erythrocyte distribution width (RBC) [Ratio] 13.0 % 11.8 - 14.4 % [place] Hematocrit (Bld) [Volume fraction] 41.0 % 40.7 - 50.3 % [place] Hemoglobin (Bld) [Mass/Vol] 13.1 g/dL 13 - 17 g/dL [place] Immature granulocytes (Bld) [#/Vol] 10*3/uL [place] Immature granulocytes (Bld) [#/Vol] 0 % 0 [place] Interpretation and review of laboratory results Abnormal [place] Lymphocytes (Bld) [#/Vol] 2.93 10*3/uL [place] Lymphocytes/100 WBC (Bld) 46 % High 24 - 43 % [place] MCH (RBC) [Entitic mass] 30.9 pg 25.2 - 33.5 pg [place] MCHC (RBC) [Mass/Vol] 32.0 g/dL 28.4 - 34.8 g/dL [place] MCV (RBC) [Entitic vol] 96.7 fL 82.6 - 102.9 fL [place] Monocytes (Bld) [#/Vol] 0.65 10*3/uL [place] Monocytes/100 WBC (Bld) 10 % 3 - 12 % [place] Platelet mean volume (Bld) [Entitic vol] 9.1 fL 8.1 - 13.5 fL [place] Platelets (Bld) [#/Vol] NOT REPORTED [place] Platelets (Bld) [#/Vol] 240 10*3/uL [place] RBC (Bld) [#/Vol] 4.24 10*6/uL 4.21 - 5.7 7 m/uL [place] RBC morphology finding Nom (Bld) NOT REPORTED [place] Segmented neutrophils/100 WBC (Bld) 40 % 36 - 65 % [place] Segs Absolute 2.51 [place] WBC (Bld) [#/Vol] 0.0 10*3/uL 0.0 per 10 0 WBC [place] WBC (Bld) [#/Vol] 6.3 10*3/uL [place] WBC Morphology NOT REPORTED [place] Comp Metabolic w Bili Profil braeden 03-31-2020 Albumin [Mass/Vol] 3.8 g/dL 3.5 - 5.2 g/dL [place] Albumin/Globulin [Mass ratio] 1.4 {ratio} [place] ALP [Catalytic activity/Vol] 86 U/L 40 - 129 U/L [place] ALT [Catalytic activity/Vol] 17 U/L 5 - 41 U/L [place] Anion gap [Moles/Vol] 8 mmol/L Low 9 - 17 mmol/L [place] AST [Catalytic activity/Vol] 22 U/L <40 [place] Bilirubin Ql (U) 0.40 mg/dL 0.3 - 1.2 mg/dL [place] Bilirubin, Indirect CANNOT BE CALCULATED 0 - 1 mg/dL [place] Bilirubin.direct [Mass/Vol] mg/dL <0.31 mg/dL [place] Calcium [Mass/Vol] 9.3 mg/dL 8.6 - 10. 4 mg/dL [place] Chloride [Moles/Vol] 104 mmol/L 98 - 10 7 mmol/L [place] CO2 [Moles/Vol] 25 mmol/L 20 - 31 mmol/L [place] Creatinine [Mass/Vol] 1.61 mg/dL High 0.7 - 1.2 mg/dL [place] GFR 54 mL/min Low >60 [place] GFR Non- 45 mL/min Low >60 [place] Glucose [Mass/Vol] 99 mg/dL 70 - 99 mg/dL [place] Interpretation and review of laboratory results Abnormal [place] Potassium [Moles/Vol] 4.1 mmol/L 3.7 - 5.3 mmol/L [place] Protein [Mass/Vol] 6.6 g/dL 6.4 - 8.3 g/dL [place] Sodium [Moles/Vol] 137 mmol/L 135 - 144 mmol/L [place] Urea nitrogen [Mass/Vol] 16 mg/dL 6 - 20 mg/dL [place] Lipid Panelon 03-31-2020 Cholesterol [Mass/Vol] 127 mg/dL <200 [place] Comment on above: Cholesterol Guidelines: <200 Desirable 200-240 Borderline >240 Undesirable Cholesterol in HDL [Mass/Vol] 55 mg/dL >40 [place] Comment on above: HDL Guidelines: <40 Undesirable 40-59 Borderline >59 Desirable Cholesterol in LDL [Mass/Vol] 53 mg/dL 0 - 130 mg/dL [place] Comment on above: LDL Guidelines: <100 Desirable 100-129 Near to/above Desirable 130-159 Borderline >159 Undesirable Direct (measured) LDL and calculated LDL are not interchangeable tests. Cholesterol in VLDL [Mass/Vol] NOT REPORTED 1 - 30 mg/dL [place] Cholesterol.total/Cho lesterol in HDL [Mass ratio] 2.3 {ratio} <5 [place] Triglyceride [Mass/Vol] 97 mg/dL <150 [place] Comment on above: Triglyceride Guidelines: <150 Desirable 150-199 Borderline 200-499 High >499 Very high Based on AHA Guidelines for fasting triglyceride, July 2012. Metabolic Panelon 03-31-2020 GFR/1.73 sq M predicted among non-blacks MDRD (S/P/Bld) [Vol rate/Area] [place] Comment on above: Stage 1: Some kidney damage normal GFR Stage 2: Mild kidney damage GFR 60-89 Stage 3: Moderate kidney damage GFR 30-59 Stage 4: Severe kidney damage GFR 15-29 Stage 5: Severe kidney damage GFR <15 ESRD - chronic treatment by dialysis or transplant Average GFR for 50-5 9 years old: 93 mL/min/1.73sq m Chronic Kidney Disease: <60 mL/min/1.73sq m Kidney failure: <15 mL/min/1.73sq m eGFR calculated using average adult body mass. Additional eGFR calculator available at: http://www.[employer]Uns[employer].com/multiple_crcl_2012.htm T4, Freeon 03-31-2020 Thyroxine, Free 1.40 ng/dL 0.93 - 1.7 ng/dL [place] TSH without Reflexon 020 TSH Qn 0.50 m[IU]/L [place] CBC Auto Differentialon 02-08 Basophils (Bld) [#/Vol] 0.04 10*3/uL [place] Basophils/100 WBC (Bld) 1 % 0 - 2 % [place] Differential Type NOT REPORTED [place] Eosinophils (Bld) [#/Vol] 0.20 10*3/uL [place] Eosinophils/100 WBC (Bld) 3 % 1 - 4 % [place] Erythrocyte distribution width (RBC) [Ratio] 12.9 % 11.8 - 14.4 % [place] Hematocrit (Bld) [Volume fraction] 42.4 % 40.7 - 50.3 % [place] Hemoglobin (Bld) [Mass/Vol] 13.7 g/dL 13 - 17 g/dL [place] Immature granulocytes (Bld) [#/Vol] 0 % 0 [place] Immature granulocytes (Bld) [#/Vol] 10*3/uL [place] Interpretation and review of laboratory results Abnormal [place] Lymphocytes (Bld) [#/Vol] 2.75 10*3/uL [place] Lymphocytes/100 WBC (Bld) 45 % High 24 - 43 % [place] MCH (RBC) [Entitic mass] 30.0 pg 25.2 - 33.5 pg [place] MCHC (RBC) [Mass/Vol] 32.3 g/dL 28.4 - 34.8 g/dL [place] MCV (RBC) [Entitic vol] 93.0 fL 82.6 - 102.9 fL [place] Monocytes (Bld) [#/Vol] 0.62 10*3/uL [place] Monocytes/100 WBC (Bld) 10 % 3 - 12 % [place] Platelet mean volume (Bld) [Entitic vol] 9.5 fL 8.1 - 13.5 fL [place] Platelets (Bld) [#/Vol] NOT REPORTED [place] Platelets (Bld) [#/Vol] 261 10*3/uL [place] RBC (Bld) [#/Vol] 4.56 10*6/uL 4.21 - 5.7 7 m/uL [place] RBC morphology finding Nom (Bld) NOT REPORTED [place] Segmented neutrophils/100 WBC (Bld) 41 % 36 - 65 % [place] Segs Absolute 2.49 [place] WBC (Bld) [#/Vol] 0.0 10*3/uL 0.0 per 10 0 WBC [place] WBC (Bld) [#/Vol] 6.1 10*3/uL [place] WBC Morphology NOT REPORTED [place], [place] Creatinine, Random Urineon 0 03-04-2020 Creatinine, Ur 257.2 mg/dL 39 - 259 mg/dL [place] Hepatic Function Panelon Albumin/Globulin [Mass ratio] 1.5 {ratio} [place] ALP [Catalytic activity/Vol] 86 U/L 40 - 129 U/L [place] ALT [Catalytic activity/Vol] 17 U/L 5 - 41 U/L [place] AST [Catalytic activity/Vol] 19 U/L <40 [place] Bilirubin Ql (U) 0.63 mg/dL 0.3 - 1.2 mg/dL [place] Bilirubin, Indirect CANNOT BE CALCULATED 0 - 1 mg/dL [place] Bilirubin.direct [Mass/Vol] mg/dL <0.31 mg/dL [place] Globulin (S) [Mass/Vol] NOT REPORTED 1.5 - 3.8 g/dL [place] Protein [Mass/Vol] 6.6 g/dL 6.4 - 8.3 g/dL [place] Magnesiumon 03-04-2020 Magnesium [Mass/Vol] 2.0 mg/dL 1.6 - 2 .6 mg/dL [place] Metabolic Panelon 03-04-2020 Albumin [Mass/Vol] 4 g/dL 3.5 - 5.2 g/dL [place] GFR/1.73 sq M predicted among non-blacks MDRD (S/P/Bld) [Vol rate/Area] [place] Comment on above: Average GFR for 50-5 9 years old: 93 mL/min/1.73sq m Chronic Kidney Disease: <60 mL/min/1.73sq m Kidney failure: <15 mL/min/1.73sq m eGFR calculated using average adult body mass. Additional eGFR calculator available at: [email or web address] Stage 1: Some kidney damage normal GFR Stage 2: Mild kidney damage GFR 60-89 Stage 3: Moderate kidney damage GFR 30-59 Stage 4: Severe kidney damage GFR 15-29 Stage 5: Severe kidney damage GFR <15 ESRD - chronic treatment by dialysis or transplant Protein, urine, randomon Protein (U) [Mass/Vol] 35 mg/dL [place], [place] Comment on above: No normal range esta blished. Renal Function Panelon 03-04 Anion gap [Moles/Vol] 11 mmol/L 9 - 17 mmol/L [place], [place] Bun/Cre Ratio 12 [place] Calcium [Mass/Vol] 10.0 mg/dL 8.6 - 10. 4 mg/dL [place] Chloride [Moles/Vol] 108 mmol/L High 98 - 10 7 mmol/L [place] CO2 [Moles/Vol] 23 mmol/L 20 - 31 mmol/L [place] Creatinine [Mass/Vol] 1.53 mg/dL High 0.7 - 1.2 mg/dL [place] GFR 58 mL/min Low >60 [place] GFR Non- 48 mL/min Low >60 [place] Glucose [Mass/Vol] 92 mg/dL 70 - 99 mg/dL [place] Interpretation and review of laboratory results Abnormal [place] Phosphate [Mass/Vol] 3.0 mg/dL 2.5 - 4 .5 mg/dL [place] Potassium [Moles/Vol] 4.0 mmol/L 3.7 - 5.3 mmol/L [place] Sodium [Moles/Vol] 142 mmol/L 135 - 144 mmol/L [place] Urea nitrogen [Mass/Vol] 19 mg/dL 6 - 20 mg/dL [place] Urinalysis, Chem onlyon 02-08 Bilirubin [facility] Negative [facility] [place] Color, UA YELLOW YELLOW [place], [place] Glucose, Ur Negative NEGATIVE [place] Interpretation and review of laboratory results Abnormal [place] Ketones Ql (U) Negative NEGATIVE [place] Leukocyte esterase Test strip Ql (U) Negative NEGATIVE [place] Nitrite, Urine Negative NEGATIVE [place] pH, UA 5.5 [place] Protein (U) [Mass/Vol] TRACE Abnormal NEGATIVE [place] Specific [place], UA >1.030 High [place], [place] Turbidity UA CLEAR CLEAR [place] Urinalysis Comments NOT REPORTED [place] Urine Hgb Negative NEGATIVE [place] Urobilinogen, Urine Normal Normal [place] CBC Auto Differentialon 01-09 Basophils (Bld) [#/Vol] 0.06 10*3/uL [place] Basophils/100 WBC (Bld) 1 % 0 - 2 % [place] Differential Type NOT REPORTED [place] Eosinophils (Bld) [#/Vol] 0.31 10*3/uL [place] Eosinophils/100 WBC (Bld) 4 % 1 - 4 % [place] Erythrocyte distribution width (RBC) [Ratio] 12.5 % 11.8 - 14.4 % [place] Hematocrit (Bld) [Volume fraction] 42.2 % 40.7 - 50.3 % [place] Hemoglobin (Bld) [Mass/Vol] 13.9 g/dL 13 - 17 g/dL [place] Immature granulocytes (Bld) [#/Vol] 0 % 0 [place] Immature granulocytes (Bld) [#/Vol] 10*3/uL [place] Lymphocytes (Bld) [#/Vol] 3.46 10*3/uL [place] Lymphocytes/100 WBC (Bld) 40 % 24 - 43 % [place] MCH (RBC) [Entitic mass] 30.5 pg 25.2 - 33.5 pg [place] MCHC (RBC) [Mass/Vol] 32.9 g/dL 28.4 - 34.8 g/dL [place] MCV (RBC) [Entitic vol] 92.5 fL 82.6 - 102.9 fL [place] Monocytes (Bld) [#/Vol] 0.81 10*3/uL [place] Monocytes/100 WBC (Bld) 9 % 3 - 12 % [place] Platelet mean volume (Bld) [Entitic vol] 9.3 fL 8.1 - 13.5 fL [place] Platelets (Bld) [#/Vol] NOT REPORTED [place] Platelets (Bld) [#/Vol] 276 10*3/uL [place] RBC (Bld) [#/Vol] 4.56 10*6/uL 4.21 - 5.7 7 m/uL [place] RBC morphology finding Nom (Bld) NOT REPORTED [place] Segmented neutrophils/100 WBC (Bld) 46 % 36 - 65 % [place] Segs Absolute 4.05 [place] WBC (Bld) [#/Vol] 8.7 10*3/uL [place] WBC (Bld) [#/Vol] 0.0 10*3/uL 0.0 per 10 0 WBC [place] WBC Morphology NOT REPORTED [place], [place] Metabolic Panelon 01-28-2020 GFR/1.73 sq M predicted among non-blacks MDRD (S/P/Bld) [Vol rate/Area] [place] Comment on above: Average GFR for 50-5 9 years old: 93 mL/min/1.73sq m Chronic Kidney Disease: <60 mL/min/1.73sq m Kidney failure: <15 mL/min/1.73sq m eGFR calculated using average adult body mass. Additional eGFR calculator available at: http://[email or web address]_[email or web address] Stage 1: Some kidney damage normal GFR Stage 2: Mild kidney damage GFR 60-89 Stage 3: Moderate kidney damage GFR 30-59 Stage 4: Severe kidney damage GFR 15-29 Stage 5: Severe kidney damage GFR <15 ESRD - chronic treatment by dialysis or transplant Renal Function Panelon 01-27 Albumin [Mass/Vol] 3.9 g/dL 3.5 - 5.2 g/dL [place] Anion gap [Moles/Vol] 10 mmol/L 9 - 17 mmol/L [place] Bun/Cre Ratio 13 [place] Calcium [Mass/Vol] 9.6 mg/dL 8.6 - 10. 4 mg/dL [place] Chloride [Moles/Vol] 105 mmol/L 98 - 10 7 mmol/L [place] CO2 [Moles/Vol] 24 mmol/L 20 - 31 mmol/L [place] Creatinine [Mass/Vol] 1.43 mg/dL High 0.7 - 1.2 mg/dL [place] GFR >60 >60 mL/min [place] GFR Non- 52 mL/min Low >60 [place] Glucose [Mass/Vol] 109 mg/dL High 70 - 99 mg/dL [place] Interpretation and review of laboratory results Abnormal [place] Phosphate [Mass/Vol] 3.7 mg/dL 2.5 - 4 .5 mg/dL [place] Potassium [Moles/Vol] 4.3 mmol/L 3.7 - 5.3 mmol/L [place] Sodium [Moles/Vol] 139 mmol/L 135 - 144 mmol/L [place] Urea nitrogen [Mass/Vol] 19 mg/dL 6 - 20 mg/dL [place] CBC Auto Differentialon 12-08 Basophils (Bld) [#/Vol] 10*3/uL [place] Basophils/100 WBC (Bld) 0 % 0 - 2 % [place] Differential Type NOT REPORTED [place] Eosinophils (Bld) [#/Vol] 0.16 10*3/uL [place] Eosinophils/100 WBC (Bld) 3 % 1 - 4 % [place] Erythrocyte distribution width (RBC) [Ratio] 12.4 % 11.8 - 14.4 % [place] Hematocrit (Bld) [Volume fraction] 39.1 % Low 40.7 - 50.3 % [place] Hemoglobin (Bld) [Mass/Vol] 12.7 g/dL Low 13 - 17 g/dL [place] Immature granulocytes (Bld) [#/Vol] 0 % 0 [place] Immature granulocytes (Bld) [#/Vol] 10*3/uL [place] Interpretation and review of laboratory results Abnormal [place] Lymphocytes (Bld) [#/Vol] 3.25 10*3/uL [place] Lymphocytes/100 WBC (Bld) 53 % High 24 - 43 % [place] MCH (RBC) [Entitic mass] 30.5 pg 25.2 - 33.5 pg [place] MCHC (RBC) [Mass/Vol] 32.5 g/dL 28.4 - 34.8 g/dL [place] MCV (RBC) [Entitic vol] 94.0 fL 82.6 - 102.9 fL [place] Monocytes (Bld) [#/Vol] 0.52 10*3/uL [place] Monocytes/100 WBC (Bld) 8 % 3 - 12 % [place] Platelet mean volume (Bld) [Entitic vol] 8.6 fL 8.1 - 13.5 fL [place] Platelets (Bld) [#/Vol] NOT REPORTED [place] Platelets (Bld) [#/Vol] 227 10*3/uL [place] RBC (Bld) [#/Vol] 4.16 10*6/uL Low 4.21 - 5.7 7 m/uL [place] RBC morphology finding Nom (Bld) NOT REPORTED [place] Segmented neutrophils/100 WBC (Bld) 36 % 36 - 65 % [place] Segs Absolute 2.21 [place] WBC (Bld) [#/Vol] 6.2 10*3/uL [place] WBC (Bld) [#/Vol] 0.0 10*3/uL 0.0 per 10 0 WBC [place] WBC Morphology NOT REPORTED [place] Metabolic Panelon 12-27-2019 GFR/1.73 sq M predicted among non-blacks MDRD (S/P/Bld) [Vol rate/Area] [place], [place] Comment on above: Average GFR for 50-5 9 years old: 93 mL/min/1.73sq m Chronic Kidney Disease: <60 mL/min/1.73sq m Kidney failure: <15 mL/min/1.73sq m eGFR calculated using average adult body mass. Additional eGFR calculator available at: [email or web address] Stage 1: Some kidney damage normal GFR Stage 2: Mild kidney damage GFR 60-89 Stage 3: Moderate kidney damage GFR 30-59 Stage 4: Severe kidney damage GFR 15-29 Stage 5: Severe kidney damage GFR <15 ESRD - chronic treatment by dialysis or transplant Renal Function Panelon 12-26 Albumin [Mass/Vol] 3.9 g/dL 3.5 - 5.2 g/dL [place] Anion gap [Moles/Vol] 7 mmol/L Low 9 - 17 mmol/L [place] Bun/Cre Ratio 11 [place] Calcium [Mass/Vol] 9.1 mg/dL 8.6 - 10. 4 mg/dL [place] Chloride [Moles/Vol] 104 mmol/L 98 - 10 7 mmol/L [place] CO2 [Moles/Vol] 26 mmol/L 20 - 31 mmol/L [place] Creatinine [Mass/Vol] 1.25 mg/dL High 0.7 - 1.2 mg/dL [place] GFR >60 >60 mL/min [place] GFR Non- >60 >60 mL/min [place] Glucose [Mass/Vol] 97 mg/dL 70 - 99 mg/dL [place] Interpretation and review of laboratory results Abnormal [place] Phosphate [Mass/Vol] 2.5 mg/dL 2.5 - 4 .5 mg/dL [place] Potassium [Moles/Vol] 4.3 mmol/L 3.7 - 5.3 mmol/L [place] Sodium [Moles/Vol] 137 mmol/L 135 - 144 mmol/L [place] Urea nitrogen [Mass/Vol] 14 mg/dL 6 - 20 mg/dL [place] CBC Auto Differentialon 11-11 Basophils (Bld) [#/Vol] 0.05 10*3/uL [place] Basophils/100 WBC (Bld) 1 % 0 - 2 % [place] Differential Type NOT REPORTED [place] Eosinophils (Bld) [#/Vol] 0.27 10*3/uL [place] Eosinophils/100 WBC (Bld) 4 % 1 - 4 % [place] Erythrocyte distribution width (RBC) [Ratio] 12.7 % 11.8 - 14.4 % [place] Hematocrit (Bld) [Volume fraction] 41.7 % 40.7 - 50.3 % [place] Hemoglobin (Bld) [Mass/Vol] 13.2 g/dL 13 - 17 g/dL [place] Immature granulocytes (Bld) [#/Vol] 0 % 0 [place] Immature granulocytes (Bld) [#/Vol] 10*3/uL [place] Interpretation and review of laboratory results Abnormal [place] Lymphocytes (Bld) [#/Vol] 3.41 10*3/uL [place] Lymphocytes/100 WBC (Bld) 48 % High 24 - 43 % [place] MCH (RBC) [Entitic mass] 30.3 pg 25.2 - 33.5 pg [place] MCHC (RBC) [Mass/Vol] 31.7 g/dL 28.4 - 34.8 g/dL [place] MCV (RBC) [Entitic vol] 95.9 fL 82.6 - 102.9 fL [place] Monocytes (Bld) [#/Vol] 0.83 10*3/uL [place] Monocytes/100 WBC (Bld) 12 % 3 - 12 % [place] Platelet mean volume (Bld) [Entitic vol] 9.1 fL 8.1 - 13.5 fL [place] Platelets (Bld) [#/Vol] NOT REPORTED [place] Platelets (Bld) [#/Vol] 270 10*3/uL [place] RBC (Bld) [#/Vol] 4.35 10*6/uL 4.21 - 5.7 7 m/uL [place] RBC morphology finding Nom (Bld) NOT REPORTED [place] Segmented neutrophils/100 WBC (Bld) 35 % Low 36 - 65 % [place] Segs Absolute 2.46 [place] WBC (Bld) [#/Vol] 7.0 10*3/uL [place] WBC (Bld) [#/Vol] 0.0 10*3/uL 0.0 per 10 0 WBC [place] WBC Morphology NOT REPORTED [place] Metabolic Panelon 12-03-2019 GFR/1.73 sq M predicted among non-blacks MDRD (S/P/Bld) [Vol rate/Area] [place] Comment on above: Average GFR for 50-5 9 years old: 93 mL/min/1.73sq m Chronic Kidney Disease: <60 mL/min/1.73sq m Kidney failure: <15 mL/min/1.73sq m eGFR calculated using average adult body mass. Additional eGFR calculator available at: [email or web address] Stage 1: Some kidney damage normal GFR Stage 2: Mild kidney damage GFR 60-89 Stage 3: Moderate kidney damage GFR 30-59 Stage 4: Severe kidney damage GFR 15-29 Stage 5: Severe kidney damage GFR <15 ESRD - chronic treatment by dialysis or transplant Renal Function Panelon 12-03 Albumin [Mass/Vol] 3.8 g/dL 3.5 - 5.2 g/dL [place] Anion gap [Moles/Vol] 7 mmol/L Low 9 - 17 mmol/L [place] Bun/Cre Ratio 15 [place] Calcium [Mass/Vol] 9.5 mg/dL 8.6 - 10. 4 mg/dL [place] Chloride [Moles/Vol] 107 mmol/L 98 - 10 7 mmol/L [place] CO2 [Moles/Vol] 25 mmol/L 20 - 31 mmol/L [place] Creatinine [Mass/Vol] 1.3 mg/dL High 0.7 - 1.2 mg/dL [place] GFR >60 >60 mL/min [place] GFR Non- 58 mL/min Low >60 [place] Glucose [Mass/Vol] 99 mg/dL 70 - 99 mg/dL [place] Interpretation and review of laboratory results Abnormal [place] Phosphate [Mass/Vol] 3.9 mg/dL 2.5 - 4 .5 mg/dL [place] Potassium [Moles/Vol] 4.2 mmol/L 3.7 - 5.3 mmol/L [place] Sodium [Moles/Vol] 139 mmol/L 135 - 144 mmol/L [place] Urea nitrogen [Mass/Vol] 19 mg/dL 6 - 20 mg/dL [place] XR CERVICAL SPINE (4-5 VIEWS )on 11-14-2019 No acute abnormality seen on plain film. [facility] [employer] Work Phone: EXAMINATION: 5 XRAY VIEWS OF THE CERVICAL SPINE 11/12/2019 12:19 pm COMPARISON: CT scan done September 25, 2019 HISTORY: ORDERING SYSTEM PROVIDED HISTORY: Multiple fractures of ribs of right side with routine healing FINDINGS: The cervical vertebrae are in good alignment. The right C7 transverse process and lateral mass fracture as well as the left T1 and T2 fractures are not well seen on plain film. The vertebrae are in good alignment. There is no subluxation. The prevertebral soft tissues are normal. [employer] Phone: Jose, pn Incoming Radiant Results From [employer] - 11/14/2019 8:09 PM EST EXAMINATION: 5 XRAY VIEWS OF THE CERVICAL SPINE 11/12/2019 12:19 pm COMPARISON: CT scan done September 25, 2019 HISTORY: ORDERING SYSTEM PROVIDED HISTORY: Multiple fractures of ribs of right side with routine healing FINDINGS: The cervical vertebrae are in good alignment. The right C7 transverse process and lateral mass fracture as well as the left T1 and T2 fractures are not well seen on plain film. The vertebrae are in good alignment. There is no subluxation. The prevertebral soft tissues are normal. IMPRESSION: No acute abnormality seen on plain film. [employer] Phone: XR FACIAL BONES (MIN 3 VIEWS )on 11-14-2019 Subacute bilateral n reyna fractures. 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 The nasal septum is deviated to the left. The paranasal sinuses are clear. 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 The nasal septum is deviated to the left. The paranasal sinuses are clear. IMPRESSION: Subacute bilateral nasal fractures. [employer] Phone: XR LUMBAR SPINE (2-3 VIEWS)o n 11-14-2019 Limited assessment patient's known left L1 and L2 transverse process fractures. Multilevel degenerative disc disease with facet arthropathy. RECOMMENDATION: If there is further concern for infection, nerve root compression or disc herniation correlation to MRI imaging would be recommended. [employer] Phone: EXAMINATION: THREE X RAY VIEWS OF THE LUMBAR SPINE 11/12/2019 12:20 pm COMPARISON: 09/25/2019 HISTORY: ORDERING SYSTEM PROVIDED HISTORY: Multiple fractures of ribs of right side with routine healing Follow-up FINDINGS: Vertebral body height and caliber are maintained without spondylolisthesis. Patient's known L1 and L2 transverse process fractures are not well visualized. Mild-moderate multilevel degenerative disc disease with facet arthropathy most evident L3-L4 and L4-L5. [employer] Phone: Jose, Mhpn Incoming Radiant Results From [employer] - 11/14/2019 8:09 AM EST EXAMINATION: THREE XRAY VIEWS OF THE LUMBAR SPINE 11/12/2019 12:20 pm COMPARISON: 09/25/2019 HISTORY: ORDERING SYSTEM PROVIDED HISTORY: Multiple fractures of ribs of right side with routine healing Follow-up FINDINGS: Vertebral body height and caliber are maintained without spondylolisthesis. Patient's known L1 and L2 transverse process fractures are not well visualized. Mild-moderate multilevel degenerative disc disease with facet arthropathy most evident L3-L4 and L4-L5. IMPRESSION: Limited assessment patient's known left L1 and L2 transverse process fractures. Multilevel degenerative disc disease with facet arthropathy. RECOMMENDATION: If there is further concern for infection, nerve root compression or disc herniation correlation to MRI imaging would be recommended. [employer] Phone: XR RIBS BILATERAL (3 VIEWS)o n 11-14-2019 Healing bilateral ri b fractures. Minimal effusions. [employer] Phone: EXAMINATION: 7 X-RAY VIEWS OF THE BILATERAL RIBS 11/12/2019 12:20 pm COMPARISON: 09/25/2019 HISTORY: ORDERING SYSTEM PROVIDED HISTORY: Multiple fractures of ribs of right side with routine healing. Follow-up FINDINGS: Progressive healing of the numerous bilateral rib fractures. Overall alignment is stable. Probable small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 [facility] Comment on above: Performed By: #### . Automated Diff ####[address] [address] Eos Absolute 0.6 x10*3/mcL High 0.0-0.4 [facility] Comment on above: Performed By: #### . Automated Diff ####[address] [address] Eosinophils/100 leukocytes 10.0 % High 0.0-6.1 [facility] Comment on above: Performed By: #### . Automated Diff ####[address] [address] Lymphocytes 0.6 x10*3/mcL Low 1.0-4.8 [facility] Comment on above: Performed By: #### . Automated Diff ####[address] [address] Lymphocytes/100 leukocytes 10.1 % Low 27.2-40.8 [facility] Comment on above: Performed By: #### . Automated Diff ####[place] [id number] [place] Absolute 0.6 x10*3/mcL Normal 0.3-1.1 [facility] Comment on above: Performed By: #### . Automated Diff ####[address] [address] Monocytes/100 leukocytes 10.2 % Normal 4.7-13.9 [facility] Comment on above: Performed By: #### . Automated Diff ####[address] [address] Neutro Absolute 4.2 x10*3/mcL Normal 1.8-7.7 [facility] Comment on above: Performed By: #### . Automated Diff ####[place] [id number] Neutro Auto 68.7 % Normal 47.2-70.8 [facility] Comment on above: Performed By: #### . Automated Diff ####[place] [id number] ED Clinical Summaryon 2016 ED Clinical Summary (Inserted Image. Daniela ble to display) [place] [address] ed Clinical SummaryPerson InformationName: Vandana Stringer[facility] Age: 52 Years : 1965Sex: Male PCP:Marital Status: race:White Ethnicity:Not or Language:EnglishMRN: [id number] Reason:Laceration - head; Fall; Fall Acuity: 3Enc Type: Emergency Med Service: Emergency MedicineArrival: 7 16:12:00 Discharge: 06/08/2017 18:52:00 LOS: 000 02:40Checkin:06/08/2017 16:12:00 Checkout: 06/08/2017 18:52:00 Dispo Type: Home or Self CareAddress:[address] [facility] [address] Provider Notes:Diagnosis:1:Head injury; 2:Syncope; 3:Scalp laceration; 4:Renal insufficiencyProblems No Problems DocumentedSmoking Status: Smoking Status Never smokerFunctional Status:Sensory Deficits:History of Falls:Mobility Assistance Prior to Admission:ADLs:Current Level of Assistance for Self-Care/Mobility:Cogni tive Status:Allergies No Known Medication AllergiesLaboratory or Other Results This Visit (last charted value for your 06/08/2017 visit) Hematology 06/08/2017 4:32 PM WBC: 6.1 x10 RBC: 3.28 x10 Neutro Auto: 68.7 % -- Normal range between ( 47.2 and 70.8 ) Lymph Auto: 10.1 % -- Normal range between ( 27.2 and 40.8 ) [place] Auto: 10.2 % -- Normal range between ( 4.7 and 13.9 ) Eos Auto: 10.0 % -- Normal range between ( 0.0 and 6.1 ) Basophil Auto: 1.0 % -- Normal range between ( 0.0 and 1.2 ) Baso Absolute: 0.1 x10 MCV: 97.5 fL -- Normal range between ( 80.0 and 100.0 ) MCHC: 34.8 % -- Normal range between ( 31.0 and 37.0 ) Lymph Absolute: 0.6 x10 Hct: 31.9 % -- Normal range between ( 41.0 and 53.0 ) [place] Absolute: 0.6 x10 MCH: 33.9 pg -- Normal range between ( 27.0 and 35.0 ) Neutro Absolute: 4.2 x10 Hgb: 11.1 g/dL -- Normal range between ( 13.5 and 17.5 ) Mean Platelet Volume: 8.4 fL -- Normal range between ( 6.7 and 10.6 ) Platelet: 329 x10 Eos Absolute: 0.6 x10 RDW: 14.1 % -- Normal range between ( 11.6 and 14.8 ) Coagulation 06/08/2017 4:32 PM PT: 15.2 seconds -- Normal range between ( 9.1 and 11.9 ) INR: 1.6 ratio Urinalysis 06/08/2017 5:06 PM UA Spec Grav: 1.008 -- Normal range between ( 1.003 and 1.035 ) UA pH: 5.0 Chemistry 06/08/2017 5:06 PM Ur Creatinine: 89.2 mg/dL 06/08/2017 4:32 PM Creatinine Lvl: 5.14 mg/dL -- Normal range between ( 0.61 and 1.24 ) BUN: 45 mg/dL -- Normal range between ( 8 and 26 ) Glucose Lvl: 95 mg/dL -- Normal range between ( 74 and 118 ) Potassium Lvl: 3.5 mmol/L -- Normal range between ( 3.4 and 4.8 ) AST: 27 IU/L -- Normal range between ( 15 and 41 ) ALT: 30 IU/L -- Normal range between ( 17 and 63 ) Sodium Lvl: 141 mmol/L -- Normal range between ( 133 and 142 ) Calcium Lvl: 10.0 mg/dL -- Normal range between ( 8.5 and 10.3 ) Albumin Lvl: 3.3 g/dL -- Normal range between ( 3.2 and 4.9 ) Total Protein: 6.4 g/dL -- Normal range between ( 6.5 and 8.1 ) Bili Total: 0.8 mg/dL -- Normal range between ( 0.3 and 1.2 ) Alk Phos: 103 IU/L -- Normal range between ( 32 and 91 ) Chloride: 105 mmol/L -- Normal range between ( 98 and 110 ) CO2: 27 mmol/L -- Normal range between ( 22 and 32 ) Anion Gap: 12 -- Normal range between ( 7 and 17 ) eGFR Non-AA: 12 mL/min/1.73m? eGFR AA: 14 mL/min/1.73m? BUN Crea Ratio: 8.8 -- Normal range between ( 15.0 and 25.0 ) AG Ratio: 1.1 -- Normal range between ( 1.1 and 2.2 ) Toxicology 06/08/2017 5:22 PM Ethanol Lvl: <0.005 g/dL 06/08/2017 5:06 PM Ur PCP Scrn: Negative ng/mL Ur Opiate Scrn: Negative ng/mL Ur Methadone Scn: Negative ng/mL Ur Cannab Scrn: Negative ng/mL Ur Amph Scrn: Negative ng/mL Ur Benzodia Scrn: Negative ng/mL Ur Olinda Scrn: Negative ng/mL Ur Methaqualone Scn: Negative ng/mL Ur Propoxyphene Scn: Negative ng/mL Ur Cocaine Scrn: Negative ng/mL Computed Tomography 06/08/2017 4:[address] Brain w/o Contrast: CT Brain w/o Contrast 06/08/2017 4:[address] Spine Cervical w/o Contrast: CT Spine Cervical w/o Contrast Diagnostic Radiology 06/08/2017 4:56 PM XR Chest 1 View: XR Chest 1 ViewMeasurements:Height: Weight: 109.3 kgBlood Pressure: /83 mmHgBMI:Procedures No Procedures DocumentedImmunizations No Immunizations Documented This VisitFinal Med List:No Medications DocumentedCare Team Members:Attending Physician: Beverly PHILLIPS, MarkoConsulian Physician:Referring Physician:Provider Role Assigned UnassignedStarla Messer ED Nurse 06/08/2017 16:13:53Beverly PHILLIPS, Marko ED Provider 06/08/2017 16:15:05Follow up:With: Address: When:Please also keep follow-up appointment with your senior principal process engineer family physician as discussed Within 1 to 2 daysDischarge Orders:Discharge Patient 06/08/17 18:42:00 EDT, Discharge to Home, SelfPatient Education Information:RENAL INSUFFICIENCY; LACERATION, Scalp; HEAD INJURY w/ Wake-Up (Adult); HEAD INJURY w/ Wake-Up (Adult); [facility] Poison Help line: .[facility] Hotline: [place] Tobacco Quit Line: [place], [place]) [address]: [phone] ([place], [place]) [address]: [phone] 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 Pt does not remember the fall happening. pt dose have klaceration on back of headHistory of Present Illness Patient is a 52 year old male presenting to the emergency department by private vehicle complaining of syncope. He states he had a syncopal episode with no warning, fell backwards and his his head Patient states the symptoms started just prior to arrival. Patient rates the symptoms as moderate, and are unchanged since arriving to the emergency department. Patient symptoms are aggravated by nothing, and alleviated by nothing. Patient does not have a history of similar symptoms. Patient has not been seen by a physician recently. Patient?s past medical history includes seizures.Review of Systems GENERAL: [Negative for weakness, malaise] EYES: [Negative for injury, pain, redness, discharge] HENT: [Positive for head injury Negative for pain , sore throat and discharge] NECK: [Negative for injury, pain, swelling, and stiffness] CARDIOVASCULAR: [Negative for chest pain, palpitations] RESPIRATORY: [Negative for shortness of breath, cough, wheezing, and pleuritic chest pain] ABDOMEN/GI: [Negative for pain, nausea, vomiting] BACK: [Negative for injury or bruising] : [Negative for injury, bleeding, discharge, frequency, hematuria, urgency] MUSCULOSKELETAL: [Negative for arthralgias, injury and deformity] SKIN: [Negative for injury, rash, discoloration] NEURO: [Positive for syncope Negative for focal weakness, numbness, tingling, and seizure] ALLERGY/IMMUNOLOGY: [Negative for hives, rash, and new allergies] ENDOCRINE: [Negative for neck swelling, polydipsia, polyuria, marked weight changes, heat/cold intolerance] HEMATOLOGIC/LYMPHATIC: [Negative for swollen lymph nodes, abnormal bleeding, and unusual bruising]Physical Exam Constitutional: the patient appears in no acute distress, alert, awake, non-toxic. Head/face: possible laceration on the posterior scalp, unable to fully visualize due to hair Eyes: Pupils: equal, round, and reactive to light. Sclera: no appreciated abnormality ENT: Exam is negative for injury or acute deformity Neck: Immobilized in c-collar, on palpation through the back of collar there is no tenderness Trachea: is midline with no obvious abnormalities Chest: There is no trauma, no TTP, no crepitance Cardiovascular: Rate: normal, Rhythm: regular, Pulses: no pulse deficits are appreciated, Heart sounds: normal, JVD: is not appreciated. Respiratory: Exam negative for respiratory distress, Respirations: normal, Breath sounds: are normal and equal b/l. Abdomen: Inspection: abdomen appears normal, there is no trauma noted, negative seat-belt sign, Palpation: abdomen is soft and non-tender Back: While patient maintained in c-spine precaution, with additional staff, patient log-rolled. There is no midline bony tenderness to palpation, no trauma noted. Musculoskeletal: Extremities: all appear grossly normal, there is full ROM at major joints of the upper and lower extremities with no appreciated pain with palpation, Perfusion: the patient is warm, the extremity is warm. Sensation intact. Skin: Exam negative for any evidence of obvious injury, Neuro: GCS is 15, Mentation: able to follow commands, Motor: strength is normal, moves all extremities x 4 with no weakness. Psych: Exam negative for acute changes, delusions, inappropriate behavior.Vitals & Measurements T: 37.2 ?C (Oral) RR: 15 BP: 132/83 SpO2: 98% DOSE WT: 109.3 kg Additional Vitals Peripheral Pulse Rate: 90 bpmProcedure Laceration Repair Staple Closure Procedure Note Location: [_occipital region of scalp_] Anesthesia: [_LET_] Laceration length/type: [_1.2 cm horizontal laceration__] Number of ashley: [_2__] The wound was cleansed with normal saline irrigation under pressure. Wound exploration reveals no muscle, tendon, nerve injury or foreign body. No palpable fracture. Wound was repaired under sterile technique with surgical skin ashley. Neosporin was applied. Patient tolerated the procedure well without complications. This document serves as a record of the services and decisions personally performed and made by the attending physician of record. It was created on his/her behalf by a trained medical records administrator. The creation of this document is based on the provider?s statements to the medical records administrator. Signed by Essence Wyman. 06/08/2017, 18:33.Medical Decision Making This document serves as a record of the services and decisions personally performed and made by the attending physician of record. It was created on his/her behalf by a trained medical records administrator. The creation of this document is based on the provider?s statements to the medical records administrator. Signed by: Essence Saravia, 06/08/17, 16:24. Scribe Attestation: The information in this document, created by the medical records administrator for me, accurately reflects the services I personally performed and the decisions made by me. EKG performed 06/08/2017 16:22 Rate: [82 BPM] Rhythm: [Sinus Rhythm] ME/QRS intervals: [151/102 ms] QT/QTc: [368/406 ms] QRS axis: [-10] Interpretation: [Normal EKG] ED EKG interpretation by me. This document serves as a record of the services and decisions personally performed and made by the attending physician of record. It was created on his/her behalf by a trained medical records administrator. The creation of this document is based on the provider?s statements to the medical records administrator. Signed by Essence Wyman. 06/08/2017, 19:50. Patient does have a history of renal dysfunction and is worried his creatinine being 5.14 he relates he has a follow-up appointment with his senior principal process engineer the next 1-2 days he is advised to keep that appointment is agreeable discharge home feels fine and actuality prefers to go home Chest x-ray had been performed no pneumothorax preliminary read by the undersignedReexamination /Reevaluation Patient felt much better during emergency Department course---Assessment/Plan 1. Head injury 2. Syncope 3. Scalp laceration 4. Renal insufficiencyProblem List/Past Medical History Ongoing Appendicitis Chronic kidney failure Seizure Historical No qualifying dataMedications Home No active home medications Inpatient NS 1,000 mL, 1000 mL, IV Prescriptions No active PrescriptionsAllergies No Known Medication AllergiesSocial History Alcohol Never Substance Abuse Denies All Tobacco Never smokerLab Results Automated Hematology LATEST RESULTS WBC 06/08/17 16:32 6.1 RBC 06/08/17 16:32 3.28 Low Hgb 06/08/17 16:32 11.1 Low Hct 06/08/17 16:32 31.9 Low MCV 06/08/17 16:32 97.5 MCH 06/08/17 16:32 33.9 MCHC 06/08/17 16:32 34.8 RDW 06/08/17 16:32 14.1 Platelet 06/08/17 16:32 329 Mean Platelet Volume 06/08/17 16:32 8.4 Neutro Auto 06/08/17 16:32 68.7 Lymph Auto 06/08/17 16:32 10.1 Low [place] Auto 06/08/17 16:32 10.2 Eos Auto 06/08/17 16:32 10.0 High Basophil Auto 06/08/17 16:32 1.0 Neutro Absolute 06/08/17 16:32 4.2 Lymph Absolute 06/08/17 16:32 0.6 Low [place] Absolute 06/08/17 16:32 0.6 Eos Absolute 06/08/17 16:32 0.6 High Baso Absolute 06/08/17 16:32 0.1 Coagulation LATEST RESULTS PT 06/08/17 16:32 15.2 High INR 06/08/17 16:32 1.6 Routine Chemistry LATEST RESULTS Sodium Lvl 06/08/17 16:32 141 Potassium Lvl 06/08/17 16:32 3.5 Chloride 06/08/17 16:32 105 CO2 06/08/17 16:32 27 Anion Gap 06/08/17 16:32 12 Glucose Lvl 06/08/17 16:32 95 BUN 06/08/17 16:32 45 High Creatinine Lvl 06/08/17 16:32 5.14 High eGFR AA 06/08/17 16:32 14 Low eGFR Non-AA 06/08/17 16:32 12 Low BUN Crea Ratio 06/08/17 16:32 8.8 Low Bili Total 06/08/17 16:32 0.8 Alk Phos 06/08/17 16:32 103 High AST 06/08/17 16:32 27 ALT 06/08/17 16:32 30 Total Protein 06/08/17 16:32 6.4 Low Albumin Lvl 06/08/17 16:32 3.3 AG Ratio 06/08/17 16:32 1.1 Calcium Lvl 06/08/17 16:32 10.0 Random Urine Chemistry LATEST RESULTS Ur Creatinine 06/08/17 17:06 89.2 Serum Toxicology LATEST RESULTS Ethanol Lvl 06/08/17 17:22 <0.005 Urine Toxicology LATEST RESULTS Ur Amph Scrn 06/08/17 17:06 Negative Ur Olinda Scrn 06/08/17 17:06 Negative Ur Benzodia Scrn 06/08/17 17:06 Negative Ur Cannab Scrn 06/08/17 17:06 Negative Ur Cocaine Scrn 06/08/17 17:06 Negative Ur Methadone Scn 06/08/17 17:06 Negative Ur Methaqualone Scn 06/08/17 17:06 Negative Ur Opiate Scrn 06/08/17 17:06 Negative Ur PCP Scrn 06/08/17 17:06 Negative Ur Propoxyphene Scn 06/08/17 17:06 Negative UA Macroscopic LATEST RESULTS UA Spec Grav 06/08/17 17:06 1.008 UA pH 06/08/17 17:06 5.0Diagnostic Results XRay XR Chest 1 View 06/08/17 18:28:34 IMPRESSION: Unremarkable portable AP chest radiograph. Signed By: Babita PHILLIPS, Jono Grace Computerized Tomagraphy No qualifying data available. Ultrasound No qualifying data available. Magnetic Resonance Imaging No qualifying data available. Eduardo ColindresElectronically signed by ___Beverly PHILLIPS, Marko 06/09/2017 20:33 EDT Normal [facility] Ethanolon 06-08-2017 Ethanol Lvl <0.005 Normal <=0.005 [facility] Comment on above: Performed By: #### A LC ####[address] [address] PTon 06-08-2017 INR Coag RelTime (PPP) 1.6 {INR} Normal <=3.5 [facility] Comment on above: Result Comment: INR has no normal range. INR Therapeutic range is:2.0-3.0 (AF, CVA, TIAs, DVT prophylaxis, acute DVT)2.5-3.5 ([facility] heart valves, recurrent thrombosis/emboli) Performed By: #### P TINR ####[address] [address] Prothrombin time (PT) Coag time (PPP) 15.2 s High 9.1-11.9 [facility] Comment on above: Performed By: #### P TINR ####[address] [address] Ur Ehut07hh 06-08-2017 Creatinine 89.2 mg/dL Normal [facility] Comment on above: Result Comment: The reference range has not been established for this test on a random urine sample. The test result should be interpreted based on clinical context. Performed By: #### D RUG10 ####[address] [address] Ur Amph Scrn Negative Normal NEG = <1000 [facility] Comment on above: Performed By: #### D RUG10 ####[address] [address] Ur Olinda Scrn Negative Normal NEG = <200 [facility] Comment on above: Performed By: #### D RUG10 ####[address] [address] Ur Benzodia Scrn Negative Normal NEG = <200 [facility] Comment on above: Performed By: #### D RUG10 ####[address] [address] Ur Cannab Scrn Negative Normal NEG = <50 [facility] Comment on above: Performed By: #### D RUG10 ####[address] [address] Ur Cocaine Scrn Negative Normal NEG = <300 [facility] Comment on above: Performed By: #### D RUG10 ####[address] [address] Ur Methadone Scn Negative Normal NEG = <300 [facility] Comment on above: Performed By: #### D RUG10 ####[address] [address] Ur Methaqualone Scn Negative Normal NEG = <300 [facility] Comment on above: Performed By: #### D RUG10 ####[address] [address] Ur Opiate Scrn Negative Normal NEG = <300 [facility] Comment on above: Performed By: #### D RUG10 ####[address] [place] [address] Ur PCP Scrn Negative Normal NEG = <25 [facility] Comment on above: Performed By: #### D RUG10 ####[address] [address] Ur Propoxyphene Scn Negative Normal NEG = <300 [facility] Comment on above: Performed By: #### D RUG10 ####[address] [address] UA pH 5.0 Normal 4.5 - 7.8 [facility] Comment on above: Performed By: #### D RUG10 ####[address] [address] UA Spec Grav 1.008 Normal 1.003-1.035 [facility] Comment on above: Performed By: #### D RUG10 ####[address] [address] XR Chest 1 Viewon 06-08-2017 XR Chest 1 View Procedure: Portable AP view of the chest.Clinical information: 52-year-old male with fall today.Comparison: None.Findings:Lungs/pleu ra: Grossly clear lungs.No pneumothorax.No frontal view evidence for pleural effusion.Heart/mediastin um: Unremarkable silhouette.Bones/soft tissues: No gross acute or aggressive abnormality.IMPRESSION: Unremarkable portable AP chest radiograph. Final Dictated by: Jono Jc MD DT/TM: 06/08/2017 6:24 pmSigned by: Jono Jc MD (Electronic Signature): 06/08/2017 6:26 pm(If Report Is Signed, Electronically Signed in Other Vendor System) Normal [facility] Vital Signs Date Time Vital Sign Value Performing Clinician Facility 03-07-2024 09: Body height 172.72 cm [facility] 03-07-2024 09:19-0400 Body mass index (BMI) [Ratio] 29.6 kg/m2 [facility] 03-07-2024 09:19-0400 Body weight 88.45 kg [facility] 03-07-2024 09:19-0400 Diastolic blood pressure 75 mm[Hg] [facility] 03-07-2024 09:19-0400 Heart rate 89 /min [facility] 03-07-2024 09:19-0400 Systolic blood pressure 121 mm[Hg] [facility] 02-29-2024 21:44-0400 Diastolic blood pressure 64 mm[Hg] Alejandro Lee DO Work Phone: [facility] [employer] 02-29-2024 21:44-0400 Heart rate 95 /min Alejandro Lee DO Work Phone: [facility] [employer] 02-29-2024 21:44-0400 Respiratory rate 20 /min Alejandro Lee DO Work Phone: [facility] [employer] 02-29-2024 21:44-0400 SaO2% (BldA) [Mass fraction] 97 % Alejandro Lee DO Work Phone: [facility] [employer] 02-29-2024 21:44-0400 Systolic blood pressure 127 mm[Hg] Alejandro Lee DO Work Phone: [facility] [employer] 02-29-2024 21:15-0400 Body temperature 97.81 [degF] Alejandro Lee DO Work Phone: [facility] [employer] 12-21-2023 16:01-0400 Body height 177.8 cm Sarah Warren APRN.RETAIL MARKETING COORDINATOR Work Phone: [facility] 12-21-2023 16:01-0400 Body weight 83.92 kg Sarah Warren APRN.RETAIL MARKETING COORDINATOR Work Phone: [facility] 12-21-2023 16:01-0400 Diastolic blood pressure 77 mm[Hg] Sarah Warren APRN.RETAIL MARKETING COORDINATOR Work Phone: [facility] 12-21-2023 16:01-0400 Heart rate 74 /min Sarah Warren AUTOMOTIVE PAINTER.RETAIL MARKETING COORDINATOR Work Phone: [facility] 12-21-2023 16:01-0400 SaO2% (BldA) [Mass fraction] 100 % Sarah Warren AUTOMOTIVE PAINTER.RETAIL MARKETING COORDINATOR Work Phone: [facility] 12-21-2023 16:01-0400 Systolic blood pressure 131 mm[Hg] Sarah Warren AUTOMOTIVE PAINTER.RETAIL MARKETING COORDINATOR Work Phone: [facility] 12-02-2023 10:07-0500 Body height 172.72 cm MD Melonie Walsh Work Phone: [facility] 12-02-2023 10:07-0500 Body mass index (BMI) [Ratio] 28.7 kg/m2 MD Melonie Walsh Work Phone: [facility] 12-02-2023 10:07-0500 Body temperature 97.8 [degF] MD Melonie Walsh Work Phone: [facility] 12-02-2023 10:07-0500 Body weight 85.72 kg MD Melonie Walsh Work Phone: [facility] 12-02-2023 10:07-0500 Diastolic blood pressure 70 mm[Hg] MD Melonie Walsh Work Phone: [facility] 12-02-2023 10:07-0500 Heart rate 94 /min MD Melonie Walsh Work Phone: [facility] 12-02-2023 10:07-0500 Systolic blood pressure 119 mm[Hg] MD eMlonie Walsh Work Phone: [facility] 08-11-2023 15:35-0400 Body height 177.8 cm Anuja Oliva MD Work Phone: [facility] 08-11-2023 15:35-0400 Body weight 72.39 kg Anuja Oliva MD Work Phone: [facility] 08-11-2023 15:35-0400 Diastolic blood pressure 66 mm[Hg] Anuja Oliva MD Work Phone: [facility] 08-11-2023 15:35-0400 Heart rate 91 /min Anuja Oliva MD Work Phone: [facility] 08-11-2023 15:35-0400 SaO2% (BldA) [Mass fraction] 99 % Anuja Oliva MD Work Phone: [facility] 08-11-2023 15:35-0400 Systolic blood pressure 106 mm[Hg] Anuja Oliva MD Work Phone: [facility] 08-10-2023 14:23-0400 Body height 175.3 cm Jabier Shelley MD Work Phone: [facility] 08-10-2023 14:23-0400 Body weight 83.92 kg Jabier Shelley MD Work Phone: [facility] 08-10-2023 14:23-0400 Diastolic blood pressure 64 mm[Hg] Jabier Shelley MD Work Phone: [facility] 08-10-2023 14:23-0400 Heart rate 43 /min Jabier Shelley MD Work Phone: [facility] 08-10-2023 14:23-0400 SaO2% (BldA) [Mass fraction] 87 % Jabier Shelley MD Work Phone: [facility] 08-10-2023 14:23-0400 Systolic blood pressure 103 mm[Hg] Jabier Shelley MD Work Phone: [facility] 07-05-2023 10:46-0400 SaO2% (BldA) [Mass fraction] 99 % [facility] Comment on above: Order Comment: Specimen Type: ARTERIAL B LOOD SPECIMENOrdering Facility: [facility] Address: [address] [place] [id number] Performed By: #### A LLBG ####[facility] LABCLIA [id number] [address] [address] [place] 06-28-2023 10:27-0400 SaO2% (BldA) [Mass fraction] 99 % [facility] Comment on above: Order Comment: Specimen Type: ARTERIAL B LOOD SPECIMENOrdering Facility: [facility] Address: [address] [place], [place] [id number] Performed By: #### A LLBG ####[facility] LABCLIA [id number] [place] [id number] [place] 06-27-2023 10:17-0400 SaO2% (BldA) [Mass fraction] 98 % [facility] Comment on above: Order Comment: Specimen Type: ARTERIAL B LOOD SPECIMENOrdering Facility: [facility] Address: [address] [place] [address] Performed By: #### A LLBG ####[facility] LABCLIA [id number] [address] [place] 06-26-2023 21:43-0400 SaO2% (BldA) [Mass fraction] 100 % [facility] Comment on above: Order Comment: Specimen Type: ARTERIAL B LOOD SPECIMENOrdering Facility: [facility] Address: [address] [place], [place] [id number] Performed By: #### A LLBG ####[facility] LABCLIA [id number] [address] [place] 06-25-2023 14:35-0400 SaO2% (BldA) [Mass fraction] 99 % [facility] Comment on above: Order Comment: Specimen Type: ARTERIAL B LOOD SPECIMENOrdering Facility: [facility] Address: [address] [place], [place] [id number] Performed By: #### A LLBG ####[facility] LABCLIA [id number] [place] [id number] [place] [facility] 06-24-2023 13:58-0400 SaO2% (BldA) [Mass fraction] 96 % [facility] Comment on above: Order Comment: Specimen Type: ARTERIAL B LOOD SPECIMENOrdering Facility: [facility] Address: [address] [place], [place] [id number] Performed By: #### A LLBG ####[facility] LABIA [id number] [place] [id number] [place] 06-20-2023 21:37-0400 SaO2% (BldA) [Mass fraction] 99 % [facility] Comment on above: Order Comment: Specimen Type: ARTERIAL B LOOD SPECIMENOrdering Facility: [facility] Address: [address] [place] [address] Performed By: #### A LLBG ####[facility] LABIA [id number] [place] [id number] [facility] 06-20-2023 19:09-0400 SaO2% (BldA) [Mass fraction] 98 % [facility] Comment on above: Order Comment: Specimen Type: ARTERIAL B LOOD SPECIMENOrdering Facility: [facility] Address: [address] [place] [address] Performed By: #### A LLBG ####[facility]IA [id number] [place] [id number] [place] 06-17-2023 08:26-0400 Body height 175.3 cm Danielle Santiago RN Work Phone: [facility] 06-17-2023 08:26-0400 Body temperature 96.69 [degF] Danielle Santiago RN Work Phone: [facility] 06-17-2023 08:26-0400 Body weight 79.38 kg Danielle Santiago RN Work Phone: [facility] 06-17-2023 08:26-0400 Diastolic blood pressure 69 mm[Hg] Danielle Santiago RN Work Phone: [facility] 06-17-2023 08:26-0400 Heart rate 69 /min Danielle Santiago RN Work Phone: [facility] 06-17-2023 08:26-0400 Respiratory rate 18 /min Danielle Santiago RN Work Phone: [facility] 06-17-2023 08:26-0400 SaO2% (BldA) [Mass fraction] 99 % Danielle Santiago RN Work Phone: [facility] 06-17-2023 08:26-0400 Systolic blood pressure 112 mm[Hg] Danielle Santiago RN Work Phone: [facility] 06-03-2023 11:15-0400 Body height 172.72 cm Melonie Walsh Other [employer] Other 06-03-2023 11:15-0400 Body mass index (BMI) [Ratio] 27.97 kg/m2 Melonie Walsh Other [employer] Other 06-03-2023 11:15-0400 Body weight 83.46 kg Melonie Walsh Other [employer] Other 06-03-2023 11:15-0400 Diastolic blood pressure 75 mm[Hg] Melonie Walsh Other [employer] Other 06-03-2023 11:15-0400 Systolic blood pressure 120 mm[Hg] Melonie Walsh Other [employer] Other 05-24-2023 13:02-0400 Body height 177.8 cm Pacc 3 Work Phone: [facility] 05-24-2023 13:02-0400 Body temperature 97.5 [degF] Pacc 3 Work Phone: [facility] 05-24-2023 13:02-0400 Body weight 84.46 kg Pacc 3 Work Phone: [facility] 05-24-2023 13:02-0400 Diastolic blood pressure 79 mm[Hg] Pac 3 Work Phone: [facility] 05-24-2023 13:02-0400 Heart rate 65 /min Pac 3 Work Phone: [facility] 05-24-2023 13:02-0400 SaO2% (BldA) [Mass fraction] 98 % Pac 3 Work Phone: [facility] 05-24-2023 13:02-0400 Systolic blood pressure 135 mm[Hg] Pac 3 Work Phone: [facility] 05-24-2023 10:46-0400 Body height 177.8 cm Jabier Shelley MD Work Phone: [facility] 05-24-2023 10:46-0400 Body weight 81.65 kg Jabier Sehlley MD Work Phone: [facility] 05-24-2023 10:46-0400 Diastolic blood pressure 82 mm[Hg] Jabier Shelley MD Work Phone: [facility] 05-24-2023 10:46-0400 Heart rate 65 /min Jabier Shelley MD Work Phone: [facility] 05-24-2023 10:46-0400 SaO2% (BldA) [Mass fraction] 97 % Jabier Shelley MD Work Phone: [facility] 05-24-2023 10:46-0400 Systolic blood pressure 135 mm[Hg] Jabier Shelley MD Work Phone: [facility] 05-20-2023 13:25-0400 Body height 177.8 cm Mony Hodges PA-C Work Phone: [facility] 05-20-2023 13:25-0400 Body weight 81.65 kg Mony Hodges PA-C Work Phone: [facility] 05-20-2023 13:25-0400 Diastolic blood pressure 66 mm[Hg] Mony Hodges PA-C Work Phone: [facility] 05-20-2023 13:25-0400 Heart rate 69 /min Mony Hodges PA-C Work Phone: [facility] 05-20-2023 13:25-0400 SaO2% (BldA) [Mass fraction] 96 % Mony Hodges PA-C Work Phone: [facility] 05-20-2023 13:25-0400 Systolic blood pressure 116 mm[Hg] Mony Hodges PA-C Work Phone: [facility] 03-21-2023 15:00-0400 Body height 172.72 cm Melonie Walsh Other [employer] Other 03-21-2023 15:00-0400 Body mass index (BMI) [Ratio] 27.97 kg/m2 Melonie Walsh Other [employer] Other 03-21-2023 15:00-0400 Body weight 83.46 kg Melonie Walsh Other [facility] Other 03-21-2023 15:00-0400 Diastolic blood pressure 70 mm[Hg] Melonie Walsh Other [employer] Other 03-21-2023 15:00-0400 Systolic blood pressure 121 mm[Hg] Melonie Walsh Other [employer] Other 03-14-2023 22:59-0400 Heart rate 73 /min MD Melonie Walsh Work Phone: [facility] 03-14-2023 22:59-0400 Respiratory rate 16 /min MD Melonie Walsh Work Phone: [facility] 03-14-2023 22:59-0400 SaO2% (BldA) [Mass fraction] 96 % MD Melonie Walsh Work Phone: [facility] 03-14-2023 20:00-0400 Body temperature 98.2 [degF] MD Melonie Walsh Work Phone: [facility] 03-14-2023 20:00-0400 Diastolic blood pressure 60 mm[Hg] MD Melonie Walsh Work Phone: [facility] 03-14-2023 20:00-0400 Systolic blood pressure 108 mm[Hg] MD Melonie Walsh Work Phone: [facility] 03-14-2023 13:58-0400 Body height 177.8 cm MD Melonie Walsh Work Phone: [facility] 03-14-2023 05:33-0400 Body weight 76.2 kg MD Melonie Walsh Work Phone: [facility] 03-13-2023 15:30-0400 Diastolic blood pressure 67 mm[Hg] MD Melonie Walsh Work Phone: [facility] 03-13-2023 15:30-0400 Heart rate 65 /min MD Melonie Walsh Work Phone: [facility] 03-13-2023 15:30-0400 Respiratory rate 18 /min MD Melonie Walsh Work Phone: [facility] 03-13-2023 15:30-0400 SaO2% (BldA) [Mass fraction] 99 % MD Melonie Walsh Work Phone: [facility] 03-13-2023 15:30-0400 Systolic blood pressure 111 mm[Hg] MD Melonie Walsh Work Phone: [facility] 03-12-2023 07:30-0400 Body temperature 97.9 [degF] MD Melonie Walsh Work Phone: [facility] 03-11-2023 14:39-0400 Body height 177.8 cm MD Melonie Walsh Work Phone: [facility] 03-10-2023 17:29-0400 Body weight 79.37 kg MD Melonie Walsh Work Phone: [facility] 03-10-2023 14:50-0400 Diastolic blood pressure 101 mm[Hg] Alejandro Lee DO Work Phone: [employer] 03-10-2023 14:50-0400 Heart rate 104 /min Alejandro Lee DO Work Phone: [facility] [employer] 03-10-2023 14:50-0400 Respiratory rate 18 /min Alejandro Lee DO Work Phone: [facility] [employer] 03-10-2023 14:50-0400 SaO2% (BldA) [Mass fraction] 96 % Alejandro Lee DO Work Phone: [facility] [employer] 03-10-2023 14:50-0400 Systolic blood pressure 121 mm[Hg] Alejandro Lee DO Work Phone: [facility] [employer] 03-10-2023 10:16-0400 Body height 177.8 cm Alejandro Lee DO Work Phone: [facility] [employer] 03-10-2023 10:16-0400 Body mass index (BMI) [Ratio] 25.11 kg/m2 Alejandro Lee DO Work Phone: [facility] [employer] 03-10-2023 10:16-0400 Body weight 79.38 kg Alejandro Lee DO Work Phone: [facility] [employer] 02-08-2023 13:16-0400 Body weight 83.46 kg David Ruby MD Work Phone: [facility] 02-08-2023 13:16-0400 Diastolic blood pressure 70 mm[Hg] David Ruby MD Work Phone: [facility] 02-08-2023 13:16-0400 Heart rate 80 /min David Ruby MD Work Phone: [facility] 02-08-2023 13:16-0400 SaO2% (BldA) [Mass fraction] 100 % David Ruby MD Work Phone: [facility] 02-08-2023 13:16-0400 Systolic blood pressure 109 mm[Hg] David Ruby MD Work Phone: [facility] 02-08-2023 09:30-0400 Body height 177.8 cm Jabier Shelley MD Work Phone: [facility] 02-08-2023 09:30-0400 Body weight 83.46 kg Jabier Shelley MD Work Phone: [facility] 02-08-2023 09:30-0400 Diastolic blood pressure 70 mm[Hg] Jabier Shelley MD Work Phone: [facility] 02-08-2023 09:30-0400 Heart rate 80 /min Jabier Shelley MD Work Phone: [facility] 02-08-2023 09:30-0400 Respiratory rate 17 /min Jabier Shelley MD Work Phone: [facility] 02-08-2023 09:30-0400 SaO2% (BldA) [Mass fraction] 100 % Jabier Shelley MD Work Phone: [facility] 02-08-2023 09:30-0400 Systolic blood pressure 109 mm[Hg] Jabier Shelley MD Work Phone: [facility] 02-08-2023 07:50-0400 Body height 177.8 cm Pacc 9 Work Phone: [facility] 02-08-2023 07:50-0400 Body temperature 97.9 [degF] Pacc 9 Work Phone: [facility] 02-08-2023 07:50-0400 Body weight 83.51 kg Pacc 9 Work Phone: [facility] 02-08-2023 07:50-0400 Diastolic blood pressure 70 mm[Hg] Pacc 9 Work Phone: [facility] 02-08-2023 07:50-0400 Heart rate 80 /min Pacc 9 Work Phone: [facility] 02-08-2023 07:50-0400 SaO2% (BldA) [Mass fraction] 100 % Pacc 9 Work Phone: [facility] 02-08-2023 07:50-0400 Systolic blood pressure 109 mm[Hg] Pacc 9 Work Phone: [facility] 12-13-2022 15:09-0500 Body height 175.3 cm Raquel Trenkamp PA-C Work Phone: [facility] 12-13-2022 15:09-0500 Body weight 79.38 kg Raquel Trenkamp PA-C Work Phone: [facility] 12-13-2022 15:09-0500 Diastolic blood pressure 71 mm[Hg] Raquel Trenkamp PA-C Work Phone: [facility] 12-13-2022 15:09-0500 Heart rate 81 /min Raquel Trenkamp PA-C Work Phone: [facility] 12-13-2022 15:09-0500 Respiratory rate 16 /min Raquel Trenkamp PA-C Work Phone: [facility] 12-13-2022 15:09-0500 SaO2% (BldA) [Mass fraction] 96 % Raquel Trenkamp PA-C Work Phone: [facility] 12-13-2022 15:09-0500 Systolic blood pressure 122 mm[Hg] Raquel Trenkamp PA-C Work Phone: [facility] 11-15-2022 09:04-0500 Body weight 73.93 kg MD Melonie Walsh Work Phone: [facility] 11-15-2022 07:30-0500 Body temperature 97.9 [degF] MD Melonie Walsh Work Phone: [facility] 11-15-2022 07:30-0500 Diastolic blood pressure 78 mm[Hg] MD Melonie Walsh Work Phone: [facility] 11-15-2022 07:30-0500 Heart rate 95 /min MD Melonie Walsh Work Phone: [facility] 11-15-2022 07:30-0500 Respiratory rate 95 /min MD Melonie Walsh Work Phone: [facility] 11-15-2022 07:30-0500 SaO2% (BldA) [Mass fraction] 95 % MD Melonie Walsh Work Phone: [facility] 11-15-2022 07:30-0500 Systolic blood pressure 116 mm[Hg] MD Melonie Walsh Work Phone: [facility] 11-12-2022 12:51-0500 Body height 177.8 cm MD Melonie Walsh Work Phone: [facility] 12-30-2021 15:15-0400 Body height 177.8 cm Aixa Aly Other [employer] Other 12-30-2021 15:15-0400 Body mass index (BMI) [Ratio] 25.25 kg/m2 Aixa Aly Other [employer] Other 12-30-2021 15:15-0400 Body weight 79.83 kg Aixa Aly Other [employer] Other 12-30-2021 15:15-0400 Diastolic blood pressure 70 mm[Hg] Aixa Aly Other [employer] Other 12-30-2021 15:15-0400 Systolic blood pressure 119 mm[Hg] Aixa Aly Other [employer] Other 12-09-2021 13:19-0500 Body height 177.8 cm Melonie Walsh Work Phone: [facility]Marjorie 250 DO Work Phone: 12-09-2021 13:19-0500 Body mass index (BMI) [Ratio] 26.54 kg/m2 Melonie Walsh Work Phone: [facility]Hosmer 250 DO Work Phone: 12-09-2021 13:19-0500 Body surface area Derived from formula 2.02 m2 Melonie Walsh Work Phone: [facility] 250 DO Work Phone: 12-09-2021 13:19-0500 Body weight 83.92 kg Melonie Walsh Work Phone: [facility]ie 250 DO Work Phone: 12-09-2021 13:19-0500 Diastolic blood pressure 85 mm[Hg] Melonie Walsh Work Phone: [facility] 250 DO Work Phone: 12-09-2021 13:19-0500 Heart rate 84 /min Melonie Walsh Work Phone: [facility] 250 DO Work Phone: 12-09-2021 13:19-0500 Systolic blood pressure 137 mm[Hg] Melonie Walsh Work Phone: [facility] 250 DO Work Phone: 02-07-2021 12:16-0400 Body temperature 97.59 [degF] Jim Clements DO Work Phone: [employer] Work Phone: 02-07-2021 12:16-0400 Diastolic blood pressure 82 mm[Hg] Jim China DO Work Phone: [employer] Work Phone: 02-07-2021 12:16-0400 Heart rate 89 /min Jim Goldsteinbeck DO Work Phone: [employer] Work Phone: 02-07-2021 12:16-0400 Respiratory rate 16 /min Jim China DO Work Phone: [employer] Work Phone: 02-07-2021 12:16-0400 SaO2% (BldA) [Mass fraction] 98 % Jmi China DO Work Phone: [employer] [facility] Work Phone: 02-07-2021 12:16-0400 Systolic blood pressure 126 mm[Hg] Jim Goldsteinbeck DO Work Phone: [employer] [facility] Work Phone: 02-03-2021 03:21-0400 Body mass index (BMI) [Ratio] 25.57 kg/m2 Jim China DO Work Phone: [employer] Work Phone: 02-03-2021 03:21-0400 Body weight 80.83 kg Jim Goldsteinbeck DO Work Phone: [employer] Work Phone: 01-31-2021 22:51-0400 Body height 177.8 cm Jim China DO Work Phone: [employer] Work Phone: 01-31-2021 21:00-0400 Diastolic blood pressure 82 mm[Hg] David Neal MD Work Phone: [employer] Work Phone: 01-31-2021 21:00-0400 Heart rate 102 /min David Neal MD Work Phone: [employer] Work Phone: 01-31-2021 21:00-0400 Respiratory rate 24 /min David Neal MD Work Phone: [employer] Work Phone: 01-31-2021 21:00-0400 SaO2% (BldA) [Mass fraction] 100 % David Neal MD Work Phone: [employer] Work Phone: 7 21:00-0400 Systolic blood pressure 142 mm[Hg] David Neal MD Work Phone: [employer] Work Phone: 01-31-2021 10:46-0400 Body mass index (BMI) [Ratio] 25.11 kg/m2 David Neal MD Work Phone: [employer] Work Phone: 01-31-2021 10:46-0400 Body temperature 98.71 [degF] David Neal MD Work Phone: [employer] Work Phone: 01-31-2021 10:46-0400 Body weight 79.38 kg David Neal MD Work Phone: [employer] Work Phone: 01-09-2021 09:29-0400 Pulse Oximetry 99 % [employer] Work Phone: 01-09-2021 09:29-0400 Respiratory Rate 21 /min [employer] Work Phone: 01-09-2021 08:22-0400 Body Temperature 97.9 [degF] [employer] Work Phone: 01-09-2021 08:22-0400 BP Diastolic 80 mm[Hg] [employer] Work Phone: 01-09-2021 08:22-0400 BP Systolic 136 mm[Hg] [employer] Work Phone: 01-09-2021 08:22-0400 Pulse (Heart Rate) 97 /min [employer] Work Phone: 01-09-2021 05:00-0400 BMI (Body Mass Index) 22.71 kg/m2 [facility] Work Phone: 01-09-2021 05:00-0400 Body weight 71.8 kg Efrain [employer]ared[employer] Phone: 01-08-2021 13:57-0400 Height 177.8 cm [employer]rain [email or web address] Phone: 12-27-2020 00:55-0400 Respiratory rate NOT REPORTED [facility] Comment on above: Performed By: #### AANC #### [facility] [address] [place] [address] Registered Dietetic Technician: Simeon Abraham MD 12-26-2020 23:05-0400 Respiratory rate NOT REPORTED [facility] [email or web address] Phone: 12-20-2020 22:30-0500 Respiratory rate NOT REPORTED [facility] Comment on above: Performed By: #### CDP, BMP, MG, GREY ### # [facility] [address] [place] [address] Registered Dietetic Technician: Simeon Abraham MD 12-20-2020 21:00-0500 Respiratory rate NOT REPORTED [facility] [employer] Phone: 09-27-2019 07:43-0500 Body temperature 98.01 [degF] Pablo Mae MD [employer] Phone: 09-27-2019 07:43-0500 Diastolic blood pressure 87 mm[Hg] Pablo Mae MD [employer] Phone: 09-27-2019 07:43-0500 Heart rate 92 /min Pablo Mae MD [employer] Phone: 09-27-2019 07:43-0500 Respiratory rate 25 /min Pablo Mae MD [employer] Phone: 09-27-2019 07:43-0500 SaO2% (BldA) [Mass fraction] 95 % Pablo Mae MD [employer] Work Phone: 09-27-2019 07:43-0500 Systolic blood pressure 142 mm[Hg] Pablo Mae MD [employer] Phone: 09-26-2019 08:00-0500 Body height 177.8 cm Pablo Mae MD [employer] Work Phone: 09-26-2019 08:00-0500 Body mass index (BMI) [Ratio] 24.39 kg/m2 Pablo Mae MD [employer] Work Phone: 09-26-2019 08:00-0500 Body weight 77.11 kg Pablo Mae MD [employer] Work Phone: 09-25-2019 19:30-0500 Diastolic blood pressure 83 mm[Hg] David Neal MD Work Phone: [employer] Work Phone: 09-25-2019 19:30-0500 Heart rate 102 /min David Neal MD Work Phone: [employer] Work Phone: 09-25-2019 19:30-0500 Respiratory rate 18 /min David Neal MD Work Phone: [employer] Work Phone: 09-25-2019 19:30-0500 SaO2% (BldA) [Mass fraction] 99 % David Neal MD Work Phone: [employer] Work Phone: 09-25-2019 19:30-0500 Systolic blood pressure 130 mm[Hg] David Neal MD Work Phone: [employer] Phone: 09-25-2019 16:23-0500 Body mass index (BMI) [Ratio] 24.39 kg/m2 David Neal MD Work Phone: [employer] Phone: 09-25-2019 16:23-0500 Body temperature 96.3 [degF] David Neal MD Work Phone: [employer] Work Phone: 09-25-2019 16:23-0500 Body weight 77.11 kg David Neal MD Work Phone: [employer] Work Phone: 07-27-2019 23:10-0400 BP Diastolic 81 mm[Hg] [place] 07-27-2019 23:10-0400 BP Systolic 123 mm[Hg] [facility] , [place] 07-27-2019 23:10-0400 Pulse (Heart Rate) 73 /min [place], [place] 07-27-2019 18:28-0400 Body Temperature 97.7 [degF] [facility] [place] 07-27-2019 18:28-0400 Pulse Oximetry 95 % [facility] [place] 07-27-2019 18:28-0400 Respiratory Rate 16 /min [facility] [place] 06-22-2019 12:59-0400 BP Diastolic 84 mm[Hg] [facility] [place] 06-22-2019 12:59-0400 BP Systolic 118 mm[Hg] [facility] [place] 06-22-2019 09:47-0400 BMI (Body Mass Index) 23.68 kg/m2 [facility] [employer], [place] 06-22-2019 09:47-0400 Body Temperature 98.2 [degF] [facility] [place] , [place] 06-22-2019 09:47-0400 Body weight 74.84 kg [facility] [place] 06-22-2019 09:47-0400 Pulse (Heart Rate) 74 /min [facility] [place] 06-22-2019 09:47-0400 Pulse Oximetry 94 % [facility] , [place] 06-22-2019 09:47-0400 Respiratory Rate 16 /min Russell Quinonez [facility] [place] Encounters Encounter Date Encounter Type Care Provider Facility Start: 03-07-2024 End: 03-07-2024 ambulatory [facility] Work Phone: Start: 03-07-2024 End: 03-07-2024 Patient encounter procedure [facility] Work Phone: Start: 02-29-2024 End: 03-01-2024 Emergency department patient visit MELONIE WALSH [facility] Start: 02-29-2024 End: 02-29-2024 Emergency department patient visit Alejandro Lee DO Work Phone: [facility] ED Comment on above: Accidental drug over dose, initial encounter (Primary Dx) Start: 01-22-2024 Refill Anuja durán MD Work Phone: Vascular Medicine Comment on above: Refill Request Start: 01-02-2024 End: 01-03-2024 ambulatory VALENTINE JULIANNA JAWED [facility] Start: 01-02-2024 End: 01-02-2024 Subsequent hospital visit by physician Melonie Walsh MD Work Phone: [facility] Start: 12-28-2023 ambulatory Antonia Kendall MD Work Phone: Neurology Comment on above: [place] Start: 12-28-2023 Telephone encounter Antonia Kendall MD Work Phone: Neurology Comment on above: Medication Problem ( thinks Lacosamide script is wrong. 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, intractable (HCC) (Primary Dx); S/P brain surgery Start: 12-21-2023 End: 12-22-2023 ambulatory [facility] Facility:[facility] Start: 12-21-2023 End: 12-21-2023 ambulatory [facility] Facility:[facility] Start: 12-21-2023 End: 12-21-2023 Subsequent hospital visit by physician Mri 6 [employer] Main Q (I-Stat/1.5t/3t) Work Phone: MRI Q Comment on above: Focal epilepsy with impairment of consciousness, intractable (HCC) [G40.219] Start: 12-15-2023 End: 12-15-2023 ambulatory ANUJA OLIVA Facility:[facility] Start: 12-15-2023 End: 12-15-2023 Anticoagulant drug monitoring Anuja Oliva MD Work Phone: Vascular Medicine Comment on above: S/P IVC filter (Prim erick Dx); 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); Anticoagulated Start: 12-15-2023 End: 12-15-2023 Telemedicine consultation with patient Anuja Oliva MD Work Phone: [facility] Start: 12-08-2023 Telephone encounter Jabier Shelley MD Work Phone: Neurology Comment on above: Patient Update ([place] [employer] vision ) Start: 12-08-2023 Non-patient / [facility]-visit [facility] Work Phone: Start: 12-06-2023 End: 12-07-2023 ambulatory [facility] Start: 12-02-2023 End: 12-02-2023 ambulatory MD Melonie Walsh Work Phone: [facility] Work Phone: Start: 12-02-2023 End: 12-02-2023 Patient encounter procedure MD Melonie Walsh Work Phone: [facility] Work Phone: Start: 12-01-2023 ambulatory Buster Tejada Facility:[facility] Start: 11-23-2023 Telephone encounter Antonia Kendall MD Work Phone: Neurology Comment on above: Insurance Authorizat ion (lacosamide) Start: 11-14-2023 ambulatory ANUJA OLIVA Facili ty:[facility] Start: 09-14-2023 Patient encounter procedure MD Melonie Walsh Work Phone: [facility]- Start: 09-13-2023 (Televisit) Televisit Melonie Walsh [facility] Start: 09-13-2023 End: 09-13-2023 ambulatory Melonie Walsh Other [employer] Other Start: 09-05-2023 Registered Recurring MD Melonie Walsh Work Phone: [facility] Start: 08-24-2023 Telephone encounter Melonie Walsh [facility] Start: 08-24-2023 End: 08-25-2023 ambulatory MELONIE WALSH [facility] [employer] Other Start: 08-22-2023 Telephone encounter Anuja parker MD Work Phone: Vascular Medicine Comment on above: Pt Lovenox dosing qu estion Start: 08-11-2023 End: 08-12-2023 ambulatory ANUJA OLIVA Facility:[facility] Start: 08-11-2023 End: 08-11-2023 Patient encounter procedure Anuja Oliva MD Work Phone: Vascular Medicine Comment on above: Recurrent acute deep vein thrombosis (DVT) of both lower extremities (HCC) (Primary Dx); Anticoagulation management encounter; Presence of IVC filter Start: 08-10-2023 End: 08-11-2023 ambulatory ROSIE TIM Facility:[facility] Start: 08-10-2023 End: 08-11-2023 ambulatory JABIER SHELLEY Facility:[facility] Start: 08-10-2023 End: 08-10-2023 Patient encounter procedure Rosie Laceylin DO Work Phone: Neurology Comment on above: Focal epilepsy with impairment of consciousness, intractable (HCC) (Primary Dx) Start: 08-03-2023 ambulatory Jabier berger MD Work Phone: Neurosurgery Comment on above: FMLA Extension Paper work Vandana Stringer [email or web address] Start: 07-27-2023 ambulatory ANUJA Phillips ty:[facility] Start: 07-27-2023 End: 07-27-2023 ambulatory OMAR TURPIN Facility:[facility] Start: 07-20-2023 End: 08-10-2023 ambulatory FARRAH VICKERS Facility:[facility] Start: 07-20-2023 End: 08-10-2023 Subsequent hospital visit by physician Farrah Vickers DO Work Phone: [facility] Start: 07-20-2023 Telephone encounter Jabier Shelley MD Work Phone: Neurology Comment on above: Other (FMLA) Start: 07-15-2023 End: 07-15-2023 ambulatory SERA VILLANUEVA Facility:[facility] Start: 07-05-2023 End: 07-05-2023 Evaluation and management of inpatient JABIER SHELLEY Facility:[facility] Start: 06-25-2023 End: 06-25-2023 Evaluation and management of inpatient JABIER SHELLEY Facility:[facility] Start: 06-20-2023 Encounter for other preprocedural examination JABIER SHELLEY [facility] Start: 06-20-2023 End: 07-20-2023 Evaluation and management of inpatient JABIER SHELLEY Facility:[facility] Start: 06-17-2023 End: 06-17-2023 ambulatory MOUNIKA TOMAS Facility:[facility] Start: 06-17-2023 End: 06-17-2023 Patient encounter procedure Mounika Tomas DPM Work Phone: Orthopaedics Comment on above: Traumatic arthritis of ankle, right (Primary Dx) Start: 06-17-2023 End: 06-17-2023 ambulatory MONY HODGES [facility] [facility] Start: 06-17-2023 End: 06-18-2023 ambulatory MONY SAPPHIRE Facility:[facility] Start: 06-17-2023 End: 06-17-2023 Subsequent hospital visit by physician Mri 3 Radio Main Q (I-Stat/1.5t/3t) Work Phone: MRI Q Comment on above: Encounter for other preprocedural examination [Z01.818] Start: 06-17-2023 End: 06-17-2023 Nursing evaluation of patient and report Danielle Santiago RN Work Phone: Neurosurgery Comment on above: Focal epilepsy with impairment of consciousness, intractable (HCC) (Primary Dx) Start: 06-08-2023 End: 06-09-2023 ambulatory JABIER SHELLEY Facility:[facility] Start: 06-08-2023 End: 06-08-2023 Patient encounter procedure Jabier Shelley MD Work Phone: Neurosurgery Comment on above: Intractable epilepsy with status epilepticus, unspecified epilepsy type (HCC) (Primary Dx) Start: 06-03-2023 End: 06-03-2023 ambulatory Melonie Walsh Other [employer] Other Start: 06-03-2023 Office outpatient vi sit 15 minutes Melonie aWlsh [facility] Start: 06-02-2023 ambulatory Anuja durán MD Work Phone: [facility] Start: 06-02-2023 Follow-up encounter Anuja parker MD Work Phone: Vascular Medicine Comment on above: Follow Up Appointmen t Start: 05-27-2023 ambulatory Jabier berger MD Work Phone: Neurosurgery Comment on above: Infection Site Upfat e Start: 05-26-2023 ambulatory Jabier berger MD Work Phone: Neurosurgery Comment on above: FMLA Paperwork Start: 05-26-2023 Telephone encounter Jabier Shelley MD Work Phone: Neurology Comment on above: Forms (FMLA) Start: 05-24-2023 End: 05-25-2023 ambulatory MONY HODGES Facility:[facility] Start: 05-24-2023 End: 05-24-2023 Patient encounter status Mri (I-Stat/1.5t/3t) Work Phone: [facility] Start: 05-24-2023 End: 05-24-2023 Subsequent hospital visit by physician Mri 4 Radio Main Q (I-Stat/1.5t/3t) Work Phone: MRI Q Start: 05-24-2023 End: 05-24-2023 ambulatory MONY HODGES Facility:[facility] Start: 05-24-2023 Telephone encounter Jabier Shelley MD Work Phone: Neurosurgery Start: 05-24-2023 End: 05-24-2023 Admission to [facility] Pacc Main 3 Work Phone: [facility] Start: 05-24-2023 End: 05-25-2023 ambulatory Pacc Main 3 Work Phone: Pre Anesthesia Comment on above: Encounter for other preprocedural examination (Primary Dx); Partial epilepsy with impairment of consciousness, intractable (HCC); Hypertension, unspecified type; Hypothyroidism, unspecified type; SADI (obstructive sleep apnea); 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); Kidney replaced by transplant; detention (current) use of systemic steroids; Acute deep vein thrombosis (DVT) of proximal vein of left lower extremity (HCC); Intestinal obstruction, unspecified cause, unspecified whether partial or complete (HCC) Start: 05-24-2023 End: 05-24-2023 Patient encounter procedure Jabier Shelley MD Work Phone: Neurosurgery Comment on above: Encounter for other preprocedural examination (Primary Dx); Focal epilepsy with impairment of consciousness, intractable (HCC) Start: 05-24-2023 End: 05-24-2023 Patient encounter status Pacc Main 3 Work Phone: [facility] Work Phone: Start: 05-20-2023 End: 05-21-2023 ambulatory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 Thromboplastin time partial plasma/whole blood Shital Fry [employer] Work Phone: Start: 01-31-2021 Ct thorax w/contrast material Shital ozuna [employer] Work Phone: Start: 01-31-2021 Dup-scan xtr veins unilateral/limited study Shital Lisandra PA-[employer] Work Phone: Start: 01-31-2021 C-reactive protein Shital Fry PA-C Work Phone: Start: 01-31-2021 Comprehensive metabolic panel Shital ozuna PA-C Work Phone: Start: 01-22-2021 Radiologic exam chest 2 views Gail L Sc helkun 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 Work Phone: Start: 01-09-2021 Radiologic exam chest single view Gail L Schelkun Work Phone: Start: 01-08-2021 Radiologic exam chest single view Gonzalo Casey Work Phone: Start: 01-08-2021 Radiologic exam chest single view Gail L Schelkun Work Phone: Start: 01-07-2021 Blood count complete auto&auto difrntl wbc Brayan Roberts Work Phone: Start: 01-07-2021 Radiologic exam chest single view Gail L Schelkun Work Phone: Start: 01-06-2021 Radiologic exam chest single view Gail L Schelkun Work Phone: Start: 01-06-2021 Blood count complete auto&auto difrntl wbc Gail L Schelkun Work Phone: Start: 01-06-2021 Comprehensive metabolic panel Gail L Sc helkun Work Phone: Start: 01-05-2021 Radiologic exam chest single view Lisandro J Borsody Work Phone: Start: 01-05-2021 Culture bacterial quanttative colony count urine Lisandro J Borsody Work Phone: Start: 01-05-2021 Cul bact xcpt urine blood/stool aerobic isol Lisandro J Borsody Work Phone: Start: 01-05-2021 Cul prsmptv pthgnc organism scrn w/colony estimj Lisandro J Borsody Work Phone: Start: 01-05-2021 Culture tubercle/oth acid-fast bacilli any isol Lisandro J Borsody Work Phone: Start: 01-05-2021 ARTERIAL BLOOD GAS, POC [facility] Work Phone: Start: 01-05-2021 Blood count hemoglobin [facility] Work Phone: Start: 01-05-2021 CALCIUM, IONIC (POC) irvin Carballo [facility] Work Phone: Start: 01-05-2021 Gluc bld gluc mntr dev cleared fda spec home use Jaleel Carballo [facility] Work Phone: Start: 01-05-2021 Potassium [Moles/Vol] [facility] Work Phone: Start: 01-05-2021 End: 01-05-2021 THORACOSCOPY Lisandro Lamb Work Phone: Start: 01-05-2021 Radiologic exam chest single view Dgwilfrid Andre Work Phone: Start: 01-05-2021 Assay of magnesium Lisandro Lamb Work Phone: Start: 01-05-2021 Basic metabolic panel calcium total Lisandro Lamb Work Phone: Start: 01-05-2021 Blood count complete automated Lisandro Lamb Work Phone: Start: 01-05-2021 Prothrombin time Lisandro Lamb Work Phone: Start: 01-04-2021 Radiologic exam chest single view Abhishek Mckeon Work Phone: Start: 01-04-2021 Ct thorax w/o contrast material Gonzalo Casey Work Phone: Start: 01-04-2021 Radiologic exam chest single view Dg Andre Work Phone: Start: 01-03-2021 Radiologic exam chest single view Dg Andre Work Phone: Start: 01-02-2021 Radiologic exam chest single view Dg Andre Work Phone: Start: 01-02-2021 Radiologic exam chest single view Gonzalo Casey Work Phone: Start: 01-02-2021 Radiologic exam chest single view Dg Andre Work Phone: Start: 01-01-2021 Radiologic exam chest single view Dg Andre Work Phone: Start: 12-31-2020 Ct thorax w/o contrast material Brayan Prettyett Work Phone: Start: 12-31-2020 Radiologic exam chest single view E Carlton Byrd Work Phone: Start: 12-30-2020 Radiologic exam chest single view Jeff Michell Luna Work Phone: Start: 12-30-2020 Radiologic exam chest single view E Carlton Byrd Work Phone: Start: 12-30-2020 Basic metabolic panel calcium total E Carlton Byrd Work Phone: Start: 12-30-2020 Blood count complete auto&auto difrntl wbc E Carlton Byrd Work Phone: Start: 12-30-2020 IMMATURE PLATELET FRACTION E Carlton Byrd Work Phone: Start: 12-29-2020 Radiologic exam chest single view E Carlton Byrd Work Phone: Start: 12-29-2020 BASIC METABOLIC PANEL W/ REFLEX TO MG FOR LOW K Jeff Michell Jeremy Work Phone: Start: 12-29-2020 Radiologic exam chest single view Max Fletcher Frances Work Phone: Start: 12-28-2020 Radiologic exam chest single view Max Daniels Work Phone: Start: 12-28-2020 Antibody screen Efrain Perdomo Start: 12-27-2020 Glucose blood reagent strip Jaleel Stephen Work Phone: Start: 12-27-2020 CULTURE, BLOOD 1 Craig Hubbard Work Phone: Start: 12-27-2020 LACTATE, SEPSIS Craig Hubbard Work Phone: Start: 12-27-2020 Radiologic exam chest single view Max Daniels Work Phone: Start: 12-26-2020 Assay of magnesium Keaton Bar Work Phone: Start: 12-26-2020 Assay of phosphorus inorganic Keaton Bakari lewis Work Phone: Start: 12-26-2020 Basic metabolic panel calcium total Keaton Bar Work Phone: Start: 12-26-2020 Blood gases any combination ph pco2 po2 co2 hco3 Keaton Bar Work Phone: Start: 12-26-2020 Calcium ionized Keaton Bar Work Phone: Start: 12-26-2020 Radiologic exam abdomen 1 view Keaton Bar Work Phone: Start: 12-26-2020 Ecg routine ecg w/least 12 lds i&r only Keaton Yosvany Work Phone: Start: 12-26-2020 EKG REPORT Hpf Scanning Start: 12-26-2020 Radiologic exam chest single view Brayan Roberts Work Phone: Start: 12-26-2020 Blood count hemoglobin Porsha L Geovany bullock Work Phone: Start: 12-26-2020 Radex ankle complete minimum 3 views Gerardo Liang Work Phone: Start: 12-26-2020 Radiologic exam chest single view Brayan Roberts Work Phone: Start: 12-26-2020 Fluoroscopy during operation Carly juarez Work Phone: Start: 12-26-2020 End: 12-26-2020 Open treatment fracture distal tibia only Carly Sanchez Work Phone: Start: 12-26-2020 Basic metabolic panel calcium total Porsha L Westhoven Work Phone: Start: 12-26-2020 Blood count complete automated Porsha Silva Work Phone: Start: 12-25-2020 Radiologic exam chest single view Yessi Titus Work Phone: Start: 12-24-2020 BLOOD BANK SPECIMEN [facility] Work Phone: Start: 12-24-2020 Blood typing serologic abo Keaton W Brianne ton Work Phone: Start: 12-24-2020 Radiologic exam chest single view Yessi Titus Work Phone: Start: 12-24-2020 Assay of magnesium Keaton Bar Work Phone: Start: 12-24-2020 Assay of phosphorus inorganic Keaton Pa tterson Work Phone: Start: 12-24-2020 Basic metabolic panel calcium total Keaton Bar Work Phone: Start: 12-24-2020 Blood count complete auto&auto difrntl wbc Keaton Bar Work Phone: Start: 12-23-2020 Glucose blood reagent strip [facility] Work Phone: Start: 12-23-2020 Radiologic exam chest single view Yessi Titus Work Phone: Start: 12-23-2020 Assay of magnesium Hubert E Lightfoo t Work Phone: Start: 12-23-2020 Basic metabolic panel calcium total Hubert E Jonathon Work Phone: Start: 12-23-2020 Blood count complete auto&auto difrntl wbc Hubert E Jonathon Work Phone: Start: 12-22-2020 EXTUBATION Hubert E Lightfoo t Work Phone: Start: 12-22-2020 ARTERIAL BLOOD GAS, POC irvin Sandovaloralia [facility] Work Phone: Start: 12-22-2020 LACTIC ACID,POINT OF CARE [facility]el [facility] Work Phone: Start: 12-22-2020 ADVANCE ETT Jeff Luna Work Phone: Start: 12-22-2020 Ct lower extremity w/o contrast material Moshe Degrootua Work Phone: Start: 12-22-2020 Radiologic exam chest single view Yessi Titus Work Phone: Start: 12-22-2020 ARTERIAL BLOOD GAS, POC [facility] Work Phone: Start: 12-22-2020 LACTIC ACID,POINT OF CARE Jaleel rondon [facility] Work Phone: Start: 12-22-2020 Assay of magnesium Keaton Bar Work Phone: Start: 12-22-2020 Assay of phosphorus inorganic Keaton Bakari joshua Work Phone: Start: 12-22-2020 Basic metabolic panel calcium total Keaton Bar Work Phone: Start: 12-22-2020 Blood count complete auto&auto difrntl wbc Keaton Bar Work Phone: Start: 12-21-2020 Radex hip unilateral with pelvis 2-3 views Jono Pierce Burks Work Phone: Start: 12-21-2020 Radiologic exam abdomen 1 view Keaton Negron Work Phone: Start: 12-21-2020 Radiologic examination femur minimum 2 views Jono Z Burks Work Phone: Start: 12-21-2020 Assay of magnesium Porsha L Westhoven Work Phone: Start: 12-21-2020 Assay of phosphorus inorganic Porsha L Westhoven Work Phone: Start: 12-21-2020 Blood count hemoglobin Porsha L Geovany en Work Phone: Start: 12-21-2020 ARTERIAL BLOOD GAS, POC Jaleel Stephen Work Phone: Start: 12-21-2020 Gluc bld gluc mntr dev cleared fda spec home use Jaleel Stephen Work Phone: Start: 12-21-2020 LACTIC ACID,POINT OF CARE Jaleel Stephen Work Phone: Start: 12-21-2020 Radex ankle complete minimum 3 views Moshe G Andre Work Phone: Start: 12-21-2020 Radex shoulder complete minimum 2 views Moshe G Andre Work Phone: Start: 12-21-2020 Radex wrist complete minimum 3 views Moshe G Andre Work Phone: Start: 12-21-2020 Radiologic exam chest single view Keaton Negron Work Phone: Start: 12-21-2020 Fluoroscopy during operation Nupur Tabor Work Phone: Start: 12-21-2020 End: 12-21-2020 ANKLE EXTERNAL FIXATOR APPLICATION Nupur Tabor Work Phone: Start: 12-21-2020 End: 12-21-2020 WRIST CLOSED REDUCTION PINNING Nupur Tabor Work Phone: Start: 12-21-2020 BASIC METABOLIC PANEL W/ REFLEX TO MG FOR LOW K Brayan Roberts Work Phone: Start: 12-21-2020 Blood count complete auto&auto difrntl wbc Brayan Roberts Work Phone: Start: 12-21-2020 Radex ankle complete minimum 3 views Paul A Falbo Work Phone: Start: 12-21-2020 Radex wrist complete minimum 3 views Paul A Falbo Work Phone: Start: 12-21-2020 Radiologic exam chest single view Brayan Roberts Work Phone: Start: 12-20-2020 Speech and language therapy regime Moshe G Andre Work Phone: Start: 12-20-2020 Radex ankle complete minimum 3 views Brayan Roberts Work Phone: Start: 12-20-2020 Radex wrist complete minimum 3 views Brayan Roberts Work Phone: Start: 12-20-2020 Radiologic examination tibia & fibula 2 views Hubert Helga Jonathon Work Phone: Start: 12-20-2020 Antibody screen Efrain Perdomo Start: 12-20-2020 Ct thorax w/contrast material Brayan gallagher Work Phone: Start: 12-20-2020 CT LUMBAR SPINE TRAUMA RECONSTRUCTION Brayan Roberts Work Phone: Start: 12-20-2020 CT THORACIC SPINE TRAUMA RECONSTRUCTION Brayan Roberts Work Phone: Start: 12-20-2020 Ct cervical spine w/o contrast material Brayan Roberts Work Phone: Start: 12-20-2020 Ct head/brain w/o contrast material Brayan Roberts Work Phone: Start: 12-20-2020 Blood typing serologic abo Efrain Narayanan uss Work Phone: Start: 12-20-2020 25 hydroxy includes fractions if performed Efrain Perdomo Work Phone: Start: 12-20-2020 TRAUMA PANEL Efrain Perdomo Work Phone: Start: 12-20-2020 Radiologic exam chest single view Brayan Roberts Work Phone: Start: 12-20-2020 COVID-19, RAPID Efrain Perdomo Work Phone: Start: 11-26-2020 Blood count complete auto&auto difrntl wbc Julia Kwon Work Phone: Start: 11-26-2020 Renal function panel Julia Kwon Work Phone: Start: 11-05-2020 Blood count complete auto&auto difrntl wbc Julia Kwon Work Phone: Start: 11-05-2020 Renal function panel Julia Kwon Work Phone: Start: 09-26-2020 COVID-19 Historical Provider Start: 09-18-2020 Blood count complete auto&auto difrntl wbc Julia Kwon Work Phone: Start: 09-18-2020 Renal function panel Julia Kwon Work Phone: Start: 08-07-2020 Assay of phosphorus inorganic Julia Kwon Work Phone: Start: 08-07-2020 25 hydroxy includes fractions if performed David Neal Work Phone: Start: 08-07-2020 Assay of thyroid stimulating hormone tsh David Neal Work Phone: Start: 08-07-2020 Blood count complete auto&auto difrntl wbc David Neal Work Phone: Start: 08-07-2020 Comprehensive metabolic panel David Garica Work Phone: Start: 07-03-2020 Blood count complete auto&auto difrntl wbc Julia Kwon Work Phone: Start: 07-03-2020 Renal function panel Julia Kwon Work Phone: Start: 06-03-2020 Blood count complete auto&auto difrntl wbc Julia Kwon Work Phone: Start: 06-03-2020 Renal function panel Julia Kwon Work Phone: Start: 03-31-2020 [object Object] David Neal Comment on above: The [place] ECLIA assay is used. Results obtained with different assay methods cannot be used interchangeably. Start: 03-31-2020 25 hydroxy includes fractions if performed David Neal Work Phone: Start: 03-31-2020 Assay of free thyroxine David Neal Work Phone: Start: 03-31-2020 Assay of prostate specific antigen complexed David Neal Work Phone: Start: 03-31-2020 Assay of thyroid stimulating hormone tsh David Neal Work Phone: Start: 03-31-2020 Blood count complete auto&auto difrntl wbc David Neal Work Phone: Start: 03-31-2020 Comprehensive metabolic panel David Garcia Work Phone: Start: 03-31-2020 Lipid panel David Neal Work Phone: Start: 03-04-2020 Assay of magnesium Jluia Kwon Work Phone: Start: 03-04-2020 Blood count complete auto&auto difrntl wbc Julia Kwon Work Phone: Start: 03-04-2020 Creatinine other source Julia Kwon Work Phone: Start: 03-04-2020 Hepatic function panel Julia Kwon Work Phone: Start: 03-04-2020 Protein total xcpt refractometry urine Julia Kwon Work Phone: Start: 03-04-2020 Renal function panel Julia Kwon Work Phone: Start: 03-04-2020 Urinls dip stick/tablet reagnt non-auto micrscpy Julia Kwon Work Phone: Start: 01-28-2020 Blood count complete auto&auto difrntl wbc Julia Kwon Work Phone: Start: 01-28-2020 Renal function panel Julia Kwon Work Phone: Start: 12-27-2019 Blood count complete auto&auto difrntl wbc Julia Kwon Work Phone: Start: 12-27-2019 Renal function panel Julia Kwon Work Phone: Start: 12-03-2019 Blood count complete auto&auto difrntl wbc Julia Kwon Work Phone: Start: 12-03-2019 Renal function panel Julia Kwon Work Phone: Start: 11-12-2019 Radex spine thoracic 3 views David Neal Work Phone: Start: 11-12-2019 Radex ribs bilateral 3 views David Neal Work Phone: Start: 11-12-2019 Radex spine lumbosacral 2/3 views David Neal Work Phone: Start: 11-12-2019 Radex facial bones complete minimum 3 views David Neal Work Phone: Start: 11-12-2019 Radex spine cervical 4 or 5 views David Neal Work Phone: Start: 10-24-2019 Renal function panel Julia Kwon Work Phone: Start: 09-27-2019 Mri brain brain stem w/o w/contrast material Amado Reyes MD Work Phone: Start: 09-27-2019 Basic metabolic panel calcium total José Miguel Grubbs DO Work Phone: Start: 09-27-2019 Drug screen quantitative tacrolimus Chano Lawrence MD Work Phone: Start: 09-27-2019 Urnls dip stick/tablet reagent auto microscopy Milo Liang MD Work Phone: Start: 09-26-2019 Electroencephalogram w/rec awake&drowsy Amado Reyes MD Work Phone: Start: 09-26-2019 Creatine kinase total Danny Dominguez O Work Phone: Start: 09-26-2019 Radiologic examination knee 1/2 views Porsha Silva 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 Work Phone: Start: 09-26-2019 BASIC METABOLIC PANEL W/ REFLEX TO MG FOR LOW K Caleb Rutherford MD Work Phone: Start: 09-26-2019 Creatine kinase total Caleb Rutherford MD Work Phone: Start: 09-26-2019 Drug screen class list a Pablo Mae MD Start: 09-26-2019 Urinalysis microscopic only Pablo khan MD Start: 09-26-2019 Urnls dip stick/tablet rgnt auto w/o microscopy Pablo Mae MD Start: 09-25-2019 Speech and language therapy regime Caleb Rutherford MD Work Phone: Start: 09-25-2019 Antibody screen Pablo Mae MD Start: 09-25-2019 Radiologic exam chest single view Brayan Roberts DO Work Phone: Start: 09-25-2019 Assay of amylase David Neal MD Work Phone: Start: 09-25-2019 End: 09-25-2019 Hepatic function panel David Neal MD Work Phone: Start: 09-25-2019 TEG, RAPID CITRATED David Neal MD Work Phone: Start: 09-25-2019 TRAUMA PANEL David Neal MD Work Phone: Start: 09-25-2019 TROP/MYOGLOBIN David Neal MD Work Phone: Start: 09-25-2019 End: 09-25-2019 Ct thoracic spine w/o contrast material Tuan A Hammuda PA Work Phone: Start: 09-25-2019 Assay of lactate Tuan A Hammuda PA Work Phone: Start: 09-25-2019 Radex hip unilateral with pelvis 2-3 views Tuan A Hammuda PA Work Phone: Start: 09-25-2019 Ct thorax w/o contrast material Tuan A Hammuda PA Work Phone: Start: 09-25-2019 Ct cervical spine w/o contrast material Tuan A Hammuda PA Work Phone: Start: 09-25-2019 End: 09-25-2019 Ct head/brain w/o contrast material Tuan A Hammuda PA Work Phone: Start: 09-25-2019 Ecg routine ecg w/least 12 lds w/i&r Tuan A Hammuda PA Work Phone: Start: 09-25-2019 Basic metabolic panel calcium total Tuan Hagenuda PA Work Phone: Start: 09-25-2019 Iadna s aureus methicillin resist amp probe tq Gregory Mendez MD Work Phone: Start: 08-29-2019 Blood count complete auto&auto difrntl wbc Julia Kwon Work Phone: Start: 08-29-2019 Renal function panel Julia Kwon Work Phone: Start: 07-27-2019 Urinalysis microscopic only Shital dumont Work Phone: Start: 07-27-2019 Urnls dip stick/tablet rgnt auto w/o microscopy Shital Fry Work Phone: Start: 07-27-2019 Radiologic exam chest 2 views Cyndi Work Phone: Start: 07-27-2019 Assay of ammonia Isidro Andmallory Work Phone: Start: 07-27-2019 Assay of magnesium Shital Fry Work Phone: Start: 07-27-2019 Basic metabolic panel calcium total Shital Fry Work Phone: Start: 07-27-2019 Blood count complete automated Shital Fry Work Phone: Start: 07-27-2019 DIFFERENTIAL Shital Fry Work Phone: Start: 07-27-2019 Hepatic function panel Isidro Andmallory Work Phone: Start: 07-25-2019 Fibrin dgradj products d-dimer quantitative Vic L Tom Work Phone: Start: 07-25-2019 Blood count complete auto&auto difrntl wbc Barb Ray Work Phone: Start: 07-25-2019 Renal function panel Barb Ray Work Phone: Start: 06-27-2019 Blood count complete auto&auto difrntl wbc Barb Ray Work Phone: Start: 06-27-2019 Renal function panel Day Flor Work Phone: Start: 06-22-2019 Urinalysis microscopic only Russell E Adilson es Work Phone: Start: 06-22-2019 Urnls dip stick/tablet rgnt auto w/o microscopy Russell E Patricio Work Phone: Start: 06-22-2019 Ct abdomen & pelvis w/o contrast material Russell E Patricio Work Phone: Start: 06-22-2019 Blood count complete auto&auto difrntl wbc Russell E Lanetches Work Phone: Start: 06-22-2019 Comprehensive metabolic panel Russell E Eit ches Work Phone: Start: 05-29-2019 Assay of blood/uric acid David Rebeka Ángel Start: 05-29-2019 Blood count complete auto&auto difrntl wbc David Rebeka Ángel Start: 05-29-2019 Comprehensive metabolic panel David Garcia Start: 05-29-2019 Lipid panel David Rebeka Ángel Start: 07-13-2018 Lipid 1996 panel - Serum or Plasma Jabier Shelley MD Work Phone: Appendectomy Melonie Walsh Work Phone: Cadaveric renal transplant M adrian Walsh Work Phone: H/O: surgery S/P brain surgery Mony delcid PA-C Work Phone: H/O: surgery S/P brain surgery Farrah farmer DO Work Phone: H/O: surgery S/P brain surgery Sarah Warren AUTOMOTIVE PAINTER.RETAIL MARKETING 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 Work Phone: Hernia repair Melonie Walsh Work Phone: History of renal transplant [facility] [facility] transplant recipient Melonie Walsh Work Phone: History of renal transplant Aixa Aly Other History of renal transplant [place] transplant, status post MD Melonie Walsh Work Phone: History of renal transplant S/P kidney transplant [facility] Work Phone: History of renal transplant Kidjuli ey replaced by transplant [facility] 3 Work Phone: History of renal transplant [place] [facility] transplant recipient Farrah Vickers DO Work Phone: Operation on fracture Melonie E Walsh Work Phone: Operative procedure on ankle Melonie E Walsh Work Phone: Operative procedure on wrist Melonie E Walsh Work Phone: Removal of suture Melonie Bra un Other Plan of Treatment Date Care Activity Detail Author Start: 11-04-2027 DTaP/Tdap/Td vaccine (2 - Td or Tdap) DTaP/Tdap/Td vaccine (2 - Td or Tdap) [facility] Start: 11-04-2027 DTaP/Tdap/Td vaccine (2 - Td) DTaP/Tdap/Td vaccine (2 - Td) [place], [place] Start: 11-04-2027 Urine microalbumin profile [facility] Start: 11-16-2026 Lipid panel Lipid Screening [facility] Start: 08-08-2026 Diabetes Screening Diabetes Screening [facility] Start: 08-04-2026 Diabetes Screening Diabetes Screening [facility] Start: 07-21-2026 Diabetes Screening Diabetes Screening [facility] Start: 05-24-2026 DIABETES SCREEN DIABETES SCREEN [facility] Start: 03-05-2026 DIABETES SCREEN DIABETES SCREEN [facility] Start: 02-19-2026 DIABETES SCREEN DIABETES SCREEN [facility] Start: 02-08-2026 DIABETES SCREEN DIABETES SCREEN [facility] Start: 12-13-2025 DIABETES SCREEN DIABETES SCREEN [facility] Start: 08-11-2024 BP Controlled (<130/80) BP Controlled (<130/80) [facility] Start: 08-10-2024 BP Controlled (<130/80) BP Controlled (<130/80) [facility] Start: 07-27-2024 BP Controlled (<130/80) BP Controlled (<130/80) [facility] Start: 06-17-2024 BP CONTROLLED (<130/80) BP CONTROLLED (<130/80) [facility] Start: 06-10-2024 Influenza vaccination Influenza Vaccine (Season Ended) [facility] Start: 05-29-2024 Lipid screen Lipid screen [facility] Start: 05-20-2024 BP CONTROLLED (<130/80) BP CONTROLLED (<130/80) [facility] Start: 05-10-2024 Influenza vaccination Flu vaccine (Season Ended) [facility] Start: 04-06-2024 BP CONTROLLED (<130/80) BP CONTROLLED (<130/80) [facility] Start: 02-09-2024 BP CONTROLLED (<130/80) BP CONTROLLED (<130/80) [facility] Start: 01-02-2024 Annual Wellness Visit (Medicare) Annual Wellness Visit (Medicare) [facility] [employer] Start: 01-02-2024 Lipid screen Lipid screen [facility] Start: 12-14-2023 BP CONTROLLED (<130/80) BP CONTROLLED (<130/80) [facility] Start: 10-10-2023 Behavioral Health Screening Behavioral Health Screening [facility] Start: 10-10-2023 Depression Assessment Depression Assessment [facility] Start: 07-13-2023 Lipid 1996 panel - Serum or Plasma Lipid Screening [facility] Start: 07-13-2023 LIPID SCREEN LIPID SCREEN [facility] Start: 06-10-2023 Covid-19 Vaccine ( season) Covid-19 Vaccine ( season) [facility] Start: 06-10-2023 COVID-19 Vaccine ( season) [facility] Start: 06-10-2023 Influenza vaccination [facility] Start: 05-24-2023 End: 07-24-2023 aPTT in Platelet poor plasma by Coagulation assay ACTIVATED PTT Lab Routine Encounter for other preprocedural examination Partial epilepsy with impairment of consciousness, intractable (HCC) Expected: 05/24/2023, Expires: 07/24/[address] [facility] Work Phone: Comment on above: Expected: 05/24/2023, Expires: Start: 05-24-2023 End: 07-24-2023 CBC panel - Blood by Automated count CBC Lab Routine Encounter for other preprocedural examination Partial epilepsy with impairment of consciousness, intractable (HCC) Expected: 05/24/2023, Expires: 07/24/[address] [facility] Work Phone: Comment on above: Expected: 05/24/2023, Expires: 3 Start: 05-24-2023 End: 07-24-2023 Comprehensive metabolic 2000 panel - Serum or Plasma COMP METABOLIC PANEL Lab Routine Encounter for other preprocedural examination Partial epilepsy with impairment of consciousness, intractable (HCC) Expected: 05/24/2023, Expires: 07/24/[address] [facility] Work Phone: Comment on above: Expected: 05/24/2023, Expires: 3 Start: 05-24-2023 End: 07-24-2023 CONFIRM BLOOD TYPE CONFIRM BLOOD TYPE Blood Bank Routine Encounter for other preprocedural examination Partial epilepsy with impairment of consciousness, intractable (HCC) Expected: 05/24/2023, Expires: 07/24/[address] [facility] Work Phone: Comment on above: Expected: 05/24/2023, Expires: 3 Start: 05-24-2023 End: 07-24-2023 PT panel - Platelet poor plasma by Coagulation assay PROTHROMBIN TIME/PT Lab Routine Encounter for other preprocedural examination Partial epilepsy with impairment of consciousness, intractable (HCC) Expected: 05/24/2023, Expires: 07/24/[address] [facility] Work Phone: Comment on above: Expected: 05/24/2023, Expires: 3 Start: 05-24-2023 End: 10-03-2023 [facility] PCR [facility] PCR Lab Routine Encounter for other preprocedural examination Partial epilepsy with impairment of consciousness, intractable (HCC) Expected: 05/24/2023, Expires: 10/03/[address] [facility] Work Phone: Comment on above: Expected: 05/24/2023, Expires: 3 Start: 05-24-2023 End: 07-24-2023 TYPE AND SCREEN,30 DAY TYPE AND SCREEN,30 DAY Blood Bank Routine Encounter for other preprocedural examination Partial epilepsy with impairment of consciousness, intractable (HCC) Expected: 05/24/2023, Expires: 07/24/[address] [facility] Work Phone: Comment on above: Expected: 05/24/2023, Expires: 3 Start: 05-24-2023 End: 05-05-2024 Unlisted magnetic resonance procedure [facility] Work Phone: Comment on above: Expected: 05/24/2023, Expires: 4 Ordered: 05/24/2023 Start: 05-10-2023 Influenza vaccination [facility] Start: 03-17-2023 Blood chemistry [facility] Start: 03-16-2023 Blood chemistry [facility] Start: 03-15-2023 Blood chemistry [facility] Start: 03-15-2023 [facility] Start: 03-14-2023 [facility] Start: 03-13-2023 Referral to psychiatrist [facility] Start: 03-13-2023 Consultation [facility] Start: 03-13-2023 Hospital admission [facility] Start: 03-13-2023 Referral to senior principal process engineer [facility] Start: 03-13-2023 [facility] Start: 03-13-2023 [facility] Start: 03-13-2023 Referral to senior principal process engineer [facility] Start: 03-13-2023 Blood culture for bacteria, including anaerobic screen Blood Culture [facility] Start: 03-13-2023 [facility] Start: 03-12-2023 Referral to clinical parking lot signaler [facility] Start: 03-10-2023 Hospital admission [facility] Start: 02-08-2023 End: 04-10-2023 aPTT in Platelet poor plasma by Coagulation assay ACTIVATED PTT Lab Routine Preoperative testing Expected: 02/08/2023, Expires: 04/10/[address] [facility] Work Phone: Comment on above: Expected: 02/08/2023, Expires: 3 Start: 02-08-2023 End: 04-10-2023 CBC panel - Blood by Automated count CBC Lab Routine Preoperative testing Expected: 02/08/2023, Expires: 04/10/[address] [facility] Work Phone: Comment on above: Expected: 02/08/2023, Expires: 3 Start: 02-08-2023 End: 04-10-2023 Comprehensive metabolic 2000 panel - Serum or Plasma COMP METABOLIC PANEL Lab Routine Preoperative testing Expected: 02/08/2023, Expires: 04/10/[address] [facility] Work Phone: Comment on above: Expected: 02/08/2023, Expires: 3 Start: 02-08-2023 End: 02-27-2024 CTA HEAD W IVCON CTA HEAD W IVCON Radiology Routine Encounter for other preprocedural examination Intractable epilepsy with status epilepticus, unspecified epilepsy type (HCC) Preoperative testing Expected: 02/08/2023, Expires: 02/27/[address] [facility] Work Phone: Comment on above: Expected: 02/08/2023, Expires: 4 Start: 02-08-2023 End: 04-10-2023 PT panel - Platelet poor plasma by Coagulation assay PROTHROMBIN TIME/PT Lab Routine Preoperative testing Expected: 02/08/2023, Expires: 04/10/[address] [facility] Work Phone: Comment on above: Expected: 02/08/2023, Expires: 3 Start: 02-08-2023 End: 07-27-2023 [facility] PCR [facility] PCR Lab Routine Preoperative testing Expected: 02/08/2023, Expires: 07/27/[address] [facility] Work Phone: Comment on above: Expected: 02/08/2023, Expires: 3 Start: 02-08-2023 End: 02-27-2024 Unlisted magnetic resonance procedure [facility] Work Phone: Comment on above: Expected: 02/08/2023, Expires: 4 1 Occurrences starti ng 02/08/2023 until 02/08/2023 Start: 11-25-2022 End: 11-25-2023 SARS-CoV-2 (COVID-19) RNA [Presence] in Respiratory specimen by ARINA with probe detection PRE-PROCEDURE & PRE-OPERATIVE COVID Microbiology Routine Convulsions, unspecified convulsion type (HCC) Expected: 11/25/2022, Expires: 11/25/[address] [facility] Work Phone: Comment on above: Expected: 11/25/2022, Expires: 4 Start: 11-16-2022 Lipid panel [facility] Start: 11-16-2022 Prostate specific antigen measurement Prostate Specific Antigen (PSA) Screening or Monitoring [facility] Start: 11-16-2022 Thyroid stimulating hormone measurement [facility] Start: 11-15-2022 [facility] Start: 11-12-2022 Hospital admission [facility] Start: 11-04-2022 PNEUMOCOCCAL (3 - PPSV23 if available, else PCV20) PNEUMOCOCCAL (3 - PPSV23 if available, else PCV20) [facility] Start: 11-04-2022 PNEUMOCOCCAL (3 - PPSV23 or PCV20) PNEUMOCOCCAL (3 - PPSV23 or PCV20) [facility] Start: 11-04-2022 Pneumococcal 0-64 years Vaccine (3 - PPSV23 if available, else PCV20) Pneumococcal 0-64 years Vaccine (3 - PPSV23 if available, else PCV20) [facility] Start: 11-04-2022 Pneumococcal 0-64 years Vaccine (3 of 3 - PPSV23 or PCV20) Pneumococcal 0-64 years Vaccine (3 of 3 - PPSV23 or PCV20) [facility] Start: 11-04-2022 Pneumococcal 0-64 years Vaccine (3 of 3 - PPSV23) Pneumococcal 0-64 years Vaccine (3 of 3 - PPSV23) [facility] Work Phone: Start: 11-04-2022 Pneumococcal vaccination [facility] Start: 10-10-2022 DEPRESSION ASSESSMENT DEPRESSION ASSESSMENT [facility] Start: 08-12-2022 End: 08-12-2022 Patient encounter procedure 08/12/2022 Office Visit Cardiology Alvaro Tabor MD [address] [address] [facility] Start: 06-25-2022 Lipid panel Lipid screen [facility] Start: 06-25-2022 Thyroid stimulating hormone measurement TSH testing [facility] [employer] Start: 06-10-2022 Influenza vaccination [facility] Start: 05-12-2022 COVID-19 Vaccine (5 - Booster for Pfizer series) COVID-19 Vaccine (5 - Booster for Pfizer series) [facility] [employer] Start: 05-10-2022 Influenza vaccination Flu vaccine (#1) [facility] [employer] Start: 03-24-2022 Lipid panel Lipid screen [facility] [employer] Phone: Start: 03-24-2022 Thyroid stimulating hormone measurement TSH testing [facility] [employer] Phone: Start: 01-20-2022 [facility], Provider: Rm Mcqueen, Status: Pen, Time: 11:00 AM [facility], Provider: Rm Mcqueen, Status: Pen, Time: 11:00 AM [facility] 250 DO Work Phone: Start: 01-06-2022 Creatinine measurement Creatinine monitoring [facility] [employer] Phone: Start: 01-06-2022 Potassium monitoring Potassium monitoring [facility] [employer] Phone: Start: 11-29-2021 COVID-19 Vaccine (4 - Booster for Pfizer series) COVID-19 Vaccine (4 - Booster for Pfizer series) [facility] [employer] Start: 11-05-2021 Creatinine measurement Creatinine monitoring [facility] [employer] Phone: Start: 11-05-2021 Potassium monitoring Potassium monitoring [facility] [employer] Phone: Start: 10-29-2021 COVID-19 Vaccine (4 - Booster for Pfizer series) COVID-19 Vaccine (4 - Booster for Pfizer series) [facility] [employer] Start: 09-18-2021 Creatinine [facility] [place] [place] [place] Start: 09-18-2021 Potassium monitoring Potassium monitoring [facility], [place] Start: 08-29-2021 COVID-19 Vaccine (4 - Booster for Pfizer series) COVID-19 Vaccine (4 - Booster for Pfizer series) [facility] Start: 08-21-2021 COVID-19 Vaccine (4 - Booster for Pfizer series) COVID-19 Vaccine (4 - Booster for Pfizer series) [facility] Start: 08-10-2021 End: 08-10-2021 Patient encounter procedure 08/10/2021 Office Visit Cardiology Alvaro Tabor MD [address] [address] [phone] [facility] Start: 08-07-2021 Creatinine measurement [facility] [place] Start: 08-07-2021 Potassium monitoring Potassium monitoring [facility] [place] Start: 08-07-2021 Thyroid stimulating hormone measurement TSH testing [facility] [employer] Work Phone: Start: 08-07-2021 TSH Qn TSH testing [place], [place] Start: 07-24-2021 COVID-19 Vaccine (4 - Booster for Pfizer series) COVID-19 Vaccine (4 - Booster for Pfizer series) [facility] Start: 07-24-2021 COVID-19 VACCINE (4 - Pfizer risk series) COVID-19 VACCINE (4 - Pfizer risk series) [facility] Start: 07-03-2021 Creatinine measurement [facility] [place] [place] Start: 07-03-2021 Potassium monitoring Potassium monitoring [facility] [place] Start: 06-10-2021 Influenza vaccination [facility] Start: 05-01-2021 Creatinine measurement [facility] [place] [place] [place] Start: 05-01-2021 Potassium monitoring Potassium monitoring [facility] [place], [place] Start: 04-28-2021 End: 04-28-2021 Patient encounter procedure 04/28/2021 Office Visit Orthopedic Surgery Carly Sanchez DO [address] [facility] [address] [address] [phone] [facility] Start: 03-31-2021 Lipid panel Lipid screen [place], [place] Start: 03-31-2021 TSH Qn TSH testing [place] Start: 03-29-2021 Annual Wellness Visit (AWV) Annual Wellness Visit (AWV) [facility] [employer] Phone: Start: 03-17-2021 End: 03-17-2021 Patient encounter procedure 03/17/2021 Office Visit Orthopedic Surgery Carly Sanchez DO [address] [facility] [address] [address] [phone] [facility] Start: 03-04-2021 Creatinine measurement [facility]inine [facility] [place] Start: 03-04-2021 Potassium monitoring Potassium monitoring [place] Start: 02-26-2021 End: 02-26-2021 Patient encounter procedure 02/26/2021 Office Visit Cardiology Alvaro Tabor MD [address] [address] [phone] [facility] Start: 02-20-2021 COVID-19 Vaccine (3 - Pfizer risk 3-dose series) COVID-19 Vaccine (3 - Pfizer risk 3-dose series) [facility] [employer] Phone: Start: 02-10-2021 End: 02-10-2021 Patient encounter procedure 02/10/2021 Office Visit Orthopedic Surgery Carly Sanchez DO [address] [facility] [address] [address] [phone] [facility] Start: 01-27-2021 Creatinine measurement [facility]inine [facility] [place] [place] Start: 01-27-2021 Potassium monitoring Potassium monitoring [facility] [place] Start: 2021 PROSTATE CANCER SCREENING DISCUSSION PROSTATE CANCER SCREENING DISCUSSION [facility] Start: 2021 Prostate specific antigen measurement Prostate Cancer Screening Discussion [facility] Start: 01-22-2021 End: 01-22-2021 Office Visit 01/22/2021 Office Visit Cardiothoracic Surgery Lisandro Lamb MD [address] [facility] [address] [place] [address] [phone] [facility] Start: 01-21-2021 End: 01-09-2022 XR CHEST STANDARD (2 VW) XR CHEST STANDARD (2 VW) Imaging Routine Pneumothorax, unspecified type Expected: 01/21/2021, Expires: 01/09/2022 [employer] Phone: Comment on above: Expected: 01/21/2021, Expires: Start: 01-13-2021 End: 01-13-2021 Office Visit 01/13/2021 Office Visit Orthopedic Surgery Carly Sanchez DO [address] [facility] [address] [place] [address] [phone] [facility] Start: 01-12-2021 Annual Wellness Visit (AWV) Annual Wellness Visit (AWV) [employer] Phone: Start: 12-26-2020 Creatinine monitoring Creatinine monitoring [employer] [place] Start: 12-26-2020 Potassium monitoring Potassium monitoring [place] [place] Start: 12-20-2020 Annual Wellness Visit (AWV) Annual Wellness Visit (AWV) [employer] Phone: Start: 10-24-2020 Creatinine monitoring Creatinine monitoring [employer] Phone: Start: 10-24-2020 Potassium monitoring Potassium monitoring [employer] Phone: Start: 09-27-2020 Creatinine monitoring Creatinine monitoring [employer] Phone: Start: 09-27-2020 Potassium monitoring Potassium monitoring [employer] Phone: Start: 09-25-2020 Creatinine monitoring Creatinine monitoring [facility] Phone: Start: 09-25-2020 Potassium monitoring Potassium monitoring [facility] [employer] [facility] Phone: Start: 07-27-2020 Creatinine monitoring Creatinine monitoring [place], [place] Start: 07-27-2020 Potassium monitoring Potassium monitoring [place] Start: 07-25-2020 Creatinine monitoring Creatinine monitoring [place] Start: 07-25-2020 Potassium monitoring Potassium monitoring [place] Start: 06-27-2020 Creatinine monitoring Creatinine monitoring [place] Start: 06-27-2020 Potassium monitoring Potassium monitoring [place] Start: 06-22-2020 Creatinine monitoring Creatinine monitoring [place] Start: 06-22-2020 Potassium monitoring Potassium monitoring [place] Start: 06-10-2020 Influenza vaccination Flu vaccine (#1) [place] Start: 05-29-2020 Lipid panel Lipid screen [place] Start: 05-29-2020 Lipid screen Lipid screen [place] Start: 05-29-2020 Potassium monitoring Potassium monitoring [place] Start: 04-25-2020 Creatinine monitoring Creatinine monitoring [place] Start: 04-25-2020 Potassium monitoring Potassium monitoring [place] Start: 01-30-2020 TSH Qn TSH testing [place] Start: 01-30-2020 TSH testing TSH testing [place] Start: 06-10-2019 Influenza vaccination Flu vaccine (#1) [place] Start: 04-01-2019 Annual Wellness Visit (AWV) Annual Wellness Visit (AWV) [place] Start: 11-04-2018 Pneumococcal 0-64 years Vaccine (2 of 3 - PCV13) Pneumococcal 0-64 years Vaccine (2 of 3 - PCV13) [place] Start: 01-27-2016 Colon cancer screen colonoscopy Colon cancer screen colonoscopy [place], [place] Start: 01-27-2016 Screening for malignant neoplasm of colon Colon cancer screen colonoscopy [place] Start: 01-27-2016 Shingles Vaccine (1 of 2) Shingles Vaccine (1 of 2) [facility] Start: 01-27-2016 SHINGRIX VACCINE (1 of 2) SHINGRIX VACCINE (1 of 2) [facility] Start: 2011 COLOGUARD (FIT-DNA) COLOGUARD (FIT-DNA) [facility] Start: 2011 Colonoscopy COLONOSCOPY [facility] Start: 2011 COLORECTAL CANCER SCREENING COLORECTAL CANCER SCREENING [facility] Start: [address] COLONOGRAPHY [facility] Start: 2011 DIABETES SCREEN DIABETES SCREEN [facility] Start: 2011 FECAL OCCULT BLOOD FECAL OCCULT BLOOD [facility] Start: 2011 Screening for malignant neoplasm of colon [facility] Start: 2011 SIGMOIDOSCOPY SIGMOIDOSCOPY [facility] Start: 2006 Diabetes screen Diabetes screen [facility] Work Phone: Start: 2001 Diabetes screen Diabetes screen [facility] Start: 1985 DTaP/Tdap/Td vaccine (1 - Tdap) DTaP/Tdap/Td vaccine (1 - Tdap) [facility] Start: 1985 Hepatitis B Vaccine (1 of 3 - 19+ 3-dose series) Hepatitis B Vaccine (1 of 3 - 19+ 3-dose series) [facility] Start: 1985 Hepatitis B Vaccine (1 of 3 - Risk Recombivax 3-dose series) Hepatitis B Vaccine (1 of 3 - Risk Recombivax 3-dose series) [place] Start: 1985 Shingles vaccine (1 of 2) Shingles vaccine (1 of 2) [facility] Start: 1985 SHINGRIX VACCINE (1 of 2) SHINGRIX VACCINE (1 of 2) [facility] Start: 1985 Urine microalbumin profile DTAP,TDAP,TD (1 - Tdap) [facility] Start: 01-27-1984 ANNUAL PCP TEAM CHRONIC DISEASE VISIT ANNUAL PCP TEAM CHRONIC DISEASE VISIT [facility] Start: 01-27-1984 BP CONTROLLED (<130/80) BP CONTROLLED (<130/80) [facility] Start: 01-27-1984 Hepatitis C screening [facility] Start: 01-27-1984 HEPATITIS C SCREENING HEPATITIS C SCREENING [facility] Start: 01-27-1984 HIV SCREENING HIV SCREENING [facility] Start: 01-27-1984 HIV screening HIV Screening [facility] Start: 1982 COVID-19 Vaccine (1) COVID-19 Vaccine (1) [facility] [employer] Phone: Start: 1981 HIV screen HIV screen [facility] Start: 1981 HIV screening HIV screen [facility] Start: 1978 COVID-19 Vaccine (1) COVID-19 Vaccine (1) [facility] [employer] Phone: Start: 1978 Depression Screen Depression Screen [facility] Start: 01-27-1976 Lipid panel Lipid screen [facility] [employer] Phone: Start: 01-27-1972 PNEUMOCOCCAL (1 - PCV) PNEUMOCOCCAL (1 - PCV) [facility] Start: 01-27-1972 Pneumococcal 0-64 years Vaccine (1 - PCV) Pneumococcal 0-64 years Vaccine (1 - PCV) [facility] Start: 01-27-1972 Pneumococcal 0-64 years Vaccine (1 of 3 - PCV13) Pneumococcal 0-64 years Vaccine (1 of 3 - PCV13) [facility] [employer] Phone: Start: 01-27-1972 Pneumococcal 0-64 years Vaccine (1 of 4 - PCV13) Pneumococcal 0-64 years Vaccine (1 of 4 - PCV13) [facility] Start: 1966 HEPATITIS B (1 of 3 - 3-dose series) HEPATITIS B (1 of 3 - 3-dose series) [facility] Start: 1966 Hepatitis B Vaccine (1 of 3 - 3-dose series) Hepatitis B Vaccine (1 of 3 - 3-dose series) [facility] Start: 1966 Hepatitis C screening Hepatitis C screen [facility] [employer] Acapella Acapella Respira tory Care Routine Every 2hr while awake until discontinued starting 01/05/2021 [employer] Phone: Comment on above: Every 2hr while awake until discontinued starting 01/05/2021 aPTT in Blood by Coagulation assay [facility] Phone: Comment on above: Now Then Every 6hr until discontinued st arting 01/31/2021, 1 completed End: 03-04-2020 BK Virus, Blood, Quantitative BK Virus, Blood, Quantitative Lab Routine Once for 1 Occurrences starting 03/04/2020 until 03/04/2020 [facility] Comment on above: Once for 1 Occurrences starting 03/04/20 20 until 03/04/2020 BK Virus, Blood, Quantitative BK Virus, Blood, Quantitative Lab Routine 03/04/2020 4:32 PM EDT PCA Audit [facility] CONTEMPORARY ART CURATOR REPORT MODERN AND CONTEMPORARY ART CURATOR REPORT Cardiac Cath 02/06/2021 11:32 AM [facility] [employer] Phone: End: 09-26-2020 Covid-19 Ambulatory Covid-19 Ambulatory Lab Routine Once for 1 Occurrences starting 09/26/2020 until 09/26/2020 [facility] Comment on above: Once for 1 Occurrences starting 09/26/20 20 until 09/26/2020 Covid-19 Ambulatory Covid-19 Amb ulatory Lab Routine 09/26/2020 11:27 AM [facility] End: 03-10-2023 COVID-19, Rapid COVID-19, Rapid Microbiology STAT One Time for 1 Occurrences starting 03/10/2023 until 03/10/2023 DEBRA LIEBERMAN [employer] Phone: Comment on above: One Time for 1 Occurrences starting 10/2022 until 03/10/2023 End: 01-04-[address] 3D RECONSTRUCTION Imaging Routine Once for 1 Occurrences starting 01/04/2021 until 01/04/2021 [employer] Work Phone: Comment on above: Once for 1 Occurrences starting 01/05/20 21 until 01/04/2021 CT 3D RECONSTRUCTION [facility] Work Phone: CT ABDOMEN PELVIS WO CONTRAST Additional Contrast? None CT ABDOMEN PELVIS WO CONTRAST Additional Contrast? None Imaging STAT 06/22/2019 10:38 AM [facility] PCA Audit CT [facility] Culture with Smear, Acid Fast Bacillius Culture with Smear, Acid Fast Bacillius Microbiology Routine 01/05/2021 10:23 AM [facility] [employer] Work Phone: Culture, Fungus [employer] Phone: Comment on above: Release Upon Ordering for 1 Occurrences starting 01/05/2021 Dup-scan xtr veins complete bilateral study VASCULAR REPORT Imaging Ordered: 01/31/2021 [employer] Phone: Comment on above: Ordered: 01/31/2021 End: 01-29-2024 ECG COMPLETE ECG COMPLETE ECG Routine Preoperative testing 1 Occurrences starting 01/28/2023 until 01/29/2024 [employer] Phone: Comment on above: 1 Occurrences starting 01/28/2023 until 01/29/2024 End: 04-06-2024 ECG COMPLETE ECG COMPLETE ECG Routine Encounter for other preprocedural examination Partial epilepsy with impairment of consciousness, intractable (HCC) 1 Occurrences starting 04/07/2023 until 04/06/2024 [employer] Phone: Comment on above: 1 Occurrences starting 04/07/2023 until 04/06/2024 EKG 12 Lead [employer] Phone: EKG 12 Lead EKG 12 Lead ECG STAT 02/29/2024 9:18 PM EDT DEBRA LIEBERMAN [employer] End: 11-25-2023 EPIL EEG LEAD PLACEMENT EPIL EEG LEAD PLACEMENT NEUROLOGY Routine Convulsions, unspecified convulsion type (HCC) 1 Occurrences starting 11/25/2022 until 11/25/2023 [employer] Phone: Comment on above: 1 Occurrences starting 11/25/2022 until 11/25/2023 EPIL VEEG ADMIT TO EMU/PMU EPIL VEEG ADMIT TO EMU/PMU NEUROLOGY Routine Convulsions, unspecified convulsion type (HCC) Ordered: 11/25/2022 [employer] Phone: Comment on above: Ordered: 11/25/2022 EZPAP EZPAP Respirator y Care Routine As Needed until discontinued starting 01/08/2021 [employer] Phone: Comment on above: As Needed until discontinued starting Guidance for removal of venous filter from Inferior vena cava IR IVC FILTER REMOVAL Radiology Routine S/P IVC filter 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 Work Phone: Comment on above: Ordered: 01/03/2024 Incentive spirometry Incentive s pirometry Respiratory Care Routine Every 2hr while awake until discontinued starting 09/26/2019 [employer] Phone: Comment on above: Every 2hr while awake until discontinued starting 09/26/2019 Initiate Oxygen Ther apy Protocol Initiate Oxygen Therapy Protocol Respiratory Care Routine Daily until discontinued starting 09/25/2019 [employer] Phone: Comment on above: Daily until discontinued starting 2018 End: 03-30-2022 Lacosamide Level BON [employer] Phone: Comment on above: Once for 1 Occurrences starting 03/30/20 until 03/30/2022 End: 07-27-2019 Lamotrigine Level Lamotrigine Level Lab STAT One Time for 1 Occurrences starting 07/27/2019 until 07/27/2019 [facility] [place] Comment on above: One Time for 1 Occurrences starting 07/10 until 07/27/2019 Lamotrigine Level Lamotrigine Le jake Lab STAT 07/27/2019 7:00 PM EDT [facility] End: 03-10-2023 Lamotrigine Level BON [employer] Phone: Comment on above: One Time for 1 Occurrences starting 10/2022 until 03/10/2023 Oxygen therapy [[facility] Data Set] [employer] Phone: Comment on above: Daily until discontinued starting 2020 Daily until disconti nued starting 01/31/2021 Daily until disconti nued starting 02/06/2021 Patient Education [facility] Work Phone: Patient referral [facility] Work Phone: End: 03-31-2020 Prograf Prograf Lab Routine Once for 1 Occurrences starting 03/31/2020 until 03/31/2020 [facility], [place] Comment on above: Once for 1 Occurrences starting 03/31/20 20 until 03/31/2020 Prograf [facility], [place] End: 06-03-2020 Prograf Prograf Lab Routine Once for 1 Occurrences starting 06/03/2020 until 06/03/2020 [facility] Comment on above: Once for 1 Occurrences starting 06/03/20 20 until 06/03/2020 End: 07-03-2020 Prograf Prograf Lab Routine Once for 1 Occurrences starting 07/03/2020 until 07/03/2020 [facility] Comment on above: Once for 1 Occurrences starting 07/03/20 20 until 07/03/2020 End: 08-07-2020 Prograf Prograf Lab Routine Once for 1 Occurrences starting 08/07/2020 until 08/07/2020 [facility] Comment on above: Once for 1 Occurrences starting 08/07/20 20 until 08/07/2020 End: 09-18-2020 Prograf Prograf Lab Routine Once for 1 Occurrences starting 09/18/2020 until 09/18/2020 [facility] Comment on above: Once for 1 Occurrences starting 09/18/20 20 until 09/18/2020 End: 11-05-2020 Prograf Prograf Lab Routine Once for 1 Occurrences starting 11/05/2020 until 11/05/2020 [facility] Comment on above: Once for 1 Occurrences starting 11/05/19 21 until 11/05/2020 End: 11-26-2020 Prograf Prograf Lab Routine Once for 1 Occurrences starting 11/26/2020 until 11/26/2020 [facility] Phone: Comment on above: Once for 1 Occurrences starting 11/26/19 21 until 11/26/2020 End: 04-16-2021 Prograf Prograf Lab Routine Once for 1 Occurrences starting 04/16/2021 until 04/16/2021 [employer] Phone: Comment on above: Once for 1 Occurrences starting 04/16/20 21 until 04/16/2021 End: 09-25-2019 Prolactin Prolactin Lab Routine One Time for 1 Occurrences starting 09/25/2019 until 09/25/2019 [employer] Phone: Comment on above: One Time for 1 Occurrences starting 09/09 until 09/25/[address] AT 09/25/2019 6:20 PM EST [employer] Phone: End: 08-07-2020 PSA, free PSA, free Lab Routine Once for 1 Occurrences starting 08/07/2020 until 08/07/2020 [facility] Comment on above: Once for 1 Occurrences starting 08/07/20 20 until 08/07/2020 PSA, free PSA, free Lab Ro utine 08/07/2020 4:37 PM EDT [facility] REFER FOR ADMIT INTERVIEW REFER FOR ADMIT INTERVIEW Procedures Routine Preoperative testing Ordered: 01/28/2023 [employer] Phone: Comment on above: Ordered: 01/28/2023 REFER FOR ADMIT INTERVIEW REFER FOR ADMIT INTERVIEW Procedures Routine Encounter for other preprocedural examination Partial epilepsy with impairment of consciousness, intractable (HCC) Ordered: 04/07/2023 [employer] Work Phone: Comment on above: Ordered: 04/07/2023 Spirometry panel Incentive mere metry Respiratory Care Routine Every 4hr while awake until discontinued starting 02/06/2021 [employer] Phone: Comment on above: Every 4hr while awake until discontinued starting 02/06/2021 End: 09-27-2019 URINALYSIS WITH MICROSCOPIC URINALYSIS WITH MICROSCOPIC Lab Routine One Time for 1 Occurrences starting 09/27/2019 until 09/27/2019 [employer] Phone: Comment on above: One Time for 1 Occurrences starting 09/09 until 09/27/2019 End: 02-01-2024 US LEG VEIN DVT UNL VAS LAB US LEG VEIN DVT UNL VAS LAB Vascular Lab Routine Personal history of DVT (deep vein thrombosis) 1 Occurrences starting 01/31/2023 until 02/01/2024 [facility] Work Phone: Comment on above: 1 Occurrences starting 01/31/2023 until 02/01/2024 End: 02-09-2024 US VISCERAL VEIN COMPLETE VAS LAB US VISCERAL VEIN COMPLETE VAS LAB Vascular Lab Routine History of DVT of lower extremity 1 Occurrences starting 02/08/2023 until 02/09/[address] [facility] Work Phone: Comment on above: 1 Occurrences starting 02/08/2023 until 02/09/2024 End: 01-12-2021 XR CHEST PORTABLE XR CHEST PORTABLE Imaging Routine Daily for 7 Days starting 01/06/2021 until 01/12/2021, 4 completed [facility] Work Phone: Comment on above: Daily for 7 Days starting 01/06/2021 unt il 01/12/2021, [address] [facility] Immunizations Immunization Date Immunization Notes Care Provider [facility] 05-29-2021 Pfizer-BioNTech COVID-19 Vacc 30 MCG/0.3ML Intramuscular Suspension Melonie Walsh Work Phone: [facility] 01-23-2021 Pfizer-BioNTech COVID-19 Vacc 30 MCG/0.3ML Intramuscular Suspension Melonie Walsh Work Phone: [facility] 12-12-2020 Pfizer-BioNTech COVID-19 Vacc 30 MCG/0.3ML Intramuscular Suspension Melonie Walsh Work Phone: [facility] 06-11-2020 influenza, injectabl e, quadrivalent, preservative free Law Ge MD Work Phone: [facility] 06-11-2020 influenza virus vaccine, unspecified formulation Jabier Shelley MD Work Phone: [facility] 09-05-2019 pneumococcal conjuga te vaccine, 13 valent Law Ge MD Work Phone: [facility] 07-12-2019 influenza, injectabl e, quadrivalent, preservative free Law Ge MD Work Phone: [facility] 07-13-2018 influenza, injectabl e, quadrivalent, preservative free Law Ge MD Work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 Alcohol and Drug Abuse Patient Records regulations: The Federal rules restrict any use of the information to criminally investigate or prosecute any alcohol or drug abuse patient.[facility] HospitalIn the event this information is protected by the Federal Confidentiality of Alcohol and Drug Abuse Patient Records regulations: The Federal rules restrict any use of the information to criminally investigate or prosecute any alcohol or drug abuse patient.[facility] HospitalIn the event this information is protected by the Federal Confidentiality of Alcohol and Drug Abuse Patient Records regulations: The Federal rules restrict any use of the information to criminally investigate or prosecute any alcohol or drug abuse patient.[facility] HospitalIn the event this information is protected by the Federal Confidentiality of Alcohol and Drug Abuse Patient Records regulations: The Federal rules restrict any use of the information to criminally investigate or prosecute any alcohol or drug abuse patient.[facility] HospitalIn the event this information is protected by the Federal Confidentiality of Alcohol and Drug Abuse Patient Records regulations: The Federal rules restrict any use of the information to criminally investigate or prosecute any alcohol or drug abuse patient.[facility] HospitalIn the event this information is protected by the Federal Confidentiality of Alcohol and Drug Abuse Patient Records regulations: The Federal rules restrict any use of the information to criminally investigate or prosecute any alcohol or drug abuse patient.[facility] HospitalIn the event this information is protected by the Federal Confidentiality of Alcohol and Drug Abuse Patient Records regulations: The Federal rules restrict any use of the information to criminally investigate or prosecute any alcohol or drug abuse patient.[facility] HospitalIn the event this information is protected by the Federal Confidentiality of Alcohol and Drug Abuse Patient Records regulations: The Federal rules restrict any use of the information to criminally investigate or prosecute any alcohol or drug abuse patient.[facility] HospitalIn the event this information is protected by the Federal Confidentiality of Alcohol and Drug Abuse Patient Records regulations: The Federal rules restrict any use of the information to criminally investigate or prosecute any alcohol or drug abuse patient.[facility] HospitalIn the event this information is protected by the Federal Confidentiality of Alcohol and Drug Abuse Patient Records regulations: The Federal rules restrict any use of the information to criminally investigate or prosecute any alcohol or drug abuse patient.[facility] HospitalIn the event this information is protected by the Federal Confidentiality of Alcohol and Drug Abuse Patient Records regulations: The Federal rules restrict any use of the information to criminally investigate or prosecute any alcohol or drug abuse patient.[facility] HospitalIn the event this information is protected by the Federal Confidentiality of Alcohol and Drug Abuse Patient Records regulations: The Federal rules restrict any use of the information to criminally investigate or prosecute any alcohol or drug abuse patient.[facility] HospitalIn the event this information is protected by the Federal Confidentiality of Alcohol and Drug Abuse Patient Records regulations: The Federal rules restrict any use of the information to criminally investigate or prosecute any alcohol or drug abuse patient.[facility] HospitalIn the event this information is protected by the Federal Confidentiality of Alcohol and Drug Abuse Patient Records regulations: The Federal rules restrict any use of the information to criminally investigate or prosecute any alcohol or drug abuse patient.[facility] HospitalIn the event this information is protected by the Federal Confidentiality of Alcohol and Drug Abuse Patient Records regulations: The Federal rules restrict any use of the information to criminally investigate or prosecute any alcohol or drug abuse patient.[facility] HospitalIn the event this information is protected by the Federal Confidentiality of Alcohol and Drug Abuse Patient Records regulations: The Federal rules restrict any use of the information to criminally investigate or prosecute any alcohol or drug abuse patient.[facility] HospitalIn the event this information is protected by the Federal Confidentiality of Alcohol and Drug Abuse Patient Records regulations: The Federal rules restrict any use of the information to criminally investigate or prosecute any alcohol or drug abuse patient.[facility] HospitalIn the event this information is protected by the Federal Confidentiality of Alcohol and Drug Abuse Patient Records regulations: The Federal rules restrict any use of the information to criminally investigate or prosecute any alcohol or drug abuse patient.[facility] HospitalIn the event this information is protected by the Federal Confidentiality of Alcohol and Drug Abuse Patient Records regulations: The Federal rules restrict any use of the information to criminally investigate or prosecute any alcohol or drug abuse patient.[facility] HospitalIn the event this information is protected by the Federal Confidentiality of Alcohol and Drug Abuse Patient Records regulations: The Federal rules restrict any use of the information to criminally investigate or prosecute any alcohol or drug abuse patient.[facility] HospitalIn the event this information is protected by the Federal Confidentiality of Alcohol and Drug Abuse Patient Records regulations: The Federal rules restrict any use of the information to criminally investigate or prosecute any alcohol or drug abuse patient.[facility] HospitalIn the event this information is protected by the Federal Confidentiality of Alcohol and Drug Abuse Patient Records regulations: The Federal rules restrict any use of the information to criminally investigate or prosecute any alcohol or drug abuse patient.[facility] HospitalIn the event this information is protected by the Federal Confidentiality of Alcohol and Drug Abuse Patient Records regulations: The Federal rules restrict any use of the information to criminally investigate or prosecute any alcohol or drug abuse patient.[facility] HospitalIn the event this information is protected by the Federal Confidentiality of Alcohol and Drug Abuse Patient Records regulations: The Federal rules restrict any use of the information to criminally investigate or prosecute any alcohol or drug abuse patient.[facility] HospitalIn the event this information is protected by the Federal Confidentiality of Alcohol and Drug Abuse Patient Records regulations: The Federal rules restrict any use of the information to criminally investigate or prosecute any alcohol or drug abuse patient.[facility] HospitalIn the event this information is protected by the Federal Confidentiality of Alcohol and Drug Abuse Patient Records regulations: The Federal rules restrict any use of the information to criminally investigate or prosecute any alcohol or drug abuse patient.[facility] HospitalIn the event this information is protected by the Federal Confidentiality of Alcohol and Drug Abuse Patient Records regulations: The Federal rules restrict any use of the information to criminally investigate or prosecute any alcohol or drug abuse patient.[facility] HospitalIn the event this information is protected by the Federal Confidentiality of Alcohol and Drug Abuse Patient Records regulations: The Federal rules restrict any use of the information to criminally investigate or prosecute any alcohol or drug abuse patient.[facility] HospitalIn the event this information is protected by the Federal Confidentiality of Alcohol and Drug Abuse Patient Records regulations: The Federal rules restrict any use of the information to criminally investigate or prosecute any alcohol or drug abuse patient.[facility] HospitalIn the event this information is protected by the Federal Confidentiality of Alcohol and Drug Abuse Patient Records regulations: The Federal rules restrict any use of the information to criminally investigate or prosecute any alcohol or drug abuse patient.[facility] HospitalIn the event this information is protected by the Federal Confidentiality of Alcohol and Drug Abuse Patient Records regulations: The Federal rules restrict any use of the information to criminally investigate or prosecute any alcohol or drug abuse patient.[facility] HospitalIn the event this information is protected by the Federal Confidentiality of Alcohol and Drug Abuse Patient Records regulations: The Federal rules restrict any use of the information to criminally investigate or prosecute any alcohol or drug abuse patient.[facility] HospitalIn the event this information is protected by the Federal Confidentiality of Alcohol and Drug Abuse Patient Records regulations: The Federal rules restrict any use of the information to criminally investigate or prosecute any alcohol or drug abuse patient.[facility] HospitalIn the event this information is protected by the Federal Confidentiality of Alcohol and Drug Abuse Patient Records regulations: The Federal rules restrict any use of the information to criminally investigate or prosecute any alcohol or drug abuse patient.[facility] HospitalIn the event this information is protected by the Federal Confidentiality of Alcohol and Drug Abuse Patient Records regulations: The Federal rules restrict any use of the information to criminally investigate or prosecute any alcohol or drug abuse patient.[facility] HospitalIn the event this information is protected by the Federal Confidentiality of Alcohol and Drug Abuse Patient Records regulations: The Federal rules restrict any use of the information to criminally investigate or prosecute any alcohol or drug abuse patient.[facility] HospitalIn the event this information is protected by the Federal Confidentiality of Alcohol and Drug Abuse Patient Records regulations: The Federal rules restrict any use of the information to criminally investigate or prosecute any alcohol or drug abuse patient.[facility] HospitalIn the event this information is protected by the Federal Confidentiality of Alcohol and Drug Abuse Patient Records regulations: The Federal rules restrict any use of the information to criminally investigate or prosecute any alcohol or drug abuse patient.[facility] HospitalIn the event this information is protected by the Federal Confidentiality of Alcohol and Drug Abuse Patient Records regulations: The Federal rules restrict any use of the information to criminally investigate or prosecute any alcohol or drug abuse patient.[facility] HospitalIn the event this information is protected by the Federal Confidentiality of Alcohol and Drug Abuse Patient Records regulations: The Federal rules restrict any use of the information to criminally investigate or prosecute any alcohol or drug abuse patient.[facility] ClinicIn the event this information is protected by the Federal Confidentiality of Alcohol and Drug Abuse Patient Records regulations: The Federal rules restrict any use of the information to criminally investigate or prosecute any alcohol or drug abuse patient.[facility] HospitalIn the event this information is protected by the Federal Confidentiality of Alcohol and Drug Abuse Patient Records regulations: The Federal rules restrict any use of the information to criminally investigate or prosecute any alcohol or drug abuse patient.[facility] HospitalIn the event this information is protected by the Federal Confidentiality of Alcohol and Drug Abuse Patient Records regulations: The Federal rules restrict any use of the information to criminally investigate or prosecute any alcohol or drug abuse patient.[facility] HospitalIn the event this information is protected by the Federal Confidentiality of Alcohol and Drug Abuse Patient Records regulations: The Federal rules restrict any use of the information to criminally investigate or prosecute any alcohol or drug abuse patient.[facility] HospitalIn the event this information is protected by the Federal Confidentiality of Alcohol and Drug Abuse Patient Records regulations: The Federal rules restrict any use of the information to criminally investigate or prosecute any alcohol or drug abuse patient.[facility] FOR RECORDS PERTAINING TO PATIENTS WHO ARE OR HAVE BEEN ENROLLED IN A CHEMICAL DEPENDENCY/SUBSTANCEABUSE PROGRAM, SOME INFORMATION MAY BE OMITTED. This clinical summary was aggregated from multiple sources. Caution should be exercised in using it in the provision of clinical care. This summary normalizes information from multiple sources, and as a consequence, information in this document may materially change the coding, format and clinical context of patient data. In addition, data may be omitted in some cases. CLINICAL DECISIONS SHOULD BE BASED ON THE PRIMARY CLINICAL RECORDS. [facility] [employer] [facility] provides no warranty or guarantee of the accuracy or completeness of information in this document.
[2024-03-18] MEDS: 0.9 % SODIUM CHLORIDE 1,000 ML 100 ML IV ×2 (05:03→17:18)
[2024-03-18 06:39] LABS: Basophils Percent Auto 0.2 % (0.2-2.0); Eosinophils Percent Auto 0.3 % (0.9-7.0); Hematocrit 43.3 % (42.0-54.0); Hemoglobin 14.3 g/dL (14.0-18.0); Immature Granulocytes Abs Auto 0.03 10^3/uL (0.00-0.03); Immature Granulocytes Pct Auto 0.3 % (0.0-0.5); Lymphocytes Absolute Auto 2.7 10^3/uL (1.2-3.8); Lymphocytes Percent Auto 23.1 % (20.5-60.0); Mean Corpuscular Hemoglobin 30.7 pg (25.9-34.0); Mean Corpuscular Volume 92.9 fL (80.0-94.0); Mean Platelet Volume 9.4 fL (9.5-13.5); Monocytes Absolute Auto 1.2 10^3/uL (0.3-0.8); Neutrophils Absolute Auto 7.7 10^3/uL (1.4-6.5); Neutrophils Percent Auto 66.1 % (43.0-75.0); Platelet Count 239 10^3/uL (150-450); Red Blood Count 4.66 10^6/uL (4.70-6.10); Red Cell Distribution Width 12.5 % (11.0-15.0); White Blood Count 11.7 10^3/uL (4.0-11.0)
[2024-03-18 06:53] LABS: Alanine Aminotransferase 15 U/L (16-63); Albumin Globulin Ratio 1.1; Albumin Level 3.6 g/dL (3.4-5.0); Alkaline Phosphatase 88 U/L (46-116); Anion Gap 12.2; Aspartate Amino Transferase 11 U/L (15-37); BUN Creatinine Ratio 13.9; Bilirubin Total 1.3 mg/dL (0.2-1.0); Calcium 9.8 mg/dL (8.5-10.1); Chloride 102 mmol/L (98-107); Estimated GFR (African America 49 (>=60); Estimated GFR (Non-African Ame 41 (>=60); Globulin 3.4 g/dL; Glucose 118 mg/dL (74-106); Potassium 4.2 mmol/L (3.5-5.1); Sodium 137 mmol/L (136-145)
--- NOTE | 2024-03-18 08:15 | FL_ITS ---
The [address] [address] Patient Name: VANDANA NASCIMENTO MRN: [id number] date: 1965 Sex: M Assigned Patient Location: MS Current Patient Location: Accession/Order Number: [id number] Exam Date: 03/18/2024 12:00 Report Date: 03/18/2024 15:58 At the request of: JORDIN OLIVARES Procedure: FL small bowel PROCEDURE: FL small bowel, 03/18/2024 12:00 PM EDT CLINICAL INDICATIONS: Small bowel obstruction COMPARISON: CT abdomen and pelvis 03/29/2024, abdomen 05/23/2023 TECHNIQUE: No fluoroscopy or fluoroscopic images were utilized for this examination. Patient ingested 90 mL of Gastrografin with sequential delayed images at 1 hour, 1.5 hours, 2 hours, 4 hours post injection. FINDINGS: Nasogastric tube overlies the lateral gastric fundic level. Severe small bowel distention noted. Jejunal small bowel up to 6.4 cm. There is a paucity gas throughout nondistended colon. Inferior vena caval filter present cephalic aspect lower L2 vertebral level. Left common iliac, external iliac vascular stent noted. Contrast accumulates within the gastric fundus throughout the examination. Minimal dilute contrast identified within proximal jejunal levels at 4 hours. FL/FL small bowel IMPRESSION: 1. Nasogastric tube, lateral gastric fundus 2. Severe small bowel distention, paucity of gas throughout the colon. Small bowel obstruction favored. 3. Ingested oral contrast remains in the gastric fundus throughout the examination up to 4 hours. At 4 hours small amount of dilute contrast identified within distended proximal small bowel. High-grade small bowel obstruction is favored. Primary surgical service requests follow-up abdominal evaluation in the a.m. tomorrow. Electronically authenticated by: ABIMAEL CEDENO Date: 03/18/2024 15:58
--- NOTE | 2024-03-18 08:15 | PM.GSCN ---
History of Present Illness Consult details Consult date: 03/18/24 Reason for consult: abdominal pain Narrative: 59 yo M with extensive past medical Hx including kidney transplant (2019 at [facility], on prednisone, tacrolimus, mycophenolate), DVT (on eliquis), seizure disorder (on lamotrigine), presents with 3 day abdominal discomfort and increased swelling. Pt states he had emesis yesterday which prompted him to come in. He has had this happen once before last May and was managed conservatively with NGT decompression. He denies any blood in his emesis, He states he did have a non bloody formed BM when he was in the ER. His distention has improved since NGT placement. Denies any current f/c, sob or chest pains. discussed with him the plan of SBFT and discussion of plan moving forward once that exam has resulted. 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-10) Seizures ?R56.9 - Unspecified convulsions (ICD-10) Surgical History (Updated 03/18/24 @ 09:34 by Wenceslao Beck MD) Presence of IVC filter ?Z95.828 - Presence of other vascular implants and grafts (ICD-10) S/P insertion of iliac artery stent ?Z95.828 - Presence of other vascular implants and grafts (ICD-10) H/O craniotomy ?Z98.890 - Other specified postprocedural states (ICD-10) History of appendectomy ?Z90.49 - Acquired absence of other specified parts of digestive tract (ICD-10) History of hernia repair ?Z98.890 - Other specified postprocedural states (ICD-10) ?Z87.19 - Personal history of other diseases of the digestive system (ICD-10) Family History (Updated 05/21/23 @ 22:43 by Maryana King) Father Family history of cancer Family history of hypertension Mother Family history of COPD (chronic obstructive pulmonary disease) Social History (Updated 05/21/23 @ 22:45 by Maryana King) Within the past year, how often did you have a drink containing alcohol: never Within the past year, how often did you have six or more drinks on one occasion: never Score interpretation: A score less than 4 is consistent with normal alcohol consumption. Smoking status: Never smoker Second hand tobacco smoke exposure: No Non-prescribed substance use: denies use Previous occupational history: [employer] Known occupational exposures/hazards: No Highest level of school completed/degree received: Bachelor's degree Do you want help with school or training: No Are you now , , , , never or living with a partner: In a typical week, how many times do you talk on the telephone with family, friends, or neighbors: 3 or more times per week How often do you get together with friends or relatives: 3 or more times per week How often do you attend shinto or mormon services: 4 or more times per year Do you belong to any clubs or organizations such as shinto groups unions, fraternal or athletic groups, or school groups: no Total score: 3 Score interpretation: A score of greater than or equal to 2 indicates the lowest level of social isolation. Little interest or pleasure in doing things: not at all Feeling down, depressed, or hopeless: not at all Feel stressed/tense/nervous/anxious/difficulty sleeping: not at all Due to disability, difficulty making decisions: No Do you think of yourself as: straight/heterosexual Gender Identity: male Meds Home Medications and Allergies Home Medications ?Medication ?Instructions ?Recorded ?Confirmed ?Type apixaban 5 mg tablet (Eliquis) 5 mg PO Q12H 05/21/23 03/18/24 History atorvastatin 10 mg tablet 10 mg PO DAILY 05/21/23 03/18/24 History lacosamide 100 mg tablet 250 mg PO Q12H 05/21/23 03/18/24 History lamotrigine 100 mg tablet 300 mg PO Q12H 05/21/23 03/18/24 History levothyroxine 125 mcg tablet 125 mcg PO DAILY 05/21/23 03/18/24 History (Synthroid) mycophenolate mofetil 250 mg 750 mg PO Q12H 05/21/23 03/18/24 History capsule prednisone 5 mg tablet 5 mg PO DAILY 05/21/23 03/18/24 History tacrolimus 1 mg tablet,extended 3 mg PO DAILY 05/22/23 03/18/24 History release 24 hr (Envarsus XR) pantoprazole 40 mg tablet,delayed 40 mg PO DAILY 03/18/24 03/18/24 History release Allergies Allergy/AdvReac Type Severity Reaction Status Date / Time phenytoin [From Dilantin] Allergy Severe Verified 03/17/24 20:43 kepra AdvReac Intermediate Agitated Uncoded 03/17/24 20:43 Exam Constitutional Vital Signs, click to edit/add: Last Vital Signs Temp 98.4 F 03/18/24 04:23 Pulse 77 03/18/24 04:23 Resp 20 03/18/24 04:23 BP 157/92 H 03/18/24 04:23 Pulse Ox 92 L 03/18/24 04:23 O2 Del Method Room Air 03/18/24 04:23 Common normals: oriented x3, alert and well nourished [facility] Common normals: normocephalic Head and scalp: atraumatic Eye Common normals: PERRL and EOMs intact bilaterally Respiratory Common normals: normal respiratory effort and no retractions Cardio Common normals: regular rate and regular rhythm GI Palpation: soft Other: mild tenderness throughout, no rebound, non peritoneal, no guarding, mild distention but improved per patient since NGT decompression Extremity Common normals: normal to inspection and full ROM Neuro Sensorium/orientation: awake and alert Speech: speech normal Psych Appearance: grossly normal and well kempt Results Labs Labs: Abnormal lab results 03/17/24 03/18/24 03/18/24 Range/Units 22:23 00:00 06:11 WBC 11.7 H (4.0-11.0) 10^3/uL RBC 4.66 L (4.70-6.10) 10^6/uL MPV 9.3 L 9.4 L (9.5-13.5) fL Eos % (Auto) 0.3 L 0.3 L (0.9-7.0) % Neut # (Auto) 7.7 H (1.4-6.5) 10^3/uL Gladwin # (Auto) 0.9 H 1.2 H (0.3-0.8) 10^3/uL BUN 23.0 H 24.0 H (7.0-18.0) mg/dL Creatinine 1.75 H 1.73 H (0.70-1.30) mg/dL Est GFR ( Amer) 49 L 49 L (>=60) Est GFR (Non-Af Amer) 40 L 41 L (>=60) Glucose 120 H 118 H (74-106) mg/dL Calcium 10.2 H (8.5-10.1) mg/dL Total Bilirubin 1.3 H (0.2-1.0) mg/dL AST 11 L (15-37) U/L ALT 15 L (16-63) U/L Urine Protein 30 A (NEG/TRACE) mg/dL Urine Mucus Trace A (NONE SEEN) Diabetes panel 03/17/24 03/18/24 Range/Units 22:23 06:11 Sodium 137 137 (136-145) mmol/L Potassium 4.2 4.2 (3.5-5.1) mmol/L Chloride 100 102 (98-107) mmol/L Carbon Dioxide 27.2 27.0 (21.0-32.0) mmol/L BUN 23.0 H 24.0 H (7.0-18.0) mg/dL Creatinine 1.75 H 1.73 H (0.70-1.30) mg/dL Glucose 120 H 118 H (74-106) mg/dL Calcium 10.2 H 9.8 (8.5-10.1) mg/dL AST 11 L (15-37) U/L ALT 15 L (16-63) U/L Alkaline Phosphatase 88 (46-116) U/L Total Protein 7.0 (6.4-8.2) g/dL Albumin 3.6 (3.4-5.0) g/dL Calcium panel 03/17/24 03/18/24 Range/Units 22:23 06:11 Calcium 10.2 H 9.8 (8.5-10.1) mg/dL Albumin 3.6 (3.4-5.0) g/dL Pituitary panel 03/17/24 03/18/24 Range/Units 22:23 06:11 Sodium 137 137 (136-145) mmol/L Potassium 4.2 4.2 (3.5-5.1) mmol/L Chloride 100 102 (98-107) mmol/L Carbon Dioxide 27.2 27.0 (21.0-32.0) mmol/L BUN 23.0 H 24.0 H (7.0-18.0) mg/dL Creatinine 1.75 H 1.73 H (0.70-1.30) mg/dL Glucose 120 H 118 H (74-106) mg/dL Calcium 10.2 H 9.8 (8.5-10.1) mg/dL Adrenal panel 03/17/24 03/18/24 Range/Units 22:23 06:11 Sodium 137 137 (136-145) mmol/L Potassium 4.2 4.2 (3.5-5.1) mmol/L Chloride 100 102 (98-107) mmol/L Carbon Dioxide 27.2 27.0 (21.0-32.0) mmol/L BUN 23.0 H 24.0 H (7.0-18.0) mg/dL Creatinine 1.75 H 1.73 H (0.70-1.30) mg/dL Glucose 120 H 118 H (74-106) mg/dL Calcium 10.2 H 9.8 (8.5-10.1) mg/dL Total Bilirubin 1.3 H (0.2-1.0) mg/dL AST 11 L (15-37) U/L ALT 15 L (16-63) U/L Alkaline Phosphatase 88 (46-116) U/L Total Protein 7.0 (6.4-8.2) g/dL Albumin 3.6 (3.4-5.0) g/dL All other labs normal. Imaging Abdomen CT scan report/results: image reviewed Assessment and Plan Assessment and Plan (1) Small bowel obstruction: Assessment and Plan: 1. NGT to LIWS, monitor bowel function 2. STAT small bowel follow through ordered, await final read for further plans 3. Ok to give contrast via ngt and keep clamp. Ok for and pt encouraged to ambulate/ sit up in chair as tolerated 4. Appreciate medical management per medicine, hold AC at this time (2) Kidney transplanted: (3) HTN (hypertension): (4) Seizure disorder: (5) CKD stage 3b, GFR 30-44 ml/min: (6) History of DVT (deep vein thrombosis):
--- NOTE | 2024-03-18 09:16 | PC.NURSE ---
Casi in Xray notified of stat Xray for pt...states she is busy in ER and may have to call someone else in to help Just wanted dept to be aware that xray was ordered STAT an hour ago.
[2024-03-18] MEDS: LAMOTRIGINE 100 MG TABLET 300 MG PO ×2 (10:46→21:30)
[2024-03-18] MEDS: METOPROLOL TARTRATE 25 MG TABLET 12.5 MG PO ×2 (10:47→21:30)
[2024-03-18] MEDS: PREDNISONE 5 MG TABLET PO (10:47)
[2024-03-18] MEDS: APIXABAN 5 MG TABLET PO ×2 (10:48→21:31)
[2024-03-18] MEDS: LACOSAMIDE 50 MG TABLET 250 MG PO ×2 (10:48→21:46)
--- NOTE | 2024-03-18 11:46 | P.HP_ITS ---
HPI H&P: HPI History of Present Illness Chief complaint: Nausea/Vomiting/Diarrhea Small Bowell Obstruction Narrative: 59 y/o male with history of kidney transplant presents to ER with abdominal pain. Developed nausea and vomiting day prior. Day of admission mild diarrhea. Increased pain in lower abdomen and concerned for SBO which he had in past. To ER WBC normal. CT showed SBO and NG placed. Admitted for treatment. General surgery consulted. Decreased output from NG overnight. Reports abdomen not as painful or distended. NG currently clamped and no nausea. Opioid HPI Opioid Management Most Recent Opioid Data: Last Pain Scale 4 03/18/24 11:00 Last Pain Assessment 03/18/24 11:00 Last ORT Total Score 0 03/18/24 04:23 Last ORT Risk Category Low Risk 03/18/24 04:23 Review of Systems ROS Constitutional Denies: fever, chills or fatigue Cardiovascular Denies: chest pain, palpitations or edema Respiratory Denies: shortness of breath, cough or wheezing Gastrointestinal Reports: abdominal pain, nausea, vomiting and diarrhea Genitourinary Denies: painful urination PFSH [facility] Medical History (Updated 03/18/24 @ 09:34 by Wenceslao Beck MD) Collapse of left lung ?J98.11 - Atelectasis (ICD-10) Hyperlipemia ?E78.5 - Hyperlipidemia, unspecified (ICD-10) Hypothyroid ?E03.9 - Hypothyroidism, unspecified (ICD-10) DVT (deep venous thrombosis) ?I82.409 - Acute embolism and thrombosis of unspecified deep veins of un specified lower extremity (ICD-10) 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-10) Seizures ?R56.9 - Unspecified convulsions (ICD-10) Surgical History (Updated 03/18/24 @ 09:34 by Wenceslao Beck MD) Presence of IVC filter ?Z95.828 - Presence of other vascular implants and grafts (ICD-10) S/P insertion of iliac artery stent ?Z95.828 - Presence of other vascular implants and grafts (ICD-10) H/O craniotomy ?Z98.890 - Other specified postprocedural states (ICD-10) History of appendectomy ?Z90.49 - Acquired absence of other specified parts of digestive tract (ICD- 10) History of hernia repair ?Z98.890 - Other specified postprocedural states (ICD-10) ?Z87.19 - Personal history of other diseases of the digestive system (ICD-10) Family History (Updated 05/21/23 @ 22:43 by Maryana King) Father Family history of cancer Family history of hypertension Mother Family history of COPD (chronic obstructive pulmonary disease) Social History (Updated 05/21/23 @ 22:45 by Maryana King) Within the past year, how often did you have a drink containing alcohol: never Within the past year, how often did you have six or more drinks on one occasion: never Score interpretation: A score less than 4 is consistent with normal alcohol consumption. 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 Known occupational exposures/hazards: No Highest level of school completed/degree received: Bachelor's degree Do you want help with school or training: No Are you now , , , , never or living with a partner: In a typical week, how many times do you talk on the telephone with family, friends, or neighbors: 3 or more times per week How often do you get together with friends or relatives: 3 or more times per week How often do you attend druze or rastafari services: 4 or more times per year Do you belong to any clubs or organizations such as druze groups unions, fraternal or athletic groups, or school groups: no Total score: 3 Score interpretation: A score of greater than or equal to 2 indicates the lowest level of social isolation. Little interest or pleasure in doing things: not at all Feeling down, depressed, or hopeless: not at all Feel stressed/tense/nervous/anxious/difficulty sleeping: not at all Due to disability, difficulty making decisions: No Do you think of yourself as: straight/heterosexual Gender Identity: male Meds Home Medications and Allergies Home Medications ?Medication ?Instructions ?Recorded ?Confirmed ?Type apixaban 5 mg tablet (Eliquis) 5 mg PO Q12H 05/21/23 03/18/24 History atorvastatin 10 mg tablet 10 mg PO DAILY 05/21/23 03/18/24 History lacosamide 100 mg tablet 250 mg PO Q12H 05/21/23 03/18/24 History lamotrigine 100 mg tablet 300 mg PO Q12H 05/21/23 03/18/24 History levothyroxine 125 mcg tablet 125 mcg PO DAILY 05/21/23 03/18/24 History (Synthroid) mycophenolate mofetil 250 mg 750 mg PO Q12H 05/21/23 03/18/24 History capsule prednisone 5 mg tablet 5 mg PO DAILY 05/21/23 03/18/24 History tacrolimus 1 mg tablet,extended 3 mg PO DAILY 05/22/23 03/18/24 History release 24 hr (Envarsus XR) pantoprazole 40 mg tablet,delayed 40 mg PO DAILY 03/18/24 03/18/24 History release Allergies Allergy/AdvReac Type Severity Reaction Status Date / Time phenytoin [From Dilantin] Allergy Severe Verified 03/17/24 20:43 kepra AdvReac Intermediate Agitated Uncoded 03/17/24 20:43 Exam Constitutional Vital Signs, click to edit/add: Last Vital Signs Temp 98.4 F 03/18/24 04:23 Pulse 77 03/18/24 04:23 Resp 20 03/18/24 04:23 BP 157/92 H 03/18/24 04:23 Pulse Ox 92 L 03/18/24 04:23 O2 Del Method Room Air 03/18/24 04:23 Documenting provider has reviewed patient's vital signs: yes Common normals: no apparent distress, oriented x3 and alert HENMT Common normals: normocephalic Eye Common normals: PERRL and EOMs intact bilaterally Respiratory Common normals: normal respiratory effort and clear to auscultation bilaterally Cardio Common normals: regular rate, regular rhythm, no gallops, no murmurs and no rub GI Auscultation: hypoactive bowel sounds Palpation: tender (Mild diffuse TTP); no guarding Extremity Common normals: no pedal edema Results Labs Labs: Short CBC 03/17/24 03/18/24 Range/Units 22:23 06:11 WBC 9.8 11.7 H (4.0-11.0) 10^3/uL Hgb 15.1 14.3 (14.0-18.0) g/dL Hct 45.0 43.3 (42.0-54.0) % Plt Count 224 239 (150-450) 10^3/uL BMP 03/17/24 03/18/24 22:23 06:11 Sodium 137 137 Potassium 4.2 4.2 Chloride 100 102 Carbon Dioxide 27.2 27.0 BUN 23.0 H 24.0 H Creatinine 1.75 H 1.73 H Glucose 120 H 118 H Calcium 10.2 H 9.8 Liver Function 03/18/24 Range/Units 06:11 Total Bilirubin 1.3 H (0.2-1.0) mg/dL AST 11 L (15-37) U/L ALT 15 L (16-63) U/L Alkaline Phosphatase 88 (46-116) U/L Albumin 3.6 (3.4-5.0) g/dL Urine 03/18/24 Range/Units 00:00 Urine Color Yellow (YELLOW) Urine Clarity Clear (CLEAR) Urine pH 7.5 (5.0-9.0) Ur Specific [place] 1.020 (1.005-1.025) Urine Protein 30 A (NEG/TRACE) mg/dL Urine Glucose (UA) Negative (NEGATIVE) mg/dL Assessment and Plan Assessment and Plan (1) Small bowel obstruction: (2) Kidney transplanted: (3) HTN (hypertension): (4) Seizure disorder: (5) CKD stage 3b, GFR 30-44 ml/min: (6) History of DVT (deep vein thrombosis): Plan Presented with SBO and NG placed. General surgery consulted and managing. X- ray small bowel ordered and will assess passage of contrast. NG clamped and can clamp to give home medication. Use hydralazine PRN for BP. Monitor vitals and labs.
[2024-03-18] MEDS: NON-FORMULARY 1 EACH (Mycophenolate Mofetil 250 mg capsule) 750 EACH PO ×2 (13:51→21:32)
[2024-03-18] MEDS: TACROLIMUS 1 MG 3 EACH PO (13:54)
[2024-03-18] MEDS: ONDANSETRON PF 4 MG/2 ML VIAL IV ×2 (15:47→21:32)
--- NOTE | 2024-03-18 16:03 | PC.NURSE ---
Dr Roberts updated on pt condition. Abdomen remains distended with hypoactive bowel sounds. pt has no nausea or real pain but states I'm not really having pain, it's that I'm just feeling a lot of cramping in my stomach! requests Zofran to be given because it helped in the ER last night. Dose given. Orders received for pain meds and additional scans
--- NOTE | 2024-03-18 20:00 | XR_ITS ---
The [address] [address] Patient Name: VANDANA NASCIMENTO MRN: [id number] date: 1965 Sex: M Assigned Patient Location: [place] Current Patient Location: [place] Accession/Order Number: [id number] Exam Date: 03/18/2024 20:05 Report Date: 03/18/2024 20:50 At the request of: JORDIN OLIVARES Procedure: XR abdomen 1V EXAM: XR abdomen 1V HISTORY: bowel obstruction COMPARISON: CT abdomen and pelvis 03/17/2024 TECHNIQUE: 2 AP radiographs of the abdomen and pelvis FINDINGS: Enteric tube with tip and side port projecting over the expected location of the gastric fundus. Lung bases are clear. Multiple air-filled loops of prominent small and large bowel are noted projecting over the abdomen. An IVC filter is incidentally noted. Partially imaged left iliac stent. XR/XR abdomen 1V IMPRESSION: Appropriately positioned enteric tube. Dilated air-filled loops of bowel projecting over the abdomen appears similar to prior. Electronically authenticated by: JESUS DAVIDSON Date: 03/18/2024 20:50
[2024-03-18] MEDS: HYDRALAZINE HCL 20 MG/ML VIAL 10 MG IVP (21:31)
[2024-03-19] MEDS: 0.9 % SODIUM CHLORIDE 1,000 ML 100 ML IV ×2 (00:54→16:23)
[2024-03-19 04:28] VITALS: BP 155/90; PULSE 73; TEMP 37.6; O2SAT 93
--- NOTE | 2024-03-19 05:00 | XR_ITS ---
The [address] [address] Patient Name: VANDANA NASCIMENTO MRN: [id number] date: 1965 Sex: M Assigned Patient Location: MS Current Patient Location: [place] Accession/Order Number: [id number] Exam Date: 03/19/2024 05:08 Report Date: 03/19/2024 06:49 At the request of: JORDIN OLIVARES Procedure: XR abdomen 1V EXAMINATION: XR abdomen 1V HISTORY: bowel obstruction r COMPARISON: No relevant comparison available. FINDINGS: BOWEL GAS PATTERN: Nasogastric tube with tip in fundus of stomach; side port is well below the gastroesophageal junction. Air distended loops of small bowel within the mid and upper abdomen up to 5.4 cm in diameter. CALCIFICATIONS: None significant. OTHER: Within IVC. Endovascular stent within left common iliac artery. XR/XR abdomen 1V IMPRESSION: 1. Nasogastric tube in good position. 2. Abnormally distended small bowel; ileus versus obstruction; not significantly changed. Electronically authenticated by: ALVIN BELTRÁN Date: 03/19/2024 06:49
[2024-03-19 05:09] LABS: Basophils Percent Auto 0.2 % (0.2-2.0); Eosinophils Absolute Auto 0.1 10^3/uL (0.0-0.7); Eosinophils Percent Auto 0.6 % (0.9-7.0); Hematocrit 41.4 % (42.0-54.0); Hemoglobin 13.6 g/dL (14.0-18.0); Immature Granulocytes Abs Auto 0.03 10^3/uL (0.00-0.03); Immature Granulocytes Pct Auto 0.3 % (0.0-0.5); Lymphocytes Absolute Auto 3.3 10^3/uL (1.2-3.8); Lymphocytes Percent Auto 31.5 % (20.5-60.0); Mean Corpuscular HGB Conc 32.9 g/dL (29.9-35.2); Mean Corpuscular Hemoglobin 30.7 pg (25.9-34.0); Mean Corpuscular Volume 93.5 fL (80.0-94.0); Mean Platelet Volume 9.4 fL (9.5-13.5); Monocytes Percent Auto 9.7 % (1.7-12.0); Neutrophils Absolute Auto 6.1 10^3/uL (1.4-6.5); Neutrophils Percent Auto 57.7 % (43.0-75.0); Platelet Count 219 10^3/uL (150-450); Red Blood Count 4.43 10^6/uL (4.70-6.10); Red Cell Distribution Width 12.3 % (11.0-15.0); White Blood Count 10.6 10^3/uL (4.0-11.0)
[2024-03-19 05:31] LABS: Alanine Aminotransferase 14 U/L (16-63); Albumin Globulin Ratio 0.9; Albumin Level 3.1 g/dL (3.4-5.0); Alkaline Phosphatase 81 U/L (46-116); Anion Gap 11.2; Aspartate Amino Transferase 14 U/L (15-37); Bilirubin Total 1.3 mg/dL (0.2-1.0); Calcium 9.4 mg/dL (8.5-10.1); Carbon Dioxide 28.8 mmol/L (21.0-32.0); Chloride 102 mmol/L (98-107); Estimated GFR (African America 54 (>=60); Estimated GFR (Non-African Ame 45 (>=60); Globulin 3.6 g/dL; Glucose 103 mg/dL (74-106); Sodium 138 mmol/L (136-145); Total Protein 6.7 g/dL (6.4-8.2)
[2024-03-19] MEDS: LEVOTHYROXINE SODIUM 125 MCG TABLET PO (05:42)
[2024-03-19] MEDS: OMEPRAZOLE 40 MG CAPSULE.DR PO (05:42)
[2024-03-19] MEDS: LAMOTRIGINE 100 MG TABLET 300 MG PO ×2 (08:56→21:08)
[2024-03-19] MEDS: METOPROLOL TARTRATE 25 MG TABLET 12.5 MG PO (08:56)
[2024-03-19] MEDS: ATORVASTATIN CALCIUM 10 MG TABLET PO (08:56)
[2024-03-19] MEDS: APIXABAN 5 MG TABLET PO ×2 (08:56→21:08)
[2024-03-19] MEDS: PREDNISONE 5 MG TABLET PO (08:57)
[2024-03-19] MEDS: LACOSAMIDE 50 MG TABLET 250 MG PO ×2 (08:57→21:11)
[2024-03-19] MEDS: NON-FORMULARY 1 EACH (Mycophenolate Mofetil 250 mg capsule) 750 EACH PO ×2 (08:59→21:09)
[2024-03-19] MEDS: TACROLIMUS 1 MG 3 EACH PO (09:00)
[2024-03-19 09:04] VITALS: BP 149/84; PULSE 72; TEMP 36.7; O2SAT 91
--- NOTE | 2024-03-19 09:22 | PM.GSPN ---
Progress Note: A&P Assessment and Plan (1) Small bowel obstruction: Assessment and Plan: Pt with no progression of oral contrast after 24 hrs for SBFT exam. Discussed with patient the increased concerns and likely need for surgical intervention. Given his recent kidney transplant and need for continued immunotherapy the patient would be best served at a transplant center that has the necessary supporting teams. Discussed with primary service on need for transfer. Cont NGT to LIWS, gaol K+ 4.0, Mg 2.0 encourage ambulation/activity (2) Kidney transplanted: (3) HTN (hypertension): (4) Seizure disorder: (5) CKD stage 3b, GFR 30-44 ml/min: (6) History of DVT (deep vein thrombosis): Subjective Subjective Interval history: Patient doing ok this am, however still has nausea and feels distended. Denies any emesis but did need to be hooked back up to suction. NGT with 2L out of dark green fluid. Denies any current f/c, sob or chest pain. Pt does feel he may have passed some gas but denies any BMs and still feels bloated. He is sitting up in chair throughout the day. Exam Constitutional Vital Signs, click to edit/add: Last Vital Signs Temp 98.1 F 03/19/24 09:04 Pulse 72 03/19/24 09:04 Resp 16 03/19/24 09:05 BP 149/84 H 03/19/24 09:04 Pulse Ox 91 L 03/19/24 09:04 O2 Del Method Room Air 03/19/24 09:04 Common normals: no apparent distress and alert HENGA Common normals: normocephalic Head and scalp: atraumatic Eye Common normals: PERRL and EOMs intact bilaterally Respiratory Common normals: normal respiratory effort and no retractions GI Other: soft, mild distention, no rebound, non peritoneal, mild tenderness throughout abdomen Extremity Common normals: normal to inspection and full ROM Neuro Sensorium/orientation: awake Speech: speech normal Psych Appearance: well kempt Attitude: calm Speech: normal speech
--- NOTE | 2024-03-19 11:30 | CM.NOTE ---
Rounds made with Dr. Beck. Dr. Beck discussed need for transfer to Tertiary facility for further medical/surgical management. Mr. Stringer in agreement.
[2024-03-19 11:34] VITALS: BP 147/92; PULSE 80; TEMP 37.1; O2SAT 92
--- NOTE | 2024-03-19 17:38 | P.PN_ITS ---
Progress Note: Subjective Subjective Interval history: Patient stable overnight. Continues to have abdominal discomfort and mild pain. Abdomen remains distended but not as hard. Mild nausea and not passing flatus. NG currently clamped. XR did not show any passage of contrast at 24 hours. Afebrile. Labs stable. Exam Constitutional Vital Signs, click to edit/add: Last Vital Signs Temp 98.7 F 03/19/24 11:34 Pulse 80 03/19/24 11:34 Resp 16 03/19/24 11:34 BP 147/92 H 03/19/24 11:34 Pulse Ox 92 L 03/19/24 11:34 O2 Del Method Room Air 03/19/24 11:34 Documenting provider has reviewed patient's vital signs: yes Common normals: no apparent distress, oriented x3 and alert HENMT Common normals: normocephalic Eye Common normals: PERRL and EOMs intact bilaterally Respiratory Common normals: normal respiratory effort and clear to auscultation bilaterally Cardio Common normals: regular rate, regular rhythm, no gallops, no murmurs and no rub GI Auscultation: hypoactive bowel sounds Palpation: tender (Diffuse TTP); no guarding Extremity Common normals: no pedal edema Progress Note: Objective Labs Labs: Short CBC 03/19/24 Range/Units 04:54 WBC 10.6 (4.0-11.0) 10^3/uL Hgb 13.6 L (14.0-18.0) g/dL Hct 41.4 L (42.0-54.0) % Plt Count 219 (150-450) 10^3/uL BMP 03/19/24 04:54 Sodium 138 Potassium 4.0 Chloride 102 Carbon Dioxide 28.8 BUN 24.0 H Creatinine 1.60 H Glucose 103 Calcium 9.4 Liver Function 03/19/24 Range/Units 04:54 Total Bilirubin 1.3 H (0.2-1.0) mg/dL AST 14 L (15-37) U/L ALT 14 L (16-63) U/L Alkaline Phosphatase 81 (46-116) U/L Albumin 3.1 L (3.4-5.0) g/dL Progress Note: A&P Assessment and Plan (1) Small bowel obstruction: (2) Kidney transplanted: (3) HTN (hypertension): (4) Seizure disorder: (5) CKD stage 3b, GFR 30-44 ml/min: (6) History of DVT (deep vein thrombosis): Plan XR shows continued SBO. NG in place and mild pain. Discussed with surgeon and felt may need surgical intervention. Due to prior renal transplant will need transferred. Contacted [facility] where he follows for kidney transplant and no beds available for several days, then currently had 45 boarding in ER. Contacted [facility] and accepted but also no beds. Patient high priority and will monitor. If deteriorates may need transfer directly to OR. Monitor labs and vitals.
[2024-03-19 20:07] VITALS: BP 160/80; PULSE 62; TEMP 37.3; O2SAT 93
[2024-03-20] MEDS: 0.9 % SODIUM CHLORIDE 1,000 ML 100 ML IV ×2 (02:19→13:53)
[2024-03-20 04:11] VITALS: BP 164/89; PULSE 61; TEMP 37.1; O2SAT 95
--- NOTE | 2024-03-20 05:00 | XR_ITS ---
The [place] [id number] Patient Name: VANDANA NASCIMENTO MRN: [id number] date: 1965 Sex: M Assigned Patient Location: MS Current Patient Location: [place] Accession/Order Number: [id number] Exam Date: 03/20/2024 05:05 Report Date: 03/20/2024 07:03 At the request of: GENIE WALDRON Procedure: XR abdomen min 2V EXAMINATION: XR abdomen min 2V HISTORY: Small Bowel Obstruction COMPARISON: 03/19/2024 FINDINGS: BOWEL GAS PATTERN: Marked dilatation of small bowel loops measuring up to 7.2 cm in diameter. Air-fluid levels. Paucity of air in the colon CALCIFICATIONS: None significant. OTHER: IVC filter. Left vascular stents likely common iliac/external iliac artery. Enteric tube tip projects over the gastric lumen XR/XR abdomen min 2V IMPRESSION: Findings consistent with a small bowel obstruction Electronically authenticated by: AIXA CARLSON Date: 03/20/2024 07:03
[2024-03-20] MEDS: OMEPRAZOLE 40 MG CAPSULE.DR PO (05:07)
[2024-03-20] MEDS: LEVOTHYROXINE SODIUM 125 MCG TABLET PO (05:07)
[2024-03-20 05:50] LABS: Basophils Percent Auto 0.2 % (0.2-2.0); Eosinophils Absolute Auto 0.1 10^3/uL (0.0-0.7); Eosinophils Percent Auto 0.4 % (0.9-7.0); Hematocrit 43.9 % (42.0-54.0); Hemoglobin 14.6 g/dL (14.0-18.0); Immature Granulocytes Abs Auto 0.04 10^3/uL (0.00-0.03); Immature Granulocytes Pct Auto 0.3 % (0.0-0.5); Lymphocytes Absolute Auto 3.9 10^3/uL (1.2-3.8); Lymphocytes Percent Auto 32.6 % (20.5-60.0); Mean Corpuscular HGB Conc 33.3 g/dL (29.9-35.2); Mean Corpuscular Hemoglobin 31.1 pg (25.9-34.0); Mean Corpuscular Volume 93.4 fL (80.0-94.0); Monocytes Percent Auto 8.4 % (1.7-12.0); Neutrophils Absolute Auto 6.9 10^3/uL (1.4-6.5); Neutrophils Percent Auto 58.1 % (43.0-75.0); Platelet Count 171 10^3/uL (150-450); Red Cell Distribution Width 12.1 % (11.0-15.0); White Blood Count 11.8 10^3/uL (4.0-11.0)
[2024-03-20 06:21] LABS: Albumin Globulin Ratio 0.8; Albumin Level 3.2 g/dL (3.4-5.0); Alkaline Phosphatase 83 U/L (46-116); Anion Gap 14.8; Aspartate Amino Transferase 14 U/L (15-37); BUN Creatinine Ratio 17.7; Bilirubin Total 1.6 mg/dL (0.2-1.0); Calcium 9.3 mg/dL (8.5-10.1); Carbon Dioxide 26.4 mmol/L (21.0-32.0); Chloride 102 mmol/L (98-107); Estimated GFR (African America 53 (>=60); Estimated GFR (Non-African Ame 43 (>=60); Globulin 3.8 g/dL; Glucose 97 mg/dL (74-106); Potassium 4.2 mmol/L (3.5-5.1); Sodium 139 mmol/L (136-145)
[2024-03-20 06:23] LABS: Alanine Aminotransferase <6 U/L (16-63)
[2024-03-20 07:49] VITALS: BP 165/87; PULSE 66; O2SAT 92
--- NOTE | 2024-03-20 08:35 | PM.GSPN ---
Progress Note: A&P Assessment and Plan (1) Small bowel obstruction: Assessment and Plan: Continued signs and symptoms of high grade bowel obstruction per KUB and exam this am Discussed with patient the increased concerns and need for surgical intervention. Given his recent kidney transplant and need for continued immunotherapy the patient would be best served at a transplant center that has the necessary supporting teams. He has been accepted to the [facility] and is just waiting for a bed assignment. Discussed with primary service on need for transfer and expediting the process. It is being arranged on very urgent basis and the option of transfer right to OR is available. Cont NGT to LIWS, gaol K+ 4.0, Mg 2.0 encourage ambulation/activity Patients questions answered and he understands the plan (2) Kidney transplanted: (3) HTN (hypertension): (4) Seizure disorder: (5) CKD stage 3b, GFR 30-44 ml/min: (6) History of DVT (deep vein thrombosis): Subjective Subjective Interval history: Pt continues to have abdominal discomfort and distention. Denies any flatus and no BMs. Has been working on being up in chair and walking but his discomfort levels are rising. Exam Constitutional Vital Signs, click to edit/add: Last Vital Signs Temp 98.7 F 03/20/24 04:11 Pulse 66 03/20/24 07:49 Resp 16 03/20/24 07:50 BP 165/87 H 03/20/24 07:49 Pulse Ox 92 L 03/20/24 07:49 O2 Del Method Room Air 03/20/24 07:49 Common normals: average body habitus and oriented x3 [facility] Common normals: normocephalic Head and scalp: atraumatic Other: NGT in place, L nare Respiratory Common normals: normal respiratory effort and no retractions Cardio Common normals: regular rate and regular rhythm GI Other: distended, tender throughout, non peritoneal Extremity Common normals: normal to inspection and full ROM Neuro Sensorium/orientation: awake and alert Psych Appearance: grossly normal and well kempt
[2024-03-20] MEDS: ACETAMINOPHEN 1,000 MG/100 ML PREMIX 400 MG IV (09:20)
[2024-03-20 10:23] VITALS: BP 159/91; PULSE 71; TEMP 37; O2SAT 93
--- NOTE | 2024-03-20 11:58 | CM.NOTE ---
Rounds made with Dr. Beck. Mr. Stringer with continued abdominal pain. Dr. Beck to call [facility] to discuss bed situation.
[2024-03-20 12:13] VITALS: BP 118/55; PULSE 73; TEMP 37; O2SAT 94
--- NOTE | 2024-03-20 13:12 | PC.NURSE ---
called report to [facility] at this time. 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
--- NOTE | 2024-03-20 15:29 | NUTR.NU ---
NPO status continues d/t SBO. Pt may benefit from TPN; recommend Clnimix E 02/26 @ 75 mL/hour to provide 1584 kcal and 90 gm PRO in 1800 mL TV q24 hours.
--- NOTE | 2024-03-20 18:06 | PM.DS1 ---
DS: Providers Provider Date of admission: 03/18/24 04:14 Primary care physician: Saima Walsh MD Consults: 03/18/24 01:25 Consult to General Surgeon Routine Consulting Provider: Curry Roberts Reason for consultation: SBO Has provider been notified: Yes DS: Diagnosis Discharge Diagnosis (1) Small bowel obstruction: (2) Kidney transplanted: (3) HTN (hypertension): (4) Seizure disorder: (5) CKD stage 3b, GFR 30-44 ml/min: (6) History of DVT (deep vein thrombosis): DS: Summary Hospital Course Hospital Course: Reason for admission: See H&P for details. 59 y/o male with history of kidney transplant presents to ER with abdominal pain. Developed nausea and vomiting day prior. Day of admission mild diarrhea. Increased pain in lower abdomen and concerned for SBO which he had in past. To ER WBC normal. CT showed SBO and NG placed. Admitted for treatment. Hospital course: General surgery consulted. Decreased output from NG overnight. Reported abdomen not as painful or distended after decompression. NG currently clamped and no nausea. X-ray small bowel ordered and showed no passage of contrast after 4 hours. Repeat imaging next am unchanged and continued SBO after 24 hours. Discussed with surgeon and concerned will need surgical intervention. Due to prior kidney transplant and potential for complications will need transfer. Contacted [facility] where patient had transplant and follows but no beds available and non anticipated for several days. Contacted [facility] and accepted but again no beds. Patient made high priority and hoped would have a bed in a few days. Next am patient c/o increased pain. Abdomen firm and distended. X-ray unchanged. Contacted [facility] and still no beds. Discussed with surgeon who felt may need to operate soon but no beds available. Contacted [facility] and accepted for transfer. Bed available and transferred in guarded condition. Time Spent with Patient Time attestation: Total time spent providing and/or coordinating discharge services: Time spent: greater than 30 minutes Exam Constitutional Vital Signs, click to edit/add: Last Vital Signs Temp 98.6 F 03/20/24 12:13 Pulse 73 03/20/24 12:13 Resp 16 03/20/24 12:13 BP 118/55 03/20/24 12:13 Pulse Ox 94 L 03/20/24 12:13 O2 Del Method Room Air 03/20/24 12:13 Documenting provider has reviewed patient's vital signs: yes Common normals: no apparent distress, oriented x3 and alert HENMT Common normals: normocephalic Eye Common normals: PERRL and EOMs intact bilaterally Respiratory Common normals: normal respiratory effort and clear to auscultation bilaterally Cardio Common normals: regular rate, regular rhythm, no gallops, no murmurs and no rub GI Auscultation: hypoactive bowel sounds Palpation: firm and tender (Diffuse TTP); no guarding Extremity Common normals: no pedal edema DS: Data Data Completed and Pending Labs on day of discharge: Labs from last 24 hours 03/20/24 05:35 WBC 11.8 H RBC 4.70 Hgb 14.6 Hct 43.9 MCV 93.4 MCH 31.1 MCHC 33.3 RDW 12.1 Plt Count 171 MPV 10.0 Neut % (Auto) 58.1 Lymph % (Auto) 32.6 [place] % (Auto) 8.4 Eos % (Auto) 0.4 L Baso % (Auto) 0.2 Neut # (Auto) 6.9 H Lymph # (Auto) 3.9 H [place] # (Auto) 1.0 H Eos # (Auto) 0.1 Baso # (Auto) 0.0 Abs Immat Gran (auto) 0.04 H Imm/Tot Granulo (auto) 0.3 Sodium 139 Potassium 4.2 Chloride 102 Carbon Dioxide 26.4 Anion Gap 14.8 BUN 29.0 H Creatinine 1.64 H Est GFR ( Amer) 53 L Est GFR (Non-Af Amer) 43 L BUN/Creatinine Ratio 17.7 Glucose 97 Calcium 9.3 Total Bilirubin 1.6 H AST 14 L ALT <6 L Alkaline Phosphatase 83 Total Protein 7.0 Albumin 3.2 L Globulin 3.8 Albumin/Globulin Ratio 0.8 Discharge Plan Discharge Disposition: [facility] Condition: Fair Discharge Date/Time: 03/20/24 14:07 Discharge Location: [facility]
== END 2024-03-20 14:07 | disposition short-term general hospital (02) | DRG 389 ==
LOC: ER 03-18 01:11 → MS 03-18 04:20
PROVIDERS: Nurse Practitioner Acute Care; Admitting Provider Family Medicine; Emergency Provider Emergency Medicine; PCP Family Medicine; Visit Provider Family Medicine
DX: K56.609 Unspecified intestinal obstruction, unspecified as to partial versus complete obstruction (principal); Z94.0 Kidney transplant status; I12.9 Hypertensive chronic kidney disease with stage 1 through stage 4 chronic kidney disease, or unspecified chronic kidney disease; N18.32 Chronic kidney disease, stage 3b; G40.909 Epilepsy, unspecified, not intractable, without status epilepticus; E78.5 Hyperlipidemia, unspecified; Z95.828 Presence of other vascular implants and grafts; Z86.718 Personal history of other venous thrombosis and embolism; Z98.890 Other specified postprocedural states; Z79.01 Long term (current) use of anticoagulants; Z79.899 Other long term (current) drug therapy; Z79.890 Hormone replacement therapy
CPT/HCPCS: 36415; 71045; 74018; 74019; 74176; 74250; 80048; 80053; 81001; 85025; 93005; 96361; 96365; 96375; 96376; 99285; J0131; J0360; J2405; J7512; Q9963